=== PATIENT | female | born 1950 | race Caucasian/White ===

== ENCOUNTER 2024-09-18 10:22 | Observation (INO) | payer MEDICARE, BC, SELFPAY ==
[2024-09-07 08:38] LABS: Absolute Lymphocyte Count 0.54 X10^3/uL (0.83-4.51); Absolute Neutrophil Count 4.3 X10^3/uL (2.0-7.7); Basophil# 0.02 X10^3/uL; Basophil% 0.4 % (0-1); Eosinophil# 0.08 X10^3/uL; Eosinophils% 1.6 % (0-5); Hematocrit 36.3 % (37-47); Hemoglobin 11.8 g/dL (12.0-15.0); Lymphocyte # 0.54 X10^3/ul (0.83-4.51); Lymphocyte % 10.5 % (19-41); Mean Corp Hgb Conc 32.5 g/dL (32-36); Mean Corpuscular Hgb 30.4 pg (27.0-32.0); Mean Corpuscular Volume 93.6 fL (81-99); Mean Platelet Vol. 10.2 fl (6.2-12.0); Monocyte% 3.9 % (0-10); NRBC Flagged by Analyzer 0 % (0-5); Neutrophil # 4.26 X10^3/uL (2.7-7.7); POSITIVE DIFFERENTIAL YES; Platelet Count 267 K/mm3 (150-450); RBC Distribution Width CV 18.5 % (11.6-14.6); RBC Distribution Width SD 62.7 fl (35.1-43.9); Red Blood Count 3.88 M/mm3 (4.2-5.4); White Blood Count 5.1 K/mm3 (4.4-11.0)
[2024-09-07 09:21] LABS: Hepatitis B Surface Antibody Nonreactive
[2024-09-07 09:34] LABS: Anion Gap 12 (5-15); BUN 30 mg/dL (4-19); BUN/Creat Ratio 32.6 RATIO (10-20); Carbon Dioxide 25.5 mmol/L (21.0-32.0); Chloride 102 mmol/L (98-108); Creatinine, Serum 0.91 mg/dL (0.70-1.20); EST Glomerular Filtration Rate 67 (>60); Glucose 71 mg/dL (70-99); HIV Nonreactive (Nonreactive); Hepatitis C Antibody Nonreactive (Nonreactive); Potassium 4.3 mmol/L (3.3-5.1); Sodium Level 139 mmol/L (133-145)
[2024-09-07 10:32] LABS: Magnesium 2.1 mg/dL (1.5-2.2)
[2024-09-07 13:10] LABS: Hemoglobin A1c 6.1 % (<=5.6)
[2024-09-08 05:07] LABS: Hepatitis A AB, Total Negative (Negative)
--- NOTE | 2024-09-10 09:53 | PAT.ANESEVAL ---
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 When Was Last Pacemaker Check QUESTION #4 FULL TEXT: You/Your Family Experience fever (hyperthermia) with Anesthesia Last Oral Intake Last Oral intake: Last Oral Intake NPO since Meds taken in AM with sips of water? 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 - space and missile defense operations: PONV - space and missile defense operations Female Yes 09/04/24 14:18 HX of Motion Sickness No 09/04/24 14:18 HX of N/V After Surgery No 09/04/24 14:18 Non-Smoker Yes 09/04/24 14:18 Duration of Surgery greater Yes 09/04/24 14:18 than 60 minutes Number of Risk Factors 3 09/04/24 14:18 PONV Score Moderate Risk 09/04/24 14:18 Height & Weight Height & Weight: Anesthesia: Height & Weight Height 5 ft 1 in 08/10/24 09:34 Respiratory Assessment Respiratory Assessment - space and missile defense operations: Respiratory Tract Infection Hx - space and missile defense operations Hx Respiratory Tract Infection No 09/04/24 14:18 STOP Sleep Apnea STOP Sleep Apnea - space and missile defense operations: STOP Sleep Apnea - space and missile defense operations Hx Hypertension Yes: CONTROLLED WITH MED 09/04/24 14:18 Hx Sleep Apnea No 09/04/24 14:18 CPAP BIPAP Do you snore loudly (louder No 09/04/24 14:18 than talking or can be heard Do you often feel tired/ No 09/04/24 14:18 fatigued/ sleepy during daytime? Has anyone observed you stop No 09/04/24 14:18 breathing during sleep? STOP Results Negative 09/04/24 14:18 QUESTION #5 FULL TEXT : Do you snore loudly (louder than talking or can be heard through closed doors)? 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 confused, unrespo /Reproduction History /Reproductive History - space and missile defense operations: /Reproductive Hx- space and missile defense operations Hx Now No 09/04/24 14:18 Gestational Age (in weeks): EDC: Hx Hx Para Hx Section SAB No 09/04/24 14:18 PFSH Medical History Wears glasses Post-menopausal Anxiety Alcohol use Dry skin dermatitis Cancer Numbness and tingling in right hand History of steroid therapy Ambulates with cane Rheumatoid arthritis Low iron Restless legs Back pain Migraine headache Blackout Constipation Difficulty swallowing History of ulceration History of IBS Gastric reflux Non-smoker Shortness of breath on exertion Hoarseness Leg cramps Hx of fracture of pelvis History of edema History of stress test Hypertension Home Medications ?Medication ?Instructions ?Recorded ?Last Taken ?Type alprazolam 0.25 mg tablet (Xanax) 0.25 mg PO QHS PRN anxiety 08/10/24 Unknown History atorvastatin 20 mg tablet (Lipitor) 20 mg PO QHS 08/10/24 Unknown History ferrous fumarate 325 mg (106 mg 325 mg PO QDAY 08/10/24 Unknown History iron) tablet furosemide 20 mg tablet 20 mg PO QAM 08/10/24 Unknown History gabapentin 300 mg capsule 300 mg PO TID 08/10/24 Unknown History lisinopril 5 mg tablet 5 mg PO QDAY 08/10/24 Unknown History meloxicam 15 mg tablet 15 mg PO QDAY 08/10/24 Unknown History nortriptyline 25 mg capsule 25 mg PO .QHS' 08/10/24 Unknown History omeprazole 40 mg capsule,delayed 40 mg PO QDAY 08/10/24 Unknown History release tramadol 50 mg tablet 50 mg PO QDAY PRN pain 08/10/24 Unknown History zoledronic acid 5 mg/100 mL in 1 ea IV .QYEAR 08/10/24 Unknown History mannitol 5 %-water intravenous piggybck (Reclast) methotrexate sodium 2.5 mg tablet 20 mg PO MO 09/04/24 Unknown History Allergy/AdvReac Type Severity Reaction Status Date / Time codeine Allergy Mild Constipatio Verified 09/07/24 09:34 n Surgical History History of lumbar spinal fusion Hx of right cataract extraction Hx of left cataract extraction History of repair of hiatal hernia History of esophagogastroduodenoscopy (EGD) Hx of colonoscopy Hx of bilateral salpingo-oophorectomy History of repair of rectocele Hx of hysterectomy Hx of arthroscopy of shoulder Hx of arthroscopy of shoulder Hx of fusion of cervical spine Hx of foot surgery Hx of total knee arthroplasty Hx of total hip arthroplasty Social History Smoking Status: Never smoker Audit: Pertinent Findings Pertinent Findings EKG Perinent findings: September 07, 2024. Normal sinus rhythm. Minimal voltage criteria for LVH. Recommendation Anesthesia Recommendation Anesthesia recommendation: OPTIMIZED for anesthesia
--- NOTE | 2024-09-10 09:53 | PAT.ANESEVAL ---
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 When Was Last Pacemaker Check QUESTION #4 FULL TEXT: You/Your Family Experience fever (hyperthermia) with Anesthesia Last Oral Intake Last Oral intake: Last Oral Intake NPO since Meds taken in AM with sips of water? 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 Has anyone observed you stop No 09/04/24 14:18 breathing during sleep? STOP Results Negative 09/04/24 14:18 QUESTION #5 FULL TEXT : Do you snore loudly (louder than talking or can be heard through closed doors)? 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: /Reproductive Hx- commission auditor Hx Now No 09/04/24 14:18 Gestational Age (in weeks): EDC: Hx Hx Para Hx Section SAB No 09/04/24 14:18 PFSH Medical History Wears glasses Post-menopausal Anxiety Alcohol use Dry skin dermatitis Cancer Numbness and tingling in right hand History of steroid therapy Ambulates with cane Rheumatoid arthritis Low iron Restless legs Back pain Migraine headache Blackout Constipation Difficulty swallowing History of ulceration History of IBS Gastric reflux Non-smoker Shortness of breath on exertion Hoarseness Leg cramps Hx of fracture of pelvis History of edema History of stress test Hypertension Home Medications ?Medication ?Instructions ?Recorded ?Last Taken ?Type alprazolam 0.25 mg tablet (Xanax) 0.25 mg PO QHS PRN anxiety 08/10/24 Unknown History atorvastatin 20 mg tablet (Lipitor) 20 mg PO QHS 08/10/24 Unknown History ferrous fumarate 325 mg (106 mg 325 mg PO QDAY 08/10/24 Unknown History iron) tablet furosemide 20 mg tablet 20 mg PO QAM 08/10/24 Unknown History gabapentin 300 mg capsule 300 mg PO TID 08/10/24 Unknown History lisinopril 5 mg tablet 5 mg PO QDAY 08/10/24 Unknown History meloxicam 15 mg tablet 15 mg PO QDAY 08/10/24 Unknown History nortriptyline 25 mg capsule 25 mg PO .QHS' 08/10/24 Unknown History omeprazole 40 mg capsule,delayed 40 mg PO QDAY 08/10/24 Unknown History release tramadol 50 mg tablet 50 mg PO QDAY PRN pain 08/10/24 Unknown History zoledronic acid 5 mg/100 mL in 1 ea IV .QYEAR 08/10/24 Unknown History mannitol 5 %-water intravenous piggybck (Reclast) methotrexate sodium 2.5 mg tablet 20 mg PO MO 09/04/24 Unknown History Allergy/AdvReac Type Severity Reaction Status Date / Time codeine Allergy Mild Constipatio Verified 09/07/24 09:34 n Surgical History History of lumbar spinal fusion Hx of right cataract extraction Hx of left cataract extraction History of repair of hiatal hernia History of esophagogastroduodenoscopy (EGD) Hx of colonoscopy Hx of bilateral salpingo-oophorectomy History of repair of rectocele Hx of hysterectomy Hx of arthroscopy of shoulder Hx of arthroscopy of shoulder Hx of fusion of cervical spine Hx of foot surgery Hx of total knee arthroplasty Hx of total hip arthroplasty Social History Smoking Status: Never smoker Audit: Pertinent Findings Pertinent Findings EKG Perinent findings: September 07, 2024. Normal sinus rhythm. Minimal voltage criteria for LVH. Recommendation Anesthesia Recommendation Anesthesia recommendation: OPTIMIZED for anesthesia
[2024-09-18] VITALS (21 sets, daily range): BP systolic 96–172; BP diastolic 62–115; PULSE 55–89; RESP 14–20; TEMP 35.8–36.9; O2SAT 2–99; BMI 37.9
--- OUTSIDE RECORDS SUMMARY | 2024-09-18 05:48 | XMS RPT_ITS | CCD ---
Author Organization [facility] Informat ion Partnership [facility] Care Team Providers Care Front End Java Developer Name Role Phone Jasmine Mathias Unavailable Jasmine Mathias Unavailable Antwan Manchester R Unavailable Unavailable Antwan, Delvis R Unavailable Unavailable Antwan, Delvis R Unavailable Unavailable Antwan, Delvis R Unavailable Unavailable Antwan, Manchester R Unavailable Unavailable Antwan Manchester R Unavailable Unavailable Jasmine Mathias Primary Care Provider [phone] Jasmine Mathias Unavailable Unavailable Jasmine Mathias Unavailable Unavailab le Jasmine Mathias Primary Care Provider Jasmine Mathias Unavailable Jasmine Lao Unavailable Savannah Conwaydoroteo Tucker Unavailable [phone] Anais Lugo Unavailable Unavailable Lora Chisholm Unavailable Unavailable Jasmine Mathias Primary Care Provider [phone] Jasmine Mathias Primary Care Provider Jasmine Mathias Unavailable Jasmine Lao Unavailable Jasmine Mathias Unavailable Unavailable Unavailable Jasmine Mathias Unavailable Anders Pierce I Unavailable Unavailable Edison Bartlett Unavailable Jasmine Mathias MD Primary Care Provid er Vic TATUM, Jasmine Ray Unavailable Shilo TATUM, Jasmine Mcclain Unavailable Man TATUM, Caryn Ceballos Unavailable Shilo TATUM, Jasmine Mcclain Unavailable Man TATUM, Caryn Ceballos Unavailable FloragualbertoNena Unavailable Unavailable Vic TATUM, Jasmine Ray Primary Care Provid er Vic TATUM, Jasmine Ray Unavailable Shilo TATUM, Jasmine Mcclain Unavailable Man TATUM, Caryn Ceballos Unavailable Jasmine Mathias MD Primary Care Provider Vic TATUM, Jasmine Ray Primary Care Provid er Vic TATUM, Jasmine Ray Unavailable Shilo ATTUM, Jasmine Mcclain Unavailable Man TATUM, Caryn Ceballos Unavailable Jasmine Mathias MD Primary Care Provider Jasmine Mathias MD Unavailable Dr. Corby Jacobs Attending Unavail able Reynaldo, Dr. Corby Moncada Referring Unavail able Vic, Dr. Jasmine Ray Primary Care Un available Vic, Dr. Jasmine Ray Primary Care Un available Reynaldo, Dr. Corby Moncada Attending Unavail able Reynaldo, Dr. Corby Moncada Referring Unavail able Reynaldo, Dr. Corby Moncada Attending Unavail able Vic, Dr. Jasmine Ray Primary Care Un available Vic, Dr. Jasmine Ray Referring Un available Vic, Dr. Jasmine Ray Attending Un available Vic, Dr. Jasmine Ray Referring Un available Vic, Dr. Jasmine Ray Primary Care Un available Vic, Dr. Jasmine Ray Attending Un available Vic, Dr. Jasmine Ray Referring Un available Long[place], Dr. Jasmine Ray Primary Care Un available [place], Dr. Jasmine Ray Primary Care Un available Jacobs, Dr. Corby Moncada Attending Unavail able Jacobs, Dr. Corby Moncada Referring Unavail able [place], Dr. Jasmine Ray Primary Care Un available [place], Dr. Jasmine Ray Primary Care Un available [place], Dr. Jasmine Ray Attending Un available Kamenik, Ms. Nena Sutherland Attending [facility]. Jasmine Ray Primary Care Un available Kamenik, MsMike Sutherland Attending [facility], Ms. Nena Sutherland Ref[facility] Primary Care Un available [facility] J[facility] Primary Care Un available Mancilla, MsMike Herrera Attending [facility] Mancilla, Ms. Mauricio Herrera Referring U navailable [facility], Dr. Jasmine Ray Primary Care Un available Mancilla, MsMike Herrera Attending U navailable [facility], Dr. Jasmine Ray Attending Un available [place], Dr. Jasmine Ray Primary Care Un available Kamenik, Ms. Nena Sutherland Attending [facility], Dr. Jasmine Ray Primary Care Un available Kamenik, Ms. Nena Sutherland [facility]ending [facility] J[facility] Ray Primary Care Un available [facility] Primary Care Un available Mancilla, MsMike Herrera Attending U navailable Darmfadi, Dr. Mary Carmen Tavarez Admitting [facility], Dr. Mary Carmen Tavarez Attending [facility] Mathias, Dr. Jasmine Ray Primary Care Un available [place], Dr. Jasmine Rya Attending Un available [facility] J[facility] Ray Primary Care Un available RODERICK JETER Referring Unavaila ble VIC, JASMINE RAY Primary Care SKYE Strickland Attending Unavailabl e RODERICK JETER Admitting Unavaila ble THRUSH, BECKIE REYES Attending Unavailable LONGSDTHERESE, JASMINE RAY Primary Care Jie MONCADA, DELVIS RAY Admitting Unavailable LONGROSALVA, JASMINE RAY Primary Care Jie MONCADA, DELVIS RAY Attending Unavailable ANTWAN DELVIS RAY Referring Unavailable RODERICK JETER Attending Unavaila ble LONGSDTHERESE, JASMINE RAY Primary Care RODERICK Juarez Admitting Unavaila ble LONGROSALVA, JASMINE RAY Primary Care Jie MONCADA, DELVIS RAY Admitting Unavailable ANTWAN DELVIS PERNELL Attending Unavailable RODERICK JETER Referring Unavaila RODERICK Shaikh Attending Unavaila ble VIC, JASMINE RAY Primary Care Jasmine Da Silva MD Primary Care Provider Jasmine Mathias MD Unavailable Sukh TATUM, Bryan Unavailable Jasmine Mathias MD Primary Care Provider Sukh TATUM, Bryan Unavailable BRYAN LUZ Referring Unavailable LONGSDORF, JASMINE A Primary Care Unavailab le LONGSDTHERESE, JASMINE Referring Unavailable LONGSDORF, JASMINE Primary Care Unavailable MARY CARMEN TOVAR Attending Unavailable Avelino HORNE, Della Unavailable Unavailable Jasmine Mathias MD Unavailable Bryan Luz MD Unavailable Jasmine Mathias MD Primary Care Provider Avelino HORNE, Della Unavailable Unavailable Sukh TATUM, Bryan Unavailable Jasmine Mathias MD Unavailable LONGSDORF, JASMINE A Primary Care Unavailab le LONGSDORF, JASMINE A Primary Care Unavailab le LONGSDORF, JASMINE A Primary Care Unavailab le LONGSDORF, JASMINE A Primary Care Unavailab le BRYAN LUZ Referring Unavailable LONGSDORF, JASMINE A Primary Care Unavailab le LONGSDORF, JASMINE A Primary Care Unavailab SORAYA Persaud Referring Unavailable LONGSDORF, JASMINE A Primary Care Unavailab kirti TOVARMARY CARMEN Referring Unavailable JOYMARY CARMEN ZIMMERMAN Attending Unavailable VIC, JASMINE Primary Care Unavailable Vic TATUM, Dr. Andre Primary Care Provide r Vic TATUM, Dr. Andre Referring Provider Carolyn Peck Attending Provider Kristyn TATUM, Dr. Escalera Attending Provider [phone] Bakari TATUM, Dr. Rodrigez Attending Provider [phone] VIC, JASMINE A Attending Unavailab le LONGSDORF, JASMINE A Referring Unavailab le LONGSDORF, JASMINE A Primary Care Unavailab BRYAN Zamudio Attending Unavailable MAURICIO MANCILLA Referring Unavailable LONGSDORF, JASMINE A Primary Care Unavailab le LONGSDORF, JASMINE A Attending Unavailab le LONGSDORF, JASMINE A Primary Care Unavailab le SDORF, JASMINE A Attending Unavailab le LONGSDORF, JASMINE A Primary Care Unavailab le LONGSDORF, JASMINE A Attending Unavailab le LONGSDORF, JASMINE A Primary Care Unavailab le SDORF, JASMINE A Attending Unavailab le LONGSDORF, JASMINE A Referring Unavailab le LONGSDORF, JASMINE A Primary Care Unavailab le LONGSDORF, JASMINE A Attending Unavailab le LONGSDORF, JASMINE A Primary Care Unavailab le LONGHIORF, JASMINE A Attending Unavailab le LONGSDORF, JASMINE A Primary Care Unavailab SORAYA Persaud Attending Unavailable LONGSDORF, JASMINE A Referring Unavailab le LONGSDORF, JASMINE A Primary Care Unavailab le LONGSDORF, JASMINE A Attending Unavailab le LONGSDORF, JASMINE A Primary Care Unavailab le JORDAN ESPINOZA Admitting Unavailable JORDAN ESPINOZA Referring Unavailable LONGSDORF, JASMINE RAY Primary Care BAR Marquez JR. Attending Unavailable VIC, JASMINE RAY Primary Care Jie MATHIAS, JASMINE RAY Primary Care MANUELA Hough Attending Unavail able KONG JR., BAR Admitting Unavailable KONG JR., BAR Referring Unavailable LONGSDORF, JASMINE FLOR Primary Care Unaosvaldo TRIANA JR., BAR Attending Unavailable LONGSDORF, JASMINE FLOR Primary Care UnaJORDAN North Attending Unavailable LONGSDORF, JASMINE FLOR Primary Care Unavai lable Longsdorf, Jasmine Primary Care Unavailable Longsdorf, Jasmine Referring Unavailable Elia Villegas Attending Unavailable Longsdorf, Jasmine Primary Care Unavailable Longsdorf, Jasmine Referring Unavailable Carolyn Tabares Attending Unavailable Longsdorf, Jasmine Primary Care Unavailable Elia Villegas Referring Unavailable Kenneth Alexandre Attending Unavailable Longsdorf, Jasmine Primary Care Unavailable Elia Villegas Attending Unavailable Elia Villegas Referring Unavailable Lencho Mancia Unavailable Longsdorf, Jasmine Primary Care Unavailable Jw Simons Attending Unavailable LONGSDORF, JASMINE A Referring Unavailab le LONGSDORF, JASMINE A Primary Care Unavailab SMITH Casarez Attending Unavailable MAURICIO MANCILLA Referring Unavailable LONGSDORF, JASMINE A Primary Care Unavailab CELESTE Eagle Attending Unavailable LONGSDORF, JASMINE A Primary Care Unavailab le LONGSDORF, JASMINE A Referring Unavailab le LONGSDORF, JASMINE A Primary Care Unavailab le LONGSDORF, JASMINE A Referring Unavailab le LONGSDORF, JASMINE A Primary Care Unavailab CELESTE Eagle Attending Unavailable CELESTE MORAN Referring Unavailable LONGSDORF, JASMINE A Primary Care Unavailab CELESTE Eagle Referring Unavailable LONGSDORF, JASMINE A Primary Care Unavailab MARY CARMEN Mack Referring Unavailabl e LONGSDORF, JASMINE A Primary Care Unavailab le LONGSDORF, JASMINE A Primary Care Unavailab MARY CARMEN Mack Referring Unavailabl e LONGSDORF, JASMINE A Primary Care Unavailab SANJUANA Porter Attending Unavailable MAURICIO MANCILLA Attending Unavailable LONGSDORF, JASMINE A Primary Care Unavailab le MAURICIO MANCILLA Attending Unavailable LONGSDORF, JASMINE A Primary Care Unavailab le DONATINI, EMEKA M Attending Unavailable LUZ, XIAOFEI Referring Unavailable LUZ, XIAOFEI Referring Unavailable LONGSDORF, JASMINE A Primary Care Unavailab le LONGSDORF, JASMINE A Referring Unavailab le LONGSDORF, JASMINE A Primary Care Unavailab le LONGSDORF, JASMINE A Referring Unavailab le LONGSDORF, JASMINE A Primary Care Unavailab le LONGSDORF, JASMINE A Primary Care Unavailab SHWETA Youssef Attending Unavailable LUZ, XIAOFEI Referring Unavailable LONGSDORF, JASMINE A Primary Care Unavailab le LUZ, XIAOFEI Referring Unavailable LONGSDORF, JASMINE A Primary Care Unavailab le LUZ, XIAOFEI Referring Unavailable LONGSDORF, JASMINE A Primary Care Unavailab le LUZ, XIAOFEI Referring Unavailable LONGSDORF, JASMINE A Primary Care Unavailab le LUZ, XIAOFEI Referring Unavailable LONGSDORF, JASMINE A Primary Care Unavailab le LUZ, XIAOFEI Referring Unavailable LONGSDORF, JASMINE A Primary Care Unavailab MAURICIO Holguin Attending Unavailable LONGSDORF, JASMINE A Primary Care Unavailab le LUZ, XIAOFEI Referring Unavailable LONGSDORF, JASMINE A Primary Care Unavailab le LONGSDORF, JASMINE A Referring Unavailab le LONGSDORF, JASMINE A Primary Care Unavailab le LONGSDORF, JASMINE A Referring Unavailab le LONGSDORF, JASMINE A Primary Care Unavailab MAURICIO Holguin Attending Unavailable LONGSDORF, JASMINE A Primary Care Unavailab le LONGSDORF, JASMINE A Primary Care Unavailab NENA Abad Attending Unavailable Allergies Allergy Classification Reported Allergen(s) Allergy Type Date of Onset Reaction(s) Facility Amoxicillin / Clavulanate (9 sources) Amoxicillin / Clavulanate; Translations: [Augmentin] Drug Allergy 07-20-19 23 Unknown [facility] and Work Phone: Opioid Agonists (20 sources) Codeine; Translations: [codeine] Drug Allergy 05-26-19 16 Other, Unknown [facility] and Work Phone: (20 sources) codeine; Translations: [codeine] Propensity to adverse reactions to drug 05-05-20 04 Other, Other (See Comments), Drug-induced constipation with proper administration [facility] (20 sources) morphine; Translations: [morphine] Propensity to adverse reactions to drug 05-26-19 16 Unknown [facility] (20 sources) Amoxicillin / Clavulanate; Translations: [Augmentin] Drug Allergy Unknown [facility] Work Phone: (20 sources) Amoxicillin / Clavulanate; Translations: [AMOXICILLIN-PO T CLAVULANATE] Drug Allergy 05-26-19 16 Unknown [facility] Work Phone: (1 source) Codeine Drug Allergy 09-08-19 25 [facility] Repository Medications Current Medications Medication Drug Class(es) Dates Sig (Normalized) Sig (Original) 1.56 ml abaloparatide 2 mg/ml pen injector (1 source) Parathyroid Hormone-Related Peptide Analog Start: 02-03-2023 inject 80 ug by subcutaneous injection once daily Abaloparatide (Tymlos) 3120 MCG/1.56ML Solution Pen-injector Inject 80 mcg under the skin daily. 1.56 mL 02/03/2023 Active 8 hr acetaminophen 650 mg extended release oral tablet (20 sources) take 2 tablets by mouth every eight hours as needed acetaminophen (Tylenol 8 HOUR) 650 mg ER tablet Take 2 tablets (1,300 mg) by mouth every 8 hours if needed for mild pain (1 - 3). Do not crush, chew, or split. Active take 1 tablet by emily th every eight hours as needed acetaminophen (Tylenol 8 HOUR) 650 mg ER tablet Take 1 tablet (650 mg) by mouth every 8 hours if needed for mild pain (1 - 3). Do not crush, chew, or split. Active acetaminophen 325 mg / oxyCODONE hydrochloride 5 mg oral tablet (12 sources) Opioid Agonist Start: 01-13-2023 End: 05-13-2023 take 1 tablet by mouth every four hours as needed oxyCODONE-acetaminophen (Percocet) 5-325 mg tablet Take 1 tablet by mouth every 4 hours if needed. 0 01/13/2023 05/13/2023 Discontinued (Therapy completed) Start: 01-05-2023 End: 01-20-2023 take 1 tablet by mouth every six hours as needed for pain oxyCODONE-acetaminophen (PERCOCET) 5-325 mg per tablet Indications: Post-op pain Take 1 (one) tablet by mouth every 6 (six) hours as needed for pain . 28 tablet 0 01/13/2023 01/20/2023 Active [id number] 200 actuat albuterol 0.09 mg/actuat metered dose inhaler (20 sources) beta2-Adrenergic Agonist Start: 05-18-2024 take 1-2 puff(s) by inhalation every four hours for wheezing albuterol 90 mcg/actuation inhaler Indications: Viral URI with cough Inhale 1-2 puffs every 4 hours if needed for wheezing or shortness of breath. 8.5 g 05/18/2024 Active Start: 05-07-2024 End: 05-07-2025 take 2 puff(s) by inhalation every six hours for wheezing albuterol 90 mcg/actuation inhaler Indications: Acute bronchitis, unspecified organism Inhale 2 puffs every 6 hours if needed for wheezing. 18 g 05/07/2024 05/21/2024 Discontinued (Med List Cleanup) Start: 12-30-2023 take 1-2 puff(s) by inhalation every four hours for wheezing albuterol 90 mcg/actuation inhaler Indications: Viral URI with cough Inhale 1-2 puffs every 4 hours if needed for wheezing or shortness of breath. 8.5 g 12/30/2023 Active Start: 03-26-2021 take 2 puff(s) by in halation twice daily as needed for cough albuterol 90 mcg/inh inhalation aerosol ; 2 puff(s) inhaled 2 times a day as needed for cough Quantity: 8.5 Refills: 0 Ordered: 26-Mar-2021 Nena Aguilar Start: 26-Mar-2021 Generic Substitution Allowed Comments: For inhalation only.It is very important that you take or use this exactly as directed. Do not skip doses or discontinue unless directed by your doctor.Obtain medical advice before taking any non-prescription drugs as some may affect the action of this medication.Shake well before use. Start: 03-26-2021 End: 11-10-2022 albuterol 90 mcg/actuation i nhaler Inhale twice a day. 0 03/26/2021 11/10/2022 Discontinued (Therapy completed) End: 12-30-2023 take 2 puff(s) by inhalation twice daily as needed albuterol 90 mcg/actuation inhaler Inhale 2 puffs 2 times a day as needed. 12/30/2023 Discontinued (Med List Cleanup) Albuterol 90 MCG /ACT AERS Quantity: 0 Refills: 0 Ordered: 16-Dec-2022 DO Active Comment on above: For inhalation only. It is very important that you take or use this exactly as directed. Do not skip doses or discontinue unless directed by your doctor.Obtain medical advice before taking any non-prescription drugs as some may affect the action of this medication.Shake well before use. ALPRAZolam 0.25 mg oral tablet (20 sources) Benzodiazepine Start: 10-07-19 End: 11-10-19 take 1 tablet by mouth at bedtime as needed for anxiety Alprazolam (Xanax) 0.25 mg tablet Active 0.25 mg PO AT BEDTIME as needed for anxiety August 10, 2024 12:00am take 1 tablet by emily th three times daily ALPRAZolam 0.25 mg oral tablet ; 1 tab(s ) orally 3 times a day Quantity: 0 Refills: 0 Ordered: 27-Apr-2019 Emmie Rosario Generic Substitution Allowed apixaban 2.5 mg oral tablet (17 sources) Factor Xa Inhibitor Start: 01-05-2023 End: 03-05-2023 take 1 tablet by mouth twice daily apixaban (Eliquis) 2.5 mg Tab Take 1 (one) tablet (2.5 mg total) by mouth 2 (two) times a day . 60 tablet 02/03/2023 Active atorvastatin 20 mg oral tablet (20 sources) HMG-CoA Reductase Inhibitor Start: 04-08-2015 take 1 tablet by mouth once daily in the morning atorvastatin (LIPITOR) 20 MG tablet Take 1 (one) tablet (20 mg total) by mouth daily AM . 04/08/2015 Active azithromycin 250 mg oral tablet (20 sources) Macrolide Antimicrobial Start: 05-18-2024 End: 05-23-2024 azithromycin (Zithromax) 250 mg tablet Indications: Acute bronchitis, unspecified organism Take 2 tablets (500 mg) by mouth once daily for 1 day, THEN 1 tablet (250 mg) once daily for 4 days. Take 2 tabs (500 mg) by mouth today, than 1 daily for 4 days.. 6 tablet 05/18/2024 05/23/2024 Active Start: 05-07-2024 End: 05-12-2024 azithromycin (Zithromax Z-Pa k) 250 mg tablet Indications: Acute bronchitis, unspecified organism Take 2 tablets (500 mg) on Day 1, followed by 1 tablet (250 mg) once daily on Days 2 through 5. 6 tablet 05/07/2024 05/12/2024 Active Start: 12-30-2023 End: 01-30-2024 azithromycin (Zithromax Z-Pa k) 250 mg tablet Indications: Viral URI with cough Take 2 tablets by mouth at once on day 1, then 1 tablet once a day on days 2-5. Take with a meal. 6 tablet 12/30/2023 01/30/2024 Discontinued (Therapy completed) Start: 08-15-2023 End: 08-20-2023 azithromycin (Zithromax) 250 mg tablet Indications: Acute sinusitis, recurrence not specified, unspecified location Take 2 tablets (500 mg) by mouth once daily for 1 day, THEN 1 tablet (250 mg) once daily for 4 days. Take 2 tabs (500 mg) by mouth today, than 1 daily for 4 days.. 6 tablet 08/15/2023 08/20/2023 Active Start: 12-21-2022 azithromycin ( ZITHROMAX) 250 MG tablet Start: 12-21-2022 End: 12-26-2022 azithromycin (Zithromax) 250 mg tablet Indications: Acute sinusitis, recurrence not specified, unspecified location Take 2 tablets (500 mg) by mouth once daily for 1 day, THEN 1 tablet (250 mg) once daily for 4 days. Take 2 tabs (500 mg) by mouth today, than 1 daily for 4 days.. 6 tablet 0 12/21/2022 12/26/2022 Active Start: 12-08-2022 End: 12-13-2022 take 1 tablet by mouth once daily azithromycin (Zithromax) 500 mg tablet Indications: Seasonal allergies Take 1 tablet (500 mg) by mouth once daily for 5 days. 5 tablet 0 12/08/2022 12/13/2022 Active Start: 05-10-2022 take 2 tablets by mo [facility] once, then take 1 tablet by mouth once daily azithromycin 250 mg oral tablet ; Take 2 tabs (500mg) x 1 days, then 1 tab (250mg) once daily x 4 days Quantity: 6 Refills: 0 Ordered: 10-May-2022 Nena Aguilar Start: 10-May-2022 Generic Substitution Allowed Comments: Do not take dairy products, antacids, or iron preparations within one hour of this medication.Finish all this medication unless otherwise directed by prescriber. Start: 02-17-2022 Azithromycin 2 50 MG Oral Tablet TAKE DIRECTED PER PACKAGE INSTRUCTIONS. Quantity: 1 Refills: 0 Ordered: 17-Feb-2022 Jasmine Mathias MD Start : 17-Feb-2022 Active Start: 05-25-2021 take 1 tablet by mouth once Az ithromycin 250 MG Oral Tablet TAKE DIRECTED PER PACKAGE INSTRUCTIONS. Quantity: 1 Refills: 0 Ordered: 26-Jun-2021 Jasmine Mathias MD Start : 25-May-2021 Active Start: 05-25-2021 Azithromycin 2 50 MG Oral Tablet TAKE DIRECTED PER PACKAGE INSTRUCTIONS. Quantity: 1 Refills: 0 Ordered: 25-May-2021 Jasmine Mathias MD Start : 25-May-2021 Active Start: 02-16-2021 Azithromycin 2 50 MG Oral Tablet TAKE DIRECTED PER PACKAGE INSTRUCTIONS. Quantity: 1 Refills: 0 Ordered: 16-Feb-2021 Jasmine Mathias MD Start : 16-Feb-2021 Active Comment on above: Do not take dairy pr oducts, antacids, or iron preparations within one hour of this medication.Finish all this medication unless otherwise directed by prescriber. benzonatate 200 mg oral capsule (20 sources) Non-narcotic Antitussive Start: 05-07-19 End: 05-21-19 take 1 capsule by mouth three times daily as needed for cough benzonatate (Tessalon) 200 mg capsule Indications: Acute bronchitis, unspecified organism Take 1 capsule (200 mg) by mouth 3 times a day as needed for cough for up to 7 days. Do not crush or chew. 20 capsule 05/07/2024 05/21/2024 Discontinued (Med List Cleanup) Start: 12-30-2023 End: 01-30-2024 take 1-2 capsules by mouth every eight hours for cough benzonatate (Tessalon) 100 mg capsule Indications: Viral URI with cough Take 1-2 capsules (100-200 mg) by mouth every 8 hours if needed for cough. Do not crush or chew. 60 capsule 01/30/2024 Active betamethasone 0.5 mg/ml / clotrimazole 10 mg/ml topical cream (2 sources) Azole Antifungal, Corticosteroid Start: 11-25-2020 End: 11-25-2021 clotrimazole-betamethasone (LOTRISONE) cream Apply topically 2 (two) times a day . 30 g 3 11/25/2020 11/25/2021 Active Start: 04-10-2019 Clotrimazole-B etamethasone 1-0.05 % External Cream APPLY CREAM TO AFFECTED AREA TWICE DAILY FOR 14 DAYS Quantity: 45 Refills: 0 Ordered: 21-Nov-2019 DO Start : 10-Apr-2019 Complete bifidobacterium infantis 4 mg oral capsule (1 source) Start: 09-10-2024 End: 10-10-2024 take 1 capsule by mouth once daily Bifidobacterium infantis (ALIGN) 4 mg capsule Indications: Gastroenteritis Take 1 capsule (4 mg) by mouth once daily. 30 capsule 09/10/2024 10/10/2024 Active calcitonin,salmon,synthet ic (CALCITONIN, SALMON, NASL) (13 sources) End: 11-26-2021 calcitonin,salmon,synthe tic (CALCITONIN, SALMON, NASL) Instill into each nostril. 0 11/26/2021 Discontinued (Therapy completed) calcitonin,salmo n,synthetic (CALCITONIN, SALMON, NASL) Instill into each nostril. 0 Active calcitonin,salmo n,synthetic (CALCITONIN, SALMON, NASL) Instill into each nostril. Active calcium carbonate 1000 mg oral tablet (10 sources) take 1000 mg by mout h once daily calcium carbonate (CALCIUM 500 ORAL) Take 1,000 mg by mouth once daily. Active take 1000 mg by mouth twice chance y calcium carbonate (CALCIUM 500 ORAL) Take 1,000 mg by mouth 2 times a day. Active clopidogrel 75 mg oral tablet (2 sources) P2Y12 Platelet Inhibitor take 1 tablet by mouth once daily clopidogrel 75 mg oral tablet ; 1 tab(s) orally once a day Quantity: 0 Refills: 0 Ordered: 27-Apr-2019 Emmie Rosario Status: Other Generic Substitution Allowed cyclobenzaprine hydrochloride 10 mg oral tablet (20 sources) Muscle Relaxant Start: 10-01-19 End: 07-17-19 take 1 tablet by mouth three times daily as needed for muscle spasms cyclobenzaprine (Flexeril) 10 mg tablet Indications: Right hip pain Take 1 tablet (10 mg) by mouth 3 times a day as needed for muscle spasms. 90 tablet 2 07/16/2024 Active Start: 02-20-2018 cyclobenzaprin e (FLEXERIL) 10 MG tablet Take 0.5 Unspecified by mouth PRN . 02/20/2018 Active diazePAM 5 mg oral tablet (9 sources) Benzodiazepine Start: 04-11-2024 End: 05-21-2024 take 1 tablet by mouth once diazePAM (Valium) 5 mg tablet Indications: Lumbosacral radiculopathy Take 1 tablet (5 mg) by mouth 1 time for 1 dose. One hour before procedure. NEEDS A GRANULATING MACHINE OPERATOR TO AND FROM PROCEDURE 1 tablet 04/11/2024 05/21/2024 Discontinued (Med List Cleanup) Start: 01-25-2023 End: 05-13-2023 take 1 tablet by mouth once diazePAM (Valium) 5 mg tab let Indications: Cervical neuritis , Chronic pain syndrome Take 1 tablet (5 mg) by mouth 1 time for 1 dose. One hour before procedure 1 tablet 0 01/25/2023 05/13/2023 Discontinued (Therapy completed) diclofenac sodium 0.01 mg/mg topical gel (6 sources) Nonsteroidal Anti-inflammatory Drug Start: 07-10-2024 diclofenac sodium (Voltaren) 1 % gel Indications: osteoarthritis Apply topically to effected area for PAIN, STIFFNESS, AND SWELLING. 100 g 1 07/10/2024 Active esomeprazole 40 mg delayed release oral capsule (8 sources) Proton Pump Inhibitor esomeprazo le [address] capsule Take 40 mg by mouth. 0 Active ferrous fumarate 325 mg oral tablet (3 sources) Start: 08-10-2024 take 1 tablet by mouth once daily Ferrous Fumarate 325 mg (106 mg iron) tablet Active 325 mg PO daily August 10, 2024 12:00am ferrous sulfate 325 mg delayed release oral tablet (20 sources) Start: 01-23-2018 take 1 tablet by mouth every other day ferrous sulfate 325 (65 Fe) MG EC tablet Take 1 tablet by mouth every other day. Every other day 01/23/2018 Active Start: 01-23-2018 take 1 tablet by emily th every other day ferrous sulfate 325 (65 Fe) MG EC tablet Take 1 tablet (65 mg) by mouth every other day. Every other day 0 01/23/2018 Active Start: 12-26-2017 End: 03-04-2023 take 1 tablet by mouth every twenty-four hours ferrous sulfate 325 (65 FE) MG EC tablet Take 1 Unspecified by mouth daily AFTERNOON . 01/23/2018 Active folic acid 1 mg oral tablet (20 sources) Start: 01-24-2019 folic acid (FO LVITE) 1 MG tablet Take by mouth AFTERNOON . 01/24/2019 Active Start: 01-24-2019 Folic Acid 1 M G Oral Tablet as directed by Dr Chisholm Quantity: 30 Refills: 0 Ordered: 24-Jan-2019 Jasmine Mathias MD Start : 24-Jan-2019 Active furosemide 20 mg oral tablet (20 sources) Loop Diuretic Start: 12-15-2023 End: 05-14-2024 take 1 tablet by mouth once daily in the morning Furosemide 20 mg tablet Active 20 mg PO EVERY MORNING August 10, 2024 12:00am Start: 06-20-2023 End: 11-10-2023 take 1 tablet by mouth once daily furosemide (Lasix) 20 mg tablet Indications: Edema, unspecified type Take 1 tablet (20 mg) by mouth once daily. 90 tablet 1 11/10/2023 Active Start: 02-01-2022 End: 05-13-2023 take 1 tablet by mouth three times daily as needed furosemide (Lasix) 20 mg tablet Take 1 tablet (20 mg) by mouth 3 times a day as needed (for swelling). 0 02/01/2022 05/13/2023 Discontinued (Reorder) Start: 08-15-2015 End: 11-26-2021 take 1 tablet by mouth once daily furosemide (Lasix) 20 mg tablet Indications: Edema, unspecified type Take 1 tablet (20 mg) by mouth once daily. 90 tablet 1 05/13/2023 Active gabapentin 300 mg oral capsule (20 sources) Anti-epileptic Agent Start: 08-10-2024 take 1 capsule by mouth three times daily Gabapentin 300 mg capsule Active 300 mg PO THREE TIMES A DAY August 10, 2024 12:00am Start: 07-16-2024 take 1 tablet by emily th three times daily gabapentin (Neurontin) 600 mg tablet Indications: Neurogenic claudication due to lumbar spinal stenosis , Lumbosacral radiculopathy Take 1 tablet (600 mg) by mouth 3 times a day. 90 tablet 2 07/16/2024 Active Start: 06-25-2024 End: 07-16-2024 take 1 tablet by mouth three times daily gabapentin (Neurontin) 800 mg tablet Indications: Neurogenic claudication due to lumbar spinal stenosis , Lumbosacral radiculopathy Take 1 tablet (800 mg) by mouth 3 times a day. 90 tablet 2 06/25/2024 07/16/2024 Discontinued (Reorder) Start: 09-22-2023 End: 12-27-2023 gabapentin (Neurontin) 300 m g capsule Indications: Degenerative disc disease, lumbar , Other chronic pain TAKE 2 TABS QAM, 2 TABS IN AFTERNOON, AND 3 AT BEDTIME 540 capsule 09/22/2023 12/27/2023 Discontinued (Therapy completed) Start: 04-05-2023 End: 07-26-2023 take 2 capsules by mouth twice daily gabapentin (Neurontin) 300 mg capsule Indications: Degenerative disc disease, lumbar , Other chronic pain Take 2 capsules (600 mg) by mouth 2 times a day. 360 capsule 1 04/05/2023 07/26/2023 Discontinued (Reorder) Start: 03-26-2015 End: 09-22-2023 take 2 capsules by mouth three times daily gabapentin (NEURONTIN) 300 MG capsule Take 2 (two) capsules (600 mg total) by mouth 3 (three) times a day . 03/26/2015 Active Start: 03-26-2015 End: 02-17-2024 gabapentin 300 MG Cap capsul e Take 1 capsule by mouth. 03/26/2015 02/17/2024 Discontinued gabapentin 300 m g oral capsule ; orally 4 times a day Quantity: 0 Refills: 0 Ordered: 27-Apr-2019 Emmie Rosario Generic Substitution Allowed 2 ml sodium hyaluronate 10 mg/ml prefilled syringe (2 sources) Start: 01-05-2022 End: 11-10-2022 sodium hyaluronate (Euflexxa) 10 mg/mL(mw 2.4 -3.6 million) injection Inject into the joint. 0 01/05/2022 11/10/2022 Discontinued (Therapy completed) leucovorin 15 mg oral tablet (20 sources) Folate Analog Start: 01-24-2019 End: 11-10-2022 leucovorin (Wellcovorin) 15 mg tablet Start: 01-24-2019 Leucovorin Toyin cium 15 MG Oral Tablet USE DIRECTED. Quantity: 30 Refills: 0 Ordered: 24-Jan-2019 Jasmine Mathias MD Start : 24-Jan-2019 Active lisinopril 5 mg oral tablet (20 sources) Angiotensin Converting Enzyme Inhibitor Start: 03-29-2015 take 1 tablet by mouth once daily in the morning lisinopril (PRINIVIL,ZESTRIL) 5 MG tablet Take 1 (one) tablet (5 mg total) by mouth daily AM . 03/29/2015 Active meloxicam 15 mg oral tablet (20 sources) Nonsteroidal Anti-inflammatory Drug Start: 04-03-2018 End: 11-10-2023 take 1 tablet by mouth once daily Meloxicam 15 mg tablet Active 15 mg PO daily August 10, 2024 12:00am methotrexate 2.5 mg oral tablet (20 sources) Folate Analog Metabolic Inhibitor Start: 09-04-2024 Methotrexate Sodium 2.5 mg tablet Active 20 mg PO MO September 04, 2024 12:00am Start: 08-10-2024 End: 09-04-2024 take 2.5 mg by mouth every week Methotrexate 2.5 mg/mL solution Discontinued 2.5 mg PO EVERY WEEK August 10, 2024 12:00am September 04, 2024 2:12pm Start: 01-24-2019 End: 11-10-2022 methotrexate (Trexall) 2.5 m g tablet Take by mouth. 0 01/24/2019 11/10/2022 Discontinued (Therapy completed) Start: 01-24-2019 Methotrexate 2 .5 MG TABS as directed by Dr Chisholm Quantity: 30 Refills: 0 Ordered: 24-Jan-2019 Jasmine Mathias MD Start : 24-Jan-2019 Active take 8 tablets by [facility] every week methotrexate (Trexall) 2.5 mg tablet Take 8 tablets (20 mg total) by mouth 1 (one) time per week. Follow directions carefully, and ask to explain any part you do not understand. Take exactly as directed. Active take 2.5 mg by mouth once daily Methotrexate 2.5 MG/ML oral solution Take 2.5 mg by mouth daily. Active methotrexate 2.5 mg oral tablet Quantity: 0 Refills: 0 Ordered: 27-Apr-2019 Emmie Rosario Generic Substitution Allowed methylPREDNISolone (6 sources) Corticosteroid Start: 07-10-2024 methylPREDNISolone (Medrol Dospak) 4 mg tablets Indications: Right shoulder pain, unspecified chronicity , Acute pain of right shoulder Use as directed by package instructions 21 tablet 07/10/2024 Active multivitamin tablet (10 sources) take 1 tablet by mouth once daily multivitamin tablet Take 1 tablet by mouth once daily. Active naloxone hydrochloride 40 mg/ml nasal spray (11 sources) Opioid Antagonist Start: 01-05-2023 naloxone (NARCAN) 4 mg/actuation [place] Administer 1 spray into one nostril for known or suspected opioid overdose. If patient worsens or does not respond, may repeat in 2-3 minutes. . 2 each 0 01/05/2023 Active naloxone (NARCAN) 4 mg/actuation [place] (4 sources) Start: 01-05-2023 naloxone (NARCAN) 4 mg/actuation [place] Administer 1 spray into one nostril for known or suspected opioid overdose. If patient worsens or does not respond, may repeat in 2-3 minutes. . 2 each 01/05/2023 Active nortriptyline 25 mg oral capsule (20 sources) Tricyclic Antidepressant Start: 08-10-2024 take 1 capsule by mouth once daily at bedtime Nortriptyline 25 mg capsule Active 25 mg PO .[facility] August 10, 2024 12:00am Start: 05-16-2015 End: 05-13-2023 nortriptyline (Pamelor) 25 m g capsule Indications: Chronic pain syndrome TAKE 2 CAPSULES ONE TIME DAILY AT BEDTIME 180 capsule 3 08/22/2024 Active Start: 05-16-2015 nortriptyline 25 MG Cap capsule Take 1 capsule by mouth. 05/16/2015 Active nortriptyline Qu antity: 0 Refills: 0 Ordered: 27-Sep-2022 Sherly Estrada Generic Substitution Allowed omeprazole 40 mg delayed release oral capsule (20 sources) Proton Pump Inhibitor Start: 12-21-2021 End: 05-13-2023 omeprazole (PriLOSEC) [address] capsule Indications: Gastroesophageal reflux disease without esophagitis TAKE 1 CAPSULE EVERY DAY 90 capsule 3 09/05/2024 Active Omeprazole 40 MG Oral Capsule Delayed Release Quantity: 0 Refills: 0 Ordered: 16-Dec-2022 DO Active predniSONE 20 mg oral tablet (20 sources) Start: 05-07-2024 End: 05-12-2024 take 1 tablet by mouth once daily predniSONE (Deltasone) 20 mg tablet Indications: Acute bronchitis, unspecified organism Take 1 tablet (20 mg) by mouth once daily for 5 days. 5 tablet 05/07/2024 05/12/2024 Active Start: 01-30-2024 End: 02-04-2024 take 1 tablet by mouth once daily predniSONE (Deltasone) 20 mg tablet Indications: Pain of right hip , Viral URI with cough Take 1 tablet (20 mg) by mouth once daily for 5 days. 5 tablet 01/30/2024 02/04/2024 Active Start: 10-13-2020 End: 01-25-2023 take 1 tablet by mouth once daily as needed predniSONE (DELTASONE) 10 MG tablet TAKE 1 TABLET BY MOUTH ONCE DAILY NEEDED. TAKE FOR 3 TO 5 DAYS WITH A FLARE. 0 10/13/2020 Active Start: 10-13-2020 predniSONE 10 MG Oral Tablet Quantity: 30 Refills: 0 Ordered: 13-Oct-2020 DO Start : 13-Oct-2020 Active raNITIdine 150 mg oral tablet (3 sources) Histamine-2 Receptor Antagonist Start: 12-26-2017 ranitidine (ZANTAC) 150 MG tablet daily . 01/25/2018 Active 28 actuat teriparatide 0.02 mg/actuat pen injector (1 source) Parathyroid Hormone Analog Start: 02-02-2023 inject 20 ug by subcutaneous injection once daily Teriparatide, Recombinant, (Forteo) 600 MCG/2.4ML Solution Pen-injector Inject 20 mcg under the skin daily. 2.4 mL 11 02/02/2023 Active traMADol hydrochloride 50 mg oral tablet (20 sources) Opioid Agonist Start: 08-10-2024 take 1 tablet by mouth once daily as needed for pain Tramadol 50 mg tablet Active 50 mg PO daily as needed for pain August 10, 2024 12:00am Start: 12-15-2023 take 1 tablet by emily th every eight hours for pain traMADol (Ultram) 50 mg tablet Indications: Chronic pain syndrome Take 1 tablet (50 mg) by mouth every 8 hours if needed for severe pain (7 - 10). 30 tablet 1 12/15/2023 Active Start: 09-28-2023 End: 11-10-2023 take 1 tablet by mouth every eight hours for pain traMADol (Ultram) 50 mg tablet Indications: Chronic pain syndrome Take 1 tablet (50 mg) by mouth every 8 hours if needed for severe pain (7 - 10). 30 tablet 1 11/10/2023 Active Start: 11-10-2015 End: 05-13-2023 take 1 tablet by mouth every eight hours for pain traMADol (Ultram) 50 mg tablet Indications: Chronic pain syndrome Take 1 tablet (50 mg) by mouth every 8 hours if needed for severe pain (7 - 10). 30 tablet 05/13/2023 Active Start: 11-10-2015 take 1 tablet by emily th every six hours as needed for pain traMADol (ULTRAM) 50 mg tablet Take 1 tablet (50 mg total) by mouth every 6 (six) hours as needed for pain. 60 tablet 0 11/10/2015 Active take 1 tablet by emily th every four hours traMADol 50 mg oral tablet ; 1 tab(s) orally every 4 hours Quantity: 0 Refills: 0 Ordered: 27-Apr-2019 Marlene, Emmie Generic Substitution Allowed 100 ml zoledronic acid 0.05 mg/ml injection (20 sources) Bisphosphonate Start: 08-10-2024 Zoledronic Xcvf-Zcyagufu-Mesxo (Reclast) 5 mg/100 mL piggyback Active 1 NMA IV .QYEAR August 10, 2024 12:00am 1 ea intravenously; 100 once yearly Start: 08-10-2024 Zoledronic Aci i-Zrfhemll-Lycjz (Reclast) 5 mg/100 mL piggyback Active NMA .Route August 10, 2024 12:00am 100 once yearly Start: 02-01-2022 End: 02-02-2023 take 100 mL intravenously once zoledronic acid 5 MG/10 0ML Solution Indications: Age-related osteoporosis without current pathological fracture 100 mL by Intravenous route Once for 1 dose. 5 mL 0 02/01/2022 02/02/2023 Discontinued (Therapy completed) Start: 02-20-2019 zoledronic aci d (RECLAST) 5 mg premix IVPB Start: 01-01-2019 End: 01-03-2020 take 100 mL intravenously once zoledronic acid 5 MG/10 0ML Solution Indications: Age-related osteoporosis without current pathological fracture 100 mL by Intravenous route Once for 1 dose. 5 mL 0 01/03/2020 Active Start: 01-16-2018 take 100 mL intraven ous route once zoledronic acid 5 MG/100ML Solution 100 mL by Intravenous route Once for 1 dose. 100 mL 0 01/16/2018 Active End: 05-13-2023 zoledronic acid (Reclast) 5 mg/100 mL piggyback Infuse into a venous catheter. 0 05/13/2023 Discontinued (Med List Cleanup) Completed/Discontinued Medications Medication Drug Class(es) Dates Sig (Normalized) Sig (Original) acetaminophen 325 mg / HYDROcodone bitartrate 5 mg oral tablet (1 source) Opioid Agonist Start: 12-26-2022 End: 12-26-2022 HYDROcodone-aceta minophen ([place]) 5-325 mg per tablet 1 tablet alendronic acid 70 mg oral tablet (1 source) Bisphosphonate Start: 05-06-2015 End: 07-25-2017 alendronate (FOSAMAX) 70 MG tablet Take 70 mg by mouth every 7 days . 05/06/2015 07/25/2017 Discontinued amoxicillin 500 mg oral capsule (1 source) Penicillin-class Antibacterial Start: 01-02-2020 take 1 capsule by mouth four times daily Amoxicillin 500 MG Oral Capsule TAKE 1 CAPSULE BY MOUTH 4 TIMES DAILY UNTIL GONE Quantity: 40 Refills: 0 Ordered: 02-Jan-2020 DO Start : 02-Jan-2020 Complete aspirin 81 mg delayed release oral tablet (20 sources) Nonsteroidal Anti-inflammatory Drug Aspirin 81 MG Oral Tablet Delayed Release Quantity: 0 Refills: 0 Ordered: 13-May-2020 DO Active End: 07-25-2017 Aspirin 81 MG Oral Tablet De layed Release Refills: 0 Active calcium chloride 0.0014 meq/ml / potassium chloride 0.004 meq/ml / sodium chloride 0.103 meq/ml / sodium lactate 0.028 meq/ml injectable solution (1 source) Start: 09-10-2024 End: 09-10-2024 1,000 mL, intravenous, at 999 mL/hr, Administer over 1 Hours, Once, On 09/10/24 at 1705, For 1 dose cephalexin 500 mg oral capsule (4 sources) Cephalosporin Antibacterial Start: 01-07-2023 End: 01-14-2023 take 1 capsule by mouth four times daily cephALEXin (KEFLEX) 500 MG capsule Take 1 (one) capsule (500 mg total) by mouth 4 (four) times a day for 7 days . 28 capsule 0 01/07/2023 01/14/2023 1 ml dexamethasone phosphate 10 mg/ml injection (4 sources) Corticosteroid Start: 06-06-2024 End: 06-06-2024 As needed, Starting on Tue06/06/24 at 1054, Intraprocedure Start: 08-26-2023 End: 08-26-2023 As needed, Starting on Tue at 1306, Intraprocedure Start: 03-04-2023 End: 03-04-2023 dexAMETHasone (PF) (Decadron ) injection 10 mg Disability Placard (15 sources) Start: 11-11-2021 Disability Placard Duration 5 years Quantity: 1 Refills: 0 Ordered: 11-Nov-2021 Jasmine Mathias MD Start : 11-Nov-2021 Active gadoterate meglumine (Dotarem) 0.5 mmol/mL contrast injection 17 mL (1 source) Start: 07-17-2024 End: 07-17-2024 inject 17 mL intravenously once 17 mL, intravenous, Once in imaging, Starting on Tue07/17/24 at 1205, For 1 dose, Administer undiluted as rapid I.V. bolus injection imiquimod 50 mg/ml topical cream (8 sources) Start: 01-04-2018 End: 02-17-2024 imiquimod 5 % Cream 01/04/2018 02/17/2024 Discontinued iohexol (OMNIPaque) 300 mg iodine/mL solution (1 source) Start: 06-06-2024 End: 06-06-2024 As needed, Starting on Tue06/06/24 at 1059, Intraprocedure iohexol (OMNIPaque) 300 mg iodine/mL solution 3 mL (2 sources) Start: 03-04-2023 End: 03-04-2023 iohexol (OMNIPaque) 300 mg iodine/mL solution 3 mL iohexol (OMNIPaque) 300 mg iodine/mL solution 6 mL (1 source) Start: 08-26-2023 End: 08-26-2023 6 mL, miscellaneous, Once in OR, Starting on Tue08/26/23 at 1410, For 1 dose, Intraprocedure 10 ml lidocaine hydrochloride 20 mg/ml injection (6 sources) Antiarrhythmic, Amide Local Anesthetic Start: 06-06-2024 End: 06-06-2024 As needed, Starting on Tue06/06/24 at 1055, Intraprocedure Start: 06-06-2024 End: 06-06-2024 As needed, Starting on Tue at 1055, Intraprocedure Start: 08-26-2023 End: 08-26-2023 120 mg (6 mL), infiltration, Once, On Tue08/26/23 at 1430, For 1 dose, Intraprocedure Start: 08-26-2023 End: 08-26-2023 As needed, Starting on Tue at 1306, Intraprocedure Start: 03-04-2023 End: 03-04-2023 lidocaine PF (Xylocaine) 10 mg/mL (1 %) injection 100 mg loperamide hydrochloride 2 mg oral capsule (2 sources) Opioid Agonist Start: 09-10-2024 End: 09-10-2024 take 4 mg by mouth once 4 mg, oral, Once, On Tue09/10/24 at 1705, For 1 dose Start: 09-10-2024 End: 09-15-2024 take 1 capsule by mouth four times daily as needed for diarrhea loperamide (Imodium) 2 mg capsule Indications: Gastroenteritis Take 1 capsule (2 mg) by mouth 4 times a day as needed for diarrhea for up to 5 days. 21 capsule 09/10/2024 09/15/2024 Active Medrol Dosepak 4 mg oral tablet (1 source) Start: 05-10-2022 Medrol Dosepak 4 mg oral tablet ; Take as directed. Quantity: 1 Refills: 0 Ordered: 10-May-2022 Lauren Nena Start: 10-May-2022 Generic Substitution Allowed Comments: It is very important that you take or use this exactly as directed. Do not skip doses or discontinue unless directed by your doctor.Obtain medical advice before taking any non-prescription drugs as some may affect the action of this medication.Take with food or milk. Comment on above: It is very important that you take or use this exactly as directed. Do not skip doses or discontinue unless directed by your doctor.Obtain medical advice before taking any non-prescription drugs as some may affect the action of this medication.Take with food or milk. 2 ml ondansetron 2 mg/ml injection (16 sources) Serotonin-3 Receptor Antagonist Start: 09-10-2024 End: 09-10-2024 4 mg, intravenous, Once, On Tue09/10/24 at 1705, For 1 dose, When administering via IV Push, administer over 3-5 minutes. Start: 01-05-2023 End: 01-20-2023 take 1 tablet by mouth every six hours as needed for nausea ondansetron (Zofran) 4 MG tablet Take 1 (one) tablet (4 mg total) by mouth every 6 (six) hours as needed for nausea . 28 tablet 1 01/05/2023 Active 24 hr oxybutynin chloride 10 mg extended release oral tablet (1 source) Cholinergic Muscarinic Antagonist End: 07-25-2017 take 1 tablet by mouth once daily oxybutynin (DITROPAN-XL) 10 MG 24 hr tablet Take 10 mg by mouth daily. 07/25/2017 Discontinued oxyCODONE hydrochloride 10 mg oral tablet (1 source) Opioid Agonist End: 07-25-2017 take 10 mg by mouth every twelve hours as needed oxyCODONE (OXYCONTIN) 10 mg 12 hr tablet Take 10 mg by mouth every 12 (twelve) hours as needed for pain. 07/25/2017 Discontinued pregabalin 225 mg oral capsule (20 sources) Start: 06-14-2024 End: 06-25-2024 take 1 capsule by mouth twice daily pregabalin (Lyrica) 225 mg capsule Indications: Lumbosacral radiculopathy Take 1 capsule (225 mg) by mouth 2 times a day. 60 capsule 1 06/14/2024 06/25/2024 Discontinued (Therapy completed) Start: 04-11-2024 take 1 capsule by mo uth twice daily pregabalin (Lyrica) 225 mg capsule Indications: Lumbosacral radiculopathy Take 1 capsule (225 mg) by mouth 2 times a day. 60 capsule 1 04/11/2024 Active Start: 02-02-2024 End: 04-11-2024 take 1 capsule by mouth twice daily pregabalin (Lyrica) 200 mg capsule Indications: Chronic pain syndrome , Degeneration of intervertebral disc of lumbar region, unspecified whether pain present , Lumbosacral radiculopathy Take 1 capsule (200 mg) by mouth 2 times a day. 60 capsule 2 02/02/2024 04/11/2024 Discontinued (Therapy completed) Start: 01-19-2024 End: 02-02-2024 take 1 capsule by mouth twice daily pregabalin (Lyrica) 150 mg capsule Indications: Neurogenic claudication due to lumbar spinal stenosis , Lumbosacral radiculopathy , Degenerative disc disease, lumbar Take 1 capsule (150 mg) by mouth 2 times a day. 60 capsule 1 01/19/2024 02/02/2024 Discontinued (Therapy completed) Start: 11-17-2023 take 1 capsule by mo uth twice daily pregabalin (Lyrica) 150 mg capsule Indications: Neurogenic claudication due to lumbar spinal stenosis , Lumbosacral radiculopathy , Degenerative disc disease, lumbar Take 1 capsule (150 mg) by mouth 2 times a day. 60 capsule 1 11/17/2023 Active 5 ml sodium chloride 9 mg/ml injection (2 sources) Start: 03-04-2023 End: 03-04-2023 sodium chloride (PF) 0.9% solution 5 mL sucralfate 1000 mg oral tablet (17 sources) Aluminum Complex Start: 02-03-2018 take 1 tablet by mouth four times daily Sucralfate 1 GM Oral Tablet TAKE 1 TABLET 4 TIMES DAILY. Quantity: 0 Refills: 0 Ordered: 03-Feb-2018 DO Start : 03-Feb-2018 Active Problems Active Problems Problem Classification Problem Date Documented Date Episodic/Chronic Acquired foot deformities (20 sources) Hammer toe; Translations: [Other hammer toe(s) (acquired), left foot] Onset: 12-27-2022 12-27-2022 Chronic Acquired foot deformities (4 sources) Bunion; Translations: [Bunion of left foot] Onset: 12-27-2022 12-27-2022 Episodic Acquired foot deformities (1 source) Bunion; Translations: [Bunion of right foot] 03-24-2023 Episodic Anxiety disorders (20 sources) Anxiety; Translations: [Anxiety state, unspecified] Onset: 02-02-2022 02-02-2022 Chronic Deficiency and other anemia (2 sources) Anemia, unspecified; Translations: [Anemia, unspecified] Onset: 02-02-2022 Episodic Disorders of lipid metabolism (20 sources) Hypercholesterolemia; Translations: [Pure hypercholesterolemia] Onset: 02-02-2022 02-02-2022 Chronic E Codes: Fall (1 source) Fall; Translations: [Unspecified fall, initial encounter] 12-26-2022 Episodic Esophageal disorders (20 sources) Gastroesophageal reflux disease; Translations: [Esophageal reflux] Onset: 01-22-2022 07-19-2022 Chronic Essential hypertension (20 sources) Essential hypertension; Translations: [Hypertensive disorder] Onset: 06-27-2015 06-27-2015 Chronic Headache; including migraine (1 source) Headache; including migraine; Translations: [Headache, unspecified] Onset: 05-10-2022 Immunizations and screening for infectious disease (20 sources) Patient encounter status; Translations: [Other specified vaccination] 05-13-2023 Episodic Comment on above: Dexa 06/28/17; mammo 06/29/18; colooscopy 01/28/15; Mycoses (1 source) Tinea pedis; Translations: [Tinea pedis] Episodic Noninfectious gastroenteritis (3 sources) Gastroenteritis; Translations: [Noninfective gastroenteritis and colitis, unspecified] Onset: 09-10-2024 09-10-2024 Episodic Nutritional deficiencies (9 sources) Vitamin D deficiency; Translations: [Vitamin D deficiency, unspecified] Onset: 11-04-2023 11-10-2022 Chronic Osteoarthritis (20 sources) Osteoarthritis; Translations: [Osteoarthrosis, generalized, multiple sites] Onset: 07-19-2022 Chronic Osteoporosis (20 sources) Senile osteoporosis; Translations: [Osteoporosis] Onset: 12-13-2017 12-13-2017 Chronic Other acquired deformities (14 sources) Spondylolisthesis; Translations: [Spondylolisthesis, cervical region] Onset: 07-16-2024 07-16-2024 Episodic Other acquired deformities (3 sources) Spondylolisthesis, cervical region; Translations: [Spondylolisthesis, cervical region] Onset: 07-16-2024 Episodic Other aftercare (3 sources) Surgical follow-up; Translations: [Encounter for surgical aftercare following surgery on the digestive system] Episodic Other congenital anomalies (20 sources) Osteopetrosis; 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] Onset: 01-24-2023 01-24-2023 Chronic Other congenital anomalies (4 sources) Osteopetrosis; 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)] Onset: 01-24-2023 Chronic Other connective tissue disease (1 source) Pain in left foot; Translations: [Pain in left foot] Episodic Other connective tissue disease (1 source) Other symptoms and signs involving the musculoskeletal system; Translations: [Oth symptoms and signs involving the musculoskeletal system] Onset: 12-16-2022 Episodic Other connective tissue disease (1 source) History of lumbar fusion; Translations: [Arthrodesis status] 07-26-2023 Episodic Other connective tissue disease (2 sources) History of cervical spine fusion; Translations: [Arthrodesis status] 08-10-2024 Episodic Other connective tissue disease (2 sources) Pain in right foot; Translations: [Pain in right foot] Onset: 08-24-2024 Episodic Other fractures (1 source) Fracture of multiple pubic rami; Translations: [Bilateral pubic rami fractures (HCC)] Episodic Other fractures (1 source) Closed fracture of single right rib; Translations: [Fracture of one rib, right side, initial encounter for closed fracture] 09-30-2022 Episodic Other injuries and conditions due to external causes (2 sources) Injury of toe of right foot; Translations: [Unspecified injury of right foot, initial encounter] 08-24-2024 Episodic Other injuries and conditions due to external causes (2 sources) Unspecified injury of right foot, initial encounter; Translations: [Unspecified injury of right foot, initial encounter] Onset: 08-24-2024 Episodic Other lower respiratory disease (2 sources) Cough 05-10-2022 Episodic Comment on above: COUGH Other nervous system disorders (1 source) Neurogenic claudication; Translations: [Neurogenic claudication due to lumbar spinal stenosis] Chronic Other nervous system disorders (11 sources) Chronic pain syndrome; Translations: [Chronic pain syndrome] Onset: 11-04-2023 11-10-2022 Chronic Other nervous system disorders (3 sources) Chronic pain syndrome; Translations: [Chronic pain syndrome] Onset: 07-19-2022 Chronic Other nervous system disorders (2 sources) Cervical myelopathy; Translations: [Disease of spinal cord, unspecified] 08-10-2024 Chronic Other nervous system disorders (1 source) Disease of spinal cord, unspecified; Translations: [Disease of spinal cord, unspecified] Onset: 08-30-2024 Chronic Other nervous system disorders (2 sources) Other chronic pain; Translations: [Other chronic pain] Onset: 07-19-2022 Chronic Other nervous system disorders (3 sources) Other abnormalities of gait and mobility; Translations: [Other abnormalities of gait and mobility] Onset: 12-16-2022 Episodic Other nervous system disorders (2 sources) Postoperative pain ; Translations: [Other acute postprocedural pain] 01-11-2023 Episodic Other nervous system disorders (2 sources) Neurogenic claudication 06-25-2024 Episodic Other non-traumatic joint disorders (14 sources) Pain in unspecified knee; Translations: [Knee pain] Episodic Other non-traumatic joint disorders (14 sources) Pain in right shoulder; Translations: [Pain in joint, shoulder region] Onset: 06-26-2024 06-26-2024 Episodic Other non-traumatic joint disorders (4 sources) Pain in right hip; Translations: [Pain in right hip] Onset: 12-27-2023 Episodic Other nutritional; endocrine; and metabolic disorders (5 sources) Morbid obesity; Translations: [Obesity, morbid, BMI 40.0-49.9] Onset: 12-13-2017 12-13-2017 Chronic Other nutritional; endocrine; and metabolic disorders (20 sources) Body mass index 30+ - obesity; Translations: [Body Mass Index 34.0-34.9, adult] Onset: 02-02-2022 02-02-2022 Chronic Other nutritional; endocrine; and metabolic disorders (20 sources) Obesity; Translations: [Obesity, unspecified] Onset: 10-09-2022 11-10-2022 Chronic Other nutritional; endocrine; and metabolic disorders (3 sources) Body mass index 40+ - severely obese; Translations: [Morbid (severe) obesity due to excess calories] Onset: 12-13-2017 12-13-2017 Chronic Other nutritional; endocrine; and metabolic disorders (2 sources) Obesity, unspecified; Translations: [Obesity, unspecified] Onset: 02-02-2022 Chronic Other nutritional; endocrine; and metabolic disorders (20 sources) Severe obesity; Translations: [Morbid (severe) obesity due to excess calories] Onset: 10-09-2022 05-13-2023 Chronic Other nutritional; endocrine; and metabolic disorders (2 sources) Morbid (severe) obesity due to excess calories; Translations: [Morbid (severe) obesity due to excess calories (Multi)] Onset: 05-13-2023 Chronic Other nutritional; endocrine; and metabolic disorders (2 sources) Body mass index (BMI) 35.0-35.9, adult; Translations: [Body mass index (BMI) 35.0-35.9, adult] Onset: 05-13-2023 Chronic Other upper respiratory disease (1 source) Seasonal allergy; Translations: [Other seasonal allergic rhinitis] 12-08-2022 Chronic Residual codes; unclassified (20 sources) Chronic pain; Translations: [Other chronic pain] Onset: 07-19-2022 07-19-2022 Chronic Residual codes; unclassified (1 source) Swelling - edema - symptom; Translations: [Edema, unspecified] Onset: 07-19-2022 07-19-2022 Episodic Residual codes; unclassified (8 sources) History of operative procedure on foot; Translations: [Other specified postprocedural states] 01-07-2023 Episodic Rheumatoid arthritis and related disease (20 sources) Rheumatoid arthritis; Translations: [Rheumatoid arthritis] Onset: 07-19-2022 07-19-2022 Chronic Comment on above: Rheumatoid arthritis ; Spondylosis; intervertebral disc disorders; other back problems (20 sources) Degeneration of intervertebral disc; Translations: [Lumbosacral spondylosis] Onset: 07-19-2022 07-19-2022 Chronic Spondylosis; intervertebral disc disorders; other back problems (20 sources) Sciatica; Translations: [Lumbosacral radiculopathy] Onset: 07-19-2022 07-19-2022 Episodic Sprains and strains (1 source) Sprain of foot; Translations: [Sprain of foot, unspecified site] 10-26-2020 Episodic Superficial injury; contusion (3 sources) Contusion of left foot; Translations: [Contusion of left foot, initial encounter] Episodic Thyroid disorders (9 sources) Non-toxic multinodular goiter; Translations: [Nontoxic multinodular goiter] Onset: 12-13-2017 12-13-2017 Chronic Unclassified (20 sources) Patient encounter status; Translations: [Preop cardiovascular exam] Onset: 06-27-2015 06-27-2015 Unclassified (2 sources) LEFT FOOT INJURY 10-26-2020 Comment on above: LEFT FOOT INJURY Unclassified (1 source) POSSIBLE PROLAPSE-SAW DR. BARTLETT [place] 201410-20-2020 Comment on above: POSSIBLE PROLAPSE-SA W DR. BARTLETT [place] 2014 Unclassified (2 sources) 6 MOS CK 05-07-2020 Comment on above: 6 MOS CK Unclassified (1 source) Sprain of left foot 10-26-2020 Unclassified (2 sources) SORE THROAT STUFFY 03-26-2021 Comment on above: SORE THROAT STUFFY Unclassified (1 source) 6 MO FUV 11-11-2021 Comment on above: 6 MO FUV Unclassified (2 sources) RT RIB DISCOMFORT 09-27-2022 Comment on above: RT RIB DISCOMFORT Unclassified (1 source) Cough, unspecified; Translations: [Cough, unspecified] Onset: 05-10-2022 Unclassified (4 sources) Acute pain of right shoulder 06-26-2024 Unclassified (2 sources) Pre-op Exam; Translations: [Pre-op Exam] Onset: 08-31-2024 Unclassified (1 source) Obesity, class 2; Translations: [Obesity, class 2] Onset: 05-13-2023 Unclassified (1 source) Other intervertebral disc degeneration, lumbar region without mention of lumbar back pain or lower extremity pain; Translations: [Other intervertebral disc degeneration, lumbar region without mention of lumbar back pain or lower extremity pain] Onset: 07-19-2022 Past or Other Problems Problem Classification Problem Date Documented Da te Episodic/Chronic Abdominal hernia (2 sources) Diaphragmatic hernia without obstruction or gangrene; Translations: [Diaphragmatic hernia without obstruction or gangrene] Onset: 10-28-202 2 Episodic Acute bronchitis (6 sources) Acute bronchitis; Translations: [Acute bronchitis] Onset: 3 05-10-2022 Episodic Deficiency and other anemia (20 sources) Anemia; Translations: [Anemia, unspecified] Onset: 2 02-02-2022 Episodic E Codes: Natural/environment (1 source) Overexertion from strenuous movement or load, initial encounter; Translations: [Overexertion from strenuous movement or load, init] Onset: 3 Episodic Esophageal disorders (20 sources) Gastroesophageal reflux disease with hiatal hernia; Translations: [Diaphragmatic hernia without obstruction or gangrene] Onset: 2 Episodic Joint disorders and dislocations; trauma-related (20 sources) Dislocation of toe joint; Translations: [Unspecified dislocation of left toe(s), initial encounter] Onset: 3 12-27-2022 Episodic Nonspecific chest pain (1 source) Intercostal pain; Translations: [Intercostal pain] Onset: 3 Episodic Other aftercare (2 sources) Other keno terminal operator (current) drug therapy; Translations: [Other fci (current) drug therapy] Onset: 4 Episodic Other bone disease and musculoskeletal deformities (20 sources) Osteopenia; Translations: [Other specified disorders of bone density and structure, unspecified site] Onset: 3 12-26-2022 Episodic Other circulatory disease (1 source) Other specified symptoms and signs involving the circulatory and respiratory systems; Translations: [Oth symptoms and signs involving the circ and resp systems] Onset: 3 Episodic Other connective tissue disease (20 sources) H/O: arthrodesis; Translations: [Arthrodesis status] Onset: 3 01-24-2023 Episodic Other connective tissue disease (20 sources) Muscle weakness of upper limb; Translations: [Other musculoskeletal symptoms referable to limbs] Onset: 3 01-24-2023 Episodic Other connective tissue disease (6 sources) Arthrodesis status; Translations: [Arthrodesis status] Onset: 3 Episodic Other connective tissue disease (1 source) History of spinal fusion; Translations: [Arthrodesis status] 09-22-2023 Episodic Other connective tissue disease (2 sources) Fibromyalgia; Translations: [Fibromyalgia] Onset: 4 Episodic Other fractures (3 sources) Fracture of one rib, right side, initial encounter for closed fracture; Translations: [Fracture of one rib, right side, init for clos fx] Onset: 3 Episodic Other gastrointestinal disorders (20 sources) Esophageal dysphagia; Translations: [Other dysphagia] Onset: 2 Episodic Other gastrointestinal disorders (20 sources) Heartburn; Translations: [Heartburn] Onset: 2 Episodic Other gastrointestinal disorders (2 sources) Other dysphagia; Translations: [Other dysphagia] Onset: 2 Episodic Other hematologic conditions (20 sources) H/O: anemia; Translations: [Personal history of diseases of blood and blood-forming organs] Resolved: 1 Episodic Other lower respiratory disease (2 sources) Pleurodynia; Translations: [Pleurodynia] Onset: 3 Episodic Other nervous system disorders (20 sources) Impairment of balance; Translations: [Abnormality of gait] Onset: 3 01-24-2023 Episodic Other non-traumatic joint disorders (20 sources) Hip pain; Translations: [Pain in joint, pelvic region and thigh] Onset: 0 Resolved: 1 06-11-2019 Episodic Other screening for suspected conditions (not mental disorders or infectious disease) (10 sources) Encounter for screening mammogram for malignant neoplasm of breast; Translations: [Encntr screen mammogram for malignant neoplasm of breast] Onset: 2 Episodic Other upper respiratory infections (20 sources) Acute sinusitis; Translations: [Acute sinusitis, unspecified] Onset: 4 08-15-2023 Episodic Residual codes; unclassified (20 sources) History of fundoplication; Translations: [Other specified postprocedural states] Onset: 2 Episodic Residual codes; unclassified (20 sources) Edema; Translations: [Edema] Onset: 3 07-19-2022 Episodic Residual codes; unclassified (2 sources) Other specified postprocedural states; Translations: [Other specified postprocedural states] Onset: 2 Episodic Residual codes; unclassified (4 sources) Edema, unspecified; Translations: [Edema, unspecified] Onset: 3 Episodic Residual codes; unclassified (2 sources) Pain, unspecified; Translations: [Pain, unspecified] Onset: 5 Episodic Syncope (3 sources) Syncope; Translations: [Syncope and collapse] Onset: 4 03-12-2024 Episodic Unclassified (20 sources) Onset: 3 Resolved: 5 09-30-2022 Unclassified (1 source) Obesity, class 2; Translations: [Obesity, class 2] Onset: 5 Unclassified (1 source) Other intervertebral disc degeneration, lumbar region without mention of lumbar back pain or lower extremity pain; Translations: [Other intervertebral disc degeneration, lumbar region without mention of lumbar back pain or lower extremity pain] Onset: 4 NEGATED: Highlighted row has not occurred!Residual codes; unclassified (19 sources) Disease Episodic Results Test Name Value Interpretation Reference Range Facility CLOSTRIDIUM DIFFICILE TOXINB ,QL REAL TIME PCRon 09-14-2024 CLOSTRIDIUM DIFFICILE TOXINB,QL REAL TIME PCR Not detected Normal NOT DETECTED [facility] Comment on above: Order Comment: SPLIT 09/10/2024 FROM [id number] Result Comment: This test is for use only with liquid or soft stools; performance characteristics of other clinical specimen types have not been established. This assay was performed by [employer]. The performance characteristics of this assay have been determined by [employer]. Performance characteristics refer to the analytical performance of the test. For additional information, please refer to [email or web address] (This link is being provided for informational/educational purposes only.) Performed By: #### 6 55, 85273, [id number] #### [facility] [address], [address] [place] [id number] Building Specialist: Eric Handley MD GIARDIA AND CRYPTOSPORIDIUM ANTIGEN PANELon 09-14-2024 CRYPTOSPORIDIUM ANTIGEN, EIA SEE NOTE Normal [facility] Comment on above: Result Comment: CRYPTOSPORIDIUM ANTIGEN, EIA Micro Number: [id number] Test Status: Final Specimen Source: Stool Specimen Quality: Adequate Cryptosporidium: Not Detected Reference Range: Not Detected NOTE: Due to intermittent shedding, one negative sample does not necessarily rule out the presence of a parasitic infection. Performed By: #### 6 81, 84938, 47459 #### [facility] [place] [address] Building Specialist: Eric Handley MD GIARDIA AG, EIA, STOOL SEE NOTE Normal [facility] Comment on above: Result Comment: GIARDIA AG, EIA, STOOL Micro Number: [id number] Test Status: Final Specimen Source: Stool Specimen Quality: Adequate Giardia Result 1: Not Detected Reference Range: Not Detected NOTE: Due to intermittent shedding, one negative sample does not necessarily rule out the presence of a parasitic infection. Performed By: #### 6 81, 71631, 07020 #### [facility] [place] [address] Building Specialist: Eric Handley MD OVA AND PARASITES, CONC AND PERM SMEARon 09-14-2024 CONCENTRATE (1) SEE NOTE Normal [facility] Comment on above: Performed By: #### 6 81, 38435, 26202 #### [facility] [place] [address] Building Specialist: Eric Handley MD TRICHROME (1) SEE NOTE Normal [facility] Comment on above: Performed By: #### 6 81, 26429, 46932 #### [facility] [place] [address] Building Specialist: Eric Handley MD GASTROINTESTINAL PATHOGEN PA LESLIE, REAL TIME PCRon 09-11-2024 [employer] Not detected Normal NOT DETECTED [facility] Comment on above: Order Comment: COLLE CTION KIT GIVEN TO PATIENT. PATIENT ADVISED TO RETURN. Performed By: #### 3 3570 #### [facility] [place] [address] Building Specialist: Eric Handley MD NOROVIRUS GI/GII Not detected Normal NOT DETECTED [facility] Comment on above: Order Comment: COLLE CTION KIT GIVEN TO PATIENT. PATIENT ADVISED TO RETURN. Performed By: #### 3 2570 #### [facility] [place] [address] Building Specialist: Eric Handley MD ROTAVIRUS A Not detected Normal NOT DETECTED [facility] Comment on above: Order Comment: COLLE CTION KIT GIVEN TO PATIENT. PATIENT ADVISED TO RETURN. Result Comment: Orga nisms included in the Campylobacter group include C. coli, C. jejuni, and C. sydney. Organisms included in the Shigella species include S. dysenteriae, S. boydii, S. sonnei, and S. flexneri. Organisms included in the Vibrio group include V. cholerae and V. parahaemolyticus. Performed By: #### 3 8470 #### [facility] [place] [address] Building Specialist: Eric Handley MD SALMONELLA SPECIES Not detected Normal NOT DETECTED [facility] Comment on above: Order Comment: COLLE CTION KIT GIVEN TO PATIENT. PATIENT ADVISED TO RETURN. Performed By: #### 3 8470 #### [facility] [place] [address] Building Specialist: Eric Handley MD SHIGA TOXIN 1 Not detected Normal NOT DETECTED [facility] Comment on above: Order Comment: COLLE CTION KIT GIVEN TO PATIENT. PATIENT ADVISED TO RETURN. Performed By: #### 3 8470 #### [facility] [place] [address] Building Specialist: Eric aHndley MD SHIGA TOXIN 2 Not detected Normal NOT DETECTED [facility] Comment on above: Order Comment: COLLE CTION KIT GIVEN TO PATIENT. PATIENT ADVISED TO RETURN. Performed By: #### 3 8470 #### [facility] [place] [address] Building Specialist: Eric Handley MD SHIGELLA SPECIES Not detected Normal NOT DETECTED [facility] Comment on above: Order Comment: COLLE CTION KIT GIVEN TO PATIENT. PATIENT ADVISED TO RETURN. Performed By: #### 3 8470 #### [facility] [place] [address] Building Specialist: Eric Handley MD VIBRIO GROUP Not detected Normal NOT DETECTED [facility] Comment on above: Order Comment: COLLE CTION KIT GIVEN TO PATIENT. PATIENT ADVISED TO RETURN. Performed By: #### 3 8470 #### [facility] [address] [place] [address], [address] [place] [address] Building Specialist: Eric Handley MD YERSINIA ENTEROCOLITICA Not detected Normal NOT DETECTED [facility] Comment on above: Order Comment: COLLE CTION KIT GIVEN TO PATIENT. PATIENT ADVISED TO RETURN. Performed By: #### 3 8470 #### [facility] [address] [place], [place] [address] Rd, [address] [place] [address] Building Specialist: Eric Handley MD CBC W Auto Differential pane l (Bld)on 09-10-2024 Basophils (Bld) [#/Vol] 0.01 10*3/uL [facility] Basophils/100 WBC (Bld) 0.2 % 0.0 - 2.0 % [facility] Eosinophils (Bld) [#/Vol] 0.05 10*3/uL [facility] Eosinophils/100 WBC (Bld) 0.8 % 0.0 - 6.0 % [facility] Erythrocyte distribution width (RBC) [Ratio] 18.4 % High 11.5 - 14.5 % [facility] Hematocrit (Bld) [Volume fraction] 34.2 % Low 36.0 - 46.0 % [facility] Hemoglobin (Bld) [Mass/Vol] 10.9 g/dL Low 12.0 - 16.0 g/dL [facility] Immature granulocytes (Bld) [#/Vol] 0.02 10*3/uL [facility] Immature granulocytes/100 WBC (Bld) 0.3 % 0.0 - 0.9 % [facility] Comment on above: Immature Granulocyte Count (IG) includes promyelocytes, myelocytes and metamyelocytes but does not include bands. Percent differential counts (%) should be interpreted in the context of the absolute cell counts (cells/UL). Interpretation and review of laboratory results Abnormal [facility] Lymphocytes (Bld) [#/Vol] 0.93 10*3/uL [facility] Lymphocytes/100 WBC (Bld) 14.5 % 13.0 - 44.0 % [facility] MCH (RBC) [Entitic mass] 30.5 pg 26.0 - 34.0 pg [facility] MCHC (RBC) [Mass/Vol] 31.9 g/dL Low 32.0 - 36.0 g/dL [facility] MCV (RBC) [Entitic vol] 96 fL 80 - 100 fL [facility] Monocytes (Bld) [#/Vol] 0.62 10*3/uL [facility] Monocytes/100 WBC (Bld) 9.7 % 2.0 - 10.0 % [facility] Neutrophils (Bld) [#/Vol] 4.79 10*3/uL [facility] Comment on above: Percent differential counts (%) should be interpreted in the context of the absolute cell counts (cells/uL). Neutrophils/100 WBC (Bld) 74.5 % 40.0 - 80.0 % [facility] Nucleated RBC/100 WBC (Bld) [Ratio] 0 % [facility] Platelets (Bld) [#/Vol] 242 10*3/uL [facility] RBC (Bld) [#/Vol] 3.57 10*6/uL [facility] WBC (Bld) [#/Vol] 6.4 10*3/uL [facility] Basophils (Bld) [#/Vol] 0.01 x10*3/uL Normal 0.00-0.10 [facility] Comment on above: Performed By: #### 5 7021-8 ####CHARLES COYNE ([id number])[facility] ([facility])[address] [place] [address] 36497 Basophils/100 WBC (Bld) 0.2 % Normal 0.0-2.0 [facility] Comment on above: Performed By: #### 5 7021-8 ####CHARLES COYNE ([id number])[facility] ([facility])[address] [place] [address]223 Eosinophils (Bld) [#/Vol] 0.05 x10*3/uL Normal 0.00-0.40 [facility] Comment on above: Performed By: #### 5 7021-8 ####CHARLES COYNE ([id number])[facility] ([facility])[address] [place] [address] 00467 Eosinophils/100 WBC (Bld) 0.8 % Normal 0.0-6.0 [facility] Comment on above: Performed By: #### 5 7021-8 ####CHARLES COYNE ([id number])[facility] ([facility])[address] [place] [address] 15003 Erythrocyte distribution width (RBC) [Ratio] 18.4 % High 11.5-14.5 [facility] Comment on above: Performed By: #### 5 7021-8 ####CHARLES COYNE ([id number])[facility] ([facility])[address] [place] [address] 14541 Hematocrit (Bld) [Volume fraction] 34.2 % Low 36.0-46.0 [facility] Comment on above: Performed By: #### 5 7021-8 ####CHARLES COYNE ([id number])[facility] ([facility])[address] [place] [address] 66979 Hemoglobin (Bld) [Mass/Vol] 10.9 g/dL Low 12.0-16.0 [facility] Comment on above: Performed By: #### 5 7021-8 ####CHARLES COYNE ([id number])[facility] ([facility])[address] [place] [address] 06264 Immature granulocytes (Bld) [#/Vol] 0.02 x10*3/uL Normal 0.00-0.50 [facility] Comment on above: Performed By: #### 5 7021-8 ####CHARLES COYNE ([id number])[facility] ([facility])[address] [place] [address] 24369 Immature granulocytes/100 WBC (Bld) 0.3 % Normal 0.0-0.9 [facility] Comment on above: Result Comment: Karla ture Granulocyte Count (IG) includes promyelocytes, myelocytes and metamyelocytes but does not include bands. Percent differential counts (%) should be interpreted in the context of the absolute cell counts (cells/UL). Performed By: #### 5 7021-8 ####CHARLES COYNE ([id number])[facility] ([facility])[address] [place] [address]648 Lymphocytes (Bld) [#/Vol] 0.93 x10*3/uL Normal 0.80-3.00 [facility] Comment on above: Performed By: #### 5 7021-8 ####CHARLES COYNE ([id number])[facility] ([facility])[address] [place] [address] 37249 Lymphocytes/100 WBC (Bld) 14.5 % Normal 13.0-44.0 [facility] Comment on above: Performed By: #### 5 7021-8 ####CHARLES COYNE ([id number])[facility] ([facility])[address] [place] [address] 63430 MCH (RBC) [Entitic mass] 30.5 pg Normal 26.0-34.0 [facility] Comment on above: Performed By: #### 5 7021-8 ####CHARLES COYNE ([id number])[facility] ([facility])[address] [place] [address] 57751 MCHC (RBC) [Mass/Vol] 31.9 g/dL Low 32.0-36.0 [facility] Comment on above: Performed By: #### 5 7021-8 ####CHARLES COYNE ([id number])[facility] ([facility])[address] [place] [address] 83210 MCV (RBC) [Entitic vol] 96 fL Normal 80-100 [facility] Comment on above: Performed By: #### 5 7021-8 ####CHARLES COYNE ([id number])[facility] ([facility])[address] [place] [address] 41939 Monocytes (Bld) [#/Vol] 0.62 x10*3/uL Normal 0.05-0.80 [facility] Comment on above: Performed By: #### 5 7021-8 ####CHARLES COYNE ([id number])[facility] ([facility])[address] [place] [address] 84691 Monocytes/100 WBC (Bld) 9.7 % Normal 2.0-10.0 [facility] Comment on above: Performed By: #### 5 7021-8 ####CHARLES COYNE ([id number])[facility] ([facility])[address] [place] [address] 66767 Neutrophils (Bld) [#/Vol] 4.79 x10*3/uL Normal 1.60-5.50 [facility] Comment on above: Result Comment: Perc ent differential counts (%) should be interpreted in the context of the absolute cell counts (cells/uL). Performed By: #### 5 7021-8 ####CHARLES COYNE ([id number])[facility] ([facility])[address] [place] [address] 73099 Neutrophils/100 WBC (Bld) 74.5 % Normal 40.0-80.0 [facility] Comment on above: Performed By: #### 5 7021-8 ####CHARLES COYNE ([id number])[facility] ([facility])[address] [place] [address] 59051 Nucleated RBC/100 WBC (Bld) [Ratio] 0.0 /100 WBCs Normal 0.0-0.0 [facility] Comment on above: Performed By: #### 5 7021-8 ####CHARLES COYNE ([id number])[facility] ([facility])[address] [place] [address] 56040 Platelets (Bld) [#/Vol] 242 x10*3/uL Normal 150-450 [facility] Comment on above: Performed By: #### 5 7021-8 ####CHARLES COYNE ([id number])[facility] ([facility])[address] [place] [address] 64410 RBC (Bld) [#/Vol] 3.57 x10*6/uL Low 4.00-5.20 [facility] Comment on above: Performed By: #### 5 7021-8 ####CHARLES COYNE ([id number])[facility] ([facility])[address] [place] [address] WBC (Bld) [#/Vol] 6.4 x10*3/uL Normal 4.4-11.3 [facility] Comment on above: Performed By: #### 5 7021-8 ####CHARLES COYNE ([id number])[facility] ([facility])[address] [place] [id number] Comprehensive metabolic 2000 panelon 09-10-2024 Albumin BCP dye [Mass/Vol] 3.7 g/dL 3.4 - 5.0 g/dL [facility] ALP [Catalytic activity/Vol] 57 U/L 33 - 136 U/L [facility] ALT With P-5'-P [Catalytic activity/Vol] 29 U/L 7 - 45 U/L [facility] Comment on above: Patients treated wit h Sulfasalazine may generate falsely decreased results for ALT. Anion gap [Moles/Vol] 9 mmol/L Low 10 - 20 mmol/L [facility] AST With P-5'-P [Catalytic activity/Vol] 32 U/L 9 - 39 U/L [facility] Bilirubin [Mass/Vol] 0.3 mg/dL 0.0 - 1.2 mg/dL [facility] Calcium [Mass/Vol] 7.1 mg/dL Low 8.6 - 10. 3 mg/dL [facility] Chloride [Moles/Vol] 107 mmol/L 98 - 107 mmol/L [facility] CO2 [Moles/Vol] 25 mmol/L 21 - 32 mmol/L [facility] Creatinine [Mass/Vol] 0.76 mg/dL 0.50 - 1.05 mg/dL [facility] GFR/1.73 sq M.predicted among non-blacks MDRD (S/P/Bld) [Vol rate/Area] 83 mL/min/{1.73_m2} - PINF [facility] Comment on above: Calculations of taye mated GFR are performed using the 2020 CKD-EPI Study Refit equation without the race variable for the IDMS-Traceable creatinine methods. https://jasn.asnjournals.org/content//ASN.796363843 8 Glucose [Mass/Vol] 112 mg/dL High 74 - 99 mg/dL [facility] Potassium [Moles/Vol] 3.8 mmol/L 3.5 - 5.3 mmol/L [facility] Protein [Mass/Vol] 6 g/dL Low 6.4 - 8.2 g/dL [facility] Sodium [Moles/Vol] 137 mmol/L 136 - 145 mmol/L [facility] Urea nitrogen [Mass/Vol] 21 mg/dL 6 - 23 mg/dL [facility] Albumin BCP dye [Mass/Vol] 3.7 g/dL Normal 3.4-5.0 [facility] Comment on above: Performed By: #### 2 4323-8 ####CHARLES COYNE ([id number])[facility] ([facility])[address] [place] [address] 76450 ALP [Catalytic activity/Vol] 57 U/L Normal 33-136 [facility] Comment on above: Performed By: #### 2 4323-8 ####CHARLES COYNE ([id number])[facility] ([facility])[address] [place] [address] 12295 ALT With P-5'-P [Catalytic activity/Vol] 29 U/L Normal 7-45 [facility] Comment on above: Result Comment: Lori ents treated with Sulfasalazine may generate falsely decreased results for ALT. Performed By: #### 2 4323-8 ####CHARLES COYNE ([id number])[facility] ([facility] [place] [address] Anion gap [Moles/Vol] 9 mmol/L Low 10-20 [facility] Comment on above: Performed By: #### 2 4323-8 ####CHARLES COYNE ([id number])[facility] ([facility])[address] [place] [address] 80122 AST With P-5'-P [Catalytic activity/Vol] 32 U/L Normal 9-39 [facility] Comment on above: Performed By: #### 2 4323-8 ####CHARLES COYNE ([id number])[facility] ([facility])[address] [place] [address] Bilirubin [Mass/Vol] 0.3 mg/dL Normal 0.0-1.2 [facility] Comment on above: Performed By: #### 2 4323-8 ####CHARLES COYNE ([id number])[facility] ([facility])[address] [place] [address] 46775 Calcium [Mass/Vol] 7.1 mg/dL Low 8.6-10.3 [facility] Comment on above: Performed By: #### 2 4323-8 ####CHARLES COYNE ([id number])[facility] ([facility])[address] [place] [address] 11510 Chloride [Moles/Vol] 107 mmol/L Normal 98-107 [facility] Comment on above: Performed By: #### 2 4323-8 ####CHARLES COYNE ([id number])[facility] ([facility])[address] [place] [address] 04741 CO2 [Moles/Vol] 25 mmol/L Normal 21-32 [facility] Comment on above: Performed By: #### 2 4323-8 ####CHARLES COYNE ([id number])[facility] ([facility])[address] [place] [address] 28394 Creatinine [Mass/Vol] 0.76 mg/dL Normal 0.50-1.05 [facility] Comment on above: Performed By: #### 2 4323-8 ####CHARLES COYNE ([id number])[facility] ([facility])[address] [place] [address] 89122 Glomerular filtration rate/1.73 sq M.predicted 83 mL/min/1.73m*2 Normal >60 [facility] Comment on above: Result Comment: Calc ulations of estimated GFR are performed using the 2020 CKD-EPI Study Refit equation without the race variable for the IDMS-Traceable creatinine methods. https://jasn.asnjournals.org/content/early//ASN.509949225 8 Performed By: #### 2 4323-8 ####CHARLES COYNE ([id number])[facility] ([facility])[address] [place] [address] 19966 Glucose [Mass/Vol] 112 mg/dL High 74-99 [facility] Comment on above: Performed By: #### 2 4323-8 ####CHARLES COYNE ([id number])[facility] ([facility])[address] [place] [address] 07936 Potassium [Moles/Vol] 3.8 mmol/L Normal 3.5-5.3 [facility] Comment on above: Performed By: #### 2 4323-8 ####CHARLES COYNE ([id number])[facility] ([facility])[address] [place] [address] 87949 Protein [Mass/Vol] 6.0 g/dL Low 6.4-8.2 [facility] Comment on above: Performed By: #### 2 4323-8 ####CHARLES COYNE ([id number])[facility] ([facility])[address] [place] [address] 49744 Sodium [Moles/Vol] 137 mmol/L Normal 136-145 [facility] Comment on above: Performed By: #### 2 4323-8 ####CHARLES COYNE ([id number])[facility] ([facility])[address] [place] [address] 92688 Urea nitrogen [Mass/Vol] 21 mg/dL Normal 6-23 [facility] Comment on above: Performed By: #### 2 4323-8 ####CHARLES COYNE ([id number])[facility] ([facility])[address] [place] [address] 46542 Lactateon 09-10-2024 Lactate [Moles/Vol] 0.5 mmol/L 0.4 - 2.0 mmol/L [facility] Lactate [Moles/Vol] 0.5 mmol/L Normal 0.4-2.0 [facility] Comment on above: Order Comment: Venip uncture immediately after or during the administration of Metamizole may lead to falsely low results. Testing should be performed immediately prior to Metamizole dosing. Performed By: #### 2 524-7 ####SOTO STANFORD ([id number])[facility] ([facility])[address] [place] [address] Lactate [Moles/Vol]on 2024 Venipuncture immedia tely after or during the administration of Metamizole may lead to falsely low results. Testing should be performed immediately prior to Metamizole dosing. [facility] MR/PAT.ANEon 09-10-2024 MR/PAT.ANE [facility] Medical Records Department [address] [place] [address] PAT - Anesthesia 09/10/24 0953 MR#: [id number] Acct: [id number] Name: NARENDRA ARGUELLES Rep #: [id number] : 1950 73 From: Balta Ren MD PCP: Dr. 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 When Was Last Pacemaker Check QUESTION #4 FULL TEXT: You/Your Family Experience fever (hyperthermia) with Anesthesia Last Oral Intake Last Oral intake: Last Oral Intake NPO since Meds taken in AM with sips of water? 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 - boilers and pressure vessels inspector: PONV - boilers and pressure vessels inspector Female Yes 09/04/24 14:18 HX of Motion Sickness No 09/04/24 14:18 HX of N/V After Surgery No 09/04/24 14:18 Non-Smoker Yes 09/04/24 14:18 Duration of Surgery greater Yes 09/04/24 14:18 than 60 minutes Number of Risk Factors 3 09/04/24 14:18 PONV Score Moderate Risk 09/04/24 14:18 Height Weight Height Weight: Anesthesia: Height Weight Height 5 ft 1 in 08/10/24 09:34 Respiratory Assessment Respiratory Assessment - boilers and pressure vessels inspector: Respiratory Tract Infection Hx - boilers and pressure vessels inspector Hx Respiratory Tract Infection No 09/04/24 14:18 STOP Sleep Apnea STOP Sleep Apnea - boilers and pressure vessels inspector: STOP Sleep Apnea - boilers and pressure vessels inspector Hx Hypertension Yes: CONTROLLED WITH MED 09/04/24 14:18 Hx Sleep Apnea No 09/04/24 14:18 CPAP BIPAP Do you snore loudly (louder No 09/04/24 14:18 than talking or can be heard Do you often feel tired/ No 09/04/24 14:18 fatigued/ sleepy during daytime? Has anyone observed you stop No 09/04/24 14:18 breathing during sleep? STOP Results Negative 09/04/24 14:18 QUESTION #5 FULL TEXT : Do you snore loudly (louder than talking or can be heard through closed doors)? Tobacco Use History Tobacco Use History - boilers and pressure vessels inspector: Tobacco Use History - boilers and pressure vessels inspector Tobacco Use Smoking Status Never smoker 09/04/24 14:18 Hx Tobacco Use No 09/04/24 14:18 Years Smoking Packs Smoked per Day Smoking Cessation Date was within the last 15 years Hx Smoking Cessation Date Hx Smoking Cessation Counseling Hematologic Medial History Hematologic Hx - boilers and pressure vessels inspector: Hematologic Medical Hx - attending anesthesiologist Hx of Blood Transfusion Yes 09/04/24 14:18 Hx of Transfusion in last 3 No 09/04/24 14:18 Months Date of Last Transfusion (if within last 3 months) Ever experience any problems No 09/04/24 14:18 with transfusion(s)? Specify any problems Hx of Preganancy in last 3 No 09/04/24 14:18 Months Nurse Filling Out Transfusion DSCHRIBER 09/04/24 14:18 Questions: Date: 09/04/24 09/04/24 14:18 Time: 14:21 09/04/24 14:18 Patient unable to answer at this time (ie. confused, unrespo /Reproduction History /Reproductive History - boilers and pressure vessels inspector: /Reproductive Hx- boilers and pressure vessels inspector Hx Now No 09/04/24 14:18 Gestational Age (in weeks): EDC: Hx Hx Para Hx Section SAB No 09/04/24 14:18 PFSH Medical History Wears glasses Post-menopausal Anxiety Alcohol use Dry skin dermatitis Cancer Numbness and tingling in right hand History of steroid therapy Ambulates with cane Rheumatoid arthritis Low iron Restless legs Back pain Migraine headache Blackout Constipation Difficulty swallowing History of ulceration History of IBS Gastric reflux Non-smoker Shortness of breath on exertion Hoarseness Leg cramps Hx of fracture of pelvis History of edema History of stress test Hypertension Home Medications ???Medication ???Instructions ???Recorded ???Last Taken ???Type alprazolam 0.25 mg tablet (Xanax) 0.25 mg PO QHS PRN anxiety Unknown History atorvastatin 20 mg tablet (Lipitor) 20 mg PO QHS 08/10/24 Unknown H istory ferrous (more content not included)... Normal [facility] Magnesiumon 09-10-2024 Magnesium [Mass/Vol] 1.86 mg/dL 1.60 - 2.40 mg/dL [facility] Magnesium [Mass/Vol] 1.86 mg/dL Normal 1.60-2.40 [facility] Comment on above: Performed By: #### 1 9123-9 ####CHARLES COYNE ([id number])[facility] ([facility])[address] [place] [address] No Panel Informationon 09-10 Interpretation and review of laboratory results Abnormal [facility] Interpretation and review of laboratory results Normal [facility] Phosphateon 09-10-2024 Phosphate [Mass/Vol] 2.1 mg/dL Low 2.5-4.9 [facility] Comment on above: Performed By: #### 2 777-1 ####CHARLES COYNE ([id number])[facility] ([facility])[address] [place] [address] Phosphoruson 09-10-2024 Phosphate [Mass/Vol] 2.1 mg/dL Low 2.5 - 4.9 mg/dL [facility] Hepatitis A AB, Totalon 08-26 HEPATITIS A,TOT Negative Normal Negative [facility] Comment on above: Result Comment: Comm ent: The HAV total antibody assay detects both IgG and IgM but does not differentiate between them. A negative result suggests susceptibility to infection. A positive result could be due to vaccination, previously resolved infection or active infection. Testing for HAV IgM should be performed if active HAV infection is suspected. [employer] offers profiles that will automatically reflex positive HAV total antibody results to IgM (e.g., panel #[id number] HAV Antibody w/ Rfx). Performed at: [address] [id number] [employer]pper: Reagan Lua PhD, Phone: [phone] Performed By: #### M 100.651, L100.0100, L3100.0300, BTSPAT, L3890.6006, L3890.6202, L3890.6301, L500.2500, L501.9985 ####[facility] [address] [facility] [place], [place], [id number] MRSA/SAID NASAL SCREENon MRSA+SAID SCRN Reason for Exam: El kelly MRSA MRSA Negative S. AUREUS S. aureus Negative Normal [facility] Comment on above: Performed By: #### M 100.651, L100.0100, L3100.0300, BTSPAT, L3890.6006, L3890.6202, L3890.6301, L500.2500, L501.9985 ####[facility] [address] [place], [place], [id number] Basic Metabolic Profile (BMP )on 09-07-2024 BUN/CRE 32.6 RATIO High 10-20 [facility] Comment on above: Performed By: #### M 100.651, L100.0100, L3100.0300, BTSPAT, L3890.6006, L3890.6202, L3890.6301, L500.2500, L501.9985 #### [facility] [address] [place], [address] Calcium [Mass/Vol] 10.0 mg/dL Normal 7.6-11.0 [facility] Comment on above: Performed By: #### M 100.651, L100.0100, L3100.0300, BTSPAT, L3890.6006, L3890.6202, L3890.6301, L500.2500, L501.9985 #### [facility] [address] [place], [address] Chloride [Moles/Vol] 102 mmol/L Normal 98-108 [facility] Comment on above: Performed By: #### M 100.651, L100.0100, L3100.0300, BTSPAT, L3890.6006, L3890.6202, L3890.6301, L500.2500, L501.9985 #### [facility] [address] [place], [address] CO2 [Moles/Vol] 25.5 mmol/L Normal 21.0-32.0 [facility] Comment on above: Performed By: #### M 100.651, L100.0100, L3100.0300, BTSPAT, L3890.6006, L3890.6202, L3890.6301, L500.2500, L501.9985 #### [facility] [address] [place], [address] Creatinine [Mass/Vol] 0.91 mg/dL Normal 0.70-1.20 [facility] Comment on above: Performed By: #### M 100.651, L100.0100, L3100.0300, BTSPAT, L3890.6006, L3890.6202, L3890.6301, L500.2500, L501.9985 #### [facility] [address] [place], [address] GAP 12 Normal 5-15 [facility] Comment on above: Performed By: #### M 100.651, L100.0100, L3100.0300, BTSPAT, L3890.6006, L3890.6202, L3890.6301, L500.2500, L501.9985 #### [facility] [address] [place], [address] GFR/1.73 sq M.predicted among non-blacks MDRD (S/P/Bld) [Vol rate/Area] 67 mL/min/{1.73_m2} Normal >60 [facility] Comment on above: Result Comment: mL/m in/1.73m2 CKD-EPI Creatinine Equation (2020) Performed By: #### M 100.651, L100.0100, L3100.0300, BTSPAT, L3890.6006, L3890.6202, L3890.6301, L500.2500, L501.9985 #### [facility] [address] [place], [address] Glucose [Mass/Vol] 71 mg/dL Normal 70-99 [facility] Comment on above: Performed By: #### M 100.651, L100.0100, L3100.0300, BTSPAT, L3890.6006, L3890.6202, L3890.6301, L500.2500, L501.9985 #### [facility] [address] [place], [address] Potassium [Moles/Vol] 4.3 mmol/L Normal 3.3-5.1 [facility] Comment on above: Performed By: #### M 100.651, L100.0100, L3100.0300, BTSPAT, L3890.6006, L3890.6202, L3890.6301, L500.2500, L501.9985 #### [facility] [address] [place], [address] Sodium [Moles/Vol] 139 mmol/L Normal 133-145 [facility] Comment on above: Performed By: #### M 100.651, L100.0100, L3100.0300, BTSPAT, L3890.6006, L3890.6202, L3890.6301, L500.2500, L501.9985 #### [facility] [address] [place], [address] Urea nitrogen [Mass/Vol] 30 mg/dL High 4-19 [facility] Comment on above: Performed By: #### M 100.651, L100.0100, L3100.0300, BTSPAT, L3890.6006, L3890.6202, L3890.6301, L500.2500, L501.9985 #### [facility] [address] [place], [address] CBC W/Diff, Automatedon 06-03 30-2024 Absolute Lymph 0.54 X10 3/uL Low 0.83-4.51 [facility] Comment on above: Performed By: #### M 100.651, L100.0100, L3100.0300, BTSPAT, L3890.6006, L3890.6202, L3890.6301, L500.2500, L501.9985 #### [facility] [address] [place], [address] Absolute Neut 4.3 X10 3/uL Normal 2.0-7.7 [facility] Comment on above: Performed By: #### M 100.651, L100.0100, L3100.0300, BTSPAT, L3890.6006, L3890.6202, L3890.6301, L500.2500, L501.9985 #### [facility] [address] [place], [address] Basophils/100 WBC (Bld) 0.4 % Normal 0-1 [facility] Comment on above: Performed By: #### M 100.651, L100.0100, L3100.0300, BTSPAT, L3890.6006, L3890.6202, L3890.6301, L500.2500, L501.9985 #### [facility] [address] [place], [address] Eosinophils/100 WBC (Bld) 1.6 % Normal 0-5 [facility] Comment on above: Performed By: #### M 100.651, L100.0100, L3100.0300, BTSPAT, L3890.6006, L3890.6202, L3890.6301, L500.2500, L501.9985 #### [facility] [address] [place], [address] Erythrocyte distribution width (RBC) [Ratio] 18.5 % High 11.6-14.6 [facility] Comment on above: Performed By: #### M 100.651, L100.0100, L3100.0300, BTSPAT, L3890.6006, L3890.6202, L3890.6301, L500.2500, L501.9985 #### [facility] [address] [place], [address] Hematocrit (Bld) [Volume fraction] 36.3 % Low 37-47 [facility] Comment on above: Performed By: #### M 100.651, L100.0100, L3100.0300, BTSPAT, L3890.6006, L3890.6202, L3890.6301, L500.2500, L501.9985 #### [facility] [address] [place], [address] Hemoglobin (Bld) [Mass/Vol] 11.8 g/dL Low 12.0-15.0 [facility] Comment on above: Performed By: #### M 100.651, L100.0100, L3100.0300, BTSPAT, L3890.6006, L3890.6202, L3890.6301, L500.2500, L501.9985 #### [facility] [address] [place], [address] IG% 0.600 Normal 0.0-0.9 [facility] Comment on above: Result Comment: IG% - Immature Granulocytes (promyelocytes, myelocytes and metamyelocytes) > 1% indicates that a LEFT SHIFT is Present. Performed By: #### M 100.651, L100.0100, L3100.0300, BTSPAT, L3890.6006, L3890.6202, L3890.6301, L500.2500, L501.9985 #### [facility] [address] [facility] [place], [address] Lymphocytes/100 WBC (Bld) 10.5 % Low 19-41 [facility] Comment on above: Performed By: #### M 100.651, L100.0100, L3100.0300, BTSPAT, L3890.6006, L3890.6202, L3890.6301, L500.2500, L501.9985 #### [facility] [address] [place], [address] MCH (RBC) [Entitic mass] 30.4 pg Normal 27.0-32.0 [facility] Comment on above: Performed By: #### M 100.651, L100.0100, L3100.0300, BTSPAT, L3890.6006, L3890.6202, L3890.6301, L500.2500, L501.9985 #### [facility] [address] [place], [address] MCHC (RBC) [Mass/Vol] 32.5 g/dL Normal 32-36 [facility] Comment on above: Performed By: #### M 100.651, L100.0100, L3100.0300, BTSPAT, L3890.6006, L3890.6202, L3890.6301, L500.2500, L501.9985 #### [facility] [address] [place], [address] MCV (RBC) [Entitic vol] 93.6 fL Normal 81-99 [facility] Comment on above: Performed By: #### M 100.651, L100.0100, L3100.0300, BTSPAT, L3890.6006, L3890.6202, L3890.6301, L500.2500, L501.9985 #### [facility] [address] [facility] [address] [place], [address] Monocytes/100 WBC (Bld) 3.9 % Normal 0-10 [facility] Comment on above: Performed By: #### M 100.651, L100.0100, L3100.0300, BTSPAT, L3890.6006, L3890.6202, L3890.6301, L500.2500, L501.9985 #### [facility] [address] [facility] [address] [place], [address] Neutrophils/100 WBC (Bld) 83.0 % High 47-70 [facility] Comment on above: Performed By: #### M 100.651, L100.0100, L3100.0300, BTSPAT, L3890.6006, L3890.6202, L3890.6301, L500.2500, L501.9985 #### [facility] [address] [place], [address] Nucleated RBC (Bld) [#/Vol] 0 10*3/uL Normal 0-5 [facility] Comment on above: Performed By: #### M 100.651, L100.0100, L3100.0300, BTSPAT, L3890.6006, L3890.6202, L3890.6301, L500.2500, L501.9985 #### [facility] [address] [place], [address] Platelet mean volume (Bld) [Entitic vol] 10.2 fL Normal 6.2-12.0 [facility] Comment on above: Performed By: #### M 100.651, L100.0100, L3100.0300, BTSPAT, L3890.6006, L3890.6202, L3890.6301, L500.2500, L501.9985 #### [facility] [address] [place], [address] Platelets (Bld) [#/Vol] 267 10*3/uL Normal 150-450 [facility] Comment on above: Performed By: #### M 100.651, L100.0100, L3100.0300, BTSPAT, L3890.6006, L3890.6202, L3890.6301, L500.2500, L501.9985 #### [facility] [address] [place], [address] RBC (Bld) [#/Vol] 3.88 10*6/uL Low 4.2-5.4 [facility] Comment on above: Performed By: #### M 100.651, L100.0100, L3100.0300, BTSPAT, L3890.6006, L3890.6202, L3890.6301, L500.2500, L501.9985 #### [facility] [address] [place], [address] RDW SD 62.7 fl High 35.1-43.9 [facility] Comment on above: Performed By: #### M 100.651, L100.0100, L3100.0300, BTSPAT, L3890.6006, L3890.6202, L3890.6301, L500.2500, L501.9985 #### [facility] [address] [place], [place], [address] WBC (Bld) [#/Vol] 5.1 10*3/uL Normal 4.4-11.0 [facility] Comment on above: Performed By: #### M 100.651, L100.0100, L3100.0300, BTSPAT, L3890.6006, L3890.6202, L3890.6301, L500.2500, L501.9985 #### [facility] [address] [place], [place], [address] HIVon 09-07-2024 HIV Non-Reactive Normal Nonreactive [facility] Comment on above: Result Comment: Non- Reactive Reactive Repeatedly reactive samples must be confirmed according to CDC recommended confirmatory algorithms. The subresults for either HIVAG or AHIV can be used as an aid in the selection of the confirmation algorithm for reactive samples. Send out specimens with Reactive results to [facility] for confirmation. Order the HIV antibody detection and differentiation: lc#[id number] Performed By: #### M 100.651, L100.0100, L3100.0300, BTSPAT, L3890.6006, L3890.6202, L3890.6301, L500.2500, L501.9985 #### [facility] [address] [place], [place], [id number] Hemoglobin A1con 09-07-2024 HbA1c (Bld) [Mass fraction] 6.1 % High <=5.6 [facility] Comment on above: Result Comment: Norm al < 5.7 % Prediabetic 5.7 - 6.4 % Diabetic >or= 6.5 % Please note range changes. Performed By: #### M 100.651, L100.0100, L3100.0300, BTSPAT, L3890.6006, L3890.6202, L3890.6301, L500.2500, L501.9985 ####[facility] [address] [place], [place], [id number] Hepatitis B Surface Antibody on 09-07-2024 HEP B Surf Ab Non-Reactive Normal [facility] Comment on above: Result Comment: <8.5 mIU/mL: Non-Reactive 8.5<= x <11.5 mIU/mL: Indeterminate >=11.5 mIU/mL: Reactive Non Reactive: Inconsistent with immunity less than <10 mIU/mL Reactive: Consistent with immunity greater than or equal to 10 mIU/mL Performed By: #### M 100.651, L100.0100, L3100.0300, BTSPAT, L3890.6006, L3890.6202, L3890.6301, L500.2500, L501.9985 #### [facility] [address] [place], [place], [id number] Hepatitis C Antibodyon 09-07 Hepatitis C Ab Non-Reactive Normal Nonreactive [facility] Comment on above: Result Comment: Reac tive: Presumptive evidence of antibodies to HCV. Follow CDC recommendations for supplemental testing. Non-Reactive: Antibodies to HCV were not detected; does not exclude the possibility of exposure to HCV Reactive Results are presumptive evidence of antibodies to HCV. Follow CDC recommendations for supplemental testing. Order confirmation testing: HCV Quant by PCR testing - HCVPCR #[id number] Non Reactive: < 0.8 Equivocal: >/= 0.8 to < 1.0 Reactive: >/= 1.0 The CDC requires that a reactive/equivocal HCV antibody result be sent out for confirmation. HCV Quant by PCR testing. Performed By: #### M 100.651, L100.0100, L3100.0300, BTSPAT, L3890.6006, L3890.6202, L3890.6301, L500.2500, L501.9985 #### [facility] [address] [place], [place], [id number] Magnesiumon 09-07-2024 Magnesium [Mass/Vol] 2.1 mg/dL Normal 1.5-2.2 [facility] Comment on above: Performed By: #### L 501.5200 ####[facility] [address] [place], [address] Orthopedic Visit Reporton Orthopedic Visit Report [facility] [address] [place] [address] OFFICE VISIT Date of Service: 09/07/24 MR#: [id number] Acct: [id number] Name: NARENDRA ARGUELLES Rep #: [id number] : 1950 Provider: Dr. Elia Villegas MD Age/Sex: 73/F Location[place] [facility] Status: Signed Intake Vital Signs 08/10/24 09:34 09/07/24 09:30 Height 5 ft 1 in 5 ft 1 in Weight: 204 lb 203 lb BMI 38.5 38.3 Intake Visit Reasons: cervical spine Chief Complaint: cervical spine pre op Accompanied by: Is patient in pain?: Yes Pain scale (1-10): 7 Allergies codeine Allergy (Mild, Verified 09/07/24 09:34) Constipation Medications ???Medication ???Instructions ???Recorded ???Confirmed ???Type alprazolam 0.25 mg tablet (Xanax) 0.25 mg PO QHS PRN anxiety 09/07/24 History atorvastatin 20 mg tablet (Lipitor) 20 mg PO QHS 08/10/24 09/07/24 History ferrous fumarate 325 mg (106 mg 325 mg PO QDAY 08/10/24 09/07/24 H istory iron) tablet furosemide 20 mg tablet 20 mg PO QAM 08/10/24 09/07/24 His tory gabapentin 300 mg capsule 300 mg PO TID 08/10/24 09/07/24 Hi story lisinopril 5 mg tablet 5 mg PO QDAY 08/10/24 09/07/24 His tory meloxicam 15 mg tablet 15 mg PO QDAY 08/10/24 09/07/24 Hi story nortriptyline 25 mg capsule 25 mg PO .QHS' 08/10/24 09/07/24 H istory omeprazole 40 mg capsule,delayed 40 mg PO QDAY 08/10/24 09/07/24 Hi story release tramadol 50 mg tablet 50 mg PO QDAY PRN pain 08/10/24 History zoledronic acid 5 mg/100 mL in 1 ea IV .QYEAR 08/10/24 09/07/24 H istory mannitol 5 %-water intravenous piggybck (Reclast) methotrexate sodium 2.5 mg tablet 20 mg PO MO 09/04/24 09/07/24 His tory Have you fallen in the past year?: No PFSH Medical History Wears glasses Post-menopausal Anxiety Alcohol use Dry skin dermatitis Cancer Numbness and tingling in right hand History of steroid therapy Ambulates with cane Rheumatoid arthritis Low iron Restless legs Back pain Migraine headache Blackout Constipation Difficulty swallowing History of ulceration History of IBS Gastric reflux Non-smoker Shortness of breath on exertion Hoarseness Leg cramps Hx of fracture of pelvis History of edema History of stress test Hypertension Surgical History History of lumbar spinal fusion Hx of right cataract extraction Hx of left cataract extraction History of repair of hiatal hernia History of esophagogastroduodenoscopy (EGD) Hx of colonoscopy Hx of bilateral salpingo-oophorectomy History of repair of rectocele Hx of hysterectomy Hx of arthroscopy of shoulder Hx of arthroscopy of shoulder Hx of fusion of cervical spine Hx of foot surgery Hx of total knee arthroplasty Hx of total hip arthroplasty Social History Smoking Status: Never smoker HPI cervical spine Details: This documentation accurately reflects the service provided and the decisions made by me, Dr. Elia Villegas MD 09/07/24 4130. Part of today???s visit was documented by Varun Pop MA, acting as scribe. NARENDRA ARGUELLES is a 73 year old F here today for cervical spine pre op. Patient is here to discuss surgery. She denies any recent injections or physical therapy. She continues to have significant neck pain with right shoulder and arm burning numbness, right hand numbness and weakness, left hand weakness, worsening dexterity and balance. 08/10/24: NARENDRA ARGUELLES is a 73 year old F here today for cervical spine pain. Pt advises she been experiencing neck pain since Mar 2024. She denies known injury,. She describes it as neck pain from the right side of her neck that extends down her right arm to her fingers, as well as numbness down the right side of her chest and back. The patient does recall that she did have a fall back in February 2024 says that this was related to dizziness but denies any neck pain directly after this fall. Patient currently is getting a stabbing pain in the top of her right shoulder with tingling down her right arm all the way to her fingers, the patient says that she does have some left-sided tingling in the hands however this is not as frequent as the right sided symptoms. She states she had cervical spine surgery about 20 years ago where a mass was removed and a pinched nerve released. This was done by Dr. Rodolfo Moe at [facility]. She says that at the time of her surgery 20 years ago she was having dexterity issues in her hand, pain, issues swallowing. She had a recent MRI at in [place]. She has been taking pain meds which is not helpful. The patient has meloxicam (more content not included)... Normal [facility] Type AND Screen - PAT ONLYon 09-07-2024 Ab SCREEN GEL Negative Normal [facility] Comment on above: Order Comment: Surge ry Date: 09/18/24 Reason for Laboratory Test PREOP [id number] No N N S CERVICAL FUSION C3-4 C4-5 Performed By: #### M 100.651, L100.0100, L3100.0300, BTSPAT, L3890.6006, L3890.6202, L3890.6301, L500.2500, L501.9985 #### [facility] [address] [place], [address] XR FOOT RIGHT 3+ VIEWS (MG MOORE)on 08-24-2024 XR FOOT RIGHT 3+ VIEWS (STANDARD) No fractures dislocations or subluxations to the great toe does have an obvious bunion but is asymptomatic Dictated by: BAR TRIANA on TueAug 28, 2024 8:20:12 AM EDT Transcribed by: BAR TRIANA on TueAug 28, 2024 8:20:12 AM EDT Finalized by: BAR TRIANA on TueAug 28, 2024 8:20:12 AM EDT Normal [facility] Comment on above: Order Comment: Injur y/Trauma or Illness?:Injury/Trauma How long have you had these symptoms (acute/chronic)?:Acute Reason for exam?:pain/injury History of cancer?:no Surgeries, chemotherapy, or radiation?:Right bunionectomy Type of Exam?:Initial Mechanism of injury?:blunt trauma Cerv Spine 4 or 5 Viewson Cerv Spine 4 or 5 Views [facility] Imaging Services [address] [place] [address] Cerv Spine 4 or 5 Views MR#: [id number] Acct: [id number] Name: NARENDRA ARGUELLES Rep #: [id number] : 1950 F 73 From: [facility] PCP: Dr. Jasmine Mathias MD Status: DEP AMB Study: Cerv Spine 4 or 5 Views Date of Exam: 08/10/24 Exam# [id number] Ordering Dr: Carolyn Tabares PROCEDURE: CERV SPINE 4 OR 5 VIEWS including flexion and extension views 08/10/2024 REASON FOR EXAM: CHRONIC PAIN TECHNIQUE: 2 views of the cervical spine. COMPARISON: None available at the time of interpretation. FINDINGS: Vertebrae: Anterior interbody fusion has been performed at C5-C6. An anterior fixation plate and 4 screws are intact. There is no evidence of vertebral body fracture or collapse in the unfused cervical vertebral bodies. disc spaces: Disc space narrowing is mild at C3-4 and moderately severe at C4-5 and C6-7. the remainder of the cervical intervertebral disc spaces are normal in height. Alignment: There is severe grade 1 anterolisthesis of C3 on C4 and grade 1 retrolisthesis of C4 on C5. Alignment is otherwise physiologic. soft tissues: The prevertebral soft tissues are normal in thickness. There is no evidence of radiopaque foreign body other than the surgical implants. Other: There is no abnormal motion on flexion and extension views. RAD/Cerv Spine 4 or 5 Views IMPRESSION: Status post anterior interbody fusion at C5-C6. There is no abnormal motion on flexion and extension views. Degenerative changes as detailed above. Reading Location: [facility] CC: ANGELES Zheng; Dr. 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 [address] [place] [address] OFFICE VISIT Date of Service: 08/10/24 MR#: [id number] Acct: [id number] Name: NARENDRA ARGUELLES Rep #: [id number] : 1950 Provider: ANGELES Zheng Age/Sex: 73/F Location: [facility] Status: Signed Intake Vital Signs 08/10/24 09:34 Height 5 ft 1 in Weight: 204 lb BMI 38.5 Intake Visit Reasons: CERVICAL SPINE Chief Complaint: cervical spine Is patient in pain?: Yes (cervical ) Pain scale (1-10): 7 Allergies codeine Allergy (Mild, Verified 08/10/24 09:36) Constipation Medications ???Medication ???Instructions ???Recorded ???Confirmed ???Type alprazolam 0.25 mg tablet (Xanax) 0.25 mg PO QHS PRN 08/10/2408/10 History atorvastatin 20 mg tablet (Lipitor) 20 mg PO QDAY 08/10/24 08/10/24 History ferrous fumarate 325 mg (106 mg 325 mg PO QDAY 08/10/24 08/10/24 H istory iron) tablet furosemide 20 mg tablet 20 mg PO QAM 08/10/24 08/10/24 His tory gabapentin 300 mg capsule 300 mg PO TID 08/10/24 08/10/24 Hi story lisinopril 5 mg tablet 5 mg PO QDAY 08/10/24 08/10/24 His tory meloxicam 15 mg tablet 15 mg PO QDAY 08/10/24 08/10/24 Hi story methotrexate 2.5 mg/mL oral 2.5 mg PO QWEEK 08/10/24 08/10/24 History solution nortriptyline 25 mg capsule 25 mg PO QDAY 08/10/24 08/10/24 Hi story omeprazole 40 mg capsule,delayed 40 mg PO QDAY 08/10/24 08/10/24 Hi story release tramadol 50 mg tablet 50 mg PO QDAY 08/10/24 08/10/24 Hi story zoledronic acid 5 mg/100 mL in ea .Route 08/10/24 08/10/24 Histor y mannitol 5 %-water intravenous piggybck (Reclast) Have you fallen in the past year?: Yes (February 2024) [facility] Social History Smoking Status: Never smoker HPI CERVICAL SPINE Chief Complaint: cervical spine Details: This documentation accurately reflects the service provided and the decisions made by me, ANGELES Zheng 08/10/24 0934. Part of today???s visit was documented by [ ], acting as scribe. NARENDRA ARGUELLES is a 73 year old F here today for cervical spine pain. Pt advises she been experiencing neck pain since Mar 2024. She denies known injury,. She describes it as neck pain from the right side of her neck that extends down her right arm to her fingers, as well as numbness down the right side of her chest and back. The patient does recall that she did have a fall back in February 2024 says that this was related to dizziness but denies any neck pain directly after this fall. Patient currently is getting a stabbing pain in the top of her right shoulder with tingling down her right arm all the way to her fingers, the patient says that she does have some left-sided tingling in the hands however this is not as frequent as the right sided symptoms. She states she had cervical spine surgery about 20 years ago where a mass was removed and a pinched nerve released. This was done by Dr. Rodolfo Moe at [facility]. She says that at the time of her surgery 20 years ago she was having dexterity issues in her hand, pain, issues swallowing. She had a recent MRI at in [place]. She has been taking pain meds which is not helpful. The patient has meloxicam which she takes daily and tramadol which she takes as needed. The patient will take Tylenol as needed [id number] and takes 1000 mg every 6 hours. She states the pain wakes her up at night and is worse in the AM. She sees Dr. Chisholm for RA and takes methotrexate and will occasionally be on steroids for this. The patient also has low back pain and has had low back pain for many years. She gets anterior thigh pain. Patient says that she uses a cane in the morning when her back pain is at its worst. Patient has had injections in her low back but no neck epidural steroid injections. Says that she has noticed that she has dropped some things out of her hand over the last 6 months however she says that this is not a consistent issue. Patient and also report that she has had increased difficulty walking in a straight line over the last couple of years but deny any significantly worsening over the last several months. No diabetes, no heart or lung issues, no blood thinners. The patient does have a history of osteoporosis and has a Reclast infusion once a year for the osteoporosis and has been getting these for the last 5 to 6 years. Ortho Exam General General: Yes no acute distress Neurologic: Yes alert and Yes oriented x3 Spine SPINE TESTING CERVICAL THORACIC LUMBAR Musculoskeletal Strength 0=absent - 5=normal Details: Neurological exam of the upper extremities shows 5x5 power. Normal sensations across all dermatomes. No hyperreflexia. Ashvin's negative. There is midline tenderness and right sided paraspinal tenderness. Romberg's positive (more content not included)... Normal [facility] Calcium.ionizedon 08-06-2024 Calcium.ionized (Bld) [Moles/Vol] 1.22 mmol/L Normal 1.1-1.33 [facility] Comment on above: Result Comment: The performance characteristics of ionized calcium tested in heparinized plasma or serum have been validated by the individual laboratory site where testing is performed. Testing on heparinized plasma or serum is not approved by the FDA; however, such approval is not necessary. Performed By: #### 1 994-3 ####SANJUANA Marcelino ([id number])[facility] ([facility])[address] [place] [address] Comprehensive metabolic 2000 panelon 08-06-2024 Albumin BCP dye [Mass/Vol] 4.3 g/dL Normal 3.4-5.0 [facility] Comment on above: Performed By: #### 2 4323-8 #### CHARLES COYNE ([id number]) [facility] ([facility]) [address] [place] [address] ALP [Catalytic activity/Vol] 83 U/L Normal 33-136 [facility] Comment on above: Performed By: #### 2 4323-8 #### CHARLES COYNE ([id number]) [facility] ([facility]) [address] [place] [address] ALT With P-5'-P [Catalytic activity/Vol] 19 U/L Normal 7-45 [facility] Comment on above: Result Comment: Lori ents treated with Sulfasalazine may generate falsely decreased results for ALT. Performed By: #### 2 4323-8 #### CHARLES COYNE ([id number]) [facility] ([facility]) [address] [place] [address] Anion gap [Moles/Vol] 10 mmol/L Normal 10-20 [facility] Comment on above: Performed By: #### 2 432-8 #### CHARLES COYNE ([id number]) [facility] ([facility]) [address] [place] [address] AST With P-5'-P [Catalytic activity/Vol] 21 U/L Normal 9-39 [facility] Comment on above: Performed By: #### 2 432-8 #### CHARLES COYNE ([id number]) [facility] ([facility]) [address] [place] [address] Bilirubin [Mass/Vol] 0.5 mg/dL Normal 0.0-1.2 [facility] Comment on above: Performed By: #### 2 4323-8 #### CHARLES COYNE ([id number]) [facility] ([facility]) [address] [place] [address] Calcium [Mass/Vol] 9.5 mg/dL Normal 8.6-10.3 [facility] Comment on above: Performed By: #### 2 4323-8 #### CHARLES COYNE ([id number]) [facility] ([facility]) [address] [place] [address] Chloride [Moles/Vol] 102 mmol/L Normal 98-107 [facility] Comment on above: Performed By: #### 2 4323-8 #### CHARLES COYNE ([id number]) [facility] ([facility]) [facility] [place] [address] CO2 [Moles/Vol] 30 mmol/L Normal 21-32 [facility] Comment on above: Performed By: #### 2 4323-8 #### CHARLES COYNE ([id number]) [facility] ([facility]) [address] [place] [address] Creatinine [Mass/Vol] 0.95 mg/dL Normal 0.50-1.05 [facility] Comment on above: Performed By: #### 2 432-8 #### CHARLES COYNE ([id number]) [facility] ([facility]) [address] [place] [address] Glomerular filtration rate/1.73 sq M.predicted 64 mL/min/1.73m*2 Normal >60 [facility] Comment on above: Result Comment: Calc ulations of estimated GFR are performed using the 2020 CKD-EPI Study Refit equation without the race variable for the IDMS-Traceable creatinine methods. https://jasn.asnjournals.org/content//ASN.074484441 8 Performed By: #### 2 4323-8 #### CHARLES COYNE ([id number]) [facility] ([facility]) [address] [place] [address] Glucose [Mass/Vol] 98 mg/dL Normal 74-99 [facility] Comment on above: Performed By: #### 2 4323-8 #### CHARLES COYNE (19703) [facility] ([facility]) [address] [place] [address] Potassium [Moles/Vol] 4.4 mmol/L Normal 3.5-5.3 [facility] Comment on above: Performed By: #### 2 4323-8 #### CHARLES COYNE ([id number]) [facility] ([facility]) [address] [place] [address] Protein [Mass/Vol] 6.6 g/dL Normal 6.4-8.2 [facility] Comment on above: Performed By: #### 2 4323-8 #### CHARLES COYNE ([id number]) [facility] ([facility]) [address] [place] [address] Sodium [Moles/Vol] 138 mmol/L Normal 136-145 [facility] Comment on above: Performed By: #### 2 4323-8 #### CHARLES COYNE (85835) [facility] ([facility]) [address] [place] [address] Urea nitrogen [Mass/Vol] 22 mg/dL Normal 6-23 [facility] Comment on above: Performed By: #### 2 4323-8 #### CHARLES COYNE ([id number]) [facility] ([facility]) [address] [place] [address] CBC (INCLUDES DIFF/PLT)on Basophils (Bld) [#/Vol] 0.039 10*3/uL Normal 0-200 [facility] Comment on above: Performed By: #### 6 399, 01790 #### [facility] [place] [address] Building Specialist: Eric Handley MD Basophils/100 WBC (Bld) 0.6 % Normal [facility] Comment on above: Performed By: #### 6 399, 38511 #### [facility] [place] [address] Building Specialist: Eric Handley MD Eosinophils (Bld) [#/Vol] 0.241 10*3/uL Normal 15-500 [facility] Comment on above: Performed By: #### 6 399, 01941 #### [facility] [place] [address] Building Specialist: Eric Handley MD Eosinophils/100 WBC (Bld) 3.7 % Normal [facility] Comment on above: Performed By: #### 6 399, 27801 #### [facility] [place] [address] Building Specialist: Eric Handley MD Erythrocyte distribution width (RBC) [Ratio] 16.0 % High 11.0-15.0 [facility] Comment on above: Performed By: #### 6 399, 82767 #### [facility] [place] [address] Building Specialist: Eric Handley MD Hematocrit (Bld) [Volume fraction] 35.2 % Normal 35.0-45.0 [facility] Comment on above: Performed By: #### 6 399, 48864 #### [facility] [place] [address] Building Specialist: Eric Handley MD Hemoglobin (Bld) [Mass/Vol] 11.0 g/dL Low 11.7-15.5 [facility] Comment on above: Performed By: #### 6 399, 46915 #### [facility] [place] [address] Building Specialist: Eric Handley MD Lymphocytes (Bld) [#/Vol] 1.411 10*3/uL Normal 850-3900 [facility] Comment on above: Performed By: #### 6 399, 64225 #### [facility] [place] [address] Building Specialist: Eric Handley MD Lymphocytes/100 WBC (Bld) 21.7 % Normal [facility] Comment on above: Performed By: #### 6 399, 17325 #### [facility] [place] [address] Building Specialist: Eric Handley MD MCH (RBC) [Entitic mass] 29.5 pg Normal 27.0-33.0 [facility] Comment on above: Performed By: #### 6 399, 94503 #### [facility] [place] [address] Building Specialist: Eric Handley MD MCHC (RBC) [Mass/Vol] 31.3 g/dL Low 32.0-36.0 [facility] Comment on above: Result Comment: For adults, a slight decrease in the calculated MCHC value (in the range of 30 to 32 g/dL) is most likely not clinically significant; however, it should be interpreted with caution in correlation with other red cell parameters and the patient's clinical condition. Performed By: #### 6 399, 51237 #### [facility] [place] [address] Building Specialist: Eric Handley MD MCV (RBC) [Entitic vol] 94.4 fL Normal 80.0-100.0 [facility] Comment on above: Performed By: #### 6 399, 76882 #### [facility] [place] [address] Building Specialist: Eric Handley MD Monocytes (Bld) [#/Vol] 0.436 10*3/uL Normal 200-950 [facility] Comment on above: Performed By: #### 6 399, 58976 #### [facility] [place] [address] Building Specialist: Eric Handley MD Monocytes/100 WBC (Bld) 6.7 % Normal [facility] Comment on above: Performed By: #### 6 399, 22563 #### [facility] [place] [address] Building Specialist: Eric Handley MD Neutrophils (Bld) [#/Vol] 4.375 10*3/uL Normal 4070-6833 [facility] Comment on above: Performed By: #### 6 399, 32080 #### [facility] [place] [address] Building Specialist: Eric Handley MD Neutrophils/100 WBC (Bld) 67.3 % Normal [facility] Comment on above: Performed By: #### 6 399, 24122 #### [facility] [place] [address] Building Specialist: Eric Handley MD Platelet mean volume (Bld) [Entitic vol] 10.4 fL Normal 7.5-12.5 [facility] Comment on above: Performed By: #### 6 399, 87963 #### [facility] [place] [address] Building Specialist: Eric Handley MD Platelets (Bld) [#/Vol] 314 10*3/uL Normal 140-400 [facility] Comment on above: Performed By: #### 6 399, 43507 #### [facility] [place] [address] Building Specialist: Eric Handley MD RBC (Bld) [#/Vol] 3.73 10*6/uL Low 3.80-5.10 [facility] Comment on above: Performed By: #### 6 399, 78143 #### [facility] [place] [address] Building Specialist: Eric Handley MD WBC (Bld) [#/Vol] 6.5 10*3/uL Normal 3.8-10.8 [facility] Comment on above: Performed By: #### 6 399, 66035 #### [facility] [place] [address] Building Specialist: Eric Handley MD [facility] 07-26-2024 Albumin [Mass/Vol] 4.0 g/dL Normal 3.6-5.1 [facility] Comment on above: Order Comment: FASTI NG:YES FASTING: YES Performed By: #### 6 399, 89105 #### [facility] [place] [address] Building Specialist: Eric Handley MD Albumin/Globulin [Mass ratio] 1.8 {ratio} Normal 1.0-2.5 [facility] Comment on above: Order Comment: FASTI NG:YES FASTING: YES Performed By: #### 6 399, [id number] #### [facility] [place] [address] Building Specialist: Eric Handley MD ALP [Catalytic activity/Vol] 73 U/L Normal 37-153 [facility] Comment on above: Order Comment: FASTI NG:YES FASTING: YES Performed By: #### 6 399, [id number] #### [facility] [address], [address] [place] [address] Building Specialist: Eric Handley MD ALT [Catalytic activity/Vol] 15 U/L Normal 6-29 [facility] Comment on above: Order Comment: FASTI NG:YES FASTING: YES Performed By: #### 6 399, [id number] #### [facility] [address], [address] [place] [address] Building Specialist: Eric Hadnley MD AST [Catalytic activity/Vol] 21 U/L Normal 10-35 [facility] Comment on above: Order Comment: FASTI NG:YES FASTING: YES Performed By: #### 6 399, [id number] #### [facility] [address], [address] [place] [address] Building Specialist: Eric Handley MD Bilirubin [Mass/Vol] 0.4 mg/dL Normal 0.2-1.2 [facility] Comment on above: Order Comment: FASTI NG:YES FASTING: YES Performed By: #### 6 399, [id number] #### [facility] [place] [address] Building Specialist: Eric Handley MD BUN/CREATININE RATIO SEE NOTE: Normal 6-22 [facility] Comment on above: Order Comment: FASTI NG:YES FASTING: YES Result Comment: Not Reported: BUN and Creatinine are within reference range. Performed By: #### 6 399, [id number] #### [facility] [address], [address] [place] [address] Building Specialist: Eric Handley MD Calcium [Mass/Vol] 9.4 mg/dL Normal 8.6-10.4 [facility] Comment on above: Order Comment: FASTI NG:YES FASTING: YES Performed By: #### 6 399, 00778 #### [facility] [address], [address] [place] [address] Building Specialist: Eric Handley MD Chloride [Moles/Vol] 103 mmol/L Normal 98-110 [facility] Comment on above: Order Comment: FASTI NG:YES FASTING: YES Performed By: #### 6 399, [id number] #### [facility] [place] [address] Building Specialist: Eric Handley MD CO2 [Moles/Vol] 29 mmol/L Normal 20-32 [facility] Comment on above: Order Comment: FASTI NG:YES FASTING: YES Performed By: #### 6 399, 57605 #### [facility] [place] [address] Building Specialist: Eric Handley MD Creatinine [Mass/Vol] 0.90 mg/dL Normal 0.60-1.00 [facility] Comment on above: Order Comment: FASTI NG:YES FASTING: YES Performed By: #### 6 399, 73493 #### [facility] [place] [address] Building Specialist: Eric Handley MD GFR/1.73 sq M.predicted among non-blacks MDRD (S/P/Bld) [Vol rate/Area] 68 mL/min/{1.73_m2} Normal > OR = 60 [facility] Comment on above: Order Comment: FASTI NG:YES FASTING: YES Performed By: #### 6 399, 16521 #### [facility] [place] [address] Building Specialist: Eric Handley MD Globulin (S) [Mass/Vol] 2.2 g/dL Normal 1.9-3.7 [facility] Comment on above: Order Comment: FASTI NG:YES FASTING: YES Performed By: #### 6 399, [id number] #### [facility] [place] [address] Building Specialist: Eric Handley MD Glucose [Mass/Vol] 94 mg/dL Normal 65-99 [facility] Comment on above: Order Comment: FASTI NG:YES FASTING: YES Result Comment: Fasting reference interval Performed By: #### 6 399, 38434 #### [facility] [address], [address] [place] [address] Building Specialist: Eric Handley MD Potassium [Moles/Vol] 4.7 mmol/L Normal 3.5-5.3 [facility] Comment on above: Order Comment: FASTI NG:YES FASTING: YES Performed By: #### 6 399, 99689 #### [facility] [address], [address] [place] [address] Building Specialist: Eric Handley MD Protein [Mass/Vol] 6.2 g/dL Normal 6.1-8.1 [facility] Comment on above: Order Comment: FASTI NG:YES FASTING: YES Performed By: #### 6 399, [id number] #### [facility] [place] [address] Building Specialist: Eric Handley MD Sodium [Moles/Vol] 140 mmol/L Normal 135-146 [facility] Comment on above: Order Comment: FASTI NG:YES FASTING: YES Performed By: #### 6 399, 29288 #### [facility] [place] [address] Building Specialist: Eric Handley MD Urea nitrogen [Mass/Vol] 23 mg/dL Normal 7-25 [facility] Comment on above: Order Comment: FASTI NG:YES FASTING: YES Performed By: #### 6 399, 16445 #### [facility] [place] [address] Building Specialist: Eric Handley MD MR CERVICAL SPINE W AND WO I V CONTRASTon 07-17-2024 MR CERVICAL SPINE W AND WO IV CONTRAST Interpreted By: Damari Gibson, STUDY: MR CERVICAL SPINE W AND WO IV CONTRAST INDICATION: Signs/Symptoms:neck pain, right arm radicular pain COMPARISON: Cervical spine MRI 12/21/2022 ACCESSION NUMBER(S): [id number] ORDERING CLINICIAN: CELESTE MORAN TECHNIQUE: Multiplanar multisequence MR imaging of the cervical spine was performed before and after administration of 17 cc Dotarem intravenous contrast, according to standard protocol. FINDINGS: ALIGNMENT: 6 mm anterolisthesis of C3 on C4. VERTEBRAE: Status post ACDF of C5-6. Significant degenerative change of the C4-5 and C6-7 disc endplate complex. Hemangioma within the T1 vertebral body. No abnormal enhancement. DISCS: Severe disc height loss at C4-5 and C6-7. Moderate disc height loss at C3-4. CORD: Flattening of the cord at the C3-4 level secondary to anterolisthesis. No definite associated carcinoma abnormality. Remainder of the visualized cord is unremarkable. PARAVERTEBRAL SOFT TISSUES: Left thyroid parenchyma is not visualized. No definite lesion in the right thyroid parenchyma noted. EVALUATION OF INDIVIDUAL LEVELS: C2-3: No disc herniation spinal canal or neuroforaminal stenosis. C3-4: Anterolisthesis with disc osteophyte complex, facet hypertrophy, and infolding of ligamentum flavum resulting in moderate to severe canal stenosis as well as severe right and moderate left foraminal stenosis. These findings are progressed compared to previous MRI 12/21/2022. C4-5: Disc osteophyte complex asymmetric to the left with facet hypertrophy results in moderate to severe left foraminal stenosis and mild right foraminal stenosis. Spinal canal is mildly narrowed. C5-6: Uncovertebral and facet hypertrophy results in moderate afaz-scrjddt-vxns-right foraminal stenosis. Spinal canal is patent. C6-7: Disc osteophyte complex with facet hypertrophy results in moderate oexa-lgqbqux-njke-right foraminal stenosis and mild narrowing of the spinal canal. C7-T1: No disc herniation spinal canal or neuroforaminal stenosis. IMPRESSION: Status post ACDF of C5-6. Multilevel degenerative change most notable at C3-4 where there is 6 mm anterolisthesis and superimposed degenerative change resulting in moderate to severe canal stenosis as well as severe right and moderate left foraminal stenosis. Flattening the cord at this level without associated edema or myelomalacia. These findings are progressed compared to previous MRI 12/21/2022. Signed by: Damari Gibson 07/17/2024 4:36 PM Dictation workstation: [id number] [facility] MR Cervical spine WO [place] ontrast Ban 07-17-2024 Status post ACDF of C5-6. Multilevel degenerative change most notable at C3-4 where there is 6 mm anterolisthesis and superimposed degenerative change resulting in moderate to severe canal stenosis as well as severe right and moderate left foraminal stenosis. Flattening the cord at this level without associated edema or myelomalacia. These findings are progressed compared to previous MRI 12/21/2022. Signed by: Damari Gibson 07/17/2024 4:36 PM Dictation workstation: [id number] [facility] Interpreted By: Damari England, STUDY: MR CERVICAL SPINE W AND WO IV CONTRAST INDICATION: Signs/Symptoms:neck pain, right arm radicular pain COMPARISON: Cervical spine MRI 12/21/2022 ACCESSION NUMBER(S): [id number] ORDERING CLINICIAN: CELESTE MORAN TECHNIQUE: Multiplanar multisequence MR imaging of the cervical spine was performed before and after administration of 17 cc Dotarem intravenous contrast, according to standard protocol. FINDINGS: ALIGNMENT: 6 mm anterolisthesis of C3 on C4. VERTEBRAE: Status post ACDF of C5-6. Significant degenerative change of the C4-5 and C6-7 disc endplate complex. Hemangioma within the T1 vertebral body. No abnormal enhancement. DISCS: Severe disc height loss at C4-5 and C6-7. Moderate disc height loss at C3-4. CORD: Flattening of the cord at the C3-4 level secondary to anterolisthesis. No definite associated carcinoma abnormality. Remainder of the visualized cord is unremarkable. PARAVERTEBRAL SOFT TISSUES: Left thyroid parenchyma is not visualized. No definite lesion in the right thyroid parenchyma noted. EVALUATION OF INDIVIDUAL LEVELS: C2-3: No disc herniation spinal canal or neuroforaminal stenosis. C3-4: Anterolisthesis with disc osteophyte complex, facet hypertrophy, and infolding of ligamentum flavum resulting in moderate to severe canal stenosis as well as severe right and moderate left foraminal stenosis. These findings are progressed compared to previous MRI 12/21/2022. C4-5: Disc osteophyte complex asymmetric to the left with facet hypertrophy results in moderate to severe left foraminal stenosis and mild right foraminal stenosis. Spinal canal is mildly narrowed. C5-6: Uncovertebral and facet hypertrophy results in moderate qvww-hcujbca-zxfm-right foraminal stenosis. Spinal canal is patent. C6-7: Disc osteophyte complex with facet hypertrophy results in moderate chmo-mzfianb-nauz-right foraminal stenosis and mild narrowing of the spinal canal. C7-T1: No disc herniation spinal canal or neuroforaminal stenosis. [facility] Damari Gibson MD - 07/17/2024 Interpreted By: Damari Gibson, STUDY: MR CERVICAL SPINE W AND WO IV CONTRAST INDICATION: Signs/Symptoms:neck pain, right arm radicular pain COMPARISON: Cervical spine MRI 12/21/2022 ACCESSION NUMBER(S): [id number] ORDERING CLINICIAN: CELESTE MORAN TECHNIQUE: Multiplanar multisequence MR imaging of the cervical spine was performed before and after administration of 17 cc Dotarem intravenous contrast, according to standard protocol. FINDINGS: ALIGNMENT: 6 mm anterolisthesis of C3 on C4. VERTEBRAE: Status post ACDF of C5-6. Significant degenerative change of the C4-5 and C6-7 disc endplate complex. Hemangioma within the T1 vertebral body. No abnormal enhancement. DISCS: Severe disc height loss at C4-5 and C6-7. Moderate disc height loss at C3-4. CORD: Flattening of the cord at the C3-4 level secondary to anterolisthesis. No definite associated carcinoma abnormality. Remainder of the visualized cord is unremarkable. PARAVERTEBRAL SOFT TISSUES: Left thyroid parenchyma is not visualized. No definite lesion in the right thyroid parenchyma noted. EVALUATION OF INDIVIDUAL LEVELS: C2-3: No disc herniation spinal canal or neuroforaminal stenosis. C3-4: Anterolisthesis with disc osteophyte complex, facet hypertrophy, and infolding of ligamentum flavum resulting in moderate to severe canal stenosis as well as severe right and moderate left foraminal stenosis. These findings are progressed compared to previous MRI 12/21/2022. C4-5: Disc osteophyte complex asymmetric to the left with facet hypertrophy results in moderate to severe left foraminal stenosis and mild right foraminal stenosis. Spinal canal is mildly narrowed. C5-6: Uncovertebral and facet hypertrophy results in moderate obwx-vtpeien-uxgq-right foraminal stenosis. Spinal canal is patent. C6-7: Disc osteophyte complex with facet hypertrophy results in moderate jiyu-fodcbqq-mbyy-right foraminal stenosis and mild narrowing of the spinal canal. C7-T1: No disc herniation spinal canal or neuroforaminal stenosis. IMPRESSION: Status post ACDF of C5-6. Multilevel degenerative change most notable at C3-4 where there is 6 mm anterolisthesis and superimposed degenerative change resulting in moderate to severe canal stenosis as well as severe right and moderate left foraminal stenosis. Flattening the cord at this level without associated edema or myelomalacia. These findings are progressed compared to previous MRI 12/21/2022. Signed by: Damari Gibson 07/17/2024 4:36 PM Dictation workstation: [id number] [facility] Work Phone: Radiology Study observation (narrative) [facility] Work Phone: MR Cervical spine WO and W c ontrast IVOrdered By: Damari Gibson on 07-17-2024 [facility] Work Phone: POINT OF CARE ULTRASOUND NO CHARGEon 07-10-2024 POINT OF CARE ULTRASOUND NO CHARGE These images are not reportable by radiology and will not be interpreted by Radiologists. Normal [facility] US Abdomenon 07-10-2024 These images are not reportable by radiology and will not be interpreted by Radiologists. IMAGING XR CERVICAL SPINE COMPLETE 4 -5 VIEWSon 06-26-2024 XR CERVICAL SPINE COMPLETE 4-5 VIEWS Interpreted By: Karthikeyan Blount, STUDY: XR CERVICAL SPINE COMPLETE 4-5 VIEWS; ; 06/26/2024 1:14 pm INDICATION: Signs/Symptoms:pain. ,M25.511 Pain in right shoulder COMPARISON: 11/11/2022 ACCESSION NUMBER(S): [id number] ORDERING CLINICIAN: JASMINE MATHIAS FINDINGS: CERVICAL SPINE-AP, LATERAL AND OBLIQUE VIEWS A discectomy is seen at C5-C6 with anterior cervical fusion. The hardware is intact. A grade 1 spondylolisthesis is seen at C3-4, worsened from 11/11/2022. The degree of displacement at C3-4 is 4.6 mm on the current study, compared to 1.6 mm on 11/11/2022. Marked narrowing of the C3-4, C4-5 and the C6-7 intervertebral discs is seen secondary to severe degenerative disc disease. In particular the C3-4 disc is severely narrowed with further loss of height since 11/11/2022. The C7-T1 vertebrae are in alignment. The odontoid process is intact. Narrowing of the left C3-4 intervertebral neural foramina is seen secondary to the spondylolisthesis. Narrowing of the right C3-4 intervertebral neural foramina is seen secondary to hypertrophic changes at the facet joints. Mild foraminal narrowing at left C6-7 level secondary to hypertrophic changes of the uncovertebral joints. The facets are normal in alignment. Degenerative changes are present at the C3-4 facets. IMPRESSION: Anterior cervical fusion at C5-6 with intact hardware. Worsening spondylolisthesis at C3-4 and further loss in height of the C3-4 disc space compared to 11/11/2022. Degenerative disc disease at C3-4, C4-5 and C6-7. Foraminal narrowing at C3-4 bilaterally. MACRO: None Signed by: Karthikeyan Blount 06/26/2024 3:06 PM Dictation workstation: [id number] [facility] XR Cervical spine 4 or 5 Vie wson 06-26-2024 Anterior cervical fu senthil at C5-6 with intact hardware. Worsening spondylolisthesis at C3-4 and further loss in height of the C3-4 disc space compared to 11/11/2022. Degenerative disc disease at C3-4, C4-5 and C6-7. Foraminal narrowing at C3-4 bilaterally. MACRO: None Signed by: Karthikeyan Blount 06/26/2024 3:06 PM Dictation workstation: [id number] [facility] Interpreted By: Karthikeyan Venegas, STUDY: XR CERVICAL SPINE COMPLETE 4-5 VIEWS; ; 06/26/2024 1:14 pm INDICATION: Signs/Symptoms:pain. ,M25.511 Pain in right shoulder COMPARISON: 11/11/2022 ACCESSION NUMBER(S): [id number] ORDERING CLINICIAN: JASMINE MATHIAS FINDINGS: CERVICAL SPINE-AP, LATERAL AND OBLIQUE VIEWS A discectomy is seen at C5-C6 with anterior cervical fusion. The hardware is intact. A grade 1 spondylolisthesis is seen at C3-4, worsened from 11/11/2022. The degree of displacement at C3-4 is 4.6 mm on the current study, compared to 1.6 mm on 11/11/2022. Marked narrowing of the C3-4, C4-5 and the C6-7 intervertebral discs is seen secondary to severe degenerative disc disease. In particular the C3-4 disc is severely narrowed with further loss of height since 11/11/2022. The C7-T1 vertebrae are in alignment. The odontoid process is intact. Narrowing of the left C3-4 intervertebral neural foramina is seen secondary to the spondylolisthesis. Narrowing of the right C3-4 intervertebral neural foramina is seen secondary to hypertrophic changes at the facet joints. Mild foraminal narrowing at left C6-7 level secondary to hypertrophic changes of the uncovertebral joints. The facets are normal in alignment. Degenerative changes are present at the C3-4 facets. [facility] Karthikeyan Blount MD - 06/26/2024 Interpreted By: Karthikeyan Blount, STUDY: XR CERVICAL SPINE COMPLETE 4-5 VIEWS; ; 06/26/2024 1:14 pm INDICATION: Signs/Symptoms:pain. ,M25.511 Pain in right shoulder COMPARISON: 11/11/2022 ACCESSION NUMBER(S): [id number] ORDERING CLINICIAN: JASMINE MATHIAS FINDINGS: CERVICAL SPINE-AP, LATERAL AND OBLIQUE VIEWS A discectomy is seen at C5-C6 with anterior cervical fusion. The hardware is intact. A grade 1 spondylolisthesis is seen at C3-4, worsened from 11/11/2022. The degree of displacement at C3-4 is 4.6 mm on the current study, compared to 1.6 mm on 11/11/2022. Marked narrowing of the C3-4, C4-5 and the C6-7 intervertebral discs is seen secondary to severe degenerative disc disease. In particular the C3-4 disc is severely narrowed with further loss of height since 11/11/2022. The C7-T1 vertebrae are in alignment. The odontoid process is intact. Narrowing of the left C3-4 intervertebral neural foramina is seen secondary to the spondylolisthesis. Narrowing of the right C3-4 intervertebral neural foramina is seen secondary to hypertrophic changes at the facet joints. Mild foraminal narrowing at left C6-7 level secondary to hypertrophic changes of the uncovertebral joints. The facets are normal in alignment. Degenerative changes are present at the C3-4 facets. IMPRESSION: Anterior cervical fusion at C5-6 with intact hardware. Worsening spondylolisthesis at C3-4 and further loss in height of the C3-4 disc space compared to 11/11/2022. Degenerative disc disease at C3-4, C4-5 and C6-7. Foraminal narrowing at C3-4 bilaterally. MACRO: None Signed by: Karthikeyan Blount 06/26/2024 3:06 PM Dictation workstation: [id number] [facility] Work Phone: Radiology Study observation (narrative) [facility] Work Phone: XR Cervical spine 4 or 5 Vie wsOrdered By: Karthikeyan Blount on 06-26-2024 [facility] Work Phone: XR SHOULDER RIGHT 2+ VIEWSon 06-26-2024 XR SHOULDER RIGHT 2+ VIEWS Interpreted By: Karthikeyan Blount, STUDY: XR SHOULDER RIGHT 2+ VIEWS; ; 06/26/2024 1:15 pm INDICATION: Signs/Symptoms:pain. ,M25.511 Pain in right shoulder COMPARISON: None. ACCESSION NUMBER(S): [id number] ORDERING CLINICIAN: JASMINE MATHIAS FINDINGS: RIGHT SHOULDER AP, Y, OBLIQUE, GRASHEY AND AXILLARY VIEWS The glenohumeral joint is normal in width. There is a small calcification adjacent to the greater tuberosity. Osteophytes are present, at the margins of the AC joint, with some calcification at the superior aspect of the joint. IMPRESSION: Calcific tendinitis. Moderate osteoarthrosis of the AC joint. MACRO: None Signed by: Karthikeyan Blount 06/26/2024 2:49 PM Dictation workstation: [id number] [facility] XR Shoulder - right 2 Viewso n 06-26-2024 Calcific tendinitis. Moderate osteoarthrosis of the AC joint. MACRO: None Signed by: Karthikeyan Blount 06/26/2024 2:49 PM Dictation workstation: [id number] [facility] Interpreted By: Karthikeyan Venegas, STUDY: XR SHOULDER RIGHT 2+ VIEWS; ; 06/26/2024 1:15 pm INDICATION: Signs/Symptoms:pain. ,M25.511 Pain in right shoulder COMPARISON: None. ACCESSION NUMBER(S): [id number] ORDERING CLINICIAN: JASMINE MATHIAS FINDINGS: RIGHT SHOULDER AP, Y, OBLIQUE, GRASHEY AND AXILLARY VIEWS The glenohumeral joint is normal in width. There is a small calcification adjacent to the greater tuberosity. Osteophytes are present, at the margins of the AC joint, with some calcification at the superior aspect of the joint. MMKarthikeyan Haile MD - 06/26/2024 Interpreted By: Karthikeyan Blount, STUDY: XR SHOULDER RIGHT 2+ VIEWS; ; 06/26/2024 1:15 pm INDICATION: Signs/Symptoms:pain. ,M25.511 Pain in right shoulder COMPARISON: None. ACCESSION NUMBER(S): [id number] ORDERING CLINICIAN: JASMINE MATHIAS FINDINGS: RIGHT SHOULDER AP, Y, OBLIQUE, GRASHEY AND AXILLARY VIEWS The glenohumeral joint is normal in width. There is a small calcification adjacent to the greater tuberosity. Osteophytes are present, at the margins of the AC joint, with some calcification at the superior aspect of the joint. IMPRESSION: Calcific tendinitis. Moderate osteoarthrosis of the AC joint. MACRO: None Signed by: Karthikeyan Blount 06/26/2024 2:49 PM Dictation workstation: [id number] [facility] Work Phone: Radiology Study observation (narrative) [facility] Work Phone: XR Shoulder - right 2 ViewsO rdered By: Karthikeyan Blount on 06-26-2024 [facility] Work Phone: [place] PAIN MANAGEMENTon 025 [place] PAIN [place]NAG[place] These images are not reportable by radiology and will not be interpreted by Radiologists. Normal [facility] [place] pain managementon 025 These images are not reportable by radiology and will not be interpreted by Radiologists. IMAGING Transforaminalon 06-06-2024 [facility] Work Phone: Radiology Study observation (narrative) [facility] Work Phone: BI MAMMO BILATERAL SCREENING TOMOSYNTHESISon 06-05-2024 BI MAMMO BILATERAL SCREENING TOMOSYNTHESIS Interpreted By: Ezequiel Erickson, STUDY: BI MAMMO BILATERAL SCREENING TOMOSYNTHESIS; 06/05/2024 8:45 am ACCESSION NUMBER(S): [id number] ORDERING CLINICIAN: JASMINE MATHIAS INDICATION: Screening. COMPARISON: Digital mammograms dated 05/19/2023 FINDINGS: CC and MLO 2D digital mammograms and digital breast tomosynthesis images were obtained of the bilateral breasts. 3-D volume images were reconstructed in 4 views at an independent workstation as 1 mm slices through the breasts in both the CC and MLO projections. Density: The breasts are almost entirely fatty. No discrete mass or focal asymmetry is identified. No suspicious microcalcifications or foci of architectural distortion are seen. There has been no significant change. This study was interpreted with CAD. IMPRESSION: No mammographic evidence of malignancy. BI-RADS CATEGORY: BI-RADS Category: 1 Negative. Recommendation: Annual Screening. Recommended Date: 1 Year. Laterality: Bilateral. MACRO: None Signed by: Ezequiel Erickson 06/05/2024 11:42 AM Dictation workstation: [id number] [facility] DBT Breast - bilateralon No mammographic evid ence of malignancy. BI-RADS CATEGORY: BI-RADS Category: 1 Negative. Recommendation: Annual Screening. Recommended Date: 1 Year. Laterality: Bilateral. MACRO: None Signed by: Ezequiel Erickson 06/05/2024 11:42 AM Dictation workstation: [id number] [facility] Interpreted By: Ezequiel Felix, STUDY: BI MAMMO BILATERAL SCREENING TOMOSYNTHESIS; 06/05/2024 8:45 am ACCESSION NUMBER(S): [id number] ORDERING CLINICIAN: JASMINE MATHIAS INDICATION: Screening. COMPARISON: Digital mammograms dated 05/19/2023 FINDINGS: CC and MLO 2D digital mammograms and digital breast tomosynthesis images were obtained of the bilateral breasts. 3-D volume images were reconstructed in 4 views at an independent workstation as 1 mm slices through the breasts in both the CC and MLO projections. Density: The breasts are almost entirely fatty. No discrete mass or focal asymmetry is identified. No suspicious microcalcifications or foci of architectural distortion are seen. There has been no significant change. This study was interpreted with CAD. [facility] Ezequiel Erickson MD - 06/05/2024 Interpreted By: Ezequiel Erickson, STUDY: BI MAMMO BILATERAL SCREENING TOMOSYNTHESIS; 06/05/2024 8:45 am ACCESSION NUMBER(S): [id number] ORDERING CLINICIAN: JASMINE MATHIAS INDICATION: Screening. COMPARISON: Digital mammograms dated 05/19/2023 FINDINGS: CC and MLO 2D digital mammograms and digital breast tomosynthesis images were obtained of the bilateral breasts. 3-D volume images were reconstructed in 4 views at an independent workstation as 1 mm slices through the breasts in both the CC and MLO projections. Density: The breasts are almost entirely fatty. No discrete mass or focal asymmetry is identified. No suspicious microcalcifications or foci of architectural distortion are seen. There has been no significant change. This study was interpreted with CAD. IMPRESSION: No mammographic evidence of malignancy. BI-RADS CATEGORY: BI-RADS Category: 1 Negative. Recommendation: Annual Screening. Recommended Date: 1 Year. Laterality: Bilateral. MACRO: None Signed by: Ezequiel Erickson 06/05/2024 11:42 AM Dictation workstation: [id number] [facility] Work Phone: Radiology Study observation (narrative) [facility] Work Phone: DBT Breast - bilateralOrdere d By: Ezequiel Erickson on 06-05-2024 [facility] Work Phone: ABN TEST REFUSALon 5 ABN TEST REFUSED 927 Normal [facility] Comment on above: Performed By: #### 6 399, 40550, 74543, 18722, 7600 #### [facility] [address], [address] [place] [id number] Building Specialist: Eric Handley MD JUAN Normal [facility] Comment on above: Result Comment: Be advised that your patient has indicated on the advance beneficiary notice their decision not to receive the following laboratory tests. As a result, the tests will not be performed. Performed By: #### 6 399, 69207, 83281, 84631, 7600 #### [facility] of [address], [address] [place] [address] Building Specialist: Eric Handley MD CBC (INCLUDES DIFF/PLT)on Basophils (Bld) [#/Vol] 0.032 10*3/uL Normal 0-200 [facility] Comment on above: Performed By: #### 6 399, 18815, 06244, 20150, 7600 #### [facility] of [address], [address] [place] [address] Building Specialist: Eric Handley MD Basophils/100 WBC (Bld) 0.9 % Normal [facility] Comment on above: Performed By: #### 6 399, 30762, 16356, 55288, 7600 #### [facility] of [address], [address] [place] [address] Building Specialist: Eric Handley MD Eosinophils (Bld) [#/Vol] 0.102 10*3/uL Normal 15-500 [facility] Comment on above: Performed By: #### 6 399, 98577, 52057, 81647, 7600 #### [facility] of [address], [address] [place] [address] Building Specialist: Eric Handley MD Eosinophils/100 WBC (Bld) 2.9 % Normal [facility] Comment on above: Performed By: #### 6 399, 59948, 22044, 35875, 7600 #### [facility] of [place] [address] Building Specialist: Eric Handley MD Erythrocyte distribution width (RBC) [Ratio] 15.7 % High 11.0-15.0 [facility] Comment on above: Performed By: #### 6 399, 20442, 36191, 62888, 7600 #### [facility] of [address], [address] [place] [address] Building Specialist: Eric Handley MD Hematocrit (Bld) [Volume fraction] 36.5 % Normal 35.0-45.0 [facility] Comment on above: Performed By: #### 6 399, 24384, 03039, 71957, 7600 #### [facility] of [address], [address] [place] [address] Building Specialist: Eric Handley MD Hemoglobin (Bld) [Mass/Vol] 11.4 g/dL Low 11.7-15.5 [facility] Comment on above: Performed By: #### 6 399, 27732, 94311, 04686, 7600 #### [facility] of [place] [address] Building Specialist: Eric Handley MD Lymphocytes (Bld) [#/Vol] 0.889 10*3/uL Normal 850-3900 [facility] Comment on above: Performed By: #### 6 399, 57467, 31509, 34753, 7600 #### [facility] of [address], [address] [place] [address] Building Specialist: Eric Handley MD Lymphocytes/100 WBC (Bld) 25.4 % Normal [facility] Comment on above: Performed By: #### 6 399, 29509, 94338, 07824, 7600 #### [facility] of [place] [address] Building Specialist: Eric Handley MD MCH (RBC) [Entitic mass] 29.8 pg Normal 27.0-33.0 [facility] Comment on above: Performed By: #### 6 399, 35545, 33155, 39453, 7600 #### [facility] of [place] [address] Building Specialist: Eric Handley MD MCHC (RBC) [Mass/Vol] 31.2 g/dL Low 32.0-36.0 [facility] Comment on above: Result Comment: For adults, a slight decrease in the calculated MCHC value (in the range of 30 to 32 g/dL) is most likely not clinically significant; however, it should be interpreted with caution in correlation with other red cell parameters and the patient's clinical condition. Performed By: #### 6 399, 18620, 92323, 35560, 7600 #### [facility] of [address], [address] [place] [address] Building Specialist: Eric Handley MD MCV (RBC) [Entitic vol] 95.5 fL Normal 80.0-100.0 [facility] Comment on above: Performed By: #### 6 399, 60658, 64665, 60555, 7600 #### [facility] of [address], [address] [place] [address] Building Specialist: Eric Handley MD Monocytes (Bld) [#/Vol] 0.564 10*3/uL Normal 200-950 [facility] Comment on above: Performed By: #### 6 399, 08799, 02702, 14376, 7600 #### [facility] of [address], [address] [place] [address] Building Specialist: Eric Handley MD Monocytes/100 WBC (Bld) 16.1 % Normal [facility] Comment on above: Performed By: #### 6 399, 08187, 29558, 77129, 7600 #### [facility] of [place] [address] Building Specialist: Eric Handley MD Neutrophils (Bld) [#/Vol] 1.915 10*3/uL Normal 9956-9130 [facility] Comment on above: Performed By: #### 6 399, 32831, 19692, 31893, 7600 #### [facility] of [address], [address] [place] [address] Building Specialist: Eric Handley MD Neutrophils/100 WBC (Bld) 54.7 % Normal [facility] Comment on above: Performed By: #### 6 399, 13253, 23411, 58922, 7600 #### [facility] of [place] [address] Building Specialist: Eric Handley MD Platelet mean volume (Bld) [Entitic vol] 11.5 fL Normal 7.5-12.5 [facility] Comment on above: Performed By: #### 6 399, 93430, 43469, 75004, 7600 #### [facility] of [address], [address] [place] [address] Building Specialist: Eric Handley MD Platelets (Bld) [#/Vol] 229 10*3/uL Normal 140-400 [facility] Comment on above: Performed By: #### 6 399, 18861, 26394, 50528, 7600 #### [facility] of [place] [address] Building Specialist: Eric Handley MD RBC (Bld) [#/Vol] 3.82 10*6/uL Normal 3.80-5.10 [facility] Comment on above: Performed By: #### 6 399, 65163, 26363, 51071, 7600 #### [facility] of [address], [address] [place] [address] Building Specialist: Eric Handley MD WBC (Bld) [#/Vol] 3.5 10*3/uL Low 3.8-10.8 [facility] Comment on above: Performed By: #### 6 399, 21892, 21128, 62698, 7600 #### [facility] of [place] [address] Building Specialist: Eric Handley MD COMPREHENSIVE METABOLIC PANE L W/ANION GAPon 05-10-2024 ALBUMIN Normal [facility] Comment on above: Performed By: #### 6 399, 15306, 29030, 33143, 7600 #### [facility] of [place] [address] Building Specialist: Eric Handley MD ALKALINE PHOSPHATASE Normal [facility] Comment on above: Performed By: #### 6 399, 29143, 22819, 38446, 7600 #### [facility] of [address] Building Specialist: Eric Handley MD ALT Normal [facility] Comment on above: Performed By: #### 6 399, 47770, 42689, 97692, 7600 #### [facility] of [facility] [address], [address] [place] [address] Building Specialist: Eric Handley MD AST Normal [facility] Comment on above: Performed By: #### 6 399, 26052, 11189, 18495, 7600 #### [facility] of [facility] [address], [address] [place] [address] Building Specialist: Eric Handley MD BILIRUBIN, TOTAL Normal [facility] Comment on above: Performed By: #### 6 399, 79383, 85050, 37729, 7600 #### [facility] of [facility] [address], [address] [place] [address] Building Specialist: Eric Handley MD CALCIUM Normal [facility] Comment on above: Performed By: #### 6 399, 67655, 39265, 52971, 7600 #### [facility] of [facility] [address], [address] [place] [address] Building Specialist: Eric Handley MD CARBON DIOXIDE Normal [facility] Comment on above: Performed By: #### 6 399, 36182, 78359, 85197, 7600 #### [facility] of [facility] [address], [address] [place] [address] Building Specialist: Eric Handley MD CHLORIDE Normal [facility] Comment on above: Performed By: #### 6 399, 94667, 93729, 18587, 7600 #### [facility] of [facility] [address], [address] [place] [address] Building Specialist: Eric Handley MD CREATININE Normal [facility] Comment on above: Performed By: #### 6 399, 35939, 32658, 87430, 7600 #### [facility] of [facility] [address], [address] [place] [address] Building Specialist: Eric Handley MD EGFR Normal [facility] Comment on above: Performed By: #### 6 399, 36180, 78332, 82867, 7600 #### [facility] of [address], [address] [place] [address] Building Specialist: Eric Handley MD ELECTROLYTE BALANCE Normal [facility] Comment on above: Performed By: #### 6 399, 13077, 35954, 74060, 7600 #### [facility] of [address], [address] [place] [address] Building Specialist: Eric Handley MD GLUCOSE Normal [facility] Comment on above: Performed By: #### 6 399, 70937, 09030, 58387, 7600 #### [facility] of [address], [address] [place] [address] Building Specialist: Eric Handley MD POTASSIUM Normal [facility] Comment on above: Performed By: #### 6 399, 06209, 43594, 87892, 7600 #### [facility] of [address], [address] [place] [address] Building Specialist: Eric Handley MD PROTEIN, TOTAL Normal [facility] Comment on above: Performed By: #### 6 399, 15763, 52539, 66618, 7600 #### [facility] of [address], [address] [place] [address] Building Specialist: Eric Handley MD SODIUM Normal [facility] Comment on above: Performed By: #### 6 399, 74793, 36113, 10728, 7600 #### [facility] of [address], [address] [place] [address] Building Specialist: Eric Handley MD UREA NITROGEN (BUN) Normal [facility] Comment on above: Performed By: #### 6 399, 49185, 22332, 56186, 7600 #### [facility] of [address] , [address] [place] [address] Building Specialist: Eric Handley MD LIPID PANEL, [facility] 04-28 CHOL/HDLC RATIO Normal [facility] Comment on above: Order Comment: FASTI NG:YES FASTING: YES Performed By: #### 6 399, 30459, 49130, 37202, 7600 #### [facility] [address], [address] [place] [address] Building Specialist: Eric Handley MD CHOLESTEROL, TOTAL Normal [facility] Comment on above: Order Comment: FASTI NG:YES FASTING: YES Performed By: #### 6 399, 41029, 90624, 90811, 7600 #### [facility] [address], [address] [place] [address] Building Specialist: Eric Handley MD HDL CHOLESTEROL Normal [facility] Comment on above: Order Comment: FASTI NG:YES FASTING: YES Performed By: #### 6 399, 11409, 54954, 26889, 7600 #### [facility] [address], [address] [place] [address] Building Specialist: Eric Handley MD LDL-CHOLESTEROL Normal [facility] Comment on above: Order Comment: FASTI NG:YES FASTING: YES Performed By: #### 6 399, 11179, 32325, 76414, 7600 #### [facility] [address], [address] [place] [address] Building Specialist: Eric Handley MD NON HDL CHOLESTEROL Normal [facility] Comment on above: Order Comment: FASTI NG:YES FASTING: YES Performed By: #### 6 399, 94481, 87101, 43036, 7600 #### [facility] [address], [address] [place] [address] Building Specialist: Eric Handley MD TRIGLYCERIDES Normal [facility] Comment on above: Order Comment: FASTI NG:YES FASTING: YES Performed By: #### 6 399, 56897, 20433, 05615, 7600 #### [facility] [address], [address] [place] [address] Building Specialist: Eric Handley MD TSH W/REFLEX TO FT4on 2024 TSH W/REFLEX TO FT4 Normal [facility] Comment on above: Performed By: #### 6 399, 99095, 92584, 19638, 7600 #### [facility] [address], [address] [place] [address] Building Specialist: Eric Handley MD VITAMIN D,25-OH,TOTAL,IAon 0 05-10-2024 VITAMIN D,25-OH,TOTAL,IA Normal [facility] Comment on above: Performed By: #### 6 399, 32219, 04089, 13022, 7600 #### [facility] of [address], [address] [place] [address] Building Specialist: Eric Handley MD POCT SARS-COV-2/FLU/RSV PCR SYMPTOMATIC manually resultedon 05-07-2024 FLUAV RNA NORA+probe Ql (Resp) Not detected Not Detected [facility] Work Phone: FLUBV RNA NORA+probe Ql (Resp) Not detected Not Detected [facility] Work Phone: RSV RNA NORA+probe Ql (Resp) Not detected Not Detected [facility] Work Phone: SARS-CoV-2 (COVID-19) RNA NORA+probe Ql (Resp) Not detected Not Detected [facility] Work Phone: [facility] Work Phone: CBC (INCLUDES DIFF/PLT)on Basophils (Bld) [#/Vol] 0.029 10*3/uL Normal 0-200 [facility] Comment on above: Performed By: #### 1 0231, 9599 #### [facility] of [address], [address] [place] [address] Building Specialist: Eric Handley MD Basophils/100 WBC (Bld) 0.7 % Normal [facility] Comment on above: Performed By: #### 1 0231, 2099 #### [facility] [address], [address] [place] [address] Building Specialist: Eric Handley MD Eosinophils (Bld) [#/Vol] 0.18 10*3/uL Normal 15-500 [facility] Comment on above: Performed By: #### 1 0231, 6399 #### [facility] of [place] [address] Building Specialist: Eric Handley MD Eosinophils/100 WBC (Bld) 4.4 % Normal [facility] Comment on above: Performed By: #### 1 023, 6399 #### [facility] of [place] [address] Building Specialist: Eric Handley MD Erythrocyte distribution width (RBC) [Ratio] 15.5 % High 11.0-15.0 [facility] Comment on above: Performed By: #### 1 0231, 6399 #### [facility] of [place] [address] Building Specialist: Eric Handley MD Hematocrit (Bld) [Volume fraction] 33.2 % Low 35.0-45.0 [facility] Comment on above: Performed By: #### 1 023, 6399 #### [facility] of [place] [address] Building Specialist: Eric Handley MD Hemoglobin (Bld) [Mass/Vol] 10.7 g/dL Low 11.7-15.5 [facility] Comment on above: Performed By: #### 1 230, 6399 #### [facility] of [place] [address] Building Specialist: Eric Handley MD Lymphocytes (Bld) [#/Vol] 1.021 10*3/uL Normal 850-3900 [facility] Comment on above: Performed By: #### 1 0231, 6399 #### [facility] of [place] [address] Building Specialist: Eric Handley MD Lymphocytes/100 WBC (Bld) 24.9 % Normal [facility] Comment on above: Performed By: #### 1 023, 6399 #### [facility] of [place] [address] Building Specialist: rEic Handley MD MCH (RBC) [Entitic mass] 30.3 pg Normal 27.0-33.0 [facility] Comment on above: Performed By: #### 1 0231, 6399 #### [facility] [place] [address] Building Specialist: Eric Handley MD MCHC (RBC) [Mass/Vol] 32.2 g/dL Normal 32.0-36.0 [facility] Comment on above: Result Comment: For adults, a slight decrease in the calculated MCHC value (in the range of 30 to 32 g/dL) is most likely not clinically significant; however, it should be interpreted with caution in correlation with other red cell parameters and the patient's clinical condition. Performed By: #### 1 0231, 6399 #### [facility] [place] [address] Building Specialist: Eric Handley MD MCV (RBC) [Entitic vol] 94.1 fL Normal 80.0-100.0 [facility] Comment on above: Performed By: #### 1 0231, 6399 #### [facility] [place] [address] Building Specialist: Eric Handley MD Monocytes (Bld) [#/Vol] 0.381 10*3/uL Normal 200-950 [facility] Comment on above: Performed By: #### 1 0231, 6399 #### [facility] of [place] [address] Building Specialist: Eric Handley MD Monocytes/100 WBC (Bld) 9.3 % Normal [facility] Comment on above: Performed By: #### 1 0231, 6399 #### [facility] of [place] [address] Building Specialist: Eric Handley MD Neutrophils (Bld) [#/Vol] 2.489 10*3/uL Normal 7864-8268 [facility] Comment on above: Performed By: #### 1 0231, 6399 #### [facility] of [address], [address] [place] [address] Building Specialist: Eric Handley MD Neutrophils/100 WBC (Bld) 60.7 % Normal [facility] Comment on above: Performed By: #### 1 0231, 6399 #### [facility] of [place] [address] Building Specialist: Eric Handley MD Platelet mean volume (Bld) [Entitic vol] 12.3 fL Normal 7.5-12.5 [facility] Comment on above: Performed By: #### 1 0231, 6399 #### [facility] of [place] [address] Building Specialist: Eric Handley MD Platelets (Bld) [#/Vol] 222 10*3/uL Normal 140-400 [facility] Comment on above: Performed By: #### 1 0231, 6399 #### [facility] of [place] [address] Building Specialist: Eric Handley MD RBC (Bld) [#/Vol] 3.53 10*6/uL Low 3.80-5.10 [facility] Comment on above: Performed By: #### 1 0231, 6399 #### [facility] of [place] [address] Building Specialist: Eric Handley MD WBC (Bld) [#/Vol] 4.1 10*3/uL Normal 3.8-10.8 [facility] Comment on above: Performed By: #### 1 0231, 6399 #### [facility] of [place] [address] Building Specialist: Eric Handley MD [facility] METABOLIC [facility]ANE [facility] 05-04-2024 Albumin [Mass/Vol] 4.0 g/dL Normal 3.6-5.1 [facility] Comment on above: Performed By: #### 1 0231, 6399 #### [facility] of [address], [address] [place] [address] Building Specialist: Eric Handley MD Albumin/Globulin [Mass ratio] 2.0 {ratio} Normal 1.0-2.5 [facility] Comment on above: Performed By: #### 1 0231, 6399 #### [facility] of [address], [address] [place] [address] Building Specialist: Eric Handley MD ALP [Catalytic activity/Vol] 82 U/L Normal 37-153 [facility] Comment on above: Performed By: #### 1 0231, 6399 #### [facility] of [address], [address] [place] [address] Building Specialist: Eric Handley MD ALT [Catalytic activity/Vol] 15 U/L Normal 6-29 [facility] Comment on above: Performed By: #### 1 0231, 6399 #### [facility] of [address], [address] [place] [address] Building Specialist: Eric Handley MD AST [Catalytic activity/Vol] 29 U/L Normal 10-35 [facility] Comment on above: Performed By: #### 1 0231, 6399 #### [facility] of [address], [address] [place] [address] Building Specialist: Eric Handley MD Bilirubin [Mass/Vol] 0.5 mg/dL Normal 0.2-1.2 [facility] Comment on above: Performed By: #### 1 0231, 6399 #### [facility] of [address], [address] [place] [address] Building Specialist: Eric Handley MD BUN/CREATININE RATIO SEE NOTE: Normal 6-22 [facility] Comment on above: Result Comment: Not Reported: BUN and Creatinine are within reference range. Performed By: #### 1 0231, 6399 #### [facility] of [address], [address] [place] [address] Building Specialist: Eric Handley MD Calcium [Mass/Vol] 9.1 mg/dL Normal 8.6-10.4 [facility] Comment on above: Performed By: #### 1 0231, 6399 #### [facility] [place] [address] Building Specialist: Eric Handley MD Chloride [Moles/Vol] 106 mmol/L Normal 98-110 [facility] Comment on above: Performed By: #### 1 230, 6399 #### [facility] [place] [address] Building Specialist: Eric Handley MD CO2 [Moles/Vol] 29 mmol/L Normal 20-32 [facility] Comment on above: Performed By: #### 1 023, 6399 #### [facility] [place] [address] Building Specialist: Eric Handley MD Creatinine [Mass/Vol] 0.77 mg/dL Normal 0.60-1.00 [facility] Comment on above: Performed By: #### 1 023, 6399 #### [facility] [place] [address] Building Specialist: Eric Handley MD GFR/1.73 sq M.predicted among non-blacks MDRD (S/P/Bld) [Vol rate/Area] 82 mL/min/{1.73_m2} Normal > OR = 60 [facility] Comment on above: Performed By: #### 1 230, 6399 #### [facility] of [place] [address] Building Specialist: Eric Handley MD Globulin (S) [Mass/Vol] 2.0 g/dL Normal 1.9-3.7 [facility] Comment on above: Performed By: #### 1 0231, 6399 #### [facility] of [place] [address] Building Specialist: Eric Handley MD Glucose [Mass/Vol] 98 mg/dL Normal 65-99 [facility] Comment on above: Result Comment: Fasting reference interval Performed By: #### 1 0231, 6399 #### [facility] [address], [address] [place] [address] Building Specialist: Eric Handley MD Potassium [Moles/Vol] 4.6 mmol/L Normal 3.5-5.3 [facility] Comment on above: Performed By: #### 1 0231, 6399 #### [facility] [place] [address] Building Specialist: Eric Handley MD Protein [Mass/Vol] 6.0 g/dL Low 6.1-8.1 [facility] Comment on above: Performed By: #### 1 0231, 6399 #### [facility] [place] [address] Building Specialist: Eric Handley MD Sodium [Moles/Vol] 141 mmol/L Normal 135-146 [facility] Comment on above: Performed By: #### 1 0231, 6399 #### [facility] [place] [address] Building Specialist: Eric Handley MD Urea nitrogen [Mass/Vol] 24 mg/dL Normal 7-25 [facility] Comment on above: Performed By: #### 1 0231, 6399 #### [facility] [place] [address] Building Specialist: Eric Handley MD XR HIP RIGHT 2-3 VIEWS (ROUT INE)on 04-04-2024 XR HIP RIGHT 2-3 VIEWS (ROUTINE) EXAMINATION: XR HIP RIGHT 2-3 VIEWS (ROUTINE) 04/04/2024 2:13 PM HISTORY: ORDERING SYSTEM PROVIDED HISTORY: Pain, TECHNOLOGIST PROVIDED HISTORY: Injury/Trauma Reason for exam: Hx of THR, Pt had multiple falls in the last month. Posterior right hip pain. Cancer History: unknown Surgery, RadiationHistory: unknown Encounter Type: Initial Mechanism of injury: Falls ORDERING SYSTEM PROVIDED DIAGNOSIS CODES: R52 Pain COMPARISON: Pelvis x-rays, 06/11/2019. FINDINGS: Two views obtained. There is a right total hip arthroplasty. The arthroplasty hardware is intact. Hardware is in good position. No periprosthetic bone lucency or fractures. No pelvic bone fracture identified. IMPRESSION: Right total hip arthroplasty hardware is intact and in good position. No acute fracture or dislocation identified. No evidence of hardware loosening. [employer] Workstation ID: [id number] Dictated by: DOMINICK CHUNG on TueApr 05, 2024 9:37:16 AM EST Transcribed by: GIL PARKINSON on TueApr 05, 2024 9:59:05 AM EST Finalized by: DOMINICK CHUNG on TueApr 05, 2024 6:54:33 PM EST [facility] Comment on above: Order Comment: Injur y/Trauma or Illness?:Injury/Trauma How long have you had these symptoms (acute/chronic)?:Acute Reason for exam?:Hx of THR, Pt had multiple falls in the last month. Posterior right hip pain. History of cancer?:unknown Surgeries, chemotherapy, or radiation?:unknown Type of Exam?:Initial Mechanism of injury?:Falls XR LUMBAR SPINE STANDARD WIT H FLEX/EXT 4+ VIEWSon 04-04-2024 XR LUMBAR SPINE STANDARD WITH FLEX/EXT 4+ VIEWS EXAMINATION: XR LUMBAR SPINE STANDARD WITH FLEX/EXT 4+ VIEWS 04/04/2024 2:14 pm HISTORY: ORDERING SYSTEM PROVIDED HISTORY: Pain, TECHNOLOGIST PROVIDED HISTORY: Reason for exam: Hx of THR and back surgeries, Pt had multiple falls in the last month. Posterior right hip pain. ORDERING SYSTEM PROVIDED DIAGNOSIS CODES: R52 Pain COMPARISON: Lumbar spine x-ray April 29, 2017. FINDINGS: 5 lumbar type vertebral bodies. Redemonstration of prior laminectomy and posterior instrumented fusion at L4-5 with bilateral pedicle screw and hemant hardware. No evidence of hardware fracture, malalignment, or loosening. No fusion across the L4-5 vertebral bodies. Fusion across the L4-5 facets, unchanged. Mild dextroscoliosis centered around L1-2, worsened. Mild retrolisthesis at T12-L1 through L2-3, most pronounced at L2-3 measuring approximately 5 mm, unchanged. Mild anterolisthesis at L4-5 measuring 3 mm, similar. No change in alignment between flexion and extension views to suggest instability. No evidence of acute osseous fracture. Mild chronic height loss involving the T12 through L2 vertebral bodies, which may in part be degenerative. Advanced spondylosis at the non fused levels, progressed, most pronounced at L1-2 through L3-4. Moderate facet arthropathy, worsened. Previous bilateral sacroplasty. Previous right total hip arthroplasty. Previous cholecystectomy. IMPRESSION: 1. Prior L4-5 laminectomy and posterior instrumented fusion. No evidence of hardware failure. 2. Mild dextroscoliosis, worsened, and mild degenerative spondylolisthesis, unchanged. No evidence of lumbar instability. 3. Advanced spondylosis at the nonfused levels and moderate facet arthropathy, progressed. 4. Previous bilateral sacroplasty. Workstation ID: [id number] Dictated by: RENNY DOVER on TueApr 05, 2024 8:10:29 AM EST Transcribed by: RENNY DOVER on TueApr 05, 2024 8:10:29 AM EST Finalized by: RENNY DOVER on TueApr 05, 2024 8:10:29 AM EST [facility] Comment on above: Order Comment: Injur y/Trauma or Illness?:Injury/Trauma How long have you had these symptoms (acute/chronic)?:Acute Reason for exam?:Hx of THR and back surgeries, Pt had multiple falls in the last month. Posterior right hip pain. History of cancer?:unknown Surgeries, chemotherapy, or radiation?:unknown Type of Exam?:Initial Mechanism of injury?:None CBC W Auto Differential pane l (Bld)on 02-21-2024 Basophils (Bld) [#/Vol] 0.03 x10*3/uL Normal 0.00-0.10 [facility] Comment on above: Performed By: #### 2 4323-8 #### CHARLES COYNE ([id number]) [facility] ([facility]) [address] [place] [address] 65920 Basophils/100 WBC (Bld) 0.6 % Normal 0.0-2.0 [facility] Comment on above: Performed By: #### 2 4323-8 #### CHARLES COYNE ([id number]) [facility] ([facility]) [address] [place] [address] 98406 Eosinophils (Bld) [#/Vol] 0.21 x10*3/uL Normal 0.00-0.40 [facility] Comment on above: Performed By: #### 2 4323-8 #### CHARLES COYNE ([id number]) [facility] ([facility]) [address] [place] [address] 71006 Eosinophils/100 WBC (Bld) 4.0 % Normal 0.0-6.0 [facility] Comment on above: Performed By: #### 2 432-8 #### CHARLES COYNE ([id number]) [facility] ([facility]) [address] [place] [address] 87771 Erythrocyte distribution width (RBC) [Ratio] 15.7 % High 11.5-14.5 [facility] Comment on above: Performed By: #### 2 4322-8 #### CHARLES COYNE ([id number]) [facility] ([facility]) [address] [place] [address] 39153 Hematocrit (Bld) [Volume fraction] 33.5 % Low 36.0-46.0 [facility] Comment on above: Performed By: #### 2 432-8 #### CHARLES COYNE ([id number]) [facility] ([facility]) [address] [place] [address] 96884 Hemoglobin (Bld) [Mass/Vol] 10.6 g/dL Low 12.0-16.0 [facility] Comment on above: Performed By: #### 2 432-8 #### CHARLES COYNE ([id number]) [facility] ([facility]) [address] [place] [address] 53904 Immature granulocytes (Bld) [#/Vol] 0.02 x10*3/uL Normal 0.00-0.50 [facility] Comment on above: Performed By: #### 2 4323-8 #### CHARLES COYNE ([id number]) [facility] ([facility]) [address] [place] [address] 89616 Immature granulocytes/100 WBC (Bld) 0.4 % Normal 0.0-0.9 [facility] Comment on above: Result Comment: Karla ture Granulocyte Count (IG) includes promyelocytes, myelocytes and metamyelocytes but does not include bands. Percent differential counts (%) should be interpreted in the context of the absolute cell counts (cells/UL). Performed By: #### 2 4323-8 #### CHARLES COYNE ([id number]) [facility] ([facility]) [address] [place] [address] 76213 Lymphocytes (Bld) [#/Vol] 1.26 x10*3/uL Normal 0.80-3.00 [facility] Comment on above: Performed By: #### 2 4323-8 #### CHARLES COYNE ([id number]) [facility] ([facility]) [address] [place] [address] 80342 Lymphocytes/100 WBC (Bld) 23.8 % Normal 13.0-44.0 [facility] Comment on above: Performed By: #### 2 432-8 #### CHARLES COYNE ([id number]) [facility] ([facility]) [address] [place] [address] 56730 MCH (RBC) [Entitic mass] 30.5 pg Normal 26.0-34.0 [facility] Comment on above: Performed By: #### 2 432-8 #### CHARLES COYNE ([id number]) [facility] ([facility]) [address] [place] [address] 68398 MCHC (RBC) [Mass/Vol] 31.6 g/dL Low 32.0-36.0 [facility] Comment on above: Performed By: #### 2 432-8 #### CHARLES COYNE ([id number]) [facility] ([facility]) [address] [place] [address] 08940 MCV (RBC) [Entitic vol] 97 fL Normal 80-100 [facility] Comment on above: Performed By: #### 2 4323-8 #### CHARLES COYNE ([id number]) [facility] ([facility]) [address] [place] [address] 86317 Monocytes (Bld) [#/Vol] 0.53 x10*3/uL Normal 0.05-0.80 [facility] Comment on above: Performed By: #### 2 4323-8 #### CHARLES COYNE ([id number]) [facility] ([facility]) [address] [place] [address] 99588 Monocytes/100 WBC (Bld) 10.0 % Normal 2.0-10.0 [facility] Comment on above: Performed By: #### 2 4323-8 #### CHARLES COYNE ([id number]) [facility] ([facility]) [address] [place] [address] 16240 Neutrophils (Bld) [#/Vol] 3.25 x10*3/uL Normal 1.60-5.50 [facility] Comment on above: Result Comment: Perc ent differential counts (%) should be interpreted in the context of the absolute cell counts (cells/uL). Performed By: #### 2 432-8 #### CHARLES COYNE ([id number]) [facility] ([facility]) [address] [place] [address] 43670 Neutrophils/100 WBC (Bld) 61.2 % Normal 40.0-80.0 [facility] Comment on above: Performed By: #### 2 432-8 #### CHARLES COYNE ([id number]) [facility] ([facility]) [address] [place] [address] 77501 Nucleated RBC/100 WBC (Bld) [Ratio] 0.0 /100 WBCs Normal 0.0-0.0 [facility] Comment on above: Performed By: #### 2 4323-8 #### CHARLES COYNE ([id number]) [facility] ([facility]) [address] [place] [address] 73439 Platelets (Bld) [#/Vol] 230 x10*3/uL Normal 150-450 [facility] Comment on above: Performed By: #### 2 4323-8 #### CHARLES COYNE ([id number]) [facility] ([facility]) [address] [place] [address] 28669 RBC (Bld) [#/Vol] 3.47 x10*6/uL Low 4.00-5.20 [facility] Comment on above: Performed By: #### 2 4323-8 #### CHARLES COYNE ([id number]) [facility] ([facility]) [address] [place] [address] 96745 WBC (Bld) [#/Vol] 5.3 x10*3/uL Normal 4.4-11.3 [facility] Comment on above: Performed By: #### 2 4323-8 #### CHARLES COYNE ([id number]) [facility] ([facility]) [facility] [place] [address] Comprehensive metabolic 2000 panelon 02-21-2024 Albumin BCP dye [Mass/Vol] 3.8 g/dL Normal 3.4-5.0 [facility] Comment on above: Performed By: #### 2 4323-8 #### CHARLES COYNE ([id number]) [facility] ([facility]) [address] [place] [address] 27246 ALP [Catalytic activity/Vol] 71 U/L Normal 33-136 [facility] Comment on above: Performed By: #### 2 4323-8 #### CHARLES COYNE ([id number]) [facility] ([facility]) [address] [place] [address] 99839 ALT With P-5'-P [Catalytic activity/Vol] 21 U/L Normal 7-45 [facility] Comment on above: Result Comment: Lori ents treated with Sulfasalazine may generate falsely decreased results for ALT. Performed By: #### 2 4323-8 #### CHARLES COYNE ([id number]) [facility] ([facility]) [address] [place] [address] 16682 Anion gap [Moles/Vol] 9 mmol/L Low 10-20 [facility] Comment on above: Performed By: #### 2 4323-8 #### CHARLES COYNE ([id number]) [facility] ([facility]) [address] [place] [address] 50320 AST With P-5'-P [Catalytic activity/Vol] 30 U/L Normal 9-39 [facility] Comment on above: Performed By: #### 2 4323-8 #### CHARLES COYNE ([id number]) [facility] ([facility]) [address] [place] [address] 50684 Bilirubin [Mass/Vol] 0.5 mg/dL Normal 0.0-1.2 [facility] Comment on above: Performed By: #### 2 4323-8 #### CHARLES COYNE ([id number]) [facility] ([facility]) [address] [place] [address] 23149 Calcium [Mass/Vol] 9.6 mg/dL Normal 8.6-10.3 [facility] Comment on above: Performed By: #### 2 4323-8 #### CHARLES COYNE ([id number]) [facility] ([facility]) [address] [place] [address] 36414 Chloride [Moles/Vol] 105 mmol/L Normal 98-107 [facility] Comment on above: Performed By: #### 2 4323-8 #### CHARLES COYNE ([id number]) [facility] ([facility]) [address] [place] [address] 71885 CO2 [Moles/Vol] 31 mmol/L Normal 21-32 [facility] Comment on above: Performed By: #### 2 432-8 #### CHARLES COYNE ([id number]) [facility] ([facility]) [address] [place] [address] 35569 Creatinine [Mass/Vol] 1.00 mg/dL Normal 0.50-1.05 [facility] Comment on above: Performed By: #### 2 432-8 #### CHARLES COYNE ([id number]) [facility] ([facility]) [address] [place] [address] 65159 Glomerular filtration rate/1.73 sq M.predicted 60 mL/min/1.73m*2 Low >60 [facility] Comment on above: Result Comment: Calc ulations of estimated GFR are performed using the 2020 CKD-EPI Study Refit equation without the race variable for the IDMS-Traceable creatinine methods. https://jasn.asnjournals.org/content/early//ASN.113484247 8 Performed By: #### 2 4323-8 #### CHARLES COYNE ([id number]) [facility] ([facility]) [address] [place] [address] 41731 Glucose [Mass/Vol] 96 mg/dL Normal 74-99 [facility] Comment on above: Performed By: #### 2 4323-8 #### CHARLES COYNE ([id number]) [facility] ([facility]) [address] [place] [address] 97956 Potassium [Moles/Vol] 4.7 mmol/L Normal 3.5-5.3 [facility] Comment on above: Performed By: #### 2 4323-8 #### CHARLES COYNE ([id number]) [facility] ([facility]) [address] [place] [address] 39814 Protein [Mass/Vol] 5.7 g/dL Low 6.4-8.2 [facility] Comment on above: Performed By: #### 2 4323-8 #### CHARLES COYNE ([id number]) [facility] ([facility]) [address] [place] [address] 31527 Sodium [Moles/Vol] 140 mmol/L Normal 136-145 [facility] Comment on above: Performed By: #### 2 4323-8 #### CHARLES COYNE ([id number]) [facility] ([facility]) [address] [place] [address] 90112 Urea nitrogen [Mass/Vol] 21 mg/dL Normal 6-23 [facility] Comment on above: Performed By: #### 2 4323-8 #### CHARLES COYNE ([id number]) [facility] ([facility]) [address] [place] [address] 88567 DEXA BONE DENSITYon 02-13-20 24 DEXA BONE DENSITY Interpreted By: Cal Mandujano, STUDY: DEXA BONE MIUROGL2002/13/2024 9:29 am INDICATION: Signs/Symptoms:r/o senile osteoporosis. The patient is a 73 y/o year old F. COMPARISON: DEXA scan dated 01/27/2022 ACCESSION NUMBER(S): [id number] ORDERING CLINICIAN: BRYAN LUZ TECHNIQUE: DEXA BONE DENSITY FINDINGS: SPINE L1-L4 Bone Mineral Density: 1.446 T-Score 3.9 Z-Score 6.1 Bone Mineral Density change vs baseline: Not reported Bone Mineral Density change vs previous: Not reported LEFT FEMUR -TOTAL Bone Mineral Density: 0.749 T-Score -1.6 Z-Score 0.0 Bone Mineral Density change vs baseline: 6.8 Bone Mineral Density change vs previous: 6.8 LEFT FEMUR -NECK Bone Mineral Density: 0.549 T-Score -2.7 Z-Score -0.8 World Health Organization (WHO) criteria for post-menopausal, Women: Normal: T-score at or above -1 SD Osteopenia: T-score between -1 and -2.5 SD Osteoporosis: T-score at or below -2.5 SD 10-year Fracture Risk: Major Osteoporotic Fracture Not reported Hip Fracture Not reported Note: If no FRAX score is reported, it is because: Some T-score for Spine Total or Hip Total or Femoral Neck at or below -2.5 This exam was performed at [facility] on a [employer] Wi Dexa Unit. IMPRESSION: DEXA: According to World Health Organization criteria, classification is osteoporosis. Followup recommended in two years or sooner as clinically warranted. All images and detailed analysis are available on the Radiology PACS. MACRO: None Signed by: Cal Turner 02/13/2024 10:56 AM Dictation workstation: [id number] [facility] Comment on above: Order Comment: No VF A needed DXA Skeletal system Views fo r bone densityon 02-13-2024 DEXA: According to W orld Health Organization criteria, classification is osteoporosis. Followup recommended in two years or sooner as clinically warranted. All images and detailed analysis are available on the Radiology PACS. MACRO: None Signed by: Cal Turner 02/13/2024 10:56 AM Dictation workstation: [id number] MMODAL Interpreted By: Cal Mandujano, STUDY: DEXA BONE ZSWTVUB2802/13/2024 9:29 am INDICATION: Signs/Symptoms:r/o senile osteoporosis. The patient is a 73 y/o year old F. COMPARISON: DEXA scan dated 01/27/2022 ACCESSION NUMBER(S): [id number] ORDERING CLINICIAN: BRYAN LUZ TECHNIQUE: DEXA BONE DENSITY FINDINGS: SPINE L1-L4 Bone Mineral Density: 1.446 T-Score 3.9 Z-Score 6.1 Bone Mineral Density change vs baseline: Not reported Bone Mineral Density change vs previous: Not reported LEFT FEMUR -TOTAL Bone Mineral Density: 0.749 T-Score -1.6 Z-Score 0.0 Bone Mineral Density change vs baseline: 6.8 Bone Mineral Density change vs previous: 6.8 LEFT FEMUR -NECK Bone Mineral Density: 0.549 T-Score -2.7 Z-Score -0.8 World Health Organization (WHO) criteria for post-menopausal, Women: Normal: T-score at or above -1 SD Osteopenia: T-score between -1 and -2.5 SD Osteoporosis: T-score at or below -2.5 SD 10-year Fracture Risk: Major Osteoporotic Fracture Not reported Hip Fracture Not reported Note: If no FRAX score is reported, it is because: Some T-score for Spine Total or Hip Total or Femoral Neck at or below -2.5 This exam was performed at [facility] on a [employer] [facility] Dexa Unit. [facility] Cal Turner M D - 02/13/2024 Interpreted By: Cal Turner, STUDY: DEXA BONE XERPERA0002/13/2024 9:29 am INDICATION: Signs/Symptoms:r/o senile osteoporosis. The patient is a 73 y/o year old F. COMPARISON: DEXA scan dated 01/27/2022 ACCESSION NUMBER(S): [id number] ORDERING CLINICIAN: BRYAN LUZ TECHNIQUE: DEXA BONE DENSITY FINDINGS: SPINE L1-L4 Bone Mineral Density: 1.446 T-Score 3.9 Z-Score 6.1 Bone Mineral Density change vs baseline: Not reported Bone Mineral Density change vs previous: Not reported LEFT FEMUR -TOTAL Bone Mineral Density: 0.749 T-Score -1.6 Z-Score 0.0 Bone Mineral Density change vs baseline: 6.8 Bone Mineral Density change vs previous: 6.8 LEFT FEMUR -NECK Bone Mineral Density: 0.549 T-Score -2.7 Z-Score -0.8 World Health Organization (WHO) criteria for post-menopausal, Women: Normal: T-score at or above -1 SD Osteopenia: T-score between -1 and -2.5 SD Osteoporosis: T-score at or below -2.5 SD 10-year Fracture Risk: Major Osteoporotic Fracture Not reported Hip Fracture Not reported Note: If no FRAX score is reported, it is because: Some T-score for Spine Total or Hip Total or Femoral Neck at or below -2.5 This exam was performed at [facility] on a [employer] Dexa Unit. IMPRESSION: DEXA: According to World Health Organization criteria, classification is osteoporosis. Followup recommended in two years or sooner as clinically warranted. All images and detailed analysis are available on the Radiology PACS. MACRO: None Signed by: Cal Turner 02/13/2024 10:56 AM Dictation workstation: [id number] [facility] Work Phone: Radiology Study observation (narrative) [facility] Work Phone: DXA Skeletal system Views fo r bone densityOrdered By: Cal Turner on 02-13-2024 [facility] Work Phone: CT HIP RIGHT WO IV CONTRASTo n 02-02-2024 CT HIP RIGHT WO IV CONTRAST Interpreted By: Quincy Flood, STUDY: CT HIP RIGHT WO IV CONTRAST; CT PELVIS WO IV CONTRAST; 02/02/2024 3:49 pm; 02/02/2024 3:50 pm INDICATION: Signs/Symptoms:pain. COMPARISON: Radiographs dated 12/28/2023 ACCESSION NUMBER(S): [id number]; [id number] ORDERING CLINICIAN: JASMINE MATHIAS TECHNIQUE: CT imaging of the pelvis and right hip was obtained without administration of intravenous contrast medium. Coronal and sagittal reformatted images were performed. FINDINGS: OSSEOUS STRUCTURES: No acute fracture. No dislocation. Total right hip arthroplasty. There is no perihardware lucency or fracture to suggest failure. There are postsurgical changes of the sacrum, likely status post treatment of bilateral sacral insufficiency fractures. Partially captured postsurgical changes of the lower lumbar spine. Moderate right sacroiliac degenerative change. Remote fracture deformity of the parasymphyseal pubis on the right. 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 Remote left inferior pubic ramus fracture with nonunion. Mild to moderate left hip osteoarthrosis. Moderate left pubic symphyseal degenerative change. SOFT TISSUES: Colonic diverticulosis without evidence of diverticulitis. IMPRESSION: Postsurgical changes, as above. No evidence of complication. Moderate bilateral sacroiliac degenerative change with insufficiency fractures and post treatment changes. 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 MACRO: None Signed by: Quincy Flood 02/03/2024 10:18 AM Dictation workstation: [id number] [facility] CT PELVIS WO IV CONTRASTon 1 04-03-2023 CT PELVIS WO IV CONTRAST Interpreted By: Quincy Flood, STUDY: CT HIP RIGHT WO IV CONTRAST; CT PELVIS WO IV CONTRAST; 02/02/2024 3:49 pm; 02/02/2024 3:50 pm INDICATION: Signs/Symptoms:pain. COMPARISON: Radiographs dated 12/28/2023 ACCESSION NUMBER(S): [id number]; [id number] ORDERING CLINICIAN: JASMINE MATHIAS TECHNIQUE: CT imaging of the pelvis and right hip was obtained without administration of intravenous contrast medium. Coronal and sagittal reformatted images were performed. FINDINGS: OSSEOUS STRUCTURES: No acute fracture. No dislocation. Total right hip arthroplasty. There is no perihardware lucency or fracture to suggest failure. There are postsurgical changes of the sacrum, likely status post treatment of bilateral sacral insufficiency fractures. Partially captured postsurgical changes of the lower lumbar spine. Moderate right sacroiliac degenerative change. Remote fracture deformity of the parasymphyseal pubis on the right. 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 Remote left inferior pubic ramus fracture with nonunion. Mild to moderate left hip osteoarthrosis. Moderate left pubic symphyseal degenerative change. SOFT TISSUES: Colonic diverticulosis without evidence of diverticulitis. IMPRESSION: Postsurgical changes, as above. No evidence of complication. Moderate bilateral sacroiliac degenerative change with insufficiency fractures and post treatment changes. 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 MACRO: None Signed by: Quincy Flood 02/03/2024 10:18 AM Dictation workstation: [id number] [facility] XR Ankle Viewson 02-01-2024 As above without oss eous injury evident. Please see ordering clinician notes for any quantitative measurement of spinal curvature. Signed by: Cal Turner 02/01/2024 12:11 PM Dictation workstation: [id number] MMODAL Interpreted By: Cal Mandujano, STUDY: XR EOS FULL BODY EAM THROUGH ANKLE 2 VIEWS; 02/01/2024 11:34 am INDICATION: Signs/Symptoms:examine scoliosis (surgical planning). COMPARISON: None. ACCESSION NUMBER(S): [id number] ORDERING CLINICIAN: BRYAN LUZ TECHNIQUE: AP and lateral eos whole-body radiographs FINDINGS: There is mild levoconvexity of the thoracic spine. There is mild dextroconvexity of the lower thoracic and upper lumbar spine. Surgical changes are seen of the cervical spine and lumbar spine. Multilevel discogenic and facet degenerative changes seen of the visualized spine with severe discogenic degenerative changes seen in the lower thoracic into upper lumbar spine. There is a right hip arthroplasty. Mild degenerative changes seen of the left hip. Isdb-bm-gsquxrmh degenerative changes seen of the right knee as visualized. There is a left knee arthroplasty. Lungs are clear. Bowel-gas pattern is nonobstructive. [facility] Cal Turner M D - 02/01/2024 Interpreted By: Cal Turner, STUDY: XR EOS FULL BODY EAM THROUGH ANKLE 2 VIEWS; 02/01/2024 11:34 am INDICATION: Signs/Symptoms:examine scoliosis (surgical planning). COMPARISON: None. ACCESSION NUMBER(S): [id number] ORDERING CLINICIAN: BRYAN LUZ TECHNIQUE: AP and lateral eos whole-body radiographs FINDINGS: There is mild levoconvexity of the thoracic spine. There is mild dextroconvexity of the lower thoracic and upper lumbar spine. Surgical changes are seen of the cervical spine and lumbar spine. Multilevel discogenic and facet degenerative changes seen of the visualized spine with severe discogenic degenerative changes seen in the lower thoracic into upper lumbar spine. There is a right hip arthroplasty. Mild degenerative changes seen of the left hip. Qoeq-ek-jxzslxnc degenerative changes seen of the right knee as visualized. There is a left knee arthroplasty. Lungs are clear. Bowel-gas pattern is nonobstructive. IMPRESSION: As above without osseous injury evident. Please see ordering clinician notes for any quantitative measurement of spinal curvature. Signed by: Cal Turner 02/01/2024 12:11 PM Dictation workstation: [id number] [facility] Work Phone: Radiology Study observation (narrative) [facility] Work Phone: XR Ankle ViewsOrdered By: Peterson Turner on 02-01-2024 [facility] Work Phone: XR EOS FULL BODY EAM THROUGH ANKLE 2 VIEWSon 02-01-2024 XR EOS FULL BODY EAM THROUGH ANKLE 2 VIEWS Interpreted By: Cal Turner, STUDY: XR EOS FULL BODY EAM THROUGH ANKLE 2 VIEWS; 02/01/2024 11:34 am INDICATION: Signs/Symptoms:examine scoliosis (surgical planning). COMPARISON: None. ACCESSION NUMBER(S): [id number] ORDERING CLINICIAN: BRYAN LUZ TECHNIQUE: AP and lateral eos whole-body radiographs FINDINGS: There is mild levoconvexity of the thoracic spine. There is mild dextroconvexity of the lower thoracic and upper lumbar spine. Surgical changes are seen of the cervical spine and lumbar spine. Multilevel discogenic and facet degenerative changes seen of the visualized spine with severe discogenic degenerative changes seen in the lower thoracic into upper lumbar spine. There is a right hip arthroplasty. Mild degenerative changes seen of the left hip. Wsgb-uf-ykowrxrl degenerative changes seen of the right knee as visualized. There is a left knee arthroplasty. Lungs are clear. Bowel-gas pattern is nonobstructive. IMPRESSION: As above without osseous injury evident. Please see ordering clinician notes for any quantitative measurement of spinal curvature. Signed by: Cal Turner 02/01/2024 12:11 PM Dictation workstation: [id number] Normal [facility] Calcidiolon 01-26-2024 25-hydroxyvitamin D3 [Mass/Vol] 45 ng/mL Normal 30-100 [facility] Comment on above: Order Comment: Defic iency: < 20 ng/mlInsufficiency: 20-29 ng/mlSufficiency: 30-100 ng/mlThis assay accurately quantifies the sum of Vitamin D3, 25-Hydroxy and Vitamin D2,25-Hydroxy. Performed By: #### 2 4323-8 #### SOTO STANFORD ([id number]) [facility] ([facility]) [address] [place] [address] Collagen crosslinked C-telop eptideon 01-26-2024 Collagen crosslinked C-telopeptide [Mass/Vol] 259 pg/mL [facility] Comment on above: Result Comment: Xiang enopausal Females: 136-689 pg/mL Postmenopausal Females: 177-1015 pg/mL REFERENCE INTERVAL: C-Telopeptide, Huck-Ehpld-Qgzekr, Serum Access complete set of age- and/or gender-specific reference intervals for this test in the Business e via [place] [facility] ([employer]). Performed By: [facility] [address] [place] [address] Urgent Care Nurse Practitioner: Dejan Rios MD, PhD CLIA Number: [id number] Performed By: #### 2 4323-8 #### CHARLES COYNE ([id number]) [facility] ([facility]) [address] [place] [address] 85977 Collagen crosslinked N-telop eptide/Creatinineon 01-26-2024 Collagen crosslinked N-telopeptide/Crea tinine (U) [Molar ratio] 23 Normal [facility] Comment on above: Result Comment: Norm al adult female: Premenopausal: 17-94 nM BCE/mM creatinine Postmenopausal: 26-124 nM BCE/mM creatinine INTERPRETIVE INFORMATION: N-Telopeptide, Cross Linked, Urine NTx Units = nM BCE/mM creatinine A decrease of 30-40% from the NTx baseline after 3 months of therapy is a typical response to anti-resorptive therapy. NTx = Cross-linked N-telopeptide of Type I Collagen BCE = Bone Collagen Equivalent Access complete set of age- and/or gender-specific reference intervals for this test in the Business e via [place] [facility] ([employer]). Performed By: #### 2 4323-8 #### CHARLES COYNE ([id number]) [facility] ([facility]) [address] [place] [address] 14628 Collagen crosslinked N-telop eptide/Creatinine (U) [Molar ratio]on 01-26-2024 Creatinine (U) [Mass/Vol] 33 mg/dL [facility] Comment on above: Result Comment: Perf ormed By: [facility] [address] [place] [address]600 Urgent Care Nurse Practitioner: Dejan Rios MD, PhD CLIA Number: [id number] Performed By: #### 2 4323-8 #### CHARLES COYNE ([id number]) [facility] ([facility]) [address] [place] [address] Comprehensive metabolic 2000 panelon 01-26-2024 Albumin BCP dye [Mass/Vol] 3.8 g/dL Normal 3.4-5.0 [facility] Comment on above: Performed By: #### 2 4323-8 #### CHARLES COYNE ([id number]) [facility] ([facility]) [address] [place] [address] 34641 ALP [Catalytic activity/Vol] 74 U/L Normal 33-136 [facility] Comment on above: Performed By: #### 2 4322-8 #### CHARLES COYNE ([id number]) [facility] ([facility]) [address] [place] [address] 77166 ALT With P-5'-P [Catalytic activity/Vol] 23 U/L Normal 7-45 [facility] Comment on above: Result Comment: Lori ents treated with Sulfasalazine may generate falsely decreased results for ALT. Performed By: #### 2 4323-8 #### CHARLES COYNE ([id number]) [facility] ([facility]) [address] [place] [address] 09226 Anion gap [Moles/Vol] 9 mmol/L Low 10-20 [facility] Comment on above: Performed By: #### 2 4322-8 #### CHARLES COYNE ([id number]) [facility] ([facility]) [address] [place] [address] 62572 AST With P-5'-P [Catalytic activity/Vol] 30 U/L Normal 9-39 [facility] Comment on above: Performed By: #### 2 4323-8 #### CHARLES COYNE ([id number]) [facility] ([facility]) [address] [place] [address] 65034 Bilirubin [Mass/Vol] 0.6 mg/dL Normal 0.0-1.2 [facility] Comment on above: Performed By: #### 2 4323-8 #### CHARLES COYNE ([id number]) [facility] ([facility]) [address] [place] [address] 81163 Calcium [Mass/Vol] 9.3 mg/dL Normal 8.6-10.3 [facility] Comment on above: Performed By: #### 2 4323-8 #### CHARLES OCYNE ([id number]) [facility] ([facility]) [address] [place] [address] 47152 Chloride [Moles/Vol] 106 mmol/L Normal 98-107 [facility] Comment on above: Performed By: #### 2 4323-8 #### CHARLES COYNE ([id number]) [facility] ([facility]) [address] [place] [address] 18620 CO2 [Moles/Vol] 29 mmol/L Normal 21-32 [facility] Comment on above: Performed By: #### 2 432-8 #### CHARLES COYNE (41951) [facility] ([facility]) [address] [place] [address] 25274 Creatinine [Mass/Vol] 0.96 mg/dL Normal 0.50-1.05 [facility] Comment on above: Performed By: #### 2 4323-8 #### CHARLES COYNE ([id number]) [facility] ([facility]) [address] [place] [address] 55103 Glomerular filtration rate/1.73 sq M.predicted 63 mL/min/1.73m*2 Normal >60 [facility] Comment on above: Result Comment: Calc ulations of estimated GFR are performed using the 2020 CKD-EPI Study Refit equation without the race variable for the IDMS-Traceable creatinine methods. https://jasn.asnjournals.org/content//ASN.146646362 8 Performed By: #### 2 4323-8 #### CHARLES COYNE ([id number]) [facility] ([facility]) [address] [place] [address] 96400 Glucose [Mass/Vol] 64 mg/dL Low 74-99 [facility] Comment on above: Performed By: #### 2 4323-8 #### CHARLES COYNE (28735) [facility] ([facility]) [address] [place] [address] 97585 Potassium [Moles/Vol] 4.4 mmol/L Normal 3.5-5.3 [facility] Comment on above: Performed By: #### 2 4323-8 #### CHARLES COYNE ([id number]) [facility] ([facility]) [address] [place] [address] 87386 Protein [Mass/Vol] 5.9 g/dL Low 6.4-8.2 [facility] Comment on above: Performed By: #### 2 4323-8 #### CHARLES COYNE (66662) [facility] ([facility]) [address] [place] [address] 55347 Sodium [Moles/Vol] 140 mmol/L Normal 136-145 [facility] Comment on above: Performed By: #### 2 4323-8 #### CHARLES COYNE (09101) [facility] ([facility]) [address] [place] [address] 31145 Urea nitrogen [Mass/Vol] 23 mg/dL Normal 6-23 [facility] Comment on above: Performed By: #### 2 4323-8 #### CHARLES COYNE ([id number]) [facility] ([facility]) [address] [place] [address] 28146 POCT SARS-COV-2 PCR manually resultedOrdered By: Sherly Estrada on 12-30-2023 Interpretation and review of laboratory results Abnormal [facility] SARS-CoV-2 (COVID-19) RNA NORA+probe Ql (Resp) Detected Abnormal Not Detected [facility] CT LUMBAR SPINE WO IV CONTRA STon 12-28-2023 CT LUMBAR SPINE WO IV CONTRAST Interpreted By: Good Khan, STUDY: CT LUMBAR SPINE WO IV CONTRAST; ; 12/28/2023 8:15 am INDICATION: Signs/Symptoms:prior lumbar fusion, assess bony anatomy. ,M48.062 Spinal stenosis, lumbar region with neurogenic claudication,M54.17 Radiculopathy, lumbosacral region COMPARISON: MRI lumbar spine from 07/27/2023. CT abdomen and pelvis from 08/08/2013. ACCESSION NUMBER(S): [id number] ORDERING CLINICIAN: BRYAN LUZ TECHNIQUE: Routine unenhanced CT of the lumbar spine was performed. FINDINGS: This report assumes 5 non-rib bearing lumbar vertebral bodies. The lowest intervertebral disc will be labeled L5-S1. There is mild levocurvature. There is stable mild retrolisthesis at T12-L1, L1-L2, and L2-L3 and grade 1 anterolisthesis at L4-L5 and L5-S1. Vertebral body heights are maintained. There is moderate intervertebral disc height narrowing at T11-T12, T12-L1, L1-L2, and L2-L3 and mild intervertebral disc height narrowing at L3-L4. There is vacuum disc phenomenon in the partially visualized T10-T11 intervertebral disc and within the T11-T12, T12-L1, L1-L2, L2-L3, and L3-L4 intervertebral discs. There are chronic degenerative endplate changes at multiple levels including endplate sclerosis and osteophyte formation. There are postoperative changes from laminectomies at L3-L4 through L5-S1 with posterior spinal fusion including placement of bilateral pedicular screws which terminate within the L4 and L5 vertebral bodies and are interconnected by parallel and transverse rods. The superior portions of the bilateral rods project into the posterior elements at L2-L3 adjacent to the facet joint space. There is no evidence of hardware complication. There is at least partial osseous fusion of the bilateral posterior elements at L3-L4 and complete fusion of the posterior elements at L4-L5 at the level of the facet joints. There is moderate left facet osteoarthropathy at T12-L1, [id number] bilateral facet osteoarthropathy at L1-L2, and marked bilateral facet osteoarthropathy at L2-L3. There are multilevel degenerative changes with spinal canal narrowing and neural foraminal narrowing with spinal canal narrowing most pronounced at the level of L2-L3, better seen on the prior MRI lumbar spine study. There is hyperattenuating material located within the bilateral sacral ala and within the sacroiliac joints which may reflect material injected for repair of potential fractures. IMPRESSION: 1. Postoperative changes from laminectomies and spinal fusion involving the lower lumbar spine with no evidence of hardware complication. 2. At least partial osseous fusion of the posterior elements at L3-L4 and complete osseous fusion of the posterior elements at L4-L5, similar in appearance compared to the prior CT abdomen and pelvis from 2014. 3. There is facet osteoarthropathy at multiple levels. 4. Multilevel degenerative changes of the lumbar spine detailed above and on the prior MRI lumbar spine report. This study was interpreted at [facility]. MACRO: None Signed by: Good Khan 12/29/2023 9:11 AM Dictation workstation: [id number] [facility] XR HIP RIGHT WITH PELVIS WHE N PERFORMED 2 OR 3 VIEWSon 12-28-2023 XR HIP RIGHT WITH PELVIS WHEN PERFORMED 2 OR 3 VIEWS Interpreted By: Anshul Flood, STUDY: XR HIP RIGHT WITH PELVIS WHEN PERFORMED 2 OR 3 VIEWS; 12/28/2023 8:20 am INDICATION: Signs/Symptoms:hip pain. COMPARISON: 02/20/2020 ACCESSION NUMBER(S): [id number] ORDERING CLINICIAN: JASMINE MATHIAS FINDINGS: AP view of the pelvis and two views of the right hip are obtained. Total right hip arthroplasty with intact alignment. Remote fracture deformity of the left superior and inferior pubic rami and pubic symphysis. Postsurgical changes of the visualized lower lumbar spine and SI joints. Degenerative changes of the left hip. IMPRESSION: No acute fracture or dislocation. Total right hip arthroplasty with intact alignment. Remote chronic stable posttraumatic and postsurgical changes as described. Signed by: Anshul Flood 12/29/2023 9:50 AM Dictation workstation: [id number] [facility] CBC W Auto Differential pane l (Bld)on 12-06-2023 Basophils (Bld) [#/Vol] 0.02 x10*3/uL Normal 0.00-0.10 [facility] Comment on above: Performed By: #### 5 7021-8 #### CHARLES COYNE ([id number]) [facility] ([facility]) [address] [place] [address] 26416 Basophils/100 WBC (Bld) 0.4 % Normal 0.0-2.0 [facility] Comment on above: Performed By: #### 5 7021-8 #### CHARLES COYNE ([id number]) [facility] ([facility]) [address] [place] [address] 16118 Eosinophils (Bld) [#/Vol] 0.28 x10*3/uL Normal 0.00-0.40 [facility] Comment on above: Performed By: #### 5 7021-8 #### CHARLES COYNE (75757) [facility] ([facility]) [address] [place] [address] 07550 Eosinophils/100 WBC (Bld) 5.9 % Normal 0.0-6.0 [facility] Comment on above: Performed By: #### 7021-8 #### CHARLES COYNE (78433) [facility] ([facility]) [address] [place] [address] 55758 Erythrocyte distribution width (RBC) [Ratio] 15.7 % High 11.5-14.5 [facility] Comment on above: Performed By: #### 5 7021-8 #### CHARLES COYNE ([id number]) [facility] ([facility]) [address] [place] [address] 52336 Hematocrit (Bld) [Volume fraction] 33.5 % Low 36.0-46.0 [facility] Comment on above: Performed By: #### 5 7021-8 #### CHARLES COYNE (87532) [facility] ([facility]) [address] [place] [address] 40018 Hemoglobin (Bld) [Mass/Vol] 10.4 g/dL Low 12.0-16.0 [facility] Comment on above: Performed By: #### 5 7021-8 #### CHARLES COYNE (56909) [facility] ([facility]) [address] [place] [address] 39019 Immature granulocytes (Bld) [#/Vol] 0.02 x10*3/uL Normal 0.00-0.50 [facility] Comment on above: Performed By: #### 5 7021-8 #### CHARLES COYNE (24526) [facility] ([facility]) [address] [place] [address] 40373 Immature granulocytes/100 WBC (Bld) 0.4 % Normal 0.0-0.9 [facility] Comment on above: Result Comment: Karla ture Granulocyte Count (IG) includes promyelocytes, myelocytes and metamyelocytes but does not include bands. Percent differential counts (%) should be interpreted in the context of the absolute cell counts (cells/UL). Performed By: #### 5 7021-8 #### CHARLES COYNE (07361) [facility] ([facility]) [address] [place] [address] 23053 Lymphocytes (Bld) [#/Vol] 1.23 x10*3/uL Normal 0.80-3.00 [facility] Comment on above: Performed By: #### 5 7021-8 #### CHARLES COYNE ([id number]) [facility] ([facility]) [address] [place] [address] 46009 Lymphocytes/100 WBC (Bld) 25.9 % Normal 13.0-44.0 [facility] Comment on above: Performed By: #### 5 7021-8 #### CHARLES COYNE (56849) [facility] ([facility]) [address] [place] [address] 02577 MCH (RBC) [Entitic mass] 31.3 pg Normal 26.0-34.0 [facility] Comment on above: Performed By: #### 5 7021-8 #### CHARLES COYNE (56960) [facility] ([facility]) [address] [place] [address] 64445 MCHC (RBC) [Mass/Vol] 31.0 g/dL Low 32.0-36.0 [facility] Comment on above: Performed By: #### 5 7021-8 #### CHARLES COYNE ([id number]) [facility] ([facility]) [address] [place] [address] 38011 MCV (RBC) [Entitic vol] 101 fL High 80-100 [facility] Comment on above: Performed By: #### 5 7021-8 #### CHARLES COYNE ([id number]) [facility] ([facility]) [address] [place] [address] 69710 Monocytes (Bld) [#/Vol] 0.33 x10*3/uL Normal 0.05-0.80 [facility] Comment on above: Performed By: #### 5 7021-8 #### CHARLES COYNE ([id number]) [facility] ([facility]) [address] [place] [address] 47136 Monocytes/100 WBC (Bld) 7.0 % Normal 2.0-10.0 [facility] Comment on above: Performed By: #### 5 7021-8 #### CHARLES COYNE (17159) [facility] ([facility]) [address] [place] [address] 34899 Neutrophils (Bld) [#/Vol] 2.86 x10*3/uL Normal 1.60-5.50 [facility] Comment on above: Result Comment: Perc ent differential counts (%) should be interpreted in the context of the absolute cell counts (cells/uL). Performed By: #### 5 7021-8 #### CHARLES COYNE ([id number]) [facility] ([facility]) [address] [place] [address] 30980 Neutrophils/100 WBC (Bld) 60.4 % Normal 40.0-80.0 [facility] Comment on above: Performed By: #### 5 7021-8 #### CHARLES COYNE ([id number]) [facility] ([facility]) [address] [place] [address] 57548 Nucleated RBC/100 WBC (Bld) [Ratio] 0.0 /100 WBCs Normal 0.0-0.0 [facility] Comment on above: Performed By: #### 5 7021-8 #### CHARLES COYNE ([id number]) [facility] ([facility]) [address] [place] [address] 15290 Platelets (Bld) [#/Vol] 216 x10*3/uL Normal 150-450 [facility] Comment on above: Performed By: #### 5 7021-8 #### CHARLES COYNE (18157) [facility] ([facility]) [address] [place] [address] 40652 RBC (Bld) [#/Vol] 3.32 x10*6/uL Low 4.00-5.20 [facility] Comment on above: Performed By: #### 5 7021-8 #### CHARLES COYNE (62793) [facility] ([facility]) [address] [place] [address] WBC (Bld) [#/Vol] 4.7 x10*3/uL Normal 4.4-11.3 [facility] Comment on above: Performed By: #### 5 7021-8 #### CHARLES COYNE ([id number]) [facility] ([facility]) [address] [place] [address] Comprehensive metabolic 2000 panelon 12-06-2023 Albumin BCP dye [Mass/Vol] 3.7 g/dL Normal 3.4-5.0 [facility] Comment on above: Performed By: #### 2 4323-8 #### CHARLES COYNE (47808) [facility] ([facility]) [address] [place] [address] 30636 ALP [Catalytic activity/Vol] 64 U/L Normal 33-136 [facility] Comment on above: Performed By: #### 2 4323-8 #### CHARLES COYNE ([id number]) [facility] ([facility]) [address] [place] [address] 72266 ALT With P-5'-P [Catalytic activity/Vol] 19 U/L Normal 7-45 [facility] Comment on above: Result Comment: Lori ents treated with Sulfasalazine may generate falsely decreased results for ALT. Performed By: #### 2 4323-8 #### CHARLES COYNE ([id number]) [facility] ([facility]) [address] [place] [address] 75782 Anion gap [Moles/Vol] 8 mmol/L Low 10-20 [facility] Comment on above: Performed By: #### 2 4323-8 #### CHARLES COYNE (58746) [facility] ([facility]) [address] [place] [address] 84720 AST With P-5'-P [Catalytic activity/Vol] 27 U/L Normal 9-39 [facility] Comment on above: Performed By: #### 2 4323-8 #### CHARLES COYNE (67998) [facility] ([facility]) [address] [place] [address] Bilirubin [Mass/Vol] 0.5 mg/dL Normal 0.0-1.2 [facility] Comment on above: Performed By: #### 2 4323-8 #### CHARLES COYNE ([id number]) [facility] ([facility]) [address] [place] [address] Calcium [Mass/Vol] 9.2 mg/dL Normal 8.6-10.3 [facility] Comment on above: Performed By: #### 2 4323-8 #### CHARLES COYNE (49123) [facility] ([facility]) [address] [place] [address] Chloride [Moles/Vol] 107 mmol/L Normal 98-107 [facility] Comment on above: Performed By: #### 2 4323-8 #### CHARLES COYNE ([id number]) [facility] ([facility]) [address] [place] [address] CO2 [Moles/Vol] 31 mmol/L Normal 21-32 [facility] Comment on above: Performed By: #### 2 4323-8 #### CHARLES COYNE ([id number]) [facility] ([facility]) [facility] [place] [address] Creatinine [Mass/Vol] 0.89 mg/dL Normal 0.50-1.05 [facility] Comment on above: Performed By: #### 2 4323-8 #### CHARLES COYNE ([id number]) [facility] ([facility]) [address] [place] [address] 90747 Glomerular filtration rate/1.73 sq M.predicted 69 mL/min/1.73m*2 Normal >60 [facility] Comment on above: Result Comment: Calc ulations of estimated GFR are performed using the 2020 CKD-EPI Study Refit equation without the race variable for the IDMS-Traceable creatinine methods. https://jasn.asnjournals.org/content/early/ASN.000192141 8 Performed By: #### 2 4323-8 #### CHARLES COYNE (06375) [facility] ([facility]) [address] [place] [address] 93369 Glucose [Mass/Vol] 93 mg/dL Normal 74-99 [facility] Comment on above: Performed By: #### 2 4323-8 #### CHARLES COYNE ([id number]) [facility] ([facility]) [address] [place] [address] 41676 Potassium [Moles/Vol] 4.6 mmol/L Normal 3.5-5.3 [facility] Comment on above: Performed By: #### 2 432-8 #### CHARLES COYNE (69247) [facility] ([facility]) [address] [place] [address] 23698 Protein [Mass/Vol] 5.6 g/dL Low 6.4-8.2 [facility] Comment on above: Performed By: #### 2 4323-8 #### CHARLES COYNE ([id number]) [facility] ([facility]) [address] [place] [address] 01696 Sodium [Moles/Vol] 141 mmol/L Normal 136-145 [facility] Comment on above: Performed By: #### 2 4323-8 #### CHARLES COYNE (17686) [facility] ([facility]) [address] [place] [address] 10936 Urea nitrogen [Mass/Vol] 22 mg/dL Normal 6-23 [facility] Comment on above: Performed By: #### 2 4323-8 #### CHARLES COYNE ([id number]) [facility] ([facility]) [address] [place] [address] 97639 CBC W Auto Differential pane l (Bld)on 11-04-2023 Basophils (Bld) [#/Vol] 0.05 x10*3/uL Normal 0.00-0.10 [facility] Comment on above: Performed By: #### 5 7021-8 #### CHARLES COYNE ([id number]) [facility] ([facility]) [address] [place] [address] 47449 Basophils/100 WBC (Bld) 0.8 % Normal 0.0-2.0 [facility] Comment on above: Performed By: #### 5 7021-8 #### CHARLES COYNE ([id number]) [facility] ([facility]) [address] [place] [address] 28460 Eosinophils (Bld) [#/Vol] 0.36 x10*3/uL Normal 0.00-0.40 [facility] Comment on above: Performed By: #### 5 7021-8 #### CHARLES COYNE ([id number]) [facility] ([facility]) [address] [place] [address] 97156 Eosinophils/100 WBC (Bld) 5.5 % Normal 0.0-6.0 [facility] Comment on above: Performed By: #### 5 7021-8 #### CHARLES COYNE (78303) [facility] ([facility]) [address] [place] [address] 03173 Erythrocyte distribution width (RBC) [Ratio] 15.4 % High 11.5-14.5 [facility] Comment on above: Performed By: #### 5 7021-8 #### CHARLES COYNE (10943) [facility] ([facility]) [address] [place] [address] 41073 Hematocrit (Bld) [Volume fraction] 36.5 % Normal 36.0-46.0 [facility] Comment on above: Performed By: #### 5 7021-8 #### CHARLES COYNE (43493) [facility] ([facility]) [address] [place] [address] 33908 Hemoglobin (Bld) [Mass/Vol] 11.1 g/dL Low 12.0-16.0 [facility] Comment on above: Performed By: #### 5 7021-8 #### CHARLES COYNE (94546) [facility] ([facility]) [address] [place] [address] 76981 Immature granulocytes (Bld) [#/Vol] 0.12 x10*3/uL Normal 0.00-0.50 [facility] Comment on above: Performed By: #### 5 7021-8 #### CHARLES COYNE ([id number]) [facility] ([facility]) [address] [place] [address] 91812 Immature granulocytes/100 WBC (Bld) 1.8 % High 0.0-0.9 [facility] Comment on above: Result Comment: Karla ture Granulocyte Count (IG) includes promyelocytes, myelocytes and metamyelocytes but does not include bands. Percent differential counts (%) should be interpreted in the context of the absolute cell counts (cells/UL). Performed By: #### 5 7021-8 #### CHARLES COYNE ([id number]) [facility] ([facility]) [address] [place] [address] Lymphocytes (Bld) [#/Vol] 1.27 x10*3/uL Normal 0.80-3.00 [facility] Comment on above: Performed By: #### 5 7021-8 #### CHARLES COYNE (05129) [facility] ([facility]) [address] [place] [address] 58534 Lymphocytes/100 WBC (Bld) 19.3 % Normal 13.0-44.0 [facility] Comment on above: Performed By: #### 5 7021-8 #### CHARLES COYNE (13255) [facility] ([facility]) [address] [place] [address] 64110 MCH (RBC) [Entitic mass] 30.4 pg Normal 26.0-34.0 [facility] Comment on above: Performed By: #### 5 7021-8 #### CHARLES COYNE (20939) [facility] ([facility]) [address] [place] [address] 11827 MCHC (RBC) [Mass/Vol] 30.4 g/dL Low 32.0-36.0 [facility] Comment on above: Performed By: #### 5 7021-8 #### CHARLES COYNE (52618) [facility] ([facility]) [address] [place] [address] 02522 MCV (RBC) [Entitic vol] 100 fL Normal 80-100 [facility] Comment on above: Performed By: #### 5 7021-8 #### CHARLES COYNE (79228) [facility] ([facility]) [address] [place] [address] [id number] Monocytes (Bld) [#/Vol] 0.45 x10*3/uL Normal 0.05-0.80 [facility] Comment on above: Performed By: #### 5 7021-8 #### CHARLES COYNE ([id number]) [facility] ([facility]) [address] [place] [address] [id number] Monocytes/100 WBC (Bld) 6.8 % Normal 2.0-10.0 [facility] Comment on above: Performed By: #### 5 7021-8 #### CHARLES COYNE ([id number]) [facility] [facility]) [address] [place] [address] 48971 Neutrophils (Bld) [#/Vol] 4.33 x10*3/uL Normal 1.60-5.50 [facility] Comment on above: Result Comment: Perc ent differential counts (%) should be interpreted in the context of the absolute cell counts (cells/uL). Performed By: #### 5 7021-8 #### CHARLES COYNE ([id number]) [facility] ([facility]) [address] [place] [address] 52235 Neutrophils/100 WBC (Bld) 65.8 % Normal 40.0-80.0 [facility] Comment on above: Performed By: #### 5 7021-8 #### CHARLES COYNE ([id number]) [facility] ([facility]) [address] [place] [address] 75363 Nucleated RBC/100 WBC (Bld) [Ratio] 0.0 /100 WBCs Normal 0.0-0.0 [facility] Comment on above: Performed By: #### 5 7021-8 #### CHARLES COYNE ([id number]) [facility] ([facility]) [address] [place] [address] 52441 Platelets (Bld) [#/Vol] 326 x10*3/uL Normal 150-450 [facility] Comment on above: Performed By: #### 5 7021-8 #### CHARLES COYNE ([id number]) [facility] ([facility]) [address] [place] [address] 88307 RBC (Bld) [#/Vol] 3.65 x10*6/uL Low 4.00-5.20 [facility] Comment on above: Performed By: #### 5 7021-8 #### CHARLES COYNE ([id number]) [facility] ([facility]) [address] [place] [address] 87785 WBC (Bld) [#/Vol] 6.6 x10*3/uL Normal 4.4-11.3 [facility] Comment on above: Performed By: #### 5 7021-8 #### CHARLES COYNE ([id number]) [facility] ([facility]) [address] [place] [address] 65935 Calcidiolon 11-04-2023 25-hydroxyvitamin D3 [Mass/Vol] 43 ng/mL Normal 30-100 [facility] Comment on above: Order Comment: Defic iency: < 20 ng/ml Insufficiency: 20-29 ng/ml Sufficiency: 30-100 ng/ml This assay accurately quantifies the sum of Vitamin D3, 25-Hydroxy and Vitamin D2,25-Hydroxy. Performed By: #### 1 989-3 #### CHARLES COYNE ([id number]) [facility] ([facility]) [address] [place] [address] 44380 Cobalaminson 11-04-2023 Cobalamin (Vitamin B12) [Mass/Vol] 939 pg/mL High 211-911 [facility] Comment on above: Performed By: #### 2 132-9 #### SANJUANA Marcelino ([id number]) [facility] ([facility]) [id number] [place] [address] 30115 Comprehensive metabolic 2000 panelon 11-04-2023 Albumin BCP dye [Mass/Vol] 3.8 g/dL Normal 3.4-5.0 [facility] Comment on above: Performed By: #### 2 4323-8 #### CHARLES COYNE ([id number]) [facility] ([facility]) [address] [place] [address] ALP [Catalytic activity/Vol] 70 U/L Normal 33-136 [facility] Comment on above: Performed By: #### 2 4322-8 #### CHARLES COYNE ([id number]) [facility] ([facility]) [address] [place] [address] ALT With P-5'-P [Catalytic activity/Vol] 19 U/L Normal 7-45 [facility] Comment on above: Result Comment: Lori ents treated with Sulfasalazine may generate falsely decreased results for ALT. Performed By: #### 2 4322-8 #### CHARLES COYNE ([id number]) [facility] ([facility]) [address] [place] [address] Anion gap [Moles/Vol] 10 mmol/L Normal 10-20 [facility] Comment on above: Performed By: #### 2 4322-8 #### CHARLES COYNE ([id number]) [facility] ([facility]) [address] [place] [address] AST With P-5'-P [Catalytic activity/Vol] 23 U/L Normal 9-39 [facility] Comment on above: Performed By: #### 2 4322-8 #### CHARLES COYNE ([id number]) [facility] ([facility]) [address] [place] [address] Bilirubin [Mass/Vol] 0.4 mg/dL Normal 0.0-1.2 [facility] Comment on above: Performed By: #### 2 4322-8 #### CHARLES COYNE ([id number]) [facility] ([facility]) [address] [place] [address] Calcium [Mass/Vol] 9.3 mg/dL Normal 8.6-10.3 [facility] Comment on above: Performed By: #### 2 432-8 #### CHARLES COYNE ([id number]) [facility] ([facility]) [address] [place] [address] Chloride [Moles/Vol] 104 mmol/L Normal 98-107 [facility] Comment on above: Performed By: #### 2 4323-8 #### CHARLES COYNE ([id number]) [facility] ([facility]) [address] [place] [address] 93669 CO2 [Moles/Vol] 31 mmol/L Normal 21-32 [facility] Comment on above: Performed By: #### 2 4323-8 #### CHARLES COYNE ([id number]) [facility] ([facility]) [address] [place] [address] 06670 Creatinine [Mass/Vol] 0.91 mg/dL Normal 0.50-1.05 [facility] Comment on above: Performed By: #### 2 4323-8 #### CHARLES COYNE ([id number]) [facility] ([facility]) [address] [place] [address] 65267 Glomerular filtration rate/1.73 sq M.predicted 67 mL/min/1.73m*2 Normal >60 [facility] Comment on above: Result Comment: Calc ulations of estimated GFR are performed using the 2020 CKD-EPI Study Refit equation without the race variable for the IDMS-Traceable creatinine methods. https://jasn.asnjournals.org/content/early/ASN.416461637 8 Performed By: #### 2 432-8 #### CHARLES COYNE ([id number]) [facility] ([facility]) [address] [place] [address] 93960 Glucose [Mass/Vol] 100 mg/dL High 74-99 [facility] Comment on above: Performed By: #### 2 4323-8 #### CHARLES COYNE ([id number]) [facility] ([facility]) [address] [place] [address] 15987 Potassium [Moles/Vol] 4.6 mmol/L Normal 3.5-5.3 [facility] Comment on above: Performed By: #### 2 4323-8 #### CHARLES COYNE ([id number]) [facility] ([facility]) [address] [place] [address] 34940 Protein [Mass/Vol] 5.9 g/dL Low 6.4-8.2 [facility] Comment on above: Performed By: #### 2 4323-8 #### CHARLES COYNE ([id number]) [facility] ([facility]) [address] [place] [address] Sodium [Moles/Vol] 140 mmol/L Normal 136-145 [facility] Comment on above: Performed By: #### 2 4323-8 #### CHARLES COYNE ([id number]) [facility] ([facility]) [address] [place] [address] Urea nitrogen [Mass/Vol] 19 mg/dL Normal 6-23 [facility] Comment on above: Performed By: #### 2 4323-8 #### CHARLES COYNE ([id number]) [facility] ([facility]) [address] [place] [address] 81736 Lipid 1996 panelon 4 Cholesterol [Mass/Vol] 143 mg/dL Normal 0-199 [facility] Comment on above: Result Comment: Age Desirable Borderline High High 0-19 Y 0 - 169 170 - 199 >/= 200 20-24 Y 0 - 189 190 - 224 >/= 225 >24 Y 0 - 199 200 - 239 >/= 240 All ranges are based on fasting samples. Specific therapeutic targets will vary based on patient-specific cardiac risk. Pediatric guidelines reference:Pediatrics 2011, 128(S5).Adult guidelines reference: NCEP ATPIII Guidelines,ALFIE 2001, 258:2486-97 Venipuncture immediately after or during the administration of Metamizole may lead to falsely low results. Testing should be performed immediately prior to Metamizole dosing. Performed By: #### 2 4331-1 #### CHARLES COYNE ([id number]) [facility] ([facility]) [address] [place] [address] 43728 Cholesterol in HDL [Mass/Vol] 53.0 mg/dL Normal [facility] Comment on above: Result Comment: Age Very Low Low Normal High 0-19 Y < 35 < 40 40-45 ---- 20-24 Y ---- < 40 >45 ---- >24 Y ---- < 40 40-60 >60 Performed By: #### 2 4331-1 #### CHARLES COYNE ([id number]) [facility] ([facility]) [address] [place] [address] 78138 Cholesterol in LDL [Mass/Vol] 63 mg/dL Normal <=99 [facility] Comment on above: Result Comment: Near Borderline AGE Desirable Optimal High High Very High 0-19 Y 0 - 109 --- 110-129 >/= 130 ---- 20-24 Y 0 - 119 --- 120-159 >/= 160 ---- >24 Y 0 - 99 100-129 130-159 160-189 >/=190 Performed By: #### 2 4331-1 #### CHARLES COYNE ([id number]) [facility] ([facility]) [address] [place] [address] 87226 Cholesterol in VLDL [Mass/Vol] 27 mg/dL Normal 0-40 [facility] Comment on above: Performed By: #### 2 4331-1 #### CHARLES COYNE ([id number]) [facility] ([facility]) [address] [place] [address] 42916 CHOLESTEROL/HDL RATIO 2.7 Normal [facility] Comment on above: Result Comment: Ref Values Desirable < 3.4 High Risk > 5.0 Performed By: #### 2 4331-1 #### CHARLES COYNE ([id number]) [facility] ([facility]) [address] [place] [address] 15932 NON HDL CHOLESTEROL 90 mg/dL Normal 0-149 [facility] Comment on above: Result Comment: Age Desirable Borderline High High Very High 0-19 Y 0 - 119 120 - 144 >/= 145 >/= 160 20-24 Y 0 - 149 150 - 189 >/= 190 ---- >24 Y 30 mg/dL above LDL Cholesterol goal Performed By: #### 2 4331-1 #### CHARLES COYNE ([id number]) [facility] ([facility]) [address] [place] [address] 95081 Triglyceride [Mass/Vol] 136 mg/dL Normal 0-149 [facility] Comment on above: Result Comment: Age Desirable Borderline High High Very High 0 D-90 D 19 - 174 ---- ---- ---- 91 D- 9 Y 0 - 74 75 - 99 >/= 100 ---- 10-19 Y 0 - 89 90 - 129 >/= 130 ---- 20-24 Y 0 - 114 115 - 149 >/= 150 ---- >24 Y 0 - 149 150 - 199 200- 499 >/= 500 Venipuncture immediately after or during the administration of Metamizole may lead to falsely low results. Testing should be performed immediately prior to Metamizole dosing. Performed By: #### 2 4331-1 #### CHARLES COYNE ([id number]) [facility] ([facility]) [address] [place] [address] 85917 TSH WITH REFLEX TO FREE T4 I F ABNORMALon 11-04-2023 TSH Qn 1.83 m[IU]/L Normal 0.44-3.98 [facility] Comment on above: Order Comment: TSH t esting is performed using different testing methodology at [facility] than at [facility]. Direct result comparisons should only be made within the same method. Performed By: #### T HYDS #### CHARLES COYNE ([id number]) [facility] ([facility]) [address] [place] [address] CBC W Auto Differential pane l (Bld)on 09-05-2023 Basophils (Bld) [#/Vol] 0.04 x10*3/uL Normal 0.00-0.10 [facility] Comment on above: Performed By: #### 5 7021-8 #### CHARLES COYNE ([id number]) [facility] ([facility]) [address] [place] [address] 04901 Basophils/100 WBC (Bld) 0.7 % Normal 0.0-2.0 [facility] Comment on above: Performed By: #### 5 7021-8 #### CHARLES COYNE ([id number]) [facility] ([facility]) [address] [place] [address] 75604 Eosinophils (Bld) [#/Vol] 0.29 x10*3/uL Normal 0.00-0.40 [facility] Comment on above: Performed By: #### 5 7021-8 #### CHARLES COYNE ([id number]) [facility] ([facility]) [address] [place] [address] 44568 Eosinophils/100 WBC (Bld) 5.3 % Normal 0.0-6.0 [facility] Comment on above: Performed By: #### 5 7021-8 #### CHARLES COYNE ([id number]) [facility] ([facility]) [address] [place] [address] 83178 Erythrocyte distribution width (RBC) [Ratio] 15.9 % High 11.5-14.5 [facility] Comment on above: Performed By: #### 5 7021-8 #### CHARLES COYNE ([id number]) [facility] ([facility]) [address] [place] [address] 02731 Hematocrit (Bld) [Volume fraction] 35.3 % Low 36.0-46.0 [facility] Comment on above: Performed By: #### 5 7021-8 #### CHARLES COYNE ([id number]) [facility] ([facility]) [address] [place] [address] 74383 Hemoglobin (Bld) [Mass/Vol] 10.9 g/dL Low 12.0-16.0 [facility] Comment on above: Performed By: #### 5 7021-8 #### CHARLES COYNE ([id number]) [facility] ([facility]) [address] [place] [address] 40322 Immature granulocytes (Bld) [#/Vol] 0.02 x10*3/uL Normal 0.00-0.50 [facility] Comment on above: Performed By: #### 5 7021-8 #### CHARLES COYNE ([id number]) [facility] ([facility]) [address] [place] [address] 25626 Immature granulocytes/100 WBC (Bld) 0.4 % Normal 0.0-0.9 [facility] Comment on above: Result Comment: Karla ture Granulocyte Count (IG) includes promyelocytes, myelocytes and metamyelocytes but does not include bands. Percent differential counts (%) should be interpreted in the context of the absolute cell counts (cells/UL). Performed By: #### 5 7021-8 #### CHARLES COYNE ([id number]) [facility] ([facility]) [address] [place] [address] 48287 Lymphocytes (Bld) [#/Vol] 1.50 x10*3/uL Normal 0.80-3.00 [facility] Comment on above: Performed By: #### 5 7021-8 #### CHARLES COYNE (55443) [facility] ([facility]) [address] [place] [address] 53967 Lymphocytes/100 WBC (Bld) 27.3 % Normal 13.0-44.0 [facility] Comment on above: Performed By: #### 5 7021-8 #### CHARLES COYNE ([id number]) [facility] ([facility]) [address] [place] [address] 70003 MCH (RBC) [Entitic mass] 30.4 pg Normal 26.0-34.0 [facility] Comment on above: Performed By: #### 5 7021-8 #### CHARLES COYNE ([id number]) [facility] ([facility]) [address] [place] [address] 35609 MCHC (RBC) [Mass/Vol] 30.9 g/dL Low 32.0-36.0 [facility] Comment on above: Performed By: #### 5 7021-8 #### CHARLES COYNE ([id number]) [facility] ([facility]) [address] [place] [address] 70420 MCV (RBC) [Entitic vol] 99 fL Normal 80-100 [facility] Comment on above: Performed By: #### 5 7021-8 #### CHARLES COYNE ([id number]) [facility] ([facility]) [address] [place] [address] 54964 Monocytes (Bld) [#/Vol] 0.50 x10*3/uL Normal 0.05-0.80 [facility] Comment on above: Performed By: #### 5 7021-8 #### CHARLES COYNE ([id number]) [facility] ([facility]) [address] [place] [address] 29905 Monocytes/100 WBC (Bld) 9.1 % Normal 2.0-10.0 [facility] Comment on above: Performed By: #### 5 7021-8 #### CHARLES COYNE ([id number]) [facility] ([facility]) [address] [place] [address] 10950 Neutrophils (Bld) [#/Vol] 3.14 x10*3/uL Normal 1.60-5.50 [facility] Comment on above: Result Comment: Perc ent differential counts (%) should be interpreted in the context of the absolute cell counts (cells/uL). Performed By: #### 5 7021-8 #### CHARLES COYNE (36598) [facility] ([facility]) [address] [place] [address] 80216 Neutrophils/100 WBC (Bld) 57.2 % Normal 40.0-80.0 [facility] Comment on above: Performed By: #### 5 7021-8 #### CHARLES COYNE ([id number]) [facility] ([facility]) [address] [place] [address] 13114 Nucleated RBC/100 WBC (Bld) [Ratio] 0.0 /100 WBCs Normal 0.0-0.0 [facility] Comment on above: Performed By: #### 5 7021-8 #### CHARLES COYNE ([id number]) [facility] ([facility]) [address] [place] [address] 04778 Platelets (Bld) [#/Vol] 269 x10*3/uL Normal 150-450 [facility] Comment on above: Performed By: #### 5 7021-8 #### CHARLES COYNE ([id number]) [facility] ([facility]) [address] [place] [address] 61578 RBC (Bld) [#/Vol] 3.58 x10*6/uL Low 4.00-5.20 [facility] Comment on above: Performed By: #### 5 7021-8 #### CHARLES COYNE ([id number]) [facility] ([facility]) [address] [place] [address] WBC (Bld) [#/Vol] 5.5 x10*3/uL Normal 4.4-11.3 [facility] Comment on above: Performed By: #### 5 7021-8 #### CHARLES COYNE ([id number]) [facility] ([facility]) [address] [place] [address] Comprehensive metabolic 2000 panelon 09-05-2023 Albumin BCP dye [Mass/Vol] 3.9 g/dL Normal 3.4-5.0 [facility] Comment on above: Performed By: #### 2 4323-8 #### CHARLES COYNE ([id number]) [facility] ([facility]) [address] [place] [address] ALP [Catalytic activity/Vol] 57 U/L Normal 33-136 [facility] Comment on above: Performed By: #### 2 4323-8 #### CHARLES COYNE ([id number]) [facility] ([facility]) [address] [place] [address] ALT With P-5'-P [Catalytic activity/Vol] 19 U/L Normal 7-45 [facility] Comment on above: Result Comment: Lori ents treated with Sulfasalazine may generate falsely decreased results for ALT. Performed By: #### 2 4323-8 #### CHARLES COYNE ([id number]) [facility] ([facility]) [address] [place] [address] 95337 Anion gap [Moles/Vol] 10 mmol/L Normal 10-20 [facility] Comment on above: Performed By: #### 2 4323-8 #### CHARLES COYNE ([id number]) [facility] ([facility]) [address] [place] [address] 83219 AST With P-5'-P [Catalytic activity/Vol] 24 U/L Normal 9-39 [facility] Comment on above: Performed By: #### 2 4323-8 #### CHARLES COYNE ([id number]) [facility] ([facility]) [address] [place] [address] 96218 Bilirubin [Mass/Vol] 0.6 mg/dL Normal 0.0-1.2 [facility] Comment on above: Performed By: #### 2 4323-8 #### CHARLES COYNE ([id number]) [facility] ([facility]) [address] [place] [address] 28690 Calcium [Mass/Vol] 9.2 mg/dL Normal 8.6-10.3 [facility] Comment on above: Performed By: #### 2 4323-8 #### CHARLES COYNE ([id number]) [facility] ([facility]) [address] [place] [address] 19273 Chloride [Moles/Vol] 106 mmol/L Normal 98-107 [facility] Comment on above: Performed By: #### 2 4323-8 #### CHARLES COYNE ([id number]) [facility] ([facility]) [address] [place] [address] 50013 CO2 [Moles/Vol] 29 mmol/L Normal 21-32 [facility] Comment on above: Performed By: #### 2 4323-8 #### CHARLES COYNE ([id number]) [facility] ([facility]) [address] [place] [address] 03517 Creatinine [Mass/Vol] 0.88 mg/dL Normal 0.50-1.05 [facility] Comment on above: Performed By: #### 2 4323-8 #### CHARLES COYNE (06249) [facility] ([facility]) [address] [place] [address] 06587 Glomerular filtration rate/1.73 sq M.predicted 70 mL/min/1.73m*2 Normal >60 [facility] Comment on above: Result Comment: Calc ulations of estimated GFR are performed using the 2020 CKD-EPI Study Refit equation without the race variable for the IDMS-Traceable creatinine methods. https://jasn.asnjournals.org/content/early//ASN.669464694 8 Performed By: #### 2 4323-8 #### CHARLES COYNE ([id number]) [facility] ([facility]) [address] [place] [address] 92964 Glucose [Mass/Vol] 93 mg/dL Normal 74-99 [facility] Comment on above: Performed By: #### 2 4323-8 #### CHARLES COYNE ([id number]) [facility] ([facility]) [address] [place] [address] 62552 Potassium [Moles/Vol] 4.9 mmol/L Normal 3.5-5.3 [facility] Comment on above: Performed By: #### 2 4323-8 #### CHARLES COYNE ([id number]) [facility] ([facility]) [address] [place] [address] 80898 Protein [Mass/Vol] 5.4 g/dL Low 6.4-8.2 [facility] Comment on above: Performed By: #### 2 4323-8 #### CHARLES COYNE ([id number]) [facility] ([facility]) [address] [place] [address] 40561 Sodium [Moles/Vol] 140 mmol/L Normal 136-145 [facility] Comment on above: Performed By: #### 2 4323-8 #### CHARLES COYNE (07137) [facility] ([facility]) [address] [place] [address] 96438 Urea nitrogen [Mass/Vol] 29 mg/dL High 6-23 [facility] Comment on above: Performed By: #### 2 4323-8 #### CHARLES COYNE ([id number]) [facility] ([facility]) [address] [place] [address] 74037 XR tomography Unspecified dinh dy regionon 08-26-2023 These images are not reportable by radiology and will not be interpreted by Radiologists. IMAGING MR Lumbar spine WO contrasto n 07-27-2023 Status post laminect harshad and fusion of L4-5 and L5-S1. Multilevel degenerative changes most prominent at L2-3 where there is severe narrowing of the spinal canal and bilateral foramina, right greater than left with crowding of the cauda equina nerve roots. There is also moderate to severe bilateral foraminal stenosis at L3-4. Findings appear grossly unchanged compared to previous MRI 07/14/2018. Signed by: Damari Gibson 07/27/2023 10:41 AM Dictation workstation: [id number] [facility]ODAL Interpreted By: Damari England, STUDY: MR LUMBAR SPINE WO IV CONTRAST INDICATION: Signs/Symptoms:lower back and leg pain and legt fatigue. H/O fusion COMPARISON: Lumbar spine MRI 07/14/2018 ACCESSION NUMBER(S): [id number] ORDERING CLINICIAN: MAURICIO MANCILLA TECHNIQUE: Multiplanar multisequence MRI of the lumbar spine was performed without the administration of intravenous contrast, according to standard protocol. FINDINGS: ALIGNMENT: Stepwise retrolisthesis of T12 on L1 through L2 on L3. 4 mm grade 1 anterolisthesis of L5 on S1 . VERTEBRAE: Status post posterior decompression and fusion of L4-5 and L5-S1. DISCS: Multilevel disc desiccation. Moderate disc height loss from T12-L1 through L2-3. Mild disc height loss at L3-4. CONUS MEDULLARIS AND CAUDA EQUINA: The conus medullaris terminates at L1-2. Crowding of the cauda equina nerve roots at L2-3 secondary to degenerative change detailed further below. Remainder of the cauda equina nerve roots appear normal. PARAVERTEBRAL SOFT TISSUES AND VISUALIZED RETROPERITONEUM: The visualized paravertebral soft tissues appear within normal limits. EVALUATION OF INDIVIDUAL LEVELS: L1-2: Mild retrolisthesis with disc osteophyte complex asymmetric to the left and facet hypertrophy. Severe left foraminal stenosis and moderate right foraminal stenosis. There is mild narrowing of the spinal canal. L2-3: Retrolisthesis with disc osteophyte complex, facet hypertrophy, and infolding of ligamentum flavum. Severe narrowing of the spinal canal and bilateral foramina, oxjzy-joyneen-tuis-left. Crowding of the cauda equina nerve roots again noted. L3-4: Disc bulge with facet hypertrophy and infolding of ligamentum flavum resulting in moderate to severe bilateral foraminal stenosis and mild narrowing of the spinal canal. L4-5: Status post laminectomy. No canal or foraminal stenosis. L5-S1: Status post laminectomy and fusion. 4 mm grade 1 anterolisthesis uncovering of the posterior aspect of the disc and facet hypertrophy likely results in moderate bilateral foraminal stenosis though evaluation is limited given artifact from adjacent hardware. No canal stenosis. LIMITED EVALUATION OF UPPER SACRUM AND SACROILIAC JOINTS: Severe degenerative change of the left greater than right sacroiliac joints with fluid tracking within the left sacroiliac joint noted. Findings appear similar to previous MRI 07/14/2018. MMODAL Damari Gibson MD - 07/27/2023 Interpreted By: Damari Gibson STUDY: MR LUMBAR SPINE WO IV CONTRAST INDICATION: Signs/Symptoms:lower back and leg pain and legt fatigue. H/O fusion COMPARISON: Lumbar spine MRI 07/14/2018 ACCESSION NUMBER(S): [id number] ORDERING CLINICIAN: MAURICIO MANCILLA TECHNIQUE: Multiplanar multisequence MRI of the lumbar spine was performed without the administration of intravenous contrast, according to standard protocol. FINDINGS: ALIGNMENT: Stepwise retrolisthesis of T12 on L1 through L2 on L3. 4 mm grade 1 anterolisthesis of L5 on S1 . VERTEBRAE: Status post posterior decompression and fusion of L4-5 and L5-S1. DISCS: Multilevel disc desiccation. Moderate disc height loss from T12-L1 through L2-3. Mild disc height loss at L3-4. CONUS MEDULLARIS AND CAUDA EQUINA: The conus medullaris terminates at L1-2. Crowding of the cauda equina nerve roots at L2-3 secondary to degenerative change detailed further below. Remainder of the cauda equina nerve roots appear normal. PARAVERTEBRAL SOFT TISSUES AND VISUALIZED RETROPERITONEUM: The visualized paravertebral soft tissues appear within normal limits. EVALUATION OF INDIVIDUAL LEVELS: L1-2: Mild retrolisthesis with disc osteophyte complex asymmetric to the left and facet hypertrophy. Severe left foraminal stenosis and moderate right foraminal stenosis. There is mild narrowing of the spinal canal. L2-3: Retrolisthesis with disc osteophyte complex, facet hypertrophy, and infolding of ligamentum flavum. Severe narrowing of the spinal canal and bilateral foramina, hkgsw-udozlya-bght-left. Crowding of the cauda equina nerve roots again noted. L3-4: Disc bulge with facet hypertrophy and infolding of ligamentum flavum resulting in moderate to severe bilateral foraminal stenosis and mild narrowing of the spinal canal. L4-5: Status post laminectomy. No canal or foraminal stenosis. L5-S1: Status post laminectomy and fusion. 4 mm grade 1 anterolisthesis uncovering of the posterior aspect of the disc and facet hypertrophy likely results in moderate bilateral foraminal stenosis though evaluation is limited given artifact from adjacent hardware. No canal stenosis. LIMITED EVALUATION OF UPPER SACRUM AND SACROILIAC JOINTS: Severe degenerative change of the left greater than right sacroiliac joints with fluid tracking within the left sacroiliac joint noted. Findings appear similar to previous MRI 07/14/2018. IMPRESSION: Status post laminectomy and fusion of L4-5 and L5-S1. Multilevel degenerative changes most prominent at L2-3 where there is severe narrowing of the spinal canal and bilateral foramina, right greater than left with crowding of the cauda equina nerve roots. There is also moderate to severe bilateral foraminal stenosis at L3-4. Findings appear grossly unchanged compared to previous MRI 07/14/2018. Signed by: Damari Gibson 07/27/2023 10:41 AM Dictation workstation: [id number] [facility] Work Phone: Radiology Study observation (narrative) [facility] Work Phone: MR Lumbar spine WO contrastO rdered By: Damari Gibson on 07-27-2023 [facility] Work Phone: DBT Breast - bilateralon No mammographic evid ence of malignancy. BI-RADS CATEGORY: BI-RADS Category: 1 Negative. Recommendation: Routine Screening Mammogram in 1 Year. Recommended Date: 1 Year. Laterality: Bilateral. MACRO: None Signed by: Ezequiel Erickson 05/19/2023 10:19 AM Dictation workstation: [id number] Interpreted By: Ezequiel Felix, STUDY: BI MAMMO BILATERAL SCREENING TOMOSYNTHESIS; 05/19/2023 9:00 am ACCESSION NUMBER(S): [id number] ORDERING CLINICIAN: JASMINE MATHIAS INDICATION: Screening. COMPARISON: Digital mammogram dated 03/08/2022 FINDINGS: CC and MLO 2D digital mammograms and digital breast tomosynthesis images were obtained of the bilateral breasts. 3-D volume images were reconstructed in 4 views at an independent workstation as 1 mm slices through the breasts in both the CC and MLO projections. Density: The breast tissue is almost entirely fatty. No discrete mass or focal asymmetry is identified. No suspicious microcalcifications or foci of architectural distortion are seen. There has been no significant change. This study was interpreted with CAD. Ezequiel Munson MD - 05/19/2023 Interpreted By: Ezequiel Erickson, STUDY: BI MAMMO BILATERAL SCREENING TOMOSYNTHESIS; 05/19/2023 9:00 am ACCESSION NUMBER(S): [id number] ORDERING CLINICIAN: JASMINE MATHIAS INDICATION: Screening. COMPARISON: Digital mammogram dated 03/08/2022 FINDINGS: CC and MLO 2D digital mammograms and digital breast tomosynthesis images were obtained of the bilateral breasts. 3-D volume images were reconstructed in 4 views at an independent workstation as 1 mm slices through the breasts in both the CC and MLO projections. Density: The breast tissue is almost entirely fatty. No discrete mass or focal asymmetry is identified. No suspicious microcalcifications or foci of architectural distortion are seen. There has been no significant change. This study was interpreted with CAD. IMPRESSION: No mammographic evidence of malignancy. BI-RADS CATEGORY: BI-RADS Category: 1 Negative. Recommendation: Routine Screening Mammogram in 1 Year. Recommended Date: 1 Year. Laterality: Bilateral. MACRO: None Signed by: Ezequiel Erickson 05/19/2023 10:19 AM Dictation workstation: [id number] [facility] Work Phone: Radiology Study observation (narrative) [facility] Work Phone: DBT Breast - bilateralOrdere d By: Ezequiel Erickson on 05-19-2023 [facility] Work Phone: RFA Unspecified body region Limited Views for therapy or embolization or infusion W contrast via existing catheteron 03-04-2023 These images are not reportable by radiology and will not be interpreted by Radiologists. IMAGING XR Foot Left 3+ Views (Stand adriana)on 01-07-2023 Xray 3 views left - there is a 1st MPJ is fused with plate and screw fixation. There is 2nd toe arthrodesis with relocation of the toe with pin fixation GE RIS [facility] Radiology Study observation (narrative) [facility] CT FOOT LEFT WITHOUT CONTRAS Ton 12-31-2022 CT FOOT LEFT WITHOUT CONTRAST EXAMINATION: CT FOOT LEFT WITHOUT CONTRAST HISTORY: ORDERING SYSTEM PROVIDED HISTORY: dislocated 2nd hammer toe left, TECHNOLOGIST PROVIDED HISTORY: Injury/Trauma Reason for exam: dislocated 2nd hammer toe left, Dislocated toe, left, initial encounter Encounter Type: Initial Mechanism of injury: Tripped and landed wrong on foot last Tuesday. Had x-rays done at ORDERING SYSTEM PROVIDED DIAGNOSIS CODES: S93.105A Dislocated toe, left, initial encounter M20.42 Hammer toe of second toe of left foot COMPARISON: None FINDINGS: Severe degenerative changes of the midfoot Hallux valgus and metatarsus adductus deformity with severe degenerative change of the 1st metatarsophalangeal joint. The 2nd toe shows dorsal dislocation of the proximal phalanx relative to the metatarsal head. No acute fracture. Hammertoe deformity of all the toes. Workstation ID: [id number] Dictated by: EMEKA GERARDO on TueDec 31, 2022 3:00:09 PM EDT Transcribed by: EMEKA GERARDO on TueDec 31, 2022 3:00:09 PM EDT Finalized by: EMEKA GERARDO on TueDec 31, 2022 3:00:09 PM EDT [facility] Comment on above: Order Comment: Injur y/Trauma or Illness?:Injury/Trauma How long have you had these symptoms (acute/chronic)?:Acute Reason for exam?:dislocated 2nd hammer toe left, Dislocated toe, left, initial encounter Type of Exam?:Initial Mechanism of injury?:Tripped and landed wrong on foot last Tuesday. Had x-rays done at [facility] Foot - left 3 Viewson 1. No acute fracture or malalignment. 2. Severe degenerative changes of the 2nd, 3rd, and 4th tarsometatarsal joints and of the 2nd and 3rd metatarsophalangeal joints. 3. Additional findings as above. Signed by: Yue Quintana 12/26/2022 5:48 PM Dictation workstation: [id number] [facility] Interpreted By: Yue Tomlinson, STUDY: Left foot, three views INDICATION: Signs/Symptoms:injury to left great toe and 2 and 3rd toe COMPARISON: Left foot radiographs dated 10/26/2020. ACCESSION NUMBER(S): [id number] ORDERING CLINICIAN: JASMINE MCCORMICK FINDINGS: No acute fracture or malalignment. Severe degenerative changes are noted of the 2nd, 3rd, and 4th tarsometatarsal joints with joint space loss and subchondral sclerosis. Severe degenerative changes are noted of the 2nd and 3rd metatarsophalangeal joints with joint space loss and osteophytes. Mild hallux valgus. Chondrocalcinosis of the 1st MTP joint. Mild reactive soft tissue swelling of the dorsal midfoot and of the 1st MTP joint. [facility] Yue Quintana MD - 12/26/2022 Interpreted By: Yue Quintana, STUDY: Left foot, three views INDICATION: Signs/Symptoms:injury to left great toe and 2 and 3rd toe COMPARISON: Left foot radiographs dated 10/26/2020. ACCESSION NUMBER(S): [id number] ORDERING CLINICIAN: JASMINE MCCORMICK FINDINGS: No acute fracture or malalignment. Severe degenerative changes are noted of the 2nd, 3rd, and 4th tarsometatarsal joints with joint space loss and subchondral sclerosis. Severe degenerative changes are noted of the 2nd and 3rd metatarsophalangeal joints with joint space loss and osteophytes. Mild hallux valgus. Chondrocalcinosis of the 1st MTP joint. Mild reactive soft tissue swelling of the dorsal midfoot and of the 1st MTP joint. IMPRESSION: 1. No acute fracture or malalignment. 2. Severe degenerative changes of the 2nd, 3rd, and 4th tarsometatarsal joints and of the 2nd and 3rd metatarsophalangeal joints. 3. Additional findings as above. Signed by: Yue Quintana 12/26/2022 5:48 PM Dictation workstation: [id number] [facility] Work Phone: Radiology Study observation (narrative) [facility] Work Phone: XR Foot - left 3 ViewsOrdere d By: Yue Quintana on 12-26-2022 [facility] Work Phone: NR MRI CERVICAL WOon 023 NR MRI CERVICAL WO Patient Name: NARENDRA ARGUELLES STUDY: MRI CERVICAL WO INDICATION: neck pain COMPARISON: Cervical spine radiograph 11/11/2022. ACCESSION NUMBER(S): [id number] ORDERING CLINICIAN: MAURICIO MANCILLA TECHNIQUE: Multiplanar multisequence MR imaging of the cervical spine was performed without the administration of intravenous contrast, according to standard protocol. FINDINGS: ALIGNMENT: Slight reversal of usual cervical lordosis centered at C4-5. anterolisthesis of C3 on C4 and retrolisthesis of C4 on C5. VERTEBRAE: Status post ACDF of C5-6. No acute fracture or aggressive osseous lesion. Partial fusion of the C5 and C6 vertebral bodies noted. DISCS: Moderate to severe disc height loss at C4-5 and C6-7. Remaining discs are maintained. CORD: Slight flattening of the ventral aspect of the cord at C4-5 and to a lesser extent at C6-7 without associated cord signal abnormality. Remainder of the visualized cord is unremarkable. PARAVERTEBRAL SOFT TISSUES: Right thyroid lobe is visualized; left thyroid lobe is not visualized. EVALUATION OF INDIVIDUAL LEVELS: C2-3: No disc herniation spinal canal or neuroforaminal stenosis. C3-4: Slight anterolisthesis with superimposed disc osteophyte complex asymmetric to the right and facet hypertrophy. There is moderate right and mild left foraminal stenosis. There is mild narrowing of the spinal canal. C4-5: Slight retrolisthesis with superimposed disc osteophyte complex asymmetric to the left and facet hypertrophy. There is moderate right and mild left foraminal stenosis. There is mild narrowing of the spinal canal. C5-6: Osseous ridging and facet hypertrophy mildly narrow bilateral foramina. Spinal canal remains patent. C6-7: Disc osteophyte complex asymmetric to the left with facet hypertrophy and infolding of ligamentum flavum. Moderate narrowing of the spinal canal as well as severe left and moderate right foraminal stenosis. C7-T1: No disc herniation spinal canal or neuroforaminal stenosis. IMPRESSION: Status post ACDF of C5-6. 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 This is more notable at C6-7 where there is moderate canal stenosis as well as severe left and moderate right foraminal stenosis. Slight flattening of the ventral aspect of the cord at C4-5 and C6-7 without associated cord signal abnormality. Electronically signed by: DAMARI GIBSON MD [facility] Established Visit (Pain Medi cine)on 12-16-2022 Established Visit (Pain Medicine) Diagnoses/Problems H/O arthrodesis (V45.4) (Z98.1) Cervical neuritis (723.4) (M54.12) Imbalance (781.2) (R26.89) Arm weakness (729.89) (R29.898) Orders Cervical neuritis, Imbalance MRI Cervical without Contrast; Status:Hold For - Scheduling; Requested for:16Dec2022; Radiologist to Determine Optimal Study : Y Does the patient have a Cochlear Implant, Pacemaker, Defibrilator, Pacing Wire, Brain Aneurysm Clip, Implanted Nerve or Bone Graft Simulator, Implanted Breast Tissue Leather Toggler, Glucose Monitor, or Neulasta Device? : No Is the patient or breast feeding? : No What are the patient's signs and symptoms? : neck and arm pain, balance issues, arm weakness Primary generalized (osteo)arthritis Renew: Gabapentin 300 MG Oral Capsule; TAKE 2 CAPSULE 3 times daily Provider Impressions Patient is a 72-year-old female with a past medical history significant for previous cervical fusion, cervical neuritis, balance issues and arm weakness. She has a history of previous cervical fusion. Patient has neck pain, arm pain, arm weakness, balance issues, and intermittent issues with fine motor skills. Based on the above-mentioned symptoms and his history of previous cervical fusion I would like to rule out any adjacent level stenosis. We did review her cervical x-ray. I recommended a cervical MRI scan for further evaluation of possible injection options versus surgical consultation depend on the results. Patient is agreeable. In the meantime, to try and get some pain relief we will increase the gabapentin to 6 oh milligrams 3 times a day. OARRS was reviewed. Potential side effects were discussed. She is going to follow-up after the MRI. Call the clinic sooner if needed. Chief Complaint Patient is here today for new pain in her neck. Patient complains of bilateral neck pain with pain radiating into her bilateral shoulders. Patient denied radiation down her arms. Patient states right shoulder pain is worse than the left. Patient rates her pain a 7/10 today. Patient states her neck creeks and cracks when she tries to turn her head. She also states her neck pain causes frequent headaches. Patient states this pain started 4 months ago. She denied injury prior to pain starting. Patient states she had a recent cervical XR. She states her PCP mentioned PT but she states she wanted to come here first. Patient able to sit as long as she would like to. Patient able to stand 30 minutes. Patient able to walk 1 mile. Patient denied smoking. Depression screen completed, negative. BMI NA due to patient age. ORT score 1. FABIANO score 36. Adult Risk Screening Living Will. Living Will: Living will on file. Healthcare POA: Health care proxy on file. Declaration of Mental Health Treatment: No mental health treatment on file. Domestic Violence Screen: Does not feel threatened or abused physically, emotionally or sexually. Do you feel UNSAFE? The patient feels safe in the home. Depression/Suicide Screening: During the past 2 weeks, the patient has not felt down, depressed or hopeless. During the past 2 weeks, the patient has not felt little interest or pleasure in doing things. She does not have a risk of suicide. She has not had thoughts of harming others. Reference Documentation See scanned note FABIANO, ORT, MMA. History of Present Illness On a scale of 0 to 10, the patient rates the pain at 7. Pain Location: Neck Pain. Pain Quality: Throbbing. Pain Radiation: Radiates into bilateral shoulders. Sensory/ Motor: None. Timing/Duration: Constant and > 12 weeks duration. Exacerbating Factors: Turning head. Alleviating Factors: None. 24 Hour Behavior: Symptoms are the same in the am. Symptoms are the same as the day progresses. Symptoms are the same in the pm. Symptoms are the same when lying down. Psychosocial Factors vs Last Visit: Physical Functioning: Worse. Family Relationships: Same. Social Relationships: Same. Mood: Same. Sleep Patterns: Worse. Overall Functioning: Worse. Patient is a 72-year-old female. She presents today after a few year hiatus. She is here today with different complaints though. She is having neck pain with bilateral arm pain, numbness, weakness, tingling, and balance issues. This all started 4 months ago without any incident or trauma. Patient has a history of cervical fusion back 20 years ago or so. She cannot exactly remember when. 4 months ago she began to notice an increase of the above-mentioned symptoms as well as headaches that she rates a 7/10. Patient states that in fact yesterday, she was going to do something and before she knew it she was on the ground. She had fallen down. She saw her PCP recently for the neck pain and had an x-ray. Since that appointment to now she has noticed the issues with fine motor skills, balance issues, and intermittent arm weakness. She is here today to discuss different options. Review of Systems 13 systems all normal except noted in HP. Active Prob (more content not included)... Normal [employer] CBC AND DIFFERENTIALon 12-03 % AUTOMATED IMMATURE GRAN 0.2 % Normal 0.0 - 0.9 [facility] Comment on above: Result Comment: Karla ture Granulocyte Count (IG) includes promyelocytes, myelocytes and metamyelocytes but does not include bands. Percent differential counts (%) should be interpreted in the context of the absolute cell counts (cells/L). Performed By: #### C BCDF #### [address] [address] Basophils (Bld) [#/Vol] 0.03 10*3/uL Normal 0.00 - 0.10 [facility] Comment on above: Performed By: #### C BCDF #### [address] [address] Basophils/100 WBC (Bld) 0.6 % Normal 0.0 - 2.0 [facility] Comment on above: Performed By: #### C BCDF #### [address] [address] Eosinophils (Bld) [#/Vol] 0.23 10*3/uL Normal 0.00 - 0.40 [facility] Comment on above: Performed By: #### C BCDF #### [address] [address] Eosinophils/100 WBC (Bld) 4.4 % Normal 0.0 - 6.0 [facility] Comment on above: Performed By: #### C BCDF #### [address] [address] Erythrocyte distribution width (RBC) [Ratio] 14.6 % High 11.5 - 14.5 [facility] Comment on above: Performed By: #### C BCDF #### [address] [address] Hematocrit (Bld) [Volume fraction] 37.2 % Normal 36.0 - 46.0 [facility] Comment on above: Performed By: #### C BCDF #### [address] [address] Hemoglobin (Bld) [Mass/Vol] 11.6 g/dL Low 12.0 - 16.0 [facility] Comment on above: Performed By: #### C BCDF #### [address] [address] Lymphocytes (Bld) [#/Vol] 1.29 10*3/uL Normal 0.80 - 3.00 [facility] Comment on above: Performed By: #### C BCDF #### [address] [address] Lymphocytes/100 WBC (Bld) 24.4 % Normal 13.0 - 44.0 [facility] Comment on above: Performed By: #### C BCDF #### [address] [address] MCHC (RBC) [Mass/Vol] 31.2 g/dL Low 32.0 - 36.0 [facility] Comment on above: Performed By: #### C BCDF #### [address] [address] MCV (RBC) [Entitic vol] 99 fL Normal 80 - 100 [facility] Comment on above: Performed By: #### C BCDF #### [address] [address] Monocytes (Bld) [#/Vol] 0.34 10*3/uL Normal 0.05 - 0.80 [facility] Comment on above: Performed By: #### C BCDF #### [address] [address] Monocytes/100 WBC (Bld) 6.4 % Normal 2.0 - 10.0 [facility] Comment on above: Performed By: #### C BCDF #### [address] [address] Neutrophils (Bld) [#/Vol] 3.38 10*3/uL Normal 1.60 - 5.50 [facility] Comment on above: Result Comment: Perc ent differential counts (%) should be interpreted in the context of the absolute cell counts (cells/L). Performed By: #### C BCDF #### [address] [address] Neutrophils/100 WBC (Bld) 64.0 % Normal 40.0 - 80.0 [facility] Comment on above: Performed By: #### C BCDF #### [address] [address] Platelets (Bld) [#/Vol] 259 10*3/uL Normal 150 - 450 [facility] Comment on above: Performed By: #### C BCDF #### [address] [address] RBC 3.77 x10E12/L Low 4.00 - 5.20 [facility] Comment on above: Performed By: #### C BCDF #### [address] [address] WBC (Bld) [#/Vol] 5.3 10*3/uL Normal 4.4 - 11.3 [facility] Comment on above: Performed By: #### C BCDF #### [address] [address] COMPREHENSIVE PANELon 2022 Albumin [Mass/Vol] 4.0 g/dL Normal 3.4 - 5.0 [facility] Comment on above: Performed By: #### T HYDS #### [address] [address] ALP [Catalytic activity/Vol] 70 U/L Normal 33 - 136 [facility] Comment on above: Performed By: #### T HYDS #### [address] [address] ALT [Catalytic activity/Vol] 22 U/L Normal 7 - 45 [facility] Comment on above: Result Comment: Lori ents treated with Sulfasalazine may generate falsely decreased results for ALT. Performed By: #### T HYDS #### [address] [address] Anion gap [Moles/Vol] 9 mmol/L Low 10 - 20 [facility] Comment on above: Performed By: #### T HYDS #### [address] [address] AST [Catalytic activity/Vol] 26 U/L Normal 9 - 39 [facility] Comment on above: Performed By: #### T HYDS #### [address] [address] Bilirubin [Mass/Vol] 0.5 mg/dL Normal 0.0 - 1.2 [facility] Comment on above: Performed By: #### T HYDS #### [address] [address] Calcium [Mass/Vol] 9.5 mg/dL Normal 8.6 - 10.3 [facility] Comment on above: Performed By: #### T HYDS #### [address] [address] Chloride [Moles/Vol] 105 mmol/L Normal 98 - 107 [facility] Comment on above: Performed By: #### T HYDS #### [address] [address] Creatinine [Mass/Vol] 0.85 mg/dL Normal 0.50 - 1.05 [facility] Comment on above: Performed By: #### T HYDS #### [address] [address] GFR/1.73 sq M.predicted among non-blacks MDRD (S/P/Bld) [Vol rate/Area] 73 mL/min/{1.73_m2} Normal >90 [facility] Comment on above: Result Comment: CALC ULATIONS OF ESTIMATED GFR ARE PERFORMED USING THE 2020 CKD-EPI STUDY REFIT EQUATION WITHOUT THE RACE VARIABLE FOR THE IDMS-TRACEABLE CREATININE METHODS. https://jasn.asnjournals.org/content/early//ASN.629850997 8 Performed By: #### T HYDS #### [address] [address] Glucose [Mass/Vol] 95 mg/dL Normal 74 - 99 [facility] Comment on above: Performed By: #### T HYDS #### [address] [address] HCO3 (Bld) [Moles/Vol] 30 mmol/L Normal 21 - 32 [facility] Comment on above: Performed By: #### T HYDS #### [address] [address] Potassium [Moles/Vol] 4.5 mmol/L Normal 3.5 - 5.3 [facility] Comment on above: Performed By: #### T HYDS #### [address] [address] Protein [Mass/Vol] 6.2 g/dL Low 6.4 - 8.2 [facility] Comment on above: Performed By: #### T HYDS #### [address] [address] Sodium [Moles/Vol] 139 mmol/L Normal 136 - 145 [facility] Comment on above: Performed By: #### T HYDS #### [address] [address] Urea nitrogen [Mass/Vol] 22 mg/dL Normal 6 - 23 [facility] Comment on above: Performed By: #### T HYDS #### [address] [address] Complete Blood Count + Diffe rentialon 12-03-2022 Basophils/100 WBC (Bld) 0.6 % 0.0 - 2.0 [facility] Work Phone: [phone] Erythrocyte distribution width (RBC) [Ratio] 14.6 % above high threshold See Below [facility] Work Phone: [phone] Comment on above: Reference Range: 11. 5 - 14.5 Hematocrit (Bld) [Volume fraction] 37.2 % See Below [facility] Work Phone: [phone] Comment on above: Reference Range: 36. 0 - 46.0 Hemoglobin (Bld) [Mass/Vol] 11.6 g/dL below low threshold See Below [facility] Work Phone: [phone] Comment on above: Reference Range: 12. 0 - 16.0 Lymphocytes/100 WBC (Bld) 24.4 % See Below [facility] Work Phone: [phone] Comment on above: Reference Range: 13. 0 - 44.0 MCHC (RBC) [Mass/Vol] 31.2 g/dL below low threshold See Below [facility] Work Phone: [phone] Comment on above: Reference Range: 32. 0 - 36.0 MCV (RBC) [Entitic vol] 99 fL 80 - 100 [facility] Work Phone: [phone] Monocytes/100 WBC (Bld) 6.4 % 2.0 - 10.0 [facility] Work Phone: [phone] Neutrophils/100 WBC (Bld) 64.0 % See Below [facility] Work Phone: [phone] Comment on above: Reference Range: 40. 0 - 80.0 Platelets (Bld) [#/Vol] 259 10*3/uL 150 - 450 [facility] Work Phone: [phone] RBC (Bld) [#/Vol] 3.77 {x10E12/L} below low threshold See Below [facility] Work Phone: [phone] Comment on above: Reference Range: 4.0 0 - 5.20 WBC (Bld) [#/Vol] 5.3 10*3/uL 4.4 - 11.3 [facility] Work Phone: [phone] Complete Blood Count + Differential 0.03 {x10E9/L} See Below [facility] Work Phone: [phone] Comment on above: Reference Range: 0.0 0 - 0.10 Complete Blood Count + Differential 0.23 {x10E9/L} See Below [facility] Work Phone: [phone] Comment on above: Reference Range: 0.0 0 - 0.40 Complete Blood Count + Differential 0.34 {x10E9/L} See Below [facility] [facility] Work Phone: [phone] Comment on above: Reference Range: 0.0 5 - 0.80 Complete Blood Count + Differential 1.29 {x10E9/L} See Below [facility] Work Phone: [phone] Comment on above: Reference Range: 0.8 0 - 3.00 Complete Blood Count + Differential 3.38 {x10E9/L} See Below [facility] Work Phone: [phone] Comment on above: Reference Range: 1.6 0 - 5.50 Percent differential counts (%) should be interpreted in the context of the absolute cell counts (cells/L). Complete Blood Count + Differential 4.4 % 0.0 - 6.0 [facility] Work Phone: [phone] Complete Blood Count + Differential 0.2 % 0.0 - 0.9 [facility] Work Phone: [phone] Comment on above: Immature Granulocyte Count (IG) includes promyelocytes, myelocytes and metamyelocytes but does not include bands. Percent differential counts (%) should be interpreted in the context of the absolute cell counts (cells/L). Laboratory - Chemistry and C hemistry - challengeon 12-03-2022 Albumin BCP dye [Mass/Vol] 4.0 g/dL 3.4 - 5.0 [facility] Work Phone: [phone] ALP [Catalytic activity/Vol] 70 U/L 33 - 136 [facility] Work Phone: [phone] ALT With P-5'-P [Catalytic activity/Vol] 22 U/L 7 - 45 [facility] Work Phone: [phone] Comment on above: Patients treated wit h Sulfasalazine may generate falsely decreased results for ALT. Anion gap [Moles/Vol] 9 mmol/L below low threshold 10 - 20 [facility] Work Phone: [phone] AST With P-5'-P [Catalytic activity/Vol] 26 U/L 9 - 39 [facility] Work Phone: [phone] Bilirubin [Mass/Vol] 0.5 mg/dL 0.0 - 1.2 [facility] Work Phone: [phone] Calcium [Mass/Vol] 9.5 mg/dL 8.6 - 10.3 [facility] Work Phone: [phone] Chloride [Moles/Vol] 105 mmol/L 98 - 107 [facility] Work Phone: [phone] CO2 [Moles/Vol] 30 mmol/L 21 - 32 [facility] Work Phone: [phone] Creatinine [Mass/Vol] 0.85 mg/dL See Below [facility] Work Phone: [phone] Comment on above: Reference Range: 0.5 0 - 1.05 Glucose [Mass/Vol] 95 mg/dL 74 - 99 [facility] Work Phone: [phone] Potassium [Moles/Vol] 4.5 mmol/L 3.5 - 5.3 [facility] Work Phone: [phone] Protein [Mass/Vol] 6.2 g/dL below low threshold 6.4 - 8.2 [facility] Work Phone: [phone] Sodium [Moles/Vol] 139 mmol/L 136 - 145 [facility] Work Phone: [phone] Urea nitrogen [Mass/Vol] 22 mg/dL 6 - 23 [facility] Work Phone: No Panel Informationon 12-03 73 {mL/min/1.73m2} >90 -[facility] Work Phone: [phone] Comment on above: CALCULATIONS OF TAYE MATED GFR ARE PERFORMED USING THE 2020 CKD-EPI STUDY REFIT EQUATION WITHOUT THE RACE VARIABLE FOR THE IDMS-TRACEABLE CREATININE METHODS.https://jasn.asnjournals.org/content//ASN.2 100811125 SPINE, CERVICAL MIN 4 VIEWSo n 11-11-2022 SPINE, CERVICAL MIN 4 VIEWS Patient Name: NARENDRA ARGUELLES STUDY: SPINE, CERVICAL MIN 4 VIEWS; ; 11/11/2022 8:45 am INDICATION: neck pain. COMPARISON: None. ACCESSION NUMBER(S): [id number] ORDERING CLINICIAN: JASMINE MATHIAS FINDINGS: Anterior fusion of C5-C6. No acute hardware complication is seen. Multilevel spondylosis, most significant at C4-C5 and C6-C7. Multilevel disc space narrowing. Multilevel facet arthropathy Multilevel uncovertebral hypertrophy.Multilevel osteophyte formation. IMPRESSION: C5-C6 anterior fusion without acute hardware complication or acute osseous abnormality of the cervical spine. Multilevel spondylosis, most significant at C4-C5 and C6-C7. MACRO: None Electronically signed by: MILE AMBROSE MD Normal [facility] CBC AND DIFFERENTIALon 11-02 % AUTOMATED IMMATURE GRAN 0.4 % Normal 0.0 - 0.9 [facility] Comment on above: Result Comment: Karla ture Granulocyte Count (IG) includes promyelocytes, myelocytes and metamyelocytes but does not include bands. Percent differential counts (%) should be interpreted in the context of the absolute cell counts (cells/L). Performed By: #### C BCDF #### [address] [address] Basophils (Bld) [#/Vol] 0.02 10*3/uL Normal 0.00 - 0.10 [facility] Comment on above: Performed By: #### C BCDF #### [address] [address] Basophils/100 WBC (Bld) 0.4 % Normal 0.0 - 2.0 [facility] Comment on above: Performed By: #### C BCDF #### [address] [address] Eosinophils (Bld) [#/Vol] 0.26 10*3/uL Normal 0.00 - 0.40 [facility] Comment on above: Performed By: #### C BCDF #### [address] [address] Eosinophils/100 WBC (Bld) 5.2 % Normal 0.0 - 6.0 [facility] Comment on above: Performed By: #### C BCDF #### [address] [address] Erythrocyte distribution width (RBC) [Ratio] 14.5 % Normal 11.5 - 14.5 [facility] Comment on above: Performed By: #### C BCDF #### [address] [address] Hematocrit (Bld) [Volume fraction] 37.5 % Normal 36.0 - 46.0 [facility] Comment on above: Performed By: #### C BCDF #### [address] [address] Hemoglobin (Bld) [Mass/Vol] 11.5 g/dL Low 12.0 - 16.0 [facility] Comment on above: Performed By: #### C BCDF #### [address] [address] Lymphocytes (Bld) [#/Vol] 1.00 10*3/uL Normal 0.80 - 3.00 [facility] Comment on above: Performed By: #### C BCDF #### [address] [address] Lymphocytes/100 WBC (Bld) 20.1 % Normal 13.0 - 44.0 [facility] Comment on above: Performed By: #### C BCDF #### [address] [address] MCHC (RBC) [Mass/Vol] 30.7 g/dL Low 32.0 - 36.0 [facility] Comment on above: Performed By: #### C BCDF #### [address] [address] MCV (RBC) [Entitic vol] 100 fL Normal 80 - 100 [facility] Comment on above: Performed By: #### C BCDF #### [address] [address] Monocytes (Bld) [#/Vol] 0.44 10*3/uL Normal 0.05 - 0.80 [facility] Comment on above: Performed By: #### C BCDF #### [address] [address] Monocytes/100 WBC (Bld) 8.8 % Normal 2.0 - 10.0 [facility] Comment on above: Performed By: #### C BCDF #### [address] [address] Neutrophils (Bld) [#/Vol] 3.24 10*3/uL Normal 1.60 - 5.50 [facility] Comment on above: Result Comment: Perc ent differential counts (%) should be interpreted in the context of the absolute cell counts (cells/L). Performed By: #### C BCDF #### [address] [address] Neutrophils/100 WBC (Bld) 65.1 % Normal 40.0 - 80.0 [facility] Comment on above: Performed By: #### C BCDF #### [address] [address] Platelets (Bld) [#/Vol] 252 10*3/uL Normal 150 - 450 [facility] Comment on above: Performed By: #### C BCDF #### [address] [address] RBC 3.76 x10E12/L Low 4.00 - 5.20 [facility] Comment on above: Performed By: #### C BCDF #### [address] [address] WBC (Bld) [#/Vol] 5.0 10*3/uL Normal 4.4 - 11.3 [facility] Comment on above: Performed By: #### C BCDF #### [address] [address] COMPREHENSIVE PANELon 2022 Albumin [Mass/Vol] 3.9 g/dL Normal 3.4 - 5.0 [facility] Comment on above: Performed By: #### C BCDF #### [address] [address] ALP [Catalytic activity/Vol] 66 U/L Normal 33 - 136 [facility] Comment on above: Performed By: #### C BCDF #### [address] [address] ALT [Catalytic activity/Vol] 21 U/L Normal 7 - 45 [facility] Comment on above: Result Comment: Lori ents treated with Sulfasalazine may generate falsely decreased results for ALT. Performed By: #### C BCDF #### [address] [address] Anion gap [Moles/Vol] 7 mmol/L Low 10 - 20 [facility] Comment on above: Performed By: #### C BCDF #### [address] [address] AST [Catalytic activity/Vol] 29 U/L Normal 9 - 39 [facility] Comment on above: Performed By: #### C BCDF #### [address] [address] Bilirubin [Mass/Vol] 0.6 mg/dL Normal 0.0 - 1.2 [facility] Comment on above: Performed By: #### C BCDF #### [address] [address] Calcium [Mass/Vol] 9.5 mg/dL Normal 8.6 - 10.3 [facility] Comment on above: Performed By: #### C BCDF #### [address] [address] Chloride [Moles/Vol] 106 mmol/L Normal 98 - 107 [facility] Comment on above: Performed By: #### C BCDF #### [address] [address] Creatinine [Mass/Vol] 0.79 mg/dL Normal 0.50 - 1.05 [facility] Comment on above: Performed By: #### C BCDF #### [address] [address] GFR/1.73 sq M.predicted among non-blacks MDRD (S/P/Bld) [Vol rate/Area] 80 mL/min/{1.73_m2} Normal >90 [facility] Comment on above: Result Comment: CALC ULATIONS OF ESTIMATED GFR ARE PERFORMED USING THE 2020 CKD-EPI STUDY REFIT EQUATION WITHOUT THE RACE VARIABLE FOR THE IDMS-TRACEABLE CREATININE METHODS. https://jasn.asnjournals.org/content/early//ASN.870499400 8 Performed By: #### C BCDF #### [address] [address] Glucose [Mass/Vol] 92 mg/dL Normal 74 - 99 [facility] Comment on above: Performed By: #### C BCDF #### [address] [address] HCO3 (Bld) [Moles/Vol] 31 mmol/L Normal 21 - 32 [facility] Comment on above: Performed By: #### C BCDF #### [address] [address] Potassium [Moles/Vol] 4.3 mmol/L Normal 3.5 - 5.3 [facility] Comment on above: Performed By: #### C BCDF #### [address] [address] Protein [Mass/Vol] 6.4 g/dL Normal 6.4 - 8.2 [facility] Comment on above: Performed By: #### C BCDF #### [address] [address] Sodium [Moles/Vol] 140 mmol/L Normal 136 - 145 [facility] Comment on above: Performed By: #### C BCDF #### [address] [address] Urea nitrogen [Mass/Vol] 21 mg/dL Normal 6 - 23 [facility] Comment on above: Performed By: #### C BCDF #### [address] [address] LIPID PANEL (CORONARY RISK 2 )on 11-02-2022 Cholesterol [Mass/Vol] 134 mg/dL Normal 0 - 199 [facility] Comment on above: Result Comment: . AGE DESIRABLE BORDERLINE HIGH HIGH 0-19 Y 0 - 169 170 - 199 >/= 200 20-24 Y 0 - 189 190 - 224 >/= 225 >24 Y 0 - 199 200 - 239 >/= 240 All ranges are based on fasting samples. Specific therapeutic targets will vary based on patient-specific cardiac risk. . Pediatric guidelines reference:Pediatrics 2011, 128(S5). Adult guidelines reference: NCEP ATPIII Guidelines, ALFIE 2001, 258:2486-97 . Venipuncture immediately after or during the administration of Metamizole may lead to falsely low results. Testing should be performed immediately prior to Metamizole dosing. Performed By: #### C BCDF #### [address] [address] Cholesterol in HDL [Mass/Vol] 64.0 mg/dL Normal [facility] Comment on above: Result Comment: . AGE VERY LOW LOW NORMAL HIGH 0-19 Y < 35 < 40 40-45 ---- 20-24 Y ---- < 40 >45 ---- >24 Y ---- < 40 40-60 >60 . Performed By: #### C BCDF #### [address] [address] Cholesterol in LDL [Mass/Vol] 52 mg/dL Normal 0 - 99 [facility] Comment on above: Result Comment: . NEAR BORD AGE DESIRABLE OPTIMAL HIGH HIGH VERY HIGH 0-19 Y 0 - 109 --- 110-129 >/= 130 ---- 20-24 Y 0 - 119 --- 120-159 >/= 160 ---- >24 Y 0 - 99 100-129 130-159 160-189 >/=190 . Performed By: #### C BCDF #### [address] [address] Cholesterol in VLDL [Mass/Vol] 18 mg/dL Normal 0 - 40 [facility] Comment on above: Performed By: #### C BCDF #### [address] [address] Cholesterol.total/ Cholesterol in HDL [Mass ratio] 2.1 {ratio} Normal [facility] Comment on above: Result Comment: REF VALUES DESIRABLE < 3.4 HIGH RISK > 5.0 Performed By: #### C BCDF #### [address] [address] Triglyceride [Mass/Vol] 90 mg/dL Normal 0 - 149 [facility] Comment on above: Result Comment: . AGE DESIRABLE BORDERLINE HIGH HIGH VERY HIGH 0 D-90 D 19 - 174 ---- ---- ---- 91 D- 9 Y 0 - 74 75 - 99 >/= 100 ---- 10-19 Y 0 - 89 90 - 129 >/= 130 ---- 20-24 Y 0 - 114 115 - 149 >/= 150 ---- >24 Y 0 - 149 150 - 199 200- 499 >/= 500 . Venipuncture immediately after or during the administration of Metamizole may lead to falsely low results. Testing should be performed immediately prior to Metamizole dosing. Performed By: #### C BCDF #### [address] [address] TSH WITH REFLEX TO FREE T4 I F ABNORMALon 11-02-2022 TSH Qn 2.38 m[IU]/L Normal 0.44 - 3.98 [facility] Comment on above: Result Comment: TSH testing is performed using different testing methodology at [facility] than at other [facility]. Direct result comparisons should only be made within the same method. Performed By: #### T HYDS #### [address] [address] VITAMIN B12on 11-02-2022 Cobalamin (Vitamin B12) [Mass/Vol] 612 pg/mL Normal 211 - 911 [facility] Comment on above: Performed By: #### V TB12 #### [facility] [address] [place] [address] Provider Note - ED v3on 07-0 Provider Note - ED v3 Provider Note: Results/Vital Signs: Pediatric Clinical Scoring (ESTEFANY) is no recent ESTEFANY charted on this account Chart Review: ED NOTES ED NOTES: Patient presents for evaluation of right-sided rib pain after bending over and feeling a crunch when she was pulling weeds from a chair. Patient is a history of osteoporosis. States pain is worse with coughing and breathing. Has taken OTC analgesics without improvement in symptoms. No chest pain or shortness of breath. HISTORY OF PRESENTING ILLNESS NARENDRA is a 71 year old Female and was seen by me at 27-Sep-2022 13:29. Triage Information: Most recent Vital Sign Value Date PAST MEDICAL HISTORY ALLERGIES/INTOLERANCES: Allergy Allergen: codeine Type: Drug Reaction: Other Allergen: Augmentin Type: Drug Reaction: Unknown Allergen: morphine Type: Drug Reaction: Unknown HEALTH HISTORY: Medical History Name:Osteoporosis Code:M81.0 OUTPATIENT MEDICATIONS: Home Medications Review Status for Reconciliation: Complete Med Status: Patient Currently Takes Medications Drug Name: lisinopril 5 mg oral tablet Instructions: 1 tab(s) orally once a day Drug Name: meloxicam 15 mg oral tablet Instructions: 1 tab(s) orally once a day Drug Name: atorvastatin 20 mg oral tablet Instructions: 1 tab(s) orally once a day Drug Name: gabapentin 300 mg oral capsule Instructions: orally 4 times a day Drug Name: traMADol 50 mg oral tablet Instructions: 1 tab(s) orally every 4 hours Drug Name: ALPRAZolam 0.25 mg oral tablet Instructions: 1 tab(s) orally 3 times a day Drug Name: methotrexate 2.5 mg oral tablet Instructions: null Drug Name: furosemide 20 mg oral tablet Instructions: 1 tab(s) orally Drug Name: nortriptyline Instructions: null SIGNIFICANT EVENTS: Clinical Events Description:Surgical Procedure Additional Notes:1. L L5 + S1 TFESI; Description:Surgical Procedure Additional Notes:1. CAUDAL HERMELINDA; Immunizations Description:Tdap Past Medical History Description:Hypertension (HTN) REVIEW OF SYSTEMS All other systems reviewed and are negative REVIEW OF SYSTEMS: Comments See HPI PHYSICAL EXAM CONSTITUTIONAL: Well appearing, well nourished, awake, alert, oriented to person, place, time/situation and in no apparent distress. CARDIOVASCULAR: Normal rate, regular rhythm. Heart sounds S1, S2. No murmurs, rubs or gallops. PMI non-displaced. RESPIRATORY: Breath sounds clear and equal bilaterally. MUSCULOSKELETAL: Tenderness to right side ribs near 5-8 ribs without ecchymosis, erythema or edema. NEUROLOGICAL: Alert and oriented, no focal deficits, no motor or sensory deficits. SKIN: Skin normal color for race, warm, dry and intact. No evidence of trauma. PSYCHIATRIC: Alert and oriented to person, place, time/situation. normal mood and affect. No apparent risk to self or others. CRITICAL CARE RESULTS: Radiology Results: Xray Ribs Unilateral with PA Cxr 3 View [Sep 27 2022 3:18PM] FINAL REPORT - Right Interpreted by: CARIDAD FUNES ALLEN, MD 09/27/22 15:17 Facility: [facility] INDICATION: Rib pain, post bending over, and feeling a crunch. History of osteoporosis. TECHNIQUE: Frontal chest and twoviews four images of the right ribs. COMPARISON: None Available. FINDINGS: Chest: The cardiomediastinal silhouette is normal in size. There is no consolidation or atelectasis in either lung. There are no pleural effusions. There is no pneumothorax. Degenerative changes right AC joint Right ribs: Nondisplaced fracture anterior margin right fifth rib IMPRESSION: Nondisplaced fracture anterior margin right fifth rib. Signed by Caridad Funes MD Transcribed By: Interface, Electronically Signed By: CARIDAD FUNES ALLEN 09/27/22 15:17 VITAL SIGNS: Initial Vital Signs: Temperature C: 36.5 degrees C. Temperature F: 97.8 degrees F. Temperature site: temporal. Blood Pressure: 159 mm/Hg / 84 mm/Hg Blood Pressure Position: sitting. Heart Rate: 88 beats per minute Respiratory Rate: 16 breath per minute Pulse Oximetry: 96 %. Patient on: room air. MDM MDM/ED COURSE: Discussed Findings with: patient Data Reviewed: vital signs Treatment Plan: IS every 2 hrs ordered and pt to go to [facility] for instruction on use. Pt has rx of Tramadol from PCP and states she has enough to last her until next PCP appt in a few days. She will notify office if she needs another rx in the meantime. Patient's clinical presentation is otherwise unremarkable at this time. Patient is discharged with instructions to follow-up with primary care or seek emergency medical attention for worsening symptoms or any new concerns. DISPOSITION Diagnosis/Annotation: ED Dx Name:Closed fracture of one rib of right side, initial encounter Code:S22.31XA Disposition: discharged CONSULT CRITICAL CARE TIME Is t (more content not included)... Normal [facility] RIBS, UNILATERAL, W PA CXR 3 VIEWSon 09-27-2022 RIBS, UNILATERAL, W PA CXR 3 VIEWS INDICATION: Rib pain, post bending over, and feeling a crunch. History of osteoporosis. TECHNIQUE: Frontal chest and two views four images of the right ribs. COMPARISON: None Available. FINDINGS: Chest: The cardiomediastinal silhouette is normal in size. There is no consolidation or atelectasis in either lung. There are no pleural effusions. There is no pneumothorax. Degenerative changes right AC joint Right ribs: Nondisplaced fracture anterior margin right fifth rib IMPRESSION: Nondisplaced fracture anterior margin right fifth rib. Signed by Caridad Funes MD Electronically signed by: CARIDAD FUNES MD Normal [facility] CBC AND DIFFERENTIALon 09-07 % AUTOMATED IMMATURE GRAN 0.3 % Normal 0.0 - 0.9 [facility] Comment on above: Result Comment: Karla ture Granulocyte Count (IG) includes promyelocytes, myelocytes and metamyelocytes but does not include bands. Percent differential counts (%) should be interpreted in the context of the absolute cell counts (cells/L). Performed By: #### C BCDF #### [address] [address] Basophils (Bld) [#/Vol] 0.02 10*3/uL Normal 0.00 - 0.10 [facility] Comment on above: Performed By: #### C BCDF #### [address] [address] Basophils/100 WBC (Bld) 0.3 % Normal 0.0 - 2.0 [facility] Comment on above: Performed By: #### C BCDF #### [address] [address] Eosinophils (Bld) [#/Vol] 0.26 10*3/uL Normal 0.00 - 0.70 [facility] Comment on above: Performed By: #### C BCDF #### [address] [address] Eosinophils/100 WBC (Bld) 4.4 % Normal 0.0 - 6.0 [facility] Comment on above: Performed By: #### C BCDF #### [address] [address] Erythrocyte distribution width (RBC) [Ratio] 15.5 % High 11.5 - 14.5 [facility] Comment on above: Performed By: #### C BCDF #### [address] [address] Hematocrit (Bld) [Volume fraction] 38.9 % Normal 36.0 - 46.0 [facility] Comment on above: Performed By: #### C BCDF #### [address] [address] Hemoglobin (Bld) [Mass/Vol] 11.8 g/dL Low 12.0 - 16.0 [facility] Comment on above: Performed By: #### C BCDF #### [address] [address] Lymphocytes (Bld) [#/Vol] 1.52 10*3/uL Normal 1.20 - 4.80 [facility] Comment on above: Performed By: #### C BCDF #### [address] [address] Lymphocytes/100 WBC (Bld) 25.9 % Normal 13.0 - 44.0 [facility] Comment on above: Performed By: #### C BCDF #### [address] [address] MCHC (RBC) [Mass/Vol] 30.3 g/dL Low 32.0 - 36.0 [facility] Comment on above: Performed By: #### C BCDF #### [address] [address] MCV (RBC) [Entitic vol] 100 fL Normal 80 - 100 [facility] Comment on above: Performed By: #### C BCDF #### [address] [address] Monocytes (Bld) [#/Vol] 0.49 10*3/uL Normal 0.10 - 1.00 [facility] Comment on above: Performed By: #### C BCDF #### [address] [address] Monocytes/100 WBC (Bld) 8.4 % Normal 2.0 - 10.0 [facility] Comment on above: Performed By: #### C BCDF #### [address] [address] Neutrophils (Bld) [#/Vol] 3.55 10*3/uL Normal 1.20 - 7.70 [facility] Comment on above: Result Comment: Perc ent differential counts (%) should be interpreted in the context of the absolute cell counts (cells/L). Performed By: #### C BCDF #### [address] [address] Neutrophils/100 WBC (Bld) 60.7 % Normal 40.0 - 80.0 [facility] Comment on above: Performed By: #### C BCDF #### [address] [address] Platelets (Bld) [#/Vol] 255 10*3/uL Normal 150 - 450 [facility] Comment on above: Performed By: #### C BCDF #### [address] [address] RBC 3.91 x10E12/L Low 4.00 - 5.20 [facility] Comment on above: Performed By: #### C BCDF #### [address] [address] WBC (Bld) [#/Vol] 5.9 10*3/uL Normal 4.4 - 11.3 [facility] Comment on above: Performed By: #### C BCDF #### [address] [address] COMPREHENSIVE PANELon 2022 Anion gap [Moles/Vol] 9 mmol/L Low 10 - 20 [facility] Comment on above: Performed By: #### C MP #### [address] [address] Chloride [Moles/Vol] 104 mmol/L Normal 98 - 107 [facility] Comment on above: Result Comment: Conf irmed by repeat analysis Performed By: #### C MP #### [place] [id number] HCO3 (Bld) [Moles/Vol] 32 mmol/L Normal 21 - 32 [facility] Comment on above: Result Comment: Conf irmed by repeat analysis Performed By: #### C MP #### [place] [id number] Potassium [Moles/Vol] 4.6 mmol/L Normal 3.5 - 5.3 [facility] Comment on above: Result Comment: Conf irmed by repeat analysis Performed By: #### C MP #### [place] [id number] Sodium [Moles/Vol] 140 mmol/L Normal 136 - 145 [facility] Comment on above: Result Comment: Conf irmed by repeat analysis Performed By: #### C MP #### [place] [id number] Albumin [Mass/Vol] 4.1 g/dL Normal 3.4 - 5.0 [facility] Comment on above: Performed By: #### C MP #### [address] [address] ALP [Catalytic activity/Vol] 73 U/L Normal 33 - 136 [facility] Comment on above: Performed By: #### C MP #### [address] [address] ALT [Catalytic activity/Vol] 19 U/L Normal 7 - 45 [facility] Comment on above: Result Comment: Lori ents treated with Sulfasalazine may generate falsely decreased results for ALT. Performed By: #### C MP #### [address] [address] AST [Catalytic activity/Vol] 25 U/L Normal 9 - 39 [facility] Comment on above: Performed By: #### C MP #### [address] [address] Bilirubin [Mass/Vol] 0.5 mg/dL Normal 0.0 - 1.2 [facility] Comment on above: Performed By: #### C MP #### [address] [address] Calcium [Mass/Vol] 9.4 mg/dL Normal 8.6 - 10.3 [facility] Comment on above: Performed By: #### C MP #### [address] [address] Creatinine [Mass/Vol] 0.74 mg/dL Normal 0.50 - 1.05 [facility] Comment on above: Performed By: #### C MP #### [address] [address] GFR/1.73 sq M.predicted among non-blacks MDRD (S/P/Bld) [Vol rate/Area] 87 mL/min/{1.73_m2} Normal >90 [facility] Comment on above: Result Comment: CALC ULATIONS OF ESTIMATED GFR ARE PERFORMED USING THE 2020 CKD-EPI STUDY REFIT EQUATION WITHOUT THE RACE VARIABLE FOR THE IDMS-TRACEABLE CREATININE METHODS. https://jasn.asnjournals.org/content//ASN.188405904 8 Performed By: #### C MP #### [address] [address] [address] Glucose [Mass/Vol] 101 mg/dL High 74 - 99 [facility] Comment on above: Performed By: #### C MP #### [address] [address] Protein [Mass/Vol] 6.4 g/dL Normal 6.4 - 8.2 [facility] Comment on above: Performed By: #### C MP #### [address] [address] Urea nitrogen [Mass/Vol] 28 mg/dL High 6 - 23 [facility] Comment on above: Performed By: #### C MP #### [address] [address] CBC AND DIFFERENTIALon 07-07 % AUTOMATED IMMATURE GRAN 0.2 % Normal 0.0 - 0.9 [facility] Comment on above: Result Comment: Karla ture Granulocyte Count (IG) includes promyelocytes, myelocytes and metamyelocytes but does not include bands. Percent differential counts (%) should be interpreted in the context of the absolute cell counts (cells/L). Performed By: #### C BCDF #### [address] [address] Basophils (Bld) [#/Vol] 0.03 10*3/uL Normal 0.00 - 0.10 [facility] Comment on above: Performed By: #### C BCDF #### [address] [address] Basophils/100 WBC (Bld) 0.6 % Normal 0.0 - 2.0 [facility] Comment on above: Performed By: #### C BCDF #### [address] [address] Eosinophils (Bld) [#/Vol] 0.18 10*3/uL Normal 0.00 - 0.70 [facility] Comment on above: Performed By: #### C BCDF #### [address] [address] Eosinophils/100 WBC (Bld) 3.8 % Normal 0.0 - 6.0 [facility] Comment on above: Performed By: #### C BCDF #### [address] [address] Erythrocyte distribution width (RBC) [Ratio] 15.7 % High 11.5 - 14.5 [facility] Comment on above: Performed By: #### C BCDF #### [address] [address] Hematocrit (Bld) [Volume fraction] 36.4 % Normal 36.0 - 46.0 [facility] Comment on above: Performed By: #### C BCDF #### [address] [address] Hemoglobin (Bld) [Mass/Vol] 11.6 g/dL Low 12.0 - 16.0 [facility] Comment on above: Performed By: #### C BCDF #### [address] [address] Lymphocytes (Bld) [#/Vol] 1.12 10*3/uL Low 1.20 - 4.80 [facility] Comment on above: Performed By: #### C BCDF #### [address] [address] Lymphocytes/100 WBC (Bld) 23.8 % Normal 13.0 - 44.0 [facility] Comment on above: Performed By: #### C BCDF #### [address] [address] MCHC (RBC) [Mass/Vol] 31.9 g/dL Low 32.0 - 36.0 [facility] Comment on above: Performed By: #### C BCDF #### [address] [address] MCV (RBC) [Entitic vol] 95 fL Normal 80 - 100 [facility] Comment on above: Performed By: #### C BCDF #### [address] [address] Monocytes (Bld) [#/Vol] 0.38 10*3/uL Normal 0.10 - 1.00 [facility] Comment on above: Performed By: #### C BCDF #### [address] [address] Monocytes/100 WBC (Bld) 8.1 % Normal 2.0 - 10.0 [facility] Comment on above: Performed By: #### C BCDF #### [address] [address] Neutrophils (Bld) [#/Vol] 2.98 10*3/uL Normal 1.20 - 7.70 [facility] Comment on above: Result Comment: Perc ent differential counts (%) should be interpreted in the context of the absolute cell counts (cells/L). Performed By: #### C BCDF #### [address] [address] Neutrophils/100 WBC (Bld) 63.5 % Normal 40.0 - 80.0 [facility] Comment on above: Performed By: #### C BCDF #### [address] [address] Platelets (Bld) [#/Vol] 267 10*3/uL Normal 150 - 450 [facility] Comment on above: Performed By: #### C BCDF #### [address] [address] RBC 3.83 x10E12/L Low 4.00 - 5.20 [facility] Comment on above: Performed By: #### C BCDF #### [address] [address] WBC (Bld) [#/Vol] 4.7 10*3/uL Normal 4.4 - 11.3 [facility] Comment on above: Performed By: #### C BCDF #### [address] [address] COMPREHENSIVE PANELon 2022 Albumin [Mass/Vol] 4.0 g/dL Normal 3.4 - 5.0 [facility] Comment on above: Performed By: #### C MP #### [address] [address] ALP [Catalytic activity/Vol] 64 U/L Normal 33 - 136 [facility] Comment on above: Performed By: #### C MP #### [address] [address] ALT [Catalytic activity/Vol] 19 U/L Normal 7 - 45 [facility] Comment on above: Result Comment: Lori ents treated with Sulfasalazine may generate falsely decreased results for ALT. Performed By: #### C MP #### [address] [address] Anion gap [Moles/Vol] 9 mmol/L Low 10 - 20 [facility] Comment on above: Performed By: #### C MP #### [address] [address] AST [Catalytic activity/Vol] 26 U/L Normal 9 - 39 [facility] Comment on above: Performed By: #### C MP #### [address] [address] Bilirubin [Mass/Vol] 0.5 mg/dL Normal 0.0 - 1.2 [facility] Comment on above: Performed By: #### C MP #### [address] [address] Calcium [Mass/Vol] 9.5 mg/dL Normal 8.6 - 10.3 [facility] Comment on above: Performed By: #### C MP #### [address] [address] Chloride [Moles/Vol] 104 mmol/L Normal 98 - 107 [facility] Comment on above: Performed By: #### C MP #### [address] [address] Creatinine [Mass/Vol] 0.71 mg/dL Normal 0.50 - 1.05 [facility] Comment on above: Performed By: #### C MP #### [address] [address] eGFR FEMALE >90 Normal >90 [facility] Comment on above: Result Comment: CALC ULATIONS OF ESTIMATED GFR ARE PERFORMED USING THE 2020 CKD-EPI STUDY REFIT EQUATION WITHOUT THE RACE VARIABLE FOR THE IDMS-TRACEABLE CREATININE METHODS. https://jasn.asnjournals.org/content//ASN.541747398 8 Performed By: #### C MP #### [address] [address] Glucose [Mass/Vol] 97 mg/dL Normal 74 - 99 [facility] Comment on above: Performed By: #### C MP #### [address] [address] HCO3 (Bld) [Moles/Vol] 29 mmol/L Normal 21 - 32 [facility] Comment on above: Performed By: #### C MP #### [address] [address] Potassium [Moles/Vol] 4.4 mmol/L Normal 3.5 - 5.3 [facility] Comment on above: Performed By: #### C MP #### [address] [address] Protein [Mass/Vol] 6.1 g/dL Low 6.4 - 8.2 [facility] Comment on above: Performed By: #### C MP #### [address] [address] Sodium [Moles/Vol] 138 mmol/L Normal 136 - 145 [facility] Comment on above: Performed By: #### C MP #### [address] [address] Urea nitrogen [Mass/Vol] 22 mg/dL Normal 6 - 23 [facility] Comment on above: Performed By: #### C MP #### [address] [address] Medicare Annual Wellness Vis iton 05-12-2022 Medicare Annual Wellness Visit *Chief Complaint MCW, 6 mo f/u, lab review History of Present Illness The patient is being seen for the subsequent annual wellness visit. Past Medical, Surgical and Family History: reviewed and updated in chart. Medications and Supplements: Review of all medications by a prescribing practitioner or clinical pharmacist (such as prescriptions, OTCs, herbal therapies and supplements) documented in the medical record. No, the patient is not using opioids. Patient Self Assessment of Health Status: good. Tobacco use: Non-User Alcohol use: Non-User Illicit drug use: Non-User Current diet: well balanced diet. Exercise Frequency: regularly. Depression/Suicide Screening: . During the past 2 weeks, the patient has not felt down, depressed or hopeless. During the past 2 weeks, the patient has not felt little interest or pleasure in doing things. Hearing Impairment: none. Cognitive Impairment: No cognitive impairment observed. Bathing: performs independently. Dressing: performs independently. Walking: performs independently. Managing Finances: performs independently. Shopping: performs independently. Managing Medications: performs independently. Housework / Basic Home Maintenance: performs independently. Falls Risk Screening:. NARENDRA has not fallen in the last 6 months. Home safety risk factors: none. Advance directives:. Advanced Care Planning discussed and documented advance care plan or surrogate decision maker documented in the medical record. Patient has living will. Patient has healthcare POA. Here for f/u HTN, high chol, GERD (Dr Moncada), osteoporosis, anxiety, chronic pain (Dr Alcantar), rheumatoid arthritis (Dr Chisholm), precancerous lesions on legs ([facility]) - all stable. She states that overall she is doing pretty well. She uses xanax prn for her anxiety and tramadol rarely for pain, has been on both for a long time, they work well, risks/benefits/alternatives have been discussed and considered. OARRS reviewed and is appropriate. Review of Systems Constitutional: Negative except as documented in history of present illness. Respiratory: Negative except as documented in history of present illness. Cardiovascular: Negative except as documented in history of present illness. *Active Problems Anxiety (300.00) (F41.9) Chronic pain (338.29) (G89.29) Class 1 obesity with body mass index (BMI) of 33.0 to 33.9 in adult (278.00,V85.33) (E66.9,Z68.33) Degenerative disk disease (722.6) Edema (782.3) (R60.9) Encounter for immunization (V03.89) (Z23) Encounter for Medicare annual wellness exam (V70.0) (Z00.00) GERD (gastroesophageal reflux disease) (530.81) (K21.9) History of anemia (V12.3) (Z86.2) HTN (hypertension) (401.9) (I10) Hypercholesteremia (272.0) (E78.00) Knee pain (719.46) (M25.569) Left hip pain (719.45) (M25.552) Lumbosacral radiculopathy (724.4) (M54.17) Lumbosacral spondylosis (721.3) (M47.817) Neurogenic claudication due to lumbar spinal stenosis (724.03) (M48.062) 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) Osteoporosis (733.00) (M81.0) Primary generalized (osteo)arthritis (715.09) (M15.0) Rheumatoid arthritis (714.0) (M06.9) Rheumatoid arthritis Sciatica (724.3) (M54.30) Visit for screening mammogram (V76.12) (Z12.31) Past Medical History History of Hip pain, acute (719.45) (M25.559) Resolved Date: 05 Nov 2020 History of anemia (V12.3) (Z86.2) Resolved Date: 07 May 2020 History of Osteoporosis screening (V82.81) (Z13.820) Dexa 06/28/17 History of Screen for colon cancer (V76.51) (Z12.11) colooscopy 01/28/15 History of Screening for breast cancer (V76.10) (Z12.39) mammo 06/29/18 Surgical History History of Appendectomy History of Back surgery History of Epidural steroid injection Managed By: Nirav Alcantar (Pain Medicine) Lt L5+S1 TFESI History of Epidural steroid injection Managed By: Nirav Alcantar (Pain Medicine) Caudal HERMELINDA History of Esophagogastroduodenoscopy History of Foot surgery History of Hernia repair History of Hip replacement RIGHT HIP 2010 History of Knee surgery History of Rosalva fundoplication laparoscopic History of Pelvic surgery CEMENT History of Rectocele repair History of Salpingo-oophorectomy bilateral History of Tonsillectomy History of Total hysterectomy abdominal History of Tubal ligation Family History Family history of diabetes mellitus (V18.0) (Z83.3) Family history of heart failure (V17.49) (Z82.49) Family history of hypertension (V17.49) (Z82.49) Family history of heart failure (V17.49) (Z82.49) Family history of heart failure (V17.49) (Z82.49) Family history of heart failure (V17.49) (Z82.49) Family history of hypertension (V17.49) (Z82.49) Family history of diabetes mellitus (V18.0) (Z83.3) Family history of throat cancer (V16.0) (Z80.0) Social History Coffee Does not use illicit drugs (V49.89) (Z78.9) Never smoker Occasional alcohol use Patient has living will (V (more content not included)... Normal [facility] PHQ-2 VITALSon 05-12-2022 Adult depression screening assessment No [facility] Phone: Tobacco Screening.on 023 Fall risk assessment a) No falls within the last year [facility] Phone: Tobacco use status [facility] b) No [employer] Phone: Provider Note - ED v3on 04-28 Provider Note - ED v3 Provider Note: Chart Review: ED NOTES ED NOTES: Presents for evaluation of URI. Symptoms including cough, hoarse voice, congestion, body aches, malaise, and headache have been present for 5 days and refractory to OTC meds (Vicks Cold & Sinus). No fever, chills, loss of taste/smell, nausea, vomiting, abdominal pain, CP, or SOB. No exacerbating factors. No known COVID 19/flu exposure and tested yesterday at home antigen COVID test which was negative. No hx COPD/asthma or smoking. HISTORY OF PRESENTING ILLNESS NARENDRA is a 71 year old Female and was seen by me at 10-May-2022 09:10. Triage Information: Most recent Vital Sign Value Date PAST MEDICAL HISTORY ALLERGIES/INTOLERANCES: Allergy Allergen: codeine Type: Drug Reaction: Other Allergen: Augmentin Type: Drug Reaction: Unknown Allergen: morphine Type: Drug Reaction: Unknown HEALTH HISTORY: Medical History Name:Osteoporosis Code:M81.0 OUTPATIENT MEDICATIONS: Home Medications Review Status for Reconciliation: Complete Med Status: Patient Currently Takes Medications Drug Name: lisinopril 5 mg oral tablet Instructions: 1 tab(s) orally once a day Drug Name: meloxicam 15 mg oral tablet Instructions: 1 tab(s) orally once a day Drug Name: atorvastatin 20 mg oral tablet Instructions: 1 tab(s) orally once a day Drug Name: gabapentin 300 mg oral capsule Instructions: orally 4 times a day Drug Name: traMADol 50 mg oral tablet Instructions: 1 tab(s) orally every 4 hours Drug Name: ALPRAZolam 0.25 mg oral tablet Instructions: 1 tab(s) orally 3 times a day Drug Name: methotrexate 2.5 mg oral tablet Instructions: null Drug Name: albuterol 90 mcg/inh inhalation aerosol Instructions: 2 puff(s) inhaled 2 times a day as needed for cough Drug Name: furosemide 20 mg oral tablet Instructions: 1 tab(s) orally Drug Name: azithromycin 250 mg oral tablet Instructions: Take 2 tabs (500mg) x 1 days, then 1 tab (250mg) once daily x 4 days Drug Name: Medrol Dosepak 4 mg oral tablet Instructions: Take as directed. SIGNIFICANT EVENTS: Clinical Events Description:Surgical Procedure Additional Notes:1. L L5 + S1 TFESI; Description:Surgical Procedure Additional Notes:1. CAUDAL HERMELINDA; Immunizations Description:Tdap Past Medical History Description:Hypertension (HTN) REVIEW OF SYSTEMS All other systems reviewed and are negative REVIEW OF SYSTEMS: Comments See HPI PHYSICAL EXAM CONSTITUTIONAL: Hoarse voice, mildly ill appearing but well nourished, awake, alert, oriented to person, place, time/situation and in no apparent distress. HENMT: Airway patent, ears with clear tympanic membranes bilaterally. Nasal mucosa clear. Mouth with normal mucosa. Throat has no vesicles, no oropharyngeal exudates and uvula is midline. Face with no lymph node enlargement. EYES: Clear bilaterally, pupils equal, round and reactive to light. CARDIOVASCULAR: Normal rate, regular rhythm. Heart sounds S1, S2. No murmurs, rubs or gallops. PMI non-displaced. RESPIRATORY: Breath sounds clear and equal bilaterally. NEUROLOGICAL: Alert and oriented, no focal deficits, no motor or sensory deficits. SKIN: Skin normal color for race, warm, dry and intact. No evidence of trauma. PSYCHIATRIC: Alert and oriented to person, place, time/situation. normal mood and affect. No apparent risk to self or others. CRITICAL CARE VITAL SIGNS: T PRBP SpO2O2(LPM) %FiO2 Method 10-May-2022 09:04:[id number]/91 95 MDM MDM/ED COURSE: Differential Diagnosis: asthma, bronchitis, bronchospasm, COPD, pneumonia, sinusitis, upper respiratory infection and viral syndrome Discussed Findings with: patient Data Reviewed: vital signs Treatment Plan: Rx Zpak and medrol dose jessica. Encouraged patient to continue otc cold remedies, push by mouth fluids and rest. Patient's clinical presentation is otherwise unremarkable at this time. Patient is discharged with instructions to follow-up with primary care or seek emergency medical attention for worsening symptoms or any new concerns. DISPOSITION Diagnosis/Annotation: ED Dx Name:Acute bronchitis Code:J20.9 Disposition: discharged Type: home CONSULT CRITICAL CARE TIME Is this a critically ill patient: no Electronic Signatures: Nena Aguilar (MANAGER ORGANIZATIONAL-P[employer]ER [employer]ELER) (Signed 10-May-2022 09:31) Authored: ED Notes, HPI, PMH, ROS, PE, Results/Vital Signs, MDM/ED Course, Clinical Impression, Attestation, Chart Review, Scores Last Updated: 10-May-2022 09:31 by Nena Aguilar (MANAGER ORGANIZATIONAL-P[employer]ER REELER) Normal [facility] CBC AND DIFFERENTIALon 05-05 % AUTOMATED IMMATURE GRAN 0.2 % Normal 0.0 - 0.9 [facility] Comment on above: Result Comment: Karla ture Granulocyte Count (IG) includes promyelocytes, myelocytes and metamyelocytes but does not include bands. Percent differential counts (%) should be interpreted in the context of the absolute cell counts (cells/L). Performed By: #### C BCDF #### [address] [address] Basophils (Bld) [#/Vol] 0.04 10*3/uL Normal 0.00 - 0.10 [facility] Comment on above: Performed By: #### C BCDF #### [address] [address] Basophils/100 WBC (Bld) 0.8 % Normal 0.0 - 2.0 [facility] Comment on above: Performed By: #### C BCDF #### [address] [address] Eosinophils (Bld) [#/Vol] 0.23 10*3/uL Normal 0.00 - 0.70 [facility] Comment on above: Performed By: #### C BCDF #### [address] [address] Eosinophils/100 WBC (Bld) 4.6 % Normal 0.0 - 6.0 [facility] Comment on above: Performed By: #### C BCDF #### [address] [address] Erythrocyte distribution width (RBC) [Ratio] 15.5 % High 11.5 - 14.5 [facility] Comment on above: Performed By: #### C BCDF #### [address] [address] Hematocrit (Bld) [Volume fraction] 35.7 % Low 36.0 - 46.0 [facility] Comment on above: Performed By: #### C BCDF #### [address] [address] Hemoglobin (Bld) [Mass/Vol] 11.1 g/dL Low 12.0 - 16.0 [facility] Comment on above: Performed By: #### C BCDF #### [address] [address] Lymphocytes (Bld) [#/Vol] 1.45 10*3/uL Normal 1.20 - 4.80 [facility] Comment on above: Performed By: #### C BCDF #### [address] [address] Lymphocytes/100 WBC (Bld) 29.2 % Normal 13.0 - 44.0 [facility] Comment on above: Performed By: #### C BCDF #### [address] [address] MCHC (RBC) [Mass/Vol] 31.1 g/dL Low 32.0 - 36.0 [facility] Comment on above: Performed By: #### C BCDF #### [address] [address] MCV (RBC) [Entitic vol] 97 fL Normal 80 - 100 [facility] Comment on above: Performed By: #### C BCDF #### [address] [address] Monocytes (Bld) [#/Vol] 0.43 10*3/uL Normal 0.10 - 1.00 [facility] Comment on above: Performed By: #### C BCDF #### [address] [address] Monocytes/100 WBC (Bld) 8.7 % Normal 2.0 - 10.0 [facility] Comment on above: Performed By: #### C BCDF #### [address] [address] Neutrophils (Bld) [#/Vol] 2.81 10*3/uL Normal 1.20 - 7.70 [facility] Comment on above: Result Comment: Perc ent differential counts (%) should be interpreted in the context of the absolute cell counts (cells/L). Performed By: #### C BCDF #### [address] [address] Neutrophils/100 WBC (Bld) 56.5 % Normal 40.0 - 80.0 [facility] Comment on above: Performed By: #### C BCDF #### [address] [address] Platelets (Bld) [#/Vol] 264 10*3/uL Normal 150 - 450 [facility] Comment on above: Performed By: #### C BCDF #### [address] [address] RBC 3.69 x10E12/L Low 4.00 - 5.20 [facility] Comment on above: Performed By: #### C BCDF #### [address] [address] WBC (Bld) [#/Vol] 5.0 10*3/uL Normal 4.4 - 11.3 [facility] Comment on above: Performed By: #### C BCDF #### [address] [address] COMPREHENSIVE PANELon 2022 Anion gap [Moles/Vol] 10 mmol/L Normal 10 - 20 [facility] Comment on above: Performed By: #### T HYDS #### [address] [address] Chloride [Moles/Vol] 104 mmol/L Normal 98 - 107 [facility] Comment on above: Performed By: #### T HYDS #### [address] [address] HCO3 (Bld) [Moles/Vol] 30 mmol/L Normal 21 - 32 [facility] Comment on above: Performed By: #### T HYDS #### [address] [address] Potassium [Moles/Vol] 4.2 mmol/L Normal 3.5 - 5.3 [facility] Comment on above: Performed By: #### T HYDS #### [address] [address] Sodium [Moles/Vol] 140 mmol/L Normal 136 - 145 [facility] Comment on above: Performed By: #### T HYDS #### [address] [address] Albumin [Mass/Vol] 4.0 g/dL Normal 3.4 - 5.0 [facility] Comment on above: Performed By: #### T HYDS #### [address] [address] ALP [Catalytic activity/Vol] 65 U/L Normal 33 - 136 [facility] Comment on above: Performed By: #### T HYDS #### [address] [address] ALT [Catalytic activity/Vol] 22 U/L Normal 7 - 45 [facility] Comment on above: Result Comment: Lori ents treated with Sulfasalazine may generate falsely decreased results for ALT. Performed By: #### T HYDS #### [address] [address] AST [Catalytic activity/Vol] 31 U/L Normal 9 - 39 [facility] Comment on above: Performed By: #### T HYDS #### [address] [address] Bilirubin [Mass/Vol] 0.5 mg/dL Normal 0.0 - 1.2 [facility] Comment on above: Performed By: #### T HYDS #### [address] [address] Calcium [Mass/Vol] 9.2 mg/dL Normal 8.6 - 10.3 [facility] Comment on above: Performed By: #### T HYDS #### [address] [address] Creatinine [Mass/Vol] 0.72 mg/dL Normal 0.50 - 1.05 [facility] Comment on above: Performed By: #### T HYDS #### [address] [address] GFR/1.73 sq M.predicted among non-blacks MDRD (S/P/Bld) [Vol rate/Area] 90 mL/min/{1.73_m2} Normal >90 [facility] Comment on above: Result Comment: CALC ULATIONS OF ESTIMATED GFR ARE PERFORMED USING THE 2020 CKD-EPI STUDY REFIT EQUATION WITHOUT THE RACE VARIABLE FOR THE IDMS-TRACEABLE CREATININE METHODS. https://jasn.asnjournals.org/content//ASN.[email or web address] 8 Performed By: #### T HYDS #### [address] [address] Glucose [Mass/Vol] 93 mg/dL Normal 74 - 99 [facility] Comment on above: Performed By: #### T HYDS #### [address] [address] Protein [Mass/Vol] 6.2 g/dL Low 6.4 - 8.2 [facility] Comment on above: Performed By: #### T HYDS #### [address] [address] Urea nitrogen [Mass/Vol] 27 mg/dL High 6 - 23 [facility] Comment on above: Performed By: #### T HYDS #### [address] [address] Complete Blood Count + Diffe rentialon 05-05-2022 Basophils/100 WBC (Bld) 0.8 % 0.0 - 2.0 [facility]: Erythrocyte distribution width (RBC) [Ratio] 15.5 % above high threshold See Below [facility] Phone: Comment on above: Reference Range: 11. 5 - 14.5 Hematocrit (Bld) [Volume fraction] 35.7 % below low threshold See Below [facility] Phone: Comment on above: Reference Range: 36. 0 - 46.0 Hemoglobin (Bld) [Mass/Vol] 11.1 g/dL below low threshold See Below [facility] Phone: Comment on above: Reference Range: 12. 0 - 16.0 Lymphocytes/100 WBC (Bld) 29.2 % See Below [facility] Phone: Comment on above: Reference Range: 13. 0 - 44.0 MCHC (RBC) [Mass/Vol] 31.1 g/dL below low threshold See Below [facility] Phone: Comment on above: Reference Range: 32. 0 - 36.0 MCV (RBC) [Entitic vol] 97 fL 80 - 100 [facility] Phone: Monocytes/100 WBC (Bld) 8.7 % 2.0 - 10.0 [facility] Phone: Neutrophils/100 WBC (Bld) 56.5 % See Below [facility] Phone: Comment on above: Reference Range: 40. 0 - 80.0 Platelets (Bld) [#/Vol] 264 10*3/uL 150 - 450 [facility] Phone: RBC (Bld) [#/Vol] 3.69 {x10E12/L} below low threshold See Below [facility] Phone: Comment on above: Reference Range: 4.0 0 - 5.20 WBC (Bld) [#/Vol] 5.0 10*3/uL 4.4 - 11.3 [facility]: Complete Blood Count + Differential 0.04 {x10E9/L} See Below [facility] [employer] Phone: Comment on above: Reference Range: 0.0 0 - 0.10 Complete Blood Count + Differential 0.23 {x10E9/L} See Below [facility] [employer] Phone: Comment on above: Reference Range: 0.0 0 - 0.70 Complete Blood Count + Differential 0.43 {x10E9/L} See Below [facility] [employer] Phone: Comment on above: Reference Range: 0.1 0 - 1.00 Complete Blood Count + Differential 1.45 {x10E9/L} See Below [facility] [employer] Phone: Comment on above: Reference Range: 1.2 0 - 4.80 Complete Blood Count + Differential 2.81 {x10E9/L} See Below [facility] [employer] Phone: Comment on above: Reference Range: 1.2 0 - 7.70 Percent differential counts (%) should be interpreted in the context of the absolute cell counts (cells/L). Complete Blood Count + Differential 4.6 % 0.0 - 6.0 [facility] [employer] Phone: Complete Blood Count + Differential 0.2 % 0.0 - 0.9 [facility] [employer] Phone: Comment on above: Immature Granulocyte Count (IG) includes promyelocytes, myelocytes and metamyelocytes but does not include bands. Percent differential counts (%) should be interpreted in the context of the absolute cell counts (cells/L). LIPID PANEL (CORONARY RISK 2 )on 05-05-2022 Cholesterol [Mass/Vol] 129 mg/dL Normal 0 - 199 [facility] Comment on above: Result Comment: . AGE DESIRABLE BORDERLINE HIGH HIGH 0-19 Y 0 - 169 170 - 199 >/= 200 20-24 Y 0 - 189 190 - 224 >/= 225 >24 Y 0 - 199 200 - 239 >/= 240 All ranges are based on fasting samples. Specific therapeutic targets will vary based on patient-specific cardiac risk. . Pediatric guidelines reference:Pediatrics 2011, 128(S5). Adult guidelines reference: NCEP ATPIII Guidelines, ALFIE 2001, 258:2486-97 . Venipuncture immediately after or during the administration of Metamizole may lead to falsely low results. Testing should be performed immediately prior to Metamizole dosing. Performed By: #### C BCDF #### [address] [address] Cholesterol in HDL [Mass/Vol] 66.0 mg/dL Normal [facility] Comment on above: Result Comment: . AGE VERY LOW LOW NORMAL HIGH 0-19 Y < 35 < 40 40-45 ---- 20-24 Y ---- < 40 >45 ---- >24 Y ---- < 40 40-60 >60 . Performed By: #### C BCDF #### [address] [address] Cholesterol in LDL [Mass/Vol] 48 mg/dL Normal 0 - 99 [facility] Comment on above: Result Comment: . NEAR BORD AGE DESIRABLE OPTIMAL HIGH HIGH VERY HIGH 0-19 Y 0 - 109 --- 110-129 >/= 130 ---- 20-24 Y 0 - 119 --- 120-159 >/= 160 ---- >24 Y 0 - 99 100-129 130-159 160-189 >/=190 . Performed By: #### C BCDF #### [address] [address] Cholesterol in VLDL [Mass/Vol] 15 mg/dL Normal 0 - 40 [facility] Comment on above: Performed By: #### C BCDF #### [address] [address] Cholesterol.total/ Cholesterol in HDL [Mass ratio] 2.0 {ratio} Normal [facility] Comment on above: Result Comment: REF VALUES DESIRABLE < 3.4 HIGH RISK > 5.0 Performed By: #### C BCDF #### [address] [address] Triglyceride [Mass/Vol] 74 mg/dL Normal 0 - 149 [facility] Comment on above: Result Comment: . AGE DESIRABLE BORDERLINE HIGH HIGH VERY HIGH 0 D-90 D 19 - 174 ---- ---- ---- 91 D- 9 Y 0 - 74 75 - 99 >/= 100 ---- 10-19 Y 0 - 89 90 - 129 >/= 130 ---- 20-24 Y 0 - 114 115 - 149 >/= 150 ---- >24 Y 0 - 149 150 - 199 200- 499 >/= 500 . Venipuncture immediately after or during the administration of Metamizole may lead to falsely low results. Testing should be performed immediately prior to Metamizole dosing. Performed By: #### C BCDF #### [address] [address] Laboratory - Chemistry and C hemistry - challengeon 05-05-2022 Albumin BCP dye [Mass/Vol] 4.0 g/dL 3.4 - 5.0 [facility] Phone: ALP [Catalytic activity/Vol] 65 U/L 33 - 136 [facility] Phone: ALT With P-5'-P [Catalytic activity/Vol] 22 U/L 7 - 45 [facility] [employer] Work Phone: Comment on above: Patients treated wit h Sulfasalazine may generate falsely decreased results for ALT. Anion gap [Moles/Vol] 10 mmol/L 10 - 20 [facility] Phone: AST With P-5'-P [Catalytic activity/Vol] 31 U/L 9 - 39 [facility] Work Phone: Bilirubin [Mass/Vol] 0.5 mg/dL 0.0 - 1.2 [facility] Phone: Calcium [Mass/Vol] 9.2 mg/dL 8.6 - 10.3 [facility] [employer] Work Phone: Chloride [Moles/Vol] 104 mmol/L 98 - 107 [facility] [employer] Work Phone: CO2 [Moles/Vol] 30 mmol/L 21 - 32 [facility] [employer] Work Phone: Creatinine [Mass/Vol] 0.72 mg/dL See Below [facility] [employer] Phone: Comment on above: Reference Range: 0.5 0 - 1.05 Glucose [Mass/Vol] 93 mg/dL 74 - 99 [facility] [employer] Work Phone: Potassium [Moles/Vol] 4.2 mmol/L 3.5 - 5.3 [facility] [employer] Work Phone: Protein [Mass/Vol] 6.2 g/dL below low threshold 6.4 - 8.2 [facility] [employer] Work Phone: Sodium [Moles/Vol] 140 mmol/L 136 - 145 [facility] [employer] Work Phone: TSH Qn 2.45 m[IU]/L See Below [facility] [employer] Phone: Comment on above: Reference Range: 0.4 4 - 3.98 TSH testing is performed using different testing methodology at [facility] than at other [facility]. Direct result comparisons should only be made within the same method. Urea nitrogen [Mass/Vol] 27 mg/dL above high threshold 6 - 23 [facility] [employer] Work Phone: Lipid Panelon 05-05-2022 Cholesterol [Mass/Vol] 129 mg/dL 0 - 199 [facility] [employer] Work Phone: Comment on above: . AGE DESIRABLE BORD RENAY HIGH HIGH 0-19 Y 0 - 169 170 - 199 >/= 200 20-24 Y 0 - 189 190 - 224 >/= 225 >24 Y 0 - 199 200 - 239 >/= 240 All ranges are based on fasting samples. Specific therapeutic targets will vary based on patient-specific cardiac risk.. Pediatric guidelines reference:Pediatrics 2011, 128(S5). Adult guidelines reference: NCEP ATPIII Guidelines, ALFIE 2001, 258:2486-97. Venipuncture immediately after or during the administration of Metamizole may lead to falsely low results. Testing should be performed immediately prior to Metamizole dosing. Cholesterol in HDL [Mass/Vol] 66.0 mg/dL [employer] Phone: Comment on above: . AGE VERY LOW LOW N ORMAL HIGH 0-19 Y < 35 < 40 40-45 ---- 20- 24 Y ---- < 40 >45 ---- >24 Y ---- < 40 40-60 >60. Cholesterol in LDL [Mass/Vol] 48 mg/dL 0 - 99 [employer] Phone: Comment on above: . NEAR BORD AGE JEFFREY RABLE OPTIMAL HIGH HIGH VERY HIGH 0-19 Y 0 - 109 --- 110-129 >/= 130 ---- 20-24 Y 0 - 119 --- 120-159 >/= 160 ---- >24 Y 0 - 99 100-129 130-159 160-189 >/=190. Cholesterol.total/ Cholesterol in HDL [Mass ratio] 2.0 {ratio} [employer] Phone: Comment on above: REF VALUESDESIRABLE < 3.4HIGH RISK > 5.0 Triglyceride [Mass/Vol] 74 mg/dL 0 - 149 [employer] Phone: Comment on above: . AGE DESIRABLE BORD RENAY HIGH HIGH VERY HIGH 0 D-90 D 19 - 174 ---- ---- ----91 D- 9 Y 0 - 74 75 - 99 >/= 100 ---- 10-19 Y 0 - 89 90 - 129 >/= 130 ---- 20-24 Y 0 - 114 115 - 149 >/= 150 ---- >24 Y 0 - 149 150 - 199 200- 499 >/= 500. Venipuncture immediately after or during the administration of Metamizole may lead to falsely low results. Testing should be performed immediately prior to Metamizole dosing. Lipid Panel 15 mg/dL 0 - 40 [employer] Work Phone: No Panel Informationon 05-05 90 {mL/min/1.73m2} >90 [facility] [employer] Work Phone: Comment on above: CALCULATIONS OF TAYE MATED GFR ARE PERFORMED USING THE 2020 CKD-EPI STUDY REFIT EQUATION WITHOUT THE RACE VARIABLE FOR THE IDMS-TRACEABLE CREATININE METHODS.https://jasn.asnjournals.org/content/early//ASN.2 535165266 TSH WITH REFLEX TO FREE T4 I F ABNORMALon 05-05-2022 TSH Qn 2.45 m[IU]/L Normal 0.44 - 3.98 [facility] Comment on above: Result Comment: TSH testing is performed using different testing methodology at [facility] than at other [facility]. Direct result comparisons should only be made within the same method. Performed By: #### T HYDS #### [address] [address] VITAMIN B12on 05-05-2022 Cobalamin (Vitamin B12) [Mass/Vol] 896 pg/mL Normal 211 - 911 [facility] Comment on above: Performed By: #### V TB12 #### [address] [address] VITAMIN D, 25-HYDROXYon VITAMIN D, 25-HYDROXY 43 ng/mL Normal [facility] Comment on above: Result Comment: . DEFICIENCY: < 20 NG/ML INSUFFICIENCY: 20-29 NG/ML SUFFICIENCY: 30-100 NG/ML THIS ASSAY ACCURATELY QUANTIFIES THE SUM OF VITAMIN D3, 25-HYDROXY AND VIT D2,25-HYDROXY. Performed By: #### C BCDF #### [address] [place] [address] Vitamin B12, Serumon 023 Cobalamin (Vitamin B12) [Mass/Vol] 896 pg/mL 211 - 911 [facility] [employer] Work Phone: Vitamin D 25-Hydroxyon 05-05 25-hydroxyvitamin D3 [Mass/Vol] 43 ng/mL [facility] Work Phone: Comment on above: .DEFICIENCY: < 20 NG /MLINSUFFICIENCY: 20-29 NG/MLSUFFICIENCY: 30-100 NG/MLTHIS ASSAY ACCURATELY QUANTIFIES THE SUM OFVITAMIN D3, 25-HYDROXY AND VIT D2,25-HYDROXY. CBC AND DIFFERENTIALon 04-15 % AUTOMATED IMMATURE GRAN 0.2 % Normal 0.0 - 0.9 [facility] Comment on above: Result Comment: Karal ture Granulocyte Count (IG) includes promyelocytes, myelocytes and metamyelocytes but does not include bands. Percent differential counts (%) should be interpreted in the context of the absolute cell counts (cells/L). Performed By: #### C BCDF #### [address] [address] Basophils (Bld) [#/Vol] 0.04 10*3/uL Normal 0.00 - 0.10 [facility] Comment on above: Performed By: #### C BCDF #### [address] [address] Basophils/100 WBC (Bld) 0.7 % Normal 0.0 - 2.0 [facility] Comment on above: Performed By: #### C BCDF #### [address] [address] Eosinophils (Bld) [#/Vol] 0.19 10*3/uL Normal 0.00 - 0.70 [facility] Comment on above: Performed By: #### C BCDF #### [address] [address] Eosinophils/100 WBC (Bld) 3.3 % Normal 0.0 - 6.0 [facility] Comment on above: Performed By: #### C BCDF #### [address] [address] Erythrocyte distribution width (RBC) [Ratio] 15.6 % High 11.5 - 14.5 [facility] Comment on above: Performed By: #### C BCDF #### [address] [address] Hematocrit (Bld) [Volume fraction] 35.9 % Low 36.0 - 46.0 [facility] Comment on above: Performed By: #### C BCDF #### [address] [address] Hemoglobin (Bld) [Mass/Vol] 11.0 g/dL Low 12.0 - 16.0 [facility] Comment on above: Performed By: #### C BCDF #### [address] [address] Lymphocytes (Bld) [#/Vol] 1.30 10*3/uL Normal 1.20 - 4.80 [facility] Comment on above: Performed By: #### C BCDF #### [address] [address] Lymphocytes/100 WBC (Bld) 22.8 % Normal 13.0 - 44.0 [facility] Comment on above: Performed By: #### C BCDF #### [address] [address] MCHC (RBC) [Mass/Vol] 30.6 g/dL Low 32.0 - 36.0 [facility] Comment on above: Performed By: #### C BCDF #### [address] [address] MCV (RBC) [Entitic vol] 96 fL Normal 80 - 100 [facility] Comment on above: Performed By: #### C BCDF #### [address] [address] Monocytes (Bld) [#/Vol] 0.46 10*3/uL Normal 0.10 - 1.00 [facility] Comment on above: Performed By: #### C BCDF #### [address] [address] Monocytes/100 WBC (Bld) 8.1 % Normal 2.0 - 10.0 [facility] Comment on above: Performed By: #### C BCDF #### [address] [address] Neutrophils (Bld) [#/Vol] 3.71 10*3/uL Normal 1.20 - 7.70 [facility] Comment on above: Result Comment: Perc ent differential counts (%) should be interpreted in the context of the absolute cell counts (cells/L). Performed By: #### C BCDF #### [address] [address] Neutrophils/100 WBC (Bld) 64.9 % Normal 40.0 - 80.0 [facility] Comment on above: Performed By: #### C BCDF #### [address] [address] Platelets (Bld) [#/Vol] 312 10*3/uL Normal 150 - 450 [facility] Comment on above: Performed By: #### C BCDF #### [address] [address] RBC 3.73 x10E12/L Low 4.00 - 5.20 [facility] Comment on above: Performed By: #### C BCDF #### [address] [address] WBC (Bld) [#/Vol] 5.7 10*3/uL Normal 4.4 - 11.3 [facility] Comment on above: Performed By: #### C BCDF #### [address] [address] COMPREHENSIVE PANELon 2022 Albumin [Mass/Vol] 4.0 g/dL Normal 3.4 - 5.0 [facility] Comment on above: Performed By: #### C BCDF #### [address] [address] ALP [Catalytic activity/Vol] 72 U/L Normal 33 - 136 [facility] Comment on above: Performed By: #### C BCDF #### [address] [address] ALT [Catalytic activity/Vol] 22 U/L Normal 7 - 45 [facility] Comment on above: Result Comment: Lori ents treated with Sulfasalazine may generate falsely decreased results for ALT. Performed By: #### C BCDF #### [address] [address] Anion gap [Moles/Vol] 7 mmol/L Low 10 - 20 [facility] Comment on above: Performed By: #### C BCDF #### [address] [address] AST [Catalytic activity/Vol] 28 U/L Normal 9 - 39 [facility] Comment on above: Performed By: #### C BCDF #### [address] [address] Bilirubin [Mass/Vol] 0.7 mg/dL Normal 0.0 - 1.2 [facility] Comment on above: Performed By: #### C BCDF #### [address] [address] Calcium [Mass/Vol] 9.5 mg/dL Normal 8.6 - 10.3 [facility] Comment on above: Performed By: #### C BCDF #### [address] [address] Chloride [Moles/Vol] 105 mmol/L Normal 98 - 107 [facility] Comment on above: Performed By: #### C BCDF #### [address] [address] Creatinine [Mass/Vol] 0.77 mg/dL Normal 0.50 - 1.05 [facility] Comment on above: Performed By: #### C BCDF #### [address] [address] GFR/1.73 sq M.predicted among non-blacks MDRD (S/P/Bld) [Vol rate/Area] 83 mL/min/{1.73_m2} Normal >90 [facility] Comment on above: Result Comment: CALC ULATIONS OF ESTIMATED GFR ARE PERFORMED USING THE 2020 CKD-EPI STUDY REFIT EQUATION WITHOUT THE RACE VARIABLE FOR THE IDMS-TRACEABLE CREATININE METHODS. https://jasn.asnjournals.org/content//ASN.763430726 8 Performed By: #### C BCDF #### [address] [address] Glucose [Mass/Vol] 93 mg/dL Normal 74 - 99 [facility] Comment on above: Performed By: #### C BCDF #### [address] [address] HCO3 (Bld) [Moles/Vol] 32 mmol/L Normal 21 - 32 [facility] Comment on above: Performed By: #### C BCDF #### [address] [address] Potassium [Moles/Vol] 4.3 mmol/L Normal 3.5 - 5.3 [facility] Comment on above: Performed By: #### C BCDF #### [address] [address] Protein [Mass/Vol] 6.2 g/dL Low 6.4 - 8.2 [facility] Comment on above: Performed By: #### C BCDF #### [address] [address] Sodium [Moles/Vol] 140 mmol/L Normal 136 - 145 [facility] Comment on above: Performed By: #### C BCDF #### [address] [address] Urea nitrogen [Mass/Vol] 19 mg/dL Normal 6 - 23 [facility] Comment on above: Performed By: #### C BCDF #### [address] [address] Complete Blood Count + Diffe rentialon 04-15-2022 Basophils/100 WBC (Bld) 0.7 % 0.0 - 2.0 [facility] [employer] Work Phone: Erythrocyte distribution width (RBC) [Ratio] 15.6 % above high threshold See Below [facility] [employer] [facility] Phone: Comment on above: Reference Range: 11. 5 - 14.5 Hematocrit (Bld) [Volume fraction] 35.9 % below low threshold See Below [facility] Phone: Comment on above: Reference Range: 36. 0 - 46.0 Hemoglobin (Bld) [Mass/Vol] 11.0 g/dL below low threshold See Below [facility] Phone: Comment on above: Reference Range: 12. 0 - 16.0 Lymphocytes/100 WBC (Bld) 22.8 % See Below [facility] Phone: Comment on above: Reference Range: 13. 0 - 44.0 MCHC (RBC) [Mass/Vol] 30.6 g/dL below low threshold See Below [facility] Phone: Comment on above: Reference Range: 32. 0 - 36.0 MCV (RBC) [Entitic vol] 96 fL 80 - 100 [facility] Phone: Monocytes/100 WBC (Bld) 8.1 % 2.0 - 10.0 [facility] [employer] [facility] Phone: Neutrophils/100 WBC (Bld) 64.9 % See Below [facility] Phone: Comment on above: Reference Range: 40. 0 - 80.0 Platelets (Bld) [#/Vol] 312 10*3/uL 150 - 450 [facility] Phone: RBC (Bld) [#/Vol] 3.73 {x10E12/L} below low threshold See Below [facility] [facility] Phone: Comment on above: Reference Range: 4.0 0 - 5.20 WBC (Bld) [#/Vol] 5.7 10*3/uL 4.4 - 11.3 [facility] [employer] Phone: Complete Blood Count + Differential 0.04 {x10E9/L} See Below [facility] [employer] Phone: Comment on above: Reference Range: 0.0 0 - 0.10 Complete Blood Count + Differential 0.19 {x10E9/L} See Below [facility] [employer] Phone: Comment on above: Reference Range: 0.0 0 - 0.70 Complete Blood Count + Differential 0.46 {x10E9/L} See Below [facility] [employer] Phone: Comment on above: Reference Range: 0.1 0 - 1.00 Complete Blood Count + Differential 1.30 {x10E9/L} See Below [facility] [employer] Phone: Comment on above: Reference Range: 1.2 0 - 4.80 Complete Blood Count + Differential 3.71 {x10E9/L} See Below [facility] [employer] Phone: Comment on above: Reference Range: 1.2 0 - 7.70 Percent differential counts (%) should be interpreted in the context of the absolute cell counts (cells/L). Complete Blood Count + Differential 3.3 % 0.0 - 6.0 [facility] [employer] Phone: Complete Blood Count + Differential 0.2 % 0.0 - 0.9 [facility] [employer] Phone: Comment on above: Immature Granulocyte Count (IG) includes promyelocytes, myelocytes and metamyelocytes but does not include bands. Percent differential counts (%) should be interpreted in the context of the absolute cell counts (cells/L). Laboratory - Chemistry and C hemistry - challengeon 04-15-2022 Albumin BCP dye [Mass/Vol] 4.0 g/dL 3.4 - 5.0 [facility] [employer] Work Phone: ALP [Catalytic activity/Vol] 72 U/L 33 - 136 [facility] [employer] Work Phone: ALT With P-5'-P [Catalytic activity/Vol] 22 U/L 7 - 45 [facility] [employer] Work Phone: Comment on above: Patients treated wit h Sulfasalazine may generate falsely decreased results for ALT. Anion gap [Moles/Vol] 7 mmol/L below low threshold 10 - 20 [facility] [employer] Work Phone: AST With P-5'-P [Catalytic activity/Vol] 28 U/L 9 - 39 [facility] [employer] Work Phone: Bilirubin [Mass/Vol] 0.7 mg/dL 0.0 - 1.2 [facility] [employer] Work Phone: Calcium [Mass/Vol] 9.5 mg/dL 8.6 - 10.3 [facility] [employer] Work Phone: Chloride [Moles/Vol] 105 mmol/L 98 - 107 [facility] [employer] Work Phone: CO2 [Moles/Vol] 32 mmol/L 21 - 32 [facility] [employer] Work Phone: Creatinine [Mass/Vol] 0.77 mg/dL See Below [facility] [employer] Phone: Comment on above: Reference Range: 0.5 0 - 1.05 Glucose [Mass/Vol] 93 mg/dL 74 - 99 [facility] [employer] Work Phone: Potassium [Moles/Vol] 4.3 mmol/L 3.5 - 5.3 [facility] [employer] Work Phone: Protein [Mass/Vol] 6.2 g/dL below low threshold 6.4 - 8.2 [facility] [employer] Work Phone: Sodium [Moles/Vol] 140 mmol/L 136 - 145 [facility] [employer] Work Phone: Urea nitrogen [Mass/Vol] 19 mg/dL 6 - 23 [facility] Phone: No Panel Informationon 04-15 83 {mL/min/1.73m2} >90 [facility] Phone: Comment on above: CALCULATIONS OF TAYE MATED GFR ARE PERFORMED USING THE 2020 CKD-EPI STUDY REFIT EQUATION WITHOUT THE RACE VARIABLE FOR THE IDMS-TRACEABLE CREATININE METHODS.https://jasn.asnjournals.org/content/early//ASN.2 223398008 DIGITAL MAMM SCREENING W/ TO Membreno 03-08-2022 DIGITAL MAMM SCREENING W/ MARINA Patient Name: NARENDRA ARGUELLES STUDY: DIGITAL MAMM SCREENING W/ MARINA; 03/08/2022 11:17 am ACCESSION NUMBER(S): [id number] ORDERING CLINICIAN: JASMINE MATHIAS INDICATION: Screening. COMPARISON: 08/03/2019 10/24/2020 FINDINGS: 2D and tomosynthesis images were reviewed at 1 mm slice thickness. The breast tissue is almost entirely fatty. No suspicious masses or calcifications are identified. CAD was utilized. IMPRESSION: No mammographic evidence of malignancy. BI-RADS CATEGORY: Category: 1 - Negative. Recommendation: 1 Year Screening. For any future breast imaging appointments, please call [phone] ([phone]). Electronically signed by: KARTHIKEYAN BLOUNT MD [facility] Mamm - Screening Mammogram w / Tomosynthesison 03-08-2022 MG Breast Screening Normal [facility] Work Phone: Clinic Note - Intakeon 02-24 Clinic Note - Intake Patient Visit Information: Visit TypeFollow Up Visit, reclast Source of Informationpatient Admission Information: Admission Since Last VisitNo Vital Signs: Temp (degrees C)36.4 degrees C Temperatureskin Heart Rate (beats/min)94 beats per minute Respiration (breaths/min)16 breath per minute BP Systolic (mm Hg)Image has been removed. 164 mmHg BP Diastolic (mm Hg)Image has been removed. 98 mmHg BP Mean (mm Hg)Image has been removed. 120 mmHg Height in cm154.2 centimeter(s) Heightstanding Weight in kg76.9 kilogram(s) Weightstanding BMI (kg/m2)32.3 kg/M2 BSA (m2)1.81 M2 SpO2 (%)96 % SpO2 Patient Onroom air Pain Screening: Patient States Painno (0) Allergies: codeine: Drug, Other, Active Augmentin: Drug, Unknown, Active morphine: Drug, Unknown, Active Outpatient Medication Profile: * Patient Currently Takes Medications as of 26-Mar-2021 18:19 documented in Structured Notes albuterol 90 mcg/inh inhalation aerosol: 2 puff(s) inhaled 2 times a day as needed for cough, Start Date: 26-Mar-2021 dexamethasone 6 mg oral tablet: 1 tab(s) orally once a day , Start Date: 26-Mar-2021 lisinopril 5 mg oral tablet: 1 tab(s) orally once a day meloxicam 15 mg oral tablet: 1 tab(s) orally once a day atorvastatin 20 mg oral tablet: 1 tab(s) orally once a day gabapentin 300 mg oral capsule: orally 4 times a day traMADol 50 mg oral tablet: 1 tab(s) orally every 4 hours ALPRAZolam 0.25 mg oral tablet: 1 tab(s) orally 3 times a day methotrexate 2.5 mg oral tablet: Notification: NotificationsAll annual screens currently due. Travel History: COVID-19 Screening Completedno exposure or symptoms Travel or ExposureNO travel to International locations in the past 30 days Falls: Have you fallen in the last 6 monthsno Do you have a fear of fallingno Do you feel you need assistanceno Is the patient using an assistive deviceno Not a falls riskimplement environmental risk factors interventions Electronic Signatures: Lisseth Pa (COLEEN) (Signed 25-Feb-2022 08:36) Co-Signer: Vital Signs, Falls Isabella Austin (SETEBAN II) (Signed 24-Feb-2022 13:07) Authored: Patient Visit Information, Vital Signs, Allergies, Outpatient Medication Profile, Notification, Travel History, Falls Last Updated: 25-Feb-2022 08:36 by Lisseth Pa (COLEEN) Normal [facility] CALCIUM, IONIZEDon CALCIUM, IONIZED 1.21 mmol/L Normal 1.10 - 1.33 [facility] Comment on above: Performed By: #### T HYDS #### [address] [address] COMPREHENSIVE PANELon 2021 Bilirubin [Mass/Vol] 0.4 mg/dL Normal 0.0 - 1.2 [facility] Comment on above: Performed By: #### T HYDS #### [address] [address] Glucose [Mass/Vol] 95 mg/dL Normal 74 - 99 [facility] Comment on above: Performed By: #### T HYDS #### [address] [address] Urea nitrogen [Mass/Vol] 19 mg/dL Normal 6 - 23 [facility] Comment on above: Performed By: #### T HYDS #### [address] [address] Albumin [Mass/Vol] 3.9 g/dL Normal 3.4 - 5.0 [facility] Comment on above: Performed By: #### T HYDS #### [address] [address] ALP [Catalytic activity/Vol] 73 U/L Normal 33 - 136 [facility] Comment on above: Performed By: #### T HYDS #### [address] [address] ALT [Catalytic activity/Vol] 87 U/L High 7 - 45 [facility] Comment on above: Result Comment: Lori ents treated with Sulfasalazine may generate falsely decreased results for ALT. Performed By: #### T HYDS #### [address] [address] Anion gap [Moles/Vol] 9 mmol/L Low 10 - 20 [facility] Comment on above: Performed By: #### T HYDS #### [address] [address] AST [Catalytic activity/Vol] 31 U/L Normal 9 - 39 [facility] Comment on above: Performed By: #### T HYDS #### [address] [address] Calcium [Mass/Vol] 9.3 mg/dL Normal 8.6 - 10.3 [facility] Comment on above: Performed By: #### T HYDS #### [address] [address] Chloride [Moles/Vol] 103 mmol/L Normal 98 - 107 [facility] Comment on above: Performed By: #### T HYDS #### [address] [address] Creatinine [Mass/Vol] 0.80 mg/dL Normal 0.50 - 1.05 [facility] Comment on above: Performed By: #### T HYDS #### [address] [address] GFR/1.73 sq M.predicted among non-blacks MDRD (S/P/Bld) [Vol rate/Area] 79 mL/min/{1.73_m2} Normal >90 [facility] Comment on above: Result Comment: CALC ULATIONS OF ESTIMATED GFR ARE PERFORMED USING THE 2020 CKD-EPI STUDY REFIT EQUATION WITHOUT THE RACE VARIABLE FOR THE IDMS-TRACEABLE CREATININE METHODS. https://jasn.asnjournals.org/content//ASN.603501394 8 Performed By: #### T HYDS #### [address] [address] HCO3 (Bld) [Moles/Vol] 29 mmol/L Normal 21 - 32 [facility] Comment on above: Performed By: #### T HYDS #### [address] [address] Potassium [Moles/Vol] 4.3 mmol/L Normal 3.5 - 5.3 [facility] Comment on above: Performed By: #### T HYDS #### [facility] [address] [place] [address] Protein [Mass/Vol] 6.5 g/dL Normal 6.4 - 8.2 [facility] Comment on above: Performed By: #### T HYDS #### [address] [address] Sodium [Moles/Vol] 137 mmol/L Normal 136 - 145 [facility] Comment on above: Performed By: #### T HYDS #### [address] [address] Calcium, Ionized Levelon Calcium, Ionized Level 1.21 mmol/L See Below [facility] [employer] Work Phone: Comment on above: Reference Range: 1.1 0 - 1.33 Laboratory - Chemistry and C hemistry - challengeon 02-22-2022 Albumin BCP dye [Mass/Vol] 3.9 g/dL 3.4 - 5.0 [facility] [employer] Work Phone: ALP [Catalytic activity/Vol] 73 U/L 33 - 136 [facility] [employer] Work Phone: ALT With P-5'-P [Catalytic activity/Vol] 87 U/L above high threshold 7 - 45 [facility] [employer] Work Phone: Comment on above: Patients treated wit h Sulfasalazine may generate falsely decreased results for ALT. Anion gap [Moles/Vol] 9 mmol/L below low threshold 10 - 20 [facility] [employer] Work Phone: AST With P-5'-P [Catalytic activity/Vol] 31 U/L 9 - 39 [facility] [employer] Work Phone: Bilirubin [Mass/Vol] 0.4 mg/dL 0.0 - 1.2 [facility] [employer] Work Phone: Calcium [Mass/Vol] 9.3 mg/dL 8.6 - 10.3 [facility] [employer] Work Phone: Chloride [Moles/Vol] 103 mmol/L 98 - 107 [facility]: CO2 [Moles/Vol] 29 mmol/L 21 - 32 [facility] Work Phone: Creatinine [Mass/Vol] 0.80 mg/dL See Below [facility] Phone: Comment on above: Reference Range: 0.5 0 - 1.05 Glucose [Mass/Vol] 95 mg/dL 74 - 99 [facility] Work Phone: Potassium [Moles/Vol] 4.3 mmol/L 3.5 - 5.3 [facility] [employer] Phone: Protein [Mass/Vol] 6.5 g/dL 6.4 - 8.2 [facility] [employer] Phone: Sodium [Moles/Vol] 137 mmol/L 136 - 145 [facility] Work Phone: Urea nitrogen [Mass/Vol] 19 mg/dL 6 - 23 [facility] Phone: No Panel Informationon 02-22 79 {mL/min/1.73m2} >90 [facility] Phone: Comment on above: CALCULATIONS OF TAYE MATED GFR ARE PERFORMED USING THE 2020 CKD-EPI STUDY REFIT EQUATION WITHOUT THE RACE VARIABLE FOR THE IDMS-TRACEABLE CREATININE METHODS.https://jasn.asnjournals.org/content///ASN.2 491727326 Office Visiton 02-01-2022 Follow-up visit Diagnoses/Problems Edema (782.3) (R60.9) HTN (hypertension) (401.9) (I10) GERD (gastroesophageal reflux disease) (530.81) (K21.9) Osteoporosis (733.00) (M81.0) Primary generalized (osteo)arthritis (715.09) (M15.0) Rheumatoid arthritis (714.0) (M06.9) Rheumatoid arthritis Hypercholesteremia (272.0) (E78.00) Orders Edema Start: Furosemide 20 MG Oral Tablet; TAKE 1 TABLET BY MOUTH EVERY DAY NEEDED FOR SWELLING Provider Impressions Continue current medications, will add some lasix prn, also discussed wearing support stockings. F/u with specialists as scheduled. F/u in Apr as scheduled, sooner if needed. Chief Complaint 3 mo f/u, results review, wants to restart water pill, BLE History of Present IllnessHere for f/u HTN, high chol, GERD (Dr Moncada), osteoporosis, anxiety, chronic pain (Dr Alcantar), rheumatoid arthritis (Dr Chisholm), precancerous lesions on legs ([facility]) - all stable. She states that overall she is doing pretty well. She states that she had some elevated BP readings at other offices. She is starting to have some leg swelling again as well. She would like to try some lasix again. She uses xanax prn for her anxiety and tramadol rarely for pain, has been on both for a long time, they work well, risks/benefits/alternatives have been discussed and considered. OARRS reviewed and is appropriate. Review of Systems Constitutional: Negative except as documented in history of present illness. Respiratory: Negative except as documented in history of present illness. Cardiovascular: Negative except as documented in history of present illness. Active Problems Anxiety (300.00) (F41.9) Chronic pain (338.29) (G89.29) Class 1 obesity with body mass index (BMI) of 31.0 to 31.9 in adult (278.00,V85.31) (E66.9,Z68.31) Degenerative disk disease (722.6) Encounter for immunization (V03.89) (Z23) Encounter for Medicare annual wellness exam (V70.0) (Z00.00) GERD (gastroesophageal reflux disease) (530.81) (K21.9) History of anemia (V12.3) (Z86.2) HTN (hypertension) (401.9) (I10) Hypercholesteremia (272.0) (E78.00) Knee pain (719.46) (M25.569) Left hip pain (719.45) (M25.552) Lumbosacral radiculopathy (724.4) (M54.17) Lumbosacral spondylosis (721.3) (M47.817) Neurogenic claudication due to lumbar spinal stenosis (724.03) (M48.062) 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) Osteoporosis (733.00) (M81.0) Primary generalized (osteo)arthritis (715.09) (M15.0) Rheumatoid arthritis (714.0) (M06.9) Rheumatoid arthritis Sciatica (724.3) (M54.30) Visit for screening mammogram (V76.12) (Z12.31) Past Medical History History of Hip pain, acute (719.45) (M25.559) Resolved Date: 05 Nov 2020 History of anemia (V12.3) (Z86.2) Resolved Date: 07 May 2020 History of Osteoporosis screening (V82.81) (Z13.820) Dexa 06/28/17 History of Screen for colon cancer (V76.51) (Z12.11) colooscopy 01/28/15 History of Screening for breast cancer (V76.10) (Z12.39) mammo 06/29/18 Surgical History History of Appendectomy History of Back surgery History of Epidural steroid injection Managed By: Nirav Alcantar (Pain Medicine) Lt L5+S1 TFESI History of Epidural steroid injection Managed By: Nirav Alcantar (Pain Medicine) Caudal HERMELINDA History of Esophagogastroduodenoscopy History of Foot surgery History of Hernia repair History of Hip replacement RIGHT HIP 2010 History of Knee surgery History of Rosalva fundoplication laparoscopic History of Pelvic surgery CEMENT History of Rectocele repair History of Salpingo-oophorectomy bilateral History of Tonsillectomy History of Total hysterectomy abdominal History of Tubal ligation Social History Coffee Does not use illicit drugs (V49.89) (Z78.9) Never smoker Occasional alcohol use Patient has living will (V49.89) (Z78.9) Allergies Augmentin Recorded By: Ekta Hall; 01/23/2019 4:20:53 PM codeine Recorded By: Ekta Hall; 01/23/2019 4:20:53 PM morphine Recorded By: Ekta Hall; 01/23/2019 4:20:53 PM Current Meds Medication NameInstruction ALPRAZolam 0.25 MG Oral TabletTAKE 1 TABLET Twice daily PRN Atorvastatin Calcium 20 MG Oral Tablettake 1 tablet by mouth once daily Disability PlacardDuration 5 years Euflexxa 20 MG/2ML Intra-articular Solution Prefilled SyringeINJECT 1 UNIT Intra-articular Euflexxa 20 MG/2ML Intra-articular Solution Prefilled SyringeINJECT 2 ML Other intraarticularly Euflexxa 20 MG/2ML Intra-articular Solution Prefilled SyringeINJECT 2 ML Other intraarticularly Ferrous Sulfate 325 (65 Fe) MG Oral Tablet Delayed ReleaseTAKE 1 TABLET DAILY. Folic Acid 1 MG Oral Tabletas directed by Dr Chisholm Gabapentin 300 MG Oral CapsuleTAKE 2 CAPSULES AT BEDTIME Lisinopril 5 MG Oral TabletTAKE 1 TABLET BY MOUTH DAILY Meloxicam 15 MG Oral TabletTAKE 1 TABLET EVERY DAY Methotrexate 2.5 MG Oral Tabletas directed by Dr Chisholm Nortriptyline HCl - 25 MG Oral CapsuleTAKE 2 CAPSULES ONE TIME DAILY AT BED (more content not included)... Normal [employer] Tobacco Screening.on 022 Fall risk assessment a) No falls within the last year -[place] Phone: Tobacco use status [facility] b) No -[place] [employer] Phone: BONE DENSITY, DEXA 1 OR MORE SITES: AXIAL SKELETONon 01-26-2022 BONE DENSITY, DEXA 1 OR MORE SITES: AXIAL SKELETON Patient Name: NARENDRA ARGUELLES STUDY: BONE DENSITY, DEXA 1 OR MORE SITES: AXIAL TSMWIGX39/1/2022 9:30 am INDICATION: osteoporosis M81.0: OsteoporosisThe patient is a 71 year old female for a screening bone Densitometry (DEXA). COMPARISON: 08/03/2019. ACCESSION NUMBER(S): [id number] ORDERING CLINICIAN: JASMINE MATHIAS TECHNIQUE: Bone Densitometry (DEXA) of the left hip and forearm performed. FINDINGS: Name: NARENDRA ARGUELLES Date:1950 Height:154.9 Gender:F Exam Date:01/26/2022 Weight:78 Indications:osteoporosis M81.0: Osteoporosis Fractures:Prior hip or vertebral fracture Treatments:Prolia LEFT FEMUR -TOTAL Bone Mineral Density: 0.702 g/cm2 T-Score -2.0 Z-Score -0.5 LEFT FEMUR -NECK Bone Mineral Density: 0.540 g/cm2 T-Score -2.8 Z-Score -1.0 LEFT FOREARM Bone Mineral Density: 0.558 g/cm2 T-Score -2.2 Z-Score 0.0 World Health Organization (WHO) criteria for post-menopausal, Women: Normal: T-score at or above -1 SD Osteopenia: T-score between -1 and -2.5 SD Osteoporosis: T-score at or below -2.5 SD 10-Year Fracture Risk: FRAX Not reported because: Some T-score for Spine Total or Hip Total or Femoral Neck at or below -2.5 IMPRESSION: According to World Health Organization criteria, classification is osteoporosis. Followup recommended in one year or sooner as clinically warranted. Electronically signed by: EZEQUIEL ERICKSON MD Normal [facility] Xray Bone Density, Dexa 1 or More Siteson 01-26-2022 DXA Bone [Mass/Area] Bone density Normal -[facility] Phone: Established Visit (Orthopaed ic Surgery)on 01-19-2022 Established Visit (Orthopaedic Surgery) Diagnoses/Problems Assessed Primary generalized (osteo)arthritis (715.09) (M15.0) Orders Primary generalized (osteo)arthritis Administer: Euflexxa 20 MG/2ML Intra-articular Solution Prefilled Syringe; INJECT 2 ML Other intraarticularly; To Be Done: 20Jan2022 Patient Discussion/Summary By signing my name below, I, Marlo Potts, attest that this documentation has been prepared under the direction and in the presence of Dr. Corby Jacobs. All medical record entries made by the Marlo were at my direction and personally dictated by me. I have reviewed the chart and agree that the record accurately reflects my personal performance of the history, physical exam, discussion and plan. Provider Impressions Assessment- right knee pain Plan- We did administer the third in a series of viscosupplementation injections today. Patient tolerated the injection well and without complication. We did discuss risks, signs/symptoms to look out for and any complications. I encouraged the patient to call with any questions or concerns. Otherwise, I would like to see the patient again on an as-needed basis if she would like to request repeat injections. Office will plan to follow up with the patient in 1 month to see how she is doing. This note has been created with voice recognition software. Please be aware that there may be grammatical or contextual errors due to the use of the software. Chief Complaint Euflexxa injection series #3 right knee. History of Present Illness Patient is a pleasant 71-year-old female presenting today for the third in a series of viscosupplementation (Euflexxa) injections for the right knee. She reports she has tolerated the previous injections well and has appreciated some improvement. She does continue to have intermittent instability and difficulty with steps, otherwise she is without complaint. She elects to pursue the third and final injection of the series today. Review of Systems Constitutional: no fever, no chills, not feeling tired, no recent weight gain and no recent weight loss. ENT: no nosebleeds. Cardiovascular: no chest pain. Respiratory: no shortness of breath and no cough. Gastrointestinal: no abdominal pain, no nausea, no vomiting and no diarrhea. Musculoskeletal: no arthralgias and as noted in HPI. Integumentary: no rashes and no skin wound. Neurological: no headache. Psychiatric: no depression and no sleep disturbances. Endocrine: no muscle weakness and no muscle cramps. Hematologic/Lymphatic: swollen glands, but no tendency for easy bruising. Active Problems Problems Acute sinusitis, recurrence not specified, unspecified location (461.9) (J01.90) Anxiety (300.00) (F41.9) Chronic pain (338.29) (G89.29) Class 1 obesity with body mass index (BMI) of 31.0 to 31.9 in adult (278.00,V85.31) (E66.9,Z68.31) Degenerative disk disease (722.6) Encounter for immunization (V03.89) (Z23) Encounter for Medicare annual wellness exam (V70.0) (Z00.00) GERD (gastroesophageal reflux disease) (530.81) (K21.9) History of anemia (V12.3) (Z86.2) HTN (hypertension) (401.9) (I10) Hypercholesteremia (272.0) (E78.00) Knee pain (719.46) (M25.569) Left hip pain (719.45) (M25.552) Lumbosacral radiculopathy (724.4) (M54.17) Lumbosacral spondylosis (721.3) (M47.817) Neurogenic claudication due to lumbar spinal stenosis (724.03) (M48.062) 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) Osteoporosis (733.00) (M81.0) Primary generalized (osteo)arthritis (715.09) (M15.0) Rheumatoid arthritis (714.0) (M06.9) Rheumatoid arthritis Sciatica (724.3) (M54.30) Visit for screening mammogram (V76.12) (Z12.31) Past Medical History Problems History of Hip pain, acute (719.45) (M25.559) Resolved Date: 05 Nov 2020 History of anemia (V12.3) (Z86.2) Resolved Date: 07 May 2020 History of Osteoporosis screening (V82.81) (Z13.820) Dexa 06/28/17 History of Screen for colon cancer (V76.51) (Z12.11) colooscopy 01/28/15 History of Screening for breast cancer (V76.10) (Z12.39) mammo 06/29/18 Surgical History Problems History of Appendectomy History of Back surgery History of Epidural steroid injection Managed By: Nirav Alcantar (Pain Medicine) Lt L5+S1 TFESI History of Epidural steroid injection Managed By: Nirav Alcantar (Pain Medicine) Caudal HERMELINDA History of Esophagogastroduodenoscopy History of Foot surgery History of Hernia repair History of Hip replacement RIGHT HIP 2010 History of Knee surgery History of Rosalva fundoplication laparoscopic History of Pelvic surgery CEMENT History of Rectocele repair History of Salpingo-oophorectomy bilateral History of Tonsillectomy History of Total hysterectomy abdominal History of Tubal ligation Family History Mother Family history of diabetes mellitus (V18.0) (Z83.3) Family history of heart failure (V17.49) (Z82.49) Family history of hypertension (V17.49) (Z82.49) Father Family history of heart failure (V17.4 (more content not included)... Normal [facility] CT ABDOMEN WITH CONTRASTon [address] ABDOMEN WITH CONTRAST EXAMINATION: CT ABDOMEN WITH CONTRAST HISTORY: ORDERING SYSTEM PROVIDED HISTORY: Evaluate for possible recurrent hiatal hernia, TECHNOLOGIST PROVIDED HISTORY: Illness/Other Reason for exam: Evaluate for possible recurrent hiatal hernia, upper abd pain,Status post laparoscopic Rosalva fundoplication Encounter Type: Initial Additional signs and symptoms: . ORDERING SYSTEM PROVIDED DIAGNOSIS CODES: Z98.890 Status post laparoscopic Rosalva fundoplication R13.19 Esophageal dysphagia COMPARISON: Outside hospital 08/08/2017. 12/07/[address]21 [address] TECHNIQUE: CT abdomen after administration of IV and oral contrast. Dose reduction techniques were achieved by using automated exposure control and/or adjustment of mA and/or kV according to patient size and/or use of iterative reconstruction technique. CONTRAST: IOPAMIDOL 76 % ORAL - 18 mL, IOPAMIDOL 370 MG IODINE/ML (76 %) INTRAVENOUS SOLUTION - 75 mL, FINDINGS: Lower chest: Lung bases are clear. Heart is normal in size. Postoperative changes of Rosalva fundoplication with [id number] recurrent hiatal hernia. Liver: Normal. Bile ducts: Mild intra and extrahepatic biliary ductal dilatation. No obstructing calculus. Findings likely relate to prior cholecystectomy. Gallbladder: Prior cholecystectomy. Pancreas: Normal. Spleen: Scattered calcified granulomata. Otherwise, unremarkable. Adrenals: Normal. Kidneys: Symmetric enhancement without hydronephrosis. Left lower pole low-density lesion measuring approximately 1.0 x 1.1 cm in the coronal plane. Similar when compared to outside hospital 08/08/2017 CT. Findings likely represent a cyst. Bowel: No bowel obstruction. Cecum, sigmoid and rectum are not included in the imaging field of view. Moderate diffuse colonic stool burden Peritoneum: No free intraperitoneal air. No ascites or fluid collection. Vessels: 1. Lymph nodes: No enlarged lymph nodes. Abdominal wall: Normal. Osseous structures: Partial visualization of lower lumbar spine fixation hardware. Cqxqccjm-[id number]-kvewtz multilevel spondylosis. IMPRESSION: Prior Rosalva fundoplication with [id number] recurrent hiatal hernia. No associated obstruction. Probable left renal cyst. Recommend ultrasound follow-up. ST/lab Workstation ID: [id number] Dictated by: NONA CORRIGAN on TueJan 15, 2022 7:01:40 AM EDT Transcribed by: AMBIKA YOUNG on TueJan 15, 2022 7:05:07 AM EDT Finalized by: NONA CORRIGAN on TueJan 15, 2022 7:18:07 AM EDT [facility] Comment on above: Order Comment: Injur y/Trauma or Illness?:Illness/Other How long have you had these symptoms (acute/chronic)?:Acute Reason for exam?:Evaluate for possible recurrent hiatal hernia, upper abd pain,Status post laparoscopic Rosalva fundoplication Type of Exam?:Initial Additional signs and symptoms?:. Established Visit (Orthopaed ic Surgery)on 01-12-2022 Established Visit (Orthopaedic Surgery) Diagnoses/Problems Assessed Primary generalized (osteo)arthritis (715.09) (M15.0) Orders Primary generalized (osteo)arthritis Administer: Euflexxa 20 MG/2ML Intra-articular Solution Prefilled Syringe; INJECT 2 ML Other intraarticularly; To Be Done: 13Jan2022 Patient Discussion/Summary By signing my name below, I, Marlo Potts, attest that this documentation has been prepared under the direction and in the presence of Dr. Corby Jacobs. All medical record entries made by the Yassineibe were at my direction and personally dictated by me. I have reviewed the chart and agree that the record accurately reflects my personal performance of the history, physical exam, discussion and plan. Provider Impressions Assessment- right knee pain Plan- We did administer the second in a series of viscosupplementation injections today. Patient tolerated the injection well and without complication. We did discuss risks, signs/symptoms to look out for and any complications. I will plan to see her back next week for the third and last injection in the series. This note has been created with voice recognition software. Please be aware that there may be grammatical or contextual errors due to the use of the software. Chief Complaint Euflexxa injection right knee series #2. History of Present Illness Patient is a pleasant 71-year-old female presenting today for the second injection in a series of viscosupplementation (Euflexxa) injection for the right knee. She reports to have had a small amount of noticeable improvement over the past week, but she does continue to be symptomatic and attributes some of her discomfort to the recent changes of weather. She elects to pursue the second injection today. Review of Systems Constitutional: no fever, no chills, not feeling tired, no recent weight gain and no recent weight loss. ENT: no nosebleeds. Cardiovascular: no chest pain. Respiratory: no shortness of breath and no cough. Gastrointestinal: no abdominal pain, no nausea, no vomiting and no diarrhea. Musculoskeletal: no arthralgias and as noted in HPI. Integumentary: no rashes and no skin wound. Neurological: no headache. Psychiatric: no depression and no sleep disturbances. Endocrine: no muscle weakness and no muscle cramps. Hematologic/Lymphatic: swollen glands, but no tendency for easy bruising. Active Problems Problems Acute sinusitis, recurrence not specified, unspecified location (461.9) (J01.90) Anxiety (300.00) (F41.9) Chronic pain (338.29) (G89.29) Class 1 obesity with body mass index (BMI) of 31.0 to 31.9 in adult (278.00,V85.31) (E66.9,Z68.31) Degenerative disk disease (722.6) Encounter for immunization (V03.89) (Z23) Encounter for Medicare annual wellness exam (V70.0) (Z00.00) GERD (gastroesophageal reflux disease) (530.81) (K21.9) History of anemia (V12.3) (Z86.2) HTN (hypertension) (401.9) (I10) Hypercholesteremia (272.0) (E78.00) Knee pain (719.46) (M25.569) Left hip pain (719.45) (M25.552) Lumbosacral radiculopathy (724.4) (M54.17) Lumbosacral spondylosis (721.3) (M47.817) Neurogenic claudication due to lumbar spinal stenosis (724.03) (M48.062) 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) Osteoporosis (733.00) (M81.0) Primary generalized (osteo)arthritis (715.09) (M15.0) Rheumatoid arthritis (714.0) (M06.9) Rheumatoid arthritis Sciatica (724.3) (M54.30) Visit for screening mammogram (V76.12) (Z12.31) Past Medical History Problems History of Hip pain, acute (719.45) (M25.559) Resolved Date: 05 Nov 2020 History of anemia (V12.3) (Z86.2) Resolved Date: 07 May 2020 History of Osteoporosis screening (V82.81) (Z13.820) Dexa 06/28/17 History of Screen for colon cancer (V76.51) (Z12.11) colooscopy 01/28/15 History of Screening for breast cancer (V76.10) (Z12.39) mammo 06/29/18 Surgical History Problems History of Appendectomy History of Back surgery History of Epidural steroid injection Managed By: Nirav Alcantar (Pain Medicine) Caudal HERMELINDA History of Epidural steroid injection Managed By: Nirav Alcantar (Pain Medicine) Lt L5+S1 TFESI History of Esophagogastroduodenoscopy History of Foot surgery History of Hernia repair History of Hip replacement RIGHT HIP 2010 History of Knee surgery History of Rosalva fundoplication laparoscopic History of Pelvic surgery CEMENT History of Rectocele repair History of Salpingo-oophorectomy bilateral History of Tonsillectomy History of Total hysterectomy abdominal History of Tubal ligation Family History Mother Family history of diabetes mellitus (V18.0) (Z83.3) Family history of heart failure (V17.49) (Z82.49) Family history of hypertension (V17.49) (Z82.49) Father Family history of heart failure (V17.49) (Z82.49) Sister Family history of heart failure (V17.49) (Z82.49) Brother Family history of heart failure (V17.49) (Z82.49) Family history of hypertension (V17.49) (Z82.49) Grandparent Famil (more content not included)... Normal [facility] C TELOPEPTIDE, BETA CROSS ROB Michelle 01-05-2022 C TELOPEPTIDE, BETA CROSS LINKED 412 pg/mL Normal [facility] Comment on above: Result Comment: Xiang enopausal Females: 136-689 pg/mL Postmenopausal Females: 177-1015 pg/mL REFERENCE INTERVAL: C-Telopeptide, Nvpn-Lvxww-Zpuqpi, Serum Access complete set of age- and/or gender-specific reference intervals for this test in the Business e via [place] Laboratory Test Directory ([employer]). Performed By: [facility] [address] [place] [id number] Urgent Care Nurse Practitioner: Dejan Rios MD, PhD Performed By: #### T HYDS #### [address] [address] CBC AND DIFFERENTIALon 01-05 Basophils (Bld) [#/Vol] 0.00 10*3/uL Normal 0.00 - 0.10 [facility] Comment on above: Performed By: #### T HYDS #### [address] [address] Basophils/100 WBC (Bld) 1.0 % Normal 0.0 - 2.0 [facility] Comment on above: Performed By: #### T HYDS #### [address] [address] Eosinophils (Bld) [#/Vol] 0.30 10*3/uL Normal 0.00 - 0.70 [facility] Comment on above: Performed By: #### T HYDS #### [address] [address] Eosinophils/100 WBC (Bld) 6.4 % Normal 0.0 - 6.0 [facility] Comment on above: Performed By: #### T HYDS #### [address] [address] Erythrocyte distribution width (RBC) [Ratio] 16.2 % High 11.5 - 14.5 [facility] Comment on above: Performed By: #### T HYDS #### [address] [address] Hematocrit (Bld) [Volume fraction] 32.2 % Low 36.0 - 46.0 [facility] Comment on above: Performed By: #### T HYDS #### [address] [address] Hemoglobin (Bld) [Mass/Vol] 10.5 g/dL Low 12.0 - 16.0 [facility] Comment on above: Performed By: #### T HYDS #### [address] [address] Lymphocytes (Bld) [#/Vol] 1.20 10*3/uL Normal 1.20 - 4.80 [facility] Comment on above: Performed By: #### T HYDS #### [address] [address] Lymphocytes/100 WBC (Bld) 25.5 % Normal 13.0 - 44.0 [facility] Comment on above: Performed By: #### T HYDS #### [address] [address] MCHC (RBC) [Mass/Vol] 32.4 g/dL Normal 32.0 - 36.0 [facility] Comment on above: Performed By: #### T HYDS #### [address] [address] MCV (RBC) [Entitic vol] 93 fL Normal 80 - 100 [facility] Comment on above: Performed By: #### T HYDS #### [address] [address] Monocytes (Bld) [#/Vol] 0.40 10*3/uL Normal 0.10 - 1.00 [facility] Comment on above: Performed By: #### T HYDS #### [address] [address] Monocytes/100 WBC (Bld) 9.2 % Normal 2.0 - 10.0 [facility] Comment on above: Performed By: #### T HYDS #### [address] [address] Neutrophils (Bld) [#/Vol] 2.70 10*3/uL Normal 1.20 - 7.70 [facility] Comment on above: Result Comment: Perc ent differential counts (%) should be interpreted in the context of the absolute cell counts (cells/L). Performed By: #### T HYDS #### [address] [address] Neutrophils/100 WBC (Bld) 57.9 % Normal 40.0 - 80.0 [facility] Comment on above: Performed By: #### T HYDS #### [address] [address] NUCLEATED RBC 0.1 /100 WBC Normal [facility] Comment on above: Performed By: #### T HYDS #### [address] [address] Platelets (Bld) [#/Vol] 275 10*3/uL Normal 150 - 450 [facility] Comment on above: Performed By: #### T HYDS #### [address] [address] RBC 3.46 x10E12/L Low 4.00 - 5.20 [facility] Comment on above: Performed By: #### T HYDS #### [address] [address] WBC (Bld) [#/Vol] 4.7 10*3/uL Normal 4.4 - 11.3 [facility] Comment on above: Performed By: #### T HYDS #### [address] [address] COMPREHENSIVE PANELon 2021 Albumin [Mass/Vol] 3.8 g/dL Normal 3.4 - 5.0 [facility] Comment on above: Performed By: #### C BCDF #### [address] [address] ALP [Catalytic activity/Vol] 65 U/L Normal 33 - 136 [facility] Comment on above: Performed By: #### C BCDF #### [address] [address] ALT [Catalytic activity/Vol] 21 U/L Normal 7 - 45 [facility] Comment on above: Result Comment: Lori ents treated with Sulfasalazine may generate falsely decreased results for ALT. Performed By: #### C BCDF #### [address] [address] Anion gap [Moles/Vol] 9 mmol/L Low 10 - 20 [facility] Comment on above: Performed By: #### C BCDF #### [address] [address] AST [Catalytic activity/Vol] 24 U/L Normal 9 - 39 [facility] Comment on above: Performed By: #### C BCDF #### [address] [address] Bilirubin [Mass/Vol] 0.6 mg/dL Normal 0.0 - 1.2 [facility] Comment on above: Performed By: #### C BCDF #### [address] [address] Calcium [Mass/Vol] 9.1 mg/dL Normal 8.6 - 10.3 [facility] Comment on above: Performed By: #### C BCDF #### [address] [address] Chloride [Moles/Vol] 105 mmol/L Normal 98 - 107 [facility] Comment on above: Performed By: #### C BCDF #### [address] [address] Creatinine [Mass/Vol] 0.84 mg/dL Normal 0.50 - 1.05 [facility] Comment on above: Performed By: #### C BCDF #### [address] [address] GFR/1.73 sq M.predicted among non-blacks MDRD (S/P/Bld) [Vol rate/Area] 75 mL/min/{1.73_m2} Normal >90 [facility] Comment on above: Result Comment: CALC ULATIONS OF ESTIMATED GFR ARE PERFORMED USING THE 2020 CKD-EPI STUDY REFIT EQUATION WITHOUT THE RACE VARIABLE FOR THE IDMS-TRACEABLE CREATININE METHODS. https://jasn.asnjournals.org/content/early/ASN.492980957 8 Performed By: #### C BCDF #### [address] [address] Glucose [Mass/Vol] 88 mg/dL Normal 74 - 99 [facility] Comment on above: Performed By: #### C BCDF #### [address] [address] HCO3 (Bld) [Moles/Vol] 30 mmol/L Normal 21 - 32 [facility] Comment on above: Performed By: #### C BCDF #### [address] [address] Potassium [Moles/Vol] 4.4 mmol/L Normal 3.5 - 5.3 [facility] Comment on above: Performed By: #### C BCDF #### [address] [address] Protein [Mass/Vol] 5.4 g/dL Low 6.4 - 8.2 [facility] Comment on above: Performed By: #### C BCDF #### [address] [address] Sodium [Moles/Vol] 140 mmol/L Normal 136 - 145 [facility] Comment on above: Performed By: #### C BCDF #### [address] [address] Urea nitrogen [Mass/Vol] 22 mg/dL Normal 6 - 23 [facility] Comment on above: Performed By: #### C BCDF #### [address] [address] Complete Blood Count + Diffe erich 01-05-2022 Basophils/100 WBC (Bld) 1.0 % 0.0 - 2.0 [facility] 300 Work Phone: [phone] Erythrocyte distribution width (RBC) [Ratio] 16.2 % above high threshold See Below [facility] 300 Work Phone: [phone] Comment on above: Reference Range: 11. 5 - 14.5 Hematocrit (Bld) [Volume fraction] 32.2 % below low threshold See Below [facility] 300 Work Phone: [phone] Comment on above: Reference Range: 36. 0 - 46.0 Hemoglobin (Bld) [Mass/Vol] 10.5 g/dL below low threshold See Below [facility] 300 Work Phone: [phone] Comment on above: Reference Range: 12. 0 - 16.0 Lymphocytes/100 WBC (Bld) 25.5 % See Below [facility] 300 Work Phone: [phone] Comment on above: Reference Range: 13. 0 - 44.0 MCHC (RBC) [Mass/Vol] 32.4 g/dL See Below [facility] 300 Work Phone: [phone] Comment on above: Reference Range: 32. 0 - 36.0 MCV (RBC) [Entitic vol] 93 fL 80 - [address] [facility] 300 Work Phone: [phone] Monocytes/100 WBC (Bld) 9.2 % 2.0 - 10.0 [facility] 300 Work Phone: [phone] Neutrophils/100 WBC (Bld) 57.9 % See Below [facility] 300 Work Phone: [phone] Comment on above: Reference Range: 40. 0 - 80.0 Platelets (Bld) [#/Vol] 275 10*3/uL 150 - [address] [facility] 300 Work Phone: [phone] RBC (Bld) [#/Vol] 3.46 {x10E12/L} below low threshold See Below [facility] 300 Work Phone: [phone] Comment on above: Reference Range: 4.0 0 - 5.20 WBC (Bld) [#/Vol] 4.7 10*3/uL 4.4 - 11.3 [facility] 300 Work Phone: [phone] Complete Blood Count + Differential 0.00 {x10E9/L} See Below [facility] 300 Work Phone: [phone] Comment on above: Reference Range: 0.0 0 - 0.10 Complete Blood Count + Differential 0.30 {x10E9/L} See Below [facility] 300 Work Phone: [phone] Comment on above: Reference Range: 0.0 0 - 0.70 Complete Blood Count + Differential 0.40 {x10E9/L} See Below [facility] 300 Work Phone: [phone] Comment on above: Reference Range: 0.1 0 - 1.00 Complete Blood Count + Differential 1.20 {x10E9/L} See Below [facility] 300 Work Phone: [phone] Comment on above: Reference Range: 1.2 0 - 4.80 Complete Blood Count + Differential 2.70 {x10E9/L} See Below [facility] 300 Work Phone: [phone] Comment on above: Reference Range: 1.2 0 - 7.70 Percent differential counts (%) should be interpreted in the context of the absolute cell counts (cells/L). Complete Blood Count + Differential 6.4 % 0.0 - 6.0 [facility] 300 Work Phone: [phone] Complete Blood Count + Differential 0.1 {/100_WBC} [facility] 300 Work Phone: [phone] Established Visit (Orthopaed ic Surgery)on 01-05-2022 Established Visit (Orthopaedic Surgery) Diagnoses/Problems Assessed Primary generalized (osteo)arthritis (715.09) (M15.0) Orders Primary generalized (osteo)arthritis Administer: Euflexxa 20 MG/2ML Intra-articular Solution Prefilled Syringe; INJECT 1 UNIT Intra-articular; To Be Done: 05Jan2022 Patient Discussion/Summary By signing my name below, I, Marlo Potts, attest that this documentation has been prepared under the direction and in the presence of Dr. Corby Jacobs. All medical record entries made by the Yassineibtorrie were at my direction and personally dictated by me. I have reviewed the chart and agree that the record accurately reflects my personal performance of the history, physical exam, discussion and plan. Provider Impressions Assessment- right knee pain Plan- We did administer the first in a series of viscosupplementation injections today. Patient tolerated the injection well and without complication. We did discuss risks, signs/symptoms to look out for and any complications. I will plan to see her back next week for the second in the series. This note has been created with voice recognition software. Please be aware that there may be grammatical or contextual errors due to the use of the software. Chief Complaint Euflexxa injection series #1 for the right knee. History of Present Illness Patient is a pleasant 71-year-old female presenting today for the first in the series of viscosupplementation (Euflexxa) injections for the right knee. Patient continues to be quite symptomatic with pain of the right knee and is agreeable to proceed with the injection today. Review of Systems Constitutional: no fever, no chills, not feeling tired, no recent weight gain and no recent weight loss. ENT: no nosebleeds. Cardiovascular: no chest pain. Respiratory: no shortness of breath and no cough. Gastrointestinal: no abdominal pain, no nausea, no vomiting and no diarrhea. Musculoskeletal: no arthralgias and as noted in HPI. Integumentary: no rashes and no skin wound. Neurological: no headache. Psychiatric: no depression and no sleep disturbances. Endocrine: no muscle weakness and no muscle cramps. Hematologic/Lymphatic: swollen glands, but no tendency for easy bruising. Active Problems Problems Acute sinusitis, recurrence not specified, unspecified location (461.9) (J01.90) Anxiety (300.00) (F41.9) Chronic pain (338.29) (G89.29) Class 1 obesity with body mass index (BMI) of 31.0 to 31.9 in adult (278.00,V85.31) (E66.9,Z68.31) Degenerative disk disease (722.6) Encounter for immunization (V03.89) (Z23) Encounter for Medicare annual wellness exam (V70.0) (Z00.00) GERD (gastroesophageal reflux disease) (530.81) (K21.9) History of anemia (V12.3) (Z86.2) HTN (hypertension) (401.9) (I10) Hypercholesteremia (272.0) (E78.00) Knee pain (719.46) (M25.569) Left hip pain (719.45) (M25.552) Lumbosacral radiculopathy (724.4) (M54.17) Lumbosacral spondylosis (721.3) (M47.817) Neurogenic claudication due to lumbar spinal stenosis (724.03) (M48.062) 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) Osteoporosis (733.00) (M81.0) Primary generalized (osteo)arthritis (715.09) (M15.0) Rheumatoid arthritis (714.0) (M06.9) Rheumatoid arthritis Sciatica (724.3) (M54.30) Visit for screening mammogram (V76.12) (Z12.31) Past Medical History Problems History of Hip pain, acute (719.45) (M25.559) Resolved Date: 05 Nov 2020 History of anemia (V12.3) (Z86.2) Resolved Date: 07 May 2020 History of Osteoporosis screening (V82.81) (Z13.820) Dexa 06/28/17 History of Screen for colon cancer (V76.51) (Z12.11) colooscopy 01/28/15 History of Screening for breast cancer (V76.10) (Z12.39) mammo 06/29/18 Surgical History Problems History of Appendectomy History of Back surgery History of Epidural steroid injection Managed By: Nirav Alcantar (Pain Medicine) Lt L5+S1 TFESI History of Epidural steroid injection Managed By: Nirav Alcantar (Pain Medicine) Caudal HERMELINDA History of Esophagogastroduodenoscopy History of Foot surgery History of Hernia repair History of Hip replacement RIGHT HIP 2010 History of Knee surgery History of Rosalva fundoplication laparoscopic History of Pelvic surgery CEMENT History of Rectocele repair History of Salpingo-oophorectomy bilateral History of Tonsillectomy History of Total hysterectomy abdominal History of Tubal ligation Family History Mother Family history of diabetes mellitus (V18.0) (Z83.3) Family history of heart failure (V17.49) (Z82.49) Family history of hypertension (V17.49) (Z82.49) Father Family history of heart failure (V17.49) (Z82.49) Sister Family history of heart failure (V17.49) (Z82.49) Brother Family history of heart failure (V17.49) (Z82.49) Family history of hypertension (V17.49) (Z82.49) Grandparent Family history of diabetes mellitus (V18.0) (Z83.3) Uncle Family history of throat cancer (V16.0) (Z80.0) Social History Problems Coffee [employer] (more content not included)... Normal [facility] - Chemistry and C hemistry - challengeon 01-05-2022 Albumin BCP dye [Mass/Vol] 3.8 g/dL 3.4 - 5.0 [facility] 300 Work Phone: [phone] ALP [Catalytic activity/Vol] 65 U/L 33 - 136 [facility] 300 Work Phone: [phone] ALT With P-5'-P [Catalytic activity/Vol] 21 U/L 7 - 45 [facility] 300 Work Phone: [phone] Comment on above: Patients treated wit h Sulfasalazine may generate falsely decreased results for ALT. Anion gap [Moles/Vol] 9 mmol/L below low threshold 10 - 20 [facility] 300 Work Phone: [phone] AST With P-5'-P [Catalytic activity/Vol] 24 U/L 9 - [address] [facility] 300 Work Phone: [phone] Bilirubin [Mass/Vol] 0.6 mg/dL 0.0 - 1.[address] [facility] 300 Work Phone: [phone] Calcium [Mass/Vol] 9.1 mg/dL 8.6 - 10.3 [facility] 300 Work Phone: [phone] Chloride [Moles/Vol] 105 mmol/L 98 - [address] [facility] 300 Work Phone: [phone] CO2 [Moles/Vol] 30 mmol/L 21 - 32 [facility] 300 Work Phone: [phone] Creatinine [Mass/Vol] 0.84 mg/dL See Below [facility] 300 Work Phone: [phone] Comment on above: Reference Range: 0.5 0 - 1.05 Glucose [Mass/Vol] 88 mg/dL 74 - 99 [facility] 300 Work Phone: [phone] Potassium [Moles/Vol] 4.4 mmol/L 3.5 - 5.3 [facility] 300 Work Phone: [phone] Protein [Mass/Vol] 5.4 g/dL below low threshold 6.4 - 8.2 [facility] 300 Work Phone: [phone] Sodium [Moles/Vol] 140 mmol/L 136 - 145 [facility] 300 Work Phone: [phone] Urea nitrogen [Mass/Vol] 22 mg/dL 6 - 23 [facility] 300 Work Phone: [phone] N-TELOPEPTIDEon 01-05-2022 Creatinine [Mass/Vol] 46 mg/dL Normal [facility] Comment on above: Result Comment: Perf ormed By: [facility] [address] [place] [address] Urgent Care Nurse Practitioner: Dejan Rios MD, PhD Performed By: #### T HYDS #### [facility] [address] [place] [address] N-TELOPEPTIDE 25 Normal [facility] Comment on above: Result Comment: Norm al adult female: Premenopausal: 17-94 nM BCE/mM creatinine Postmenopausal: 26-124 nM BCE/mM creatinine INTERPRETIVE INFORMATION: N-Telopeptide, Cross Linked, Urine NTx Units = nM BCE/mM creatinine A decrease of 30-40% from the NTx baseline after 3 months of therapy is a typical response to anti-resorptive therapy. NTx = Cross-linked N-telopeptide of Type I Collagen BCE = Bone Collagen Equivalent Access complete set of age- and/or gender-specific reference intervals for this test in the Business e via [place] Laboratory Test Directory ([employer]). Performed By: #### T HYDS #### [address] [address] No Panel Informationon 01-05 75 {mL/min/1.73m2} >90 [facility] Work Phone: Comment on above: CALCULATIONS OF TAYE MATED GFR ARE PERFORMED USING THE 2020 CKD-EPI STUDY REFIT EQUATION WITHOUT THE RACE VARIABLE FOR THE IDMS-TRACEABLE CREATININE METHODS.https://jasn.asnjournals.org/content//ASN.2 002886904 Tobacco Screening.on 022 Fall risk assessment a) No falls within the last year [facility] 300 Work Phone: [phone] Tobacco use status CPHS b) No [facility] 300 Work Phone: C Telopeptide, Beta Cross Li nkedon 12-30-2021 C Telopeptide, Beta Cross Linked 412 pg/mL [facility] 300 Work Phone: Comment on above: Premenopausal Female s: 136-689 pg/mLPostmenopausal Females: 177-1015 pg/mLREFERENCE INTERVAL: C-Telopeptide, Fjpg-Fbcti-Qacact, SerumAccess complete set of age- and/or gender-specific reference intervals for this test in the Business e via [place] Laboratory Test Directory ([employer]).Performed By: [facility] [place] [id number] Director: Dejan Rios MD, PhD COMPREHENSIVE PANELon 2021 Albumin [Mass/Vol] 3.8 g/dL Normal 3.4 - 5.0 [facility] Comment on above: Performed By: #### C BCDF #### [address] [address] ALP [Catalytic activity/Vol] 70 U/L Normal 33 - 136 [facility] Comment on above: Performed By: #### C BCDF #### [address] [address] ALT [Catalytic activity/Vol] 32 U/L Normal 7 - 45 [facility] Comment on above: Result Comment: Lori ents treated with Sulfasalazine may generate falsely decreased results for ALT. Performed By: #### C BCDF #### [address] [address] Anion gap [Moles/Vol] 10 mmol/L Normal 10 - 20 [facility] Comment on above: Performed By: #### C BCDF #### [address] [address] AST [Catalytic activity/Vol] 42 U/L High 9 - 39 [facility] Comment on above: Performed By: #### C BCDF #### [address] [address] Bilirubin [Mass/Vol] 0.6 mg/dL Normal 0.0 - 1.2 [facility] Comment on above: Performed By: #### C BCDF #### [address] [address] Calcium [Mass/Vol] 9.2 mg/dL Normal 8.6 - 10.3 [facility] Comment on above: Performed By: #### C BCDF #### [address] [address] Chloride [Moles/Vol] 104 mmol/L Normal 98 - 107 [facility] Comment on above: Performed By: #### C BCDF #### [address] [address] Creatinine [Mass/Vol] 0.78 mg/dL Normal 0.50 - 1.05 [facility] Comment on above: Performed By: #### C BCDF #### [address] [address] GFR/1.73 sq M.predicted among non-blacks MDRD (S/P/Bld) [Vol rate/Area] 82 mL/min/{1.73_m2} Normal >90 [facility] Comment on above: Result Comment: CALC ULATIONS OF ESTIMATED GFR ARE PERFORMED USING THE 2021 CKD-EPI STUDY REFIT EQUATION WITHOUT THE RACE VARIABLE FOR THE IDMS-TRACEABLE CREATININE METHODS. https://jasn.asnjournals.org/content//ASN.434050748 8 Performed By: #### C BCDF #### [address] [address] Glucose [Mass/Vol] 88 mg/dL Normal 74 - 99 [facility] Comment on above: Performed By: #### C BCDF #### [address] [address] HCO3 (Bld) [Moles/Vol] 31 mmol/L Normal 21 - 32 [facility] Comment on above: Performed By: #### C BCDF #### [address] [address] Potassium [Moles/Vol] 4.7 mmol/L Normal 3.5 - 5.3 [facility] Comment on above: Performed By: #### C BCDF #### [address] [address] Protein [Mass/Vol] 5.7 g/dL Low 6.4 - 8.2 [facility] Comment on above: Performed By: #### C BCDF #### [address] [address] Sodium [Moles/Vol] 140 mmol/L Normal 136 - 145 [facility] Comment on above: Performed By: #### C BCDF #### [address] [address] Urea nitrogen [Mass/Vol] 19 mg/dL Normal 6 - 23 [facility] Comment on above: Performed By: #### C BCDF #### [address] [address] Laboratory - Chemistry and C hemistry - challengeon 12-30-2021 Collagen crosslinked N-telopeptide/Crea tinine (U) [Molar ratio] [address] [facility] 300 Work Phone: Comment on above: Normal adult female: Premenopausal: 17-94 nM BCE/mM creatinine Postmenopausal: 26-124 nM BCE/mM creatinineINTERPRETIVE INFORMATION: N-Telopeptide, Cross Linked, UrineNTx Units = nM BCE/mM creatinineA decrease of 30-40% from the NTx baseline after 3 months of therapy is a typical response to anti-resorptive therapy.NTx = Cross-linked N-telopeptide of Type I CollagenBCE = Bone Collagen EquivalentAccess complete set of age- and/or gender-specific reference intervals for this test in the Business e via [place] Laboratory Test Directory ([employer]). Creatinine (U) [Mass/Vol] 46 mg/dL [facility] 300 Work Phone: [phone] Comment on above: Performed By: KEYA [address] [id number] Director: Dejan Rios MD, PhD Albumin BCP dye [Mass/Vol] 3.8 g/dL 3.4 - 5.0 [facility] 300 Work Phone: [phone] ALP [Catalytic activity/Vol] 70 U/L 33 - 136 [facility] 300 Work Phone: [phone] ALT With P-5'-P [Catalytic activity/Vol] 32 U/L 7 - 45 [facility] 300 Work Phone: [phone] Comment on above: Patients treated wit h Sulfasalazine may generate falsely decreased results for ALT. Anion gap [Moles/Vol] 10 mmol/L 10 - 20 [facility] 300 Work Phone: [phone] AST With P-5'-P [Catalytic activity/Vol] 42 U/L above high threshold 9 - 39 [facility] 300 Work Phone: [phone] Bilirubin [Mass/Vol] 0.6 mg/dL 0.0 - 1.2 [facility] 300 Work Phone: [phone] Calcium [Mass/Vol] 9.2 mg/dL 8.6 - 10.3 [facility] Orthopedics and Sports [facility] 300 Work Phone: Chloride [Moles/Vol] 104 mmol/L 98 - 107 [facility] 300 Work Phone: [phone] CO2 [Moles/Vol] 31 mmol/L 21 - 32 [facility] 300 Work Phone: [phone] Creatinine [Mass/Vol] 0.78 mg/dL See Below [facility] 300 Work Phone: [phone] Comment on above: Reference Range: 0.5 0 - 1.05 Glucose [Mass/Vol] 88 mg/dL 74 - 99 [facility] 300 Work Phone: [phone] Potassium [Moles/Vol] 4.7 mmol/L 3.5 - 5.3 [facility] 300 Work Phone: [phone] Protein [Mass/Vol] 5.7 g/dL below low threshold 6.4 - 8.2 [facility] 300 Work Phone: [phone] Sodium [Moles/Vol] 140 mmol/L 136 - 145 [facility] 300 Work Phone: [phone] Urea nitrogen [Mass/Vol] 19 mg/dL 6 - 23 [facility] 300 Work Phone: [phone] Panel Informationon 12-30 82 {mL/min/1.73m2} >90 [facility] 300 Work Phone: [phone] Comment on above: CALCULATIONS OF TAYE MATED GFR ARE PERFORMED USING THE 2020 CKD-EPI STUDY REFIT EQUATION WITHOUT THE RACE VARIABLE FOR THE IDMS-TRACEABLE CREATININE METHODS.https://jasn.asnjournals.org/content//ASN.2 685044467 THYROXINEon 12-30-2021 T4 [Mass/Vol] 6.7 ug/dL Normal 4.5 - 11.1 [facility] Comment on above: Performed By: #### C BCDF #### [facility] [address] [place] [address] TSHon 12-30-2021 TSH Qn 2.64 m[IU]/L Normal 0.44 - 3.98 [facility] Comment on above: Result Comment: TSH testing is performed using different testing methodology at [facility] than at other [facility]. Direct result comparisons should only be made within the same method. Performed By: #### C BCDF #### [address] [address] TSH - Thyroid Stimulating Ho rmone, Serumon 12-30-2021 TSH Qn 2.64 m[IU]/L See Below [facility] Orthopedics and Sports [facility] 300 Work Phone: Comment on above: Reference Range: 0.4 4 - 3.98 TSH testing is performed using different testing methodology at [facility] than at other [facility]. Direct result comparisons should only be made within the same method. Thyroxine, Serum (T4)on T4 [Mass/Vol] 6.7 ug/dL 4.5 - 11.1 [facility] Orthopedics and Sports [facility] 300 Work Phone: VITAMIN D, 25-HYDROXYon VITAMIN D, 25-HYDROXY 56 ng/mL Normal [facility] Comment on above: Result Comment: . DEFICIENCY: < 20 NG/ML INSUFFICIENCY: 20-29 NG/ML SUFFICIENCY: 30-100 NG/ML THIS ASSAY ACCURATELY QUANTIFIES THE SUM OF VITAMIN D3, 25-HYDROXY AND VIT D2,25-HYDROXY. Performed By: #### T HYDS #### [address] [address] Vitamin D 25-Hydroxyon 12-30 25-hydroxyvitamin D3 [Mass/Vol] 56 ng/mL [facility] 300 Work Phone: Comment on above: .DEFICIENCY: < 20 NG /MLINSUFFICIENCY: 20-29 NG/MLSUFFICIENCY: 30-100 NG/MLTHIS ASSAY ACCURATELY QUANTIFIES THE SUM OFVITAMIN D3, 25-HYDROXY AND VIT D2,25-HYDROXY. Radiologyon 12-10-2021 XR Knee 4 Views Please click on the link to view the study images Normal [facility] 300 Work Phone: [phone] XR Knee 4 Views Normal [facility] 300 Work Phone: [phone] Tobacco Screening.on Fall risk assessment b) One or more falls in the last year [facility] Orthopedics [facility] 300 Work Phone: Tobacco use status [facility] b) No [facility] Orthopedics [facility] 300 Work Phone: [phone] Tobacco Screening.on Fall risk assessment a) No falls within the last year [facility] 205 DO Work Phone: Tobacco use status [facility] b) No [facility] 205 DO Work Phone: Complete Blood Count + Diffe rentialon 11-04-2021 Basophils/100 WBC (Bld) 0.8 % 0.0 - 2.0 [facility] 205 DO Work Phone: Erythrocyte distribution width (RBC) [Ratio] 16.1 % above high threshold See Below [facility] 205 DO Work Phone: Comment on above: Reference Range: 11. 5 - 14.5 Hematocrit (Bld) [Volume fraction] 31.7 % below low threshold See Below [facility] 205 DO Work Phone: Comment on above: Reference Range: 36. 0 - 46.0 Hemoglobin (Bld) [Mass/Vol] 10.9 g/dL below low threshold See Below [facility] 205 DO Work Phone: Comment on above: Reference Range: 12. 0 - 16.0 Lymphocytes/100 WBC (Bld) 25.4 % See Below [facility] 205 DO Work Phone: Comment on above: Reference Range: 13. 0 - 44.0 MCHC (RBC) [Mass/Vol] 34.3 g/dL See Below [facility] 205 DO Work Phone: Comment on above: Reference Range: 32. 0 - 36.0 MCV (RBC) [Entitic vol] 93 fL 80 - 100 [facility] 205 DO Work Phone: Monocytes/100 WBC (Bld) 8.3 % 2.0 - 10.0 [facility] 205 DO Work Phone: Neutrophils/100 WBC (Bld) 60.4 % See Below [facility] 205 DO Work Phone: Comment on above: Reference Range: 40. 0 - 80.0 Platelets (Bld) [#/Vol] 249 10*3/uL 150 - 450 [facility] 205 DO Work Phone: RBC (Bld) [#/Vol] 3.42 {x10E12/L} below low threshold See Below [facility] 205 DO Work Phone: Comment on above: Reference Range: 4.0 0 - 5.20 WBC (Bld) [#/Vol] 4.7 10*3/uL 4.4 - 11.3 [facility] 205 DO Work Phone: Complete Blood Count + Differential 0.00 {x10E9/L} See Below [facility] 205 DO Work Phone: Comment on above: Reference Range: 0.0 0 - 0.10 Complete Blood Count + Differential 0.20 {x10E9/L} See Below [facility] 205 DO Work Phone: Comment on above: Reference Range: 0.0 0 - 0.70 Complete Blood Count + Differential 0.40 {x10E9/L} See Below [facility] 205 DO Work Phone: Comment on above: Reference Range: 0.1 0 - 1.00 Complete Blood Count + Differential 1.20 {x10E9/L} See Below [facility] 205 DO Work Phone: Comment on above: Reference Range: 1.2 0 - 4.80 Complete Blood Count + Differential 2.80 {x10E9/L} See Below [place] [address] DO Work Phone: Comment on above: Reference Range: 1.2 0 - 7.70 Percent differential counts (%) should be interpreted in the context of the absolute cell counts (cells/L). Complete Blood Count + Differential 5.1 % 0.0 - 6.0 [place] [address] DO Work Phone: Complete Blood Count + Differential 0.1 {/100_WBC} [place] [address] DO Work Phone: Laboratory - Chemistry and C hemistry - challengeon 11-04-2021 Albumin BCP dye [Mass/Vol] 3.8 g/dL 3.4 - 5.0 [place] [address] DO Work Phone: ALP [Catalytic activity/Vol] 59 U/L 33 - 136 [place] [address] DO Work Phone: ALT With P-5'-P [Catalytic activity/Vol] 19 U/L 7 - 45 [place] [address] DO Work Phone: Comment on above: Patients treated wit h Sulfasalazine may generate falsely decreased results for ALT. Anion gap [Moles/Vol] 9 mmol/L below low threshold 10 - 20 [place] [address] DO Work Phone: AST With P-5'-P [Catalytic activity/Vol] 27 U/L 9 - 39 [facility] 205 DO Work Phone: Bilirubin [Mass/Vol] 0.6 mg/dL 0.0 - 1.2 [facility] 205 DO Work Phone: Calcium [Mass/Vol] 9.0 mg/dL 8.6 - 10.3 [facility] 205 DO Work Phone: Chloride [Moles/Vol] 106 mmol/L 98 - 107 [facility] 205 DO Work Phone: CO2 [Moles/Vol] 30 mmol/L 21 - 32 [facility] 205 DO Work Phone: Creatinine [Mass/Vol] 0.80 mg/dL See Below [facility] 205 DO Work Phone: Comment on above: Reference Range: 0.5 0 - 1.05 Glucose [Mass/Vol] 86 mg/dL 74 - 99 [facility] 205 DO Work Phone: Potassium [Moles/Vol] 4.3 mmol/L 3.5 - 5.3 [facility] 205 DO Work Phone: [phone] Protein [Mass/Vol] 6.0 g/dL below low threshold 6.4 - 8.2 [facility] 205 DO Work Phone: Sodium [Moles/Vol] 141 mmol/L 136 - 145 [facility] 205 DO Work Phone: TSH Qn 2.18 m[IU]/L See Below [facility] 205 DO Work Phone: [phone] Comment on above: Reference Range: 0.4 4 - 3.98 TSH testing is performed using different testing methodology at [facility] than at other [facility]. Direct result comparisons should only be made within the same method. Urea nitrogen [Mass/Vol] 19 mg/dL 6 - 23 [facility] DO Work Phone: Lipid Panelon 11-04-2021 Cholesterol [Mass/Vol] 150 mg/dL 0 - 199 [facility] DO Work Phone: Comment on above: . AGE DESIRABLE BORD RENAY HIGH HIGH 0-19 Y 0 - 169 170 - 199 >/= 200 20-24 Y 0 - 189 190 - 224 >/= 225 >24 Y 0 - 199 200 - 239 >/= 240 All ranges are based on fasting samples. Specific therapeutic targets will vary based on patient-specific cardiac risk.. Pediatric guidelines reference:Pediatrics 2011, 128(S5). Adult guidelines reference: NCEP ATPIII Guidelines, ALFIE 2001, 258:2486-97. Venipuncture immediately after or during the administration of Metamizole may lead to falsely low results. Testing should be performed immediately prior to Metamizole dosing. Cholesterol in HDL [Mass/Vol] 62.0 mg/dL [facility] DO Work Phone: Comment on above: . AGE VERY LOW LOW N ORMAL HIGH 0-19 Y < 35 < 40 40-45 ---- 20- 24 Y ---- < 40 >45 ---- >24 Y ---- < 40 40-60 >60. Cholesterol in LDL [Mass/Vol] 66 mg/dL 0 - 99 [facility] DO Work Phone: Comment on above: . NEAR BORD AGE JEFFREY RABLE OPTIMAL HIGH HIGH VERY HIGH 0-19 Y 0 - 109 --- 110-129 >/= 130 ---- 20-24 Y 0 - 119 --- 120-159 >/= 160 ---- >24 Y 0 - 99 100-129 130-159 160-189 >/=190. Cholesterol.total/ Cholesterol in HDL [Mass ratio] 2.4 {ratio} [facility] DO Work Phone: Comment on above: REF VALUESDESIRABLE < 3.4HIGH RISK > 5.0 Triglyceride [Mass/Vol] 108 mg/dL 0 - 149 [facility] DO Work Phone: Comment on above: . AGE DESIRABLE BORD RENAY HIGH HIGH VERY HIGH 0 D-90 D 19 - 174 ---- ---- ----91 D- 9 Y 0 - 74 75 - 99 >/= 100 ---- 10-19 Y 0 - 89 90 - 129 >/= 130 ---- 20-24 Y 0 - 114 115 - 149 >/= 150 ---- >24 Y 0 - 149 150 - 199 200- 499 >/= 500. Venipuncture immediately after or during the administration of Metamizole may lead to falsely low results. Testing should be performed immediately prior to Metamizole dosing. Lipid Panel 22 mg/dL 0 - 40 [place] [address] DO Work Phone: No Panel Informationon 11-04 79 {mL/min/1.73m2} >90 [place] [address] DO Work Phone: Comment on above: CALCULATIONS OF TAYE MATED GFR ARE PERFORMED USING THE 2020 CKD-EPI STUDY REFIT EQUATION WITHOUT THE RACE VARIABLE FOR THE IDMS-TRACEABLE CREATININE METHODS.https://jasn.asnjournals.org/content///ASN.2 910627057 Vitamin B12, Serumon 022 Cobalamin (Vitamin B12) [Mass/Vol] 695 pg/mL 211 - 911 [place] [address] DO Work Phone: Complete Blood Count + Diffe rentialon 07-13-2021 Basophils/100 WBC (Bld) 0.6 % 0.0 - 2.0 [facility] land Work Phone: Erythrocyte distribution width (RBC) [Ratio] 15.9 % above high threshold See Below [facility] Phone: Comment on above: Reference Range: 11. 5 - 14.5 Hematocrit (Bld) [Volume fraction] 34.7 % below low threshold See Below [facility] Phone: Comment on above: Reference Range: 36. 0 - 46.0 Hemoglobin (Bld) [Mass/Vol] 11.2 g/dL below low threshold See Below [facility] Phone: Comment on above: Reference Range: 12. 0 - 16.0 Lymphocytes/100 WBC (Bld) 20.0 % See Below [facility] Phone: Comment on above: Reference Range: 13. 0 - 44.0 MCHC (RBC) [Mass/Vol] 32.4 g/dL See Below [facility] Phone: Comment on above: Reference Range: 32. 0 - 36.0 MCV (RBC) [Entitic vol] 94 fL 80 - 100 [facility] Phone: Monocytes/100 WBC (Bld) 7.0 % 2.0 - 10.0 [facility] Phone: Neutrophils/100 WBC (Bld) 66.8 % See Below [facility] Phone: Comment on above: Reference Range: 40. 0 - 80.0 Platelets (Bld) [#/Vol] 312 10*3/uL 150 - 450 [facility] Phone: RBC (Bld) [#/Vol] 3.68 {x10E12/L} below low threshold See Below [facility] Phone: Comment on above: Reference Range: 4.0 0 - 5.20 WBC (Bld) [#/Vol] 5.0 10*3/uL 4.4 - 11.3 [facility] [employer] Phone: Complete Blood Count + Differential 0.00 {x10E9/L} See Below [facility] [employer] Phone: Comment on above: Reference Range: 0.0 0 - 0.10 Complete Blood Count + Differential 0.30 {x10E9/L} See Below [facility] [employer] Phone: Comment on above: Reference Range: 0.0 0 - 0.70 Reference Range: 0.1 0 - 1.00 Complete Blood Count + Differential 1.00 {x10E9/L} below low threshold See Below [facility] [employer] Phone: Comment on above: Reference Range: 1.2 0 - 4.80 Complete Blood Count + Differential 3.40 {x10E9/L} See Below [facility] [employer] Phone: Comment on above: Reference Range: 1.2 0 - 7.70 Percent differential counts (%) should be interpreted in the context of the absolute cell counts (cells/L). Complete Blood Count + Differential 5.6 % 0.0 - 6.0 [facility] [employer] Phone: Complete Blood Count + Differential 0.1 {/100_WBC} [facility] [employer] Phone: Laboratory - Chemistry and C hemistry - challengeon 07-13-2021 Albumin BCP dye [Mass/Vol] 3.8 g/dL 3.4 - 5.0 [facility] [employer] Phone: ALP [Catalytic activity/Vol] 60 U/L 33 - 136 [facility] [employer] Phone: ALT With P-5'-P [Catalytic activity/Vol] 16 U/L 7 - 45 [facility] [employer] Phone: Comment on above: Patients treated wit h Sulfasalazine may generate falsely decreased results for ALT. Anion gap [Moles/Vol] 8 mmol/L below low threshold 10 - 20 [facility] [employer] Work Phone: AST With P-5'-P [Catalytic activity/Vol] 25 U/L 9 - 39 [facility] [employer] Work Phone: Bilirubin [Mass/Vol] 0.5 mg/dL 0.0 - 1.2 [facility] [employer] Work Phone: Calcium [Mass/Vol] 9.3 mg/dL 8.6 - 10.3 [facility] [employer] Work Phone: Chloride [Moles/Vol] 104 mmol/L 98 - 107 [facility] [employer] Work Phone: CO2 [Moles/Vol] 32 mmol/L 21 - 32 [facility] [employer] Work Phone: Creatinine [Mass/Vol] 0.79 mg/dL See Below [facility] [employer] Work Phone: Comment on above: Reference Range: 0.5 0 - 1.05 Glucose [Mass/Vol] 82 mg/dL 74 - 99 [facility] [employer] Work Phone: Potassium [Moles/Vol] 4.1 mmol/L 3.5 - 5.3 [facility] [employer] Work Phone: Protein [Mass/Vol] 6.0 g/dL below low threshold 6.4 - 8.2 [facility] [employer] Work Phone: Sodium [Moles/Vol] 140 mmol/L 136 - 145 [facility] [employer] Work Phone: Urea nitrogen [Mass/Vol] 27 mg/dL above high threshold 6 - 23 [facility] [employer] Work Phone: No Panel Informationon 04-18 -2022 81 {mL/min/1.73m2} >90 [facility] [employer] Phone: Comment on above: CALCULATIONS OF TAYE MATED GFR ARE PERFORMED USING THE 2020 CKD-EPI STUDY REFIT EQUATION WITHOUT THE RACE VARIABLE FOR THE IDMS-TRACEABLE CREATININE METHODS.https://jasn.asnjournals.org/content//ASN.2 758538858 Tobacco Screening.on 022 Fall risk assessment a) No falls within the last year [employer] Phone: Tobacco use status [facility] b) No [employer] Phone: Complete Blood Count + Diffe rentialon 05-12-2021 Basophils/100 WBC (Bld) 0.3 % 0.0 - 2.0 [employer] Phone: Erythrocyte distribution width (RBC) [Ratio] 15.3 % above high threshold See Below [employer] Phone: Comment on above: Reference Range: 11. 5 - 14.5 Hematocrit (Bld) [Volume fraction] 37.0 % See Below [employer] Phone: Comment on above: Reference Range: 36. 0 - 46.0 Hemoglobin (Bld) [Mass/Vol] 11.9 g/dL below low threshold See Below [employer] Phone: Comment on above: Reference Range: 12. 0 - 16.0 Lymphocytes/100 WBC (Bld) 14.3 % See Below [employer] Phone: Comment on above: Reference Range: 13. 0 - 44.0 MCHC (RBC) [Mass/Vol] 32.1 g/dL See Below [employer] Phone: Comment on above: Reference Range: 32. 0 - 36.0 MCV (RBC) [Entitic vol] 95 fL 80 - 100 [facility] Phone: Monocytes/100 WBC (Bld) 5.9 % 2.0 - 10.0 [facility] [employer] Phone: Neutrophils/100 WBC (Bld) 77.3 % See Below [facility] Phone: Comment on above: Reference Range: 40. 0 - 80.0 Platelets (Bld) [#/Vol] 321 10*3/uL 150 - 450 [facility] Phone: RBC (Bld) [#/Vol] 3.89 {x10E12/L} below low threshold See Below [facility] [employer] Phone: Comment on above: Reference Range: 4.0 0 - 5.20 WBC (Bld) [#/Vol] 7.3 10*3/uL 4.4 - 11.3 [facility] Phone: Complete Blood Count + Differential 0.00 {x10E9/L} See Below [facility] [employer] Phone: Comment on above: Reference Range: 0.0 0 - 0.10 Complete Blood Count + Differential 0.20 {x10E9/L} See Below [facility] [employer] Phone: Comment on above: Reference Range: 0.0 0 - 0.70 Complete Blood Count + Differential 0.40 {x10E9/L} See Below [facility] Phone: Comment on above: Reference Range: 0.1 0 - 1.00 Complete Blood Count + Differential 1.00 {x10E9/L} below low threshold See Below [facility] Phone: Comment on above: Reference Range: 1.2 0 - 4.80 Complete Blood Count + Differential 5.60 {x10E9/L} See Below [facility] [employer] Work Phone: Comment on above: Reference Range: 1.2 0 - 7.70 Percent differential counts (%) should be interpreted in the context of the absolute cell counts (cells/L). Complete Blood Count + Differential 2.2 % 0.0 - 6.0 [facility] [employer] Work Phone: Laboratory - Chemistry and C hemistry - challengeon 05-12-2021 Albumin BCP dye [Mass/Vol] 3.8 g/dL 3.4 - 5.0 [facility] [employer] Work Phone: ALP [Catalytic activity/Vol] 55 U/L 33 - 136 [facility] Work Phone: ALT With P-5'-P [Catalytic activity/Vol] 18 U/L 7 - 45 [facility] [employer] Phone: Comment on above: Patients treated wit h Sulfasalazine may generate falsely decreased results for ALT. Anion gap [Moles/Vol] 9 mmol/L below low threshold 10 - 20 [facility] [employer] Phone: AST With P-5'-P [Catalytic activity/Vol] 23 U/L 9 - 39 [facility] [employer] Work Phone: Bilirubin [Mass/Vol] 0.6 mg/dL 0.0 - 1.2 [facility] [employer] Work Phone: Calcium [Mass/Vol] 9.2 mg/dL 8.6 - 10.3 [facility] [employer] Work Phone: Chloride [Moles/Vol] 104 mmol/L 98 - 107 [facility] [employer] Work Phone: CO2 [Moles/Vol] 31 mmol/L 21 - 32 [facility] [employer] Work Phone: Creatinine [Mass/Vol] 0.83 mg/dL See Below [facility] Work Phone: Comment on above: Reference Range: 0.5 0 - 1.05 Glucose [Mass/Vol] 91 mg/dL 74 - 99 [facility] [employer] Work Phone: Potassium [Moles/Vol] 4.0 mmol/L 3.5 - 5.3 [facility] [employer] Phone: Protein [Mass/Vol] 6.4 g/dL 6.4 - 8.2 [facility] [employer] Work Phone: Sodium [Moles/Vol] 140 mmol/L 136 - 145 [facility] [employer] Phone: TSH Qn 2.34 m[IU]/L See Below [facility] [employer] Phone: Comment on above: Reference Range: 0.4 4 - 3.98 TSH testing is performed using different testing methodology at [facility] than at other [facility]. Direct result comparisons should only be made within the same method. Urea nitrogen [Mass/Vol] 20 mg/dL 6 - 23 [facility] [employer] Phone: Laboratory - Drug toxicology on 05-12-2021 Amphetamines Screen Ql (U) Negative NEGATIVE [facility] [employer] Phone: Comment on above: CUTOFF LEVEL: 500 NG /ML Cross-reactivity has been reported with high concentrations of the following drugs: buproprion, chloroquine, chlorpromazine, ephedrine, mephentermine, fenfluramine, phentermine, phenylpropanolamine, pseudoephedrine, and propranolol. Barbiturates Screen Ql (U) Negative NEGATIVE [facility] [employer] Phone: Comment on above: CUTOFF LEVEL: 200 NG /ML Benzodiazepines Ql (U) Negative NEGATIVE [facility] [employer] Phone: Comment on above: CUTOFF LEVEL: 200 NG /ML Benzoylecgonine Screen Ql (U) Negative NEGATIVE [facility] Phone: Comment on above: CUTOFF LEVEL: 150 NG /ML Cannabinoids Screen Ql (U) Negative NEGATIVE [facility] Phone: Comment on above: CUTOFF LEVEL: 50 NG/ ML Methadone Screen Ql (U) Negative NEGATIVE [facility] Phone: Comment on above: CUTOFF LEVEL: 150 NG /ML The metabolite Q-stipp-yagvqqhdiedlhl (LAAM) is not detected by this method in concentrations that would be found in the urine of patients on LAAM therapy. Opiates Screen Ql (U) Negative NEGATIVE [employer] [facility] Phone: Comment on above: CUTOFF LEVEL: 300 NG /ML The opiate screen does not detect fentanyl, meperidine, or tramadol. Oxycodone is not consistently detected (refer to Oxycodone Screen, Urine result). oxyCODONE+oxyMORph one Screen Ql (U) Negative NEGATIVE [facility] Phone: Comment on above: CUTOFF LEVEL: 100 NG /ML This test will accurately detect both oxycodone and oxymorphone. Phencyclidine Ql (U) Negative NEGATIVE [facility] Phone: Comment on above: CUTOFF LEVEL: 25 NG/ ML Cross-reactivity has been reported with dextromethorphan. Lipid Panelon 05-12-2021 Cholesterol [Mass/Vol] 134 mg/dL 0 - 199 [facility] Phone: Comment on above: . AGE DESIRABLE BORD RENAY HIGH HIGH 0-19 Y 0 - 169 170 - 199 >/= 200 20-24 Y 0 - 189 190 - 224 >/= 225 >24 Y 0 - 199 200 - 239 >/= 240 All ranges are based on fasting samples. Specific therapeutic targets will vary based on patient-specific cardiac risk.. Pediatric guidelines reference:Pediatrics 2011, 128(S5). Adult guidelines reference: NCEP ATPIII Guidelines, ALFIE 2001, 258:2486-97. Venipuncture immediately after or during the administration of Metamizole may lead to falsely low results. Testing should be performed immediately prior to Metamizole dosing. Cholesterol in HDL [Mass/Vol] 64.0 mg/dL [employer] Phone: Comment on above: . AGE VERY LOW LOW N ORMAL HIGH 0-19 Y < 35 < 40 40-45 ---- 20- 24 Y ---- < 40 >45 ---- >24 Y ---- < 40 40-60 >60. Cholesterol in LDL [Mass/Vol] 49 mg/dL 0 - 99 [employer] Phone: Comment on above: . NEAR BORD AGE JEFFREY RABLE OPTIMAL HIGH HIGH VERY HIGH 0-19 Y 0 - 109 --- 110-129 >/= 130 ---- 20-24 Y 0 - 119 --- 120-159 >/= 160 ---- >24 Y 0 - 99 100-129 130-159 160-189 >/=190. Cholesterol.total/ Cholesterol in HDL [Mass ratio] 2.1 {ratio} [employer] Phone: Comment on above: REF VALUESDESIRABLE < 3.4HIGH RISK > 5.0 Triglyceride [Mass/Vol] 103 mg/dL 0 - 149 [employer] Phone: Comment on above: . AGE DESIRABLE BORD RENAY HIGH HIGH VERY HIGH 0 D-90 D 19 - 174 ---- ---- ----91 D- 9 Y 0 - 74 75 - 99 >/= 100 ---- 10-19 Y 0 - 89 90 - 129 >/= 130 ---- 20-24 Y 0 - 114 115 - 149 >/= 150 ---- >24 Y 0 - 149 150 - 199 200- 499 >/= 500. Venipuncture immediately after or during the administration of Metamizole may lead to falsely low results. Testing should be performed immediately prior to Metamizole dosing. Lipid Panel 21 mg/dL 0 - 40 [employer] Phone: No Panel Informationon 05-12 76 {mL/min/1.73m2} >90 [facility] [employer] Phone: Comment on above: CALCULATIONS OF TAYE MATED GFR ARE PERFORMED USING THE 2020 CKD-EPI STUDY REFIT EQUATION WITHOUT THE RACE VARIABLE FOR THE IDMS-TRACEABLE CREATININE METHODS.https://jasn.asnjournals.org/content//ASN.2 115144805 Negative NEGATIVE [facility] [facility] Phone: Comment on above: CUTOFF LEVEL: 1 NG/M L The performance characteristics of this test have been determined by the individual laboratory site where testing is performed. This test has not been cleared or approved by the FDA; however, the FDA has determined that such clearance is not necessary. SEE BELOW [facility] Phone: Comment on above: Drug screen results are presumptive and should not be used to assess compliance with prescribed medication. Definitive confirmatory drug testing has been added to this sample for any positive screen result and will be reported separately. .Toxicology screening results are reported qualitatively. The concentration must be greater than or equal to the cutoff to be reported as positive. The concentration at which the screening test can detect an individual drug or metabolite varies. The absence of expected drug(s) and/or drug metabolite(s) may indicate non-compliance, inappropriate timing of specimen collection relative to drug administration, poor drug absorption, diluted/adulterated urine, or limitations of testing. For medical purposes only; not valid for forensic use. .Interpretive questions should be directed to the laboratory medical directors. Vitamin B12, Serumon 022 Cobalamin (Vitamin B12) [Mass/Vol] 969 pg/mL above high threshold 211 - 911 [facility] Phone: Complete Blood Count + Diffe rentialon 04-14-2021 Basophils/100 WBC (Bld) 0.5 % 0.0 - 2.0 [facility] Phone: Erythrocyte distribution width (RBC) [Ratio] 15.6 % above high threshold See Below [facility] Work Phone: Comment on above: Reference Range: 11. 5 - 14.5 Hematocrit (Bld) [Volume fraction] 37.1 % See Below [facility] Phone: Comment on above: Reference Range: 36. 0 - 46.0 Hemoglobin (Bld) [Mass/Vol] 12.0 g/dL See Below [facility] Work Phone: Comment on above: Reference Range: 12. 0 - 16.0 Lymphocytes/100 WBC (Bld) 18.5 % See Below [facility] Phone: Comment on above: Reference Range: 13. 0 - 44.0 MCHC (RBC) [Mass/Vol] 32.2 g/dL See Below [facility] Phone: Comment on above: Reference Range: 32. 0 - 36.0 MCV (RBC) [Entitic vol] 96 fL 80 - 100 [facility] Work Phone: Monocytes/100 WBC (Bld) 6.6 % 2.0 - 10.0 [facility] Phone: Neutrophils/100 WBC (Bld) 72.2 % See Below [facility] Phone: Comment on above: Reference Range: 40. 0 - 80.0 Platelets (Bld) [#/Vol] 320 10*3/uL 150 - 450 [facility] Work Phone: RBC (Bld) [#/Vol] 3.86 {x10E12/L} below low threshold See Below [facility] Phone: Comment on above: Reference Range: 4.0 0 - 5.20 WBC (Bld) [#/Vol] 5.2 10*3/uL 4.4 - 11.3 [facility] Work Phone: Complete Blood Count + Differential 3.80 {x10E9/L} See Below [facility] [employer] Phone: Comment on above: Reference Range: 1.2 0 - 7.70 Percent differential counts (%) should be interpreted in the context of the absolute cell counts (cells/L). Complete Blood Count + Differential 2.2 % 0.0 - 6.0 [facility] [employer] Phone: Complete Blood Count + Differential 0.00 {x10E9/L} See Below [facility] [employer] Phone: Comment on above: Reference Range: 0.0 0 - 0.10 Complete Blood Count + Differential 0.10 {x10E9/L} See Below [facility] [employer] Phone: Comment on above: Reference Range: 0.0 0 - 0.70 Complete Blood Count + Differential 0.30 {x10E9/L} See Below [facility] [employer] Phone: Comment on above: Reference Range: 0.1 0 - 1.00 Complete Blood Count + Differential 1.00 {x10E9/L} below low threshold See Below [facility] [employer] Phone: Comment on above: Reference Range: 1.2 0 - 4.80 Laboratory - Chemistry and C hemistry - challengeon 04-14-2021 Albumin BCP dye [Mass/Vol] 3.9 g/dL 3.4 - 5.0 [facility] [employer] Phone: ALP [Catalytic activity/Vol] 53 U/L 33 - 136 [facility] [employer] Phone: ALT With P-5'-P [Catalytic activity/Vol] 30 U/L 7 - 45 [facility] [employer] Phone: Comment on above: Patients treated wit h Sulfasalazine may generate falsely decreased results for ALT. Anion gap [Moles/Vol] 10 mmol/L 10 - 20 [facility] [employer] Work Phone: AST With P-5'-P [Catalytic activity/Vol] 38 U/L 9 - 39 [facility] [employer] Work Phone: Bilirubin [Mass/Vol] 0.7 mg/dL 0.0 - 1.2 [facility] [employer] Work Phone: Calcium [Mass/Vol] 9.1 mg/dL 8.6 - 10.3 [facility] [employer] Work Phone: Chloride [Moles/Vol] 104 mmol/L 98 - 107 [facility] [employer] Work Phone: CO2 [Moles/Vol] 30 mmol/L 21 - 32 [facility] [employer] Work Phone: Creatinine [Mass/Vol] 0.79 mg/dL See Below [facility] [employer] Work Phone: Comment on above: Reference Range: 0.5 0 - 1.05 Glucose [Mass/Vol] 81 mg/dL 74 - 99 [facility] [employer] Work Phone: Potassium [Moles/Vol] 3.9 mmol/L 3.5 - 5.3 [facility] [employer] Work Phone: Protein [Mass/Vol] 6.3 g/dL below low threshold 6.4 - 8.2 [facility] [employer] Work Phone: Sodium [Moles/Vol] 140 mmol/L 136 - 145 [facility] [employer] Work Phone: Urea nitrogen [Mass/Vol] 21 mg/dL 6 - 23 [facility] [employer] Work Phone: No Panel Informationon 04-14 81 {mL/min/1.73m2} >90 [facility] [employer] Work Phone: Comment on above: CALCULATIONS OF TAYE MATED GFR ARE PERFORMED USING THE 2020 CKD-EPI STUDY REFIT EQUATION WITHOUT THE RACE VARIABLE FOR THE IDMS-TRACEABLE CREATININE METHODS.https://jasn.asnjournals.org/content//ASN.2 465713701 Complete Blood Count + Diffe rentialon 01-07-2021 Basophils/100 WBC (Bld) 0.6 % 0.0 - 2.0 [facility] [employer] [facility] Phone: Erythrocyte distribution width (RBC) [Ratio] 14.7 % above high threshold See Below [employer] [facility] Phone: Comment on above: Reference Range: 11. 5 - 14.5 Hematocrit (Bld) [Volume fraction] 36.0 % See Below [facility] [employer] [facility] Phone: Comment on above: Reference Range: 36. 0 - 46.0 Hemoglobin (Bld) [Mass/Vol] 11.5 g/dL below low threshold See Below [employer] [facility] Phone: Comment on above: Reference Range: 12. 0 - 16.0 Lymphocytes/100 WBC (Bld) 30.1 % See Below [facility] [facility] Phone: Comment on above: Reference Range: 13. 0 - 44.0 MCHC (RBC) [Mass/Vol] 32.0 g/dL See Below [facility] Phone: Comment on above: Reference Range: 32. 0 - 36.0 MCV (RBC) [Entitic vol] 98 fL 80 - 100 [employer] [facility]Leoma[facility] Phone: Monocytes/100 WBC (Bld) 6.2 % 2.0 - 10.0 [facility]Leoma[facility] Phone: Neutrophils/100 WBC (Bld) 58.5 % See Below [facility] [employer] [facility] Phone: Comment on above: Reference Range: 40. 0 - 80.0 Platelets (Bld) [#/Vol] 265 10*3/uL 150 - 450 [facility] [employer] Phone: RBC (Bld) [#/Vol] 3.69 {x10E12/L} below low threshold See Below [facility] [employer] Phone: Comment on above: Reference Range: 4.0 0 - 5.20 WBC (Bld) [#/Vol] 4.4 10*3/uL 4.4 - 11.3 [facility] [employer] Phone: Complete Blood Count + Differential 0.00 {x10E9/L} See Below [facility] [employer] Phone: Comment on above: Reference Range: 0.0 0 - 0.10 Complete Blood Count + Differential 0.20 {x10E9/L} See Below [facility] [employer] Phone: Comment on above: Reference Range: 0.0 0 - 0.70 Complete Blood Count + Differential 0.30 {x10E9/L} See Below [facility] [employer] Phone: Comment on above: Reference Range: 0.1 0 - 1.00 Complete Blood Count + Differential 1.30 {x10E9/L} See Below [facility] [employer] Phone: Comment on above: Reference Range: 1.2 0 - 4.80 Complete Blood Count + Differential 2.60 {x10E9/L} See Below [facility] [employer] Phone: Comment on above: Reference Range: 1.2 0 - 7.70 Percent differential counts (%) should be interpreted in the context of the absolute cell counts (cells/L). Complete Blood Count + Differential 4.6 % 0.0 - 6.0 [facility] [employer] Phone: C Telopeptide, Beta Cross Li nkedon 12-31-2020 C Telopeptide, Beta Cross Linked 342 pg/mL [facility] [employer] Work Phone: Comment on above: Postmenopausal Femal es: 104-1008 pg/mLREFERENCE INTERVAL: C-Telopeptide, Elep-Lfrqy-Mutoqp, SerumAccess complete set of age- and/or gender-specific reference intervals for this test in the Business e via [place] Laboratory Test Directory ([employer]).Performed By: [employer] [place] [id number] Director: Munira Hurt MD C Telopeptide, Beta Cross Linked Canceled 10 - [facility] [employer] Work Phone: Comment on above: CALCULATIONS OF TAYE MATED GFR ARE PERFORMED USING THE MDRD STUDY EQUATION FOR THE IDMS-TRACEABLE CREATININE METHODS. CLIN CHEM 2007;53:766-72This is a corrected result. Previous value was >60, verified at 12/31/2020 09:09 This is a corrected result. Previous value was >60, verified at 12/31/2020 09:09 This is a corrected result. Previous value was 7, verified at 12/31/2020 09:09 Laboratory - Chemistry and C hemistry - challengeon 12-31-2020 Albumin BCP dye [Mass/Vol] 3.8 g/dL 3.4 - 5.0 [facility] [employer] Work Phone: Albumin BCP dye [Mass/Vol] Canceled 3.4 - 5.0 [facility] [employer] Work Phone: Comment on above: This is a corrected result. Previous value was 3.8, verified at 12/31/2020 09:09 ALP [Catalytic activity/Vol] 66 U/L 33 - 136 [facility] [employer] Work Phone: ALP [Catalytic activity/Vol] Canceled 33 - 136 [facility] [employer] Work Phone: Comment on above: This is a corrected result. Previous value was 66, verified at 12/31/2020 09:09 ALT With P-5'-P [Catalytic activity/Vol] 35 U/L 7 - 45 [facility] Work Phone: Comment on above: Patients treated wit h Sulfasalazine may generate falsely decreased results for ALT. ALT With P-5'-P [Catalytic activity/Vol] Canceled 7 - 45 [facility] [employer] Work Phone: Comment on above: Patients treated wit h Sulfasalazine may generate falsely decreased results for ALT.This is a corrected result. Previous value was 35, verified at 12/31/2020 09:09 Anion gap [Moles/Vol] 7 mmol/L below low threshold 10 - 20 [facility] Work Phone: AST With P-5'-P [Catalytic activity/Vol] 39 U/L 9 - 39 [facility] [employer] Work Phone: AST With P-5'-P [Catalytic activity/Vol] Canceled 9 - 39 [facility] Work Phone: Comment on above: This is a corrected result. Previous value was 39, verified at 12/31/2020 09:09 Bilirubin [Mass/Vol] 0.6 mg/dL 0.0 - 1.2 [facility] [employer] Work Phone: Bilirubin [Mass/Vol] Canceled 0.0 - 1.2 [facility] [employer] Phone: Comment on above: This is a corrected result. Previous value was 0.6, verified at 12/31/2020 09:09 Calcium [Mass/Vol] 9.3 mg/dL 8.6 - 10.3 [facility] [employer] Work Phone: Calcium [Mass/Vol] Canceled 8.6 - 10.3 [facility] Work Phone: Comment on above: This is a corrected result. Previous value was 9.3, verified at 12/31/2020 09:09 Chloride [Moles/Vol] 105 mmol/L 98 - 107 [facility] Work Phone: Chloride [Moles/Vol] Canceled 98 - 107 [facility] Work Phone: Comment on above: This is a corrected result. Previous value was 105, verified at 12/31/2020 09:09 CO2 [Moles/Vol] 31 mmol/L 21 - 32 [facility] Work Phone: CO2 [Moles/Vol] Canceled 21 - 32 [facility] Work Phone: Comment on above: This is a corrected result. Previous value was 31, verified at 12/31/2020 09:09 Collagen crosslinked N-telopeptide/Crea tinine (U) [Molar ratio] 26 1 [facility] Work Phone: Comment on above: INTERPRETIVE INFORMA TION: N-Telopeptide, Cross Linked, UrineNTx Units = nM BCE/mM creatinineA decrease of 30-40% from the NTx baseline after 3 months of therapy is a typical response to anti-resorptive therapy.NTx = Cross-linked N-telopeptide of Type I CollagenBCE = Bone Collagen EquivalentAccess complete set of age- and/or gender-specific reference intervals for this test in the Business e via [place] Laboratory Test Directory ([employer]). Creatinine (U) [Mass/Vol] 69 mg/dL [facility] Work Phone: Comment on above: Performed By: KEYA Marcelino [id number] [place], [place] [id number] Director: Munira Hurt MD Creatinine [Mass/Vol] 0.77 mg/dL See Below [facility] Work Phone: Comment on above: Reference Range: 0.5 0 - 1.05 Creatinine [Mass/Vol] Canceled See Below [facility] Work Phone: Comment on above: Reference Range: 0.5 0 - 1.05This is a corrected result. Previous value was 0.77, verified at 12/31/2020 09:09 Glucose [Mass/Vol] 92 mg/dL 74 - 99 [facility] [employer] Work Phone: Glucose [Mass/Vol] Canceled 74 - 99 [facility] [employer] Work Phone: Comment on above: This is a corrected result. Previous value was 92, verified at 12/31/2020 09:09 Potassium [Moles/Vol] 4.1 mmol/L 3.5 - 5.3 [facility] [employer] Work Phone: Potassium [Moles/Vol] Canceled 3.5 - 5.3 [facility] [employer] Work Phone: Comment on above: This is a corrected result. Previous value was 4.1, verified at 12/31/2020 09:09 Protein [Mass/Vol] 6.1 g/dL below low threshold 6.4 - 8.2 [facility] [employer] Work Phone: Protein [Mass/Vol] Canceled 6.4 - 8.2 [facility] [employer] Phone: Comment on above: This is a corrected result. Previous value was 6.1, verified at 12/31/2020 09:09 Sodium [Moles/Vol] 139 mmol/L 136 - 145 [facility] [employer] Work Phone: Sodium [Moles/Vol] Canceled 136 - 145 [facility] [employer] Work Phone: Comment on above: This is a corrected result. Previous value was 139, verified at 12/31/2020 09:09 Urea nitrogen [Mass/Vol] 23 mg/dL 6 - 23 [facility] [employer] Work Phone: Urea nitrogen [Mass/Vol] Canceled 6 - 23 [facility] [employer] Work Phone: Comment on above: This is a corrected result. Previous value was 23, verified at 12/31/2020 09:09 No Panel Informationon 12-31 >60 >60 [facility] [employer] Work Phone: Comment on above: CALCULATIONS OF TAYE MATED GFR ARE PERFORMED USING THE MDRD STUDY EQUATION FOR THE IDMS-TRACEABLE CREATININE METHODS. CLIN CHEM 2007;53:766-72 TSH - Thyroid Stimulating Ho keagan, Serumon 12-31-2020 TSH Qn 1.74 m[IU]/L See Below [facility] [employer] Work Phone: Comment on above: Reference Range: 0.4 4 - 3.98 TSH testing is performed using different testing methodology at [facility] than at other [facility]. Direct result comparisons should only be made within the same method. TSH Qn Canceled See Below [facility] [employer] Work Phone: Comment on above: Reference Range: 0.4 4 - 3.98 TSH testing is performed using different testing methodology at [facility] than at other [facility]. Direct result comparisons should only be made within the same method.This is a corrected result. Previous value was 1.74, verified at 12/31/2020 09:07 Vitamin D 25-Hydroxyon 12-31 25-hydroxyvitamin D3 [Mass/Vol] 49 ng/mL [facility] [employer] Work Phone: Comment on above: .DEFICIENCY: < 20 NG /MLINSUFFICIENCY: 20-29 NG/MLSUFFICIENCY: 30-100 NG/MLTHIS ASSAY ACCURATELY QUANTIFIES THE SUM OFVITAMIN D3, 25-HYDROXY AND VIT D2,25-HYDROXY. 25-hydroxyvitamin D3 [Mass/Vol] Canceled [facility] [employer] Work Phone: Comment on above: .DEFICIENCY: < 20 NG /MLINSUFFICIENCY: 20-29 NG/MLSUFFICIENCY: 30-100 NG/MLTHIS ASSAY ACCURATELY QUANTIFIES THE SUM OFVITAMIN D3, 25-HYDROXY AND VIT D2,25-HYDROXY.This is a corrected result. Previous value was 49, verified at 12/31/2020 09:18 Tobacco Screening.on 021 Fall risk assessment b) One or more falls in the last year [employer] Phone: Tobacco use status CPHS b) No [employer] Phone: Complete Blood Count + Diffe rentialon 10-31-2020 Basophils/100 WBC (Bld) 0.6 % 0.0 - 2.0 [employer] Phone: Erythrocyte distribution width (RBC) [Ratio] 15.0 % above high threshold See Below [employer] Phone: Comment on above: Reference Range: 11. 5 - 14.5 Hematocrit (Bld) [Volume fraction] 38.3 % See Below [employer] Phone: Comment on above: Reference Range: 36. 0 - 46.0 Hemoglobin (Bld) [Mass/Vol] 12.6 g/dL See Below [employer] Phone: Comment on above: Reference Range: 12. 0 - 16.0 Lymphocytes/100 WBC (Bld) 20.8 % See Below [employer] Phone: Comment on above: Reference Range: 13. 0 - 44.0 MCHC (RBC) [Mass/Vol] 32.9 g/dL See Below [employer] Phone: Comment on above: Reference Range: 32. 0 - 36.0 MCV (RBC) [Entitic vol] 97 fL 80 - 100 [employer] Phone: Monocytes/100 WBC (Bld) 7.3 % 2.0 - 10.0 [employer] Phone: Neutrophils/100 WBC (Bld) 67.4 % See Below [facility] Phone: Comment on above: Reference Range: 40. 0 - 80.0 Platelets (Bld) [#/Vol] 264 10*3/uL 150 - 450 [facility] [employer] Phone: RBC (Bld) [#/Vol] 3.97 {x10E12/L} below low threshold See Below [facility] Phone: Comment on above: Reference Range: 4.0 0 - 5.20 WBC (Bld) [#/Vol] 5.5 10*3/uL 4.4 - 11.3 [facility] Phone: Complete Blood Count + Differential 0.00 {x10E9/L} See Below [facility] [employer] Phone: Comment on above: Reference Range: 0.0 0 - 0.10 Complete Blood Count + Differential 0.20 {x10E9/L} See Below [facility] [employer] Phone: Comment on above: Reference Range: 0.0 0 - 0.70 Complete Blood Count + Differential 0.40 {x10E9/L} See Below [facility] [employer] Phone: Comment on above: Reference Range: 0.1 0 - 1.00 Complete Blood Count + Differential 1.20 {x10E9/L} See Below [facility] [employer] Phone: Comment on above: Reference Range: 1.2 0 - 4.80 Complete Blood Count + Differential 3.70 {x10E9/L} See Below [facility] Phone: Comment on above: Reference Range: 1.2 0 - 7.70 Percent differential counts (%) should be interpreted in the context of the absolute cell counts (cells/L). Complete Blood Count + Differential 3.9 % 0.0 - 6.0 [facility] Work Phone: Laboratory - Chemistry and C hemistry - challengeon 10-31-2020 Albumin BCP dye [Mass/Vol] 4.0 g/dL 3.4 - 5.0 [facility] [employer] Work Phone: ALP [Catalytic activity/Vol] 70 U/L 33 - 136 [facility] Work Phone: ALT With P-5'-P [Catalytic activity/Vol] 21 U/L 7 - 45 [facility] Work Phone: Comment on above: Patients treated wit h Sulfasalazine may generate falsely decreased results for ALT. Anion gap [Moles/Vol] 9 mmol/L below low threshold 10 - 20 [facility] [employer] Work Phone: AST With P-5'-P [Catalytic activity/Vol] 26 U/L 9 - 39 [facility] [employer] Work Phone: Bilirubin [Mass/Vol] 0.6 mg/dL 0.0 - 1.2 [facility] Work Phone: Calcium [Mass/Vol] 9.4 mg/dL 8.6 - 10.3 [facility] [employer] Work Phone: Chloride [Moles/Vol] 105 mmol/L 98 - 107 [facility] Work Phone: CO2 [Moles/Vol] 30 mmol/L 21 - 32 [facility] [employer] Work Phone: Creatinine [Mass/Vol] 0.68 mg/dL See Below [facility] Work Phone: Comment on above: Reference Range: 0.5 0 - 1.05 Glucose [Mass/Vol] 95 mg/dL 74 - 99 [facility] [employer] Work Phone: Potassium [Moles/Vol] 4.0 mmol/L 3.5 - 5.3 [facility] Phone: Protein [Mass/Vol] 6.4 g/dL 6.4 - 8.2 [facility] Phone: Sodium [Moles/Vol] 140 mmol/L 136 - 145 [facility] [employer] Phone: TSH Qn 1.71 m[IU]/L See Below [facility] [employer] Phone: Comment on above: Reference Range: 0.4 4 - 3.98 TSH testing is performed using different testing methodology at [facility] than at other [facility]. Direct result comparisons should only be made within the same method. Urea nitrogen [Mass/Vol] 26 mg/dL above high threshold 6 - 23 [facility] Phone: Lipid Panelon 10-31-2020 Cholesterol [Mass/Vol] 143 mg/dL 0 - 199 [facility] [employer] Phone: Comment on above: . AGE DESIRABLE BORD RENAY HIGH HIGH 0-19 Y 0 - 169 170 - 199 >/= 200 20-24 Y 0 - 189 190 - 224 >/= 225 >24 Y 0 - 199 200 - 239 >/= 240 All ranges are based on fasting samples. Specific therapeutic targets will vary based on patient-specific cardiac risk.. Pediatric guidelines reference:Pediatrics 2011, 128(S5). Adult guidelines reference: NCEP ATPIII Guidelines, ALFIE 2001, 258:2486-97. Venipuncture immediately after or during the administration of Metamizole may lead to falsely low results. Testing should be performed immediately prior to Metamizole dosing. Cholesterol in HDL [Mass/Vol] 60.0 mg/dL [facility] [employer] Phone: Comment on above: . AGE VERY LOW LOW N ORMAL HIGH 0-19 Y < 35 < 40 40-45 ---- 20- 24 Y ---- < 40 >45 ---- >24 Y ---- < 40 40-60 >60. Cholesterol in LDL [Mass/Vol] 59 mg/dL 0 - 99 [employer] Phone: Comment on above: . NEAR BORD AGE JEFFREY RABLE OPTIMAL HIGH HIGH VERY HIGH 0-19 Y 0 - 109 --- 110-129 >/= 130 ---- 20-24 Y 0 - 119 --- 120-159 >/= 160 ---- >24 Y 0 - 99 100-129 130-159 160-189 >/=190. Cholesterol.total/ Cholesterol in HDL [Mass ratio] 2.4 {ratio} [employer] Phone: Comment on above: REF VALUESDESIRABLE < 3.4HIGH RISK > 5.0 Triglyceride [Mass/Vol] 119 mg/dL 0 - 149 [employer] Phone: Comment on above: . AGE DESIRABLE BORD RENAY HIGH HIGH VERY HIGH 0 D-90 D 19 - 174 ---- ---- ----91 D- 9 Y 0 - 74 75 - 99 >/= 100 ---- 10-19 Y 0 - 89 90 - 129 >/= 130 ---- 20-24 Y 0 - 114 115 - 149 >/= 150 ---- >24 Y 0 - 149 150 - 199 200- 499 >/= 500. Venipuncture immediately after or during the administration of Metamizole may lead to falsely low results. Testing should be performed immediately prior to Metamizole dosing. Lipid Panel 24 mg/dL 0 - 40 [employer] Phone: No Panel Informationon 10-31 >60 >60 [employer] Phone: Comment on above: CALCULATIONS OF TAYE MATED GFR ARE PERFORMED USING THE MDRD STUDY EQUATION FOR THE IDMS-TRACEABLE CREATININE METHODS. CLIN CHEM 2007;53:766-72 Vitamin B12, Serumon 021 Cobalamin (Vitamin B12) [Mass/Vol] 760 pg/mL 211 - 911 [employer] Phone: Radiologyon 10-26-2020 XR Foot 3 Views Normal [facility] [employer] Phone: Mamm - Screening Mammogram w / Tomosynthesison 10-24-2020 MG Breast Screening Normal [facility] [employer] Phone: Complete Blood Count + Diffe rentialon 10-06-2020 Basophils/100 WBC (Bld) 0.5 % 0.0 - 2.0 [facility] [employer] Phone: Erythrocyte distribution width (RBC) [Ratio] 15.6 % above high threshold See Below [facility] [employer] Phone: Comment on above: Reference Range: 11. 5 - 14.5 Hematocrit (Bld) [Volume fraction] 36.6 % See Below [facility] [employer] Phone: Comment on above: Reference Range: 36. 0 - 46.0 Hemoglobin (Bld) [Mass/Vol] 11.7 g/dL below low threshold See Below [facility] [employer] Phone: Comment on above: Reference Range: 12. 0 - 16.0 Lymphocytes/100 WBC (Bld) 25.5 % See Below [facility] [employer] Phone: Comment on above: Reference Range: 13. 0 - 44.0 MCHC (RBC) [Mass/Vol] 32.0 g/dL See Below [facility] [employer] Phone: Comment on above: Reference Range: 32. 0 - 36.0 MCV (RBC) [Entitic vol] 98 fL 80 - 100 [facility] [employer] Phone: Monocytes/100 WBC (Bld) 8.1 % 2.0 - 10.0 [facility] [employer] Phone: Neutrophils/100 WBC (Bld) 61.2 % See Below [facility] Phone: Comment on above: Reference Range: 40. 0 - 80.0 Platelets (Bld) [#/Vol] 256 10*3/uL 150 - 450 [facility] Phone: RBC (Bld) [#/Vol] 3.76 {x10E12/L} below low threshold See Below [facility] [employer] Phone: Comment on above: Reference Range: 4.0 0 - 5.20 WBC (Bld) [#/Vol] 4.9 10*3/uL 4.4 - 11.3 [facility] [employer] Phone: Complete Blood Count + Differential 0.00 {x10E9/L} See Below [facility] [employer] Phone: Comment on above: Reference Range: 0.0 0 - 0.10 Complete Blood Count + Differential 0.20 {x10E9/L} See Below [facility] [employer] Phone: Comment on above: Reference Range: 0.0 0 - 0.70 Complete Blood Count + Differential 0.40 {x10E9/L} See Below [facility] [employer] Phone: Comment on above: Reference Range: 0.1 0 - 1.00 Complete Blood Count + Differential 1.20 {x10E9/L} See Below [facility] [employer] Phone: Comment on above: Reference Range: 1.2 0 - 4.80 Complete Blood Count + Differential 3.00 {x10E9/L} See Below [facility] [employer] Phone: Comment on above: Reference Range: 1.2 0 - 7.70 Percent differential counts (%) should be interpreted in the context of the absolute cell counts (cells/L). Complete Blood Count + Differential 4.7 % 0.0 - 6.0 [facility] [employer] Phone: Complete Blood Count + Differential 0.1 {/100_WBC} [facility] [employer] Phone: Laboratory - Chemistry and C hemistry - challengeon 10-06-2020 Albumin BCP dye [Mass/Vol] 3.8 g/dL 3.4 - 5.0 [facility] [employer] Work Phone: ALP [Catalytic activity/Vol] 60 U/L 33 - 136 [facility] [employer] Work Phone: ALT With P-5'-P [Catalytic activity/Vol] 19 U/L 7 - 45 [facility] [employer] Work Phone: Comment on above: Patients treated wit h Sulfasalazine may generate falsely decreased results for ALT. Anion gap [Moles/Vol] 8 mmol/L below low threshold 10 - 20 [facility] [employer] Work Phone: AST With P-5'-P [Catalytic activity/Vol] 26 U/L 9 - 39 [facility] [employer] Work Phone: Bilirubin [Mass/Vol] 0.6 mg/dL 0.0 - 1.2 [facility] [employer] Work Phone: Calcium [Mass/Vol] 9.4 mg/dL 8.6 - 10.3 [facility] [employer] Work Phone: Chloride [Moles/Vol] 106 mmol/L 98 - 107 [facility] [employer] Work Phone: CO2 [Moles/Vol] 30 mmol/L 21 - 32 [facility] [employer] Work Phone: Creatinine [Mass/Vol] 0.80 mg/dL See Below [facility] Work Phone: Comment on above: Reference Range: 0.5 0 - 1.05 Glucose [Mass/Vol] 95 mg/dL 74 - 99 [facility] [employer] Work Phone: Potassium [Moles/Vol] 4.1 mmol/L 3.5 - 5.3 [facility] [employer] Work Phone: Protein [Mass/Vol] 6.0 g/dL below low threshold 6.4 - 8.2 [facility] [employer] Phone: Sodium [Moles/Vol] 140 mmol/L 136 - 145 [facility] [employer] Work Phone: Urea nitrogen [Mass/Vol] 27 mg/dL above high threshold 6 - 23 [facility] [employer] Phone: No Panel Informationon 10-06 >60 >60 [facility] [employer] Phone: Comment on above: CALCULATIONS OF TAYE MATED GFR ARE PERFORMED USING THE MDRD STUDY EQUATION FOR THE IDMS-TRACEABLE CREATININE METHODS. CLIN CHEM 2007;53:766-72 No Panel Informationon 08-15 Please click on the link to view the study images Normal [facility] [employer] Phone: Otheron 05-02-2020 Please click on the link to view the study images Normal [facility] [employer] Phone: Otheron 04-29-2020 Interpreted by: NZCOFO51/04/21 17:47MRN: [id number] Name: NARENDRA ARGUELLES STUDY:SPINE, LUMBOSACRAL CMPLT(BENDING); 04/29/2020 2:57 pm INDICATION:pain. COMPARISON:11/01/2018 ORDERING CLINICIAN:NIRAV ALCANTAR FINDINGS:Multiple views of the lumbar spine are obtained. There is osteopeniawith suboptimal visualization of the osseous details. Laminectomychanges and posterior hardware fusion of L4 and L5 vertebral bodies.Grade 1 anterolisthesis of L4 on L5, unchanged. Grade 1retrolisthesis L2 on L3 and L1 on L2, apparently slightly progressedsince the prior exam. Disc space loss throughout with endplatesclerosis and osteophytes. Post vertebroplasty changes of the sacrum. IMPRESSION:Prior fusion of the lower lumbar spine with multilevel listhesis andadvanced discogenic degenerative changes as described. Electronically signed by: CRIS 05/01/20 17:47 [facility] Phone: Complete Blood Count + Diffe rentialon 04-21-2020 Basophils (Bld) [#/Vol] 0.00 {x10E9/L} See Below [facility] Phone: Comment on above: Reference Range: 0.0 0 - 0.10 Basophils/100 WBC (Bld) 0.6 % 0.0 - 2.0 [facility] Phone: Eosinophils (Bld) [#/Vol] 0.20 {x10E9/L} See Below [facility] [employer] Phone: Comment on above: Reference Range: 0.0 0 - 0.70 Eosinophils/100 WBC (Bld) 4.1 % 0.0 - 6.0 [facility] Phone: Erythrocyte distribution width (RBC) [Ratio] 14.7 % above high threshold See Below [facility] [employer] Phone: Comment on above: Reference Range: 11. 5 - 14.5 Hematocrit (Bld) [Volume fraction] 37.6 % See Below [facility] Phone: Comment on above: Reference Range: 36. 0 - 46.0 Hemoglobin (Bld) [Mass/Vol] 12.0 g/dL See Below [facility] [employer] Phone: Comment on above: Reference Range: 12. 0 - 16.0 Lymphocytes (Bld) [#/Vol] 1.30 {x10E9/L} See Below [facility] Phone: Comment on above: Reference Range: 1.2 0 - 4.80 Lymphocytes/100 WBC (Bld) 24.7 % See Below [facility] [employer] Phone: Comment on above: Reference Range: 13. 0 - 44.0 MCHC (RBC) [Mass/Vol] 31.8 g/dL below low threshold See Below [facility] [employer] Phone: Comment on above: Reference Range: 32. 0 - 36.0 MCV (RBC) [Entitic vol] 99 fL 80 - 100 [facility] [employer] Phone: Monocytes (Bld) [#/Vol] 0.30 {x10E9/L} See Below [facility] [employer] Phone: Comment on above: Reference Range: 0.1 0 - 1.00 Monocytes/100 WBC (Bld) 6.5 % 2.0 - 10.0 [facility] [employer] Phone: Neutrophils (Bld) [#/Vol] 3.40 {x10E9/L} See Below [facility] [employer] Phone: Comment on above: Reference Range: 1.2 0 - 7.70 Percent differential counts (%) should be interpreted in the context of the absolute cell counts (cells/L). Neutrophils/100 WBC (Bld) 64.1 % See Below [facility] [employer] Phone: Comment on above: Reference Range: 40. 0 - 80.0 Platelets (Bld) [#/Vol] 255 {x10E9/L} 150 - 450 [facility] [employer] Phone: RBC (Bld) [#/Vol] 3.82 {x10E12/L} below low threshold See Below [facility] [employer] Phone: Comment on above: Reference Range: 4.0 0 - 5.20 WBC (Bld) [#/Vol] 5.4 {x10E9/L} 4.4 - 11.3 [facility] Work Phone: WBC (Bld) [#/Vol] 0.2 {/100_WBC} [facility] [employer] Phone: Metabolic Panelon 04-21-2020 ALP [Catalytic activity/Vol] 53 U/L 33 - 136 [facility] [employer] Work Phone: Anion gap [Moles/Vol] 8 mmol/L below low threshold 10 - 20 [facility] [employer] Work Phone: Bilirubin [Mass/Vol] 0.5 mg/dL 0.0 - 1.2 [facility] [employer] Work Phone: Calcium [Mass/Vol] 9.0 mg/dL 8.6 - 10.3 [facility] [employer] Work Phone: Chloride [Moles/Vol] 106 mmol/L 98 - 107 [facility] [employer] Work Phone: CO2 [Moles/Vol] 29 mmol/L 21 - 32 [facility] [employer] Work Phone: Creatinine [Mass/Vol] 0.74 mg/dL See Below [facility] [employer] Phone: Comment on above: Reference Range: 0.5 0 - 1.05 Glucose [Mass/Vol] 86 mg/dL 74 - 99 [facility] [employer] Work Phone: Potassium [Moles/Vol] 3.9 mmol/L 3.5 - 5.3 [facility] [employer] Work Phone: Protein [Mass/Vol] 5.7 g/dL below low threshold 6.4 - 8.2 [facility] [employer] Work Phone: Sodium [Moles/Vol] 139 mmol/L 136 - 145 [facility] [employer] Work Phone: Urea nitrogen [Mass/Vol] 31 mg/dL above high threshold 6 - 23 [facility] Phone: Otheron 04-21-2020 Albumin BCP dye [Mass/Vol] 3.8 g/dL 3.4 - 5.0 [facility] Work Phone: ALT With P-5'-P [Catalytic activity/Vol] 18 U/L 7 - 45 [facility] Work Phone: Comment on above: Patients treated wit h Sulfasalazine may generate falsely decreased results for ALT. AST With P-5'-P [Catalytic activity/Vol] 22 U/L 9 - 39 [facility] Work Phone: >60 >60 [facility] Phone: Comment on above: CALCULATIONS OF TAYE MATED GFR ARE PERFORMED USING THE MDRD STUDY EQUATION FOR THE IDMS-TRACEABLE CREATININE METHODS. CLIN CHEM 2007;53:766-72 TSH - Thyroid Stimulating Ho keagan, Serumon 04-21-2020 TSH Qn 1.21 {mIU/L} See Below [facility] [employer] Phone: Comment on above: Reference Range: 0.4 4 - 3.98 TSH testing is performed using different testing methodology at [facility] than at other [facility]. Direct result comparisons should only be made within the same method. Mamm - Screening Mammogram w / Tomosynthesison 08-03-2019 MG Breast screening Interpreted by: EZEQUIEL ERICKSON08/03/19 08:42MRN: [id number] Name: NARENDRA ARGUELLES STUDY:Digital mammography screening with marina; 08/03/2019 7:55 am ORDERING CLINICIAN:JASMINE MATHIAS INDICATION:Screening. COMPARISON:Comparison is made to prior digital mammograms dated06/29/2018 and12/31/2015 FINDINGS:CC and MLO 2D digital mammograms and digital breast tomosynthesisimages were obtained of the bilateral breasts. 3-D volume images werereconstructed in 4 views at an independent workstation as 1 mm slicesthrough the breasts in both the CC and MLO projections. The breast tissue is almost entirely fatty. No discrete mass or focalasymmetry is identified. No suspicious microcalcifications or foci ofarchitectural distortion are seen. There has been no significantchange. This study was interpreted with CAD. IMPRESSION:No mammographic evidence of malignancy. BI-RADS CATEGORY:Category: 1 - Negative.Recommendation: 1 Year Screening.Electronically signed by: EZEQUIEL ERICKSON 08/03/19 08:42 Normal [facility] [employer] Work Phone: Comment on above: ORDER REVISED TO A D IGITAL MAMM SCREENING W/ MARINA BY RADIOLOGIST; Original Order Number: [id number] Complete Blood Count + Diffe erich 07-12-2019 Basophils (Bld) [#/Vol] 0.00 {x10E9/L} See Below [facility] [employer] Work Phone: Comment on above: Reference Range: 0.0 0 - 0.10 Ordering Provider: Renee MCFARLANDA TASHIA [id number] Basophils/100 WBC (Bld) 0.5 % 0.0 - 2.0 [facility] [employer] [facility] Work Phone: Comment on above: Ordering Provider: Renee ADMA VELMARICARMENKI 14833 Eosinophils (Bld) [#/Vol] 0.20 {x10E9/L} See Below [facility] [employer] Work Phone: Comment on above: Reference Range: 0.0 0 - 0.70 Ordering Provider: Renee MCFARLANDA DCKI 72713 Eosinophils/100 WBC (Bld) 3.8 % 0.0 - 6.0 [facility] [employer] Work Phone: Comment on above: Ordering Provider: Renee ADMA SHEKHARLANKI 73631 Erythrocyte distribution width (RBC) [Ratio] 15.3 % above high threshold See Below [facility] [employer] Work Phone: Comment on above: Reference Range: 11. 5 - 14.5 Ordering Provider: Renee MCFARLANDA SHEKHARLANKI 66966 Hematocrit (Bld) [Volume fraction] 40.3 % See Below [facility] [employer] Work Phone: Comment on above: Reference Range: 36. 0 - 46.0 Ordering Provider: Renee CHISHOLM 67353 Hemoglobin (Bld) [Mass/Vol] 13.0 g/dL See Below [facility] Work Phone: Comment on above: Reference Range: 12. 0 - 16.0 Ordering Provider: Renee IRWINKI 35372 Lymphocytes (Bld) [#/Vol] 1.40 {x10E9/L} See Below [facility] Work Phone: Comment on above: Reference Range: 1.2 0 - 4.80 Ordering Provider: P ADMA TASHIA 42583 Lymphocytes/100 WBC (Bld) 25.0 % See Below [facility] [employer] Phone: Comment on above: Reference Range: 13. 0 - 44.0 Ordering Provider: Renee MCFARLANDA TASHIA 54682 MCHC (RBC) [Mass/Vol] 32.3 g/dL See Below [facility] [employer] Phone: Comment on above: Reference Range: 32. 0 - 36.0 Ordering Provider: Renee IRWINKI 60434 MCV (RBC) [Entitic vol] 99 fL 80 - 100 [facility] Work Phone: Comment on above: Ordering Provider: P ADMA DCKI 19311 Monocytes (Bld) [#/Vol] 0.40 {x10E9/L} See Below [facility] [employer] Phone: Comment on above: Reference Range: 0.1 0 - 1.00 Ordering Provider: P ADMA SHEKHARLANKI 39626 Monocytes/100 WBC (Bld) 6.5 % 2.0 - 10.0 [facility] Work Phone: Comment on above: Ordering Provider: P ADMA SHEKHARLANKI 71009 Neutrophils (Bld) [#/Vol] 3.50 {x10E9/L} See Below [facility] [employer] Phone: Comment on above: Reference Range: 1.2 0 - 7.70 Percent differential counts (%) should be interpreted in the context of the absolute cell counts (cells/L). Ordering Provider: P ADMA VELLANKI 26210 Neutrophils/100 WBC (Bld) 64.2 % See Below [facility] [employer] Phone: Comment on above: Reference Range: 40. 0 - 80.0 Ordering Provider: P ADMA VELLANKI 49807 Platelets (Bld) [#/Vol] 268 {x10E9/L} 150 - 450 [facility] Work Phone: Comment on above: Ordering Provider: P ADMA VELLANKI 65302 RBC (Bld) [#/Vol] 4.07 {x10E12/L} See Below [facility] Work Phone: Comment on above: Reference Range: 4.0 0 - 5.20 Ordering Provider: P ADMA VELLANKI 71284 WBC (Bld) [#/Vol] 5.5 {x10E9/L} 4.4 - 11.3 [facility] Work Phone: Comment on above: Ordering Provider: P ADMA VELLANKI 33285 WBC (Bld) [#/Vol] 0.2 {/100_WBC} [facility] Work Phone: Comment on above: Ordering Provider: P ADMA VELLANKI 27689 Metabolic Panelon 07-12-2019 ALP [Catalytic activity/Vol] 53 U/L 33 - 136 [facility] Work Phone: Comment on above: Ordering Provider: P ADMA VELLANKI 14772 Anion gap [Moles/Vol] 8 mmol/L below low threshold 10 - 20 [facility] Work Phone: Comment on above: Ordering Provider: P ADMA VELLANKI 63554 Bilirubin [Mass/Vol] 0.6 mg/dL 0.0 - 1.2 [facility] Work Phone: Comment on above: Ordering Provider: P ADMA VELLANKI 93181 Calcium [Mass/Vol] 9.8 mg/dL 8.6 - 10.3 [facility] Work Phone: Comment on above: Ordering Provider: P ADMA VELLANKI 88993 Chloride [Moles/Vol] 104 mmol/L 98 - 107 [facility] Work Phone: Comment on above: Ordering Provider: P ADMA VELLANKI 74070 CO2 [Moles/Vol] 31 mmol/L 21 - 32 [facility] Work Phone: Comment on above: Ordering Provider: P ADMA VELLANKI 92481 Creatinine [Mass/Vol] 0.83 mg/dL See Below [facility] Work Phone: Comment on above: Reference Range: 0.5 0 - 1.05 Ordering Provider: P ADMA VELLANKI 91299 Glucose [Mass/Vol] 99 mg/dL 74 - 99 [facility] Work Phone: Comment on above: Ordering Provider: P ADMA VELLANKI 94018 Potassium [Moles/Vol] 4.0 mmol/L 3.5 - 5.3 [facility] Work Phone: Comment on above: Ordering Provider: P ADMA VELLANKI 96067 Protein [Mass/Vol] 6.7 g/dL 6.4 - 8.2 [facility] Work Phone: Comment on above: Ordering Provider: P ADMA VELLANKI 00496 Sodium [Moles/Vol] 139 mmol/L 136 - 145 [facility] Work Phone: Comment on above: Ordering Provider: P ADMA VELLANKI 55583 Urea nitrogen [Mass/Vol] 24 mg/dL above high threshold 6 - 23 [facility] Work Phone: Comment on above: Ordering Provider: P ADMA VELLANKI 98775 Otheron 07-12-2019 Albumin BCP dye [Mass/Vol] 4.2 g/dL 3.4 - 5.0 [facility] Work Phone: Comment on above: Ordering Provider: P ADMA SHEKHARLANKI 30934 ALT With P-5'-P [Catalytic activity/Vol] 27 U/L 7 - 45 [facility] Work Phone: Comment on above: Patients treated wit h Sulfasalazine may generate falsely decreased results for ALT. Ordering Provider: P CINDY CHISHOLM 31938 AST With P-5'-P [Catalytic activity/Vol] 29 U/L 9 - 39 [facility] Work Phone: Comment on above: Ordering Provider: P A TASHIA 46061 >60 >60 [facility] Work Phone: Comment on above: CALCULATIONS OF TAYE MATED GFR ARE PERFORMED USING THE MDRD STUDY EQUATION FOR THE IDMS-TRACEABLE CREATININE METHODS. CLIN CHEM 2007;53:766-72 Ordering Provider: Renee CINDY CHISHOLM 29517 XR Pelvis Inlet/Outlet 3+ Vi ewson 06-11-2019 I reviewed the AP, i nlet, and outlet views that were obtained in the office today. 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 She is status post right hip arthroplasty with the implant in good position. There is also evidence of prior lumbar fusion with instrumentation that appears to be in good position. There is radiopaque material within the bilateral sacral/SI joint regions. [facility] Auto Diffon 12-29-2018 Basophils (Bld) [#/Vol] 0.0 E3/mcL Normal 0.0-0.2 [facility] Comment on above: Order Comment: Order Added by Discern Expert. Performed By: #### [id number] #### ALIRIO RemHemo [facility] [place] [address] Basophils/100 WBC (Bld) 0.7 % Normal 0.0-2.0 [facility] Comment on above: Order Comment: Order Added by Discern Expert. Performed By: #### 9 [id number] #### ALIRIO RemHemo [address] [place] [address] Eos Absolute 0.3 E3/mcL Normal 0.0-0.7 [facility] Comment on above: Order Comment: Order Added by Discern Expert. Performed By: #### 9 [id number] #### ALIRIO RemHemo [address] [place] [address] Eosinophils/100 WBC (Bld) 4.9 % Normal 0.0-11.0 [facility] Comment on above: Order Comment: Order Added by Discern Expert. Performed By: #### 9 [id number] #### ALIRIO RootHemo [address] [place] [address] Lymphocytes (Bld) [#/Vol] 1.6 E3/mcL Normal 1.2-3.4 [facility] Comment on above: Order Comment: Order Added by Discern Expert. Performed By: #### 9 [id number] #### ALIRIO RootHemo [address] [place] [address] Lymphocytes/100 WBC (Bld) 27.4 % Normal 20.0-55.0 [facility] Comment on above: Order Comment: Order Added by Discern Expert. Performed By: #### 9 [id number] #### ALIRIO RemHemo [address] [place] [address] [place] Absolute 0.3 E3/mcL Normal 0.0-0.7 [facility] Comment on above: Order Comment: Order Added by Discern Expert. Performed By: #### 9 [id number] #### ALIRIO RootHemo [address] [place] [address] Monocytes/100 WBC (Bld) 5.7 % Normal 0.0-10.0 [facility] Comment on above: Order Comment: Order Added by Discern Expert. Performed By: #### 9 [id number] #### ALIRIO RemHemo [address] [place] [address] Neutro Absolute 3.6 E3/mcL Normal 1.4-6.5 [facility] Comment on above: Order Comment: Order Added by Discern Expert. Performed By: #### 9 [id number] #### ALIRIO RemHemo [address] [place] [id number] Neutro Auto 61.3 % Normal 37.0-75.0 [facility] Comment on above: Order Comment: Order Added by Discern Expert. Performed By: #### 9 [id number] #### ALIRIO RemHemo [address] [place] [address] CBC w/ Auto Diffon Erythrocyte distribution width (RBC) [Ratio] 14.0 % Normal 11.5-14.5 [facility] Comment on above: Performed By: #### 9 [id number] #### ALIRIO RemHemo [address] [place] [address] Hematocrit (Bld) [Volume fraction] 38.2 % Normal 36.0-48.0 [facility] Comment on above: Performed By: #### 9 [id number] #### ALIRIO RemHemo [address] [place] [address] Hemoglobin (Bld) [Mass/Vol] 12.6 g/dL Normal 12.0-16.0 [facility] Comment on above: Performed By: #### 9 [id number] #### ALIRIO RemHemo [address] [place] [address] MCH (RBC) [Entitic mass] 31.9 pg High 27.0-31.0 [facility] Comment on above: Performed By: #### 9 [id number] #### ALIRIO RemHemo [address] [place] [address] MCHC (RBC) [Mass/Vol] 33.1 g/dL Normal 33.0-37.0 [facility] Comment on above: Performed By: #### 9 [id number] #### ALIRIO RemHemo [address] [place] [address] MCV (RBC) [Entitic vol] 96.3 fL Normal 78.0-100.0 [facility] Comment on above: Performed By: #### 9 [id number] #### ALIRIO RemHemo [facility] [place] [address] Platelet mean volume (Bld) [Entitic vol] 9.0 fL Normal 7.4-11.0 [facility] Comment on above: Performed By: #### 9 [id number] #### ALIRIO RemHemo [address] [place] [address] Platelets (Bld) [#/Vol] 221 E3/mcL Normal 130-400 [facility] Comment on above: Performed By: #### 9 [id number] #### ALIRIO RootHemo [address] [place] [address] RBC (Bld) [#/Vol] 3.96 E6/mcL Normal 3.90-5.40 [facility] Comment on above: Performed By: #### 9 [id number] #### ALIRIO RootHemo [address] [place] [address] WBC (Bld) [#/Vol] 5.9 E3/mcL Normal 3.6-11.0 [facility] Comment on above: Performed By: #### 9 [id number] #### ALIRIO RootHemo [address] [place] [address] CMPon 12-29-2018 Albumin [Mass/Vol] 4.1 g/dL Normal 3.4-5.0 [facility] Comment on above: Performed By: #### 9 [id number] #### ALIRIO RootHemo [facility] [place] [address] Albumin/Globulin [Mass ratio] 2.0 {ratio} High 1.1-1.9 [facility] Comment on above: Performed By: #### 9 [id number] #### ALIRIO RemHemo [address] [place] [address] Alk Phos 57 Int._Unit/L Normal 33-136 [facility] Comment on above: Performed By: #### 9 [id number] #### ALIRIO RootHemo [address] [place] [address] ALT [Catalytic activity/Vol] 19 Int._Unit/L Normal 7-45 [facility] Comment on above: Performed By: #### 9 [id number] #### ALIRIO RemHemo [address] [place] [address] Anion gap [Moles/Vol] 8 mmol/L Low 10-20 [facility] Comment on above: Performed By: #### 9 [id number] #### ALIRIO RemHemo [address] [place] [address] AST [Catalytic activity/Vol] 22 Int._Unit/L Normal 9-39 [facility] Comment on above: Performed By: #### 9 [id number] #### ALIRIO RemHemo [address] [place] [address] Bili Total 0.56 mg/dL Normal 0.00-1.20 [facility] Comment on above: Performed By: #### 9 [id number] #### ALIRIO RootHemo [address] [place] [address] Calcium [Mass/Vol] 8.9 mg/dL Normal 8.6-10.3 [facility] Comment on above: Performed By: #### 9 [id number] #### ALIRIO RootHemo [address] [place] [address] Chloride [Moles/Vol] 108 mmol/L High 98-107 [facility] Comment on above: Performed By: #### 9 [id number] #### ALIRIO RootHemo [address] [place] [address] CO2 [Moles/Vol] 29.0 mmol/L Normal 21.0-32.[address] [facility] Comment on above: Performed By: #### 9 [id number] #### ALIRIO RootHemo [address] [place] [address] Creatinine [Mass/Vol] 0.8 mg/dL Normal 0.5-1.1 [facility] Comment on above: Performed By: #### 9 [id number] #### ALIRIO RootHemo [address] [place] [address] Globulin (S) [Mass/Vol] 2.0 g/dL Normal 2.0-4.0 [facility] Comment on above: Performed By: #### 9 [id number] #### ALIRIO RootHemo [address] [place] [address] Glucose [Mass/Vol] 91 mg/dL Normal 70-99 [facility] Comment on above: Performed By: #### 9 [id number] #### ALIRIO RootHemo [address] [place] [address] Potassium [Moles/Vol] 4.1 mmol/L Normal 3.5-5.3 [facility] Comment on above: Performed By: #### 9 [id number] #### ALIRIO RootHemo [address] [place] [address] Protein [Mass/Vol] 6.1 g/dL Low 6.4-8.2 [facility] Comment on above: Performed By: #### 9 [id number] #### ALIRIO RootHemo [address] [place] [address] Sodium [Moles/Vol] 141 mmol/L Normal 136-145 [facility] Comment on above: Performed By: #### 9 [id number] #### ALIRIODoreen Antono [address] [place] [address] Urea nitrogen [Mass/Vol] 37 mg/dL High 6-23 [facility] Comment on above: Performed By: #### 9 [id number] #### ALIRIODoreen RootHemo [address] [place] [address] Urea nitrogen/Creatinin e [Mass ratio] 46.2 ratio High 5.4-30.0 [facility] Comment on above: Performed By: #### 9 [id number] #### ALIRIODoreen Root[facility]emo [facility] [place] [address] Ionized Calcium Lvlon 2018 Ionized Ca. 4.9 mg/dL Normal 4.5-5.6 [facility] Comment on above: Performed By: #### 9 [id number] #### ALIRIO IvettHemo [address] [place] [address] Ionized Calcium POC Orderon 12-29-2018 Ionized Calcium POC Order Collected Normal [facility] Comment on above: Performed By: #### 9 [id number] #### ALIRIO IvettHemo [address] [place] [address] Lipid Profileon 12-29-2018 Cholesterol [Mass/Vol] 130 mg/dL Normal 0-199 [facility] Comment on above: Result Comment: TOTA L CHOLEESTEROL: <200 NORMAL 200 - 239 BORDERLINE HIGH >240 HIGH Performed By: #### 9 [id number] #### ALIRIODoreen RootHemo [address] [place] [address] Cholesterol in HDL [Mass/Vol] 52 mg/dL Normal 40-60 [facility] Comment on above: Performed By: #### 9 [id number] #### ALIRIODoreen RootHemo [address] [place] [address] Cholesterol in LDL [Mass/Vol] 52 mg/dL Normal 0-130 [facility] Comment on above: Result Comment: <100 OPTIMAL 100-129 NEAR / ABOVE OPTIMAL 130-159 BORDERLINE HIGH 160-189 HIGH >190 VERY HIGH CALC LDL NOT VALID WHEN TRIGLYCERIDE IS >400 MG/DL Performed By: #### 9 [id number] #### ALIRIO Antono [facility] [place] [address] Cholesterol in VLDL [Mass/Vol] 26 mg/dL Normal 0-40 [facility] Comment on above: Performed By: #### 9 [id number] #### ALIRIO Root[facility]emo [facility] [place] [address] Triglyceride [Mass/Vol] 130 mg/dL Normal 0-149 [facility] Comment on above: Result Comment: AGE DESIRABLE BORDERLINE HIGH 91 D - 9 Y 0 - 74 75 - 99 > 100 10 - 19 Y 0 - 89 90 - 129 > 130 20 -24 Y 0 - 114 115 - 149 > 150 > 25 0 - 149 150 - 199 200 - 499 Performed By: #### 9 [id number] #### ALIRIO RootHemo [address] [place] [address] TSHon 12-29-2018 TSH Qn 1.74 mcIU/mL Normal 0.30-5.60 [facility] Comment on above: Performed By: #### 9 [id number] #### ALIRIO Antono [facility] [place] [address] Vitamin D 25 Hydroxyon 12-29 Vitamin D 25 Hydroxy 68.0 ng/mL Normal 30.0-100.0 [facility] Comment on above: Performed By: #### 9 [id number] #### ALIRIO RootHemo [facility] [place] [address] eGFRon 12-29-2018 GFR/1.73 sq M predicted among non-blacks MDRD (S/P/Bld) [Vol rate/Area] mL/min/{1.73_m2} Normal [facility] Comment on above: Order Comment: Order added by Discern Expert. Performed By: #### 9 [id number] #### ALIRIO Root[facility]emo [facility] [place] [address] Lab Miscellaneouson 11-16-19 19 Status See Ref Lab Report Normal [facility] Comment on above: Performed By: #### 1 [id number] #### ALIRIO RemHemo [address] [place] [address] Auto Diffon 11-13-2018 Basophils (Bld) [#/Vol] 0.0 E3/mcL Normal 0.0-0.2 [facility] Comment on above: Order Comment: Order Added by Discern Expert. Performed By: #### 1 [id number] #### ALIRIO RootHemo [address] [place] [address] Basophils/100 WBC (Bld) 0.7 % Normal 0.0-2.0 [facility] Comment on above: Order Comment: Order Added by Discern Expert. Performed By: #### 1 [id number] #### ALIRIO RemHemo [address] [place] [address] Eos Absolute 0.3 E3/mcL Normal 0.0-0.7 [facility] Comment on above: Order Comment: Order Added by Discern Expert. Performed By: #### 1 [id number] #### ALIRIO RemHemo [address] [place] [address] Eosinophils/100 WBC (Bld) 5.4 % Normal 0.0-11.0 [facility] Comment on above: Order Comment: Order Added by Discern Expert. Performed By: #### 1 [id number] #### ALIRIO RootHemo [address] [place] [address] Lymphocytes (Bld) [#/Vol] 1.9 E3/mcL Normal 1.2-3.4 [facility] Comment on above: Order Comment: Order Added by Discern Expert. Performed By: #### 1 [id number] #### ALIRIO RemHemo [address] [place] [address] Lymphocytes/100 WBC (Bld) 35.1 % Normal 20.0-55.0 [facility] Comment on above: Order Comment: Order Added by Discern Expert. Performed By: #### 1 [id number] #### ALIRIO RemHemo [address] [place] [address] Ashe Absolute 0.4 E3/mcL Normal 0.0-0.7 [facility] Comment on above: Order Comment: Order Added by Discern Expert. Performed By: #### 1 [id number] #### ALIRIO Root[facility]emo [facility] [place] [address] Monocytes/100 WBC (Bld) 7.2 % Normal 0.0-10.0 [facility] Comment on above: Order Comment: Order Added by Discern Expert. Performed By: #### 1 [id number] #### ALIRIO RootHemo [address] [place], [place] [address] Neutro Absolute 2.8 E3/mcL Normal 1.4-6.5 [facility] Comment on above: Order Comment: Order Added by Discern Expert. Performed By: #### 1 [id number] #### ALIRIO RootHemo [address] [place] [address] Neutro Auto 51.6 % Normal 37.0-75.0 [facility] Comment on above: Order Comment: Order Added by Discern Expert. Performed By: #### 1 [id number] #### ALIRIO RootHemo [address] [place], [place] [address] CBC w/ Auto Diffon 9 Erythrocyte distribution width (RBC) [Ratio] 13.9 % Normal 11.5-14.5 [facility] Comment on above: Performed By: #### 1 [id number] #### ALIRIO [place] [id number] Hematocrit (Bld) [Volume fraction] 38.2 % Normal 36.0-48.0 [facility] Comment on above: Performed By: #### 1 [id number] #### ALIRIO Antono [address] [place], [place] [address] Hemoglobin (Bld) [Mass/Vol] 12.6 g/dL Normal 12.0-16.0 [facility] Comment on above: Performed By: #### 1 [id number] #### ALIRIODoreen RootHemo [address] [place], [place] [address] MCH (RBC) [Entitic mass] 31.8 pg High 27.0-31.0 [facility] Comment on above: Performed By: #### 1 [id number] #### ALIRIO RootHemo [address] [place], [place] [address] MCHC (RBC) [Mass/Vol] 32.9 g/dL Low 33.0-37.0 [facility] Comment on above: Performed By: #### 1 [id number] #### ALIRIO Root[facility]emo [facility] [place] [address] MCV (RBC) [Entitic vol] 96.7 fL Normal 78.0-100.0 [facility] Comment on above: Performed By: #### 1 [id number] #### ALIRIO RemHemo [facility] [place] [address] Platelet mean volume (Bld) [Entitic vol] 8.9 fL Normal 7.4-11.0 [facility] Comment on above: Performed By: #### 1 [id number] #### ALIRIO RootHemo [address] [place] [address] Platelets (Bld) [#/Vol] 205 E3/mcL Normal 130-400 [facility] Comment on above: Performed By: #### 1 [id number] #### ALIRIO RootHemo [address] [place] [address] RBC (Bld) [#/Vol] 3.95 E6/mcL Normal 3.90-5.40 [facility] Comment on above: Performed By: #### 1 [id number] #### ALIRIODoreen RootHemo [address] [place] [address] WBC (Bld) [#/Vol] 5.4 E3/mcL Normal 3.6-11.0 [facility] Comment on above: Performed By: #### 1 [id number] #### ALIRIO RemHemo [address] [place] [address] CMPon 11-13-2018 Albumin [Mass/Vol] 3.9 g/dL Normal 3.4-5.0 [facility] Comment on above: Performed By: #### 1 [id number] #### ALIRIODoreen RootHemo [facility] [place] [address] Albumin/Globulin [Mass ratio] 1.9 {ratio} Normal 1.1-1.9 [facility] Comment on above: Performed By: #### 1 [id number] #### ALIRIO RemHemo [facility] [place] [address] Alk Phos 55 Int._Unit/L Normal 33-136 [facility] Comment on above: Performed By: #### 1 [id number] #### ALIRIO RootHemo [address] [place] [address] ALT [Catalytic activity/Vol] 20 Int._Unit/L Normal 7-45 [facility] Comment on above: Performed By: #### 1 [id number] #### ALIRIO RemHemo [address] [place] [address] Anion gap [Moles/Vol] 7 mmol/L Low 10-20 [facility] Comment on above: Performed By: #### 1 [id number] #### ALIRIO RootHemo [facility] [place] [address] AST [Catalytic activity/Vol] 23 Int._Unit/L Normal 9-39 [facility] Comment on above: Performed By: #### 1 [id number] #### ALIRIO RootHemo [address] [place] [address] Bili Total 0.61 mg/dL Normal 0.00-1.20 [facility] Comment on above: Performed By: #### 1 [id number] #### ALIRIO RemHemo [address] [place] [address] Calcium [Mass/Vol] 9.2 mg/dL Normal 8.6-10.3 [facility] Comment on above: Performed By: #### 1 [id number] #### ALIRIO RemHemo [address] [place] [address] Chloride [Moles/Vol] 107 mmol/L Normal 98-107 [facility] Comment on above: Performed By: #### 1 [id number] #### ALIRIO RemHemo [address] [place] [address] CO2 [Moles/Vol] 32.0 mmol/L Normal 21.0-32.[address] [facility] Comment on above: Performed By: #### 1 [id number] #### ALIRIO RemHemo [address] [place] [address] Creatinine [Mass/Vol] 1.0 mg/dL Normal 0.5-1.1 [facility] Comment on above: Performed By: #### 1 [id number] #### ALIRIO Antono [address] [place] [address] Globulin (S) [Mass/Vol] 2.0 g/dL Normal 2.0-4.0 [facility] Comment on above: Performed By: #### 1 [id number] #### ALIRIO Antono [address] [place] [address] Glucose [Mass/Vol] 95 mg/dL Normal 70-99 [facility] Comment on above: Performed By: #### 1 [id number] #### ALIRIO Antono [address] [place] [address] Potassium [Moles/Vol] 4.6 mmol/L Normal 3.5-5.3 [facility] Comment on above: Performed By: #### 1 [id number] #### ALIRIO Antono [facility] [place] [address] Protein [Mass/Vol] 6.0 g/dL Low 6.4-8.2 [facility] Comment on above: Performed By: #### 1 [id number] #### ALIRIO Antono [address] [place] [address] Sodium [Moles/Vol] 141 mmol/L Normal 136-145 [facility] Comment on above: Performed By: #### 1 [id number] #### ALIRIO Antono [address] [place] [address] Urea nitrogen [Mass/Vol] 35 mg/dL High 6-23 [facility] Comment on above: Performed By: #### 1 [id number] #### ALIRIO Antono [address] [place] [address] Urea nitrogen/Creatinin e [Mass ratio] 35.0 ratio High 5.4-30.0 [facility] Comment on above: Performed By: #### 1 [id number] #### ALIRIO Antono [facility] [place] [address] CRPon 11-13-2018 CRP [Mass/Vol] 0.10 mg/dL Normal 0.00-1.00 [facility] Comment on above: Performed By: #### 1 [id number] #### ALIRIO Antono [address] [place] [address] Lab Miscellaneouson 11-14-19 Test Name g6pd quant [facility] Comment on above: Performed By: #### 1 [id number] #### ALIRIO RemHemo [facility] [place] [address] Sed Rate Automatedon 019 Sed Rate Automated 9 mm/hr [facility] Comment on above: Result Comment: AGE- SPECIFIC REFERENCE RANGES FOR SEDIMENTATION RATE AUTOMATED REFERENCE RANGE - MM/HR AGE MEN WOMEN 0-2 0-2 - PUBERTY 3-13 3-13 PUBERTY - 50 YRS 0-15 0-20 > 50 YRS 0-20 0-30 Performed By: #### 1 [id number] #### ALIRIO RemHemo [facility] [place] [address] eGFRon 11-13-2018 GFR/1.73 sq M predicted among non-blacks MDRD (S/P/Bld) [Vol rate/Area] mL/min/{1.73_m2} [facility] Comment on above: Order Comment: Order Added by Discern Expert. Performed By: #### 1 [id number] #### ALIRIO RemHemo [facility] [place] [address] GFR/1.73 sq M predicted among non-blacks MDRD (S/P/Bld) [Vol rate/Area] 59 mL/min/1.73 m2 [facility] Comment on above: Order Comment: Order Added by Discern Expert. Performed By: #### 1 [id number] #### ALIRIO RemHemo [facility] [place] [address] XR Spine Lumbosacral Minimum 4 Viewson 11-02-2018 XR Spine Lumbosacral Minimum 4 Views Exam Date/Time: 11/01/2018 09:28 EDT Reason for Exam: lumbar stenosis Report STUDY: XR Spine Lumbosacral Minimum 4 Views;; 11/01/2018 9:28 am INDICATION: lumbar stenosis. Status post posterior fusion COMPARISON: 04/29/2017 ACCESSION NUMBER(S): [id number] ORDERING CLINICIAN: María Capellan FINDINGS: There is worsening of L2 retrolisthesis, exacerbated on the extension views compared to flexion. Slight L1 retrolisthesis is without significant change. Additional findings are stable including laminectomy and posterior fusion at L4-L5 ,and vertebral plasty changes of the sacrum. No new compression deformity is evident. Incidental findings include a chronic left pelvic deformity and right hip arthroplasty. IMPRESSION: Worsening of L2 retrolisthesis, exacerbated on the extension views compared to flexion. Other findings are without significant change. FINAL REPORT Dictated: 11/02/2018 7:19 am Chet Truong MD Signed (Electronic Signature): 11/02/2018 7:19 am Signed by: Chet Truong MD Technologist: ALEXANDRA [facility] MRI Spine Lumbar w/o Contras ton 07-14-2018 MRI Spine Lumbar w/o Contrast Exam Date/Time: 07/14/2018 08:58 EDT Reason for Exam: LOW BACK PAIN LUMBAR RADICULOPATHY/DDD PT HAS METAL IN RIGHT HIP/LOW BACK/LEFT KNEE;Radiculopathy Report STUDY: MRI Spine Lumbar w/o Contrast; 07/14/2018 8:58 am INDICATION: Radiculopathy. COMPARISON: June 2013. ACCESSION NUMBER(S): [id number] ORDERING CLINICIAN: Jasmine Mathias TECHNIQUE: The lumbar spine was studied in the sagital, axial and coronal planes utiliing T1 and T2 weighted images. FINDINGS: The marrow signal and vertebral body height are normal. The conus and sacrum are normal. Images at each interspace reveal the following: L1/L2 Interval hypertrophy of the left-sided facet joint with associated 5 mm synovial cyst extending into the left lateral recess and neural foramen. Findings best appreciated on axial T2 weighted image . No measurable canal stenosis. Focal narrowing of the lateral recess and neural foramen. L2/L3 Progressive retrolisthesis of L2 upon L3 with associated circumferential bulging intervertebral disc and bilateral facet hypertrophy. Progressive narrowing of the thecal sac due to facet hypertrophy and ligamentum flavum hypertrophy. The thecal sac current Holly measures 7 mm in AP dimension in the midline. Bilateral foraminal narrowing and lateral recess stenosis L3/L4 Bilateral facet hypertrophy and marginal osteophyte formation without canal stenosis. Bilateral foraminal narrowing L4/L5 Status post laminectomy with pedicle screw and plate fixation. No residual canal or foraminal narrowing L5/S1 Status post laminectomy with abnormal signal in the left sacrum unchanged from the previous exam and consistent with previous fracture. And bilateral sacral vertebroplasties. IMPRESSION: *Interval progression of canal stenosis at L1/L2 *Progressive retrolisthesis and canal stenosis at L2/L3 *Postoperative changes in the lumbar spine as described Exam Date/Time: 07/14/2018 08:58 EDT Report *Vertebroplasty changes in the sacrum bilaterally The examination was interpreted [facility] FINAL REPORT Dictated: 07/14/2018 10:28 am Hawk Marquez MD Signed (Electronic Signature): 07/14/2018 10:28 am Signed by: Hawk Marquez MD Technologist: LEANDRO Normal [facility] [place] Mamm Screen w/CAD if perf ormed bilaton 06-30-2018 [place] Mamm Screen w/CAD if performed bilat Exam Date/Time: 06/29/2018 09:52 EDT Reason for Exam: SCREENING;Screening Report STUDY: Digital mammography screening; 06/29/2018 9:52 am ACCESSION NUMBER(S): [id number] ORDERING CLINICIAN: Jasmine Mathias INDICATION: Screening. COMPARISON: Comparison is made to prior digital mammograms dated 12/31/2015 and 11/28/2014 FINDINGS: CC and MLO 2D digital mammographic images of the bilateral breasts were obtained. The breast tissue is almost entirely fatty. No discrete mass or focal asymmetry is identified. No suspicious microcalcifications or foci of architectural distortion are seen. There has been no significant change. This study was interpreted with CAD. IMPRESSION: No mammographic evidence of malignancy. BI-RADS CATEGORY: Category: 1 - Negative. Recommendation: Normal Interval Follow-up, Over Age 40. Recall Interval: 12 Months. Breast Density: Fatty. FINAL REPORT Dictated: 06/30/2018 8:21 am Ezequiel Erickson MD Signed (Electronic Signature): 06/30/2018 8:21 am Signed by: Ezequiel Erickson MD Technologist: ANNAMARIA Assessment: BI-RADS Category 1-Negative Recommendation: Normal interval follow-up Normal [facility] Auto Diffon 06-02-2018 Basophils (Bld) [#/Vol] 0.0 E3/mcL Normal 0.0-0.2 [facility] Comment on above: Order Comment: Order Added by Discern Expert. Performed By: #### 2 [id number] #### ALIRIO RemHemo [address] [place] [address] Basophils/100 WBC (Bld) 0.4 % Normal 0.0-2.0 [facility] Comment on above: Order Comment: Order Added by Discern Expert. Performed By: #### 2 [id number] #### ALIRIO RemHemo [address] [place] [address] Eos Absolute 0.2 E3/mcL Normal 0.0-0.7 [facility] Comment on above: Order Comment: Order Added by Discern Expert. Performed By: #### 2 [id number] #### ALIRIO RemHemo [address] [place] [address] Eosinophils/100 WBC (Bld) 4.2 % Normal 0.0-11.0 [facility] Comment on above: Order Comment: Order Added by Discern Expert. Performed By: #### 2 [id number] #### ALIRIO RemHemo [address] [place] [address] Lymphocytes (Bld) [#/Vol] 1.7 E3/mcL Normal 1.2-3.4 [facility] Comment on above: Order Comment: Order Added by Discern Expert. Performed By: #### 2 [id number] #### ALIRIO RemHemo [address] [place] [address] Lymphocytes/100 WBC (Bld) 30.7 % Normal 20.0-55.0 [facility] Comment on above: Order Comment: Order Added by Discern Expert. Performed By: #### 2 [id number] #### ALIRIO RemHemo [address] [place] [address] Ashe Absolute 0.4 E3/mcL Normal 0.0-0.7 [facility] Comment on above: Order Comment: Order Added by Discern Expert. Performed By: #### 2 [id number] #### ALIRIO RemHemo [address] [place] [address] Monocytes/100 WBC (Bld) 7.6 % Normal 0.0-10.0 [facility] Comment on above: Order Comment: Order Added by Discern Expert. Performed By: #### 2 [id number] #### ALIRIO RemHemo [address] [place] [address] Neutro Absolute 3.1 E3/mcL Normal 1.4-6.5 [facility] Comment on above: Order Comment: Order Added by Discern Expert. Performed By: #### 2 [id number] #### ALIRIO RootHemo [address] [place] [address] Neutro Auto 57.1 % Normal 37.0-75.0 [facility] Comment on above: Order Comment: Order Added by Discern Expert. Performed By: #### 2 [id number] #### ALIRIO RootHemo [address] [place] [address] CBC w/ Auto Diffon Erythrocyte distribution width (RBC) [Ratio] 16.4 % High 11.5-14.5 [facility] Comment on above: Performed By: #### 2 [id number] #### ALIRIO RootHemo [address] [place] [address] Hematocrit (Bld) [Volume fraction] 38.6 % Normal 36.0-48.0 [facility] Comment on above: Performed By: #### 2 [id number] #### ALIRIO RootHemo [address] [place] [address] Hemoglobin (Bld) [Mass/Vol] 12.7 g/dL Normal 12.0-16.0 [facility] Comment on above: Performed By: #### 2 [id number] #### ALIRIO RootHemo [address] [place] [address] MCH (RBC) [Entitic mass] 30.2 pg Normal 27.0-31.0 [facility] Comment on above: Performed By: #### 2 [id number] #### ALIRIO RemHemo [address] [place] [address] MCHC (RBC) [Mass/Vol] 32.8 g/dL Low 33.0-37.0 [facility] Comment on above: Performed By: #### 2 [id number] #### ALIRIO RemHemo [address] [place] [address] MCV (RBC) [Entitic vol] 92.3 fL Normal 78.0-100.0 [facility] Comment on above: Performed By: #### 2 [id number] #### ALIRIO RemHemo [address] [place] [address] Platelet mean volume (Bld) [Entitic vol] 9.4 fL Normal 7.4-11.0 [facility] Comment on above: Performed By: #### 2 [id number] #### ALIRIO RemHemo [address] [place] [address] Platelets (Bld) [#/Vol] 206 E3/mcL Normal 130-400 [facility] Comment on above: Performed By: #### 2 [id number] #### ALIRIO RemHemo [address] [place] [address] RBC (Bld) [#/Vol] 4.19 E6/mcL Normal 3.90-5.40 [facility] Comment on above: Performed By: #### 2 [id number] #### ALIRIO RemHemo [address] [place] [address] WBC (Bld) [#/Vol] 5.4 E3/mcL Normal 3.6-11.0 [facility] Comment on above: Performed By: #### 2 [id number] #### ALIRIO RemHemo [facility] [place] [address] CMPon 06-02-2018 Albumin [Mass/Vol] 4.2 g/dL Normal 3.4-5.0 [facility] Comment on above: Performed By: #### 2 [id number] #### ALIRIO [employer] [address] [place] [address] Albumin/Globulin [Mass ratio] 2.1 {ratio} High 1.1-1.9 [facility] Comment on above: Performed By: #### 2 [id number] #### ALIRIO [employer] [facility] [place] [address] Alk Phos 53 Int._Unit/L Normal 33-136 [facility] Comment on above: Performed By: #### 2 [id number] #### ALIRIO [employer] [facility] [place] [address] ALT [Catalytic activity/Vol] 23 Int._Unit/L Normal 7-45 [facility] Comment on above: Performed By: #### 2 [id number] #### ALIRIO [employer] [address] [place] [address] Anion gap [Moles/Vol] 10 mmol/L Normal 10-20 [facility] Comment on above: Performed By: #### 2 [id number] #### [employer] [address] [place] [address] 25115 AST [Catalytic activity/Vol] 24 Int._Unit/L Normal 9-39 [facility] Comment on above: Performed By: #### 2 [id number] #### [employer] [address] [place] [address] Bili Total 0.73 mg/dL Normal 0.00-1.20 [facility] Comment on above: Performed By: #### 2 [id number] #### [employer] [address] [place] [address] Calcium [Mass/Vol] 9.5 mg/dL Normal 8.6-10.3 [facility] Comment on above: Performed By: #### 2 [id number] #### [employer] [address] [place], [place] [id number] Chloride [Moles/Vol] 107 mmol/L Normal 98-107 [facility] Comment on above: Performed By: #### 2 [id number] #### [facility] [employer] [address] [place], [place] [id number] CO2 [Moles/Vol] 30.0 mmol/L Normal 21.0-32.[address] [facility] Comment on above: Performed By: #### 2 [id number] #### [employer] [address] [place] [address] 98155 Creatinine [Mass/Vol] 0.8 mg/dL Normal 0.5-1.1 [facility] Comment on above: Performed By: #### 2 [id number] #### [employer] [address] [place] [address] 91412 Globulin (S) [Mass/Vol] 2.0 g/dL Normal 2.0-4.0 [facility] Comment on above: Performed By: #### 2 [id number] #### [employer] [address] [place] [address] 24533 Glucose [Mass/Vol] 100 mg/dL High 70-99 [facility] Comment on above: Performed By: #### 2 [id number] #### [employer] [address] [place] [address] Potassium [Moles/Vol] 4.1 mmol/L Normal 3.5-5.3 [facility] Comment on above: Performed By: #### 2 [id number] #### [employer] [address] [place] [address]331 Protein [Mass/Vol] 6.2 g/dL Low 6.4-8.2 [facility] Comment on above: Performed By: #### 2 [id number] #### [employer] [address] [place] [address] 86334 Sodium [Moles/Vol] 143 mmol/L Normal 136-145 [facility] Comment on above: Performed By: #### 2 [id number] #### [employer] [address] [place] [address] 77950 Urea nitrogen [Mass/Vol] 29 mg/dL High 6-23 [facility] Comment on above: Performed By: #### 2 [id number] #### [employer] [address] [place] [address] 00699 Urea nitrogen/Creatinin e [Mass ratio] 36.2 ratio High 5.4-30.0 [facility] Comment on above: Performed By: #### 2 [id number] #### [employer] [address] [place] [address] 14805 Lipid Profileon 06-02-2018 Cholesterol [Mass/Vol] 131 mg/dL Normal 0-199 [facility] Comment on above: Result Comment: TOTA L CHOLEESTEROL: <200 NORMAL 200 - 239 BORDERLINE HIGH >240 HIGH Performed By: #### 3 [id number] #### [employer] [address] [place] [address] 23187 Cholesterol in HDL [Mass/Vol] 57 mg/dL Normal 40-60 [facility] Comment on above: Performed By: #### 3 [id number] #### [employer] [address] [place] [address] 05753 Cholesterol in LDL [Mass/Vol] 51 mg/dL Normal 0-130 [facility] Comment on above: Result Comment: <100 OPTIMAL 100-129 NEAR / ABOVE OPTIMAL 130-159 BORDERLINE HIGH 160-189 HIGH >190 VERY HIGH CALC LDL NOT VALID WHEN TRIGLYCERIDE IS >400 MG/DL Performed By: #### 3 [id number] #### [employer] [address] [place] [address]605 Cholesterol in VLDL [Mass/Vol] 23 mg/dL Normal 0-40 [facility] Comment on above: Performed By: #### 3 [id number] #### [facility] [employer] [facility] [place] [address] Triglyceride [Mass/Vol] 113 mg/dL Normal 0-149 [facility] Comment on above: Result Comment: AGE DESIRABLE BORDERLINE HIGH 91 D - 9 Y 0 - 74 75 - 99 > 100 10 - 19 Y 0 - 89 90 - 129 > 130 20 -24 Y 0 - 114 115 - 149 > 150 > 25 0 - 149 150 - 199 200 - 499 Performed By: #### 3 [id number] #### [employer] [address] [place] [address] 14566 TSHon 06-02-2018 TSH Qn 2.66 mcIU/mL Normal 0.30-5.60 [facility] Comment on above: Performed By: #### 2 [id number] #### ALIRIO RemSmithers Avanza [facility] [place] [address] eGFRon 06-02-2018 GFR/1.73 sq M predicted among non-blacks MDRD (S/P/Bld) [Vol rate/Area] mL/min/{1.73_m2} Normal [facility] Comment on above: Order Comment: Order added by Discern Expert. Performed By: #### 1 [id number] #### ALIRIO RemSmithers Avanza [address] [place] [address] 30785 SURGon 03-13-2018 SURG .1Patient Name: PATEL NARENDRA Georgina for Corrected Report [id number]: Results of immunohistochemistry 03/15/2018 Source Lymph node biopsy, Periaortic Clinical History Hiatal Hernia Hill Grade 4, Gastroesophageal Reflux Disease Diagnosis Reactive lymphoid hyperplasia. COMMENT: Immunohistochemical stains for CD3 and CD20 highlights a normal distribution of T lymphocytes and B lymphocytes, supportive of the diagnosis. JF;lat Diagnosis Comment The final diagnosis is pending results of immunohistochemical analysis. Gross Description The specimen received in formalin labeled periaortic lymph node consists of a yellow and pink 2.6 x 0.5 x 0.4 cm fragment. Serially sectioned and ET 1 block. JF;lat (APL/lt) Electronically Signed By Dejan Yañez MD , Pathologist (Case signed 03/16/2018) Normal [facility] Auto Diffon 02-10-2018 Basophils (Bld) [#/Vol] 0.1 E3/mcL Normal 0.0-0.2 [facility] Comment on above: Order Comment: Order Added by Discern Expert. Performed By: #### 2 [id number] #### ALIRIO RemHemo [address] [place] [address] Basophils/100 WBC (Bld) 1.2 % Normal 0.0-2.0 [facility] Comment on above: Order Comment: Order Added by Discern Expert. Performed By: #### 2 [id number] #### ALIRIO RemHemo [address] [place] [address] Eos Absolute 0.3 E3/mcL Normal 0.0-0.7 [facility] Comment on above: Order Comment: Order Added by Discern Expert. Performed By: #### 2 [id number] #### ALIRIO RemH[employer] [address] [place] [address] Eosinophils/100 WBC (Bld) 2.8 % Normal 0.0-11.0 [facility] Comment on above: Order Comment: Order Added by Discern Expert. Performed By: #### 2 [id number] #### ALIRIO RemHemo [address] [place] [address] Lymphocytes (Bld) [#/Vol] 2.2 E3/mcL Normal 1.2-3.4 [facility] Comment on above: Order Comment: Order Added by Discern Expert. Performed By: #### 2 [id number] #### ALIRIO RemHemo [address] [place] [address] Lymphocytes/100 WBC (Bld) 24.2 % Normal 20.0-55.0 [facility] Comment on above: Order Comment: Order Added by Discern Expert. Performed By: #### 2 [id number] #### ALIRIO RemHemo [address] [place] [address] Ashe Absolute 0.6 E3/mcL Normal 0.0-0.7 [facility] Comment on above: Order Comment: Order Added by Discern Expert. Performed By: #### 2 [id number] #### ALIRIO RootHemo [address] [place] [address] Monocytes/100 WBC (Bld) 6.7 % Normal 0.0-10.0 [facility] Comment on above: Order Comment: Order Added by Discern Expert. Performed By: #### 2 [id number] #### ALIRIO RootHemo [address] [place] [address] 24409 Neutro Absolute 6.0 E3/mcL Normal 1.4-6.5 [facility] Comment on above: Order Comment: Order Added by Discern Expert. Performed By: #### 2 [id number] #### ALIRIO RootH[employer] [address] [place] [address] 50919 Neutro Auto 65.1 % Normal 37.0-75.0 [facility] Comment on above: Order Comment: Order Added by Discern Expert. Performed By: #### 2 [id number] #### ALIR[employer] [address] [place] [address] 76538 CBC w/ Auto Diffon 8 Erythrocyte distribution width (RBC) [Ratio] 23.5 % High 11.5-14.5 [facility] Comment on above: Performed By: #### 2 [id number] #### ALIRIO IvettHemo [address] [place] [address] 66285 Hematocrit (Bld) [Volume fraction] 38.0 % Normal 36.0-48.0 [facility] Comment on above: Performed By: #### 2 [id number] #### ALIRIO RootH[employer] [address] [place] [address] 26057 Hemoglobin (Bld) [Mass/Vol] 12.1 g/dL Normal 12.0-16.0 [facility] Comment on above: Performed By: #### 2 [id number] #### ALIRIO IvettHemo [address] [place] [address] MCH (RBC) [Entitic mass] 26.5 pg Low 27.0-31.0 [facility] Comment on above: Performed By: #### 2 [id number] #### ALIRIO RemHemo [address] [place] [address] MCHC (RBC) [Mass/Vol] 31.8 g/dL Low 33.0-37.0 [facility] Comment on above: Performed By: #### 2 [id number] #### ALIRIO RemHemo [address] [place] [address] MCV (RBC) [Entitic vol] 83.3 fL Normal 78.0-100.0 [facility] Comment on above: Performed By: #### 2 [id number] #### ALIRIO RemHemo [address] [place] [address] Platelet mean volume (Bld) [Entitic vol] 8.7 fL Normal 7.4-11.0 [facility] Comment on above: Performed By: #### 2 [id number] #### ALIRIO RemHemo [address] [place] [address] Platelets (Bld) [#/Vol] 276 E3/mcL Normal 130-400 [facility] Comment on above: Performed By: #### 2 [id number] #### ALIRIO RemH[employer] [address] [place] [address] RBC (Bld) [#/Vol] 4.57 E6/mcL Normal 3.90-5.40 [facility] Comment on above: Performed By: #### 2 [id number] #### ALIRIO Rem[employer] [address] [place] [address] WBC (Bld) [#/Vol] 9.2 E3/mcL Normal 3.6-11.0 [facility] Comment on above: Performed By: #### 2 [id number] #### ALIRIO Rem[employer] [address] [place] [address] Morphon 02-10-2018 Anisocytosis Ql (Bld) 2+ Normal [facility] Comment on above: Order Comment: Order Added by Discern Expert. Performed By: #### 1 [id number] #### ALIRIO RemHemo [address] [place] [address] Elliptocytes 1+ Normal [facility] Comment on above: Order Comment: Order Added by Discern Expert. Performed By: #### 1 [id number] #### ALIRIO RootHemo [facility] [place] [address] Hypochromasia 1+ Normal [facility] Comment on above: Order Comment: Order Added by Discern Expert. Performed By: #### 1 [id number] #### ALIRIO RootHemo [facility] [place] [address] Poikilocytosis 1+ Normal [facility] Comment on above: Order Comment: Order Added by Discern Expert. Performed By: #### 1 [id number] #### ALIRIO RootHemo [facility] [place] [address] RBC morphology finding Nom (Bld) SEE MORPHOLOGY Normal [facility] Comment on above: Order Comment: Order Added by Discern Expert. Performed By: #### 1 [id number] #### ALIRIO RootH[employer] [address] [place] [address] Teardrop Cell 1+ Normal [facility] Comment on above: Order Comment: Order Added by Discern Expert. Performed By: #### 1 [id number] #### ALIRIO RootHemo [address] [place] [address] zzplt morphon 02-10-2018 Platelet morphology finding Nom (Bld) NORMAL Normal [facility] Comment on above: Performed By: #### 9 [id number] #### [facility] [address] [place] [address] Platelets (Bld) [#/Vol] NORMAL Normal [facility] Comment on above: Performed By: #### 9 [id number] #### ALIRIO RootHemo [address] [place] [address] SURGon 11-15-2017 SURG Name: NARENDRA ARGUELLES Lynnejillian A. Stomach/gastric, Antrum, biopsy B. Stomach/gastric, Body, biopsy Clinical History Hiatal hernia hill grade 4 type 3 paraesophageal, GERD Diagnosis A. Antral-type mucosa with mild chronic inactive gastritis. No H. pylori-like organisms identified. Negative for intestinal metaplasia and dysplasia. B. Fundic-type mucosa without diagnostic abnormality. Gross Description A. The specimen received in formalin is a fragment measuring 0.3 x 0.2 x 0.2 cm. Totally submitted in one cassette. B. The specimen received in formalin is a fragment measuring 0.5 x 0.2 x 0.3 cm. Totally submitted in one cassette. CS/arj (ICT/arj) Electronically Signed By David Jack DO , Pathologist (Case signed 11/16/2017) [facility] SURGon 08-16-2017 SURG Name: NARENDRA ARGUELLES Esophagus, biopsy, 34 cm Clinical History Heartburn, Hiatal Hernia Hill Grade 4, Distal Esophagus Mass Diagnosis Ulcer and polypoid granulation tissue COMMENT: A PAS stain is negative for fungal microorganisms. There is no evidence of malignancy in this biopsy. Endoscopic correlation is suggested. Gross Description Received in formalin are multiple fragments measuring in aggregate 0.6 x 0.4 x 0.4 cm. ET 1 block. CS/arj (ICT/arj) Electronically Signed By Thomas Wilder MD , Pathologist (Case signed 08/17/2017) [facility] Vital Signs Date Time Vital Sign Value Performing Clinician Facility 09-14-2024 08:32-0400 Diastolic blood pressure 76 mm[Hg] Bar Triana Jr., DPM Work Phone: [facility] 09-14-2024 08:32-0400 Heart rate 80 /min Bar Triana Jr., DPM Work Phone: [facility] 09-14-2024 08:32-0400 Systolic blood pressure 130 mm[Hg] Bar Triana Jr., DPM Work Phone: [facility] 09-14-2024 08:02-0400 Body temperature 97.7 [degF] Bar Triana Jr., DPM Work Phone: [facility] 09-10-2024 18:42-0400 Diastolic blood pressure 56 mm[Hg] Sanjuana Negar DO Work Phone: [facility] 09-10-2024 18:42-0400 Heart rate 83 /min Sanjuana Negar DO Work Phone: [facility] 09-10-2024 18:42-0400 Respiratory rate 16 /min Sanjuana Negar DO Work Phone: [facility] 09-10-2024 18:42-0400 SaO2% (BldA) [Mass fraction] 100 % Sanjuana Bills DO Work Phone: [facility] 09-10-2024 18:42-0400 Systolic blood pressure 122 mm[Hg] Sanjuana Bills DO Work Phone: [facility] 09-10-2024 16:54-0400 Body temperature 98.2 [degF] Sanjuana Blils DO Work Phone: [facility] 09-10-2024 16:53-0400 Body mass index (BMI) [Ratio] 38.36 kg/m2 Sanjuana Bills DO Work Phone: [facility] 09-10-2024 16:53-0400 Body weight 92.08 kg Sanjuana Bills DO Work Phone: [facility] 09-07-2024 09:30-0400 Body height 154.[address] Jasmine Mathias MD Work Phone: [facility] 09-07-2024 09:30-0400 Body mass index (BMI) [Ratio] 38.3 kg/m2 Dr. Jasmine Mathias MD Work Phone: [facility] 09-07-2024 09:30-0400 Body weight 92.[address] Jasmine Mathias MD Work Phone: [facility] 08-31-2024 16:07-0400 Body mass index (BMI) [Ratio] 38.55 kg/m2 Jasmine Mathias MD Work Phone: [facility] 08-31-2024 16:07-0400 Body weight 92.53 kg Jasmine Mathias MD Work Phone: [facility] 08-31-2024 16:07-0400 Diastolic blood pressure 82 mm[Hg] Jasmine Mathias MD Work Phone: [facility] 08-31-2024 16:07-0400 Heart rate 90 /min Jasmine Mathias MD Work Phone: [facility] 08-31-2024 16:07-0400 Systolic blood pressure 138 mm[Hg] Jasmine Mathias MD Work Phone: [facility] 08-24-2024 14:43-0400 Body temperature 98.01 [degF] Bar Triana Jr., DPM Work Phone: [facility] 08-24-2024 14:43-0400 Diastolic blood pressure 80 mm[Hg] Bar Kong Jr., DPM Work Phone: [facility] 08-24-2024 14:43-0400 Heart rate 92 /min Bar Triana Jr., DPM Work Phone: [facility] 08-24-2024 14:43-0400 Systolic blood pressure 119 mm[Hg] Bar Triana Jr., DPM Work Phone: [facility] 08-10-2024 09:34-0400 Body height 154.[address] Jasmine Mathias MD Work Phone: [facility] 08-10-2024 09:34-0400 Body mass index (BMI) [Ratio] 38.5 kg/m2 Dr. Jasmine Mathias MD Work Phone: [facility] 08-10-2024 09:34-0400 Body weight 92.[address] Jasmine Mathias MD Work Phone: [facility] 07-16-2024 08:49-0400 Body height 154.9 cm Celeste JOHNSON Work Phone: [facility] 07-16-2024 08:49-0400 Body mass index (BMI) [Ratio] 38.92 kg/m2 Celeste JOHNSON Work Phone: [facility] 07-16-2024 08:49-0400 Body weight 93.44 kg Celeste Moran MANAGER [employer] Work Phone: [facility] 07-16-2024 08:49-0400 Diastolic blood pressure 96 mm[Hg] Celeste Moran MANAGER [employer] Work Phone: [facility] 07-16-2024 08:49-0400 Heart rate 84 /min Celeste Moran MANAGER [employer] Work Phone: [facility] 07-16-2024 08:49-0400 Respiratory rate 18 /min Celestekassi Moran MANAGER [employer]GAN[employer]ATIONAL[employer] Work Phone: [facility] 07-16-2024 08:49-0400 Systolic blood pressure 154 mm[Hg] Celestekassi Vargasley MANAGER [employer] Work Phone: [facility] 06-26-2024 11:42-0400 Body mass index (BMI) [Ratio] 40.06 kg/m2 Jasmine Mathias MD Work Phone: [facility] 06-26-2024 11:42-0400 Body weight 96.16 kg Jasmine Mathias MD Work Phone: [facility] 06-26-2024 11:42-0400 Diastolic blood pressure 64 mm[Hg] Jasmine Mathias MD Work Phone: [facility] 06-26-2024 11:42-0400 Heart rate 89 /min Jasmine Mathias MD Work Phone: [facility] 06-26-2024 11:42-0400 SaO2% (BldA) [Mass fraction] 93 % Jasmine Mathias MD Work Phone: [facility] 06-26-2024 11:42-0400 Systolic blood pressure 142 mm[Hg] Jasmine Mathias MD Work Phone: [facility] 06-25-2024 10:08-0400 Body height 154.9 cm Celeste Dean MANAGER [employer] Work Phone: [facility] 06-25-2024 10:08-0400 Body mass index (BMI) [Ratio] 40.43 kg/m2 Celeste Moran MANAGER [employer] Work Phone: [facility] 06-25-2024 10:08-0400 Body weight 97.07 kg Celeste Moran MANAGER [employer] Work Phone: [facility] 06-25-2024 10:08-0400 Diastolic blood pressure 79 mm[Hg] Celeste Moran MANAGER [employer] Work Phone: [facility] 06-25-2024 10:08-0400 Heart rate 73 /min Celeste Moran MANAGER [employer] Work Phone: [facility] 06-25-2024 10:08-0400 Respiratory rate 18 /min Celeste Moran MANAGER [employer] Work Phone: [facility] 06-25-2024 10:08-0400 Systolic blood pressure 141 mm[Hg] Celeste Moran MANAGER [employer] Work Phone: [facility] 06-06-2024 11:32-0400 Diastolic blood pressure 84 mm[Hg] [facility] 02 [facility] 06-06-2024 11:32-0400 Heart rate 65 /min [address] 06-06-2024 11:32-0400 Respiratory rate 20 /min [address] 06-06-2024 11:32-0400 SaO2% (BldA) [Mass fraction] 95 % [facility] 02 [facility] 06-06-2024 11:32-0400 Systolic blood pressure 145 mm[Hg] [facility] 02 [facility] 06-06-2024 11:02-0400 Body temperature 97.59 [degF] [facility] 02 [facility] 06-06-2024 09:46-0400 Body height 154.[address] 06-06-2024 09:46-0400 Body mass index (BMI) [Ratio] 38.55 kg/m2 [facility] 02 [facility] 06-06-2024 09:46-0400 Body weight 92.53 kg [facility] 02 [facility] 05-21-2024 09:55-0500 Body height 154.9 cm Jasmine Mathias MD Work Phone: [facility] 05-21-2024 09:55-0500 Body mass index (BMI) [Ratio] 38.73 kg/m2 Jasmine Mathias MD Work Phone: [facility] 05-21-2024 09:55-0500 Body weight 92.99 kg Jasmine Mathias MD Work Phone: [facility] 05-21-2024 09:55-0500 Diastolic blood pressure 84 mm[Hg] Jasmine Mathias MD Work Phone: [facility] 05-21-2024 09:55-0500 Heart rate 83 /min Jasmine Mathias MD Work Phone: [facility] 05-21-2024 09:55-0500 SaO2% (BldA) [Mass fraction] 96 % Jasmine Mathias MD Work Phone: [facility] 05-21-2024 09:55-0500 Systolic blood pressure 112 mm[Hg] Jasmine Mathias MD Work Phone: [facility] 05-14-2024 09:47-0500 Body height 154.9 cm Jasmine Mathias MD Work Phone: [facility] 05-14-2024 09:47-0500 Body mass index (BMI) [Ratio] 38.94 kg/m2 Jasmine Mathias MD Work Phone: [facility] 05-14-2024 09:47-0500 Body weight 93.49 kg Jasmine Mathias MD Work Phone: [facility] 05-14-2024 09:47-0500 Diastolic blood pressure 74 mm[Hg] Jasmine Mathias MD Work Phone: [facility] 05-14-2024 09:47-0500 Heart rate 88 /min Jasmine Mathias MD Work Phone: [facility] 05-14-2024 09:47-0500 SaO2% (BldA) [Mass fraction] 98 % Jasmine Mathias MD Work Phone: [facility] 05-14-2024 09:47-0500 Systolic blood pressure 122 mm[Hg] Jasmine Mathias MD Work Phone: [facility] 05-07-2024 09:21-0500 Body height 154.9 cm Nena Gardnerenigualberto MANAGER [employer] Work Phone: [facility] 05-07-2024 09:21-0500 Body mass index (BMI) [Ratio] 39.3 kg/m2 Nena Gardnerenigualberto MANAGER [employer] Work Phone: [facility] 05-07-2024 09:21-0500 Body temperature 97.5 [degF] Nena Gardnerenigualberto MANAGER [employer] Work Phone: [facility] 05-07-2024 09:21-0500 Body weight 94.35 kg Nena Gardnerenigualberto MANAGER [employer] Work Phone: [facility] 05-07-2024 09:21-0500 Diastolic blood pressure 80 mm[Hg] Nena Gardnerenigualberto MANAGER [employer] Work Phone: [facility] 05-07-2024 09:21-0500 Heart rate 88 /min Nena Aguilar MANAGER [employer] Work Phone: [facility] 05-07-2024 09:21-0500 Respiratory rate 20 /min Nena Aguilar MANAGER [employer] Work Phone: [facility] 05-07-2024 09:21-0500 SaO2% (BldA) [Mass fraction] 99 % Nena Gardnerenigualberto MANAGER [employer] Work Phone: [facility] 05-07-2024 09:21-0500 Systolic blood pressure 134 mm[Hg] Nena Aguilar [employer]ER [employer]ELER Work Phone: [facility] 04-11-2024 07:59-0500 Body mass index (BMI) [Ratio] 39.3 kg/m2 Mauricio Mancilla PA-C Work Phone: [facility] 04-11-2024 07:59-0500 Body weight 94.35 kg Mauricio Mancilla PA-C Work Phone: [facility] 04-11-2024 07:59-0500 Diastolic blood pressure 81 mm[Hg] Mauricio Mancilla PA-C Work Phone: [facility] 04-11-2024 07:59-0500 Heart rate 91 /min Mauricio Mancilla PA-C Work Phone: [facility] 04-11-2024 07:59-0500 Respiratory rate 16 /min Mauricio Mancilla PA-C Work Phone: [facility] 04-11-2024 07:59-0500 Systolic blood pressure 144 mm[Hg] Mauricio Mancilla PA-C Work Phone: [facility] 04-04-2024 13:58-0500 Body height 154.9 cm Jordan Espinoza P[employer]ER REELER Work Phone: [facility] 04-04-2024 13:58-0500 Body mass index (BMI) [Ratio] 39.11 kg/m2 Jordan Espinoza P[employer]ER [employer]ER Work Phone: [facility] 04-04-2024 13:58-0500 Body weight 93.89 kg Jordan Espinoza CNP Work Phone: [facility] 03-12-2024 10:53-0500 Body height 154.9 cm Jasmine Mathias MD Work Phone: [facility] 03-12-2024 10:53-0500 Body mass index (BMI) [Ratio] 39.11 kg/m2 Jasmine Mathias MD Work Phone: [facility] 03-12-2024 10:53-0500 Body weight 93.89 kg Jasmine Mathias MD Work Phone: [facility] 03-12-2024 10:53-0500 Diastolic blood pressure 78 mm[Hg] Jasmine Mathias MD Work Phone: [facility] 03-12-2024 10:53-0500 Heart rate 96 /min Jasmine Mathias MD Work Phone: [facility] 03-12-2024 10:53-0500 SaO2% (BldA) [Mass fraction] 96 % Jasmine Mathias MD Work Phone: [facility] 03-12-2024 10:53-0500 Systolic blood pressure 126 mm[Hg] Jasmine Mathias MD Work Phone: [facility] 02-17-2024 08:31-0500 Body height 154 cm Mary Carmen Tovar MD Work Phone: [facility] 02-17-2024 08:31-0500 Body mass index (BMI) [Ratio] 39.51 kg/m2 Mary Carmen Tovar MD Work Phone: [facility] 02-17-2024 08:31-0500 Body weight 93.71 kg Mary Carmen Tovar MD Work Phone: [facility] 02-17-2024 08:31-0500 Diastolic blood pressure 82 mm[Hg] Mary Carmen Tovar MD Work Phone: [facility] 02-17-2024 08:31-0500 Heart rate 86 /min Mary Carm[facility]ar [facility] 02-17-2024 08:31-0500 Respiratory rate 16 /min Mary Carmen Tovar MD Work Phone: [facility] 02-17-2024 08:31-0500 Systolic blood pressure 126 mm[Hg] Mary Carmen Tovar MD Work Phone: [employer] [facility] 02-02-2024 08:51-0500 Diastolic blood pressure 87 mm[Hg] Mauricio Mancilla PA-C Work Phone: [facility] 02-02-2024 08:51-0500 Heart rate 72 /min Mauricio Mancilla PA-C Work Phone: [facility] 02-02-2024 08:51-0500 Respiratory rate 20 /min Mauricio Mancilla PA-C Work Phone: [facility] 02-02-2024 08:51-0500 Systolic blood pressure 144 mm[Hg] Mauricio Mancilla PA-C Work Phone: [facility] 01-30-2024 16:10-0500 Body height 154.9 cm Jasmine Mathias MD Work Phone: [facility] 01-30-2024 16:10-0500 Body mass index (BMI) [Ratio] 39.09 kg/m2 Jasmine Mathias MD Work Phone: [facility] 01-30-2024 16:10-0500 Body weight 93.85 kg Jasmine Mathias MD Work Phone: [facility] 01-30-2024 16:10-0500 Diastolic blood pressure 80 mm[Hg] Jasmine Mathias MD Work Phone: [facility] 01-30-2024 16:10-0500 Heart rate 104 /min Jasmine Mathias MD Work Phone: [facility] 01-30-2024 16:10-0500 SaO2% (BldA) [Mass fraction] 100 % Jasmine Mathias MD Work Phone: [facility] 01-30-2024 16:10-0500 Systolic blood pressure 118 mm[Hg] Jasmine Mathias MD Work Phone: [facility] 12-30-2023 09:19-0400 Body height 154.9 cm Shweta Maykel MANAGER [employer]GANIZATIONAL[employer] Work Phone: [facility] 12-30-2023 09:19-0400 Body mass index (BMI) [Ratio] 37.79 kg/m2 Shweta Beyerta MANAGER ORGANIZATIONAL[employer]ER [employer]ER Work Phone: [facility] 12-30-2023 09:19-0400 Body temperature 97.81 [degF] Shweta Beyerta MANAGER ORGANIZATIONAL[employer]ER Work Phone: [facility] 12-30-2023 09:19-0400 Body weight 90.72 kg Shweta Beyerta MANAGER [employer]GANIZATIONAL[employer] Work Phone: [facility] 12-30-2023 09:19-0400 Diastolic blood pressure 82 mm[Hg] Shweta Beyerta MANAGER ORGANIZATIONAL[employer] Work Phone: [facility] 12-30-2023 09:19-0400 Heart rate 79 /min Shweta Beyerta MANAGER ORGANIZATIONAL[employer]ER Work Phone: [facility] 12-30-2023 09:19-0400 Respiratory rate 14 /min Shweta Beyerta MANAGER ORGANIZATIONAL-[employer]ER [employer]ER Work Phone: [facility] 12-30-2023 09:19-0400 SaO2% (BldA) [Mass fraction] 98 % Shweta Beyerta MANAGER ORGANIZATIONAL[employer]ER Work Phone: [facility] 12-30-2023 09:19-0400 Systolic blood pressure 128 mm[Hg] Shweta Beyerta MANAGER [employer]GANIZATIONAL[employer]ER Work Phone: [facility] 12-27-2023 15:13-0400 Body height 154.9 cm Jasmine Mathias MD Work Phone: [facility] 12-27-2023 15:13-0400 Body mass index (BMI) [Ratio] 38.56 kg/m2 Jasmine Mathias MD Work Phone: [facility] 12-27-2023 15:13-0400 Body weight 92.58 kg Jasmine Mathias MD Work Phone: [facility] 12-27-2023 15:13-0400 Diastolic blood pressure 78 mm[Hg] Jasmine Mathias MD Work Phone: [facility] 12-27-2023 15:13-0400 Heart rate 78 /min Jasmine Mathias MD Work Phone: [facility] 12-27-2023 15:13-0400 SaO2% (BldA) [Mass fraction] 95 % Jasmine Mathias MD Work Phone: [facility] 12-27-2023 15:13-0400 Systolic blood pressure 134 mm[Hg] Jasmine Mathias MD Work Phone: [facility] 12-12-2023 13:15-0400 Body height 154.9 cm Bryan Luz MD Work Phone: [facility] 12-12-2023 13:15-0400 Body mass index (BMI) [Ratio] 38.28 kg/m2 Bryan Luz MD Work Phone: [facility] 12-12-2023 13:15-0400 Body weight 91.9 kg Bryan Luz MD Work Phone: [facility] 12-12-2023 13:15-0400 Diastolic blood pressure 76 mm[Hg] Bryan Luz MD Work Phone: [facility] 12-12-2023 13:15-0400 Heart rate 69 /min Bryan Luz MD Work Phone: [facility] 12-12-2023 13:15-0400 Systolic blood pressure 122 mm[Hg] Bryan Luz MD Work Phone: [facility] 11-17-2023 13:54-0400 Body height 154.9 cm Mauricio Mancilla PA-C Work Phone: [facility] 11-17-2023 13:54-0400 Body mass index (BMI) [Ratio] 36.66 kg/m2 Mauricio Mancilla PA-C Work Phone: [facility] 11-17-2023 13:54-0400 Body weight 88 kg Mauricio Mancilla PA-C Work Phone: [facility] 11-17-2023 13:54-0400 Diastolic blood pressure 79 mm[Hg] Mauricio Mancilla PA-C Work Phone: [facility] 11-17-2023 13:54-0400 Heart rate 84 /min Mauricio Mancilla PA-C Work Phone: [facility] 11-17-2023 13:54-0400 Respiratory rate 20 /min Mauricio Mancilla PA-C Work Phone: [facility] 11-17-2023 13:54-0400 Systolic blood pressure 138 mm[Hg] Mauriciodeangelo Mancilla PA-C Work Phone: [facility] 11-10-2023 09:05-0400 Body height 154.9 cm Jasmine Mathias MD Work Phone: [facility] 11-10-2023 09:05-0400 Body mass index (BMI) [Ratio] 36.49 kg/m2 Jasmine Mathias MD Work Phone: [facility] 11-10-2023 09:05-0400 Body weight 87.59 kg Jasimne Mathias MD Work Phone: [facility] 11-10-2023 09:05-0400 Diastolic blood pressure 82 mm[Hg] Jasmine Mathias MD Work Phone: [facility] 11-10-2023 09:05-0400 Heart rate 93 /min Jasmine Mathias MD Work Phone: [facility] 11-10-2023 09:05-0400 SaO2% (BldA) [Mass fraction] 100 % Jasmine Mathias MD Work Phone: [facility] 11-10-2023 09:05-0400 Systolic blood pressure 140 mm[Hg] Jasmine Mathias MD Work Phone: [facility] 09-22-2023 12:48-0400 Body mass index (BMI) [Ratio] 36.66 kg/m2 Mauricio Mancilla PA-C Work Phone: [facility] 09-22-2023 12:48-0400 Body weight 88 kg Mauricio Mancilla PA-C Work Phone: [facility] 09-22-2023 12:48-0400 Diastolic blood pressure 84 mm[Hg] Mauricio Mancilla PA-C Work Phone: [facility] 09-22-2023 12:48-0400 Heart rate 105 /min Mauricio Mancilla PA-C Work Phone: [facility] 09-22-2023 12:48-0400 Systolic blood pressure 132 mm[Hg] Mauricio Mancilla PA-C Work Phone: [facility] 08-26-2023 12:10-0400 Body mass index (BMI) [Ratio] 35.9 kg/m2 [address] 08-26-2023 12:10-0400 Body temperature 97.5 [degF] [address] 08-26-2023 12:10-0400 Body weight 86.[address] 08-26-2023 12:10-0400 Diastolic blood pressure 84 mm[Hg] [address] 08-26-2023 12:10-0400 Heart rate 81 /min [address] 08-26-2023 12:10-0400 Respiratory rate 18 /min [address] 08-26-2023 12:10-0400 SaO2% (BldA) [Mass fraction] 96 % [address] 08-26-2023 12:10-0400 Systolic blood pressure 112 mm[Hg] [address] 08-15-2023 14:34-0400 Body height 154.9 cm Jasmine Mathias MD Work Phone: [facility] 08-15-2023 14:34-0400 Body mass index (BMI) [Ratio] 35.98 kg/m2 Jasmine Mathias MD Work Phone: [facility] 08-15-2023 14:34-0400 Body weight 86.36 kg Jasmine Mathias MD Work Phone: [facility] 08-15-2023 14:34-0400 Diastolic blood pressure 68 mm[Hg] Jasmine Mathias MD Work Phone: [facility] 08-15-2023 14:34-0400 Heart rate 90 /min Jasmine Mathias MD Work Phone: [facility] 08-15-2023 14:34-0400 SaO2% (BldA) [Mass fraction] 97 % Jasmine Mathias MD Work Phone: [facility] 08-15-2023 14:34-0400 Systolic blood pressure 116 mm[Hg] Jasmine Mathias MD Work Phone: [facility] 08-09-2023 07:53-0400 Body mass index (BMI) [Ratio] 36.09 kg/m2 Mauricio Mancilla PA-C Work Phone: [facility] 08-09-2023 07:53-0400 Body weight 86.64 kg Mauricio Mancilla PA-C Work Phone: [facility] 08-09-2023 07:53-0400 Diastolic blood pressure 82 mm[Hg] Mauricio Mancilla PA-C Work Phone: [facility] 08-09-2023 07:53-0400 Heart rate 94 /min Mauricio Mancilla PA-C Work Phone: [facility] 08-09-2023 07:53-0400 Respiratory rate 18 /min Mauricio Mancilla PA-C Work Phone: [facility] 08-09-2023 07:53-0400 Systolic blood pressure 142 mm[Hg] Mauricio Mancilla PA-C Work Phone: [facility] 07-26-2023 08:01-0400 Body mass index (BMI) [Ratio] 35.9 kg/m2 Mauricio Mancilla PA-C Work Phone: [facility] 07-26-2023 08:01-0400 Body weight 86.18 kg Mauricio Mancilla PA-C Work Phone: [facility] 07-26-2023 08:01-0400 Diastolic blood pressure 84 mm[Hg] Mauricio Mancilla PA-C Work Phone: [facility] 07-26-2023 08:01-0400 Heart rate 83 /min Mauricio Mancilla PA-C Work Phone: [facility] 07-26-2023 08:01-0400 Respiratory rate 16 /min Mauricio Mancilla PA-C Work Phone: [facility] 07-26-2023 08:01-0400 Systolic blood pressure 153 mm[Hg] Mauriciodeangelo Mancilla PA-C Work Phone: [facility] 05-13-2023 10:03-0500 Body height 154.9 cm Jasmine Mathias MD Work Phone: [facility] 05-13-2023 10:03-0500 Body mass index (BMI) [Ratio] 35.77 kg/m2 Jasmine Mathias MD Work Phone: [facility] 05-13-2023 10:03-0500 Body weight 85.87 kg Jasmine Mathias MD Work Phone: [facility] 05-13-2023 10:03-0500 Diastolic blood pressure 76 mm[Hg] Jasmine Mathias MD Work Phone: [facility] 05-13-2023 10:03-0500 Heart rate 72 /min Jasmine Mathias MD Work Phone: [facility] 05-13-2023 10:03-0500 Systolic blood pressure 122 mm[Hg] Jasmine Mathias MD Work Phone: [facility] 05-05-2023 14:27-0500 Body temperature 97.39 [degF] Roderick Jeter DPM Work Phone: [facility] 05-05-2023 14:27-0500 Diastolic blood pressure 81 mm[Hg] Roderick Jeter DPM Work Phone: [facility] 05-05-2023 14:27-0500 Heart rate 98 /min Roderick Jeter DPM Work Phone: [facility] 05-05-2023 14:27-0500 Systolic blood pressure 124 mm[Hg] Roderick Jeter DPM Work Phone: [facility] 04-05-2023 10:53-0500 Body height 154.9 cm Mauricio Mancilla PA-C Work Phone: [facility] 04-05-2023 10:53-0500 Body mass index (BMI) [Ratio] 35.33 kg/m2 Mauricio Mancilla PA-C Work Phone: [facility] 04-05-2023 10:53-0500 Body weight 84.82 kg Mauricio Mancilla PA-C Work Phone: [facility] 04-05-2023 10:53-0500 Diastolic blood pressure 75 mm[Hg] Mauricio Mancilla PA-C Work Phone: [facility] 04-05-2023 10:53-0500 Heart rate 89 /min Mauricio Mancilla PA-C Work Phone: [facility] 04-05-2023 10:53-0500 Respiratory rate 20 /min Mauricio Mancilla PA-C Work Phone: [facility] 04-05-2023 10:53-0500 Systolic blood pressure 139 mm[Hg] Mauricio Mancilla PA-C Work Phone: [facility] 03-24-2023 08:38-0500 Body temperature 97.3 [degF] Roderick Jeter DPM Work Phone: [facility] 03-24-2023 08:38-0500 Diastolic blood pressure 80 mm[Hg] Roderick Jeter DPM Work Phone: [facility] 03-24-2023 08:38-0500 Heart rate 82 /min Roderick Jeter DPM Work Phone: [facility] 03-24-2023 08:38-0500 Systolic blood pressure 133 mm[Hg] Roderick Jeter DPM Work Phone: [facility] 03-04-2023 11:21-0500 Diastolic blood pressure 85 mm[Hg] [address] 03-04-2023 11:21-0500 Heart rate 72 /min [address] 03-04-2023 11:21-0500 Respiratory rate 16 /min [address] 03-04-2023 11:21-0500 Systolic blood pressure 148 mm[Hg] [address] 03-04-2023 11:04-0500 Body temperature 98.01 [degF] [address] 03-04-2023 11:04-0500 SaO2% (BldA) [Mass fraction] 96 % [address] 03-04-2023 09:06-0500 Body height 154.[address] 03-04-2023 09:06-0500 Body mass index (BMI) [Ratio] 34.58 kg/m2 [address] 03-04-2023 09:06-0500 Body weight 83.[address] 02-24-2023 09:02-0500 Diastolic blood pressure 87 mm[Hg] Roderick Jeter DPM Work Phone: [facility] 02-24-2023 09:02-0500 Heart rate 85 /min Roderick Jeter DPM Work Phone: [facility] 02-24-2023 09:02-0500 Systolic blood pressure 153 mm[Hg] Roderick Jeter DPM Work Phone: [facility] 02-24-2023 08:57-0500 Body temperature 98.4 [degF] Roderick Evangelist DPM Work Phone: [facility] 02-03-2023 13:49-0500 Body temperature 97.9 [degF] Roderick Evangelist DPM Work Phone: [facility] 02-03-2023 13:49-0500 Diastolic blood pressure 59 mm[Hg] Roderick Evangelist DPM Work Phone: [facility] 02-03-2023 13:49-0500 Heart rate 106 /min Roderick Jeter DPM Work Phone: [facility] 02-03-2023 13:49-0500 Systolic blood pressure 128 mm[Hg] Roderick Evangelist DPM Work Phone: [facility] 02-02-2023 10:41-0500 Body height 154.9 cm Mary Carmen Tovar MD Work Phone: [facility] 02-02-2023 10:41-0500 Body mass index (BMI) [Ratio] 35.52 kg/m2 Mary Carmen Tovar MD Work Phone: [facility] 02-02-2023 10:41-0500 Body weight 85.28 kg Mary Carmen Tovar MD Work Phone: [facility] 02-02-2023 10:41-0500 Diastolic blood pressure 82 mm[Hg] Mary Carmen Tovar MD Work Phone: [facility] 02-02-2023 10:41-0500 Heart rate 86 /min Mary Carmen Tovar MD Work Phone: [facility] 02-02-2023 10:41-0500 Respiratory rate 16 /min Mary Carmen Tovar MD Work Phone: [facility] 02-02-2023 10:41-0500 SaO2% (BldA) [Mass fraction] 96 % Mary Carmen Tovar MD Work Phone: [facility] 02-02-2023 10:41-0500 Systolic blood pressure 120 mm[Hg] Mary Carmen Tovar MD Work Phone: [facility] 01-25-2023 09:11-0400 Body height 154.9 cm Mauricio Mancilla PA-C Work Phone: [facility] 01-25-2023 09:11-0400 Body mass index (BMI) [Ratio] 34.96 kg/m2 Mauricio Mancilla PA-C Work Phone: [facility] 01-25-2023 09:11-0400 Body weight 83.92 kg Mauricio Mancilla PA-C Work Phone: [facility] 01-25-2023 09:11-0400 Diastolic blood pressure 76 mm[Hg] Mauricio Mancilla PA-C Work Phone: [facility] 01-25-2023 09:11-0400 Heart rate 88 /min Mauricio Mancilla PA-C Work Phone: [facility] 01-25-2023 09:11-0400 Respiratory rate 16 /min Mauricio Mancilla PA-C Work Phone: [facility] 01-25-2023 09:11-0400 Systolic blood pressure 117 mm[Hg] Mauricio Mancilla PA-C Work Phone: [facility] 01-20-2023 13:31-0400 Body temperature 98.71 [degF] Roderick Jeter DPM Work Phone: [facility] 01-20-2023 13:31-0400 Diastolic blood pressure 79 mm[Hg] Roderick Jeter DPM Work Phone: [facility] 01-20-2023 13:31-0400 Heart rate 94 /min Roderick Jeter DPM Work Phone: [facility] 01-20-2023 13:31-0400 Systolic blood pressure 131 mm[Hg] Roderick Jeter DPM Work Phone: [facility] 01-07-2023 14:09-0400 Diastolic blood pressure 82 mm[Hg] Roderickdavid MoralesJeter DPM Work Phone: [facility] 01-07-2023 14:09-0400 Heart rate 102 /min Roderick Jeter DPM Work Phone: [facility] 01-07-2023 14:09-0400 Systolic blood pressure 142 mm[Hg] Roderick Jeter DPM Work Phone: [facility] 01-07-2023 14:05-0400 Body temperature 98.71 [degF] Roderick Jeter DPM Work Phone: [facility] 01-03-2023 11:32-0400 Body temperature 98.2 [degF] Roderick Jeter DPM Work Phone: [facility] 01-03-2023 11:32-0400 Diastolic blood pressure 87 mm[Hg] Roderickdavid Bayman DPM Work Phone: [facility] 01-03-2023 11:32-0400 Heart rate 80 /min Roderick Jeter DPM Work Phone: [facility] 01-03-2023 11:32-0400 Systolic blood pressure 132 mm[Hg] Roderick Jeter DPM Work Phone: [facility] 12-27-2022 10:59-0400 Diastolic blood pressure 84 mm[Hg] Roderickdavid MoralesJeter DPM Work Phone: [facility] 12-27-2022 10:59-0400 Systolic blood pressure 132 mm[Hg] Roderick Jeter DPM Work Phone: [facility] 12-27-2022 10:55-0400 Body temperature 98.6 [degF] Roderickdavid MoralesJeter DPM Work Phone: [facility] 12-27-2022 10:55-0400 Heart rate 75 /min Roderick Bayman DPM Work Phone: [facility] 12-26-2022 18:08-0400 Diastolic blood pressure 82 mm[Hg] Zachery Perez MD Work Phone: [facility] 12-26-2022 18:08-0400 Heart rate 70 /min Zachery Perez MD Work Phone: [facility] 12-26-2022 18:08-0400 Respiratory rate 20 /min Zachery Perez MD Work Phone: [facility] 12-26-2022 18:08-0400 SaO2% (BldA) [Mass fraction] 100 % Zachery Perez MD Work Phone: [facility] 12-26-2022 18:08-0400 Systolic blood pressure 152 mm[Hg] Zachery Perez MD Work Phone: [facility] 12-26-2022 15:37-0400 Body height 154.9 cm Zachery Perez MD Work Phone: [facility] 12-26-2022 15:37-0400 Body mass index (BMI) [Ratio] 34.96 kg/m2 Zachery Perez MD Work Phone: [facility] 12-26-2022 15:37-0400 Body temperature 97.59 [degF] Zachery Perez MD Work Phone: [facility] 12-26-2022 15:37-0400 Body weight 83.92 kg Zachery Perez MD Work Phone: [facility] 12-16-2022 11:03-0400 Body height 154.94 cm Jasmine Mathias Work Phone: [facility] Work Phone: 12-16-2022 11:03-0400 Body mass index (BMI) [Ratio] 34.77 kg/m2 Jasmine Mathias Work Phone: [facility] Work Phone: 12-16-2022 11:03-0400 Body surface area Derived from formula 1.82 m2 Jasmine Mathias Work Phone: [facility] Work Phone: 12-16-2022 11:03-0400 Body weight 83.46 kg Jasmine Mathias Work Phone: [facility] Work Phone: 12-16-2022 11:03-0400 Diastolic blood pressure 87 mm[Hg] Jasmine Mathias Work Phone: [facility] Work Phone: 12-16-2022 11:03-0400 Heart rate 87 /min Jasmine Mathias Work Phone: [facility] Work Phone: 12-16-2022 11:03-0400 Respiratory rate 16 /min Jasmine Mathias Work Phone: [facility] Work Phone: 12-16-2022 11:03-0400 Systolic blood pressure 148 mm[Hg] Jasmine Mathias Work Phone: [facility] Work Phone: 12-08-2022 13:38-0400 Diastolic blood pressure 78 mm[Hg] Ana Estrada MD Work Phone: [facility] 12-08-2022 13:38-0400 Systolic blood pressure 128 mm[Hg] Ana Estrada MD Work Phone: [facility] 12-08-2022 13:10-0400 Body height 154.9 cm Ana Estrada MD Work Phone: [facility] 12-08-2022 13:10-0400 Body mass index (BMI) [Ratio] 34.41 kg/m2 Ana Estrada MD Work Phone: [facility] 12-08-2022 13:10-0400 Body weight 82.6 kg Ana Estrada MD Work Phone: [facility] 12-08-2022 13:10-0400 Heart rate 56 /min Ana Estrada MD Work Phone: [facility] 11-10-2022 10:14-0400 Body mass index (BMI) [Ratio] 34.37 kg/m2 Jasmine Mathias MD Work Phone: [facility] 11-10-2022 10:14-0400 Body weight 82.51 kg Jasmine Mathias MD Work Phone: [facility] 11-10-2022 10:14-0400 Diastolic blood pressure 74 mm[Hg] Jasmine Mathias MD Work Phone: [facility] 11-10-2022 10:14-0400 Systolic blood pressure 112 mm[Hg] Jasmine Mathias MD Work Phone: [facility] 09-30-2022 14:47-0400 Body height 154.9 cm Jasmine Mathias MD Work Phone: [facility] 09-30-2022 14:47-0400 Body mass index (BMI) [Ratio] 34.03 kg/m2 Jasmine Mathias MD Work Phone: [facility] 09-30-2022 14:47-0400 Body weight 81.69 kg Jasmine Mathias MD Work Phone: [facility] 09-30-2022 14:47-0400 Diastolic blood pressure 82 mm[Hg] Jasmine Mathias MD Work Phone: [facility] 09-30-2022 14:47-0400 Heart rate 82 /min Jasmine Mathias MD Work Phone: [facility] 09-30-2022 14:47-0400 SaO2% (BldA) [Mass fraction] 96 % Jasmine Mathias MD Work Phone: [facility] 09-30-2022 14:47-0400 Systolic blood pressure 150 mm[Hg] Jasmine Mathias MD Work Phone: [facility] 09-27-2022 15:07-0400 Body height 155 cm Jasmine Mathias Other Phone: [facility] 09-27-2022 15:07-0400 Body temperature 97.7 [degF] Jasmine Mathias Other Phone: [facility] 09-27-2022 15:07-0400 Diastolic blood pressure 84 mm[Hg] Jasmine Mathias Other Phone: [facility] 09-27-2022 15:07-0400 Heart rate 88 /min Jasmine Mathias Other Phone: [facility] 09-27-2022 15:07-0400 Respiratory rate 16 /min Jasmine Mathias Other Phone: [facility] 09-27-2022 15:07-0400 SaO2% (BldA) [Mass fraction] 96 % Jasmine Mathias Other Phone: [facility] 09-27-2022 15:07-0400 Systolic blood pressure 159 mm[Hg] Jasmine Mathias Other Phone: [facility] 05-12-2022 09:08-0500 Body height 154.94 cm Jasmine Mathias Work Phone: [facility] Work Phone: 05-12-2022 09:08-0500 Body mass index (BMI) [Ratio] 33.11 kg/m2 Jasmine Mathias Work Phone: [facility] Work Phone: 05-12-2022 09:08-0500 Body surface area Derived from formula 1.79 m2 Jasmine Mathias Work Phone: [employer] [facility] Work Phone: 05-12-2022 09:08-0500 Body weight 79.49 kg Jasmine Mathias Work Phone: [employer] [facility] Work Phone: 05-12-2022 09:08-0500 Diastolic blood pressure 60 mm[Hg] Jasmine Mathias Work Phone: [employer] [facility] Work Phone: 05-12-2022 09:08-0500 Heart rate 58 /min Jasmine Mathias Work Phone: [employer] [facility] Work Phone: 05-12-2022 09:08-0500 SaO2% (BldA) [Mass fraction] 98 % Jasmine Mathias Work Phone: [employer] [facility] Work Phone: 05-12-2022 09:08-0500 Systolic blood pressure 120 mm[Hg] Jasmine Mathias Work Phone: [employer] [facility] Work Phone: 05-10-2022 11:04-0500 Body height 155 cm Jasmine Mathias Other Phone: [facility] 05-10-2022 11:04-0500 Body temperature 97.52 [degF] Jasmine Mathias Other Phone: [facility] 05-10-2022 11:04-0500 Diastolic blood pressure 91 mm[Hg] Jasmine Mathias Other Phone: [facility] 05-10-2022 11:04-0500 Heart rate 76 /min Jasmine Mtahias Other Phone: [facility] 05-10-2022 11:04-0500 Respiratory rate 14 /min Jasmine Mathias Other Phone: [facility] 05-10-2022 11:04-0500 SaO2% (BldA) [Mass fraction] 95 % Jasmine Mathias Other Phone: [facility] 05-10-2022 11:04-0500 Systolic blood pressure 139 mm[Hg] Jasmine Mathias Other Phone: [facility] 04-07-2022 08:51-0500 Body height 154.9 cm Delvis Moncada MD Work Phone: [facility] 04-07-2022 08:51-0500 Body mass index (BMI) [Ratio] 32.74 kg/m2 Delvis Moncada MD Work Phone: [facility] 04-07-2022 08:51-0500 Body weight 78.61 kg Delvis Moncada MD Work Phone: [facility] 04-07-2022 08:51-0500 Diastolic blood pressure 89 mm[Hg] Delvis Moncada MD Work Phone: [facility] 04-07-2022 08:51-0500 Heart rate 88 /min Delvis Moncada MD Work Phone: [facility] 04-07-2022 08:51-0500 SaO2% (BldA) [Mass fraction] 93 % Delvis Moncada MD Work Phone: [facility] 04-07-2022 08:51-0500 Systolic blood pressure 160 mm[Hg] Delvis Moncada MD Work Phone: [facility] 03-02-2022 08:34-0500 Body mass index (BMI) [Ratio] 32.31 kg/m2 Maira Hamilton [employer]ER [employer] Work Phone: [facility] 03-02-2022 08:34-0500 Body weight 77.56 kg Maira Hamilton [employer] Work Phone: [facility] 03-02-2022 08:34-0500 Diastolic blood pressure 88 mm[Hg] Maira Hamilton CNP Work Phone: [facility] 03-02-2022 08:34-0500 Heart rate 76 /min Maira Hamilton CNP Work Phone: [facility] 03-02-2022 08:34-0500 SaO2% (BldA) [Mass fraction] 100 % Maira Hamilton CNP Work Phone: [facility] 03-02-2022 08:34-0500 Systolic blood pressure 143 mm[Hg] Maira Hamilton CNP Work Phone: [facility] 02-01-2022 08:56-0500 Body height 154.94 cm Jasmine Mathias Work Phone: [facility] Work Phone: 02-01-2022 08:56-0500 Body mass index (BMI) [Ratio] 31.66 kg/m2 Jasmine Mathias Work Phone: [facility] Work Phone: 02-01-2022 08:56-0500 Body surface area Derived from formula 1.75 m2 Jasmine Mathias Work Phone: [facility] Work Phone: 02-01-2022 08:56-0500 Body weight 76.01 kg Jasmine Mathias Work Phone: [facility] Work Phone: 02-01-2022 08:56-0500 Diastolic blood pressure 82 mm[Hg] Jasmine Mathias Work Phone: [facility] Work Phone: 02-01-2022 08:56-0500 Heart rate 70 /min Jasmine Mathias Work Phone: [facility] Work Phone: 02-01-2022 08:56-0500 SaO2% (BldA) [Mass fraction] 100 % Jasmine Logan Vic Work Phone: [facility] Work Phone: 02-01-2022 08:56-0500 Systolic blood pressure 110 mm[Hg] Jasmine Logan Vic Work Phone: [facility] Work Phone: 01-21-2022 11:11-0400 Body height 154.9 cm Delvis Moncada MD Work Phone: [facility] 01-21-2022 11:11-0400 Body mass index (BMI) [Ratio] 32.01 kg/m2 Delvis Moncada MD Work Phone: [facility] 01-21-2022 11:11-0400 Body weight 76.84 kg Delvis Moncada MD Work Phone: [facility] 01-21-2022 11:11-0400 Diastolic blood pressure 99 mm[Hg] Delvis Moncada MD Work Phone: [facility] 01-21-2022 11:11-0400 Heart rate 70 /min Delvis Moncada MD Work Phone: [facility] 01-21-2022 11:11-0400 SaO2% (BldA) [Mass fraction] 98 % Delvis Moncada MD Work Phone: [facility] 01-21-2022 11:11-0400 Systolic blood pressure 167 mm[Hg] Delvis Moncada MD Work Phone: [facility] 01-05-2022 13:03-0400 Body height 154.94 cm Jasmine Logan Vic Work Phone: [facility] 300 Work Phone: 01-05-2022 13:03-0400 Body mass index (BMI) [Ratio] 31.18 kg/m2 Jasmine Logan Vic Work Phone: [facility] 300 Work Phone: 01-05-2022 13:03-0400 Body surface area Derived from formula 1.74 m2 Jasmine Mathias Work Phone: [facility] 300 Work Phone: 01-05-2022 13:03-0400 Body temperature 97.8 [degF] Jasminegregoria Mathias Work Phone: [facility] 300 Work Phone: 01-05-2022 13:03-0400 Body weight 74.84 kg Jasminegregoria Mathias Work Phone: [facility] 300 Work Phone: 01-04-2022 08:41-0400 Body height 156.2 cm Mary Carmen Tovar MD Work Phone: [facility] 01-04-2022 08:41-0400 Body mass index (BMI) [Ratio] 31.45 kg/m2 Mary Carmen Tovar MD Work Phone: [facility] 01-04-2022 08:41-0400 Body weight 76.75 kg Mary Carmen Tovar MD Work Phone: [facility] 01-04-2022 08:41-0400 Diastolic blood pressure 84 mm[Hg] Mary Carmen Tovar MD Work Phone: [facility] 01-04-2022 08:41-0400 Heart rate 78 /min Mary Carmen Tovar MD Work Phone: [facility] 01-04-2022 08:41-0400 Respiratory rate 16 /min Mary Carmen Tovar MD Work Phone: [facility] 01-04-2022 08:41-0400 Systolic blood pressure 138 mm[Hg] Mary Carmen Tovar MD Work Phone: [facility] 12-10-2021 09:49-0400 Body mass index (BMI) [Ratio] 31.18 kg/m2 Jasmine Mathias Work Phone: [facility] 300 Work Phone: 12-10-2021 09:49-0400 Body surface area Derived from formula 1.74 m2 Jasmine Mathias Work Phone: [facility] 300 Work Phone: 12-10-2021 09:49-0400 Body temperature 97.1 [degF] Jasmine Mathias Work Phone: [facility] 300 Work Phone: 12-10-2021 09:49-0400 Body weight 74.84 kg Jasmine Mathias Work Phone: [facility] 300 Work Phone: 11-26-2021 08:31-0400 Body height 154.9 cm Delvis Moncada MD Work Phone: [facility] 11-26-2021 08:31-0400 Body mass index (BMI) [Ratio] 31.57 kg/m2 Delvis Moncada MD Work Phone: [facility] 11-26-2021 08:31-0400 Body weight 75.8 kg Delvis Moncada MD Work Phone: [facility] 11-26-2021 08:31-0400 Diastolic blood pressure 81 mm[Hg] Delvis Moncada MD Work Phone: [facility] 11-26-2021 08:31-0400 Heart rate 67 /min Delvis Moncada MD Work Phone: [facility] 11-26-2021 08:31-0400 SaO2% (BldA) [Mass fraction] 98 % Delvis Moncada MD Work Phone: [facility] 11-26-2021 08:31-0400 Systolic blood pressure 133 mm[Hg] Delvis Moncada MD Work Phone: [facility] 11-11-2021 09:10-0400 Body height 154.94 cm Jasmine Mathias Work Phone: [facility] 205 DO Work Phone: 11-11-2021 09:10-0400 Body mass index (BMI) [Ratio] 31.28 kg/m2 Jasmine Mathias Work Phone: [facility] 205 DO Work Phone: 11-11-2021 09:10-0400 Body surface area Derived from formula 1.74 m2 Jasmine Mathias Work Phone: [facility] 205 DO Work Phone: 11-11-2021 09:10-0400 Body weight 75.1 kg Jasmine Mathias Work Phone: [facility] 205 DO Work Phone: 11-11-2021 09:10-0400 Diastolic blood pressure 80 mm[Hg] Jasmine Mathias Work Phone: [facility] 205 DO Work Phone: 11-11-2021 09:10-0400 Heart rate 80 /min Jasmine Mathias Work Phone: [facility] 205 DO Work Phone: 11-11-2021 09:10-0400 SaO2% (BldA) [Mass fraction] 98 % Jasmine Mathias Work Phone: [facility] 205 DO Work Phone: 11-11-2021 09:10-0400 Systolic blood pressure 110 mm[Hg] Jasmine Mathias Work Phone: [facility] 205 DO Work Phone: 05-13-2021 09:07-0500 Body height 154.94 cm Jasmine Mathias Work Phone: [facility] Work Phone: 05-13-2021 09:07-0500 Body mass index (BMI) [Ratio] 31.8 kg/m2 Jasmine Mathias Work Phone: [facility] Work Phone: 05-13-2021 09:07-0500 Body surface area Derived from formula 1.76 m2 Jasmine Mathias Work Phone: [facility] Work Phone: 05-13-2021 09:07-0500 Body temperature 97.5 [degF] Jasmine Mathias Work Phone: [facility] Work Phone: 05-13-2021 09:07-0500 Body weight 76.35 kg Jasmine Mathias Work Phone: [facility] Work Phone: 05-13-2021 09:07-0500 Diastolic blood pressure 80 mm[Hg] Jasmien Mathias Work Phone: [facility] Work Phone: 05-13-2021 09:07-0500 Heart rate 80 /min Jasmine Mathias Work Phone: [facility] Work Phone: 05-13-2021 09:07-0500 SaO2% (BldA) [Mass fraction] 98 % Jasmine Mathias Work Phone: [facility] Work Phone: 05-13-2021 09:07-0500 Systolic blood pressure 132 mm[Hg] Jasmine Mathias Work Phone: [facility] Work Phone: 03-26-2021 12:16-0500 Body height 154.9 cm Jasmine Mathias Other Phone: [facility] 03-26-2021 12:16-0500 Body temperature 97.52 [degF] Jasmine Mathias Other Phone: [facility] 03-26-2021 12:16-0500 Diastolic blood pressure 85 mm[Hg] Jasmine Mathias Other Phone: [facility] 03-26-2021 12:16-0500 Heart rate 86 /min Jasmine Mathias Other Phone: [facility] 03-26-2021 12:16-0500 SaO2% (BldA) [Mass fraction] 100 % Jasmine Mathias Other Phone: [facility] 03-26-2021 12:16-0500 Systolic blood pressure 141 mm[Hg] Jasmine Mathias Other Phone: [facility] 11-25-2020 07:35-0400 Body temperature 98.1 [degF] Nevaeh Newry DPM Work Phone: [facility] 11-25-2020 07:35-0400 Diastolic blood pressure 74 mm[Hg] Nevaeh Newry DPM Work Phone: [facility] 11-25-2020 07:35-0400 Heart rate 86 /min Nevaeh Minnie DPM Work Phone: [facility] 11-25-2020 07:35-0400 Systolic blood pressure 122 mm[Hg] Nevaeh Newry DPM Work Phone: [facility] 11-05-2020 09:52-0400 Body height 154.94 cm Jasminegregoria Humphriesorf Work Phone: [facility] Work Phone: 11-05-2020 09:52-0400 Body mass index (BMI) [Ratio] 31.61 kg/m2 Jasmine Mathias Work Phone: [facility] Work Phone: 11-05-2020 09:52-0400 Body surface area Derived from formula 1.75 m2 Jasmine Mathias Work Phone: [facility] Work Phone: 11-05-2020 09:52-0400 Body temperature 97.7 [degF] Jasmine Mathias Work Phone: [facility] Work Phone: 11-05-2020 09:52-0400 Body weight 75.89 kg Jasmine Mathias Work Phone: [facility] Work Phone: 11-05-2020 09:52-0400 Diastolic blood pressure 82 mm[Hg] Jasmine Mathias Work Phone: [facility] Work Phone: 11-05-2020 09:52-0400 Heart rate 76 /min Jasmine Mathias Work Phone: [facility] Work Phone: 11-05-2020 09:52-0400 Systolic blood pressure 120 mm[Hg] Jasmine Mathias Work Phone: [facility] Work Phone: 10-28-2020 07:27-0400 Body temperature 97.7 [degF] Nevaeh Newry [facility] Work Phone: [facility] 10-28-2020 07:27-0400 Diastolic blood pressure 86 mm[Hg] Nevaeh Minnie DPM Work Phone: [facility] 10-28-2020 07:27-0400 Heart rate 85 /min Nevaeh Minnie DPM Work Phone: [facility] 10-28-2020 07:27-0400 Systolic blood pressure 145 mm[Hg] Nevaeh Newry DPM Work Phone: [facility] 10-26-2020 22:50-0400 Diastolic blood pressure 87 mm[Hg] Jasmine Humphriestherese Other Phone: [facility] 10-26-2020 22:50-0400 Heart rate 71 /min Jasmine Mathias Other Phone: [facility] 10-26-2020 22:50-0400 Respiratory rate 16 /min Jasmine Mathias Other Phone: [facility] 10-26-2020 22:50-0400 SaO2% (BldA) [Mass fraction] 98 % Jasmine Mathias Other Phone: [facility] 10-26-2020 22:50-0400 Systolic blood pressure 128 mm[Hg] Jasmine Mathias Other Phone: [facility] 10-26-2020 20:46-0400 Body height 154.9 cm Jasmine Mathias Other Phone: [facility] 10-26-2020 20:46-0400 Body temperature 98.24 [degF] Jasmine Mathias Other Phone: [facility] 10-26-2020 20:46-0400 Body weight 76.4 kg Jasmine Mathias Other Phone: [facility] 09-15-2020 11:11-0400 Body height 149.86 cm Jasmine Mathias Work Phone: [facility] Work Phone: 09-15-2020 11:11-0400 Body mass index (BMI) [Ratio] 33.93 kg/m2 Jasmine Humphriesorf Work Phone: [facility] Work Phone: 09-15-2020 11:11-0400 Body surface area Derived from formula 1.71 m2 Jasmine Humphriesorf Work Phone: [facility] Work Phone: 09-15-2020 11:11-0400 Body temperature 98 [degF] Jasmine Humphriesorf Work Phone: [facility] Work Phone: 09-15-2020 11:11-0400 Body weight 76.2 kg Jasmine Mathias Work Phone: [facility] Work Phone: 09-15-2020 11:11-0400 Diastolic blood pressure 76 mm[Hg] Jasmine Humphriesorf Work Phone: [facility] Work Phone: 09-15-2020 11:11-0400 Heart rate 86 /min Jasmine Mathias Work Phone: [facility] Work Phone: 09-15-2020 11:11-0400 Respiratory rate 12 /min Jasmine Humphriesorf Work Phone: [facility] Work Phone: 09-15-2020 11:11-0400 Systolic blood pressure 124 mm[Hg] Jasmine Humphriesorf Work Phone: [facility] Work Phone: 08-05-2020 10:16-0400 Body mass index (BMI) [Ratio] 34.13 kg/m2 Jasmine Humphriesorf Work Phone: [facility] Work Phone: 08-05-2020 10:16-0400 Body surface area Derived from formula 1.72 m2 Jasmine Mathias Work Phone: [facility] Work Phone: 08-05-2020 10:16-0400 Body temperature 97.2 [degF] Jasmine Mathias Work Phone: [facility] Work Phone: 08-05-2020 10:16-0400 Body weight 76.66 kg Jasmine Mathias Work Phone: [facility] Work Phone: 08-05-2020 10:16-0400 Diastolic blood pressure 84 mm[Hg] Jasmine Mathias Work Phone: [facility] Work Phone: 08-05-2020 10:16-0400 Heart rate 73 /min Jasmine Mathias Work Phone: [facility] Work Phone: 08-05-2020 10:16-0400 Respiratory rate 14 /min Jasmine Mathias Work Phone: [facility] Work Phone: 08-05-2020 10:16-0400 Systolic blood pressure 123 mm[Hg] [facility] Work [facility]: [facility] Work Phone: 05-07-2020 12:30-0500 BMI (Body Mass Index) 34.13 kg/m2 Jasmine Mathias [facility] Work Phone: 05-07-2020 12:30-0500 Body Temperature 97.1 [degF] Jasmine Mathias [facility] Work Phone: 05-07-2020 12:30-0500 Body weight 76.66 kg Jasmine Mathias [facility] Work Phone: 05-07-2020 12:30-0500 BP Diastolic 80 mm[Hg] Jasmine Mathias [facility] [facility] Work Phone: 05-07-2020 12:30-0500 BP Systolic 120 mm[Hg] Jasmine Mathias [facility] [facility] Work Phone: 05-07-2020 12:30-0500 BSA (Body Surface Area) 1.72 m2 Jasmine Mathias [facility] [facility] Work Phone: 05-07-2020 12:30-0500 Height 149.86 cm Jasmine Mathias [facility] [facility] Work Phone: 04-29-2020 15:22-0500 BMI (Body Mass Index) 33.93 kg/m2 Jasmine Mathias [facility] Work Phone: 04-29-2020 15:22-0500 Body Temperature 97.9 [degF] Jasmine Mathias [facility] Work Phone: 04-29-2020 15:22-0500 Body weight 76.2 kg Jasmine Mathias [facility] Work Phone: 04-29-2020 15:22-0500 BP Diastolic 84 mm[Hg] Jasmine Mathias [facility] Work Phone: 04-29-2020 15:22-0500 BP Systolic 148 mm[Hg] Jasmine Mathias [facility] [facility] Work Phone: 04-29-2020 15:22-0500 BSA (Body Surface Area) 1.71 m2 [facility] Work Phone: 04-29-2020 15:22-0500 Height 149.86 cm [facility] Work Phone: 04-29-2020 15:22-0500 Pulse (Heart Rate) 83 /min [facility] Work Phone: 04-29-2020 15:22-0500 Respiratory Rate 16 /min [facility] Work Phone: 04-18-2020 11:08-0500 BMI (Body Mass Index) 34.39 kg/m2 [facility] [employer] Work Phone: 04-18-2020 11:08-0500 Body Temperature 97.1 [degF] [facility] [employer] Work Phone: 04-18-2020 11:08-0500 Body weight 77.23 kg [facility] [employer] Work Phone: 04-18-2020 11:08-0500 BP Diastolic 80 mm[Hg] [facility] [employer] Work Phone: 04-18-2020 11:08-0500 BP Systolic 130 mm[Hg] [facility] [employer] Work Phone: 04-18-2020 11:08-0500 BSA (Body Surface Area) 1.72 m2 [facility] [employer] Work Phone: 04-18-2020 11:08-0500 Height 149.86 cm [facility] [employer] Work Phone: 04-18-2020 11:08-0500 Pulse (Heart Rate) 72 /min Jasmine Mathias [facility] [employer] Work Phone: 01-03-2020 09:24-0400 BMI (Body Mass Index) 33.44 kg/m2 [facility] 01-03-2020 09:24-0400 Body Temperature 97.59 [degF] [place] [employer] [facility] [facility] 01-03-2020 09:24-0400 Body weight 80.29 kg [facility] 01-03-2020 09:24-0400 BP Diastolic 83 mm[Hg] [facility] 01-03-2020 09:24-0400 BP Systolic 137 mm[Hg] [facility] 01-03-2020 09:24-0400 Height 154.9 cm [facility] 01-03-2020 09:24-0400 Pulse (Heart Rate) 73 /min [facility] 11-21-2019 12:08-0400 BMI (Body Mass Index) 35.55 kg/m2 [facility] Work Phone: 11-21-2019 12:08-0400 Body Temperature 97.5 [degF] [facility] Work Phone: 11-21-2019 12:08-0400 Body weight 79.83 kg [facility] Work Phone: 11-21-2019 12:08-0400 BP Diastolic 84 mm[Hg] [facility] Work Phone: 11-21-2019 12:08-0400 BP Systolic 140 mm[Hg] [facility] Work Phone: 11-21-2019 12:08-0400 BSA (Body Surface Area) 1.75 m2 [facility] Work Phone: 11-21-2019 12:08-0400 Height 149.86 cm Jasmine Mathias [facility] Work Phone: 11-21-2019 12:08-0400 Pulse (Heart Rate) 75 /min Jasmine Mathias [facility] Work Phone: 06-11-2019 09:08-0400 BMI (Body Mass Index) 36.66 kg/m2 [facility] 06-11-2019 09:08-0400 Body Temperature 98.01 [degF] [facility] 06-11-2019 09:08-0400 Body weight 88 kg [facility] 06-11-2019 09:08-0400 BP Diastolic 81 mm[Hg] [facility] 06-11-2019 09:08-0400 BP Systolic 156 mm[Hg] [facility] 06-11-2019 09:08-0400 Height 154.9 cm [facility] 06-11-2019 09:08-0400 Pulse (Heart Rate) 73 /min [facility] 06-11-2019 09:08-0400 Pulse Oximetry 98 % [facility] 02-20-2019 11:25-0500 Body Temperature 98.49 [degF] [facility] [address] [place] [address] 02-20-2019 11:25-0500 BP Diastolic 58 mm[Hg] [facility] 2 [facility] 02-20-2019 11:25-0500 BP Systolic 104 mm[Hg] [facility] 2 [facility] 02-20-2019 11:25-0500 Pulse (Heart Rate) 88 /min [facility] [address] [place] [address] 02-20-2019 11:25-0500 Pulse Oximetry 99 % [facility] 2 [facility] 02-20-2019 11:25-0500 Respiratory Rate 16 /min [facility] 2 [facility] 02-20-2019 10:05-0500 BMI (Body Mass Index) 36.39 kg/m2 [facility] 2 [facility] 02-20-2019 10:05-0500 Body weight 87.36 kg [facility] 2 [facility] 03-09-2018 11:40-0500 BMI (Body Mass Index) 38.04 kg/m2 [facility] 03-09-2018 11:40-0500 Body Temperature 98.8 [degF] [facility] 03-09-2018 11:40-0500 BP Diastolic 93 mm[Hg] [facility] 03-09-2018 11:40-0500 BP Systolic 136 mm[Hg] [facility] 03-09-2018 11:40-0500 Height 154.9 cm [facility] 03-09-2018 11:40-0500 Pulse (Heart Rate) 106 /min [facility] 03-09-2018 11:40-0500 Pulse Oximetry 98 % [facility] 03-09-2018 11:40-0500 Weight 91.31 kg [facility] 02-03-2018 09:06-0500 BMI (Body Mass Index) 39.28 kg/m2 [facility] 02-03-2018 09:06-0500 Body Temperature 98.49 [degF] [facility] 02-03-2018 09:06-0500 BP Diastolic 83 mm[Hg] [facility] 02-03-2018 09:06-0500 BP Systolic 177 mm[Hg] [facility] 02-03-2018 09:06-0500 Height 154.9 cm [facility] 02-03-2018 09:06-0500 Pulse (Heart Rate) 99 /min [facility] 02-03-2018 09:06-0500 Pulse Oximetry 96 % [facility] 02-03-2018 09:06-0500 Weight 94.3 kg [facility] 12-15-2017 11:54-0400 BMI (Body Mass Index) 40.95 kg/m2 [facility] 12-15-2017 11:54-0400 Body Temperature 97.81 [degF] [facility] 12-15-2017 11:54-0400 BP Diastolic 92 mm[Hg] [facility] 12-15-2017 11:54-0400 BP Systolic 160 mm[Hg] [facility] 12-15-2017 11:54-0400 Height 154.9 cm [facility] 12-15-2017 11:54-0400 Pulse (Heart Rate) 70 /min [facility] 12-15-2017 11:54-0400 Pulse Oximetry 98 % [facility] 12-15-2017 11:54-0400 Weight 98.29 kg [facility] 10-20-2017 12:59-0400 BMI (Body Mass Index) 40.38 kg/m2 [facility] 10-20-2017 12:59-0400 Body Temperature 98.2 [degF] [facility] 10-20-2017 12:59-0400 BP Diastolic 80 mm[Hg] [facility] 10-20-2017 12:59-0400 BP Systolic 132 mm[Hg] [facility] 10-20-2017 12:59-0400 Height 154.9 cm [facility] 10-20-2017 12:59-0400 Pulse (Heart Rate) 90 /min [facility] 10-20-2017 12:59-0400 Pulse Oximetry 94 % [facility] 10-20-2017 12:59-0400 Weight 96.93 kg [facility] 08-24-2017 12:53-0400 BMI (Body Mass Index) 40.6 kg/m2 [facility] 08-24-2017 12:53-0400 Body Temperature 98.1 [degF] [facility] 08-24-2017 12:53-0400 BP Diastolic 75 mm[Hg] [facility] 08-24-2017 12:53-0400 BP Systolic 148 mm[Hg] [facility] 08-24-2017 12:53-0400 Height 156.2 cm [facility] 08-24-2017 12:53-0400 Pulse (Heart Rate) 70 /min [facility] 08-24-2017 12:53-0400 Pulse Oximetry 95 % [facility] 08-24-2017 12:53-0400 Weight 99.07 kg [facility] 07-27-2017 10:08-0400 BMI (Body Mass Index) 42.23 kg/m2 [facility] 07-27-2017 10:08-0400 Body Temperature 97.9 [degF] [facility] 07-27-2017 10:08-0400 BP Diastolic 71 mm[Hg] [facility] 07-27-2017 10:08-0400 BP Systolic 145 mm[Hg] [facility] 07-27-2017 10:08-0400 Height 156.2 cm [facility] 07-27-2017 10:08-0400 Pulse (Heart Rate) 76 /min [facility] 07-27-2017 10:08-0400 Pulse Oximetry 98 % [facility] 07-27-2017 10:08-0400 Weight 103.06 kg [facility] 07-25-2017 15:05-0400 BMI (Body Mass Index) 42.97 kg/m2 Yung Hernández [facility] 07-25-2017 15:05-0400 Height 152.4 cm Yung Hernández [facility] 07-25-2017 15:05-0400 Weight 99.79 kg Yungtashia Hernández [facility] Encounters Encounter Date Encounter Type Care Provider Facility Start: 09-18-2024 ambulatory Jasmine Mathias [facility] ility:[facility] Start: 09-17-2024 Encounter for other preprocedural examination Elia Villegas [facility] Start: 09-14-2024 End: 09-14-2024 Office outpatient visit 15 minutes Bar Triana DPM Work Phone: [facility] Comment on above: Injury of toe on rig ht foot, initial encounter (Primary Dx); History of bunionectomy of left great toe Start: 09-14-2024 End: 09-14-2024 ambulatory BAR TRIANA JR. [facility] Start: 09-10-2024 End: 09-10-2024 Emergency department patient visit Sanjuana Bills DO Work Phone: [facility] Comment on above: Gastroenteritis (Fanny marva Dx) Start: 09-07-2024 End: 09-07-[address] Elia Villegsa MD [facility] Work Phone: Start: 09-07-2024 End: 09-07-[address] Jasmine Mathias MD Work Phone: [facility] Work Phone: Start: 09-07-2024 End: 09-07-2024 ambulatory Jasmine Mathias Facility:[facility] Start: 08-31-2024 End: 08-31-2024 Office outpatient visit 25 minutes Jasmine Mathias MD Work Phone: [facility] Comment on above: Anterolisthesis of c ervical spine (Primary Dx); Cervical radiculitis; Gastroesophageal reflux disease without esophagitis; Primary hypertension; Hypercholesteremia; Osteoporosis, unspecified osteoporosis type, unspecified pathological fracture presence; Rheumatoid arthritis involving multiple sites, unspecified whether rheumatoid factor present (Multi) Start: 08-31-2024 End: 08-31-2024 ambulatory JASMINE Logan [facility] Start: 08-24-2024 End: 08-24-2024 Office outpatient visit 15 minutes Bar Triana DPM Work Phone: [facility] Comment on above: Injury of toe on rig ht foot, initial encounter (Primary Dx) Start: 08-24-2024 End: 08-28-2024 ambulatory BAR TRIANA JR. [facility] Start: 08-14-2024 End: 08-14-2024 ambulatory JASMINE COUGHLINHITHERESE [facility] Start: 08-10-2024 End: 08-10-[address] Jw Simons MD -[facility] Start: 08-10-2024 End: 08-10-[address] Jasmine Mathias MD Work Phone: [facility] Work Phone: Start: 08-06-2024 End: 08-06-2024 ambulatory MARY CARMEN TOVAR [facility] Start: 08-06-2024 ambulatory MARY CARMEN TOVAR [facility] Start: 07-27-2024 [facility] Start: 07-17-2024 End: 07-17-2024 Subsequent hospital visit by physician [facility] Comment on above: Cervical radiculitis ; Anterolisthesis of cervical spine Start: 07-17-2024 End: 07-17-2024 ambulatory CELESTE MORAN [facility] Start: 07-16-2024 End: 07-16-2024 Office outpatient visit 25 minutes Celeste Moran MANAGER ORGANIZATIONAL-PAPER REELER Work Phone: [facility] Comment on above: Cervical radiculitis (Primary Dx); Neurogenic claudication due to lumbar spinal stenosis; Lumbosacral radiculopathy; Postlaminectomy syndrome of lumbar region; Right hip pain; Anterolisthesis of cervical spine Start: 07-16-2024 End: 07-16-2024 Transcribe Orders Celeste Moran PAPER REELER Work Phone: [facility] Comment on above: Cervical radiculitis (Primary Dx); Anterolisthesis of cervical spine Start: 07-10-2024 End: 07-10-2024 Office outpatient visit 25 minutes Soraya Hernandez MD Work Phone: [facility] Comment on above: Right shoulder pain, unspecified chronicity; Acute pain of right shoulder; Cervical neuritis Start: 07-10-2024 End: 07-10-2024 ambulatory [facility] Start: 07-10-2024 End: 07-10-2024 Subsequent hospital visit by physician [facility] Comment on above: Arrived Start: 07-10-2024 End: 07-10-2024 ambulatory [facility] Start: 06-26-2024 End: 06-26-2024 Subsequent hospital visit by physician Suresh X-Ray Fluoro 1 [facility] Comment on above: Acute pain of right shoulder Start: 06-26-2024 End: 06-26-2024 ambulatory JASMINE [facility] Start: 06-26-2024 End: 06-26-2024 Office outpatient visit 15 minutes Jasmine Mathias MD Work Phone: [facility] Comment on above: Acute pain of right shoulder (Primary Dx) Start: 06-26-2024 End: 06-26-2024 ambulatory JASMINE Logan [facility] Start: 06-25-2024 End: 06-25-2024 Office outpatient visit 15 minutes Celeste Wood Dean MANAGER ORGANIZATIONAL-PAPER REELER Work Phone: [facility] Comment on above: Neurogenic claudicat ion due to lumbar spinal stenosis (Primary Dx); Lumbosacral radiculopathy; Spondylosis of lumbosacral region, unspecified spinal osteoarthritis complication status; Postlaminectomy syndrome of lumbar region Start: 06-25-2024 End: 06-25-2024 ambulatory CELESTE Nina MORAN [facility] Start: 06-06-2024 End: 06-06-2024 Subsequent hospital visit by physician Smith Estrada DO Work Phone: [facility] [place] Comment on above: Lumbosacral radiculo taina Start: 06-06-2024 End: 06-06-2024 ambulatory SMITH ESTRADA [facility] Start: 06-05-2024 End: 06-05-2024 Subsequent hospital visit by physician Suresh Ortega [facility] Comment on above: Visit for screening mammogram Start: 06-05-2024 End: 06-05-2024 ambulatory JASMINE COUGHLINHITHERESE [facility] Start: 05-21-2024 End: 05-21-2024 Office outpatient visit 15 minutes Jasmine Mathias MD Work Phone: [facility] Comment on above: Upper respiratory tr act infection, unspecified type (Primary Dx) Start: 05-21-2024 End: 05-21-2024 ambulatory [facility] Start: 05-14-2024 End: 05-14-2024 Assay of hemosiderin, quant Jasmine Mathias MD Work Phone: [facility] Work Phone: Start: 05-14-2024 End: 05-14-2024 Patient encounter procedure Jasmine Mathias MD Work Phone: [facility] Comment on above: Routine general medi toyin examination at health care facility (Primary Dx); Anxiety; Chronic pain syndrome; Primary hypertension; Hypercholesteremia; Osteoporosis, unspecified osteoporosis type, unspecified pathological fracture presence; Primary generalized (osteo)arthritis; Rheumatoid arthritis involving multiple sites, unspecified whether rheumatoid factor present (Multi); Gastroesophageal reflux disease without esophagitis; Vitamin D deficiency; Edema, unspecified type; Class 2 severe obesity with serious comorbidity and body mass index (BMI) of 35.0 to 35.9 in adult, unspecified obesity type; Visit for screening mammogram Start: 05-14-2024 End: 05-14-2024 ambulatory [facility] Start: 05-14-2024 End: 05-14-2024 Encounter for general adult medical examination without abnormal findings [facility] Start: 05-07-2024 End: 05-07-2024 Patient encounter procedure Nena BOWDENPAPER REELER Work Phone: [facility] Comment on above: Acute upper respirat ory infection (Primary Dx); Acute bronchitis, unspecified organism Start: 05-07-2024 End: 05-07-2024 ambulatory [facility] Start: 04-11-2024 End: 04-11-2024 Office outpatient visit 25 minutes Mauricio Mancilla PA-C Work Phone: [facility] Comment on above: Lumbosacral radiculo taina (Primary Dx); H/O arthrodesis; Neurogenic claudication due to lumbar spinal stenosis Start: 04-11-2024 End: 04-11-2024 ambulatory MAURICIO MANCILLA [facility] Start: 04-04-2024 End: 04-04-2024 Office outpatient new 30 minutes Jordan Espinoza CNP Work Phone: [facility] Comment on above: Degeneration of inte rvertebral disc of lumbar region, unspecified whether pain present (Primary Dx); Degeneration of intervertebral disc of lumbar region with discogenic back pain and lower extremity pain Start: 04-04-2024 End: 04-08-2024 ambulatory JORDAN ESPINOZA [facility] Start: 03-12-2024 End: 03-12-2024 Transitional care manage srvc 7 day discharge Jasmine A Longsdorf MD Work Phone: [facility] Comment on above: Syncope, unspecified syncope type (Primary Dx) Start: 03-12-2024 End: 03-12-2024 ambulatory [facility] Start: 02-21-2024 End: 02-21-2024 ambulatory [facility] Start: 02-17-2024 End: 02-17-2024 Office outpatient visit 25 minutes Mary Carmen Tovar MD Work Phone: [facility] Comment on above: Age-related osteopor osis without current pathological fracture (Primary Dx); Vitamin D deficiency Start: 02-17-2024 ambulatory JASMINE MATHIAS [facility] Start: 02-13-2024 End: 02-13-2024 Subsequent hospital visit by physician Gayatri Dxa 1 [facility] Comment on above: Senile osteoporosis Start: 02-13-2024 End: 02-13-2024 ambulatory [facility] Start: 02-02-2024 End: 02-02-2024 Subsequent hospital visit by physician Suresh Ct [facility] Comment on above: 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HHS-H CC); Pain of right hip Start: 02-02-2024 End: 02-02-2024 ambulatory JASMINE [facility] Start: 02-02-2024 End: 02-02-2024 ambulatory [facility] Start: 02-02-2024 End: 02-02-2024 Office outpatient visit 25 minutes Mauricio Mancilla PA-C Work Phone: [facility] Comment on above: Chronic pain syndrom e (Primary Dx); Degeneration of intervertebral disc of lumbar region, unspecified whether pain present; Lumbosacral radiculopathy; Spondylosis of lumbosacral region, unspecified spinal osteoarthritis complication status; H/O arthrodesis; Neurogenic claudication due to lumbar spinal stenosis Start: 02-02-2024 End: 02-02-2024 ambulatory MAURICIO MANCILAL [facility] Start: 02-01-2024 End: 02-01-2024 Subsequent hospital visit by physician Anjelica Orantes X-Ray [facility] Comment on above: Neurogenic claudicat ion due to lumbar spinal stenosis; Lumbosacral radiculopathy Start: 02-01-2024 End: 02-01-2024 ambulatory [facility] Start: 01-31-2024 End: 01-31-2024 ambulatory [facility] Start: 01-30-2024 End: 01-30-2024 Office outpatient visit 25 minutes Jasmine Mathias MD Work Phone: [facility] Comment on above: 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HHS-H CC) (Primary Dx); Pain of right hip; Viral URI with cough Start: 01-30-2024 End: 01-30-2024 ambulatory JASMINE [facility] Start: 01-26-2024 End: 01-26-2024 ambulatory [facility] Start: 01-26-2024 End: 01-26-2024 ambulatory [facility] Start: 01-24-2024 End: 01-24-2024 ambulatory [facility] Start: 01-19-2024 End: 01-19-2024 ambulatory [facility] Start: 01-12-2024 End: 01-12-2024 ambulatory [facility] Start: 01-10-2024 End: 01-10-2024 ambulatory [facility] Start: 12-30-2023 End: 12-30-2023 Patient encounter procedure Shweta Brar MANAGER ORGANIZATIONAL-PAPER REELER Work Phone: [facility] Comment on above: Acute frontal sinusi tis, recurrence not specified (Primary Dx); Viral URI with cough Start: 12-30-2023 End: 12-30-2023 ambulatory JASMINE [facility] Start: 12-28-2023 End: 12-28-2023 Subsequent hospital visit by physician Suresh X-Ray Fluoro 1 [facility] Comment on above: Right hip pain Neurogenic claudicat ion due to lumbar spinal stenosis; Lumbosacral radiculopathy Start: 12-28-2023 End: 12-28-2023 ambulatory JASMINE [facility] Start: 12-27-2023 End: 12-27-2023 Office outpatient visit 15 minutes Jasmine Mathias MD Work Phone: [facility] Comment on above: Right hip pain (Prim candace Dx) Start: 12-27-2023 End: 12-28-2023 ambulatory [facility] Start: 12-27-2023 End: 12-27-2023 ambulatory EMEKA Wood [facility] Start: 12-12-2023 End: 12-12-2023 Office outpatient new 60 minutes Bryan Luz MD Work Phone: [facility] Comment on above: Senile osteoporosis (Primary Dx); Neurogenic claudication due to lumbar spinal stenosis; Lumbosacral radiculopathy; Degenerative disc disease, lumbar; H/O arthrodesis Start: 12-12-2023 End: 12-12-2023 ambulatory [facility] Ambulatory Start: 12-06-2023 End: 12-06-2023 ambulatory JASMINE [facility] Start: 11-17-2023 End: 11-17-2023 Office outpatient visit 15 minutes Mauricio Mancilla PA-C Work Phone: [facility] Comment on above: Neurogenic claudicat ion due to lumbar spinal stenosis (Primary Dx); Lumbosacral radiculopathy; Degenerative disc disease, lumbar; Chronic pain syndrome; H/O arthrodesis; Rheumatoid arthritis involving multiple sites, unspecified whether rheumatoid factor present (Multi) Start: 11-17-2023 End: 11-17-2023 ambulatory MAURICIO MANCILLA [facility] Start: 11-10-2023 End: 11-10-2023 Office outpatient visit 25 minutes Jasmine Mathias MD Work Phone: [facility] Comment on above: Anxiety; Chronic pain syndrome; Primary hypertension; Hypercholesteremia; Osteoporosis, unspecified osteoporosis type, unspecified pathological fracture presence; Primary generalized (osteo)arthritis; Rheumatoid arthritis involving multiple sites, unspecified whether rheumatoid factor present (Multi); Gastroesophageal reflux disease without esophagitis; Vitamin D deficiency; Edema, unspecified type; Class 2 severe obesity with serious comorbidity and body mass index (BMI) of 35.0 to 35.9 in adult, unspecified obesity type (Multi) Start: 11-10-2023 End: 11-10-2023 ambulatory JASMINE [facility] Start: 11-04-2023 End: 11-04-2023 ambulatory [facility] Start: 11-04-2023 End: 11-04-2023 Encounter for general adult medical examination without abnormal findings JASMINE Logan [facility] Start: 09-22-2023 End: 09-22-2023 Office outpatient visit 15 minutes Mauricio Mancilla PA-C Work Phone: [facility] Comment on above: Neurogenic claudicat ion due to lumbar spinal stenosis (Primary Dx); Lumbosacral radiculopathy; Spondylosis of lumbosacral region, unspecified spinal osteoarthritis complication status; S/P spinal fusion; Degenerative disc disease, lumbar; Other chronic pain Start: 09-22-2023 End: 09-22-2023 ambulatory MAURICIO MANCILLA [facility] Start: 09-05-2023 End: 09-05-2023 ambulatory JASMINE Logan [facility] Start: 08-26-2023 End: 08-26-2023 Subsequent hospital visit by physician Suresh Alvarado 2 [facility] Comment on above: Arrived Start: 08-26-2023 End: 08-26-2023 Subsequent hospital visit by physician Smith Estrada DO Work Phone: [facility] [place] Comment on above: Lumbosacral radiculo taina; Neurogenic claudication due to lumbar spinal stenosis; Degenerative disc disease, lumbar; Other chronic pain Start: 08-15-2023 End: 08-15-2023 Office outpatient visit 15 minutes Jasmine Mathias MD Work Phone: [facility] Comment on above: Acute sinusitis, rec urrence not specified, unspecified location (Primary Dx) Start: 08-09-2023 End: 08-09-2023 Office outpatient visit 25 minutes Mauricio Mancilla PA-C Work Phone: [facility] Comment on above: Lumbosacral radiculo taina (Primary Dx); Neurogenic claudication due to lumbar spinal stenosis; H/O arthrodesis; Rheumatoid arthritis involving multiple sites, unspecified whether rheumatoid factor present (Multi) Start: 07-27-2023 End: 07-27-2023 Subsequent hospital visit by physician Suresh X-Ray Fluoro 1 [facility] Comment on above: Neurogenic claudicat ion due to lumbar spinal stenosis; Lumbosacral radiculopathy Start: 07-26-2023 End: 07-26-2023 Office outpatient visit 25 minutes Mauricio Mancilla PA-C Work Phone: [facility] Comment on above: Lumbosacral radiculo taina (Primary Dx); Neurogenic claudication due to lumbar spinal stenosis; Spondylosis of lumbosacral region, unspecified spinal osteoarthritis complication status; Cervical neuritis; Rheumatoid arthritis involving multiple sites, unspecified whether rheumatoid factor present (Multi); S/P lumbar spinal fusion; Degenerative disc disease, lumbar; Other chronic pain Start: 05-19-2023 End: 05-19-2023 Subsequent hospital visit by physician Suresh Bermudez10 Mammo [facility] Comment on above: Encounter for screen ing mammogram for breast cancer Start: 05-13-2023 End: 05-13-2023 Assay of hemosiderin, quant Jasmine Mathias MD Work Phone: [facility] Work Phone: Start: 05-13-2023 End: 05-13-2023 Patient encounter procedure Jasmine Mathias MD Work Phone: [facility] Comment on above: Routine general medi toyin examination at health care facility (Primary Dx); Anxiety; Chronic pain syndrome; Primary hypertension; Hypercholesteremia; Osteoporosis, unspecified osteoporosis type, unspecified pathological fracture presence; Primary generalized (osteo)arthritis; Rheumatoid arthritis involving multiple sites, unspecified whether rheumatoid factor present ([facility]); Gastroesophageal reflux disease without esophagitis; Vitamin D deficiency; Edema, unspecified type; Encounter for screening mammogram for breast cancer; Class 2 severe obesity with serious comorbidity and body mass index (BMI) of 35.0 to 35.9 in adult, unspecified obesity type ([facility]) Start: 05-05-2023 End: 05-05-2023 Office outpatient visit 10 minutes Roderick Jeter DPM Work Phone: [facility] Comment on above: History of bunionect harshad of left great toe (Primary Dx); Primary osteoarthritis of left foot; Arthritis of foot, right Start: 04-05-2023 End: 04-05-2023 Office outpatient visit 25 minutes Mauricio Mancilla PA-C Work Phone: [facility] Comment on above: Cervical neuritis (P rimary Dx); Chronic pain syndrome; Arthrodesis status; Cervical spondylosis; H/O arthrodesis; Degenerative disc disease, lumbar; Other chronic pain Start: 03-24-2023 End: 03-24-2023 Office outpatient visit 10 minutes Roderick Jeter DPM Work Phone: [facility] Comment on above: History of bunionect harshad of left great toe (Primary Dx); Hammer toe of second toe of left foot; Primary osteoarthritis of left foot; Arthritis of foot, right; Bunion of great toe of right foot Start: 03-04-2023 End: 03-04-2023 Subsequent hospital visit by physician Suresh Best C-Arm 1 [facility] Comment on above: Arrived Start: 03-04-2023 End: 03-04-2023 Subsequent hospital visit by physician Matt Lombardo MD Work Phone: [facility] [place] Comment on above: Cervical radiculitis Start: 02-24-2023 End: 02-24-2023 Postop follow up visit related to original px Roderick Jeter DPM Work Phone: [facility] Comment on above: History of bunionect harshad of left great toe (Primary Dx); Hammer toe of second toe of left foot Start: 02-03-2023 End: 02-03-2023 Postop follow up visit related to original px Roderick Jeter DPM Work Phone: [facility] Comment on above: History of bunionect harshad of left great toe (Primary Dx); Hammer toe of second toe of left foot Start: 02-02-2023 End: 02-02-2023 Office outpatient visit 25 minutes Mary Carmen Tovar MD Work Phone: [facility] Comment on above: Age-related osteopor osis without current pathological fracture (Primary Dx) Start: 01-25-2023 End: 01-25-2023 Office outpatient visit 25 minutes Mauricio Mancilla PA-C Work Phone: [facility] Comment on above: Neurogenic claudicat ion due to lumbar spinal stenosis (Primary Dx); Cervical neuritis; Chronic pain syndrome; Cervical stenosis of spinal canal; Cervical radiculitis Start: 01-20-2023 End: 01-20-2023 Postop follow up visit related to original px Roderick Jeter DPM Work Phone: [facility] Comment on above: Hammer toe of second toe of left foot (Primary Dx); Hallux abductovalgus with bunions, left; History of bunionectomy of left great toe Start: 01-19-2023 Orders Only Roderick Jeter DPM Work Phone: [facility] Start: 01-13-2023 Orders Only Roderick Jeter DPM Work Phone: [facility] Comment on above: Post-op pain (Primar y Dx) Start: 01-11-2023 Orders Only Roderick Jeter DPM Work Phone: [facility] Comment on above: Post-op pain (Primar y Dx) Start: 01-07-2023 End: 01-07-2023 Postop follow up visit related to original px Roderick OCASIOM Work Phone: [facility] Comment on above: Postop check (Primar y Dx); History of bunionectomy of left great toe Start: 01-03-2023 End: 01-03-2023 Office outpatient visit 15 minutes Roderick Jeter DPM Work Phone: [facility] Comment on above: Dislocated toe, left , initial encounter (Primary Dx); Acquired hammer toe deformity of lesser toe of left foot; Hallux abductovalgus with bunions, left Start: 12-31-2022 End: 01-01-2023 ambulatory [facility] Start: 12-31-2022 ambulatory [facility] Start: 12-31-2022 Encounter for other preprocedural examination [facility] Start: 12-27-2022 Admission to [facility] Roderick Jeter DPM Work Phone: [facility] Comment on above: Hallux abductovalgus with bunions, left (Primary Dx); Dislocated toe, left, sequela Start: 12-27-2022 ambulatory [facility] Start: 12-27-2022 End: 12-27-2022 Office outpatient visit 15 minutes Roderick Jeter DPM Work Phone: [facility] Comment on above: Dislocated toe, left , initial encounter (Primary Dx); Hammer toe of second toe of left foot; Bunion of great toe of left foot; Acquired hammer toe deformity of lesser toe of left foot Start: 12-26-2022 End: 12-26-2022 Emergency department patient visit Zachery Perez MD Work Phone: [facility] Comment on above: Fall, initial encoun ter (Primary Dx); Contusion of left foot, initial encounter Start: 12-21-[address] Jasmine Mathias Facility:[id number] Start: 12-20-[address] Jasmine Mathias Facility:[id number] Start: 12-16-2022 Patient encounter procedure Jasmine Mathias Work Phone: [facility] Work Phone: Start: 12-16-[address] Jasmine Mathias Facility:[id number] Start: 12-08-2022 End: 12-08-2022 Office outpatient visit 15 minutes Ana Estrada MD Work Phone: [facility] Comment on above: Seasonal allergies ( Primary Dx) Start: 11-11-[address] Jasmine Mathias Facility:[id number] Start: 11-10-2022 End: 11-10-2022 Office outpatient visit 25 minutes Jasmine Mathias MD Work Phone: [facility] Comment on above: Primary hypertension (Primary Dx); Neck pain; Anxiety; Chronic pain syndrome; Hypercholesteremia; Osteoporosis, unspecified osteoporosis type, unspecified pathological fracture presence; Primary generalized (osteo)arthritis; Rheumatoid arthritis involving multiple sites, unspecified whether rheumatoid factor present ([facility]); Class 1 obesity with serious comorbidity and body mass index (BMI) of 34.0 to 34.9 in adult, unspecified obesity type; Gastroesophageal reflux disease without esophagitis; Vitamin D deficiency Start: 09-30-2022 End: 09-30-2022 Office outpatient visit 15 minutes Jasmine Mathias MD Work Phone: [facility] Comment on above: Closed fracture of o ne rib of right side, initial encounter (Primary Dx) Start: 09-27-2022 [id number] Start: 09-27-2022 [facility]ulatory [id number] Start: 09-27-2022 End: 09-27-2022 Emergency department patient visit Nena Aguilar [facility] Start: 05-12-2022 Adv care pln tlkd & alt dcsn maker docd Jasmine Humphriesorf Work Phone: [employer] [facility] Work Phone: Start: 05-12-2022 Patient encounter procedure Jasmine Mathias [facility] [place] Start: 05-12-[address] Jasmine Mathias Facility:[id number] Start: 05-10-2022 End: 05-10-2022 Emergency department patient visit Nena Aguilar [facility] Start: 05-05-2022 Chart Update Jasmine Mathias Work Phone: [employer] [facility] Work Phone: Start: 05-03-2022 Rx Renewal Jasmine Mathias Work Phone: [employer] [facility] Work Phone: Start: 04-07-2022 End: 04-07-2022 Postop follow up visit related to original px Delvis Moncada MD Work Phone: [facility] Comment on above: Postoperative follow -up (Primary Dx) Start: 03-09-2022 Chart Update Jasmine Mathias Work Phone: [employer] [facility] Work Phone: Start: 03-08-[address] Jasmine Mathias Facility:[id number] Start: 03-02-2022 End: 03-02-2022 Postop follow up visit related to original px Maira Hamilton CNP Work Phone: [facility] Comment on above: Encounter for surgic al aftercare following surgery of digestive system (Primary Dx) Start: 02-24-[address] Mary Carmen Tovar Facility:[id number] Start: 02-22-[address] Jasmine Mathias Facility:[facility] Start: 02-22-2022 Rx Renewal Jasmine Mathias Work Phone: [facility] Work Phone: Start: 02-17-2022 AUDIT Jasmine Doreen Humphriestherese Work Phone: [facility] Work Phone: Start: 02-15-2022 End: 02-15-2022 ambulatory JASMINE RAY [facility] Start: 02-11-2022 AUDIT Jasminemarilee Mathias Work Phone: [facility] Work Phone: Start: 02-02-2022 Encounter for other preprocedural examination SKYE OSPINA [facility] Start: 02-02-2022 End: 02-06-2022 ambulatory BECKIE REYES [facility] Start: 02-02-2022 Preprocedural examin ation done Maira Yuniorzia [facility] Work Phone: [facility] Start: 02-01-2022 Office outpatient vi sit 25 minutes Jasmine Mathias Work Phone: [facility] Work Phone: Start: 02-01-[address] Jasmine Mathias Facility:[id number] Start: 01-26-[address] Jasmine Mathias Facility:[id number] Start: 01-21-2022 End: 01-21-2022 Office outpatient visit 25 minutes Delvis Moncada MD Work Phone: [facility] Comment on above: Hiatal hernia with G ERD without esophagitis (Primary Dx) Start: 01-19-2022 Patient encounter procedure Jasmine Mathias Work Phone: [facility] 300 Work Phone: Start: 01-19-[address] Corby Jacobs Facility:[id number] Start: 01-14-2022 End: 01-15-2022 ambulatory JASMINEMARILEE RAY [facility] Start: 01-12-[address] Corby Jacobs Facility:[id number] Start: 01-05-2022 Patient encounter procedure Jasmine Mathias Work Phone: [facility] 300 Work Phone: Start: 01-05-[address] Jasmine Mathias Facility:[id number] Start: 01-04-2022 End: 01-04-2022 Office outpatient visit 25 minutes Mary Carmen Tovar MD Work Phone: [facility] Comment on above: Age-related osteopor osis without current pathological fracture (Primary Dx) Start: 12-10-2021 Office outpatient vi sit 15 minutes Jasmine Mathias Work Phone: [facility] 300 Work Phone: Start: 12-10-2021 Patient encounter procedure Jasmine Mathias Work Phone: [facility] 300 Work Phone: Start: 12-10-[address] Corby Jacobs Facility:[id number] Start: 11-26-2021 End: 11-26-2021 Office outpatient new 45 minutes Delvis Moncada MD Work Phone: [facility] Comment on above: Esophageal dysphagia (Primary Dx); Heartburn; Status post laparoscopic Rosalva fundoplication Start: 11-11-2021 Office outpatient vi sit 25 minutes Jasmine Mathias Work Phone: [facility] 205 DO Work Phone: Start: 10-02-2021 AUDIT Jasmine Mathias Work Phone: [facility] 205 DO Work Phone: Start: 07-20-2021 Rx Renewal Jasmine Mathias Work Phone: [facility] 205 DO Work Phone: Start: 07-16-2021 Rx Renewal Jasmine Mathias Work Phone: [facility] Work Phone: Start: 06-26-2021 AUDIT Jasmine Mathias Work Phone: [facility] 205 DO Work Phone: Start: 06-11-2021 Rx Renewal Jasmine Mathias Work Phone: [facility] Work Phone: Start: 05-25-2021 [facility] Phone: [facility] Work Phone: Start: 05-13-2021 Adv care pln tlkd & alt dcsn maker docd Jasmine Mathias Work Phone: [facility] Work Phone: Start: 03-26-2021 End: 03-26-2021 Emergency department patient visit [facility] Start: 02-16-2021 AUDIT Jasmine Mathias Work Phone: [facility] Work Phone: Start: 01-27-2021 AUDIT Jasmine Mathias Work Phone: [facility] Work Phone: Start: 11-25-2020 End: 11-25-2020 Office outpatient visit 15 minutes Nevaeh Hartman [facility] Work Phone: [facility] Comment on above: Primary osteoarthrit is of left foot (Primary Dx); Contusion of left foot, initial encounter; Recurrent tinea pedis Start: 11-06-2020 AUDIT Jasmine Mathias Work Phone: [facility] 205 DO Work Phone: Start: 11-05-2020 EPV, Provider: Jasmine Mathias, Status: Pen, Time: 9:40 AM Jasmine Mathias Work Phone: [facility] Work Phone: Start: 11-05-2020 Office outpatient vi sit 25 minutes Jasmine Mathias Work Phone: [facility] Work Phone: Start: 11-03-2020 Chart Update Jasmine Mathias Work Phone: [facility] Work Phone: Start: 10-28-2020 End: 10-28-2020 Office outpatient visit 15 minutes Nevaeh Hartman [facility] Work Phone: [facility] Comment on above: Contusion of left fo ot, initial encounter (Primary Dx); Primary osteoarthritis of left foot; Left foot pain Start: 10-27-2020 Chart Update Jasmine Mathias Work Phone: [facility] Work Phone: Start: 10-26-2020 End: 10-26-2020 Emergency department patient visit Anders Pierce [facility] Emergency 11 Start: 10-01-2020 Rx Renewal Jasmine Mathias Work Phone: [facility] Work Phone: Start: 09-15-2020 Patient encounter procedure Jasmine Mathias Work Phone: [facility] Work Phone: Start: 08-21-2020 AUDIT Jasmine Mathias Work Phone: [facility] Work Phone: Start: 05-07-2020 Patient encounter procedure Jasmine Mathias [facility] Work Phone: Start: 05-05-2020 End: 05-05-2020 Orders Only Susan Levy Work Phone: [facility] Start: 04-29-2020 Patient encounter procedure [email or web address] Work Phone: Start: 04-18-2020 Patient encounter procedure [facility] Work Phone: Start: 03-05-2020 Patient encounter procedure [facility] [employer] Work Phone: Start: 01-16-2020 Patient encounter procedure [facility] [employer] Work Phone: Start: 01-03-2020 End: 01-03-2020 Office outpatient visit 15 minutes Mary Carmen Tovar Work Phone: [facility] Comment on above: Age-related osteopor osis without current pathological fracture (Primary Dx) Start: 11-21-2019 Patient encounter procedure [facility] Work Phone: Start: 06-11-2019 End: 06-11-2019 Subsequent hospital visit by physician Diego José Work Phone: [facility] Comment on above: Bilateral pubic rami fractures (HCC) Start: 06-11-2019 End: 06-11-2019 Office outpatient new 30 minutes Diego José Work Phone: [facility] Comment on above: Left hip pain (Prima ry Dx) Start: 05-23-2019 Patient encounter procedure [facility]asmine [facility] Work Phone: Start: 02-20-2019 End: 02-20-2019 Patient encounter procedure Mary Carmen Tovar Work Phone: [facility] Comment on above: Age-related osteopor osis without current pathological fracture (Primary Dx) Start: 02-01-2019 End: 02-01-2019 Orders Only Mary Carmen Tovar Work Phone: [facility] Comment on above: Age-related osteopor osis without current pathological fracture (Primary Dx) Start: 01-24-2019 Patient encounter procedure Jasmine Mathias [facility] Work Phone: Start: 12-29-2018 End: 12-29-2018 Outside Orders Historical Provider [facility] Start: 12-27-2018 End: 12-27-2018 Telephone encounter Simin Guardadosailaja [facility] Comment on above: Other (Infusion) Start: 03-13-2018 End: 03-14-2018 Patient encounter procedure Delvis Moncada Facility:[place] Start: 03-09-2018 End: 03-09-2018 Office outpatient visit 25 minutes Delvis Kelly Antwan Work Phone: [facility] Comment on above: Hiatal hernia with G ERD without esophagitis (Primary Dx) Start: 02-03-2018 End: 02-03-2018 Office outpatient visit 25 minutes Delvis Moncada Work Phone: [facility] Comment on above: Hiatal hernia with G ERD without esophagitis (Primary Dx) Start: 12-15-2017 End: 12-15-2017 Office outpatient visit 15 minutes Manchesterayad Moncada Work Phone: [facility] Comment on above: Hiatal hernia with G ERD without esophagitis (Primary Dx) Start: 11-15-2017 End: 11-15-2017 Patient encounter procedure Delvis Moncada Facility:[place] Start: 10-20-2017 End: 10-20-2017 Office outpatient visit 25 minutes Delvis [facility]ada [facility] Start: 08-24-2017 End: 08-24-2017 Office/outpatient visit, est, level 3 Delvisyaad Kelly Antwan Work Phone: [facility] Start: 08-16-2017 End: 08-16-2017 Patient encounter procedure Delvis Moncada Facility:[place] Start: 07-27-2017 End: 07-27-2017 Office/outpatient visit, new, level 4 Jasmine Mathias Work Phone: [facility] Start: 07-25-2017 End: 07-25-2017 Office/outpatient visit, est, level 3 Yung Hernández Work Phone: [facility] Start: 06-27-2015 Patient encounter status Nevaeh Hartman DPM Work Phone: [facility] Work Phone: Patient encounter procedure Jasmine Mathias Work Phone: [facility] Work Phone: Procedures Date Procedure Procedure Detail Performing Clinician Start: 09-14-2024 Follow-up visit Follow-up BAR TRIANA JR. Start: 09-10-2024 Comprehensive metabolic panel Sanjuana Stroud DO Work Phone: Start: 08-10-2024 X-ray of cervical spine Dr. Jasmine Mathias MD Work Phone: Start: 07-17-2024 Mri spinal canal cervical w/o & w/contr matrl Celeste Moran MANAGER [employer]GANIZATIONAL-[employer]ER [employer]ER Work Phone: Start: 07-10-2024 US Abdomen Soraya Hernandez MD Work Phone: Start: 06-26-2024 End: 06-26-2024 Radex shoulder complete minimum 2 views Jasmine Mathias MD Work Phone: Start: 06-06-2024 FL PAIN MANAGEMENT Mauricio Mancilla PA-C Work Phone: Start: 06-06-2024 Njx anes&/strd w/img tfrml edrl lmbr/sac 1 lvl Mauricio Mancilla PA-C Work Phone: Start: 06-05-2024 End: 06-05-2024 Screening digital breast tomosynthesis bi Jasmine Mathias MD Work Phone: Start: 05-09-2024 Lipid 1996 panel - Serum or Plasma Johanny Mathias MD Work Phone: Start: 05-07-2024 POCT SARS-COV-2/FLU/RSV PCR SYMPTOMATIC Nena Aguilar MANAGER ORGANIZATIONAL-P[employer]ER [employer]ELER Work Phone: Start: 02-13-2024 Dxa bone density study 1/> sites axial skel Bryan Luz MD Work Phone: Start: 02-01-2024 Bone length studies Bryan Luz MD Work Phone: Start: 12-30-2023 Sars-cov-2 detection by dna/rna Shweta Brar MANAGER ORGANIZATIONAL-P[employer]ER [employer]ER Work Phone: Start: 11-04-2023 Lipid 1995 panel - Serum or Plasma Johanny Mathias MD Work Phone: Start: 08-26-2023 XR tomography Unspecified body region Mauricio Talavera [employer] PA-C Work Phone: Start: 07-27-2023 Mri spinal canal lumbar w/o contrast material Mauricio C [employer] PA-C Work Phone: Start: 05-19-2023 End: 05-19-2023 Screening digital breast tomosynthesis bi Jasmine Mathias MD Work Phone: Start: 05-06-2023 Lipid 1996 panel - Serum or Plasma Johanny Mathias MD Work Phone: Start: 03-04-2023 Fluor needle/cath spine/paraspinal dx/ther jason Lombardo MD Work Phone: Start: 01-07-2023 Radex foot complete minimum 3 views Roderick Jeter DPM Work Phone: Start: 12-26-2022 Radex foot complete minimum 3 views Zachery Perez MD Work Phone: Start: 11-02-2022 Lipid 1995 panel - Serum or Plasma Johanny Mathias MD Work Phone: Start: 05-05-2022 Lipid 1995 panel - Serum or Plasma Johanny Mathias MD Work Phone: Start: 03-08-2022 Mammography Jasmine Mathias MD Work Phone: Start: 08-15-2020 Epidural steroid injection Jasmine Mathias Work Phone: Comment on above: Caudal HERMELINDA; Start: 05-07-2020 Blood count complete auto&auto difrntl wbc Jsamine Mathias Start: 05-07-2020 Comprehensive metabolic 2000 panel Johanny greenwood Vic Start: 05-07-2020 Cyanocobalamin vitamin b-12 Jasmine Mathias Start: 05-07-2020 Lipid panel Jasmine Mathias Start: 05-07-2020 TSH WITH REFLEX TO FREE T4 IF ABNORMAL Jasmine Mathias Start: 05-02-2020 Epidural steroid injection Jasmine Mathias Work Phone: Comment on above: Lt L5+S1 TFESI; Start: 06-11-2019 Radiologic exam pelvis compl minimum 3 views Diego Leonardosouleymane José Work Phone: Start: 12-29-2018 ORDERS (OUTSIDE) Historical Provider Start: 01-28-2015 Colonoscopy Susan Levy Start: 11-28-2014 Mammography Susan Levy Appendectomy Jasmine Mathias Bilateral salpingect harshad with oophorectomy Jasmine Mathias End: 05-02-2020 Epidural steroid injection Jasmine Mathias Esophagogastroduodenoscopy Gualberto Mathias Hernia repair Jasmine Mathias Laparoscopic fundoplication Jasmine Mathias Ligation of fallopian tube K britni Mathias Operative procedure on foot Jasmine Mathias Operative procedure on knee Jasmine Mathias Pelvis repair Jasmine Mathias Comment on above: CEMENT; Procedure on back Jasmine Mathias Prosthetic arthroplasty of the hip Jasmine Mathias Comment on above: RIGHT HIP 2010; Repair of rectocele Abbi Mathias Tonsillectomy Jasmine Mathias Total abdominal hysterectomy Jasmine Mathias Total replacement of hip Marysol Mathias Work Phone: Comment on above: RIGHT HIP 2010; Plan of Treatment Date Care Activity Detail Author Start: 05-09-2029 Lipid panel Lipid Panel [facility] Start: 04-27-2029 DTaP/Tdap/Td Vaccines (2 - Td or Tdap) DTaP/Tdap/Td Vaccines (2 - Td or Tdap) [facility] Start: 04-27-2029 Tetanus vaccination [facility] Start: 11-03-2028 Lipid panel Lipid Panel [facility] Start: 05-06-2028 Lipid panel Lipid Panel [facility] Start: 11-03-2027 Lipid panel Lipid Panel [facility] Start: 05-05-2027 Lipid panel Lipid Panel [facility] Start: 02-12-2026 Screening for osteoporosis Bone Density Scan [facility] Start: 06-05-2025 Screening for malignant neoplasm of breast Mammogram [facility] Start: 05-15-2025 Medicare Annual Wellness Visit Medicare Annual Wellness Visit (AWV) [facility] Start: 05-14-2025 Medicare Wellness Visit Medicare Wellness Visit [facility] Start: 04-19-2025 End: 04-19-2025 Patient encounter procedure 04/19/2025 8:30 AM EST Office Visit [address] [phone] Mary Carmen Tovar MD [address] [place] [id number] [facility] Start: 03-06-2025 Diabetes mellitus screening Diabetes Screening [facility] Start: 01-28-2025 Screening for malignant neoplasm of colon [facility] Start: 11-12-2024 End: 11-12-2024 Patient encounter procedure 11/12/2024 9:20 AM EDT Office Visit [address] [phone] Jasmine Mathias MD [address] [place] [phone] [facility] Start: 11-11-2024 End: 05-14-2025 CBC W Auto Differential panel - Blood CBC and Auto Differential Lab Routine Primary hypertension Hypercholesteremia Primary generalized (osteo)arthritis Rheumatoid arthritis involving multiple sites, unspecified whether rheumatoid factor present (Multi) Expected: 11/11/2024 (Approximate), Expires: 05/14/2025 [facility] Work Phone: Comment on above: Expected: 11/11/2024 (Approximate), Expi res: 05/14/2025 Start: 11-11-2024 End: 05-14-2025 Cobalamin (Vitamin B12) [Mass/volume] in Serum or Plasma Vitamin B12 Lab Routine Primary hypertension Hypercholesteremia Primary generalized (osteo)arthritis Rheumatoid arthritis involving multiple sites, unspecified whether rheumatoid factor present (Multi) Expected: 11/11/2024 (Approximate), Expires: 05/14/2025 [facility] Work Phone: Comment on above: Expected: 11/11/2024 (Approximate), Expi res: 05/14/2025 Start: 11-11-2024 End: 05-14-2025 Comprehensive metabolic 2000 panel - Serum or Plasma Comprehensive Metabolic Panel Lab Routine Primary hypertension Hypercholesteremia Primary generalized (osteo)arthritis Rheumatoid arthritis involving multiple sites, unspecified whether rheumatoid factor present (Multi) Expected: 11/11/2024 (Approximate), Expires: 05/14/2025 [facility] Work Phone: Comment on above: Expected: 11/11/2024 (Approximate), Expi res: 05/14/2025 Start: 11-11-2024 End: 05-14-2025 Lipid 1996 panel - Serum or Plasma Lipid Panel Lab Routine Primary hypertension Hypercholesteremia Primary generalized (osteo)arthritis Rheumatoid arthritis involving multiple sites, unspecified whether rheumatoid factor present (Multi) Expected: 11/11/2024 (Approximate), Expires: 05/14/2025 [facility] Work Phone: Comment on above: Expected: 11/11/2024 (Approximate), Expi res: 05/14/2025 Start: 11-11-2024 End: 05-14-2025 TSH with reflex to Free T4 if abnormal TSH with reflex to Free T4 if abnormal Lab Routine Primary hypertension Hypercholesteremia Primary generalized (osteo)arthritis Rheumatoid arthritis involving multiple sites, unspecified whether rheumatoid factor present (Multi) Expected: 11/11/2024 (Approximate), Expires: 05/14/2025 [facility] Work Phone: Comment on above: Expected: 11/11/2024 (Approximate), Expi res: 05/14/2025 Start: 09-14-2024 End: 09-14-2024 Patient encounter procedure 09/14/2024 8:15 AM EDT Office Visit [facility] [address] [place] [phone] Bar Triana Jr., DPM [address] [place] [address] [facility] Start: 08-10-2024 X-ray of cervical spine Cerv Spine 4 or 5 Views [facility] Start: 08-10-2024 XR Cervical spine 4 or 5 Views [facility] Start: 07-18-2024 End: 07-18-2024 Patient encounter procedure 07/18/2024 1:00 PM EDT Office Visit [facility] [address] [place] [phone] Smith Estrada, [address] [place] [phone] [facility] Start: 07-17-2024 End: 07-17-2024 Patient encounter procedure 07/17/2024 9:30 AM EDT Appointment [address] [phone] [facility] Start: 07-16-2024 End: 07-16-2025 MR Cervical spine WO and W contrast IV MR cervical spine w and wo IV contrast Imaging Routine Cervical radiculitis Anterolisthesis of cervical spine Expected: 07/16/2024, Expires: 07/16/2025 [facility] Service Area Work Phone: Comment on above: Expected: 07/16/2024, Expires: Start: 06-26-2024 End: 06-26-2025 XR Cervical spine 4 or 5 Views [facility] Service Area Work Phone: Comment on above: Expected: 06/26/2024, Expires: Start: 06-25-2024 End: 06-25-2024 Patient encounter procedure 06/25/2024 10:15 AM EDT Office Visit [facility] [address] [place] [phone] Celeste Moran, MANAGER ORGANIZATIONAL-PAPER REELER [address] [place] [address] [facility] Start: 06-06-2024 End: 06-06-2024 Patient encounter procedure 06/06/2024 10:30 AM EDT Appointment [facility] [place] [address] [place] [phone] Smith Estrada DO [address] [place] [id number] [facility] [place] Start: 06-05-2024 End: 06-05-2024 Patient encounter procedure 06/05/2024 8:30 AM EDT Appointment [facility] [address] [place] [phone] [facility] Start: 05-23-2024 End: 05-23-2024 Patient encounter procedure 05/23/2024 9:15 AM EST Appointment [facility] [place] [address] [place] [phone] Smith Estrada DO [address] [place] [address] [facility] [place] Start: 05-19-2024 Screening for malignant neoplasm of breast Mammogram [facility] Start: 05-14-2024 End: 07-12-2025 DBT Breast - bilateral BI mammo bilateral screening tomosynthesis Imaging Routine Visit for screening mammogram Expected: 05/14/2024, Expires: 07/12/2025 [facility] Work Phone: Comment on above: Expected: 05/14/2024, Expires: Start: 05-14-2024 Medicare Annual Wellness Visit Medicare Annual Wellness Visit (AWV) [facility] Start: 05-14-2024 End: 05-14-2024 Patient encounter procedure [facility] Start: 05-13-2024 Medicare Wellness Visit Medicare Wellness Visit [facility] Start: 05-12-2024 End: 11-09-2024 25-hydroxyvitamin D3 [Mass/volume] in Serum or Plasma Vitamin D 25-Hydroxy,Total (for eval of Vitamin D levels) Lab Routine Primary hypertension Hypercholesteremia Osteoporosis, unspecified osteoporosis type, unspecified pathological fracture presence Rheumatoid arthritis involving multiple sites, unspecified whether rheumatoid factor present (Multi) Vitamin D deficiency Expected: 05/12/2024 (Approximate), Expires: 11/09/2024 [facility] Work Phone: Comment on above: Expected: 05/12/2024 (Approximate), Expi res: 11/09/2024 Start: 05-12-2024 End: 11-09-2024 CBC W Auto Differential panel - Blood CBC and Auto Differential Lab Routine Primary hypertension Hypercholesteremia Osteoporosis, unspecified osteoporosis type, unspecified pathological fracture presence Rheumatoid arthritis involving multiple sites, unspecified whether rheumatoid factor present (Multi) Expected: 05/12/2024 (Approximate), Expires: 11/09/2024 [facility] Work Phone: Comment on above: Expected: 05/12/2024 (Approximate), Expi res: 11/09/2024 Start: 05-12-2024 End: 11-09-2024 Cobalamin (Vitamin B12) [Mass/volume] in Serum or Plasma Vitamin B12 Lab Routine Primary hypertension Hypercholesteremia Osteoporosis, unspecified osteoporosis type, unspecified pathological fracture presence Rheumatoid arthritis involving multiple sites, unspecified whether rheumatoid factor present (Multi) Expected: 05/12/2024 (Approximate), Expires: 11/09/2024 [facility] Work Phone: Comment on above: Expected: 05/12/2024 (Approximate), Expi res: 11/09/2024 Start: 05-12-2024 End: 11-09-2024 Comprehensive metabolic 2000 panel - Serum or Plasma Comprehensive Metabolic Panel Lab Routine Primary hypertension Hypercholesteremia Osteoporosis, unspecified osteoporosis type, unspecified pathological fracture presence Rheumatoid arthritis involving multiple sites, unspecified whether rheumatoid factor present (Multi) Expected: 05/12/2024 (Approximate), Expires: 11/09/2024 [facility] Work Phone: Comment on above: Expected: 05/12/2024 (Approximate), Expi res: 11/09/2024 Start: 05-12-2024 End: 11-09-2024 Lipid 1996 panel - Serum or Plasma Lipid Panel Lab Routine Primary hypertension Hypercholesteremia Osteoporosis, unspecified osteoporosis type, unspecified pathological fracture presence Rheumatoid arthritis involving multiple sites, unspecified whether rheumatoid factor present (Multi) Expected: 05/12/2024 (Approximate), Expires: 11/09/2024 [facility] Work Phone: Comment on above: Expected: 05/12/2024 (Approximate), Expi res: 11/09/2024 Start: 05-12-2024 End: 11-09-2024 TSH with reflex to Free T4 if abnormal TSH with reflex to Free T4 if abnormal Lab Routine Primary hypertension Hypercholesteremia Osteoporosis, unspecified osteoporosis type, unspecified pathological fracture presence Rheumatoid arthritis involving multiple sites, unspecified whether rheumatoid factor present (Multi) Expected: 05/12/2024 (Approximate), Expires: 11/09/2024 [facility] Work Phone: Comment on above: Expected: 05/12/2024 (Approximate), Expi res: 11/09/2024 Start: 04-11-2024 End: 04-11-2025 FL pain management [place] pain management Imaging Routine Lumbosacral radiculopathy Expected: 04/11/2024, Expires: 04/11/2025 [facility] Work Phone: Comment on above: Expected: 04/11/2024, Expires: Start: 04-11-2024 End: 04-11-2025 Transforaminal Transforaminal Pain Management Routine Lumbosacral radiculopathy Expected: 04/11/2024, Expires: 04/11/2025 [facility] Service Area Work Phone: Comment on above: Expected: 04/11/2024, Expires: Start: 04-11-2024 End: 04-11-2024 Patient encounter procedure 04/11/2024 8:30 AM EST Office Visit [facility] [address] [place] [address] Mauricio Mancilla PA-C [address] [place] [address] [facility] Start: 04-09-2024 End: 04-09-2024 Patient encounter procedure 04/09/2024 1:30 PM EST Office Visit [address] [phone] Bryan Luz MD [address] [facility], [address] [address] [facility] Start: 03-19-2024 End: 03-19-2024 Patient encounter procedure 03/19/2024 10:00 AM EST Office Visit [address] [phone] Bryan Luz MD [address] [facility], [address] [address] [facility] Start: 02-17-2024 End: 02-16-2025 C-TELOPEPTIDE C-TELOPEPTIDE Lab Routine Age-related osteoporosis without current pathological fracture Expected: 02/17/2024, Expires: 02/16/2025 [facility] Comment on above: Expected: 02/17/2024, Expires: Start: 02-17-2024 End: 02-16-2025 Comprehensive metabolic 2000 panel - Serum or Plasma COMPREHENSIVE METABOLIC PANEL Lab Routine Age-related osteoporosis without current pathological fracture Expected: 02/17/2024, Expires: 02/16/2025 [facility] Comment on above: Expected: 02/17/2024, Expires: Start: 02-17-2024 End: 02-16-2025 CROSS-LINKED N-TELOPEP,UR CROSS-LINKED N-TELOPEP,UR Fluids Routine Age-related osteoporosis without current pathological fracture Expected: 02/17/2024, Expires: 02/16/2025 [facility] Comment on above: Expected: 02/17/2024, Expires: Start: 02-13-2024 Subsequent hospital visit by physician 02/13/2024 8:30 AM EST Hospital Encounter [place] [id number] [phone] [facility] Start: 02-02-2024 End: 02-02-2024 Patient encounter procedure 02/02/2024 2:15 PM EST Appointment [address] [phone] [facility] Start: 02-02-2024 End: 02-02-2024 ambulatory 02/02/2024 10:45 AM EST Treatment [address] [place] [address] Sherly Sweet STIPPLER [address] [place] [address] [facility] Start: 02-02-2024 End: 02-02-2024 Patient encounter procedure [facility] Start: 01-31-2024 End: 01-31-2024 ambulatory 01/31/2024 10:45 AM EST Treatment [address] [place] [address] Sherly Sweet STIPPLER [address] [place] [place] [address] [facility] Start: 01-30-2024 End: 01-29-2025 CT Hip - right WO contrast CT hip right wo IV contrast Imaging Routine 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HHS-HCC) Pain of right hip Expected: 01/30/2024, Expires: 01/29/2025 [facility] Work Phone: Comment on above: Expected: 01/30/2024, Expires: Start: 01-30-2024 End: 01-29-2025 CT Pelvis WO contrast CT pelvis wo IV contrast Imaging Routine 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HHS-HCC) Pain of right hip Expected: 01/30/2024, Expires: 01/29/2025 [facility] Service Area Work Phone: Comment on above: Expected: 01/30/2024, Expires: Start: 01-27-2024 Screening for osteoporosis Bone Density Scan [facility] Start: 01-13-2024 End: 01-13-2024 ambulatory 01/13/2024 10:00 AM EDT Treatment [address] [phone] Flor Marc, STIPPLER [address] [place] [address] [place] [address] [facility] Start: 01-12-2024 End: 01-12-2024 ambulatory 01/12/2024 10:00 AM EDT Treatment [address] [address] Sherly Sweet, STIPPLER [address] [facility] [place] [place] [address] [facility] Start: 01-10-2024 End: 01-10-2024 ambulatory 01/10/2024 10:00 AM EDT Treatment [place] [address] [place] [address] Sherly Sweet, STIPPLER [address] [facility] [place] [place] [address] [facility] Start: 01-06-2024 End: 01-06-2024 ambulatory 01/06/2024 10:00 AM EDT Treatment [address] [place] [address] Flor Marc, STIPPLER [address] [facility] Services [place] [phone] [facility] Start: 01-04-2024 End: 01-04-2024 Patient encounter procedure 01/04/2024 10:[address] [facility] [address] [facility] [address] [place] [address] [facility] Start: 01-03-2024 End: 01-03-2024 ambulatory 01/03/2024 10:00 AM EDT Treatment [address] [place] [address] Sherly Sweet, STIPPLER [address] [facility]hab [place] [phone] [facility] Start: 12-28-2023 End: 12-28-2023 Patient encounter procedure 12/28/2023 8:00 AM EDT Appointment [place] [id number] [place] [address] [facility] Start: 12-27-2023 End: 12-26-2024 XR Hip Views XR hip right with pelvis when performed 2 or 3 views Imaging Routine Right hip pain Expected: 12/27/2023, Expires: 12/26/2024 [facility] Service Area Work Phone: Comment on above: Expected: 12/27/2023, Expires: 5 Start: 12-27-2023 End: 12-26-2024 XR Pelvis 3 Views XR pelvis 3+ views Imaging Routine Right hip pain Expected: 12/27/2023, Expires: 12/26/2024 [facility] Work Phone: Comment on above: Expected: 12/27/2023, Expires: 5 Start: 12-12-2023 End: 12-11-2024 CT Lumbar spine WO contrast CT lumbar spine wo IV contrast Imaging Routine Neurogenic claudication due to lumbar spinal stenosis Lumbosacral radiculopathy Expected: 12/12/2023, Expires: 12/11/2024 [facility] Work Phone: Comment on above: Expected: 12/12/2023, Expires: Start: 12-12-2023 End: 12-11-2024 DXA Skeletal system.axial Views for bone density XR DEXA bone density axial skeleton w VFA Imaging Routine Senile osteoporosis Expected: 12/12/2023, Expires: 12/11/2024 [facility] Service Area Work Phone: Comment on above: Expected: 12/12/2023, Expires: 5 Start: 11-27-2023 COVID-19 Vaccine ( season) COVID-19 Vaccine ( season) [facility] Start: 11-27-2023 COVID-19 Vaccine ( season) COVID-19 Vaccine ( season) [facility] Start: 11-27-2023 Influenza vaccination Influenza Vaccine (#1) [facility] Start: 11-17-2023 End: 11-17-2023 Patient encounter procedure 11/17/2023 2:30 PM EDT Office Visit [facility] [address] [place] [address] Mauricio Mancilla PA-C [address] [place] [address] [facility] Start: 11-11-2023 End: 05-13-2024 25-hydroxyvitamin D3 [Mass/volume] in Serum or Plasma Vitamin D 25-Hydroxy,Total (for eval of Vitamin D levels) Lab Routine Anxiety Chronic pain syndrome Primary hypertension Hypercholesteremia Osteoporosis, unspecified osteoporosis type, unspecified pathological fracture presence Primary generalized (osteo)arthritis Rheumatoid arthritis involving multiple sites, unspecified whether rheumatoid factor present (CMS/HCC) Gastroesophageal reflux disease without esophagitis Vitamin D deficiency Edema, unspecified type Encounter for screening mammogram for breast cancer Routine general medical examination at health care facility Expected: 11/11/2023 (Approximate), Expires: 05/13/2024 [facility] Work Phone: Comment on above: Expected: 11/11/2023 (Approximate), Expi res: 05/13/2024 Start: 11-11-2023 End: 05-13-2024 CBC W Auto Differential panel - Blood CBC and Auto Differential Lab Routine Anxiety Chronic pain syndrome Primary hypertension Hypercholesteremia Osteoporosis, unspecified osteoporosis type, unspecified pathological fracture presence Primary generalized (osteo)arthritis Rheumatoid arthritis involving multiple sites, unspecified whether rheumatoid factor present (CMS/HCC) Gastroesophageal reflux disease without esophagitis Vitamin D deficiency Edema, unspecified type Encounter for screening mammogram for breast cancer Routine general medical examination at health care facility Expected: 11/11/2023 (Approximate), Expires: 05/13/2024 [facility] Work Phone: Comment on above: Expected: 11/11/2023 (Approximate), Expi res: 05/13/2024 Start: 11-11-2023 End: 05-13-2024 Cobalamin (Vitamin B12) [Mass/volume] in Serum or Plasma Vitamin B12 Lab Routine Anxiety Chronic pain syndrome Primary hypertension Hypercholesteremia Osteoporosis, unspecified osteoporosis type, unspecified pathological fracture presence Primary generalized (osteo)arthritis Rheumatoid arthritis involving multiple sites, unspecified whether rheumatoid factor present (CMS/HCC) Gastroesophageal reflux disease without esophagitis Vitamin D deficiency Edema, unspecified type Encounter for screening mammogram for breast cancer Routine general medical examination at health care facility Expected: 11/11/2023 (Approximate), Expires: 05/13/2024 [facility] Work Phone: Comment on above: Expected: 11/11/2023 (Approximate), Expi res: 05/13/2024 Start: 11-11-2023 End: 05-13-2024 Comprehensive metabolic 2000 panel - Serum or Plasma Comprehensive Metabolic Panel Lab Routine Anxiety Chronic pain syndrome Primary hypertension Hypercholesteremia Osteoporosis, unspecified osteoporosis type, unspecified pathological fracture presence Primary generalized (osteo)arthritis Rheumatoid arthritis involving multiple sites, unspecified whether rheumatoid factor present (CMS/HCC) Gastroesophageal reflux disease without esophagitis Vitamin D deficiency Edema, unspecified type Encounter for screening mammogram for breast cancer Routine general medical examination at health care facility Expected: 11/11/2023 (Approximate), Expires: 05/13/2024 [facility] Work Phone: Comment on above: Expected: 11/11/2023 (Approximate), Expi res: 05/13/2024 Start: 11-11-2023 End: 05-13-2024 Lipid 1996 panel - Serum or Plasma Lipid Panel Lab Routine Anxiety Chronic pain syndrome Primary hypertension Hypercholesteremia Osteoporosis, unspecified osteoporosis type, unspecified pathological fracture presence Primary generalized (osteo)arthritis Rheumatoid arthritis involving multiple sites, unspecified whether rheumatoid factor present (CMS/HCC) Gastroesophageal reflux disease without esophagitis Vitamin D deficiency Edema, unspecified type Encounter for screening mammogram for breast cancer Routine general medical examination at [facility] care facility Expected: 11/11/2023 (Approximate), Expires: 05/13/2024 [facility] Work Phone: Comment on above: Expected: 11/11/2023 (Approximate), Expi res: 05/13/2024 Start: 11-11-2023 End: 05-13-2024 TSH with reflex to Free T4 if abnormal TSH with reflex to Free T4 if abnormal Lab Routine Anxiety Chronic pain syndrome Primary hypertension Hypercholesteremia Osteoporosis, unspecified osteoporosis type, unspecified pathological fracture presence Primary generalized (osteo)arthritis Rheumatoid arthritis involving multiple sites, unspecified whether rheumatoid factor present (CMS/HCC) Gastroesophageal reflux disease without esophagitis Vitamin D deficiency Edema, unspecified type Encounter for screening mammogram for breast cancer Routine general medical examination at health care facility Expected: 11/11/2023 (Approximate), Expires: 05/13/2024 [facility] Work Phone: Comment on above: Expected: 11/11/2023 (Approximate), Expi res: 05/13/2024 Start: 11-10-2023 End: 11-10-2023 Patient encounter procedure 11/10/2023 9:00 AM EDT Office Visit [facility] [address] [place] [phone] Jasmine Mathias MD [address] [facility] [place] [address] [facility] Start: 08-09-2023 End: 08-08-2024 Transforaminal Transforaminal Procedures Routine Lumbosacral radiculopathy Neurogenic claudication due to lumbar spinal stenosis Expected: 08/09/2023 (Approximate), Expires: 08/08/2024 [facility] Service Area Work Phone: Comment on above: Expected: 08/09/2023 (Approximate), Expi res: 08/08/2024 Start: 08-09-2023 End: 08-09-2023 Patient encounter procedure 08/09/2023 8:00 AM EDT Office Visit [facility] [address] [place] [phone] Mauricio Mancilla PA-C [address] [place] [phone] [facility] Start: 08-04-2023 End: 08-04-2023 Patient encounter procedure 08/04/2023 9:00 AM EDT Office Visit [facility] [address] [place] [phone] Roderick Jeter, RYAN [address] [place] [address] [facility] Start: 07-27-2023 End: 07-27-2023 Patient encounter procedure 07/27/2023 7:30 AM EDT Appointment [facility] [address] [place] [address] [facility] Start: 07-26-2023 End: 07-25-2024 MR Lumbar spine WO contrast MR lumbar spine wo IV contrast Imaging Routine Neurogenic claudication due to lumbar spinal stenosis Lumbosacral radiculopathy Expected: 07/26/2023, Expires: 07/25/2024 [facility] Work Phone: Comment on above: Expected: 07/26/2023, Expires: Start: 07-26-2023 End: 07-25-2024 XR Lumbar spine 2 or 3 Views XR lumbar spine 2-3 views Imaging Routine Neurogenic claudication due to lumbar spinal stenosis Lumbosacral radiculopathy Expected: 07/26/2023 (Approximate), Expires: 07/25/2024 [facility] Service Area Work Phone: Comment on above: Expected: 07/26/2023 (Approximate), Expi res: 07/25/2024 Start: 07-05-2023 End: 07-05-2023 Patient encounter procedure 07/05/2023 9:45 AM EDT Office Visit [facility] [address] [place] [phone] Mauricio Mancilla PA-C [address] [place] [address] [facility] Start: 05-19-2023 End: 05-19-2023 Patient encounter procedure 05/19/2023 9:00 AM EST Appointment [facility] [address] [facility] [address] [place] [phone] [facility] Start: 05-13-2023 End: 11-11-2023 25-hydroxyvitamin D3 [Mass/volume] in Serum or Plasma Vitamin D, Total Lab Routine Vitamin D deficiency Expected: 05/13/2023 (Approximate), Expires: 11/11/2023 [facility] Work Phone: Comment on above: Expected: 05/13/2023 (Approximate), Expi res: 11/11/2023 Start: 05-13-2023 End: 11-11-2023 CBC W Auto Differential panel - Blood CBC and Auto Differential Lab Routine Anxiety Chronic pain syndrome Primary hypertension Hypercholesteremia Osteoporosis, unspecified osteoporosis type, unspecified pathological fracture presence Primary generalized (osteo)arthritis Rheumatoid arthritis involving multiple sites, unspecified whether rheumatoid factor present (CMS/HCC) Class 1 obesity with serious comorbidity and body mass index (BMI) of 34.0 to 34.9 in adult, unspecified obesity type Gastroesophageal reflux disease without esophagitis Vitamin D deficiency Expected: 05/13/2023 (Approximate), Expires: 11/11/2023 [facility] Work Phone: Comment on above: Expected: 05/13/2023 (Approximate), Expi res: 11/11/2023 Start: 05-13-2023 End: 11-11-2023 Cobalamin (Vitamin B12) [Mass/volume] in Serum or Plasma Vitamin B12 Lab Routine Anxiety Chronic pain syndrome Primary hypertension Hypercholesteremia Osteoporosis, unspecified osteoporosis type, unspecified pathological fracture presence Primary generalized (osteo)arthritis Rheumatoid arthritis involving multiple sites, unspecified whether rheumatoid factor present (CMS/HCC) Class 1 obesity with serious comorbidity and body mass index (BMI) of 34.0 to 34.9 in adult, unspecified obesity type Gastroesophageal reflux disease without esophagitis Vitamin D deficiency Expected: 05/13/2023 (Approximate), Expires: 11/11/2023 [facility] Work Phone: Comment on above: Expected: 05/13/2023 (Approximate), Expi res: 11/11/2023 Start: 05-13-2023 End: 11-11-2023 Comprehensive metabolic 2000 panel - Serum or Plasma Comprehensive Metabolic Panel Lab Routine Anxiety Chronic pain syndrome Primary hypertension Hypercholesteremia Osteoporosis, unspecified osteoporosis type, unspecified pathological fracture presence Primary generalized (osteo)arthritis Rheumatoid arthritis involving multiple sites, unspecified whether rheumatoid factor present (CMS/HCC) Class 1 obesity with serious comorbidity and body mass index (BMI) of 34.0 to 34.9 in adult, unspecified obesity type Gastroesophageal reflux disease without esophagitis Vitamin D deficiency Expected: 05/13/2023 (Approximate), Expires: 11/11/2023 [facility] Work Phone: Comment on above: Expected: 05/13/2023 (Approximate), Expi res: 11/11/2023 Start: 05-13-2023 End: 07-11-2024 DBT Breast - bilateral BI mammo bilateral screening tomosynthesis Imaging Routine Encounter for screening mammogram for breast cancer Expected: 05/13/2023, Expires: 07/11/2024 [facility] Service Area Work Phone: Comment on above: Expected: 05/13/2023, Expires: Start: 05-13-2023 End: 11-11-2023 Lipid 1996 panel - Serum or Plasma Lipid Panel Lab Routine Anxiety Chronic pain syndrome Primary hypertension Hypercholesteremia Osteoporosis, unspecified osteoporosis type, unspecified pathological fracture presence Primary generalized (osteo)arthritis Rheumatoid arthritis involving multiple sites, unspecified whether rheumatoid factor present (CMS/HCC) Class 1 obesity with serious comorbidity and body mass index (BMI) of 34.0 to 34.9 in adult, unspecified obesity type Gastroesophageal reflux disease without esophagitis Vitamin D deficiency Expected: 05/13/2023 (Approximate), Expires: 11/11/2023 [facility] Work Phone: Comment on above: Expected: 05/13/2023 (Approximate), Expi res: 11/11/2023 Start: 05-13-2023 Medicare Annual Wellness Visit Medicare Annual Wellness Visit (AWV) [facility] Start: 05-13-2023 End: 11-11-2023 TSH with reflex to Free T4 if abnormal TSH with reflex to Free T4 if abnormal Lab Routine Anxiety Chronic pain syndrome Primary hypertension Hypercholesteremia Osteoporosis, unspecified osteoporosis type, unspecified pathological fracture presence Primary generalized (osteo)arthritis Rheumatoid arthritis involving multiple sites, unspecified whether rheumatoid factor present (CMS/HCC) Class 1 obesity with serious comorbidity and body mass index (BMI) of 34.0 to 34.9 in adult, unspecified obesity type Gastroesophageal reflux disease without esophagitis Vitamin D deficiency Expected: 05/13/2023 (Approximate), Expires: 11/11/2023 [facility] Work Phone: Comment on above: Expected: 05/13/2023 (Approximate), Expi res: 11/11/2023 Start: 05-13-2023 End: 05-13-2023 Patient encounter procedure 05/13/2023 10:00 AM EST Office Visit [facility] [address] [place] [address] Jasmine Mathias MD [address] [facility] [place] [address] [facility] Start: 05-05-2023 End: 05-05-2023 Patient encounter procedure 05/05/2023 2:30 PM EST Office Visit [facility] [address] [place] [address] Roderick Jeter, RYAN [address] [place] [address] [facility] Start: 03-24-2023 End: 03-24-2023 Patient encounter procedure 03/24/2023 8:45 AM EST Office Visit [facility] [address] [place] [address] Roderick Jeter DPM [address] [place] [address] [facility] Start: 03-08-2023 Screening for malignant neoplasm of breast Mammogram [facility] Start: 03-03-2023 End: 03-03-2023 Follow-up encounter 03/03/2023 9:15 AM EST Follow-Up [facility] [address] [place] [address] Roderick Jeter DPM [address] [place] [address] [facility] Start: 02-03-2023 End: 02-03-2023 Follow-up encounter 02/03/2023 2:15 PM EST Follow-Up [facility] [address] [place] [phone] Roderick Jeter, RYAN [address] [place] [address] [facility] Start: 01-26-2023 Screening for osteoporosis Bone Density Scan [facility] Start: 01-25-2023 End: 01-25-2023 Patient encounter procedure 01/25/2023 9:15 AM EDT Office Visit [facility] [address] [place] [address] 2[address] [place] [address] Mauricio Mancilla PA-C [address] [place] [address] [place] [address] [facility] Start: 01-20-2023 End: 01-20-2023 Patient encounter procedure 01/20/2023 2:00 PM EDT Office Visit [facility] [address] [place] [address] Roderick Jeter DPM [address] [place] [address] [facility] Start: 01-10-2023 End: 01-10-2023 Patient encounter procedure 01/10/2023 1:45 PM EDT Office Visit [facility] [address] [place] [address] Roderick Jeter DPM [address] [place] [address] [facility] Start: 01-05-2023 End: 01-05-2023 Admission to same day surgery center 01/05/2023 10:19 AM EDT - 01/05/2023 12:39 PM EDT Surgery [facility] [address] [place] [address] Roderick Jeter DPM [address] [place] [address] OPEN REDUCTION INTERNAL pin fixation of dislocated 2nd hammer toe left [facility] Comment on above: OPEN REDUCTION INTERNAL pin fixation of dislocated 2nd hammer toe left Start: 01-05-2023 End: 01-05-2023 ARTHRODESIS METATARSAL PHALANGE ARTHRODESIS METATARSAL PHALANGE Hallux abductovalgus with bunions, left Dislocated toe, left, sequela 01/05/2023 10:19 AM EDT [facility] Start: 01-05-2023 End: 01-05-2023 OPEN REDUCTION INTERNAL FIXATION FOOT/TOE(S) OPEN REDUCTION INTERNAL FIXATION FOOT/TOE(S) Hallux abductovalgus with bunions, left Dislocated toe, left, sequela 01/05/2023 10:19 AM EDT [facility] Start: 01-05-2023 Subsequent hospital visit by physician [facility] Start: 01-03-2023 End: 01-03-2023 Patient encounter procedure 01/03/2023 11:00 AM EDT Office Visit [facility] [address] [place] [address] Roderick Jeter DPM [address] [place] [address] [facility] Start: 12-31-2022 End: 12-31-2022 Admission to establishment 12/31/2022 10:30 AM EDT Clinical Support [facility] Preadmission Testing [address] [place] [address] [facility] Start: 12-27-2022 End: 12-28-2023 12 lead ECG ECG 12 Lead ECG Routine Hallux abductovalgus with bunions, left Dislocated toe, left, sequela Expected: 12/27/2022, Expires: 12/28/2023 [facility] Comment on above: Expected: 12/27/2022, Expires: 4 Start: 12-27-2022 End: 12-28-2023 Basic metabolic 2000 panel - Serum or Plasma Basic metabolic panel Lab Routine Hallux abductovalgus with bunions, left Dislocated toe, left, sequela Expected: 12/27/2022, Expires: 12/28/2023 [facility] Comment on above: Expected: 12/27/2022, Expires: 4 Start: 12-27-2022 End: 12-28-2023 Complete blood count with white cell differential, manual CBC and differential Lab Routine Hallux abductovalgus with bunions, left Dislocated toe, left, sequela Expected: 12/27/2022, Expires: 12/28/2023 [facility] Work Phone: Comment on above: Expected: 12/27/2022, Expires: 4 Start: 12-27-2022 End: 01-27-2023 CT Foot Left Without Contrast CT Foot Left Without Contrast Imaging STAT Dislocated toe, left, initial encounter Hammer toe of second toe of left foot Expected: 12/27/2022, Expires: 01/27/2023 [facility] Work Phone: Comment on above: Expected: 12/27/2022, Expires: 3 Start: 11-26-2022 COVID-19 Vaccine ( season) COVID-19 Vaccine ( season) [facility] Start: 11-26-2022 Influenza vaccination [facility] Start: 11-10-2022 End: 11-11-2023 XR Cervical spine 4 or 5 Views XR cervical spine complete 4-5 views Imaging Routine Neck pain Expected: 11/10/2022, Expires: 11/11/2023 [facility] Service Area Work Phone: Comment on above: Expected: 11/10/2022, Expires: Start: 11-10-2022 EPV, Provider: Jasmine Mathias, Status: Pen, Time: 10:00 AM EPV, Provider: Jasmine Mathias, Status: Pen, Time: 10:00 AM [facility] Work Phone: Start: 11-10-2022 End: 11-10-2022 Patient encounter procedure 11/10/2022 10:00 AM EDT Office Visit [address] [id number] Jasmine Mathias MD [address] [place] [address] [place] [address] [facility] Start: 05-12-2022 EPV, Provider: Jasmine Mathias, Status: Pen, Time: 9:00 AM EPV, Provider: Jasmine Mathias, Status: Pen, Time: 9:00 AM [facility] Work Phone: Start: 05-12-2022 Patient [address] procedure [facility]patient [facility] Start: 12-May-2022 9:[address] [facility] Start: 04-01-2022 End: 04-01-2022 Patient encounter procedure 04/01/2022 Office Visit Heartburn Delvis Moncada MD [address] [place] [id number] [facility] Start: 03-03-2022 COVID-19 Vaccine (4 - Booster for Moderna series) COVID-19 Vaccine (4 - Booster for Moderna series) [facility] Start: 03-03-2022 COVID-19 Vaccine (4 - Moderna series) COVID-19 Vaccine (4 - Moderna series) [facility] Start: 02-02-2022 End: 02-02-2022 Admission to establishment 02/02/2022 Clinical Support Pre-Admission Testing [facility] Preadmission Testing Start: 01-19-2022 INJECTION, Provider: Corby Jacobs, Status: Pen, Time: 1:00 PM INJECTION, Provider: Corby Jacobs, Status: Pen, Time: 1:00 PM [facility] Work Phone: Start: 01-12-2022 INJECTION, Provider: Corby Jacobs, Status: Pen, Time: 1:00 PM INJECTION, Provider: Corby Jacobs, Status: Pen, Time: 1:00 PM [facility] Work Phone: Start: 12-21-2021 End: 12-21-2021 Admission to same day surgery center 12/21/2021 Surgery Delvis Moncada MD [address] [facility] [address] [place] [id number] ESOPHAGOGASTRODUODENOSCOPY WITH BIOPSY [facility] Comment on above: ESOPHAGOGASTRODUODENOSCOPY WITH BIOPSY Start: 12-21-2021 End: 12-21-2021 Esophagogastroduodenoscopy ESOPHAGOGASTRODUODENOSCOPY Esophageal dysphagia Heartburn Status post laparoscopic Rosalva fundoplication 12/21/2021 1:55 PM EDT [facility] Start: 12-21-2021 Subsequent hospital visit by physician 12/21/2021 Hospital Encounter Delvis Moncada MD [address] [place] [address] [facility] Start: 12-10-2021 NPV, Provider: Corby Jacobs, Status: Pen, Time: 9:30 AM NPV, Provider: Corby Jacobs, Status: Pen, Time: 9:30 AM [facility] 205 DO Work Phone: Start: 12-07-2021 End: 12-07-2021 Patient encounter procedure 12/07/2021 Appointment Radiology Delvis Moncada MD [address] [place] [id number] [facility] Start: 11-26-2021 Influenza vaccination [facility] Start: 11-11-2021 EPV, Provider: Jasmine Mathias, Status: Pen, Time: 9:00 AM EPV, Provider: Jasmine Mathias, Status: Pen, Time: 9:00 AM [facility] Work Phone: Start: 05-13-2021 EPV, Provider: Jasmine Mathias, Status: Pen, Time: 9:00 AM EPV, Provider: Jasmine Mathias, Status: Pen, Time: 9:00 AM [facility] Work Phone: Start: 05-13-2021 Patient encounter procedure [facility] [place] Start: 04-22-2021 COVID-19 Vaccine (4 - Booster for Moderna series) COVID-19 Vaccine (4 - Booster for Moderna series) [facility] Start: 02-12-2021 FLUSHOT, Provider: PRIMARY CLAREMNT MS JESENIAL4 RN 1,[id number], Status: Pen, Time: 4:20 PM FLUSHOT, Provider: PRIMARY CLAREMNT MS JESENIAL4 RN 1,[id number], Status: Pen, Time: 4:20 PM [facility] Work Phone: Start: 01-02-2021 End: 01-02-2021 Office Visit 01/02/2021 Office Visit Endocrinology, Diabetes & Metabolism Mary Carmen Tovar MD [address] [place] [address] [phone] [facility] Start: 11-26-2020 Influenza vaccination Sequential Influenza Vaccine (#1) [facility] Start: 11-25-2020 End: 11-25-2020 Patient encounter procedure 11/25/2020 Office Visit Podiatry Nevaeh Hartman, RYAN [address] [place] [address] [phone] [facility] Start: 11-21-2020 NPV, Provider: Edison Bartlett, Status: Pen, Time: 8:45 AM NPV, Provider: Edison Bartlett, Status: Pen, Time: 8:45 AM [facility] Work Phone: Start: 11-21-2020 [facility] Start: 11-05-2020 EPV, Provider: Jasmine Mathias, Status: Pen, Time: 9:40 AM EPV, Provider: Jasmine Mathias, Status: Pen, Time: 9:40 AM [facility] Work Phone: Start: 11-05-[address] [facility] Start: 11-04-2020 Blood count complete auto&auto difrntl wbc Complete Blood Count + Differential [facility] Work Phone: Start: 11-04-2020 Cobalamin (Vitamin B12) [Mass/Vol] Vitamin B12, Serum [facility] Work Phone: Start: 11-04-2020 Comprehensive metabolic 2000 panel [facility] Work Phone: Start: 11-04-2020 Lipid panel Lipid Panel [facility] Work Phone: Start: 09-15-2020 FUV, Provider: Nirav Alcantar, Status: Pen, Time: 11:15 AM FUV, Provider: Nirav Alcantar, Status: Pen, Time: 11:15 AM [facility] Work Phone: Start: 02-19-2020 End: 02-19-2020 Infusion Visit 02/19/2020 Infusion Visit Chemotherapy [facility] Start: 01-03-2020 End: 01-03-2020 Office Visit 01/03/2020 Office Visit Endocrinology, Diabetes & Metabolism Mary Carmen Tovar MD [address] [place] [address] [phone] [facility] Start: 11-27-2019 Influenza vaccination INFLUENZA VACCINE (#1) [facility] Start: 11-27-2019 Influenza vaccination given Sequential Influenza Vacci ne (#1) [facility] Start: 01-01-2019 End: 01-01-2019 Office Visit 01/01/2019 Office Visit Endocrinology, Diabetes & Metabolism Mary Carmen Tovar MD [address] [place] [address] [phone] [facility] Start: 12-28-2018 End: 12-29-2019 Comprehensive metabolic 2000 panel COMPREHENSIVE METABOLIC PANEL Lab Routine Age-related osteoporosis without current pathological fracture Expected: 12/28/2018, Expires: 12/29/2019 [facility] Comment on above: Expected: 12/28/2018, Expires: 0 Start: 12-28-2018 End: 12-29-2019 TSH W/FT4 REFLEX TSH W/FT4 REFLEX Lab Routine Age-related osteoporosis without current pathological fracture Nontoxic multinodular goiter Expected: 12/28/2018, Expires: 12/29/2019 [facility] Comment on above: Expected: 12/28/2018, Expires: 0 Start: 12-28-2018 End: 12-29-2019 VITAMIN D (25-HYDROXY,TOTAL) VITAMIN D (25-HYDROXY,TOT AL) Lab Routine Age-related osteoporosis without current pathological fracture Expected: 12/28/2018, Expires: 12/29/2019 [facility] Comment on above: Expected: 12/28/2018, Expires: 0 Start: 11-26-2018 Influenza vaccination INFLUENZA VACCINE (#1) [facility] Start: 11-26-2018 Influenza vaccination given Sequential Influenza Vacci ne (#1) [facility] Start: 03-13-2018 End: 03-13-2018 Ambulatory [facility] Start: 03-09-2018 End: 03-09-2018 Ambulatory 03/09/2018 Office Visit General Surgery Delvis Moncada MD [address] [address] [phone] [facility] Start: 02-03-2018 End: 02-03-2018 Ambulatory 02/03/2018 Office Visit General Surgery Delvis Moncada MD [address] [place] [address] [phone] [facility] Start: 12-22-2017 Pneumococcal vaccination Pneumococcal Vaccine Age 65+ (2 of 2 - PPSV23) [facility] Start: 11-26-2017 Influenza vaccination [facility] Start: 11-14-2017 End: 11-14-2017 Ambulatory 11/14/2017 Scanned Document General Surgery Delvis Moncada MD [address] [address] [phone] [facility] Start: 10-20-2017 End: 10-20-2017 Ambulatory [facility] Start: 08-09-2017 End: 08-09-2017 Ambulatory 08/09/2017 Scanned Document Heartburn Delvis Moncada MD [address] [place] [address] [phone] [facility] Start: 08-09-2017 End: 08-09-2017 Ambulatory 08/09/2017 Scanned Document Heartburn Delvis Moncada MD [address] [place] [address] [phone] [facility] Start: 07-27-2017 End: 07-27-2017 Ambulatory 07/27/2017 Office Visit Heartburn Jasmine Mathias MD [address] [place] [phone] Delvis Moncada MD [address] [place] [address] [phone] [facility] Start: 11-26-2016 Influenza vaccination SEQUENTIAL INFLUENZA VACCINE (#1) [facility] Start: 10-28-2016 Fall risk assessment Falls Risk Assessment [facility] Start: 10-28-2016 Pneumococcal vaccination [facility] Start: 10-28-2016 Pneumococcal Vaccine: Age 65+ (1 of 1 - PPSV23) Pneumococcal Vaccine: Age 65+ (1 of 1 - PPSV23) [facility] Start: 01-29-2016 Screening for malignant neoplasm of colon COLORECTAL CANCER SCREENING DISCUSSION [facility] Start: 11-29-2015 Screening for malignant neoplasm of breast Mammogram [facility] Start: 11-29-2015 Screening mammography Mammogram [facility] Start: 2011 Respiratory Syncytial Virus Immunization: Risk, 60-74 Risk, or 75+ (1 - Risk 60-74 years 1-dose series) Respiratory Syncytial Virus Immunization: Risk, 60-74 Risk, or 75+ (1 - Risk 60-74 years 1-dose series) [facility] Start: 2011 RSV patients and/or patients aged 60+ years (1 - 1-dose 60+ series) RSV patients and/or patients aged 60+ years (1 - 1-dose 60+ series) [facility] Start: 2011 Zoster vacc, sc ZOSTER VACCINE [facility] Start: 10-28-2001 Administration of herpes zoster vaccine Zoster Vaccines (1 of 2) [facility] Start: 10-28-2001 Colonoscopy [facility] Start: 10-28-2001 Screening for malignant neoplasm of colon [facility] Start: 10-28-2001 Zoster vaccine hzv live for subcutaneous use ZOSTER (SHINGLES) VACCINE (1 of 2) [facility] Start: 10-28-2001 ZOSTER VACCINES (1 of 2) ZOSTER VACCINES (1 of 2) [facility] Start: 10-28-1996 Screening for malignant neoplasm of colon COLORECTAL CANCER SCREENING DISCUSSION [facility] Start: 1991 Fasting lipid profile LIPID SCREENING [facility] Start: 1991 Lipid panel LIPID SCREENING [facility] Start: 1991 Screening for malignant neoplasm of breast [facility] Start: 1991 Screening mammography MAMMOGRAM SCREENING DISCUSSION [facility] Start: 10-28-1972 Screening for malignant neoplasm of cervix [facility] Start: 10-28-1970 Administration of herpes zoster vaccine Zoster Vaccines (1 of 2) [facility] Start: 10-28-1970 Third diphtheria, tetanus and acellular pertussis (DTaP) vaccination TDAP (ADULT) [facility] Start: 10-28-1969 Diabetes mellitus screening Diabetes Screening [facility] Start: 10-28-1969 Hepatitis C antibody, confirmatory test Hepatitis C Screening [facility] Start: 10-28-1969 Hepatitis C screening Hepatitis C Screening [facility] Start: 10-28-1969 Tetanus vaccination TETANUS [facility] Start: 1967 COVID-19 Vaccine (1 of 2) COVID-19 Vaccine (1 of 2) [facility] Start: 1963 Adolescent depression screening assessment Depression Screening (PHQ9) [facility] Start: 1963 Depression screening using PHQ-9 (Patient Health Questionnaire 9) score [facility] Start: 10-28-1954 History and physical examination, annual for health maintenance Wellness Visit [facility] Start: 04-30-1952 COVID-19 VACCINE (#1) COVID-19 VACCINE (#1) [facility] Start: 1951 Depression screening using PHQ-9 (Patient Health Questionnaire 9) score Depression Screening (PHQ9) [facility] Start: 1951 Fall risk assessment Falls Risk Assessment [facility] Start: 1951 Hepatitis B vaccination HEP B VACCINE (1 of 3 - 3-dose series) [facility] Start: 1951 Hepatitis C antibody, confirmatory test [facility] Start: 1951 Hepatitis C screening HEPATITIS C VIRUS SCREENING [facility] Start: 1951 Medicare Annual Wellness Visit Medicare Annual Wellness Visit (AWV) [facility] Start: 1951 Potassium [Moles/Vol] POTASSIUM [facility] Start: 1951 Screening for malignant neoplasm of colon [facility] Start: 1951 Screening mammography Mammogram [facility] Start: 1951 HEPATITIS C SCREENING HEPATITIS C SCREENING [facility] Start: 1951 Screening colonoscopy COLONOSCOPY [facility] Start: 1951 End: 1951 Screening for osteoporosis [facility] Start: 1951 End: 1951 Tetanus vaccination [facility] ARTHRODESIS METATARS AL PHALANGE ARTHRODESIS METATARSAL PHALANGE Hallux abductovalgus with bunions, left Dislocated toe, left, sequela [facility] C-TELOPEPTIDE C-TELOPEPTIDE La b Routine Age-related osteoporosis without current pathological fracture Ordered: 01/03/2020 [facility] Comment on above: Ordered: 01/03/2020 Comprehensive metabo lic 2000 panel COMPREHENSIVE METABOLIC PANEL Lab Routine Age-related osteoporosis without current pathological fracture Ordered: 01/03/2020 [facility] Comment on above: Ordered: 01/03/2020 CROSS-LINKED N-TELOPEP,UR CROSS- LINKED N-TELOPEP,UR Fluids Routine Age-related osteoporosis without current pathological fracture Ordered: 01/03/2020 [facility] Comment on above: Ordered: 01/03/2020 End: 02-02-2024 CT Hip - right WO contrast [facility] Service Area Work Phone: Comment on above: Once for 1 Occurrences starting 02/02/20 until 02/02/2024 End: 12-28-2023 CT Lumbar spine WO contrast [facility] Work Phone: Comment on above: Once for 1 Occurrences starting 12/28/19 until 12/28/2023 End: 02-02-2024 CT Pelvis WO contrast [facility] Work Phone: Comment on above: Once for 1 Occurrences starting 02/02/20 until 02/02/2024 End: 03-04-2023 Epidural steroid injection Epidural Steroid Injection Procedures Routine Cervical radiculitis Once for 1 Occurrences starting 03/04/2023 until 03/04/2023 [facility] Work Phone: Comment on above: Once for 1 Occurrences starting 03/04/20 until 03/04/2023 End: 11-26-2022 Fluoroscopy of esophagus XR Esophagram Swallow Study Imaging Routine Esophageal dysphagia Status post laparoscopic Rosalva fundoplication 1 Occurrences starting 11/26/2021 until 11/26/2022 [facility] Work Phone: Comment on above: 1 Occurrences starting 11/26/2021 until 11/26/2022 H/O Spinal surgery History of back surger y [facility] H/O: surgery [facility] Comment on above: with cement H/O: tubal ligation History of tubal liga tion [facility] History of appendectomy History of append ectomy [facility] History of bilateral salpingo-oophorectomy History of bilateral salpingo-oophorectomy (BSO) [facility] History of fundoplication Histor y of Rosalva fundoplication [facility] History of hernia repair History of herni a repair [facility] History of operative procedure on foot History of foot surgery [facility] History of operative procedure on hip History of operative procedure on hip Comments: right hip 2010 [facility] Comment on above: right hip 2010 History of tonsillectomy History of tonsi llectomy [facility] History of total hysterectomy History of total abdominal hysterectomy [facility] ROSALVA FUNDOPLICATIO N ROBOTIC XI ROSALVA FUNDOPLICATION ROBOTIC XI Hiatal hernia with GERD without esophagitis [facility] Main OR OPEN REDUCTION INTER NAL FIXATION FOOT/TOE(S) OPEN REDUCTION INTERNAL FIXATION FOOT/TOE(S) Hallux abductovalgus with bunions, left Dislocated toe, left, sequela [facility] Past history of procedure Histor y of esophagogastroduodenoscopy (EGD) [facility] POCT glucose meter d ocked device POCT glucose meter docked device Point of Care Testing - Docked Device Routine As needed (Lab) for 1 Occurrences starting 08/26/2023 [facility] Work Phone: Comment on above: As needed (Lab) for 1 Occurrences starti ng 08/26/2023 End: 08-26-2023 Transforaminal Transforaminal Procedures Routine Lumbosacral radiculopathy Neurogenic claudication due to lumbar spinal stenosis Once for 1 Occurrences starting 08/26/2023 until 08/26/2023 [facility] Service Area Work Phone: Comment on above: Once for 1 Occurrences starting 08/26/19 24 until 08/26/2023 TSH Qn TSH Lab Routine Age-related osteoporosis without current pathological fracture Ordered: 01/03/2020 [employer] [facility] Comment on above: Ordered: 01/03/2020 VITAMIN D (25-HYDROXY,TOTAL) VIT SALAS D (25-HYDROXY,TOTAL) Lab Routine Age-related osteoporosis without current pathological fracture Ordered: 01/03/2020 [employer] [facility] Comment on above: Ordered: 01/03/2020 VITAMIN D (25-HYDROXY,TOTAL) VIT SALAS D (25-HYDROXY,TOTAL) Lab Routine Age-related osteoporosis without current pathological fracture Vitamin D deficiency Ordered: 02/17/2024 [employer] [facility] Comment on above: Ordered: 02/17/2024 End: 12-28-2023 XR Hip Views [facility] Service Area Work Phone: Comment on above: Once for 1 Occurrences starting 12/28/19 until 12/28/2023 End: 07-27-2023 XR Lumbar spine 2 or 3 [facility] Work Phone: Comment on above: Once for 1 Occurrences starting 07/27/19 until 07/27/2023 End: 12-11-2024 XR Spine Views XR EOS full spine 2 view scolosis Imaging Routine Neurogenic claudication due to lumbar spinal stenosis Lumbosacral radiculopathy 1 Occurrences starting 12/12/2023 until 12/11/2024 [facility] Work Phone: Comment on above: 1 Occurrences starting 12/12/2023 until 12/11/2024 NEGATED: Highlighted row has been ruled out! Planned Goals not documented [facility] Work Phone: Immunizations Immunization Date Immunization Notes Care Provider Fa [facility] 01-24-2024 RESPIRATORY SYNCYTIA L VIRUS (RSV), ELIGIBLE PTS, 0.5 ML (ABRYSVO) Jasmine Mathias MD Work Phone: [facility] Work Phone: 01-24-2024 Seasonal trivalent influenza vaccine, adjuvanted, preservative free Jasmine Mathias MD Work Phone: [facility] Work Phone: 03-10-2023 Flu vaccine, quadrivalent, high-dose, preservative free, age 65y+ (FLUZONE) Mauricio Mancilla PA-C Work Phone: [facility] 03-10-2023 influenza virus vaccine, unspecified formulation Jasmine Mathias MD Work Phone: [facility] Work Phone: 07-15-2022 zoster vaccine recombinant Jasmine Mathias MD Work Phone: [facility] Work Phone: 05-06-2022 zoster vaccine recombinant Jasmine Mathias Work Phone: [facility] Work Phone: 01-06-2022 Fluad Quadrivalent 0 .5 ML Intramuscular Prefilled Syringe Jasmine Doreen Mathias Work Phone: [facility] Work Phone: 01-06-2022 Pfizer COVID-19 Vac Bivalent 30 MCG/0.3ML Intramuscular Suspension Jasminegregoria Mathias Work Phone: [facility] Work Phone: 01-06-2022 influenza virus vaccine, unspecified formulation Jasmine Mathias MD Work Phone: [facility] Work Phone: 02-12-2021 Fluzone High-Dose Quadrivalent 0.7 ML Intramuscular Suspension Prefilled Syringe; Translations: [Fluzone High-Dose Quadrivalent 0.7 ML Intramuscular Suspension Prefilled Syringe] Jasmine Doreen Mathias Work Phone: [facility] Work Phone: Comment on above: Series: 02-12-2021 influenza, high dose seasonal, preservative-free Jasmine Mathias MD Work Phone: [facility] Work Phone: 02-12-2021 influenza, seasonal, injectable Jasminemarilee Mathias Work Phone: [facility] Work Phone: Comment on above: Series: 02-12-2021 influenza virus vaccine, unspecified formulation Mary Carmen Tovar MD Work Phone: [facility] 01-28-2021 Moderna COVID-19 Vaccine 100 MCG/0.5ML Intramuscular Suspension Jasminemarilee Mathias Work Phone: [facility] Work Phone: 06-27-2020 Moderna COVID-19 Vaccine 100 MCG/0.5ML Intramuscular Suspension Jasmine Doreen Vic Work Phone: [facility] Work Phone: 05-29-2020 Moderna COVID-19 Vaccine 100 MCG/0.5ML Intramuscular Suspension Jasminemarilee Mathias Work Phone: [facility] Work Phone: 01-16-2020 Fluzone High-Dose Quadrivalent 0.7 ML Intramuscular Suspension Prefilled Syringe; Translations: [Fluzone High-Dose Quadrivalent 0.7 ML Intramuscular Suspension Prefilled Syringe] Jasmine [facility] Work Phone: Comment on above: Series: 01-16-2020 influenza, high dose seasonal, preservative-free Jasmine Mathias MD Work Phone: [facility] Work Phone: 04-27-2019 tetanus toxoid, redu claribel diphtheria toxoid, and acellular pertussis vaccine, adsorbed Jasmine [facility] Comment on above: Series: 12-15-2017 pneumococcal polysaccharide vaccine, 23 valent Jasmine [facility] Comment on above: Series: 12-08-2017 influenza, high dose seasonal, preservative-free Jasmine Mathias Work Phone: [facility] Work Phone: 12-08-2017 influenza virus vaccine, unspecified formulation [facility] 12-22-2016 influenza, injectabl e, quadrivalent, preservative free Jasmine Mathias Work Phone: [facility] Work Phone: 12-22-2016 pneumococcal conjuga te vaccine, 13 valent Jasmine Mathias MD Work Phone: [facility] Work Phone: 12-22-2016 pneumococcal conjuga te vaccine, 7 valent Jasmine Mathias [facility] Work Phone: Comment on above: Series: 02-11-2009 novel [id number], preservative-free, injectable Jasmine Logan Vic Work Phone: [facility] Work Phone: Payers Date Payer Category Payer Self-pay 2016 [facility] TRADITIONAL [id number] 2016 Medicare supplementa l policy (as second payer) [employer] MEDICARE SELECT SUPPLEMENT [id number] 2016 Unknown [id number] 2013 Medicare xxxxxxxxxxx [id number] 2013 Medicare [id number] 2013 Medicare [id number] 2013 Unknown xxxxxxxxxxxx [id number] 2013 Unknown 2013 Medicare [id number] 2013 Medicare [id number] 2013 [facility] [id number] 2013 Unknown [id number] 1951 Unknown [id number] 1951 Unknown [id number] 1951 Unknown [id number] 1951 Unknown [id number] 1951 Unknown [id number] 1951 Unknown [id number] .356 1951 Unknown [id number] 1951 Unknown [id number] 2.16840.1.295632.3.579.2 .1069 1950 Unknown [id number] 2.16.840.1.834492.3.579.2 .1069 1950 Unknown [id number] 2.16840.1.301910.3.579.2 .9 1950 Unknown [id number] 2.16.840.1.071884.3.579.2 .1068 1950 Unknown [id number] 2.16.840.1.330985.3.579.2 .1068 1950 Unknown [id number] 2.16.840.1.601875.3.579.2 .1068 1950 Unknown [id number] 2.16.840.1.475489.3.579.2 .1068 1950 Unknown [id number] 2.16.840.1.740180.3.579.2 .1068 1950 Unknown [id number] 2.16.840.1.571639.3.579.2 .1068 1950 Unknown [id number] 2.16.840.1.804856.3.579.2 .1068 1950 Unknown [id number] 2.16.840.1.814737.3.579.2 .1950 Unknown [id number] 2.16.840.1.107959.3.579.2 .1950 Unknown [id number] 2.16.840.1.845203.3.579.2 .1950 Unknown [id number] 2.16.840.1.107202.3.579.2 .1950 Unknown [id number] 2.16.840.1.252196.3.579.2 .90 1950 Unknown [id number] 2.16.840.1.074993.3.579.2 .2 1950 Unknown [id number] 2.16.840.1.689276.3.579.2 .1242 1950 Unknown [id number] 2.16.840.1.058697.3.579.2 .983 1950 Unknown [id number] 2.16.840.1.992170.3.579.2 .1244 1950 Unknown [id number] 2.16.840.1.187019.3.579.2 .1244 1950 Unknown [id number] 2.16.840.1.858160.3.579.2 .1244 1951 Unknown [id number] 2.16.840.1.476968.3.579.2 .1244 1950 Unknown [id number] 2.16.840.1.122366.3.579.2 .1244 1950 Unknown [id number] 2.16.840.1.352492.3.579.2 .1244 1951 Unknown [id number] 2.840.1.328455.3.579.2 .1244 1950 Unknown [id number] 2.16840.1.609112.3.579.2 .983 1950 Unknown [id number] 2.840.1.061808.3.579.2 .1243 1951 Unknown [id number] 2.16840.1.476992.3.579.2 .1243 1951 Unknown [id number] 2.840.1.320218.3.579.2 .1243 1951 Unknown [id number] 2.16840.1.432857.3.579.2 .1243 1951 Unknown [id number] 2.16.840.1.040625.3.579.2 .1243 1951 Unknown [id number] 2.16.840.1.372666.3.579.2 .1243 1951 Unknown [id number] 2.16840.1.417050.3.579.2 .1243 1951 Unknown [id number] 2.16.840.1.679774.3.579.2 .1243 1951 Unknown [id number] 2.16.840.1.612858.3.579.2 .1243 1951 Unknown [id number] 2.16.840.1.394629.3.579.2 .1243 1951 Unknown [id number] 2.840.1.270012.3.579.2 .1950 Unknown [id number] 2.840.1.612918.3.579.2 .1950 Unknown [id number] 2.840.1.473813.3.579.2 .1950 Unknown [id number] 2.840.1.162370.3.579.2 .1950 Unknown [id number] 2.840.1.002106.3.579.2 .1951 Unknown [id number] 2.840.1.894400.3.579.2 .1951 Unknown [id number] 2.840.1.576213.3.579.2 .1950 Unknown [id number] 2.840.1.130539.3.579.2 .1242 1951 Unknown [id number] 2.840.1.979624.3.579.2 .1242 1951 Unknown [id number] 2.840.1.942269.3.579.2 .1242 1951 Unknown [id number] 2.16.840.1.036168.3.579.2 .1242 1951 Unknown [id number] 2.16840.1.468327.3.579.2 .1242 1951 Unknown [id number] 2.16.840.1.660765.3.579.2 .1242 1951 Unknown [id number] 2.16.840.1.418309.3.579.2 .1242 1951 Unknown [id number] 2.16.840.1.510845.3.579.2 .1242 1951 Unknown [id number] 2.16.840.1.563605.3.579.2 .1242 1951 Unknown [id number] 2.16.840.1.897788.3.579.2 .1242 1951 Unknown [id number] 2.16.840.1.114181.3.579.2 .1242 1951 Unknown [id number] 2.16.840.1.653783.3.579.2 .1242 1951 Unknown [id number] 2.840.1.121210.3.579.2 .1242 1951 Unknown [id number] 2.16.840.1.627926.3.579.2 .1242 1951 Unknown [id number] 2.16840.1.867114.3.579.2 .1242 1951 Unknown [id number] 2.16.840.1.277057.3.579.2 .1242 1951 Unknown [id number] 2.16.840.1.511151.3.579.2 .1242 1951 Unknown [id number] 2.16.840.1.027713.3.579.2 .1242 1951 Unknown [id number] 2.16.840.1.041613.3.579.2 .1242 1951 Unknown [id number] 2.16.840.1.357226.3.579.2 .1242 1951 Unknown [id number] 2.16.840.1.550871.3.579.2 .1243 1951 Unknown [id number] 2.16.840.1.335236.3.579.2 .1242 1951 Unknown [id number] 2.16.840.1.346071.3.579.2 .1243 1951 Unknown [id number] 2.16.840.1.941236.3.579.2 .1242 1950 Unknown [id number] 2.16.840.1.875019.3.579.2 .1242 1951 Unknown [id number] 2.16.840.1.775002.3.579.2 .1242 1951 Unknown [id number] 2.16.840.1.641292.3.579.2 .1242 1950 Unknown [id number] 2.16840.1.016330.3.579.2 .1242 1950 Unknown [id number] 2.16.840.1.341303.3.579.2 .1243 Medicare [id number] Unknown [id number] 2.16.840.1.798029.3.579.2 .462 Unknown [id number] 2.16840.1.491533.3.579.2 .462 Unknown [id number] 2.16840.1.903339.3.579.2 .462 Unknown [id number] 2.16840.1.376650.3.579.2 .462 Unknown [id number] 2.16840.1.538146.3.579.2 .462 Social History Date Type Detail Facility Start: 08-24-2017 End: 02-15-2022 Tobacco smoking status NHIS Former smoker [facility] Start: 1950 Sex Assigned At Not on file [facility] Start: 07-25-2017 End: 12-31-2022 Tobacco smoking status AKIS Never smoker [facility] Start: 01-01-2019 End: 02-17-2024 Alcohol intake Ex-drinker (finding) [facility] Start: 06-11-2019 End: 09-14-2024 Alcohol intake Current non-drinker of alcohol (finding) [facility] Start: 01-03-2020 End: 12-31-2022 Tobacco use and exposure Never used [facility] Start: 10-28-2020 End: 09-14-2024 Never smoker Never smoker [facility] Work Phone: Tobacco smoking consumption unknown [facility] Start: 11-16-2021 End: 08-31-2024 Exposure to SARS-CoV-2 (event) Not sure [facility] History of tobacco use Current smoker [facility] History of tobacco use Cigarette Smoker [facility] Start: 09-30-2022 End: 09-10-2024 Alcohol intake Lifetime non-drinker (finding) [facility] Work Phone: Start: 11-10-2022 End: 09-14-2024 Gender identity Not on file [facility] Work Phone: Start: 08-02-2017 Gender identity Identifies as female gender (finding) [facility] Start: 12-15-2017 Sexual orientation Heterosexual (fin ding) [facility] History of tobacco use Passive smoker [facility] Work Phone: Start: 1950 Sex assigned at Female [facility] NEGATED: Highlighted row - - [facility] Work Phone: Medical Equipment Procedure Code Equipment Code Equipment Origin al Text Equipment Identifier Dates Mesh 7 X 10cm Resorbable Ph[address]ix St - Sna [id number])[id number], [id number] FDA Start: 02-15-2022 Wire K 0.062in Smooth Dbl End - [id number] Start: 01-05-2023 Comment on above: Description: 2nd toe 3.5 Mm Cannulate d Screw Size 28mm Long Thread [id number] Start: 01-05-2023 Comment on above: Description: Great t oe Load # 24 01-04-23 Plate 2.4/2.7mm Va-Lcp First Mtp Fusion Sm 5deg Lt - [id number] Start: 01-05-2023 Comment on above: Description: Great t oe Load #27 12/29/22 Screw 2.7 X 12mm Va Lock T8 Strdrv Rec - [id number] Start: 01-05-2023 Comment on above: Description: Great T oe Load #27 12-29-22 Screw 2.7 X 14mm Va Lock T8 Strdrv Rec - [id number] Start: 01-05-2023 Comment on above: Description: Great T oe Load #27 12-29-22 Functional Status Date Assessment Result Facility 09-10-2024 Ocean - suicide severity rating scale screener - recent [C-SSRS] [facility] Work Phone: 07-16-2024 Patient Health Questionnaire 2 item (PHQ-2) [Reported] [facility] Work Phone: 07-16-2024 Ocean - suicide severity rating scale screener - recent [C-SSRS] [facility] Work Phone: NEGATED: Highlighted row Functional performance Functional status health issues are not documented Disease [facility] Work Phone: Mental Status Date Assessment Result Facility NEGATED: Highlighted row Cognitive function [Interpretation] Cognitive status health issues are not documented Disease [facility] Work Phone: Clinical Notes 09-15-2020 to 09-14-2024 Bar Triana Jr., RYAN - 09/14/2024 8:42 AM Jose Ramon Bills, DO - 09/10/2024 5:05 PM Jose Ramon Bills, DO - 09/10/2024 5:05 PM Juanita Bond MA - 08/31/2024 4:20 PM EDT Note Date & Type Note Facility 09-14-2024 Note Right great toe pain Patient is a pleasant 73-year-old female following up today for right great toe pain. States that overall her toe is technically doing better still a bit sore worse but has improved. Does state that she is on Tuesday undergoing right neck surgical intervention due to numbness in her right arm which is her current priority. Physical Vascular: DP PT pulses are palpable. CFT is fair mild baseline edema. Derm: No erythema no open wounds no ulcers no rashes noted nodules. Neuro: Light touch is normal Babinski's is normal. Musculoskeletal: Muscle strength is 5/5 with fair tone. 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 Patient is a pleasant 73-year-old female with hallux adductovarus deformity present pain right great toe. Today no surgical reduction required. Should focus on her neck surgery and follow-up postoperatively for her great toe to consider first MPJ fusion if she has continued pain AUTHENTICATED BY BAR TRIANA JR., ON 09/14/2024 08:45:14 [facility] 09-14-2024 History of Present illness Narrative Right great toe pain Patient is a pleasant 73-year-old female following up today for right great toe pain. States that overall her toe is technically doing better still a bit sore worse but has improved. Does state that she is on Tuesday undergoing right neck surgical intervention due to numbness in her right arm which is her current priority. Physical Vascular: DP PT pulses are palpable. CFT is fair mild baseline edema. Derm: No erythema no open wounds no ulcers no rashes noted nodules. Neuro: Light touch is normal Babinski's is normal. Musculoskeletal: Muscle strength is 5/5 with fair tone. 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 Patient is a pleasant 73-year-old female with hallux adductovarus deformity present pain right great toe. Today no surgical reduction required. Should focus on her neck surgery and follow-up postoperatively for her great toe to consider first MPJ fusion if she has continued pain documented in this encounter [facility] 09-10-2024 Physician Emergency department Note Images from the original note were not included. Emergency Department Provider Note MEDICAL DECISION MAKING: Medical Decision Making 09/10/24 Chief Complaint Patient presents with Diarrhea Diarrhea, nausea and vomiting since Saturday. Submit stool sample through PCP today, pending result History/Exam limitations: none. Additional history was obtained from patient and past medical records. HPI: Narendra Arguelles is a 73 y.o. presents with diarrhea. Ongoing since Tuesday. States she had vomiting Tuesday morning but that has gone away. No abdominal pain. No syncope. Complains of fatigue but denies any fever, chills, recent hospitalizations, C. difficile infections in the past, recent antibiotics. Denies any recent travel or exposures. Symptoms are worse with eating and drinking. Better with being fasting. Past medical records, Past medical history and surgical history reviewed and as documented. History reviewed and as noted. past medical records reviewed. Active Ambulatory Problems Diagnosis Date Noted Degenerative disc disease, lumbar 07/19/2022 Anxiety 07/19/2022 Chronic pain 07/19/2022 Edema 07/19/2022 GERD (gastroesophageal reflux disease) 07/19/2022 HTN (hypertension) 07/19/2022 Hypercholesteremia 07/19/2022 Neurogenic claudication due to lumbar spinal stenosis 07/19/2022 Osteoporosis 07/19/2022 Primary generalized (osteo)arthritis 07/19/2022 Rheumatoid arthritis 07/19/2022 Class 2 severe obesity with serious comorbidity and body mass index (BMI) of 35.0 to 35.9 in adult 10/09/2022 Osteopenia 12/26/2022 Arm weakness 01/24/2023 Cervical radiculitis 01/24/2023 H/O arthrodesis 01/24/2023 Imbalance 01/24/2023 Lumbosacral radiculopathy 01/24/2023 Lumbosacral spondylosis 01/24/2023 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/24/2023 Sciatica 01/24/2023 Postlaminectomy syndrome of lumbar region 06/25/2024 Right shoulder pain 07/10/2024 Anterolisthesis of cervical spine 07/16/2024 Resolved Ambulatory Problems Diagnosis Date Noted No Resolved Ambulatory Problems Past Medical History: Diagnosis Date Encounter for other screening for malignant neoplasm of breast Encounter for screening for malignant neoplasm of colon Encounter for screening for osteoporosis Fibrocystic breast [id number] Pain in unspecified hip 02/19/2020 Personal history of diseases of the blood and blood-forming organs and certain disorders involving the immune mechanism 11/21/2019 Surgical History[1] Family History[2] Social History[3] RX Allergies[4] Unless otherwise stated in this report the patient's positive and negative responses for review of systems for constitutional, eyes, ENT, cardiovascular, respiratory, gastrointestinal, neurological, genitourinary, musculoskeletal, and integument systems and related systems to the presenting problem are either as stated in the HPI or were not pertinent or were negative for the symptoms and/or complaints related to the presenting medical problem. PHYSICAL EXAM Triage/nursing notes and vital signs reviewed as available and as noted Vitals: 09/10/24 1653 09/10/24 1654 BP: 128/66 Pulse: 84 Resp: 20 Temp: 36.8 C (98.2 F) TempSrc: Oral SpO2: 99% Weight: 92.1 kg (203 lb) Constitutional: Appearance: Patient not ill-appearing or toxic-appearing. HENT: Head: Atraumatic. Mouth/Throat: Mouth: Mucous membranes are moist. Pharynx: Oropharynx is clear. No pharyngeal swelling. Neck: No Obvious JVD. Trachea midline. No neck swelling. Eyes: Normal Ocular tracking Cardiovascular: Rate and Rhythm: Normal rate and regular rhythm. Pulses: Normal pulses. Heart sounds: No murmur heard. Pulmonary: Effort: Pulmonary effort is normal. Breath sounds: Normal breath sounds. Abdominal: General: Bowel sounds are normal. Palpations: Abdomen is soft. Tenderness: There is no abdominal tenderness. There is no guarding or rebound. Musculoskeletal: Cervical back: Neck supple. Right lower leg: No tenderness. No edema. Left lower leg: No tenderness. No edema. Skin: General: Skin is warm and dry. Capillary Refill: Capillary refill takes less than 2 seconds. Neurological: General: No focal deficit present. Mental Status: Patient is alert. Appropriate conversant Sensory: Gross Sensation is intact. Motor: Gross Motor function is intact symmetrically Psychiatric: Mood and Affect: Mood normal. Cooperative, no apparent risk to self or others ED COURSE Work-up performed to evaluate for differential diagnosis as clinically indicated Orders Placed This Encounter Procedures CBC and Auto Differential Phosphorus Magnesium Comprehensive metabolic panel Lactate Vital Signs Insert and maintain peripheral IV Labs and imaging reviewed by me and note Labs Reviewed CBC WITH AUTO DIFFERENTIAL - Abnormal Result Value WBC 6.4 nRBC 0.0 RBC 3.57 (*) Hemoglobin 10.9 (*) Hematocrit 34.2 (*) MCV 96 MCH 30.5 MCHC 31.9 (*) RDW 18.4 (*) Platelets 242 Neutrophils % 74.5 Immature Granulocytes %, Automated 0.3 Lymphocytes % 14.5 Monocytes % 9.7 Eosinophils % 0.8 Basophils % 0.2 Neutrophils Absolute 4.79 Immature Granulocytes Absolute, Automated 0.02 Lymphocytes Absolute 0.93 Monocytes Absolute 0.62 Eosinophils Absolute 0.05 Basophils Absolute 0.01 PHOSPHORUS - Abnormal Phosphorus 2.1 (*) COMPREHENSIVE METABOLIC PANEL - Abnormal Glucose 112 (*) Sodium 137 Potassium 3.8 Chloride 107 Bicarbonate 25 Anion Gap 9 (*) Urea Nitrogen 21 Creatinine 0.76 eGFR 83 Calcium 7.1 (*) Albumin 3.7 Alkaline Phosphatase 57 Total Protein 6.0 (*) AST 32 Bilirubin, Total 0.3 ALT 29 MAGNESIUM - Normal Magnesium 1.86 LACTATE - Normal Lactate 0.5 Narrative: Venipuncture immediately after or during the administration of Metamizole may lead to falsely low results. Testing should be performed immediately prior to Metamizole dosing. No orders to display Pt course which Intervention and treatment included : Procedure Procedures Medications lactated Ringer's bolus 1,000 mL (has no administration in time range) loperamide (Imodium) capsule 4 mg (has no administration in time range) ondansetron (Zofran) injection 4 mg (has no administration in time range) ED Course as of 09/10/241818Sep 10, 20241817 Patient evaluated for diarrhea. Abdominal exam is benign. Lactate is normal. No leukocytosis. No need for CT imaging. Electrolytes all within normal range. IV fluid bolus given. Patient is feeling better. Loperamide given. No risk factors for C. difficile. Patient is discharged with instructions for follow-up, home care and return precautions. [ML] ED Course User Index [ML] Sanjuana Bills DO Diagnoses as of 09/10/241818 Gastroenteritis DISPOSITION: Patient is stable for discharge. Based upon my history, physical exam, evaluation and judgement regarding the aforementioned differentials, at the time of this assessment, I do not see evidence to support the presence of any life, neurologic, or limb threatening pathology in my considered differentials. Alternate non life threatening pathology has been considered, and has been ruled out based upon the findings of my evaluation. While there may be remaining pathology considered within the differential, this is not life threatening, not limb threatening, and does not warrant further emergent evaluation or treatment at this time. Shared decision making made with the patient as applicable. It is my judgement that further treatment and evaluation can safely proceed in the outpatient setting. Shared decision making was utilized to arrive at all clinical decisions. At this time I do not see evidence of an emergency medical condition based upon my medical screening examination. All imaging and laboratory results were discussed with the patient in detail including acute as well as incidental findings. I discussed the differential, results and discharge plan with the patient and/or family/friend/caregiver if present. Education and reassurance provided regards to presumed diagnosis. I emphasized the importance of follow-up with the physician I referred them to in the timeframe recommended. I explained reasons for the patient to return to the Emergency Department. Additional verbal discharge instructions were also given and discussed with the patient to supplement those generated by the EMR. We also discussed medications that were prescribed (if any) including common side effects and interactions as well as proper dosing and administration. The patient was advised to abstain from driving, operating heavy machinery or making significant decisions while taking medications such as opiates and muscle relaxers that may impair this. All questions were addressed. They understand return precautions and discharge instructions. The patient and/or family/friend/caregiver expressed understanding 1. Gastroenteritis Bifidobacterium infantis (ALIGN) 4 mg capsule loperamide (Imodium) 2 mg capsule ----- 09/10/24 at 5:05 PM - Sanjuana Bills, Internal & Emergency Medicine [1] Past Surgical History: Procedure Laterality Date BACK SURGERY BREAST BIOPSY [id number] CATARACT EXTRACTION Bilateral 2022 CERVICAL FUSION 2008 anterior cervical discectomy with fusion c5-6 INJECTION Right 06/06/2024 RT L2/3-L3/4 TFESI IR INJECTION EPIDURAL STEROID 03/04/2023 C6-7 IR INJECTION EPIDURAL STEROID Bilateral 08/26/2023 L2-3 TFESI OTHER SURGICAL HISTORY 01/23/2019 Rosalva fundoplication laparoscopic OTHER SURGICAL HISTORY 01/23/2019 Hernia repair OTHER SURGICAL HISTORY 01/23/2019 Foot surgery OTHER SURGICAL HISTORY 01/23/2019 Back surgery OTHER SURGICAL HISTORY 01/23/2019 Rectocele repair OTHER SURGICAL HISTORY 01/23/2019 Total hysterectomy abdominal OTHER SURGICAL HISTORY 01/23/2019 Tonsillectomy OTHER SURGICAL HISTORY 01/23/2019 Appendectomy OTHER SURGICAL HISTORY 01/23/2019 Esophagogastroduodenoscopy OTHER SURGICAL HISTORY 01/23/2019 Salpingo-oophorectomy bilateral OTHER SURGICAL HISTORY 01/23/2019 Tubal ligation OTHER SURGICAL HISTORY 01/23/2019 Knee surgery OTHER SURGICAL HISTORY 08/15/2020 Epidural steroid injection OTHER SURGICAL HISTORY 05/02/2020 Epidural steroid injection OTHER SURGICAL HISTORY 04/29/2020 Hip replacement OTHER SURGICAL HISTORY 04/29/2020 Pelvic surgery [2] Family History Problem Relation Name Age of Onset Hypertension Mother Diabetes Mother Heart failure Mother Heart failure Father Heart failure Sister Hypertension Brother Heart failure Brother Diabetes Other grandparent Throat cancer Other uncle [3] Social History Tobacco Use Smoking status: Never Passive exposure: Current Smokeless tobacco: Never Vaping Use Vaping status: Never Used Substance Use Topics Alcohol use: Never Drug use: Never [4] Allergies Allergen Reactions Amoxicillin-Pot Clavulanate Unknown Codeine Other Morphine Unknown Sanjuana Bills DO Resident 09/10/24 1822 [facility] Work Phone: 09-10-2024 Emergency department Note Images from the original note were not included. Emergency Department Provider Note MEDICAL DECISION MAKING: Medical Decision Making 09/10/24 Chief Complaint Patient presents with Diarrhea Diarrhea, nausea and vomiting since Tuesday. Submit stool sample through PCP today, pending result History/Exam limitations: none. Additional history was obtained from patient and past medical records. HPI: Narendra Arguelles is a 73 y.o. presents with diarrhea. Ongoing since Tuesday. States she had vomiting Tuesday morning but that has gone away. No abdominal pain. No syncope. Complains of fatigue but denies any fever, chills, recent hospitalizations, C. difficile infections in the past, recent antibiotics. Denies any recent travel or exposures. Symptoms are worse with eating and drinking. Better with being fasting. Past medical records, Past medical history and surgical history reviewed and as documented. History reviewed and as noted. past medical records reviewed. Active Ambulatory Problems Diagnosis Date Noted Degenerative disc disease, lumbar 07/19/2022 Anxiety 07/19/2022 Chronic pain 07/19/2022 Edema 07/19/2022 GERD (gastroesophageal reflux disease) 07/19/2022 HTN (hypertension) 07/19/2022 Hypercholesteremia 07/19/2022 Neurogenic claudication due to lumbar spinal stenosis 07/19/2022 Osteoporosis 07/19/2022 Primary generalized (osteo)arthritis 07/19/2022 Rheumatoid arthritis 07/19/2022 Class 2 severe obesity with serious comorbidity and body mass index (BMI) of 35.0 to 35.9 in adult 10/09/2022 Osteopenia 12/26/2022 Arm weakness 01/24/2023 Cervical radiculitis 01/24/2023 H/O arthrodesis 01/24/2023 Imbalance 01/24/2023 Lumbosacral radiculopathy 01/24/2023 Lumbosacral spondylosis 01/24/2023 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[facility]) 01/24/2023 Sciatica 01/24/2023 Postlaminectomy syndrome of lumbar region 06/25/2024 Right shoulder pain 07/10/2024 Anterolisthesis of cervical spine 07/16/2024 Resolved Ambulatory Problems Diagnosis Date Noted No Resolved Ambulatory Problems Past Medical History: Diagnosis Date Encounter for other screening for malignant neoplasm of breast Encounter for screening for malignant neoplasm of colon Encounter for screening for osteoporosis Fibrocystic breast [id number] Pain in unspecified hip 02/19/2020 Personal history of diseases of the blood and blood-forming organs and certain disorders involving the immune mechanism 11/21/2019 Surgical History[1] Family History[2] Social History[3] RX Allergies[4] Unless otherwise stated in this report the patient's positive and negative responses for review of systems for constitutional, eyes, ENT, cardiovascular, respiratory, gastrointestinal, neurological, genitourinary, musculoskeletal, and integument systems and related systems to the presenting problem are either as stated in the HPI or were not pertinent or were negative for the symptoms and/or complaints related to the presenting medical problem. PHYSICAL EXAM Triage/nursing notes and vital signs reviewed as available and as noted Vitals: 09/10/24 1653 09/10/24 1654 BP: 128/66 Pulse: 84 Resp: 20 Temp: 36.8 C (98.2 F) TempSrc: Oral SpO2: 99% Weight: 92.1 kg (203 lb) Constitutional: Appearance: Patient not ill-appearing or toxic-appearing. HENT: Head: Atraumatic. Mouth/Throat: Mouth: Mucous membranes are moist. Pharynx: Oropharynx is clear. No pharyngeal swelling. Neck: No Obvious JVD. Trachea midline. No neck swelling. Eyes: Normal Ocular tracking Cardiovascular: Rate and Rhythm: Normal rate and regular rhythm. Pulses: Normal pulses. Heart sounds: No murmur heard. Pulmonary: Effort: Pulmonary effort is normal. Breath sounds: Normal breath sounds. Abdominal: General: Bowel sounds are normal. Palpations: Abdomen is soft. Tenderness: There is no abdominal tenderness. There is no guarding or rebound. Musculoskeletal: Cervical back: Neck supple. Right lower leg: No tenderness. No edema. Left lower leg: No tenderness. No edema. Skin: General: Skin is warm and dry. Capillary Refill: Capillary refill takes less than 2 seconds. Neurological: General: No focal deficit present. Mental Status: Patient is alert. Appropriate conversant Sensory: Gross Sensation is intact. Motor: Gross Motor function is intact symmetrically Psychiatric: Mood and Affect: Mood normal. Cooperative, no apparent risk to self or others ED COURSE Work-up performed to evaluate for differential diagnosis as clinically indicated Orders Placed This Encounter Procedures CBC and Auto Differential Phosphorus Magnesium Comprehensive metabolic panel Lactate Vital Signs Insert and maintain peripheral IV Labs and imaging reviewed by me and note Labs Reviewed CBC WITH AUTO DIFFERENTIAL - Abnormal Result Value WBC 6.4 nRBC 0.0 RBC 3.57 (*) Hemoglobin 10.9 (*) Hematocrit 34.2 (*) MCV 96 MCH 30.5 MCHC 31.9 (*) RDW 18.4 (*) Platelets 242 Neutrophils % 74.5 Immature Granulocytes %, Automated 0.3 Lymphocytes % 14.5 Monocytes % 9.7 Eosinophils % 0.8 Basophils % 0.2 Neutrophils Absolute 4.79 Immature Granulocytes Absolute, Automated 0.02 Lymphocytes Absolute 0.93 Monocytes Absolute 0.62 Eosinophils Absolute 0.05 Basophils Absolute 0.01 PHOSPHORUS - Abnormal Phosphorus 2.1 (*) COMPREHENSIVE METABOLIC PANEL - Abnormal Glucose 112 (*) Sodium 137 Potassium 3.8 Chloride 107 Bicarbonate 25 Anion Gap 9 (*) Urea Nitrogen 21 Creatinine 0.76 eGFR 83 Calcium 7.1 (*) Albumin 3.7 Alkaline Phosphatase 57 Total Protein 6.0 (*) AST 32 Bilirubin, Total 0.3 ALT 29 MAGNESIUM - Normal Magnesium 1.86 LACTATE - Normal Lactate 0.5 Narrative: Venipuncture immediately after or during the administration of Metamizole may lead to falsely low results. Testing should be performed immediately prior to Metamizole dosing. No orders to display Pt course which Intervention and treatment included : Procedure Procedures Medications lactated Ringer's bolus 1,000 mL (has no administration in time range) loperamide (Imodium) capsule 4 mg (has no administration in time range) ondansetron (Zofran) injection 4 mg (has no administration in time range) ED Course as of 09/10/241818Sep 10, [id number] Patient evaluated for diarrhea. Abdominal exam is benign. Lactate is normal. No leukocytosis. No need for CT imaging. Electrolytes all within normal range. IV fluid bolus given. Patient is feeling better. Loperamide given. No risk factors for C. difficile. Patient is discharged with instructions for follow-up, home care and return precautions. [ML] ED Course User Index [ML] Sanjuana Bills DO Diagnoses as of 09/10/241818 Gastroenteritis DISPOSITION: Patient is stable for discharge. Based upon my history, physical exam, evaluation and judgement regarding the aforementioned differentials, at the time of this assessment, I do not see evidence to support the presence of any life, neurologic, or limb threatening pathology in my considered differentials. Alternate non life threatening pathology has been considered, and has been ruled out based upon the findings of my evaluation. While there may be remaining pathology considered within the differential, this is not life threatening, not limb threatening, and does not warrant further emergent evaluation or treatment at this time. Shared decision making made with the patient as applicable. It is my judgement that further treatment and evaluation can safely proceed in the outpatient setting. Shared decision making was utilized to arrive at all clinical decisions. At this time I do not see evidence of an emergency medical condition based upon my medical screening examination. All imaging and laboratory results were discussed with the patient in detail including acute as well as incidental findings. I discussed the differential, results and discharge plan with the patient and/or family/friend/caregiver if present. Education and reassurance provided regards to presumed diagnosis. I emphasized the importance of follow-up with the physician I referred them to in the timeframe recommended. I explained reasons for the patient to return to the Emergency Department. Additional verbal discharge instructions were also given and discussed with the patient to supplement those generated by the EMR. We also discussed medications that were prescribed (if any) including common side effects and interactions as well as proper dosing and administration. The patient was advised to abstain from driving, operating heavy machinery or making significant decisions while taking medications such as opiates and muscle relaxers that may impair this. All questions were addressed. They understand return precautions and discharge instructions. The patient and/or family/friend/caregiver expressed understanding 1. Gastroenteritis Bifidobacterium infantis (ALIGN) 4 mg capsule loperamide (Imodium) 2 mg capsule ----- 09/10/24 at 5:05 PM - Sanjuana Bills, Internal & Emergency Medicine [1] Past Surgical History: Procedure Laterality Date BACK SURGERY BREAST BIOPSY [id number] CATARACT EXTRACTION Bilateral 2022 CERVICAL FUSION 2007 anterior cervical discectomy with fusion c5-6 INJECTION Right 06/06/2024 RT L2/3-L3/4 TFESI IR INJECTION EPIDURAL STEROID 03/04/2023 C6-7 IR INJECTION EPIDURAL STEROID Bilateral 08/26/2023 L2-3 TFESI OTHER SURGICAL HISTORY 01/23/2019 Rosalva fundoplication laparoscopic OTHER SURGICAL HISTORY 01/23/2019 Hernia repair OTHER SURGICAL HISTORY 01/23/2019 Foot surgery OTHER SURGICAL HISTORY 01/23/2019 Back surgery OTHER SURGICAL HISTORY 01/23/2019 Rectocele repair OTHER SURGICAL HISTORY 01/23/2019 Total hysterectomy abdominal OTHER SURGICAL HISTORY 01/23/2019 Tonsillectomy OTHER SURGICAL HISTORY 01/23/2019 Appendectomy OTHER SURGICAL HISTORY 01/23/2019 Esophagogastroduodenoscopy OTHER SURGICAL HISTORY 01/23/2019 Salpingo-oophorectomy bilateral OTHER SURGICAL HISTORY 01/23/2019 Tubal ligation OTHER SURGICAL HISTORY 01/23/2019 Knee surgery OTHER SURGICAL HISTORY 08/15/2020 Epidural steroid injection OTHER SURGICAL HISTORY 05/02/2020 Epidural steroid injection OTHER SURGICAL HISTORY 04/29/2020 Hip replacement OTHER SURGICAL HISTORY 04/29/2020 Pelvic surgery [2] Family History Problem Relation Name Age of Onset Hypertension Mother Diabetes Mother Heart failure Mother Heart failure Father Heart failure Sister Hypertension Brother Heart failure Brother Diabetes Other grandparent Throat cancer Other uncle [3] Social History Tobacco Use Smoking status: Never Passive exposure: Current Smokeless tobacco: Never Vaping Use Vaping status: Never Used Substance Use Topics Alcohol use: Never Drug use: Never [4] Allergies Allergen Reactions Amoxicillin-Pot Clavulanate Unknown Codeine Other Morphine Unknown Sanjuana Bills DO Resident 09/10/24 182 documented in this encounter [facility] Work Phone: 08-31-2024 History of Present illness Narrative Subjective Patient ID: Narendra Arguelles is a 73 y.o. female who presents for Pre-op Exam. [facility] Review of Systems Objective Physical Exam Assessment/Plan Kathya Bond MA 08/31/24 4:06 PM Subjective Narendra Arguelles is a 73 y.o. female who presents for Pre-op Exam. Here for pre-op evaluation for neck surgery/removal of hardware. She has h/o HTN, high chol, GERD (Dr Moncada), osteoporosis, anxiety, chronic pain, rheumatoid arthritis (Dr Chisholm), precancerous lesions on legs ([facility]) - all stable. She will also be getting clearance from ENT. She has had surgeries in the past, no issues with anesthesia. No chest pain, no shortness of breath. Other than her pain/numbness/tingling she is doing well. Objective Visit Vitals BP 138/82 Pulse 90 Physical Exam Vitals reviewed. Constitutional: General: She is not in acute distress. Cardiovascular: Rate and Rhythm: Normal rate and regular rhythm. Heart sounds: No murmur heard. Pulmonary: Effort: Pulmonary effort is normal. No respiratory distress. Breath sounds: Normal breath sounds. Skin: General: Skin is warm and dry. Neurological: General: No focal deficit present. Mental Status: She is alert. Mental status is at baseline. Assessment/Plan Problem List Items Addressed This Visit GERD (gastroesophageal reflux disease) HTN (hypertension) Hypercholesteremia Osteoporosis Rheumatoid arthritis Cervical radiculitis Anterolisthesis of cervical spine - Primary Jasmine Mathias MD documented in this encounter [facility] Work Phone: 08-31-2024 Instructions Jasmine Mathias MD - 08/31/2024 4:20 PM EDT She is medically stable for surgery. Follow up here as scheduled. documented in this encounter [facility] Work Phone: 08-24-2024 Note Right great toe trau esteban Patient is a pleasant 73-year-old female who comes in today with a 1-1/2-day history of right great toe trauma. She states that on Tuesday in the middle of the night she was getting a soda, a 7-Up out of the fridge and somehow they were too stuck together where she dropped 1 on her toe. States it hurt quite badly comes in today to make sure this is not broken. Physical Vascular: DP PT pulses are faintly palpable. CFT is fair mild edema. Derm: Does have ecchymosis present but no laceration. No deep nodules. Neuro: Light touch is normal. Musculoskeletal: Does have much pain to the dorsal aspect of the IPJ of the MPJ has a bunion is pain-free. X-rays reviewed: No fractures dislocations or subluxations to the great toe does have an obvious bunion but is asymptomatic Patient is a pleasant 73-year-old female with great toe trauma but no fracture. Can put ice on her toe once to twice per day and take it easy decrease exercise for the next month. Follow-up in 1 month to reevaluate. Additionally did discuss her bunion surgery she was asked about a first MPJ fusion. Would only do this if she is symptomatic and painful. AUTHENTICATED BY BAR TRIANA JR., ON 08/24/2024 15:11:45 [facility] 08-24-2024 History of Present illness Narrative Right great toe trauma Patient is a pleasant 73-year-old female who comes in today with a 1-1/2-day history of right great toe trauma. She states that on Tuesday in the middle of the night she was getting a soda, a 7-Up out of the fridge and somehow they were too stuck together where she dropped 1 on her toe. States it hurt quite badly comes in today to make sure this is not broken. Physical Vascular: DP PT pulses are faintly palpable. CFT is fair mild edema. Derm: Does have ecchymosis present but no laceration. No deep nodules. Neuro: Light touch is normal. Musculoskeletal: Does have much pain to the dorsal aspect of the IPJ of the MPJ has a bunion is pain-free. X-rays reviewed: No fractures dislocations or subluxations to the great toe does have an obvious bunion but is asymptomatic Patient is a pleasant 73-year-old female with great toe trauma but no fracture. Can put ice on her toe once to twice per day and take it easy decrease exercise for the next month. Follow-up in 1 month to reevaluate. Additionally did discuss her bunion surgery she was asked about a first MPJ fusion. Would only do this if she is symptomatic and painful. documented in this encounter [facility] 08-10-2024 Evaluation note Diagnosis Onset Date Resolution Cervical myelopathy with cervical radiculopathy acute August 10, 2024 9:25am Degenerative disc disease, cervical acute August 10, 2024 9:25am History of fusion of cervical spine acute August 10, 2024 9:25am Spondylolisthesis of cervical region acute August 10, 2024 9:25am [facility] Work Phone: 1(987) 993-993504-21-2025 History of Present illness Narrative* Celeste Moran APRN-BRIAN - 07/16/2024 9:00 AM EDT Subjective Patient ID: Narendra Arguelles is a 73 y.o. female who presents for Follow-up ([facility]-Patient in Pain clinic today for chief complaint of right neck that radiates up the side of her face and down past herright elbow. Rates pain 10/10 and describes it as stabbing and a tingling pain /).Pain is increasedwith activities such as bending over,trying to do to much. Patient reports that Dr Hernandez states he thinks she has a pinched nerve in her neck. Patient had X- rays of her shoulder and spine done on 06/26/24. Activities unable to perform related to pain ADL'S, she tries to push herself but she has her for help. Patient is taking tylenol, tramadol, flexeril, mobic, nortriptyline, pain patch and GPN. The patient states that she was having side effects from the 800 mg of GPN. She states that shecould not walk right and made her dizzy. She was also given Medrol Dospak which she did say it helped. She has tried massage and home stretches. Denies ice, heat and Chiro. She also has right thigh pain. Pain score for her thigh is 9-10/10. Some days are worse than others. The longer she stays in bed the worse the pain is. FABIANO=60% NEDRA KOHLI, LEONIE 07/16/24 8:57 AM The patient is a 73-year-old female who presents today for a follow-up appointment with increasing neck pain. She currently rates her pain a 10/10 primarily in the right side of her neck radiating upinto the side of her face and down into her right arm all the way to her mid forearm. The pain increases with any sort of activity such as bending, lifting, and trying to perform basic ADLs. At her last appointment with us at the end of May, the neck pain had just started, and advised the patientto give it a couple of days to see if it resolves on its own. However, it had only worsened and shehad seen her PCP who ordered x-rays of the cervical spine and right shoulder, and referred her to to see Dr. Hernandez. He says it is not coming from her shoulder, and that it is likely pinched nerve in her neck. She is wondering what options she has to help with the pain. She is currently on tramadol 50mg every 8 hours as needed, nortriptyline 25 mg nightly, meloxicam 15 mg daily, Flexeril 10 mg 3 times a day as needed, and Voltaren gel from her PCP. At her last appointment we had increased her gabapentin to 800 mg 3 times a day, however she had side effects with the increased dose and has been only taking 600 mg twice a day using her previous prescription. Review of Systems Constitutional: Negative. HENT: Negative. Eyes: Negative. Respiratory: Negative for cough, shortness of breath and wheezing. Cardiovascular: Negative for chest pain, palpitations and leg swelling. Endocrine: Negative. Genitourinary: Negative. Musculoskeletal: Positive for back pain, myalgias and neck pain. Negative for arthralgias. Skin: Negative. Allergic/Immunologic: Negative. Neurological: Negative for facial asymmetry, weakness and light-headedness. Hematological: Negative for adenopathy. Does not bruise/bleed easily. Psychiatric/Behavioral: Negative for dysphoric mood and suicidal ideas. Objective Physical Exam Constitutional: General: She is not in acute distress. Appearance: Normal appearance. HENT: Head: Normocephalic. Mouth/Throat: Mouth: Mucous membranes are moist. Eyes: Extraocular Movements: Extraocular movements intact. Cardiovascular: Rate and Rhythm: Normal rate and regular rhythm. Pulses: Normal pulses. Heart sounds: Normal heart sounds. No murmur heard. No friction rub. No gallop. Pulmonary: Effort: Pulmonary effort is normal. Breath sounds: Normal breath sounds. No wheezing, rhonchi or rales. Abdominal: General: Abdomen is flat. Palpations: Abdomen is soft. Musculoskeletal: Cervical back: Normal range of motion. Right lower leg: No edema. Left lower leg: No edema. Comments: Ambulates without assistance Strength 4/5 RUE RUE, 5/5 LUE Cervical ROM severely limited due to pain Cervical facet loading positive Lymphadenopathy: Cervical: No cervical adenopathy. Skin: General: Skin is warm and dry. Neurological: General: No focal deficit present. Mental Status: She is alert and oriented to person, place, and time. Mental status is at baseline. Psychiatric: Mood and Affect: Mood normal. Behavior: Behavior normal. Assessment/Plan Diagnoses and all orders for this visit: Cervical radiculitis - MR cervical spine w and wo IV contrast; Future - Referral to Neurosurgery; Future Neurogenic claudication due to lumbar spinal stenosis - Referral to Pain Medicine - gabapentin (Neurontin) 600 mg tablet; Take 1 tablet (600 mg) by mouth 3 times a day. Lumbosacral radiculopathy - Referral to Pain Medicine - gabapentin (Neurontin) 600 mg tablet; Take 1 tablet (600 mg) by mouth 3 times a day. Postlaminectomy syndrome of lumbar region - Referral to Pain Medicine Right hip pain - cyclobenzaprine (Flexeril) 10 mg tablet; Take 1 tablet (10 mg) by mouth 3 times a day as needed for muscle spasms. Anterolisthesis of cervical spine - MR cervical spine w and wo IV contrast; Future - Referral to Neurosurgery; Future Patient is a 73-year-old female with a past medical history significant for the above-mentioned problems. At her last appointment we had discussed spinal cord stimulator for her low back pain. However, her neck is the most bothersome pain right now and she would like to put the lower back on hold. We reviewed the x- rays that she had done, which shows a grade 1 anterolisthesis of 4.6 mm at C3-4, which has progressed since 11/11/2022 when it was only 1.6 mm. We previously discussed injections, butfor safety concerns given the progression of the anterolisthesis, I would like her to be evaluated by a spine surgeon before we pursue any injections. In the meantime we will continue her on gabapentin 600 mg 3 times a day and can refill her Flexeril 10 mg 3 times a day as needed. PDMP reviewed, Rxsent. She will follow-up with us after she sees Dr. Austin, call the clinic sooner if needed. We will order an MRI of her cervical spine to better evaluate the anterolisthesis and possible other sources of the radiculopathy., And expedite the process of her seeing neurosurgery. documented in this [facility] Work Phone: [phone]) 878-441104-15-2025 Evaluation + Plan note* Assessment & Plan Note - Soraya Hernandez MD - 07/10/2024 10:31 AM EDTAssociated Problem(s): Right shoulder pain Assessment: Cervical spondylosis with right upper extremity radiculopathy. She has a history of cervical fusion. This was done by a surgeon out of [place] who is now retired. Plan: Medrol Dosepak take as directed. Voltaren gel use as directed. Follow-up with pain management. If her neck pain continues she would benefit from reevaluation withthe spine surgery group that took over for her doctor. Follow-up in our office on a as needed basis. [facility] Work Phone: [phone]) 165-900104-15-2025 Miscellaneous Notes* Assessment & Plan Note - Soraya Hernandez MD - 07/10/2024 10:31 AM EDTAssociated Problem(s): Right shoulder pain Assessment: Cervical spondylosis with right upper extremity radiculopathy. She has a history of cervical fusion. This was done by a surgeon out of [place] who is now retired. Plan: Medrol Dosepak take as directed. Voltaren gel use as directed. Follow-up with pain management. If her neck pain continues she would benefit from reevaluation withthe spine surgery group that took over for her doctor. Follow-up in our office on a as needed basis. [facility]: [phone]) [phone] History of Present illness Narrative* Soraya Hernandez MD - 07/10/2024 9:00 AM EDT Assessment/Plan Encounter Diagnoses: Right shoulder pain, unspecified chronicity Acute pain of right shoulder Cervical neuritis No problem-specific Assessment & Plan notes found for this encounter. Right shoulder pain Assessment: Cervical spondylosis with right upper extremity radiculopathy. She has a history of cervical fusion. This was done by a surgeon out of [place] who is now retired. Plan: Medrol Dosepak take as directed. Voltaren gel use as directed. Follow-up with pain management. If her neck pain continues she would benefit from reevaluation withthe spine surgery group that took over for her doctor. Follow-up in our office on a as needed basis. Subjective Patient ID: Narendra Arguelles is a 73 y.o. female. Chief Complaint: Pain of the Right Shoulder Last Surgery: No surgery found Last Surgery Date: No surgery found HPI 73-year-old who is status post cervical fusion. She comes in today complaining of neck pain and pain that originates from the meghan- spinals and down into the trapezial area this then goes into the medial periscapular muscles and then down the arm past the shoulder towards the elbow. She describes numbness and tingling in these areas. She also has some pain that is more shoulder related but this is minimal. OBJECTIVE: ORTHO EXAM Right shoulder: Inspection: Skin healthy to gross inspection No ecchymosis, no edema, no gross atrophy Palpation: Acromioclavicular joint minimal tenderness Biceps tendon/ groove mild tenderness Anterior Acromial Bursal Area mild tenderness Cervical spine moderate tenderness ROM: Forward Flexion 160 degrees active External Rotation 40 degrees at 90 degrees abduction Internal Rotation 50 degrees at 90 degrees abduction Strength: 4/5 Supraspinatus isolation- resisted elevation 4+/5 Infraspinatus isolation- ER 5/5 Subscapularis- IR Negative lift off test Negative Spurling s test Positive Neer and Hawking s test Negative Speed's test Negative Inferior Sulcus Negative Anterior Apprehension Spurling's causes her neck pain but did not reproduce her radiculopathy today. Range of motion of her neck reveals 70 degrees of lateral rotation to the left and 60 to the right. She gets extension to about 45 degrees. Chin to chest lacks about 2 cm of distance. Spurling's to the left caused her some central neck pain. Spurling's to the right caused her pain in the periscapular and perispinal muscles and in the trapezial area but not past the level of her shoulder. In the recent past those maneuvers would have caused pain down her arm. Full unrestricted motion at Elbow/Wrist/Hand Neurovascular exam normal distally IMAGE RESULTS: Point of Care Ultrasound These images are not reportable by radiology and will not be interpreted by Radiologists. ULTRASOUND DIAGNOSTIC ULTRASOUND FINAL REPORT: Right SHOULDER Provider: Soraya Hernandez MD Date of Exam: Today Procedure: Ultrasound, extremity, nonvascular, real-time, COMPLETE, anatomic specific. Site: SHOULDER Indication: SHOULDER PAIN Technique: B-Mode Ultrasound Examination performed using 8-13 MHz linear transducer with [employer] STUDY TYPE: 1. ULTRASOUND EXTREMITY INCLUDING BUT NOT LIMITED TO SHOULDER MUSCLE, TENDONS, LIGAMENTS, FATTY TISSUES, SUBCUTANEOUS TISSUES AND OTHER SOFT TISSUE STRUCTURES SUCH ABSCESSES OR FREE FLUID ACCUMULATION WITHIN THE PRIMARY JOINT WELL ADJACENT JOINTS. 2. REAL TIME WITH IMAGE DOCUMENTATION 3. NON-VASCULAR 4. COMPLETE STUDY WHICH INCLUDES A THOROUGH EVALUATION OF THE SHOULDER MUSCLE, TENDONS, LIGAMENTS, FATTY TISSUES, SUBCUTANEOUS TISSUES AND OTHER SOFT TISSUE STRUCTURES SUCH ABSCESSES OR FREE FLUIDACCUMULATION WITHIN THE PRIMARY JOINT WELL ADJACENT JOINTS. Live ultrasound was performed of the patient s SHOULDER and PERMANENTLY documented. This is a thorough and complete evaluation of a specific anatomic region specifically the SHOULDER. PERMANENT Imagedocumentation was performed. This is the complete and final ultrasound report of the patient's SHOULDER. The patient was positioned in order to optimize the ultrasound evaluation of the SHOULDER. Ultrasound gel was used as a conductive medium in order to both transmit and receive ultrasonic signalsthat characterize the soft tissues. . I personally performed the ultrasound and reviewed the findings. These show: Findings: SHOULDER Meghan-articular evaluation: Live ultrasound was performed of the patient's SHOULDER that shows tendinosis and impingement findings with partial tears of the supraspinatus and infraspinatus tendons with the deltoid muscle fibers showing normal striations. There was moderate sub acromial effusion. Evaluation of the subscapularis with the arm in external rotation showed an intact and normal appearingsubscapularis tendon. Joint Evaluation: The biceps tendon was visualized within the bicipital groove. Procedures Orders Placed This Encounter Point of Care Ultrasound Referral to Pain Medicine methylPREDNISolone (Medrol Dospak) 4 mg tablets diclofenac sodium (Voltaren) 1 % gel [facility] Work Phone: [phone] History of Present illness Narrative* Kathya Bond MA - 06/26/2024 11:40 AM EDT Subjective Patient ID: Narendra Arguelles is a 73 y.o. female who presents for Shoulder Pain (Right side since last week ). HPI Review of Systems Objective Physical Exam Assessment/Plan Kathya Bond MA 06/26/24 11:41 AM * Jasmine Mathias MD - 06/26/2024 11:40 AM EDT Subjective Narendra Arguelles is a 73 y.o. female who presents for Shoulder Pain (Right side since last week ). Here c/o right shoulder pain for the past week. Does not recall a specific injury. Started with a stabbing feeling in her shoulder, radiates down her arm and into her neck and face. She is taking some tylenol and tramadol. No rash that she has noticed. Objective Visit Vitals BP 142/64 Pulse 89 Physical Exam Vitals reviewed. Constitutional: General: She is not in acute distress. Cardiovascular: Rate and Rhythm: Normal rate and regular rhythm. Heart sounds: No murmur heard. Pulmonary: Effort: Pulmonary effort is normal. No respiratory distress. Breath sounds: Normal breath sounds. Musculoskeletal: Comments: Decreased ROM of the right upper arm/shoulder due to pain. She has some tenderness to palpation over the upper arm/shoulder/neck. Skin: General: Skin is warm and dry. Neurological: General: No focal deficit present. Mental Status: She is alert. Mental status is at baseline. Assessment/Plan Problem List Items Addressed This Visit None Visit Diagnoses Acute pain of right shoulder - Primary Relevant Orders XR shoulder right 2+ views XR cervical spine complete 4-5 views Jasmine Mathias MD documented in this [facility] Work Phone: [phone] Instructions* Patient Instructions* Jasmine Mathias MD - 06/26/2024 11:40 AM EDT She has some prednisone at home and will take that for a few days, she also has some flexeril at home and hasn't tried that so she will try that. Will get some Xrays as well. Follow up based on results and symptoms. documented in this [facility] Work Phone: [phone] 838-259303-31-2025 History of Present illness Narrative* Celeste Wood Dean, MANAGER ORGANIZATIONAL-PAPER REELER - 06/25/2024 10:15 AM EDT Subjective Patient ID: Narendra Arguelles is a 73 y.o. female who presents for Follow-up (FUV- Right L2/3-L3/4 TFESI done on 06/06/24. Patient stated that she did not get any relief. Patient states that she is still in pain when she gets up in the morning. Patient is taking alternating tylenol and tramadol. Patient states that she is still using a cane in the morning to walk from bedroom to the bathroom. She stated that after sitting for a little bit of time she feels better. Patient states that the pain subsides in her thighs. Patient describes the pain as burning. ). Numbness on the side of her thighs. Pain score 4/10. When the patients gets up in the morning she is a 10/10. ETOH-neg FABIANO-44% NEDRA KOHLI, LEONIE 06/25/24 10:06 AM The patient is a 73-year-old female who presents today for follow-up after undergoing a right side L2-3 and L3-4 transforaminal epidural steroid injection on 06/06/2024. The patient reports no relief from this procedure. She did not notice any difference in her pain even for short period of time. She currently rates her pain a 4/10, but says when she first gets up in the morning the pain is a 10/10. She has tried a couple injections in the past with either no relief or very short term relief. She has seen a surgeon, and they do not recommend surgery because of her bone density. At her last appointment she was also given information regarding spinal cord stimulator, and says she was very hesitant to pursue this option, she has talked to several people in the past who have them and they do not feel as if it is effective. We discussed this much more in depth, explained the overall process. She is willing to give this a try, and agreed to a referral to [facility] and to proceed with psych eval. at her last appointment she was continued on pregabalin 225 mg twice a day. She denies side effects to this medication, but is unsure of how much it was helping her. She feels as if the gabapentin sheused to be on was more effective than pregabalin. She is wondering if she can switch back to the gabapentin. Review of Systems Constitutional: Negative. HENT: Negative. Eyes: Negative. Respiratory: Negative for cough, shortness of breath and wheezing. Cardiovascular: Negative for chest pain, palpitations and leg swelling. Endocrine: Negative. Genitourinary: Negative. Musculoskeletal: Positive for back pain and myalgias. Negative for arthralgias. Skin: Negative. Allergic/Immunologic: Negative. Neurological: Negative for facial asymmetry, weakness and light-headedness. Hematological: Negative for adenopathy. Does not bruise/bleed easily. Psychiatric/Behavioral: Negative for dysphoric mood and suicidal ideas. Objective Physical Exam Constitutional: General: She is not in acute distress. Appearance: Normal appearance. HENT: Head: Normocephalic. Mouth/Throat: Mouth: Mucous membranes are moist. Eyes: Extraocular Movements: Extraocular movements intact. Cardiovascular: Rate and Rhythm: Normal rate and regular rhythm. Pulses: Normal pulses. Heart sounds: Normal heart sounds. No murmur heard. No friction rub. No gallop. Pulmonary: Effort: Pulmonary effort is normal. Breath sounds: Normal breath sounds. No wheezing, rhonchi or rales. Abdominal: General: Abdomen is flat. Palpations: Abdomen is soft. Musculoskeletal: Cervical back: Normal range of motion. Right lower leg: No edema. Left lower leg: No edema. Comments: Ambulates with a cane Strength 5/5 BLE Lymphadenopathy: Cervical: No cervical adenopathy. Skin: General: Skin is warm and dry. Neurological: General: No focal deficit present. Mental Status: She is alert and oriented to person, place, and time. Mental status is at baseline. Psychiatric: Mood and Affect: Mood normal. Behavior: Behavior normal. Assessment/Plan Diagnoses and all orders for this visit: Neurogenic claudication due to lumbar spinal stenosis - gabapentin (Neurontin) 800 mg tablet; Take 1 tablet (800 mg) by mouth 3 times a day. - Referral to Pain Medicine; Future - Referral to Psychiatry; Future Lumbosacral radiculopathy - gabapentin (Neurontin) 800 mg tablet; Take 1 tablet (800 mg) by mouth 3 times a day. - Referral to Pain Medicine; Future - Referral to Psychiatry; Future Spondylosis of lumbosacral region, unspecified spinal osteoarthritis complication status Postlaminectomy syndrome of lumbar region - Referral to Pain Medicine; Future - Referral to Psychiatry; Future The patient is a 74-year-old female with a past medical history significant for the above-mentionedproblems. She is following up after TFESI with no relief. She has previously had a different TFESI with very short-lived relief. She has seen 3 different surgeons who do not recommend surgery due to her bone density. She is wondering what other options she is left with. We again discussed in depth t spinal cord stimulator trial process, and she is hesitantly agreeable to being referred to [facility] to discuss the trial process more in depth with Dr. Estrada there. Will also refer to psych for the standard psych eval as part of the SCS trial workup. In the meantime, we will try the pregabalin back to gabapentin added equivalent dose of 800 mg 3 times a day. Follow-up per protocol. [facility] Work Phone: [phone] Miscellaneous Notes* Perioperative Nursing Note - Chula Silverman RN - 06/06/2024 11:38 AM EDT Discharge instructions reviewed by Marva Knight RN no questions and verbalized understanding. discharged to exit via wheel chair to be driven home by alexia Finn documented in [facility]Day[facility] Work Phone: [phone] Nurse Surgical operation note* Perioperative Nursing Note - Chula Silverman RN - 06/06/2024 11:38 AM EDT Discharge instructions reviewed by Marva Knight RN no questions and verbalized understanding. discharged to exit via wheel chair to be driven home by alexia Finn well [facility] Work Phone: [phone] 611-760703-12-2025 NoteTable formatting from the original result was not included. Procedure Transforaminal Indication Lumbosacral radiculopathy Medications dexAMETHasone (PF) (Decadron) injection 10 mg lidocaine PF (Xylocaine) 5 mg/mL (0.5 %) injection 2 mL lidocaine PF (Xylocaine) 20 mg/mL (2 %) injection 2 mL iohexol (OMNIPaque) 300 mg iodine/mL solution 2 mL (Totals for administrations occurring from 1046 to 1059 on 06/06/24) Preprocedure A history and physical has been performed, and patient medication allergies have been reviewed. The patient's tolerance of previous anesthesia has been reviewed. The risks and benefits of the procedure and the sedation options and risks were discussed with the patient. All questions were answered and informed consent obtained. Details of the Procedure Procedure: Right L2/3 and L3/4 transforaminal epidural steroid injections under fluoroscopic guidance Anesthesia: Local Complications: None After informed consent was obtained, the patient was brought to the procedure suite and placed in the prone position. Pulse oximetry and blood pressure were monitored throughout. The low back area was prepped and draped in the usual sterile fashion. Using fluoroscopic guidance, the skin and subcutaneous tissue overlying the needle trajectory of the neuroforamina were anesthetized with 2.0% lidocaine. The 22-gauge Sprotte needles were then advanced under fluoroscopic guidance into the foramina. Needle tip positions were confirmed in at least two views. Injection of Omnipaque contrast revealed appropriate spread of the dye without vascular uptake. Next, at each site, 1.5 mL of 0.5% lidocaine and 5 mg dexamethasone were injected in divided doses through each needle tip. The needles were removed and the patient was then transferred to the recovery room in stable condition. The patient tolerated the procedure well. There were no apparent complications. FOLLOW UP: The patient will update us on their response to this procedure, and agrees to continue currently prescribed/recommended therapies. Procedure Provider Smith Estrada DO Procedure Location [facility] [place] [address] [id number] Referring Provider Mauricio Mancilla PA-C [address] [id number] History and physical note* Smith Estrada DO - 06/06/2024 10:30 AM EDT History Of Present Illness Narendra Arguelles is a 73 y.o. female presenting with pain. Past Medical History Past Medical History: Diagnosis Date Encounter for other screening for malignant neoplasm of breast Screening for breast cancer Encounter for screening for malignant neoplasm of colon Screen for colon cancer Encounter for screening for osteoporosis Osteoporosis screening Fibrocystic breast [id number] Osteopenia Osteoporosis Pain in unspecified hip 02/19/2020 Hip pain, acute Personal history of diseases of the blood and blood-forming organs and certain disorders involving the immune mechanism 11/21/2019 History of anemia Surgical History Past Surgical History: Procedure Laterality Date BACK SURGERY BREAST BIOPSY [id number] CATARACT EXTRACTION Bilateral 2022 CERVICAL FUSION 2007 anterior cervical discectomy with fusion c5-6 IR INJECTION EPIDURAL STEROID 03/04/2023 C6-7 IR INJECTION EPIDURAL STEROID Bilateral 08/26/2023 L2-3 TFESI OTHER SURGICAL HISTORY 01/23/2019 Rosalva fundoplication laparoscopic OTHER SURGICAL HISTORY 01/23/2019 Hernia repair OTHER SURGICAL HISTORY 01/23/2019 Foot surgery OTHER SURGICAL HISTORY 01/23/2019 Back surgery OTHER SURGICAL HISTORY 01/23/2019 Rectocele repair OTHER SURGICAL HISTORY 01/23/2019 Total hysterectomy abdominal OTHER SURGICAL HISTORY 01/23/2019 Tonsillectomy OTHER SURGICAL HISTORY 01/23/2019 Appendectomy OTHER SURGICAL HISTORY 01/23/2019 Esophagogastroduodenoscopy OTHER SURGICAL HISTORY 01/23/2019 Salpingo-oophorectomy bilateral OTHER SURGICAL HISTORY 01/23/2019 Tubal ligation OTHER SURGICAL HISTORY 01/23/2019 Knee surgery OTHER SURGICAL HISTORY 08/15/2020 Epidural steroid injection OTHER SURGICAL HISTORY 05/02/2020 Epidural steroid injection OTHER SURGICAL HISTORY 04/29/2020 Hip replacement OTHER SURGICAL HISTORY 04/29/2020 Pelvic surgery Social History She reports that she has never smoked. She has been exposed to tobacco smoke. She has never used smokeless tobacco. She reports that she does not drink alcohol and does not use drugs. Family History Family History Problem Relation Name Age of Onset Hypertension Mother Diabetes Mother Heart failure Mother Heart failure Father Heart failure Sister Hypertension Brother Heart failure Brother Diabetes Other grandparent Throat cancer Other uncle Allergies Amoxicillin-pot clavulanate, Codeine, and Morphine Review of Systems All other systems reviewed and are negative. Physical Exam Last Recorded Vitals Blood pressure 149/82, pulse 88, temperature 36.1 C (97 F), temperature source Temporal, resp. rate20, height 1.549 m (5' 1), weight 92.5 kg (204 lb), SpO2 97%. Relevant Results Constitutional: No acute distress, well appearing and well nourished. Patient appears stated age. Eyes: nonicteric sclerae ENT: Hearing is grossly intact. Neck: trachea midline Head and Face: grossly normal. Respiratory: nonlabored breathing Cardiovascular: rate per vitals. Neuro: alert, moving extremities. Assessment/Plan Assessment & Plan Lumbosacral radiculopathy ltr I spent minutes in the professional and overall care of this patient. Smith Estrada DO [facility] Work Phone: [phone] History and physical note* Smith Estrada DO - 06/06/2024 10:30 AM EDT History Of Present Illness Narendra Arguelles is a 73 y.o. female presenting with pain. Past Medical History Past Medical History: Diagnosis Date Encounter for other screening for malignant neoplasm of breast Screening for breast cancer Encounter for screening for malignant neoplasm of colon Screen for colon cancer Encounter for screening for osteoporosis Osteoporosis screening Fibrocystic breast [id number] Osteopenia Osteoporosis Pain in unspecified hip 02/19/2020 Hip pain, acute Personal history of diseases of the blood and blood-forming organs and certain disorders involving the immune mechanism 11/21/2019 History of anemia Surgical History Past Surgical History: Procedure Laterality Date BACK SURGERY BREAST BIOPSY [id number] CATARACT EXTRACTION Bilateral 2022 CERVICAL FUSION 2008 anterior cervical discectomy with fusion c5-6 IR INJECTION EPIDURAL STEROID 03/04/2023 C6-7 IR INJECTION EPIDURAL STEROID Bilateral 08/26/2023 L2-3 TFESI OTHER SURGICAL HISTORY 01/23/2019 Rosalva fundoplication laparoscopic OTHER SURGICAL HISTORY 01/23/2019 Hernia repair OTHER SURGICAL HISTORY 01/23/2019 Foot surgery OTHER SURGICAL HISTORY 01/23/2019 Back surgery OTHER SURGICAL HISTORY 01/23/2019 Rectocele repair OTHER SURGICAL HISTORY 01/23/2019 Total hysterectomy abdominal OTHER SURGICAL HISTORY 01/23/2019 Tonsillectomy OTHER SURGICAL HISTORY 01/23/2019 Appendectomy OTHER SURGICAL HISTORY 01/23/2019 Esophagogastroduodenoscopy OTHER SURGICAL HISTORY 01/23/2019 Salpingo-oophorectomy bilateral OTHER SURGICAL HISTORY 01/23/2019 Tubal ligation OTHER SURGICAL HISTORY 01/23/2019 Knee surgery OTHER SURGICAL HISTORY 08/15/2020 Epidural steroid injection OTHER SURGICAL HISTORY 05/02/2020 Epidural steroid injection OTHER SURGICAL HISTORY 04/29/2020 Hip replacement OTHER SURGICAL HISTORY 04/29/2020 Pelvic surgery Social History She reports that she has never smoked. She has been exposed to tobacco smoke. She has never used smokeless tobacco. She reports that she does not drink alcohol and does not use drugs. Family History Family History Problem Relation Name Age of Onset Hypertension Mother Diabetes Mother Heart failure Mother Heart failure Father Heart failure Sister Hypertension Brother Heart failure Brother Diabetes Other grandparent Throat cancer Other uncle Allergies Amoxicillin-pot clavulanate, Codeine, and Morphine Review of Systems All other systems reviewed and are negative. Physical Exam Last Recorded Vitals Blood pressure 149/82, pulse 88, temperature 36.1 C (97 F), temperature source Temporal, resp. rate20, height 1.549 m (5' 1), weight 92.5 kg (204 lb), SpO2 97%. Relevant Results Constitutional: No acute distress, well appearing and well nourished. Patient appears stated age. Eyes: nonicteric sclerae ENT: Hearing is grossly intact. Neck: trachea midline Head and Face: grossly normal. Respiratory: nonlabored breathing Cardiovascular: rate per vitals. Neuro: alert, moving extremities. Assessment/Plan Assessment & Plan Lumbosacral radiculopathy ltr I spent minutes in the professional and overall care of this patient. Smith Estrada DO [facility] Work Phone: [phone] History of Present illness Narrative* Jasmine Mathias MD - 05/21/2024 10:00 AM EST Subjective Narendra Arguelles is a 73 y.o. female who presents for Illness (Wheezing, went to urgent care 05/07). Here c/o worsening cough, congestion, wheezing. She went to urgent care on 05/07 - when she was hereon 05/14 she thought she was getting better. Since then she has gotten worse again - she did anotherZpak. She states that she thinks she is slightly better today than she was yesterday. She states that she is not coughing as much as she was, chest is not as heavy as it was. Objective Visit Vitals BP 112/84 Pulse 83 Physical Exam Vitals reviewed. Constitutional: General: She is not in acute distress. Cardiovascular: Rate and Rhythm: Normal rate and regular rhythm. Heart sounds: No murmur heard. Pulmonary: Effort: Pulmonary effort is normal. No respiratory distress. Breath sounds: Normal breath sounds. Skin: General: Skin is warm and dry. Neurological: General: No focal deficit present. Mental Status: She is alert. Mental status is at baseline. Assessment/Plan Problem List Items Addressed This Visit None Visit Diagnoses Upper respiratory tract infection, unspecified type - Primary Jasmine Mathias MD [facility] Work Phone: [phone] Instructions* Patient Instructions* Jasmine Mathias MD - 05/21/2024 10:00 AM EST Finish current medications. Follow up if no improvement or if she worsens. [facility] Work Phone: 1([phone]) 569-537502-17-2025 Evaluation + Plan note* Assessment & Plan Note - Jasmine Mathias MD - 05/14/2024 10:00 AM ESTAssociated Problem(s): Anxiety Orders: Follow Up In Primary Care - Medicare Annual [facility] Work Phone: [phone]) 311-375902-17-2025 Evaluation + Plan note* Assessment & Plan Note - Jasmine Mathias MD - 05/14/2024 10:00 AM ESTAssociated Problem(s): Chronic pain Orders: Follow Up In Primary Care - Medicare Annual [facility] Work Phone: [phone] 222-312602-17-2025 Evaluation + Plan note* Assessment & Plan Note - Jasmine Mathias MD - 05/14/2024 10:00 AM ESTAssociated Problem(s): HTN (hypertension) Orders: Follow Up In Primary Care - Medicare Annual CBC and Auto Differential; Future Comprehensive Metabolic Panel; Future Lipid Panel; Future TSH with reflex to Free T4 if abnormal; Future Vitamin B12; Future [facility] Work Phone: [phone] Evaluation + Plan note* Assessment & Plan Note - Jasmine Mathias MD - 05/14/2024 10:00 AM ESTAssociated Problem(s): Hypercholesteremia Orders: Follow Up In Primary Care - Medicare Annual CBC and Auto Differential; Future Comprehensive Metabolic Panel; Future Lipid Panel; Future TSH with reflex to Free T4 if abnormal; Future Vitamin B12; Future [facility] Work Phone: [phone] Evaluation + Plan note* Assessment & Plan Note - Jasmine Mathias MD - 05/14/2024 10:00 AM ESTAssociated Problem(s): Osteoporosis Orders: Follow Up In Primary Care - Medicare Annual [facility] Work Phone: [phone]) [phone] Evaluation + Plan note* Assessment & Plan Note - Jasmine Mathias MD - 05/14/2024 10:00 AM ESTAssociated Problem(s): Primary generalized (osteo)arthritis Orders: Follow Up In Primary Care - Medicare Annual CBC and Auto Differential; Future Comprehensive Metabolic Panel; Future Lipid Panel; Future TSH with reflex to Free T4 if abnormal; Future Vitamin B12; Future [facility] Work Phone: [phone]) 525-600102-17-2025 Evaluation + Plan note* Assessment & Plan Note - Jasmine Mathias MD - 05/14/2024 10:00 AM ESTAssociated Problem(s): Rheumatoid arthritis Orders: Follow Up In Primary Care - Medicare Annual CBC and Auto Differential; Future Comprehensive Metabolic Panel; Future Lipid Panel; Future TSH with reflex to Free T4 if abnormal; Future Vitamin B12; Future [facility] Work Phone: [phone]) [phone] Evaluation + Plan note* Assessment & Plan Note - Jasmine Mathias MD - 05/14/2024 10:00 AM ESTAssociated Problem(s): GERD (gastroesophageal reflux disease) Orders: Follow Up In Primary Care - Medicare Annual [facility] Work Phone: [phone]) 339-612002-17-2025 Evaluation + Plan note* Assessment & Plan Note - Jasmine Mathias MD - 05/14/2024 10:00 AM ESTAssociated Problem(s): Edema Orders: Follow Up In Primary Care - Medicare Annual furosemide (Lasix) 20 mg tablet; Take 1 tablet (20 mg) by mouth once daily. [facility] Work Phone: [phone] Evaluation + Plan note* Assessment & Plan Note - Jasmine Mathias MD - 05/14/2024 10:00 AM ESTAssociated Problem(s): Class 2 severe obesity with serious comorbidity and body mass index (BMI) of35.0 to 35.9 in adult Orders: Follow Up In Primary Care - Medicare Annual [facility] Work Phone: [phone] 290-217202-17-2025 History of Present illness Narrative* Jasmine Mathias MD - 05/14/2024 10:00 AM EST Subjective Reason for Visit: Narendra Arguelles is an 73 y.o. female here for a Medicare Wellness visit. Past Medical, Surgical, and Family History reviewed and updated in chart. Reviewed all medications by prescribing practitioner or clinical pharmacist (such as prescriptions,OTCs, herbal therapies and supplements) and documented in the medical record. Here for f/u HTN, high chol, GERD (Dr Moncada), osteoporosis, anxiety, chronic pain, rheumatoid arthritis (Dr Chisholm), precancerous lesions on legs ([facility]) - all stable. She states that overall she is doing pretty well. She was seen in [facility] last week and was treated for bronchitis - she feels somewhat better - she was treated with a Zpak and tessalon and prednisone. Advance directives:. Advanced Care Planning discussed and documented advance care plan or surrogatedecision maker documented in the medical record. Patient has living will. Patient has healthcare POA. Patient Care Team: Jasmine Mathias MD as PCP - General (Family Medicine) Jasmine Mathias [facility] Attributed Provider Bryan Luz MD as Surgeon (Neurosurgery) Della You RN as Venue Manager (Case Management) Objective Vitals: BP 122/74 Pulse 88 Ht 1.549 m (5' 1) Wt 93.5 kg (206 lb 1.6 oz) SpO2 98% BMI 38.94 kg/m Physical Exam Vitals reviewed. Constitutional: General: She is not in acute distress. Cardiovascular: Rate and Rhythm: Normal rate and regular rhythm. Heart sounds: No murmur heard. Pulmonary: Effort: Pulmonary effort is normal. No respiratory distress. Breath sounds: Normal breath sounds. Comments: Scattered wheezes. Skin: General: Skin is warm and dry. Neurological: General: No focal deficit present. Mental Status: She is alert. Mental status is at baseline. Latest Reference Range & Units 05/09/24 06:10 GLUCOSE 65 - 99 mg/dL 102 (H) SODIUM 135 - 146 mmol/L 142 POTASSIUM 3.5 - 5.3 mmol/L 4.3 CHLORIDE 98 - 110 mmol/L 104 CARBON DIOXIDE 20 - 32 mmol/L 29 ELECTROLYTE BALANCE 7 - 17 mmol/L (calc) 9 UREA NITROGEN (BUN) 7 - 25 mg/dL 15 CREATININE 0.60 - 1.00 mg/dL 0.79 EGFR > OR = 60 mL/min/1.73m2 79 CALCIUM 8.6 - 10.4 mg/dL 9.2 ALBUMIN 3.6 - 5.1 g/dL 4.0 PROTEIN, TOTAL 6.1 - 8.1 g/dL 6.3 ALKALINE PHOSPHATASE 37 - 153 U/L 86 ALT 6 - 29 U/L 19 AST 10 - 35 U/L 25 BILIRUBIN, TOTAL 0.2 - 1.2 mg/dL 0.3 CHOLESTEROL, TOTAL <200 mg/dL 139 HDL CHOLESTEROL > OR = 50 mg/dL 63 CHOL/HDLC RATIO <5.0 (calc) 2.2 LDL-CHOLESTEROL mg/dL (calc) 57 TRIGLYCERIDES <150 mg/dL 102 NON HDL CHOLESTEROL <130 mg/dL (calc) 76 TSH 0.40 - 4.50 mIU/L 2.09 VITAMIN D,25-OH,TOTAL,IA 30 - 100 ng/mL 52 WHITE BLOOD CELL COUNT 3.8 - 10.8 Thousand/uL 3.5 (L) RED BLOOD CELL COUNT 3.80 - 5.10 Million/uL 3.82 HEMOGLOBIN 11.7 - 15.5 g/dL 11.4 (L) HEMATOCRIT 35.0 - 45.0 % 36.5 MCV 80.0 - 100.0 fL 95.5 MCH 27.0 - 33.0 pg 29.8 MCHC 32.0 - 36.0 g/dL 31.2 (L) RDW 11.0 - 15.0 % 15.7 (H) PLATELET COUNT 140 - 400 Thousand/uL 229 MPV 7.5 - 12.5 fL 11.5 ABSOLUTE NEUTROPHILS 1,500 - 7,800 cells/uL 1,915 ABSOLUTE LYMPHOCYTES 850 - 3,900 cells/uL 889 ABSOLUTE MONOCYTES 200 - 950 cells/uL 564 ABSOLUTE EOSINOPHILS 15 - 500 cells/uL 102 ABSOLUTE BASOPHILS 0 - 200 cells/uL 32 NEUTROPHILS % 54.7 LYMPHOCYTES % 25.4 MONOCYTES % 16.1 EOSINOPHILS % 2.9 BASOPHILS % 0.9 (H): Data is abnormally high (L): Data is abnormally low Assessment & Plan Anxiety Orders: Follow Up In Primary Care - Medicare Annual Chronic pain syndrome Orders: Follow Up In Primary Care - Medicare Annual Primary hypertension Orders: Follow Up In Primary Care - Medicare Annual CBC and Auto Differential; Future Comprehensive Metabolic Panel; Future Lipid Panel; Future TSH with reflex to Free T4 if abnormal; Future Vitamin B12; Future Hypercholesteremia Orders: Follow Up In Primary Care - Medicare Annual CBC and Auto Differential; Future Comprehensive Metabolic Panel; Future Lipid Panel; Future TSH with reflex to Free T4 if abnormal; Future Vitamin B12; Future Osteoporosis, unspecified osteoporosis type, unspecified pathological fracture presence Orders: Follow Up In Primary Care - Medicare Annual Primary generalized (osteo)arthritis Orders: Follow Up In Primary Care - Medicare Annual CBC and Auto Differential; Future Comprehensive Metabolic Panel; Future Lipid Panel; Future TSH with reflex to Free T4 if abnormal; Future Vitamin B12; Future Rheumatoid arthritis involving multiple sites, unspecified whether rheumatoid factor present (Multi) Orders: Follow Up In Primary Care - Medicare Annual CBC and Auto Differential; Future Comprehensive Metabolic Panel; Future Lipid Panel; Future TSH with reflex to Free T4 if abnormal; Future Vitamin B12; Future Gastroesophageal reflux disease without esophagitis Orders: Follow Up In Primary Care - Medicare Annual Vitamin D deficiency Orders: Follow Up In Primary Care - Medicare Annual Edema, unspecified type Orders: Follow Up In Primary Care - Medicare Annual furosemide (Lasix) 20 mg tablet; Take 1 tablet (20 mg) by mouth once daily. Class 2 severe obesity with serious comorbidity and body mass index (BMI) of 35.0 to 35.9 in adult,unspecified obesity type Orders: Follow Up In Primary Care - Medicare Annual Routine general medical examination at health care facility Visit for screening mammogram Orders: BI mammo bilateral screening tomosynthesis; [facility]: [phone]) 452-861402-17-2025 Instructions* Patient Instructions* Jasmine Mathias MD - 05/14/2024 10:00 AM EST Continue current medications. Follow up with specialists as scheduled. Follow up in 6 months, sooner if needed. [facility] Work Phone: [phone] 436-883302-17-2025 Miscellaneous Notes* Assessment & Plan Note - Jasmine Mathias MD - 05/14/2024 10:00 AM ESTAssociated Problem(s): Anxiety Orders: Follow Up In Primary Care - Medicare Annual * Assessment & Plan Note - Jasmine Mathias MD - 05/14/2024 10:00 AM EST Associated Problem(s): Chronic pain Orders: Follow Up In Primary Care - Medicare Annual * Assessment & Plan Note - Jasmine Mathias MD - 05/14/2024 10:00 AM EST Associated Problem(s): HTN (hypertension) Orders: Follow Up In Primary Care - Medicare Annual CBC and Auto Differential; Future Comprehensive Metabolic Panel; Future Lipid Panel; Future TSH with reflex to Free T4 if abnormal; Future Vitamin B12; Future * Assessment & Plan Note - Jasmine Mathias MD - 05/14/2024 10:00 AM EST Associated Problem(s): Hypercholesteremia Orders: Follow Up In Primary Care - Medicare Annual CBC and Auto Differential; Future Comprehensive Metabolic Panel; Future Lipid Panel; Future TSH with reflex to Free T4 if abnormal; Future Vitamin B12; Future * Assessment & Plan Note - Jasmine Mathias MD - 05/14/2024 10:00 AM EST Associated Problem(s): Osteoporosis Orders: Follow Up In Primary Care - Medicare Annual * Assessment & Plan Note - Jasmine Mathias MD - 05/14/2024 10:00 AM EST Associated Problem(s): Primary generalized (osteo)arthritis Orders: Follow Up In Primary Care - Medicare Annual CBC and Auto Differential; Future Comprehensive Metabolic Panel; Future Lipid Panel; Future TSH with reflex to Free T4 if abnormal; Future Vitamin B12; Future * Assessment & Plan Note - Jasmine Mathias MD - 05/14/2024 10:00 AM EST Associated Problem(s): Rheumatoid arthritis Orders: Follow Up In Primary Care - Medicare Annual CBC and Auto Differential; Future Comprehensive Metabolic Panel; Future Lipid Panel; Future TSH with reflex to Free T4 if abnormal; Future Vitamin B12; Future * Assessment & Plan Note - Jasmine Mathias MD - 05/14/2024 10:00 AM EST Associated Problem(s): GERD (gastroesophageal reflux disease) Orders: Follow Up In Primary Care - Medicare Annual * Assessment & Plan Note - Jasmine Mathias MD - 05/14/2024 10:00 AM EST Associated Problem(s): Edema Orders: Follow Up In Primary Care - Medicare Annual furosemide (Lasix) 20 mg tablet; Take 1 tablet (20 mg) by mouth once daily. * Assessment & Plan Note - Jasmine Mathias MD - 05/14/2024 10:00 AM EST Associated Problem(s): Class 2 severe obesity with serious comorbidity and body mass index (BMI) of35.0 to 35.9 in adult Orders: Follow Up In Primary Care - Medicare Annual documented in this [facility] Work Phone: [phone] 870-261802-10-2025 History of Present illness Narrative* Nena Aguilar APRN-PAPER REELER - 05/07/2024 9:20 AM EST 73 y.o. female presents for evaluation of URI. Symptoms including cough, congestion, body aches, malaise, and headache have been present for several days and refractory to OTC meds. No fever, chills,nausea, vomiting, abdominal pain, CP, or SOB. No exacerbating factors. No known COVID 19/flu exposure. Vitals: 05/07/24 0921 BP: 134/80 Pulse: 88 Resp: 20 Temp: 36.4 C (97.5 F) SpO2: 99% Allergies Allergen Reactions Amoxicillin-Pot Clavulanate Unknown Codeine Other Morphine Unknown Medication Documentation Review Audit Reviewed by Kathryn Up MA (Car [employer]roomer) on 05/07/24 at 0921 Medication Order Taking? Sig Documenting Provider Last Dose Status acetaminophen (Tylenol 8 HOUR) 650 mg ER tablet [id number] Yes Take 1 tablet (650 mg) by mouth every8 hours if needed for mild pain (1 - 3). Do not crush, chew, or split. Historical Provider, Taking Active albuterol 90 mcg/actuation inhaler [id number] Inhale 1-2 puffs every 4 hours if needed for wheezing or shortness of breath. Patient not taking: Reported on 05/07/2024 Shweta Brar APRN-PAPER REELER Active ALPRAZolam (Xanax) 0.25 mg tablet [id number] Yes Take 1 tablet (0.25 mg) by mouth 2 times a day as needed for anxiety. Jasmine Mathias MD Taking Active atorvastatin (Lipitor) 20 mg tablet [id number] Yes TAKE 1 TABLET EVERY DAY Jasmine Mathias MDActive benzonatate (Tessalon) 100 mg capsule [id number] Take 1-2 capsules (100-200 mg) by mouth every 8 hours if needed for cough. Do not crush or chew. Patient not taking: Reported on 05/07/2024 Jasmine Mathias MD Active cyclobenzaprine (Flexeril) 10 mg tablet [id number] Yes Take 1 tablet (10 mg) by mouth 3 times a day as needed for muscle spasms. Jasmine Mathias MD Taking Active diazePAM (Valium) 5 mg tablet [id number] Take 1 tablet (5 mg) by mouth 1 time for 1 dose. One hour before procedure. NEEDS A GRANULATING MACHINE OPERATOR TO AND FROM PROCEDURE Mauricio Mancilla PA-C 04/11/24 2359 ferrous sulfate 325 (65 Fe) MG EC tablet [id number] Yes Take 1 tablet by mouth every other day. Everyother day Historical Provider, Taking Active folic acid (Folvite) 1 mg tablet [id number] Yes As directed by Dr Chisholm Historical Provider, Taking Active furosemide (Lasix) 20 mg tablet [id number] Yes Take 1 tablet (20 mg) by mouth once daily. Jasmine Mathias MD Taking Active lisinopril 5 mg tablet [id number] Yes TAKE 1 TABLET EVERY DAY Jasmine Mathias MD Active meloxicam (Mobic) 15 mg tablet [id number] Yes Take 1 tablet (15 mg) by mouth once daily. Jasmine Hernandez MD Taking Active methotrexate (Trexall) 2.5 mg tablet [id number] Yes Take 8 tablets (20 mg total) by mouth 1 (one) time per week. Follow directions carefully, and ask to explain any part you do not understand. Take exactly as directed. Kilo Dietz, Taking Active nortriptyline (Pamelor) 25 mg capsule [id number] Yes TAKE 2 CAPSULES ONE TIME DAILY AT BEDTIME Jasmine Mathias MD Taking Active omeprazole (PriLOSEC) [address] capsule [id number] Yes TAKE 1 CAPSULE ONE TIME DAILY Jasmine Mathias MD Taking Active pregabalin (Lyrica) 225 mg capsule [id number] Yes Take 1 capsule (225 mg) by mouth 2 times a day. Mauricio Mancilla PA-C Active traMADol (Ultram) 50 mg tablet [id number] Yes Take 1 tablet (50 mg) by mouth every 8 hours if neededfor severe pain (7 - 10). Jasmine Mathias MD Taking Active Past Medical History: Diagnosis Date Encounter for other screening for malignant neoplasm of breast Screening for breast cancer Encounter for screening for malignant neoplasm of colon Screen for colon cancer Encounter for screening for osteoporosis Osteoporosis screening Osteopenia Osteoporosis Pain in unspecified hip 02/19/2020 Hip pain, acute Personal history of diseases of the blood and blood-forming organs and certain disorders involving the immune mechanism 11/21/2019 History of anemia Past Surgical History: Procedure Laterality Date BACK SURGERY CATARACT EXTRACTION Bilateral 2022 CERVICAL FUSION 2007 anterior cervical discectomy with fusion c5-6 IR INJECTION EPIDURAL STEROID 03/04/2023 C6-7 IR INJECTION EPIDURAL STEROID Bilateral 08/26/2023 L2-3 TFESI OTHER SURGICAL HISTORY 01/23/2019 Rosalva fundoplication laparoscopic OTHER SURGICAL HISTORY 01/23/2019 Hernia repair OTHER SURGICAL HISTORY 01/23/2019 Foot surgery OTHER SURGICAL HISTORY 01/23/2019 Back surgery OTHER SURGICAL HISTORY 01/23/2019 Rectocele repair OTHER SURGICAL HISTORY 01/23/2019 Total hysterectomy abdominal OTHER SURGICAL HISTORY 01/23/2019 Tonsillectomy OTHER SURGICAL HISTORY 01/23/2019 Appendectomy OTHER SURGICAL HISTORY 01/23/2019 Esophagogastroduodenoscopy OTHER SURGICAL HISTORY 01/23/2019 Salpingo-oophorectomy bilateral OTHER SURGICAL HISTORY 01/23/2019 Tubal ligation OTHER SURGICAL HISTORY 01/23/2019 Knee surgery OTHER SURGICAL HISTORY 08/15/2020 Epidural steroid injection OTHER SURGICAL HISTORY 05/02/2020 Epidural steroid injection OTHER SURGICAL HISTORY 04/29/2020 Hip replacement OTHER SURGICAL HISTORY 04/29/2020 Pelvic surgery ROS See HPI Physical Exam Vitals and nursing note reviewed. Constitutional: General: She is not in acute distress. Appearance: She is ill-appearing (mildly). She is not toxic-appearing. HENT: Head: Normocephalic and atraumatic. Right Ear: Tympanic membrane and ear canal normal. Left Ear: Tympanic membrane and ear canal normal. Nose: Congestion present. Mouth/Throat: Mouth: Mucous membranes are moist. Pharynx: Oropharynx is clear. Eyes: Extraocular Movements: Extraocular movements intact. Conjunctiva/sclera: Conjunctivae normal. Pupils: Pupils are equal, round, and reactive to light. Cardiovascular: Rate and Rhythm: Normal rate and regular rhythm. Pulmonary: Effort: Pulmonary effort is normal. Breath sounds: Normal breath sounds. Comments: Moist cough Lymphadenopathy: Cervical: Cervical adenopathy present. Skin: General: Skin is warm and dry. Neurological: General: No focal deficit present. Mental Status: She is alert and oriented to person, place, and time. Psychiatric: Mood and Affect: Mood normal. Behavior: Behavior normal. Recent Results (from the past hour) POCT SARS-COV-2/FLU/RSV PCR SYMPTOMATIC manually resulted Collection Time: 05/07/24 10:15 AM Result Value Ref Range POC Coronavirus 2018, PCR Not Detected Not Detected POC Flu A Result Not Detected Not Detected POC Flu B Result Not Detected Not Detected POC RSV PCR Not Detected Not Detected Assessment/Plan/MDM Narendra was seen today for uri. Diagnoses and all orders for this visit: Acute upper respiratory infection (Primary) - POCT SARS-COV-2/FLU/RSV PCR SYMPTOMATIC manually resulted Acute bronchitis, unspecified organism - azithromycin (Zithromax Z-Jessica) 250 mg tablet; Take 2 tablets (500 mg) on Day 1, followed by 1 tablet (250 mg) once daily on Days 2 through 5. - predniSONE (Deltasone) 20 mg tablet; Take 1 tablet (20 mg) by mouth once daily for 5 days. - albuterol 90 mcg/actuation inhaler; Inhale 2 puffs every 6 hours if needed for wheezing. - benzonatate (Tessalon) 200 mg capsule; Take 1 capsule (200 mg) by mouth 3 times a day as needed for cough for up to 7 days. Do not crush or chew. Encouraged pt to use otc cold remedies PRN, push PO fluids and rest. Patient's clinical presentation is otherwise unremarkable at this time. Patient is discharged with instructions to follow-up with primary care or seek emergency medical attention for worsening symptoms or any new concerns. I did personally review Narendra's past medical history, surgical history, social history, as well as family history (when relevant). In this case, I also oversaw the her drug management by reviewing her medication list, allergy list, as well as the medications that I prescribed during the UC course and/or recommended as an out-patient (including possible OTC medications such as acetaminophen, NSAIDs , etc). After reviewing the items above, I did look at previous medical documentation, such as recent hospitalizations, office visits, and/or recent consultations with PCP/specialist. SDOH: Another factor that I considered in Narendra's care was her Social Determinants of Health (SDOH). During this UC encounter, she did not have social determinants of health. Those SDOH influencing Narendra's care are: none Nena Aguilar CNP [facility] [phone] [facility] Work Phone: [phone] History of Present illness Narrative* Mauricio Mancilla PA-C - 04/11/2024 8:30 AM EST Subjective Patient ID: Narendra Arguelles is a 73 y.o. female who presents for Med Management (FOLLOW UP ON LYRICA, SHE TAKES FOR ONGOING FOR CHRONIC PAIN, SHE HAS PAIN THAT GOES DOWN FROM HER LOWER BACK DOWN TO HER FEET AT TIMES IN BOTH LEGS, THE FEELING IS A SHOOTING PAIN, THE TOPS OF HER THIGHS BURN IN THE MORNINGS WHEN SHE TRANSITIONS TO STANDING, SHE WILL AMBULATE WITH A CANE, ). IF SHE SITS TOO LONG OR STANDS TOO LONG SHE HAS PAIN AND NEEDS TO SIT, SHE USES HEATING PAD FOR RELIEF, SHE NOTES SHE WAS HAVING BOWEL ISSUES ON VACATION AND HAD PASSED OUT TWICE AND HAD FALLS , SHE WAS HOSPITALIZED, SHE STATES SHE WAS UTILIZING A WALKER OR SCOOTER TO GET AROUND, SHE HAD RIGHT LEG PAIN GOING UP TO THE RIGHT HIP AND RIGHT LOWER BACK, PAIN SCORE 4/10 TODAY, AT WORST 10/10, FABIANO=, COMM= DEP NO, FALLS YES, SMOKING NO La ChristiansonYUDI 04/11/24 8:03 AM Patient is a 73-year-old female. She has a past medical history significant for previous cervical fusion, neck pain, and cervical spondylosis. She also has a history of previous lumbar fusion, adjacent level lumbar stenosis and lumbar neuritis. Patient previously underwent bilateral L2-3 transforaminal epidural steroid injection that gave her significant but only short-lived relief. She has seen a surgeon. She had bone density testing that showed osteoporosis. She sees the surgeon did not recommend surgery because of this and they did not have anything else to offer to her. She was somewhat discouraged as she states they told her they did not even want to see her anymore. At this time, she is having lower back pain with right buttock pain and right radiating leg pain. She rates it a 4-10/10. The more she is up and active the worst the pain gets. This affects her ambulatory status and her quality of life. She is here today to discuss options for this as this is her rate limiting factor. She feels that her leg hurt and is painful and weak. For her cervical neuritis, most recently for her neck and radicular symptoms she underwent a C6/7 epidural steroid injection. This done on 03/04/2023 and gave her 85% relief. Her radicular symptoms are still improved. She is using Lyrica. 200 mg twice daily. She has not noticed much by the way of relief but does nothave any side effects. Previous gabapentin did not help. Anti-inflammatory medications have given some improvement but not enough. Review of Systems Constitutional: Negative. HENT: Negative. Eyes: Negative. Respiratory: Negative. Cardiovascular: Negative. Gastrointestinal: Negative. Endocrine: Negative. Genitourinary: Negative. Musculoskeletal: Positive for arthralgias, back pain, gait problem and myalgias. Skin: Negative. Allergic/Immunologic: Negative. Neurological: Positive for weakness and numbness. Hematological: Negative. Psychiatric/Behavioral: Negative. Objective Physical Exam Vitals and nursing note reviewed. Constitutional: General: She is not in acute distress. Appearance: Normal appearance. She is not ill-appearing. HENT: Head: Normocephalic and atraumatic. Right Ear: External ear normal. Left Ear: External ear normal. Nose: Nose normal. Mouth/Throat: Pharynx: Oropharynx is clear. Eyes: Conjunctiva/sclera: Conjunctivae normal. Cardiovascular: Rate and Rhythm: Normal rate and regular rhythm. Pulses: Normal pulses. Pulmonary: Effort: Pulmonary effort is normal. Breath sounds: Normal breath sounds. Musculoskeletal: General: Normal range of motion. Cervical back: Normal range of motion. Comments: 5/5 lower extremity strength other than right hip flexion 4/5 Skin: General: Skin is warm and dry. Neurological: General: No focal deficit present. Mental Status: She is alert and oriented to person, place, and time. Mental status is at baseline. Psychiatric: Mood and Affect: Mood normal. Behavior: Behavior normal. Thought Content: Thought content normal. Judgment: Judgment normal. MR lumbar spine wo IV contrast Status: Final result PACS Images Show images for MR lumbar spine wo IV contrast Signed by Signed Time Phone Pager Damari Gibson MD 07/27/2023 10:41 Exam Information Status Exam Begun Exam Ended Final 07/27/2023 07:15 07/27/2023 07:50 Study Result Narrative & Impression Interpreted By: Damari Gibson, STUDY: MR LUMBAR SPINE WO IV CONTRAST INDICATION: Signs/Symptoms:lower back and leg pain and legt fatigue. H/O fusion COMPARISON: Lumbar spine MRI 07/14/2018 ACCESSION NUMBER(S): [id number] ORDERING CLINICIAN: MAURICIO MANCILLA TECHNIQUE: Multiplanar multisequence MRI of the lumbar spine was performed without the administration of intravenous contrast, according to standard protocol. FINDINGS: ALIGNMENT: Stepwise retrolisthesis of T12 on L1 through L2 on L3. 4 mm grade 1 anterolisthesis of L5 on S1 . VERTEBRAE: Status post posterior decompression and fusion of L4-5 and L5-S1. DISCS: Multilevel disc desiccation. Moderate disc height loss from T12-L1 through L2-3. Mild disc height loss at L3-4. CONUS MEDULLARIS AND CAUDA EQUINA: The conus medullaris terminates at L1-2. Crowding of the cauda equina nerve roots at L2-3 secondary to degenerative change detailed further below. Remainder of the cauda equina nerve roots appear normal. PARAVERTEBRAL SOFT TISSUES AND VISUALIZED RETROPERITONEUM: The visualized paravertebral soft tissues appear within normal limits. EVALUATION OF INDIVIDUAL LEVELS: L1-2: Mild retrolisthesis with disc osteophyte complex asymmetric to the left and facet hypertrophy. Severe left foraminal stenosis and moderate right foraminal stenosis. There is mild narrowing of the spinal canal. L2-3: Retrolisthesis with disc osteophyte complex, facet hypertrophy, and infolding of ligamentum flavum. Severe narrowing of the spinal canal and bilateral foramina, [id number]. Crowding of the cauda equina nerve roots again noted. L3-4: Disc bulge with facet hypertrophy and infolding of ligamentum flavum resulting in moderate to severe bilateral foraminal stenosis and mild narrowing of the spinal canal. L4-5: Status post laminectomy. No canal or foraminal stenosis. L5-S1: Status post laminectomy and fusion. 4 mm grade 1 anterolisthesis uncovering of the posterior aspect of the disc and facet hypertrophy likely results in moderate bilateral foraminal stenosis though evaluation is limited given artifact from adjacent hardware. No canal stenosis. LIMITED EVALUATION OF UPPER SACRUM AND SACROILIAC JOINTS: Severe degenerative change of the left greater than right sacroiliac joints with fluid tracking within the left sacroiliac joint noted. Findings appear similar to previous MRI 07/14/2018. IMPRESSION: Status post laminectomy and fusion of L4-5 and L5-S1. Multilevel degenerative changes most prominent at L2-3 where there is severe narrowing of the spinal canal and bilateral foramina, right greater than left with crowding of the cauda equina nerve roots. There is also moderate to severe bilateral foraminal stenosis at L3-4. Findings appear grossly unchanged compared to previous MRI 07/14/2018. Signed by: Damari Gibson 07/27/2023 10:41 AM Dictation workstation: [id number] Assessment/Plan Diagnoses and all orders for this visit: Lumbosacral radiculopathy - diazePAM (Valium) 5 mg tablet; Take 1 tablet (5 mg) by mouth 1 time for 1 dose. One hour before procedure. NEEDS A GRANULATING MACHINE OPERATOR TO AND FROM PROCEDURE - pregabalin (Lyrica) 225 mg capsule; Take 1 capsule (225 mg) by mouth 2 times a day. - Transforaminal; Future - FL pain management; Future H/O arthrodesis Neurogenic claudication due to lumbar spinal stenosis Other orders - NPO Diet Except: Sips with meds; Effective now; Standing - Height and weight; Standing - Insert and maintain peripheral IV; Standing - Saline lock IV; Standing - Type And Screen; Standing - Inpatient consult to Respiratory Care; Standing - Adult diet Regular; Standing - Vital Signs; Standing - Notify physician - Standard Parameters; Standing - Continue IV fluids ordered pre-procedure; Standing - Prior to Discharge O2 Weaning; Standing - Pulse oximetry, continuous; Standing - Discharge patient; Standing - iohexol (OMNIPaque) 300 mg iodine/mL solution 6 mL - lidocaine PF (Xylocaine) 20 mg/mL (2 %) injection 120 mg - lidocaine PF (Xylocaine) 20 mg/mL (2 %) injection 20 mg - sodium chloride (PF) 0.9% solution 1 mL - dexAMETHasone (PF) (Decadron) injection 10 mg Patient is a 73-year-old female with the above-mentioned medical diagnoses following up today to once again discuss her right radiating leg pain. This affects her ambulatory status. This affects her quality life. This affects her activities and affects her ability to do things she wants to do. At this time, based on her imaging findings, her pain pattern and her failure to improve with conservative treatments I recommended a right sided L2-3 and L3-4 transforaminal epidural steroid injection martir done under fluoroscopy for both diagnostic and therapeutic purposes. She has a history of injection at the L2-3 level only but it only gave short-lived relief. We reviewed the MRI and based on themoderate to severe foraminal stenosis that she has at both levels I feel that doing both may give longer-term relief. She will pursue this injection and follow-up 2 weeks after. In the meantime, we will also give her information about spinal cord stimulator. She is going to look into this and write down any questions that she has. In the meantime we will also have her increase her Lyrica. She is going to go to 225 mg twice daily. OARRS reviewed. Prescription sent. But no side effects were discussed. Follow-up as above mentioned. documented in this [facility] Work Phone: [phone]) 637-381201-08-2025 Angle Arguelles 1950 CC: 73 y.o. is a she with right hip pain. Chief Complaint Patient presents with Right Hip - Pain . HPI: Hip Pain Patient presents to the office today with right hip pain. She has had that right hip replaced. She denies any injury to the hip. Her pain is located in the lower back and radiates into the right posterior buttock. She isn't having any pain in the groin or down the front of the thigh. Her pain is worse when she is standing for long periods of time or walking for any length of time. She is cleaning her latter-day and has to take frequent breaks while doing so. She has tramadol that she does take when needed. She has been seen by multiple physicians in regards to her back but she feels as though she hasn't received any answers or help. She is becoming very limited as to what she can do on a day to day basis. She wants to continue to be active but ends up in pain throughout the day. She also has a history of RA. The patient's past medical history, surgical history, social history, family history, medications and allergies were reviewed with the patient today and are available in the chart for further review. PMH: Allergies Allergen Reactions Amoxicillin-Pot Clavulanate Unknown Codeine Other (See Comments) Other reaction(s): Upset stomach and cramps Morphine Unknown Chest pain felt like having a heart attack Current Outpatient Medications: ALPRAZolam (XANAX) 0.25 MG tablet, Take 1 (one) tablet (0.25 mg total) by mouth 2 (two) times a day as needed for sleep ., Disp: , Rfl: apixaban (Eliquis) 2.5 mg Tab, Take 1 (one) tablet (2.5 mg total) by mouth 2 (two) times a day ., Disp: 60 tablet, Rfl: 0 atorvastatin (LIPITOR) 20 MG tablet, Take 1 (one) tablet (20 mg total) by mouth daily AM ., Disp: , Rfl: cyclobenzaprine (FLEXERIL) 10 MG tablet, Take 0.5 Unspecified by mouth PRN ., Disp: , Rfl: ferrous sulfate 325 (65 FE) MG EC tablet, Take 1 Unspecified by mouth daily AFTERNOON ., Disp: , Rfl: folic acid (FOLVITE) 1 MG tablet, Take by mouth AFTERNOON ., Disp: , Rfl: gabapentin (NEURONTIN) 300 MG capsule, Take 2 (two) capsules (600 mg total) by mouth 3 (three) times a day ., Disp: , Rfl: leucovorin (WELLCOVORIN) 15 MG tablet, Take 1 (one) tablet (15 mg total) by mouth Once a week as needed ., Disp: , Rfl: lisinopril (PRINIVIL,ZESTRIL) 5 MG tablet, Take 1 (one) tablet (5 mg total) by mouth daily AM ., Disp: , Rfl: methotrexate (TREXALL) 2.5 MG tablet, Take 1 (one) tablet (2.5 mg total) by mouth once a week Takes on Tuesday AM ., Disp: , Rfl: naloxone (NARCAN) 4 mg/actuation [place], Administer 1 spray into one nostril for known or suspected opioid overdose. If patient worsens or does not respond, may repeat in 2-3 minutes. ., Disp: 2 each, Rfl: 0 nortriptyline (PAMELOR) 25 MG capsule, Take 2 (two) capsules (50 mg total) by mouth nightly Reasons: take 2 tabs at bedtime., Disp: , Rfl: omeprazole (PRILOSEC) 40 MG capsule, Take by mouth daily ., Disp: , Rfl: ondansetron (Zofran) 4 MG tablet, Take 1 (one) tablet (4 mg total) by mouth every 6 (six) hours as needed for nausea . (Patient not taking: Reported on 01/20/2023 .), Disp: 28 tablet, Rfl: 1 No current facility-administered medications for this visit. Past Medical History: Diagnosis Date Anemia Anxiety Arthritis GERD (gastroesophageal reflux disease) Hiatal hernia 08/16/2017 Hill grade IV, moderate sized type III paraesophageal History of blood transfusion Hyperlipidemia Hypertension Obesity Osteoporosis Rheumatoid arthritis (HCC) Past Surgical History: Procedure Laterality Date APPENDECTOMY ARTHRODESIS METATARSAL PHALANGE Left 01/05/2023 Procedure: ARTHRODESIS 1ST METATARSAL PHALANGEal joint left; Surgeon: Roderick Jeter DPM; [place] [facility] Service: Podiatry ARTHROSCOPY KNEE Left BACK SURGERY CHOLECYSTECTOMY COLONOSCOPY 01/28/2015 EGD N/A 12/21/2021 Procedure: ESOPHAGOGASTRODUODENOSCOPY WITH BIOPSY AND BALLOON DILATION.; Surgeon: Delvis Moncada MD; Location: [facility]; Service: General Surgery ESOPHAGEAL MANOMETRY 08/16/2017 ESOPHAGOGASTRODUODENOSCOPY 01/28/2017 Dr. Cabrera ESOPHAGOGASTRODUODENOSCOPY 08/16/2017 with biopsies...Dr. Moncada ESOPHAGOGASTRODUODENOSCOPY 11/15/2017 [facility] 3D brush biopsy, Type 3 hernia....Dr Moncada foot spurs Bilateral HERNIA REPAIR HIATAL LAPAROSCOPIC 03/13/2018 [facility] HIP FRACTURE SURGERY Right Dr Hernández HYSTERECTOMY with BSO LUMBAR FUSION MANDIBLE SURGERY ROSALVA FUNDOPLICATION 03/13/2018 [facility] ROSALVA FUNDOPLICATION ROBOT ASSISTED N/A 02/15/2022 Procedure: REDO HIATAL HERNIA REPAIR WITH MESH AND REVISION OF ROSALVA FUNDOPLICATION to Sp[facility] ROBOTIC XI; Surgeon: Delvis Moncada MD; Location: [facility] OR; Service: Gen-Robotics OPEN REDUCTION INTERNAL FIXATION FOOT Left 01/05/2023 Procedure: OPEN REDUCTION INTERNAL pin fixation of dislocated 2nd hammer toe left; Surgeon: Dionne Jeter (more content not included)...[facility]01-08-2025 History of Present illness Narrative* Jordan Espinoza, PAPER REELER - 04/04/2024 4:00 PM EST Narendra Arguelles 1950 CC: 73 y.o. is a she with right hip pain. Chief Complaint Patient presents with Right Hip - Pain . HPI: Hip Pain Patient presents to the office today with right hip pain. She has had that right hip replaced. She denies any injury to the hip. Her pain is located in the lower back and radiates into the right posterior buttock. She isn't having any pain in the groin or down the front of the thigh. Her pain is worse when she is standing for long periods of time or walking for any length of time. She is cleaning her latter-day and has to take frequent breaks while doing so. She has tramadol that she does take when needed. She has been seen by multiple physicians in regards to her back but she feelsas though she hasn't received any answers or help. She is becoming very limited as to what she can do on a day to day basis. She wants to continue to be active but ends up in pain throughout the day.She also has a history of RA. The patient's past medical history, surgical history, social history, family history, medications and allergies were reviewed with the patient today and are available in the chart for further review. PMH: Allergies Allergen Reactions Amoxicillin-Pot Clavulanate Unknown Codeine Other (See Comments) Other reaction(s): Upset stomach and cramps Morphine Unknown Chest pain felt like having a heart attack Current Outpatient Medications: ALPRAZolam (XANAX) 0.25 MG tablet, Take 1 (one) tablet (0.25 mg total) by mouth 2 (two) times a dayas needed for sleep ., Disp: , Rfl: apixaban (Eliquis) 2.5 mg Tab, Take 1 (one) tablet (2.5 mg total) by mouth 2 (two) times a day ., Disp: 60 tablet, Rfl: 0 atorvastatin (LIPITOR) 20 MG tablet, Take 1 (one) tablet (20 mg total) by mouth daily AM ., Disp: ,Rfl: cyclobenzaprine (FLEXERIL) 10 MG tablet, Take 0.5 Unspecified by mouth PRN ., Disp: , Rfl: ferrous sulfate 325 (65 FE) MG EC tablet, Take 1 Unspecified by mouth daily AFTERNOON ., Disp: , Rfl: folic acid (FOLVITE) 1 MG tablet, Take by mouth AFTERNOON ., Disp: , Rfl: gabapentin (NEURONTIN) 300 MG capsule, Take 2 (two) capsules (600 mg total) by mouth 3 (three) times a day ., Disp: , Rfl: leucovorin (WELLCOVORIN) 15 MG tablet, Take 1 (one) tablet (15 mg total) by mouth Once a week as needed ., Disp: , Rfl: lisinopril (PRINIVIL,ZESTRIL) 5 MG tablet, Take 1 (one) tablet (5 mg total) by mouth daily AM ., Disp: , Rfl: methotrexate (TREXALL) 2.5 MG tablet, Take 1 (one) tablet (2.5 mg total) by mouth once a week Takeson Tuesday AM ., Disp: , Rfl: naloxone (NARCAN) 4 mg/actuation [place], Administer 1 spray into one nostril for known or suspected opioid overdose. If patient worsens or does not respond, may repeat in 2-3 minutes. ., Disp: 2 each, Rfl: 0 nortriptyline (PAMELOR) 25 MG capsule, Take 2 (two) capsules (50 mg total) by mouth nightly Reasons: take 2 tabs at bedtime., Disp: , Rfl: omeprazole (PRILOSEC) 40 MG capsule, Take by mouth daily ., Disp: , Rfl: ondansetron (Zofran) 4 MG tablet, Take 1 (one) tablet (4 mg total) by mouth every 6 (six) hours as needed for nausea . (Patient not taking: Reported on 01/20/2023 .), Disp: 28 tablet, Rfl: 1 No current facility-administered medications for this visit. Past Medical History: Diagnosis Date Anemia Anxiety Arthritis GERD (gastroesophageal reflux disease) Hiatal hernia 08/16/2017 Hill grade IV, moderate sized type III paraesophageal History of blood transfusion Hyperlipidemia Hypertension Obesity Osteoporosis Rheumatoid arthritis (HCC) Past Surgical History: Procedure Laterality Date APPENDECTOMY ARTHRODESIS METATARSAL PHALANGE Left 01/05/2023 Procedure: ARTHRODESIS 1ST METATARSAL PHALANGEal joint left; Surgeon: Roderick Jeter DPM;[place] [facility] Service: Podiatry ARTHROSCOPY KNEE Left BACK SURGERY CHOLECYSTECTOMY COLONOSCOPY 01/28/2015 EGD N/A 12/21/2021 Procedure: ESOPHAGOGASTRODUODENOSCOPY WITH BIOPSY AND BALLOON DILATION.; Surgeon: Delvis Moncada MD; Location: [facility]; Service: General Surgery ESOPHAGEAL MANOMETRY 08/16/2017 ESOPHAGOGASTRODUODENOSCOPY 01/28/2017 Dr. Cabrera ESOPHAGOGASTRODUODENOSCOPY 08/16/2017 with biopsies...Dr. Moncada ESOPHAGOGASTRODUODENOSCOPY 11/15/2017 [facility] 3D brush biopsy, Type 3 hernia....Dr Moncada foot spurs Bilateral HERNIA REPAIR HIATAL LAPAROSCOPIC 03/13/2018 [facility] HIP FRACTURE SURGERY Right Dr Hernández HYSTERECTOMY with BSO LUMBAR FUSION MANDIBLE SURGERY ROSALVA FUNDOPLICATION 03/13/2018 [facility] ROSALVA FUNDOPLICATION ROBOT ASSISTED N/A 02/15/2022 Procedure: REDO HIATAL HERNIA REPAIR WITH MESH AND REVISION OF ROSALVA FUNDOPLICATION to Spence ROBOTIC XI; Surgeon: Delvis Moncada MD; Location: [facility] OR; Service: Gen-Robotics OPEN REDUCTION INTERNAL FIXATION FOOT Left 01/05/2023 Procedure: OPEN REDUCTION INTERNAL pin fixation of dislocated 2nd hammer toe left; Surgeon: Roderick Jeter DPM; [place] [facility]; Service: Podiatry POSTERIOR REPAIR OF RECTOCELE 2002 SHOULDER ARTHROSCOPY Bilateral TONSILLECTOMY TUBAL LIGATION US BIOPSY LYMPH NODE LEFT Social History Socioeconomic History Marital status: Tobacco Use Smoking status: Never Smokeless tobacco: Never Vaping Use Vaping status: Never Used Substance and Sexual Activity Alcohol use: No Alcohol/week: 0.0 standard drinks of alcohol Drug use: No Social Drivers of Health Food Insecurity: Low Risk (03/05/2024) Received from [facility] Food Security Within the past 12 months, the food you bought just didn't last and you didn't have money to get more.: 3 Within the past 12 months, you worried that your food would run out before you got money to buy more.: 3 Transportation Needs: Not At Risk (03/06/2024) Received from [facility] Transportation Needs In the past 12 months, has lack of reliable transportation kept you from medical appointments, meetings, work or from getting things needed for daily living?: No Housing Stability: Not At Risk (03/05/2024) Received from [facility] Housing What is your living situation today?: I have a steady place to live Think about the place you live. Do you have problems with any of the following?: None of the above ROS: Review of Systems Constitutional: Negative for activity change and fatigue. HENT: Negative for congestion, hearing loss and trouble swallowing. Eyes: Negative for visual disturbance. Respiratory: Negative for chest tightness and shortness of breath. Cardiovascular: Negative for chest pain and palpitations. Gastrointestinal: Negative for abdominal pain, diarrhea, nausea and vomiting. Endocrine: Negative for polydipsia, polyphagia and polyuria. Genitourinary: Negative for decreased urine volume, difficulty urinating and hematuria. Musculoskeletal: Positive for arthralgias, back pain, gait problem and myalgias. Negative for jointswelling. Skin: Negative for color change, rash and wound. Allergic/Immunologic: Negative for immunocompromised state. Neurological: Negative for dizziness, weakness, light-headedness and numbness. Hematological: Does not bruise/bleed easily. Psychiatric/Behavioral: Negative for confusion and sleep disturbance. The patient is not nervous/anxious. PE: Physical Exam Constitutional: Appearance: She is well-developed. HENT: Head: Normocephalic. Eyes: Pupils: Pupils are equal, round, and reactive to light. Cardiovascular: Rate and Rhythm: Normal rate and regular rhythm. Pulmonary: Effort: Pulmonary effort is normal. Breath sounds: Normal breath sounds. Abdominal: General: Bowel sounds are normal. Palpations: Abdomen is soft. Musculoskeletal: General: Tenderness present. No swelling, deformity or signs of injury. Cervical back: Normal range of motion and neck supple. Lumbar back: Tenderness present. No edema. Decreased range of motion. Positive right straight leg raise test. Skin: General: Skin is warm and dry. Neurological: Mental Status: She is alert and oriented to person, place, and time. ORTHO: Right Hip Exam Tenderness The patient is experiencing tenderness in the posterior and lateral. Range of Motion External rotation: 50 Internal rotation: 25 Muscle Strength Abduction: 4/5 Adduction: 4/5 Flexion: 3/5 Other Erythema: absent Scars: present Sensation: normal Pulse: present Comments: +straight leg raise Back Exam Tests Straight leg raise right: positive Imaging: R Hip: No acute fracture or dislocation. Total right hip arthroplasty in good position without evidence of hardware complications or loosening. MRI Lumbar spine from 07/27/23: Status post laminectomy and fusion of L4-5 and L5- S1. Multilevel degenerative changes most prominent at L2-3 where there is severe narrowing of the spinal canal and bilateral foramina, right greater than left with crowding of the cauda equina nerve roots. There is alsomoderate to severe bilateral foraminal stenosis at L3-4. Assessment/Plan: After examination and reviewing of the patient x-ray images, we discussed continued treatment options. The right hip looks great in regards to the prosthesis. For the lumbar spine, Ciro going to send her over to seen pain management to discuss further treatment options they can offer her. I encouraged her to use the pain medications when needed. I am more than happy to see this ricky lady back in the office as needed. Diagnosis: Problem List Items Addressed This Visit None Visit Diagnoses Degeneration of intervertebral disc of lumbar region, unspecified whether pain present - Primary Degeneration of intervertebral disc of lumbar region with discogenic back pain and lower extremity pain Relevant Orders Ambulatory referral to Pain Medicine Follow Up: documented in this [id number] History of Present illness Narrative* Jasmine Mathias MD - 03/12/2024 11:00 AM EST Patient: Narendra Arguelles : 1950 PCP: Jasmine Mathias MD Program: Transitional Care Management Status: Enrolled Effective Dates: 03/07/2024 - present Responsible Staff: Della You RN Social Drivers to be Addressed: Alcohol Use, Financial Resource Strain, Physical Activity, Social Connections, Stress, Tobacco Use, Transportation Needs Narendra Arguelles is a 73 y.o. female presenting today for follow-up after being discharged from [facility] days ago. The main problem requiring admission was syncopal episode. The discharge summary and/or Transitional Care Management documentation was reviewed. Medication reconciliation was performed as indicated via the [facility] as Reviewed timestamp. Narendra Arguelles was contacted by Transitional Care Management services two days after her discharge. This encounter and supporting documentation was reviewed. Here for follow up recent hospitalization in [place] for syncopal episode with some right sided weakness. She states that she had been having issues with her bowels because she was taking the iron for heranemia. She had woke up and was having abdominal discomfort and thought she had to use the bathroom, she got up and sat down at the table and woke up on the floor, she did come to and went to the bathroom and had diarrhea and passed out again. She got up and went to dinner and a show - had some right hip/leg pain and was feeling woozy and so she went to the hospital then. She has had no further passing out episodes. She has stopped the iron. Her testing was all basically ok, she had CT, MRI, carotid dopplers, xrays. No issues with chest discomfort, shortness of breath, palpitations. BP 126/78 Pulse 96 Ht 1.549 m (5' 1) Wt 93.9 kg (207 lb) SpO2 96% BMI 39.11 kg/m Physical Exam Vitals reviewed. Constitutional: General: She is not in acute distress. Cardiovascular: Rate and Rhythm: Normal rate and regular rhythm. Heart sounds: No murmur heard. Pulmonary: Effort: Pulmonary effort is normal. No respiratory distress. Breath sounds: Normal breath sounds. Skin: General: Skin is warm and dry. Neurological: General: No focal deficit present. Mental Status: She is alert. Mental status is at baseline. The complexity of medical decision making for this patient's transitional care is high. Assessment/Plan Problem List Items Addressed This Visit None Visit Diagnoses Codes Syncope, unspecified syncope type - Primary R55 [facility] 1(128) 216-351212-16-2024 Instructions* Patient Instructions* Jasmine Mathias MD - 03/12/2024 11:00 AM EST Will continue current medications and monitor, as she is feeling better no further testing at this time. [facility] Work Phone: 1([phone]) 777-556011-22-2024 History of Present illness Narrative* Emiliano Rocha - 02/17/2024 8:30 AM EST Nurse Note: Review of Systems Cardiovascular: Negative for chest pain and palpitations. Gastrointestinal: Negative for nausea and vomiting. Musculoskeletal: Positive for back pain and neck pain. Neurological: Positive for numbness (a little in fingers- not bad. Muscle Back Pain. Spine is squeezed off). Nursing Assessment: Physical Exam * Mary Carmen Tovar MD - 02/17/2024 8:30 AM EST History of Present Illness osteoporosis: This is a follow up visit to the office. She has a history of a spontaneous hip fracture approximately 2011. Approximately 2013, developed bilateral spontaneous pelvic fractures. No parental history of hip fracture. No history of nephrolithiasis. Patient was started on Forteo, she took the agent for 8 months, she was then switched to Medicare and the agent was unaffordable. Afterwards, for awhile was prescribed nasal calcitonin, Fosamax for short period of time with gastric upset and major gastric issues. Current Vitamin D level of 44 ng/mL. Normal renal function and calcium levels. she received her first dose of Reclast in January 2018 and again in 2018, 2019, 2020, and 2021. Left femur T-score =-2.0, left femoral neck T-score =-2.8, forearm T-score = -2.2. Patient suffered a foot fracture 2022, director of field sales said her bones appeared to be very brittle in thefoot. Additionally, she has neck hardware which is deteriorating and coming apart from bone. She received Reclast in April of 2023. Multinodular goiter: It appears there is a history of a partial thyroidectomy for a large nodule. Thyroid levels are perfect. Neck ultrasound performed in fall of 2018 demonstrated a normal right thyroid lobe, left lobe and isthmus surgically absent. Objective Review of Systems Nurse Note: Review of Systems Cardiovascular: Negative for chest pain and palpitations. Gastrointestinal: Negative for nausea and vomiting. Musculoskeletal: Positive for back pain and neck pain. Neurological: Positive for numbness (a little in fingers- not bad. Muscle Back Pain. Spine is squeezed off). Nursing Assessment: Physical Exam Vitals: Blood pressure 126/82, pulse 86, resp. rate 16, height 1.54 m (5' 0.63), weight 93.7 kg (206 lb 9.6 oz). Physical Exam Constitutional: General: She is not in acute distress. Appearance: She is not diaphoretic. Comments: Currently in wheelchair with left foot in boot HENT: Head: Normocephalic. Neck: Comments: Necklace scar Cardiovascular: Rate and Rhythm: Normal rate. Pulmonary: Effort: Pulmonary effort is normal. No respiratory distress. Skin: General: Skin is warm and dry. Neurological: Mental Status: She is alert and oriented to person, place, and time. Psychiatric: Judgment: Judgment normal. Neurological Exam Mental Status Alert. Oriented to person, place, and time. Assessment and Plan Osteoporosis: Anabolic agents were not covered/not affordable, she will be due for her another doseof Reclast in April of 2025. She will get dental clearance, then we will order. Multinodular goiter: No need for further ultrasonography unless a palpable abnormality is noted. documented in this [facility]11-04-2024 History of Present illness Narrative* Florencia Hwang MA - 01/30/2024 4:00 PM EST Subjective Patient ID: Narendra Arguelles is a 73 y.o. female who presents for pain in right leg. Patient is unable to get up from the toilet. Patient states they can't sit on anything hard or they can't get up. Patient states they are doing water therapy for their back. Patient also still has a cough. It hasn't gotten any better. Patient would like a refill on Tesslon HPI Review of Systems Objective There were no vitals taken for this visit. Physical Exam Assessment/Plan * Jasmine Mathias MD - 01/30/2024 4:00 PM EST Subjective Narendra Arguelles is a 73 y.o. female who presents for No chief complaint on file.. Here with persistent cough, congestion. She is also having issues with pain in her right leg/buttock. Having a hard time rising from a sitting position. She is going to water therapy. The pain does not radiate down the leg. Objective Visit Vitals BP 118/80 (BP Location: Left arm, Patient Position: Sitting, BP Cuff Size: Adult) Pulse 104 Physical Exam Vitals reviewed. Constitutional: General: She is not in acute distress. Cardiovascular: Rate and Rhythm: Normal rate and regular rhythm. Heart sounds: No murmur heard. Pulmonary: Effort: Pulmonary effort is normal. No respiratory distress. Breath sounds: Normal breath sounds. Musculoskeletal: Comments: Decreased ROM of right hip due to pain. Skin: General: Skin is warm and dry. Neurological: General: No focal deficit present. Mental Status: She is alert. Mental status is at baseline. Assessment/Plan Problem List Items Addressed This Visit 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HHS-HCC) - Primary Relevant Orders CT pelvis wo IV contrast CT hip right wo IV contrast Other Visit Diagnoses Pain of right hip Relevant Medications predniSONE (Deltasone) 20 mg tablet Other Relevant Orders CT pelvis wo IV contrast CT hip right wo IV contrast Viral URI with cough Relevant Medications benzonatate (Tessalon) 100 mg capsule predniSONE (Deltasone) 20 mg tablet Jasmine Mathias MD documented [facility] Work Phone: 1([phone]) 348-871111-04-2024 Instructions* Patient Instructions* Jasmine Mathias MD - 01/30/2024 4:00 PM EST Given the severity of her symptoms and her history of pelvic bone fractures in the past we will getCT to evaluate for fracture not seen on her Xray. Will treat with a short course of prednisone for both the pain and the cough. Follow up based on results and symptoms. documented [facility]Day[facility] Work Phone: 1(702) 839-222610-04-2024 History of Present illness Narrative* ELIZABETH Izaguirre - 12/30/2023 10:00 AM EDT [facility] ELIZABETH Izaguirre Visit Note - 12/30/2023 10:09 AM This note was generated with voice recognition software and may contain errors including spelling, grammar, syntax, and misrecognization of what was dictated. Patient: Narendra Arugelles, , 73 y.o., female PCP: Jasmine Mathias MD ALLERGIES: Allergies Allergen Reactions Amoxicillin-Pot Clavulanate Unknown Codeine Other Morphine Unknown CURRENT MEDICATIONS: Current Outpatient Medications Medication Instructions acetaminophen (TYLENOL 8 HOUR) 650 mg, oral, Every 8 hours PRN, Do not crush, chew, or split. albuterol 90 mcg/actuation inhaler 1-2 puffs, inhalation, Every 4 hours PRN ALPRAZolam (XANAX) 0.25 mg, oral, 2 times daily PRN atorvastatin (LIPITOR) 20 mg, oral, Daily azithromycin (Zithromax Z-Jessica) 250 mg tablet Take 2 tablets by mouth at once on day 1, then 1 tablet once a day on days 2-5. Take with a meal. benzonatate (TESSALON) 100-200 mg, oral, Every 8 hours PRN, Do not crush or chew. cyclobenzaprine (FLEXERIL) 10 mg, oral, 3 times daily PRN ferrous sulfate 325 (65 Fe) MG EC tablet 1 tablet, oral, Every other day, Every other day folic acid (Folvite) 1 mg tablet As directed by Dr Chisholm furosemide (LASIX) 20 mg, oral, Daily lisinopril 5 mg, oral, Daily meloxicam (MOBIC) 15 mg, oral, Daily methotrexate (TREXALL) 20 mg, oral, Once Weekly, Follow directions carefully, and ask to explain any part you do not understand. Take exactly as directed. nortriptyline (Pamelor) 25 mg capsule TAKE 2 CAPSULES ONE TIME DAILY AT BEDTIME omeprazole (PRILOSEC) 40 mg, oral, Daily pregabalin (LYRICA) 150 mg, oral, 2 times daily traMADol (ULTRAM) 50 mg, oral, Every 8 hours PRN PAST MEDICAL HX: Patient Active Problem List Diagnosis Degenerative disc disease, lumbar Anxiety Chronic pain Edema GERD (gastroesophageal reflux disease) HTN (hypertension) Hypercholesteremia Neurogenic claudication due to lumbar spinal stenosis Osteoporosis Primary generalized (osteo)arthritis Rheumatoid arthritis Class 2 severe obesity with serious comorbidity and body mass index (BMI) of 35.0 to 35.9 in adult Osteopenia Arm weakness Cervical neuritis H/O arthrodesis Imbalance Lumbosacral radiculopathy Lumbosacral spondylosis 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[facility]) Sciatica SURGICAL HX: Past Surgical History: Procedure Laterality Date BACK SURGERY CATARACT EXTRACTION Bilateral 2022 CERVICAL FUSION 2007 anterior cervical discectomy with fusion c5-6 IR INJECTION EPIDURAL STEROID 03/04/2023 C6-7 IR INJECTION EPIDURAL STEROID Bilateral 08/26/2023 L2-3 TFESI OTHER SURGICAL HISTORY 01/23/2019 Rosalva fundoplication laparoscopic OTHER SURGICAL HISTORY 01/23/2019 Hernia repair OTHER SURGICAL HISTORY 01/23/2019 Foot surgery OTHER SURGICAL HISTORY 01/23/2019 Back surgery OTHER SURGICAL HISTORY 01/23/2019 Rectocele repair OTHER SURGICAL HISTORY 01/23/2019 Total hysterectomy abdominal OTHER SURGICAL HISTORY 01/23/2019 Tonsillectomy OTHER SURGICAL HISTORY 01/23/2019 Appendectomy OTHER SURGICAL HISTORY 01/23/2019 Esophagogastroduodenoscopy OTHER SURGICAL HISTORY 01/23/2019 Salpingo-oophorectomy bilateral OTHER SURGICAL HISTORY 01/23/2019 Tubal ligation OTHER SURGICAL HISTORY 01/23/2019 Knee surgery OTHER SURGICAL HISTORY 08/15/2020 Epidural steroid injection OTHER SURGICAL HISTORY 05/02/2020 Epidural steroid injection OTHER SURGICAL HISTORY 04/29/2020 Hip replacement OTHER SURGICAL HISTORY 04/29/2020 Pelvic surgery FAMILY HX: No pertinent history. SOCIAL HX: reports that she has never smoked. She has been exposed to tobacco smoke. She has never used smokeless tobacco. CHIEF COMPLAINT: Chief Complaint Patient presents with URI Sinus pressure, runny nose, cough, congestion x 2 days HISTORY OF PRESENT ILLNESS: The history was obtained from patient. Narendra is a 73 y.o. female, who presents with a chief complaint of headaches, sinus pressure/congestion (yellow mucus), a productive cough (yellow phlegm), and fatigue - sxs started on Tuesday. Reports she also had diarrhea at onset but this has resolved. Denies any fever/chills, body aches, sore throat, ear pain, abdominal pain,chest pain, wheezing/shortness of breath, rashes, urinary symptoms, and nausea/vomiting. Denies anylightheadedness or dizziness; no changes in mental status. No swelling in legs. Appetite is decreased ; is able to eat and drink fluids without difficulty; denies loss of sense of taste or smell. Reports symptoms have gotten worse since onset. Has been taking Mucinex DM and an OTC cough syrup without much relief; no other [id number] medications or home remedies for symptom management. Her is currently ill with similar sxs; no other known ill contacts. Has received the COVID vaccine x 3; Has not received this season's influenza vaccine. Last known COVID infection was in 2021. Is not a smoker. No known history of asthma/COPD/respiratory issues. REVIEW OF SYSTEMS: 10 systems reviewed negative with exception of history of present illness as listed above. TODAY'S VITALS: BP 128/82 Pulse 79 Temp 36.6 C (97.8 F) Resp 14 Ht 1.549 m (5' 1) Wt 90.7 kg (200 lb) SpO2 98% BMI 37.79 kg/m PHYSICAL EXAMINATION: General: Mildly ill-appearing, well nourished older female; alert and oriented; in no acute distress. Sitting comfortably on exam table. Non-dyspneic. Eyes: Pupils equal, round and reactive to light. No conjunctival erythema; no scleral icterus. HENT: + mild frontal sinus tenderness; + audible nasal congestion. Airway patent, TMs and ear canals clear/unremarkable bilaterally. Nasal mucosa mildly injected and edematous. Oral mucosa moist. Posterior pharynx mildly injected but without vesicles or oropharyngeal exudate. Uvula is midline. Managing oral secretions without difficulty. Neck: Supple. Mildly tender, mobile anterior cervical lymphadenopathy bilat. Trachea is midline. Respiratory: Respirations easy and unlabored, Breath sounds equal. Lungs are clear to auscultation;no wheezes, rhonchi, or rales; has good air movement throughout. + semi-productive cough noted. Non-dyspneic with ambulation; able to maintain SpO2. Cardiovascular: Normal rate, Regular rhythm. Normal S1S2. No m/r/g. No peripheral edema. Gastrointestinal: Soft, non-tender, non-distended; no palpable masses or organomegaly. Bowel soundsnormoactive. Musculoskeletal: Grossly normal; appropriate for age. Integumentary: August, warm, dry, and intact. No rashes or skin discoloration appreciated. Good skin turgor. Neurologic: Alert and oriented, no gross deficits. Cognition and Speech: Oriented, Speech clear and coherent. Psychiatric: Cooperative, Appropriate mood & affect. Medical Decision Making LABORATORY or RADIOLOGICAL IMAGING ORDERS/RESULTS: COVID PCR: results pending. IMPRESSION/PLAN: Course: Worsening; stable 1. Acute frontal sinusitis, recurrence not specified 2. Viral URI with cough - POCT SARS-COV-2 PCR manually resulted - albuterol 90 mcg/actuation inhaler; Inhale 1-2 puffs every 4 hours if needed for wheezing or shortness of breath. Dispense: 8.5 g; Refill: 0 - benzonatate (Tessalon) 100 mg capsule; Take 1-2 capsules (100-200 mg) by mouth every 8 hours if needed for cough. Do not crush or chew. Dispense: 60 capsule; Refill: 0 - azithromycin (Zithromax Z-Jessica) 250 mg tablet; Take 2 tablets by mouth at once on day 1, then 1 tablet once a day on days 2-5. Take with a meal. Dispense: 6 tablet; Refill: 0 No red flags on exam today. Symptoms consistent with viral URI/sinusitis, but reviewed other potential etiologies, and nasal swab obtained (using proper PPE) for COVID-19 testing to err on the side of caution. No antibiotics indicated at this point, but rx for watch and wait antibiotic (Zithromax) provided, per pt's request, with instructions to begin only if COVID test is negative AND if symptoms not improving over the next few days. In the meantime, encouraged conservative measures- instructed to push fluids, rest, and to use appropriate over the counter medications as needed for management of symptoms. Will start benzonatate and will refill albuterol inhaler for PRN use. Advised can review test results on the portal and office will contact pt within the next 24-48 hours. Reviewed instructions for self-isolation and continued monitoring. Reviewed red flags to monitor for, counseled on potential adverse reactions of treatments, expectations for improvement in sxs, and advised to follow-up with primary care provider in 3-5 days if symptoms persist, or to seek care sooner if worsening or if any additional concerns/red flags develop. Patient agreed with plan of care; questions were encouraged and answered. Shweta Brar APRN-BRIAN Advanced Practice Provider [facility] documented in this [facility] Work Phone: 1(491) 157-636010-01-2024 History of Present illness Narrative* Florencia Hwang MA - 12/27/2023 3:20 PM EDT Subjective Patient ID: Narendra Arguelles is a 73 y.o. female who presents for right hip/buttock pain for a week. Patient states she had the door hit their right thigh. She can't figure out what is causing the pain. She is unable to do much anything due to the pain. HPI Review of Systems Objective There were no vitals taken for this visit. Physical Exam Assessment/Plan * Jasmine Mathias MD - 12/27/2023 3:20 PM EDT Subjective Narendra Arguelles is a 73 y.o. female who presents for No chief complaint on file.. Here c/o right hip/buttock pain for the past week. She did hit it with a car door last week - she did not see a bruise. She can't step up on a step with the right leg. She did go to therapy today laura evaluation. She would like to get a muscle relaxer and we also discussed prednisone - she states that she has some prednisone at home and I would recommend 20 mg daily for 5 days. Objective Visit Vitals BP 134/78 (BP Location: Left arm, Patient Position: Sitting, BP Cuff Size: Adult) Pulse 78 Physical Exam Vitals reviewed. Constitutional: General: She is not in acute distress. Cardiovascular: Rate and Rhythm: Normal rate. Pulmonary: Effort: Pulmonary effort is normal. No respiratory distress. Musculoskeletal: Comments: Decreased ROM due to pain, pain is in the back of the leg/buttock. Skin: General: Skin is warm and dry. Neurological: General: No focal deficit present. Mental Status: She is alert. Mental status is at baseline. Assessment/Plan Problem List Items Addressed This Visit None Visit Diagnoses Right hip pain - Primary Relevant Medications cyclobenzaprine (Flexeril) 10 mg tablet Other Relevant Orders XR hip right with pelvis when performed 2 or 3 views XR pelvis 3+ views Jasmine Mathias MD [facility] Phone: 1(228) 770-827910-01-2024 Instructions* Patient Instructions* Jasmine Mathias MD - 12/27/2023 3:20 PM EDT Will get Xrays, start muscle relaxer - cautioned about potential drowsiness with that, start prednisone 20 mg daily for 5 days - she states that she has some at home. Follow up based on results and symptoms. [facility] Work Phone: [phone]) 867-516409-16-2024 History of Present illness Narrative* Bryan Luz MD - 12/12/2023 2:00 PM EDT Narendra Arguelles is a 73 y.o. year old female p/w neurogenic claudicated due to lumbar spinal stenosis and lumbosacral radiculopathy. systems reviewed and negative other than what is listed in the history of present illness. Past Medical History: Diagnosis Date Encounter for other screening for malignant neoplasm of breast Screening for breast cancer Encounter for screening for malignant neoplasm of colon Screen for colon cancer Encounter for screening for osteoporosis Osteoporosis screening Osteopenia Osteoporosis Pain in unspecified hip 02/19/2020 Hip pain, acute Personal history of diseases of the blood and blood-forming organs and certain disorders involving the immune mechanism 11/21/2019 History of anemia Past Surgical History: Procedure Laterality Date BACK SURGERY CATARACT EXTRACTION Bilateral 2022 CERVICAL FUSION 2008 anterior cervical discectomy with fusion c5-6 IR INJECTION EPIDURAL STEROID 03/04/2023 C6-7 IR INJECTION EPIDURAL STEROID Bilateral 08/26/2023 L2-3 TFESI OTHER SURGICAL HISTORY 01/23/2019 Rosalva fundoplication laparoscopic OTHER SURGICAL HISTORY 01/23/2019 Hernia repair OTHER SURGICAL HISTORY 01/23/2019 Foot surgery OTHER SURGICAL HISTORY 01/23/2019 Back surgery OTHER SURGICAL HISTORY 01/23/2019 Rectocele repair OTHER SURGICAL HISTORY 01/23/2019 Total hysterectomy abdominal OTHER SURGICAL HISTORY 01/23/2019 Tonsillectomy OTHER SURGICAL HISTORY 01/23/2019 Appendectomy OTHER SURGICAL HISTORY 01/23/2019 Esophagogastroduodenoscopy OTHER SURGICAL HISTORY 01/23/2019 Salpingo-oophorectomy bilateral OTHER SURGICAL HISTORY 01/23/2019 Tubal ligation OTHER SURGICAL HISTORY 01/23/2019 Knee surgery OTHER SURGICAL HISTORY 08/15/2020 Epidural steroid injection OTHER SURGICAL HISTORY 05/02/2020 Epidural steroid injection OTHER SURGICAL HISTORY 04/29/2020 Hip replacement OTHER SURGICAL HISTORY 04/29/2020 Pelvic surgery Current Outpatient Medications: acetaminophen (Tylenol 8 HOUR) 650 mg ER tablet, Take 1 tablet (650 mg) by mouth every 8 hours if needed for mild pain (1 - 3). Do not crush, chew, or split., Disp: , Rfl: albuterol 90 mcg/actuation inhaler, Inhale 2 puffs 2 times a day as needed., Disp: , Rfl: ALPRAZolam (Xanax) 0.25 mg tablet, Take 1 tablet (0.25 mg) by mouth 2 times a day as needed for anxiety., Disp: 30 tablet, Rfl: 1 atorvastatin (Lipitor) 20 mg tablet, TAKE 1 TABLET ONE TIME DAILY, Disp: 90 tablet, Rfl: 3 cyclobenzaprine (Flexeril) 10 mg tablet, Take 1 tablet (10 mg) by mouth 3 times a day as needed formuscle spasms., Disp: , Rfl: ferrous sulfate 325 (65 Fe) MG EC tablet, Take 1 tablet by mouth every other day. Every other day, Disp: , Rfl: folic acid (Folvite) 1 mg tablet, As directed by Dr Chisholm, Disp: , Rfl: furosemide (Lasix) 20 mg tablet, Take 1 tablet (20 mg) by mouth once daily., Disp: 90 tablet, Rfl: 1 lisinopril 5 mg tablet, TAKE 1 TABLET ONE TIME DAILY, Disp: 90 tablet, Rfl: 3 meloxicam (Mobic) 15 mg tablet, Take 1 tablet (15 mg) by mouth once daily., Disp: 90 tablet, Rfl: 3 methotrexate (Trexall) 2.5 mg tablet, Take 8 tablets (20 mg total) by mouth 1 (one) time per week. Follow directions carefully, and ask to explain any part you do not understand. Take exactly as directed., Disp: , Rfl: nortriptyline (Pamelor) 25 mg capsule, TAKE 2 CAPSULES ONE TIME DAILY AT BEDTIME, Disp: 180 capsule, Rfl: 3 omeprazole (PriLOSEC) [address] capsule, TAKE 1 CAPSULE ONE TIME DAILY, Disp: 90 capsule, Rfl: 3 pregabalin (Lyrica) 150 mg capsule, Take 1 capsule (150 mg) by mouth 2 times a day., Disp: 60 capsule, Rfl: 1 traMADol (Ultram) 50 mg tablet, Take 1 tablet (50 mg) by mouth every 8 hours if needed for severe pain (7 - 10)., Disp: 30 tablet, Rfl: 1 gabapentin (Neurontin) 300 mg capsule, TAKE 2 TABS QAM, 2 TABS IN AFTERNOON, AND 3 AT BEDTIME (Patient not taking: Reported on 12/12/2023), Disp: 540 capsule, Rfl: 0 Vitals: 12/12/23 1315 BP: 122/76 Pulse: 69 Objective General: Well developed, awake/alert/oriented x3, no distress, alert and cooperative Skin: Warm and dry, no lesions, no rashes ENMT: Mucous membranes moist, no apparent injury, no lesions seen Head/Neck: Neck Supple, no apparent injury Respiratory/Thorax: Normal breath sounds with good chest expansion, thorax symmetric Cardiovascular: No pitting edema, no JVD Motor Strength: 5/5 Throughout all extremities Muscle Bulk: Normal and symmetric in all extremities Posture: -- Cervical: Normal -- Thoracic: Normal -- Lumbar : Normal Paraspinal muscle spasm/tenderness absent. Sensation: intact to light touch Relevant Results DEXA (2021): -2.8 T score (on prolia) xray C-spine: C5-6 fusion xray L-spine: L1-2, L2-3 spondy [address] EOS needs CT L-spine MRI C-spine: prior C5-6 ACDF with C6-7 adjacent segment diseaseMRI L-spine: prior L4-5 fusion, now with L2-3 stenosis (obliteration of canal with multi-level spondylolistehsis Problem List Items Addressed This Visit Degenerative disc disease, lumbar Neurogenic claudication due to lumbar spinal stenosis Relevant Orders Referral to Physical Therapy Referral to Physical Therapy Referral to [facility] XR EOS full spine [address] lumbar spine wo IV contrast H/O arthrodesis Lumbosacral radiculopathy Relevant Orders Referral to Physical Therapy Referral to Physical Therapy Referral to [facility] XR EOS full spine [address] lumbar spine wo IV contrast Other Visit Diagnoses Senile osteoporosis - Primary Relevant Orders XR DEXA bone density axial skeleton w VFA Assessment/Plan Narendra Arguelles is a 73 y.o. female patient who was referred to me by Mauricio Mancilla PA-C for neurogenic claudicated due to lumbar spinal stenosis and lumbosacral radiculopathy. She reports that shehas experienced a pain in the anterior aspect of the legs for the past 10-12 years which is worse in the morning and the right side is greater than the left side. She is s/p laminectomy and fusion ofL4-5. She reports that she experienced extreme difficulty since the procedure. She has a history of a previous ACDF of C5-6. She continues to experience neck pain. She reports weakness/numbness in the upper extremities/ dropping of objects/ difficulty opening jars. MRI C-spine shows C6-7 adjacent segment disease. Her last DEXA scan was in 2021 and showed osteoporosis. She is on yearly prolia. She is due for a repeat DEXA scan this year (I have ordered it for her). She previously had spontaneous bilateral pelvic fractures without trauma requiring cement. Her BMI is currently 38.28. She has no history of lung disease, heart disease, or diabetes. She has never smoked. She has hyperlipidemia, osteoporosis, and rheumatoid arthritis. We reviewed the MRI lumbar spine from 07/27/23 which demonstrated multilevel degenerative changes most prominent at L2-3 where there is severe narrowing of the spinal canal and bilateral foramina, right greater than left with crowding of the cauda equina nerve roots. There is also moderate to severe bilateral foraminal stenosis at L3-4. I discussed with her that at this point, with this significantof stenosis, she will need a laminectomy with extension and fusion. However, I am very concerned about her osteoporosis and that she may not be able to tolerate surgery. I will order her a CT lumbar, x-ray EOS, and DEXA scan. 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 She will follow-up with me in 3 months. Bryan Luz MD Object Oriented Programmer of Neurosurgery [facility] Spine [place] [facility] Neuroscience ICU Office: [phone] Scribe Attestation By signing my name below, I, Vidhya Ortiz, Marlo attest that this documentation has been prepared under the direction and in the presence of MD Ruby. documented in this [facility] Work Phone: 1([phone]) 606-970408-22-2024 History of Present illness Narrative* Mauricio Mancilla PA-C - 11/17/2023 2:30 PM EDT Subjective Patient ID: Narendra Arguelles is a 73 y.o. female who presents for Back Pain (Patient is here to follow up after seeing a spine surgeon. Patient states the surgeon is unsure he should do surgery. She states the surgeon said she needs a new bone density scan. Patient states her pain is in her lower back. It is across her back. She states it radiates down her right leg to her knee. She states she does have numbness/tingling in her leg. She states the injections are too painful. She feels she didn't tolerate the last injection very well. ). FABIANO score 44. Anny Batres RN 11/17/23 2:03 PM Patient is a 72-year-old female. She has a past medical history significant for previous cervical fusion, neck pain, and cervical spondylosis. She also has a history of previous lumbar fusion, adjacent level lumbar stenosis and lumbar neuritis. Patient underwent most recently bilateral L2-3 transforaminal epidural steroid injection that gave her significant but only short-lived relief. She saw a surgeon at the [facility]. She states that because of her bone density surgery was not recommended yet. They wanted another bone density but she is not scheduled for this until January. She also wonders about getting a second opinion. 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 This done on 03/04/2023 and gave her 85% relief. Her radicular symptoms are still improved. She is using gabapentin 600 mg in the morning, 600 mg in the afternoon and 900 mg at night. This gives her some improvement not enough. She wonders if there are other options. Review of Systems Constitutional: Negative. HENT: Negative. Eyes: Negative. Respiratory: Negative. Cardiovascular: Negative. Gastrointestinal: Negative. Endocrine: Negative. Genitourinary: Negative. Musculoskeletal: Positive for arthralgias, back pain, gait problem and myalgias. Skin: Negative. Allergic/Immunologic: Negative. Neurological: Positive for weakness and numbness. Hematological: Negative. Psychiatric/Behavioral: Negative. Objective Physical Exam Vitals and nursing note reviewed. Constitutional: General: She is not in acute distress. Appearance: Normal appearance. She is not ill-appearing. HENT: Head: Normocephalic and atraumatic. Right Ear: External ear normal. Left Ear: External ear normal. Nose: Nose normal. Mouth/Throat: Pharynx: Oropharynx is clear. Eyes: Conjunctiva/sclera: Conjunctivae normal. Cardiovascular: Rate and Rhythm: Normal rate and regular rhythm. Pulses: Normal pulses. Pulmonary: Effort: Pulmonary effort is normal. Breath sounds: Normal breath sounds. Musculoskeletal: General: Normal range of motion. Cervical back: Normal range of motion. Comments: 5/5 lower extremity strength other than bilateral hip flexion 4/5 Skin: General: Skin is warm and dry. Neurological: General: No focal deficit present. Mental Status: She is alert and oriented to person, place, and time. Mental status is at baseline. Psychiatric: Mood and Affect: Mood normal. Behavior: Behavior normal. Thought Content: Thought content normal. Judgment: Judgment normal. MR lumbar spine wo IV contrast Status: Final result PACS Images Show images for MR lumbar spine wo IV contrast Signed by Signed Time Phone Pager Damari Gibson MD 07/27/2023 10:41 Exam Information Status Exam Begun Exam Ended Final 07/27/2023 07:15 07/27/2023 07:50 Study Result Narrative & Impression Interpreted By: Damari Gibson, STUDY: MR LUMBAR SPINE WO IV CONTRAST INDICATION: Signs/Symptoms:lower back and leg pain and legt fatigue. H/O fusion COMPARISON: Lumbar spine MRI 07/14/2018 ACCESSION NUMBER(S): [id number] ORDERING CLINICIAN: MAURICIO MANCILLA TECHNIQUE: Multiplanar multisequence MRI of the lumbar spine was performed without the administration of intravenous contrast, according to standard protocol. FINDINGS: ALIGNMENT: Stepwise retrolisthesis of T12 on L1 through L2 on L3. 4 mm grade 1 anterolisthesis of L5 on S1 . VERTEBRAE: Status post posterior decompression and fusion of L4-5 and L5-S1. DISCS: Multilevel disc desiccation. Moderate disc height loss from T12-L1 through L2-3. Mild disc height loss at L3-4. CONUS MEDULLARIS AND CAUDA EQUINA: The conus medullaris terminates at L1-2. Crowding of the cauda equina nerve roots at L2-3 secondary to degenerative change detailed further below. Remainder of the cauda equina nerve roots appear normal. PARAVERTEBRAL SOFT TISSUES AND VISUALIZED RETROPERITONEUM: The visualized paravertebral soft tissues appear within normal limits. EVALUATION OF INDIVIDUAL LEVELS: L1-2: Mild retrolisthesis with disc osteophyte complex asymmetric to the left and facet hypertrophy. Severe left foraminal stenosis and moderate right foraminal stenosis. There is mild narrowing of the spinal canal. L2-3: Retrolisthesis with disc osteophyte complex, facet hypertrophy, and infolding of ligamentum flavum. Severe narrowing of the spinal canal and bilateral foramina, [id number]-left. Crowding of the cauda equina nerve roots again noted. L3-4: Disc bulge with facet hypertrophy and infolding of ligamentum flavum resulting in moderate to severe bilateral foraminal stenosis and mild narrowing of the spinal canal. L4-5: Status post laminectomy. No canal or foraminal stenosis. L5-S1: Status post laminectomy and fusion. 4 mm grade 1 anterolisthesis uncovering of the posterior aspect of the disc and facet hypertrophy likely results in moderate bilateral foraminal stenosis though evaluation is limited given artifact from adjacent hardware. No canal stenosis. LIMITED EVALUATION OF UPPER SACRUM AND SACROILIAC JOINTS: Severe degenerative change of the left greater than right sacroiliac joints with fluid tracking within the left sacroiliac joint noted. Findings appear similar to previous MRI 07/14/2018. IMPRESSION: Status post laminectomy and fusion of L4-5 and L5-S1. Multilevel degenerative changes most prominent at L2-3 where there is severe narrowing of the spinal canal and bilateral foramina, right greater than left with crowding of the cauda equina nerve roots. There is also moderate to severe bilateral foraminal stenosis at L3-4. Findings appear grossly unchanged compared to previous MRI 07/14/2018. Signed by: Damari Gibson 07/27/2023 10:41 AM Dictation workstation: [id number] Assessment/Plan Diagnoses and all orders for this visit: Neurogenic claudication due to lumbar spinal stenosis - Referral to Spine Surgery; Future - pregabalin (Lyrica) 150 mg capsule; Take 1 capsule (150 mg) by mouth 2 times a day. Lumbosacral radiculopathy - Referral to Spine Surgery; Future - pregabalin (Lyrica) 150 mg capsule; Take 1 capsule (150 mg) by mouth 2 times a day. Degenerative disc disease, lumbar - Referral to Spine Surgery; Future - pregabalin (Lyrica) 150 mg capsule; Take 1 capsule (150 mg) by mouth 2 times a day. Chronic pain syndrome H/O arthrodesis - Referral to Spine Surgery; Future Rheumatoid arthritis involving multiple sites, unspecified whether rheumatoid factor present (Multi) Patient is a 73-year-old female with the above-mentioned medical diagnoses following up after getting a spine surgical opinion. She states that they were not sure if they wanted to do surgery and they wanted her to get another bone density test. This is not scheduled until January. She had a lot of questions that were all answered and discussed at length. At this time, we are going to have her discontinue the gabapentin and trial Lyrica. How to switch was discussed. Potential side effects werediscussed. She is going to start this as soon as she is able to pick it up. She will start the nextday. We discussed the surgical opinion that she got and options. At this time, she would like to get a second opinion. We will facilitate this. She will follow-up after the consultation. Call us in the interim should she require anything from our services. OARRS reviewed. documented in this [facility] Work Phone: [phone] History of Present illness Narrative* Florencia Hwang MA - 11/10/2023 9:00 AM EDT Subjective Patient ID: Narendra Arguelles is a 73 y.o. female who presents for 6 month check up. Labs completed.Need refills on Xanax, Furosemide, Tramadol, Meloxicam (Tramadol, Xanax goes to [facility] and the rest to [facility]) HPI Review of Systems Objective There were no vitals taken for this visit. Physical Exam Assessment/Plan * Jasmine Mathias MD - 11/10/2023 9:00 AM EDT Subjective Narendra Arugelles is a 73 y.o. female who presents for No chief complaint on file.. Here for f/u HTN, high chol, GERD (Dr Moncada), osteoporosis, anxiety, chronic pain, rheumatoid arthritis (Dr Chisholm), precancerous lesions on legs ([facility]). She is under a lot of stress right now - sister has cancer and is not doing well. She is having more issues with pain in her back and is seeing specialists for that. Objective Visit Vitals BP 140/82 (BP Location: Left arm, Patient Position: Sitting, BP Cuff Size: Adult) Pulse 93 Physical Exam Vitals reviewed. Constitutional: General: She is not in acute distress. Cardiovascular: Rate and Rhythm: Normal rate and regular rhythm. Heart sounds: No murmur heard. Pulmonary: Effort: Pulmonary effort is normal. No respiratory distress. Breath sounds: Normal breath sounds. Skin: General: Skin is warm and dry. Neurological: General: No focal deficit present. Mental Status: She is alert. Mental status is at baseline. Latest Reference Range & Units 11/04/23 06:16 GLUCOSE 74 - 99 mg/dL 100 (H) SODIUM 136 - 145 mmol/L 140 POTASSIUM 3.5 - 5.3 mmol/L 4.6 CHLORIDE 98 - 107 mmol/L 104 Bicarbonate 21 - 32 mmol/L 31 Anion Gap 10 - 20 mmol/L 10 Blood Urea Nitrogen 6 - 23 mg/dL 19 Creatinine 0.50 - 1.05 mg/dL 0.91 EGFR >60 mL/min/1.73m*2 67 Calcium 8.6 - 10.3 mg/dL 9.3 Albumin 3.4 - 5.0 g/dL 3.8 Alkaline Phosphatase 33 - 136 U/L 70 ALT 7 - 45 U/L 19 AST 9 - 39 U/L 23 Bilirubin Total 0.0 - 1.2 mg/dL 0.4 HDL CHOLESTEROL mg/dL 53.0 Cholesterol/HDL Ratio 2.7 LDL Calculated <=99 mg/dL 63 VLDL 0 - 40 mg/dL 27 TRIGLYCERIDES 0 - 149 mg/dL 136 Non HDL Cholesterol 0 - 149 mg/dL 90 Total Protein 6.4 - 8.2 g/dL 5.9 (L) CHOLESTEROL 0 - 199 mg/dL 143 Vitamin B12 211 - 911 pg/mL 939 (H) Thyroid Stimulating Hormone 0.44 - 3.98 mIU/L 1.83 Vitamin D, 25-Hydroxy, Total 30 - 100 ng/mL 43 LEUKOCYTES (10*3/UL) IN BLOOD BY AUTOMATED COUNT, CONGOLESE 4.4 - 11.3 x10*3/uL 6.6 nRBC 0.0 - 0.0 /100 WBCs 0.0 ERYTHROCYTES (10*6/UL) IN BLOOD BY AUTOMATED COUNT, CONGOLESE 4.00 - 5.20 x10*6/uL 3.65 (L) HEMOGLOBIN 12.0 - 16.0 g/dL 11.1 (L) HEMATOCRIT 36.0 - 46.0 % 36.5 MCV 80 - 100 fL 100 MCH 26.0 - 34.0 pg 30.4 MCHC 32.0 - 36.0 g/dL 30.4 (L) RED CELL DISTRIBUTION WIDTH 11.5 - 14.5 % 15.4 (H) PLATELETS (10*3/UL) IN BLOOD AUTOMATED COUNT, CONGOLESE 150 - 450 x10*3/uL 326 NEUTROPHILS/100 LEUKOCYTES IN BLOOD BY AUTOMATED COUNT, CONGOLESE 40.0 - 80.0 % 65.8 Immature Granulocytes %, Automated 0.0 - 0.9 % 1.8 (H) Lymphocytes % 13.0 - 44.0 % 19.3 Monocytes % 2.0 - 10.0 % 6.8 Eosinophils % 0.0 - 6.0 % 5.5 Basophils % 0.0 - 2.0 % 0.8 NEUTROPHILS (10*3/UL) IN BLOOD BY AUTOMATED COUNT, CONGOLESE 1.60 - 5.50 x10*3/uL 4.33 Immature Granulocytes Absolute, Automated 0.00 - 0.50 x10*3/uL 0.12 Lymphocytes Absolute 0.80 - 3.00 x10*3/uL 1.27 Monocytes Absolute 0.05 - 0.80 x10*3/uL 0.45 Eosinophils Absolute 0.00 - 0.40 x10*3/uL 0.36 Basophils Absolute 0.00 - 0.10 x10*3/uL 0.05 (H): Data is abnormally high (L): Data is abnormally low Assessment/Plan Problem List Items Addressed This Visit Anxiety Chronic pain Edema GERD (gastroesophageal reflux disease) HTN (hypertension) Hypercholesteremia Osteoporosis Primary generalized (osteo)arthritis Rheumatoid arthritis (Multi) Class 2 severe obesity with serious comorbidity and body mass index (BMI) of 35.0 to 35.9 in adult (Multi) Other Visit Diagnoses Vitamin D deficiency Jasmine Mathias MD [facility]: [phone] Instructions* Patient Instructions* Jasmine Mathias MD - 11/10/2023 9:00 AM EDT Continue current medications. Follow up with specialists as scheduled. Follow up in 6 months, sooner if needed. [facility] Work Phone: [phone] History of Present illness Narrative* Mauricio Mancilla PA-C - 09/22/2023 1:00 PM EDT Subjective Patient ID: Narendra Arguelles is a 72 y.o. female who presents for Follow-up (FOLLOW UP BILATERAL L2-3 TFESI, SHE FEELS SHE GOT RELIEF OF BACK PAIN FOR 3 DAYS AFTER THE INJECTION, SHE STATES AFTER THEINJECTION HER FACE GETS REALLY RED AND HOT THE NEXT DAY, WHEN SHE WAKES IN THE MORNING SHE HAS MUSCLE PAINS IN HER LEGS VERY PAINFUL TO WALK,).PAIN WITH TRANSITIONING, WALKING, STANDING, DESCRIBES HER PAIN TO BE AN ACHE, THROBBING, SHARP PAINS, LEGS TINGLING SOMETIMES TO FEET, SHE TAKES TRAMADOL FOR PAIN, TYLENOL THROUGHOUT THE DAY,PAIN SCORE 7/10, FABIANO=58%,SOAPP= La Christianson, BUNCH MAKER 09/22/23 12:50 PM Patient is a 72-year-old female. She has a past medical history significant for previous cervical fusion, neck pain, and cervical spondylosis. She also has a history of previous lumbar fusion, adjacent level lumbar stenosis and lumbar neuritis. Patient underwent recent bilateral L2-3 transforaminalepidural steroid injection that gave her significant but only short-lived relief. She also had a lot of flushing from the steroid. She states that at this time she is now ready to see a surgeon. Most recently for her neck and radicular symptoms she underwent a C6/7 epidural steroid injection. This done on 03/04/2023 and gave her 85% relief. Her radicular symptoms are still improved. At this time, she rates her lower back and leg pain a 7/10. She has lower back pain with leg pain and leg fatigue. She has difficulty walking. Difficulty upright and doing very quickly. This is very bothersome to her. This significantly affects her quality of life. She is using gabapentin 600 mg inthe morning, 600 mg in the afternoon and 900 mg at night. This gives her some improvement not enough. Review of Systems Constitutional: Negative. HENT: Negative. Eyes: Negative. Respiratory: Negative. Cardiovascular: Negative. Gastrointestinal: Negative. Endocrine: Negative. Genitourinary: Negative. Musculoskeletal: Positive for arthralgias, back pain, gait problem and myalgias. Skin: Negative. Allergic/Immunologic: Negative. Neurological: Positive for weakness and numbness. Hematological: Negative. Psychiatric/Behavioral: Negative. Objective Physical Exam Vitals and nursing note reviewed. Constitutional: Appearance: Normal appearance. HENT: Head: Normocephalic and atraumatic. Right Ear: External ear normal. Left Ear: External ear normal. Nose: Nose normal. Mouth/Throat: Pharynx: Oropharynx is clear. Eyes: Conjunctiva/sclera: Conjunctivae normal. Cardiovascular: Rate and Rhythm: Normal rate and regular rhythm. Pulses: Normal pulses. Pulmonary: Effort: Pulmonary effort is normal. Musculoskeletal: General: Normal range of motion. Cervical back: Normal range of motion. Comments: 5/5 lower extremity strength other than bilateral hip flexion 4/5 Skin: General: Skin is warm and dry. Neurological: General: No focal deficit present. Mental Status: She is alert and oriented to person, place, and time. Mental status is at baseline. Psychiatric: Mood and Affect: Mood normal. Behavior: Behavior normal. Thought Content: Thought content normal. Judgment: Judgment normal. MR lumbar spine wo IV contrast Status: Final result PACS Images Show images for MR lumbar spine wo IV contrast Signed by Signed Time Phone Pager Damari Gibson MD 07/27/2023 10:41 Exam Information Status Exam Begun Exam Ended Final 07/27/2023 07:15 07/27/2023 07:50 Study Result Narrative & Impression Interpreted By: Damari Gibson, STUDY: MR LUMBAR SPINE WO IV CONTRAST INDICATION: Signs/Symptoms:lower back and leg pain and legt fatigue. H/O fusion COMPARISON: Lumbar spine MRI 07/14/2018 ACCESSION NUMBER(S): [id number] ORDERING CLINICIAN: MAURICIO MANCILLA TECHNIQUE: Multiplanar multisequence MRI of the lumbar spine was performed without the administration of intravenous contrast, according to standard protocol. FINDINGS: ALIGNMENT: Stepwise retrolisthesis of T12 on L1 through L2 on L3. 4 mm grade 1 anterolisthesis of L5 on S1 . VERTEBRAE: Status post posterior decompression and fusion of L4-5 and L5-S1. DISCS: Multilevel disc desiccation. Moderate disc height loss from T12-L1 through L2-3. Mild disc height loss at L3-4. CONUS MEDULLARIS AND CAUDA EQUINA: The conus medullaris terminates at L1-2. Crowding of the cauda equina nerve roots at L2-3 secondary to degenerative change detailed further below. Remainder of the cauda equina nerve roots appear normal. PARAVERTEBRAL SOFT TISSUES AND VISUALIZED RETROPERITONEUM: The visualized paravertebral soft tissues appear within normal limits. EVALUATION OF INDIVIDUAL LEVELS: L1-2: Mild retrolisthesis with disc osteophyte complex asymmetric to the left and facet hypertrophy. Severe left foraminal stenosis and moderate right foraminal stenosis. There is mild narrowing of the spinal canal. L2-3: Retrolisthesis with disc osteophyte complex, facet hypertrophy, and infolding of ligamentum flavum. Severe narrowing of the spinal canal and bilateral foramina, [id number]-left. Crowding of the cauda equina nerve roots again noted. L3-4: Disc bulge with facet hypertrophy and infolding of ligamentum flavum resulting in moderate to severe bilateral foraminal stenosis and mild narrowing of the spinal canal. L4-5: Status post laminectomy. No canal or foraminal stenosis. L5-S1: Status post laminectomy and fusion. 4 mm grade 1 anterolisthesis uncovering of the posterior aspect of the disc and facet hypertrophy likely results in moderate bilateral foraminal stenosis though evaluation is limited given artifact from adjacent hardware. No canal stenosis. LIMITED EVALUATION OF UPPER SACRUM AND SACROILIAC JOINTS: Severe degenerative change of the left greater than right sacroiliac joints with fluid tracking within the left sacroiliac joint noted. Findings appear similar to previous MRI 07/14/2018. IMPRESSION: Status post laminectomy and fusion of L4-5 and L5-S1. Multilevel degenerative changes most prominent at L2-3 where there is severe narrowing of the spinal canal and bilateral foramina, right greater than left with crowding of the cauda equina nerve roots. There is also moderate to severe bilateral foraminal stenosis at L3-4. Findings appear grossly unchanged compared to previous MRI 07/14/2018. Signed by: Damari Gibson 07/27/2023 10:41 AM Dictation workstation: [id number] Assessment/Plan Diagnoses and all orders for this visit: Neurogenic claudication due to lumbar spinal stenosis - Referral to Spine Surgery; Future Lumbosacral radiculopathy - Referral to Spine Surgery; Future Spondylosis of lumbosacral region, unspecified spinal osteoarthritis complication status - Referral to Spine Surgery; Future S/P spinal fusion - Referral to Spine Surgery; Future Degenerative disc disease, lumbar - gabapentin (Neurontin) 300 mg capsule; TAKE 2 TABS QAM, 2 TABS IN AFTERNOON, AND 3 AT BEDTIME Other chronic pain - gabapentin (Neurontin) 300 mg capsule; TAKE 2 TABS QAM, 2 TABS IN AFTERNOON, AND 3 AT BEDTIME Patient is a 72-year-old female. She has a past medical history significant for previous lumbar fusion, lumbar stenosis, lumbar neuritis, lumbar spondylosis, previous cervical fusion, cervical spondylosis, adjacent level cervical stenosis and cervical neuritis. Previous cervical epidural helped. Recent bilateral lumbar transforaminal epidural steroid injection gave him significant but only short-lived relief. She is once again noticing lower back pain with bilateral leg pain and leg fatigue. This is affecting her ambulatory status. This affecting her quality of life. This is affecting her activities and affecting her ability to do the things she wants to do. At this time, we reviewed her MRI. We discussed different options. We are going to refer her to a spine surgeon. She is going to look into who she wants to see. An order was placed. She is going to continue on the gabapentin. OARRS was reviewed. Refill sent. Follow-up in 3 months. Call clinic sooner if necessary. documented in this [facility] Work Phone: [phone]) [phone] Miscellaneous Notes* Perioperative Nursing Note - Yasemin Grove RN - 08/26/2023 1:50 PM EDT Wheeled to discharge elevator via w/c; Driven home by jarrettGregg mckee. * Op Note - Smith Estrada DO - 08/26/2023 12:55 PM EDT * No procedures listed * Operative Note Date: 08/26/2023 OR Location: [place] [address] OR Name: Narendra Arguelles, : 1950, Age: 72 y.o., , Sex: female Diagnosis * No Diagnosis Codes entered * * No Diagnosis Codes entered * Procedures * No procedures documented on diagnosis form * Surgeons * No surgeons found in log * Resident/Fellow/Other Cardiology Associate: * No surgeons found in log * Procedure Summary Anesthesia: * No anesthesia type entered * ASA: ASA status not filed in the log. Anesthesia Staff: No anesthesia staff entered. Estimated Blood Loss: 0mL Intra-op Medications: * Intraprocedure medication information is unavailable because the case startand end events have not been set * Intraprocedure I/O Totals None Specimen: No specimens collected Staff: Machine Adjuster Leader: Isabella Machine Adjuster Leader: Torsten Gonzales Person: Kathryn Machine Adjuster Leader: Camilo Drains and/or Catheters: * None in log * Tourniquet Times: Implants: Findings: Indications: Narendra Arguelles is an 72 y.o. female who is having surgery for * No pre-op diagnosis entered *. The patient was seen in the preoperative area. The risks, benefits, complications, treatment options, non-operative alternatives, expected recovery and outcomes were discussed with the patient. The possibilities of reaction to medication, pulmonary aspiration, injury to surrounding structures, bleeding, recurrent infection, the need for additional procedures, failure to diagnose a condition, and creating a complication requiring transfusion or operation were discussed with the patient. The patient concurred with the proposed plan, giving informed consent. The site of surgery was properly noted/marked if necessary per policy. The patient has been actively warmed in preoperative area. Preopera tive antibiotics are not indicated. Venous thrombosis prophylaxis are not indicated. Procedure Details: Diagnosis: M54.17, lumbosacral radiculopathy Procedure: Bilateral L2/3 transforaminal epidural steroid injections under fluoroscopic guidance Anesthesia: Local Complications: None After informed consent was obtained, the patient was brought to the procedure suite and placed in the prone position. Pulse oximetry and blood pressure were monitored throughout. The low back area was prepped and draped in the usual sterile fashion. Using fluoroscopic guidance, the skin and subcutaneous tissue overlying the needle trajectory of the neuroforamina were anesthetized with 2.0% lidocaine. The 22-gauge Colette needles were then advanced under fluoroscopic guidance into the foramina.Needle tip positions were confirmed in at least two views. Injection of Omnipaque contrast revealedappropriate spread of the dye without vascular uptake. Next, at each site, 1.5 mL of 0.5% lidocaineand 5 mg dexamethasone were injected in divided doses through each needle tip. The needles were removed and the patient was then transferred to the recovery room in stable condition. The patient tolerated the procedure well. There were no apparent complications. FOLLOW UP: The patient will update us on their response to this procedure, and agrees to continue currently prescribed/recommended therapies. Complications: None; patient tolerated the procedure well. Disposition: home Condition: stable Additional Details: Attending Attestation: *No primary surgeon found* documented in this [facility] Work Phone: [phone]) [phone] Note* Perioperative Nursing Note - Yasemin Grove RN - 08/26/2023 1:50 PM EDT Wheeled to discharge elevator via w/c; Driven home by [email or web address]. [facility]05-31-2024 Attending History and physical note * Smith Estrada DO - 08/26/2023 12:55 PM EDT H&P reviewed. The patient was examined and there are no changes to the H&P. Source Note - Mauricio Mancilla PA-C - 08/09/2023 8:00 AM EDT Subjective Patient ID: Narendra Arguelles is a 72 y.o. female who presents for Back Pain (FUV MRI results. Todayshe is having pain in her bilat lower back that goes into her bilat legs in the side and front downto her feet rates her pain score 9-10/10, and describes as a muscle cramp/ache at rest and pain gets sharp and very hard to flower buncher or picker her legs due to the pain. She has been using a cane when the pain is bad the pain use to come and go but it is more frequent now. ) FABIANO score 74%. She is using tramadol and rest on her bad days along with Meloxicam and Gabapentin these use to give her relief but now not much helps onher bad days, she is hoping a shot will help her pain. Chula Silverman RN 08/09/23 7:51 AM Patient is a 72-year-old female. She has a past medical history significant for previous lumbar fusion, lumbar stenosis, lumbar neuritis, previous cervical fusion, neck pain, and cervical spondylosis. She is here today after undergoing an updated lumbar MRI. Most recently for her neck and radicular symptoms she underwent a C6/7 epidural steroid injection. This done on 03/04/2023 and gave her 85% relief. Her radicular symptoms are still improved At this time, she rates her lower back and leg pain an 8/10. She is hopeful to get an injection or something set up to try to get some relief of her lower back pain like this is currently limiting factor at this time. This is what is affecting her quality of life and her activities throughout the day. It is hard to flower buncher or picker her legs. They feel weak and heavy. She has done therapy in the past that did not help. She has had surgery. She states that another surgery was discussed with her but she just does not think she can do this. She states that the medications-gabapentin does give her some improvement but not enough. She uses meloxicam as well and tramadol given to her by her PCP. Review of Systems Constitutional: Negative. HENT: Negative. Eyes: Negative. Respiratory: Negative. Cardiovascular: Negative. Gastrointestinal: Negative. Endocrine: Negative. Genitourinary: Negative. Musculoskeletal: Positive for arthralgias, back pain, gait problem and myalgias. Skin: Negative. Allergic/Immunologic: Negative. Neurological: Positive for weakness and numbness. Hematological: Negative. Psychiatric/Behavioral: Negative. Objective Physical Exam Vitals and nursing note reviewed. Constitutional: Appearance: Normal appearance. HENT: Head: Normocephalic and atraumatic. Right Ear: External ear normal. Left Ear: External ear normal. Nose: Nose normal. Mouth/Throat: Pharynx: Oropharynx is clear. Eyes: Conjunctiva/sclera: Conjunctivae normal. Cardiovascular: Rate and Rhythm: Normal rate and regular rhythm. Pulses: Normal pulses. Pulmonary: Effort: Pulmonary effort is normal. Musculoskeletal: General: Normal range of motion. Cervical back: Normal range of motion. Comments: 5/5 lower extremity strength other than bilateral hip flexion 4/5 Skin: General: Skin is warm and dry. Neurological: General: No focal deficit present. Mental Status: She is alert and oriented to person, place, and time. Mental status is at baseline. Psychiatric: Mood and Affect: Mood normal. Behavior: Behavior normal. Thought Content: Thought content normal. Judgment: Judgment normal. MR lumbar spine wo IV contrast Status: Final result PACS Images Show images for MR lumbar spine wo IV contrast Signed by Signed Time Phone Pager Damari Gibson MD 07/27/2023 10:41 Exam Information Status Exam Begun Exam Ended Final 07/27/2023 07:15 07/27/2023 07:50 Study Result Narrative & Impression Interpreted By: Damari Gibson, STUDY: MR LUMBAR SPINE WO IV CONTRAST INDICATION: Signs/Symptoms:lower back and leg pain and legt fatigue. H/O fusion COMPARISON: Lumbar spine MRI 07/14/2018 ACCESSION NUMBER(S): [id number] ORDERING CLINICIAN: MAURICIO MANCILLA TECHNIQUE: Multiplanar multisequence MRI of the lumbar spine was performed without the administration of intravenous contrast, according to standard protocol. FINDINGS: ALIGNMENT: Stepwise retrolisthesis of T12 on L1 through L2 on L3. 4 mm grade 1 anterolisthesis of L5 on S1 . VERTEBRAE: Status post posterior decompression and fusion of L4-5 and L5-S1. DISCS: Multilevel disc desiccation. Moderate disc height loss from T12-L1 through L2-3. Mild disc height loss at L3-4. CONUS MEDULLARIS AND CAUDA EQUINA: The conus medullaris terminates at L1-2. Crowding of the cauda equina nerve roots at L2-3 secondary to degenerative change detailed further below. Remainder of the cauda equina nerve roots appear normal. PARAVERTEBRAL SOFT TISSUES AND VISUALIZED RETROPERITONEUM: The visualized paravertebral soft tissues appear within normal limits. EVALUATION OF INDIVIDUAL LEVELS: L1-2: Mild retrolisthesis with disc osteophyte complex asymmetric to the left and facet hypertrophy. Severe left foraminal stenosis and moderate right foraminal stenosis. There is mild narrowing of the spinal canal. L2-3: Retrolisthesis with disc osteophyte complex, facet hypertrophy, and infolding of ligamentum flavum. Severe narrowing of the spinal canal and bilateral foramina, [id number]-left. Crowding of the cauda equina nerve roots again noted. L3-4: Disc bulge with facet hypertrophy and infolding of ligamentum flavum resulting in moderate to severe bilateral foraminal stenosis and mild narrowing of the spinal canal. L4-5: Status post laminectomy. No canal or foraminal stenosis. L5-S1: Status post laminectomy and fusion. 4 mm grade 1 anterolisthesis uncovering of the posterior aspect of the disc and facet hypertrophy likely results in moderate bilateral foraminal stenosis though evaluation is limited given artifact from adjacent hardware. No canal stenosis. LIMITED EVALUATION OF UPPER SACRUM AND SACROILIAC JOINTS: Severe degenerative change of the left greater than right sacroiliac joints with fluid tracking within the left sacroiliac joint noted. Findings appear similar to previous MRI 07/14/2018. IMPRESSION: Status post laminectomy and fusion of L4-5 and L5-S1. Multilevel degenerative changes most prominent at L2-3 where there is severe narrowing of the spinal canal and bilateral foramina, right greater than left with crowding of the cauda equina nerve roots. There is also moderate to severe bilateral foraminal stenosis at L3-4. Findings appear grossly unchanged compared to previous MRI 07/14/2018. Signed by: Damari Gibson 07/27/2023 10:41 AM Dictation workstation: [id number] Assessment/Plan Diagnoses and all orders for this visit: Lumbosacral radiculopathy - Transforaminal; Future Neurogenic claudication due to lumbar spinal stenosis - Transforaminal; Future H/O arthrodesis Rheumatoid arthritis involving multiple sites, unspecified whether rheumatoid factor present (Multi) Other orders - Vital Signs; Standing - Vital Signs; Standing - Height and weight; Standing - POCT glucose meter docked device; Standing - FL less than 1 hour; Standing - iohexol (OMNIPaque) 300 mg iodine/mL solution 6 mL - lidocaine PF (Xylocaine) 20 mg/mL (2 %) injection 120 mg - lidocaine PF (Xylocaine) 20 mg/mL (2 %) injection 20 mg - sodium chloride (PF) 0.9% solution 1 mL - dexAMETHasone (PF) (Decadron) injection 10 mg Patient is a 72-year-old female with the above-mentioned medical diagnoses. At this time, her lowerback and leg symptoms are what are most bothersome to her. This is affecting her quality of life. This is affecting her activities. Is affecting her ability to do things she wants to do. We reviewed the MRI. We discussed different options. She really does not feel that surgery is something that shecould undergo at this time. She states that she had just such a hard time with the first when she does not think she could do this again. Based on her MRI findings, her pain pattern and her failure to improve with all reasonable conservative treatments which has included physical therapy we discussed bilateral L2-3 transforaminal epidural steroid injection under fluoroscopy for both diagnostic and therapeutic purposes. Patient denies any loss of bowel or bladder control. She denies any genital or anal numbness. She denies any red flag symptoms. We will pursue bilateral L2-3 transforaminal epid ural steroid injection and follow-up 2 weeks after. Diagnosis-M54.17-lumbosacral neuritis. Medication hold including meloxicam for 4 days was discussed. Follow- up as above-mentioned. In the meantime she will continue on gabapentin. OARRS reviewed. She is going to take 2 in the morning, 2 in the afternoon and 3 at bedtime. She will call in the interim should she require anything from us. [facility] Work Phone: [phone] History and physical note* Smith Estrada DO - 08/26/2023 12:55 PM EDT H&P reviewed. The patient was examined and there are no changes to the H&P. Source Note - Mauricio Mancilla PA-C - 08/09/2023 8:00 AM EDT Subjective Patient ID: Narendra Arguelles is a 72 y.o. female who presents for Back Pain (FUV MRI results. Todayshe is having pain in her bilat lower back that goes into her bilat legs in the side and front downto her feet rates her pain score 9-10/10, and describes as a muscle cramp/ache at rest and pain gets sharp and very hard to flower buncher or picker her legs due to the pain. She has been using a cane when the pain is bad the pain use to come and go but it is more frequent now. ) FABIANO score 74%. She is using tramadol and rest on her bad days along with Meloxicam and Gabapentin these use to give her relief but now not much helps onher bad days, she is hoping a shot will help her pain. Chula Silverman RN 08/09/23 7:51 AM Patient is a 72-year-old female. She has a past medical history significant for previous lumbar fusion, lumbar stenosis, lumbar neuritis, previous cervical fusion, neck pain, and cervical spondylosis. She is here today after undergoing an updated lumbar MRI. Most recently for her neck and radicular symptoms she underwent a C6/7 epidural steroid injection. This done on 03/04/2023 and gave her 85% relief. Her radicular symptoms are still improved At this time, she rates her lower back and leg pain an 8/10. She is hopeful to get an injection or something set up to try to get some relief of her lower back pain like this is currently limiting factor at this time. This is what is affecting her quality of life and her activities throughout the day. It is hard to flower buncher or picker her legs. They feel weak and heavy. She has done therapy in the past that did not help. She has had surgery. She states that another surgery was discussed with her but she just does not think she can do this. She states that the medications-gabapentin does give her some improvement but not enough. She uses meloxicam as well and tramadol given to her by her PCP. Review of Systems Constitutional: Negative. HENT: Negative. Eyes: Negative. Respiratory: Negative. Cardiovascular: Negative. Gastrointestinal: Negative. Endocrine: Negative. Genitourinary: Negative. Musculoskeletal: Positive for arthralgias, back pain, gait problem and myalgias. Skin: Negative. Allergic/Immunologic: Negative. Neurological: Positive for weakness and numbness. Hematological: Negative. Psychiatric/Behavioral: Negative. Objective Physical Exam Vitals and nursing note reviewed. Constitutional: Appearance: Normal appearance. HENT: Head: Normocephalic and atraumatic. Right Ear: External ear normal. Left Ear: External ear normal. Nose: Nose normal. Mouth/Throat: Pharynx: Oropharynx is clear. Eyes: Conjunctiva/sclera: Conjunctivae normal. Cardiovascular: Rate and Rhythm: Normal rate and regular rhythm. Pulses: Normal pulses. Pulmonary: Effort: Pulmonary effort is normal. Musculoskeletal: General: Normal range of motion. Cervical back: Normal range of motion. Comments: 5/5 lower extremity strength other than bilateral hip flexion 4/5 Skin: General: Skin is warm and dry. Neurological: General: No focal deficit present. Mental Status: She is alert and oriented to person, place, and time. Mental status is at baseline. Psychiatric: Mood and Affect: Mood normal. Behavior: Behavior normal. Thought Content: Thought content normal. Judgment: Judgment normal. MR lumbar spine wo IV contrast Status: Final result PACS Images Show images for MR lumbar spine wo IV contrast Signed by Signed Time Phone Pager Damari Gibson MD 07/27/2023 10:41 Exam Information Status Exam Begun Exam Ended Final 07/27/2023 07:15 07/27/2023 07:50 Study Result Narrative & Impression Interpreted By: Damari Gibson, STUDY: MR LUMBAR SPINE WO IV CONTRAST INDICATION: Signs/Symptoms:lower back and leg pain and legt fatigue. H/O fusion COMPARISON: Lumbar spine MRI 07/14/2018 ACCESSION NUMBER(S): [id number] ORDERING CLINICIAN: MAURICIO MANCILLA TECHNIQUE: Multiplanar multisequence MRI of the lumbar spine was performed without the administration of intravenous contrast, according to standard protocol. FINDINGS: ALIGNMENT: Stepwise retrolisthesis of T12 on L1 through L2 on L3. 4 mm grade 1 anterolisthesis of L5 on S1 . VERTEBRAE: Status post posterior decompression and fusion of L4-5 and L5-S1. DISCS: Multilevel disc desiccation. Moderate disc height loss from T12-L1 through L2-3. Mild disc height loss at L3-4. CONUS MEDULLARIS AND CAUDA EQUINA: The conus medullaris terminates at L1-2. Crowding of the cauda equina nerve roots at L2-3 secondary to degenerative change detailed further below. Remainder of the cauda equina nerve roots appear normal. PARAVERTEBRAL SOFT TISSUES AND VISUALIZED RETROPERITONEUM: The visualized paravertebral soft tissues appear within normal limits. EVALUATION OF INDIVIDUAL LEVELS: L1-2: Mild retrolisthesis with disc osteophyte complex asymmetric to the left and facet hypertrophy. Severe left foraminal stenosis and moderate right foraminal stenosis. There is mild narrowing of the spinal canal. L2-3: Retrolisthesis with disc osteophyte complex, facet hypertrophy, and infolding of ligamentum flavum. Severe narrowing of the spinal canal and bilateral foramina, [id number]-left. Crowding of the cauda equina nerve roots again noted. L3-4: Disc bulge with facet hypertrophy and infolding of ligamentum flavum resulting in moderate to severe bilateral foraminal stenosis and mild narrowing of the spinal canal. L4-5: Status post laminectomy. No canal or foraminal stenosis. L5-S1: Status post laminectomy and fusion. 4 mm grade 1 anterolisthesis uncovering of the posterior aspect of the disc and facet hypertrophy likely results in moderate bilateral foraminal stenosis though evaluation is limited given artifact from adjacent hardware. No canal stenosis. LIMITED EVALUATION OF UPPER SACRUM AND SACROILIAC JOINTS: Severe degenerative change of the left greater than right sacroiliac joints with fluid tracking within the left sacroiliac joint noted. Findings appear similar to previous MRI 07/14/2018. IMPRESSION: Status post laminectomy and fusion of L4-5 and L5-S1. Multilevel degenerative changes most prominent at L2-3 where there is severe narrowing of the spinal canal and bilateral foramina, right greater than left with crowding of the cauda equina nerve roots. There is also moderate to severe bilateral foraminal stenosis at L3-4. Findings appear grossly unchanged compared to previous MRI 07/14/2018. Signed by: Damari Gibson 07/27/2023 10:41 AM Dictation workstation: [id number] Assessment/Plan Diagnoses and all orders for this visit: Lumbosacral radiculopathy - Transforaminal; Future Neurogenic claudication due to lumbar spinal stenosis - Transforaminal; Future H/O arthrodesis Rheumatoid arthritis involving multiple sites, unspecified whether rheumatoid factor present (Multi) Other orders - Vital Signs; Standing - Vital Signs; Standing - Height and weight; Standing - POCT glucose meter docked device; Standing - FL less than 1 hour; Standing - iohexol (OMNIPaque) 300 mg iodine/mL solution 6 mL - lidocaine PF (Xylocaine) 20 mg/mL (2 %) injection 120 mg - lidocaine PF (Xylocaine) 20 mg/mL (2 %) injection 20 mg - sodium chloride (PF) 0.9% solution 1 mL - dexAMETHasone (PF) (Decadron) injection 10 mg Patient is a 72-year-old female with the above-mentioned medical diagnoses. At this time, her lowerback and leg symptoms are what are most bothersome to her. This is affecting her quality of life. This is affecting her activities. Is affecting her ability to do things she wants to do. We reviewed the MRI. We discussed different options. She really does not feel that surgery is something that shecould undergo at this time. She states that she had just such a hard time with the first when she does not think she could do this again. Based on her MRI findings, her pain pattern and her failure to improve with all reasonable conservative treatments which has included physical therapy we discussed bilateral L2-3 transforaminal epidural steroid injection under fluoroscopy for both diagnostic and therapeutic purposes. Patient denies any loss of bowel or bladder control. She denies any genital or anal numbness. She denies any red flag symptoms. We will pursue bilateral L2-3 transforaminal epid ural steroid injection and follow-up 2 weeks after. Diagnosis-M54.17-lumbosacral neuritis. Medication hold including meloxicam for 4 days was discussed. Follow- up as above-mentioned. In the meantime she will continue on gabapentin. OARRS reviewed. She is going to take 2 in the morning, 2 in the afternoon and 3 at bedtime. She will call in the interim should she require anything from us. documented in this [facility] Work Phone: [phone] Note* Op Note - Smith Estrada DO - 08/26/2023 12:55 PM EDT * No procedures listed * Operative Note Date: 08/26/2023 OR Location: [place] [address] OR Name: Narendra Arguelles, : 1950, Age: 72 y.o., , Sex: female Diagnosis * No Diagnosis Codes entered * * No Diagnosis Codes entered * Procedures * No procedures documented on diagnosis form * Surgeons * No surgeons found in log * Resident/Fellow/Other Cardiology Associate: * No surgeons found in log * Procedure Summary Anesthesia: * No anesthesia type entered * ASA: ASA status not filed in the log. Anesthesia Staff: No anesthesia staff entered. Estimated Blood Loss: 0mL Intra-op Medications: * Intraprocedure medication information is unavailable because the case startand end events have not been set * Intraprocedure I/O Totals None Specimen: No specimens collected Staff: Machine Adjuster Leader: Isabella Machine Adjuster Leader: Torsten Gonzales Person: Kathryn Machine Adjuster Leader: Camilo Drains and/or Catheters: * None in log * Tourniquet Times: Implants: Findings: Indications: Narendra Arguelles is an 72 y.o. female who is having surgery for * No pre-op diagnosis entered *. The patient was seen in the preoperative area. The risks, benefits, complications, treatment options, non-operative alternatives, expected recovery and outcomes were discussed with the patient. The possibilities of reaction to medication, pulmonary aspiration, injury to surrounding structures, bleeding, recurrent infection, the need for additional procedures, failure to diagnose a condition, and creating a complication requiring transfusion or operation were discussed with the patient. The patient concurred with the proposed plan, giving informed consent. The site of surgery was properly noted/marked if necessary per policy. The patient has been actively warmed in preoperative area. Preopera tive antibiotics are not indicated. Venous thrombosis prophylaxis are not indicated. Procedure Details: Diagnosis: M54.17, lumbosacral radiculopathy Procedure: Bilateral L2/3 transforaminal epidural steroid injections under fluoroscopic guidance Anesthesia: Local Complications: None After informed consent was obtained, the patient was brought to the procedure suite and placed in the prone position. Pulse oximetry and blood pressure were monitored throughout. The low back area was prepped and draped in the usual sterile fashion. Using fluoroscopic guidance, the skin and subcutaneous tissue overlying the needle trajectory of the neuroforamina were anesthetized with 2.0% lidocaine. The 22-gauge Colette needles were then advanced under fluoroscopic guidance into the foramina.Needle tip positions were confirmed in at least two views. Injection of Omnipaque contrast revealedappropriate spread of the dye without vascular uptake. Next, at each site, 1.5 mL of 0.5% lidocaineand 5 mg dexamethasone were injected in divided doses through each needle tip. The needles were removed and the patient was then transferred to the recovery room in stable condition. The patient tolerated the procedure well. There were no apparent complications. FOLLOW UP: The patient will update us on their response to this procedure, and agrees to continue currently prescribed/recommended therapies. Complications: None; patient tolerated the procedure well. Disposition: home Condition: stable Additional Details: Attending Attestation: *No primary surgeon found* [facility] Work Phone: [phone]) [phone] History of Present illness Narrative* Florencia Hwang MA - 08/15/2023 2:20 PM EDT Subjective Patient ID: Narendra Arguelles is a 72 y.o. female who presents for coughing and spitting up yellow phlegm. Feels like it is in her left lung. This has been going on for about a week. Patient has takenOTC medication. Also SOB. Patient states her BP has been up. HPI Review of Systems Objective There were no vitals taken for this visit. Physical Exam Assessment/Plan * Jasmine Mathias MD - 08/15/2023 2:20 PM EDT Subjective Narendra Arguelles is a 72 y.o. female who presents for No chief complaint on file.. Here c/o cough, congestion, drainage for the past week. Getting worse, cough is productive of yellow sputum. No known fevers. Has had some headaches. Objective Visit Vitals BP 116/68 (BP Location: Left arm, Patient Position: Sitting, BP Cuff Size: Adult) Pulse 90 Physical Exam Vitals reviewed. Constitutional: General: She is not in acute distress. Cardiovascular: Rate and Rhythm: Normal rate and regular rhythm. Heart sounds: No murmur heard. Pulmonary: Effort: Pulmonary effort is normal. No respiratory distress. Breath sounds: Normal breath sounds. Skin: General: Skin is warm and dry. Neurological: General: No focal deficit present. Mental Status: She is alert. Mental status is at baseline. Assessment/Plan Problem List Items Addressed This Visit None Visit Diagnoses Acute sinusitis, recurrence not specified, unspecified location - Primary Relevant Medications azithromycin (Zithromax) 250 mg tablet Jasmine Mathias MD [facility] Phone: 1([phone]) 276-942905-20-2024 Instructions* Patient Instructions* Jasmine Mathias MD - 08/15/2023 2:20 PM EDT Will treat with Zpak. Follow up if no improvement or if she worsens. [facility] Work Phone: [phone] History of Present illness Narrative* Mauricio Mancilla PA-C - 08/09/2023 8:00 AM EDT Subjective Patient ID: Narendra Arguelles is a 72 y.o. female who presents for Back Pain (FUV MRI results. Todayshe is having pain in her bilat lower back that goes into her bilat legs in the side and front downto her feet rates her pain score 9-10/10, and describes as a muscle cramp/ache at rest and pain gets sharp and very hard to flower buncher or picker her legs due to the pain. She has been using a cane when the pain is bad the pain use to come and go but it is more frequent now. ) FABIANO score 74%. She is using tramadol and rest on her bad days along with Meloxicam and Gabapentin these use to give her relief but now not much helps onher bad days, she is hoping a shot will help her pain. Chula Silverman RN 08/09/23 7:51 AM Patient is a 72-year-old female. She has a past medical history significant for previous lumbar fusion, lumbar stenosis, lumbar neuritis, previous cervical fusion, neck pain, and cervical spondylosis. She is here today after undergoing an updated lumbar MRI. Most recently for her neck and radicular symptoms she underwent a C6/7 epidural steroid injection. This done on 03/04/2023 and gave her 85% relief. Her radicular symptoms are still improved At this time, she rates her lower back and leg pain an 8/10. She is hopeful to get an injection or something set up to try to get some relief of her lower back pain like this is currently limiting factor at this time. This is what is affecting her quality of life and her activities throughout the day. It is hard to flower buncher or picker her legs. They feel weak and heavy. She has done therapy in the past that did not help. She has had surgery. She states that another surgery was discussed with her but she just does not think she can do this. She states that the medications-gabapentin does give her some improvement but not enough. She uses meloxicam as well and tramadol given to her by her PCP. Review of Systems Constitutional: Negative. HENT: Negative. Eyes: Negative. Respiratory: Negative. Cardiovascular: Negative. Gastrointestinal: Negative. Endocrine: Negative. Genitourinary: Negative. Musculoskeletal: Positive for arthralgias, back pain, gait problem and myalgias. Skin: Negative. Allergic/Immunologic: Negative. Neurological: Positive for weakness and numbness. Hematological: Negative. Psychiatric/Behavioral: Negative. Objective Physical Exam Vitals and nursing note reviewed. Constitutional: Appearance: Normal appearance. HENT: Head: Normocephalic and atraumatic. Right Ear: External ear normal. Left Ear: External ear normal. Nose: Nose normal. Mouth/Throat: Pharynx: Oropharynx is clear. Eyes: Conjunctiva/sclera: Conjunctivae normal. Cardiovascular: Rate and Rhythm: Normal rate and regular rhythm. Pulses: Normal pulses. Pulmonary: Effort: Pulmonary effort is normal. Musculoskeletal: General: Normal range of motion. Cervical back: Normal range of motion. Comments: 5/5 lower extremity strength other than bilateral hip flexion 4/5 Skin: General: Skin is warm and dry. Neurological: General: No focal deficit present. Mental Status: She is alert and oriented to person, place, and time. Mental status is at baseline. Psychiatric: Mood and Affect: Mood normal. Behavior: Behavior normal. Thought Content: Thought content normal. Judgment: Judgment normal. MR lumbar spine wo IV contrast Status: Final result PACS Images Show images for MR lumbar spine wo IV contrast Signed by Signed Time Phone Pager Damari Gibson MD 07/27/2023 10:41 Exam Information Status Exam Begun Exam Ended Final 07/27/2023 07:15 07/27/2023 07:50 Study Result Narrative & Impression Interpreted By: Damari Gibson, STUDY: MR LUMBAR SPINE WO IV CONTRAST INDICATION: Signs/Symptoms:lower back and leg pain and legt fatigue. H/O fusion COMPARISON: Lumbar spine MRI 07/14/2018 ACCESSION NUMBER(S): [id number] ORDERING CLINICIAN: MAURICIO MANCILLA TECHNIQUE: Multiplanar multisequence MRI of the lumbar spine was performed without the administration of intravenous contrast, according to standard protocol. FINDINGS: ALIGNMENT: Stepwise retrolisthesis of T12 on L1 through L2 on L3. 4 mm grade 1 anterolisthesis of L5 on S1 . VERTEBRAE: Status post posterior decompression and fusion of L4-5 and L5-S1. DISCS: Multilevel disc desiccation. Moderate disc height loss from T12-L1 through L2-3. Mild disc height loss at L3-4. CONUS MEDULLARIS AND CAUDA EQUINA: The conus medullaris terminates at L1-2. Crowding of the cauda equina nerve roots at L2-3 secondary to degenerative change detailed further below. Remainder of the cauda equina nerve roots appear normal. PARAVERTEBRAL SOFT TISSUES AND VISUALIZED RETROPERITONEUM: The visualized paravertebral soft tissues appear within normal limits. EVALUATION OF INDIVIDUAL LEVELS: L1-2: Mild retrolisthesis with disc osteophyte complex asymmetric to the left and facet hypertrophy. Severe left foraminal stenosis and moderate right foraminal stenosis. There is mild narrowing of the spinal canal. L2-3: Retrolisthesis with disc osteophyte complex, facet hypertrophy, and infolding of ligamentum flavum. Severe narrowing of the spinal canal and bilateral foramina, [id number]-left. Crowding of the cauda equina nerve roots again noted. L3-4: Disc bulge with facet hypertrophy and infolding of ligamentum flavum resulting in moderate to severe bilateral foraminal stenosis and mild narrowing of the spinal canal. L4-5: Status post laminectomy. No canal or foraminal stenosis. L5-S1: Status post laminectomy and fusion. 4 mm grade 1 anterolisthesis uncovering of the posterior aspect of the disc and facet hypertrophy likely results in moderate bilateral foraminal stenosis though evaluation is limited given artifact from adjacent hardware. No canal stenosis. LIMITED EVALUATION OF UPPER SACRUM AND SACROILIAC JOINTS: Severe degenerative change of the left greater than right sacroiliac joints with fluid tracking within the left sacroiliac joint noted. Findings appear similar to previous MRI 07/14/2018. IMPRESSION: Status post laminectomy and fusion of L4-5 and L5-S1. Multilevel degenerative changes most prominent at L2-3 where there is severe narrowing of the spinal canal and bilateral foramina, right greater than left with crowding of the cauda equina nerve roots. There is also moderate to severe bilateral foraminal stenosis at L3-4. Findings appear grossly unchanged compared to previous MRI 07/14/2018. Signed by: Damari Gibson 07/27/2023 10:41 AM Dictation workstation: [id number] Assessment/Plan Diagnoses and all orders for this visit: Lumbosacral radiculopathy - Transforaminal; Future Neurogenic claudication due to lumbar spinal stenosis - Transforaminal; Future H/O arthrodesis Rheumatoid arthritis involving multiple sites, unspecified whether rheumatoid factor present (Multi) Other orders - Vital Signs; Standing - Vital Signs; Standing - Height and weight; Standing - POCT glucose meter docked device; Standing - FL less than 1 hour; Standing - iohexol (OMNIPaque) 300 mg iodine/mL solution 6 mL - lidocaine PF (Xylocaine) 20 mg/mL (2 %) injection 120 mg - lidocaine PF (Xylocaine) 20 mg/mL (2 %) injection 20 mg - sodium chloride (PF) 0.9% solution 1 mL - dexAMETHasone (PF) (Decadron) injection 10 mg Patient is a 72-year-old female with the above-mentioned medical diagnoses. At this time, her lowerback and leg symptoms are what are most bothersome to her. This is affecting her quality of life. This is affecting her activities. Is affecting her ability to do things she wants to do. We reviewed the MRI. We discussed different options. She really does not feel that surgery is something that shecould undergo at this time. She states that she had just such a hard time with the first when she does not think she could do this again. Based on her MRI findings, her pain pattern and her failure to improve with all reasonable conservative treatments which has included physical therapy we discussed bilateral L2-3 transforaminal epidural steroid injection under fluoroscopy for both diagnostic and therapeutic purposes. Patient denies any loss of bowel or bladder control. She denies any genital or anal numbness. She denies any red flag symptoms. We will pursue bilateral L2-3 transforaminal epid ural steroid injection and follow-up 2 weeks after. Diagnosis-M54.17-lumbosacral neuritis. Medication hold including meloxicam for 4 days was discussed. Follow- up as above-mentioned. In the meantime she will continue on gabapentin. OARRS reviewed. She is going to take 2 in the morning, 2 in the afternoon and 3 at bedtime. She will call in the interim should she require anything from us. [facility] Work Phone: [phone] 923-946905-14-2024 Instructions* Patient Instructions* Marva Delong RN - 08/09/2023 8:00 AM EDT Injection education completed written and verbally. [facility] Work Phone: [phone]) 962-477504-30-2024 History of Present illness Narrative* Mauricio Mancilla PA-C - 07/26/2023 8:00 AM EDT Subjective Patient ID: Narendra Arguelles is a 72 y.o. female who presents for Back Pain (FUV today reports having pain in her bilat lower back that goes in to her hips, pelvis and down bilat legs to her knees rates pain 7-8/10 now, describes as constant ache and is having trouble lifting her legs to walk as they feel heavy she has to sit and rest and eases the pain but does not go away. She takes tylenol andtramadol for pain these help so she can function, but by the end of the day her pain is so bad she cannot do anything else. ) and Neck Pain (Neck pain rates a 4-5/10 describes as crunching when she moves it around. It is not as bad as her lower back. ) Fabiano score 56% Falls x1 but catches her self and does not land on the ground eduction provided she feels it is do to her legs feeling heavy, Alcohol rare use negative. She will need a RF on GPN send to [facility]. Chula Silverman RN 07/26/23 8:08 AM Patient is a 72-year-old female. She has a past medical history significant for previous cervical fusion, neck pain, and cervical spondylosis. She is here today to once again discuss her lower back and leg pain. She also has a history of previous cervical fusion, adjacent level cervical stenosis and cervical neuritis. Patient has undergone previous transforaminal epidural as well as caudal epidurals in the lumbar spine with improvement. Most recently for her neck and radicular symptoms she underwent a C6/7 epidural steroid injection. This done on 03/04/2023 and gave her 85% relief. Her radicular symptoms are still improved but she has neck pain. We had discussed facet treatments but at this time she does not want to. She has trialed a multitude of [id number]-[id number] medications without improvement. At this time, she rates her lower back and leg pain an 8/10. Her neck pain is a 5/10. She is here today to discuss her lower back and leg pain as well as leg fatigue. She states that it is hard to flower buncher or picker her legs. They feel weak and heavy. She has done therapy in the past that did not help. She has had surgery. She states that another surgery was discussed with her but she just does not think she can do this. She states that the medications-gabapentin does give her some improvement but not enough. She wonders about possible injections as it has been a few years since her last 1. Review of Systems Constitutional: Negative. HENT: Negative. Eyes: Negative. Respiratory: Negative. Cardiovascular: Negative. Gastrointestinal: Negative. Endocrine: Negative. Genitourinary: Negative. Musculoskeletal: Positive for arthralgias, back pain, gait problem, myalgias and neck pain. Allergic/Immunologic: Negative. Neurological: Positive for weakness and numbness. Hematological: Negative. Psychiatric/Behavioral: Negative. Objective Physical Exam Vitals and nursing note reviewed. Constitutional: Appearance: Normal appearance. She is obese. HENT: Head: Normocephalic and atraumatic. Right Ear: External ear normal. Left Ear: External ear normal. Nose: Nose normal. Mouth/Throat: Pharynx: Oropharynx is clear. Eyes: Conjunctiva/sclera: Conjunctivae normal. Cardiovascular: Rate and Rhythm: Normal rate and regular rhythm. Pulses: Normal pulses. Pulmonary: Effort: Pulmonary effort is normal. Musculoskeletal: General: Normal range of motion. Cervical back: Normal range of motion. Comments: Pain with compression of the cervical facet joints Increased neck pain with facet loading 5/5 upper extremity strength 5/5 lower extremity strength other than bilateral hip flexion, ADF and EHL 4/5 Skin: General: Skin is warm and dry. Neurological: General: No focal deficit present. Mental Status: She is alert and oriented to person, place, and time. Mental status is at baseline. Psychiatric: Mood and Affect: Mood normal. Behavior: Behavior normal. Thought Content: Thought content normal. Judgment: Judgment normal. SPINE Status: Final result Signed by Signed Time Phone Pager Anshul Flood MD 05/01/2020 17:47 [id number] Exam Information Status Exam Begun Exam Ended Final 04/29/2020 14:45 04/29/2020 14:57 Study Result Narrative & Impression Patient Name: NARENDRA ARGUELLES STUDY: SPINE, LUMBOSACRAL CMPLT(BENDING); 04/29/2020 2:57 pm INDICATION: pain. COMPARISON: 11/01/2018 ACCESSION NUMBER(S): [id number] ORDERING CLINICIAN: NIRAV ALCANTAR FINDINGS: Multiple views of the lumbar spine are obtained. There is osteopenia with suboptimal visualization of the osseous details. Laminectomy changes and posterior hardware fusion of L4 and L5 vertebral bodies. Grade 1 anterolisthesis of L4 on L5, unchanged. Grade 1 retrolisthesis L2 on L3 and L1 on L2, apparently slightly progressed since the prior exam. Disc space loss throughout with endplate sclerosis and osteophytes. Post vertebroplasty changes of the sacrum. IMPRESSION: Prior fusion of the lower lumbar spine with multilevel listhesis and advanced discogenic degenerative changes as described. MR cervical spine wo IV contrast Status: Final result PACS Images Show images for MR cervical spine wo IV contrast Signed by Signed Time Phone Pager Damari Gibson MD 12/22/2022 09:43 Exam Information Status Exam Begun Exam Ended Final 12/21/2022 19:07 12/21/2022 19:42 Study Result Narrative Interpreted By: DAMARI GIBSON MD Patient Name: NARENDRA ARGUELLES STUDY: MRI CERVICAL WO INDICATION: neck pain COMPARISON: Cervical spine radiograph 11/11/2022. ACCESSION NUMBER(S): [id number] ORDERING CLINICIAN: MAURICIO MANCILLA TECHNIQUE: Multiplanar multisequence MR imaging of the cervical spine was performed without the administration of intravenous contrast, according to standard protocol. FINDINGS: ALIGNMENT: Slight reversal of usual cervical lordosis centered at C4-5. anterolisthesis of C3 on C4 and retrolisthesis of C4 on C5. VERTEBRAE: Status post ACDF of C5-6. No acute fracture or aggressive osseous lesion. Partial fusion of the C5 and C6 vertebral bodies noted. DISCS: Moderate to severe disc height loss at C4-5 and C6-7. Remaining discs are maintained. CORD: Slight flattening of the ventral aspect of the cord at C4-5 and to a lesser extent at C6-7 without associated cord signal abnormality. Remainder of the visualized cord is unremarkable. PARAVERTEBRAL SOFT TISSUES: Right thyroid lobe is visualized; left thyroid lobe is not visualized. EVALUATION OF INDIVIDUAL LEVELS: C2-3: No disc herniation spinal canal or neuroforaminal stenosis. C3-4: Slight anterolisthesis with superimposed disc osteophyte complex asymmetric to the right and facet hypertrophy. There is moderate right and mild left foraminal stenosis. There is mild narrowing of the spinal canal. C4-5: Slight retrolisthesis with superimposed disc osteophyte complex asymmetric to the left and facet hypertrophy. There is moderate right and mild left foraminal stenosis. There is mild narrowing of the spinal canal. C5-6: Osseous ridging and facet hypertrophy mildly narrow bilateral foramina. Spinal canal remains patent. C6-7: Disc osteophyte complex asymmetric to the left with facet hypertrophy and infolding of ligamentum flavum. Moderate narrowing of the spinal canal as well as severe left and moderate right foraminal stenosis. C7-T1: No disc herniation spinal canal or neuroforaminal stenosis. Impression Status post ACDF of C5-6. 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 This is more notable at C6-7 where there is moderate canal stenosis as well as severe left and moderate right foraminal stenosis. Slight flattening of the ventral aspect of the cord at C4-5 and C6-7 without associated cord signal abnormality. Assessment/Plan Diagnoses and all orders for this visit: Lumbosacral radiculopathy - XR lumbar spine 2-3 views; Future - MR lumbar spine wo IV contrast; Future Neurogenic claudication due to lumbar spinal stenosis - XR lumbar spine 2-3 views; Future - MR lumbar spine wo IV contrast; Future Spondylosis of lumbosacral region, unspecified spinal osteoarthritis complication status Cervical neuritis Rheumatoid arthritis involving multiple sites, unspecified whether rheumatoid factor present (Multi) S/P lumbar spinal fusion Degenerative disc disease, lumbar - gabapentin (Neurontin) 300 mg capsule; Take 2 capsules (600 mg) by mouth 3 times a day. Other chronic pain - gabapentin (Neurontin) 300 mg capsule; Take 2 capsules (600 mg) by mouth 3 times a day. Patient is a 72-year-old female. She has a past medical history significant for previous lumbar fusion, lumbar stenosis, lumbar neuritis, lumbar spondylosis, previous cervical fusion, cervical spondylosis, adjacent level cervical stenosis and cervical neuritis. Previous cervical epidural helped. Wediscussed facet injections at that time. She declined. She is here today as her lower back and leg pain is bothering her more. It has been a few years since she had any lumbar epidurals. They worked well for her in the past. She is having a lot of leg fatigue. I would like to assess the level of stenosis/neural compression that she has based on her leg fatigue. She has had a fall because she cannot flower buncher or picker her legs. At this time I would recommend a lumbar x-ray as well as MRI scan for possible other injection options versus surgical consultation depend on the results. Patient states that she would be very hesitant to have any more surgeries but would be agreeable to getting some sort of treatment done to get her legs feeling better. She will continue on gabapentin. OARRS reviewed. Refill sent. Follow-up after the imaging. Call the clinic sooner if necessary. documented in this [facility] Work Phone: [phone]) [phone] History of Present illness Narrative* Florencia Hwang MA - 05/13/2023 10:00 AM EST Subjective Patient ID: Narendra Arguelles is a 72 y.o. female who presents for 6 month check up and labs completed. Alprazolam, furosemide, tramadol, omeprazole,. Nortriptyline all needs refilled HPI Review of Systems Objective There were no vitals taken for this visit. Physical Exam Assessment/Plan * Jasmine Mathias MD - 05/13/2023 10:00 AM EST Subjective Reason for Visit: Narendra Arguelles is an 72 y.o. female here for a Medicare Wellness visit. Past Medical, Surgical, and Family History reviewed and updated in chart. Reviewed all medications by prescribing practitioner or clinical pharmacist (such as prescriptions,OTCs, herbal therapies and supplements) and documented in the medical record. Here for f/u HTN, high chol, GERD (Dr Moncada), osteoporosis, anxiety, chronic pain (Dr Alcantar), rheumatoid arthritis (Dr Chisholm), precancerous lesions on legs ([facility]) - all stable. She states that overall she is doing pretty well. She has been more tired lately, reviewed her recent labs and she is more anemic - she states that she will work on getting more iron. Advance directives:. Advanced Care Planning discussed and documented advance care plan or surrogatedecision maker documented in the medical record. Patient has living will. Patient has healthcare POA. She uses xanax prn for her anxiety and tramadol rarely for pain, has been on both for a long time, they work well, risks/benefits/alternatives have been discussed and considered. OARRS reviewed and is appropriate. Patient Care Team: Jasmine Mathias MD as PCP - General Jasmine Mathias MD as PCP - [facility] Att[place] Provider Objective Vitals: BP 122/76 (BP Location: Left arm, Patient Position: Sitting, BP Cuff Size: Adult) Pulse 72 Ht 1.549 m (5' 1) Wt 85.9 kg (189 lb 4.8 oz) BMI 35.77 kg/m Physical Exam Vitals reviewed. Constitutional: General: She is not in acute distress. Cardiovascular: Rate and Rhythm: Normal rate and regular rhythm. Heart sounds: No murmur heard. Pulmonary: Effort: Pulmonary effort is normal. No respiratory distress. Breath sounds: Normal breath sounds. Skin: General: Skin is warm and dry. Neurological: General: No focal deficit present. Mental Status: She is alert. Mental status is at baseline. Latest Reference Range & Units 05/06/23 06:33 GLUCOSE 74 - 99 mg/dL 94 SODIUM 136 - 145 mmol/L 141 POTASSIUM 3.5 - 5.3 mmol/L 4.5 CHLORIDE 98 - 107 mmol/L 104 Bicarbonate 21 - 32 mmol/L 32 Anion Gap 10 - 20 mmol/L 10 Blood Urea Nitrogen 6 - 23 mg/dL 26 (H) Creatinine 0.50 - 1.05 mg/dL 0.76 EGFR >60 mL/min/1.73m*2 84 Calcium 8.6 - 10.3 mg/dL 9.5 Albumin 3.4 - 5.0 g/dL 3.9 Alkaline Phosphatase 33 - 136 U/L 70 ALT 7 - 45 U/L 23 AST 9 - 39 U/L 26 Bilirubin Total 0.0 - 1.2 mg/dL 0.5 HDL CHOLESTEROL mg/dL 70.0 Cholesterol/HDL Ratio 2.1 LDL Calculated <=99 mg/dL 63 VLDL 0 - 40 mg/dL 16 TRIGLYCERIDES 0 - 149 mg/dL 81 Non HDL Cholesterol 0 - 149 mg/dL 79 Total Protein 6.4 - 8.2 g/dL 5.8 (L) CHOLESTEROL 0 - 199 mg/dL 149 Vitamin B12 211 - 911 pg/mL 575 Thyroid Stimulating Hormone 0.44 - 3.98 mIU/L 2.02 Vitamin D, 25-Hydroxy, Total 30 - 100 ng/mL 40 WBC 4.4 - 11.3 x10*3/uL 4.5 nRBC 0.0 - 0.0 /100 WBCs 0.0 RBC 4.00 - 5.20 x10*6/uL 3.63 (L) HEMOGLOBIN 12.0 - 16.0 g/dL 10.9 (L) HEMATOCRIT 36.0 - 46.0 % 34.8 (L) MCV 80 - 100 fL 96 MCH 26.0 - 34.0 pg 30.0 MCHC 32.0 - 36.0 g/dL 31.3 (L) RED CELL DISTRIBUTION WIDTH 11.5 - 14.5 % 15.1 (H) Platelets 150 - 450 x10*3/uL 274 Neutrophils % 40.0 - 80.0 % 53.2 Immature Granulocytes %, Automated 0.0 - 0.9 % 0.2 Lymphocytes % 13.0 - 44.0 % 31.0 Monocytes % 2.0 - 10.0 % 8.8 Eosinophils % 0.0 - 6.0 % 6.1 Basophils % 0.0 - 2.0 % 0.7 Neutrophils Absolute 1.60 - 5.50 x10*3/uL 2.37 Immature Granulocytes Absolute, Automated 0.00 - 0.50 x10*3/uL 0.01 Lymphocytes Absolute 0.80 - 3.00 x10*3/uL 1.38 Monocytes Absolute 0.05 - 0.80 x10*3/uL 0.39 Eosinophils Absolute 0.00 - 0.40 x10*3/uL 0.27 Basophils Absolute 0.00 - 0.10 x10*3/uL 0.03 (H): Data is abnormally high (L): Data is abnormally low Assessment/Plan Problem List Items Addressed This Visit Anxiety Relevant Medications ALPRAZolam (Xanax) 0.25 mg tablet Other Relevant Orders CBC and Auto Differential Comprehensive Metabolic Panel Lipid Panel TSH with reflex to Free T4 if abnormal Vitamin B12 Vitamin D 25-Hydroxy,Total (for eval of Vitamin D levels) Follow Up In Primary Care - Established Chronic pain Relevant Medications nortriptyline (Pamelor) 25 mg capsule traMADol (Ultram) 50 mg tablet Other Relevant Orders CBC and Auto Differential Comprehensive Metabolic Panel Lipid Panel TSH with reflex to Free T4 if abnormal Vitamin B12 Vitamin D 25-Hydroxy,Total (for eval of Vitamin D levels) Follow Up In Primary Care - Established Edema Relevant Medications furosemide (Lasix) 20 mg tablet Other Relevant Orders CBC and Auto Differential Comprehensive Metabolic Panel Lipid Panel TSH with reflex to Free T4 if abnormal Vitamin B12 Vitamin D 25-Hydroxy,Total (for eval of Vitamin D levels) Follow Up In Primary Care - Established GERD (gastroesophageal reflux disease) Relevant Medications omeprazole (PriLOSEC) [address] capsule Other Relevant Orders CBC and Auto Differential Comprehensive Metabolic Panel Lipid Panel TSH with reflex to Free T4 if abnormal Vitamin B12 Vitamin D 25-Hydroxy,Total (for eval of Vitamin D levels) Follow Up In Primary Care - Established HTN (hypertension) Relevant Orders CBC and Auto Differential Comprehensive Metabolic Panel Lipid Panel TSH with reflex to Free T4 if abnormal Vitamin B12 Vitamin D 25-Hydroxy,Total (for eval of Vitamin D levels) Follow Up In Primary Care - Established Hypercholesteremia Relevant Orders CBC and Auto Differential Comprehensive Metabolic Panel Lipid Panel TSH with reflex to Free T4 if abnormal Vitamin B12 Vitamin D 25-Hydroxy,Total (for eval of Vitamin D levels) Follow Up In Primary Care - Established Osteoporosis Relevant Orders CBC and Auto Differential Comprehensive Metabolic Panel Lipid Panel TSH with reflex to Free T4 if abnormal Vitamin B12 Vitamin D 25-Hydroxy,Total (for eval of Vitamin D levels) Follow Up In Primary Care - Established Primary generalized (osteo)arthritis Relevant Orders CBC and Auto Differential Comprehensive Metabolic Panel Lipid Panel TSH with reflex to Free T4 if abnormal Vitamin B12 Vitamin D 25-Hydroxy,Total (for eval of Vitamin D levels) Follow Up In Primary Care - Established Rheumatoid arthritis ([facility]) Relevant Orders CBC and Auto Differential Comprehensive Metabolic Panel Lipid Panel TSH with reflex to Free T4 if abnormal Vitamin B12 Vitamin D 25-Hydroxy,Total (for eval of Vitamin D levels) Follow Up In Primary Care - Established Class 2 severe obesity with serious comorbidity and body mass index (BMI) of 35.0 to 35.9 in adult ([facility]) Relevant Orders Follow Up In Primary Care - Established Other Visit Diagnoses Routine general medical examination at health care facility - Primary Relevant Orders CBC and Auto Differential Comprehensive Metabolic Panel Lipid Panel TSH with reflex to Free T4 if abnormal Vitamin B12 Vitamin D 25-Hydroxy,Total (for eval of Vitamin D levels) Vitamin D deficiency Relevant Orders CBC and Auto Differential Comprehensive Metabolic Panel Lipid Panel TSH with reflex to Free T4 if abnormal Vitamin B12 Vitamin D 25-Hydroxy,Total (for eval of Vitamin D levels) Follow Up In Primary Care - Established Encounter for screening mammogram for breast cancer Relevant Orders BI mammo bilateral screening tomosynthesis CBC and Auto Differential Comprehensive Metabolic Panel Lipid Panel TSH with reflex to Free T4 if abnormal Vitamin B12 Vitamin D 25-Hydroxy,Total (for eval of Vitamin D levels) [facility] Work Phone: [phone] History of Present illness Narrative* Roderick Jeter DPM - 05/05/2023 2:46 PM EST Patient: Narendra Arguelles Date of : 1950 (72 y.o.) PCP: Jasmine Mathias MD Procedures ASSESSMENT/PLAN: Narendra Arguelles 72 y.o. female with history of status post first MPJ fusion left foot and second toearthrodesis of the proximal to phalangeal joint doing well. 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 Plan: I placed valgus heel wedge in both orthotics to drop the corrective arch which helped patient's discomfort. Patient was given the option of cortisone shots but did not feel it was necessary. I explained to patient that ultimately she probably needs a midfoot fusion to help with the long-term arthritic symptoms. Patient and I both agreed we will go to get this 3 months with meloxicam and theorthotic corrections. Reappoint in 3 months Assessment & plan notes cannot be loaded without a specified hospital service. SUBJECTIVE: History Since Last Visit: Patient 72-year-old female status post first MPJ fusion of the left foot with second toe arthrodesis. Patient relates the surgical sites are both doing well. Patient relatesthe new power step inserts are uncomfortable because of the arch height. Patient has midfoot arthritis in both feet. Patient is taking Celebrex now meloxicam for the arthritic pain. Review of Systems: OBJECTIVE: Physical Examination: Integument-the scar is remodeling nicely on the dorsal aspects of the first MPJ and second toe arthrodesis of the left foot. Neuro-intact bilateral feet Musculoskeletal-decreased medial longitudinal arch both feet. Patient has bone spurring and tarsometatarsal joint along with midfoot arthritic changes of both feet. The joints are very stiff with crepitus. Vascular-DP and PT pulses are palpable bilateral feet. BP 124/81 (BP Location: Left arm, Patient Position: Sitting, BP Cuff Size: X- large Adult) Pulse 98 Temp 97.4 F (36.3 C) (Infrared) Laboratory and Additional Data Reviewed: Reviewed:[id number]} XR Foot Left 3+ Views (Standard) X-rays 3 views left foot: There is a completely fused first metatarsal phalangeal joint and a second proximal interphalangeal joint pseudo arthrodesis. There is significant degenerative arthritis of the tarsometatarsal joints which appears to be stable without change since x-rays earlier in the fall. documented in this [id number] History of Present illness Narrative* Roderick Jeter DPM - 03/24/2023 9:58 AM EST Patient: Narendra Arguelles Date of : 1950 (72 y.o.) PCP: Jasmine Mathias MD Procedures ASSESSMENT/PLAN: Narendra Arguelles 72 y.o. female with history of status post first MPJ fusion and second toe arthrodesis of the left foot doing well. Severe hallux valgus with contracted second hammertoe of the right foot. 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 Plan: I prescribed 1 pair of full-length functional orthotics to assist in her flatfoot and arthritic tarsometatarsal joint deformities. Patient was counseled she could walk for exercise or swim in the pool. We did discuss corrective bunion and second hammertoe surgery for the right foot and the sprain. Patient is going to get orthotics and wear wider shoes until then. Reappoint in 3 months Assessment & plan notes cannot be loaded without a specified hospital service. SUBJECTIVE: History Since Last Visit: Patient 72-year-old female comes in is very pleased with her first MPJ fusion and second toe arthrodesis of the left foot. Patient states both are doing well. Patient does have a bunion and second hammertoe on the right foot that she relates probably needs to be fixed but wants to hold off till the spring. Patient does have flatfoot deformity with arthritis of the tarsometatarsal joints. Review of Systems: OBJECTIVE: Physical Examination: Integument-the scars are remodeling nicely on the dorsum of the first and second toes of the left foot. Neuro-intact bilateral feet Musculoskeletal-fused first MPJ and second proximal interphalangeal joints of the left foot. Patient has a lateral deviated right hallux with a medial bony prominence of the first metatarsal head. First MPJ range of motion is somewhat tracked down on the right great toe. Patient has a contracted second proximal interphalange joint. There is a decreased medial longitudinal arch of both feet with limited motion of the tarsometatarsal joint due to arthritis. Vascular-DP and PT pulses are palpable bilateral feet. BP 133/80 (BP Location: Right arm, Patient Position: Sitting, BP Cuff Size: Adult) Pulse 82 Temp 97.3 F (36.3 C) (Infrared) Laboratory and Additional Data Reviewed: Reviewed:[id number]} XR Foot Left 3+ Views (Standard) Xray 3 views left foot- the 1st metatarsal phalangeal joint fusion is 85 healed. The 2nd toe proximal interphalangeal joint fusion is about 50% healed. 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 documented in this [id number] History of Present illness Narrative* Mauricio Mancilla PA-C - 04/05/2023 11:30 AM EST Subjective Patient ID: Narendra Arguelles is a 72 y.o. female who presents for Neck Pain (Patient following up from C7-T1 HERMELINDA that she had on 03/04/23. Patient states she got 85% relief of arm pain but only 35% relief neck pain from the injection. Patient states she hasn't noticed much of a difference with her neck pain. She rates her neck pain a 5/10 now and a 8-10/10 at it's worst. Patient states it still creeks and cracks. Patient states she has a stiffness in her neck. She does state the arm pain and numbness has went away. Patient states she still gets intermittent headaches but hasn't had as many lately.). Smoking score completed, negative. BMI NA due to age. Depression screen completed, negative. FABIANO score 26. Patient is a 72-year-old female. She has a past medical history significant for previous cervical fusion, neck pain, and cervical spondylosis. She is here today after undergoing a C6/7 epidural steroid injection. This done on 03/04/2023 and she states has given her 85% relief of her arm symptoms butonly 35% relief of her neck pain. She has trialed a multitude of ajar-lxq-gdybxbh medications without improvement. She rates her discomfort a 5/10. Depending on the weather and other things throughout the day it can get worse but right now, she is not sure how aggressive she wants to be. She is still dealing with her foot healing and she would still like some recovery time but did wonder what heroptions are for her neck pain. Review of Systems Constitutional: Negative. HENT: Negative. Eyes: Negative. Respiratory: Negative. Cardiovascular: Negative. Gastrointestinal: Negative. Endocrine: Negative. Genitourinary: Negative. Musculoskeletal: Positive for arthralgias, neck pain and neck stiffness. Skin: Negative. Allergic/Immunologic: Negative. Neurological: Negative. Hematological: Negative. Psychiatric/Behavioral: Negative. Objective Physical Exam Vitals and nursing note reviewed. Constitutional: Appearance: Normal appearance. She is obese. HENT: Head: Normocephalic and atraumatic. Right Ear: External ear normal. Left Ear: External ear normal. Nose: Nose normal. Mouth/Throat: Pharynx: Oropharynx is clear. Eyes: Pupils: Pupils are equal, round, and reactive to light. Cardiovascular: Rate and Rhythm: Normal rate and regular rhythm. Pulses: Normal pulses. Pulmonary: Effort: Pulmonary effort is normal. Musculoskeletal: General: Normal range of motion. Cervical back: Normal range of motion. Comments: Pain with compression of the cervical facet joints Increased neck pain with facet loading 5/5 upper extremity strength Skin: General: Skin is warm and dry. Neurological: General: No focal deficit present. Mental Status: She is alert and oriented to person, place, and time. Mental status is at baseline. Psychiatric: Mood and Affect: Mood normal. Behavior: Behavior normal. Thought Content: Thought content normal. Judgment: Judgment normal. MR cervical spine wo IV contrast Status: Final result PACS Images Show images for MR cervical spine wo IV contrast Signed by Signed Time Phone Pager Damari Gibson MD 12/22/2022 09:43 Exam Information Status Exam Begun Exam Ended Final 12/21/2022 19:07 12/21/2022 19:42 Study Result Narrative & Impression Interpreted By: DAMARI GIBSON MD Patient Name: NARENDRA ARGUELLES STUDY: MRI CERVICAL WO INDICATION: neck pain COMPARISON: Cervical spine radiograph 11/11/2022. ACCESSION NUMBER(S): [id number] ORDERING CLINICIAN: MAURICIO MANCILLA TECHNIQUE: Multiplanar multisequence MR imaging of the cervical spine was performed without the administration of intravenous contrast, according to standard protocol. FINDINGS: ALIGNMENT: Slight reversal of usual cervical lordosis centered at C4-5. anterolisthesis of C3 on C4 and retrolisthesis of C4 on C5. VERTEBRAE: Status post ACDF of C5-6. No acute fracture or aggressive osseous lesion. Partial fusion of the C5 and C6 vertebral bodies noted. DISCS: Moderate to severe disc height loss at C4-5 and C6-7. Remaining discs are maintained. CORD: Slight flattening of the ventral aspect of the cord at C4-5 and to a lesser extent at C6-7 without associated cord signal abnormality. Remainder of the visualized cord is unremarkable. PARAVERTEBRAL SOFT TISSUES: Right thyroid lobe is visualized; left thyroid lobe is not visualized. EVALUATION OF INDIVIDUAL LEVELS: C2-3: No disc herniation spinal canal or neuroforaminal stenosis. C3-4: Slight anterolisthesis with superimposed disc osteophyte complex asymmetric to the right and facet hypertrophy. There is moderate right and mild left foraminal stenosis. There is mild narrowing of the spinal canal. C4-5: Slight retrolisthesis with superimposed disc osteophyte complex asymmetric to the left and facet hypertrophy. There is moderate right and mild left foraminal stenosis. There is mild narrowing of the spinal canal. C5-6: Osseous ridging and facet hypertrophy mildly narrow bilateral foramina. Spinal canal remains patent. C6-7: Disc osteophyte complex asymmetric to the left with facet hypertrophy and infolding of ligamentum flavum. Moderate narrowing of the spinal canal as well as severe left and moderate right foraminal stenosis. C7-T1: No disc herniation spinal canal or neuroforaminal stenosis. IMPRESSION: Status post ACDF of C5-6. 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 This is more notable at C6-7 where there is moderate canal stenosis as well as severe left and moderate right foraminal stenosis. Slight flattening of the ventral aspect of the cord at C4-5 and C6-7 without associated cord signal abnormality. Assessment/Plan Diagnoses and all orders for this visit: Cervical neuritis Chronic pain syndrome Arthrodesis status Cervical spondylosis H/O arthrodesis Degenerative disc disease, lumbar - gabapentin (Neurontin) 300 mg capsule; Take 2 capsules (600 mg) by mouth 2 times a day. Other chronic pain - gabapentin (Neurontin) 300 mg capsule; Take 2 capsules (600 mg) by mouth 2 times a day. Patient is a 72-year-old female. She has a past medical history significant for previous cervical fusion, cervical spondylosis, adjacent level cervical stenosis and cervical neuritis. Patient underwent recent C6-7 epidural steroid injection. She obtained 85% relief of her arm pain but only 35% relief of her neck pain. We once again reviewed her MRI. Based on her MRI findings and her pain pattern I recommended facet injections. C3-4 and C4-5 for diagnostic purposes. If she gets significant shortrelief she may be future candidate for RFA. Procedure was discussed. At this time, patient declined. She does not feel that she wants to do this at this time. We discussed other options. At this time, she would like to just continue on her gabapentin. OARRS was reviewed. Refill was sent to the pharmacy. We discussed follow-up in 3 months and she can call our services sooner should she decide she wants to pursue the injection. Questions and concerns were all answered and discussed. Patient is agreeable. She will follow-up as above-mentioned. documented in this [facility] Work Phone: 1(235) 942-505812-08-2023 Miscellaneous Notes* Perioperative Nursing Note - Yasemin Grove RN - 03/04/2023 11:26 AM EST Taken to discharge elevator via w/c; driven home by brotherGregg. * Op Note - Matt Lombardo MD - 03/04/2023 10:10 AM EST * No procedures listed * Operative Note Date: 03/04/2023 OR Location: [place] [address] OR Name: Narendra Arguelles, : 1950, Age: 72 y.o., , Sex: female Diagnosis Cervical radiculopathy Procedures C7-T1 intralaminar cervical epidural steroid injection Surgeons Matt WISEMAN Resident/Fellow/Other Cardiology Associate: * No surgeons found in log * Procedure Summary Anesthesia: Local ASA: ASA status not filed in the log. Anesthesia Staff: Anesthesiologist: Matt Lombardo MD Estimated Blood Loss: 0 mL Intra-op Medications: * Intraprocedure medication information is unavailable because the case startand end events have not been set * Intraprocedure I/O Totals None Specimen: No specimens collected Staff: Machine Adjuster Leader: Manjula Dick RN Scrub Person: Monica Mckeon RN Drains and/or Catheters: * None in log * Tourniquet Times: Implants: Findings: N/A Indications: Narendra Arguelles is an 72 y.o. female who is having cervical epidural steroid injection due to cervical stenosis and cervical radiculitis. The patient was seen in the preoperative area. The risks, benefits, complications, treatment options, non-operative alternatives, expected recovery and outcomes were discussed with the patient. The possibilities of reaction to medication, pulmonary aspiration, injury to surrounding structures, bleeding, recurrent infection, the need for additional procedures, failure to diagnose a condition, and creating a complication requiring transfusion or operation were discussed with the patient. The patient concurred with the proposed plan, giving informed consent. The site of surgery was properly noted/marked if necessary per policy. The patient has been actively warmed in preoperative area. Preopera tive antibiotics are not indicated. Venous thrombosis prophylaxis are not indicated. Procedure Details: Patient was taken into the OR and placed on the OR table in prone position with pillows placed under the upper thoracic region to allow improved thoracic flexion. The T1-2 level was then identified and marked. The area was prepped with a chlorhexidine prep and draped. The skin and underlying tissue was anesthetized with 1% lidocaine. Then a 3.5 inch number 18-gauge Touhey needle was advanced into the C7-T1 epidural space with fluoroscopic A/P and lateral images and loss of resistance technique without complications. A total of 5 cc of Omnipaque-300 was injected with good epidurogram with appropriate spread of dye. After negative aspiration for blood was noted a total of 10 mg dexamethasone and 5 mL of sterile saline was injected without complication.The patient was then taken to the recovery room in stable condition. Complications: None; patient tolerated the procedure well. Disposition: PACU - hemodynamically stable. Condition: stable Additional Details: N/A Attending Attestation: *No primary surgeon found* [facility] Work Phone: 1(180) 335-275612-08-2023 Note* Perioperative Nursing Note - Yasemin Grove RN - 03/04/2023 11:26 AM EST Taken to discharge elevator via w/c; driven home by Gregg neil. [facility]12-08-2023 Note* Perioperative Nursing Note - Yasemin Grove RN - 03/04/2023 11:26 AM EST Taken to discharge elevator via w/c; driven home by Gregg neil. [facility]12-08-2023 History and physical note* Matt Lombardo MD - 03/04/2023 10:10 AM EST History Of Present Illness Narendra Arguelles is a 72 y.o. female presenting with a history of a C5-6 ACDF about 15 years ago. She has developed adjacent level disease above the level of the previous fusion with central stenosisand cervical radiculopathy. The patient is here today for a C7-T1 cervical epidural steroid injection with fluoroscopy. Past Medical History Past Medical History: Diagnosis Date Encounter for other screening for malignant neoplasm of breast Screening for breast cancer Encounter for screening for malignant neoplasm of colon Screen for colon cancer Encounter for screening for osteoporosis Osteoporosis screening Osteopenia Osteoporosis Pain in unspecified hip 02/19/2020 Hip pain, acute Personal history of diseases of the blood and blood-forming organs and certain disorders involving the immune mechanism 11/21/2019 History of anemia Surgical History Past Surgical History: Procedure Laterality Date BACK SURGERY CERVICAL FUSION 2007 anterior cervical discectomy with fusion c5-6 OTHER SURGICAL HISTORY 01/23/2019 Rosalva fundoplication laparoscopic OTHER SURGICAL HISTORY 01/23/2019 Hernia repair OTHER SURGICAL HISTORY 01/23/2019 Foot surgery OTHER SURGICAL HISTORY 01/23/2019 Back surgery OTHER SURGICAL HISTORY 01/23/2019 Rectocele repair OTHER SURGICAL HISTORY 01/23/2019 Total hysterectomy abdominal OTHER SURGICAL HISTORY 01/23/2019 Tonsillectomy OTHER SURGICAL HISTORY 01/23/2019 Appendectomy OTHER SURGICAL HISTORY 01/23/2019 Esophagogastroduodenoscopy OTHER SURGICAL HISTORY 01/23/2019 Salpingo-oophorectomy bilateral OTHER SURGICAL HISTORY 01/23/2019 Tubal ligation OTHER SURGICAL HISTORY 01/23/2019 Knee surgery OTHER SURGICAL HISTORY 08/15/2020 Epidural steroid injection OTHER SURGICAL HISTORY 05/02/2020 Epidural steroid injection OTHER SURGICAL HISTORY 04/29/2020 Hip replacement OTHER SURGICAL HISTORY 04/29/2020 Pelvic surgery Social History She reports that she has never smoked. She has never used smokeless tobacco. She reports that she does not drink alcohol and does not use drugs. Family History Family History Problem Relation Name Age of Onset Hypertension Mother Diabetes Mother Heart failure Mother Heart failure Father Heart failure Sister Hypertension Brother Heart failure Brother Diabetes Other grandparent Throat cancer Other uncle Allergies Amoxicillin-pot clavulanate, Codeine, and Morphine Review of Systems Constitutional: Negative. HENT: Negative. Eyes: Negative. Respiratory: Negative for cough, shortness of breath and wheezing. Cardiovascular: Negative for chest pain, palpitations and leg swelling. Endocrine: Negative. Genitourinary: Negative. Musculoskeletal: Positive for back pain, myalgias and neck pain. Negative for arthralgias. Skin: Negative. Allergic/Immunologic: Negative. Neurological: Negative for facial asymmetry, weakness and light-headedness. Hematological: Negative for adenopathy. Does not bruise/bleed easily. Psychiatric/Behavioral: Positive for sleep disturbance. Negative for dysphoric mood and suicidal ideas. Physical Exam Constitutional: General: She is not in acute distress. Appearance: Normal appearance. HENT: Head: Normocephalic. Mouth/Throat: Mouth: Mucous membranes are moist. Eyes: Extraocular Movements: Extraocular movements intact. Cardiovascular: Rate and Rhythm: Normal rate and regular rhythm. Pulses: Normal pulses. Heart sounds: Normal heart sounds. No murmur heard. No friction rub. No gallop. Pulmonary: Effort: Pulmonary effort is normal. Breath sounds: Normal breath sounds. No wheezing, rhonchi or rales. Abdominal: General: Abdomen is flat. Palpations: Abdomen is soft. Musculoskeletal: Cervical back: Normal range of motion. Right lower leg: No edema. Left lower leg: No edema. Lymphadenopathy: Cervical: No cervical adenopathy. Skin: General: Skin is warm and dry. Neurological: General: No focal deficit present. Mental Status: She is alert and oriented to person, place, and time. Mental status is at baseline. Psychiatric: Mood and Affect: Mood normal. Behavior: Behavior normal. Last Recorded Vitals Blood pressure 96/78, pulse 88, temperature 36.3 C (97.3 F), temperature source Temporal, resp. rate 16, height 1.549 m (5' 1), weight 83 kg (183 lb), SpO2 100 %. Assessment/Plan Active Problems: There are no active Hospital Problems. The risks and benefits of the C7-T1 cervical epidural steroid injection was discussed at length with the patient. The records and imaging were reviewed by me. The patient understood that there was noguarantee that the procedure will alleviate their pain. All questions were answered prior to leaving for the OR. The patient did receive 5 mg p.o. Valium for anxiety after the consent was obtained. This document was dictated and electronically signed using [employer] software. A reasonable attempt at proof reading was made to minimize errors. Please call with any questions. Matt Lombardo MD [facility] Work Phone: [phone]) 532-968212-08-2023 History and physical note* Matt Lombardo MD - 03/04/2023 10:10 AM EST History Of Present Illness Narendra Arguelles is a 72 y.o. female presenting with a history of a C5-6 ACDF about 15 years ago. She has developed adjacent level disease above the level of the previous fusion with central stenosisand cervical radiculopathy. The patient is here today for a C7-T1 cervical epidural steroid injection with fluoroscopy. Past Medical History Past Medical History: Diagnosis Date Encounter for other screening for malignant neoplasm of breast Screening for breast cancer Encounter for screening for malignant neoplasm of colon Screen for colon cancer Encounter for screening for osteoporosis Osteoporosis screening Osteopenia Osteoporosis Pain in unspecified hip 02/19/2020 Hip pain, acute Personal history of diseases of the blood and blood-forming organs and certain disorders involving the immune mechanism 11/21/2019 History of anemia Surgical History Past Surgical History: Procedure Laterality Date BACK SURGERY CERVICAL FUSION 2008 anterior cervical discectomy with fusion c5-6 OTHER SURGICAL HISTORY 01/23/2019 Rosalva fundoplication laparoscopic OTHER SURGICAL HISTORY 01/23/2019 Hernia repair OTHER SURGICAL HISTORY 01/23/2019 Foot surgery OTHER SURGICAL HISTORY 01/23/2019 Back surgery OTHER SURGICAL HISTORY 01/23/2019 Rectocele repair OTHER SURGICAL HISTORY 01/23/2019 Total hysterectomy abdominal OTHER SURGICAL HISTORY 01/23/2019 Tonsillectomy OTHER SURGICAL HISTORY 01/23/2019 Appendectomy OTHER SURGICAL HISTORY 01/23/2019 Esophagogastroduodenoscopy OTHER SURGICAL HISTORY 01/23/2019 Salpingo-oophorectomy bilateral OTHER SURGICAL HISTORY 01/23/2019 Tubal ligation OTHER SURGICAL HISTORY 01/23/2019 Knee surgery OTHER SURGICAL HISTORY 08/15/2020 Epidural steroid injection OTHER SURGICAL HISTORY 05/02/2020 Epidural steroid injection OTHER SURGICAL HISTORY 04/29/2020 Hip replacement OTHER SURGICAL HISTORY 04/29/2020 Pelvic surgery Social History She reports that she has never smoked. She has never used smokeless tobacco. She reports that she does not drink alcohol and does not use drugs. Family History Family History Problem Relation Name Age of Onset Hypertension Mother Diabetes Mother Heart failure Mother Heart failure Father Heart failure Sister Hypertension Brother Heart failure Brother Diabetes Other grandparent Throat cancer Other uncle Allergies Amoxicillin-pot clavulanate, Codeine, and Morphine Review of Systems Constitutional: Negative. HENT: Negative. Eyes: Negative. Respiratory: Negative for cough, shortness of breath and wheezing. Cardiovascular: Negative for chest pain, palpitations and leg swelling. Endocrine: Negative. Genitourinary: Negative. Musculoskeletal: Positive for back pain, myalgias and neck pain. Negative for arthralgias. Skin: Negative. Allergic/Immunologic: Negative. Neurological: Negative for facial asymmetry, weakness and light-headedness. Hematological: Negative for adenopathy. Does not bruise/bleed easily. Psychiatric/Behavioral: Positive for sleep disturbance. Negative for dysphoric mood and suicidal ideas. Physical Exam Constitutional: General: She is not in acute distress. Appearance: Normal appearance. HENT: Head: Normocephalic. Mouth/Throat: Mouth: Mucous membranes are moist. Eyes: Extraocular Movements: Extraocular movements intact. Cardiovascular: Rate and Rhythm: Normal rate and regular rhythm. Pulses: Normal pulses. Heart sounds: Normal heart sounds. No murmur heard. No friction rub. No gallop. Pulmonary: Effort: Pulmonary effort is normal. Breath sounds: Normal breath sounds. No wheezing, rhonchi or rales. Abdominal: General: Abdomen is flat. Palpations: Abdomen is soft. Musculoskeletal: Cervical back: Normal range of motion. Right lower leg: No edema. Left lower leg: No edema. Lymphadenopathy: Cervical: No cervical adenopathy. Skin: General: Skin is warm and dry. Neurological: General: No focal deficit present. Mental Status: She is alert and oriented to person, place, and time. Mental status is at baseline. Psychiatric: Mood and Affect: Mood normal. Behavior: Behavior normal. Last Recorded Vitals Blood pressure 96/78, pulse 88, temperature 36.3 C (97.3 F), temperature source Temporal, resp. rate 16, height 1.549 m (5' 1), weight 83 kg (183 lb), SpO2 100 %. Assessment/Plan Active Problems: There are no active Hospital Problems. The risks and benefits of the C7-T1 cervical epidural steroid injection was discussed at length with the patient. The records and imaging were reviewed by me. The patient understood that there was noguarantee that the procedure will alleviate their pain. All questions were answered prior to leaving for the OR. The patient did receive 5 mg p.o. Valium for anxiety after the consent was obtained. This document was dictated and electronically signed using [employer] software. A reasonable attempt at proof reading was made to minimize errors. Please call with any questions. Matt Lombardo MD documented in this [facility] Work Phone: 1(147) 245-518512-08-2023 Note* Op Note - Matt Lombardo MD - 03/04/2023 10:10 AM EST * No procedures listed * Operative Note Date: 03/04/2023 OR Location: [facility] OR Name: Narendra Arguelles, : 1950, Age: 72 y.o., , Sex: female Diagnosis Cervical radiculopathy Procedures C7-T1 intralaminar cervical epidural steroid injection Surgeons Matt Lombardo IIIMD Resident/Fellow/Other Cardiology Associate: * No surgeons found in log * Procedure Summary Anesthesia: Local ASA: ASA status not filed in the log. Anesthesia Staff: Anesthesiologist: Matt Lombadro MD Estimated Blood Loss: 0 mL Intra-op Medications: * Intraprocedure medication information is unavailable because the case startand end events have not been set * Intraprocedure I/O Totals None Specimen: No specimens collected Staff: Machine Adjuster Leader: Manjula Dick RN Scrub Person: Monica Mckeon RN Drains and/or Catheters: * None in log * Tourniquet Times: Implants: Findings: N/A Indications: Narendra Arguelles is an 72 y.o. female who is having cervical epidural steroid injection due to cervical stenosis and cervical radiculitis. The patient was seen in the preoperative area. The risks, benefits, complications, treatment options, non-operative alternatives, expected recovery and outcomes were discussed with the patient. The possibilities of reaction to medication, pulmonary aspiration, injury to surrounding structures, bleeding, recurrent infection, the need for additional procedures, failure to diagnose a condition, and creating a complication requiring transfusion or operation were discussed with the patient. The patient concurred with the proposed plan, giving informed consent. The site of surgery was properly noted/marked if necessary per policy. The patient has been actively warmed in preoperative area. Preopera tive antibiotics are not indicated. Venous thrombosis prophylaxis are not indicated. Procedure Details: Patient was taken into the OR and placed on the OR table in prone position with pillows placed under the upper thoracic region to allow improved thoracic flexion. The T1-2 level was then identified and marked. The area was prepped with a chlorhexidine prep and draped. The skin and underlying tissue was anesthetized with 1% lidocaine. Then a 3.5 inch number 18-gauge Touhey needle was advanced into the C7-T1 epidural space with fluoroscopic A/P and lateral images and loss of resistance technique without complications. A total of 5 cc of Omnipaque-300 was injected with good epidurogram with appropriate spread of dye. After negative aspiration for blood was noted a total of 10 mg dexamethasone and 5 mL of sterile saline was injected without complication.The patient was then taken to the recovery room in stable condition. Complications: None; patient tolerated the procedure well. Disposition: PACU - hemodynamically stable. Condition: stable Additional Details: N/A Attending Attestation: *No primary surgeon found* [facility] Work Phone: 1(185) 886-652512-08-2023 Note* Op Note - Matt Lombardo MD - 03/04/2023 10:10 AM EST * No procedures listed * Operative Note Date: 03/04/2023 OR Location: [place] [address] OR Name: Narendra Arguelles, : 1950, Age: 72 y.o., , Sex: female Diagnosis Cervical radiculopathy Procedures C7-T1 intralaminar cervical epidural steroid injection Surgeons Matt Lombardo IIIMD Resident/Fellow/Other Cardiology Associate: * No surgeons found in log * Procedure Summary Anesthesia: Local ASA: ASA status not filed in the log. Anesthesia Staff: Anesthesiologist: Matt Lombardo MD Estimated Blood Loss: 0 mL Intra-op Medications: * Intraprocedure medication information is unavailable because the case startand end events have not been set * Intraprocedure I/O Totals None Specimen: No specimens collected Staff: Machine Adjuster Leader: Manjlua Dick RN Scrub Person: Monica Mckeon RN Drains and/or Catheters: * None in log * Tourniquet Times: Implants: Findings: N/A Indications: Narendra Arguelles is an 72 y.o. female who is having cervical epidural steroid injection due to cervical stenosis and cervical radiculitis. The patient was seen in the preoperative area. The risks, benefits, complications, treatment options, non-operative alternatives, expected recovery and outcomes were discussed with the patient. The possibilities of reaction to medication, pulmonary aspiration, injury to surrounding structures, bleeding, recurrent infection, the need for additional procedures, failure to diagnose a condition, and creating a complication requiring transfusion or operation were discussed with the patient. The patient concurred with the proposed plan, giving informed consent. The site of surgery was properly noted/marked if necessary per policy. The patient has been actively warmed in preoperative area. Preopera tive antibiotics are not indicated. Venous thrombosis prophylaxis are not indicated. Procedure Details: Patient was taken into the OR and placed on the OR table in prone position with pillows placed under the upper thoracic region to allow improved thoracic flexion. The T1-2 level was then identified and marked. The area was prepped with a chlorhexidine prep and draped. The skin and underlying tissue was anesthetized with 1% lidocaine. Then a 3.5 inch number 18-gauge Touhey needle was advanced into the C7-T1 epidural space with fluoroscopic A/P and lateral images and loss of resistance technique without complications. A total of 5 cc of Omnipaque-300 was injected with good epidurogram with appropriate spread of dye. After negative aspiration for blood was noted a total of 10 mg dexamethasone and 5 mL of sterile saline was injected without complication.The patient was then taken to the recovery room in stable condition. Complications: None; patient tolerated the procedure well. Disposition: PACU - hemodynamically stable. Condition: stable Additional Details: N/A Attending Attestation: *No primary surgeon found* [facility] Work Phone: [phone]) 127-223811-30-2023 History of Present illness Narrative* Roderick Jeter DPM - 02/24/2023 1:10 PM EST Patient: Narendra Arguelles Date of : 1950 (72 y.o.) PCP: Jasmine Mathias MD Procedures ASSESSMENT/PLAN: Narendra Arguelles 72 y.o. female with history of status post arthrodesis of the first metatarsal phalange joint and second proximal interphalangeal joint of the left foot doing well. Plan: Patient was told she could return to stiff soled Ortega tennis shoes. Patient was given instructions on taping the second toe with Coban. Patient advised to return in 4 weeks for x-rays left foot. Assessment & plan notes cannot be loaded without a specified hospital service. SUBJECTIVE: History Since Last Visit: Patient is a 72-year-old female status post first MPJ fusion and second toe arthrodesis of the left foot x 6 weeks. Patient relates she is doing well without complaint. Patient is eager to get back into her Ortega tennis shoes if possible. Review of Systems: OBJECTIVE: Physical Examination: Integument-the scar is remodeling nicely on the first and second toes of the left foot. Neuro-intact left foot Musculoskeletal-patient does have some swelling of the tarsometatarsal joint of the left foot whereshe has osteoarthritis. The first metatarsal phalangeal joint on the left foot appears to be fused with no pain or motion noted. Patient second proximal interphalange joint appears fused has some swelling but no pain . Vascular-DP PT pulses are palpable bilateral feet. BP (!) 153/87 (BP Location: Left arm, Patient Position: Sitting, BP Cuff Size: Adult) Pulse 85 Temp 98.4 F (36.9 C) (Infrared) Laboratory and Additional Data Reviewed: Reviewed:[id number]} XR Foot Left 3+ Views (Standard) Xray 3 views left foot- the 1st metatarsal phalangeal joint fusion is 85 healed. The 2nd toe proximal interphalangeal joint fusion is about 50% healed. 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 documented in this [id number] Note* Addendum Note - Roderick Jeter DPM - 02/03/2023 2:41 PM ESTAddended by: RODERICK JETER on: 02/03/2023 02:41 PM Modules accepted: Orders [id number] Note* Addendum Note - Roderick Jeter DPM - 02/03/2023 2:41 PM ESTAddended by: RODERICK JETER on: 02/03/2023 02:41 PM Modules accepted: Orders [id number] Miscellaneous Notes* Addendum Note - Roderick Jeter DPM - 02/03/2023 2:41 PM ESTAddended by: RODERICK JETER on: 02/03/2023 02:41 PM Modules accepted: Orders documented in this [id number] History of Present illness Narrative* Roderick Jeter DPM - 02/03/2023 2:18 PM EST Patient: Narendra Arguelles Date of : 1950 (72 y.o.) PCP: Jasmine Mathias MD Procedures ASSESSMENT/PLAN: Narendra Arguelles 72 y.o. female with history of status post first MPJ fusion and second toe arthrodesis of the left foot healing well. Plan: I pulled the pin from the second toe on the left foot. I did pull 3 small stitches that stillremain in the great toe joint incision. Patient was told she can start getting the foot wet this weekend. I have asked her to continue with her cam walker boot and reappoint in 3 weeks for x-rays of the left foot. Refill of the Eliquis was given. Assessment & plan notes cannot be loaded without a specified hospital service. SUBJECTIVE: History Since Last Visit: Patient is a 72-year-old female seen at the office status post first MPJ fusion and second toe arthrodesis of the left foot x4 weeks. Patient is doing well and ready get herbeen out of her second toe left foot. Patient noted that when her eschar fell off the great toe incision there was a few stitches that still remain. Review of Systems: Type II diabetic OBJECTIVE: Physical Examination: Integument-there were 3 stitches in the incision line of the left first metatarsal phalange joint. The incisions were well coapted and healed nicely. Neuro-diminished left foot Musculoskeletal-stiff first metatarsal phalangeal joint and second proximal interphalange joint consistent with healing fusion of the left foot. Patient does have some degenerative arthritis with dorsal spurring of the tarsometatarsal joint of the left foot. Vascular-DP PT pulses palpable left foot. BP (!) 128/59 (BP Location: Left arm, Patient Position: Sitting, BP Cuff Size: Adult) Pulse (!) 106 Temp 97.9 F (36.6 C) (Infrared) Laboratory and Additional Data Reviewed: Reviewed:[id number]} XR Foot Left 3+ Views (Standard) Xray 3 views left foot- there is an arthrodesis 2nd proximal interphalangeal joint and 1st Metatarsal phalangeal joint with internal fixation. There is degenerative arthritis of the tarsal metatarsal joint with dorsal spur documented in this [id number] History of Present illness Narrative* Cintia Miller - 02/02/2023 11:00 AM EST Nurse Note: Review of Systems Cardiovascular: Negative for chest pain and palpitations. Gastrointestinal: Negative for nausea and vomiting. Musculoskeletal: Positive for neck pain. Negative for back pain. Neurological: Negative for numbness. Nursing Assessment: Physical Exam * Mary Carmen Tovar MD - 02/02/2023 11:00 AM EST History of Present Illness osteoporosis: This is a follow up visit to the office. She has a history of a spontaneous hip fracture approximately 2011. Approximately 2013, developed bilateral spontaneous pelvic fractures. No parental history of hip fracture. No history of nephrolithiasis. Patient was started on Forteo, she took the agent for 8 months, she was then switched to Medicare and the agent was unaffordable. Afterwards, for awhile was prescribed nasal calcitonin, Fosamax for short period of time with gastric upset and major gastric issues. Current Vitamin D level of 44 ng/mL. Normal renal function and calcium levels. she received her first dose of Reclast in January 2018 and again in 2018, 2019, 2020, and 2021. Left femur T-score =-2.0, left femoral neck T-score =-2.8, forearm T-score = -2.2. Patient suffered a foot fracture last month, director of field sales said her bones appeared to be very brittle in the foot. Additionally, she has neck hardware which is deteriorating and coming apart from bone. Multinodular goiter: It appears there is a history of a partial thyroidectomy for a large nodule. Thyroid levels are perfect. Neck ultrasound performed in fall of 2019 demonstrated a normal right thyroid lobe, left lobe and isthmus surgically absent. Objective Review of Systems Nurse Note: Review of Systems Cardiovascular: Negative for chest pain and palpitations. Gastrointestinal: Negative for nausea and vomiting. Musculoskeletal: Positive for neck pain. Negative for back pain. Neurological: Negative for numbness. Nursing Assessment: Physical Exam Vitals: Blood pressure 120/82, pulse 86, resp. rate 16, height 1.549 m (5' 1), weight 85.3 kg (188lb), SpO2 96 %. Physical Exam Constitutional: General: She is not in acute distress. Appearance: She is not diaphoretic. Comments: Currently in wheelchair with left foot in boot HENT: Head: Normocephalic. Neck: Comments: Necklace scar Cardiovascular: Rate and Rhythm: Normal rate. Pulmonary: Effort: Pulmonary effort is normal. No respiratory distress. Skin: General: Skin is warm and dry. Neurological: Mental Status: She is alert and oriented to person, place, and time. Psychiatric: Judgment: Judgment normal. Neurological Exam Mental Status Alert. Oriented to person, place, and time. Assessment and Plan Osteoporosis: C telopeptide remains elevated at 471, NTX = 30. Markers of bone turnover are not suppressed. She has suffered another fracture while on potent bisphosphonate therapy, and has neck hardware deteriorating from cervical spine. She did have 8 months of Forteo in the past, was discontinued due to expense. Given the severity of her disease, ongoing fracture with spine deterioration, would recommend continuing with Forteo, she does have another 12 months available to her. Given the severity of disease, would also like to use off- label use of Prolia concurrently. Would you standard dose of Prolia, and Forteo every other day. We discussed that this is off-label use and not FDA approved uses agents together, but multiple articles in the medical which him for demonstrating significant synergy between the 2 agents. Patient has not had radiation exposure. We will order. Multinodular goiter: No need for further ultrasonography unless a palpable abnormality is noted. [facility] History of Present illness Narrative* Mauricio Mancilla PA-C - 01/25/2023 9:15 AM EDT Subjective Patient ID: Narendra Arguelles is a 72 y.o. female who presents for Neck Pain (FUV MRI. Today reportshaving pain in her bilat neck R>L, she is getting migraines /BREWER lately not sure if it is relatedrates 5-6/10, describes as acing, tightness, and sore now and with increasing pain it will be sharp. She is taking ES Tylenol and stretching for the pain this helps a little with the pain but does not relieve it. She reports the pain affects her ADLs including personal care, lifting, sitting, sleeping, traveling, standing for 1 hour and walking 0.5 mile all causes increased pain. ). FABIANO score 44/100, ORT score 0, ETOH negative. She will need a RF on GPN send to [facility] mail order. Patient is a 72-year-old female. She has a past medical history significant for previous cervical fusion. She is here today after undergoing an updated cervical MRI scan. She continues to have neck pain with intermittent arm pain, numbness, tingling and intermittent weakness. She states that the numbness and tingling is not near what it was before her previous surgery so she would really like to try and be as conservative as possible but does wonder what her MRI shows and what her options are. Unfortunate, patient had an injury where she broke her left foot. She is still recovering from this.She is in a boot and is in a wheelchair for the appointment today. She has tried and failed all reasonable conservative treatments. She has undergone a full course of physical therapy without improvement. She has done a continued home exercise program without improvement. She has trialed a multitude of xfih-fpp-huoarap medications without improvement. She currently rates her discomfort a 5-610. Review of Systems Constitutional: Negative. HENT: Negative. Eyes: Negative. Respiratory: Negative. Cardiovascular: Negative. Gastrointestinal: Negative. Endocrine: Negative. Genitourinary: Negative. Musculoskeletal: Positive for arthralgias, back pain, gait problem, neck pain and neck stiffness. Skin: Negative. Allergic/Immunologic: Negative. Neurological: Positive for numbness. Hematological: Negative. Psychiatric/Behavioral: Negative. Objective Physical Exam Vitals and nursing note reviewed. Constitutional: Appearance: Normal appearance. She is obese. HENT: Head: Normocephalic and atraumatic. Right Ear: External ear normal. Left Ear: External ear normal. Nose: Nose normal. Mouth/Throat: Pharynx: Oropharynx is clear. Eyes: Pupils: Pupils are equal, round, and reactive to light. Cardiovascular: Rate and Rhythm: Normal rate and regular rhythm. Pulses: Normal pulses. Heart sounds: Normal heart sounds. Pulmonary: Effort: Pulmonary effort is normal. Breath sounds: Normal breath sounds. Musculoskeletal: General: Normal range of motion. Cervical back: Normal range of motion. Comments: 5/5 upper extremity strength 5/5 lower extremity strength other than a her foot which is in a boot. In a wheelchair Skin: General: Skin is warm and dry. Neurological: General: No focal deficit present. Mental Status: She is alert and oriented to person, place, and time. Mental status is at baseline. Psychiatric: Mood and Affect: Mood normal. Behavior: Behavior normal. Thought Content: Thought content normal. Judgment: Judgment normal. MR cervical spine wo IV contrast Status: Final result PACS Images Show images for MR cervical spine wo IV contrast Signed by Signed Time Phone Pager Damari Gibson MD 12/22/2022 09:43 Exam Information Status Exam Begun Exam Ended Final 12/21/2022 19:07 12/21/2022 19:42 Study Result Narrative & Impression Interpreted By: DAMARI GIBSON MD Patient Name: NARENDRA ARGUELLES STUDY: MRI CERVICAL WO INDICATION: neck pain COMPARISON: Cervical spine radiograph 11/11/2022. ACCESSION NUMBER(S): [id number] ORDERING CLINICIAN: MAURICIO MANCILLA TECHNIQUE: Multiplanar multisequence MR imaging of the cervical spine was performed without the administration of intravenous contrast, according to standard protocol. FINDINGS: ALIGNMENT: Slight reversal of usual cervical lordosis centered at C4-5. anterolisthesis of C3 on C4 and retrolisthesis of C4 on C5. VERTEBRAE: Status post ACDF of C5-6. No acute fracture or aggressive osseous lesion. Partial fusion of the C5 and C6 vertebral bodies noted. DISCS: Moderate to severe disc height loss at C4-5 and C6-7. Remaining discs are maintained. CORD: Slight flattening of the ventral aspect of the cord at C4-5 and to a lesser extent at C6-7 without associated cord signal abnormality. Remainder of the visualized cord is unremarkable. PARAVERTEBRAL SOFT TISSUES: Right thyroid lobe is visualized; left thyroid lobe is not visualized. EVALUATION OF INDIVIDUAL LEVELS: C2-3: No disc herniation spinal canal or neuroforaminal stenosis. C3-4: Slight anterolisthesis with superimposed disc osteophyte complex asymmetric to the right and facet hypertrophy. There is moderate right and mild left foraminal stenosis. There is mild narrowing of the spinal canal. C4-5: Slight retrolisthesis with superimposed disc osteophyte complex asymmetric to the left and facet hypertrophy. There is moderate right and mild left foraminal stenosis. There is mild narrowing of the spinal canal. C5-6: Osseous ridging and facet hypertrophy mildly narrow bilateral foramina. Spinal canal remains patent. C6-7: Disc osteophyte complex asymmetric to the left with facet hypertrophy and infolding of ligamentum flavum. Moderate narrowing of the spinal canal as well as severe left and moderate right foraminal stenosis. C7-T1: No disc herniation spinal canal or neuroforaminal stenosis. IMPRESSION: Status post ACDF of C5-6. 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 This is more notable at C6-7 where there is moderate canal stenosis as well as severe left and moderate right foraminal stenosis. Slight flattening of the ventral aspect of the cord at C4-5 and C6-7 without associated cord signal abnormality. Assessment/Plan Diagnoses and all orders for this visit: Neurogenic claudication due to lumbar spinal stenosis Cervical neuritis - diazePAM (Valium) 5 mg tablet; Take 1 tablet (5 mg) by mouth 1 time for 1 dose. One hour before procedure Chronic pain syndrome - diazePAM (Valium) 5 mg tablet; Take 1 tablet (5 mg) by mouth 1 time for 1 dose. One hour before procedure Cervical stenosis of spinal canal Cervical radiculitis Patient is a 72-year-old female. She has a past medical history significant for previous cervical fusion, adjacent level cervical stenosis and cervical neuritis. Patient has trialed and failed all reasonable conservative treatments. At this time, she continues to have neck pain with bilateral arm pain and intermittent numbness and tingling. Based on her MRI findings, her pain pattern, and her failure to improve with previous conservative treatments I recommended a C6-7 HERMELINDA under fluoroscopy. Procedure was discussed. Risk and benefits were discussed. Med holds were discussed. Patient will needto hold: Hold all supplements and vitamins 1 week before, as well as Hold meloxicam 4 days before patient will follow-up 2 weeks after the injection for reevaluation. Call the clinic sooner if necessary. [facility] Work Phone: 1(554) 491-596810-31-2023 Instructions* Patient Instructions* Marva Delong RN - 01/25/2023 9:15 AM EDT Injection education completed written and verbally. [facility]Day[facility] Work Phone: 1(710) 819-587010-26-2023 History of Present illness Narrative* Roderick Jeter DPM - 01/20/2023 2:36 PM EDT Patient: Narendra Arguelles Date of : 1950 (72 y.o.) PCP: Jasmine Mathias MD Procedures ASSESSMENT/PLAN: Narendra Arguelles 72 y.o. female with history of status post first MPJ fusion and second proximal interphalangeal joint fusions left foot doing well. Plan: I pulled the stitches from the first and second toes of the left foot. Alexx bandages reappliedalong with her new boot. Patient still to be nonweightbearing with a wheelchair. Patient to reappoint in 2 weeks to have x-rays and the pins are pulled from the left foot. Assessment & plan notes cannot be loaded without a specified hospital service. SUBJECTIVE: History Since Last Visit: Patient is a 72-year-old female seen in the office status post first MPJ arthrodesis and second proximal interphalangeal joint fusion of the left foot x2 weeks. Patient relates she is doing well and had a wheelchair since a knee scooter is not working for her. Review of Systems: OBJECTIVE: Physical Examination: Integument-the first and second toe incisions are clean dry and intact. No redness no drainage no odor no signs infection noted. Neuro-intact left foot Musculoskeletal-there is a pin in the second toe left foot. The left first and second toes are fusing in a rectus position with some swelling. Vascular-DP PT pulse are palpable left foot. Capillary fill time is less than 3 seconds with the toes being warm to touch. BP 131/79 (BP Location: Right arm, Patient Position: Sitting, BP Cuff Size: X- large Adult) Pulse 94 Temp 98.7 F (37.1 C) (Infrared) Laboratory and Additional Data Reviewed: Reviewed:[id number]} XR Foot Left 3+ Views (Standard) Xray 3 view left foot - there is a healing 1st MPJ and 2nd PIPJ fusions with hardware . documented in this [id number] History of Present illness Narrative* Roderick Jeter DPM - 01/07/2023 2:49 PM EDT Patient: Narendra Arguelles Date of : 1950 (72 y.o.) PCP: Jasmine Mathias MD Procedures ASSESSMENT/PLAN: Narendra Arguelles 72 y.o. female with history of status post first MPJ fusion and second toe arthrodesis with relocation of the MPJ on the left foot doing fairly well. Plan: Applied bacitracin and a bandage to the left foot. Patient was told to only put pressure on the heel for transfers only. Patient to be nonweightbearing otherwise. Patient was given prescriptionfor Keflex for some erythema concerning for postop infection. I have asked patient to return back in a week and a half to have her stitches removed from the left foot and new x-rays taken. If patientneeds a refill on her Percocet she is to call next Tuesday or Tuesday. Assessment & plan notes cannot be loaded without a specified hospital service. SUBJECTIVE: History Since Last Visit: Patient is a 72-year-old female who had a first MPJ arthrodesis and the second toe proximal interphalangeal joint fusion with relocation using pin fixation on the left foot.Patient relates she had a fair amount of pain yesterday but unfortunately only took 1 Percocet every 6 hours despite recommendations the day of surgery. Patient relates is doing a lot better today. Patient does have Eliquis that she is taking twice a day to prevent DVT. Review of Systems: OBJECTIVE: Physical Examination: Integument-there are some mild erythema of the most distal aspect incision of the left first metatarsophalangeal joint fusion incision. The second toe incision was dry clean and intact. Both toes were pink and warm on exam today. Neuro-intact left foot Musculoskeletal-fused first metatarsal phalange joint left foot, second proximal interphalangeal joint fusion with pin fixation on the left foot Vascular-DP and PT pulses palpable left foot. Capillary fill time is less than 3 seconds on toes 1 through 5 left foot. BP (!) 142/82 Pulse (!) 102 Temp 98.7 F (37.1 C) (Temporal) Laboratory and Additional Data Reviewed: Reviewed:[id number]} XR Foot Left 3+ Views (Standard) Xray 3 views left - there is a 1st MPJ is fused with plate and screw fixation. There is 2nd toe arthrodesis with relocation of the toe with pin fixation documented in this [id number] History of Present illness Narrative* Roderick Jeter DPM - 01/03/2023 12:13 PM EDT Podiatry Outpatient H&P 01/03/2023 Roderick Jeter DPM @HOSPITALNAME@ Patient: Narendra Arguelles Date of : 1950 (72 y.o.) PCP: Jasmine Mathias MD @[email or web address]@ ASSESSMENT/PLAN: Narendra Arguelles 72 y.o. female with history of dislocated second hammertoe and hallux valgus deformity of the left foot. Plan: Patient is scheduled for a first metatarsal phalangeal joint fusion to correct the hallux valgus deformity so there is some room to relocate the dislocated second hammertoe by a arthrodesis with pin fixation of the left foot. Patient will be in a cam walker boot only weight on the heel for transfers during the recovery of 6 to 8 weeks. I prescribed a knee scooter to keep pressure off the foot otherwise. Patient was explained risks and complication involved with surgery infection, bleeding, numbness, delayed healing, swelling, scar, DVT, pain and reoccurrence. After all questions were answered patient like to move forward surgery at this time. The consent form was signed preoperatively. Assessment & plan notes cannot be loaded without a specified hospital service. SUBJECTIVE: Chief Complaint/Reason for Visit: Patient 72-year-old female seen at the office today for a dislocated second hammertoe and a bunion crowding it. Patient injured the toe a little over a week ago and was sent for CT scan. History of Present Illness: Narendra Arguelles is a 72 y.o. female presenting from home with complaint of dislocated second hammertoe and bunion deformity left foot. Patient's been wearing CAM Walker boot Pain pressure on the heel. Patient is CT scan which confirmed my radiographic findings of a bunion with hallux valgus crowding a dislocated second hammertoe on the left foot. Patient wants to move forward with repair in the hammertoe and correcting the bunion. Review of Systems: Past Medical History: Diagnosis Date Anemia Anxiety Arthritis GERD (gastroesophageal reflux disease) Hiatal hernia 08/16/2017 Hill grade IV, moderate sized type III paraesophageal History of blood transfusion Hyperlipidemia Hypertension Obesity Osteoporosis Rheumatoid arthritis (HCC) Past Surgical History: Procedure Laterality Date APPENDECTOMY ARTHROSCOPY KNEE Left BACK SURGERY CHOLECYSTECTOMY COLONOSCOPY 01/28/2015 EGD N/A 12/21/2021 Procedure: ESOPHAGOGASTRODUODENOSCOPY WITH BIOPSY AND BALLOON DILATION.; Surgeon: Delvis Moncada MD; Location: [facility]; Service: General Surgery ESOPHAGEAL MANOMETRY 08/16/2017 ESOPHAGOGASTRODUODENOSCOPY 01/28/2017 Dr. Cabrera ESOPHAGOGASTRODUODENOSCOPY 08/16/2017 with biopsies...Dr. Moncada ESOPHAGOGASTRODUODENOSCOPY 11/15/2017 [facility]ATS 3D brush biopsy, Type 3 hernia....Dr Moncada foot spurs Bilateral HERNIA REPAIR HIATAL LAPAROSCOPIC 03/13/2018 [place] HIP FRACTURE SURGERY Right Dr Hernández HYSTERECTOMY with BSO LUMBAR FUSION MANDIBLE SURGERY ROSALVA FUNDOPLICATION 03/13/2018 [place] ROSALVA FUNDOPLICATION ROBOT ASSISTED N/A 02/15/2022 Procedure: REDO HIATAL HERNIA REPAIR WITH MESH AND REVISION OF ROSALVA FUNDOPLICATION to Spence ROBOTIC XI; Surgeon: Delvis Moncada MD; Location: Main OR; Service: Gen-Robotics POSTERIOR REPAIR OF RECTOCELE 2002 SHOULDER ARTHROSCOPY Bilateral TONSILLECTOMY TUBAL LIGATION US BIOPSY LYMPH NODE LEFT Family History Problem Relation Age of Onset Stroke Mother Diabetes Mother Hypertension Mother Heart failure Father Aneurysm Father Diabetes Sister Breast cancer Sister Cancer Sister Diabetes Brother Heart disease Brother Hypertension Brother Stomach cancer Maternal Grandmother Throat cancer Other Social History Tobacco Use Smoking Status Never Smokeless Tobacco Never Additional History Comments: None Allergies: Codeine and Morphine Current HOME Medications: Outpatient Medications Marked as Taking for the 01/03/23 encounter (Office Visit) with Roderick Jeter DPM: ALPRAZolam (XANAX) 0.25 MG tablet, Take 1 (one) tablet (0.25 mg total) by mouth 2 (two) times a dayas needed for sleep . atorvastatin (LIPITOR) 20 MG tablet, Take 1 (one) tablet (20 mg total) by mouth daily AM . cyclobenzaprine (FLEXERIL) 10 MG tablet, Take 0.5 Unspecified by mouth PRN . ferrous sulfate 325 (65 FE) MG EC tablet, Take 1 Unspecified by mouth daily AFTERNOON . folic acid (FOLVITE) 1 MG tablet, Take by mouth AFTERNOON . gabapentin (NEURONTIN) 300 MG capsule, Take 2 (two) capsules (600 mg total) by mouth 3 (three) times a day . leucovorin (WELLCOVORIN) 15 MG tablet, Take 1 (one) tablet (15 mg total) by mouth Once a week as needed . lisinopril (PRINIVIL,ZESTRIL) 5 MG tablet, Take 1 (one) tablet (5 mg total) by mouth daily AM . meloxicam (MOBIC) 15 MG tablet, Take 1 (one) tablet (15 mg total) by mouth daily AM . methotrexate (TREXALL) 2.5 MG tablet, Take 1 (one) tablet (2.5 mg total) by mouth once a week Takeson Tuesday AM . nortriptyline (PAMELOR) 25 MG capsule, Take 2 (two) capsules (50 mg total) by mouth nightly Reasons: take 2 tabs at bedtime. predniSONE (DELTASONE) 10 MG tablet, TAKE 1 TABLET BY MOUTH ONCE DAILY NEEDED. TAKE FOR 3 TO 5 DAYS WITH A FLARE. traMADol (ULTRAM) 50 mg tablet, Take 1 tablet (50 mg total) by mouth every 6 (six) hours as needed for pain. OBJECTIVE: Physical Examination: Integument-there is ecchymosis of the second toe on the left foot. Patient is some erythema on the medial side of first metatarsal head of the left foot. Neuro-intact left foot Musculoskeletal-lateral deviated left hallux with a medial bony prominence of the first metatarsal on the left foot. Patient has pain with first MPJ range of motion. Patient also has significant painand swelling of the second metatarsal phalange joint where there is a dorsal dislocation of the toe. Patient is got contracted toes 3 through 5 the left foot at the level of proximal to phalangeal joints but these did not appear to be painful. Vascular-DP PT pulses are palpable in the left foot. BP 132/87 (BP Location: Right arm, Patient Position: Sitting, BP Cuff Size: Adult) Pulse 80 Temp 98.2 F (36.8 C) (Infrared) Laboratory and Additional Data Reviewed: Reviewed 01/03/23 12:14 PM: Medications documented in this [id number] History of Present illness Narrative* Roderick Jeter DPM - 12/27/2022 12:12 PM EDT Patient: Narendra Arguelles Date of : 1950 (72 y.o.) PCP: Jasmine Mathias MD Procedures ASSESSMENT/PLAN: Narendra Arguelles 72 y.o. female with history of acutely dislocated second hammertoe, hallux valgus with bunion left foot. 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 Patient is to use her tramadol, rest, ice and elevate the left foot. I have ordered a CT scan to evaluate the bunion, the complete dislocation of the second hammertoe, arthritis with possible fracture of the tarsometatarsal joints on the left foot. I counseled patient that she likely will need a second proximal interphalangeal joint fusion with K wire fixation to relocate the completely dislocated hammertoe. I would also recommend doing a first metatarsal phalange joint arthrodesis so the dislocated second hammertoe can be corrected. Patient be in a cam walker boot for 6 weeks. Reappoint in 1 week for H&P Assessment & plan notes cannot be loaded without a specified hospital service. SUBJECTIVE: History Since Last Visit: Patient 72-year-old female who was walking and felt a pop in her left forefoot which created bruising in her first 3 toes. She went to the [facility] where x-rays were performed and was placed in a boot. Patient relates she could hardly walk due to the pain in the first 3toes left foot. Patient has a longstanding history of arthritis, bunion and contracted hammertoes of digits 2 and 3 on the left foot. Review of Systems: OBJECTIVE: Physical Examination: Integument-there is ecchymosis of the first second and third toes of the left foot. Neuro-intact left foot Musculoskeletal-lateral deviated left hallux with a medial bony prominence of the first metatarsal head. Patient has a completely dislocated second metatarsal phalange joint with proximal interphalangeal joint contracture that is painful to touch.. She also has a contracted third proximal interphalangeal joint with crepitus with metatarsal plantar joint range of motion on the left foot. Patient has a dorsal bony prominence of the tarsometatarsal joint of the left foot. Patient had some minor pain and swelling over this area as well. Vascular-DP and PT pulses palpable left foot BP 132/84 (BP Location: Right arm, Patient Position: Sitting, BP Cuff Size: Adult) Pulse 75 Temp 98.6 F (37 C) (Infrared) Laboratory and Additional Data Reviewed: Reviewed:[id number]} ECG 12 Lead Normal sinus rhythm Normal ECG Confirmed by Gage Martinez MD ([id number]) on 02/16/2022 11:19:20 AM documented in this [id number] Emergency department Note* Jasmine Mccormick PA-C - 12/26/2022 3:15 PM EDT HPI Chief Complaint Patient presents with Fall Left foot injury. Tripped and landed wrong on left foot. Pain in left toes. Did not hit head. NO LOC Patient is a 72-year-old female who presents to the emergency department with a chief complaint of a left foot injury. Patient states that she was walking up the stairs, tripped, and injured her leftfoot. She has pain mainly to her left great toe along with her second and third toe. She denies anyother injuries. She denies hitting her head or loss of consciousness. No chest pain or shortness of breath. No additional symptoms. History provided by: Patient No data recorded Patient History Past Medical History: Diagnosis Date Encounter for other screening for malignant neoplasm of breast Screening for breast cancer Encounter for screening for malignant neoplasm of colon Screen for colon cancer Encounter for screening for osteoporosis Osteoporosis screening Osteopenia Osteoporosis Pain in unspecified hip 02/19/2020 Hip pain, acute Personal history of diseases of the blood and blood-forming organs and certain disorders involving the immune mechanism 11/21/2019 History of anemia Past Surgical History: Procedure Laterality Date OTHER SURGICAL HISTORY 01/23/2019 Rosalva fundoplication laparoscopic OTHER SURGICAL HISTORY 01/23/2019 Hernia repair OTHER SURGICAL HISTORY 01/23/2019 Foot surgery OTHER SURGICAL HISTORY 01/23/2019 Back surgery OTHER SURGICAL HISTORY 01/23/2019 Rectocele repair OTHER SURGICAL HISTORY 01/23/2019 Total hysterectomy abdominal OTHER SURGICAL HISTORY 01/23/2019 Tonsillectomy OTHER SURGICAL HISTORY 01/23/2019 Appendectomy OTHER SURGICAL HISTORY 01/23/2019 Esophagogastroduodenoscopy OTHER SURGICAL HISTORY 01/23/2019 Salpingo-oophorectomy bilateral OTHER SURGICAL HISTORY 01/23/2019 Tubal ligation OTHER SURGICAL HISTORY 01/23/2019 Knee surgery OTHER SURGICAL HISTORY 08/15/2020 Epidural steroid injection OTHER SURGICAL HISTORY 05/02/2020 Epidural steroid injection OTHER SURGICAL HISTORY 04/29/2020 Hip replacement OTHER SURGICAL HISTORY 04/29/2020 Pelvic surgery Family History Problem Relation Name Age of Onset No Known Problems Mother No Known Problems Father Social History Tobacco Use Smoking status: Never Smokeless tobacco: Never Vaping Use Vaping Use: Never used Substance Use Topics Alcohol use: Never Drug use: Never Physical Exam ED Triage Vitals Temp Heart Rate Resp BP 12/26/22 1537 12/26/22 1537 12/26/22 1537 12/26/22 1537 36.4 C (97.6 F) 86 17 (!) 163/139 SpO2 Temp Source Heart Rate Source Patient Position 12/26/22 1537 12/26/22 1537 12/26/22 1604 12/26/22 1604 96 % Oral Monitor Lying BP Location FiO2 (%) -- -- Physical Exam Vitals and nursing note reviewed. Constitutional: General: She is not in acute distress. Appearance: She is well-developed. HENT: Head: Normocephalic and atraumatic. Eyes: Conjunctiva/sclera: Conjunctivae normal. Cardiovascular: Rate and Rhythm: Normal rate and regular rhythm. Heart sounds: No murmur heard. Pulmonary: Effort: Pulmonary effort is normal. No respiratory distress. Breath sounds: Normal breath sounds. Abdominal: Palpations: Abdomen is soft. Tenderness: There is no abdominal tenderness. Musculoskeletal: General: Swelling present. No deformity. Cervical back: Neck supple. Left foot: Decreased range of motion. Normal capillary refill. Swelling and tenderness present. No deformity. Normal pulse. Comments: Left great toe, second toe, and third toe about the MCP joint shows tenderness. Full range of motion although pain with range of motion. Distal pulses are strong and capillary refills less than 2 seconds. Skin: General: Skin is warm and dry. Capillary Refill: Capillary refill takes less than 2 seconds. Neurological: Mental Status: She is alert. Psychiatric: Mood and Affect: Mood normal. ED Course & MDM ED Course as of 12/26/221823 Sun Dec 26, 2022 1652 XR foot left 3+ views [KM] 1652 XR foot left 3+ views [KM] 1652 I independently interpreted the x-ray of the left foot and not appreciate an obvious fracture or dislocation. [KM] 1715 XR foot left 3+ views [KM] ED Course User Index [KM] Jasmine Mccormick PA-C Diagnoses as of 12/26/22 182 Fall, initial encounter Contusion of left foot, initial encounter Medical Decision Making Amount and/or Complexity of Data Reviewed Radiology: ordered and independent interpretation performed. Details: I independently interpreted the x-ray of the left foot and not appreciate an obvious fracture or dislocation. Risk OTC drugs. Procedure Procedures Jasmine Mccormick PA-C 12/26/22 182 Jasmine Mccormick PA-C 12/26/221829 * Molly Rucker RN - 12/26/2022 3:15 PM EDT Pt states that she was walking into her house in her slippers when she tripped and landed on her left foot incorrectly. Pt rates pain 10/10. Denies hitting head or LOC. documented in this [facility] Work Phone: 1(873) 473-788810-01-2023 Emergency department Triage note* Molly Rucker RN - 12/26/2022 3:15 PM EDT Pt states that she was walking into her house in her slippers when she tripped and landed on her left foot incorrectly. Pt rates pain 10/10. Denies hitting head or LOC. [facility] Work Phone: 1(265) 178-129010-01-2023 Physician Emergency department Note* Jasmine Mccormick PA-C - 12/26/2022 3:15 PM EDT HPI Chief Complaint Patient presents with Fall Left foot injury. Tripped and landed wrong on left foot. Pain in left toes. Did not hit head. NO LOC Patient is a 72-year-old female who presents to the emergency department with a chief complaint of a left foot injury. Patient states that she was walking up the stairs, tripped, and injured her leftfoot. She has pain mainly to her left great toe along with her second and third toe. She denies anyother injuries. She denies hitting her head or loss of consciousness. No chest pain or shortness of breath. No additional symptoms. History provided by: Patient No data recorded Patient History Past Medical History: Diagnosis Date Encounter for other screening for malignant neoplasm of breast Screening for breast cancer Encounter for screening for malignant neoplasm of colon Screen for colon cancer Encounter for screening for osteoporosis Osteoporosis screening Osteopenia Osteoporosis Pain in unspecified hip 02/19/2020 Hip pain, acute Personal history of diseases of the blood and blood-forming organs and certain disorders involving the immune mechanism 11/21/2019 History of anemia Past Surgical History: Procedure Laterality Date OTHER SURGICAL HISTORY 01/23/2019 Rosalva fundoplication laparoscopic OTHER SURGICAL HISTORY 01/23/2019 Hernia repair OTHER SURGICAL HISTORY 01/23/2019 Foot surgery OTHER SURGICAL HISTORY 01/23/2019 Back surgery OTHER SURGICAL HISTORY 01/23/2019 Rectocele repair OTHER SURGICAL HISTORY 01/23/2019 Total hysterectomy abdominal OTHER SURGICAL HISTORY 01/23/2019 Tonsillectomy OTHER SURGICAL HISTORY 01/23/2019 Appendectomy OTHER SURGICAL HISTORY 01/23/2019 Esophagogastroduodenoscopy OTHER SURGICAL HISTORY 01/23/2019 Salpingo-oophorectomy bilateral OTHER SURGICAL HISTORY 01/23/2019 Tubal ligation OTHER SURGICAL HISTORY 01/23/2019 Knee surgery OTHER SURGICAL HISTORY 08/15/2020 Epidural steroid injection OTHER SURGICAL HISTORY 05/02/2020 Epidural steroid injection OTHER SURGICAL HISTORY 04/29/2020 Hip replacement OTHER SURGICAL HISTORY 04/29/2020 Pelvic surgery Family History Problem Relation Name Age of Onset No Known Problems Mother No Known Problems Father Social History Tobacco Use Smoking status: Never Smokeless tobacco: Never Vaping Use Vaping Use: Never used Substance Use Topics Alcohol use: Never Drug use: Never Physical Exam ED Triage Vitals Temp Heart Rate Resp BP 12/26/22 1537 12/26/22 1537 12/26/22 1537 12/26/22 1537 36.4 C (97.6 F) 86 17 (!) 163/139 SpO2 Temp Source Heart Rate Source Patient Position 12/26/22 1537 12/26/22 1537 12/26/22 1604 12/26/22 1604 96 % Oral Monitor Lying BP Location FiO2 (%) -- -- Physical Exam Vitals and nursing note reviewed. Constitutional: General: She is not in acute distress. Appearance: She is well-developed. HENT: Head: Normocephalic and atraumatic. Eyes: Conjunctiva/sclera: Conjunctivae normal. Cardiovascular: Rate and Rhythm: Normal rate and regular rhythm. Heart sounds: No murmur heard. Pulmonary: Effort: Pulmonary effort is normal. No respiratory distress. Breath sounds: Normal breath sounds. Abdominal: Palpations: Abdomen is soft. Tenderness: There is no abdominal tenderness. Musculoskeletal: General: Swelling present. No deformity. Cervical back: Neck supple. Left foot: Decreased range of motion. Normal capillary refill. Swelling and tenderness present. No deformity. Normal pulse. Comments: Left great toe, second toe, and third toe about the MCP joint shows tenderness. Full range of motion although pain with range of motion. Distal pulses are strong and capillary refills less than 2 seconds. Skin: General: Skin is warm and dry. Capillary Refill: Capillary refill takes less than 2 seconds. Neurological: Mental Status: She is alert. Psychiatric: Mood and Affect: Mood normal. ED Course & MDM ED Course as of 12/26/22 1824 Sun Dec 26, 2022 1652 XR foot left 3+ views [KM] 1652 XR foot left 3+ views [KM] 1652 I independently interpreted the x-ray of the left foot and not appreciate an obvious fracture or dislocation. [KM] 1715 XR foot left 3+ views [KM] ED Course User Index [KM] Jasmine Mccormick PA-C Diagnoses as of 12/26/221823 Fall, initial encounter Contusion of left foot, initial encounter Medical Decision Making Amount and/or Complexity of Data Reviewed Radiology: ordered and independent interpretation performed. Details: I independently interpreted the x-ray of the left foot and not appreciate an obvious fracture or dislocation. Risk OTC drugs. Procedure Procedures Jasmine Mccormick PA-C 12/26/221823 Jasmine Mccormick PA-C 12/26/22 183 [facility] Work Phone: [phone] 159-465609-21-2023 History of Present illness Narrative* On a scale of 0 to 10, the patient rates the pain at 7. * Pain Location: Neck Pain. * Pain Quality: Throbbing. * Pain Radiation: Radiates into bilateral shoulders. * Sensory/ Motor: None. * Timing/Duration: Constant and > 12 weeks duration. * Exacerbating Factors: Turning head. * Alleviating Factors: None. * 24 Hour Behavior: * Symptoms are the same in the am. * Symptoms are the same as the day progresses. * Symptoms are the same in the pm. * Symptoms are the same when lying down. * Psychosocial Factors vs Last Visit: * Physical Functioning: Worse. * Family Relationships: Same. * Social Relationships: Same. * Mood: Same. * Sleep Patterns: Worse. * Overall Functioning: Worse. * Patient is a 72-year-old female. She presents today after a few year hiatus. She is here today withdifferent complaints though. She is having neck pain with bilateral arm pain, numbness, weakness, tingling, and balance issues. This all started 4 months ago without any incident or trauma. * Patient has a history of cervical fusion back 20 years ago or so. She cannot exactly remember when.4 months ago she began to notice an increase of the above-mentioned symptoms as well as headaches that she rates a 7/10. Patient states that in fact yesterday, she was going to do something and before she knew it she was on the ground. She had fallen down. She saw her PCP recently for the neck painand had an x-ray. Since that appointment to now she has noticed the issues with fine motor skills, balance issues, and intermittent arm weakness. She is here today to discuss different options. -[facility] Work Phone: 1([phone]) 336-524009-13-2023 History of Present illness Narrative* Yanely Jones LPN - 12/08/2022 1:20 PM EDT Sinus congestion, BREWER and cough x 2-3 days * Ana Estrada MD - 12/08/2022 1:20 PM EDT Subjective Narendra Arguelles is a 72 y.o. female who presents for Sinus Problem. Sinus Problem Pt of [place] with 2-3 days of nasal congestion, full facial pressure, and cough. Feels like needs to blow nose, but not a lot of mucous. Voice hoarse, sneezing. No fevers/chills, no shortness of breath. On methotrexate for RA. On daily otc pill for allergies Review of Systems All other systems reviewed and are negative. . Objective Visit Vitals BP 128/78 Pulse 56 Physical Exam Vitals and nursing note reviewed. Constitutional: General: She is not in acute distress. Appearance: Normal appearance. She is not toxic-appearing. HENT: Head: Normocephalic and atraumatic. Right Ear: Tympanic membrane normal. Left Ear: Tympanic membrane normal. Mouth/Throat: Mouth: Mucous membranes are moist. Pharynx: No oropharyngeal exudate or posterior oropharyngeal erythema. Cardiovascular: Rate and Rhythm: Normal rate and regular rhythm. Heart sounds: No murmur heard. Pulmonary: Effort: Pulmonary effort is normal. Breath sounds: Normal breath sounds. Musculoskeletal: Cervical back: Neck supple. No rigidity. Comments: Normal gait Skin: General: Skin is warm and dry. Neurological: General: No focal deficit present. Mental Status: She is alert and oriented to person, place, and time. Psychiatric: Mood and Affect: Mood normal. Behavior: Behavior normal. Assessment/Plan Problem List Items Addressed This Visit None Visit Diagnoses Seasonal allergies - Primary Relevant Medications azithromycin (Zithromax) 500 mg tablet Ana Estrada MD [facility]: [phone]) [phone] Instructions* Patient Instructions* Ana Estrada MD - 12/08/2022 1:20 PM EDT I think this is allergies or viral, I do not think an antibiotic will help you. Add flonase otc to your allergy pill . If persists or worsens as we discussed fill the antibiotic. Call concerns . [facility] Work Phone: [phone]) 112-134108-16-2023 History of Present illness Narrative* Florencia Hwang MA - 11/10/2022 10:00 AM EDT Subjective Patient ID: Narendra Arguelles is a 72 y.o. female who presents for 6 month follow up. Having lower back pain and as well as having neck pain. HPI Review of Systems Objective There were no vitals taken for this visit. Physical Exam Assessment/Plan * Jasmine Mathias MD - 11/10/2022 10:00 AM EDT Subjective Narendra Arguelles is a 72 y.o. female who presents for No chief complaint on file.. Here for f/u HTN, high chol, GERD (Dr Moncada), osteoporosis, anxiety, chronic pain (Dr Alcantar), rheumatoid arthritis (Dr Chisholm), precancerous lesions on legs ([facility]) - all stable. She states that overall she is doing pretty well. She has been having some issues with her neck for quite awhile and would like to get an Xray. She states that she has some bladder pressure in the morning and having some low back pain. She is drinking more water, no pain. She uses xanax prn for her anxiety and tramadol rarely for pain, has been on both for a long time, they work well, risks/benefits/alternatives have been discussed and considered. OARRS reviewed and is appropriate. Objective Visit Vitals BP 112/74 Physical Exam Vitals reviewed. Constitutional: General: She is not in acute distress. Cardiovascular: Rate and Rhythm: Normal rate and regular rhythm. Heart sounds: No murmur heard. Pulmonary: Effort: Pulmonary effort is normal. No respiratory distress. Breath sounds: Normal breath sounds. Skin: General: Skin is warm and dry. Neurological: General: No focal deficit present. Mental Status: She is alert. Mental status is at baseline. Latest Reference Range & Units 11/02/22 06:30 GLUCOSE 74 - 99 mg/dL 92 SODIUM 136 - 145 mmol/L 140 POTASSIUM 3.5 - 5.3 mmol/L 4.3 CHLORIDE 98 - 107 mmol/L 106 Bicarbonate 21 - 32 mmol/L 31 Anion Gap 10 - 20 mmol/L 7 (L) Blood Urea Nitrogen 6 - 23 mg/dL 21 Creatinine 0.50 - 1.05 mg/dL 0.79 Calcium 8.6 - 10.3 mg/dL 9.5 Albumin 3.4 - 5.0 g/dL 3.9 Alkaline Phosphatase 33 - 136 U/L 66 ALT 7 - 45 U/L 21 AST 9 - 39 U/L 29 Bilirubin Total 0.0 - 1.2 mg/dL 0.6 HDL CHOLESTEROL mg/dL 64.0 Cholesterol/HDL Ratio 2.1 VLDL 0 - 40 mg/dL 18 TRIGLYCERIDES 0 - 149 mg/dL 90 Total Protein 6.4 - 8.2 g/dL 6.4 CHOLESTEROL 0 - 199 mg/dL 134 LDL 0 - 99 mg/dL 52 Vitamin B12 211 - 911 pg/mL 612 Thyroid Stimulating Hormone 0.44 - 3.98 mIU/L 2.38 WBC 4.4 - 11.3 x10E9/L 5.0 RBC 4.00 - 5.20 x10E12/L 3.76 (L) HEMOGLOBIN 12.0 - 16.0 g/dL 11.5 (L) HEMATOCRIT 36.0 - 46.0 % 37.5 MCV 80 - 100 fL 100 MCHC 32.0 - 36.0 g/dL 30.7 (L) Platelets 150 - 450 x10E9/L 252 Neutrophils % 40.0 - 80.0 % 65.1 Immature Granulocytes %, Automated 0.0 - 0.9 % 0.4 Lymphocytes % 13.0 - 44.0 % 20.1 Monocytes % 2.0 - 10.0 % 8.8 Eosinophils % 0.0 - 6.0 % 5.2 Basophils % 0.0 - 2.0 % 0.4 Neutrophils Absolute 1.60 - 5.50 x10E9/L 3.24 Lymphocytes Absolute 0.80 - 3.00 x10E9/L 1.00 Monocytes Absolute 0.05 - 0.80 x10E9/L 0.44 Eosinophils Absolute 0.00 - 0.40 x10E9/L 0.26 Basophils Absolute 0.00 - 0.10 x10E9/L 0.02 RED CELL DISTRIBUTION WIDTH 11.5 - 14.5 % 14.5 GFR Female >90 mL/min/1.73m2 80 (L): Data is abnormally low Assessment/Plan Problem List Items Addressed This Visit None Visit Diagnoses Neck pain - Primary Relevant Orders XR cervical spine complete 4-5 views Jasmine Mathias MD documented in this [facility] Work Phone: [phone] 746-944208-16-2023 Instructions* Patient Instructions* Jasmine Mathias MD - 11/10/2022 10:00 AM EDT Continue current medications. Follow up with specialists as scheduled. Follow up in 6 months, sooner if needed. documented in this [facility] Work Phone: [phone]) 449-953707-06-2023 History of Present illness Narrative* Florencia Hwang MA - 09/30/2022 2:40 PM EDT Subjective Patient ID: Narendra Arguelles is a 71 y.o. female who presents for follow up to broken rib. Would like pain medicine and muscle relaxer cyclobenzapr she is using old medication from 2020 HPI Review of Systems Objective There were no vitals taken for this visit. Physical Exam Assessment/Plan * Jasmine Mathias MD - 09/30/2022 2:40 PM EDT Subjective Narendra Arguelles is a 71 y.o. female who presents for No chief complaint on file.. Here for f/u recent ER visit for rib pain. She states that she was sitting on her porch and leaned forward and felt a pull in the right ribs, it gradually got worse and she went to [facility] on Tuesday and they sent her to get Xrays and she does have a rib fracture right 5th rib. She was given an IS to help prevent pneumonia. She declined pain medication at the time as she had some at home, but she would like to get a refill of her tramadol and muscle relaxer. Objective Visit Vitals BP 150/82 (BP Location: Left arm, Patient Position: Sitting, BP Cuff Size: Adult) Pulse 82 Physical Exam Vitals reviewed. Constitutional: General: She is not in acute distress. Cardiovascular: Rate and Rhythm: Normal rate and regular rhythm. Heart sounds: No murmur heard. Pulmonary: Effort: Pulmonary effort is normal. No respiratory distress. Breath sounds: Normal breath sounds. Skin: General: Skin is warm and dry. Neurological: General: No focal deficit present. Mental Status: She is alert. Mental status is at baseline. Assessment/Plan Problem List Items Addressed This Visit None Visit Diagnoses Closed fracture of one rib of right side, initial encounter - Primary Relevant Medications traMADol (Ultram) 50 mg tablet cyclobenzaprine (Flexeril) 10 mg tablet Jasmine Mathias MD [facility]: [phone]) 976-109401-11-2023 History of Present illness Narrative* Delvis Moncada MD - 04/07/2022 8:59 AM EST [facility] PATIENT: Narendra Marcelino Patel DATE / TIME: 04/07/22 8:59 AM POS: Office AGE: 71 y.o. : 1950 RACE: [1] SEX: female PCP: Jasmine Mathias MD REFERRAL: No ref. provider found TOS: SUBJECTIVE: The patient returns for second postoperative visit after undergoing a robotic assisted laparoscopicredo hiatal hernia repair with mesh and revision of Rosalva fundoplication to Spence fundoplication.Overall she is doing well. She is tolerating a regular diet. She denies heartburn, regurgitation, or meaningful dysphagia. OBJECTIVE: BP (!) 160/89 Pulse 88 Ht 5' 1 Wt 78.6 kg (173 lb 4.8 oz) SpO2 93% BMI 32.74 kg/m ASSESSMENT: Postop follow-up PLAN: Diet and activity as tolerated Follow-up as needed documented in this [id number] History of Present illness Narrative* Maira Hamilton CNP - 03/02/2022 8:33 AM EST [facility] PATIENT: Narendra Marcelino Patel DATE / TIME: 03/02/22 8:42 AM POS: Office AGE: 71 y.o. : 1950 RACE: [1] SEX: female PCP: Jasmine Mathias MD REFERRAL: No ref. provider found SUBJECTIVE: Patient presents for first post operative visit after undergoing a robotic assisted laparoscopic redo hiatal hernia repair with mesh and revision of Rosalva fundoplication. Denies heartburn, regurgitation, and dysphagia. Tolerating a full liquid diet. She did try mashed potatoes without issues. Weight is stable. OBJECTIVE: BP (!) 143/88 Pulse 76 Wt 77.6 kg (171 lb) SpO2 100% BMI 32.31 kg/m Abdomen soft, nontender, nondistended. Incisions well approximated with mj. ASSESSMENT: S/P Robotic assisted laparoscopic redo hiatal hernia repair with mesh and revision of Rosalva fundoplication PLAN: Diet per [facility] protocol Continue lifting restrictions [place] removed Follow up with Dr. Moncada in 4 weeks documented in this [id number] History of Present illness Narrative* Delvis Moncada MD - 01/21/2022 11:23 AM EDT [facility] [address] ([address]) [facility] [address] [facility] [id number] Narendra Arguelles is a 71 y.o. female being seen on 01/21/22 for Chief Complaint Patient presents with Follow-up CT scan HPI: The patient returns after undergoing a CAT scan of the abdomen and pelvis. The CAT scan shows a recurrent hiatal hernia with a portion of her prior fundoplication at and above the crural opening of the diaphragm. She continues to report heartburn, regurgitation, and mild esophageal dysphagia. She is taking acid suppression therapy to help control her symptoms. She has a known history of a large type III paraesophageal hiatal hernia which I repaired in July 2017. She has also undergone a recent esophagram which showed evidence of delayed clearance through her fundoplication and the recurrent hiatal hernia. She underwent an EGD which showed what appeared to be an intact fundoplication. Past Medical History: Diagnosis Date Anxiety Arthritis Hiatal hernia 08/16/2017 Hill grade IV, moderate sized type III paraesophageal Hyperlipidemia Hypertension Obesity Osteoporosis Past Surgical History: Procedure Laterality Date APPENDECTOMY ARTHROSCOPY KNEE Left CHOLECYSTECTOMY COLONOSCOPY 01/28/2015 EGD N/A 12/21/2021 Procedure: ESOPHAGOGASTRODUODENOSCOPY WITH BIOPSY AND BALLOON DILATION.; Surgeon: Delvis Moncada MD; Location: [facility]; Service: General Surgery ESOPHAGEAL MANOMETRY 08/16/2017 ESOPHAGOGASTRODUODENOSCOPY 01/28/2017 Dr. Cabrera ESOPHAGOGASTRODUODENOSCOPY 08/16/2017 with biopsies...Dr. Moncada ESOPHAGOGASTRODUODENOSCOPY 11/15/2017 [facility] 3D brush biopsy, Type 3 hernia....Dr Moncada foot spurs HERNIA REPAIR HIATAL LAPAROSCOPIC 03/13/2018 [facility] HIP FRACTURE SURGERY Right Dr Hernández HYSTERECTOMY with BSO LUMBAR FUSION MANDIBLE SURGERY ROSALVA FUNDOPLICATION 03/13/2018 [facility] POSTERIOR REPAIR OF RECTOCELE 2002 SHOULDER ARTHROSCOPY Bilateral TONSILLECTOMY TUBAL LIGATION US BIOPSY LYMPH NODE LEFT Allergies Allergen Reactions Codeine Other reaction(s): Upset stomach and cramps Morphine Chest pain felt like having a heart attack Current Outpatient Medications Medication Sig Dispense Refill ALPRAZolam (XANAX) 0.25 MG tablet Take 0.25 mg by mouth 2 (two) times a day as needed for sleep. atorvastatin (LIPITOR) 20 MG tablet Take 20 mg by mouth daily . cyclobenzaprine (FLEXERIL) 10 MG tablet Take 0.5 Unspecified by mouth . ferrous sulfate 325 (65 FE) MG EC tablet Take 1 Unspecified by mouth daily . folic acid (FOLVITE) 1 MG tablet Take by mouth . gabapentin (NEURONTIN) 300 MG capsule Take 300 mg by mouth 4 (four) times a day . leucovorin (WELLCOVORIN) 15 MG tablet Take 15 mg by mouth once a week . lisinopril (PRINIVIL,ZESTRIL) 5 MG tablet Take 5 mg by mouth daily . meloxicam (MOBIC) 15 MG tablet Take 15 mg by mouth daily. methotrexate (TREXALL) 2.5 MG tablet Take by mouth Tuesday, Tuesday, Tuesday . nortriptyline (PAMELOR) 25 MG capsule Take 25 mg by mouth nightly Reasonstake 2 tabs at bedtime. omeprazole (PRILOSEC) 40 MG capsule Take 1 (one) capsule (40 mg total) by mouth daily . 30 capsule 1 predniSONE (DELTASONE) 10 MG tablet TAKE 1 TABLET BY MOUTH ONCE DAILY NEEDED. TAKE FOR 3 TO 5 DAYS WITH A FLARE. traMADol (ULTRAM) 50 mg tablet Take 1 tablet (50 mg total) by mouth every 6 (six) hours as needed for pain. 60 tablet 0 No current facility-administered medications for this visit. Social History Tobacco Use Smoking status: Former Smokeless tobacco: Never Substance Use Topics Alcohol use: No Alcohol/week: 0.0 standard drinks Drug use: No Family History Problem Relation Age of Onset Stroke Mother Diabetes Mother Hypertension Mother Heart failure Father Aneurysm Father Heart disease Brother Hypertension Brother Stomach cancer Maternal Grandmother Diabetes Sister Throat cancer Other REVIEW OF SYSTEMS Pertinent positives are listed in HPI, PMSH, SH, ALL, otherwise all systems reviewed below are negative. The following systems were reviewed: [x] Const (fevers, chills, wt. loss, fatigue) [x] CV (HTN, CP, BULLOCK, edema, DVT) [x] Resp (SOB, pleurisy, asthma, apnea) [x] GI (N, V, D, C, M, abd pain, appetite) [x] Musc (back pain, joint stiffness, gout) [x] Neuro (seizures, syncope, paralysis) [x] Psych (depression, anxiety) [x] Endo (hot/cold intol, polyuria[DM]) [x] Hem/Lymph (Anemia, LA, bleeding) [x] Allerg/Immun (seasonal, immuniz) [x] Eyes (diplopia, cataracts) [x] ENT/mouth (dysphagia, epistaxis) [x] (dysuria, hematuria) [x] Skin/Breast (moles, rash, lumps, nipple changes) Pertinent Positives: See HPI Pertinent Negatives: See HPI Physical Exam: BP (!) 167/99 Pulse 70 Ht 5' 1 Wt 76.8 kg (169 lb 6.4 oz) SpO2 98% BMI 32.01 kg/m Body mass index is 32.01 kg/m . Constitutional: Well nourished, well developed person in no acute distress. Ambulates without difficulty. Head: Atraumatic and normocephalic. Face: Within normal limits. Eyes: Pupils equal, round, reactive to light. Sclera white. Mouth: Moist mucous membranes, normal dentation. Neck: supple, trachea midline,no masses, no incisions. Lymphatic: No cervical or inguinal lymphadenopathy. Heart: Regular rate and rhythm. Lungs: Clear to auscultation. Abdomen: Soft, non-distended, non-tender, no heptasplenomegaly, no umbilica, incisional, femoral, or inguinal hernias. Pelvis: Stable, non-tender. Skin: Warm, moist, normal skin turgor. Peripheral Vascular: Palapable carotid, radial, and femoral pulses, no peripheral edema. Neuropsych: Alert and oriented, judgement and insight intact. Normal Gait. Assessment: 1. Hiatal hernia with GERD without esophagitis No orders of the defined types were placed in this encounter. Plan: Schedule robotic assisted laparoscopic redo hiatal hernia repair with possible revision of Rosalva fundoplication. Risk, benefits, and alternatives were discussed with the patient detail prior to obtaining consent. Delvis Moncada MD documented in this [id number] History of Present illness Narrative* Emiliano Rocha - 01/04/2022 9:00 AM EDT Nurse Note: Review of Systems Constitutional: Positive for fatigue. Negative for unexpected weight change. Respiratory: Negative for cough and shortness of breath. Cardiovascular: Negative for chest pain and palpitations. Gastrointestinal: Positive for nausea and vomiting. Endocrine: Negative for cold intolerance and heat intolerance. Musculoskeletal: Negative for back pain and neck pain. Neurological: Negative for weakness and numbness. Nursing Assessment: Physical Exam * Mary Carmen Tovar MD - 01/04/2022 9:00 AM EDT History of Present Illness osteoporosis: This is a follow up visit to the office. She has a history of a spontaneous hip fracture approximately 2011. Approximately 2013, developed bilateral spontaneous pelvic fractures. No parental history of hip fracture. No history of nephrolithiasis. Patient was started on Forteo, she took the agent for 8 months, she was then switched to Medicare and the agent was unaffordable. Since that time, she is only been taking nasal calcitonin. Took Fosamax for short period of time with gastric upset and major gastric issues. Current Vitamin D level of 54 ng/mL. Normal renal function and calcium levels. she received her first dose of Reclast in January 2018 and in January 2019 without adverse reaction. Bone mineral density test performed in July 2019 demonstrates improvement of the leftfemoral neck from T score -2.8 up to T score -2.5. Left forearm T score = -3.7. Current 25-hydroxy vitamin D level = 49 ng/mL with normal kidney function. She is due for her 5th Reclast infusion in January of 2022. C telopeptide pending, she has not yet had her bone mineral density test in 2021. Multinodular goiter: It appears there is a history of a partial thyroidectomy for a large nodule. Thyroid levels are perfect. Neck ultrasound performed in fall demonstrated a normal right thyroid lobe, left lobe and isthmus surgically absent. Review of Systems Nurse Note: Review of Systems Constitutional: Positive for fatigue. Negative for unexpected weight change. Respiratory: Negative for cough and shortness of breath. Cardiovascular: Negative for chest pain and palpitations. Gastrointestinal: Positive for nausea and vomiting. Endocrine: Negative for cold intolerance and heat intolerance. Musculoskeletal: Negative for back pain and neck pain. Neurological: Negative for weakness and numbness. Nursing Assessment: Physical Exam Vitals: Blood pressure 138/84, pulse 78, resp. rate 16, height 1.562 m (5' 1.5), weight 76.7 kg (169 lb 3.2 oz). Physical Exam Constitutional: General: She is not in acute distress. Appearance: She is not diaphoretic. HENT: Head: Normocephalic. Neck: Thyroid: No thyromegaly. Trachea: No tracheal deviation. Comments: Necklace scar, no palpable thyroid nodule, no lymphadenopathy Cardiovascular: Rate and Rhythm: Normal rate and regular rhythm. Heart sounds: Normal heart sounds. No murmur heard. Pulmonary: Effort: No respiratory distress. Breath sounds: No wheezing. Lymphadenopathy: Cervical: No cervical adenopathy. Skin: General: Skin is warm and dry. Neurological: Mental Status: She is alert and oriented to person, place, and time. Psychiatric: Judgment: Judgment normal. Neurological Exam Mental Status Alert. Oriented to person, place, and time. Assessment and Plan Osteoporosis: We will await C telopeptide and arrange for her follow-up bone mineral density test. If appropriate, we will arrange for her 5th infusion of Reclast in January 2022. She will telephonelater this month after her bone mineral density test. Multinodular goiter: No need for further ultrasonography unless a palpable abnormality is noted. [facility] History of Present illness Narrative* Delvis Moncada MD - 11/26/2021 8:46 AM EDT [facility] [address] ([address]) [facility] [address] [facility] [address] Narendra Arguelles is a 71 y.o. female being seen on 11/26/21 for Chief Complaint Patient presents with Dysphagia HPI: The patient presents today with a complaint of progressively worsening esophageal dysphagia. She underwent a laparoscopic hiatal hernia repair with Rosalva fundoplication on 03/13/2018 for a type III paraesophageal hiatal hernia. She did well after surgery. She had very infrequent episodes of mild esophageal dysphagia. Over the past year she has been experiencing increased issues with esophageal dysphagia. She is currently having the sensation of food is getting hung up in her esophagus multipletimes per week. Sometimes she will throw the food back up. Other times she will just throw up thickfrothy secretions. She does not have the sensation of regurgitation. She is having occasional heartb urn. She is had no diagnostic testing. She has not tried any [id number] medications. She tells me that bread and dense meat are the most difficult things to swallow. Past Medical History: Diagnosis Date Anxiety Arthritis Hiatal hernia 08/16/2017 Hill grade IV, moderate sized type III paraesophageal Hyperlipidemia Hypertension Obesity Osteoporosis Past Surgical History: Procedure Laterality Date APPENDECTOMY ARTHROSCOPY KNEE Left CHOLECYSTECTOMY COLONOSCOPY 01/28/2015 ESOPHAGEAL MANOMETRY 08/16/2017 ESOPHAGOGASTRODUODENOSCOPY 01/28/2017 Dr. Cabrera ESOPHAGOGASTRODUODENOSCOPY 08/16/2017 with biopsies...Dr. Moncada ESOPHAGOGASTRODUODENOSCOPY 11/15/2017 [facility] 3D brush biopsy, Type 3 hernia....Dr Moncada foot spurs HERNIA REPAIR HIATAL LAPAROSCOPIC 03/13/2018 [facility] HIP FRACTURE SURGERY Right Dr Hernández HYSTERECTOMY with BSO LUMBAR FUSION MANDIBLE SURGERY ROSALVA FUNDOPLICATION 03/13/2018 [facility] POSTERIOR REPAIR OF RECTOCELE 2002 SHOULDER ARTHROSCOPY Bilateral TONSILLECTOMY TUBAL LIGATION US BIOPSY LYMPH NODE LEFT Allergies Allergen Reactions Codeine Other reaction(s): Upset stomach and cramps Morphine Chest pain felt like having a heart attack Current Outpatient Medications Medication Sig Dispense Refill ALPRAZolam (XANAX) 0.25 MG tablet Take 0.25 mg by mouth 2 (two) times a day as needed for sleep. atorvastatin (LIPITOR) 20 MG tablet Take 20 mg by mouth daily . ferrous sulfate 325 (65 FE) MG EC tablet Take 1 Unspecified by mouth daily . folic acid (FOLVITE) 1 MG tablet Take by mouth . gabapentin (NEURONTIN) 300 MG capsule Take 300 mg by mouth 4 (four) times a day . leucovorin (WELLCOVORIN) 15 MG tablet Take 15 mg by mouth once a week . lisinopril (PRINIVIL,ZESTRIL) 5 MG tablet Take 5 mg by mouth daily . meloxicam (MOBIC) 15 MG tablet Take 15 mg by mouth daily. methotrexate (TREXALL) 2.5 MG tablet Take by mouth Tuesday, Tuesday, Tuesday . nortriptyline (PAMELOR) 25 MG capsule Take 25 mg by mouth nightly Reasonstake 2 tabs at bedtime. traMADol (ULTRAM) 50 mg tablet Take 1 tablet (50 mg total) by mouth every 6 (six) hours as needed for pain. 60 tablet 0 cyclobenzaprine (FLEXERIL) 10 MG tablet Take 0.5 Unspecified by mouth . predniSONE (DELTASONE) 10 MG tablet TAKE 1 TABLET BY MOUTH ONCE DAILY NEEDED. TAKE FOR 3 TO 5 DAYS WITH A FLARE. No current facility-administered medications for this visit. Social History Tobacco Use Smoking status: Former Smokeless tobacco: Never Substance Use Topics Alcohol use: No Alcohol/week: 0.0 standard drinks Drug use: No Family History Problem Relation Age of Onset Stroke Mother Diabetes Mother Hypertension Mother Heart failure Father Aneurysm Father Heart disease Brother Hypertension Brother Stomach cancer Maternal Grandmother Diabetes Sister Throat cancer Other REVIEW OF SYSTEMS Pertinent positives are listed in HPI, PMSH, SH, ALL, otherwise all systems reviewed below are negative. The following systems were reviewed: [x] Const (fevers, chills, wt. loss, fatigue) [x] CV (HTN, CP, BULLOCK, edema, DVT) [x] Resp (SOB, pleurisy, asthma, apnea) [x] GI (N, V, D, C, M, abd pain, appetite) [x] Musc (back pain, joint stiffness, gout) [x] Neuro (seizures, syncope, paralysis) [x] Psych (depression, anxiety) [x] Endo (hot/cold intol, polyuria[DM]) [x] Hem/Lymph (Anemia, LA, bleeding) [x] Allerg/Immun (seasonal, immuniz) [x] Eyes (diplopia, cataracts) [x] ENT/mouth (dysphagia, epistaxis) [x] (dysuria, hematuria) [x] Skin/Breast (moles, rash, lumps, nipple changes) Pertinent Positives: See HPI Pertinent Negatives: See HPI Physical Exam: BP 133/81 Pulse 67 Ht 5' 1 Wt 75.8 kg (167 lb 1.6 oz) SpO2 98% BMI 31.57 kg/m Body mass index is 31.57 kg/m . Constitutional: Well nourished, well developed person in no acute distress. Ambulates without difficulty. Head: Atraumatic and normocephalic. Face: Within normal limits. Eyes: Pupils equal, round, reactive to light. Sclera white. Mouth: Moist mucous membranes, normal dentation. Neck: supple, trachea midline,no masses, no incisions. Lymphatic: No cervical or inguinal lymphadenopathy. Heart: Regular rate and rhythm. Lungs: Clear to auscultation. Abdomen: Soft, non-distended, non-tender, no heptasplenomegaly, no umbilica, incisional, femoral, or inguinal hernias. Pelvis: Stable, non-tender. Skin: Warm, moist, normal skin turgor. Peripheral Vascular: Palapable carotid, radial, and femoral pulses, no peripheral edema. Neuropsych: Alert and oriented, judgement and insight intact. Normal Gait. Assessment: 1. Esophageal dysphagia XR Esophagram Swallow Study 2. Heartburn 3. Status post laparoscopic Rosalva fundoplication XR Esophagram Swallow Study Orders Placed This Encounter Procedures XR Esophagram Swallow Study Plan: EGD with Biopsy Delvis Moncada MD documented in this [id number] History of Present illness Narrative* Nevaehdoreen Valdes RYAN Hartman - 11/25/2020 7:38 AM EDT Images from the original note were not included. Established Patient Visit Nevaehdoreen Valdes RYAN Hartman Patient Name: Narendra Arguelles. . Date of : 1950, 70 y.o.. Gender: female. Subjective: Patient is a pleasant 70-year-old female who presents to clinic for follow-up contusion of her leftfoot. Patient states that she has improved significantly utilizing the surgical shoe. She has sincetransition herself into her good supportive tennis shoes. Additionally, she is complaining of recurrence of her tinea pedis infection. No other pedal complaints at this time.Denies fevers, chills, nausea, vomiting, chest pain, shortness of breath, or any other constitutional symptoms. Physical Examination: BP 122/74 Pulse 86 Temp 98.1 F (36.7 C) General Appearance: Alert, cooperative, no distress, appears stated age. Podiatric Exam Vascular: DP and PT pulses are palpable 2/4. Capillary refill time is brisk to distal digits. Skin temperature is warm to warm from proximal tibial tuberosity to distal digit. Neurological: Gross sensation is intact. Protective sensation is intact. Dermatologic: Ecchymosis noted to the dorsal aspect of the second third and fourth digits, left foot, has resolved. No appreciable edema noted to the dorsal lateral foot. No open wounds or ulcerations. Interdigital spaces are clean dry and intact. Mild xerosis noted to medial and plantar aspects ofbilateral feet. Musculoskeletal: No pain on palpation noted across the dorsal midfoot and to the second, third and fourth metatarsal heads, left foot. Patient is able to wiggle digits. Ankle joint range of motion isintact. Muscle strength is 5/5 to dorsiflexors, plantar flexors, inverters and everters. Compartments soft and compressible. No calf pain Assessment: 1. Primary osteoarthritis of left foot 2. Contusion of left foot, initial encounter 3. Recurrent tinea pedis Plan: Patient was seen and evaluated. Discussed all clinical findings. Patient's left foot pain and secondary to contusion has resolved. Patient has severe degenerative arthritis of the left foot which is well managed by anti-inflammatory medications and ambulating in good supportive stiff shoes. Due to the recurrence of her tinea pedis infection, prescription Lotrisone was sent to her pharmacy. All questions were answered to patient satisfaction. Patient understands to call with any questionsor concerns. Follow-up as needed Nevaeh Hartman DPM, MS Podiatric Physician & Surgeon documented in this [id number] History of Present illness Narrative* Nevaeh Hartman DPM - 10/28/2020 8:42 AM EDT Images from the original note were not included. Established Patient Visit Nevaeh Hartman DPM Patient Name: Narendra Arguelles. . Date of : 1950, 70 y.o.. Gender: female. Subjective: Patient is a pleasant 70-year-old female who presents to clinic complaining of left foot pain. Patient states that she tripped and rolled her left foot 2 days ago. She sustained severe pain with thisinjury and went to [facility] emergency room. She reports that the x-rays were negative. However she continues to have pain, swelling, and bruising. She has been ambulating in regular shoes. No other pedal complaints at this time.Denies fevers, chills, nausea, vomiting, chest pain, shortness of breath, or any other constitutional symptoms. Physical Examination: BP 145/86 (BP Location: Right arm, Patient Position: Sitting, BP Cuff Size: Adult) Pulse 85 Temp 97.7 F (36.5 C) (Infrared) General Appearance: Alert, cooperative, no distress, appears stated age. Podiatric Exam Vascular: DP and PT pulses are palpable 2/4. Capillary refill time is brisk to distal digits. Skin temperature is warm to warm from proximal tibial tuberosity to distal digit. Neurological: Gross sensation is intact. Protective sensation is intact. Dermatologic: Ecchymosis noted to the dorsal aspect of the second third and fourth digits, left foot. Mild localized edema noted to the dorsal lateral foot. No open wounds or ulcerations. Interdigital spaces are clean dry and intact. Musculoskeletal: Pain on palpation noted across the dorsal midfoot and to the second, third and fourth metatarsal heads, left foot. Patient is able to wiggle digits. Ankle joint range of motion is intact. Muscle strength is 5/5 to dorsiflexors, plantar flexors, inverters and everters. Compartments soft and compressible. No calf pain Assessment: 1. Contusion of left foot, initial encounter Surgical Shoe 2. Primary osteoarthritis of left foot 3. Left foot pain Imaging: Right foot 3 views weightbearing radiographs were ordered and interpreted as follows: Extensive spurring across the midfoot joints secondary to severe degenerative arthritis. Subluxation of the second toe at the metatarsophalangeal joint. Degenerative changes noted to the second and third metatarsophalangeal joints Bones are somewhat osteopenic. No fractures or dislocations noted. Plan: Patient was seen and evaluated. Discussed all clinical findings Patient has severe degenerative arthritis of the left foot. With patient's recent left foot contusion, I discussed with patient the importance of offloading, compression therapy, and wearing stiff soled shoes. I offered to prescribe her meloxicam but patient is already taking meloxicam and prednisone along with her methotrexate for her rheumatoid arthritis. A surgical shoe was dispensed to the patient which will help decrease pain with ambulation. All questions were answered to patient satisfaction. Patient understands to call with any questionsor concerns. Follow-up in 4 weeks for evaluation. Nevaeh Hartman DPM, MS Podiatric Physician & Surgeon documented in this [id number] History of Present illness Narrative* On a scale of 0 to 10, the patient rates the pain at 1. * Pain Location: Low Back Pain. * Pain Quality: Aching. Improved * Exacerbating Factors: walking. * Alleviating Factors: Repositioning, Other: ___. * 24 Hour Behavior: * Symptoms are the same in the am. ACHE. * Symptoms are better as the day progresses. * Symptoms are better in the pm. * Symptoms are better lying down. -Pain Management-[facility] Phone: evaluation note* Diagnosis Contusion of left foot, initial encounter- Primary Primary osteoarthritis of left foot Left foot pain Pain in soft tissues of [facility] Primary osteoarthritis of left foot- Primary Contusion of left foot, initial encounter Recurrent tinea pedis Dermatophytosis of foot [facility]* Diagnosis Esophageal dysphagia- Primary Dysphagia, pharyngoesophageal phase Heartburn Status post laparoscopic Rosalva fundoplication Esophageal dysphagia Dysphagia, pharyngoesophageal phase Heartburn Status post laparoscopic Rosalva fundoplication Esophageal dysphagia Dysphagia, pharyngoesophageal phase Heartburn Status post laparoscopic Rosalva fundoplication [facility]* Diagnosis Age-related osteoporosis without current pathological fracture- Primary Senile osteoporosis [facility] Hiatal hernia with GERD without esophagitis- Primary [facility]* Diagnosis Encounter for surgical aftercare following surgery of digestive system- Primary [facility]* Diagnosis Postoperative follow-up- Primary Follow-up examination, following unspecified surgery [facility]* Diagnosis Closed fracture of one rib of right side, initial encounter- Primary documented in this encounter [facility] Work Phone: Evaluation note* Diagnosis Primary hypertension- Primary Unspecified essential hypertension Neck pain Cervicalgia Anxiety Anxiety state, unspecified Chronic pain syndrome Hypercholesteremia Pure hypercholesterolemia Osteoporosis, unspecified osteoporosis type, unspecified pathological fracture presence Primary generalized (osteo)arthritis Rheumatoid arthritis involving multiple sites, unspecified whether rheumatoid factor present (CMS/[facility]) Class 1 obesity with serious comorbidity and body mass index (BMI) of 34.0 to 34.9 in adult, unspecified obesity type Gastroesophageal reflux disease without esophagitis Esophageal reflux Vitamin D deficiency documented in this encounter [facility] Work Phone: Evaluation note* Diagnosis Seasonal allergies- Primary Allergic rhinitis, cause unspecified documented in this encounter [facility] Work Phone: Evaluation note* Diagnosis Fall, initial encounter- Primary Contusion of left foot, initial encounter Osteopenia Disorder of bone and cartilage, unspecified documented in this encounter [facility] Work Phone: Evaluation note* Diagnosis Dislocated toe, left, initial encounter- Primary Hammer toe of second toe of left foot Bunion of great toe of left foot Bunion Acquired hammer toe deformity of lesser toe of left foot [facility] Diagnosis Hallux abductovalgus with bunions, left- Primary Dislocated toe, left, sequela [facility] Diagnosis Hallux abductovalgus with bunions, left Dislocated toe, left, sequela Dislocated toe, left, initial encounter- Primary Acquired hammer toe deformity of lesser toe of left foot Hallux abductovalgus with bunions, left Hallux abductovalgus with bunions, left Dislocated toe, left, sequela [facility]* Diagnosis Postop check- Primary Follow-up examination, following unspecified surgery History of bunionectomy of left great toe [facility]* Diagnosis Post-op pain- Primary Other acute postoperative pain [facility]* Diagnosis Hammer toe of second toe of left foot- Primary Hallux abductovalgus with bunions, left History of bunionectomy of left great toe [facility] Diagnosis Neurogenic claudication due to lumbar spinal stenosis- Primary Spinal stenosis of lumbar region Cervical neuritis Brachial neuritis or radiculitis nos Chronic pain syndrome Cervical stenosis of spinal canal Spinal stenosis in cervical region Cervical radiculitis Brachial neuritis or radiculitis nos documented in this encounter [facility] Work Phone: Evaluation note* Diagnosis Age-related osteoporosis without current pathological fracture- Primary Senile osteoporosis [facility] History of bunionectomy of left great toe- Primary Hammer toe of second toe of left foot [facility] Diagnosis History of bunionectomy of left great toe- Primary Hammer toe of second toe of left foot [facility]* Diagnosis Cervical radiculitis Brachial neuritis or radiculitis nos documented in this encounter [facility] Work Phone: Evaluation note* Diagnosis History of bunionectomy of left great toe- Primary Hammer toe of second toe of left foot Primary osteoarthritis of left foot Arthritis of foot, right Bunion of great toe of right foot Bunion [facility]* Diagnosis Cervical neuritis- Primary Brachial neuritis or radiculitis nos Chronic pain syndrome Arthrodesis status Cervical spondylosis Cervical spondylosis without myelopathy H/O arthrodesis Degenerative disc disease, lumbar Other chronic pain documented in this encounter [facility] Work Phone: Evaluation note* Diagnosis History of bunionectomy of left great toe- Primary Primary osteoarthritis of left foot Arthritis of foot, right [facility]* Diagnosis Routine general medical examination at health care facility- Primary Routine general medical examination at a health care facility Anxiety Anxiety state, unspecified Chronic pain syndrome Primary hypertension Unspecified essential hypertension Hypercholesteremia Pure hypercholesterolemia Osteoporosis, unspecified osteoporosis type, unspecified pathological fracture presence Primary generalized (osteo)arthritis Rheumatoid arthritis involving multiple sites, unspecified whether rheumatoid factor present (CMS/HCC) Gastroesophageal reflux disease without esophagitis Esophageal reflux Vitamin D deficiency Edema, unspecified type Encounter for screening mammogram for breast cancer Class 2 severe obesity with serious comorbidity and body mass index (BMI) of 35.0 to 35.9 in adult, unspecified obesity type (CMS/HCC) documented in this encounter [facility] Work Phone: Evaluation note* Diagnosis Encounter for screening mammogram for breast cancer documented in this encounter [facility] Work Phone: Evaluation note* Diagnosis Lumbosacral radiculopathy- Primary Thoracic or lumbosacral neuritis or radiculitis, unspecified Neurogenic claudication due to lumbar spinal stenosis Spinal stenosis of lumbar region Spondylosis of lumbosacral region, unspecified spinal osteoarthritis complication status Cervical neuritis Brachial neuritis or radiculitis nos Rheumatoid arthritis involving multiple sites, unspecified whether rheumatoid factor present (Multi) S/P lumbar spinal fusion Arthrodesis status Degenerative disc disease, lumbar Other chronic pain documented in this encounter [facility] Work Phone: Evaluation note* Diagnosis Neurogenic claudication due to lumbar spinal stenosis Spinal stenosis of lumbar region Lumbosacral radiculopathy Thoracic or lumbosacral neuritis or radiculitis, unspecified documented in this encounter [facility] Work Phone: [phone] note* Diagnosis Lumbosacral radiculopathy- Primary Thoracic or lumbosacral neuritis or radiculitis, unspecified Neurogenic claudication due to lumbar spinal stenosis Spinal stenosis of lumbar region H/O arthrodesis Rheumatoid arthritis involving multiple sites, unspecified whether rheumatoid factor present (Multi) documented in this encounter [facility] Work Phone: [phone] note* Diagnosis Acute sinusitis, recurrence not specified, unspecified location- Primary documented in this encounter [facility] Work Phone: [phone] note* Diagnosis Lumbosacral radiculopathy Thoracic or lumbosacral neuritis or radiculitis, unspecified Neurogenic claudication due to lumbar spinal stenosis Spinal stenosis of lumbar region Degenerative disc disease, lumbar Other chronic pain documented in this encounter [facility] Work Phone: [phone] note* Diagnosis Right hip pain- Primary Pain in joint, pelvic region and thigh documented in this encounter [facility] Work Phone: [phone] note* Diagnosis Right hip pain Pain in joint, pelvic region and thigh documented in this encounter [facility] Work Phone: [phone] note* Diagnosis Neurogenic claudication due to lumbar spinal stenosis Spinal stenosis of lumbar region Lumbosacral radiculopathy Thoracic or lumbosacral neuritis or radiculitis, unspecified documented in this encounter [facility] Work Phone: [phone] note* Diagnosis Acute frontal sinusitis, recurrence not specified- Primary Viral URI with cough documented in this encounter [facility] Work Phone: [phone] note* Diagnosis 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 Pain of right hip Viral URI with cough documented in this encounter [facility] Work Phone: Evaluation note* Diagnosis Neurogenic claudication due to lumbar spinal stenosis Spinal stenosis of lumbar region Lumbosacral radiculopathy Thoracic or lumbosacral neuritis or radiculitis, unspecified documented in this encounter [facility] Work Phone: [phone] note* Diagnosis Chronic pain syndrome- Primary Degeneration of intervertebral disc of lumbar region, unspecified whether pain present Lumbosacral radiculopathy Thoracic or lumbosacral neuritis or radiculitis, unspecified Spondylosis of lumbosacral region, unspecified spinal osteoarthritis complication status H/O arthrodesis Neurogenic claudication due to lumbar spinal stenosis Spinal stenosis of lumbar region documented in this encounter [facility] Work Phone: [phone] note* Diagnosis 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 Pain of right hip documented in this encounter [facility] Work Phone: [phone] note* Diagnosis Senile osteoporosis documented in this encounter [facility] Work Phone: [phone] note* Diagnosis Age-related osteoporosis without current pathological fracture- Primary Senile osteoporosis Vitamin D deficiency Unspecified vitamin D deficiency [facility] Diagnosis Neurogenic claudication due to lumbar spinal stenosis- Primary Spinal stenosis of lumbar region Lumbosacral radiculopathy Thoracic or lumbosacral neuritis or radiculitis, unspecified Spondylosis of lumbosacral region, unspecified spinal osteoarthritis complication status S/P spinal fusion Arthrodesis status Degenerative disc disease, lumbar Other chronic pain documented in this encounter [facility] Work Phone: [phone] note* Diagnosis Syncope, unspecified syncope type- Primary documented in this encounter [facility] Work Phone: [phone] note* Diagnosis Anxiety Anxiety state, unspecified Chronic pain syndrome Primary hypertension Unspecified essential hypertension Hypercholesteremia Pure hypercholesterolemia Osteoporosis, unspecified osteoporosis type, unspecified pathological fracture presence Primary generalized (osteo)arthritis Rheumatoid arthritis involving multiple sites, unspecified whether rheumatoid factor present (Multi) Gastroesophageal reflux disease without esophagitis Esophageal reflux Vitamin D deficiency Edema, unspecified type Class 2 severe obesity with serious comorbidity and body mass index (BMI) of 35.0 to 35.9 in adult, unspecified obesity type (Multi) documented in this encounter [facility] Work Phone: Evaluation note* Diagnosis Neurogenic claudication due to lumbar spinal stenosis- Primary Spinal stenosis of lumbar region Lumbosacral radiculopathy Thoracic or lumbosacral neuritis or radiculitis, unspecified Degenerative disc disease, lumbar Chronic pain syndrome H/O arthrodesis Rheumatoid arthritis involving multiple sites, unspecified whether rheumatoid factor present (Multi) documented in this encounter [facility] Work Phone: Evaluation note* Diagnosis Senile osteoporosis- Primary Neurogenic claudication due to lumbar spinal stenosis Spinal stenosis of lumbar region Lumbosacral radiculopathy Thoracic or lumbosacral neuritis or radiculitis, unspecified Degenerative disc disease, lumbar H/O arthrodesis documented in this encounter [facility] Work Phone: Evaluation note* Diagnosis Preop cardiovascular exam- Primary Pre-operative cardiovascular examination Essential hypertension Unspecified essential hypertension Hyperlipidemia Other and unspecified hyperlipidemia Pre-operative clearance Unspecified pre-operative examination Preop examination- Primary Unspecified pre-operative examination Hiatal hernia with GERD without esophagitis Obesity (BMI 30-39.9) Essential hypertension Unspecified essential hypertension Anemia, unspecified type Anxiety Anxiety state, unspecified Hyperlipidemia, unspecified hyperlipidemia type Hallux abductovalgus with bunions, left Dislocated toe, left, sequela Essential hypertension Unspecified essential hypertension Obesity (BMI 30-39.9) Anemia, unspecified type Anxiety Anxiety state, unspecified Hyperlipidemia, unspecified hyperlipidemia type Preop examination Unspecified pre-operative examination Degeneration of intervertebral disc of lumbar region, unspecified whether pain present- [facility] Lumbosacral radiculopathy- Primary Thoracic or lumbosacral neuritis or radiculitis, unspecified H/O arthrodesis Neurogenic claudication due to lumbar spinal stenosis Spinal stenosis of lumbar region documented in this encounter [facility] Work Phone: Evaluation note* Diagnosis Acute upper respiratory infection- Primary Acute upper respiratory infections of unspecified site Acute bronchitis, unspecified organism documented in this encounter [facility] Work Phone: Evaluation note* Diagnosis Routine general medical examination at health care facility- Primary Routine general medical examination at a health care facility Anxiety Anxiety state, unspecified Chronic pain syndrome Primary hypertension Unspecified essential hypertension Hypercholesteremia Pure hypercholesterolemia Osteoporosis, unspecified osteoporosis type, unspecified pathological fracture presence Primary generalized (osteo)arthritis Rheumatoid arthritis involving multiple sites, unspecified whether rheumatoid factor present (Multi) Gastroesophageal reflux disease without esophagitis Esophageal reflux Vitamin D deficiency Edema, unspecified type Class 2 severe obesity with serious comorbidity and body mass index (BMI) of 35.0 to 35.9 in adult, unspecified obesity type Visit for screening mammogram documented in this encounter [facility] Work Phone: Evaluation note* Diagnosis Routine general medical examination at [facility]- Primary Routine general medical examination at a [facility] Anxiety Anxiety state, unspecified Chronic pain syndrome Primary hypertension Unspecified essential hypertension Hypercholesteremia Pure hypercholesterolemia Osteoporosis, unspecified osteoporosis type, unspecified pathological fracture presence Primary generalized (osteo)arthritis Rheumatoid arthritis involving multiple sites, unspecified whether rheumatoid factor present (Multi) Gastroesophageal reflux disease without esophagitis Esophageal reflux Vitamin D deficiency Edema, unspecified type Class 2 severe obesity with serious comorbidity and body mass index (BMI) of 35.0 to 35.9 in adult, unspecified obesity type Visit for screening mammogram Upper respiratory tract infection, unspecified type- Primary documented in this encounter [facility] Work Phone: Evaluation note* Diagnosis Routine general medical examination at [facility]- Primary Routine general medical examination at a [facility] Anxiety Anxiety state, unspecified Chronic pain syndrome Primary hypertension Unspecified essential hypertension Hypercholesteremia Pure hypercholesterolemia Osteoporosis, unspecified osteoporosis type, unspecified pathological fracture presence Primary generalized (osteo)arthritis Rheumatoid arthritis involving multiple sites, unspecified whether rheumatoid factor present (Multi) Gastroesophageal reflux disease without esophagitis Esophageal reflux Vitamin D deficiency Edema, unspecified type Class 2 severe obesity with serious comorbidity and body mass index (BMI) of 35.0 to 35.9 in adult, unspecified obesity type Visit for screening mammogram Visit for screening mammogram documented in this encounter [facility] Work Phone: Evaluation note* Diagnosis Routine general medical examination at health care facility- Primary Routine general medical examination at a health care facility Anxiety Anxiety state, unspecified Chronic pain syndrome Primary hypertension Unspecified essential hypertension Hypercholesteremia Pure hypercholesterolemia Osteoporosis, unspecified osteoporosis type, unspecified pathological fracture presence Primary generalized (osteo)arthritis Rheumatoid arthritis involving multiple sites, unspecified whether rheumatoid factor present (Multi) Gastroesophageal reflux disease without esophagitis Esophageal reflux Vitamin D deficiency Edema, unspecified type Class 2 severe obesity with serious comorbidity and body mass index (BMI) of 35.0 to 35.9 in adult, unspecified obesity type Visit for screening mammogram Lumbosacral radiculopathy Thoracic or lumbosacral neuritis or radiculitis, unspecified documented in this encounter [facility] Work Phone: Evaluation note* Diagnosis Routine general medical examination at health care facility- Primary Routine general medical examination at a health care facility Anxiety Anxiety state, unspecified Chronic pain syndrome Primary hypertension Unspecified essential hypertension Hypercholesteremia Pure hypercholesterolemia Osteoporosis, unspecified osteoporosis type, unspecified pathological fracture presence Primary generalized (osteo)arthritis Rheumatoid arthritis involving multiple sites, unspecified whether rheumatoid factor present (Multi) Gastroesophageal reflux disease without esophagitis Esophageal reflux Vitamin D deficiency Edema, unspecified type Class 2 severe obesity with serious comorbidity and body mass index (BMI) of 35.0 to 35.9 in adult, unspecified obesity type Visit for screening mammogram Neurogenic claudication due to lumbar spinal stenosis- Primary Spinal stenosis of lumbar region Lumbosacral radiculopathy Thoracic or lumbosacral neuritis or radiculitis, unspecified Spondylosis of lumbosacral region, unspecified spinal osteoarthritis complication status Postlaminectomy syndrome of lumbar region Postlaminectomy syndrome, lumbar region documented in this encounter [facility] Work Phone: Evaluation note* Diagnosis Routine general medical examination at health care facility- Primary Routine general medical examination at a health care facility Anxiety Anxiety state, unspecified Chronic pain syndrome Primary hypertension Unspecified essential hypertension Hypercholesteremia Pure hypercholesterolemia Osteoporosis, unspecified osteoporosis type, unspecified pathological fracture presence Primary generalized (osteo)arthritis Rheumatoid arthritis involving multiple sites, unspecified whether rheumatoid factor present (Multi) Gastroesophageal reflux disease without esophagitis Esophageal reflux Vitamin D deficiency Edema, unspecified type Class 2 severe obesity with serious comorbidity and body mass index (BMI) of 35.0 to 35.9 in adult, unspecified obesity type Visit for screening mammogram Acute pain of right shoulder- Primary Acute pain of right shoulder documented in this encounter [facility] Work Phone: Evaluation note* Diagnosis Routine general medical examination at health care facility- Primary Routine general medical examination at a health care facility Anxiety Anxiety state, unspecified Chronic pain syndrome Primary hypertension Unspecified essential hypertension Hypercholesteremia Pure hypercholesterolemia Osteoporosis, unspecified osteoporosis type, unspecified pathological fracture presence Primary generalized (osteo)arthritis Rheumatoid arthritis involving multiple sites, unspecified whether rheumatoid factor present (Multi) Gastroesophageal reflux disease without esophagitis Esophageal reflux Vitamin D deficiency Edema, unspecified type Class 2 severe obesity with serious comorbidity and body mass index (BMI) of 35.0 to 35.9 in adult, unspecified obesity type Visit for screening mammogram Acute pain of right shoulder documented in this encounter [facility] Work Phone: Evaluation note* Diagnosis Routine general medical examination at [facility] care facility- Primary Routine general medical examination at a [facility] Anxiety Anxiety state, unspecified Chronic pain syndrome Primary hypertension Unspecified essential hypertension Hypercholesteremia Pure hypercholesterolemia Osteoporosis, unspecified osteoporosis type, unspecified pathological fracture presence Primary generalized (osteo)arthritis Rheumatoid arthritis involving multiple sites, unspecified whether rheumatoid factor present (Multi) Gastroesophageal reflux disease without esophagitis Esophageal reflux Vitamin D deficiency Edema, unspecified type Class 2 severe obesity with serious comorbidity and body mass index (BMI) of 35.0 to 35.9 in adult, unspecified obesity type Visit for screening mammogram Acute pain of right shoulder documented in this encounter [facility] Work Phone: Evaluation note* Diagnosis Routine general medical examination at [facility]- Primary Routine general medical examination at a health care [facility] Anxiety Anxiety state, unspecified Chronic pain syndrome Primary hypertension Unspecified essential hypertension Hypercholesteremia Pure hypercholesterolemia Osteoporosis, unspecified osteoporosis type, unspecified pathological fracture presence Primary generalized (osteo)arthritis Rheumatoid arthritis involving multiple sites, unspecified whether rheumatoid factor present (Multi) Gastroesophageal reflux disease without esophagitis Esophageal reflux Vitamin D deficiency Edema, unspecified type Class 2 severe obesity with serious comorbidity and body mass index (BMI) of 35.0 to 35.9 in adult, unspecified obesity type Visit for screening mammogram Right shoulder pain, unspecified chronicity Cervical neuritis Brachial neuritis or radiculitis nos documented in this encounter [facility] Work Phone: Evaluation note* Diagnosis Routine general medical examination at health care facility- Primary Routine general medical examination at a health care facility Anxiety Anxiety state, unspecified Chronic pain syndrome Primary hypertension Unspecified essential hypertension Hypercholesteremia Pure hypercholesterolemia Osteoporosis, unspecified osteoporosis type, unspecified pathological fracture presence Primary generalized (osteo)arthritis Rheumatoid arthritis involving multiple sites, unspecified whether rheumatoid factor present (Multi) Gastroesophageal reflux disease without esophagitis Esophageal reflux Vitamin D deficiency Edema, unspecified type Class 2 severe obesity with serious comorbidity and body mass index (BMI) of 35.0 to 35.9 in adult, unspecified obesity type Visit for screening mammogram Right shoulder pain, unspecified chronicity Cervical neuritis Brachial neuritis or radiculitis nos Cervical radiculitis- Primary Brachial neuritis or radiculitis nos Neurogenic claudication due to lumbar spinal stenosis Spinal stenosis of lumbar region Lumbosacral radiculopathy Thoracic or lumbosacral neuritis or radiculitis, unspecified Postlaminectomy syndrome of lumbar region Postlaminectomy syndrome, lumbar region Right hip pain Pain in joint, pelvic region and thigh Anterolisthesis of cervical spine documented in this encounter [facility] Work Phone: Evaluation note* Diagnosis Preop cardiovascular exam- Primary Pre-operative cardiovascular examination Essential hypertension Unspecified essential hypertension Hyperlipidemia Other and unspecified hyperlipidemia Pre-operative clearance Unspecified pre-operative examination Preop examination- Primary Unspecified pre-operative examination Hiatal hernia with GERD without esophagitis Obesity (BMI 30-39.9) Essential hypertension Unspecified essential hypertension Anemia, unspecified type Anxiety Anxiety state, unspecified Hyperlipidemia, unspecified hyperlipidemia type Hallux abductovalgus with bunions, left Dislocated toe, left, sequela Essential hypertension Unspecified essential hypertension Obesity (BMI 30-39.9) Anemia, unspecified type Anxiety Anxiety state, unspecified Hyperlipidemia, unspecified hyperlipidemia type Preop examination Unspecified pre-operative examination Cervical radiculitis- Primary Brachial neuritis or radiculitis nos Anterolisthesis of cervical spine [facility] Routine general medical examination at health care facility- Primary Routine general medical examination at a health care facility Anxiety Anxiety state, unspecified Chronic pain syndrome Primary hypertension Unspecified essential hypertension Hypercholesteremia Pure hypercholesterolemia Osteoporosis, unspecified osteoporosis type, unspecified pathological fracture presence Primary generalized (osteo)arthritis Rheumatoid arthritis involving multiple sites, unspecified whether rheumatoid factor present (Multi) Gastroesophageal reflux disease without esophagitis Esophageal reflux Vitamin D deficiency Edema, unspecified type Class 2 severe obesity with serious comorbidity and body mass index (BMI) of 35.0 to 35.9 in adult, unspecified obesity type Visit for screening mammogram Right shoulder pain, unspecified chronicity Cervical neuritis Brachial neuritis or radiculitis nos Cervical radiculitis Brachial neuritis or radiculitis nos Anterolisthesis of cervical spine documented in this encounter [facility] Work Phone: Evaluation noteNo assessment information available [facility] Work Phone: Evaluation note* Diagnosis Preop cardiovascular exam- Primary Pre-operative cardiovascular examination Essential hypertension Unspecified essential hypertension Hyperlipidemia Other and unspecified hyperlipidemia Pre-operative clearance Unspecified pre-operative examination Preop examination- Primary Unspecified pre-operative examination Hiatal hernia with GERD without esophagitis Obesity (BMI 30-39.9) Essential hypertension Unspecified essential hypertension Anemia, unspecified type Anxiety Anxiety state, unspecified Hyperlipidemia, unspecified hyperlipidemia type Hallux abductovalgus with bunions, left Dislocated toe, left, sequela Essential hypertension Unspecified essential hypertension Obesity (BMI 30-39.9) Anemia, unspecified type Anxiety Anxiety state, unspecified Hyperlipidemia, unspecified hyperlipidemia type Preop examination Unspecified pre-operative examination Injury of toe on right foot, initial encounter- [facility] Routine general medical examination at health care facility- Primary Routine general medical examination at a health care facility Anxiety Anxiety state, unspecified Chronic pain syndrome Primary hypertension Unspecified essential hypertension Hypercholesteremia Pure hypercholesterolemia Osteoporosis, unspecified osteoporosis type, unspecified pathological fracture presence Primary generalized (osteo)arthritis Rheumatoid arthritis involving multiple sites, unspecified whether rheumatoid factor present (Multi) Gastroesophageal reflux disease without esophagitis Esophageal reflux Vitamin D deficiency Edema, unspecified type Class 2 severe obesity with serious comorbidity and body mass index (BMI) of 35.0 to 35.9 in adult, unspecified obesity type Visit for screening mammogram Right shoulder pain, unspecified chronicity Cervical neuritis Brachial neuritis or radiculitis nos Anterolisthesis of cervical spine- Primary Cervical radiculitis Brachial neuritis or radiculitis nos Gastroesophageal reflux disease without esophagitis Esophageal reflux Primary hypertension Unspecified essential hypertension Hypercholesteremia Pure hypercholesterolemia Osteoporosis, unspecified osteoporosis type, unspecified pathological fracture presence Rheumatoid arthritis involving multiple sites, unspecified whether rheumatoid factor present (Multi) documented in this encounter [facility] Work Phone: Evaluation note* Diagnosis Routine general medical examination at health care facility- Primary Routine general medical examination at a health care facility Anxiety Anxiety state, unspecified Chronic pain syndrome Primary hypertension Unspecified essential hypertension Hypercholesteremia Pure hypercholesterolemia Osteoporosis, unspecified osteoporosis type, unspecified pathological fracture presence Primary generalized (osteo)arthritis Rheumatoid arthritis involving multiple sites, unspecified whether rheumatoid factor present (Multi) Gastroesophageal reflux disease without esophagitis Esophageal reflux Vitamin D deficiency Edema, unspecified type Class 2 severe obesity with serious comorbidity and body mass index (BMI) of 35.0 to 35.9 in adult, unspecified obesity type Visit for screening mammogram Right shoulder pain, unspecified chronicity Cervical neuritis Brachial neuritis or radiculitis nos Gastroenteritis- Primary Other and unspecified noninfectious gastroenteritis and colitis documented in this encounter [facility] Work Phone: Evaluation note* Diagnosis Preop cardiovascular exam- Primary Pre-operative cardiovascular examination Essential hypertension Unspecified essential hypertension Hyperlipidemia Other and unspecified hyperlipidemia Pre-operative clearance Unspecified pre-operative examination Preop examination- Primary Unspecified pre-operative examination Hiatal hernia with GERD without esophagitis Obesity (BMI 30-39.9) Essential hypertension Unspecified essential hypertension Anemia, unspecified type Anxiety Anxiety state, unspecified Hyperlipidemia, unspecified hyperlipidemia type Hallux abductovalgus with bunions, left Dislocated toe, left, sequela Essential hypertension Unspecified essential hypertension Obesity (BMI 30-39.9) Anemia, unspecified type Anxiety Anxiety state, unspecified Hyperlipidemia, unspecified hyperlipidemia type Preop examination Unspecified pre-operative examination Injury of toe on right foot, initial encounter- Primary History of bunionectomy of left great toe [facility] Here for f/u HTN, high chol, GERD, osteoporosis, anxiety, chronic pain (Dr Alcantar), rheumatoid arthritis (Dr Chisholm), precancerous lesions on legs ([facility]) - all stable. She states that overall she is doing pretty well, she has had a couple of falls - tripped over her 's feet once and tripped over a cloths rack at [facility] - she went to the ER and did have Xrays and she then followed up with director of field sales. * She is having issues with constipation - she is using fiber and stool softeners, has tried miralax once in a while and that is only minimally helpful. She admits that she is not drinking enough water. She does take iron sometimes. * She uses xanax prn for her anxiety and tramadol rarely for pain, has been on both for a long time, they work well, risks/benefits/alternatives have been discussed and considered. OARRS reviewed and is appropriate. -[facility] Work Phone: History of Present illness Narrative* The patient is being seen for the subsequent annual wellness visit. * Past Medical, Surgical and Family History: reviewed and updated in chart. * Medications and Supplements: Review of all medications by a prescribing practitioner or clinical pharmacist (such as prescriptions, OTCs, herbal therapies and supplements) documented in the medical record. * No, the patient is not using opioids. * Patient Self Assessment of Health Status: good. * Tobacco use: Non-User * Alcohol use: Non-User * Illicit drug use: Non-User * Current diet: well balanced diet. * Exercise Frequency: regularly. * Depression/Suicide Screening: . * During the past 2 weeks, the patient has not felt down, depressed or hopeless. * During the past 2 weeks, the patient has not felt little interest or pleasure in doing things. * Hearing Impairment: none. * Cognitive Impairment: No cognitive impairment observed. * Bathing: performs independently. * Dressing: performs independently. * Walking: performs independently. * Managing Finances: performs independently. * Shopping: performs independently. * Managing Medications: performs independently. * Housework / Basic Home Maintenance: performs independently. * Falls Risk Screening:. NARENDRA has not fallen in the last 6 months. * Home safety risk factors: none. * Advance directives:. Advanced Care Planning discussed and documented advance care plan or surrogatedecision maker documented in the medical record. Patient has living will. Patient has healthcare POA. * Here for f/u HTN, high chol, GERD, osteoporosis, anxiety, chronic pain (Dr Alcantar), rheumatoid arthritis (Dr Chisholm), precancerous lesions on legs ([facility]) - all stable. She states that overall she is doing pretty well. * She uses xanax prn for her anxiety and tramadol rarely for pain, has been on both for a long time, they work well, risks/benefits/alternatives have been discussed and considered. OARRS reviewed and is appropriate. [facility] Work Phone: History of Present illness Narrative* Here for f/u HTN, high chol, GERD, osteoporosis, anxiety, chronic pain (Dr Alcantar), rheumatoid arthritis (Dr Chisholm), precancerous lesions on legs ([facility]) - all stable. She states that overall she is doing pretty well. She is having more issues with food sticking when swallows. She will contact Dr Moncada regarding that. * She uses xanax prn for her anxiety and tramadol rarely for pain, has been on both for a long time, they work well, risks/benefits/alternatives have been discussed and considered. OARRS reviewed and is appropriate. [facility] 205 DO Work Phone: History of Present illness NarrativePatient is a pleasant 71-year-old female presenting today for right knee pain. XR series of right knee was performed today. Patient reports she has been experiencing pain of the right knee for approximately 1.5 years. She reports her knee has been worsening over time with intermittent pain and stiffness. She reports to have give-way and instability, noting her increasing fear of falling. She has a history of left knee arthroplasty as performed by Dr. Hernández. She is planning on a vacation to [place] on 02/04/2022 and is hoping to delay surgical intervention until after the trip.[facility] 300 Work Phone: History of Present illness NarrativePatient is a pleasant 71-year-old female presenting today for right knee pain. XR series of right knee was performed today. Patient reports she has been experiencing pain of the right knee for approximately 1.5 years. She reports her knee has been worsening over time with intermittent pain and stiffness. She reports to have give-way and instability, noting her increasing fear of falling. She has a history of left knee arthroplasty as performed by Dr. Hernández. She is planning on a vacation to [place] on 02/04/2022 and is hoping to delay surgical intervention until after the trip.[facility] 300 Work Phone: History of Present illness NarrativePatient is a pleasant 71-year-old female presenting today for the first in the series of viscosupplementation (Euflexxa) injections for the right knee. Patient continues to be quite symptomatic with pain of the right knee and is agreeable to proceed with the injection today.[facility] 300 Work Phone: History of Present illness NarrativePatient is a pleasant 71-year-old female presenting today for the third in a series of viscosupplementation (Euflexxa) injections for the right knee. She reports she has tolerated the previous injections well and has appreciated some improvement. She does continue to have intermittent instability and difficulty with steps, otherwise she is without complaint. She elects to pursue the third and final injection of the series today.[facility] 300 Work Phone: History of Present illness Narrative* Here for f/u HTN, high chol, GERD (Dr Moncada), osteoporosis, anxiety, chronic pain (Dr Alcantar), rheumatoid arthritis (Dr Chisholm), precancerous lesions on legs ([facility]) - all stable. She states that overall she is doing pretty well. * She states that she had some elevated BP readings at other offices. She is starting to have some leg swelling again as well. She would like to try some lasix again. * She uses xanax prn for her anxiety and tramadol rarely for pain, has been on both for a long time, they work well, risks/benefits/alternatives have been discussed and considered. OARRS reviewed and is appropriate. -[facility] Work Phone: History of Present illness Narrative* The patient is being seen for the subsequent annual wellness visit. * Past Medical, Surgical and Family History: reviewed and updated in chart. * Medications and Supplements: Review of all medications by a prescribing practitioner or clinical pharmacist (such as prescriptions, OTCs, herbal therapies and supplements) documented in the medical record. * No, the patient is not using opioids. * Patient Self Assessment of Health Status: good. * Tobacco use: Non-User * Alcohol use: Non-User * Illicit drug use: Non-User * Current diet: well balanced diet. * Exercise Frequency: regularly. * Depression/Suicide Screening: . * During the past 2 weeks, the patient has not felt down, depressed or hopeless. * During the past 2 weeks, the patient has not felt little interest or pleasure in doing things. * Hearing Impairment: none. * Cognitive Impairment: No cognitive impairment observed. * Bathing: performs independently. * Dressing: performs independently. * Walking: performs independently. * Managing Finances: performs independently. * Shopping: performs independently. * Managing Medications: performs independently. * Housework / Basic Home Maintenance: performs independently. * Falls Risk Screening:. NARENDRA has not fallen in the last 6 months. * Home safety risk factors: none. * Advance directives:. Advanced Care Planning discussed and documented advance care plan or surrogatedecision maker documented in the medical record. Patient has living will. Patient has healthcare POA. * Here for f/u HTN, high chol, GERD (Dr Moncada), osteoporosis, anxiety, chronic pain (Dr Alcantar), rheumatoid arthritis (Dr Chisholm), precancerous lesions on legs ([facility]) - all stable. She states that overall she is doing pretty well. * She uses xanax prn for her anxiety and tramadol rarely for pain, has been on both for a long time, they work well, risks/benefits/alternatives have been discussed and considered. OARRS reviewed and is appropriate. -[facility] Work Phone: History of Present illness Narrative* Mauricio Mancilla PA-C - 02/02/2024 9:15 AM EST Subjective Patient ID: Narendra Arguelles is a 73 y.o. female who presents for Back Pain (Patient complains of lower back pain and pain down into her legs to her knees. Patient states she is having right leg painin the back of her thigh. She is having a CT scan for this. Patient is scheduled for bone density scan on 02/13/24. Patient states she is currently in water PT ordered by the surgeon. Patient states she is following up with Dr. Luz in March. She will decide a treatment plan based on her XR results and bone density scan. She would also like patient to lose weight. ). Patient states that pregabalin hasn't made a huge difference in relation to her pain. But she states her pain hasn't gotten worse. She states she has no side effects. FABIANO score 30. MMA updated today. Anny Batres RN 02/02/24 8:50 AM Patient is a 73-year-old female. She has a past medical history significant for previous cervical fusion, neck pain, and cervical spondylosis. She also has a history of previous lumbar fusion, adjacent level lumbar stenosis and lumbar neuritis. Patient underwent most recently bilateral L2-3 transforaminal epidural steroid injection that gave her significant but only short-lived relief. She has seen a surgeon. She states that right now, they are awaiting her bone density results and her x-ray results. She is planning to have these in January. She has a follow-up with the surgeon in March. At this time, she is not even sure she wants to have surgery but she is going to follow through with that plan. She has pain that she rates a 3/10. The pain is in her lower back and goes down to her knees. Right greater than left side. For her cervical neuritis, most recently for her neck and radicular symptoms she underwent a C6/7 epidural steroid injection. This done on 03/04/2023 and gave her 85% relief. Her radicular symptoms are still improved. She is using Lyrica. 150 mg twice daily. She has not noticed much by the way of relief but does nothave any side effects. Previous gabapentin did not help. Review of Systems Constitutional: Negative. HENT: Negative. Eyes: Negative. Respiratory: Negative. Cardiovascular: Negative. Gastrointestinal: Negative. Endocrine: Negative. Genitourinary: Negative. Musculoskeletal: Positive for arthralgias, back pain, gait problem and myalgias. Skin: Negative. Allergic/Immunologic: Negative. Neurological: Positive for weakness and numbness. Hematological: Negative. Psychiatric/Behavioral: Negative. Objective Physical Exam Vitals and nursing note reviewed. Constitutional: General: She is not in acute distress. Appearance: Normal appearance. She is not ill-appearing. HENT: Head: Normocephalic and atraumatic. Right Ear: External ear normal. Left Ear: External ear normal. Nose: Nose normal. Mouth/Throat: Pharynx: Oropharynx is clear. Eyes: Conjunctiva/sclera: Conjunctivae normal. Cardiovascular: Rate and Rhythm: Normal rate and regular rhythm. Pulses: Normal pulses. Pulmonary: Effort: Pulmonary effort is normal. Breath sounds: Normal breath sounds. Musculoskeletal: General: Normal range of motion. Cervical back: Normal range of motion. Comments: 5/5 lower extremity strength other than bilateral hip flexion 4/5 Skin: General: Skin is warm and dry. Neurological: General: No focal deficit present. Mental Status: She is alert and oriented to person, place, and time. Mental status is at baseline. Psychiatric: Mood and Affect: Mood normal. Behavior: Behavior normal. Thought Content: Thought content normal. Judgment: Judgment normal. CT lumbar spine wo IV contrast Status: Final result PACS Images Show images for CT lumbar spine wo IV contrast Signed by Signed Time Phone Pager Good Khan MD 12/29/2023 09:11 [id number] Exam Information Status Exam Begun Exam Ended Final 12/28/2023 07:58 12/28/2023 08:15 Study Result Narrative & Impression Interpreted By: Good Khan, STUDY: CT LUMBAR SPINE WO IV CONTRAST; ; 12/28/2023 8:15 am INDICATION: Signs/Symptoms:prior lumbar fusion, assess bony anatomy. ,M48.062 Spinal stenosis, lumbar region with neurogenic claudication,M54.17 Radiculopathy, lumbosacral region COMPARISON: MRI lumbar spine from 07/27/2023. CT abdomen and pelvis from 08/08/2013. ACCESSION NUMBER(S): [id number] ORDERING CLINICIAN: BRYAN LUZ TECHNIQUE: Routine unenhanced CT of the lumbar spine was performed. FINDINGS: This report assumes 5 non-rib bearing lumbar vertebral bodies. The lowest intervertebral disc will be labeled L5-S1. There is mild levocurvature. There is stable mild retrolisthesis at T12-L1, L1-L2, and L2-L3 and grade 1 anterolisthesis at L4-L5 and L5-S1. Vertebral body heights are maintained. There is moderate intervertebral disc height narrowing at T11-T12, T12-L1, L1-L2, and L2-L3 and mild intervertebral disc height narrowing at L3-L4. There is vacuum disc phenomenon in the partially visualized T10-T11 intervertebral disc and within the T11-T12, T12-L1, L1-L2, L2-L3, and L3-L4 intervertebral discs. There are chronic degenerative endplate changes at multiple levels including endplate sclerosis and osteophyte formation. There are postoperative changes from laminectomies at L3-L4 through L5-S1 with posterior spinal fusion including placement of bilateral pedicular screws which terminate within the L4 and L5 vertebral bodies and are interconnected by parallel and transverse rods. The superior portions of the bilateral rods project into the posterior elements at L2-L3 adjacent to the facet joint space. There is no evidence of hardware complication. There is at least partial osseous fusion of the bilateral posterior elements at L3-L4 and complete fusion of the posterior elements at L4-L5 at the level of the facet joints. There is moderate left facet osteoarthropathy at T12-L1, fkzqmpeq-pj-tfhkey bilateral facet osteoarthropathy at L1-L2, and marked bilateral facet osteoarthropathy at L2-L3. There are multilevel degenerative changes with spinal canal narrowing and neural foraminal narrowing with spinal canal narrowing most pronounced at the level of L2-L3, better seen on the prior MRI lumbar spine study. There is hyperattenuating material located within the bilateral sacral ala and within the sacroiliac joints which may reflect material injected for repair of potential fractures. IMPRESSION: 1. Postoperative changes from laminectomies and spinal fusion involving the lower lumbar spine with no evidence of hardware complication. 2. At least partial osseous fusion of the posterior elements at L3-L4 and complete osseous fusion of the posterior elements at L4-L5, similar in appearance compared to the prior CT abdomen and pelvis from 2014. 3. There is facet osteoarthropathy at multiple levels. 4. Multilevel degenerative changes of the lumbar spine detailed above and on the prior MRI lumbar spine report. This study was interpreted at [facility]. MACRO: None Signed by: Good Khan 12/29/2023 9:11 AM Dictation workstation: [id number] XR EOS full body EAM through ankle 2 views Status: Final result PACS Images Show images for XR EOS full body EAM through ankle 2 views Signed by Signed Time Phone Pager Cal Turner MD 02/01/2024 12:11 [id number] Exam Information Status Exam Begun Exam Ended Final 02/01/2024 11:22 02/01/2024 11:34 Study Result Narrative & Impression Interpreted By: Cal Turner, STUDY: XR EOS FULL BODY EAM THROUGH ANKLE 2 VIEWS; 02/01/2024 11:34 am INDICATION: Signs/Symptoms:examine scoliosis (surgical planning). COMPARISON: None. ACCESSION NUMBER(S): [id number] ORDERING CLINICIAN: BRYAN LUZ TECHNIQUE: AP and lateral eos whole-body radiographs FINDINGS: There is mild levoconvexity of the thoracic spine. There is mild dextroconvexity of the lower thoracic and upper lumbar spine. Surgical changes are seen of the cervical spine and lumbar spine. Multilevel discogenic and facet degenerative changes seen of the visualized spine with severe discogenic degenerative changes seen in the lower thoracic into upper lumbar spine. There is a right hip arthroplasty. Mild degenerative changes seen of the left hip. Jqnk-ji-wqcruqjf degenerative changes seen of the right knee as visualized. There is a left knee arthroplasty. Lungs are clear. Bowel-gas pattern is nonobstructive. IMPRESSION: As above without osseous injury evident. Please see ordering clinician notes for any quantitative measurement of spinal curvature. Signed by: Cal Turner 02/01/2024 12:11 PM Dictation workstation: [id number] MR lumbar spine wo IV contrast Status: Final result PACS Images Show images for MR lumbar spine wo IV contrast Signed by Signed Time Phone Pager Damari Gibson MD 07/27/2023 10:41 Exam Information Status Exam Begun Exam Ended Final 07/27/2023 07:15 07/27/2023 07:50 Study Result Narrative & Impression Interpreted By: Damari Gibson, STUDY: MR LUMBAR SPINE WO IV CONTRAST INDICATION: Signs/Symptoms:lower back and leg pain and legt fatigue. H/O fusion COMPARISON: Lumbar spine MRI 07/14/2018 ACCESSION NUMBER(S): [id number] ORDERING CLINICIAN: MAURICIO MANCILLA TECHNIQUE: Multiplanar multisequence MRI of the lumbar spine was performed without the administration of intravenous contrast, according to standard protocol. FINDINGS: ALIGNMENT: Stepwise retrolisthesis of T12 on L1 through L2 on L3. 4 mm grade 1 anterolisthesis of L5 on S1 . VERTEBRAE: Status post posterior decompression and fusion of L4-5 and L5-S1. DISCS: Multilevel disc desiccation. Moderate disc height loss from T12-L1 through L2-3. Mild disc height loss at L3-4. CONUS MEDULLARIS AND CAUDA EQUINA: The conus medullaris terminates at L1-2. Crowding of the cauda equina nerve roots at L2-3 secondary to degenerative change detailed further below. Remainder of the cauda equina nerve roots appear normal. PARAVERTEBRAL SOFT TISSUES AND VISUALIZED RETROPERITONEUM: The visualized paravertebral soft tissues appear within normal limits. EVALUATION OF INDIVIDUAL LEVELS: L1-2: Mild retrolisthesis with disc osteophyte complex asymmetric to the left and facet hypertrophy. Severe left foraminal stenosis and moderate right foraminal stenosis. There is mild narrowing of the spinal canal. L2-3: Retrolisthesis with disc osteophyte complex, facet hypertrophy, and infolding of ligamentum flavum. Severe narrowing of the spinal canal and bilateral foramina, schtm-wqtrner-bmtj-left. Crowding of the cauda equina nerve roots again noted. L3-4: Disc bulge with facet hypertrophy and infolding of ligamentum flavum resulting in moderate to severe bilateral foraminal stenosis and mild narrowing of the spinal canal. L4-5: Status post laminectomy. No canal or foraminal stenosis. L5-S1: Status post laminectomy and fusion. 4 mm grade 1 anterolisthesis uncovering of the posterior aspect of the disc and facet hypertrophy likely results in moderate bilateral foraminal stenosis though evaluation is limited given artifact from adjacent hardware. No canal stenosis. LIMITED EVALUATION OF UPPER SACRUM AND SACROILIAC JOINTS: Severe degenerative change of the left greater than right sacroiliac joints with fluid tracking within the left sacroiliac joint noted. Findings appear similar to previous MRI 07/14/2018. IMPRESSION: Status post laminectomy and fusion of L4-5 and L5-S1. Multilevel degenerative changes most prominent at L2-3 where there is severe narrowing of the spinal canal and bilateral foramina, right greater than left with crowding of the cauda equina nerve roots. There is also moderate to severe bilateral foraminal stenosis at L3-4. Findings appear grossly unchanged compared to previous MRI 07/14/2018. Signed by: Damari Gibson 07/27/2023 10:41 AM Dictation workstation: [id number] Assessment/Plan Diagnoses and all orders for this visit: Chronic pain syndrome - pregabalin (Lyrica) 200 mg capsule; Take 1 capsule (200 mg) by mouth 2 times a day. Degeneration of intervertebral disc of lumbar region, unspecified whether pain present - pregabalin (Lyrica) 200 mg capsule; Take 1 capsule (200 mg) by mouth 2 times a day. Lumbosacral radiculopathy - pregabalin (Lyrica) 200 mg capsule; Take 1 capsule (200 mg) by mouth 2 times a day. Spondylosis of lumbosacral region, unspecified spinal osteoarthritis complication status H/O arthrodesis Neurogenic claudication due to lumbar spinal stenosis Patient is a 73-year-old female with the above-mentioned medical diagnoses following up today afterseeing the surgeon and switching from gabapentin to Lyrica. She states that the surgeon is awaitingsome imaging. She had recent x- rays and she is getting ready to have a bone density in a few weeks.She has an appointment with them in March to discuss her options. She states that a revision surgery was discussed but they wanted this testing. She is not sure if she wants to do this or not but is thinking about it. In regards to her pain we switch from gabapentin to Lyrica. 150 mg twice daily. She did not notice much by the way of improvement of her pain but did not have any side effects. We discussed increasing this. 200 mg twice a day. OARRS reviewed. Prescription sent. At this time, she is going to switch the medication and follow-up in March after seeing the surgeon. She will call us in the interim should she require anything from our services. [facility] Discharge instructions* Attachments The following attachments cannot be sent through Care Everywhere. * Diarrhea, Adult ED ([place]) * Viral gastroenteritis in adults ([place]) [facility] Work Phone: Reason for referral (narrative)* Consultation (Routine) - Authorized Specialty Diagnoses / Procedures Referred By Contac t Referred To Contact Primary Care Diagnoses Anxiety Chronic pain syndrome Primary hypertension Hypercholesteremia Osteoporosis, unspecified osteoporosis type, unspecified pathological fracture presence Primary generalized (osteo)arthritis Rheumatoid arthritis involving multiple sites, unspecified whether rheumatoid factor present (CMS/[facility]) Class 1 obesity with serious comorbidity and body mass index (BMI) of 34.0 to 34.9 in adult, unspecified obesity type Gastroesophageal reflux disease without esophagitis Vitamin D deficiency Procedures Follow Up In Primary Care - Medicare Annual Jasmine Mathias MD [address] [facility] [place] [address] Referral ID Status Reason Start Date Expiration Date V isits Requested Visits Authorized [id number] Authorized 11/10/2022 05/09/2023 1 1 * Imaging (Routine) - Authorized Specialty Diagnoses / Procedures Referred By Contac t Referred To Contact Radiology Diagnoses Neck pain Procedures XR cervical spine complete 4-5 views Jasmine Mathias MD [address] [place] [address] Referral ID Status Reason Start Date Expiration Date Visits Requested Visits Authorized [id number] Authorized Perform Procedure 11/10/2022 05/09/2023 1 1 [facility] Work Phone: Reason for referral (narrative)* Consultation (Routine) - Pending Review Specialty Diagnoses / Procedures Referred By Contac t Referred To Contact Podiatry Procedures [place] OFFICE/OUTPATIENT [facility] 60-74 MINUTES Jasmine Mccormick PA-C [address] [place] [address] Referral ID Status Reason Start Date Expiration Date Visits Requested Visits Authorized [id number] Pending Review Specialty Services Required 12/26/2022 06/24/2023 1 1 [facility] Work Phone: Reason for referral (narrative)* Procedure (Routine) - Authorized Specialty Diagnoses / Procedures Referred By Maxwell melendez Referred To Contact Pain Medicine / Procedural Diagnoses Cervical radiculitis Procedures Epidural Steroid Injection Mauricio Mancilla PA-C [address] [place] [address] [place] [address] [address] Referral ID Status Reason Start Date Expiration Date Visits Requested Visits Authorized [id number] Authorized Perform Procedure 03/01/2023 02/29/2024 1 1 [facility] Work Phone: Reason for referral (narrative)* Consultation (Routine) - Authorized Specialty Diagnoses / Procedures Referred By Maxwell melendez Referred To Contact Primary Care Diagnoses Anxiety Chronic pain syndrome Primary hypertension Hypercholesteremia Osteoporosis, unspecified osteoporosis type, unspecified pathological fracture presence Primary generalized (osteo)arthritis Rheumatoid arthritis involving multiple sites, unspecified whether rheumatoid factor present (CMS/HCC) Gastroesophageal reflux disease without esophagitis Vitamin D deficiency Edema, unspecified type Class 2 severe obesity with serious comorbidity and body mass index (BMI) of 35.0 to 35.9 in adult, unspecified obesity type (CMS/HCC) Procedures Follow Up In Primary Care - Established Jasmine Mathias MD [address] [facility] [place] [address] Referral ID Status Reason Start Date Expiration Date V isits Requested Visits Authorized [id number] Authorized 05/13/2023 05/12/2024 1 1 * Imaging (Routine) - Authorized Specialty Diagnoses / Procedures Referred By Maxwell melendez Referred To Contact Radiology Diagnoses Encounter for screening mammogram for breast cancer Procedures BI mammo bilateral screening tomosynthesis Jasmine Mathias MD [address] [facility] Medical [place] [id number] Referral ID Status Reason Start Date Expiration Date Visits Requested Visits Authorized [id number] Authorized Perform Procedure 05/13/2023 05/12/2024 1 1 [facility] Work Phone: Rewlag for referral (narrative)* Procedure (Routine) - Pending Review Specialty Diagnoses / Procedures Referred By Contac t Referred To Contact Diagnoses Lumbosacral radiculopathy Neurogenic claudication due to lumbar spinal stenosis Procedures Transforaminal Mauricio Mancilla PA-C [address] [place] [address] Referral ID Status Reason Start Date Expiration Date Visits Requested Visits Authorized [id number] Pending Review Perform Procedure 08/09/2023 08/08/2024 1 1 [facility] Work Phone: Retotp for referral (narrative)* Consultation (Routine) - Authorized Specialty Diagnoses / Procedures Referred By Contac t Referred To Contact Primary Care Diagnoses Anxiety Chronic pain syndrome Primary hypertension Hypercholesteremia Osteoporosis, unspecified osteoporosis type, unspecified pathological fracture presence Primary generalized (osteo)arthritis Rheumatoid arthritis involving multiple sites, unspecified whether rheumatoid factor present (Multi) Gastroesophageal reflux disease without esophagitis Vitamin D deficiency Edema, unspecified type Class 2 severe obesity with serious comorbidity and body mass index (BMI) of 35.0 to 35.9 in adult, unspecified obesity type (Multi) Procedures Follow Up In Primary Care - Medicare Annual Jasmine Mathias MD [address] [facility] [place] [address] Referral ID Status Reason Start Date Expiration Date V isits Requested Visits Authorized [id number] Authorized 11/10/2023 11/09/2024 1 1 [facility] Work Phone: Reason for referral (narrative)* Consultation (Routine) - Authorized Specialty Diagnoses / Procedures Referred By Contac t Referred To Contact Neurosurgery Diagnoses Neurogenic claudication due to lumbar spinal stenosis Lumbosacral radiculopathy Degenerative disc disease, lumbar H/O arthrodesis Mauricio Mancilla PA-C [address] [place] [address] Bryan Luz MD [address] [facility], [address] [place] [address] Referral ID Status Reason Start Date Expiration Date Visits Requested Visits Authorized [id number] Authorized Specialty Services Required 11/17/2023 11/16/2024 1 1 [facility] Work Phone: Renvkg for referral (narrative)No reason for referral information [facility]Wh[facility] Work Phone: Reason for visit Narrative* Procedure (Routine) - Authorized Specialty Diagnoses / Procedures Referred By Contac t Referred To Contact Pain Medicine / Procedural Diagnoses Cervical radiculitis Procedures Epidural Steroid Injection Mauricio Mancilla PA-C [address] [place] [address] [place] [address] [address] Referral ID Status Reason Start Date Expiration Date Visits Requested Visits Authorized [id number] Authorized Perform Procedure 03/01/2023 02/29/2024 1 1 [facility] Work Phone: Reason for visit Narrative* Consultation (Routine) - Closed Specialty Diagnoses / Procedures Referred By Contac t Referred To Contact Primary Care Diagnoses Anxiety Chronic pain syndrome Primary hypertension Hypercholesteremia Osteoporosis, unspecified osteoporosis type, unspecified pathological fracture presence Primary generalized (osteo)arthritis Rheumatoid arthritis involving multiple sites, unspecified whether rheumatoid factor present (CMS/[facility]) Class 1 obesity with serious comorbidity and body mass index (BMI) of 34.0 to 34.9 in adult, unspecified obesity type Gastroesophageal reflux disease without esophagitis Vitamin D deficiency Procedures Follow Up In Primary Care - Medicare Annual Jasmine Mathias MD [address] [facility] Medical Office [place] [phone] Referral ID Status Reason Start Date Expiration Date Visits Re quested Visits Authorized [id number] Closed 11/10/2022 05/09/2023 1 1 [facility] Work Phone: reason for visit Narrative* Procedure (Routine) - Authorized Specialty Diagnoses / Procedures Referred By Maxwell t Referred To Contact Pain Medicine / Procedural Diagnoses Lumbosacral radiculopathy Neurogenic claudication due to lumbar spinal stenosis Procedures Transforaminal Mauricio Mancilla, BERRY [address] [place] [address] [address] Referral ID Status Reason Start Date Expiration Date Visits Requested Visits Authorized [id number] Authorized Perform Procedure 08/09/2023 08/08/2024 1 1 [facility] Work Phone: reason for visit Narrative* Imaging (Routine) - Pending Review Specialty Diagnoses / Procedures Referred By Maxwell melendez Referred To Contact Radiology Diagnoses Neurogenic claudication due to lumbar spinal stenosis Lumbosacral radiculopathy Procedures XR EOS full body EAM through ankle 2 views XR EOS full spine 2 view scolosis Bryan Luz MD [address] [facility], [facility] [address] [place] [address] Phone: tel: fax: Referral ID Status Reason Start Date Expiration Date Visits Requested Visits Authorized [id number] Pending Review Perform Procedure 12/12/2023 12/11/2024 1 1 [facility] Work Phone: reason for visit Narrative* Imaging (Routine) - Authorized Specialty Diagnoses / Procedures Referred By Maxwell t Referred To Contact Radiology Diagnoses 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HHS-HCC) Pain of right hip Procedures CT pelvis wo IV contrast Jasmine Mathias MD [address] [address] Phone: tel: fax: Referral ID Status Reason Start Date Expiration Date Visits Requested Visits Authorized [id number] Authorized Perform Procedure 01/30/2024 01/29/2025 1 1 [facility] Work Phone: Rekwjf for visit Narrative* Imaging (Routine) - Authorized Specialty Diagnoses / Procedures Referred By Contac t Referred To Contact Radiology Diagnoses 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HHS-HCC) Pain of right hip Procedures CT hip right wo IV contrast Jasmine Mathias MD [address] [place] [id number] Phone: tel: fax: Referral ID Status Reason Start Date Expiration Date Visits Requested Visits Authorized [id number] Authorized Perform Procedure 01/30/2024 01/29/2025 1 1 [facility] Work Phone: Rejoaw for visit Narrative* Imaging (Routine) - Pending Review Specialty Diagnoses / Procedures Referred By Contac t Referred To Contact Radiology Diagnoses Senile osteoporosis Procedures XR DEXA bone density XR DEXA bone density axial skeleton w VFA Bryan Luz MD [address] [facility], [facility] [address] [place] [address] Phone: tel: fax: Referral ID Status Reason Start Date Expiration Date Visits Requested Visits Authorized [id number] Pending Review Perform Procedure 12/12/2023 12/11/2024 1 1 [facility] Work Phone: reason for visit Narrative* Consultation (Routine) - Authorized Specialty Diagnoses / Procedures Referred By Contac t Referred To Contact Primary Care Diagnoses Anxiety Chronic pain syndrome Primary hypertension Hypercholesteremia Osteoporosis, unspecified osteoporosis type, unspecified pathological fracture presence Primary generalized (osteo)arthritis Rheumatoid arthritis involving multiple sites, unspecified whether rheumatoid factor present (Multi) Gastroesophageal reflux disease without esophagitis Vitamin D deficiency Edema, unspecified type Class 2 severe obesity with serious comorbidity and body mass index (BMI) of 35.0 to 35.9 in adult, unspecified obesity type (Multi) Procedures Follow Up In Primary Care - Established Jasmine Mathias MD [address] [facility] [place] [address] Referral ID Status Reason Start Date Expiration Date V isits Requested Visits Authorized [id number] Authorized 05/13/2023 05/12/2024 1 1 [facility] Work Phone: reason for visit Narrative* Imaging (Routine) - Authorized Specialty Diagnoses / Procedures Referred By Maxwell t Referred To Contact Radiology Diagnoses Visit for screening mammogram Procedures BI mammo bilateral screening tomosynthesis Jasmine Mathias MD [address] [place] [address] Phone: tel: fax: Referral ID Status Reason Start Date Expiration Date Visits Requested Visits Authorized [id number] Authorized Perform Procedure 05/14/2024 05/14/2025 1 1 [facility] Work Phone: reason for visit Narrative* Imaging (Routine) - Authorized Specialty Diagnoses / Procedures Referred By Samsonac t Referred To Contact Pain Medicine / Radiology Diagnoses Lumbosacral radiculopathy Procedures [place] pain management Mauricio Mancilla PA-C [address] [place] [address] Phone: tel: fax: [facility] [address] [place] [phone] Phone: tel: fax: Referral ID Status Reason Start Date Expiration Date Visits Requested Visits Authorized [id number] Authorized Perform Procedure 04/11/2024 04/11/2025 1 1 [facility] Work Phone: reason for visit Narrative* Imaging (Routine) - Authorized Specialty Diagnoses / Procedures Referred By Contac t Referred To Contact Radiology Diagnoses Acute pain of right shoulder Procedures XR shoulder right 2+ views Jasmine Mathias MD [address] [place] [id number] Phone: tel: fax: Referral ID Status Reason Start Date Expiration Date Visits Requested Visits Authorized [id number] Authorized Perform Procedure 06/26/2024 06/26/2025 1 1 [facility] Work Phone: Reason for visit Narrative* Imaging (Routine) - Authorized Specialty Diagnoses / Procedures Referred By Contac t Referred To Contact Radiology Diagnoses Acute pain of right shoulder Procedures XR cervical spine complete 4-5 views aJsmine Mathias MD [address] [place] [address] Phone: tel: fax: Referral ID Status Reason Start Date Expiration Date Visits Requested Visits Authorized [id number] Authorized Perform Procedure 06/26/2024 06/26/2025 1 1 [facility] Work Phone: Reason for visit Narrative* Imaging (Routine) - Authorized Specialty Diagnoses / Procedures Referred By Contac t Referred To Contact Radiology Diagnoses Cervical radiculitis Anterolisthesis of cervical spine Procedures MR cervical spine w and wo IV contrast Celeste Moran, [employer] [address] [place] [address] Phone: tel: fax: Referral ID Status Reason Start Date Expiration Date Visits Requested Visits Authorized [id number] Authorized Perform Procedure 07/16/2024 07/16/2025 1 1 [facility] Work Phone: Assessments Diagnosis Hiatal hernia with GERD with out esophagitis - Primary Ineffective esophageal motil ity Esophageal mass Diagnosis Heartburn - Primary Hiatal hernia Diaphragmatic hernia without mention of obstruction or gangrene Gaseous regurgitation Flatulence, eructation, and gas pain Nausea and vomiting, intract ability of vomiting not specified, unspecified vomiting type Diagnosis 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, subsequent encounter - Primary Diagnosis Hiatal hernia with GERD with out esophagitis - Primary Diagnosis Hiatal hernia with GERD with out esophagitis - Primary Diagnosis Hiatal hernia with GERD with out esophagitis - Primary Diagnosis Age-related osteoporosis without current pathological fracture- Primary Senile osteoporosis Nontoxic multinodular goiter Diagnosis Age-related osteoporosis without current pathological fracture- Primary Senile osteoporosis Diagnosis Left hip pain Pain in joint, pelvic region and thigh Diagnosis Bilateral pubic rami fractures (HCC) Diagnosis Age-related osteoporosis without current pathological fracture- Primary Senile osteoporosis Diagnosis Age-related osteoporosis without current pathological fracture- Primary Senile osteoporosis History of Present Illness * Delvis Moncada MD - 02/03/2018 9:25 AM EST Formatting of this note may be different from the original. [facility] [address] (11) [facility] [address] [facility] [id number] Narendra Arguelles is a 67 y.o. female being seen on 02/03/18 for Chief Complaint Patient presents with Follow-up HPI: The patient presents today to discuss surgical treatment of her hiatal hernia. She has previously undergone an EGD which revealed a Hill grade 4 type III paraesophageal hiatal hernia. Biopsies of theesophagus were negative for Chaparro's esophagus. She had previously undergone an EGD which showed anodular appearing mass at the 2 to 3 o'clock position in the distal esophagus. Biopsies at that time revealed polypoid granulation tissue but no evidence of malignancy. She has been on Nexium 40 mg twice daily and Zantac 150 mg twice daily. She is also been working on weight loss. She has previously undergone a high resolution esophageal manometry which revealed a short LES, complete loss of LES function, a 2.5 cm manometrically measured hiatal hernia, and ineffective esophageal motility. Incomplete bolus clearance was seen on 90% of the supine what swallows on impedance evaluation. Her BMI is now below 40. Past Medical History: Diagnosis Date Anxiety Arthritis Hiatal hernia 08/16/2017 Hill grade IV, moderate sized type III paraesophageal Hyperlipidemia Hypertension Obesity Osteoporosis Past Surgical History: Procedure Laterality Date APPENDECTOMY ARTHROSCOPY KNEE Left CHOLECYSTECTOMY COLONOSCOPY 01/28/2015 ESOPHAGEAL MANOMETRY 08/16/2017 ESOPHAGOGASTRODUODENOSCOPY 01/28/2017 Dr. Cabrera ESOPHAGOGASTRODUODENOSCOPY 08/16/2017 with biopsies...Dr. Moncada ESOPHAGOGASTRODUODENOSCOPY 11/15/2017 WATS 3D brush biopsy, Type 3 hernia....Dr Moncada foot spurs HIP FRACTURE SURGERY Right Dr Hernández HYSTERECTOMY with BSO LUMBAR FUSION MANDIBLE SURGERY POSTERIOR REPAIR OF RECTOCELE 2002 SHOULDER ARTHROSCOPY Bilateral TONSILLECTOMY TUBAL LIGATION US BIOPSY LYMPH NODE LEFT Allergies Allergen Reactions Codeine Other reaction(s): Upset stomach and cramps Morphine Chest pain felt like having a heart attack Current Outpatient Prescriptions Medication Sig Dispense Refill ALPRAZolam (XANAX) 0.25 MG tablet Take 0.25 mg by mouth 2 (two) times a day as needed for sleep. atorvastatin (LIPITOR) 20 MG tablet Take 20 mg by mouth daily . calcitonin,salmon,synthetic (CALCITONIN, SALMON, NASL) Instill into each nostril. esomeprazole (NEXIUM) 40 MG capsule Take 40 mg by mouth 2 (two) times a day. furosemide (LASIX) 20 MG tablet gabapentin (NEURONTIN) 300 MG capsule Take 300 mg by mouth 4 (four) times a day . lisinopril (PRINIVIL,ZESTRIL) 5 MG tablet Take 5 mg by mouth daily . meloxicam (MOBIC) 15 MG tablet Take 15 mg by mouth daily. nortriptyline (PAMELOR) 25 MG capsule Take 25 mg by mouth nightly Reasonstake 2 tabs at bedtime. ranitidine (ZANTAC) 150 MG tablet daily . sucralfate (CARAFATE) 1 gram tablet Take 1 g by mouth 4 (four) times a day before meals. traMADol (ULTRAM) 50 mg tablet Take 1 tablet (50 mg total) by mouth every 6 (six) hours as needed for pain. 60 tablet 0 No current facility-administered medications for this visit. Social History Substance Use Topics Smoking status: Former Smoker Smokeless tobacco: Never Used Alcohol use No Family History Problem Relation Age of Onset Stroke Mother Diabetes Mother Hypertension Mother Heart failure Father Aneurysm Father Heart disease Brother Hypertension Brother Stomach cancer Maternal Grandmother Diabetes Sister Throat cancer Other REVIEW OF SYSTEMS Pertinent positives are listed in HPI, PMSH, SH, ALL, otherwise all systems reviewed below are negative. The following systems were reviewed: [x] Const (fevers, chills, wt. loss, fatigue) [x] CV (HTN, CP, BULLOCK, edema, DVT) [x] Resp (SOB, pleurisy, asthma, apnea) [x] GI (N, V, D, C, M, abd pain, appetite) [x] Musc (back pain, joint stiffness, gout) [x] Neuro (seizures, syncope, paralysis) [x] Psych (depression, anxiety) [x] Endo (hot/cold intol, polyuria[DM]) [x] Hem/Lymph (Anemia, LA, bleeding) [x] Allerg/Immun (seasonal, immuniz) [x] Eyes (diplopia, cataracts) [x] ENT/mouth (dysphagia, epistaxis) [x] (dysuria, hematuria) [x] Skin/Breast (moles, rash, lumps, nipple changes) Pertinent Positives: See HPI Pertinent Negatives: See HPI Physical Exam: BP (!) 177/83 Pulse 99 Temp 98.5 ?F (36.9 ?C) (Oral) Ht 5' 1 Wt 94.3 kg (207 lb 14.4 oz) SpO2 96% BMI 39.28 kg/m Body mass index is 39.28 kg/m . Constitutional: Well nourished, well developed person in no acute distress. Ambulates without difficulty. Head: Atraumatic and normocephalic. Face: Within normal limits. Eyes: Pupils equal, round, reactive to light. Sclera white. Mouth: Moist mucous membranes, normal dentation. Neck: supple, trachea midline,no masses, no incisions. Lymphatic: No cervical or inguinal lymphadenopathy. Heart: Regular rate and rhythm. Lungs: Clear to auscultation. Abdomen: Soft, non-distended, non-tender, no heptasplenomegaly, no umbilica, incisional, femoral, or inguinal hernias. Pelvis: Stable, non-tender. Skin: Warm, moist, normal skin turgor. Peripheral Vascular: Palapable carotid, radial, and femoral pulses, no peripheral edema. Neuropsych: Alert and oriented, judgement and insight intact. Normal Gait. Assessment: SNOMED CT(R) 1. Hiatal hernia with GERD without esophagitis GASTROESOPHAGEAL REFLUX DISEASE WITH HIATAL HERNIA No orders of the defined types were placed in this encounter. Plan: Schedule laparoscopic hiatal hernia repair with mesh and Rosalva fundoplication. Risks, benefits, and alternatives were discussed with the patient prior to obtaining consent. Delvis Moncada MD in this encounter* Delvis Moncada MD - 03/09/2018 11:50 AM EST Formatting of this note may be different from the original. [facility] [address] ([address]) [facility] [address] [facility] [id number] Narendra Arguelles is a 67 y.o. female being seen on 03/09/18 for Chief Complaint Patient presents with Follow-up Hiatal hernia with GERD HPI: Patient presents today to update her history and physical prior to undergoing surgery for a large type III paraesophageal hiatal hernia. She has previously undergone an EGD which revealed a Hill grade 4 type III paraesophageal hiatal hernia. Biopsies of the esophagus were negative for Chaparro's esophagus. She had previously undergone an EGD which showed a nodular appearing mass at the 2 to 3 o'clock position in the distal esophagus. Biopsies at that time revealed polypoid granulation tissue butno evidence of malignancy. She has been on Nexium 40 mg twice daily and Zantac 150 mg twice daily. She is also been working on weight loss. She has previously undergone a high resolution esophageal manometry which revealed a short LES, complete loss of LES function, a 2.5 cm manometrically measuredhiatal hernia, and ineffective esophageal motility. Incomplete bolus clearance was seen on 90% of the supine what swallows on impedance evaluation. Her BMI is now below 38. Past Medical History: Diagnosis Date Anxiety Arthritis Hiatal hernia 08/16/2017 Hill grade IV, moderate sized type III paraesophageal Hyperlipidemia Hypertension Obesity Osteoporosis Past Surgical History: Procedure Laterality Date APPENDECTOMY ARTHROSCOPY KNEE Left CHOLECYSTECTOMY COLONOSCOPY 01/28/2015 ESOPHAGEAL MANOMETRY 08/16/2017 ESOPHAGOGASTRODUODENOSCOPY 01/28/2017 Dr. Cabrera ESOPHAGOGASTRODUODENOSCOPY 08/16/2017 with biopsies...Dr. Moncada ESOPHAGOGASTRODUODENOSCOPY 11/15/2017 WATS 3D brush biopsy, Type 3 hernia....Dr Moncada foot spurs HIP FRACTURE SURGERY Right Dr Hernández HYSTERECTOMY with BSO LUMBAR FUSION MANDIBLE SURGERY POSTERIOR REPAIR OF RECTOCELE 2002 SHOULDER ARTHROSCOPY Bilateral TONSILLECTOMY TUBAL LIGATION US BIOPSY LYMPH NODE LEFT Allergies Allergen Reactions Codeine Other reaction(s): Upset stomach and cramps Morphine Chest pain felt like having a heart attack Current Outpatient Prescriptions Medication Sig Dispense Refill ALPRAZolam (XANAX) 0.25 MG tablet Take 0.25 mg by mouth 2 (two) times a day as needed for sleep. atorvastatin (LIPITOR) 20 MG tablet Take 20 mg by mouth daily . calcitonin,salmon,synthetic (CALCITONIN, SALMON, NASL) Instill into each nostril. esomeprazole (NEXIUM) 40 MG capsule Take 40 mg by mouth 2 (two) times a day. furosemide (LASIX) 20 MG tablet gabapentin (NEURONTIN) 300 MG capsule Take 300 mg by mouth 4 (four) times a day . lisinopril (PRINIVIL,ZESTRIL) 5 MG tablet Take 5 mg by mouth daily . meloxicam (MOBIC) 15 MG tablet Take 15 mg by mouth daily. nortriptyline (PAMELOR) 25 MG capsule Take 25 mg by mouth nightly Reasonstake 2 tabs at bedtime. ranitidine (ZANTAC) 150 MG tablet daily . sucralfate (CARAFATE) 1 gram tablet Take 1 g by mouth 4 (four) times a day before meals. traMADol (ULTRAM) 50 mg tablet Take 1 tablet (50 mg total) by mouth every 6 (six) hours as needed for pain. 60 tablet 0 No current facility-administered medications for this visit. Social History Substance Use Topics Smoking status: Former Smoker Smokeless tobacco: Never Used Alcohol use No Family History Problem Relation Age of Onset Stroke Mother Diabetes Mother Hypertension Mother Heart failure Father Aneurysm Father Heart disease Brother Hypertension Brother Stomach cancer Maternal Grandmother Diabetes Sister Throat cancer Other REVIEW OF SYSTEMS Pertinent positives are listed in HPI, PMSH, SH, ALL, otherwise all systems reviewed below are negative. The following systems were reviewed: [x] Const (fevers, chills, wt. loss, fatigue) [x] CV (HTN, CP, BULLOCK, edema, DVT) [x] Resp (SOB, pleurisy, asthma, apnea) [x] GI (N, V, D, C, M, abd pain, appetite) [x] Musc (back pain, joint stiffness, gout) [x] Neuro (seizures, syncope, paralysis) [x] Psych (depression, anxiety) [x] Endo (hot/cold intol, polyuria[DM]) [x] Hem/Lymph (Anemia, LA, bleeding) [x] Allerg/Immun (seasonal, immuniz) [x] Eyes (diplopia, cataracts) [x] ENT/mouth (dysphagia, epistaxis) [x] (dysuria, hematuria) [x] Skin/Breast (moles, rash, lumps, nipple changes) Pertinent Positives: See HPI Pertinent Negatives: See HPI Physical Exam: BP (!) 136/93 Pulse (!) 106 Temp 98.8 F (37.1 C) (Oral) Ht 5' 1 Wt 91.3 kg (201 lb 4.8 oz) SpO2 98% BMI 38.04 kg/m Body mass index is 38.04 kg/m . Constitutional: Well nourished, well developed person in no acute distress. Ambulates without difficulty. Head: Atraumatic and normocephalic. Face: Within normal limits. Eyes: Pupils equal, round, reactive to light. Sclera white. Mouth: Moist mucous membranes, normal dentation. Neck: supple, trachea midline,no masses, no incisions. Lymphatic: No cervical or inguinal lymphadenopathy. Heart: Regular rate and rhythm. Lungs: Clear to auscultation. Abdomen: Soft, non-distended, non-tender, no heptasplenomegaly, no umbilica, incisional, femoral, or inguinal hernias. Pelvis: Stable, non-tender. Skin: Warm, moist, normal skin turgor. Peripheral Vascular: Palapable carotid, radial, and femoral pulses, no peripheral edema. Neuropsych: Alert and oriented, judgement and insight intact. Normal Gait. Assessment: SNOMED CT(R) 1. Hiatal hernia with GERD without esophagitis GASTROESOPHAGEAL REFLUX DISEASE WITH HIATAL HERNIA No orders of the defined types were placed in this encounter. Plan: Proceed with laparoscopic hiatal hernia repair with mesh and Rosalva fundoplication. Risks, benefits, and alternatives were discussed with the patient in detail prior to obtaining consent. Delvis Moncada MD in this encounter* Sherwin Reynolds RN - 02/20/2019 9:30 AM EST Barcode for Reclast will not scan, says incorrect med. Verified label ready correct patient and Reclast 5mg/100ml with Kiesha Almazan RN. Discharged ambulatory in stable condition. Verbalizes understanding of instructions. documented in this encounter* Diego José MD - 06/11/2019 10:08 AM EDT Chief Complaint Patient presents with Pelvis - Pain HPI: Narendra Arguelles is here for evaluation of her left hip pain. She was referred to the office by [facility]. She has a 1-1/2-week history of acute onset left hip pain without traumatic event.Her past history is interesting in the fact that she has had spontaneous bilateral sacral and pubicrami fractures. Her sacral fractures were treated with cement fixation. She reports that this was y ears ago the sacral fractures occurred prior to the pubic rami fractures apparently. The rami fractures were also years ago. She had been doing well until approximately a week and a half ago when she simply was walking to the bathroom when getting up from bed and had severe pain in the left hip region. The pain was severe enough to the point where she had difficulty bearing weight and standing. This has improved over the past week but is still present. She is experiencing the pain in the groinand outer aspect of the left hip. She reports that the pain does shoot down her thigh but does not go past her knee. She is using tramadol for her discomfort. She is not using assistive devices for am bulation. PE: Vitals: 06/11/19 0908 BP: (!) 156/81 Pulse: 73 Temp: 98 F (36.7 C) TempSrc: Temporal SpO2: 98% Weight: 88 kg (194 lb) Height: 5' 1 Body mass index is 36.66 kg/m . She is well-appearing, and in no acute distress. Her mood and affect are appropriate. Breathing is not labored. Evaluation of the left lower extremity reveals good range of motion of her hip in abduction and flexion when compared to the right side. She does have some decreased strength in hip flexion secondaryto pain. She has full motion to her knee. Her calf is soft and nontender. Her foot is well-perfused. She does not have any significantly increased pain with maximal passive external rotation of the femur. Internal rotation does re-create some of her discomfort in the groin and down the thigh. Images: Xr Pelvis Inlet/outlet 3+ Views Result Date: 06/11/2019 I reviewed the AP, inlet, and outlet views that were obtained in the office today. 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 She is status post right hip arthroplasty with the implant in good position. There is also evidence of prior lumbar fusion with instrumentation that appears to be in good position. There is radiopaque material within the bilateral sacral/SI joint regions. A/P: Narendra Arguelles has acute onset of left hip pain with no obvious fractures noted on today's x-rays. With her history this is a concern but there is no obvious findings. We could obtain an MRI to evaluate the osseous structures as well as the soft tissue structures. However, her exam is very benigntoday and she is improving over a week. Is only been a week and a half of symptoms. I do not feel an MRI is warranted at this time. As long she continues to improve then there would be no need for any intervention or additional studies. However, if her pain becomes worse or does not improve then anMRI would be the next study to obtain. She is happy with this plan. She is happy that no intervention needs to occur. She will follow-up as needed. Orders Placed This Encounter methotrexate (TREXALL) 2.5 MG tablet leucovorin (WELLCOVORIN) 15 MG tablet This note was generated using voice recognition software and may contain errors including spelling,grammatical, and wrong word errors. documented in this encounter* Mary Carmen Tovar MD - 01/03/2020 10:00 AM EDT History of Present Illness osteoporosis: This is a follow up visit to the office. She has a history of a spontaneous hip fracture approximately 2011. Approximately 2013, developed bilateral spontaneous pelvic fractures. No parental history of hip fracture. No history of nephrolithiasis. Patient was started on Forteo, she took the agent for 8 months, she was then switched to Medicare and the agent was unaffordable. Since that time, she is only been taking nasal calcitonin. Took Fosamax for short period of time with gastric upset and major gastric issues. Current Vitamin D level of 54 ng/mL. Normal renal function and calcium levels. she received her first dose of Reclast in January 2018 and in January 2019 without adverse reaction. Bone mineral density test performed in July 2019 demonstrates improvement of the leftfemoral neck from T score -2.8 up to T score -2.5. Left forearm T score = -3.7. Multinodular goiter: It appears there is a history of a partial thyroidectomy for a large nodule. Thyroid levels are perfect. Neck ultrasound performed in fall demonstrated a normal right thyroid lobe, left lobe and isthmus surgically absent. Review of Systems Nurse Note: Review of Systems Constitutional: Positive for fatigue (at times). Negative for chills, diaphoresis, fever and unexpected weight change. Eyes: Negative for pain. Respiratory: Negative for cough, shortness of breath and wheezing. Cardiovascular: Negative for chest pain, palpitations and leg swelling. Gastrointestinal: Negative for constipation, diarrhea, nausea and vomiting. Endocrine: Negative for cold intolerance and heat intolerance. Neurological: Negative for tremors, weakness and numbness. Psychiatric/Behavioral: Positive for sleep disturbance. The patient is not nervous/anxious. Nursing Assessment: Physical Exam Vitals: Blood pressure 137/83, pulse 73, temperature 97.6 F (36.4 C), temperature source Temporal, height 1.549 m (5' 1), weight 80.3 kg (177 lb). Physical Exam Constitutional: General: She is not in acute distress. Appearance: She is not diaphoretic. HENT: Head: Normocephalic. Neck: Thyroid: No thyromegaly. Trachea: No tracheal deviation. Comments: Necklace scar, no palpable thyroid nodule, no lymphadenopathy Cardiovascular: Rate and Rhythm: Normal rate and regular rhythm. Heart sounds: Normal heart sounds. No murmur. Pulmonary: Effort: No respiratory distress. Breath sounds: No wheezing. Lymphadenopathy: Cervical: No cervical adenopathy. Skin: General: Skin is warm and dry. Neurological: Mental Status: She is alert and oriented to person, place, and time. Psychiatric: Judgment: Judgment normal. Neurologic Exam Mental Status Oriented to person, place, and time. Assessment and Plan Osteoporosis: We will arrange for her third infusion of Reclast in January 2020. We discussed the results of her bone mineral density test, due for repeat bone mineral density test in spring. Follow-up visit in December 2020 with repeat blood work. Multinodular goiter: No need for further ultrasonography unless a palpable abnormality is noted. * Simin Tena - 01/03/2020 10:00 AM EDT Nurse Note: Review of Systems Constitutional: Positive for fatigue (at times). Negative for chills, diaphoresis, fever and unexpected weight change. Eyes: Negative for pain. Respiratory: Negative for cough, shortness of breath and wheezing. Cardiovascular: Negative for chest pain, palpitations and leg swelling. Gastrointestinal: Negative for constipation, diarrhea, nausea and vomiting. Endocrine: Negative for cold intolerance and heat intolerance. Neurological: Negative for tremors, weakness and numbness. Psychiatric/Behavioral: Positive for sleep disturbance. The patient is not nervous/anxious. Nursing Assessment: Physical Exam documented in this encounter* Joslyn Jameson - 02/01/2019 2:20 PM EST Patient called in asking about her getting her Reclast. She is due for it this month. documented in this encounter Summary Purpose Family History No Family History Records Found Grandparent Name Dates Details Family history of diabetes m ellitus(V18.0, Z83.3) Status:Active uncle Name Dates Details Family history of throat can cer(V16.0, Z80.0) Status:Active Mother Name Dates Details Family history of diabetes m ellitus(V18.0, Z83.3) Status:Active Family history of hypertensi on(V17.49, Z82.49) Status:Active Family history of heart fail ure(V17.49, Z82.49) Status:Active Father Name Dates Details Family history of heart fail ure(V17.49, Z82.49) Status:Active Sister Name Dates Details Family history of heart fail ure(V17.49, Z82.49) Status:Active Brother Name Dates Details Family history of hypertensi on(V17.49, Z82.49) Status:Active Family history of heart fail ure(V17.49, Z82.49) Status:Active Grandparent Name Dates Details Family history of diabetes m ellitus(V18.0, Z83.3) Status:Active uncle Name Dates Details Family history of throat can cer(V16.0, Z80.0) Status:Active Mother Name Dates Details Family history of diabetes m ellitus(V18.0, Z83.3) Status:Active Family history of hypertensi on(V17.49, Z82.49) Status:Active Family history of heart fail ure(V17.49, Z82.49) Status:Active Father Name Dates Details Family history of heart fail ure(V17.49, Z82.49) Status:Active Sister Name Dates Details Family history of heart fail ure(V17.49, Z82.49) Status:Active Brother Name Dates Details Family history of hypertensi on(V17.49, Z82.49) Status:Active Family history of heart fail ure(V17.49, Z82.49) Status:Active Grandparent Name Dates Details Family history of diabetes m ellitus(V18.0, Z83.3) Status:Active uncle Name Dates Details Family history of throat can cer(V16.0, Z80.0) Status:Active Mother Name Dates Details Family history of diabetes m ellitus(V18.0, Z83.3) Status:Active Family history of hypertensi on(V17.49, Z82.49) Status:Active Family history of heart fail ure(V17.49, Z82.49) Status:Active Father Name Dates Details Family history of heart fail ure(V17.49, Z82.49) Status:Active Sister Name Dates Details Family history of heart fail ure(V17.49, Z82.49) Status:Active Brother Name Dates Details Family history of hypertensi on(V17.49, Z82.49) Status:Active Family history of heart fail ure(V17.49, Z82.49) Status:Active Grandparent Name Dates Details Family history of diabetes m ellitus(V18.0, Z83.3) Status:Active uncle Name Dates Details Family history of throat can cer(V16.0, Z80.0) Status:Active Mother Name Dates Details Family history of diabetes m ellitus(V18.0, Z83.3) Status:Active Family history of hypertensi on(V17.49, Z82.49) Status:Active Family history of heart fail ure(V17.49, Z82.49) Status:Active Father Name Dates Details Family history of heart fail ure(V17.49, Z82.49) Status:Active Sister Name Dates Details Family history of heart fail ure(V17.49, Z82.49) Status:Active Brother Name Dates Details Family history of hypertensi on(V17.49, Z82.49) Status:Active Family history of heart fail ure(V17.49, Z82.49) Status:Active Unknown Family Member Name Dates Details Family history of diabetes m ellitus: Grandparent, Mother(V18.0, Z83.3) Status:Active Family history of hypertensi on: Mother, Brother(V17.49, Z82.49) Status:Active Family history of heart fail ure: Mother, Father, Sister, Brother(V17.49, Z82.49) Status:Active Family history of throat can cer: Uncle(V16.0, Z80.0) Status:Active Unknown Family Member Name Dates Details Family history of diabetes m ellitus: Grandparent, Mother(V18.0, Z83.3) Status:Active Family history of hypertensi on: Mother, Brother(V17.49, Z82.49) Status:Active Family history of heart fail ure: Mother, Father, Sister, Brother(V17.49, Z82.49) Status:Active Family history of throat can cer: Uncle(V16.0, Z80.0) Status:Active Unknown Family Member Name Dates Details Family history of diabetes m ellitus: Grandparent, Mother(V18.0, Z83.3) Status:Active Family history of hypertensi on: Mother, Brother(V17.49, Z82.49) Status:Active Family history of heart fail ure: Mother, Father, Sister, Brother(V17.49, Z82.49) Status:Active Family history of throat can cer: Uncle(V16.0, Z80.0) Status:Active Unknown Family Member Name Dates Details Family history of diabetes m ellitus: Grandparent, Mother(V18.0, Z83.3) Status:Active Family history of hypertensi on: Mother, Brother(V17.49, Z82.49) Status:Active Family history of heart fail ure: Mother, Father, Sister, Brother(V17.49, Z82.49) Status:Active Family history of throat can cer: Uncle(V16.0, Z80.0) Status:Active Unknown Family Member Name Dates Details Family history of diabetes m ellitus: Grandparent, Mother(V18.0, Z83.3) Status:Active Family history of hypertensi on: Mother, Brother(V17.49, Z82.49) Status:Active Family history of heart fail ure: Mother, Father, Sister, Brother(V17.49, Z82.49) Status:Active Family history of throat can cer: Uncle(V16.0, Z80.0) Status:Active Unknown Family Member Name Dates Details Family history of diabetes m ellitus: Grandparent, Mother(V18.0, Z83.3) Status:Active Family history of hypertensi on: Mother, Brother(V17.49, Z82.49) Status:Active Family history of heart fail ure: Mother, Father, Sister, Brother(V17.49, Z82.49) Status:Active Family history of throat can cer: Uncle(V16.0, Z80.0) Status:Active Unknown Family Member Name Dates Details Family history of diabetes m ellitus: Grandparent, Mother(V18.0, Z83.3) Status:Active Family history of hypertensi on: Mother, Brother(V17.49, Z82.49) Status:Active Family history of heart fail ure: Mother, Father, Sister, Brother(V17.49, Z82.49) Status:Active Family history of throat can cer: Uncle(V16.0, Z80.0) Status:Active Unknown Family Member Name Dates Details Family history of diabetes m ellitus: Grandparent, Mother(V18.0, Z83.3) Status:Active Family history of hypertensi on: Mother, Brother(V17.49, Z82.49) Status:Active Family history of heart fail ure: Mother, Father, Sister, Brother(V17.49, Z82.49) Status:Active Family history of throat can cer: Uncle(V16.0, Z80.0) Status:Active Unknown Family Member Name Dates Details Family history of diabetes m ellitus: Grandparent, Mother(V18.0, Z83.3) Status:Active Family history of hypertensi on: Mother, Brother(V17.49, Z82.49) Status:Active Family history of heart fail ure: Mother, Father, Sister, Brother(V17.49, Z82.49) Status:Active Family history of throat can cer: Uncle(V16.0, Z80.0) Status:Active Unknown Family Member Name Dates Details Family history of diabetes m ellitus: Grandparent, Mother(V18.0, Z83.3) Status:Active Family history of hypertensi on: Mother, Brother(V17.49, Z82.49) Status:Active Family history of heart fail ure: Mother, Father, Sister, Brother(V17.49, Z82.49) Status:Active Family history of throat can cer: Uncle(V16.0, Z80.0) Status:Active Unknown Family Member Name Dates Details Family history of throat can cer: Uncle(V16.0, Z80.0) Status:Active Family history of heart fail ure: Mother, Father, Sister, Brother(V17.49, Z82.49) Status:Active Family history of hypertensi on: Mother, Brother(V17.49, Z82.49) Status:Active Family history of diabetes m ellitus: Grandparent, Mother(V18.0, Z83.3) Status:Active Unknown Family Member Name Dates Details Family history of diabetes m ellitus: Grandparent, Mother(V18.0, Z83.3) Status:Active Family history of hypertensi on: Mother, Brother(V17.49, Z82.49) Status:Active Family history of heart fail ure: Mother, Father, Sister, Brother(V17.49, Z82.49) Status:Active Family history of throat can cer: Uncle(V16.0, Z80.0) Status:Active Unknown Family Member Name Dates Details Family history of diabetes m ellitus: Grandparent, Mother(V18.0, Z83.3) Status:Active Family history of hypertensi on: Mother, Brother(V17.49, Z82.49) Status:Active Family history of heart fail ure: Mother, Father, Sister, Brother(V17.49, Z82.49) Status:Active Family history of throat can cer: Uncle(V16.0, Z80.0) Status:Active Unknown Family Member Name Dates Details Family history of diabetes m ellitus: Grandparent, Mother(V18.0, Z83.3) Status:Active Family history of hypertensi on: Mother, Brother(V17.49, Z82.49) Status:Active Family history of heart fail ure: Mother, Father, Sister, Brother(V17.49, Z82.49) Status:Active Family history of throat can cer: Uncle(V16.0, Z80.0) Status:Active Unknown Family Member Name Dates Details Family history of diabetes m ellitus: Grandparent, Mother(V18.0, Z83.3) Status:Active Family history of hypertensi on: Mother, Brother(V17.49, Z82.49) Status:Active Family history of heart fail ure: Mother, Father, Sister, Brother(V17.49, Z82.49) Status:Active Family history of throat can cer: Uncle(V16.0, Z80.0) Status:Active Unknown Family Member Name Dates Details Family history of diabetes m ellitus: Grandparent, Mother(V18.0, Z83.3) Status:Active Family history of hypertensi on: Mother, Brother(V17.49, Z82.49) Status:Active Family history of heart fail ure: Mother, Father, Sister, Brother(V17.49, Z82.49) Status:Active Family history of throat can cer: Uncle(V16.0, Z80.0) Status:Active Unknown Family Member Name Dates Details Family history of diabetes m ellitus: Grandparent, Mother(V18.0, Z83.3) Status:Active Family history of hypertensi on: Mother, Brother(V17.49, Z82.49) Status:Active Family history of heart fail ure: Mother, Father, Sister, Brother(V17.49, Z82.49) Status:Active Family history of throat can cer: Uncle(V16.0, Z80.0) Status:Active Unknown Family Member Name Dates Details Family history of diabetes m ellitus: Grandparent, Mother(V18.0, Z83.3) Status:Active Family history of hypertensi on: Mother, Brother(V17.49, Z82.49) Status:Active Family history of heart fail ure: Mother, Father, Sister, Brother(V17.49, Z82.49) Status:Active Family history of throat can cer: Uncle(V16.0, Z80.0) Status:Active Unknown Family Member Name Dates Details Family history of diabetes m ellitus: Grandparent, Mother(V18.0, Z83.3) Status:Active Family history of hypertensi on: Mother, Brother(V17.49, Z82.49) Status:Active Family history of heart fail ure: Mother, Father, Sister, Brother(V17.49, Z82.49) Status:Active Family history of throat can cer: Uncle(V16.0, Z80.0) Status:Active Unknown Family Member Name Dates Details Family history of diabetes m ellitus: Grandparent, Mother(V18.0, Z83.3) Status:Active Family history of hypertensi on: Mother, Brother(V17.49, Z82.49) Status:Active Family history of heart fail ure: Mother, Father, Sister, Brother(V17.49, Z82.49) Status:Active Family history of throat can cer: Uncle(V16.0, Z80.0) Status:Active Unknown Family Member Name Dates Details Family history of diabetes m ellitus: Grandparent, Mother(V18.0, Z83.3) Status:Active Family history of hypertensi on: Mother, Brother(V17.49, Z82.49) Status:Active Family history of heart fail ure: Mother, Father, Sister, Brother(V17.49, Z82.49) Status:Active Family history of throat can cer: Uncle(V16.0, Z80.0) Status:Active Unknown Family Member Name Dates Details Family history of diabetes m ellitus: Grandparent, Mother(V18.0, Z83.3) Status:Active Family history of hypertensi on: Mother, Brother(V17.49, Z82.49) Status:Active Family history of heart fail ure: Mother, Father, Sister, Brother(V17.49, Z82.49) Status:Active Family history of throat can cer: Uncle(V16.0, Z80.0) Status:Active Unknown Family Member Name Dates Details Family history of diabetes m ellitus: Grandparent, Mother(V18.0, Z83.3) Status:Active Family history of hypertensi on: Mother, Brother(V17.49, Z82.49) Status:Active Family history of heart fail ure: Mother, Father, Sister, Brother(V17.49, Z82.49) Status:Active Family history of throat can cer: Uncle(V16.0, Z80.0) Status:Active Unknown Family Member Name Dates Details Family history of throat can cer: Uncle(V16.0, Z80.0) Status:Active Family history of heart fail ure: Mother, Father, Sister, Brother(V17.49, Z82.49) Status:Active Family history of hypertensi on: Mother, Brother(V17.49, Z82.49) Status:Active Family history of diabetes m ellitus: Grandparent, Mother(V18.0, Z83.3) Status:Active Unknown Family Member Name Dates Details Family history of diabetes m ellitus: Grandparent, Mother(V18.0, Z83.3) Status:Active Family history of hypertensi on: Mother, Brother(V17.49, Z82.49) Status:Active Family history of heart fail ure: Mother, Father, Sister, Brother(V17.49, Z82.49) Status:Active Family history of throat can cer: Uncle(V16.0, Z80.0) Status:Active Unknown Family Member Name Dates Details Family history of diabetes m ellitus: Grandparent, Mother(V18.0, Z83.3) Status:Active Family history of hypertensi on: Mother, Brother(V17.49, Z82.49) Status:Active Family history of heart fail ure: Mother, Father, Sister, Brother(V17.49, Z82.49) Status:Active Family history of throat can cer: Uncle(V16.0, Z80.0) Status:Active Unknown Family Member Name Dates Details Family history of diabetes m ellitus: Grandparent, Mother(V18.0, Z83.3) Status:Active Family history of hypertensi on: Mother, Brother(V17.49, Z82.49) Status:Active Family history of heart fail ure: Mother, Father, Sister, Brother(V17.49, Z82.49) Status:Active Family history of throat can cer: Uncle(V16.0, Z80.0) Status:Active Unknown Family Member Name Dates Details Family history of diabetes m ellitus: Grandparent, Mother(V18.0, Z83.3) Status:Active Family history of hypertensi on: Mother, Brother(V17.49, Z82.49) Status:Active Family history of heart fail ure: Mother, Father, Sister, Brother(V17.49, Z82.49) Status:Active Family history of throat can cer: Uncle(V16.0, Z80.0) Status:Active Unknown Family Member Name Dates Details Family history of diabetes m ellitus: Grandparent, Mother(V18.0, Z83.3) Status:Active Family history of hypertensi on: Mother, Brother(V17.49, Z82.49) Status:Active Family history of heart fail ure: Mother, Father, Sister, Brother(V17.49, Z82.49) Status:Active Family history of throat can cer: Uncle(V16.0, Z80.0) Status:Active Advance Directives No Advanced Directives Records FoundDocuments on File Type Date Recorded Patient Swatch Folder Expl anation Advance Directives and Living Will Documents on File Type Date Recorded Patient Swatch Folder Expl anation Healthcare Power of Atty 08/19/2021 Documents on File Type Date Recorded Patient Swatch Folder Expl anation Healthcare Power of Atty 08/19/2021 Latest Code Status on File Code Status Date Activated Date Inactivated Comments Full Code 01/05/2023 12:54 PM 01/05/2023 3:56 PM Documents on File Type Date Recorded Patient Swatch Folder Expl anation Healthcare Power of Atty 08/19/2021 Power of Industrial Engineering Professor 08/14/2021 Date Activated Date Inactivated Comments 01/05/2023 12:54 PM 01/05/2023 3:56 PM Date Activated Date Inactivated Comments 01/05/2023 12:54 PM 01/05/2023 3:56 PM Procedure Findings Note [facility] [address] [place], [place] [address]AYTLNARENDRA MARTIN [facility] [id number] 1951ATEOPERATIVE REPORT / PROCEDURE NOTESKAYLEE MONCADA MD, FACSAVITA [facility] PROCEDUREDATE OF JKCQLSPUNLLAHW39/23/2018PROCEDUREHigh-resolution esophageal manometry with impedance.INDICATIONEvaluate for reflux disease.PROCEDURE NOTEHigh-resolution esophageal manometry was performed using the ManoScan unitutilizing the standard protocol. The contour plots, pressure profile, andline tracings were all reviewed. Ten 5 mL wet swallows are available foranalysis. The UES relaxes on wet swallows. The upper and lower LES bordersare identified at 34.5 and 35.5 cm from the nares respectively. The LESlength is 0.9 cm. The mean resting LES pressure is -2.9 mmHg. The pressureinversion point is measured at 38.0 cm from the nares. The intraabdominal LESlength is 0.0 cm. EGJ type 3 morphology is identified. The mean residualpressure as measured by IRP is -6 (more content not included)... Note [facility] [address], [place] [address]GXWYNARENDRA MARTIN [facility] [id number] 2DATE 03/13/2018OPERATIVE REPORT / PROCEDURE NOTESKAYLEE MONCADA MD, FACSASSISTANT ARMANI THAYERREOPERATIVE DIAGNOSES1. Hill grade IV, type 3 paraesophageal hiatal hernia.2. Gastroesophageal reflux disease.POSTOPERATIVE DIAGNOSES1. Hill grade IV, type 3 paraesophageal hiatal hernia.2. Gastroesophageal reflux disease.PROCEDURELaparoscopic hiatal hernia repair with mesh and Rosalva fundoplication.ANESTHESIAGeneral.SPECIMENPeriaortic lymph node.ESTIMATED BLOOD LOSS5 mL.FLUIDSCrystalloid.COMPLICATIONSNone.DRAINSNone.DISPOSITIONPACU.INDICATIONThis is a 67-year-old female, who underwent a full heartburn treatment clinicevaluation. She was found to have a large type 3 paraesophageal hiatal herniaand reflux disease. She has lost a significant amount of weight and nowpresents for surgical treatment of her disease. The risks, benefits, andalternatives were (more content not included)... Reason for Referral Status Reason Specialty Diagnoses / Procedures Referred By Contact Referred To Contact New Request Chemotherapy Diagnoses Age-related osteoporosis without current pathological fracture Mary Carmen Tovar MD [address] [place] [address] [facility] [address] [place] [address] Specialty Diagnoses / Procedures Referred By Contac t Referred To Contact Radiology Diagnoses Esophageal dysphagia Status post laparoscopic Rosalva fundoplication Procedures XR Esophagram Swallow Study Delvis Moncada MD [address] [address] Referral ID Status Reason Start Date Expiration Date V isits Requested Visits Authorized [id number] Authorized 11/26/2021 11/26/2022 1 1 Specialty Diagnoses / Procedures Referred By Contac t Referred To Contact Radiology Diagnoses Dislocated toe, left, initial encounter Hammer toe of second toe of left foot Procedures CT Foot Left Without Contrast CT Foot Left Without Contrast Roderick Jeter, AMARJITM [address] [place] [address] Referral ID Status Reason Start Date Expiration Date V isits Requested Visits Authorized [id number] New Request 12/27/2022 12/27/2023 1 1 Specialty Diagnoses / Procedures Referred By Contac t Referred To Contact Radiology Diagnoses Dislocated toe, left, initial encounter Hammer toe of second toe of left foot Procedures CT Foot Left Without Contrast CT Foot Left Without Contrast Roderick Jeter, RYAN [address] [place] [address] [address] [place] [address] Specialty Diagnoses / Procedures Referred By Contac t Referred To Contact Radiology Diagnoses Encounter for screening mammogram for breast cancer Procedures BI mammo bilateral screening tomosynthesis Jasmine Mathias MD [address] [facility] [place] [address] Referral ID Status Reason Start Date Expiration Date Visits Requested Visits Authorized [id number] Authorized Perform Procedure 05/13/2023 05/12/2024 1 1 Specialty Diagnoses / Procedures Referred By Contac t Referred To Contact Radiology Diagnoses Neurogenic claudication due to lumbar spinal stenosis Lumbosacral radiculopathy Procedures MR lumbar spine wo IV contrast Mauricio Mancilla PA-C [address] [place] [address] Referral ID Status Reason Start Date Expiration Date Visits Requested Visits Authorized [id number] Pending Review Perform Procedure 07/26/2023 07/25/2024 1 1 Specialty Diagnoses / Procedures Referred By Contac t Referred To Contact Radiology Diagnoses Neurogenic claudication due to lumbar spinal stenosis Lumbosacral radiculopathy Procedures XR lumbar spine 2-3 views Mauricio Mancilla PA-C [address] [place] [address] Referral ID Status Reason Start Date Expiration Date Visits Requested Visits Authorized [id number] Authorized Perform Procedure 07/26/2023 07/25/2024 1 1 Specialty Diagnoses / Procedures Referred By Contac t Referred To Contact [facility] [address] [place] [phone] Referral ID Status Reason Start Date Expiration Date V isits Requested Visits Authorized [id number] Pending Review 08/26/2023 08/25/2024 1 1 Specialty Diagnoses / Procedures Referred By Contac t Referred To Contact Pain Medicine / Procedural Diagnoses Lumbosacral radiculopathy Neurogenic claudication due to lumbar spinal stenosis Procedures Transforaminal Mauricio Mancilla PA-C [address] [place] [address] [phone] Referral ID Status Reason Start Date Expiration Date Visits Requested Visits Authorized [id number] Authorized Perform Procedure 08/09/2023 08/08/2024 1 1 Specialty Diagnoses / Procedures Referred By Contac t Referred To Contact Radiology Diagnoses Right hip pain Procedures XR pelvis 3+ views Jasmine Mathias MD [address] [place] [address] Referral ID Status Reason Start Date Expiration Date Visits Requested Visits Authorized [id number] Authorized Perform Procedure 12/27/2023 12/26/2024 1 1 Specialty Diagnoses / Procedures Referred By Contac t Referred To Contact Radiology Diagnoses Right hip pain Procedures XR hip right with pelvis when performed 2 or 3 views Jasmine Mathias MD [address] [address] Referral ID Status Reason Start Date Expiration Date Visits Requested Visits Authorized [id number] Authorized Perform Procedure 12/27/2023 12/26/2024 1 1 Specialty Diagnoses / Procedures Referred By Contac t Referred To Contact Radiology Diagnoses Neurogenic claudication due to lumbar spinal stenosis Lumbosacral radiculopathy Procedures CT lumbar spine wo IV contrast Bryan Luz MD [address] [facility], [place] [address] Referral ID Status Reason Start Date Expiration Date Visits Requested Visits Authorized [id number] Authorized Perform Procedure 12/12/2023 12/11/2024 1 1 Specialty Diagnoses / Procedures Referred By Contac t Referred To Contact Diagnoses Degenerative disc disease, lumbar Other chronic pain Mauricio Mancilla PA-C [address] [place] [phone] Referral ID Status Reason Start Date Expiration Date V isits Requested Visits Authorized [id number] Pending Review 1 1 Specialty Diagnoses / Procedures Referred By Contac t Referred To Contact Neurosurgery Diagnoses Neurogenic claudication due to lumbar spinal stenosis Lumbosacral radiculopathy Spondylosis of lumbosacral region, unspecified spinal osteoarthritis complication status S/P spinal fusion Mauricio Mancilla PA-C [address] [place] [address] Referral ID Status Reason Start Date Expiration Date Visits Requested Visits Authorized [id number] Authorized Specialty Services Required 09/22/2023 09/21/2024 1 1 Specialty Diagnoses / Procedures Referred By Contac t Referred To Contact Radiology Diagnoses Neurogenic claudication due to lumbar spinal stenosis Lumbosacral radiculopathy Procedures XR EOS full spine 2 view scolosis Bryan Luz MD [address] [facility], [address] [address] Referral ID Status Reason Start Date Expiration Date Visits Requested Visits Authorized [id number] Authorized Perform Procedure 12/12/2023 12/11/2024 1 1 Specialty Diagnoses / Procedures Referred By Contac t Referred To Contact Radiology Diagnoses Senile osteoporosis Procedures XR DEXA bone density axial skeleton w VFA Bryan Luz MD [address] [facility], [address] [address] Referral ID Status Reason Start Date Expiration Date Visits Requested Visits Authorized [id number] Authorized Perform Procedure 12/12/2023 12/11/2024 1 1 Specialty Diagnoses / Procedures Referred By Contac t Referred To Contact Internal Medicine Diagnoses Neurogenic claudication due to lumbar spinal stenosis Lumbosacral radiculopathy Bryan Luz MD [address] [facility], [address] [address] Referral ID Status Reason Start Date Expiration Date Visits Requested Visits Authorized [id number] Authorized Specialty Services Required 12/12/2023 12/11/2024 1 1 Specialty Diagnoses / Procedures Referred By Contac t Referred To Contact Physical Therapy Diagnoses Neurogenic claudication due to lumbar spinal stenosis Lumbosacral radiculopathy Bryan Luz MD [address] [facility], [address] [address] Referral ID Status Reason Start Date Expiration Date Visits Requested Visits Authorized [id number] Pending Review Specialty Services Required 12/12/2023 12/11/2024 1 1 Referral ID Status Reason Start Date Expiration Date Visits Requested Visits Authorized [id number] Pending Review Specialty Services Required 12/12/2023 12/11/2024 1 1 Chief Complaint * F/U CAUDAL HERMELINDA 80% RELIEF, SHE HAS HAD NO SCIATIC PAIN SINCE INJECTION, SHE GETS A LITTLE ACHEY IN THE MORNING,SHE IS ABLE TO WALK HER MILES DAILY AND IS NOT HAVING DISCOMFORT, SCORE 1/10 * This is a 69-year-old female here for a follow-up appointment for chief complaint of low back and leg pain. At her last visit she underwent a caudal epidural steroid injection. She reports over 80% relief. She is back to functioning at a normal level. She denies new neurologic symptoms or issues with bladder or bowel control. * The patient's past medical, social, and family history along with medications and allergies are available and were reviewed. 6 month check with labs. Has had a couple stumbles, hurt foot recently6 month check up6 mo f/u, lab review, increased vomiting, food gets stuck after eating, renew handicap placard* R KNEE * STIFF * GIVES OUT * STARTED 1 1/2 YR AGO * PAIN OCCASIONAL * R KNEE * STIFF * GIVES OUT * STARTED 1 1/2 YR AGO * PAIN OCCASIONAL Euflexxa injection series #1 for the right knee.Euflexxa injection series #3 right knee.Euflexxa injection series #3 right knee.3 mo f/u, results review, wants to restart water pill, BLEMCW, 6 mo f/u, lab review* Patient is here today for new pain in her neck. Patient complains of bilateral neck pain with pain radiating into her bilateral shoulders. Patient denied radiation down her arms. Patient states rightshoulder pain is worse than the left. Patient rates her pain a 7/10 today. Patient states her neck creeks and cracks when she tries to turn her head. She also states her neck pain causes frequent he adaches. Patient states this pain started 4 months ago. She denied injury prior to pain starting. Patient states she had a recent cervical XR. She states her PCP mentioned PT but she states she wanted to come here first. Patient able to sit as long as she would like to. Patient able to stand 30 minutes. Patient able to walk 1 mile. * Patient denied smoking. Depression screen completed, negative. BMI NA due to patient age. ORT score1. FABIANO score 36. Chief Complaint and Reason for Visit Chief Complaint Admit Date CERVICAL SPINE August 10, 2024 9:25a m Xray room 8 August 10, 2024 9:52a m Chief Complaint Admit Date CERVICAL SPINE August 10, 2024 9:25a m Xray room 8 August 10, 2024 9:52a m cervical spine September 07, 2024 9:10 am Reason for Visit Admit Date Cervical myelopathy with cervical radicu lopathy August 10, 2024 9:25am Degenerative disc disease, cervical August 10, 2024 9:25am History of fusion of cervical spine August 10, 2024 9:25am Spondylolisthesis of cervical region August 10, 2024 9:25am Additional Source Comments Reason for Visit (unrecogniz ed section and content) Reason Comments Pain Specialty Diagnoses / Procedures Referred By Contac t Referred To Contact Orthopaedic Surgery / Orthopedic Surgery Diagnoses Acute pain of right shoulder Jasmine Mathias MD [address] [facility] [address] [place] [address] Phone: tel: fax: Soraya Hernandez MD [address] [facility] [address] [place] [address] Phone: tel: fax: Referral ID Status Reason Start Date Expiration Date Visits Requested Visits Authorized [id number] Authorized Specialty Services Required 06/28/2024 06/28/2025 1 1 Reason Comments Follow-up Reason Comments Follow-up Hiatal hernia with G ERD Reason Comments Other Infusion Reason Comments Infusion Visit Status Reason Specialty Diagnoses / Procedures Referred By Contact Referred To Contact Pending Review Chemotherapy Diagnoses Age-related osteoporosis without current pathological fracture Mary Carmen Tovar MD [address] [phone] [facility] [address] [place] [address] Reason Comments Pain Reason Comments Follow-up Osteoporosis Labs Reason Comments Foot Injury Lateral left foot pa in and swelling after stumbling. Reason Comments Follow-up Left foot contusion. Reason Comments Dysphagia Reason Comments Follow-up Osteoporosis Reason Comments Follow-up CT scan Reason Comments Follow-up Redo conversion to w atson Reason Comments Post-op REDO HIATAL HERNIA R EPAIR WITH MESH AND REVISION OF ROSALVA FUNDOPLICATION to Spence ROBOTIC Reason Comments Sinus Problem Reason Comments Fall Left foot injury. Tr ipped and landed wrong on left foot. Pain in left toes. Did not hit head. NO LOC Reason Comments Foot Injury Left foot injury yes terday, pt went to hospital but they could not tell if she had any fx. New xrasy today. Pt states pain is mostly at the ball of great toenail and has bruising around the 3rd toe. Reason Comments Pre-op Exam H & P Reason Comments Post-op PO arthrodesis left 1st MPJ and ORIF 2nd toe Reason Comments Post-op L foot 1st MPJ fusio n - repeat xrays and suture removal today Reason Comments Neck Pain FUV MRI. Today repor ts having pain in her bilat neck R>L, she is getting migraines /BREWER lately not sure if it is related rates 5-6/10, describes as acing, tightness, and sore now and with increasing pain it will be sharp. She is taking ES Tylenol and stretching for the pain this helps a little with the pain but does not relieve it. She reports the pain affects her ADLs including personal care, lifting, sitting, sleeping, traveling, standing for 1 hour and walking 0.5 mile all causes increased pain. Reason Comments Post-op L 1st MPJ fusion- pi n removal today - xrays today - pt is doing well Reason Comments Post-op Post op left foot bu nionectomy. X-rays taken today. Reason Comments Post-op L foot bunionectomy -repeat xrays - pt doing well Reason Comments Neck Pain Patient following up from C7-T1 HERMELINDA that she had on 03/04/23. Patient states she got 35% relief from the injection. Patient states she hasn't noticed much of a difference with her neck pain. She rates her neck pain a 5/10 now and a 8-10/10 at it's worst. Patient states it still creeks and cracks. Patient states she has a stiffness in her neck. She does state the arm pain and numbness has went away. Patient states she still gets intermittent headaches but hasn't had as many lately. Reason Comments Follow-up Patient presents for follow up orthotics, follow up great, second toe left foot. Patient dissatisfied with orthotics, stating that they hurt her arches. Insurance is not willing to pay for first set of orthotics, patient opted for cheaper option. Specialty Diagnoses / Procedures Referred By Maxwell t Referred To Contact Radiology Diagnoses Encounter for screening mammogram for breast cancer Procedures BI mammo bilateral screening tomosynthesis Jasmine Mathias MD [address] [facility] [place] [address] Referral ID Status Reason Start Date Expiration Date Visits Requested Visits Authorized [id number] Authorized Perform Procedure 05/13/2023 05/12/2024 1 1 Reason Comments Back Pain FUV today reports brewer ving pain in her bilat lower back that goes in to her hips, pelvis and down bilat legs to her knees rates pain 7-8/10 now, describes as constant ache and is having trouble lifting her legs to walk as they feel heavy she has to sit and rest and eases the pain but does not go away. She takes tylenol and tramadol for pain these help so she can function, but by the end of the day her pain is so bad she cannot do anything else. Neck Pain Neck pain rates a 4- 5/10 describes as crunching when she moves it around. It is not as bad as her lower back. Specialty Diagnoses / Procedures Referred By Maxwell melendez Referred To Contact Radiology Diagnoses Neurogenic claudication due to lumbar spinal stenosis Lumbosacral radiculopathy Procedures XR lumbar spine 2-3 views Mauricio Mancilla PA-C [address] [place] [address] Referral ID Status Reason Start Date Expiration Date Visits Requested Visits Authorized [id number] Authorized Perform Procedure 07/26/2023 07/25/2024 1 1 Specialty Diagnoses / Procedures Referred By Maxwell melendez Referred To Contact Radiology Diagnoses Neurogenic claudication due to lumbar spinal stenosis Lumbosacral radiculopathy Procedures MR lumbar spine wo IV contrast Mauricio Mancilla PA-C [address] [place] [address] Referral ID Status Reason Start Date Expiration Date Visits Requested Visits Authorized [id number] Pending Review Perform Procedure 07/26/2023 07/25/2024 1 1 Reason Comments Back Pain FUV MRI results. Tod ay she is having pain in her bilat lower back that goes into her bilat legs in the side and front down to her feet rates her pain score 9-10/10, and describes as a muscle cramp/ache at rest and pain gets sharp and very hard to flower buncher or picker her legs due to the pain. She has been using a cane when the pain is bad the pain use to come and go but it is more frequent now. Specialty Diagnoses / Procedures Referred By Maxwell melendez Referred To Contact Radiology Diagnoses Right hip pain Procedures XR hip right with pelvis when performed 2 or 3 views Jasmine Mathias MD [address] [place] [address] Referral ID Status Reason Start Date Expiration Date Visits Requested Visits Authorized [id number] Authorized Perform Procedure 12/27/2023 12/26/2024 1 1 Specialty Diagnoses / Procedures Referred By Maxwell melendez Referred To Contact Radiology Diagnoses Neurogenic claudication due to lumbar spinal stenosis Lumbosacral radiculopathy Procedures CT lumbar spine wo IV contrast Bryan Luz MD [address] [facility], [address] [place] [address] Referral ID Status Reason Start Date Expiration Date Visits Requested Visits Authorized [id number] Authorized Perform Procedure 12/12/2023 12/11/2024 1 1 Reason Comments URI Sinus pressure, runn y nose, cough, congestion x 2 days Reason Comments Back Pain Patient complains of lower back pain and pain down into her legs to her knees. Patient states she is having right leg pain in the back of her thigh. She is having a CT scan for this. Patient is scheduled for bone density scan on 02/13/24. Patient states she is currently in water PT ordered by the surgeon. Patient states she is following up with Dr. Luz in March. She will decide a treatment plan based on her XR results and bone density scan. She would also like patient to lose weight. Reason Comments Follow-up FOLLOW UP BILATERAL L2-3 TFESI, SHE FEELS SHE GOT RELIEF OF BACK PAIN FOR 3 DAYS AFTER THE INJECTION, SHE STATES AFTER THE INJECTION HER FACE GETS REALLY RED AND HOT THE NEXT DAY, WHEN SHE WAKES IN THE MORNING SHE HAS MUSCLE PAINS IN HER LEGS VERY PAINFUL TO WALK, Reason Comments Follow-up Hospital follow up 1 05/05/2023 Reason Comments Back Pain Patient is here to f shaunlow up after seeing a spine surgeon. Patient states the surgeon is unsure he should do surgery. She states the surgeon said she needs a new bone density scan. Patient states her pain is in her lower back. It is across her back. She states it radiates down her right leg to her knee. She states she does have numbness/tingling in her leg. She states the injections are too painful. She feels she didn't tolerate the last injection very well. Reason Comments Back Pain Radiate pain to both legs. Specialty Diagnoses / Procedures Referred By Maxwell melendez Referred To Contact Neurosurgery Diagnoses Neurogenic claudication due to lumbar spinal stenosis Lumbosacral radiculopathy Degenerative disc disease, lumbar H/O arthrodesis Mauricio Mancilla, BERRY [address] [place] [address] Bryan Luz MD [address] [facility], [facility] [address] [place] [address] Referral ID Status Reason Start Date Expiration Date Visits Requested Visits Authorized [id number] Authorized Specialty Services Required 11/17/2023 11/16/2024 1 1 Reason Comments Med Management FOLLOW UP ON NAOMI, SHE TAKES FOR ONGOING FOR CHRONIC PAIN, SHE HAS PAIN THAT GOES DOWN FROM HER LOWER BACK DOWN TO HER FEET AT TIMES IN BOTH LEGS, THE FEELING IS A SHOOTING PAIN, THE TOPS OF HER THIGHS BURN IN THE MORNINGS WHEN SHE TRANSITIONS TO STANDING, SHE WILL AMBULATE WITH A CANE, Reason Comments URI Cough and chest sonya estion, sob, wheezing X 4 days Reason Comments Medicare Annual Wellness Visit Aamir melendez MCW/6 mo ck Specialty Diagnoses / Procedures Referred By Maxwell melendez Referred To Contact Primary Care Diagnoses Anxiety Chronic pain syndrome Primary hypertension Hypercholesteremia Osteoporosis, unspecified osteoporosis type, unspecified pathological fracture presence Primary generalized (osteo)arthritis Rheumatoid arthritis involving multiple sites, unspecified whether rheumatoid factor present (Multi) Gastroesophageal reflux disease without esophagitis Vitamin D deficiency Edema, unspecified type Class 2 severe obesity with serious comorbidity and body mass index (BMI) of 35.0 to 35.9 in adult, unspecified obesity type Procedures Follow Up In Primary Care - Medicare Annual Jasmine Mathias MD Phone: tel: fax: Referral ID Status Reason Start Date Expiration Date V isits Requested Visits Authorized [id number] Authorized 11/10/2023 11/09/2024 1 1 Reason Comments Illness Wheezing, went to [facility] 05/07 Reason Comments Follow-up FUV- Right L2/3-L3/4 TFESI done on 06/06/24. Patient stated that she did not get any relief. Patient states that she is still in pain when she gets up in the morning. Patient is taking alternating tylenol and tramadol. Patient states that she is still using a cane in the morning to walk from bedroom to the bathroom. She stated that after sitting for a little bit of time she feels better. Patient states that the pain subsides in her thighs. Patient describes the pain as burning. Reason Comments Shoulder Pain Right side since t week Reason Comments Follow-up FUV-Patient in Pain clinic today for chief complaint of right neck that radiates up the side of her face and down past her right elbow. Rates pain 10/10 and describes it as stabbing and a tingling pain Specialty Diagnoses / Procedures Referred By Maxwell melendez Referred To Contact Pain Medicine Diagnoses Neurogenic claudication due to lumbar spinal stenosis Lumbosacral radiculopathy Postlaminectomy syndrome of lumbar region Celeste Moran, MANAGER ORGANIZATIONAL-PAPER REELER [address] [place] [address] Phone: tel: fax: Smith Estrada, DO [address] [place] [address] Phone: tel: fax: Referral ID Status Reason Start Date Expiration Date Visits Requested Visits Authorized [id number] Authorized Specialty Services Required 06/25/2024 06/25/2025 1 1 Reason Comments Foot Injury R ft injury 08/22, opped soda can on Great toe, bruising, swelling, pain; Reason Comments Pre-op Exam Reason Comments Diarrhea Diarrhea, nausea and vomiting since Tuesday. Submit stool sample through PCP today, pending result Reason Comments Follow-up 4 wk f/u R Gr toe in jury. States it is doing a little better. Swelling has come down some. Still can not bend foot.Patient is having surgery on her neck Tuesday. INFORMATION SOURCE (unrecogn ized section and content) DATE CREATED AUTHOR 03/20/2018 [facility] DATE CREATED AUTHOR AUTHOR'S ORGANIZ ATION 12/30/2018 [facility] DATE CREATED AUTHOR AUTHOR'S ORGANIZ ATION 12/04/2022 [facility] DATE CREATED AUTHOR AUTHOR'S ORGANIZ ATION 12/18/2022 [facility] DATE CREATED AUTHOR AUTHOR'S ORGANIZ ATION 12/28/2022 [facility] DATE CREATED AUTHOR AUTHOR'S ORGANIZ ATION [facility]20[facility] DATE CREATED AUTHOR AUTHOR'S ORGANIZ ATION 01/03/2023 [facility] DATE CREATED AUTHOR AUTHOR'S ORGANIZ ATION 02/18/2024 [facility] DATE CREATED AUTHOR AUTHOR'S ORGANIZ ATION 02/20/2024 [facility] DATE CREATED AUTHOR AUTHOR'S ORGANIZ ATION 05/12/2024 [facility] DATE CREATED AUTHOR AUTHOR'S ORGANIZ ATION 07/11/2024 [facility] DATE CREATED AUTHOR AUTHOR'S ORGANIZ ATION 07/30/2024 [facility] DATE CREATED AUTHOR AUTHOR'S ORGANIZ ATION 09/12/2024 [facility] DATE CREATED AUTHOR AUTHOR'S ORGANIZ ATION 09/17/2024 [facility] DATE CREATED AUTHOR AUTHOR'S ORGANIZ ATION 09/17/2024 [facility] DATE CREATED AUTHOR AUTHOR'S ORGANIZ ATION 09/17/2024 [facility] DATE CREATED AUTHOR AUTHOR'S ORGANIZ ATION 09/17/2024 [facility] <item><item><item><item> Privacy Markings (unrecogniz ed section and content) Section Author: Chikis Mark PROHIBITION ON REDISCLOSURE OF CONFIDENTIAL INFORMATION This notice accompanies a disclosure of information concerning a client made to you with the consent of such client. Section Author: Chikis Mark PROHIBITION ON REDISCLOSURE OF CONFIDENTIAL INFORMATION This notice accompanies a disclosure of information concerning a client made to you with the consent of such client. Section Author: Chikis Mark PROHIBITION ON REDISCLOSURE OF CONFIDENTIAL INFORMATION This notice accompanies a disclosure of information concerning a client made to you with the consent of such client. Section Author: Chikis Mark PROHIBITION ON REDISCLOSURE OF CONFIDENTIAL INFORMATION This notice accompanies a disclosure of information concerning a client made to you with the consent of such client. Care Teams (unrecognized sec tion and content) Front End Java Developer Relationship Specialty Start Date End Date Jasmine Mathias MD [address] [place] [address] PCP - General Family Medicine 06/27/15 Jasmine Mathias MD [address] [place] [phone] Referring Physician Family Medicine 07/08/17 Jasmine Loa MD [address] [place] [address] REBECCA Attributed Provider - Internal Medicine Internal Medicine 04/18/14 Caryn Conway MD [address] [address] [place] [address] REBECCA Attributed Provider - Family Medicine Family Medicine 05/26/15 Front End Java Developer Relationship Specialty Start Date End Date PablokyJasmine saleh MD [address] [place] [phone] PCP - General Family Medicine 06/27/15 Jasmine Mathias MD [address] [place] [phone] Referring Physician Family Medicine 07/08/17 Jasmine Lao MD [address] [place] [id number] REBECCA Attributed Provider - Internal Medicine Internal Medicine 04/18/14 Caryn Conway MD [address] [place] [address] REBECCA Attributed Provider - Family Medicine Family Medicine 05/26/15 Front End Java Developer Relationship Specialty Start Date End Date Jasmine Mathias MD [address] [place] [phone] PCP - General Family Medicine 12/13/17 Front End Java Developer Relationship Specialty Start Date End Date Jasmine Mathias MD [address] [place] [address] PCP - General Family Medicine 06/27/15 [facility] [address] [place] [phone] Referring Physician Family Medicine 07/08/17 Jasmine Lao MD [address] [place] [address] REBECCA Attributed Provider - Internal Medicine Internal Medicine 04/18/14 Caryn Conway MD [address] [facility] [place] [address] REBECCA Attributed Provider - Family Medicine Family Medicine 05/26/15 Front End Java Developer Relationship Specialty Start Date End Date PablokyJasmine saleh MD [address] [place] [phone] PCP - General Family Medicine 06/27/15 [facility] [address] [place] [phone] Referring Physician Family Medicine 07/08/17 Jasmine Lao MD [address] [place] [address] REBECCA Attributed Provider - Internal Medicine Internal Medicine 04/18/14 Caryn Conway MD [address] [facility] [place] [address] REBECCA Attributed Provider - Family Medicine Family Medicine 05/26/15 Front End Java Developer Relationship Specialty Start Date End Date PablokyJasmine saleh MD [address] [place] [address] PCP - General Family Medicine 06/27/15 PablokyJasmine saleh MD [address] [place] [address] Referring Physician Family Medicine 07/08/17 Jasmine Lao MD [address] [place] [address] REBECCA Attributed Provider - Internal Medicine Internal Medicine 04/18/14 Caryn Conway MD [address] [facility] [place] [address] REBECCA Attributed Provider - Family Medicine Family Medicine 05/26/15 Front End Java Developer Relationship Specialty Start Date End Date Jasmine Mathias MD [address] [facility] [place] [address] PCP - General 11/28/18 Jasmine Mathias MD [address] [facility] [place] [address] PCP - MSS[facility] ACO Attributed Provider 03/28/21 Front End Java Developer Relationship Specialty Start Date End Date Jasmine Mathias MD [address] [facility] [place] [address] PCP - General 11/28/18 Jasmine Mathias MD [address] [facility] [place] [address] PCP - MSSP ACO Attributed Provider 03/28/21 Front End Java Developer Relationship Specialty Start Date End Date Jasmine Mathias MD [address] [facility] [place] [address] PCP - General 11/28/18 Jasmine Mathias MD [address] [facility] Medical Office [place], [place] [phone] [facility] - [facility] Attributed Provider 03/28/21 Front End Java Developer Relationship Specialty Start Date End Date Jasmine Mathias MD [address] [place] [place] [phone] PCP - General 11/28/18 Jasmine Mathias MD [address] [place], [place] [phone] PCP - [facility] Attributed Provider 03/28/21 Front End Java Developer Relationship Specialty Start Date End Date Jasmine Mathias MD [address] [place] [phone] PCP - General Family Medicine 06/27/15 Jasmine Mathias MD [address] [place] [address] Referring Physician Family Medicine 07/08/17 Front End Java Developer Relationship Specialty Start Date End Date Jasmine Mathias MD [address] [place] [phone] PCP - General Family Medicine 06/27/15 Jasmine Mathias MD [address] [place] [address] Referring Physician Family Medicine 07/08/17 Front End Java Developer Relationship Specialty Start Date End Date Jasmine Mathias MD [address] [place] [address] PCP - General Family Medicine 06/27/15 Jasmine Mathias MD [address] [place] [phone] Referring Physician Family Medicine 07/08/17 Front End Java Developer Relationship Specialty Start Date End Date Jasmine Mathias MD [address] [place] [phone] PCP - General Family Medicine 06/27/15 Jasmine Mathias MD [address] [place] [address] Referring Physician Family Medicine 07/08/17 Front End Java Developer Relationship Specialty Start Date End Date Jasmine Mathias MD [address] [place] [phone] PCP - General Family Medicine 06/27/15 Jasmine Mathias MD [address] [place] [address] Referring Physician Family Medicine 07/08/17 Front End Java Developer Relationship Specialty Start Date End Date Jasmine Mathias MD [address] [place] [phone] PCP - General Family Medicine 06/27/15 Jasmine Mathias MD [address] [place] [address] Referring Physician Family Medicine 07/08/17 Front End Java Developer Relationship Specialty Start Date End Date Jasmine Mathias MD [address] [place], [place] [phone] PCP - General 11/28/18 Jasmine Mathias MD [address] [place] [id number] PCP - [facility] Attributed Provider 03/28/21 Front End Java Developer Relationship Specialty Start Date End Date Jasmine Mathias MD [facility] [place] [phone] PCP - General Family Medicine 12/13/17 Front End Java Developer Relationship Specialty Start Date End Date Jasmine Mathias MD [address] [place], [place] [phone] PCP - General Family Medicine 06/27/15 Jasmine Mathias MD [facility] [place] [address] Referring Physician Family Medicine 07/08/17 Front End Java Developer Relationship Specialty Start Date End Date Jasmine Mathias MD [address] [place] [phone] PCP - General Family Medicine 06/27/15 Jasmine Mathias MD [address] [place] [address] Referring Physician Family Medicine 07/08/17 Front End Java Developer Relationship Specialty Start Date End Date Jasmine Mathias MD [address] [facility] [place] [phone] PCP - General 11/28/18 Jasmine Mathias MD [address] [facility] [place] [phone] PCP - MSSP ACO Attributed Provider 03/28/21 Front End Java Developer Relationship Specialty Start Date End Date Jasmine Mathias MD [address] [facility] Office [place] [phone] PCP - General 11/28/18 Jasmine Mathias MD [address] [facility] [place] [address] PCP - MSSP ACO Attributed Provider 03/28/21 Front End Java Developer Relationship Specialty Start Date End Date Jasmine Mathias MD [address] [facility] [place] [address] PCP - General 11/28/18 Jasmine Mathias MD [address] [facility] [place] [address] PCP - MSSP ACO Attributed Provider 03/28/21 Front End Java Developer Relationship Specialty Start Date End Date Jasmine Mathias MD [address] [facility] [place] [phone] PCP - General 11/28/18 Jasmine Mathias MD [address] [facility] [place] [phone] PCP - MSSP ACO Attributed Provider 03/28/21 Front End Java Developer Relationship Specialty Start Date End Date Jasmine Mathias MD [facility] [address] [facility] [place] [phone] PCP - General 11/28/18 Jasmine Mathias MD [address] [facility] [place] [phone] PCP - MSSP ACO Attributed Provider 03/28/21 Front End Java Developer Relationship Specialty Start Date End Date Jasmine Mathias MD [facility] [address] [facility] [place] [address] PCP - General 11/28/18 Jasmine Mathias MD [facility] [address] [facility] [place] [phone] PCP - MSSP ACO Attributed Provider 03/28/21 Front End Java Developer Relationship Specialty Start Date End Date Jasmine Mathias MD [facility] [address] [facility] [place] [phone] PCP - General 11/28/18 Jasmine Mathias MD [facility] [address] [facility] [place] [phone] PCP - MSSP ACO Attributed Provider 03/28/21 Front End Java Developer Relationship Specialty Start Date End Date Jasmine Mathias MD [address] [facility] [place] [address] PCP - General 11/28/18 Jasmine Mathias MD [address] [facility] [place] [phone] PCP - MSSP ACO Attributed Provider 03/28/21 Front End Java Developer Relationship Specialty Start Date End Date Jasmine Mathias MD [address] [facility] Office [place] [phone] PCP - General 11/28/18 Jasmine Mathias MD [address] [facility] [place] [phone] PCP - MSSP ACO Attributed Provider 03/28/21 Front End Java Developer Relationship Specialty Start Date End Date Jasmine Mathias MD [address] [place] [phone] PCP - General 11/28/18 Jasmine Mathias MD [address] [facility] [place] [phone] PCP - MSSP ACO Attributed Provider 03/28/21 Front End Java Developer Relationship Specialty Start Date End Date Jasmine Mathias MD [address] [facility] [place] [address] PCP - General 11/28/18 Jasmine Mathias MD [address] [facility] [place] [address] PCP - MSSP ACO Attributed Provider 03/28/21 Front End Java Developer Relationship Specialty Start Date End Date Jasmine Mathias MD [address] [address] PCP - MSSP ACO Attributed Provider 03/28/21 Jasmine Mathias MD [address] [address] PCP - General Family Medicine 12/27/23 Bryan Luz MD [address] [id number] Surgeon Neurosurgery 12/12/23 Front End Java Developer Relationship Specialty Start Date End Date Jasmine Mathias MD [address] [address] PCP - MSSP ACO Attributed Provider 03/28/21 Jasmine Mathias MD [address] [address] PCP - General Family Medicine 12/27/23 Bryan Luz MD [address] [place] [address] Surgeon Neurosurgery 12/12/23 Front End Java Developer Relationship Specialty Start Date End Date Jasmine Mathias MD [address] [address] PCP - MSSP ACO Attributed Provider 03/28/21 Jasmine Mathias MD [address] [address] PCP - General Family Medicine 12/27/23 Bryan Luz MD [address] [place] [address] Surgeon Neurosurgery 12/12/23 Front End Java Developer Relationship Specialty Start Date End Date Jasmine Mathias MD [address] [address] PCP - MSSP ACO Attributed Provider 03/28/21 Jasmine Mathias MD [address] [id number] PCP - General Family Medicine 12/27/23 Bryan Luz MD [address] [place] [address] Surgeon Neurosurgery 12/12/23 Front End Java Developer Relationship Specialty Start Date End Date Jasmine Mathias MD [address] [address] PCP - MSSP ACO Attributed Provider 03/28/21 Jasmine Mathias MD [address] [address] PCP - General Family Medicine 12/27/23 Bryan Luz MD [address] [address] Surgeon Neurosurgery 12/12/23 Front End Java Developer Relationship Specialty Start Date End Date Jasmine Mathias MD [address] [place] [address] PCP - MSSP ACO Attributed Provider 03/28/21 Jasmine Mathias MD [address] [place] [address] PCP - General Family Medicine 12/27/23 Bryan Luz MD [address] [place] [address] Surgeon Neurosurgery 12/12/23 Front End Java Developer Relationship Specialty Start Date End Date Jasmine Mathias MD [address] [place] [address] PCP - MSSP ACO Attributed Provider 03/28/21 Jasmine Mathias MD [address] [place] [address] PCP - General Family Medicine 12/27/23 Bryan Luz MD [address] [place] [address] Surgeon Neurosurgery 12/12/23 Front End Java Developer Relationship Specialty Start Date End Date Jasmine Mathias MD [address] [place] [address] PCP - MSSP ACO Attributed Provider 03/28/21 Jasmine Mathias MD [address] [place] [address] PCP - General Family Medicine 12/27/23 Bryan Luz MD [address] [address] Surgeon Neurosurgery 12/12/23 Front End Java Developer Relationship Specialty Start Date End Date Jasmine Mathias MD [address] [place] [address] PCP - General Family Medicine 12/13/17 Front End Java Developer Relationship Specialty Start Date End Date Jasmine Mathias MD [address] [address] PCP - MSSP ACO Attributed Provider 03/28/21 Jasmine Mathias MD [address] [address] PCP - General Family Medicine 12/27/23 rByan Luz MD [address] [address] Surgeon Neurosurgery 12/12/23 Della You, medical transcriberSwimming Coach 03/07/24 Front End Java Developer Relationship Specialty Start Date End Date Jasmine Mathias MD [address] [id number] PCP - General 11/28/18 Jasmine Mathias MD [address] [place] [address] PCP - MSSP ACO Attributed Provider 03/28/21 Front End Java Developer Relationship Specialty Start Date End Date Jasmine Mathias MD [address] [address] PCP - MSSP ACO Attributed Provider 03/28/21 Bryan Luz MD [address] [id number] Surgeon Neurosurgery 12/12/23 Front End Java Developer Relationship Specialty Start Date End Date Jasmine Mathias MD [address] [id number] PCP - General Family Medicine 06/27/15 Jasmine Mathias MD [address] [id number] Referring Physician Family Medicine 07/08/17 Front End Java Developer Relationship Specialty Start Date End Date Jasmine Mathias MD [address] [place] [address] PCP - MSSP ACO Attributed Provider 03/28/21 Jasmine Mathias MD [address] [phone] PCP - General Family Medicine 12/27/23 Bryan Luz MD [address] [place] [phone] Surgeon Neurosurgery 12/12/23 Della You, medical transcriberSwimming Coach 03/07/24 Front End Java Developer Relationship Specialty Start Date End Date Jasmine Mathias MD [address] [address] PCP - MSSP ACO Attributed Provider 03/28/21 Jasmine Mathias MD [address] [place] [address] PCP - General Family Medicine 12/27/23 Bryan Luz MD [address] [place] [address] Surgeon Neurosurgery 12/12/23 Della You, medical transcriberSwimming Coach 03/07/24 Front End Java Developer Relationship Specialty Start Date End Date Jasmine Mathias MD [address] [place] [address] PCP - MSSP ACO Attributed Provider 03/28/21 Jasmine Mathias MD [address] [place] [address] PCP - General Family Medicine 12/27/23 Bryan Luz MD [address] [place] [address] Surgeon Neurosurgery 12/12/23 Della You, medical transcriberSwimming Coach 03/07/24 Front End Java Developer Relationship Specialty Start Date End Date Jasmine Mathias MD [address] [place] [address] PCP - MSSP ACO Attributed Provider 03/28/21 Jasmine Mathias MD [address] [place] [address] PCP - General Family Medicine 12/27/23 Bryan Luz MD [address] [place] [address] Surgeon Neurosurgery 12/12/23 Della You, medical transcriberSwimming Coach 03/07/24 Front End Java Developer Relationship Specialty Start Date End Date Jasmine Mathias MD [address] [address] PCP - MSSP ACO Attributed Provider 03/28/21 Jasmine Mathias MD [address] [address] PCP - General Family Medicine 12/27/23 Bryan Luz MD [address] [place] [phone] Surgeon Neurosurgery 12/12/23 Front End Java Developer Relationship Specialty Start Date End Date Jasmine Mathias MD [address] [place] [phone] PCP - MSSP ACO Attributed Provider 03/28/21 Jasmine Mathias MD [address] [place] [phone] PCP - General Family Medicine 12/27/23 Bryan Luz MD [address] [address] Surgeon Neurosurgery 12/12/23 Front End Java Developer Relationship Specialty Start Date End Date Jasmine Mathias MD [address] [address] PCP - MSSP ACO Attributed Provider 03/28/21 Jasmine Mathias MD [address] [address] PCP - General Family Medicine 12/27/23 Bryan Luz MD [address] [place] [address] Surgeon Neurosurgery 12/12/23 Front End Java Developer Relationship Specialty Start Date End Date Jasmine Mathias MD [address] [place] [address] PCP - MSSP ACO Attributed Provider 03/28/21 Jasmine Mathias MD [address] [place], [place] [phone] PCP - General Family Medicine 12/27/23 Bryan Luz MD [address] [address] Surgeon Neurosurgery 12/12/23 Front End Java Developer Relationship Specialty Start Date End Date Jasmine Mathias MD [address] [place] [phone] PCP - MSSP ACO Attributed Provider 03/28/21 Jasmine Mathias MD [address] [place], [place] [phone] PCP - General Family Medicine 12/27/23 Bryan Luz MD [address] [place] [address] Surgeon Neurosurgery 12/12/23 Front End Java Developer Relationship Specialty Start Date End Date Jasmine Mathias MD [address] [place] [address] PCP - MSSP ACO Attributed Provider 03/28/21 Jasmine Mathias MD [address] [place] [address] PCP - General Family Medicine 12/27/23 Bryan Luz MD [address] [place] [address] Surgeon Neurosurgery 12/12/23 Front End Java Developer Relationship Specialty Start Date End Date Jasmine Mathias MD [address] [place] [address] PCP - MSSP ACO Attributed Provider 03/28/21 Jasmine aMthias MD [address] [place] [address] PCP - General Family Medicine 12/27/23 Bryan Luz MD [address] [place] [address] Surgeon Neurosurgery 12/12/23 Front End Java Developer Relationship Specialty Start Date End Date Jasmine Mathias MD [address] [place] [address] PCP - MSSP ACO Attributed Provider 03/28/21 Jasmine Mathias MD [address] [place] [address] PCP - General Family Medicine 12/27/23 Bryan Luz MD [address] [place] [address] Surgeon Neurosurgery 12/12/23 Front End Java Developer Relationship Specialty Start Date End Date Jasmine Mathias MD [address] [address] PCP - MSSP ACO Attributed Provider 03/28/21 Jsamine Mathias MD [address] [address] PCP - General Family Medicine 12/27/23 Bryan Luz MD [address] [address] Surgeon Neurosurgery 12/12/23 Front End Java Developer Relationship Specialty Start Date End Date Jasmine Mathias MD [address] [id number] PCP - General Family Medicine 06/27/15 Jasmine Mathias MD [address] [place] [phone] Referring Physician Family Medicine 07/08/17 Front End Java Developer Relationship Specialty Start Date End Date Jasmine Mathias MD [address] [address] PCP - MSSP ACO Attributed Provider 03/28/21 Jasmine Mathias MD [address] [address] PCP - General Family Medicine 12/27/23 Byran Luz MD [address] [address] Surgeon Neurosurgery 12/12/23 Team Status: Active Member Role Status Dates Dr. Jasmine Mathias MD Family Provider Active Dr. Jasmine Mathais MD Primary Care Provider Act alejandrina Team Status: Active Member Role Status Dates Dr. Jasmine Mathias MD Primary Care Provider Act alejandrina Start: August 10, 2024 Dr. Jasmine Mathias MD Referring Provider Active Start: August 10, 2024 ANGELES Zheng Attending Provider Active Star t: August 10, 2024 Team Status: Inactive Member Role Status Dates Dr. Jasmine Mathias MD Primary Care Provider Act alejandrina Start: August 10, 2024 End: August 10, 2024 Dr. Jw Simons MD Attending Provider Active S tart: August 10, 2024 End: August 10, 2024 Team Status: Inactive Member Role Status Dates Dr. Jasmine Mathias MD Primary Care Provider Act alejandrina Start: August 10, 2024 End: August 10, 2024 Dr. Jasmine Mathias MD Referring Provider Active Start: August 10, 2024 End: August 10, 2024 ANGELES Zheng Attending Provider Active Star t: August 10, 2024 End: August 10, 2024 Front End Java Developer Relationship Specialty Start Date End Date Jasmine Mathias MD [address] [place] [id number] PCP - General Family Medicine 06/27/15 Jasmine Mathias MD [address] [place] [address] Referring Physician Family Medicine 07/08/17 Front End Java Developer Relationship Specialty Start Date End Date Jasmine Mathias MD [address] [phone] PCP - MSSP ACO Attributed Provider 03/28/21 Jasmine Matihas MD [address] [address] PCP - General Family Medicine 12/27/23 Bryan Luz MD [address] [address] Surgeon Neurosurgery 12/12/23 Team Status: Active Member Role Status Dates Dr. Jasmine Mathias MD Primary Care Provider Act alejandrina Team Status: Inactive Member Role Status Dates Dr. Jasmine Mathias MD Primary Care Provider Act alejandrina Start: September 07, 2024 End: September 07, 2024 Dr. Jasmine Mathias MD Referring Provider Active Start: September 07, 2024 End: September 07, 2024 Dr. Elia Villegas MD Attending Provider Active Start: September 07, 2024 End: September 07, 2024 Front End Java Developer Relationship Specialty Start Date End Date Jasmine Mathias MD [address] [address] [place] [facility] Attributed Provider 03/28/21 Jasmine Mathias MD [address] [address] PCP - General Family Medicine 12/27/23 Bryan Luz MD [address] [address] Surgeon Neurosurgery 12/12/23 Scheduled Active and Recently Administ ered Medications (unrecognized section and content) Medication Order 12/24/2022 12/25/2022 12/26/2022 HYDROcodone-acetaminophen ([place]) 5-325 mg per tablet 1 tablet (COMPLETED) 1 tablet, oral, Once, On 12/26/22 at 1815, For 1 dose, If ordered PRN for pain, nurse is permitted to administer this medication for higher pain scores based on patient preference? Yes 182 (Given - Provid er: Lisseth Koo RN) Scheduled Medication Order 09/08/2024 09/09/2024 09/10/2024 lactated Ringer's bolus 1,000 mL (COMPLETED) 1,000 mL, intravenous, at 999 mL/hr, Administer over 1 Hours, Once, On Tue09/10/24 at 1705, For 1 dose 172 (New Bag - Prov ider: Antonia Bacon RN)184 (Stopped - Provider: Antonia Bacon RN) loperamide (Imodium) capsule 4 mg (COMPLETED) 4 mg, oral, Once, On Tue09/10/24 at 1705, For 1 dose 172 (Given - Provid er: Antonia Bacon RN) ondansetron (Zofran) injection 4 mg (COMPLETED) 4 mg, intravenous, Once, On Tue09/10/24 at 1705, For 1 dose, When administering via IV Push, administer over 3-5 minutes. 172 (Given - Provid er: Antonia Bacon RN) Goals (unrecognized section and content) Goals may be documented in a n alternate sectionGoals may be documented in an alternate sectionGoals may be documented in an alternate section FOR RECORDS PERTAINING TO PATIENTS WHO ARE OR HAVE BEEN ENROLLED IN A CHEMICAL DEPENDENCY/SUBSTANCEABUSE PROGRAM, SOME INFORMATION MAY BE OMITTED. This clinical summary was aggregated from multiple sources. Caution should be exercised in using it in the provision of clinical care. This summary normalizes information from multiple sources, and as a consequence, information in this document may materially change the coding, format and clinical context of patient data. In addition, data may be omitted in some cases. CLINICAL DECISIONS SHOULD BE BASED ON THE PRIMARY CLINICAL RECORDS. [employer] provides no warranty or guarantee of the accuracy or completeness of information in this document.
--- OUTSIDE RECORDS SUMMARY | 2024-09-18 05:48 | XMS RPT_ITS | CCD ---
Author Organization [facility] Informat ion Partnership [facility] Care Team Providers Care Line Ordering Clinician Name Role Phone Jasmine Mathias Unavailable Jasmine Mathias Unavailable Antwan Phoenix R Unavailable Unavailable Antwan, Delvis R Unavailable Unavailable Antwan, Delvis R Unavailable Unavailable Antwan, Delvis R Unavailable Unavailable Antwan, Phoenix R Unavailable Unavailable Antwan Phoenix R Unavailable Unavailable Jasmine Mathias Primary Care Provider Jasmine Mathias Unavailable Unavailable Jasmine Mathias Unavailable Unavailab le Jasmine Mathias Primary Care Provider Jasmine Mathias Unavailable Jasmine Lao Unavailable [phone] Savannah Conwaydoroteo Tucker Unavailable [phone] Anais Lugo Unavailable Unavailable Lora Chisholm Unavailable Unavailable Jasmine Mathias Primary Care Provider [phone] Jasmine Mathias Primary Care Provider Jasmine Mathias Unavailable Jasmine Lao Unavailable Jasmine Mathias Unavailable [phone] Unavailable Unavailable Jasmine Mathias Unavailable Anders Pierce [...] Shilo TATUM, Jasmine Mcclain Unavailable Man TATUM, aCryn Ceballos Unavailable Jasmine Mathias MD Primary Care Provider [phone] Vic TATUM, Jasmine Ray Primary Care Provid er Vic TATUM, Jasmine Ray Unavailable Shilo TATUM, Jasmine Mcclain Unavailable Man TATUM, Caryn Ceballos Unavailable Jasmine Mathias MD Primary Care Provider Jasmine Mathias MD Unavailable Dr. Corby Jacobs Attending Unavail able Reynaldo, Dr. Corby Moncada Referring Unavail able Vic, Dr. Jasmine Ray Primary Care Un available Vic, Dr. Jasmnie Ray Primary Care Un available Reynaldo, Dr. [...] Un available Kamenik, Ms. Nena Sutherland Attending [facility], Dr. Jasmine Ray Primary Care Un available Kamenik, MsMike Sutherland Attending [facility], Ms. Nena [facility]utherland [facility] Primary [facility] Un [facility]. Jasmine Ray Primary Care Un available Mancilla, MsMike Herrera Attending [facility], Ms. Mauricio Herrera Referring U navailable [facility], Dr. Jasmine Ray Primary Care Un available Mancilla, MsMike Herrera Attending U navailable [facility], Dr. Jasmine Ray Attending Un available [facility], Dr. Jasmine Ray Primary Care Un available Kamenik, Ms. Nena Sutherland Attending [facility], Dr. Jasmine Ray Primary Care Un available Kamenik, Ms. Nena Sutherland [facility]ending [facility] J[facility] Ray Primary Care Un available [facility]. J[facility] Ray Primary Care Un available Mancilla, MsMike Herrera Attending U navailable Darmfadi, Dr. Mary Carmen Tavarez [facility]mitting [facility], Dr. Mary Carmen Tavarez Attending [facility] Mathias, Dr. Jasmine Ray Primary Care Un available [facility], Dr. Jasmine Ray Attending Un available [facility]. J[facility] Ray Primary Care Un available [...] JASMINE A Primary Care Unavailab le [place], JAMSINE A Primary Care Unavailab SORAYA Persaud Referring Unavailable LONGSD[place]F, JASMINE A Primary Care Unavailab kirti TOVARMARY CARMEN Referring Unavailable JOYMARY CARMEN ZIMMERMAN Attending Unavailable VIC, JASMINE Primary Care Unavailable Vic TATUM, Dr. Andre Primary Care Provide r Vic TATUM, Dr. Andre Referring Provider Carolyn Peck Attending Provider Kristyn TATUM, Dr. Escalera Attending Provider Bakari TATUM, Dr. Rodrigez Attending Provider VIC, JASMINE A Attending Unavailab le LONG[place]F, [...] LONGSDORF, JASMINE A Primary Care Unavailab le LONGNDORF, JASMINE A Attending Unavailab le LONGSD[place]F, JASMINE [...] LONGSDORF, JASMINE A Primary Care Unavailab CELESTE Ealge Attending Unavailable CELESTE MORAN Referring Unavailable [place], [...] Translations: [Augmentin] Drug Allergy 07-20-19 23 Unknown [facility] Work Phone: Opioid Agonists (20 sources) Codeine; Translations: [codeine] Drug Allergy 05-26-19 16 Other, Unknown [facility] Work Phone: (20 sources) codeine; Translations: [codeine] Propensity to adverse reactions to drug 05-05-20 04 Other, Other (See Comments), Drug-induced constipation with proper administration [facility] (20 sources) morphine; Translations: [morphine] Propensity to adverse reactions to drug 05-26-19 16 Unknown [facility] (20 sources) Amoxicillin / Clavulanate; Translations: [Augmentin] Drug Allergy Unknown [facility] Work Phone: (20 sources) Amoxicillin / Clavulanate; Translations: [AMOXICILLIN-PO T CLAVULANATE] Drug Allergy 05-26-[address] [facility] Work Phone: (1 source) Codeine Drug Allergy 09-08-19 25 [facility] Medications Current Medications Medication Drug Class(es) [...] . 28 tablet 0 01/13/2023 01/20/2023 Active [id number] 200 actuat albuterol 0.09 mg/actuat metered dose [...] Start: 05-10-2022 take 2 tablets by mo [facility] once, then take 1 tablet by mouth [...] dose. One hour before procedure. NEEDS A FIELD GEOLOGIST TO AND FROM PROCEDURE 1 tablet 04/11/2024 [...] : 24-Jan-2019 Active take 8 tablets by [facility] every week methotrexate (Trexall) 2.5 mg tablet [...] Antagonist Start: 01-05-2023 naloxone (NARCAN) 4 mg/actuation [place] Administer 1 spray into one nostril for known or suspected opioid overdose. If patient worsens or does not respond, may repeat in 2-3 minutes. . 2 each 0 01/05/2023 Active naloxone (NARCAN) 4 mg/actuation [place] (4 sources) Start: 01-05-2023 naloxone (NARCAN) 4 mg/actuation [place] Administer 1 spray into one nostril for known or suspected opioid overdose. If patient worsens or does not respond, may repeat in 2-3 minutes. . 2 each 01/05/2023 Active nortriptyline 25 mg oral capsule (20 sources) Tricyclic Antidepressant Start: 08-10-2024 take 1 capsule by mouth once daily at bedtime Nortriptyline 25 mg capsule Active 25 mg PO .[facility]' August 10, 2024 12:00am Start: 05-16-2015 End: [...] injection (20 sources) Bisphosphonate Start: 08-10-2024 Zoledronic Jxiz-Jibeblhd-Itekb (Reclast) 5 mg/100 mL piggyback Active 1 NMA IV .QYEAR August 10, 2024 12:00am 1 ea intravenously; 100 once yearly Start: 08-10-2024 Zoledronic Aci u-Xtuqdwwr-Etsuw (Reclast) 5 mg/100 mL piggyback Active NMA [...] Agonist Start: 12-26-2022 End: 12-26-2022 HYDROcodone-aceta minophen ([place]) 5-325 mg per tablet 1 tablet alendronic [...] 3 Episodic Other aftercare (2 sources) Other manager terminal (current) drug therapy; Translations: [Other longterm (current) drug therapy] Onset: 4 Episodic Other [...] TIME PCR Not detected Normal NOT DETECTED [facility] Comment on above: Order Comment: SPLIT 09/10/2024 FROM [id number] Result Comment: This test is for use only with liquid or soft stools; performance characteristics of other clinical specimen types have not been established. This assay was performed by [employer](R) PCR. The performance characteristics of this assay have been determined by [employer]. Performance characteristics refer to the analytical performance of the test. For additional information, please refer to http://education.Interactive Fitness.Biomedical Innovation/faq/OZB684 (This link is being provided for informational/educational purposes only.) Performed By: #### 6 14, 91616, 13879 #### [facility] [address], [address] [place] [id number] Geophysical Observer: Eric Handley MD GIARDIA AND CRYPTOSPORIDIUM ANTIGEN PANELon 09-14-2024 CRYPTOSPORIDIUM ANTIGEN, EIA SEE NOTE Normal [facility] Comment on above: Result Comment: CRYPTOSPORIDIUM ANTIGEN, EIA Micro Number: [id number] Test Status: Final Specimen Source: Stool Specimen Quality: Adequate Cryptosporidium: Not Detected Reference Range: Not Detected NOTE: Due to intermittent shedding, one negative sample does not necessarily rule out the presence of a parasitic infection. Performed By: #### 6 81, 87804, 09052 #### [facility] [place] [address] Geophysical Observer: Eric Handley MD GIARDIA AG, EIA, STOOL SEE NOTE Normal [facility] Comment on above: Result Comment: GIARDIA AG, EIA, STOOL Micro Number: [id number] Test Status: Final Specimen Source: Stool Specimen Quality: Adequate Giardia Result 1: Not Detected Reference Range: Not Detected NOTE: Due to intermittent shedding, one negative sample does not necessarily rule out the presence of a parasitic infection. Performed By: #### 6 81, 39889, 86909 #### [facility] [place] [address] Geophysical Observer: Eric Handley MD OVA AND PARASITES, CONC AND PERM SMEARon 09-14-2024 CONCENTRATE (1) SEE NOTE Normal [facility] Comment on above: Performed By: #### 6 81, 53535, 66906 #### [facility] [place] [address] Geophysical Observer: Eric Handley MD TRICHROME (1) SEE NOTE Normal [facility] Comment on above: Performed By: #### 6 81, 78003, 78417 #### [facility] [place] [address] Geophysical Observer: Eric Handley MD GASTROINTESTINAL PATHOGEN PA LESLIE, REAL TIME PCRon 09-11-2024 [employer] Not detected Normal NOT DETECTED [facility] Comment on above: Order Comment: COLLE CTION KIT GIVEN TO PATIENT. PATIENT ADVISED TO RETURN. Performed By: #### 3 6170 #### [facility] [place] [address] Geophysical Observer: Eric Handley MD NOROVIRUS GI/GII Not detected Normal NOT DETECTED [facility] Comment on above: Order Comment: COLLE CTION KIT GIVEN TO PATIENT. PATIENT ADVISED TO RETURN. Performed By: #### 3 0070 #### [facility] [place] [address] Geophysical Observer: Eric Handley MD ROTAVIRUS A Not detected [...] By: #### 3 8470 #### [facility] [place] [address] Geophysical Observer: Eric Handley MD SALMONELLA SPECIES Not detected Normal NOT DETECTED [facility] Comment on above: Order Comment: COLLE CTION KIT GIVEN TO PATIENT. PATIENT ADVISED TO RETURN. Performed By: #### 3 8470 #### [facility] [place] [address] Geophysical Observer: Eric Handley MD SHIGA TOXIN 1 Not detected Normal NOT DETECTED [facility] Comment on above: Order Comment: COLLE CTION KIT GIVEN TO PATIENT. PATIENT ADVISED TO RETURN. Performed By: #### 3 8470 #### [facility] [place] [address] Geophysical Observer: Eric Handley MD SHIGA TOXIN 2 Not detected Normal NOT DETECTED [facility] Comment on above: Order Comment: COLLE CTION KIT GIVEN TO PATIENT. PATIENT ADVISED TO RETURN. Performed By: #### 3 8470 #### [facility] [place] [address] Geophysical Observer: Eric Handley MD SHIGELLA SPECIES Not detected Normal NOT DETECTED [facility] Comment on above: Order Comment: COLLE CTION KIT GIVEN TO PATIENT. PATIENT ADVISED TO RETURN. Performed By: #### 3 8470 #### [facility] [place] [address] Geophysical Observer: Eric Handley MD VIBRIO GROUP Not detected Normal NOT DETECTED [facility] Comment on above: Order Comment: COLLE CTION KIT GIVEN TO PATIENT. PATIENT ADVISED TO RETURN. Performed By: #### 3 8470 #### [facility] [address] [place] [address], [address] [place] [address] Geophysical Observer: Eric Handley MD YERSINIA ENTEROCOLITICA Not detected Normal NOT DETECTED [facility] Comment on above: Order Comment: COLLE CTION KIT GIVEN TO PATIENT. PATIENT ADVISED TO RETURN. Performed By: #### 3 8470 #### [facility] [address] [place], [place] [address]e Rd, [address] [place] [address] Geophysical Observer: Eric Handley MD CBC W Auto Differential pane l (Bld)on 09-10-2024 Basophils (Bld) [#/Vol] 0.01 10*3/uL [facility] Basophils/100 WBC (Bld) 0.2 % 0.0 - 2.0 % [facility] Eosinophils (Bld) [#/Vol] 0.05 10*3/uL [facility] Eosinophils/100 WBC (Bld) 0.8 % 0.0 - 6.0 % [facility] Erythrocyte distribution width (RBC) [Ratio] 18.4 % High 11.5 - 14.5 % [facility] Hematocrit (Bld) [Volume fraction] 34.2 % Low 36.0 - 46.0 % [facility] Hemoglobin (Bld) [Mass/Vol] 10.9 g/dL Low 12.0 - 16.0 g/dL [facility] Immature granulocytes (Bld) [#/Vol] 0.02 10*3/uL [facility] Immature granulocytes/100 WBC (Bld) 0.3 % 0.0 - 0.9 % [facility] Comment on above: Immature Granulocyte Count (IG) includes promyelocytes, myelocytes and metamyelocytes but does not include bands. Percent differential counts (%) should be interpreted in the context of the absolute cell counts (cells/UL). Interpretation and review of laboratory results Abnormal [facility] Lymphocytes (Bld) [#/Vol] 0.93 10*3/uL [facility] Lymphocytes/100 WBC (Bld) 14.5 % 13.0 - 44.0 % [facility] MCH (RBC) [Entitic mass] 30.5 pg 26.0 - 34.[address] [facility] MCHC (RBC) [Mass/Vol] 31.9 g/dL Low 32.0 - 36.0 g/dL [facility] MCV (RBC) [Entitic vol] 96 fL 80 - [address] [facility] Monocytes (Bld) [#/Vol] 0.62 10*3/uL [facility] Monocytes/100 WBC (Bld) 9.7 % 2.0 - 10.0 % [facility] Neutrophils (Bld) [#/Vol] 4.79 10*3/uL [facility] Comment on above: Percent differential counts (%) should be interpreted in the context of the absolute cell counts (cells/uL). Neutrophils/100 WBC (Bld) 74.5 % 40.0 - 80.0 % [facility] Nucleated RBC/100 WBC (Bld) [Ratio] 0 % [facility] Platelets (Bld) [#/Vol] 242 10*3/uL [facility] RBC (Bld) [#/Vol] 3.57 10*6/uL Low [facility] WBC (Bld) [#/Vol] 6.4 10*3/uL [facility] Basophils (Bld) [#/Vol] 0.01 x10*3/uL Normal 0.00-0.10 [facility] Comment on above: Performed By: #### 5 7021-8 ####CHARLES COYNE ([id number])[facility] [place] [address] Basophils/100 WBC (Bld) 0.2 % Normal 0.0-2.0 [facility] Comment on above: Performed By: #### 5 7021-8 ####CHARLES COYNE ([id number])[facility])[address] [place] [address]122 Eosinophils (Bld) [#/Vol] 0.05 x10*3/uL Normal 0.00-0.40 [facility] Comment on above: Performed By: #### 5 7021-8 ####CHARLES COYNE ([id number])[facility])[address] [place] [address] 02289 Eosinophils/100 WBC (Bld) 0.8 % Normal 0.0-6.0 [facility] Comment on above: Performed By: #### 5 7021-8 ####CHARLES COYNE ([id number])[facility])[address] [place] [address] 18449 Erythrocyte distribution width (RBC) [Ratio] 18.4 % High 11.5-14.5 [facility] Comment on above: Performed By: #### 5 7021-8 ####CHARLES COYNE ([id number])[facility])[address] [place] [address] 43951 Hematocrit (Bld) [Volume fraction] 34.2 % Low 36.0-46.0 [facility] Comment on above: Performed By: #### 5 7021-8 ####CHARLES COYNE ([id number])[facility])[address] [place] [address] 38580 Hemoglobin (Bld) [Mass/Vol] 10.9 g/dL Low 12.0-16.0 [facility] Comment on above: Performed By: #### 5 7021-8 ####CHARLES COYNE ([id number])[facility])[address] [place] [address] 99151 Immature granulocytes (Bld) [#/Vol] 0.02 x10*3/uL Normal 0.00-0.50 [facility] Comment on above: Performed By: #### 5 7021-8 ####CHARLES COYNE ([id number])[facility])[address] [place] [address] 26183 Immature granulocytes/100 WBC (Bld) 0.3 % Normal 0.0-0.9 [facility] Comment on above: Result Comment: Karla ture Granulocyte Count (IG) includes promyelocytes, myelocytes and metamyelocytes but does not include bands. Percent differential counts (%) should be interpreted in the context of the absolute cell counts (cells/UL). Performed By: #### 5 7021-8 ####CHARLES COYNE ([id number])[facility])[address] [place] [address] 63196 Lymphocytes (Bld) [#/Vol] 0.93 x10*3/uL Normal 0.80-3.00 [facility] Comment on above: Performed By: #### 5 7021-8 ####CHARLES COYNE ([id number])[facility])[address] [place] [address] 33102 Lymphocytes/100 WBC (Bld) 14.5 % Normal 13.0-44.0 [facility] Comment on above: Performed By: #### 5 7021-8 ####CHARLES COYNE ([id number])[facility])[address] [place] [address] 13827 MCH (RBC) [Entitic mass] 30.5 pg Normal 26.0-34.0 [facility] Comment on above: Performed By: #### 5 7021-8 ####CHARLES COYNE ([id number])[facility])[address] [place] [address] 19246 MCHC (RBC) [Mass/Vol] 31.9 g/dL Low 32.0-36.0 [facility] Comment on above: Performed By: #### 5 7021-8 ####CHARLES COYNE ([id number])[facility] [place] [address] 05500 MCV (RBC) [Entitic vol] 96 fL Normal 80-100 [facility] Comment on above: Performed By: #### 5 7021-8 ####CHARLES COYNE ([id number])[facility])[address] [place] [address] 01056 Monocytes (Bld) [#/Vol] 0.62 x10*3/uL Normal 0.05-0.80 [facility] Comment on above: Performed By: #### 5 7021-8 ####CHARLES COYNE ([id number])[facility] [place] [address] 31511 Monocytes/100 WBC (Bld) 9.7 % Normal 2.0-10.0 [facility] Comment on above: Performed By: #### 5 7021-8 ####CHARLES COYNE ([id number])[facility])[address] [place] [address] 54686 Neutrophils (Bld) [#/Vol] 4.79 x10*3/uL Normal 1.60-5.50 [facility] Comment on above: Result Comment: Perc ent differential counts (%) should be interpreted in the context of the absolute cell counts (cells/uL). Performed By: #### 5 7021-8 ####CHARLES COYNE ([id number])[facility])[address] [place] [address] 94364 Neutrophils/100 WBC (Bld) 74.5 % Normal 40.0-80.0 [facility] Comment on above: Performed By: #### 5 7021-8 ####CHARLES COYNE ([id number])[facility])[address] [place] [address] 74471 Nucleated RBC/100 WBC (Bld) [Ratio] 0.0 /100 WBCs Normal 0.0-0.0 [facility] Comment on above: Performed By: #### 5 7021-8 ####CHARLES COYNE ([id number])[facility])[address] [place] [address] 76464 Platelets (Bld) [#/Vol] 242 x10*3/uL Normal 150-450 [facility] Comment on above: Performed By: #### 5 7021-8 ####CHARLES COYNE ([id number])[facility])[address] [place] [address] 89520 RBC (Bld) [#/Vol] 3.57 x10*6/uL Low 4.00-5.20 [facility] Comment on above: Performed By: #### 5 7021-8 ####CHARLES COYNE ([id number])[facility])[address] [place] [address] WBC (Bld) [#/Vol] 6.4 x10*3/uL Normal 4.4-11.3 [facility] Comment on above: Performed By: #### 5 7021-8 ####CHARLES COYNE ([id number])[facility])[address] [place] [id number] Comprehensive metabolic 2000 panelon 09-10-2024 Albumin BCP dye [Mass/Vol] 3.7 g/dL 3.4 - 5.0 g/dL [facility] ALP [Catalytic activity/Vol] 57 U/L 33 - 136 U/L [facility] ALT With P-5'-P [Catalytic activity/Vol] 29 U/L 7 - 45 U/L [facility] Comment on above: Patients treated wit h Sulfasalazine may generate falsely decreased results for ALT. Anion gap [Moles/Vol] 9 mmol/L Low 10 - 20 mmol/L [facility] AST With P-5'-P [Catalytic activity/Vol] 32 U/L 9 - 39 U/L [facility] Bilirubin [Mass/Vol] 0.3 mg/dL 0.0 - 1.2 mg/dL [facility] Calcium [Mass/Vol] 7.1 mg/dL Low 8.6 - 10. 3 mg/dL [facility] Chloride [Moles/Vol] 107 mmol/L 98 - 107 mmol/L [facility] CO2 [Moles/Vol] 25 mmol/L 21 - 32 mmol/L [facility] Creatinine [Mass/Vol] 0.76 mg/dL 0.50 - 1.05 mg/dL [facility] GFR/1.73 sq M.predicted among non-blacks MDRD (S/P/Bld) [Vol rate/Area] 83 mL/min/{1.73_m2} - PINF [facility] Comment on above: Calculations of taye mated GFR are performed using the 2020 CKD-EPI Study Refit equation without the race variable for the IDMS-Traceable creatinine methods. https://jasn.asnjournals.org/content//ASN.061635001 8 Glucose [Mass/Vol] 112 mg/dL High 74 - 99 mg/dL [facility] Potassium [Moles/Vol] 3.8 mmol/L 3.5 - 5.3 mmol/L [facility] Protein [Mass/Vol] 6 g/dL Low 6.4 - 8.2 g/dL [facility] Sodium [Moles/Vol] 137 mmol/L 136 - 145 mmol/L [facility] Urea nitrogen [Mass/Vol] 21 mg/dL 6 - 23 mg/dL [facility] Albumin BCP dye [Mass/Vol] 3.7 g/dL Normal 3.4-5.0 [facility] Comment on above: Performed By: #### 2 4323-8 ####CHARLES COYNE ([id number])[facility])[address] [place] [address] 57245 ALP [Catalytic activity/Vol] 57 U/L Normal 33-136 [facility] Comment on above: Performed By: #### 2 4323-8 ####CHARLES COYNE ([id number])[facility])[address] [place] [address] 51866 ALT With P-5'-P [Catalytic activity/Vol] 29 U/L Normal 7-45 [facility] Comment on above: Result Comment: Lori ents treated with Sulfasalazine may generate falsely decreased results for ALT. Performed By: #### 2 4323-8 ####CHARLES COYNE ([id number])[facility] [place] [address] Anion gap [Moles/Vol] 9 mmol/L Low 10-20 [facility] Comment on above: Performed By: #### 2 4323-8 ####CHARLES COYNE ([id number])[facility])[address] [place] [address] 99084 AST With P-5'-P [Catalytic activity/Vol] 32 U/L Normal 9-39 [facility] Comment on above: Performed By: #### 2 4323-8 ####CHARLES COYNE ([id number])[facility])[address] [place] [address] Bilirubin [Mass/Vol] 0.3 mg/dL Normal 0.0-1.2 [facility] Comment on above: Performed By: #### 2 4323-8 ####CHARLES COYNE ([id number])[facility])[address] [place] [address] 33085 Calcium [Mass/Vol] 7.1 mg/dL Low 8.6-10.3 [facility] Comment on above: Performed By: #### 2 4323-8 ####CHARLES COYNE ([id number])[facility])[address] [place] [address] 12185 Chloride [Moles/Vol] 107 mmol/L Normal 98-107 [facility] Comment on above: Performed By: #### 2 4323-8 ####CHARLES COYNE ([id number])[facility])[address] [place] [address] 21043 CO2 [Moles/Vol] 25 mmol/L Normal 21-32 [facility] Comment on above: Performed By: #### 2 4323-8 ####CHARLES COYNE ([id number])[facility])[address] [place] [address] 09928 Creatinine [Mass/Vol] 0.76 mg/dL Normal 0.50-1.05 [facility] Comment on above: Performed By: #### 2 4323-8 ####CHARLES COYNE ([id number])[facility])[address] [place] [address] 07619 Glomerular filtration rate/1.73 sq M.predicted 83 mL/min/1.73m*2 Normal >60 [facility] Comment on above: Result Comment: Calc ulations of estimated GFR are performed using the 2020 CKD-EPI Study Refit equation without the race variable for the IDMS-Traceable creatinine methods. https://jasn.asnjournals.org/content/early//ASN.327550011 8 Performed By: #### 2 4323-8 ####CHARLES COYNE ([id number])[facility])[address] [place] [address] 32153 Glucose [Mass/Vol] 112 mg/dL High 74-99 [facility] Comment on above: Performed By: #### 2 4323-8 ####CHARLES COYNE ([id number])[facility])[address] [place] [address] 62537 Potassium [Moles/Vol] 3.8 mmol/L Normal 3.5-5.3 [facility] Comment on above: Performed By: #### 2 4323-8 ####CHARLES COYNE ([id number])[facility] [facility] ([facility])[address] [place] [address] Protein [Mass/Vol] 6.0 g/dL Low 6.4-8.2 [facility] Comment on above: Performed By: #### 2 4323-8 ####CHARLES COYNE ([id number])[facility] ([facility])[address] [place] [address]1550 Sodium [Moles/Vol] 137 mmol/L Normal 136-145 [facility] Comment on above: Performed By: #### 2 4323-8 ####CHARLES COYNE ([id number])[facility] ([facility])[address] [place] [address] 95973 Urea nitrogen [Mass/Vol] 21 mg/dL Normal 6-23 [facility] Comment on above: Performed By: #### 2 4323-8 ####CHARLES COYNE ([id number])[facility] ([facility])[address] [place] [address]98[address] Lactateon 09-10-2024 Lactate [Moles/Vol] 0.5 mmol/L 0.4 - 2.0 mmol/L [facility] Lactate [Moles/Vol] 0.5 mmol/L Normal 0.4-2.0 [facility] Comment on above: Order Comment: Venip uncture immediately after or during the administration of Metamizole may lead to falsely low results. Testing should be performed immediately prior to Metamizole dosing. Performed By: #### 2 524-7 ####SOTO STANFORD ([id number])[facility] ([facility])[address] [place] [address] Lactate [Moles/Vol]on 2024 Venipuncture immedia tely after or during the administration of Metamizole may lead to falsely low results. Testing should be performed immediately prior to Metamizole dosing. [facility] MR/PAT.ANEon 09-10-2024 MR/PAT.ANE [facility] Medical Records Department [address] [place] [address] PAT - Anesthesia 09/10/24 0953 MR#: [id number] Acct: [id number] Name: NARENDRA ARGUELLES Rep #: [id number] : 1950 73 From: Balta Ren MD PCP: Dr. Jasmine Mathias MD Status:PRE [facility] [place] Race: C [place] [facility] Pre-Assessment Diagnosis/Proposed Procedure Planned Operative Procedure(s): ANTERIOR CERVICAL FUSION C3-4 C4-5 REMOVAL HARDWARE Anesthesia History Anesthesia History - telemarketer: Anesthesia History - telemarketer Hx Hospitalization No 09/04/24 14:18 Any Problems [...] take am of surgery PONV PONV - telemarketer: PONV - telemarketer Female Yes 09/04/24 14:18 HX of Motion [...] 08/10/24 09:34 Respiratory Assessment Respiratory Assessment - telemarketer: Respiratory Tract Infection Hx - telemarketer Hx Respiratory Tract Infection No 09/04/24 14:18 STOP Sleep Apnea STOP Sleep Apnea - telemarketer: STOP Sleep Apnea - telemarketer Hx Hypertension Yes: CONTROLLED WITH MED 09/04/24 [...] Tobacco Use History Tobacco Use History - telemarketer: Tobacco Use History - telemarketer Tobacco Use Smoking Status Never smoker 09/04/24 14:18 Hx Tobacco Use No 09/04/24 14:18 Years Smoking Packs Smoked per Day Smoking Cessation Date was within the last 15 years Hx Smoking Cessation Date Hx Smoking Cessation Counseling Hematologic Medial History Hematologic Hx - telemarketer: 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 Normal [facility] Magnesiumon 09-10-2024 Magnesium [Mass/Vol] 1.86 mg/dL 1.60 - 2.40 mg/dL [facility] Magnesium [Mass/Vol] 1.86 mg/dL Normal 1.60-2.40 [facility] Comment on above: Performed By: #### 1 9123-9 ####CHARLES COYNE ([id number])[facility] ([facility])[address] [place] [address] No Panel Informationon 09-10 Interpretation and review of laboratory results Abnormal [facility] Interpretation and review of laboratory results Normal [facility] Phosphateon 09-10-2024 Phosphate [Mass/Vol] 2.1 mg/dL Low 2.5-4.9 [facility] Comment on above: Performed By: #### 2 777-1 ####CHARLES COYNE ([id number])[facility])[address] [place] [address] Phosphoruson 09-10-2024 Phosphate [Mass/Vol] 2.1 mg/dL Low 2.5 - 4.9 mg/dL [facility] Hepatitis A AB, Totalon 08-26 HEPATITIS A,TOT Negative Normal Negative [facility] Comment on above: Result Comment: Comm ent: The HAV total antibody assay detects both IgG and IgM but does not differentiate between them. A negative result suggests susceptibility to infection. A positive result could be due to vaccination, previously resolved infection or active infection. Testing for HAV IgM should be performed if active HAV infection is suspected. [employer] offers profiles that will automatically reflex positive HAV total antibody results to IgM (e.g., panel #[id number] HAV Antibody w/ Rfx). Performed at: [address] [id number] Drier Operator Head: Reagan Lua PhD, Phone: [phone] Performed By: #### M 100.651, L100.0100, L3100.0300, BTSPAT, L3890.6006, L3890.6202, L3890.6301, L500.2500, L501.9985 ####[facility] [address] [place], [place], [id number] MRSA/SAID NASAL SCREENon MRSA+SAID SCRN Reason for Exam: El kelly MRSA MRSA Negative S. AUREUS S. aureus Negative Normal [facility] Comment on above: Performed By: #### M 100.651, L100.0100, L3100.0300, BTSPAT, L3890.6006, L3890.6202, L3890.6301, L500.2500, L501.9985 ####[facility] [address] [place], [place], [id number] Basic Metabolic Profile (BMP )on 09-07-2024 BUN/CRE 32.6 RATIO High 10-20 [facility] Comment on above: Performed By: #### M 100.651, L100.0100, L3100.0300, BTSPAT, L3890.6006, L3890.6202, L3890.6301, L500.2500, L501.9985 #### [facility] [address] [place], [address] Calcium [Mass/Vol] 10.0 mg/dL Normal 7.6-11.0 [facility] Comment on above: Performed By: #### M 100.651, L100.0100, L3100.0300, BTSPAT, L3890.6006, L3890.6202, L3890.6301, L500.2500, L501.9985 #### [facility] [address] [place], [address] Chloride [Moles/Vol] 102 mmol/L Normal 98-108 [facility] Comment on above: Performed By: #### M 100.651, L100.0100, L3100.0300, BTSPAT, L3890.6006, L3890.6202, L3890.6301, L500.2500, L501.9985 #### [facility] [address] [place], [address] CO2 [Moles/Vol] 25.5 mmol/L Normal 21.0-32.0 [facility] Comment on above: Performed By: #### M 100.651, L100.0100, L3100.0300, BTSPAT, L3890.6006, L3890.6202, L3890.6301, L500.2500, L501.9985 #### [facility] [address] [place], [address] Creatinine [Mass/Vol] 0.91 mg/dL Normal 0.70-1.20 [facility] Comment on above: Performed By: #### M 100.651, L100.0100, L3100.0300, BTSPAT, L3890.6006, L3890.6202, L3890.6301, L500.2500, L501.9985 #### [facility] [address] [place], [address] GAP 12 Normal 5-15 [facility] Comment on above: Performed By: #### M 100.651, L100.0100, L3100.0300, BTSPAT, L3890.6006, L3890.6202, L3890.6301, L500.2500, L501.9985 #### [facility] [address] [place], [address] GFR/1.73 sq M.predicted among non-blacks MDRD (S/P/Bld) [Vol rate/Area] 67 mL/min/{1.73_m2} Normal >60 [facility] Comment on above: Result Comment: mL/m in/1.73m2 CKD-EPI Creatinine Equation (2020) Performed By: #### M 100.651, L100.0100, L3100.0300, BTSPAT, L3890.6006, L3890.6202, L3890.6301, L500.2500, L501.9985 #### [facility] [address] [place], [address] Glucose [Mass/Vol] 71 mg/dL Normal 70-99 [facility] Comment on above: Performed By: #### M 100.651, L100.0100, L3100.0300, BTSPAT, L3890.6006, L3890.6202, L3890.6301, L500.2500, L501.9985 #### [facility] [address] [place], [address] Potassium [Moles/Vol] 4.3 mmol/L Normal 3.3-5.1 [facility] Comment on above: Performed By: #### M 100.651, L100.0100, L3100.0300, BTSPAT, L3890.6006, L3890.6202, L3890.6301, L500.2500, L501.9985 #### [facility] [address] [place], [address] Sodium [Moles/Vol] 139 mmol/L Normal 133-145 [facility] Comment on above: Performed By: #### M 100.651, L100.0100, L3100.0300, BTSPAT, L3890.6006, L3890.6202, L3890.6301, L500.2500, L501.9985 #### [facility] [address] [place], [address] Urea nitrogen [Mass/Vol] 30 mg/dL High 4-19 [facility] Comment on above: Performed By: #### M 100.651, L100.0100, L3100.0300, BTSPAT, L3890.6006, L3890.6202, L3890.6301, L500.2500, L501.9985 #### [facility] [address] [place], [address] CBC W/Diff, Automatedon 06-03 30-2024 Absolute Lymph 0.54 X10 3/uL Low 0.83-4.51 [facility] Comment on above: Performed By: #### M 100.651, L100.0100, L3100.0300, BTSPAT, L3890.6006, L3890.6202, L3890.6301, L500.2500, L501.9985 #### [facility] [address] [place], [address] Absolute Neut 4.3 X10 3/uL Normal 2.0-7.7 [facility] Comment on above: Performed By: #### M 100.651, L100.0100, L3100.0300, BTSPAT, L3890.6006, L3890.6202, L3890.6301, L500.2500, L501.9985 #### [facility] [address] [place], [address] Basophils/100 WBC (Bld) 0.4 % Normal 0-1 [facility] Comment on above: Performed By: #### M 100.651, L100.0100, L3100.0300, BTSPAT, L3890.6006, L3890.6202, L3890.6301, L500.2500, L501.9985 #### [facility] [address] [place], [address] Eosinophils/100 WBC (Bld) 1.6 % Normal 0-5 [facility] Comment on above: Performed By: #### M 100.651, L100.0100, L3100.0300, BTSPAT, L3890.6006, L3890.6202, L3890.6301, L500.2500, L501.9985 #### [facility] [address] [place], [address] Erythrocyte distribution width (RBC) [Ratio] 18.5 % High 11.6-14.6 [facility] Comment on above: Performed By: #### M 100.651, L100.0100, L3100.0300, BTSPAT, L3890.6006, L3890.6202, L3890.6301, L500.2500, L501.9985 #### [facility] [address] [place], [address] Hematocrit (Bld) [Volume fraction] 36.3 % Low 37-47 [facility] Comment on above: Performed By: #### M 100.651, L100.0100, L3100.0300, BTSPAT, L3890.6006, L3890.6202, L3890.6301, L500.2500, L501.9985 #### [facility] [address] [place], [address] Hemoglobin (Bld) [Mass/Vol] 11.8 g/dL Low 12.0-15.0 [facility] Comment on above: Performed By: #### M 100.651, L100.0100, L3100.0300, BTSPAT, L3890.6006, L3890.6202, L3890.6301, L500.2500, L501.9985 #### [facility] [address] [place], [address] IG% 0.600 Normal 0.0-0.9 [facility] Comment on above: Result Comment: IG% - Immature Granulocytes (promyelocytes, myelocytes and metamyelocytes) > 1% indicates that a LEFT SHIFT is Present. Performed By: #### M 100.651, L100.0100, L3100.0300, BTSPAT, L3890.6006, L3890.6202, L3890.6301, L500.2500, L501.9985 #### [facility] [address] [facility] [place], [address] Lymphocytes/100 WBC (Bld) 10.5 % Low 19-41 [facility] Comment on above: Performed By: #### M 100.651, L100.0100, L3100.0300, BTSPAT, L3890.6006, L3890.6202, L3890.6301, L500.2500, L501.9985 #### [facility] [address] [place], [address] MCH (RBC) [Entitic mass] 30.4 pg Normal 27.0-32.0 [facility] Comment on above: Performed By: #### M 100.651, L100.0100, L3100.0300, BTSPAT, L3890.6006, L3890.6202, L3890.6301, L500.2500, L501.9985 #### [facility] [address] [place], [address] MCHC (RBC) [Mass/Vol] 32.5 g/dL Normal 32-36 [facility] Comment on above: Performed By: #### M 100.651, L100.0100, L3100.0300, BTSPAT, L3890.6006, L3890.6202, L3890.6301, L500.2500, L501.9985 #### [facility] [address] [place], [address] MCV (RBC) [Entitic vol] 93.6 fL Normal 81-99 [facility] Comment on above: Performed By: #### M 100.651, L100.0100, L3100.0300, BTSPAT, L3890.6006, L3890.6202, L3890.6301, L500.2500, L501.9985 #### [facility] [address] [place], [address] Monocytes/100 WBC (Bld) 3.9 % Normal 0-10 [facility] Comment on above: Performed By: #### M 100.651, L100.0100, L3100.0300, BTSPAT, L3890.6006, L3890.6202, L3890.6301, L500.2500, L501.9985 #### [facility] [address] [place], [address] Neutrophils/100 WBC (Bld) 83.0 % High 47-70 [facility] Comment on above: Performed By: #### M 100.651, L100.0100, L3100.0300, BTSPAT, L3890.6006, L3890.6202, L3890.6301, L500.2500, L501.9985 #### [facility] [address] [place], [address] Nucleated RBC (Bld) [#/Vol] 0 10*3/uL Normal 0-5 [facility] Comment on above: Performed By: #### M 100.651, L100.0100, L3100.0300, BTSPAT, L3890.6006, L3890.6202, L3890.6301, L500.2500, L501.9985 #### [facility] [address] [place], [address] Platelet mean volume (Bld) [Entitic vol] 10.2 fL Normal 6.2-12.0 [facility] Comment on above: Performed By: #### M 100.651, L100.0100, L3100.0300, BTSPAT, L3890.6006, L3890.6202, L3890.6301, L500.2500, L501.9985 #### [facility] [address] [place], [address] Platelets (Bld) [#/Vol] 267 10*3/uL Normal 150-450 [facility] Comment on above: Performed By: #### M 100.651, L100.0100, L3100.0300, BTSPAT, L3890.6006, L3890.6202, L3890.6301, L500.2500, L501.9985 #### [facility] [address] [place], [address] RBC (Bld) [#/Vol] 3.88 10*6/uL Low 4.2-5.4 [facility] Comment on above: Performed By: #### M 100.651, L100.0100, L3100.0300, BTSPAT, L3890.6006, L3890.6202, L3890.6301, L500.2500, L501.9985 #### [facility] [address] [place], [address] RDW SD 62.7 fl High 35.1-43.9 [facility] Comment on above: Performed By: #### M 100.651, L100.0100, L3100.0300, BTSPAT, L3890.6006, L3890.6202, L3890.6301, L500.2500, L501.9985 #### [facility] [address] [place], [place], [address] WBC (Bld) [#/Vol] 5.1 10*3/uL Normal 4.4-11.0 [facility] Comment on above: Performed By: #### M 100.651, L100.0100, L3100.0300, BTSPAT, L3890.6006, L3890.6202, L3890.6301, L500.2500, L501.9985 #### [facility] [address] [place], [place], [address] HIVon 09-07-2024 HIV Non-Reactive Normal Nonreactive [facility] Comment on above: Result Comment: Non- Reactive Reactive Repeatedly reactive samples must be confirmed according to CDC recommended confirmatory algorithms. The subresults for either HIVAG or AHIV can be used as an aid in the selection of the confirmation algorithm for reactive samples. Send out specimens with Reactive results to [facility] for confirmation. Order the HIV antibody detection and differentiation: [id number] Performed By: #### M 100.651, L100.0100, L3100.0300, BTSPAT, L3890.6006, L3890.6202, L3890.6301, L500.2500, L501.9985 #### [facility] [address] [place], [place], [address] Hemoglobin A1con 09-07-2024 HbA1c (Bld) [Mass fraction] 6.1 % High <=5.6 [facility] Comment on above: Result Comment: Norm al < 5.7 % Prediabetic 5.7 - 6.4 % Diabetic >or= 6.5 % Please note range changes. Performed By: #### M 100.651, L100.0100, L3100.0300, BTSPAT, L3890.6006, L3890.6202, L3890.6301, L500.2500, L501.9985 ####[facility] [address] [place], [place], [address] Hepatitis B Surface Antibody on 09-07-2024 HEP B Surf Ab Non-Reactive Normal [facility] Comment on above: Result Comment: <8.5 mIU/mL: Non-Reactive 8.5<= x <11.5 mIU/mL: Indeterminate >=11.5 mIU/mL: Reactive Non Reactive: Inconsistent with immunity less than <10 mIU/mL Reactive: Consistent with immunity greater than or equal to 10 mIU/mL Performed By: #### M 100.651, L100.0100, L3100.0300, BTSPAT, L3890.6006, L3890.6202, L3890.6301, L500.2500, L501.9985 #### [facility] [address] [place], [place], [address] Hepatitis C Antibodyon 09-07 Hepatitis C Ab Non-Reactive Normal Nonreactive [facility] Comment on above: Result Comment: Reac tive: Presumptive evidence of antibodies to HCV. Follow CDC recommendations for supplemental testing. Non-Reactive: Antibodies to HCV were not detected; does not exclude the possibility of exposure to HCV Reactive Results are presumptive evidence of antibodies to HCV. Follow CDC recommendations for supplemental testing. Order confirmation testing: HCV Quant by PCR testing - HCVPCR #[id number] Non Reactive: < 0.8 Equivocal: >/= 0.8 to < 1.0 Reactive: >/= 1.0 The CDC requires that a reactive/equivocal HCV antibody result be sent out for confirmation. HCV Quant by PCR testing. Performed By: #### M 100.651, L100.0100, L3100.0300, BTSPAT, L3890.6006, L3890.6202, L3890.6301, L500.2500, L501.9985 #### [facility] [address] [place], [place], [address] Magnesiumon 09-07-2024 Magnesium [Mass/Vol] 2.1 mg/dL Normal 1.5-2.2 [facility] Comment on above: Performed By: #### L 501.5200 ####[facility] [address] [place], [address] Orthopedic Visit Reporton Orthopedic Visit Report [facility] [address] [place] [address] OFFICE VISIT Date of Service: 09/07/24 MR#: [id number] Acct: [id number] Name: NARENDRA ARGUELLES Rep #: [id number] : 1950 Provider: Dr. Elia Villegas MD Age/Sex: 73/F Location[place] [facility] [place] Status: Signed Intake Vital Signs 08/10/24 09:34 [...] by me, Dr. Elia Villegas MD 09/07/24 1730. Part of today???s visit was documented by [...] was done by Dr. Rodolfo Moe at [facility]. She says that at the time of her surgery 20 years ago she was having dexterity issues in her hand, pain, issues swallowing. She had a recent MRI at in [place]. She has been taking pain meds which is not helpful. The patient has meloxicam (more content not included)... Normal [facility] Type AND Screen - PAT ONLYon 09-07-2024 Ab SCREEN GEL Negative Normal [facility] Comment on above: Order Comment: Surge ry Date: 09/18/24 Reason for Laboratory Test PREOP [id number] No N N S CERVICAL FUSION C3-4 C4-5 Performed By: #### M 100.651, L100.0100, L3100.0300, BTSPAT, L3890.6006, L3890.6202, L3890.6301, L500.2500, L501.9985 #### [facility] [address] [place], [address] XR FOOT RIGHT 3+ VIEWS (MG MOORE)on [...] TueAug 28, 2024 8:20:12 AM EDT Normal [facility] Comment on above: Order Comment: Injur y/Trauma or Illness?:Injury/Trauma How long have you had these symptoms (acute/chronic)?:Acute Reason for exam?:pain/injury History of cancer?:no Surgeries, chemotherapy, or radiation?:Right bunionectomy Type of Exam?:Initial Mechanism of injury?:blunt trauma Cerv Spine 4 or 5 Viewson Cerv Spine 4 or 5 Views [facility] Imaging Services [address] [place] [address] Cerv Spine 4 or 5 Views MR#: [id number] Acct: [id number] Name: NARENDRA ARGUELLES Rep #: [id number] : 1950 F 73 From: Gage Jackson PCP: Dr. Jasmine Mathias MD Status: DEP AMB Study: Cerv Spine 4 or 5 Views Date of Exam: 08/10/24 Exam# [id number] Ordering Dr: Carolyn Tabares PROCEDURE: CERV SPINE [...] Location: DMITRY CC: ANGELES Zheng; Dr. Jasmine Mathais MD [employer] Operator: Signed Normal [facility] Orthopedic Visit Reporton Orthopedic Visit Report [facility] [address] [place] [address] OFFICE VISIT Date of Service: 08/10/24 MR#: [id number] Acct: [id number] Name: NARENDRA ARGUELLES Rep #: [id number] : 1950 Provider: ANGELES Zheng Age/Sex: 73/F Location[place] [facility] [place] Status: Signed Intake Vital Signs 08/10/24 09:34 [...] in the past year?: Yes (February 2024) [facility] Social History Smoking Status: Never smoker HPI [...] was done by Dr. Rodolfo Moe at [facility]. She says that at the time of her surgery 20 years ago she was having dexterity issues in her hand, pain, issues swallowing. She had a recent MRI at in [place]. She has been taking pain meds which is not helpful. The patient has meloxicam which she takes daily and tramadol which she takes as needed. The patient will take Tylenol as needed oupu-ktx-vcnaeue and takes 1000 mg every 6 hours. [...] Romberg's positive (more content not included)... Normal [facility] Calcium.ionizedon 08-06-2024 Calcium.ionized (Bld) [Moles/Vol] 1.22 mmol/L Normal 1.1-1.33 [facility] Comment on above: Result Comment: The performance characteristics of ionized calcium tested in heparinized plasma or serum have been validated by the individual laboratory site where testing is performed. Testing on heparinized plasma or serum is not approved by the FDA; however, such approval is not necessary. Performed By: #### 1 994-3 ####SANJUANA Marcelino ([id number])[facility] ([facility])[address] [place] [address] Comprehensive metabolic 2000 panelon 08-06-2024 Albumin BCP dye [Mass/Vol] 4.3 g/dL Normal 3.4-5.0 [facility] Comment on above: Performed By: #### 2 4323-8 #### CHARLES COYNE ([id number]) [facility]) [address] [place] [address] ALP [Catalytic activity/Vol] 83 U/L Normal 33-136 [facility] Comment on above: Performed By: #### 2 4323-8 #### CHARLES COYNE ([id number]) [facility]) [address] [place] [address] ALT With P-5'-P [Catalytic activity/Vol] 19 U/L Normal 7-45 [facility] Comment on above: Result Comment: Lori ents treated with Sulfasalazine may generate falsely decreased results for ALT. Performed By: #### 2 4323-8 #### CHARLES COYNE (04402) [facility] ([facility]) [address] [place] [address] Anion gap [Moles/Vol] 10 mmol/L Normal 10-20 [facility] Comment on above: Performed By: #### 2 432-8 #### CHARLES COYNE ([id number]) [facility]) [address] [place] [address] AST With P-5'-P [Catalytic activity/Vol] 21 U/L Normal 9-39 [facility] Comment on above: Performed By: #### 2 432-8 #### CHARLES COYNE ([id number]) [facility]) [address] [place] [address] Bilirubin [Mass/Vol] 0.5 mg/dL Normal 0.0-1.2 [facility] Comment on above: Performed By: #### 2 4323-8 #### CHARLES COYNE ([id number]) [facility]) [address] [place] [address] Calcium [Mass/Vol] 9.5 mg/dL Normal 8.6-10.3 [facility] Comment on above: Performed By: #### 2 4323-8 #### CHARLES COYNE ([id number]) [facility]) [address] [place] [address] Chloride [Moles/Vol] 102 mmol/L Normal 98-107 [facility] Comment on above: Performed By: #### 2 4323-8 #### CHARLES COYNE (94021) [facility]) [facility] [place] [address] CO2 [Moles/Vol] 30 mmol/L Normal 21-32 [facility] Comment on above: Performed By: #### 2 4323-8 #### CHARLES COYNE ([id number]) [facility]) [address] [place] [address] Creatinine [Mass/Vol] 0.95 mg/dL Normal 0.50-1.05 [facility] Comment on above: Performed By: #### 2 432-8 #### CHARLES COYNE ([id number]) [facility]) [address] [place] [address] Glomerular filtration rate/1.73 sq M.predicted 64 mL/min/1.73m*2 Normal >60 [facility] Comment on above: Result Comment: Calc ulations of estimated GFR are performed using the 2020 CKD-EPI Study Refit equation without the race variable for the IDMS-Traceable creatinine methods. https://jasn.asnjournals.org/content//ASN.528782483 8 Performed By: #### 2 4323-8 #### CHARLES COYNE ([id number]) [facility]) [address] [place] [address] Glucose [Mass/Vol] 98 mg/dL Normal 74-99 [facility] Comment on above: Performed By: #### 2 4323-8 #### CHARLES COYNE ([id number]) [facility] ([facility]) [address] [place] [address]1047 Potassium [Moles/Vol] 4.4 mmol/L Normal 3.5-5.3 [facility] Comment on above: Performed By: #### 2 4323-8 #### CHARLES COYNE ([id number]) [facility] ([facility]) [address] [place] [address] 68927 Protein [Mass/Vol] 6.6 g/dL Normal 6.4-8.2 [facility] Comment on above: Performed By: #### 2 4323-8 #### CHARLES COYNE ([id number]) [facility] ([facility]) [address] [place] [address] Sodium [Moles/Vol] 138 mmol/L Normal 136-145 [facility] Comment on above: Performed By: #### 2 4323-8 #### CHARLES COYNE ([id number]) [facility] [address] [place] [address]1936 Urea nitrogen [Mass/Vol] 22 mg/dL Normal 6-23 [facility] Comment on above: Performed By: #### 2 4323-8 #### CHARLES COYNE ([id number]) [facility] ([facility]) [address] [place] [address] CBC (INCLUDES DIFF/PLT)on Basophils (Bld) [#/Vol] 0.039 10*3/uL Normal 0-200 [facility] Comment on above: Performed By: #### 6 399, 77436 #### [facility] [place] [address] Geophysical Observer: Eric Handley MD Basophils/100 WBC (Bld) 0.6 % Normal [facility] Comment on above: Performed By: #### 6 399, 41413 #### [facility] of [place] [address] Geophysical Observer: Eric Handley MD Eosinophils (Bld) [#/Vol] 0.241 10*3/uL Normal 15-500 [facility] Comment on above: Performed By: #### 6 399, 21698 #### [facility] [place] [address] Geophysical Observer: Eric Handley MD Eosinophils/100 WBC (Bld) 3.7 % Normal [facility] Comment on above: Performed By: #### 6 399, 02630 #### [facility] [place] [address] Geophysical Observer: Eric Handley MD Erythrocyte distribution width (RBC) [Ratio] 16.0 % High 11.0-15.0 [facility] Comment on above: Performed By: #### 6 399, 98623 #### [facility] of [place] [address] Geophysical Observer: Eric Handley MD Hematocrit (Bld) [Volume fraction] 35.2 % Normal 35.0-45.0 [facility] Comment on above: Performed By: #### 6 399, 66896 #### [facility] [place] [address] Geophysical Observer: Eric Handley MD Hemoglobin (Bld) [Mass/Vol] 11.0 g/dL Low 11.7-15.5 [facility] Comment on above: Performed By: #### 6 399, 07746 #### [facility] [place] [address] Geophysical Observer: Eric Handley MD Lymphocytes (Bld) [#/Vol] 1.411 10*3/uL Normal 850-3900 [facility] Comment on above: Performed By: #### 6 399, 91650 #### [facility] [place] [address] Geophysical Observer: Eric Handley MD Lymphocytes/100 WBC (Bld) 21.7 % Normal [facility] Comment on above: Performed By: #### 6 399, 28258 #### [facility] [place] [address] Geophysical Observer: Eric Handley MD MCH (RBC) [Entitic mass] 29.5 pg Normal 27.0-33.0 [facility] Comment on above: Performed By: #### 6 399, 01449 #### [facility] [place] [address] Geophysical Observer: Eric Handley MD MCHC (RBC) [Mass/Vol] 31.3 [...] clinical condition. Performed By: #### 6 399, 13778 #### [facility] [place] [address] Geophysical Observer: Eric Handley MD MCV (RBC) [Entitic vol] 94.4 fL Normal 80.0-100.0 [facility] Comment on above: Performed By: #### 6 399, 12060 #### [facility] [place] [address] Geophysical Observer: Eric Handley MD Monocytes (Bld) [#/Vol] 0.436 10*3/uL Normal 200-950 [facility] Comment on above: Performed By: #### 6 399, 44045 #### [facility] [place] [address] Geophysical Observer: Eric Handley MD Monocytes/100 WBC (Bld) 6.7 % Normal [facility] Comment on above: Performed By: #### 6 399, 34588 #### [facility] [place] [address] Geophysical Observer: Eric Handley MD Neutrophils (Bld) [#/Vol] 4.375 10*3/uL Normal 5736-4841 [facility] Comment on above: Performed By: #### 6 399, 49057 #### [facility] [place] [address] Geophysical Observer: Eric Handley MD Neutrophils/100 WBC (Bld) 67.3 % Normal [facility] Comment on above: Performed By: #### 6 399, 70933 #### [facility] [place] [address] Geophysical Observer: Eric Handley MD Platelet mean volume (Bld) [Entitic vol] 10.4 fL Normal 7.5-12.5 [facility] Comment on above: Performed By: #### 6 399, 02628 #### [facility] [place] [address] Geophysical Observer: Eric Handley MD Platelets (Bld) [#/Vol] 314 10*3/uL Normal 140-400 [facility] Comment on above: Performed By: #### 6 399, 70184 #### [facility] [place] [address] Geophysical Observer: Eric Handley MD RBC (Bld) [#/Vol] 3.73 10*6/uL Low 3.80-5.10 [facility] Comment on above: Performed By: #### 6 399, 77521 #### [facility] [place] [address] Geophysical Observer: Eric Handley MD WBC (Bld) [#/Vol] 6.5 10*3/uL Normal 3.8-10.8 [facility] Comment on above: Performed By: #### 6 399, 41737 #### [facility] [place] [address] Geophysical Observer: Eric Handley MD [facility] 07-26-2024 Albumin [Mass/Vol] 4.0 g/dL Normal 3.6-5.1 [facility] Comment on above: Order Comment: FASTI NG:YES FASTING: YES Performed By: #### 6 399, 88449 #### [facility] [place] [address] Geophysical Observer: Eric Handley MD Albumin/Globulin [Mass ratio] 1.8 {ratio} Normal 1.0-2.5 [facility] Comment on above: Order Comment: FASTI NG:YES FASTING: YES Performed By: #### 6 399, 27548 #### [facility] [place] [address] Geophysical Observer: Eric Handley MD ALP [Catalytic activity/Vol] 73 U/L Normal 37-153 [facility] Comment on above: Order Comment: FASTI NG:YES FASTING: YES Performed By: #### 6 399, 34718 #### [facility] [address], [address] [place] [address] Geophysical Observer: Eric Handley MD ALT [Catalytic activity/Vol] 15 U/L Normal 6-29 [facility] Comment on above: Order Comment: FASTI NG:YES FASTING: YES Performed By: #### 6 399, 79485 #### [facility] [address], [address] [place] [address] Geophysical Observer: Eric Handley MD AST [Catalytic activity/Vol] 21 U/L Normal 10-35 [facility] Comment on above: Order Comment: FASTI NG:YES FASTING: YES Performed By: #### 6 399, 35243 #### [facility] [address], [address] [place] [address] Geophysical Observer: Eric Handley MD Bilirubin [Mass/Vol] 0.4 mg/dL Normal 0.2-1.2 [facility] Comment on above: Order Comment: FASTI NG:YES FASTING: YES Performed By: #### 6 399, 97698 #### [facility] [place] [address] Geophysical Observer: Eric Handley MD BUN/CREATININE RATIO SEE NOTE: Normal 6-22 [facility] Comment on above: Order Comment: FASTI NG:YES FASTING: YES Result Comment: Not Reported: BUN and Creatinine are within reference range. Performed By: #### 6 399, 03030 #### [facility] [address], [address] [place] [address] Geophysical Observer: Eric Handley MD Calcium [Mass/Vol] 9.4 mg/dL Normal 8.6-10.4 [facility] Comment on above: Order Comment: FASTI NG:YES FASTING: YES Performed By: #### 6 399, 31803 #### [facility] [address], [address] [place] [address] Geophysical Observer: Eric Handley MD Chloride [Moles/Vol] 103 mmol/L Normal 98-110 [facility] Comment on above: Order Comment: FASTI NG:YES FASTING: YES Performed By: #### 6 399, 81899 #### [facility] [place] [address] Geophysical Observer: Eric Handley MD CO2 [Moles/Vol] 29 mmol/L Normal 20-32 [facility] Comment on above: Order Comment: FASTI NG:YES FASTING: YES Performed By: #### 6 399, 06379 #### [facility] [place] [address] Geophysical Observer: Eric Handley MD Creatinine [Mass/Vol] 0.90 mg/dL Normal 0.60-1.00 [facility] Comment on above: Order Comment: FASTI NG:YES FASTING: YES Performed By: #### 6 399, 90274 #### [facility] [place] [address] Geophysical Observer: Eric Handley MD GFR/1.73 sq M.predicted among non-blacks MDRD (S/P/Bld) [Vol rate/Area] 68 mL/min/{1.73_m2} Normal > OR = 60 [facility] Comment on above: Order Comment: FASTI NG:YES FASTING: YES Performed By: #### 6 399, 84631 #### [facility] [place] [address] Geophysical Observer: Eric Handley MD Globulin (S) [Mass/Vol] 2.2 g/dL Normal 1.9-3.7 [facility] Comment on above: Order Comment: FASTI NG:YES FASTING: YES Performed By: #### 6 399, 90345 #### [facility] [place] [address] Geophysical Observer: Eric Handley MD Glucose [Mass/Vol] 94 mg/dL Normal 65-99 [facility] Comment on above: Order Comment: FASTI NG:YES FASTING: YES Result Comment: Fasting reference interval Performed By: #### 6 399, 08514 #### [facility] [address], [address] [place] [address] Geophysical Observer: Eric Handley MD Potassium [Moles/Vol] 4.7 mmol/L Normal 3.5-5.3 [facility] Comment on above: Order Comment: FASTI NG:YES FASTING: YES Performed By: #### 6 399, 44266 #### [facility] [address], [address] [place] [address] Geophysical Observer: Eric Handley MD Protein [Mass/Vol] 6.2 g/dL Normal 6.1-8.1 [facility] Comment on above: Order Comment: FASTI NG:YES FASTING: YES Performed By: #### 6 399, 65441 #### [facility] [place] [address] Geophysical Observer: Eric Handley MD Sodium [Moles/Vol] 140 mmol/L Normal 135-146 [facility] Comment on above: Order Comment: FASTI NG:YES FASTING: YES Performed By: #### 6 399, 95752 #### [facility] [place] [address] Geophysical Observer: Eric Handley MD Urea nitrogen [Mass/Vol] 23 mg/dL Normal 7-25 [facility] Comment on above: Order Comment: FASTI NG:YES FASTING: YES Performed By: #### 6 399, 23246 #### [facility] [place] [address] Geophysical Observer: Eric Handley MD MR CERVICAL SPINE W AND WO I V CONTRASTon 07-17-2024 MR CERVICAL SPINE W AND WO IV CONTRAST Interpreted By: Damari Gibson, STUDY: MR CERVICAL SPINE W AND WO IV CONTRAST INDICATION: Signs/Symptoms:neck pain, right arm radicular pain COMPARISON: Cervical spine MRI 12/21/2022 ACCESSION NUMBER(S): [id number] ORDERING CLINICIAN: CELESTE MORAN TECHNIQUE: Multiplanar multisequence [...] Uncovertebral and facet hypertrophy results in moderate omoa-zpwqefs-nyhk-right foraminal stenosis. Spinal canal is patent. C6-7: Disc osteophyte complex with facet hypertrophy results in moderate gqno-njvwwwz-mqqr-right foraminal stenosis and mild narrowing of the [...] Damari Gibson 07/17/2024 4:36 PM Dictation workstation: [id number] [facility] MR Cervical spine WO [place] [...] Damari Gibson 07/17/2024 4:36 PM Dictation workstation: [id number] [facility] Interpreted By: Damari England, STUDY: MR CERVICAL SPINE W AND WO IV CONTRAST INDICATION: Signs/Symptoms:neck pain, right arm radicular pain COMPARISON: Cervical spine MRI 12/21/2022 ACCESSION NUMBER(S): [id number] ORDERING CLINICIAN: CELESTE MORAN TECHNIQUE: Multiplanar multisequence [...] Uncovertebral and facet hypertrophy results in moderate ecls-qcdkbss-nrwn-right foraminal stenosis. Spinal canal is patent. C6-7: Disc osteophyte complex with facet hypertrophy results in moderate huax-yadauyd-wcmr-right foraminal stenosis and mild narrowing of the spinal canal. C7-T1: No disc herniation spinal canal or neuroforaminal stenosis. [facility] Damari Gibson MD - 07/17/2024 Interpreted By: Damari Gibson, STUDY: MR CERVICAL SPINE W AND WO IV CONTRAST INDICATION: Signs/Symptoms:neck pain, right arm radicular pain COMPARISON: Cervical spine MRI 12/21/2022 ACCESSION NUMBER(S): [id number] ORDERING CLINICIAN: CELESTE MORAN TECHNIQUE: Multiplanar multisequence [...] Uncovertebral and facet hypertrophy results in moderate semy-xjzsigf-dkyo-right foraminal stenosis. Spinal canal is patent. C6-7: Disc osteophyte complex with facet hypertrophy results in moderate tamn-ysizcmx-dssj-right foraminal stenosis and mild narrowing of the [...] Damari Gibson 07/17/2024 4:36 PM Dictation workstation: [id number] [facility] Work Phone: Radiology Study observation (narrative) [facility] Work Phone: MR Cervical spine WO and W c ontrast IVOrdered By: Damari Gibson on 07-17-2024 [facility] Work Phone: POINT OF CARE ULTRASOUND NO CHARGEon 07-10-2024 POINT OF CARE ULTRASOUND NO CHARGE These images are not reportable by radiology and will not be interpreted by Radiologists. Normal [facility] US Abdomenon 07-10-2024 These images are not reportable by radiology and will not be interpreted by Radiologists. IMAGING XR CERVICAL SPINE COMPLETE 4 -5 VIEWSon 06-26-2024 XR CERVICAL SPINE COMPLETE 4-5 VIEWS Interpreted By: Karthikeyan Blount, STUDY: XR CERVICAL SPINE COMPLETE 4-5 VIEWS; ; 06/26/2024 1:14 pm INDICATION: Signs/Symptoms:pain. ,M25.511 Pain in right shoulder COMPARISON: 11/11/2022 ACCESSION NUMBER(S): [id number] ORDERING CLINICIAN: JASMINE MATHIAS FINDINGS: CERVICAL SPINE-AP, [...] Karthikeyan Blount 06/26/2024 3:06 PM Dictation workstation: [id number] [facility] XR Cervical spine 4 or 5 Vie wson 06-26-2024 Anterior cervical fu senthil at C5-6 with intact hardware. Worsening spondylolisthesis at C3-4 and further loss in height of the C3-4 disc space compared to 11/11/2022. Degenerative disc disease at C3-4, C4-5 and C6-7. Foraminal narrowing at C3-4 bilaterally. MACRO: None Signed by: Karthikeyan Blount 06/26/2024 3:06 PM Dictation workstation: [id number] [facility] Interpreted By: Karthikeyan Venegas, STUDY: XR CERVICAL SPINE COMPLETE 4-5 VIEWS; ; 06/26/2024 1:14 pm INDICATION: Signs/Symptoms:pain. ,M25.511 Pain in right shoulder COMPARISON: 11/11/2022 ACCESSION NUMBER(S): [id number] ORDERING CLINICIAN: JASMINE MATHIAS FINDINGS: CERVICAL SPINE-AP, [...] in right shoulder COMPARISON: 11/11/2022 ACCESSION NUMBER(S): [id number] ORDERING CLINICIAN: JASMINE MATHIAS FINDINGS: CERVICAL SPINE-AP, [...] Karthikeyan Blount 06/26/2024 3:06 PM Dictation workstation: [id number] [facility] Work Phone: Radiology Study observation (narrative) [facility] Work Phone: XR Cervical spine 4 or 5 Vie wsOrdered By: Karthikeyan Blount on 06-26-2024 [facility] Work Phone: XR SHOULDER RIGHT 2+ VIEWSon 06-26-2024 XR SHOULDER RIGHT 2+ VIEWS Interpreted By: Karthikeyan Blount, STUDY: XR SHOULDER RIGHT 2+ VIEWS; ; 06/26/2024 1:15 pm INDICATION: Signs/Symptoms:pain. ,M25.511 Pain in right shoulder COMPARISON: None. ACCESSION NUMBER(S): [id number] ORDERING CLINICIAN: JASMINE MATHIAS FINDINGS: RIGHT SHOULDER [...] Karthikeyan Blount 06/26/2024 2:49 PM Dictation workstation: [id number] [facility] XR Shoulder - right 2 Viewso n 06-26-2024 Calcific tendinitis. Moderate osteoarthrosis of the AC joint. MACRO: None Signed by: Karthikeyan Blount 06/26/2024 2:49 PM Dictation workstation: [id number] [facility] Interpreted By: Karthikeyan Venegas, STUDY: XR SHOULDER RIGHT 2+ VIEWS; ; 06/26/2024 1:15 pm INDICATION: Signs/Symptoms:pain. ,M25.511 Pain in right shoulder COMPARISON: None. ACCESSION NUMBER(S): [id number] ORDERING CLINICIAN: JASMINE MATHIAS FINDINGS: RIGHT SHOULDER [...] in right shoulder COMPARISON: None. ACCESSION NUMBER(S): [id number] ORDERING CLINICIAN: JASMINE MATHIAS FINDINGS: RIGHT SHOULDER [...] the AC joint. MACRO: None Signed by: Karthikeayn Blount 06/26/2024 2:49 PM Dictation workstation: [id number] [facility] Work Phone: Radiology Study observation (narrative) [facility] Work Phone: XR Shoulder - right 2 ViewsO rdered By: Karthikeyan Blount on 06-26-2024 [facility] Work Phone: [place] PAIN MANAGEMENTon 025 [place] PAIN MANAGEMENT These images are not reportable by radiology and will not be interpreted by Radiologists. Normal [facility] FL pain managementon 025 These images are not reportable by radiology and will not be interpreted by Radiologists. IMAGING Transforaminalon 06-06-2024 [facility] Work Phone: Radiology Study observation (narrative) [facility] Work Phone: BI MAMMO BILATERAL SCREENING TOMOSYNTHESISon 06-05-2024 BI MAMMO BILATERAL SCREENING TOMOSYNTHESIS Interpreted By: Ezequiel Erickson, STUDY: BI MAMMO BILATERAL SCREENING TOMOSYNTHESIS; 06/05/2024 8:45 am ACCESSION NUMBER(S): [id number] ORDERING CLINICIAN: JASMINE MATHIAS INDICATION: Screening. COMPARISON: [...] Ezequiel Erickson 06/05/2024 11:42 AM Dictation workstation: [id number] [facility] DBT Breast - bilateralon No mammographic evid ence of malignancy. BI-RADS CATEGORY: BI-RADS Category: 1 Negative. Recommendation: Annual Screening. Recommended Date: 1 Year. Laterality: Bilateral. MACRO: None Signed by: Ezequiel Erickson 06/05/2024 11:42 AM Dictation workstation: [id number] [facility]AL Interpreted By: Ezequiel Felix, STUDY: BI MAMMO BILATERAL SCREENING TOMOSYNTHESIS; 06/05/2024 8:45 am ACCESSION NUMBER(S): [id number] ORDERING CLINICIAN: JASMINE MATHIAS INDICATION: Screening. COMPARISON: [...] SCREENING TOMOSYNTHESIS; 06/05/2024 8:45 am ACCESSION NUMBER(S): [id number] ORDERING CLINICIAN: JASMINE MATHIAS INDICATION: Screening. COMPARISON: [...] Ezequiel Erickson 06/05/2024 11:42 AM Dictation workstation: [id number] [facility] Work Phone: Radiology Study observation (narrative) [facility] Work Phone: DBT Breast - bilateralOrdere d By: Ezequiel Erickson on 06-05-2024 [facility] Work Phone: ABN TEST REFUSALon 5 ABN TEST REFUSED 927 Normal [facility] Comment on above: Performed By: #### 6 399, 88102, 04054, 76214, 7600 #### [facility] [address], [address] [place] [id number] Geophysical Observer: Eric Handley MD JUAN Normal [facility] Comment on above: Result Comment: Be advised that your patient has indicated on the advance beneficiary notice their decision not to receive the following laboratory tests. As a result, the tests will not be performed. Performed By: #### 6 399, 34804, 23966, 42062, 7600 #### [facility] of [address], [address] [place] [address] Geophysical Observer: Eric Handley MD CBC (INCLUDES DIFF/PLT)on Basophils (Bld) [#/Vol] 0.032 10*3/uL Normal 0-200 [facility] Comment on above: Performed By: #### 6 399, 12960, 31011, 58018, 7600 #### [facility] of [address], [address] [place] [address] Geophysical Observer: rEic Handley MD Basophils/100 WBC (Bld) 0.9 % Normal [facility] Comment on above: Performed By: #### 6 399, 36858, 70028, 08299, 7600 #### [facility] of [address], [address] [place] [address] Geophysical Observer: Eric Handley MD Eosinophils (Bld) [#/Vol] 0.102 10*3/uL Normal 15-500 [facility] Comment on above: Performed By: #### 6 399, 91291, 78524, 41077, 7600 #### [facility] of [address], [address] [place] [address] Geophysical Observer: Eric Handley MD Eosinophils/100 WBC (Bld) 2.9 % Normal [facility] Comment on above: Performed By: #### 6 399, 29808, 39608, 18529, 7600 #### [facility] of [place] [address] Geophysical Observer: Eric Handley MD Erythrocyte distribution width (RBC) [Ratio] 15.7 % High 11.0-15.0 [facility] Comment on above: Performed By: #### 6 399, 87014, 51371, 09379, 7600 #### [facility] of [address], [address] [place] [address] Geophysical Observer: Eric Handley MD Hematocrit (Bld) [Volume fraction] 36.5 % Normal 35.0-45.0 [facility] Comment on above: Performed By: #### 6 399, 28571, 89354, 89581, 7600 #### [facility] of [address], [address] [place] [address] Geophysical Observer: Eric Handley MD Hemoglobin (Bld) [Mass/Vol] 11.4 g/dL Low 11.7-15.5 [facility] Comment on above: Performed By: #### 6 399, 76192, 50143, 21088, 7600 #### [facility] [place] [address] Geophysical Observer: Eric Handley MD Lymphocytes (Bld) [#/Vol] 0.889 10*3/uL Normal 850-3900 [facility] Comment on above: Performed By: #### 6 399, 10933, 58007, 92084, 7600 #### [facility] of [address], [address] [place] [address] Geophysical Observer: Eric Handley MD Lymphocytes/100 WBC (Bld) 25.4 % Normal [facility] Comment on above: Performed By: #### 6 399, 03024, 13237, 77564, 7600 #### [facility] [place] [address] Geophysical Observer: Eric Handley MD MCH (RBC) [Entitic mass] 29.8 pg Normal 27.0-33.0 [facility] Comment on above: Performed By: #### 6 399, 89989, 80387, 93070, 7600 #### [facility] [place] [address] Geophysical Observer: Eric Handley MD MCHC (RBC) [Mass/Vol] 31.2 [...] clinical condition. Performed By: #### 6 399, 49081, 13343, 09867, 7600 #### [facility] of [address], [address] [place] [address] Geophysical Observer: Eric Handley MD MCV (RBC) [Entitic vol] 95.5 fL Normal 80.0-100.0 [facility] Comment on above: Performed By: #### 6 399, 26418, 12990, 59064, 7600 #### [facility] of [address], [address] [place] [address] Geophysical Observer: Eric Handley MD Monocytes (Bld) [#/Vol] 0.564 10*3/uL Normal 200-950 [facility] Comment on above: Performed By: #### 6 399, 90572, 05580, 00612, 7600 #### [facility] of [address], [address] [place] [address] Geophysical Observer: Eric Handley MD Monocytes/100 WBC (Bld) 16.1 % Normal [facility] Comment on above: Performed By: #### 6 399, 51597, 94102, 21873, 7600 #### [facility] [place] [address] Geophysical Observer: Eric Handley MD Neutrophils (Bld) [#/Vol] 1.915 10*3/uL Normal 5749-1519 [facility] Comment on above: Performed By: #### 6 399, 43916, 40482, 33177, 7600 #### [facility] of [address], [address] [place] [address] Geophysical Observer: Eric Handley MD Neutrophils/100 WBC (Bld) 54.7 % Normal [facility] Comment on above: Performed By: #### 6 399, 80109, 16159, 77067, 7600 #### [facility] [place] [address] Geophysical Observer: Eric Handley MD Platelet mean volume (Bld) [Entitic vol] 11.5 fL Normal 7.5-12.5 [facility] Comment on above: Performed By: #### 6 399, 33801, 60344, 65920, 7600 #### [facility] of [address], [address] [place] [address] Geophysical Observer: Eric Handley MD Platelets (Bld) [#/Vol] 229 10*3/uL Normal 140-400 [facility] Comment on above: Performed By: #### 6 399, 71366, 14596, 87510, 7600 #### [facility] [place] [address] Geophysical Observer: Eric Handley MD RBC (Bld) [#/Vol] 3.82 10*6/uL Normal 3.80-5.10 [facility] Comment on above: Performed By: #### 6 399, 73303, 77998, 10192, 7600 #### [facility] of [address], [address] [place] [address] Geophysical Observer: Eric Handley MD WBC (Bld) [#/Vol] 3.5 10*3/uL Low 3.8-10.8 [facility] Comment on above: Performed By: #### 6 399, 70773, 39914, 63310, 7600 #### [facility] [place] [address] Geophysical Observer: Eric Handley MD COMPREHENSIVE METABOLIC PANE L W/ANION GAPon 05-10-2024 ALBUMIN Normal [facility] Comment on above: Performed By: #### 6 399, 06248, 77629, 96744, 7600 #### [facility] [place] [address] Geophysical Observer: Eric Handley MD ALKALINE PHOSPHATASE Normal [facility] Comment on above: Performed By: #### 6 399, 96464, 00878, 55464, 7600 #### [facility] of [address] Geophysical Observer: Eric Handley MD ALT Normal [facility] Comment on above: Performed By: #### 6 399, 71304, 17146, 58460, 7600 #### [facility] of [facility] [address], [address] [place] [address] Geophysical Observer: Eric Handley MD AST Normal [facility] Comment on above: Performed By: #### 6 399, 20353, 81363, 55008, 7600 #### [facility] [address], [address] [place] [address] Geophysical Observer: Eric Handley MD BILIRUBIN, TOTAL Normal [facility] Comment on above: Performed By: #### 6 399, 84842, 31261, 56854, 7600 #### [facility] [address], [address] [place] [address] Geophysical Observer: Eric Handley MD CALCIUM Normal [facility] Comment on above: Performed By: #### 6 399, 27168, 66992, 11567, 7600 #### [facility] [address], [address] [place] [address] Geophysical Observer: Eric Handley MD CARBON DIOXIDE Normal [facility] Comment on above: Performed By: #### 6 399, 63070, 10282, 96969, 7600 #### [facility] [address], [address] [place] [address] Geophysical Observer: Eric Handley MD CHLORIDE Normal [facility] Comment on above: Performed By: #### 6 399, 33462, 35129, 28454, 7600 #### [facility] [address], [address] [place] [address] Geophysical Observer: Eric Handley MD CREATININE Normal [facility] Comment on above: Performed By: #### 6 399, 73692, 53579, 54844, 7600 #### [facility] [address], [address] [place] [address] Geophysical Observer: Eric Handley MD EGFR Normal [facility] Comment on above: Performed By: #### 6 399, 99390, 93607, 01678, 7600 #### [facility] of [address], [address] [place] [address] Geophysical Observer: Eric Handley MD ELECTROLYTE BALANCE Normal [facility] Comment on above: Performed By: #### 6 399, 52366, 49176, 60200, 7600 #### [facility] of [address], [address] [place] [address] Geophysical Observer: Eric Handley MD GLUCOSE Normal [facility] Comment on above: Performed By: #### 6 399, 99541, 15105, 70102, 7600 #### [facility] of [address], [address] [place] [address] Geophysical Observer: Eric Handley MD POTASSIUM Normal [facility] Comment on above: Performed By: #### 6 399, 31894, 62172, 16933, 7600 #### [facility] of [address], [address] [place] [address] Geophysical Observer: Eric Handley MD PROTEIN, TOTAL Normal [facility] Comment on above: Performed By: #### 6 399, 35793, 66122, 38868, 7600 #### [facility] of [address], [address] [place] [address] Geophysical Observer: Eric Handley MD SODIUM Normal [facility] Comment on above: Performed By: #### 6 399, 58645, 33146, 01069, 7600 #### [facility] of [address], [address] [place] [address] Geophysical Observer: Eric Handley MD UREA NITROGEN (BUN) Normal [facility] Comment on above: Performed By: #### 6 399, 52593, 95862, 05799, 7600 #### [facility] of [address] , [address] [place] [address] Geophysical Observer: Eric Handley MD LIPID PANEL, [facility] 04-28 CHOL/HDLC RATIO Normal [facility] Comment on above: Order Comment: FASTI NG:YES FASTING: YES Performed By: #### 6 399, 45187, 44440, 56545, 7600 #### [facility] [address], [address] [place] [address] Geophysical Observer: Eric Handley MD CHOLESTEROL, TOTAL Normal [facility] Comment on above: Order Comment: FASTI NG:YES FASTING: YES Performed By: #### 6 399, 83824, 56005, 94128, 7600 #### [facility] [address], [address] [place] [address] Geophysical Observer: Eric Handley MD HDL CHOLESTEROL Normal [facility] Comment on above: Order Comment: FASTI NG:YES FASTING: YES Performed By: #### 6 399, 06442, 89135, 34096, 7600 #### [facility] [address], [address] [place] [address] Geophysical Observer: Eric Handley MD LDL-CHOLESTEROL Normal [facility] Comment on above: Order Comment: FASTI NG:YES FASTING: YES Performed By: #### 6 399, 95646, 42064, 77094, 7600 #### [facility] [address], [address] [place] [address] Geophysical Observer: Eric Handley MD NON HDL CHOLESTEROL Normal [facility] Comment on above: Order Comment: FASTI NG:YES FASTING: YES Performed By: #### 6 399, 58394, 58846, 26253, 7600 #### [facility] [address], [address] [place] [address] Geophysical Observer: Eric Handley MD TRIGLYCERIDES Normal [facility] Comment on above: Order Comment: FASTI NG:YES FASTING: YES Performed By: #### 6 399, 02981, 05695, 82063, 7600 #### [facility] [address], [address] [place] [address] Geophysical Observer: Eric Handley MD TSH W/REFLEX TO FT4on 2024 TSH W/REFLEX TO FT4 Normal [facility] Comment on above: Performed By: #### 6 399, 58666, 38603, 56223, 7600 #### [facility] [address], [address] [place] [address] Geophysical Observer: Eric Handley MD VITAMIN D,25-OH,TOTAL,IAon 0 05-10-2024 VITAMIN D,25-OH,TOTAL,IA Normal [facility] Comment on above: Performed By: #### 6 399, 37211, 50681, 89534, 7600 #### [facility] of [address], [address] [place] [address] Geophysical Observer: Eric Handley MD POCT SARS-COV-2/FLU/RSV PCR SYMPTOMATIC manually resultedon 05-07-2024 FLUAV RNA NORA+probe Ql (Resp) Not detected Not Detected [facility] Work Phone: FLUBV RNA NORA+probe Ql (Resp) Not detected Not Detected [facility] Work Phone: RSV RNA NORA+probe Ql (Resp) Not detected Not Detected [facility] Work Phone: SARS-CoV-2 (COVID-19) RNA NORA+probe Ql (Resp) Not detected Not Detected [facility] Work Phone: [facility] Work Phone: CBC (INCLUDES DIFF/PLT)on Basophils (Bld) [#/Vol] 0.029 10*3/uL Normal 0-200 [facility] Comment on above: Performed By: #### 1 0231, 2099 #### [facility] of [address], [address] [place] [address] Geophysical Observer: Eric Handley MD Basophils/100 WBC (Bld) 0.7 % Normal [facility] Comment on above: Performed By: #### 1 0231, 5399 #### [facility] [address], [address] [place] [address] Geophysical Observer: Eric Handley MD Eosinophils (Bld) [#/Vol] 0.18 10*3/uL Normal 15-500 [facility] Comment on above: Performed By: #### 1 0231, 6399 #### [facility] of [place] [address] Geophysical Observer: Eric Handley MD Eosinophils/100 WBC (Bld) 4.4 % Normal [facility] Comment on above: Performed By: #### 1 023, 6399 #### [facility] of [place] [address] Geophysical Observer: Eric Handley MD Erythrocyte distribution width (RBC) [Ratio] 15.5 % High 11.0-15.0 [facility] Comment on above: Performed By: #### 1 0231, 6399 #### [facility] of [place] [address] Geophysical Observer: Eric Handley MD Hematocrit (Bld) [Volume fraction] 33.2 % Low 35.0-45.0 [facility] Comment on above: Performed By: #### 1 023, 6399 #### [facility] [place] [address] Geophysical Observer: Eric Handley MD Hemoglobin (Bld) [Mass/Vol] 10.7 g/dL Low 11.7-15.5 [facility] Comment on above: Performed By: #### 1 230, 6399 #### [facility] of [place] [address] Geophysical Observer: Eirc Handley MD Lymphocytes (Bld) [#/Vol] 1.021 10*3/uL Normal 850-3900 [facility] Comment on above: Performed By: #### 1 0231, 6399 #### [facility] [place] [address] Geophysical Observer: Eric Handley MD Lymphocytes/100 WBC (Bld) 24.9 % Normal [facility] Comment on above: Performed By: #### 1 023, 6399 #### [facility] [place] [address] Geophysical Observer: Eric Handley MD MCH (RBC) [Entitic mass] 30.3 pg Normal 27.0-33.0 [facility] Comment on above: Performed By: #### 1 0231, 6399 #### [facility] [place] [address] Geophysical Observer: Eric Handley MD MCHC (RBC) [Mass/Vol] 32.2 [...] #### 1 0231, 6399 #### [facility] [place] [address] Geophysical Observer: Eric Handley MD MCV (RBC) [Entitic vol] 94.1 fL Normal 80.0-100.0 [facility] Comment on above: Performed By: #### 1 0231, 6399 #### [facility] [place] [address] Geophysical Observer: Eric Handley MD Monocytes (Bld) [#/Vol] 0.381 10*3/uL Normal 200-950 [facility] Comment on above: Performed By: #### 1 0231, 6399 #### [facility] [place] [address] Geophysical Observer: Eric Handley MD Monocytes/100 WBC (Bld) 9.3 % Normal [facility] Comment on above: Performed By: #### 1 0231, 6399 #### [facility] [place] [address] Geophysical Observer: Eric Handley MD Neutrophils (Bld) [#/Vol] 2.489 10*3/uL Normal 4169-9289 [facility] Comment on above: Performed By: #### 1 0231, 6399 #### [facility] of [address], [address] [place] [address] Geophysical Observer: Eric Handley MD Neutrophils/100 WBC (Bld) 60.7 % Normal [facility] Comment on above: Performed By: #### 1 0231, 6399 #### [facility] [place] [address] Geophysical Observer: Eric Handley MD Platelet mean volume (Bld) [Entitic vol] 12.3 fL Normal 7.5-12.5 [facility] Comment on above: Performed By: #### 1 0231, 6399 #### [facility] [place] [address] Geophysical Observer: Eric Handley MD Platelets (Bld) [#/Vol] 222 10*3/uL Normal 140-400 [facility] Comment on above: Performed By: #### 1 0231, 6399 #### [facility] [place] [address] Geophysical Observer: Eric Handley MD RBC (Bld) [#/Vol] 3.53 10*6/uL Low 3.80-5.10 [facility] Comment on above: Performed By: #### 1 0231, 6399 #### [facility] [place] [address] Geophysical Observer: Eric Handley MD WBC (Bld) [#/Vol] 4.1 10*3/uL Normal 3.8-10.8 [facility] Comment on above: Performed By: #### 1 0231, 6399 #### [facility] [place] [address] Geophysical Observer: Eric Handley MD [facility] 05-04-2024 Albumin [Mass/Vol] 4.0 g/dL Normal 3.6-5.1 [facility] Comment on above: Performed By: #### 1 0231, 6399 #### [facility] of [address], [address] [place] [address] Geophysical Observer: Eric Handlye MD Albumin/Globulin [Mass ratio] 2.0 {ratio} Normal 1.0-2.5 [facility] Comment on above: Performed By: #### 1 0231, 6399 #### [facility] of [address], [address] [place] [address] Geophysical Observer: Eric Handley MD ALP [Catalytic activity/Vol] 82 U/L Normal 37-153 [facility] Comment on above: Performed By: #### 1 0231, 6399 #### [facility] of [address], [address] [place] [address] Geophysical Observer: Eric Handley MD ALT [Catalytic activity/Vol] 15 U/L Normal 6-29 [facility] Comment on above: Performed By: #### 1 0231, 6399 #### [facility] of [address], [address] [place] [address] Geophysical Observer: Eric Handley MD AST [Catalytic activity/Vol] 29 U/L Normal 10-35 [facility] Comment on above: Performed By: #### 1 0231, 6399 #### [facility] of [address], [address] [place] [address] Geophysical Observer: Eric Handley MD Bilirubin [Mass/Vol] 0.5 mg/dL Normal 0.2-1.2 [facility] Comment on above: Performed By: #### 1 0231, 6399 #### [facility] of [address], [address] [place] [address] Geophysical Observer: Eric Handley MD BUN/CREATININE RATIO SEE NOTE: Normal 6-22 [facility] Comment on above: Result Comment: Not Reported: BUN and Creatinine are within reference range. Performed By: #### 1 0231, 6399 #### [facility] of [address], [address] [place] [address] Geophysical Observer: Eric Handley MD Calcium [Mass/Vol] 9.1 mg/dL Normal 8.6-10.4 [facility] Comment on above: Performed By: #### 1 0231, 6399 #### [facility] [place] [address] Geophysical Observer: Eric Handley MD Chloride [Moles/Vol] 106 mmol/L Normal 98-110 [facility] Comment on above: Performed By: #### 1 230, 6399 #### [facility] [place] [address] Geophysical Observer: Eric Handley MD CO2 [Moles/Vol] 29 mmol/L Normal 20-32 [facility] Comment on above: Performed By: #### 1 023, 6399 #### [facility] [place] [address] Geophysical Observer: Eric Handley MD Creatinine [Mass/Vol] 0.77 mg/dL Normal 0.60-1.00 [facility] Comment on above: Performed By: #### 1 023, 6399 #### [facility] [place] [address] Geophysical Observer: Eric Handley MD GFR/1.73 sq M.predicted among non-blacks MDRD (S/P/Bld) [Vol rate/Area] 82 mL/min/{1.73_m2} Normal > OR = 60 [facility] Comment on above: Performed By: #### 1 230, 6399 #### [facility] of [place] [address] Geophysical Observer: Eric Handley MD Globulin (S) [Mass/Vol] 2.0 g/dL Normal 1.9-3.7 [facility] Comment on above: Performed By: #### 1 0231, 6399 #### [facility] of [place] [address] Geophysical Observer: Eric Handley MD Glucose [Mass/Vol] 98 mg/dL Normal 65-99 [facility] Comment on above: Result Comment: Fasting reference interval Performed By: #### 1 0231, 6399 #### [facility] [address], [address] [place] [address] Geophysical Observer: Eric Handley MD Potassium [Moles/Vol] 4.6 mmol/L Normal 3.5-5.3 [facility] Comment on above: Performed By: #### 1 0231, 6399 #### [facility] [place] [address] Geophysical Observer: Eric Handley MD Protein [Mass/Vol] 6.0 g/dL Low 6.1-8.1 [facility] Comment on above: Performed By: #### 1 0231, 6399 #### [facility] [place] [address] Geophysical Observer: Eric Handley MD Sodium [Moles/Vol] 141 mmol/L Normal 135-146 [facility] Comment on above: Performed By: #### 1 0231, 6399 #### [facility] [place] [address] Geophysical Observer: Eric Handley MD Urea nitrogen [Mass/Vol] 24 mg/dL Normal 7-25 [facility] Comment on above: Performed By: #### 1 0231, 6399 #### [facility] [place] [address] Geophysical Observer: Eric Handley MD XR HIP RIGHT 2-3 [...] dislocation identified. No evidence of hardware loosening. [employer] Workstation ID: [id number] Dictated by: DOMINICK CHUNG on TueApr 05, 2024 9:37:16 AM EST Transcribed by: GIL PARKINSON on TueApr 05, 2024 9:59:05 AM EST Finalized by: DOMINICK CHUNG on TueApr 05, 2024 6:54:33 PM EST Normal [facility] Comment on above: Order Comment: Injur [...] TueApr 05, 2024 8:10:29 AM EST Normal [facility] Comment on above: Order Comment: Injur [...] Basophils (Bld) [#/Vol] 0.03 x10*3/uL Normal 0.00-0.10 [facility] Comment on above: Performed By: #### 2 4323-8 #### CHARLES COYNE ([id number]) [facility]) [address] [place] [address] 16819 Basophils/100 WBC (Bld) 0.6 % Normal 0.0-2.0 [facility] Comment on above: Performed By: #### 2 4323-8 #### CHARLES COYNE ([id number]) [facility] [address] [place] [address] 21361 Eosinophils (Bld) [#/Vol] 0.21 x10*3/uL Normal 0.00-0.40 [facility] Comment on above: Performed By: #### 2 4323-8 #### CHARLES COYNE ([id number]) [facility]) [address] [place] [address] 43191 Eosinophils/100 WBC (Bld) 4.0 % Normal 0.0-6.0 [facility] Comment on above: Performed By: #### 2 432-8 #### CHARLES COYNE ([id number]) [facility] [address] [place] [address] 60548 Erythrocyte distribution width (RBC) [Ratio] 15.7 % High 11.5-14.5 [facility] Comment on above: Performed By: #### 2 4322-8 #### CHARLES COYNE ([id number]) [facility] [address] [place] [address] 13540 Hematocrit (Bld) [Volume fraction] 33.5 % Low 36.0-46.0 [facility] Comment on above: Performed By: #### 2 432-8 #### CHARLES COYNE ([id number]) [facility] [address] [place] [address] 88877 Hemoglobin (Bld) [Mass/Vol] 10.6 g/dL Low 12.0-16.0 [facility] Comment on above: Performed By: #### 2 432-8 #### CHARLES COYNE ([id number]) [facility]) [address] [place] [address] 57870 Immature granulocytes (Bld) [#/Vol] 0.02 x10*3/uL Normal 0.00-0.50 [facility] Comment on above: Performed By: #### 2 4323-8 #### CHARLES COYNE ([id number]) [facility] [address] [place] [address] 23300 Immature granulocytes/100 WBC (Bld) 0.4 % Normal 0.0-0.9 [facility] Comment on above: Result Comment: Karla ture Granulocyte Count (IG) includes promyelocytes, myelocytes and metamyelocytes but does not include bands. Percent differential counts (%) should be interpreted in the context of the absolute cell counts (cells/UL). Performed By: #### 2 4323-8 #### CHARLES COYNE ([id number]) [facility] [address] [place] [address] 64956 Lymphocytes (Bld) [#/Vol] 1.26 x10*3/uL Normal 0.80-3.00 [facility] Comment on above: Performed By: #### 2 4323-8 #### CHARLES COYNE ([id number]) [facility] [address] [place] [address] 08970 Lymphocytes/100 WBC (Bld) 23.8 % Normal 13.0-44.0 [facility] Comment on above: Performed By: #### 2 432-8 #### CHARLES COYNE ([id number]) [facility] [address] [place] [address] 72864 MCH (RBC) [Entitic mass] 30.5 pg Normal 26.0-34.0 [facility] Comment on above: Performed By: #### 2 432-8 #### CHARLES COYNE ([id number]) [facility] [address] [place] [address] 65991 MCHC (RBC) [Mass/Vol] 31.6 g/dL Low 32.0-36.0 [facility] Comment on above: Performed By: #### 2 432-8 #### CHARLES COYNE ([id number]) [facility] [address] [place] [address] 12907 MCV (RBC) [Entitic vol] 97 fL Normal 80-100 [facility] Comment on above: Performed By: #### 2 4323-8 #### CHARLES COYNE ([id number]) [facility] [address] [place] [address] 02437 Monocytes (Bld) [#/Vol] 0.53 x10*3/uL Normal 0.05-0.80 [facility] Comment on above: Performed By: #### 2 4323-8 #### CHARLES COYNE ([id number]) [facility] [address] [place] [address] 49443 Monocytes/100 WBC (Bld) 10.0 % Normal 2.0-10.0 [facility] Comment on above: Performed By: #### 2 4323-8 #### CHARLES COYNE ([id number]) [facility] [address] [place] [address] 02463 Neutrophils (Bld) [#/Vol] 3.25 x10*3/uL Normal 1.60-5.50 [facility] Comment on above: Result Comment: Perc ent differential counts (%) should be interpreted in the context of the absolute cell counts (cells/uL). Performed By: #### 2 432-8 #### CHARLES COYNE ([id number]) [facility] [address] [place] [address] 17441 Neutrophils/100 WBC (Bld) 61.2 % Normal 40.0-80.0 [facility] Comment on above: Performed By: #### 2 432-8 #### CHARLES COYNE ([id number]) [facility]) [address] [place] [address] 96860 Nucleated RBC/100 WBC (Bld) [Ratio] 0.0 /100 WBCs Normal 0.0-0.0 [facility] Comment on above: Performed By: #### 2 4323-8 #### CHARLES COYNE ([id number]) [facility]) [address] [place] [address] 15504 Platelets (Bld) [#/Vol] 230 x10*3/uL Normal 150-450 [facility] Comment on above: Performed By: #### 2 4323-8 #### CHARLES COYNE ([id number]) [facility] [address] [place] [address] 76387 RBC (Bld) [#/Vol] 3.47 x10*6/uL Low 4.00-5.20 [facility] Comment on above: Performed By: #### 2 4323-8 #### CHARLES COYNE ([id number]) [facility] [address] [place] [address] 50185 WBC (Bld) [#/Vol] 5.3 x10*3/uL Normal 4.4-11.3 [place] Comment on above: Performed By: #### 2 4323-8 #### CHARLES COYNE ([id number]) [facility]) [facility] [place] [address] Comprehensive metabolic 2000 panelon 02-21-2024 Albumin BCP dye [Mass/Vol] 3.8 g/dL Normal 3.4-5.0 [facility] Comment on above: Performed By: #### 2 4323-8 #### CHARLES COYNE ([id number]) [facility] [address] [place] [address] 46264 ALP [Catalytic activity/Vol] 71 U/L Normal 33-136 [facility] Comment on above: Performed By: #### 2 4323-8 #### CHARLES COYNE ([id number]) [facility] [address] [place] [address] 07725 ALT With P-5'-P [Catalytic activity/Vol] 21 U/L Normal 7-45 [facility] Comment on above: Result Comment: Lori ents treated with Sulfasalazine may generate falsely decreased results for ALT. Performed By: #### 2 4323-8 #### CHARLES COYNE ([id number]) [facility]) [address] [place] [address] 73647 Anion gap [Moles/Vol] 9 mmol/L Low 10-20 [facility] Comment on above: Performed By: #### 2 4323-8 #### CHARLES COYNE ([id number]) [facility]) [address] [place] [address] 32126 AST With P-5'-P [Catalytic activity/Vol] 30 U/L Normal 9-39 [facility] Comment on above: Performed By: #### 2 4323-8 #### CHARLES COYNE ([id number]) [facility]) [address] [place] [address] 24623 Bilirubin [Mass/Vol] 0.5 mg/dL Normal 0.0-1.2 [facility] Comment on above: Performed By: #### 2 4323-8 #### CHARLES COYNE ([id number]) [facility] [address] [place] [address] 44177 Calcium [Mass/Vol] 9.6 mg/dL Normal 8.6-10.3 [facility] Comment on above: Performed By: #### 2 4323-8 #### CHARLES COYNE ([id number]) [facility]) [address] [place] [address] 04137 Chloride [Moles/Vol] 105 mmol/L Normal 98-107 [facility] Comment on above: Performed By: #### 2 4323-8 #### CHARLES COYNE ([id number]) [facility] [address] [place] [address] 64111 CO2 [Moles/Vol] 31 mmol/L Normal 21-32 [facility] Comment on above: Performed By: #### 2 432-8 #### CHARLES COYNE ([id number]) [facility] [address] [place] [address] 20490 Creatinine [Mass/Vol] 1.00 mg/dL Normal 0.50-1.05 [facility] Comment on above: Performed By: #### 2 432-8 #### CHARLES COYNE ([id number]) [facility]) [address] [place] [address] 21740 Glomerular filtration rate/1.73 sq M.predicted 60 mL/min/1.73m*2 Low >60 [facility] Comment on above: Result Comment: Calc ulations of estimated GFR are performed using the 2020 CKD-EPI Study Refit equation without the race variable for the IDMS-Traceable creatinine methods. https://jasn.asnjournals.org/content/early//ASN.344944273 8 Performed By: #### 2 4323-8 #### CHARLES COYNE ([id number]) [facility]) [address] [place] [address] 37905 Glucose [Mass/Vol] 96 mg/dL Normal 74-99 [facility] Comment on above: Performed By: #### 2 4323-8 #### CHARLES COYNE ([id number]) [facility] [address] [place] [address] 66808 Potassium [Moles/Vol] 4.7 mmol/L Normal 3.5-5.3 [facility] Comment on above: Performed By: #### 2 4323-8 #### CHARLES COYNE ([id number]) [facility] [address] [place] [address] 56102 Protein [Mass/Vol] 5.7 g/dL Low 6.4-8.2 [facility] Comment on above: Performed By: #### 2 4323-8 #### CHARLES COYNE ([id number]) [facility] [address] [place] [address] 12734 Sodium [Moles/Vol] 140 mmol/L Normal 136-145 [facility] Comment on above: Performed By: #### 2 4323-8 #### CHARLES COYNE ([id number]) [facility]) [address] [place] [address] 84994 Urea nitrogen [Mass/Vol] 21 mg/dL Normal 6-23 [facility] Comment on above: Performed By: #### 2 4323-8 #### CHARLES COYNE ([id number]) [facility] [address] [place] [address] 15130 DEXA BONE DENSITYon 02-13-20 24 DEXA BONE DENSITY Interpreted By: Cal Mandujano, STUDY: DEXA BONE [id number]/13/2024 9:29 am INDICATION: Signs/Symptoms:r/o senile osteoporosis. The patient is a 73 y/o year old F. COMPARISON: DEXA scan dated 01/27/2022 ACCESSION NUMBER(S): [id number] ORDERING CLINICIAN: BRYAN LUZ TECHNIQUE: DEXA BONE [...] below -2.5 This exam was performed at [facility] on a [place] Dexa Unit. IMPRESSION: DEXA: According to World Health Organization criteria, classification is osteoporosis. Followup recommended in two years or sooner as clinically warranted. All images and detailed analysis are available on the Radiology PACS. MACRO: None Signed by: Cal Turner 02/13/2024 10:56 AM Dictation workstation: [id number] [facility] Comment on above: Order Comment: No VF A needed DXA Skeletal system Views fo r bone densityon 02-13-2024 DEXA: According to W or[place] Health Organization criteria, classification is osteoporosis. Followup recommended in two years or sooner as clinically warranted. All images and detailed analysis are available on the Radiology PACS. MACRO: None Signed by: Cal Turner 02/13/2024 10:56 AM Dictation workstation: [id number] MMODAL Interpreted By: Cal Mandujano, STUDY: DEXA BONE AUNGSDR2502/13/2024 9:29 am INDICATION: Signs/Symptoms:r/o senile osteoporosis. The patient is a 73 y/o year old F. COMPARISON: DEXA scan dated 01/27/2022 ACCESSION NUMBER(S): [id number] ORDERING CLINICIAN: BRYAN LUZ TECHNIQUE: DEXA BONE [...] below -2.5 This exam was performed at [facility] on a [place] Dexa Unit. [facility] Cal Turner M D - 02/13/2024 Interpreted By: Cal Turner, STUDY: DEXA BONE [id number]/13/2024 9:29 am INDICATION: Signs/Symptoms:r/o senile osteoporosis. The patient is a 73 y/o year old F. COMPARISON: DEXA scan dated 01/27/2022 ACCESSION NUMBER(S): [id number] ORDERING CLINICIAN: BRYAN LUZ TECHNIQUE: DEXA BONE [...] below -2.5 This exam was performed at [facility] on a [place] Dexa Unit. IMPRESSION: DEXA: According to World Health Organization criteria, classification is osteoporosis. Followup recommended in two years or sooner as clinically warranted. All images and detailed analysis are available on the Radiology PACS. MACRO: None Signed by: Cal Turner 02/13/2024 10:56 AM Dictation workstation: [id number] [facility] Work Phone: Radiology Study observation (narrative) [facility] Work Phone: DXA Skeletal system Views fo r bone densityOrdered By: Cal Turner on 02-13-2024 [facility] Work Phone: CT HIP RIGHT WO IV CONTRASTo n 02-02-2024 CT HIP RIGHT WO IV CONTRAST Interpreted By: Quincy Flood, STUDY: CT HIP RIGHT WO IV CONTRAST; CT PELVIS WO IV CONTRAST; 02/02/2024 3:49 pm; 02/02/2024 3:50 pm INDICATION: Signs/Symptoms:pain. COMPARISON: Radiographs dated 12/28/2023 ACCESSION NUMBER(S): [id number]; [id number] ORDERING CLINICIAN: JASMINE MATHIAS TECHNIQUE: CT imaging [...] Quincy Flood 02/03/2024 10:18 AM Dictation workstation: [id number] [facility] CT PELVIS WO IV CONTRASTon 1 04-03-2023 CT PELVIS WO IV CONTRAST Interpreted By: Quincy Flood, STUDY: CT HIP RIGHT WO IV CONTRAST; CT PELVIS WO IV CONTRAST; 02/02/2024 3:49 pm; 02/02/2024 3:50 pm INDICATION: Signs/Symptoms:pain. COMPARISON: Radiographs dated 12/28/2023 ACCESSION NUMBER(S): [id number]; [id number] ORDERING CLINICIAN: JASMINE MATHIAS TECHNIQUE: CT imaging [...] Quincy Flood 02/03/2024 10:18 AM Dictation workstation: [id number] [facility] XR Ankle Viewson 02-01-2024 As above without oss eous injury evident. Please see ordering clinician notes for any quantitative measurement of spinal curvature. Signed by: Cal Turner 02/01/2024 12:11 PM Dictation workstation: [id number] MMODAL Interpreted By: Cal Mandujano, STUDY: XR EOS FULL BODY EAM THROUGH ANKLE 2 VIEWS; 02/01/2024 11:34 am INDICATION: Signs/Symptoms:examine scoliosis (surgical planning). COMPARISON: None. ACCESSION NUMBER(S): [id number] ORDERING CLINICIAN: BRYAN LUZ TECHNIQUE: AP and [...] degenerative changes seen of the left hip. Qawc-gb-rltjqloy degenerative changes seen of the right knee as visualized. There is a left knee arthroplasty. Lungs are clear. Bowel-gas pattern is nonobstructive. [facility] MMODAL Cal Turner M D - 02/01/2024 Interpreted By: Cal Turner, STUDY: XR EOS FULL BODY EAM THROUGH ANKLE 2 VIEWS; 02/01/2024 11:34 am INDICATION: Signs/Symptoms:examine scoliosis (surgical planning). COMPARISON: None. ACCESSION NUMBER(S): [id number] ORDERING CLINICIAN: BRYAN LUZ TECHNIQUE: AP and [...] degenerative changes seen of the left hip. Oqpc-gx-zpmzmnvx degenerative changes seen of the right knee as visualized. There is a left knee arthroplasty. Lungs are clear. Bowel-gas pattern is nonobstructive. IMPRESSION: As above without osseous injury evident. Please see ordering clinician notes for any quantitative measurement of spinal curvature. Signed by: Cal Turner 02/01/2024 12:11 PM Dictation workstation: [id number] [facility] Work Phone: Radiology Study observation (narrative) [facility] Work Phone: XR Ankle ViewsOrdered By: Peterson Turner on 02-01-2024 [facility] Work Phone: XR EOS FULL BODY EAM THROUGH ANKLE 2 VIEWSon 02-01-2024 XR EOS FULL BODY EAM THROUGH ANKLE 2 VIEWS Interpreted By: Cal Turner, STUDY: XR EOS FULL BODY EAM THROUGH ANKLE 2 VIEWS; 02/01/2024 11:34 am INDICATION: Signs/Symptoms:examine scoliosis (surgical planning). COMPARISON: None. ACCESSION NUMBER(S): [id number] ORDERING CLINICIAN: BRYAN LUZ TECHNIQUE: AP and [...] degenerative changes seen of the left hip. Rxjr-hh-lucqxtss degenerative changes seen of the right knee as visualized. There is a left knee arthroplasty. Lungs are clear. Bowel-gas pattern is nonobstructive. IMPRESSION: As above without osseous injury evident. Please see ordering clinician notes for any quantitative measurement of spinal curvature. Signed by: Cal Turner 02/01/2024 12:11 PM Dictation workstation: [id number] Normal [facility] Calcidiolon 01-26-2024 25-hydroxyvitamin D3 [Mass/Vol] 45 ng/mL Normal 30-100 [facility] Comment on above: Order Comment: Defic iency: < 20 ng/mlInsufficiency: 20-29 ng/mlSufficiency: 30-100 ng/mlThis assay accurately quantifies the sum of Vitamin D3, 25-Hydroxy and Vitamin D2,25-Hydroxy. Performed By: #### 2 4323-8 #### SOTO STANFORD ([id number]) [facility] [address] [place] [address] Collagen crosslinked C-telop eptideon 01-26-2024 Collagen crosslinked C-telopeptide [Mass/Vol] 259 pg/mL [facility] Comment on above: Result Comment: Xiang enopausal Females: 136-689 pg/mL Postmenopausal Females: 177-1015 pg/mL REFERENCE INTERVAL: C-Telopeptide, Yqey-Wzryl-Advhvn, Serum Access complete set of age- and/or gender-specific reference intervals for this test in the [facility] Test Directory ([employer]). Performed By: [facility] [address] [place] [address] It Risk Advisor: Dejan Rios MD, PhD CLIA Number: [id number] Performed By: #### 2 4323-8 #### CHARLES COYNE ([id number]) [facility] [address] [place] [address] 87713 Collagen crosslinked N-telop eptide/Creatinineon 01-26-2024 Collagen crosslinked N-telopeptide/Crea tinine (U) [Molar ratio] 23 Normal [facility] Comment on above: Result Comment: Norm [...] reference intervals for this test in the [facility] ([employer]). Performed By: #### 2 4323-8 #### CHARLES COYNE ([id number]) [facility] [address] [place] [address] 47132 Collagen crosslinked N-telop eptide/Creatinine (U) [Molar ratio]on 01-26-2024 Creatinine (U) [Mass/Vol] 33 mg/dL [facility] Comment on above: Result Comment: Perf ormed By: [facility] [address] [place] [address] It Risk Advisor: Dejan Rios MD, PhD CLIA Number: [id number] Performed By: #### 2 4323-8 #### CHARLES COYNE ([id number]) [facility]) [address] [place] [address] Comprehensive metabolic 2000 panelon 01-26-2024 Albumin BCP dye [Mass/Vol] 3.8 g/dL Normal 3.4-5.0 [facility] Comment on above: Performed By: #### 2 4323-8 #### CHARLES COYNE (52929) [facility] [address] [place] [address] 27119 ALP [Catalytic activity/Vol] 74 U/L Normal 33-136 [facility] Comment on above: Performed By: #### 2 4322-8 #### CHARLES COYNE (86365) [facility] [address] [place] [address] 68306 ALT With P-5'-P [Catalytic activity/Vol] 23 U/L Normal 7-45 [facility] Comment on above: Result Comment: Lori ents treated with Sulfasalazine may generate falsely decreased results for ALT. Performed By: #### 2 4323-8 #### CHARLES COYNE (60638) [facility] [address] [place] [address] 43076 Anion gap [Moles/Vol] 9 mmol/L Low 10-20 [facility] Comment on above: Performed By: #### 2 4322-8 #### CHARLES COYNE (70755) [facility] [address] [place] [address] 95454 AST With P-5'-P [Catalytic activity/Vol] 30 U/L Normal 9-39 [facility] Comment on above: Performed By: #### 2 4323-8 #### CHARLES COYNE ([id number]) [facility] [address] [place] [address] 55056 Bilirubin [Mass/Vol] 0.6 mg/dL Normal 0.0-1.2 [facility] Comment on above: Performed By: #### 2 4323-8 #### CHARLES COYNE (40373) [facility] [address] [place] [address] 58277 Calcium [Mass/Vol] 9.3 mg/dL Normal 8.6-10.3 [facility] Comment on above: Performed By: #### 2 4323-8 #### CHARLES COYNE (75075) [facility] [address] [place] [address] 28699 Chloride [Moles/Vol] 106 mmol/L Normal 98-107 [facility] Comment on above: Performed By: #### 2 4323-8 #### CHARLES COYNE (32454) [facility] [address] [place] [address] 61604 CO2 [Moles/Vol] 29 mmol/L Normal 21-32 [facility] Comment on above: Performed By: #### 2 432-8 #### CHARLES COYNE ([id number]) [facility] [address] [place] [address] 27012 Creatinine [Mass/Vol] 0.96 mg/dL Normal 0.50-1.05 [facility] Comment on above: Performed By: #### 2 4323-8 #### CHARLES COYNE (73046) [facility] [address] [place] [address] 91543 Glomerular filtration rate/1.73 sq M.predicted 63 mL/min/1.73m*2 Normal >60 [facility] Comment on above: Result Comment: Calc ulations of estimated GFR are performed using the 2020 CKD-EPI Study Refit equation without the race variable for the IDMS-Traceable creatinine methods. https://jasn.asnjournals.org/content//ASN.329944274 8 Performed By: #### 2 4323-8 #### CHARLES COYNE (04808) [facility] [address] [place] [address] 06692 Glucose [Mass/Vol] 64 mg/dL Low 74-99 [facility] Comment on above: Performed By: #### 2 4323-8 #### CHARLES COYNE (32035) [facility] [address] [place] [address] 98307 Potassium [Moles/Vol] 4.4 mmol/L Normal 3.5-5.3 [facility] Comment on above: Performed By: #### 2 4323-8 #### CHARLES COYNE (55665) [facility] [address] [place] [address] 26286 Protein [Mass/Vol] 5.9 g/dL Low 6.4-8.2 [facility] Comment on above: Performed By: #### 2 4323-8 #### CHARLES COYNE (88489) [facility] [address] [place] [address] 01651 Sodium [Moles/Vol] 140 mmol/L Normal 136-145 [facility] Comment on above: Performed By: #### 2 4323-8 #### CHARLES COYNE (20919) [facility] [address] [place] [address] 05409 Urea nitrogen [Mass/Vol] 23 mg/dL Normal 6-23 [facility] Comment on above: Performed By: #### 2 4323-8 #### CHARLES COYNE (49343) [facility] [address] [place] [address] 94986 POCT SARS-COV-2 PCR manually resultedOrdered By: Sherly Estrada on 12-30-2023 Interpretation and review of laboratory results Abnormal [facility] SARS-CoV-2 (COVID-19) RNA NORA+probe Ql (Resp) Detected Abnormal Not Detected [facility] CT LUMBAR SPINE WO IV CONTRA STon 12-28-2023 CT LUMBAR SPINE WO IV CONTRAST Interpreted By: Good Khan, STUDY: CT LUMBAR SPINE WO IV CONTRAST; ; 12/28/2023 8:15 am INDICATION: Signs/Symptoms:prior lumbar fusion, assess bony anatomy. ,M48.062 Spinal stenosis, lumbar region with neurogenic claudication,M54.17 Radiculopathy, lumbosacral region COMPARISON: MRI lumbar spine from 07/27/2023. CT abdomen and pelvis from 08/08/2013. ACCESSION NUMBER(S): [id number] ORDERING CLINICIAN: BRYAN LUZ TECHNIQUE: Routine unenhanced [...] is moderate left facet osteoarthropathy at T12-L1, hehphavu-ha-zlqvzh bilateral facet osteoarthropathy at L1-L2, and marked [...] spine report. This study was interpreted at [facility]. MACRO: None Signed by: Good Khan 12/29/2023 9:11 AM Dictation workstation: [id number] [facility] XR HIP RIGHT WITH PELVIS WHE N PERFORMED 2 OR 3 VIEWSon 12-28-2023 XR HIP RIGHT WITH PELVIS WHEN PERFORMED 2 OR 3 VIEWS Interpreted By: Anshul Flood, STUDY: XR HIP RIGHT WITH PELVIS WHEN PERFORMED 2 OR 3 VIEWS; 12/28/2023 8:20 am INDICATION: Signs/Symptoms:hip pain. COMPARISON: 02/20/2020 ACCESSION NUMBER(S): [id number] ORDERING CLINICIAN: JASMINE MATHIAS FINDINGS: AP view [...] Anshul Flood 12/29/2023 9:50 AM Dictation workstation: [id number] [facility] CBC W Auto Differential pane l (Bld)on 12-06-2023 Basophils (Bld) [#/Vol] 0.02 x10*3/uL Normal 0.00-0.10 [facility] Comment on above: Performed By: #### 5 7021-8 #### CHARLES COYNE (38798) [facility]) [address] [place] [address] 30677 Basophils/100 WBC (Bld) 0.4 % Normal 0.0-2.0 [facility] Comment on above: Performed By: #### 5 7021-8 #### CHARLES COYNE (29192) [facility] [address] [place] [address] 21542 Eosinophils (Bld) [#/Vol] 0.28 x10*3/uL Normal 0.00-0.40 [facility] Comment on above: Performed By: #### 5 7021-8 #### CHARLES COYNE (65517) [facility] [address] [place] [address] 86548 Eosinophils/100 WBC (Bld) 5.9 % Normal 0.0-6.0 [facility] Comment on above: Performed By: #### 7021-8 #### CHARLES COYNE (55849) [facility] [address] [place] [address] 68524 Erythrocyte distribution width (RBC) [Ratio] 15.7 % High 11.5-14.5 [facility] Comment on above: Performed By: #### 5 7021-8 #### CHARLES COYNE (15611) [facility] [address] [place] [address] 44851 Hematocrit (Bld) [Volume fraction] 33.5 % Low 36.0-46.0 [facility] Comment on above: Performed By: #### 5 7021-8 #### CHARLES COYNE (07997) [facility] [address] [place] [address] 23897 Hemoglobin (Bld) [Mass/Vol] 10.4 g/dL Low 12.0-16.0 [facility] Comment on above: Performed By: #### 5 7021-8 #### CHARLES COYNE (14495) [facility] [address] [place] [address] 64557 Immature granulocytes (Bld) [#/Vol] 0.02 x10*3/uL Normal 0.00-0.50 [facility] Comment on above: Performed By: #### 5 7021-8 #### CHARLES COYNE (86537) [facility] [address] [place] [address] 79870 Immature granulocytes/100 WBC (Bld) 0.4 % Normal 0.0-0.9 [facility] Comment on above: Result Comment: Karla ture Granulocyte Count (IG) includes promyelocytes, myelocytes and metamyelocytes but does not include bands. Percent differential counts (%) should be interpreted in the context of the absolute cell counts (cells/UL). Performed By: #### 5 7021-8 #### CHARLES COYNE (05413) [facility] [address] [place] [address] 49731 Lymphocytes (Bld) [#/Vol] 1.23 x10*3/uL Normal 0.80-3.00 [facility] Comment on above: Performed By: #### 5 7021-8 #### CHARLES COYNE (63209) [facility] [address] [place] [address] 92249 Lymphocytes/100 WBC (Bld) 25.9 % Normal 13.0-44.0 [facility] Comment on above: Performed By: #### 5 7021-8 #### CHARLES COYNE (73302) [facility] [address] [place] [address] 28696 MCH (RBC) [Entitic mass] 31.3 pg Normal 26.0-34.0 [facility] Comment on above: Performed By: #### 5 7021-8 #### CHARLES COYNE (80602) [facility] [address] [place] [address] 49917 MCHC (RBC) [Mass/Vol] 31.0 g/dL Low 32.0-36.0 [facility] Comment on above: Performed By: #### 5 7021-8 #### CHARLES COYNE (99646) [facility] [address] [place] [address] 76687 MCV (RBC) [Entitic vol] 101 fL High 80-100 [facility] Comment on above: Performed By: #### 5 7021-8 #### CHARLES COYNE (31203) [facility] [address] [place] [address] 25352 Monocytes (Bld) [#/Vol] 0.33 x10*3/uL Normal 0.05-0.80 [facility] Comment on above: Performed By: #### 5 7021-8 #### CHARLES COYNE (60127) [facility] [address] [place] [address] 00346 Monocytes/100 WBC (Bld) 7.0 % Normal 2.0-10.0 [facility] Comment on above: Performed By: #### 5 7021-8 #### CHARLES COYNE (89511) [facility] [address] [place] [address] 13141 Neutrophils (Bld) [#/Vol] 2.86 x10*3/uL Normal 1.60-5.50 [facility] Comment on above: Result Comment: Perc ent differential counts (%) should be interpreted in the context of the absolute cell counts (cells/uL). Performed By: #### 5 7021-8 #### CHARLES COYNE (10514) [facility] [address] [place] [address] 94069 Neutrophils/100 WBC (Bld) 60.4 % Normal 40.0-80.0 [facility] Comment on above: Performed By: #### 5 7021-8 #### CHARLES COYNE (33648) [facility]) [address] [place] [address] 03896 Nucleated RBC/100 WBC (Bld) [Ratio] 0.0 /100 WBCs Normal 0.0-0.0 [facility] Comment on above: Performed By: #### 5 7021-8 #### CHARLES COYNE (27043) [facility] [address] [place] [address] 89071 Platelets (Bld) [#/Vol] 216 x10*3/uL Normal 150-450 [facility] Comment on above: Performed By: #### 5 7021-8 #### CHARLES COYNE (20573) [facility] [address] [place] [address] 47734 RBC (Bld) [#/Vol] 3.32 x10*6/uL Low 4.00-5.20 [facility] Comment on above: Performed By: #### 5 7021-8 #### CHARLES COYNE (79159) [facility] [address] [place] [address] WBC (Bld) [#/Vol] 4.7 x10*3/uL Normal 4.4-11.3 [place] Comment on above: Performed By: #### 5 7021-8 #### CHARLES COYNE (58405) [facility] [address] [place] [address] Comprehensive metabolic 2000 panelon 12-06-2023 Albumin BCP dye [Mass/Vol] 3.7 g/dL Normal 3.4-5.0 [facility] Comment on above: Performed By: #### 2 4323-8 #### CHARLES COYNE (68119) [facility] [address] [place] [address] 40157 ALP [Catalytic activity/Vol] 64 U/L Normal 33-136 [facility] Comment on above: Performed By: #### 2 4323-8 #### CHARLES COYNE (68727) [facility] [address] [place] [address] 64917 ALT With P-5'-P [Catalytic activity/Vol] 19 U/L Normal 7-45 [facility] Comment on above: Result Comment: Lori ents treated with Sulfasalazine may generate falsely decreased results for ALT. Performed By: #### 2 4323-8 #### CHARLES COYNE (04718) [facility] [address] [place] [address] 73664 Anion gap [Moles/Vol] 8 mmol/L Low 10-20 [facility] Comment on above: Performed By: #### 2 4323-8 #### CHARLES COYNE (81789) [facility] [address] [place] [address] 19921 AST With P-5'-P [Catalytic activity/Vol] 27 U/L Normal 9-39 [facility] Comment on above: Performed By: #### 2 4323-8 #### CHARLES COYNE (76821) [facility] [address] [place] [address] Bilirubin [Mass/Vol] 0.5 mg/dL Normal 0.0-1.2 [facility] Comment on above: Performed By: #### 2 4323-8 #### CHARLES COYNE (29333) [facility] [address] [place] [address] Calcium [Mass/Vol] 9.2 mg/dL Normal 8.6-10.3 [facility] Comment on above: Performed By: #### 2 4323-8 #### CHARLES COYNE (39055) [facility] [address] [place] [address] Chloride [Moles/Vol] 107 mmol/L Normal 98-107 [facility] Comment on above: Performed By: #### 2 4323-8 #### CHARLES COYNE (55161) [facility] [address] [place] [address] CO2 [Moles/Vol] 31 mmol/L Normal 21-32 [facility] Comment on above: Performed By: #### 2 4323-8 #### CHARLES COYNE (97394) [facility]) [facility] [place] [address] Creatinine [Mass/Vol] 0.89 mg/dL Normal 0.50-1.05 [facility] Comment on above: Performed By: #### 2 4323-8 #### CHARLES COYNE (99571) [facility] [address] [place] [address] 10562 Glomerular filtration rate/1.73 sq M.predicted 69 mL/min/1.73m*2 Normal >60 [facility] Comment on above: Result Comment: Calc ulations of estimated GFR are performed using the 2020 CKD-EPI Study Refit equation without the race variable for the IDMS-Traceable creatinine methods. https://jasn.asnjournals.org/content/early/ASN.724894158 8 Performed By: #### 2 4323-8 #### CHARLES COYNE (68318) [facility] [address] [place] [address] 80426 Glucose [Mass/Vol] 93 mg/dL Normal 74-99 [facility] Comment on above: Performed By: #### 2 4323-8 #### CHARLES COYNE (49252) [facility] [address] [place] [address] 44686 Potassium [Moles/Vol] 4.6 mmol/L Normal 3.5-5.3 [facility] Comment on above: Performed By: #### 2 432-8 #### CHARLES COYNE (55634) [facility] [address] [place] [address] 20283 Protein [Mass/Vol] 5.6 g/dL Low 6.4-8.2 [facility] Comment on above: Performed By: #### 2 4323-8 #### CHARLES COYNE (43375) [facility] [address] [place] [address] 58533 Sodium [Moles/Vol] 141 mmol/L Normal 136-145 [facility] Comment on above: Performed By: #### 2 4323-8 #### CHARLES COYNE (95046) [facility] [address] [place] [address] 13887 Urea nitrogen [Mass/Vol] 22 mg/dL Normal 6-23 [facility] Comment on above: Performed By: #### 2 4323-8 #### CHARLES COYNE (22879) [facility] [address] [place] [address] 47796 CBC W Auto Differential pane l (Bld)on 11-04-2023 Basophils (Bld) [#/Vol] 0.05 x10*3/uL Normal 0.00-0.10 [facility] Comment on above: Performed By: #### 5 7021-8 #### CHARLES COYNE (01239) [facility] [address] [place] [address] 29627 Basophils/100 WBC (Bld) 0.8 % Normal 0.0-2.0 [facility] Comment on above: Performed By: #### 5 7021-8 #### CHARLES COYNE (31693) [facility] [address] [place] [address] 12639 Eosinophils (Bld) [#/Vol] 0.36 x10*3/uL Normal 0.00-0.40 [facility] Comment on above: Performed By: #### 5 7021-8 #### CHARLES COYNE (51975) [facility] [address] [place] [address] 61859 Eosinophils/100 WBC (Bld) 5.5 % Normal 0.0-6.0 [facility] Comment on above: Performed By: #### 5 7021-8 #### CHARLES COYNE (61352) [facility] [address] [place] [address] 51274 Erythrocyte distribution width (RBC) [Ratio] 15.4 % High 11.5-14.5 [facility] Comment on above: Performed By: #### 5 7021-8 #### CHARLES COYNE (07895) [facility] [address] [place] [address] 38629 Hematocrit (Bld) [Volume fraction] 36.5 % Normal 36.0-46.0 [facility] Comment on above: Performed By: #### 5 7021-8 #### CHARLES COYNE (54759) [facility] [address] [place] [address] 13645 Hemoglobin (Bld) [Mass/Vol] 11.1 g/dL Low 12.0-16.0 [facility] Comment on above: Performed By: #### 5 7021-8 #### CHARLES COYNE ([id number]) [facility]) [address] [place] [address] 50511 Immature granulocytes (Bld) [#/Vol] 0.12 x10*3/uL Normal 0.00-0.50 [facility] Comment on above: Performed By: #### 5 7021-8 #### CHARLES COYNE ([id number]) [facility]) [address] [place] [address] 94175 Immature granulocytes/100 WBC (Bld) 1.8 % High 0.0-0.9 [facility] Comment on above: Result Comment: Karla ture Granulocyte Count (IG) includes promyelocytes, myelocytes and metamyelocytes but does not include bands. Percent differential counts (%) should be interpreted in the context of the absolute cell counts (cells/UL). Performed By: #### 5 7021-8 #### CHARLES COYNE (77482) [facility]) [address] [place] [address] Lymphocytes (Bld) [#/Vol] 1.27 x10*3/uL Normal 0.80-3.00 [facility] Comment on above: Performed By: #### 5 7021-8 #### CHARLES COYNE ([id number]) [facility] [address] [place] [address] 63346 Lymphocytes/100 WBC (Bld) 19.3 % Normal 13.0-44.0 [facility] Comment on above: Performed By: #### 5 7021-8 #### CHARLES COYNE ([id number]) [facility]) [address] [place] [address] 59355 MCH (RBC) [Entitic mass] 30.4 pg Normal 26.0-34.0 [facility] Comment on above: Performed By: #### 5 7021-8 #### CHARLES COYNE (99793) [facility] [address] [place] [address] 33648 MCHC (RBC) [Mass/Vol] 30.4 g/dL Low 32.0-36.0 [facility] Comment on above: Performed By: #### 5 7021-8 #### CHARLES COYNE ([id number]) [facility]) [address] [place] [address] 38436 MCV (RBC) [Entitic vol] 100 fL Normal 80-100 [facility] Comment on above: Performed By: #### 5 7021-8 #### CHARLES COYNE ([id number]) [facility]) [address] [place] [address] 99247 Monocytes (Bld) [#/Vol] 0.45 x10*3/uL Normal 0.05-0.80 [facility] Comment on above: Performed By: #### 5 7021-8 #### CHARLES COYNE ([id number]) [facility] [address] [place] [address] 57451 Monocytes/100 WBC (Bld) 6.8 % Normal 2.0-10.0 [facility] Comment on above: Performed By: #### 5 7021-8 #### CHARLES COYNE ([id number]) [facility] [address] [place] [address] 36668 Neutrophils (Bld) [#/Vol] 4.33 x10*3/uL Normal 1.60-5.50 [facility] Comment on above: Result Comment: Perc ent differential counts (%) should be interpreted in the context of the absolute cell counts (cells/uL). Performed By: #### 5 7021-8 #### CHARLES COYNE ([id number]) [facility] [address] [place] [address] 57599 Neutrophils/100 WBC (Bld) 65.8 % Normal 40.0-80.0 [facility] Comment on above: Performed By: #### 5 7021-8 #### CHARLES COYNE ([id number]) [facility]) [address] [place] [address] 16526 Nucleated RBC/100 WBC (Bld) [Ratio] 0.0 /100 WBCs Normal 0.0-0.0 [facility] Comment on above: Performed By: #### 5 7021-8 #### CHARLES COYNE (01110) [facility] [address] [place] [address] 53808 Platelets (Bld) [#/Vol] 326 x10*3/uL Normal 150-450 [facility] Comment on above: Performed By: #### 5 7021-8 #### CHARLES COYNE ([id number]) [facility] [address] [place] [address] 59735 RBC (Bld) [#/Vol] 3.65 x10*6/uL Low 4.00-5.20 [facility] Comment on above: Performed By: #### 5 7021-8 #### CHARLES COYNE ([id number]) [facility] [address] [place] [address] 61164 WBC (Bld) [#/Vol] 6.6 x10*3/uL Normal 4.4-11.3 [place] Comment on above: Performed By: #### 5 7021-8 #### CHARLES COYNE ([id number]) [facility]) [address] [place] [address] 43077 Calcidiolon 11-04-2023 25-hydroxyvitamin D3 [Mass/Vol] 43 ng/mL Normal 30-100 [facility] Comment on above: Order Comment: Defic iency: < 20 ng/ml Insufficiency: 20-29 ng/ml Sufficiency: 30-100 ng/ml This assay accurately quantifies the sum of Vitamin D3, 25-Hydroxy and Vitamin D2,25-Hydroxy. Performed By: #### 1 989-3 #### CHARLES COYNE ([id number]) [facility]) [address] [place] [address] 77326 Cobalaminson 11-04-2023 Cobalamin (Vitamin B12) [Mass/Vol] 939 pg/mL High 211-911 [facility] Comment on above: Performed By: #### 2 132-9 #### SANJUANA Marcelino ([id number]) [facility] ([facility]) [id number] [place] [address] 72702 Comprehensive metabolic 2000 panelon 11-04-2023 Albumin BCP dye [Mass/Vol] 3.8 g/dL Normal 3.4-5.0 [facility] Comment on above: Performed By: #### 2 4323-8 #### CHARLES COYNE ([id number]) [facility]) [address] [place] [address] ALP [Catalytic activity/Vol] 70 U/L Normal 33-136 [facility] Comment on above: Performed By: #### 2 4322-8 #### CHARLES COYNE ([id number]) [facility]) [address] [place] [address] ALT With P-5'-P [Catalytic activity/Vol] 19 U/L Normal 7-45 [facility] Comment on above: Result Comment: Lori ents treated with Sulfasalazine may generate falsely decreased results for ALT. Performed By: #### 2 4322-8 #### CHARLES COYNE ([id number]) [facility]) [address] [place] [address] Anion gap [Moles/Vol] 10 mmol/L Normal 10-20 [facility] Comment on above: Performed By: #### 2 4322-8 #### CHARLES COYNE ([id number]) [facility]) [address] [place] [address] AST With P-5'-P [Catalytic activity/Vol] 23 U/L Normal 9-39 [facility] Comment on above: Performed By: #### 2 4322-8 #### CHARLES COYNE ([id number]) [facility]) [address] [place] [address] Bilirubin [Mass/Vol] 0.4 mg/dL Normal 0.0-1.2 [facility] Comment on above: Performed By: #### 2 4322-8 #### CHARLES COYNE ([id number]) [facility]) [address] [place] [address] Calcium [Mass/Vol] 9.3 mg/dL Normal 8.6-10.3 [facility] Comment on above: Performed By: #### 2 432-8 #### CHARLES COYNE (54439) [facility] [address] [place] [address] Chloride [Moles/Vol] 104 mmol/L Normal 98-107 [facility] Comment on above: Performed By: #### 2 4323-8 #### CHARLES CYONE ([id number]) [facility]) [address] [place] [address] 07867 CO2 [Moles/Vol] 31 mmol/L Normal 21-32 [facility] Comment on above: Performed By: #### 2 4323-8 #### CHARLES COYNE ([id number]) [facility] [address] [place] [address] 16170 Creatinine [Mass/Vol] 0.91 mg/dL Normal 0.50-1.05 [facility] Comment on above: Performed By: #### 2 4323-8 #### CHARLES COYNE (61335) [facility]) [address] [place] [address] 54006 Glomerular filtration rate/1.73 sq M.predicted 67 mL/min/1.73m*2 Normal >60 [facility] Comment on above: Result Comment: Calc ulations of estimated GFR are performed using the 2020 CKD-EPI Study Refit equation without the race variable for the IDMS-Traceable creatinine methods. https://jasn.asnjournals.org/content/early/ASN.771249668 8 Performed By: #### 2 432-8 #### CHARLES COYNE ([id number]) [facility]) [address] [place] [address] 09059 Glucose [Mass/Vol] 100 mg/dL High 74-99 [facility] Comment on above: Performed By: #### 2 4323-8 #### CHARLES COYNE ([id number]) [facility] [address] [place] [address] 03521 Potassium [Moles/Vol] 4.6 mmol/L Normal 3.5-5.3 [facility] Comment on above: Performed By: #### 2 4323-8 #### CHARLES COYNE (37751) [facility]) [address] [place] [address] 32538 Protein [Mass/Vol] 5.9 g/dL Low 6.4-8.2 [facility] Comment on above: Performed By: #### 2 4323-8 #### CHARLES COYNE ([id number]) [facility]) [address] [place] [address] Sodium [Moles/Vol] 140 mmol/L Normal 136-145 [facility] Comment on above: Performed By: #### 2 4323-8 #### CHARLES COYNE ([id number]) [facility]) [address] [place] [address] Urea nitrogen [Mass/Vol] 19 mg/dL Normal 6-23 [facility] Comment on above: Performed By: #### 2 4323-8 #### CHARLES COYNE ([id number]) [facility]) [address] [place] [address] 81665 Lipid 1996 panelon 4 Cholesterol [Mass/Vol] 143 mg/dL Normal 0-199 [facility] Comment on above: Result Comment: Age [...] By: #### 2 4331-1 #### CHARLES COYNE ([id number]) [facility]) [address] [place] [address] 66201 Cholesterol in HDL [Mass/Vol] 53.0 mg/dL Normal [facility] Comment on above: Result Comment: Age Very Low Low Normal High 0-19 Y < 35 < 40 40-45 ---- 20-24 Y ---- < 40 >45 ---- >24 Y ---- < 40 40-60 >60 Performed By: #### 2 4331-1 #### CHARLES COYNE (85933) [facility]) [address] [place] [address] 25346 Cholesterol in LDL [Mass/Vol] 63 mg/dL Normal <=99 [facility] Comment on above: Result Comment: Near Borderline AGE Desirable Optimal High High Very High 0-19 Y 0 - 109 --- 110-129 >/= 130 ---- 20-24 Y 0 - 119 --- 120-159 >/= 160 ---- >24 Y 0 - 99 100-129 130-159 160-189 >/=190 Performed By: #### 2 4331-1 #### CHARLES COYNE (38715) [facility] [address] [place] [address] 40509 Cholesterol in VLDL [Mass/Vol] 27 mg/dL Normal 0-40 [facility] Comment on above: Performed By: #### 2 4331-1 #### CHARLES COYNE (46717) [facility]) [address] [place] [address] 40878 CHOLESTEROL/HDL RATIO 2.7 Normal [facility] Comment on above: Result Comment: Ref Values Desirable < 3.4 High Risk > 5.0 Performed By: #### 2 4331-1 #### CHARLES COYNE (28003) [facility]) [address] [place] [address] 30177 NON HDL CHOLESTEROL 90 mg/dL Normal 0-149 [facility] Comment on above: Result Comment: Age Desirable Borderline High High Very High 0-19 Y 0 - 119 120 - 144 >/= 145 >/= 160 20-24 Y 0 - 149 150 - 189 >/= 190 ---- >24 Y 30 mg/dL above LDL Cholesterol goal Performed By: #### 2 4331-1 #### CHARLES COYNE (99477) [facility]) [address] [place] [address] 02762 Triglyceride [Mass/Vol] 136 mg/dL Normal 0-149 [facility] Comment on above: Result Comment: Age [...] By: #### 2 4331-1 #### CHARLES COYNE (95430) [facility]) [address] [place] [address] 26477 TSH WITH REFLEX TO FREE T4 I F ABNORMALon 11-04-2023 TSH Qn 1.83 m[IU]/L Normal 0.44-3.98 [facility] Comment on above: Order Comment: TSH t esting is performed using different testing methodology at [facility] Direct result comparisons should only be made within the same method. Performed By: #### T HYDS #### CHARLES COYNE (23449) [facility] [address] [place] [address] CBC W Auto Differential pane l (Bld)on 09-05-2023 Basophils (Bld) [#/Vol] 0.04 x10*3/uL Normal 0.00-0.10 [facility] Comment on above: Performed By: #### 5 7021-8 #### CHARLES COYNE ([id number]) [facility]) [address] [place] [address] 95815 Basophils/100 WBC (Bld) 0.7 % Normal 0.0-2.0 [facility] Comment on above: Performed By: #### 5 7021-8 #### CHARLES COYNE ([id number]) [facility]) [address] [place] [address] 69296 Eosinophils (Bld) [#/Vol] 0.29 x10*3/uL Normal 0.00-0.40 [facility] Comment on above: Performed By: #### 5 7021-8 #### CHARLES COYNE (34777) [facility]) [address] [place] [address] 57141 Eosinophils/100 WBC (Bld) 5.3 % Normal 0.0-6.0 [facility] Comment on above: Performed By: #### 5 7021-8 #### CHARLES COYNE ([id number]) [facility]) [address] [place] [address] 81894 Erythrocyte distribution width (RBC) [Ratio] 15.9 % High 11.5-14.5 [facility] Comment on above: Performed By: #### 5 7021-8 #### CHARLES COYNE (61391) [facility]) [address] [place] [address] 93251 Hematocrit (Bld) [Volume fraction] 35.3 % Low 36.0-46.0 [facility] Comment on above: Performed By: #### 5 7021-8 #### CHARLES COYNE (34341) [facility]) [address] [place] [address] 80298 Hemoglobin (Bld) [Mass/Vol] 10.9 g/dL Low 12.0-16.0 [facility] Comment on above: Performed By: #### 5 7021-8 #### CHARLES COYNE (37883) [facility]) [address] [place] [address] 66882 Immature granulocytes (Bld) [#/Vol] 0.02 x10*3/uL Normal 0.00-0.50 [facility] Comment on above: Performed By: #### 5 7021-8 #### CHARLES COYNE (56106) [facility] [address] [place] [address] 61228 Immature granulocytes/100 WBC (Bld) 0.4 % Normal 0.0-0.9 [facility] Comment on above: Result Comment: Karla ture Granulocyte Count (IG) includes promyelocytes, myelocytes and metamyelocytes but does not include bands. Percent differential counts (%) should be interpreted in the context of the absolute cell counts (cells/UL). Performed By: #### 5 7021-8 #### CHARLES COYNE (72298) [facility]) [address] [place] [address] 38270 Lymphocytes (Bld) [#/Vol] 1.50 x10*3/uL Normal 0.80-3.00 [facility] Comment on above: Performed By: #### 5 7021-8 #### CHARLES COYNE (49651) [facility] [address] [place] [address] 02757 Lymphocytes/100 WBC (Bld) 27.3 % Normal 13.0-44.0 [facility] Comment on above: Performed By: #### 5 7021-8 #### CHARLES COYNE (77127) [facility] [address] [place] [address] 07283 MCH (RBC) [Entitic mass] 30.4 pg Normal 26.0-34.0 [facility] Comment on above: Performed By: #### 5 7021-8 #### CHARLES COYNE ([id number]) [facility] [address] [place] [address] 02145 MCHC (RBC) [Mass/Vol] 30.9 g/dL Low 32.0-36.0 [facility] Comment on above: Performed By: #### 5 7021-8 #### CHARLES COYNE ([id number]) [facility]) [address] [place] [address] 41834 MCV (RBC) [Entitic vol] 99 fL Normal 80-100 [facility] Comment on above: Performed By: #### 5 7021-8 #### CHARLES COYNE ([id number]) [facility] [address] [place] [address] 63255 Monocytes (Bld) [#/Vol] 0.50 x10*3/uL Normal 0.05-0.80 [facility] Comment on above: Performed By: #### 5 7021-8 #### CHARLES COYNE (67293) [facility]) [address] [place] [address] 57401 Monocytes/100 WBC (Bld) 9.1 % Normal 2.0-10.0 [facility] Comment on above: Performed By: #### 5 7021-8 #### CHARLES COYNE (99890) [facility]) [address] [place] [address] 70177 Neutrophils (Bld) [#/Vol] 3.14 x10*3/uL Normal 1.60-5.50 [facility] Comment on above: Result Comment: Perc ent differential counts (%) should be interpreted in the context of the absolute cell counts (cells/uL). Performed By: #### 5 7021-8 #### CHARLES COYNE (09782) [facility]) [address] [place] [address] 26112 Neutrophils/100 WBC (Bld) 57.2 % Normal 40.0-80.0 [facility] Comment on above: Performed By: #### 5 7021-8 #### CHARLES COYNE (00273) [facility]) [address] [place] [address] 32000 Nucleated RBC/100 WBC (Bld) [Ratio] 0.0 /100 WBCs Normal 0.0-0.0 [facility] Comment on above: Performed By: #### 5 7021-8 #### CHARLES COYNE (86075) [facility]) [address] [place] [address] 08843 Platelets (Bld) [#/Vol] 269 x10*3/uL Normal 150-450 [facility] Comment on above: Performed By: #### 5 7021-8 #### CHARLES COYNE (88984) [facility]) [address] [place] [address] 60792 RBC (Bld) [#/Vol] 3.58 x10*6/uL Low 4.00-5.20 [facility] Comment on above: Performed By: #### 5 7021-8 #### CHARLES COYNE ([id number]) [facility] [address] [place] [address] WBC (Bld) [#/Vol] 5.5 x10*3/uL Normal 4.4-11.3 [place] Comment on above: Performed By: #### 5 7021-8 #### CHARLES COYNE (38223) [facility]) [address] [place] [address] Comprehensive metabolic 2000 panelon 09-05-2023 Albumin BCP dye [Mass/Vol] 3.9 g/dL Normal 3.4-5.0 [facility] Comment on above: Performed By: #### 2 4323-8 #### CHARLES COYNE ([id number]) [facility]) [address] [place] [address] ALP [Catalytic activity/Vol] 57 U/L Normal 33-136 [facility] Comment on above: Performed By: #### 2 4323-8 #### CHARLES COYNE (76883) [facility]) [address] [place] [address] ALT With P-5'-P [Catalytic activity/Vol] 19 U/L Normal 7-45 [facility] Comment on above: Result Comment: Lori ents treated with Sulfasalazine may generate falsely decreased results for ALT. Performed By: #### 2 4323-8 #### CHARLES COYNE (70420) [facility]) [address] [place] [address] 09290 Anion gap [Moles/Vol] 10 mmol/L Normal 10-20 [facility] Comment on above: Performed By: #### 2 4323-8 #### CHARLES COYNE (34553) [facility]) [address] [place] [address] 20423 AST With P-5'-P [Catalytic activity/Vol] 24 U/L Normal 9-39 [facility] Comment on above: Performed By: #### 2 4323-8 #### CHARLES COYNE (08397) [facility]) [address] [place] [address] 96310 Bilirubin [Mass/Vol] 0.6 mg/dL Normal 0.0-1.2 [facility] Comment on above: Performed By: #### 2 4323-8 #### CHARLES COYNE (57121) [facility] [address] [place] [address] 34506 Calcium [Mass/Vol] 9.2 mg/dL Normal 8.6-10.3 [facility] Comment on above: Performed By: #### 2 4323-8 #### CHARLES COYNE (69145) [facility] [address] [place] [address] 17409 Chloride [Moles/Vol] 106 mmol/L Normal 98-107 [facility] Comment on above: Performed By: #### 2 4323-8 #### CHARLES COYNE (32072) [facility] [address] [place] [address] 32337 CO2 [Moles/Vol] 29 mmol/L Normal 21-32 [facility] Comment on above: Performed By: #### 2 4323-8 #### CHARLES COYNE (89416) [facility] [address] [place] [address] 27949 Creatinine [Mass/Vol] 0.88 mg/dL Normal 0.50-1.05 [facility] Comment on above: Performed By: #### 2 4323-8 #### CHARLES COYNE (02374) [facility] [address] [place] [address] 98437 Glomerular filtration rate/1.73 sq M.predicted 70 mL/min/1.73m*2 Normal >60 [facility] Comment on above: Result Comment: Calc ulations of estimated GFR are performed using the 2020 CKD-EPI Study Refit equation without the race variable for the IDMS-Traceable creatinine methods. https://jasn.asnjournals.org/content/early//ASN.915199310 8 Performed By: #### 2 4323-8 #### CHARLES COYNE ([id number]) [facility] [address] [place] [address] 05128 Glucose [Mass/Vol] 93 mg/dL Normal 74-99 [facility] Comment on above: Performed By: #### 2 4323-8 #### CHARLES COYNE (35692) [facility] [address] [place] [address] 51006 Potassium [Moles/Vol] 4.9 mmol/L Normal 3.5-5.3 [facility] Comment on above: Performed By: #### 2 4323-8 #### CHARLES COYNE (71086) [facility] [address] [place] [address] 62232 Protein [Mass/Vol] 5.4 g/dL Low 6.4-8.2 [facility] Comment on above: Performed By: #### 2 4323-8 #### CHARLES COYNE ([id number]) [facility] [address] [place] [address] 22905 Sodium [Moles/Vol] 140 mmol/L Normal 136-145 [facility] Comment on above: Performed By: #### 2 4323-8 #### CHARLES COYNE (32155) [facility] [address] [place] [address] 00131 Urea nitrogen [Mass/Vol] 29 mg/dL High 6-23 [facility] Comment on above: Performed By: #### 2 4323-8 #### CHARLES COYNE (35192) [facility] [address] [place] [address] 12443 XR tomography Unspecified dinh dy regionon 08-26-2023 [...] Damari Gibson 07/27/2023 10:41 AM Dictation workstation: [id number] [facility] Interpreted By: Damari England, STUDY: MR LUMBAR SPINE WO IV CONTRAST INDICATION: Signs/Symptoms:lower back and leg pain and legt fatigue. H/O fusion COMPARISON: Lumbar spine MRI 07/14/2018 ACCESSION NUMBER(S): [id number] ORDERING CLINICIAN: MAURICIO MANCILLA TECHNIQUE: Multiplanar multisequence [...] of the spinal canal and bilateral foramina, skple-ryawpeq-hghv-left. Crowding of the cauda equina nerve roots [...] COMPARISON: Lumbar spine MRI 07/14/2018 ACCESSION NUMBER(S): [id number] ORDERING CLINICIAN: MAURICIO MANCILLA TECHNIQUE: Multiplanar multisequence [...] of the spinal canal and bilateral foramina, mdofa-milygcd-gpsa-left. Crowding of the cauda equina nerve roots [...] Damari Gibson 07/27/2023 10:41 AM Dictation workstation: [id number] [facility] Work Phone: Radiology Study observation (narrative) [facility] Work Phone: MR Lumbar spine WO contrastO rdered By: Damari Gibson on 07-27-2023 [facility] Work Phone: DBT Breast - bilateralon No mammographic evid ence of malignancy. BI-RADS CATEGORY: BI-RADS Category: 1 Negative. Recommendation: Routine Screening Mammogram in 1 Year. Recommended Date: 1 Year. Laterality: Bilateral. MACRO: None Signed by: Ezequiel Erickson 05/19/2023 10:19 AM Dictation workstation: [id number] [facility] Interpreted By: Ezequiel Felix, STUDY: BI MAMMO BILATERAL SCREENING TOMOSYNTHESIS; 05/19/2023 9:00 am ACCESSION NUMBER(S): [id number] ORDERING CLINICIAN: JASMINE MATHIAS INDICATION: Screening. COMPARISON: [...] SCREENING TOMOSYNTHESIS; 05/19/2023 9:00 am ACCESSION NUMBER(S): [id number] ORDERING CLINICIAN: JASMINE MATHIAS INDICATION: Screening. COMPARISON: [...] Ezequiel Erickson 05/19/2023 10:19 AM Dictation workstation: [id number] [facility] Work Phone: Radiology Study observation (narrative) [facility] Work Phone: DBT Breast - bilateralOrdere d By: Ezequiel Erickson on 05-19-2023 [facility] Work Phone: RFA Unspecified body region [...] the toe with pin fixation GE RIS [facility] Radiology Study observation (narrative) [facility] CT FOOT LEFT WITHOUT CONTRAS Ton [...] on TueDec 31, 2022 3:00:09 PM EDT [facility] Comment on above: Order Comment: Injur [...] Yue Quintana 12/26/2022 5:48 PM Dictation workstation: [id number] MMODAL Interpreted By: Yue Tomlinson, STUDY: Left foot, three views INDICATION: Signs/Symptoms:injury to left great toe and 2 and 3rd toe COMPARISON: Left foot radiographs dated 10/26/2020. ACCESSION NUMBER(S): [id number] ORDERING CLINICIAN: JASMINE MCCORMICK FINDINGS: No acute [...] Left foot radiographs dated 10/26/2020. ACCESSION NUMBER(S): [id number] ORDERING CLINICIAN: JASMINE MCCORMICK FINDINGS: No acute [...] Yue Quintana 12/26/2022 5:48 PM Dictation workstation: [id number] [facility] Work Phone: Radiology Study observation (narrative) [facility] Work Phone: XR Foot - left 3 ViewsOrdere d By: Yue Quintana on 12-26-2022 [facility] Work Phone: NR MRI CERVICAL WOon 023 NR MRI CERVICAL WO Patient Name: NARENDRA ARGUELLES STUDY: MRI CERVICAL WO INDICATION: neck pain COMPARISON: Cervical spine radiograph 11/11/2022. ACCESSION NUMBER(S): [id number] ORDERING CLINICIAN: MAURICIO MANCILLA TECHNIQUE: Multiplanar multisequence [...] abnormality. Electronically signed by: DAMARI GIBSON MD [facility] Established Visit (Pain Medi cine)on 12-16-2022 Established [...] or Bone Graft Simulator, Implanted Breast Tissue Smelter Operator, Glucose Monitor, or Neulasta Device? : No [...] Active Prob (more content not included)... Normal TouchInteractive TKO CBC AND DIFFERENTIALon 12-03 % AUTOMATED IMMATURE GRAN 0.2 % Normal 0.0 - 0.9 [facility] Comment on above: Result Comment: Karla ture Granulocyte Count (IG) includes promyelocytes, myelocytes and metamyelocytes but does not include bands. Percent differential counts (%) should be interpreted in the context of the absolute cell counts (cells/L). Performed By: #### C BCDF #### [address] [address] Basophils (Bld) [#/Vol] 0.03 10*3/uL Normal 0.00 - 0.10 [facility] Comment on above: Performed By: #### C BCDF #### [address] [address] Basophils/100 WBC (Bld) 0.6 % Normal 0.0 - 2.0 [facility] Comment on above: Performed By: #### C BCDF #### [address] [address] Eosinophils (Bld) [#/Vol] 0.23 10*3/uL Normal 0.00 - 0.40 [facility] Comment on above: Performed By: #### C BCDF #### [address] [address] Eosinophils/100 WBC (Bld) 4.4 % Normal 0.0 - 6.0 [facility] Comment on above: Performed By: #### C BCDF #### [address] [address] Erythrocyte distribution width (RBC) [Ratio] 14.6 % High 11.5 - 14.5 [facility] Comment on above: Performed By: #### C BCDF #### [address] [address] Hematocrit (Bld) [Volume fraction] 37.2 % Normal 36.0 - 46.0 [facility] Comment on above: Performed By: #### C BCDF #### [address] [address] Hemoglobin (Bld) [Mass/Vol] 11.6 g/dL Low 12.0 - 16.0 [facility] Comment on above: Performed By: #### C BCDF #### [address] [address] Lymphocytes (Bld) [#/Vol] 1.29 10*3/uL Normal 0.80 - 3.00 [facility] Comment on above: Performed By: #### C BCDF #### [address] [address] Lymphocytes/100 WBC (Bld) 24.4 % Normal 13.0 - 44.0 [facility] Comment on above: Performed By: #### C BCDF #### [address] [address] MCHC (RBC) [Mass/Vol] 31.2 g/dL Low 32.0 - 36.0 [facility] Comment on above: Performed By: #### C BCDF #### [address] [address] MCV (RBC) [Entitic vol] 99 fL Normal 80 - 100 [facility] Comment on above: Performed By: #### C BCDF #### [address] [address] Monocytes (Bld) [#/Vol] 0.34 10*3/uL Normal 0.05 - 0.80 [facility] Comment on above: Performed By: #### C BCDF #### [address] [address] Monocytes/100 WBC (Bld) 6.4 % Normal 2.0 - 10.0 [facility] Comment on above: Performed By: #### C BCDF #### [address] [address] Neutrophils (Bld) [#/Vol] 3.38 10*3/uL Normal 1.60 - 5.50 [facility] Comment on above: Result Comment: Perc ent differential counts (%) should be interpreted in the context of the absolute cell counts (cells/L). Performed By: #### C BCDF #### [address] [address] Neutrophils/100 WBC (Bld) 64.0 % Normal 40.0 - 80.0 [facility] Comment on above: Performed By: #### C BCDF #### [address] [address] Platelets (Bld) [#/Vol] 259 10*3/uL Normal 150 - 450 [facility] Comment on above: Performed By: #### C BCDF #### [address] [address] RBC 3.77 x10E12/L Low 4.00 - 5.20 [facility] Comment on above: Performed By: #### C BCDF #### [address] [address] WBC (Bld) [#/Vol] 5.3 10*3/uL Normal 4.4 - 11.3 [facility] Comment on above: Performed By: #### C BCDF #### [address] [address] COMPREHENSIVE PANELon 2022 Albumin [Mass/Vol] 4.0 g/dL Normal 3.4 - 5.0 [facility] Comment on above: Performed By: #### T HYDS #### [address] [address] ALP [Catalytic activity/Vol] 70 U/L Normal 33 - 136 [facility] Comment on above: Performed By: #### T HYDS #### [address] [address] ALT [Catalytic activity/Vol] 22 U/L Normal 7 - 45 [facility] Comment on above: Result Comment: Lori ents treated with Sulfasalazine may generate falsely decreased results for ALT. Performed By: #### T HYDS #### [address] [address] Anion gap [Moles/Vol] 9 mmol/L Low 10 - 20 [facility] Comment on above: Performed By: #### T HYDS #### [address] [address] AST [Catalytic activity/Vol] 26 U/L Normal 9 - 39 [facility] Comment on above: Performed By: #### T HYDS #### [address] [address] Bilirubin [Mass/Vol] 0.5 mg/dL Normal 0.0 - 1.2 [facility] Comment on above: Performed By: #### T HYDS #### [address] [address] Calcium [Mass/Vol] 9.5 mg/dL Normal 8.6 - 10.3 [facility] Comment on above: Performed By: #### T HYDS #### [address] [address] Chloride [Moles/Vol] 105 mmol/L Normal 98 - 107 [facility] Comment on above: Performed By: #### T HYDS #### [address] [address] Creatinine [Mass/Vol] 0.85 mg/dL Normal 0.50 - 1.05 [facility] Comment on above: Performed By: #### T HYDS #### [address] [address] GFR/1.73 sq M.predicted among non-blacks MDRD (S/P/Bld) [Vol rate/Area] 73 mL/min/{1.73_m2} Normal >90 [facility] Comment on above: Result Comment: CALC ULATIONS OF ESTIMATED GFR ARE PERFORMED USING THE 2020 CKD-EPI STUDY REFIT EQUATION WITHOUT THE RACE VARIABLE FOR THE IDMS-TRACEABLE CREATININE METHODS. https://jasn.asnjournals.org/content/early//ASN.245608957 8 Performed By: #### T HYDS #### [address] [address] Glucose [Mass/Vol] 95 mg/dL Normal 74 - 99 [facility] Comment on above: Performed By: #### T HYDS #### [address] [address] HCO3 (Bld) [Moles/Vol] 30 mmol/L Normal 21 - 32 [facility] Comment on above: Performed By: #### T HYDS #### [address] [address] Potassium [Moles/Vol] 4.5 mmol/L Normal 3.5 - 5.3 [facility] Comment on above: Performed By: #### T HYDS #### [address] [address] Protein [Mass/Vol] 6.2 g/dL Low 6.4 - 8.2 [facility] Comment on above: Performed By: #### T HYDS #### [address] [address] Sodium [Moles/Vol] 139 mmol/L Normal 136 - 145 [facility] Comment on above: Performed By: #### T HYDS #### [address] [address] Urea nitrogen [Mass/Vol] 22 mg/dL Normal 6 - 23 [facility] Comment on above: Performed By: #### T HYDS #### [address] [address] Complete Blood Count + Diffe rentialon 12-03-2022 Basophils/100 WBC (Bld) 0.6 % 0.0 - 2.0 [facility] Work Phone: [phone] Erythrocyte distribution width (RBC) [Ratio] 14.6 % above high threshold See Below [facility] Work Phone: [phone] Comment on above: Reference Range: 11. 5 - 14.5 Hematocrit (Bld) [Volume fraction] 37.2 % See Below [facility] Work Phone: [phone] Comment on above: Reference Range: 36. 0 - 46.0 Hemoglobin (Bld) [Mass/Vol] 11.6 g/dL below low threshold See Below [facility] Work Phone: [phone] Comment on above: Reference Range: 12. 0 - 16.0 Lymphocytes/100 WBC (Bld) 24.4 % See Below [facility] Work Phone: [phone] Comment on above: Reference Range: 13. 0 - 44.0 MCHC (RBC) [Mass/Vol] 31.2 g/dL below low threshold See Below [facility] Work Phone: [phone] Comment on above: Reference Range: 32. 0 - 36.0 MCV (RBC) [Entitic vol] 99 fL 80 - 100 [facility] Work Phone: [phone] Monocytes/100 WBC (Bld) 6.4 % 2.0 - 10.0 [facility] Work Phone: [phone] Neutrophils/100 WBC (Bld) 64.0 % See Below [facility] Work Phone: [phone] Comment on above: Reference Range: 40. 0 - 80.0 Platelets (Bld) [#/Vol] 259 10*3/uL 150 - 450 [facility] Work Phone: [phone] RBC (Bld) [#/Vol] 3.77 {x10E12/L} below low threshold See Below [facility] Work Phone: [phone] Comment on above: Reference Range: 4.0 0 - 5.20 WBC (Bld) [#/Vol] 5.3 10*3/uL 4.4 - 11.3 [facility] Work Phone: [phone] Complete Blood Count + Differential 0.03 {x10E9/L} See Below [facility] Work Phone: [phone] Comment on above: Reference Range: 0.0 0 - 0.10 Complete Blood Count + Differential 0.23 {x10E9/L} See Below [facility] Work Phone: [phone] Comment on above: Reference Range: 0.0 0 - 0.40 Complete Blood Count + Differential 0.34 {x10E9/L} See Below [facility] Work Phone: [phone] Comment on above: Reference Range: 0.0 5 - 0.80 Complete Blood Count + Differential 1.29 {x10E9/L} See Below [facility] Work Phone: [phone] Comment on above: Reference Range: 0.8 0 - 3.00 Complete Blood Count + Differential 3.38 {x10E9/L} See Below [facility] Work Phone: [phone] Comment on above: Reference Range: 1.6 0 - 5.50 Percent differential counts (%) should be interpreted in the context of the absolute cell counts (cells/L). Complete Blood Count + Differential 4.4 % 0.0 - 6.0 [facility] Work Phone: [phone] Complete Blood Count + Differential 0.2 % 0.0 - 0.9 [facility] Work Phone: [phone] Comment on above: Immature Granulocyte Count (IG) includes promyelocytes, myelocytes and metamyelocytes but does not include bands. Percent differential counts (%) should be interpreted in the context of the absolute cell counts (cells/L). Laboratory - Chemistry and C hemistry - challengeon 12-03-2022 Albumin BCP dye [Mass/Vol] 4.0 g/dL 3.4 - 5.0 [facility] Work Phone: [phone] ALP [Catalytic activity/Vol] 70 U/L 33 - 136 [facility] Work Phone: [phone] ALT With P-5'-P [Catalytic activity/Vol] 22 U/L 7 - 45 [facility] Work Phone: [phone] Comment on above: Patients treated wit h Sulfasalazine may generate falsely decreased results for ALT. Anion gap [Moles/Vol] 9 mmol/L below low threshold 10 - 20 [facility] Work Phone: [phone] AST With P-5'-P [Catalytic activity/Vol] 26 U/L 9 - 39 [facility] Work Phone: [phone] Bilirubin [Mass/Vol] 0.5 mg/dL 0.0 - 1.2 [facility] Work Phone: [phone] Calcium [Mass/Vol] 9.5 mg/dL 8.6 - 10.3 [facility] Work Phone: [phone] Chloride [Moles/Vol] 105 mmol/L 98 - 107 [facility] Work Phone: [phone] CO2 [Moles/Vol] 30 mmol/L 21 - 32 [facility] Work Phone: [phone] Creatinine [Mass/Vol] 0.85 mg/dL See Below [facility] Work Phone: [phone] Comment on above: Reference Range: 0.5 0 - 1.05 Glucose [Mass/Vol] 95 mg/dL 74 - 99 [facility] Work Phone: [phone] Potassium [Moles/Vol] 4.5 mmol/L 3.5 - 5.3 [facility] Work Phone: [phone] Protein [Mass/Vol] 6.2 g/dL below low threshold 6.4 - 8.2 [facility] Work Phone: [phone] Sodium [Moles/Vol] 139 mmol/L 136 - 145 [facility] Work Phone: [phone] Urea nitrogen [Mass/Vol] 22 mg/dL 6 - 23 [facility] Work Phone: No Panel Informationon 12-03 73 {mL/min/1.73m2} >90 [facility] Work Phone: [phone] Comment on above: CALCULATIONS OF TAYE MATED GFR ARE PERFORMED USING THE 2020 CKD-EPI STUDY REFIT EQUATION WITHOUT THE RACE VARIABLE FOR THE IDMS-TRACEABLE CREATININE METHODS.https://jasn.asnjournals.org/content//ASN.2 339462645 SPINE, CERVICAL MIN 4 VIEWSo n 11-11-2022 SPINE, CERVICAL MIN 4 VIEWS Patient Name: NARENDRA ARGUELLES STUDY: SPINE, CERVICAL MIN 4 VIEWS; ; 11/11/2022 8:45 am INDICATION: neck pain. COMPARISON: None. ACCESSION NUMBER(S): [id number] ORDERING CLINICIAN: JASMINE MATHIAS FINDINGS: Anterior fusion [...] Electronically signed by: MILE AMBROSE MD Normal [facility] CBC AND DIFFERENTIALon 11-02 % AUTOMATED IMMATURE GRAN 0.4 % Normal 0.0 - 0.9 [facility] Comment on above: Result Comment: Karla ture Granulocyte Count (IG) includes promyelocytes, myelocytes and metamyelocytes but does not include bands. Percent differential counts (%) should be interpreted in the context of the absolute cell counts (cells/L). Performed By: #### C BCDF #### [address] [address] Basophils (Bld) [#/Vol] 0.02 10*3/uL Normal 0.00 - 0.10 [facility] Comment on above: Performed By: #### C BCDF #### [address] [address] Basophils/100 WBC (Bld) 0.4 % Normal 0.0 - 2.0 [facility] Comment on above: Performed By: #### C BCDF #### [address] [address] Eosinophils (Bld) [#/Vol] 0.26 10*3/uL Normal 0.00 - 0.40 [facility] Comment on above: Performed By: #### C BCDF #### [address] [address] Eosinophils/100 WBC (Bld) 5.2 % Normal 0.0 - 6.0 [facility] Comment on above: Performed By: #### C BCDF #### [address] [address] Erythrocyte distribution width (RBC) [Ratio] 14.5 % Normal 11.5 - 14.5 [facility] Comment on above: Performed By: #### C BCDF #### [address] [address] Hematocrit (Bld) [Volume fraction] 37.5 % Normal 36.0 - 46.0 [facility] Comment on above: Performed By: #### C BCDF #### [address] [address] Hemoglobin (Bld) [Mass/Vol] 11.5 g/dL Low 12.0 - 16.0 [facility] Comment on above: Performed By: #### C BCDF #### [address] [address] Lymphocytes (Bld) [#/Vol] 1.00 10*3/uL Normal 0.80 - 3.00 [facility] Comment on above: Performed By: #### C BCDF #### [address] [address] Lymphocytes/100 WBC (Bld) 20.1 % Normal 13.0 - 44.0 [facility] Comment on above: Performed By: #### C BCDF #### [address] [address] MCHC (RBC) [Mass/Vol] 30.7 g/dL Low 32.0 - 36.0 [facility] Comment on above: Performed By: #### C BCDF #### [address] [address] MCV (RBC) [Entitic vol] 100 fL Normal 80 - 100 [facility] Comment on above: Performed By: #### C BCDF #### [address] [address] Monocytes (Bld) [#/Vol] 0.44 10*3/uL Normal 0.05 - 0.80 [facility] Comment on above: Performed By: #### C BCDF #### [address] [address] Monocytes/100 WBC (Bld) 8.8 % Normal 2.0 - 10.0 [facility] Comment on above: Performed By: #### C BCDF #### [address] [address] Neutrophils (Bld) [#/Vol] 3.24 10*3/uL Normal 1.60 - 5.50 [facility] Comment on above: Result Comment: Perc ent differential counts (%) should be interpreted in the context of the absolute cell counts (cells/L). Performed By: #### C BCDF #### [address] [address] Neutrophils/100 WBC (Bld) 65.1 % Normal 40.0 - 80.0 [facility] Comment on above: Performed By: #### C BCDF #### [address] [address] Platelets (Bld) [#/Vol] 252 10*3/uL Normal 150 - 450 [facility] Comment on above: Performed By: #### C BCDF #### [address] [address] RBC 3.76 x10E12/L Low 4.00 - 5.20 [facility] Comment on above: Performed By: #### C BCDF #### [address] [address] WBC (Bld) [#/Vol] 5.0 10*3/uL Normal 4.4 - 11.3 [facility] Comment on above: Performed By: #### C BCDF #### [address] [address] COMPREHENSIVE PANELon 2022 Albumin [Mass/Vol] 3.9 g/dL Normal 3.4 - 5.0 [facility] Comment on above: Performed By: #### C BCDF #### [address] [address] ALP [Catalytic activity/Vol] 66 U/L Normal 33 - 136 [facility] Comment on above: Performed By: #### C BCDF #### [address] [address] ALT [Catalytic activity/Vol] 21 U/L Normal 7 - 45 [facility] Comment on above: Result Comment: Lori ents treated with Sulfasalazine may generate falsely decreased results for ALT. Performed By: #### C BCDF #### [address] [address] Anion gap [Moles/Vol] 7 mmol/L Low 10 - 20 [facility] Comment on above: Performed By: #### C BCDF #### [address] [address] AST [Catalytic activity/Vol] 29 U/L Normal 9 - 39 [facility] Comment on above: Performed By: #### C BCDF #### [address] [address] Bilirubin [Mass/Vol] 0.6 mg/dL Normal 0.0 - 1.2 [facility] Comment on above: Performed By: #### C BCDF #### [address] [address] Calcium [Mass/Vol] 9.5 mg/dL Normal 8.6 - 10.3 [facility] Comment on above: Performed By: #### C BCDF #### [address] [address] Chloride [Moles/Vol] 106 mmol/L Normal 98 - 107 [facility] Comment on above: Performed By: #### C BCDF #### [address] [address] Creatinine [Mass/Vol] 0.79 mg/dL Normal 0.50 - 1.05 [facility] Comment on above: Performed By: #### C BCDF #### [address] [address] GFR/1.73 sq M.predicted among non-blacks MDRD (S/P/Bld) [Vol rate/Area] 80 mL/min/{1.73_m2} Normal >90 [facility] Comment on above: Result Comment: CALC ULATIONS OF ESTIMATED GFR ARE PERFORMED USING THE 2020 CKD-EPI STUDY REFIT EQUATION WITHOUT THE RACE VARIABLE FOR THE IDMS-TRACEABLE CREATININE METHODS. https://jasn.asnjournals.org/content/early//ASN.915698330 8 Performed By: #### C BCDF #### [address] [address] Glucose [Mass/Vol] 92 mg/dL Normal 74 - 99 [facility] Comment on above: Performed By: #### C BCDF #### [address] [address] HCO3 (Bld) [Moles/Vol] 31 mmol/L Normal 21 - 32 [facility] Comment on above: Performed By: #### C BCDF #### [address] [address] Potassium [Moles/Vol] 4.3 mmol/L Normal 3.5 - 5.3 [facility] Comment on above: Performed By: #### C BCDF #### [address] [address] Protein [Mass/Vol] 6.4 g/dL Normal 6.4 - 8.2 [facility] Comment on above: Performed By: #### C BCDF #### [address] [address] Sodium [Moles/Vol] 140 mmol/L Normal 136 - 145 [facility] Comment on above: Performed By: #### C BCDF #### [address] [address] Urea nitrogen [Mass/Vol] 21 mg/dL Normal 6 - 23 [facility] Comment on above: Performed By: #### C BCDF #### [address] [address] LIPID PANEL (CORONARY RISK 2 )on 11-02-2022 Cholesterol [Mass/Vol] 134 mg/dL Normal 0 - 199 [facility] Comment on above: Result Comment: . AGE [...] dosing. Performed By: #### C BCDF #### [address] [address] Cholesterol in HDL [Mass/Vol] 64.0 mg/dL Normal [facility] Comment on above: Result Comment: . AGE VERY LOW LOW NORMAL HIGH 0-19 Y < 35 < 40 40-45 ---- 20-24 Y ---- < 40 >45 ---- >24 Y ---- < 40 40-60 >60 . Performed By: #### C BCDF #### [address] [address] Cholesterol in LDL [Mass/Vol] 52 mg/dL Normal 0 - 99 [facility] Comment on above: Result Comment: . NEAR BORD AGE DESIRABLE OPTIMAL HIGH HIGH VERY HIGH 0-19 Y 0 - 109 --- 110-129 >/= 130 ---- 20-24 Y 0 - 119 --- 120-159 >/= 160 ---- >24 Y 0 - 99 100-129 130-159 160-189 >/=190 . Performed By: #### C BCDF #### [address] [address] Cholesterol in VLDL [Mass/Vol] 18 mg/dL Normal 0 - 40 [facility] Comment on above: Performed By: #### C BCDF #### [address] [address] Cholesterol.total/ Cholesterol in HDL [Mass ratio] 2.1 {ratio} Normal [facility] Comment on above: Result Comment: REF VALUES DESIRABLE < 3.4 HIGH RISK > 5.0 Performed By: #### C BCDF #### [address] [address] Triglyceride [Mass/Vol] 90 mg/dL Normal 0 - 149 [facility] Comment on above: Result Comment: . AGE [...] dosing. Performed By: #### C BCDF #### [address] [address] TSH WITH REFLEX TO FREE T4 I F ABNORMALon 11-02-2022 TSH Qn 2.38 m[IU]/L Normal 0.44 - 3.98 [facility] Comment on above: Result Comment: TSH testing is performed using different testing methodology at [facility] than at other [facility]. Direct result comparisons should only be made within the same method. Performed By: #### T HYDS #### [address] [address] VITAMIN B12on 11-02-2022 Cobalamin (Vitamin B12) [Mass/Vol] 612 pg/mL Normal 211 - 911 [facility] Comment on above: Performed By: #### V TB12 #### [facility] [address] [place] [address] Provider Note - ED v3on 07-0 Provider [...] CARIDAD FUNES ALLEN, MD 09/27/22 15:17 Facility: [facility] INDICATION: Rib pain, post bending over, and [...] Is t (more content not included)... Normal [facility] RIBS, UNILATERAL, W PA CXR 3 VIEWSon [...] Electronically signed by: CARIDAD FUNES MD Normal [facility] CBC AND DIFFERENTIALon 09-07 % AUTOMATED IMMATURE GRAN 0.3 % Normal 0.0 - 0.9 [facility] Comment on above: Result Comment: Karla ture Granulocyte Count (IG) includes promyelocytes, myelocytes and metamyelocytes but does not include bands. Percent differential counts (%) should be interpreted in the context of the absolute cell counts (cells/L). Performed By: #### C BCDF #### [address] [address] Basophils (Bld) [#/Vol] 0.02 10*3/uL Normal 0.00 - 0.10 [facility] Comment on above: Performed By: #### C BCDF #### [address] [address] Basophils/100 WBC (Bld) 0.3 % Normal 0.0 - 2.0 [facility] Comment on above: Performed By: #### C BCDF #### [address] [address] Eosinophils (Bld) [#/Vol] 0.26 10*3/uL Normal 0.00 - 0.70 [facility] Comment on above: Performed By: #### C BCDF #### [address] [address] Eosinophils/100 WBC (Bld) 4.4 % Normal 0.0 - 6.0 [facility] Comment on above: Performed By: #### C BCDF #### [address] [address] Erythrocyte distribution width (RBC) [Ratio] 15.5 % High 11.5 - 14.5 [facility] Comment on above: Performed By: #### C BCDF #### [address] [address] Hematocrit (Bld) [Volume fraction] 38.9 % Normal 36.0 - 46.0 [facility] Comment on above: Performed By: #### C BCDF #### [address] [address] Hemoglobin (Bld) [Mass/Vol] 11.8 g/dL Low 12.0 - 16.0 [facility] Comment on above: Performed By: #### C BCDF #### [address] [address] Lymphocytes (Bld) [#/Vol] 1.52 10*3/uL Normal 1.20 - 4.80 [facility] Comment on above: Performed By: #### C BCDF #### [address] [address] Lymphocytes/100 WBC (Bld) 25.9 % Normal 13.0 - 44.0 [facility] Comment on above: Performed By: #### C BCDF #### [address] [address] MCHC (RBC) [Mass/Vol] 30.3 g/dL Low 32.0 - 36.0 [facility] Comment on above: Performed By: #### C BCDF #### [address] [address] MCV (RBC) [Entitic vol] 100 fL Normal 80 - 100 [facility] Comment on above: Performed By: #### C BCDF #### [address] [address] Monocytes (Bld) [#/Vol] 0.49 10*3/uL Normal 0.10 - 1.00 [facility] Comment on above: Performed By: #### C BCDF #### [address] [address] Monocytes/100 WBC (Bld) 8.4 % Normal 2.0 - 10.0 [facility] Comment on above: Performed By: #### C BCDF #### [address] [address] Neutrophils (Bld) [#/Vol] 3.55 10*3/uL Normal 1.20 - 7.70 [facility] Comment on above: Result Comment: Perc ent differential counts (%) should be interpreted in the context of the absolute cell counts (cells/L). Performed By: #### C BCDF #### [address] [address] Neutrophils/100 WBC (Bld) 60.7 % Normal 40.0 - 80.0 [facility] Comment on above: Performed By: #### C BCDF #### [address] [address] Platelets (Bld) [#/Vol] 255 10*3/uL Normal 150 - 450 [facility] Comment on above: Performed By: #### C BCDF #### [address] [address] RBC 3.91 x10E12/L Low 4.00 - 5.20 [facility] Comment on above: Performed By: #### C BCDF #### [address] [address] WBC (Bld) [#/Vol] 5.9 10*3/uL Normal 4.4 - 11.3 [facility] Comment on above: Performed By: #### C BCDF #### [address] [address] COMPREHENSIVE PANELon 2022 Anion gap [Moles/Vol] 9 mmol/L Low 10 - 20 [facility] Comment on above: Performed By: #### C MP #### [address] [address] Chloride [Moles/Vol] 104 mmol/L Normal 98 - 107 [facility] Comment on above: Result Comment: Conf irmed by repeat analysis Performed By: #### C MP #### [place] [id number] HCO3 (Bld) [Moles/Vol] 32 mmol/L Normal 21 - 32 [facility] Comment on above: Result Comment: Conf irmed by repeat analysis Performed By: #### C MP #### [place] [id number] Potassium [Moles/Vol] 4.6 mmol/L Normal 3.5 - 5.3 [facility] Comment on above: Result Comment: Conf irmed by repeat analysis Performed By: #### C MP #### [place] [id number] Sodium [Moles/Vol] 140 mmol/L Normal 136 - 145 [facility] Comment on above: Result Comment: Conf irmed by repeat analysis Performed By: #### C MP #### [place] [id number] Albumin [Mass/Vol] 4.1 g/dL Normal 3.4 - 5.0 [facility] Comment on above: Performed By: #### C MP #### [address] [address] ALP [Catalytic activity/Vol] 73 U/L Normal 33 - 136 [facility] Comment on above: Performed By: #### C MP #### [address] [address] ALT [Catalytic activity/Vol] 19 U/L Normal 7 - 45 [facility] Comment on above: Result Comment: Lori ents treated with Sulfasalazine may generate falsely decreased results for ALT. Performed By: #### C MP #### [address] [address] AST [Catalytic activity/Vol] 25 U/L Normal 9 - 39 [facility] Comment on above: Performed By: #### C MP #### [address] [address] Bilirubin [Mass/Vol] 0.5 mg/dL Normal 0.0 - 1.2 [facility] Comment on above: Performed By: #### C MP #### [address] [address] Calcium [Mass/Vol] 9.4 mg/dL Normal 8.6 - 10.3 [facility] Comment on above: Performed By: #### C MP #### [address] [address] Creatinine [Mass/Vol] 0.74 mg/dL Normal 0.50 - 1.05 [facility] Comment on above: Performed By: #### C MP #### [address] [address] GFR/1.73 sq M.predicted among non-blacks MDRD (S/P/Bld) [Vol rate/Area] 87 mL/min/{1.73_m2} Normal >90 [facility] Comment on above: Result Comment: CALC ULATIONS OF ESTIMATED GFR ARE PERFORMED USING THE 2020 CKD-EPI STUDY REFIT EQUATION WITHOUT THE RACE VARIABLE FOR THE IDMS-TRACEABLE CREATININE METHODS. https://jasn.asnjournals.org/content//ASN.248167480 8 Performed By: #### C MP #### [address] [address] Glucose [Mass/Vol] 101 mg/dL High 74 - 99 [facility] Comment on above: Performed By: #### C MP #### [address] [address] Protein [Mass/Vol] 6.4 g/dL Normal 6.4 - 8.2 [facility] Comment on above: Performed By: #### C MP #### [address] [address] Urea nitrogen [Mass/Vol] 28 mg/dL High 6 - 23 [facility] Comment on above: Performed By: #### C MP #### [address] [address] CBC AND DIFFERENTIALon 07-07 % AUTOMATED IMMATURE GRAN 0.2 % Normal 0.0 - 0.9 [facility] Comment on above: Result Comment: Karla ture Granulocyte Count (IG) includes promyelocytes, myelocytes and metamyelocytes but does not include bands. Percent differential counts (%) should be interpreted in the context of the absolute cell counts (cells/L). Performed By: #### C BCDF #### [address] [address] Basophils (Bld) [#/Vol] 0.03 10*3/uL Normal 0.00 - 0.10 [facility] Comment on above: Performed By: #### C BCDF #### [address] [address] Basophils/100 WBC (Bld) 0.6 % Normal 0.0 - 2.0 [facility] Comment on above: Performed By: #### C BCDF #### [address] [address] Eosinophils (Bld) [#/Vol] 0.18 10*3/uL Normal 0.00 - 0.70 [facility] Comment on above: Performed By: #### C BCDF #### [address] [address] Eosinophils/100 WBC (Bld) 3.8 % Normal 0.0 - 6.0 [facility] Comment on above: Performed By: #### C BCDF #### [address] [address] Erythrocyte distribution width (RBC) [Ratio] 15.7 % High 11.5 - 14.5 [facility] Comment on above: Performed By: #### C BCDF #### [address] [address] Hematocrit (Bld) [Volume fraction] 36.4 % Normal 36.0 - 46.0 [facility] Comment on above: Performed By: #### C BCDF #### [address] [address] Hemoglobin (Bld) [Mass/Vol] 11.6 g/dL Low 12.0 - 16.0 [facility] Comment on above: Performed By: #### C BCDF #### [address] [address] Lymphocytes (Bld) [#/Vol] 1.12 10*3/uL Low 1.20 - 4.80 [facility] Comment on above: Performed By: #### C BCDF #### [address] [address] Lymphocytes/100 WBC (Bld) 23.8 % Normal 13.0 - 44.0 [facility] Comment on above: Performed By: #### C BCDF #### [address] [address] MCHC (RBC) [Mass/Vol] 31.9 g/dL Low 32.0 - 36.0 [facility] Comment on above: Performed By: #### C BCDF #### [address] [address] MCV (RBC) [Entitic vol] 95 fL Normal 80 - 100 [facility] Comment on above: Performed By: #### C BCDF #### [address] [address] Monocytes (Bld) [#/Vol] 0.38 10*3/uL Normal 0.10 - 1.00 [facility] Comment on above: Performed By: #### C BCDF #### [address] [address] Monocytes/100 WBC (Bld) 8.1 % Normal 2.0 - 10.0 [facility] Comment on above: Performed By: #### C BCDF #### [address] [address] Neutrophils (Bld) [#/Vol] 2.98 10*3/uL Normal 1.20 - 7.70 [facility] Comment on above: Result Comment: Perc ent differential counts (%) should be interpreted in the context of the absolute cell counts (cells/L). Performed By: #### C BCDF #### [address] [address] Neutrophils/100 WBC (Bld) 63.5 % Normal 40.0 - 80.0 [facility] Comment on above: Performed By: #### C BCDF #### [address] [address] Platelets (Bld) [#/Vol] 267 10*3/uL Normal 150 - 450 [facility] Comment on above: Performed By: #### C BCDF #### [address] [address] RBC 3.83 x10E12/L Low 4.00 - 5.20 [facility] Comment on above: Performed By: #### C BCDF #### [address] [address] WBC (Bld) [#/Vol] 4.7 10*3/uL Normal 4.4 - 11.3 [facility] Comment on above: Performed By: #### C BCDF #### [address] [address] COMPREHENSIVE PANELon 2022 Albumin [Mass/Vol] 4.0 g/dL Normal 3.4 - 5.0 [facility] Comment on above: Performed By: #### C MP #### [address] [address] ALP [Catalytic activity/Vol] 64 U/L Normal 33 - 136 [facility] Comment on above: Performed By: #### C MP #### [address] [address] ALT [Catalytic activity/Vol] 19 U/L Normal 7 - 45 [facility] Comment on above: Result Comment: Lori ents treated with Sulfasalazine may generate falsely decreased results for ALT. Performed By: #### C MP #### [address] [address] Anion gap [Moles/Vol] 9 mmol/L Low 10 - 20 [facility] Comment on above: Performed By: #### C MP #### [address] [address] AST [Catalytic activity/Vol] 26 U/L Normal 9 - 39 [facility] Comment on above: Performed By: #### C MP #### [address] [address] Bilirubin [Mass/Vol] 0.5 mg/dL Normal 0.0 - 1.2 [facility] Comment on above: Performed By: #### C MP #### [address] [address] Calcium [Mass/Vol] 9.5 mg/dL Normal 8.6 - 10.3 [facility] Comment on above: Performed By: #### C MP #### [address] [address] Chloride [Moles/Vol] 104 mmol/L Normal 98 - 107 [facility] Comment on above: Performed By: #### C MP #### [address] [address] Creatinine [Mass/Vol] 0.71 mg/dL Normal 0.50 - 1.05 [facility] Comment on above: Performed By: #### C MP #### [address] [address] eGFR FEMALE >90 Normal >90 [facility] Comment on above: Result Comment: CALC ULATIONS OF ESTIMATED GFR ARE PERFORMED USING THE 2020 CKD-EPI STUDY REFIT EQUATION WITHOUT THE RACE VARIABLE FOR THE IDMS-TRACEABLE CREATININE METHODS. https://jasn.asnjournals.org/content//ASN.524231512 8 Performed By: #### C MP #### [address] [address] Glucose [Mass/Vol] 97 mg/dL Normal 74 - 99 [facility] Comment on above: Performed By: #### C MP #### [address] [address] HCO3 (Bld) [Moles/Vol] 29 mmol/L Normal 21 - 32 [facility] Comment on above: Performed By: #### C MP #### [address] [address] Potassium [Moles/Vol] 4.4 mmol/L Normal 3.5 - 5.3 [facility] Comment on above: Performed By: #### C MP #### [address] [address] Protein [Mass/Vol] 6.1 g/dL Low 6.4 - 8.2 [facility] Comment on above: Performed By: #### C MP #### [address] [address] Sodium [Moles/Vol] 138 mmol/L Normal 136 - 145 [facility] Comment on above: Performed By: #### C MP #### [address] [address] Urea nitrogen [Mass/Vol] 22 mg/dL Normal 6 - 23 [facility] Comment on above: Performed By: #### C MP #### [address] [address] Medicare Annual Wellness Vis iton 05-12-2022 Medicare [...] (Dr Chisholm), precancerous lesions on legs ([employer] [place]) - all stable. She states that overall [...] VITALSon 05-12-2022 Adult depression screening assessment No [facility] [employer] Phone: Tobacco Screening.on 023 Fall risk assessment a) No falls within the last year [facility] [employer] [facility] Phone: Tobacco use status [facility] b) No [facility] Phone: Provider Note - ED v3on 04-28 [...] SIGNS: T PRBP SpO2O2(LPM) %FiO2 Method 10-May-2022 09:04:[id number] MDM MDM/ED COURSE: Differential Diagnosis: asthma, [...] ill patient: no Electronic Signatures: Nena Aguilar (EXCELLENCE 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) (Signed 10-May-2022 09:31) Authored: ED Notes, HPI, PMH, ROS, PE, Results/Vital Signs, MDM/ED Course, Clinical Impression, Attestation, Chart Review, Scores Last Updated: 10-May-2022 09:31 by Nena Aguilar (EXCELLENCE 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ACHINE) Normal [facility] CBC AND DIFFERENTIALon 05-05 % AUTOMATED IMMATURE GRAN 0.2 % Normal 0.0 - 0.9 [facility] Comment on above: Result Comment: Karla ture Granulocyte Count (IG) includes promyelocytes, myelocytes and metamyelocytes but does not include bands. Percent differential counts (%) should be interpreted in the context of the absolute cell counts (cells/L). Performed By: #### C BCDF #### [address] [address] Basophils (Bld) [#/Vol] 0.04 10*3/uL Normal 0.00 - 0.10 [facility] Comment on above: Performed By: #### C BCDF #### [address] [address] Basophils/100 WBC (Bld) 0.8 % Normal 0.0 - 2.0 [facility] Comment on above: Performed By: #### C BCDF #### [address] [address] Eosinophils (Bld) [#/Vol] 0.23 10*3/uL Normal 0.00 - 0.70 [facility] Comment on above: Performed By: #### C BCDF #### [address] [address] Eosinophils/100 WBC (Bld) 4.6 % Normal 0.0 - 6.0 [facility] Comment on above: Performed By: #### C BCDF #### [address] [address] Erythrocyte distribution width (RBC) [Ratio] 15.5 % High 11.5 - 14.5 [facility] Comment on above: Performed By: #### C BCDF #### [address] [address] Hematocrit (Bld) [Volume fraction] 35.7 % Low 36.0 - 46.0 [facility] Comment on above: Performed By: #### C BCDF #### [address] [address] Hemoglobin (Bld) [Mass/Vol] 11.1 g/dL Low 12.0 - 16.0 [facility] Comment on above: Performed By: #### C BCDF #### [address] [address] Lymphocytes (Bld) [#/Vol] 1.45 10*3/uL Normal 1.20 - 4.80 [facility] Comment on above: Performed By: #### C BCDF #### [address] [address] Lymphocytes/100 WBC (Bld) 29.2 % Normal 13.0 - 44.0 [facility] Comment on above: Performed By: #### C BCDF #### [address] [address] MCHC (RBC) [Mass/Vol] 31.1 g/dL Low 32.0 - 36.0 [facility] Comment on above: Performed By: #### C BCDF #### [address] [address] MCV (RBC) [Entitic vol] 97 fL Normal 80 - 100 [facility] Comment on above: Performed By: #### C BCDF #### [address] [address] Monocytes (Bld) [#/Vol] 0.43 10*3/uL Normal 0.10 - 1.00 [facility] Comment on above: Performed By: #### C BCDF #### [address] [address] Monocytes/100 WBC (Bld) 8.7 % Normal 2.0 - 10.0 [facility] Comment on above: Performed By: #### C BCDF #### [address] [address] Neutrophils (Bld) [#/Vol] 2.81 10*3/uL Normal 1.20 - 7.70 [facility] Comment on above: Result Comment: Perc ent differential counts (%) should be interpreted in the context of the absolute cell counts (cells/L). Performed By: #### C BCDF #### [address] [address] Neutrophils/100 WBC (Bld) 56.5 % Normal 40.0 - 80.0 [facility] Comment on above: Performed By: #### C BCDF #### [address] [address] Platelets (Bld) [#/Vol] 264 10*3/uL Normal 150 - 450 [facility] Comment on above: Performed By: #### C BCDF #### [address] [address] RBC 3.69 x10E12/L Low 4.00 - 5.20 [facility] Comment on above: Performed By: #### C BCDF #### [address] [address] WBC (Bld) [#/Vol] 5.0 10*3/uL Normal 4.4 - 11.3 [facility] Comment on above: Performed By: #### C BCDF #### [address] [address] COMPREHENSIVE PANELon 2022 Anion gap [Moles/Vol] 10 mmol/L Normal 10 - 20 [facility] Comment on above: Performed By: #### T HYDS #### [address] [address] Chloride [Moles/Vol] 104 mmol/L Normal 98 - 107 [facility] Comment on above: Performed By: #### T HYDS #### [address] [address] HCO3 (Bld) [Moles/Vol] 30 mmol/L Normal 21 - 32 [facility] Comment on above: Performed By: #### T HYDS #### [address] [address] Potassium [Moles/Vol] 4.2 mmol/L Normal 3.5 - 5.3 [facility] Comment on above: Performed By: #### T HYDS #### [address] [address] Sodium [Moles/Vol] 140 mmol/L Normal 136 - 145 [facility] Comment on above: Performed By: #### T HYDS #### [address] [address] Albumin [Mass/Vol] 4.0 g/dL Normal 3.4 - 5.0 [facility] Comment on above: Performed By: #### T HYDS #### [address] [address] ALP [Catalytic activity/Vol] 65 U/L Normal 33 - 136 [facility] Comment on above: Performed By: #### T HYDS #### [address] [address] ALT [Catalytic activity/Vol] 22 U/L Normal 7 - 45 [facility] Comment on above: Result Comment: Lori ents treated with Sulfasalazine may generate falsely decreased results for ALT. Performed By: #### T HYDS #### [address] [address] AST [Catalytic activity/Vol] 31 U/L Normal 9 - 39 [facility] Comment on above: Performed By: #### T HYDS #### [address] [address] Bilirubin [Mass/Vol] 0.5 mg/dL Normal 0.0 - 1.2 [facility] Comment on above: Performed By: #### T HYDS #### [address] [address] Calcium [Mass/Vol] 9.2 mg/dL Normal 8.6 - 10.3 [facility] Comment on above: Performed By: #### T HYDS #### [address] [address] Creatinine [Mass/Vol] 0.72 mg/dL Normal 0.50 - 1.05 [facility] Comment on above: Performed By: #### T HYDS #### [address] [address] GFR/1.73 sq M.predicted among non-blacks MDRD (S/P/Bld) [Vol rate/Area] 90 mL/min/{1.73_m2} Normal >90 [facility] Comment on above: Result Comment: CALC ULATIONS OF ESTIMATED GFR ARE PERFORMED USING THE 2020 CKD-EPI STUDY REFIT EQUATION WITHOUT THE RACE VARIABLE FOR THE IDMS-TRACEABLE CREATININE METHODS. https://jasn.asnjournals.org/content//ASN.694966968 8 Performed By: #### T HYDS #### [address] [address] Glucose [Mass/Vol] 93 mg/dL Normal 74 - 99 [facility] Comment on above: Performed By: #### T HYDS #### [address] [address] Protein [Mass/Vol] 6.2 g/dL Low 6.4 - 8.2 [facility] Comment on above: Performed By: #### T HYDS #### [address] [address] Urea nitrogen [Mass/Vol] 27 mg/dL High 6 - 23 [facility] Comment on above: Performed By: #### T HYDS #### [address] [address] Complete Blood Count + Diffe rentialon 05-05-2022 Basophils/100 WBC (Bld) 0.8 % 0.0 - 2.0 [facility] Phone: Erythrocyte distribution width (RBC) [Ratio] 15.5 % above high threshold See Below [facility] Phone: Comment on above: Reference Range: 11. 5 - 14.5 Hematocrit (Bld) [Volume fraction] 35.7 % below low threshold See Below [facility] [place] [facility] Phone: Comment on above: Reference Range: 36. 0 - 46.0 Hemoglobin (Bld) [Mass/Vol] 11.1 g/dL below low threshold See Below [facility] [place] [facility] [facility] Phone: Comment on above: Reference Range: 12. 0 - 16.0 Lymphocytes/100 WBC (Bld) 29.2 % See Below [facility] [place] [facility] Phone: Comment on above: Reference Range: 13. 0 - 44.0 MCHC (RBC) [Mass/Vol] 31.1 g/dL below low threshold See Below [facility] [place] [facility] Phone: Comment on above: Reference Range: 32. 0 - 36.0 MCV (RBC) [Entitic vol] 97 fL 80 - 100 [facility] [place] [facility] Phone: Monocytes/100 WBC (Bld) 8.7 % 2.0 - 10.0 [facility] [place] [facility] Phone: Neutrophils/100 WBC (Bld) 56.5 % See Below [facility] [place] [facility] Phone: Comment on above: Reference Range: 40. 0 - 80.0 Platelets (Bld) [#/Vol] 264 10*3/uL 150 - 450 [facility] [place] [facility] Phone: RBC (Bld) [#/Vol] 3.69 {x10E12/L} below low threshold See Below [facility] [place] [facility] Phone: Comment on above: Reference Range: 4.0 0 - 5.20 WBC (Bld) [#/Vol] 5.0 10*3/uL 4.4 - 11.3 [facility] Phone: Complete Blood Count + Differential 0.04 {x10E9/L} See Below [facility] [employer] Phone: Comment on above: Reference Range: 0.0 0 - 0.10 Complete Blood Count + Differential 0.23 {x10E9/L} See Below [facility] [employer] Phone: Comment on above: Reference Range: 0.0 0 - 0.70 Complete Blood Count + Differential 0.43 {x10E9/L} See Below [facility] [employer] Phone: Comment on above: Reference Range: 0.1 0 - 1.00 Complete Blood Count + Differential 1.45 {x10E9/L} See Below [facility] [employer] Phone: Comment on above: Reference Range: 1.2 0 - 4.80 Complete Blood Count + Differential 2.81 {x10E9/L} See Below [facility] [employer] Phone: Comment on above: Reference Range: 1.2 0 - 7.70 Percent differential counts (%) should be interpreted in the context of the absolute cell counts (cells/L). Complete Blood Count + Differential 4.6 % 0.0 - 6.0 [facility] [employer] Phone: Complete Blood Count + Differential 0.2 % 0.0 - 0.9 [facility] [employer] Phone: Comment on above: Immature Granulocyte Count [...] dosing. Performed By: #### C BCDF #### [address] [address] Cholesterol in HDL [Mass/Vol] 66.0 mg/dL Normal [facility] Comment on above: Result Comment: . AGE VERY LOW LOW NORMAL HIGH 0-19 Y < 35 < 40 40-45 ---- 20-24 Y ---- < 40 >45 ---- >24 Y ---- < 40 40-60 >60 . Performed By: #### C BCDF #### [address] [address] Cholesterol in LDL [Mass/Vol] 48 mg/dL Normal 0 - 99 [facility] Comment on above: Result Comment: . NEAR BORD AGE DESIRABLE OPTIMAL HIGH HIGH VERY HIGH 0-19 Y 0 - 109 --- 110-129 >/= 130 ---- 20-24 Y 0 - 119 --- 120-159 >/= 160 ---- >24 Y 0 - 99 100-129 130-159 160-189 >/=190 . Performed By: #### C BCDF #### [address] [address] Cholesterol in VLDL [Mass/Vol] 15 mg/dL Normal 0 - 40 [facility] Comment on above: Performed By: #### C BCDF #### [address] [address] Cholesterol.total/ Cholesterol in HDL [Mass ratio] 2.0 {ratio} Normal [facility] Comment on above: Result Comment: REF VALUES DESIRABLE < 3.4 HIGH RISK > 5.0 Performed By: #### C BCDF #### [address] [address] Triglyceride [Mass/Vol] 74 mg/dL Normal 0 - 149 [facility] Comment on above: Result Comment: . AGE [...] dosing. Performed By: #### C BCDF #### [address] [address] Laboratory - Chemistry and C hemistry - challengeon 05-05-2022 Albumin BCP dye [Mass/Vol] 4.0 g/dL 3.4 - 5.0 [facility] Work Phone: ALP [Catalytic activity/Vol] 65 U/L 33 - 136 [facility] Work Phone: ALT With P-5'-P [Catalytic activity/Vol] 22 U/L 7 - 45 [facility] [employer] Phone: Comment on above: Patients treated wit h Sulfasalazine may generate falsely decreased results for ALT. Anion gap [Moles/Vol] 10 mmol/L 10 - 20 [facility] Work Phone: AST With P-5'-P [Catalytic activity/Vol] 31 U/L 9 - 39 [facility] Work Phone: Bilirubin [Mass/Vol] 0.5 mg/dL 0.0 - 1.2 [facility] Work Phone: Calcium [Mass/Vol] 9.2 mg/dL 8.6 - 10.3 [facility] [employer] Work Phone: Chloride [Moles/Vol] 104 mmol/L 98 - 107 [facility] [employer] Work Phone: CO2 [Moles/Vol] 30 mmol/L 21 - 32 [facility] [employer] Work Phone: Creatinine [Mass/Vol] 0.72 mg/dL See Below [facility] [employer] Phone: Comment on above: Reference Range: 0.5 0 - 1.05 Glucose [Mass/Vol] 93 mg/dL 74 - 99 [facility] [employer] Phone: Potassium [Moles/Vol] 4.2 mmol/L 3.5 - 5.3 [facility] [employer] Work Phone: Protein [Mass/Vol] 6.2 g/dL below low threshold 6.4 - 8.2 [facility] [employer] Work Phone: Sodium [Moles/Vol] 140 mmol/L 136 - 145 [facility] [employer] Work Phone: TSH Qn 2.45 m[IU]/L See Below [facility] [employer] Phone: Comment on above: Reference Range: 0.4 4 - 3.98 TSH testing is performed using different testing methodology at [facility] than at other [facility]. Direct result comparisons should only be made within the same method. Urea nitrogen [Mass/Vol] 27 mg/dL above high threshold 6 - 23 [facility] [employer] Work Phone: Lipid Panelon 05-05-2022 Cholesterol [Mass/Vol] 129 mg/dL 0 - 199 [facility] [employer] Phone: Comment on above: . AGE [...] dosing. Cholesterol in HDL [Mass/Vol] 66.0 mg/dL [employer] Phone: Comment on above: . AGE VERY LOW LOW N ORMAL HIGH 0-19 Y < 35 < 40 40-45 ---- 20- 24 Y ---- < 40 >45 ---- >24 Y ---- < 40 40-60 >60. Cholesterol in LDL [Mass/Vol] 48 mg/dL 0 - 99 [employer] Phone: Comment on above: . NEAR BORD AGE JEFFREY RABLE OPTIMAL HIGH HIGH VERY HIGH 0-19 Y 0 - 109 --- 110-129 >/= 130 ---- 20-24 Y 0 - 119 --- 120-159 >/= 160 ---- >24 Y 0 - 99 100-129 130-159 160-189 >/=190. Cholesterol.total/ Cholesterol in HDL [Mass ratio] 2.0 {ratio} [employer] Phone: Comment on above: REF VALUESDESIRABLE < 3.4HIGH RISK > 5.0 Triglyceride [Mass/Vol] 74 mg/dL 0 - 149 [employer] Phone: Comment on above: . AGE DESIRABLE [...] Lipid Panel 15 mg/dL 0 - 40 [facility] Work Phone: No Panel Informationon 05-05 90 {mL/min/1.73m2} >90 [facility] [employer] [employer] Work Phone: Comment on above: CALCULATIONS OF TAYE MATED GFR ARE PERFORMED USING THE 2020 CKD-EPI STUDY REFIT EQUATION WITHOUT THE RACE VARIABLE FOR THE IDMS-TRACEABLE CREATININE METHODS.https://jasn.asnjournals.org/content/early//ASN.2 816889117 TSH WITH REFLEX TO FREE T4 I F ABNORMALon 05-05-2022 TSH Qn 2.45 m[IU]/L Normal 0.44 - 3.98 [facility] Comment on above: Result Comment: TSH testing is performed using different testing methodology at [facility] than at other [facility]. Direct result comparisons should only be made within the same method. Performed By: #### T HYDS #### [address] [address] VITAMIN B12on 05-05-2022 Cobalamin (Vitamin B12) [Mass/Vol] 896 pg/mL Normal 211 - 911 [facility] Comment on above: Performed By: #### V TB12 #### [address] [address] VITAMIN D, 25-HYDROXYon VITAMIN D, 25-HYDROXY 43 ng/mL Normal [facility] Comment on above: Result Comment: . DEFICIENCY: < 20 NG/ML INSUFFICIENCY: 20-29 NG/ML SUFFICIENCY: 30-100 NG/ML THIS ASSAY ACCURATELY QUANTIFIES THE SUM OF VITAMIN D3, 25-HYDROXY AND VIT D2,25-HYDROXY. Performed By: #### C BCDF #### [address] [place] [address] Vitamin B12, Serumon 023 Cobalamin (Vitamin B12) [Mass/Vol] 896 pg/mL 211 - 911 [facility] Work Phone: Vitamin D 25-Hydroxyon 05-05 25-hydroxyvitamin D3 [Mass/Vol] 43 ng/mL [facility] Work Phone: Comment on above: .DEFICIENCY: < 20 NG /MLINSUFFICIENCY: 20-29 NG/MLSUFFICIENCY: 30-100 NG/MLTHIS ASSAY ACCURATELY QUANTIFIES THE SUM OFVITAMIN D3, 25-HYDROXY AND VIT D2,25-HYDROXY. CBC AND DIFFERENTIALon 04-15 % AUTOMATED IMMATURE GRAN 0.2 % Normal 0.0 - 0.9 [facility] Comment on above: Result Comment: Karla ture Granulocyte Count (IG) includes promyelocytes, myelocytes and metamyelocytes but does not include bands. Percent differential counts (%) should be interpreted in the context of the absolute cell counts (cells/L). Performed By: #### C BCDF #### [address] [address] Basophils (Bld) [#/Vol] 0.04 10*3/uL Normal 0.00 - 0.10 [facility] Comment on above: Performed By: #### C BCDF #### [address] [address] Basophils/100 WBC (Bld) 0.7 % Normal 0.0 - 2.0 [facility] Comment on above: Performed By: #### C BCDF #### [address] [address] Eosinophils (Bld) [#/Vol] 0.19 10*3/uL Normal 0.00 - 0.70 [facility] Comment on above: Performed By: #### C BCDF #### [address] [address] Eosinophils/100 WBC (Bld) 3.3 % Normal 0.0 - 6.0 [facility] Comment on above: Performed By: #### C BCDF #### [address] [address] Erythrocyte distribution width (RBC) [Ratio] 15.6 % High 11.5 - 14.5 [facility] Comment on above: Performed By: #### C BCDF #### [address] [address] Hematocrit (Bld) [Volume fraction] 35.9 % Low 36.0 - 46.0 [facility] Comment on above: Performed By: #### C BCDF #### [address] [address] Hemoglobin (Bld) [Mass/Vol] 11.0 g/dL Low 12.0 - 16.0 [facility] Comment on above: Performed By: #### C BCDF #### [address] [address] Lymphocytes (Bld) [#/Vol] 1.30 10*3/uL Normal 1.20 - 4.80 [facility] Comment on above: Performed By: #### C BCDF #### [address] [address] Lymphocytes/100 WBC (Bld) 22.8 % Normal 13.0 - 44.0 [facility] Comment on above: Performed By: #### C BCDF #### [address] [address] MCHC (RBC) [Mass/Vol] 30.6 g/dL Low 32.0 - 36.0 [facility] Comment on above: Performed By: #### C BCDF #### [address] [address] MCV (RBC) [Entitic vol] 96 fL Normal 80 - 100 [facility] Comment on above: Performed By: #### C BCDF #### [address] [address] Monocytes (Bld) [#/Vol] 0.46 10*3/uL Normal 0.10 - 1.00 [facility] Comment on above: Performed By: #### C BCDF #### [address] [address] Monocytes/100 WBC (Bld) 8.1 % Normal 2.0 - 10.0 [facility] Comment on above: Performed By: #### C BCDF #### [address] [address] Neutrophils (Bld) [#/Vol] 3.71 10*3/uL Normal 1.20 - 7.70 [facility] Comment on above: Result Comment: Perc ent differential counts (%) should be interpreted in the context of the absolute cell counts (cells/L). Performed By: #### C BCDF #### [address] [address] Neutrophils/100 WBC (Bld) 64.9 % Normal 40.0 - 80.0 [facility] Comment on above: Performed By: #### C BCDF #### [address] [address] Platelets (Bld) [#/Vol] 312 10*3/uL Normal 150 - 450 [facility] Comment on above: Performed By: #### C BCDF #### [address] [address] RBC 3.73 x10E12/L Low 4.00 - 5.20 [facility] Comment on above: Performed By: #### C BCDF #### [address] [address] WBC (Bld) [#/Vol] 5.7 10*3/uL Normal 4.4 - 11.3 [facility] Comment on above: Performed By: #### C BCDF #### [address] [address] COMPREHENSIVE PANELon 2022 Albumin [Mass/Vol] 4.0 g/dL Normal 3.4 - 5.0 [facility] Comment on above: Performed By: #### C BCDF #### [address] [address] ALP [Catalytic activity/Vol] 72 U/L Normal 33 - 136 [facility] Comment on above: Performed By: #### C BCDF #### [address] [address] ALT [Catalytic activity/Vol] 22 U/L Normal 7 - 45 [facility] Comment on above: Result Comment: Lori ents treated with Sulfasalazine may generate falsely decreased results for ALT. Performed By: #### C BCDF #### [address] [address] Anion gap [Moles/Vol] 7 mmol/L Low 10 - 20 [facility] Comment on above: Performed By: #### C BCDF #### [address] [address] AST [Catalytic activity/Vol] 28 U/L Normal 9 - 39 [facility] Comment on above: Performed By: #### C BCDF #### [address] [address] Bilirubin [Mass/Vol] 0.7 mg/dL Normal 0.0 - 1.2 [facility] Comment on above: Performed By: #### C BCDF #### [address] [address] Calcium [Mass/Vol] 9.5 mg/dL Normal 8.6 - 10.3 [facility] Comment on above: Performed By: #### C BCDF #### [address] [address] Chloride [Moles/Vol] 105 mmol/L Normal 98 - 107 [facility] Comment on above: Performed By: #### C BCDF #### [address] [address] Creatinine [Mass/Vol] 0.77 mg/dL Normal 0.50 - 1.05 [facility] Comment on above: Performed By: #### C BCDF #### [address] [address] GFR/1.73 sq M.predicted among non-blacks MDRD (S/P/Bld) [Vol rate/Area] 83 mL/min/{1.73_m2} Normal >90 [facility] Comment on above: Result Comment: CALC ULATIONS OF ESTIMATED GFR ARE PERFORMED USING THE 2020 CKD-EPI STUDY REFIT EQUATION WITHOUT THE RACE VARIABLE FOR THE IDMS-TRACEABLE CREATININE METHODS. https://jasn.asnjournals.org/content//ASN.148415532 8 Performed By: #### C BCDF #### [address] [address] Glucose [Mass/Vol] 93 mg/dL Normal 74 - 99 [facility] Comment on above: Performed By: #### C BCDF #### [address] [address] HCO3 (Bld) [Moles/Vol] 32 mmol/L Normal 21 - 32 [facility] Comment on above: Performed By: #### C BCDF #### [address] [address] Potassium [Moles/Vol] 4.3 mmol/L Normal 3.5 - 5.3 [facility] Comment on above: Performed By: #### C BCDF #### [address] [address] Protein [Mass/Vol] 6.2 g/dL Low 6.4 - 8.2 [facility] Comment on above: Performed By: #### C BCDF #### [address] [address] Sodium [Moles/Vol] 140 mmol/L Normal 136 - 145 [facility] Comment on above: Performed By: #### C BCDF #### [address] [address] Urea nitrogen [Mass/Vol] 19 mg/dL Normal 6 - 23 [facility] Comment on above: Performed By: #### C BCDF #### [address] [address] Complete Blood Count + Diffe rentialon 04-15-2022 Basophils/100 WBC (Bld) 0.7 % 0.0 - 2.0 -[facility] Work Phone: Erythrocyte distribution width (RBC) [Ratio] 15.6 % above high threshold See Below [facility] [employer] [facility] Phone: Comment on above: Reference Range: 11. 5 - 14.5 Hematocrit (Bld) [Volume fraction] 35.9 % below low threshold See Below [facility]: Comment on above: Reference Range: 36. 0 - 46.0 Hemoglobin (Bld) [Mass/Vol] 11.0 g/dL below low threshold See Below [facility] Phone: Comment on above: Reference Range: 12. 0 - 16.0 Lymphocytes/100 WBC (Bld) 22.8 % See Below [facility] Phone: Comment on above: Reference Range: 13. 0 - 44.0 MCHC (RBC) [Mass/Vol] 30.6 g/dL below low threshold See Below [facility] Phone: Comment on above: Reference Range: 32. 0 - 36.0 MCV (RBC) [Entitic vol] 96 fL 80 - 100 [facility] Phone: Monocytes/100 WBC (Bld) 8.1 % 2.0 - 10.0 [facility] [employer] [facility] Phone: Neutrophils/100 WBC (Bld) 64.9 % See Below [facility] Phone: Comment on above: Reference Range: 40. 0 - 80.0 Platelets (Bld) [#/Vol] 312 10*3/uL 150 - 450 [facility] Phone: RBC (Bld) [#/Vol] 3.73 {x10E12/L} below low threshold See Below [place] [employer] [facility] Phone: Comment on above: Reference Range: 4.0 0 - 5.20 WBC (Bld) [#/Vol] 5.7 10*3/uL 4.4 - 11.3 [facility] [employer] Phone: Complete Blood Count + Differential 0.04 {x10E9/L} See Below [facility] [employer] Phone: Comment on above: Reference Range: 0.0 0 - 0.10 Complete Blood Count + Differential 0.19 {x10E9/L} See Below [facility] [employer] Phone: Comment on above: Reference Range: 0.0 0 - 0.70 Complete Blood Count + Differential 0.46 {x10E9/L} See Below [facility] [employer] Phone: Comment on above: Reference Range: 0.1 0 - 1.00 Complete Blood Count + Differential 1.30 {x10E9/L} See Below [facility] [employer] Phone: Comment on above: Reference Range: 1.2 0 - 4.80 Complete Blood Count + Differential 3.71 {x10E9/L} See Below [facility] [employer] Phone: Comment on above: Reference Range: 1.2 0 - 7.70 Percent differential counts (%) should be interpreted in the context of the absolute cell counts (cells/L). Complete Blood Count + Differential 3.3 % 0.0 - 6.0 [facility] [employer] Phone: Complete Blood Count + Differential 0.2 % 0.0 - 0.9 [facility] [employer] Phone: Comment on above: Immature Granulocyte Count (IG) includes promyelocytes, myelocytes and metamyelocytes but does not include bands. Percent differential counts (%) should be interpreted in the context of the absolute cell counts (cells/L). Laboratory - Chemistry and C hemistry - challengeon 04-15-2022 Albumin BCP dye [Mass/Vol] 4.0 g/dL 3.4 - 5.0 [facility] Work Phone: ALP [Catalytic activity/Vol] 72 U/L 33 - 136 [facility] [employer] Work Phone: ALT With P-5'-P [Catalytic activity/Vol] 22 U/L 7 - 45 [facility] [employer] Work Phone: Comment on above: Patients treated wit h Sulfasalazine may generate falsely decreased results for ALT. Anion gap [Moles/Vol] 7 mmol/L below low threshold 10 - 20 [facility] [employer] Work Phone: AST With P-5'-P [Catalytic activity/Vol] 28 U/L 9 - 39 [facility] [employer] Work Phone: Bilirubin [Mass/Vol] 0.7 mg/dL 0.0 - 1.2 [facility] [employer] Work Phone: Calcium [Mass/Vol] 9.5 mg/dL 8.6 - 10.3 [facility] [employer] Work Phone: Chloride [Moles/Vol] 105 mmol/L 98 - 107 [facility] [employer] Work Phone: CO2 [Moles/Vol] 32 mmol/L 21 - 32 [facility] [employer] Work Phone: Creatinine [Mass/Vol] 0.77 mg/dL See Below [facility] [employer] Work Phone: Comment on above: Reference Range: 0.5 0 - 1.05 Glucose [Mass/Vol] 93 mg/dL 74 - 99 [facility] [employer] Work Phone: Potassium [Moles/Vol] 4.3 mmol/L 3.5 - 5.3 [facility] [employer] Work Phone: Protein [Mass/Vol] 6.2 g/dL below low threshold 6.4 - 8.2 [facility] [employer] Work Phone: Sodium [Moles/Vol] 140 mmol/L 136 - 145 [facility] [employer] [facility] Work Phone: Urea nitrogen [Mass/Vol] 19 mg/dL 6 - 23 [facility] Work Phone: No Panel Informationon 04-15 83 {mL/min/1.73m2} >90 [facility] Work Phone: Comment on above: CALCULATIONS OF TAYE MATED GFR ARE PERFORMED USING THE 2020 CKD-EPI STUDY REFIT EQUATION WITHOUT THE RACE VARIABLE FOR THE IDMS-TRACEABLE CREATININE METHODS.https://jasn.asnjournals.org/content/early//ASN.2 179354777 DIGITAL MAMM SCREENING W/ TO Membreno 03-08-2022 DIGITAL MAMM SCREENING W/ MARINA Patient Name: NARENDRA ARGUELLES STUDY: DIGITAL MAMM SCREENING W/ MARINA; 03/08/2022 11:17 am ACCESSION NUMBER(S): [id number] ORDERING CLINICIAN: JASMINE MATHIAS INDICATION: Screening. COMPARISON: 08/03/2019 10/24/2020 FINDINGS: 2D and tomosynthesis images were reviewed at 1 mm slice thickness. The breast tissue is almost entirely fatty. No suspicious masses or calcifications are identified. CAD was utilized. IMPRESSION: No mammographic evidence of malignancy. BI-RADS CATEGORY: Category: 1 - Negative. Recommendation: 1 Year Screening. For any future breast imaging appointments, please call [phone]). Electronically signed by: KARTHIKEYAN BLOUNT MD [facility] Mamm - Screening Mammogram w / Tomosynthesison 03-08-2022 MG Breast Screening Normal [facility] Work Phone: Clinic Note - Intakeon 02-24 [...] 08:36) Co-Signer: Vital Signs, Falls Isabella Austin (ESTEBAN II) (Signed 24-Feb-2022 13:07) Authored: Patient Visit Information, Vital Signs, Allergies, Outpatient Medication Profile, Notification, Travel History, Falls Last Updated: 25-Feb-2022 08:36 by Lisseth Pa (COLEEN) Normal [facility] CALCIUM, IONIZEDon CALCIUM, IONIZED 1.21 mmol/L Normal 1.10 - 1.33 [facility] Comment on above: Performed By: #### T HYDS #### [address] [address] COMPREHENSIVE PANELon 2021 Bilirubin [Mass/Vol] 0.4 mg/dL Normal 0.0 - 1.2 [facility] Comment on above: Performed By: #### T HYDS #### [address] [address] Glucose [Mass/Vol] 95 mg/dL Normal 74 - 99 [facility] Comment on above: Performed By: #### T HYDS #### [address] [address] Urea nitrogen [Mass/Vol] 19 mg/dL Normal 6 - 23 [facility] Comment on above: Performed By: #### T HYDS #### [address] [address] Albumin [Mass/Vol] 3.9 g/dL Normal 3.4 - 5.0 [facility] Comment on above: Performed By: #### T HYDS #### [address] [address] ALP [Catalytic activity/Vol] 73 U/L Normal 33 - 136 [facility] Comment on above: Performed By: #### T HYDS #### [address] [address] ALT [Catalytic activity/Vol] 87 U/L High 7 - 45 [facility] Comment on above: Result Comment: Lori ents treated with Sulfasalazine may generate falsely decreased results for ALT. Performed By: #### T HYDS #### [address] [address] Anion gap [Moles/Vol] 9 mmol/L Low 10 - 20 [facility] Comment on above: Performed By: #### T HYDS #### [address] [address] AST [Catalytic activity/Vol] 31 U/L Normal 9 - 39 [facility] Comment on above: Performed By: #### T HYDS #### [address] [address] Calcium [Mass/Vol] 9.3 mg/dL Normal 8.6 - 10.3 [facility] Comment on above: Performed By: #### T HYDS #### [address] [address] Chloride [Moles/Vol] 103 mmol/L Normal 98 - 107 [facility] Comment on above: Performed By: #### T HYDS #### [address] [address] Creatinine [Mass/Vol] 0.80 mg/dL Normal 0.50 - 1.05 [facility] Comment on above: Performed By: #### T HYDS #### [address] [address] GFR/1.73 sq M.predicted among non-blacks MDRD (S/P/Bld) [Vol rate/Area] 79 mL/min/{1.73_m2} Normal >90 [facility] Comment on above: Result Comment: CALC ULATIONS OF ESTIMATED GFR ARE PERFORMED USING THE 2020 CKD-EPI STUDY REFIT EQUATION WITHOUT THE RACE VARIABLE FOR THE IDMS-TRACEABLE CREATININE METHODS. https://jasn.asnjournals.org/content//ASN.327023124 8 Performed By: #### T HYDS #### [address] [address] HCO3 (Bld) [Moles/Vol] 29 mmol/L Normal 21 - 32 [facility] Comment on above: Performed By: #### T HYDS #### [address] [address] Potassium [Moles/Vol] 4.3 mmol/L Normal 3.5 - 5.3 [facility] Comment on above: Performed By: #### T HYDS #### [facility] [address] [place] [address] Protein [Mass/Vol] 6.5 g/dL Normal 6.4 - 8.2 [facility] Comment on above: Performed By: #### T HYDS #### [address] [address] Sodium [Moles/Vol] 137 mmol/L Normal 136 - 145 [facility] Comment on above: Performed By: #### T HYDS #### [address] [address] Calcium, Ionized Levelon Calcium, Ionized Level 1.21 mmol/L See Below [facility] [employer] Work Phone: Comment on above: Reference Range: 1.1 0 - 1.33 Laboratory - Chemistry and C hemistry - challengeon 02-22-2022 Albumin BCP dye [Mass/Vol] 3.9 g/dL 3.4 - 5.0 [facility] [employer] Work Phone: ALP [Catalytic activity/Vol] 73 U/L 33 - 136 [facility] [employer] Work Phone: ALT With P-5'-P [Catalytic activity/Vol] 87 U/L above high threshold 7 - 45 [facility] [employer] Work Phone: Comment on above: Patients treated wit h Sulfasalazine may generate falsely decreased results for ALT. Anion gap [Moles/Vol] 9 mmol/L below low threshold 10 - 20 [facility] [employer] Work Phone: AST With P-5'-P [Catalytic activity/Vol] 31 U/L 9 - 39 [facility] [employer] Work Phone: Bilirubin [Mass/Vol] 0.4 mg/dL 0.0 - 1.2 [facility] [employer] Work Phone: Calcium [Mass/Vol] 9.3 mg/dL 8.6 - 10.3 [facility] [employer] Work Phone: Chloride [Moles/Vol] 103 mmol/L 98 - 107 [facility] Work Phone: CO2 [Moles/Vol] 29 mmol/L 21 - 32 [facility] Work Phone: Creatinine [Mass/Vol] 0.80 mg/dL See Below [facility] Phone: Comment on above: Reference Range: 0.5 0 - 1.05 Glucose [Mass/Vol] 95 mg/dL 74 - 99 [facility] Work Phone: Potassium [Moles/Vol] 4.3 mmol/L 3.5 - 5.3 [facility] [employer] Phone: Protein [Mass/Vol] 6.5 g/dL 6.4 - 8.2 [facility] [employer] Phone: Sodium [Moles/Vol] 137 mmol/L 136 - 145 [facility] Work Phone: Urea nitrogen [Mass/Vol] 19 mg/dL 6 - 23 [facility] Phone: No Panel Informationon 02-22 79 {mL/min/1.73m2} >90 [facility] Phone: Comment on above: CALCULATIONS OF TAYE MATED GFR ARE PERFORMED USING THE 2020 CKD-EPI STUDY REFIT EQUATION WITHOUT THE RACE VARIABLE FOR THE IDMS-TRACEABLE CREATININE METHODS.https://jasn.asnjournals.org/content///ASN.2 570674652 Office Visiton 02-01-2022 Follow-up visit Diagnoses/Problems Edema [...] (Dr Chisholm), precancerous lesions on legs ([employer] [place]) - all stable. She states that overall [...] AT BED (more content not included)... Normal [employer] Tobacco Screening.on 022 Fall risk assessment a) No falls within the last year -[place] [employer] Phone: Tobacco use status [facility] b) No -[place] [employer] Phone: BONE DENSITY, DEXA 1 OR MORE SITES: AXIAL SKELETONon 01-26-2022 BONE DENSITY, DEXA 1 OR MORE SITES: AXIAL SKELETON Patient Name: NARENDRA ARGUELLES STUDY: BONE DENSITY, DEXA 1 OR MORE SITES: AXIAL GQHMPKI89/1/2022 9:30 am INDICATION: osteoporosis M81.0: OsteoporosisThe patient is a 71 year old female for a screening bone Densitometry (DEXA). COMPARISON: 08/03/2019. ACCESSION NUMBER(S): [id number] ORDERING CLINICIAN: JASMINE MATHIAS TECHNIQUE: Bone Densitometry [...] Electronically signed by: EZEQUIEL ERICKSON MD Normal [facility] Xray Bone Density, Dexa 1 or More Siteson 01-26-2022 DXA Bone [Mass/Area] Bone density Normal -[facility] Phone: Established Visit (Orthopaed ic Surgery)on 01-19-2022 [...] failure (V17.4 (more content not included)... Normal [facility] CT ABDOMEN WITH CONTRASTon 1 CT ABDOMEN [...] size. Postoperative changes of Rosalva fundoplication with [id number] recurrent hiatal hernia. Liver: Normal. Bile ducts: [...] visualization of lower lumbar spine fixation hardware. [id number] multilevel spondylosis. IMPRESSION: Prior Rosalva fundoplication with [id number] recurrent hiatal hernia. No associated obstruction. Probable left renal cyst. Recommend ultrasound follow-up. ST/lab Workstation ID: [id number] Dictated by: NONA CORRIGAN on TueJan 15, 2022 7:01:40 AM EDT Transcribed by: AMBIKA YOUNG on TueJan 15, 2022 7:05:07 AM EDT Finalized by: NONA CORRIGAN on TueJan 15, 2022 7:18:07 AM EDT [facility] Comment on above: Order Comment: Injur [...] Grandparent Famil (more content not included)... Normal [employer] C TELOPEPTIDE, BETA CROSS ROB Michelle 01-05-2022 C TELOPEPTIDE, BETA CROSS LINKED 412 pg/mL Normal [facility] Comment on above: Result Comment: Xiang enopausal Females: 136-689 pg/mL Postmenopausal Females: 177-1015 pg/mL REFERENCE INTERVAL: C-Telopeptide, Vdzc-Wtfsi-Onzzqg, Serum Access complete set of age- and/or gender-specific reference intervals for this test in the [facility] Test Directory ([employer]). Performed By: [facility] [address] [place] [id number] It Risk Advisor: Dejan Rios MD, PhD Performed By: #### T HYDS #### [address] [address] CBC AND DIFFERENTIALon 01-05 Basophils (Bld) [#/Vol] 0.00 10*3/uL Normal 0.00 - 0.10 [facility] Comment on above: Performed By: #### T HYDS #### [address] [address] Basophils/100 WBC (Bld) 1.0 % Normal 0.0 - 2.0 [facility] Comment on above: Performed By: #### T HYDS #### [address] [address] Eosinophils (Bld) [#/Vol] 0.30 10*3/uL Normal 0.00 - 0.70 [facility] Comment on above: Performed By: #### T HYDS #### [address] [address] Eosinophils/100 WBC (Bld) 6.4 % Normal 0.0 - 6.0 [facility] Comment on above: Performed By: #### T HYDS #### [address] [address] Erythrocyte distribution width (RBC) [Ratio] 16.2 % High 11.5 - 14.5 [facility] Comment on above: Performed By: #### T HYDS #### [address] [address] Hematocrit (Bld) [Volume fraction] 32.2 % Low 36.0 - 46.0 [facility] Comment on above: Performed By: #### T HYDS #### [address] [address] Hemoglobin (Bld) [Mass/Vol] 10.5 g/dL Low 12.0 - 16.0 [facility] Comment on above: Performed By: #### T HYDS #### [address] [address] Lymphocytes (Bld) [#/Vol] 1.20 10*3/uL Normal 1.20 - 4.80 [facility] Comment on above: Performed By: #### T HYDS #### [address] [address] Lymphocytes/100 WBC (Bld) 25.5 % Normal 13.0 - 44.0 [facility] Comment on above: Performed By: #### T HYDS #### [address] [address] MCHC (RBC) [Mass/Vol] 32.4 g/dL Normal 32.0 - 36.0 [facility] Comment on above: Performed By: #### T HYDS #### [address] [address] MCV (RBC) [Entitic vol] 93 fL Normal 80 - 100 [facility] Comment on above: Performed By: #### T HYDS #### [address] [address] Monocytes (Bld) [#/Vol] 0.40 10*3/uL Normal 0.10 - 1.00 [facility] Comment on above: Performed By: #### T HYDS #### [address] [address] Monocytes/100 WBC (Bld) 9.2 % Normal 2.0 - 10.0 [facility] Comment on above: Performed By: #### T HYDS #### [address] [address] Neutrophils (Bld) [#/Vol] 2.70 10*3/uL Normal 1.20 - 7.70 [facility] Comment on above: Result Comment: Perc ent differential counts (%) should be interpreted in the context of the absolute cell counts (cells/L). Performed By: #### T HYDS #### [address] [address] Neutrophils/100 WBC (Bld) 57.9 % Normal 40.0 - 80.0 [facility] Comment on above: Performed By: #### T HYDS #### [address] [address] NUCLEATED RBC 0.1 /100 WBC Normal [facility] Comment on above: Performed By: #### T HYDS #### [address] [address] Platelets (Bld) [#/Vol] 275 10*3/uL Normal 150 - 450 [facility] Comment on above: Performed By: #### T HYDS #### [address] [address] RBC 3.46 x10E12/L Low 4.00 - 5.20 [facility] Comment on above: Performed By: #### T HYDS #### [address] [address] WBC (Bld) [#/Vol] 4.7 10*3/uL Normal 4.4 - 11.3 [facility] Comment on above: Performed By: #### T HYDS #### [address] [address] COMPREHENSIVE PANELon 2021 Albumin [Mass/Vol] 3.8 g/dL Normal 3.4 - 5.0 [facility] Comment on above: Performed By: #### C BCDF #### [address] [address] ALP [Catalytic activity/Vol] 65 U/L Normal 33 - 136 [facility] Comment on above: Performed By: #### C BCDF #### [address] [address] ALT [Catalytic activity/Vol] 21 U/L Normal 7 - 45 [facility] Comment on above: Result Comment: Lori ents treated with Sulfasalazine may generate falsely decreased results for ALT. Performed By: #### C BCDF #### [address] [address] Anion gap [Moles/Vol] 9 mmol/L Low 10 - 20 [facility] Comment on above: Performed By: #### C BCDF #### [address] [address] AST [Catalytic activity/Vol] 24 U/L Normal 9 - 39 [facility] Comment on above: Performed By: #### C BCDF #### [address] [address] Bilirubin [Mass/Vol] 0.6 mg/dL Normal 0.0 - 1.2 [facility] Comment on above: Performed By: #### C BCDF #### [address] [address] Calcium [Mass/Vol] 9.1 mg/dL Normal 8.6 - 10.3 [facility] Comment on above: Performed By: #### C BCDF #### [address] [address] Chloride [Moles/Vol] 105 mmol/L Normal 98 - 107 [facility] Comment on above: Performed By: #### C BCDF #### [address] [address] Creatinine [Mass/Vol] 0.84 mg/dL Normal 0.50 - 1.05 [facility] Comment on above: Performed By: #### C BCDF #### [address] [address] GFR/1.73 sq M.predicted among non-blacks MDRD (S/P/Bld) [Vol rate/Area] 75 mL/min/{1.73_m2} Normal >90 [facility] Comment on above: Result Comment: CALC ULATIONS OF ESTIMATED GFR ARE PERFORMED USING THE 2020 CKD-EPI STUDY REFIT EQUATION WITHOUT THE RACE VARIABLE FOR THE IDMS-TRACEABLE CREATININE METHODS. https://jasn.asnjournals.org/content/early/ASN.983858384 8 Performed By: #### C BCDF #### [address] [address] Glucose [Mass/Vol] 88 mg/dL Normal 74 - 99 [facility] Comment on above: Performed By: #### C BCDF #### [address] [address] HCO3 (Bld) [Moles/Vol] 30 mmol/L Normal 21 - 32 [facility] Comment on above: Performed By: #### C BCDF #### [address] [address] Potassium [Moles/Vol] 4.4 mmol/L Normal 3.5 - 5.3 [facility] Comment on above: Performed By: #### C BCDF #### [address] [address] Protein [Mass/Vol] 5.4 g/dL Low 6.4 - 8.2 [facility] Comment on above: Performed By: #### C BCDF #### [address] [address] Sodium [Moles/Vol] 140 mmol/L Normal 136 - 145 [facility] Comment on above: Performed By: #### C BCDF #### [address] [address] Urea nitrogen [Mass/Vol] 22 mg/dL Normal 6 - 23 [facility] Comment on above: Performed By: #### C BCDF #### [address] [address] Complete Blood Count + Diffe erich 01-05-2022 Basophils/100 WBC (Bld) 1.0 % 0.0 - 2.0 [facility] 300 Work Phone: [phone] Erythrocyte distribution width (RBC) [Ratio] 16.2 % above high threshold See Below [facility] 300 Work Phone: [phone] Comment on above: Reference Range: 11. 5 - 14.5 Hematocrit (Bld) [Volume fraction] 32.2 % below low threshold See Below [facility] 300 Work Phone: [phone] Comment on above: Reference Range: 36. 0 - 46.0 Hemoglobin (Bld) [Mass/Vol] 10.5 g/dL below low threshold See Below [facility] 300 Work Phone: [phone] Comment on above: Reference Range: 12. 0 - 16.0 Lymphocytes/100 WBC (Bld) 25.5 % See Below [facility] 300 Work Phone: [phone] Comment on above: Reference Range: 13. 0 - 44.0 MCHC (RBC) [Mass/Vol] 32.4 g/dL See Below [facility] 300 Work Phone: [phone] Comment on above: Reference Range: 32. 0 - 36.0 MCV (RBC) [Entitic vol] 93 fL 80 - 100 [facility] 300 Work Phone: [phone] Monocytes/100 WBC (Bld) 9.2 % 2.0 - 10.0 [facility] 300 Work Phone: [phone] Neutrophils/100 WBC (Bld) 57.9 % See Below [facility] 300 Work Phone: [phone] Comment on above: Reference Range: 40. 0 - 80.0 Platelets (Bld) [#/Vol] 275 10*3/uL 150 - 450 [facility] 300 Work Phone: [phone] RBC (Bld) [#/Vol] 3.46 {x10E12/L} below low threshold See Below [facility] 300 Work Phone: [phone] Comment on above: Reference Range: 4.0 0 - 5.20 WBC (Bld) [#/Vol] 4.7 10*3/uL 4.4 - 11.3 [facility] 300 Work Phone: [phone] Complete Blood Count + Differential 0.00 {x10E9/L} See Below [facility] 300 Work Phone: [phone] Comment on above: Reference Range: 0.0 0 - 0.10 Complete Blood Count + Differential 0.30 {x10E9/L} See Below [facility] 300 Work Phone: [phone] Comment on above: Reference Range: 0.0 0 - 0.70 Complete Blood Count + Differential 0.40 {x10E9/L} See Below [facility] 300 Work Phone: [phone] Comment on above: Reference Range: 0.1 0 - 1.00 Complete Blood Count + Differential 1.20 {x10E9/L} See Below [facility] 300 Work Phone: [phone] Comment on above: Reference Range: 1.2 0 - 4.80 Complete Blood Count + Differential 2.70 {x10E9/L} See Below [facility] 300 Work Phone: [phone] Comment on above: Reference Range: 1.2 0 - 7.70 Percent differential counts (%) should be interpreted in the context of the absolute cell counts (cells/L). Complete Blood Count + Differential 6.4 % 0.0 - 6.0 [facility] 300 Work Phone: [phone] Complete Blood Count + Differential 0.1 {/100_WBC} [facility] 300 Work Phone: [phone] Established Visit (Orthopaed ic Surgery)on 01-05-2022 [...] Coffee Do (more content not included)... Normal [facility] - Chemistry and C hemistry - challengeon 01-05-2022 Albumin BCP dye [Mass/Vol] 3.8 g/dL 3.4 - 5.0 [facility] 300 Work Phone: [phone] ALP [Catalytic activity/Vol] 65 U/L 33 - 136 [facility] 300 Work Phone: [phone] ALT With P-5'-P [Catalytic activity/Vol] 21 U/L 7 - 45 [facility] 300 Work Phone: [phone] Comment on above: Patients treated wit h Sulfasalazine may generate falsely decreased results for ALT. Anion gap [Moles/Vol] 9 mmol/L below low threshold 10 - 20 [facility] 300 Work Phone: [phone] AST With P-5'-P [Catalytic activity/Vol] 24 U/L 9 - 39 [facility] 300 Work Phone: [phone] Bilirubin [Mass/Vol] 0.6 mg/dL 0.0 - 1.2 [facility] 300 Work Phone: [phone] Calcium [Mass/Vol] 9.1 mg/dL 8.6 - 10.3 [facility] 300 Work Phone: [phone] Chloride [Moles/Vol] 105 mmol/L 98 - 107 [facility] 300 Work Phone: [phone] CO2 [Moles/Vol] 30 mmol/L 21 - 32 [facility] 300 Work Phone: [phone] Creatinine [Mass/Vol] 0.84 mg/dL See Below [facility] 300 Work Phone: [phone] Comment on above: Reference Range: 0.5 0 - 1.05 Glucose [Mass/Vol] 88 mg/dL 74 - 99 [facility] 300 Work Phone: [phone] Potassium [Moles/Vol] 4.4 mmol/L 3.5 - 5.3 [facility] 300 Work Phone: [phone] Protein [Mass/Vol] 5.4 g/dL below low threshold 6.4 - 8.2 [facility] 300 Work Phone: [phone] Sodium [Moles/Vol] 140 mmol/L 136 - 145 [facility] 300 Work Phone: [phone] Urea nitrogen [Mass/Vol] 22 mg/dL 6 - 23 [facility] 300 Work Phone: [phone] N-TELOPEPTIDEon 01-05-2022 Creatinine [Mass/Vol] 46 mg/dL Normal [facility] Comment on above: Result Comment: Perf ormed By: [facility] [address] [place] [id number] It Risk Advisor: Dejan Rios MD, PhD Performed By: #### T HYDS #### [facility] [address] [place] [address] N-TELOPEPTIDE 25 Normal [facility] Comment on above: Result Comment: Norm al [...] reference intervals for this test in the [facility] Test Directory ([employer]). Performed By: #### T HYDS #### [address] [address] No Panel Informationon 01-05 75 {mL/min/1.73m2} >90 [facility] 300 Work Phone: Comment on above: CALCULATIONS OF TAYE MATED GFR ARE PERFORMED USING THE 2020 CKD-EPI STUDY REFIT EQUATION WITHOUT THE RACE VARIABLE FOR THE IDMS-TRACEABLE CREATININE METHODS.https://jasn.asnjournals.org/content//ASN.2 765835211 Tobacco Screening.on 022 Fall risk assessment a) No falls within the last year [facility] 300 Work Phone: [phone] Tobacco use status [facility] b) No [facility] 300 Work Phone: C Telopeptide, Beta Cross Li nkedon 12-30-2021 C Telopeptide, Beta Cross Linked 412 pg/mL [facility] 300 Work Phone: Comment on above: Premenopausal Female s: 136-689 pg/mLPostmenopausal Females: 177-1015 pg/mLREFERENCE INTERVAL: C-Telopeptide, Vukq-Njoph-Kuvhuz, SerumAccess complete set of age- and/or gender-specific reference intervals for this test in the [facility] Test Directory ([employer]).Performed By: [facility] [place] [id number] Director: Dejan Rios MD, PhD COMPREHENSIVE PANELon 2021 Albumin [Mass/Vol] 3.8 g/dL Normal 3.4 - 5.0 [facility] Comment on above: Performed By: #### C BCDF #### [address] [address] ALP [Catalytic activity/Vol] 70 U/L Normal 33 - 136 [facility] Comment on above: Performed By: #### C BCDF #### [address] [address] ALT [Catalytic activity/Vol] 32 U/L Normal 7 - 45 [facility] Comment on above: Result Comment: Lori ents treated with Sulfasalazine may generate falsely decreased results for ALT. Performed By: #### C BCDF #### [address] [address] Anion gap [Moles/Vol] 10 mmol/L Normal 10 - 20 [facility] Comment on above: Performed By: #### C BCDF #### [address] [address] AST [Catalytic activity/Vol] 42 U/L High 9 - 39 [facility] Comment on above: Performed By: #### C BCDF #### [address] [address] Bilirubin [Mass/Vol] 0.6 mg/dL Normal 0.0 - 1.2 [facility] Comment on above: Performed By: #### C BCDF #### [address] [address] Calcium [Mass/Vol] 9.2 mg/dL Normal 8.6 - 10.3 [facility] Comment on above: Performed By: #### C BCDF #### [address] [address] Chloride [Moles/Vol] 104 mmol/L Normal 98 - 107 [facility] Comment on above: Performed By: #### C BCDF #### [address] [address] Creatinine [Mass/Vol] 0.78 mg/dL Normal 0.50 - 1.05 [facility] Comment on above: Performed By: #### C BCDF #### [address] [address] GFR/1.73 sq M.predicted among non-blacks MDRD (S/P/Bld) [Vol rate/Area] 82 mL/min/{1.73_m2} Normal >90 [facility] Comment on above: Result Comment: CALC ULATIONS OF ESTIMATED GFR ARE PERFORMED USING THE 2021 CKD-EPI STUDY REFIT EQUATION WITHOUT THE RACE VARIABLE FOR THE IDMS-TRACEABLE CREATININE METHODS. https://jasn.asnjournals.org/content//ASN.254371330 8 Performed By: #### C BCDF #### [address] [address] Glucose [Mass/Vol] 88 mg/dL Normal 74 - 99 [facility] Comment on above: Performed By: #### C BCDF #### [address] [address] HCO3 (Bld) [Moles/Vol] 31 mmol/L Normal 21 - 32 [facility] Comment on above: Performed By: #### C BCDF #### [address] [address] Potassium [Moles/Vol] 4.7 mmol/L Normal 3.5 - 5.3 [facility] Comment on above: Performed By: #### C BCDF #### [address] [address] Protein [Mass/Vol] 5.7 g/dL Low 6.4 - 8.2 [facility] Comment on above: Performed By: #### C BCDF #### [address] [address] Sodium [Moles/Vol] 140 mmol/L Normal 136 - 145 [facility] Comment on above: Performed By: #### C BCDF #### [address] [address] Urea nitrogen [Mass/Vol] 19 mg/dL Normal 6 - 23 [facility] Comment on above: Performed By: #### C BCDF #### [address] [address] Laboratory - Chemistry and C hemistry - challengeon 12-30-2021 Collagen crosslinked N-telopeptide/Crea tinine (U) [Molar ratio] 25 1 [facility] 300 [...] reference intervals for this test in the [facility] [facility] Test Directory ([employer]). Creatinine (U) [Mass/Vol] 46 mg/dL [facility] 300 Work Phone: [phone] Comment on above: Performed By: KEYA [email or web address] [address]Hsktobqgou Director: Dejan Rios MD, PhD Albumin BCP dye [Mass/Vol] 3.8 g/dL 3.4 - 5.0 [facility] 300 Work Phone: [phone] ALP [Catalytic activity/Vol] 70 U/L 33 - 136 [facility] 300 Work Phone: [phone] ALT With P-5'-P [Catalytic activity/Vol] 32 U/L 7 - 45 [facility] 300 Work Phone: [phone] Comment on above: Patients treated wit h Sulfasalazine may generate falsely decreased results for ALT. Anion gap [Moles/Vol] 10 mmol/L 10 - 20 [facility] 300 Work Phone: [phone] AST With P-5'-P [Catalytic activity/Vol] 42 U/L above high threshold 9 - 39 [facility] 300 Work Phone: [phone] Bilirubin [Mass/Vol] 0.6 mg/dL 0.0 - 1.2 [facility] 300 Work Phone: [phone] Calcium [Mass/Vol] 9.2 mg/dL 8.6 - 10.3 [facility] 300 Work Phone: Chloride [Moles/Vol] 104 mmol/L 98 - 107 [facility] 300 Work Phone: [phone] CO2 [Moles/Vol] 31 mmol/L 21 - 32 [facility] 300 Work Phone: [phone] Creatinine [Mass/Vol] 0.78 mg/dL See Below [facility] 300 Work Phone: [phone] Comment on above: Reference Range: 0.5 0 - 1.05 Glucose [Mass/Vol] 88 mg/dL 74 - 99 [facility] 300 Work Phone: [phone] Potassium [Moles/Vol] 4.7 mmol/L 3.5 - 5.3 [facility] 300 Work Phone: [phone] Protein [Mass/Vol] 5.7 g/dL below low threshold 6.4 - 8.2 [facility] 300 Work Phone: [phone] Sodium [Moles/Vol] 140 mmol/L 136 - 145 [facility] 300 Work Phone: [phone] Urea nitrogen [Mass/Vol] 19 mg/dL 6 - 23 [facility] 300 Work Phone: [phone] No Panel Informationon 12-30 82 {mL/min/1.73m2} >90 [facility] 300 Work Phone: [phone] Comment on above: CALCULATIONS OF TAYE MATED GFR ARE PERFORMED USING THE 2020 CKD-EPI STUDY REFIT EQUATION WITHOUT THE RACE VARIABLE FOR THE IDMS-TRACEABLE CREATININE METHODS.https://jasn.asnjournals.org/content//ASN.2 042301616 THYROXINEon 12-30-2021 T4 [Mass/Vol] 6.7 ug/dL Normal 4.5 - 11.1 [facility] Comment on above: Performed By: #### C BCDF #### [facility] [address] [place] [address] TSHon 12-30-2021 TSH Qn 2.64 m[IU]/L Normal 0.44 - 3.98 [facility] Comment on above: Result Comment: TSH testing is performed using different testing methodology at [facility] than at other [facility]. Direct result comparisons should only be made within the same method. Performed By: #### C BCDF #### [address] [address] TSH - Thyroid Stimulating Ho rmone, Serumon 12-30-2021 TSH Qn 2.64 m[IU]/L See Below [facility] 300 Work Phone: Comment on above: Reference Range: 0.4 4 - 3.98 TSH testing is performed using different testing methodology at [facility] than at other [facility]. Direct result comparisons should only be made within the same method. Thyroxine, Serum (T4)on T4 [Mass/Vol] 6.7 ug/dL 4.5 - 11.1 [facility] 300 Work Phone: VITAMIN D, 25-HYDROXYon VITAMIN D, 25-HYDROXY 56 ng/mL Normal [facility] Comment on above: Result Comment: . DEFICIENCY: < 20 NG/ML INSUFFICIENCY: 20-29 NG/ML SUFFICIENCY: 30-100 NG/ML THIS ASSAY ACCURATELY QUANTIFIES THE SUM OF VITAMIN D3, 25-HYDROXY AND VIT D2,25-HYDROXY. Performed By: #### T HYDS #### [address] [address] Vitamin D 25-Hydroxyon 12-30 25-hydroxyvitamin D3 [Mass/Vol] 56 ng/mL [facility] 300 Work Phone: Comment on above: .DEFICIENCY: < 20 NG /MLINSUFFICIENCY: 20-29 NG/MLSUFFICIENCY: 30-100 NG/MLTHIS ASSAY ACCURATELY QUANTIFIES THE SUM OFVITAMIN D3, 25-HYDROXY AND VIT D2,25-HYDROXY. Radiologyon 12-10-2021 XR Knee 4 Views Please click on the link to view the study images Normal [facility] 300 Work Phone: [phone] XR Knee 4 Views Normal [facility] 300 Work Phone: [phone] Tobacco Screening.on Fall risk assessment b) One or more falls in the last year [facility] 300 Work Phone: Tobacco use status [facility] b) No [facility] 300 Work Phone: [phone] Tobacco Screening.on Fall risk assessment a) No falls within the last year [facility] 205 DO Work Phone: Tobacco use status [facility] b) No [facility] 205 DO Work Phone: Complete Blood Count + Diffe rentialon 11-04-2021 Basophils/100 WBC (Bld) 0.8 % 0.0 - 2.0 [facility] 205 DO Work Phone: Erythrocyte distribution width (RBC) [Ratio] 16.1 % above high threshold See Below [facility] 205 DO Work Phone: Comment on above: Reference Range: 11. 5 - 14.5 Hematocrit (Bld) [Volume fraction] 31.7 % below low threshold See Below [facility] 205 DO Work Phone: Comment on above: Reference Range: 36. 0 - 46.0 Hemoglobin (Bld) [Mass/Vol] 10.9 g/dL below low threshold See Below [facility] 205 DO Work Phone: Comment on above: Reference Range: 12. 0 - 16.0 Lymphocytes/100 WBC (Bld) 25.4 % See Below [facility] 205 DO Work Phone: Comment on above: Reference Range: 13. 0 - 44.0 MCHC (RBC) [Mass/Vol] 34.3 g/dL See Below [facility] 205 DO Work Phone: Comment on above: Reference Range: 32. 0 - 36.0 MCV (RBC) [Entitic vol] 93 fL 80 - 100 [facility] 205 DO Work Phone: Monocytes/100 WBC (Bld) 8.3 % 2.0 - 10.0 [facility] 205 DO Work Phone: Neutrophils/100 WBC (Bld) 60.4 % See Below [facility] 205 DO Work Phone: Comment on above: Reference Range: 40. 0 - 80.0 Platelets (Bld) [#/Vol] 249 10*3/uL 150 - 450 [facility] 205 DO Work Phone: RBC (Bld) [#/Vol] 3.42 {x10E12/L} below low threshold See Below [facility] 205 DO Work Phone: Comment on above: Reference Range: 4.0 0 - 5.20 WBC (Bld) [#/Vol] 4.7 10*3/uL 4.4 - 11.3 [facility] 205 DO Work Phone: Complete Blood Count + Differential 0.00 {x10E9/L} See Below [facility] 205 DO Work Phone: Comment on above: Reference Range: 0.0 0 - 0.10 Complete Blood Count + Differential 0.20 {x10E9/L} See Below [facility] 205 DO Work Phone: Comment on above: Reference Range: 0.0 0 - 0.70 Complete Blood Count + Differential 0.40 {x10E9/L} See Below [facility] 205 DO Work Phone: Comment on above: Reference Range: 0.1 0 - 1.00 Complete Blood Count + Differential 1.20 {x10E9/L} See Below [facility] 205 DO Work Phone: Comment on above: Reference Range: 1.2 0 - 4.80 Complete Blood Count + Differential 2.80 {x10E9/L} See Below [place] [address] DO Work Phone: Comment on above: Reference Range: 1.2 0 - 7.70 Percent differential counts (%) should be interpreted in the context of the absolute cell counts (cells/L). Complete Blood Count + Differential 5.1 % 0.0 - 6.0 [place] [address] DO Work Phone: Complete Blood Count + Differential 0.1 {/100_WBC} [place] [address] DO Work Phone: Laboratory - Chemistry and C hemistry - challengeon 11-04-2021 Albumin BCP dye [Mass/Vol] 3.8 g/dL 3.4 - 5.0 [place] [address] DO Work Phone: ALP [Catalytic activity/Vol] 59 U/L 33 - 136 [place] [address] DO Work Phone: ALT With P-5'-P [Catalytic activity/Vol] 19 U/L 7 - 45 [place] [address] DO Work Phone: Comment on above: Patients treated wit h Sulfasalazine may generate falsely decreased results for ALT. Anion gap [Moles/Vol] 9 mmol/L below low threshold 10 - 20 [place] [address] DO Work Phone: AST With P-5'-P [Catalytic activity/Vol] 27 U/L 9 - 39 [facility] 205 DO Work Phone: Bilirubin [Mass/Vol] 0.6 mg/dL 0.0 - 1.2 [facility] 205 DO Work Phone: Calcium [Mass/Vol] 9.0 mg/dL 8.6 - 10.3 [facility] 205 DO Work Phone: Chloride [Moles/Vol] 106 mmol/L 98 - 107 [facility] 205 DO Work Phone: CO2 [Moles/Vol] 30 mmol/L 21 - 32 [facility] 205 DO Work Phone: Creatinine [Mass/Vol] 0.80 mg/dL See Below [facility] 205 DO Work Phone: Comment on above: Reference Range: 0.5 0 - 1.05 Glucose [Mass/Vol] 86 mg/dL 74 - 99 [facility] [facility] [place] 205 DO Work Phone: Potassium [Moles/Vol] 4.3 mmol/L 3.5 - 5.3 [facility] 205 DO Work Phone: [phone] Protein [Mass/Vol] 6.0 g/dL below low threshold 6.4 - 8.2 [facility] 205 DO Work Phone: Sodium [Moles/Vol] 141 mmol/L 136 - 145 [facility] [place] 205 DO Work Phone: TSH Qn 2.18 m[IU]/L See Below [facility] 205 DO Work Phone: [phone] Comment on above: Reference Range: 0.4 4 - 3.98 TSH testing is performed using different testing methodology at [facility] than at other [facility]. Direct result comparisons should only be made within the same method. Urea nitrogen [Mass/Vol] 19 mg/dL 6 - 23 [facility] DO Work Phone: Lipid Panelon 11-04-2021 Cholesterol [Mass/Vol] 150 mg/dL 0 - 199 [facility] DO Work Phone: Comment on above: . [...] dosing. Cholesterol in HDL [Mass/Vol] 62.0 mg/dL [facility] DO Work Phone: Comment on above: . AGE VERY LOW LOW N ORMAL HIGH 0-19 Y < 35 < 40 40-45 ---- 20- 24 Y ---- < 40 >45 ---- >24 Y ---- < 40 40-60 >60. Cholesterol in LDL [Mass/Vol] 66 mg/dL 0 - 99 [facility] DO Work Phone: Comment on above: . NEAR BORD AGE JEFFREY RABLE OPTIMAL HIGH HIGH VERY HIGH 0-19 Y 0 - 109 --- 110-129 >/= 130 ---- 20-24 Y 0 - 119 --- 120-159 >/= 160 ---- >24 Y 0 - 99 100-129 130-159 160-189 >/=190. Cholesterol.total/ Cholesterol in HDL [Mass ratio] 2.4 {ratio} [facility] DO Work Phone: Comment on above: REF VALUESDESIRABLE < 3.4HIGH RISK > 5.0 Triglyceride [Mass/Vol] 108 mg/dL 0 - 149 [facility] DO Work Phone: Comment on above: . [...] Lipid Panel 22 mg/dL 0 - 40 [place] [address] DO Work Phone: No Panel Informationon 11-04 79 {mL/min/1.73m2} >90 [place] [address] DO Work Phone: Comment on above: CALCULATIONS OF TAYE MATED GFR ARE PERFORMED USING THE 2020 CKD-EPI STUDY REFIT EQUATION WITHOUT THE RACE VARIABLE FOR THE IDMS-TRACEABLE CREATININE METHODS.https://jasn.asnjournals.org/content///ASN.2 638855670 Vitamin B12, Serumon 022 Cobalamin (Vitamin B12) [Mass/Vol] 695 pg/mL 211 - 911 [place] [address] DO Work Phone: Complete Blood Count + Diffe rentialon 07-13-2021 Basophils/100 WBC (Bld) 0.6 % 0.0 - 2.0 [facility] land Work Phone: Erythrocyte distribution width (RBC) [Ratio] 15.9 % above high threshold See Below [facility]: Comment on above: Reference Range: 11. 5 - 14.5 Hematocrit (Bld) [Volume fraction] 34.7 % below low threshold See Below [facility] Phone: Comment on above: Reference Range: 36. 0 - 46.0 Hemoglobin (Bld) [Mass/Vol] 11.2 g/dL below low threshold See Below [facility] Phone: Comment on above: Reference Range: 12. 0 - 16.0 Lymphocytes/100 WBC (Bld) 20.0 % See Below [facility] Phone: Comment on above: Reference Range: 13. 0 - 44.0 MCHC (RBC) [Mass/Vol] 32.4 g/dL See Below [facility] Phone: Comment on above: Reference Range: 32. 0 - 36.0 MCV (RBC) [Entitic vol] 94 fL 80 - 100 [facility] Phone: Monocytes/100 WBC (Bld) 7.0 % 2.0 - 10.0 [facility] Phone: Neutrophils/100 WBC (Bld) 66.8 % See Below [facility] Phone: Comment on above: Reference Range: 40. 0 - 80.0 Platelets (Bld) [#/Vol] 312 10*3/uL 150 - 450 [facility] Phone: RBC (Bld) [#/Vol] 3.68 {x10E12/L} below low threshold See Below [facility] Phone: Comment on above: Reference Range: 4.0 0 - 5.20 WBC (Bld) [#/Vol] 5.0 10*3/uL 4.4 - 11.3 [facility] CenterCasp[facility] LearningJesenia [employer] Phone: Complete Blood Count + Differential 0.00 {x10E9/L} See Below [facility] [employer] Phone: Comment on above: Reference Range: 0.0 0 - 0.10 Complete Blood Count + Differential 0.30 {x10E9/L} See Below [facility] [employer] Phone: Comment on above: Reference Range: 0.0 0 - 0.70 Reference Range: 0.1 0 - 1.00 Complete Blood Count + Differential 1.00 {x10E9/L} below low threshold See Below [facility] [employer] Phone: Comment on above: Reference Range: 1.2 0 - 4.80 Complete Blood Count + Differential 3.40 {x10E9/L} See Below [facility] [employer] Phone: Comment on above: Reference Range: 1.2 0 - 7.70 Percent differential counts (%) should be interpreted in the context of the absolute cell counts (cells/L). Complete Blood Count + Differential 5.6 % 0.0 - 6.0 [facility] [employer] Phone: Complete Blood Count + Differential 0.1 {/100_WBC} [facility] [employer] Phone: Laboratory - Chemistry and C hemistry - challengeon 07-13-2021 Albumin BCP dye [Mass/Vol] 3.8 g/dL 3.4 - 5.0 [facility] [employer] Phone: ALP [Catalytic activity/Vol] 60 U/L 33 - 136 [facility] [employer] Phone: ALT With P-5'-P [Catalytic activity/Vol] 16 U/L 7 - 45 [facility] [employer] Phone: Comment on above: Patients treated wit h Sulfasalazine may generate falsely decreased results for ALT. Anion gap [Moles/Vol] 8 mmol/L below low threshold 10 - 20 [facility] [employer] Work Phone: AST With P-5'-P [Catalytic activity/Vol] 25 U/L 9 - 39 [facility] [employer] Work Phone: Bilirubin [Mass/Vol] 0.5 mg/dL 0.0 - 1.2 [facility] [employer] Work Phone: Calcium [Mass/Vol] 9.3 mg/dL 8.6 - 10.3 [facility] [employer] Work Phone: Chloride [Moles/Vol] 104 mmol/L 98 - 107 [facility] [employer] Work Phone: CO2 [Moles/Vol] 32 mmol/L 21 - 32 [facility] [employer] Work Phone: Creatinine [Mass/Vol] 0.79 mg/dL See Below [facility] [employer] Work Phone: Comment on above: Reference Range: 0.5 0 - 1.05 Glucose [Mass/Vol] 82 mg/dL 74 - 99 [facility] [employer] Work Phone: Potassium [Moles/Vol] 4.1 mmol/L 3.5 - 5.3 [facility] [employer] Work Phone: Protein [Mass/Vol] 6.0 g/dL below low threshold 6.4 - 8.2 [facility] [employer] Work Phone: Sodium [Moles/Vol] 140 mmol/L 136 - 145 [facility] [employer] Work Phone: Urea nitrogen [Mass/Vol] 27 mg/dL above high threshold 6 - 23 [facility] [employer] Work Phone: No Panel Informationon 04-18 -2022 81 {mL/min/1.73m2} >[address] [facility] Phone: Comment on above: CALCULATIONS OF TAYE MATED GFR ARE PERFORMED USING THE 2020 CKD-EPI STUDY REFIT EQUATION WITHOUT THE RACE VARIABLE FOR THE IDMS-TRACEABLE CREATININE METHODS.https://jasn.asnjournals.org/content//ASN.2 429577620 Tobacco Screening.on 022 Fall risk assessment a) No falls within the last year [employer] [place] Phone: Tobacco use status CPHS b) No [employer] [place] Phone: Complete Blood Count + Diffe rentialon 05-12-2021 Basophils/100 WBC (Bld) 0.3 % 0.0 - 2.0 [employer] Phone: Erythrocyte distribution width (RBC) [Ratio] 15.3 % above high threshold See Below [employer] [place] Phone: Comment on above: Reference Range: 11. 5 - 14.5 Hematocrit (Bld) [Volume fraction] 37.0 % See Below [employer] [place] Phone: Comment on above: Reference Range: 36. 0 - 46.0 Hemoglobin (Bld) [Mass/Vol] 11.9 g/dL below low threshold See Below [employer] Phone: Comment on above: Reference Range: 12. 0 - 16.0 Lymphocytes/100 WBC (Bld) 14.3 % See Below [employer] [facility]San AntonioKins[facility] Phone: Comment on above: Reference Range: 13. 0 - 44.0 MCHC (RBC) [Mass/Vol] 32.1 g/dL See Below [employer] [place] Phone: Comment on above: Reference Range: 32. 0 - 36.0 MCV (RBC) [Entitic vol] 95 fL 80 - 100 [facility] Phone: Monocytes/100 WBC (Bld) 5.9 % 2.0 - 10.0 [facility] [employer] Phone: Neutrophils/100 WBC (Bld) 77.3 % See Below [facility] Phone: Comment on above: Reference Range: 40. 0 - 80.0 Platelets (Bld) [#/Vol] 321 10*3/uL 150 - 450 [facility] Phone: RBC (Bld) [#/Vol] 3.89 {x10E12/L} below low threshold See Below [facility] [employer] Phone: Comment on above: Reference Range: 4.0 0 - 5.20 WBC (Bld) [#/Vol] 7.3 10*3/uL 4.4 - 11.3 [facility] Phone: Complete Blood Count + Differential 0.00 {x10E9/L} See Below [facility] [employer] Phone: Comment on above: Reference Range: 0.0 0 - 0.10 Complete Blood Count + Differential 0.20 {x10E9/L} See Below [facility] [employer] Phone: Comment on above: Reference Range: 0.0 0 - 0.70 Complete Blood Count + Differential 0.40 {x10E9/L} See Below [facility] Phone: Comment on above: Reference Range: 0.1 0 - 1.00 Complete Blood Count + Differential 1.00 {x10E9/L} below low threshold See Below [facility] Phone: Comment on above: Reference Range: 1.2 0 - 4.80 Complete Blood Count + Differential 5.60 {x10E9/L} See Below [facility] [employer] Work Phone: Comment on above: Reference Range: 1.2 0 - 7.70 Percent differential counts (%) should be interpreted in the context of the absolute cell counts (cells/L). Complete Blood Count + Differential 2.2 % 0.0 - 6.0 [facility] [employer] Work Phone: Laboratory - Chemistry and C hemistry - challengeon 05-12-2021 Albumin BCP dye [Mass/Vol] 3.8 g/dL 3.4 - 5.0 [facility] [employer] Work Phone: ALP [Catalytic activity/Vol] 55 U/L 33 - 136 [facility] Work Phone: ALT With P-5'-P [Catalytic activity/Vol] 18 U/L 7 - 45 [facility] [employer] Phone: Comment on above: Patients treated wit h Sulfasalazine may generate falsely decreased results for ALT. Anion gap [Moles/Vol] 9 mmol/L below low threshold 10 - 20 [facility] [employer] Phone: AST With P-5'-P [Catalytic activity/Vol] 23 U/L 9 - 39 [facility] [employer] Work Phone: Bilirubin [Mass/Vol] 0.6 mg/dL 0.0 - 1.2 [facility] [employer] Work Phone: Calcium [Mass/Vol] 9.2 mg/dL 8.6 - 10.3 [facility] [employer] Work Phone: Chloride [Moles/Vol] 104 mmol/L 98 - 107 [facility] [employer] Work Phone: CO2 [Moles/Vol] 31 mmol/L 21 - 32 [facility] [employer] Work Phone: Creatinine [Mass/Vol] 0.83 mg/dL See Below [facility] Work Phone: Comment on above: Reference Range: 0.5 0 - 1.05 Glucose [Mass/Vol] 91 mg/dL 74 - 99 [facility] [employer] Work Phone: Potassium [Moles/Vol] 4.0 mmol/L 3.5 - 5.3 [facility] [employer] Phone: Protein [Mass/Vol] 6.4 g/dL 6.4 - 8.2 [facility] [employer] Work Phone: Sodium [Moles/Vol] 140 mmol/L 136 - 145 [facility] [employer] Phone: TSH Qn 2.34 m[IU]/L See Below [facility] [employer] Phone: Comment on above: Reference Range: 0.4 4 - 3.98 TSH testing is performed using different testing methodology at [facility] than at other [facility]. Direct result comparisons should only be made within the same method. Urea nitrogen [Mass/Vol] 20 mg/dL 6 - 23 [facility] [employer] Phone: Laboratory - Drug toxicology on 05-12-2021 Amphetamines Screen Ql (U) Negative NEGATIVE [facility] [employer] Phone: Comment on above: CUTOFF LEVEL: 500 NG /ML Cross-reactivity has been reported with high concentrations of the following drugs: buproprion, chloroquine, chlorpromazine, ephedrine, mephentermine, fenfluramine, phentermine, phenylpropanolamine, pseudoephedrine, and propranolol. Barbiturates Screen Ql (U) Negative NEGATIVE [facility] [employer] Phone: Comment on above: CUTOFF LEVEL: 200 NG /ML Benzodiazepines Ql (U) Negative NEGATIVE [facility] [employer] Phone: Comment on above: CUTOFF LEVEL: 200 NG /ML Benzoylecgonine Screen Ql (U) Negative NEGATIVE [facility] Phone: Comment on above: CUTOFF LEVEL: 150 NG /ML Cannabinoids Screen Ql (U) Negative NEGATIVE [facility] LearningLa [facility] Phone: Comment on above: CUTOFF LEVEL: 50 NG/ ML Methadone Screen Ql (U) Negative NEGATIVE [facility]La [facility] Phone: Comment on above: CUTOFF LEVEL: 150 NG /ML The metabolite Y-mgodr-fjicwfdwfgcobd (LAAM) is not detected by this method in concentrations that would be found in the urine of patients on LAAM therapy. Opiates Screen Ql (U) Negative NEGATIVE [employer]San [place] BeLocal [facility] Phone: Comment on above: CUTOFF LEVEL: 300 NG /ML The opiate screen does not detect fentanyl, meperidine, or tramadol. Oxycodone is not consistently detected (refer to Oxycodone Screen, Urine result). oxyCODONE+oxyMORph one Screen Ql (U) Negative NEGATIVE [facility] Phone: Comment on above: CUTOFF LEVEL: 100 NG /ML This test will accurately detect both oxycodone and oxymorphone. Phencyclidine Ql (U) Negative NEGATIVE [facility] Phone: Comment on above: CUTOFF LEVEL: 25 NG/ ML Cross-reactivity has been reported with dextromethorphan. Lipid Panelon 05-12-2021 Cholesterol [Mass/Vol] 134 mg/dL 0 - 199 [facility] Phone: Comment on above: . AGE DESIRABLE [...] dosing. Cholesterol in HDL [Mass/Vol] 64.0 mg/dL [employer] Phone: Comment on above: . AGE VERY LOW LOW N ORMAL HIGH 0-19 Y < 35 < 40 40-45 ---- 20- 24 Y ---- < 40 >45 ---- >24 Y ---- < 40 40-60 >60. Cholesterol in LDL [Mass/Vol] 49 mg/dL 0 - 99 [employer] Phone: Comment on above: . NEAR BORD AGE JEFFREY RABLE OPTIMAL HIGH HIGH VERY HIGH 0-19 Y 0 - 109 --- 110-129 >/= 130 ---- 20-24 Y 0 - 119 --- 120-159 >/= 160 ---- >24 Y 0 - 99 100-129 130-159 160-189 >/=190. Cholesterol.total/ Cholesterol in HDL [Mass ratio] 2.1 {ratio} [employer] Phone: Comment on above: REF VALUESDESIRABLE < 3.4HIGH RISK > 5.0 Triglyceride [Mass/Vol] 103 mg/dL 0 - 149 [employer] Phone: Comment on above: . AGE DESIRABLE [...] Lipid Panel 21 mg/dL 0 - 40 [employer] Phone: No Panel Informationon 05-12 76 {mL/min/1.73m2} >[address] [facility] CampEasy Phone: Comment on above: CALCULATIONS OF TAYE MATED GFR ARE PERFORMED USING THE 2020 CKD-EPI STUDY REFIT EQUATION WITHOUT THE RACE VARIABLE FOR THE IDMS-TRACEABLE CREATININE METHODS.https://jasn.asnjournals.org/content//ASN.2 196941122 Negative NEGATIVE [employer]San [place] BeLocal [facility] Phone: Comment on above: CUTOFF LEVEL: 1 NG/M L The performance characteristics of this test have been determined by the individual laboratory site where testing is performed. This test has not been cleared or approved by the FDA; however, the FDA has determined that such clearance is not necessary. SEE BELOW [facility]La [facility] Phone: Comment on above: Drug screen results [...] pg/mL above high threshold 211 - 911 [facility] LearningSan [place] BeLocal [facility] Phone: Complete Blood Count + Diffe rentialon 04-14-2021 Basophils/100 WBC (Bld) 0.5 % 0.0 - 2.0 [employer]San [place] BeLocal [facility] Phone: Erythrocyte distribution width (RBC) [Ratio] 15.6 % above high threshold See Below [facility] Work Phone: Comment on above: Reference Range: 11. 5 - 14.5 Hematocrit (Bld) [Volume fraction] 37.1 % See Below [facility] Phone: Comment on above: Reference Range: 36. 0 - 46.0 Hemoglobin (Bld) [Mass/Vol] 12.0 g/dL See Below [facility] Work Phone: Comment on above: Reference Range: 12. 0 - 16.0 Lymphocytes/100 WBC (Bld) 18.5 % See Below [facility] Phone: Comment on above: Reference Range: 13. 0 - 44.0 MCHC (RBC) [Mass/Vol] 32.2 g/dL See Below [facility] Phone: Comment on above: Reference Range: 32. 0 - 36.0 MCV (RBC) [Entitic vol] 96 fL 80 - 100 [facility] Work Phone: Monocytes/100 WBC (Bld) 6.6 % 2.0 - 10.0 [facility] Phone: Neutrophils/100 WBC (Bld) 72.2 % See Below [facility] Phone: Comment on above: Reference Range: 40. 0 - 80.0 Platelets (Bld) [#/Vol] 320 10*3/uL 150 - 450 [facility] Work Phone: RBC (Bld) [#/Vol] 3.86 {x10E12/L} below low threshold See Below [facility] Phone: Comment on above: Reference Range: 4.0 0 - 5.20 WBC (Bld) [#/Vol] 5.2 10*3/uL 4.4 - 11.3 [facility] Work Phone: Complete Blood Count + Differential 3.80 {x10E9/L} See Below [facility] [employer] Phone: Comment on above: Reference Range: 1.2 0 - 7.70 Percent differential counts (%) should be interpreted in the context of the absolute cell counts (cells/L). Complete Blood Count + Differential 2.2 % 0.0 - 6.0 [facility] [employer] Phone: Complete Blood Count + Differential 0.00 {x10E9/L} See Below [facility] [employer] Phone: Comment on above: Reference Range: 0.0 0 - 0.10 Complete Blood Count + Differential 0.10 {x10E9/L} See Below [facility] [employer] Phone: Comment on above: Reference Range: 0.0 0 - 0.70 Complete Blood Count + Differential 0.30 {x10E9/L} See Below [facility] [employer] Phone: Comment on above: Reference Range: 0.1 0 - 1.00 Complete Blood Count + Differential 1.00 {x10E9/L} below low threshold See Below [facility] [employer] Phone: Comment on above: Reference Range: 1.2 0 - 4.80 Laboratory - Chemistry and C hemistry - challengeon 04-14-2021 Albumin BCP dye [Mass/Vol] 3.9 g/dL 3.4 - 5.0 [facility] [employer] Phone: ALP [Catalytic activity/Vol] 53 U/L 33 - 136 [facility] [employer] Phone: ALT With P-5'-P [Catalytic activity/Vol] 30 U/L 7 - 45 [facility] [employer] Phone: Comment on above: Patients treated wit h Sulfasalazine may generate falsely decreased results for ALT. Anion gap [Moles/Vol] 10 mmol/L 10 - 20 [facility] [employer] Work Phone: AST With P-5'-P [Catalytic activity/Vol] 38 U/L 9 - 39 [facility] [employer] Work Phone: Bilirubin [Mass/Vol] 0.7 mg/dL 0.0 - 1.2 [facility] [employer] Work Phone: Calcium [Mass/Vol] 9.1 mg/dL 8.6 - 10.3 [facility] [employer] Work Phone: Chloride [Moles/Vol] 104 mmol/L 98 - 107 [facility] [employer] Work Phone: CO2 [Moles/Vol] 30 mmol/L 21 - 32 [facility] [employer] Work Phone: Creatinine [Mass/Vol] 0.79 mg/dL See Below [facility] [employer] Work Phone: Comment on above: Reference Range: 0.5 0 - 1.05 Glucose [Mass/Vol] 81 mg/dL 74 - 99 [facility] [employer] Work Phone: Potassium [Moles/Vol] 3.9 mmol/L 3.5 - 5.3 [facility] [employer] Work Phone: Protein [Mass/Vol] 6.3 g/dL below low threshold 6.4 - 8.2 [facility] [employer] Work Phone: Sodium [Moles/Vol] 140 mmol/L 136 - 145 [facility] [employer] Work Phone: Urea nitrogen [Mass/Vol] 21 mg/dL 6 - 23 [facility] [employer] Work Phone: No Panel Informationon 04-14 81 {mL/min/1.73m2} >90 [facility] [employer] Work Phone: Comment on above: CALCULATIONS OF TAYE MATED GFR ARE PERFORMED USING THE 2020 CKD-EPI STUDY REFIT EQUATION WITHOUT THE RACE VARIABLE FOR THE IDMS-TRACEABLE CREATININE METHODS.https://jasn.asnjournals.org/content//ASN.2 309064877 Complete Blood Count + Diffe rentialon 01-07-2021 Basophils/100 WBC (Bld) 0.6 % 0.0 - 2.0 [employer]San [place] [facility] [facility] Phone: Erythrocyte distribution width (RBC) [Ratio] 14.7 % above high threshold See Below [employer]San [place] BeLocal [facility] Phone: Comment on above: Reference Range: 11. 5 - 14.5 Hematocrit (Bld) [Volume fraction] 36.0 % See Below [employer]San [place] BeLocal [facility] Phone: Comment on above: Reference Range: 36. 0 - 46.0 Hemoglobin (Bld) [Mass/Vol] 11.5 g/dL below low threshold See Below [employer]San [place] Be[employer] [facility] Phone: Comment on above: Reference Range: 12. 0 - 16.0 Lymphocytes/100 WBC (Bld) 30.1 % See Below [employer]San [place] BeLocal [facility] Phone: Comment on above: Reference Range: 13. 0 - 44.0 MCHC (RBC) [Mass/Vol] 32.0 g/dL See Below [facility] LearningLa [facility] Phone: Comment on above: Reference Range: 32. 0 - 36.0 MCV (RBC) [Entitic vol] 98 fL 80 - 100 [employer]San AntonioKins[employer] [facility] Phone: Monocytes/100 WBC (Bld) 6.2 % 2.0 - 10.0 [employer]San AntonioK[employer] [facility] Phone: Neutrophils/100 WBC (Bld) 58.5 % See Below [employer]San [place] [facility] [facility] Phone: Comment on above: Reference Range: 40. 0 - 80.0 Platelets (Bld) [#/Vol] 265 10*3/uL 150 - 450 [facility] [employer] Phone: RBC (Bld) [#/Vol] 3.69 {x10E12/L} below low threshold See Below [facility] [employer] Phone: Comment on above: Reference Range: 4.0 0 - 5.20 WBC (Bld) [#/Vol] 4.4 10*3/uL 4.4 - 11.3 [facility] [employer] Phone: Complete Blood Count + Differential 0.00 {x10E9/L} See Below [facility] [employer] Phone: Comment on above: Reference Range: 0.0 0 - 0.10 Complete Blood Count + Differential 0.20 {x10E9/L} See Below [facility] [employer] Phone: Comment on above: Reference Range: 0.0 0 - 0.70 Complete Blood Count + Differential 0.30 {x10E9/L} See Below [facility] [employer] Phone: Comment on above: Reference Range: 0.1 0 - 1.00 Complete Blood Count + Differential 1.30 {x10E9/L} See Below [facility] [employer] Phone: Comment on above: Reference Range: 1.2 0 - 4.80 Complete Blood Count + Differential 2.60 {x10E9/L} See Below [facility] [employer] Phone: Comment on above: Reference Range: 1.2 0 - 7.70 Percent differential counts (%) should be interpreted in the context of the absolute cell counts (cells/L). Complete Blood Count + Differential 4.6 % 0.0 - 6.0 [facility] [employer] Phone: C Telopeptide, Beta Cross Li nkedon 12-31-2020 C Telopeptide, Beta Cross Linked 342 pg/mL [facility] [employer] Work Phone: Comment on above: Postmenopausal Femal es: 104-1008 pg/mLREFERENCE INTERVAL: C-Telopeptide, Svfv-Shanm-Sutkem, SerumAccess complete set of age- and/or gender-specific reference intervals for this test in the [facility] Test Directory ([employer]).Performed By: [facility] [place] [id number] Director: Munira Hurt MD C Telopeptide, Beta Cross Linked Canceled 10 - [facility] [employer] Work Phone: Comment on above: CALCULATIONS OF [...] dye [Mass/Vol] 3.8 g/dL 3.4 - 5.0 [facility] [employer] Work Phone: Albumin BCP dye [Mass/Vol] Canceled 3.4 - 5.0 [facility] [employer] Work Phone: Comment on above: This is a corrected result. Previous value was 3.8, verified at 12/31/2020 09:09 ALP [Catalytic activity/Vol] 66 U/L 33 - 136 [facility] [employer] Work Phone: ALP [Catalytic activity/Vol] Canceled 33 - 136 [facility] [employer] Work Phone: Comment on above: This is a corrected result. Previous value was 66, verified at 12/31/2020 09:09 ALT With P-5'-P [Catalytic activity/Vol] 35 U/L 7 - 45 [facility] Work Phone: Comment on above: Patients treated wit h Sulfasalazine may generate falsely decreased results for ALT. ALT With P-5'-P [Catalytic activity/Vol] Canceled 7 - 45 [facility] [employer] Work Phone: Comment on above: Patients treated wit h Sulfasalazine may generate falsely decreased results for ALT.This is a corrected result. Previous value was 35, verified at 12/31/2020 09:09 Anion gap [Moles/Vol] 7 mmol/L below low threshold 10 - 20 [facility] Work Phone: AST With P-5'-P [Catalytic activity/Vol] 39 U/L 9 - 39 [facility] [employer] Work Phone: AST With P-5'-P [Catalytic activity/Vol] Canceled 9 - 39 [facility] Work Phone: Comment on above: This is a corrected result. Previous value was 39, verified at 12/31/2020 09:09 Bilirubin [Mass/Vol] 0.6 mg/dL 0.0 - 1.2 [facility] [employer] Work Phone: Bilirubin [Mass/Vol] Canceled 0.0 - 1.2 [facility] [employer] Phone: Comment on above: This is a corrected result. Previous value was 0.6, verified at 12/31/2020 09:09 Calcium [Mass/Vol] 9.3 mg/dL 8.6 - 10.3 [facility] [employer] Work Phone: Calcium [Mass/Vol] Canceled 8.6 - 10.3 [facility] Work Phone: Comment on above: This is a corrected result. Previous value was 9.3, verified at 12/31/2020 09:09 Chloride [Moles/Vol] 105 mmol/L 98 - 107 [facility] Work Phone: Chloride [Moles/Vol] Canceled 98 - 107 [facility] Work Phone: Comment on above: This is a corrected result. Previous value was 105, verified at 12/31/2020 09:09 CO2 [Moles/Vol] 31 mmol/L 21 - 32 [facility] Work Phone: CO2 [Moles/Vol] Canceled 21 - 32 [facility] Work Phone: Comment on above: This is a corrected result. Previous value was 31, verified at 12/31/2020 09:09 Collagen crosslinked N-telopeptide/Crea tinine (U) [Molar ratio] 26 1 [facility] Work Phone: Comment on above: INTERPRETIVE INFORMA TION: N-Telopeptide, Cross Linked, UrineNTx Units = nM BCE/mM creatinineA decrease of 30-40% from the NTx baseline after 3 months of therapy is a typical response to anti-resorptive therapy.NTx = Cross-linked N-telopeptide of Type I CollagenBCE = Bone Collagen EquivalentAccess complete set of age- and/or gender-specific reference intervals for this test in the [facility] Directory ([employer]). Creatinine (U) [Mass/Vol] 69 mg/dL [facility] Work Phone: Comment on above: Performed By: KEYA Marcelino [email or web address] [place], [place] [address] Director: Munira Hurt MD Creatinine [Mass/Vol] 0.77 mg/dL See Below [facility] Work Phone: Comment on above: Reference Range: 0.5 0 - 1.05 Creatinine [Mass/Vol] Canceled See Below [facility] Work Phone: Comment on above: Reference Range: 0.5 0 - 1.05This is a corrected result. Previous value was 0.77, verified at 12/31/2020 09:09 Glucose [Mass/Vol] 92 mg/dL 74 - 99 [facility] [employer] Work Phone: Glucose [Mass/Vol] Canceled 74 - 99 [facility] [employer] Work Phone: Comment on above: This is a corrected result. Previous value was 92, verified at 12/31/2020 09:09 Potassium [Moles/Vol] 4.1 mmol/L 3.5 - 5.3 [facility] [employer] Work Phone: Potassium [Moles/Vol] Canceled 3.5 - 5.3 [facility] [employer] Work Phone: Comment on above: This is a corrected result. Previous value was 4.1, verified at 12/31/2020 09:09 Protein [Mass/Vol] 6.1 g/dL below low threshold 6.4 - 8.2 [facility] [employer] Work Phone: Protein [Mass/Vol] Canceled 6.4 - 8.2 [facility] [employer] Phone: Comment on above: This is a corrected result. Previous value was 6.1, verified at 12/31/2020 09:09 Sodium [Moles/Vol] 139 mmol/L 136 - 145 [facility] [employer] Work Phone: Sodium [Moles/Vol] Canceled 136 - 145 [facility] [employer] Work Phone: Comment on above: This is a corrected result. Previous value was 139, verified at 12/31/2020 09:09 Urea nitrogen [Mass/Vol] 23 mg/dL 6 - 23 [facility] [employer] Work Phone: Urea nitrogen [Mass/Vol] Canceled 6 - 23 [facility] Work Phone: Comment on above: This is a corrected result. Previous value was 23, verified at 12/31/2020 09:09 No Panel Informationon 12-31 >60 >60 [facility] [employer] Work Phone: Comment on above: CALCULATIONS OF TAYE MATED GFR ARE PERFORMED USING THE MDRD STUDY EQUATION FOR THE IDMS-TRACEABLE CREATININE METHODS. CLIN CHEM 2007;53:766-72 TSH - Thyroid Stimulating Ho keagan, Serumon 12-31-2020 TSH Qn 1.74 m[IU]/L See Below [facility] [employer] Work Phone: Comment on above: Reference Range: 0.4 4 - 3.98 TSH testing is performed using different testing methodology at [facility] than at other [facility]. Direct result comparisons should only be made within the same method. TSH Qn Canceled See Below [facility] [employer] Work Phone: Comment on above: Reference Range: 0.4 4 - 3.98 TSH testing is performed using different testing methodology at [facility] than at other [facility]. Direct result comparisons should only be made within the same method.This is a corrected result. Previous value was 1.74, verified at 12/31/2020 09:07 Vitamin D 25-Hydroxyon 12-31 25-hydroxyvitamin D3 [Mass/Vol] 49 ng/mL [facility] [employer] Work Phone: Comment on above: .DEFICIENCY: < 20 NG /MLINSUFFICIENCY: 20-29 NG/MLSUFFICIENCY: 30-100 NG/MLTHIS ASSAY ACCURATELY QUANTIFIES THE SUM OFVITAMIN D3, 25-HYDROXY AND VIT D2,25-HYDROXY. 25-hydroxyvitamin D3 [Mass/Vol] Canceled [facility] [employer] Work Phone: Comment on above: .DEFICIENCY: < 20 NG /MLINSUFFICIENCY: 20-29 NG/MLSUFFICIENCY: 30-100 NG/MLTHIS ASSAY ACCURATELY QUANTIFIES THE SUM OFVITAMIN D3, 25-HYDROXY AND VIT D2,25-HYDROXY.This is a corrected result. Previous value was 49, verified at 12/31/2020 09:18 Tobacco Screening.on 021 Fall risk assessment b) One or more falls in the last year [employer] Phone: Tobacco use status CPHS b) No [employer] Phone: Complete Blood Count + Diffe rentialon 10-31-2020 Basophils/100 WBC (Bld) 0.6 % 0.0 - 2.0 [employer] Phone: Erythrocyte distribution width (RBC) [Ratio] 15.0 % above high threshold See Below [employer] Phone: Comment on above: Reference Range: 11. 5 - 14.5 Hematocrit (Bld) [Volume fraction] 38.3 % See Below [employer] Phone: Comment on above: Reference Range: 36. 0 - 46.0 Hemoglobin (Bld) [Mass/Vol] 12.6 g/dL See Below [employer] Phone: Comment on above: Reference Range: 12. 0 - 16.0 Lymphocytes/100 WBC (Bld) 20.8 % See Below [employer] Phone: Comment on above: Reference Range: 13. 0 - 44.0 MCHC (RBC) [Mass/Vol] 32.9 g/dL See Below [employer] Phone: Comment on above: Reference Range: 32. 0 - 36.0 MCV (RBC) [Entitic vol] 97 fL 80 - 100 [employer] Phone: Monocytes/100 WBC (Bld) 7.3 % 2.0 - 10.0 [employer] Phone: Neutrophils/100 WBC (Bld) 67.4 % See Below [facility] Phone: Comment on above: Reference Range: 40. 0 - 80.0 Platelets (Bld) [#/Vol] 264 10*3/uL 150 - 450 [facility] [employer] Phone: RBC (Bld) [#/Vol] 3.97 {x10E12/L} below low threshold See Below [facility] Phone: Comment on above: Reference Range: 4.0 0 - 5.20 WBC (Bld) [#/Vol] 5.5 10*3/uL 4.4 - 11.3 [facility] Phone: Complete Blood Count + Differential 0.00 {x10E9/L} See Below [facility] [employer] Phone: Comment on above: Reference Range: 0.0 0 - 0.10 Complete Blood Count + Differential 0.20 {x10E9/L} See Below [facility] [employer] Phone: Comment on above: Reference Range: 0.0 0 - 0.70 Complete Blood Count + Differential 0.40 {x10E9/L} See Below [facility] [employer] Phone: Comment on above: Reference Range: 0.1 0 - 1.00 Complete Blood Count + Differential 1.20 {x10E9/L} See Below [facility] [employer] Phone: Comment on above: Reference Range: 1.2 0 - 4.80 Complete Blood Count + Differential 3.70 {x10E9/L} See Below [facility] Phone: Comment on above: Reference Range: 1.2 0 - 7.70 Percent differential counts (%) should be interpreted in the context of the absolute cell counts (cells/L). Complete Blood Count + Differential 3.9 % 0.0 - 6.0 [facility] Work Phone: Laboratory - Chemistry and C hemistry - challengeon 10-31-2020 Albumin BCP dye [Mass/Vol] 4.0 g/dL 3.4 - 5.0 [facility] [employer] Work Phone: ALP [Catalytic activity/Vol] 70 U/L 33 - 136 [facility] Work Phone: ALT With P-5'-P [Catalytic activity/Vol] 21 U/L 7 - 45 [facility] Work Phone: Comment on above: Patients treated wit h Sulfasalazine may generate falsely decreased results for ALT. Anion gap [Moles/Vol] 9 mmol/L below low threshold 10 - 20 [facility] [employer] Work Phone: AST With P-5'-P [Catalytic activity/Vol] 26 U/L 9 - 39 [facility] [employer] Work Phone: Bilirubin [Mass/Vol] 0.6 mg/dL 0.0 - 1.2 [facility] Work Phone: Calcium [Mass/Vol] 9.4 mg/dL 8.6 - 10.3 [facility] [employer] Work Phone: Chloride [Moles/Vol] 105 mmol/L 98 - 107 [facility] Work Phone: CO2 [Moles/Vol] 30 mmol/L 21 - 32 [facility] [employer] Work Phone: Creatinine [Mass/Vol] 0.68 mg/dL See Below [facility] Work Phone: Comment on above: Reference Range: 0.5 0 - 1.05 Glucose [Mass/Vol] 95 mg/dL 74 - 99 [facility] [employer] Work Phone: Potassium [Moles/Vol] 4.0 mmol/L 3.5 - 5.3 [facility] Phone: Protein [Mass/Vol] 6.4 g/dL 6.4 - 8.2 [facility] Phone: Sodium [Moles/Vol] 140 mmol/L 136 - 145 [facility] LearningJes[facility] [employer] Phone: TSH Qn 1.71 m[IU]/L See Below [facility] [employer] Phone: Comment on above: Reference Range: 0.4 4 - 3.98 TSH testing is performed using different testing methodology at [facility] than at other [facility]. Direct result comparisons should only be made within the same method. Urea nitrogen [Mass/Vol] 26 mg/dL above high threshold 6 - 23 [facility] Phone: Lipid Panelon 10-31-2020 Cholesterol [Mass/Vol] 143 mg/dL 0 - 199 [facility] [employer] Phone: Comment on above: . AGE DESIRABLE [...] dosing. Cholesterol in HDL [Mass/Vol] 60.0 mg/dL [facility] [employer] Phone: Comment on above: . AGE VERY LOW LOW N ORMAL HIGH 0-19 Y < 35 < 40 40-45 ---- 20- 24 Y ---- < 40 >45 ---- >24 Y ---- < 40 40-60 >60. Cholesterol in LDL [Mass/Vol] 59 mg/dL 0 - 99 [employer] Phone: Comment on above: . NEAR BORD AGE JEFFREY RABLE OPTIMAL HIGH HIGH VERY HIGH 0-19 Y 0 - 109 --- 110-129 >/= 130 ---- 20-24 Y 0 - 119 --- 120-159 >/= 160 ---- >24 Y 0 - 99 100-129 130-159 160-189 >/=190. Cholesterol.total/ Cholesterol in HDL [Mass ratio] 2.4 {ratio} [employer] Phone: Comment on above: REF VALUESDESIRABLE < 3.4HIGH RISK > 5.0 Triglyceride [Mass/Vol] 119 mg/dL 0 - 149 [employer] Phone: Comment on above: . AGE DESIRABLE [...] Lipid Panel 24 mg/dL 0 - 40 [employer] Phone: No Panel Informationon 10-31 >60 >60 [employer] Phone: Comment on above: CALCULATIONS OF TAYE MATED GFR ARE PERFORMED USING THE MDRD STUDY EQUATION FOR THE IDMS-TRACEABLE CREATININE METHODS. CLIN CHEM 2007;53:766-72 Vitamin B12, Serumon 021 Cobalamin (Vitamin B12) [Mass/Vol] 760 pg/mL 211 - 911 [employer] Phone: Radiologyon 10-26-2020 XR Foot 3 Views Normal [facility] [employer] Phone: Mamm - Screening Mammogram w / Tomosynthesison 10-24-2020 MG Breast Screening Normal [facility] [employer] Phone: Complete Blood Count + Diffe rentialon 10-06-2020 Basophils/100 WBC (Bld) 0.5 % 0.0 - 2.0 [facility] [employer] Phone: Erythrocyte distribution width (RBC) [Ratio] 15.6 % above high threshold See Below [facility] [employer] Phone: Comment on above: Reference Range: 11. 5 - 14.5 Hematocrit (Bld) [Volume fraction] 36.6 % See Below [facility] [employer] Phone: Comment on above: Reference Range: 36. 0 - 46.0 Hemoglobin (Bld) [Mass/Vol] 11.7 g/dL below low threshold See Below [facility] [employer] Phone: Comment on above: Reference Range: 12. 0 - 16.0 Lymphocytes/100 WBC (Bld) 25.5 % See Below [facility] [employer] Phone: Comment on above: Reference Range: 13. 0 - 44.0 MCHC (RBC) [Mass/Vol] 32.0 g/dL See Below [facility] [employer] Phone: Comment on above: Reference Range: 32. 0 - 36.0 MCV (RBC) [Entitic vol] 98 fL 80 - 100 [facility] [employer] Phone: Monocytes/100 WBC (Bld) 8.1 % 2.0 - 10.0 [facility] [employer] Phone: Neutrophils/100 WBC (Bld) 61.2 % See Below [facility] Phone: Comment on above: Reference Range: 40. 0 - 80.0 Platelets (Bld) [#/Vol] 256 10*3/uL 150 - 450 [facility] Phone: RBC (Bld) [#/Vol] 3.76 {x10E12/L} below low threshold See Below [facility] [employer] Phone: Comment on above: Reference Range: 4.0 0 - 5.20 WBC (Bld) [#/Vol] 4.9 10*3/uL 4.4 - 11.3 [facility] [employer] Phone: Complete Blood Count + Differential 0.00 {x10E9/L} See Below [facility] [employer] Phone: Comment on above: Reference Range: 0.0 0 - 0.10 Complete Blood Count + Differential 0.20 {x10E9/L} See Below [facility] [employer] Phone: Comment on above: Reference Range: 0.0 0 - 0.70 Complete Blood Count + Differential 0.40 {x10E9/L} See Below [facility] [employer] Phone: Comment on above: Reference Range: 0.1 0 - 1.00 Complete Blood Count + Differential 1.20 {x10E9/L} See Below [facility] [employer] Phone: Comment on above: Reference Range: 1.2 0 - 4.80 Complete Blood Count + Differential 3.00 {x10E9/L} See Below [facility] [employer] Phone: Comment on above: Reference Range: 1.2 0 - 7.70 Percent differential counts (%) should be interpreted in the context of the absolute cell counts (cells/L). Complete Blood Count + Differential 4.7 % 0.0 - 6.0 [facility] [employer] Phone: Complete Blood Count + Differential 0.1 {/100_WBC} [facility] [employer] Work Phone: Laboratory - Chemistry and C hemistry - challengeon 10-06-2020 Albumin BCP dye [Mass/Vol] 3.8 g/dL 3.4 - 5.0 [facility] [employer] Work Phone: ALP [Catalytic activity/Vol] 60 U/L 33 - 136 [facility] [employer] Work Phone: ALT With P-5'-P [Catalytic activity/Vol] 19 U/L 7 - 45 [facility] [employer] Work Phone: Comment on above: Patients treated wit h Sulfasalazine may generate falsely decreased results for ALT. Anion gap [Moles/Vol] 8 mmol/L below low threshold 10 - 20 [facility] [employer] Work Phone: AST With P-5'-P [Catalytic activity/Vol] 26 U/L 9 - 39 [facility] [employer] Work Phone: Bilirubin [Mass/Vol] 0.6 mg/dL 0.0 - 1.2 [facility] [employer] Work Phone: Calcium [Mass/Vol] 9.4 mg/dL 8.6 - 10.3 [facility] [employer] Work Phone: Chloride [Moles/Vol] 106 mmol/L 98 - 107 [facility] [employer] Work Phone: CO2 [Moles/Vol] 30 mmol/L 21 - 32 [facility] [employer] Work Phone: Creatinine [Mass/Vol] 0.80 mg/dL See Below [facility] Work Phone: Comment on above: Reference Range: 0.5 0 - 1.05 Glucose [Mass/Vol] 95 mg/dL 74 - 99 [facility] [employer] Work Phone: Potassium [Moles/Vol] 4.1 mmol/L 3.5 - 5.3 [facility] [employer] Work Phone: Protein [Mass/Vol] 6.0 g/dL below low threshold 6.4 - 8.2 [facility] [employer] Phone: Sodium [Moles/Vol] 140 mmol/L 136 - 145 [facility] [employer] Work Phone: Urea nitrogen [Mass/Vol] 27 mg/dL above high threshold 6 - 23 [facility] [employer] Phone: No Panel Informationon 10-06 >60 >60 [facility] [employer] Phone: Comment on above: CALCULATIONS OF TAYE MATED GFR ARE PERFORMED USING THE MDRD STUDY EQUATION FOR THE IDMS-TRACEABLE CREATININE METHODS. CLIN CHEM 2007;53:766-72 No Panel Informationon 08-15 Please click on the link to view the study images Normal [facility] [employer] Phone: Otheron 05-02-2020 Please click on the link to view the study images Normal [facility] [employer] Phone: Otheron 04-29-2020 Interpreted by: JLMTME46/04/21 17:47MRN: [id number] Name: NARENDRA ARGUELLES STUDY:SPINE, LUMBOSACRAL CMPLT(BENDING); 04/29/2020 [...] Electronically signed by: CRIS 05/01/20 17:47 Normal [facility] Phone: Complete Blood Count + Diffe rentialon 04-21-2020 Basophils (Bld) [#/Vol] 0.00 {x10E9/L} See Below [facility] Phone: Comment on above: Reference Range: 0.0 0 - 0.10 Basophils/100 WBC (Bld) 0.6 % 0.0 - 2.0 [facility] Phone: Eosinophils (Bld) [#/Vol] 0.20 {x10E9/L} See Below [facility] [employer] Phone: Comment on above: Reference Range: 0.0 0 - 0.70 Eosinophils/100 WBC (Bld) 4.1 % 0.0 - 6.0 [facility] Phone: Erythrocyte distribution width (RBC) [Ratio] 14.7 % above high threshold See Below [facility] [employer] Phone: Comment on above: Reference Range: 11. 5 - 14.5 Hematocrit (Bld) [Volume fraction] 37.6 % See Below [facility] Phone: Comment on above: Reference Range: 36. 0 - 46.0 Hemoglobin (Bld) [Mass/Vol] 12.0 g/dL See Below [facility] [employer] Phone: Comment on above: Reference Range: 12. 0 - 16.0 Lymphocytes (Bld) [#/Vol] 1.30 {x10E9/L} See Below [facility] Phone: Comment on above: Reference Range: 1.2 0 - 4.80 Lymphocytes/100 WBC (Bld) 24.7 % See Below [facility] [employer] Phone: Comment on above: Reference Range: 13. 0 - 44.0 MCHC (RBC) [Mass/Vol] 31.8 g/dL below low threshold See Below [facility] [employer] Phone: Comment on above: Reference Range: 32. 0 - 36.0 MCV (RBC) [Entitic vol] 99 fL 80 - 100 [facility] [employer] Phone: Monocytes (Bld) [#/Vol] 0.30 {x10E9/L} See Below [facility] [employer] Phone: Comment on above: Reference Range: 0.1 0 - 1.00 Monocytes/100 WBC (Bld) 6.5 % 2.0 - 10.0 [facility] [employer] Phone: Neutrophils (Bld) [#/Vol] 3.40 {x10E9/L} See Below [facility] [employer] Phone: Comment on above: Reference Range: 1.2 0 - 7.70 Percent differential counts (%) should be interpreted in the context of the absolute cell counts (cells/L). Neutrophils/100 WBC (Bld) 64.1 % See Below [facility] [employer] Phone: Comment on above: Reference Range: 40. 0 - 80.0 Platelets (Bld) [#/Vol] 255 {x10E9/L} 150 - 450 [facility] [employer] Phone: RBC (Bld) [#/Vol] 3.82 {x10E12/L} below low threshold See Below [facility] [employer] Phone: Comment on above: Reference Range: 4.0 0 - 5.20 WBC (Bld) [#/Vol] 5.4 {x10E9/L} 4.4 - 11.3 [facility] Work Phone: WBC (Bld) [#/Vol] 0.2 {/100_WBC} [facility] [employer] Work Phone: Metabolic Panelon 04-21-2020 ALP [Catalytic activity/Vol] 53 U/L 33 - 136 [facility] [employer] Work Phone: Anion gap [Moles/Vol] 8 mmol/L below low threshold 10 - 20 [facility] [employer] Work Phone: Bilirubin [Mass/Vol] 0.5 mg/dL 0.0 - 1.2 [facility] [employer] Work Phone: Calcium [Mass/Vol] 9.0 mg/dL 8.6 - 10.3 [facility] [employer] Work Phone: Chloride [Moles/Vol] 106 mmol/L 98 - 107 [facility] [employer] Work Phone: CO2 [Moles/Vol] 29 mmol/L 21 - 32 [facility] [employer] Work Phone: Creatinine [Mass/Vol] 0.74 mg/dL See Below [facility] [employer] Work Phone: Comment on above: Reference Range: 0.5 0 - 1.05 Glucose [Mass/Vol] 86 mg/dL 74 - 99 [facility] [employer] Work Phone: Potassium [Moles/Vol] 3.9 mmol/L 3.5 - 5.3 [facility] [employer] Work Phone: Protein [Mass/Vol] 5.7 g/dL below low threshold 6.4 - 8.2 [facility] [employer] Work Phone: Sodium [Moles/Vol] 139 mmol/L 136 - 145 [facility] [employer] Work Phone: Urea nitrogen [Mass/Vol] 31 mg/dL above high threshold 6 - 23 [facility] Work Phone: Otheron 04-21-2020 Albumin BCP dye [Mass/Vol] 3.8 g/dL 3.4 - 5.0 [facility] Work Phone: ALT With P-5'-P [Catalytic activity/Vol] 18 U/L 7 - 45 [facility] Work Phone: Comment on above: Patients treated wit h Sulfasalazine may generate falsely decreased results for ALT. AST With P-5'-P [Catalytic activity/Vol] 22 U/L 9 - 39 [facility] Work Phone: >60 >60 [facility] Phone: Comment on above: CALCULATIONS OF TAYE MATED GFR ARE PERFORMED USING THE MDRD STUDY EQUATION FOR THE IDMS-TRACEABLE CREATININE METHODS. CLIN CHEM 2007;53:766-72 TSH - Thyroid Stimulating Ho keagan, Serumon 04-21-2020 TSH Qn 1.21 {mIU/L} See Below [facility] [employer] Phone: Comment on above: Reference Range: 0.4 4 - 3.98 TSH testing is performed using different testing methodology at [facility] than at other [facility]. Direct result comparisons should only be made within the same method. Mamm - Screening Mammogram w / Tomosynthesison 08-03-2019 MG Breast screening Interpreted by: EZEQUIEL ERICKSON08/03/19 08:42MRN: [id number] Name: NARENDRA ARGUELLES STUDY:Digital mammography screening with [...] signed by: EZEQUIEL ERICKSON 08/03/19 08:42 Normal [facility] [employer] Work Phone: Comment on above: ORDER REVISED TO A D IGITAL MAMM SCREENING W/ MARINA BY RADIOLOGIST; Original Order Number: [id number] Complete Blood Count + Diffe erich 07-12-2019 Basophils (Bld) [#/Vol] 0.00 {x10E9/L} See Below [facility] [employer] Work Phone: Comment on above: Reference Range: 0.0 0 - 0.10 Ordering Provider: Renee MCFARLANDA TASHIA [id number] Basophils/100 WBC (Bld) 0.5 % 0.0 - 2.0 [facility] [employer] [facility] Work Phone: Comment on above: Ordering Provider: Renee ADMA VELMARICARMENKI [id number] Eosinophils (Bld) [#/Vol] 0.20 {x10E9/L} See Below [facility] [facility] Work Phone: Comment on above: Reference Range: 0.0 0 - 0.70 Ordering Provider: Renee MCFARLANDA DCKI 39664 Eosinophils/100 WBC (Bld) 3.8 % 0.0 - 6.0 [facility] Work Phone: Comment on above: Ordering Provider: Renee ADMA SHEKHARLANKI 66112 Erythrocyte distribution width (RBC) [Ratio] 15.3 % above high threshold See Below [facility] Work Phone: Comment on above: Reference Range: 11. 5 - 14.5 Ordering Provider: Renee MCFARLANDA SHEKHARLANKI 42968 Hematocrit (Bld) [Volume fraction] 40.3 % See Below [facility] ([employer]) Work Phone: Comment on above: Reference Range: 36. 0 - 46.0 Ordering Provider: Renee CHISHOLM 57279 Hemoglobin (Bld) [Mass/Vol] 13.0 g/dL See Below [facility] Work Phone: Comment on above: Reference Range: 12. 0 - 16.0 Ordering Provider: Renee IRWINKI 29276 Lymphocytes (Bld) [#/Vol] 1.40 {x10E9/L} See Below [facility] Work Phone: Comment on above: Reference Range: 1.2 0 - 4.80 Ordering Provider: P ADMA TASHIA 17249 Lymphocytes/100 WBC (Bld) 25.0 % See Below [facility] Work Phone: Comment on above: Reference Range: 13. 0 - 44.0 Ordering Provider: Renee MCFARLANDA TASHIA 91889 MCHC (RBC) [Mass/Vol] 32.3 g/dL See Below [facility] Work Phone: Comment on above: Reference Range: 32. 0 - 36.0 Ordering Provider: Renee IRWINKI 82294 MCV (RBC) [Entitic vol] 99 fL 80 - 100 [facility] Work Phone: Comment on above: Ordering Provider: P ADMA DCKI 36076 Monocytes (Bld) [#/Vol] 0.40 {x10E9/L} See Below [facility] Work Phone: Comment on above: Reference Range: 0.1 0 - 1.00 Ordering Provider: P ADMA SHEKHARLANKI 29595 Monocytes/100 WBC (Bld) 6.5 % 2.0 - 10.0 [facility] Work Phone: Comment on above: Ordering Provider: P ADMA SHEKHARLANKI 94726 Neutrophils (Bld) [#/Vol] 3.50 {x10E9/L} See Below [facility] Work Phone: Comment on above: Reference Range: 1.2 0 - 7.70 Percent differential counts (%) should be interpreted in the context of the absolute cell counts (cells/L). Ordering Provider: P ADMA VELLANKI 20119 Neutrophils/100 WBC (Bld) 64.2 % See Below [facility] Work Phone: Comment on above: Reference Range: 40. 0 - 80.0 Ordering Provider: P ADMA VELLANKI 74124 Platelets (Bld) [#/Vol] 268 {x10E9/L} 150 - 450 [facility] Work Phone: Comment on above: Ordering Provider: P ADMA VELLANKI 28349 RBC (Bld) [#/Vol] 4.07 {x10E12/L} See Below [facility] Work Phone: Comment on above: Reference Range: 4.0 0 - 5.20 Ordering Provider: P ADMA VELLANKI 31123 WBC (Bld) [#/Vol] 5.5 {x10E9/L} 4.4 - 11.3 [facility] Work Phone: Comment on above: Ordering Provider: P ADMA VELLANKI 46631 WBC (Bld) [#/Vol] 0.2 {/100_WBC} [facility] Work Phone: Comment on above: Ordering Provider: P ADMA VELLANKI 28206 Metabolic Panelon 07-12-2019 ALP [Catalytic activity/Vol] 53 U/L 33 - 136 [facility] Work Phone: Comment on above: Ordering Provider: P ADMA VELLANKI 82396 Anion gap [Moles/Vol] 8 mmol/L below low threshold 10 - 20 [facility] Work Phone: Comment on above: Ordering Provider: P ADMA VELLANKI 91098 Bilirubin [Mass/Vol] 0.6 mg/dL 0.0 - 1.2 [facility] Work Phone: Comment on above: Ordering Provider: P ADMA VELLANKI 94194 Calcium [Mass/Vol] 9.8 mg/dL 8.6 - 10.3 [facility] Work Phone: Comment on above: Ordering Provider: P ADMA VELLANKI 32619 Chloride [Moles/Vol] 104 mmol/L 98 - 107 [facility] Work Phone: Comment on above: Ordering Provider: P ADMA VELLANKI 95888 CO2 [Moles/Vol] 31 mmol/L 21 - 32 [facility] Work Phone: Comment on above: Ordering Provider: P ADMA VELLANKI 31534 Creatinine [Mass/Vol] 0.83 mg/dL See Below [facility] Work Phone: Comment on above: Reference Range: 0.5 0 - 1.05 Ordering Provider: P ADMA VELLANKI 02871 Glucose [Mass/Vol] 99 mg/dL 74 - 99 [facility] Work Phone: Comment on above: Ordering Provider: P ADMA VELLANKI 91606 Potassium [Moles/Vol] 4.0 mmol/L 3.5 - 5.3 [facility] Work Phone: Comment on above: Ordering Provider: P ADMA VELLANKI 27102 Protein [Mass/Vol] 6.7 g/dL 6.4 - 8.2 [facility] Work Phone: Comment on above: Ordering Provider: P ADMA VELLANKI 47075 Sodium [Moles/Vol] 139 mmol/L 136 - 145 [facility] Work Phone: Comment on above: Ordering Provider: P ADMA VELLANKI 14353 Urea nitrogen [Mass/Vol] 24 mg/dL above high threshold 6 - 23 [facility] Work Phone: Comment on above: Ordering Provider: P ADMA VELLANKI 32748 Otheron 07-12-2019 Albumin BCP dye [Mass/Vol] 4.2 g/dL 3.4 - 5.0 [facility] Work Phone: Comment on above: Ordering Provider: P ADMA SHEKHARLANKI 54326 ALT With P-5'-P [Catalytic activity/Vol] 27 U/L 7 - 45 [facility] Work Phone: Comment on above: Patients treated wit h Sulfasalazine may generate falsely decreased results for ALT. Ordering Provider: P CINDY CHISHOLM 46336 AST With P-5'-P [Catalytic activity/Vol] 29 U/L 9 - 39 [facility] Work Phone: Comment on above: Ordering Provider: P A TASHIA 76748 >60 >60 [facility] Work Phone: Comment on above: CALCULATIONS OF TAYE MATED GFR ARE PERFORMED USING THE MDRD STUDY EQUATION FOR THE IDMS-TRACEABLE CREATININE METHODS. CLIN CHEM 2007;53:766-72 Ordering Provider: Renee CINDY CHISHOLM 50750 XR Pelvis Inlet/Outlet 3+ Vi ewson 06-11-2019 [...] material within the bilateral sacral/SI joint regions. [facility] Auto Diffon 12-29-2018 Basophils (Bld) [#/Vol] 0.0 E3/mcL Normal 0.0-0.2 [facility] Comment on above: Order Comment: Order Added by Discern Expert. Performed By: #### 9 [id number] #### ALIRIO RemHemo [facility] [place] [address] Basophils/100 WBC (Bld) 0.7 % Normal 0.0-2.0 [facility] Comment on above: Order Comment: Order Added by Discern Expert. Performed By: #### 9 [id number] #### ALIRIO RemHemo [address] [place] [address] Eos Absolute 0.3 E3/mcL Normal 0.0-0.7 [facility] Comment on above: Order Comment: Order Added by Discern Expert. Performed By: #### 9 [id number] #### ALIRIO RemHemo [address] [place] [address] Eosinophils/100 WBC (Bld) 4.9 % Normal 0.0-11.0 [facility] Comment on above: Order Comment: Order Added by Discern Expert. Performed By: #### 9 [id number] #### ALIRIO RootHemo [address] [place] [address] Lymphocytes (Bld) [#/Vol] 1.6 E3/mcL Normal 1.2-3.4 [facility] Comment on above: Order Comment: Order Added by Discern Expert. Performed By: #### 9 [id number] #### ALIRIO RootHemo [address] [place] [address] Lymphocytes/100 WBC (Bld) 27.4 % Normal 20.0-55.0 [facility] Comment on above: Order Comment: Order Added by Discern Expert. Performed By: #### 9 [id number] #### ALIRIO RemHemo [address] [place] [address] [place] Absolute 0.3 E3/mcL Normal 0.0-0.7 [facility] Comment on above: Order Comment: Order Added by Discern Expert. Performed By: #### 9 [id number] #### ALIRIO RootHemo [address] [place] [address] Monocytes/100 WBC (Bld) 5.7 % Normal 0.0-10.0 [facility] Comment on above: Order Comment: Order Added by Discern Expert. Performed By: #### 9 [id number] #### ALIRIO RemHemo [address] [place] [address] Neutro Absolute 3.6 E3/mcL Normal 1.4-6.5 [facility] Comment on above: Order Comment: Order Added by Discern Expert. Performed By: #### 9 [id number] #### ALIRIO RemHemo [address] [place] [id number] Neutro Auto 61.3 % Normal 37.0-75.0 [facility] Comment on above: Order Comment: Order Added by Discern Expert. Performed By: #### 9 [id number] #### ALIRIO RemHemo [address] [place] [address] CBC w/ Auto Diffon Erythrocyte distribution width (RBC) [Ratio] 14.0 % Normal 11.5-14.5 [facility] Comment on above: Performed By: #### 9 [id number] #### ALIRIO RemHemo [address] [place] [address] Hematocrit (Bld) [Volume fraction] 38.2 % Normal 36.0-48.0 [facility] Comment on above: Performed By: #### 9 [id number] #### ALIRIO RemHemo [address] [place] [address] Hemoglobin (Bld) [Mass/Vol] 12.6 g/dL Normal 12.0-16.0 [facility] Comment on above: Performed By: #### 9 [id number] #### ALIRIO RemHemo [address] [place] [address] 89402 MCH (RBC) [Entitic mass] 31.9 pg High 27.0-31.0 [facility] Comment on above: Performed By: #### 9 [id number] #### ALIRIO RemHemo [address] [place] [address] 56511 MCHC (RBC) [Mass/Vol] 33.1 g/dL Normal 33.0-37.0 [facility] Comment on above: Performed By: #### 9 [id number] #### ALIRIO RemHemo [address] [place] [address] 77356 MCV (RBC) [Entitic vol] 96.3 fL Normal 78.0-100.0 [facility] Comment on above: Performed By: #### 9 [id number] #### ALIRIO RemHemo [facility] [place] [address] Platelet mean volume (Bld) [Entitic vol] 9.0 fL Normal 7.4-11.0 [facility] Comment on above: Performed By: #### 9 [id number] #### ALIRIO RemHemo [address] [place] [address] Platelets (Bld) [#/Vol] 221 E3/mcL Normal 130-400 [facility] Comment on above: Performed By: #### 9 [id number] #### ALIRIO RootHemo [address] [place] [address] RBC (Bld) [#/Vol] 3.96 E6/mcL Normal 3.90-5.40 [facility] Comment on above: Performed By: #### 9 [id number] #### ALIRIO RootHemo [address] [place] [address] WBC (Bld) [#/Vol] 5.9 E3/mcL Normal 3.6-11.0 [facility] Comment on above: Performed By: #### 9 [id number] #### ALIRIO RootHemo [address] [place] [address] CMPon 12-29-2018 Albumin [Mass/Vol] 4.1 g/dL Normal 3.4-5.0 [facility] Comment on above: Performed By: #### 9 [id number] #### ALIRIO RootHemo [facility] [place] [address] Albumin/Globulin [Mass ratio] 2.0 {ratio} High 1.1-1.9 [facility] Comment on above: Performed By: #### 9 [id number] #### ALIRIO RemHemo [address] [place] [address] Alk Phos 57 Int._Unit/L Normal 33-136 [facility] Comment on above: Performed By: #### 9 [id number] #### ALIRIO RootHemo [address] [place] [address] ALT [Catalytic activity/Vol] 19 Int._Unit/L Normal 7-45 [facility] Comment on above: Performed By: #### 9 [id number] #### ALIRIO RemHemo [address] [place] [address] Anion gap [Moles/Vol] 8 mmol/L Low 10-20 [facility] Comment on above: Performed By: #### 9 [id number] #### ALIRIO RemHemo [address] [place] [address] AST [Catalytic activity/Vol] 22 Int._Unit/L Normal 9-39 [facility] Comment on above: Performed By: #### 9 [id number] #### ALIRIO RemHemo [address] [place] [address] Bili Total 0.56 mg/dL Normal 0.00-1.20 [facility] Comment on above: Performed By: #### 9 [id number] #### ALIRIO RootHemo [address] [place] [address] Calcium [Mass/Vol] 8.9 mg/dL Normal 8.6-10.3 [facility] Comment on above: Performed By: #### 9 [id number] #### ALIRIO RootHemo [address] [place] [address] Chloride [Moles/Vol] 108 mmol/L High 98-107 [facility] Comment on above: Performed By: #### 9 [id number] #### ALIRIO RootHemo [address] [place] [address] CO2 [Moles/Vol] 29.0 mmol/L Normal 21.0-32.0 [facility] Comment on above: Performed By: #### 9 [id number] #### ALIRIO RootHemo [address] [place] [address] Creatinine [Mass/Vol] 0.8 mg/dL Normal 0.5-1.1 [facility] Comment on above: Performed By: #### 9 [id number] #### ALIRIO RootHemo [address] [place] [address] Globulin (S) [Mass/Vol] 2.0 g/dL Normal 2.0-4.0 [facility] Comment on above: Performed By: #### 9 [id number] #### ALIRIO RootHemo [address] [place] [address] Glucose [Mass/Vol] 91 mg/dL Normal 70-99 [facility] Comment on above: Performed By: #### 9 [id number] #### ALIRIO RootHemo [address] [place] [address] Potassium [Moles/Vol] 4.1 mmol/L Normal 3.5-5.3 [facility] Comment on above: Performed By: #### 9 [id number] #### ALIRIO RootHemo [address] [place] [address] Protein [Mass/Vol] 6.1 g/dL Low 6.4-8.2 [facility] Comment on above: Performed By: #### 9 [id number] #### ALIRIO RootHemo [address] [place] [address] Sodium [Moles/Vol] 141 mmol/L Normal 136-145 [facility] Comment on above: Performed By: #### 9 [id number] #### ALIRIODoreen Antono [address] [place] [address] Urea nitrogen [Mass/Vol] 37 mg/dL High 6-23 [facility] Comment on above: Performed By: #### 9 [id number] #### ALIRIODoreen RootHemo [address] [place] [address] Urea nitrogen/Creatinin e [Mass ratio] 46.2 ratio High 5.4-30.0 [facility] Comment on above: Performed By: #### 9 [id number] #### ALIRIODoreen RootHemo [facility] [place] [address] Ionized Calcium Lvlon 2018 Ionized Ca. 4.9 mg/dL Normal 4.5-5.6 [facility] Comment on above: Performed By: #### 9 [id number] #### ALIRIO IvettHemo [address] [place] [address] Ionized Calcium POC Orderon 12-29-2018 Ionized Calcium POC Order Collected Normal [facility] Comment on above: Performed By: #### 9 [id number] #### ALIRIO IvettHemo [address] [place] [address] Lipid Profileon 12-29-2018 Cholesterol [Mass/Vol] 130 mg/dL Normal 0-199 [facility] Comment on above: Result Comment: TOTA L CHOLEESTEROL: <200 NORMAL 200 - 239 BORDERLINE HIGH >240 HIGH Performed By: #### 9 [id number] #### ALIRIODoreen RootHemo [address] [place] [address] Cholesterol in HDL [Mass/Vol] 52 mg/dL Normal 40-60 [facility] Comment on above: Performed By: #### 9 [id number] #### ALIRIODoreen RootHemo [address] [place] [address] Cholesterol in LDL [Mass/Vol] 52 mg/dL Normal 0-130 [facility] Comment on above: Result Comment: <100 OPTIMAL 100-129 NEAR / ABOVE OPTIMAL 130-159 BORDERLINE HIGH 160-189 HIGH >190 VERY HIGH CALC LDL NOT VALID WHEN TRIGLYCERIDE IS >400 MG/DL Performed By: #### 9 [id number] #### ALIRIO Antono [facility] [place] [address] Cholesterol in VLDL [Mass/Vol] 26 mg/dL Normal 0-40 [facility] Comment on above: Performed By: #### 9 [id number] #### ALIRIO RootHemo [facility] [place] [address] Triglyceride [Mass/Vol] 130 mg/dL Normal 0-149 [facility] Comment on above: Result Comment: AGE DESIRABLE BORDERLINE HIGH 91 D - 9 Y 0 - 74 75 - 99 > 100 10 - 19 Y 0 - 89 90 - 129 > 130 20 -24 Y 0 - 114 115 - 149 > 150 > 25 0 - 149 150 - 199 200 - 499 Performed By: #### 9 [id number] #### ALIRIO RootHemo [address] [place] [address] TSHon 12-29-2018 TSH Qn 1.74 mcIU/mL Normal 0.30-5.60 [facility] Comment on above: Performed By: #### 9 [id number] #### ALIRIO Antono [facility] [place] [address] Vitamin D 25 Hydroxyon 12-29 Vitamin D 25 Hydroxy 68.0 ng/mL Normal 30.0-100.0 [facility] Comment on above: Performed By: #### 9 [id number] #### ALIRIO RootHemo [facility] [place] [address] eGFRon 12-29-2018 GFR/1.73 sq M predicted among non-blacks MDRD (S/P/Bld) [Vol rate/Area] mL/min/{1.73_m2} Normal [facility] Comment on above: Order Comment: Order added by Discern Expert. Performed By: #### 9 [id number] #### ALIRIO RootHemo [facility] [place] [address] Lab Miscellaneouson 11-16-19 19 Status See Ref Lab Report Normal [facility] Comment on above: Performed By: #### 1 [id number] #### ALIRIO RemHemo [address] [place] [address] Auto Diffon 11-13-2018 Basophils (Bld) [#/Vol] 0.0 E3/mcL Normal 0.0-0.2 [facility] Comment on above: Order Comment: Order Added by Discern Expert. Performed By: #### 1 [id number] #### ALIRIO RootHemo [address] [place] [address] Basophils/100 WBC (Bld) 0.7 % Normal 0.0-2.0 [facility] Comment on above: Order Comment: Order Added by Discern Expert. Performed By: #### 1 [id number] #### ALIRIO RemHemo [address] [place] [address] Eos Absolute 0.3 E3/mcL Normal 0.0-0.7 [facility] Comment on above: Order Comment: Order Added by Discern Expert. Performed By: #### 1 [id number] #### ALIRIO RemHemo [address] [place] [address] Eosinophils/100 WBC (Bld) 5.4 % Normal 0.0-11.0 [facility] Comment on above: Order Comment: Order Added by Discern Expert. Performed By: #### 1 [id number] #### ALIRIO RootHemo [address] [place] [address] Lymphocytes (Bld) [#/Vol] 1.9 E3/mcL Normal 1.2-3.4 [facility] Comment on above: Order Comment: Order Added by Discern Expert. Performed By: #### 1 [id number] #### ALIRIO RemHemo [address] [place] [address] Lymphocytes/100 WBC (Bld) 35.1 % Normal 20.0-55.0 [facility] Comment on above: Order Comment: Order Added by Discern Expert. Performed By: #### 1 [id number] #### ALIRIO RemHemo [address] [place] [address] [place] Absolute 0.4 E3/mcL Normal 0.0-0.7 [facility] Comment on above: Order Comment: Order Added by Discern Expert. Performed By: #### 1 [id number] #### ALIRIO RootHemo [facility] [place] [address] Monocytes/100 WBC (Bld) 7.2 % Normal 0.0-10.0 [facility] Comment on above: Order Comment: Order Added by Discern Expert. Performed By: #### 1 [id number] #### ALIRIO RootHemo [address] [place], [place] [address] Neutro Absolute 2.8 E3/mcL Normal 1.4-6.5 [facility] Comment on above: Order Comment: Order Added by Discern Expert. Performed By: #### 1 [id number] #### ALIRIO RootHemo [address] [place] [address] Neutro Auto 51.6 % Normal 37.0-75.0 [facility] Comment on above: Order Comment: Order Added by Discern Expert. Performed By: #### 1 [id number] #### ALIRIO RootHemo [address] [place], [place] [address] CBC w/ Auto Diffon 9 Erythrocyte distribution width (RBC) [Ratio] 13.9 % Normal 11.5-14.5 [facility] Comment on above: Performed By: #### 1 [id number] #### AL[place]IO [place] [address] Hematocrit (Bld) [Volume fraction] 38.2 % Normal 36.0-48.0 [facility] Comment on above: Performed By: #### 1 [id number] #### ALIRIO Antono [address] [place], [place] [address] Hemoglobin (Bld) [Mass/Vol] 12.6 g/dL Normal 12.0-16.0 [facility] Comment on above: Performed By: #### 1 [id number] #### ALIRIODoreen RootHemo [address] [place], [place] [address] MCH (RBC) [Entitic mass] 31.8 pg High 27.0-31.0 [facility] Comment on above: Performed By: #### 1 [id number] #### ALIRIO RootHemo [address] [place], [place] [address] MCHC (RBC) [Mass/Vol] 32.9 g/dL Low 33.0-37.0 [facility] Comment on above: Performed By: #### 1 [id number] #### ALIRIO RootHemo [facility] [place] [address] MCV (RBC) [Entitic vol] 96.7 fL Normal 78.0-100.0 [facility] Comment on above: Performed By: #### 1 [id number] #### ALIRIO RemHemo [facility] [place] [address] Platelet mean volume (Bld) [Entitic vol] 8.9 fL Normal 7.4-11.0 [facility] Comment on above: Performed By: #### 1 [id number] #### ALIRIO RootHemo [address] [place] [address] Platelets (Bld) [#/Vol] 205 E3/mcL Normal 130-400 [facility] Comment on above: Performed By: #### 1 [id number] #### ALIRIO RootHemo [address] [place] [address] RBC (Bld) [#/Vol] 3.95 E6/mcL Normal 3.90-5.40 [facility] Comment on above: Performed By: #### 1 [id number] #### ALIRIODoreen RootHemo [address] [place] [address]42 WBC (Bld) [#/Vol] 5.4 E3/mcL Normal 3.6-11.0 [facility] Comment on above: Performed By: #### 1 [id number] #### ALIRIO RemHemo [address] [place] [address] CMPon 11-13-2018 Albumin [Mass/Vol] 3.9 g/dL Normal 3.4-5.0 [facility] Comment on above: Performed By: #### 1 [id number] #### ALIRIODoreen RootHemo [facility] [place] [address] Albumin/Globulin [Mass ratio] 1.9 {ratio} Normal 1.1-1.9 [facility] Comment on above: Performed By: #### 1 [id number] #### ALIRIO RemHemo [facility] [place] [address] Alk Phos 55 Int._Unit/L Normal 33-136 [facility] Comment on above: Performed By: #### 1 [id number] #### ALIRIO RootHemo [address] [place] [address] ALT [Catalytic activity/Vol] 20 Int._Unit/L Normal 7-45 [facility] Comment on above: Performed By: #### 1 [id number] #### ALIRIO RemHemo [address] [place] [address] Anion gap [Moles/Vol] 7 mmol/L Low 10-20 [facility] Comment on above: Performed By: #### 1 [id number] #### ALIRIO RootHemo [facility] [place] [address] AST [Catalytic activity/Vol] 23 Int._Unit/L Normal 9-39 [facility] Comment on above: Performed By: #### 1 [id number] #### ALIRIO RootHemo [address] [place] [address] Bili Total 0.61 mg/dL Normal 0.00-1.20 [facility] Comment on above: Performed By: #### 1 [id number] #### ALIRIO RemHemo [address] [place] [address] Calcium [Mass/Vol] 9.2 mg/dL Normal 8.6-10.3 [facility] Comment on above: Performed By: #### 1 [id number] #### ALIRIO RemHemo [address] [place] [address] Chloride [Moles/Vol] 107 mmol/L Normal 98-107 [facility] Comment on above: Performed By: #### 1 [id number] #### ALIRIO RemHemo [address] [place] [address] CO2 [Moles/Vol] 32.0 mmol/L Normal 21.0-32.0 [facility] Comment on above: Performed By: #### 1 [id number] #### ALIRIO RemHemo [address] [place] [address] Creatinine [Mass/Vol] 1.0 mg/dL Normal 0.5-1.1 [facility] Comment on above: Performed By: #### 1 [id number] #### ALIRIO Antono [address] [place] [address] Globulin (S) [Mass/Vol] 2.0 g/dL Normal 2.0-4.0 [facility] Comment on above: Performed By: #### 1 [id number] #### ALIRIO Antono [address] [place] [address] Glucose [Mass/Vol] 95 mg/dL Normal 70-99 [facility] Comment on above: Performed By: #### 1 [id number] #### ALIRIO Antono [address] [place] [address] Potassium [Moles/Vol] 4.6 mmol/L Normal 3.5-5.3 [facility] Comment on above: Performed By: #### 1 [id number] #### ALIRIO Antono [facility] [place] [address] Protein [Mass/Vol] 6.0 g/dL Low 6.4-8.2 [facility] Comment on above: Performed By: #### 1 [id number] #### ALIRIO Antono [address] [place] [address] Sodium [Moles/Vol] 141 mmol/L Normal 136-145 [facility] Comment on above: Performed By: #### 1 [id number] #### ALIRIO Antono [address] [place] [address] 11836 Urea nitrogen [Mass/Vol] 35 mg/dL High 6-23 [facility] Comment on above: Performed By: #### 1 [id number] #### ALIRIO Antono [address] [place] [address] Urea nitrogen/Creatinin e [Mass ratio] 35.0 ratio High 5.4-30.0 [facility] Comment on above: Performed By: #### 1 [id number] #### ALIRIO Antono [facility] [place] [address] CRPon 11-13-2018 CRP [Mass/Vol] 0.10 mg/dL Normal 0.00-1.00 [facility] Comment on above: Performed By: #### 1 [id number] #### ALIRIO Antono [address] [place] [address] Lab Miscellaneouson 11-14-19 Test Name g6pd quant [facility] Comment on above: Performed By: #### 1 [id number] #### ALIRIO RemHemo [facility] [place] [address] Sed Rate Automatedon 019 Sed Rate Automated 9 mm/hr [facility] Comment on above: Result Comment: AGE- SPECIFIC REFERENCE RANGES FOR SEDIMENTATION RATE AUTOMATED REFERENCE RANGE - MM/HR AGE MEN WOMEN 0-2 0-2 - PUBERTY 3-13 3-13 PUBERTY - 50 YRS 0-15 0-20 > 50 YRS 0-20 0-30 Performed By: #### 1 [id number] #### ALIRIO RemHemo [facility] [place] [address] eGFRon 11-13-2018 GFR/1.73 sq M predicted among non-blacks MDRD (S/P/Bld) [Vol rate/Area] mL/min/{1.73_m2} [facility] Comment on above: Order Comment: Order Added by Discern Expert. Performed By: #### 1 [id number] #### ALIRIO RemHemo [facility] [place] [address] GFR/1.73 sq M predicted among non-blacks MDRD (S/P/Bld) [Vol rate/Area] 59 mL/min/1.73 m2 [facility] Comment on above: Order Comment: Order Added by Discern Expert. Performed By: #### 1 [id number] #### ALIRIO RemHemo [facility] [place] [address] XR Spine Lumbosacral Minimum 4 Viewson 11-02-2018 XR Spine Lumbosacral Minimum 4 Views Exam Date/Time: 11/01/2018 09:28 EDT Reason for Exam: lumbar stenosis Report STUDY: XR Spine Lumbosacral Minimum 4 Views;; 11/01/2018 9:28 am INDICATION: lumbar stenosis. Status post posterior fusion COMPARISON: 04/29/2017 ACCESSION NUMBER(S): [id number] ORDERING CLINICIAN: María Capellan FINDINGS: There is [...] Signed by: Chet Truong MD Technologist: ALEXANDRA [facility] MRI Spine Lumbar w/o Contras ton 07-14-2018 MRI Spine Lumbar w/o Contrast Exam Date/Time: 07/14/2018 08:58 EDT Reason for Exam: LOW BACK PAIN LUMBAR RADICULOPATHY/DDD PT HAS METAL IN RIGHT HIP/LOW BACK/LEFT KNEE;Radiculopathy Report STUDY: MRI Spine Lumbar w/o Contrast; 07/14/2018 8:58 am INDICATION: Radiculopathy. COMPARISON: June 2013. ACCESSION NUMBER(S): [id number] ORDERING CLINICIAN: Jasmine Mathias TECHNIQUE: The lumbar [...] the sacrum bilaterally The examination was interpreted [facility] FINAL REPORT Dictated: 07/14/2018 10:28 am Hawk Marquez MD Signed (Electronic Signature): 07/14/2018 10:28 am Signed by: Hawk Marquez MD Technologist: LEANDRO [facility] [place] Mamm Screen w/CAD if perf ormed bilaton 06-30-2018 [place] Mamm Screen w/CAD if performed bilat Exam Date/Time: 06/29/2018 09:52 EDT Reason for Exam: SCREENING;Screening Report STUDY: Digital mammography screening; 06/29/2018 9:52 am ACCESSION NUMBER(S): [id number] ORDERING CLINICIAN: Jasmine Mathias INDICATION: Screening. COMPARISON: [...] Category 1-Negative Recommendation: Normal interval follow-up Normal [facility] Auto Diffon 06-02-2018 Basophils (Bld) [#/Vol] 0.0 E3/mcL Normal 0.0-0.2 [facility] Comment on above: Order Comment: Order Added by Discern Expert. Performed By: #### 2 [id number] #### ALIRIO RemHemo [address] [place] [address] Basophils/100 WBC (Bld) 0.4 % Normal 0.0-2.0 [facility] Comment on above: Order Comment: Order Added by Discern Expert. Performed By: #### 2 [id number] #### ALIRIO RemHemo [address] [place] [address] Eos Absolute 0.2 E3/mcL Normal 0.0-0.7 [facility] Comment on above: Order Comment: Order Added by Discern Expert. Performed By: #### 2 [id number] #### ALIRIO RemHemo [address] [place] [address] Eosinophils/100 WBC (Bld) 4.2 % Normal 0.0-11.0 [facility] Comment on above: Order Comment: Order Added by Discern Expert. Performed By: #### 2 [id number] #### ALIRIO RemHemo [address] [place] [address] Lymphocytes (Bld) [#/Vol] 1.7 E3/mcL Normal 1.2-3.4 [facility] Comment on above: Order Comment: Order Added by Discern Expert. Performed By: #### 2 [id number] #### ALIRIO RemHemo [address] [place] [address] Lymphocytes/100 WBC (Bld) 30.7 % Normal 20.0-55.0 [facility] Comment on above: Order Comment: Order Added by Discern Expert. Performed By: #### 2 [id number] #### ALIRIO RemHemo [address] [place] [address] [place] Absolute 0.4 E3/mcL Normal 0.0-0.7 [facility] Comment on above: Order Comment: Order Added by Discern Expert. Performed By: #### 2 [id number] #### ALIRIO RemHemo [address] [place] [address] Monocytes/100 WBC (Bld) 7.6 % Normal 0.0-10.0 [facility] Comment on above: Order Comment: Order Added by Discern Expert. Performed By: #### 2 [id number] #### ALIRIO RemHemo [address] [place] [address] Neutro Absolute 3.1 E3/mcL Normal 1.4-6.5 [facility] Comment on above: Order Comment: Order Added by Discern Expert. Performed By: #### 2 [id number] #### ALIRIO RootHemo [address] [place] [address] Neutro Auto 57.1 % Normal 37.0-75.0 [facility] Comment on above: Order Comment: Order Added by Discern Expert. Performed By: #### 2 [id number] #### ALIRIO RootHemo [address] [place] [address] CBC w/ Auto Diffon Erythrocyte distribution width (RBC) [Ratio] 16.4 % High 11.5-14.5 [facility] Comment on above: Performed By: #### 2 [id number] #### ALIRIO RootHemo [address] [place] [address] Hematocrit (Bld) [Volume fraction] 38.6 % Normal 36.0-48.0 [facility] Comment on above: Performed By: #### 2 [id number] #### ALIRIO RootHemo [address] [place] [address] Hemoglobin (Bld) [Mass/Vol] 12.7 g/dL Normal 12.0-16.0 [facility] Comment on above: Performed By: #### 2 [id number] #### ALIRIO RootHemo [address] [place] [address] MCH (RBC) [Entitic mass] 30.2 pg Normal 27.0-31.0 [facility] Comment on above: Performed By: #### 2 [id number] #### ALIRIO RemHemo [address] [place] [address] MCHC (RBC) [Mass/Vol] 32.8 g/dL Low 33.0-37.0 [facility] Comment on above: Performed By: #### 2 [id number] #### ALIRIO RemHemo [address] [place] [address] MCV (RBC) [Entitic vol] 92.3 fL Normal 78.0-100.0 [facility] Comment on above: Performed By: #### 2 [id number] #### ALIRIO RemHemo [address] [place] [address] Platelet mean volume (Bld) [Entitic vol] 9.4 fL Normal 7.4-11.0 [facility] Comment on above: Performed By: #### 2 [id number] #### ALIRIO RemHemo [address] [place] [address] Platelets (Bld) [#/Vol] 206 E3/mcL Normal 130-400 [facility] Comment on above: Performed By: #### 2 [id number] #### ALIRIO RemHemo [address] [place] [address] RBC (Bld) [#/Vol] 4.19 E6/mcL Normal 3.90-5.40 [facility] Comment on above: Performed By: #### 2 [id number] #### ALRIIO RemHemo [address] [place] [address] WBC (Bld) [#/Vol] 5.4 E3/mcL Normal 3.6-11.0 [facility] Comment on above: Performed By: #### 2 324778 #### ALIRIO RemHemo [facility] [place] [address] CMPon 06-02-2018 Albumin [Mass/Vol] 4.2 g/dL Normal 3.4-5.0 [facility] Comment on above: Performed By: #### 2 [id number] #### ALIRIO [employer] [address] [place] [address] Albumin/Globulin [Mass ratio] 2.1 {ratio} High 1.1-1.9 [facility] Comment on above: Performed By: #### 2 896625 #### ALIRIO [employer] [facility] [place] [address] Alk Phos 53 Int._Unit/L Normal 33-136 [facility] Comment on above: Performed By: #### 2 [id number] #### ALIRIO [employer] [facility] [place] [address] ALT [Catalytic activity/Vol] 23 Int._Unit/L Normal 7-45 [facility] Comment on above: Performed By: #### 2 [id number] #### ALIRIO [employer] [address] [place] [address] Anion gap [Moles/Vol] 10 mmol/L Normal 10-20 [facility] Comment on above: Performed By: #### 2 [id number] #### ALIRIO [employer] [address] [place] [address] AST [Catalytic activity/Vol] 24 Int._Unit/L Normal 9-39 [facility] Comment on above: Performed By: #### 2 [id number] #### ALIRIO [employer] [address] [place] [address] Bili Total 0.73 mg/dL Normal 0.00-1.20 [facility] Comment on above: Performed By: #### 2 [id number] #### ALIRIO [employer] [address] [place] [address] Calcium [Mass/Vol] 9.5 mg/dL Normal 8.6-10.3 [facility] Comment on above: Performed By: #### 2 [id number] #### ALIRIO [employer] [address] [place], [place] [address] Chloride [Moles/Vol] 107 mmol/L Normal 98-107 [facility] Comment on above: Performed By: #### 2 [id number] #### [facility] [employer] [address] [place], [place] [address] CO2 [Moles/Vol] 30.0 mmol/L Normal 21.0-32.0 [facility] Comment on above: Performed By: #### 2 [id number] #### ALIRIO [employer] [address] [place] [address] Creatinine [Mass/Vol] 0.8 mg/dL Normal 0.5-1.1 [facility] Comment on above: Performed By: #### 2 854834 #### ALIRIO [employer] [address] [place] [address] Globulin (S) [Mass/Vol] 2.0 g/dL Normal 2.0-4.0 [facility] Comment on above: Performed By: #### 2 723374 #### ALIRIO [employer] [address] [place] [address] Glucose [Mass/Vol] 100 mg/dL High 70-99 [facility] Comment on above: Performed By: #### 2 416234 #### ALIRIO [employer] [address] [place] [address] Potassium [Moles/Vol] 4.1 mmol/L Normal 3.5-5.3 [facility] Comment on above: Performed By: #### 2 993778 #### ALIRIO [employer] [address] [place] [address] Protein [Mass/Vol] 6.2 g/dL Low 6.4-8.2 [facility] Comment on above: Performed By: #### 2 683965 #### ALIRIO [employer] [address] [place] [address] Sodium [Moles/Vol] 143 mmol/L Normal 136-145 [facility] Comment on above: Performed By: #### 2 [id number] #### ALIRIO [employer] [address] [place] [address] Urea nitrogen [Mass/Vol] 29 mg/dL High 6-23 [facility] Comment on above: Performed By: #### 2 827826 #### ALIRIO [employer] [address] [place] [address] Urea nitrogen/Creatinin e [Mass ratio] 36.2 ratio High 5.4-30.0 [facility] Comment on above: Performed By: #### 2 674351 #### ALIRIO [employer] [address] [place] [address] Lipid Profileon 06-02-2018 Cholesterol [Mass/Vol] 131 mg/dL Normal 0-199 [facility] Comment on above: Result Comment: TOTA L CHOLEESTEROL: <200 NORMAL 200 - 239 BORDERLINE HIGH >240 HIGH Performed By: #### 3 [id number] #### ALIRIO [employer] [address] [place] [address] Cholesterol in HDL [Mass/Vol] 57 mg/dL Normal 40-60 [facility] Comment on above: Performed By: #### 3 [id number] #### ALIRIO [employer] [address] [place] [address] Cholesterol in LDL [Mass/Vol] 51 mg/dL Normal 0-130 [facility] Comment on above: Result Comment: <100 OPTIMAL 100-129 NEAR / ABOVE OPTIMAL 130-159 BORDERLINE HIGH 160-189 HIGH >190 VERY HIGH CALC LDL NOT VALID WHEN TRIGLYCERIDE IS >400 MG/DL Performed By: #### 3 [id number] #### ALIRIO [employer] [address] [place] [address] Cholesterol in VLDL [Mass/Vol] 23 mg/dL Normal 0-40 [facility] Comment on above: Performed By: #### 3 [id number] #### ALIRIO [employer] [facility] [place] [address] Triglyceride [Mass/Vol] 113 mg/dL Normal 0-149 [facility] Comment on above: Result Comment: AGE DESIRABLE BORDERLINE HIGH 91 D - 9 Y 0 - 74 75 - 99 > 100 10 - 19 Y 0 - 89 90 - 129 > 130 20 -24 Y 0 - 114 115 - 149 > 150 > 25 0 - 149 150 - 199 200 - 499 Performed By: #### 3 [id number] #### ALIRIO [employer] [address] [place] [address] TSHon 06-02-2018 TSH Qn 2.66 mcIU/mL Normal 0.30-5.60 [facility] Comment on above: Performed By: #### 2 [id number] #### ALIRIO RemStitcher [facility] [place] [address] eGFRon 06-02-2018 GFR/1.73 sq M predicted among non-blacks MDRD (S/P/Bld) [Vol rate/Area] mL/min/{1.73_m2} Normal [facility] Comment on above: Order Comment: Order added by Discern Expert. Performed By: #### 1 [id number] #### ALIRIO RemStitcher [address] [place] [address] SURGon 03-13-2018 SURG .1Patient Name: PATEL NARENDRA Georgina for Corrected Report [id number]: Results of immunohistochemistry 03/15/2018 Source Lymph node [...] MD , Pathologist (Case signed 03/16/2018) Normal [facility] Auto Diffon 02-10-2018 Basophils (Bld) [#/Vol] 0.1 E3/mcL Normal 0.0-0.2 [facility] Comment on above: Order Comment: Order Added by Discern Expert. Performed By: #### 2 [id number] #### ALIRIO RemHemo [address] [place] [address] Basophils/100 WBC (Bld) 1.2 % Normal 0.0-2.0 [facility] Comment on above: Order Comment: Order Added by Discern Expert. Performed By: #### 2 720991 #### ALIRIO RemHemo [address] [place] [address] Eos Absolute 0.3 E3/mcL Normal 0.0-0.7 [facility] Comment on above: Order Comment: Order Added by Discern Expert. Performed By: #### 2 675033 #### ALIRIO RemHemo [address] [place] [address] Eosinophils/100 WBC (Bld) 2.8 % Normal 0.0-11.0 [facility] Comment on above: Order Comment: Order Added by Discern Expert. Performed By: #### 2 845343 #### ALIRIO RemHemo [address] [place] [address] Lymphocytes (Bld) [#/Vol] 2.2 E3/mcL Normal 1.2-3.4 [facility] Comment on above: Order Comment: Order Added by Discern Expert. Performed By: #### 2 133858 #### ALIRIO RemHemo [address] [place] [address] Lymphocytes/100 WBC (Bld) 24.2 % Normal 20.0-55.0 [facility] Comment on above: Order Comment: Order Added by Discern Expert. Performed By: #### 2 603410 #### ALIRIO RemHemo [address] [place] [address] [place] Absolute 0.6 E3/mcL Normal 0.0-0.7 [facility] Comment on above: Order Comment: Order Added by Discern Expert. Performed By: #### 2 877279 #### ALIRIO RootHemo [address] [place] [address] Monocytes/100 WBC (Bld) 6.7 % Normal 0.0-10.0 [facility] Comment on above: Order Comment: Order Added by Discern Expert. Performed By: #### 2 [id number] #### ALIRIO RootHemo [address] [place] [address] Neutro Absolute 6.0 E3/mcL Normal 1.4-6.5 [facility] Comment on above: Order Comment: Order Added by Discern Expert. Performed By: #### 2 [id number] #### ALIRIO RootHemo [address] [place] [address] Neutro Auto 65.1 % Normal 37.0-75.0 [facility] Comment on above: Order Comment: Order Added by Discern Expert. Performed By: #### 2 806929 #### ALIRIO RootHemo [address] [place] [address] CBC w/ Auto Diffon 8 Erythrocyte distribution width (RBC) [Ratio] 23.5 % High 11.5-14.5 [facility] Comment on above: Performed By: #### 2 177405 #### ALIRIO IvettHemo [address] [place] [address] Hematocrit (Bld) [Volume fraction] 38.0 % Normal 36.0-48.0 [facility] Comment on above: Performed By: #### 2 255172 #### ALIRIO RootHemo [address] [place] [address] Hemoglobin (Bld) [Mass/Vol] 12.1 g/dL Normal 12.0-16.0 [facility] Comment on above: Performed By: #### 2 [id number] #### ALIRIO IvettHemo [address] [place] [address] MCH (RBC) [Entitic mass] 26.5 pg Low 27.0-31.0 [facility] Comment on above: Performed By: #### 2 061492 #### ALIRIO RemHemo [address] [place] [address] MCHC (RBC) [Mass/Vol] 31.8 g/dL Low 33.0-37.0 [facility] Comment on above: Performed By: #### 2 372145 #### ALIRIO RemHemo [address] [place] [address] MCV (RBC) [Entitic vol] 83.3 fL Normal 78.0-100.0 [facility] Comment on above: Performed By: #### 2 890340 #### ALIRIO RemHemo [address] [place] [address] Platelet mean volume (Bld) [Entitic vol] 8.7 fL Normal 7.4-11.0 [facility] Comment on above: Performed By: #### 2 090535 #### ALIRIO RemHemo [address] [place] [address] Platelets (Bld) [#/Vol] 276 E3/mcL Normal 130-400 [facility] Comment on above: Performed By: #### 2 [id number] #### ALIRIO RemHemo [address] [place] [address] RBC (Bld) [#/Vol] 4.57 E6/mcL Normal 3.90-5.40 [facility] Comment on above: Performed By: #### 2 485167 #### ALIRIO RemHemo [address] [place] [address] WBC (Bld) [#/Vol] 9.2 E3/mcL Normal 3.6-11.0 [facility] Comment on above: Performed By: #### 2 773835 #### ALIRIO RemHemo [address] [place] [address] Morphon 02-10-2018 Anisocytosis Ql (Bld) 2+ Normal [facility] Comment on above: Order Comment: Order Added by Discern Expert. Performed By: #### 1 [id number] #### ALIRIO RemHemo [address] [place] [address] Elliptocytes 1+ Normal [facility] Comment on above: Order Comment: Order Added by Discern Expert. Performed By: #### 1 [id number] #### ALIRIO RootHemo [facility] [place] [address] Hypochromasia 1+ Normal [facility] Comment on above: Order Comment: Order Added by Discern Expert. Performed By: #### 1 [id number] #### ALIRIO RootHemo [facility] [place] [address] Poikilocytosis 1+ Normal [facility] Comment on above: Order Comment: Order Added by Discern Expert. Performed By: #### 1 [id number] #### ALIRIO RootHemo [facility] [place] [address] RBC morphology finding Nom (Bld) SEE MORPHOLOGY Normal [facility] Comment on above: Order Comment: Order Added by Discern Expert. Performed By: #### 1 [id number] #### ALIRIO RootHemo [address] [place] [address] Teardrop Cell 1+ Normal [facility] Comment on above: Order Comment: Order Added by Discern Expert. Performed By: #### 1 [id number] #### ALIRIO RootHemo [address] [place] [address] zzplt morphon 02-10-2018 Platelet morphology finding Nom (Bld) NORMAL Normal [facility] Comment on above: Performed By: #### 9 [id number] #### [facility] [address] [place] [address] Platelets (Bld) [#/Vol] NORMAL Normal [facility] Comment on above: Performed By: #### 9 [id number] #### ALIRIO RootHemo [address] [place] [address] SURGon 11-15-2017 SURG Name: NARENDRA ARGUELLES Lynnejillian [...] Jack DO , Pathologist (Case signed 11/16/2017) [facility] SURGon 08-16-2017 SURG Name: NARENDRA ARGUELLES Esophagus, [...] Wilder MD , Pathologist (Case signed 08/17/2017) [facility] Vital Signs Date Time Vital Sign Value Performing Clinician Facility 09-14-2024 08:32-0400 Diastolic blood pressure 76 mm[Hg] Bar Triana Jr., DPM Work Phone: [facility] 09-14-2024 08:32-0400 Heart rate 80 /min Bar Triana Jr., DPM Work Phone: [facility] 09-14-2024 08:32-0400 Systolic blood pressure 130 mm[Hg] Bar Triana Jr., DPM Work Phone: [facility] 09-14-2024 08:02-0400 Body temperature 97.7 [degF] Bar Triana Jr., DPM Work Phone: [facility] 09-10-2024 18:42-0400 Diastolic blood pressure 56 mm[Hg] Sanjuana Negar DO Work Phone: [facility] 09-10-2024 18:42-0400 Heart rate 83 /min Sanjuana Negar DO Work Phone: [facility] 09-10-2024 18:42-0400 Respiratory rate 16 /min Sanjuana Negar DO Work Phone: [facility] 09-10-2024 18:42-0400 SaO2% (BldA) [Mass fraction] 100 % Sanjuana Bills DO Work Phone: [facility] 09-10-2024 18:42-0400 Systolic blood pressure 122 mm[Hg] Sanjuana Bills DO Work Phone: [facility] 09-10-2024 16:54-0400 Body temperature 98.2 [degF] Sanjuana Bills DO Work Phone: [facility] 09-10-2024 16:53-0400 Body mass index (BMI) [Ratio] 38.36 kg/m2 Sanjuana Bills DO Work Phone: [facility] 09-10-2024 16:53-0400 Body weight 92.08 kg Sanjuana Bills DO Work Phone: [facility] 09-07-2024 09:30-0400 Body height 154.[address] Jasmine Mathias MD Work Phone: [facility] 09-07-2024 09:30-0400 Body mass index (BMI) [Ratio] 38.3 kg/m2 Dr. Jasmine Mathias MD Work Phone: [facility] 09-07-2024 09:30-0400 Body weight 92.[address] Jasmine Mathias MD Work Phone: [facility] 08-31-2024 16:07-0400 Body mass index (BMI) [Ratio] 38.55 kg/m2 Jasmine Mathias MD Work Phone: [facility] 08-31-2024 16:07-0400 Body weight 92.53 kg Jasmine Mathias MD Work Phone: [facility] 08-31-2024 16:07-0400 Diastolic blood pressure 82 mm[Hg] Jasmine Mathias MD Work Phone: [facility] 08-31-2024 16:07-0400 Heart rate 90 /min Jasmine Mathias MD Work Phone: [facility] 08-31-2024 16:07-0400 Systolic blood pressure 138 mm[Hg] Jasmine Mathias MD Work Phone: [facility] 08-24-2024 14:43-0400 Body temperature 98.01 [degF] Bar Triana Jr., DPM Work Phone: [facility] 08-24-2024 14:43-0400 Diastolic blood pressure 80 mm[Hg] Bar Kong Jr., DPM Work Phone: [facility] 08-24-2024 14:43-0400 Heart rate 92 /min Bar Triana Jr., DPM Work Phone: [facility] 08-24-2024 14:43-0400 Systolic blood pressure 119 mm[Hg] Bar Triana Jr., DPM Work Phone: [facility] 08-10-2024 09:34-0400 Body height 154.[address] Jasmine Mathias MD Work Phone: [facility] 08-10-2024 09:34-0400 Body mass index (BMI) [Ratio] 38.5 kg/m2 Dr. Jasmine Mathias MD Work Phone: [facility] 08-10-2024 09:34-0400 Body weight 92.[address] Jasmine Mathias MD Work Phone: [facility] 07-16-2024 08:49-0400 Body height 154.9 cm Celeste JOHNSON Work Phone: [facility] 07-16-2024 08:49-0400 Body mass index (BMI) [Ratio] 38.92 kg/m2 Celeste JOHNSON Work Phone: [facility] 07-16-2024 08:49-0400 Body weight 93.44 kg Celeste Moran 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 Work Phone: [facility] 07-16-2024 08:49-0400 Diastolic blood pressure 96 mm[Hg] Celeste Moran [employer]CE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 Work Phone: [facility] 07-16-2024 08:49-0400 Heart rate 84 /min Celeste Moran [employer]CE[employer] 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 Work Phone: [facility] 07-16-2024 08:49-0400 Respiratory rate 18 /min Celestekassi Moran [employer]CELLENCE 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 Work Phone: [facility] 07-16-2024 08:49-0400 Systolic blood pressure 154 mm[Hg] Celestekassi Vargasley [employer]CE[employer] 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 Work Phone: [facility] 06-26-2024 11:42-0400 Body mass index (BMI) [Ratio] 40.06 kg/m2 Jasmine Mathias MD Work Phone: [facility] 06-26-2024 11:42-0400 Body weight 96.16 kg Jasmine Mathias MD Work Phone: [facility] 06-26-2024 11:42-0400 Diastolic blood pressure 64 mm[Hg] Jasmine Mathias MD Work Phone: [facility] 06-26-2024 11:42-0400 Heart rate 89 /min Jasmine Mathias MD Work Phone: [facility] 06-26-2024 11:42-0400 SaO2% (BldA) [Mass fraction] 93 % Jasmine Mathias MD Work Phone: [facility] 06-26-2024 11:42-0400 Systolic blood pressure 142 mm[Hg] Jasmine Mathias MD Work Phone: [facility] 06-25-2024 10:08-0400 Body height 154.9 cm Celeste Dean [employer]CE[employer] 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 Work Phone: [facility] 06-25-2024 10:08-0400 Body mass index (BMI) [Ratio] 40.43 kg/m2 Celeste Moran [employer]CE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 Work Phone: [facility] 06-25-2024 10:08-0400 Body weight 97.07 kg Celeste Moran [employer]CE[employer] 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 Work Phone: [facility] 06-25-2024 10:08-0400 Diastolic blood pressure 79 mm[Hg] Celeste Moran [employer]CE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 Work Phone: [facility] 06-25-2024 10:08-0400 Heart rate 73 /min Celeste Moran [employer]CE[employer] 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 Work Phone: [facility] 06-25-2024 10:08-0400 Respiratory rate 18 /min Celeste Moran [employer]CE[employer] 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 Work Phone: [facility] 06-25-2024 10:08-0400 Systolic blood pressure 141 mm[Hg] Celeste Moran [employer]CE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 Work Phone: [facility] 06-06-2024 11:32-0400 Diastolic blood pressure 84 mm[Hg] [facility] 02 [facility] 06-06-2024 11:32-0400 Heart rate 65 /min [address] 06-06-2024 11:32-0400 Respiratory rate 20 /min [address] 06-06-2024 11:32-0400 SaO2% (BldA) [Mass fraction] 95 % [facility] 02 [facility] 06-06-2024 11:32-0400 Systolic blood pressure 145 mm[Hg] [facility] 02 [facility] 06-06-2024 11:02-0400 Body temperature 97.59 [degF] [facility] 02 [facility] 06-06-2024 09:46-0400 Body height 154.[address] 06-06-2024 09:46-0400 Body mass index (BMI) [Ratio] 38.55 kg/m2 [facility] 02 [facility] 06-06-2024 09:46-0400 Body weight 92.53 kg [facility] 02 [facility] 05-21-2024 09:55-0500 Body height 154.9 cm Jasmine Mathias MD Work Phone: [facility] 05-21-2024 09:55-0500 Body mass index (BMI) [Ratio] 38.73 kg/m2 Jasmine Mathias MD Work Phone: [facility] 05-21-2024 09:55-0500 Body weight 92.99 kg Jasmine Mathias MD Work Phone: [facility] 05-21-2024 09:55-0500 Diastolic blood pressure 84 mm[Hg] Jasmine Mathias MD Work Phone: [facility] 05-21-2024 09:55-0500 Heart rate 83 /min Jasmine Mathias MD Work Phone: [facility] 05-21-2024 09:55-0500 SaO2% (BldA) [Mass fraction] 96 % Jasmine Mathias MD Work Phone: [facility] 05-21-2024 09:55-0500 Systolic blood pressure 112 mm[Hg] Jasmine Mathias MD Work Phone: [facility] 05-14-2024 09:47-0500 Body height 154.9 cm Jasmine Mathias MD Work Phone: [facility] 05-14-2024 09:47-0500 Body mass index (BMI) [Ratio] 38.94 kg/m2 Jasmine Mathias MD Work Phone: [facility] 05-14-2024 09:47-0500 Body weight 93.49 kg Jasmine Mathias MD Work Phone: [facility] 05-14-2024 09:47-0500 Diastolic blood pressure 74 mm[Hg] Jasmine Mathias MD Work Phone: [facility] 05-14-2024 09:47-0500 Heart rate 88 /min Jasmine Mathias MD Work Phone: [facility] 05-14-2024 09:47-0500 SaO2% (BldA) [Mass fraction] 98 % Jasmine Mathias MD Work Phone: [facility] 05-14-2024 09:47-0500 Systolic blood pressure 122 mm[Hg] Jasmine Mathias MD Work Phone: [facility] 05-07-2024 09:21-0500 Body height 154.9 cm Nena Gardnerenigualberto EXCELLENCE 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 MACHINE Work Phone: [facility] 05-07-2024 09:21-0500 Body mass index (BMI) [Ratio] 39.3 kg/m2 Nena Gardnerenigualberto EXCELLENCE 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 MACHINE Work Phone: [facility] 05-07-2024 09:21-0500 Body temperature 97.5 [degF] Nena Gardnerenigualberto EXCELLENCE 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 MACHINE Work Phone: [facility] 05-07-2024 09:21-0500 Body weight 94.35 kg Nena Gardnerenigualberto EXCELLENCE 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 MACHINE Work Phone: [facility] 05-07-2024 09:21-0500 Diastolic blood pressure 80 mm[Hg] Nena Gardnerenigualberto EXCELLENCE 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 MACHINE Work Phone: [facility] 05-07-2024 09:21-0500 Heart rate 88 /min Nena Aguilar EXCELLENCE 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 MACHINE Work Phone: [facility] 05-07-2024 09:21-0500 Respiratory rate 20 /min Nena Aguilar EXCELLENCE 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 MACHINE Work Phone: [facility] 05-07-2024 09:21-0500 SaO2% (BldA) [Mass fraction] 99 % Nena Gardnerenigualberto EXCELLENCE 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 MACHINE Work Phone: [facility] 05-07-2024 09:21-0500 Systolic blood pressure 134 mm[Hg] Nena Aguilar ROMINA-GRANITE POLISHER MACHINE Work Phone: [facility] 04-11-2024 07:59-0500 Body mass index (BMI) [Ratio] 39.3 kg/m2 Mauricio Mancilla PA-C Work Phone: [facility] 04-11-2024 07:59-0500 Body weight 94.35 kg Mauricio Mancilla PA-C Work Phone: [facility] 04-11-2024 07:59-0500 Diastolic blood pressure 81 mm[Hg] Mauricio Mancilla PA-C Work Phone: [facility] 04-11-2024 07:59-0500 Heart rate 91 /min Mauricio Mancilla PA-C Work Phone: [facility] 04-11-2024 07:59-0500 Respiratory rate 16 /min Mauricio Mancilla PA-C Work Phone: [facility] 04-11-2024 07:59-0500 Systolic blood pressure 144 mm[Hg] Mauricio Mancilla PA-C Work Phone: [facility] 04-04-2024 13:58-0500 Body height 154.9 cm Jordan Espinoza GRANITE POLISHER MACHINE Work Phone: [facility] 04-04-2024 13:58-0500 Body mass index (BMI) [Ratio] 39.11 kg/m2 Jordan Espinoza GRANITE POLISHER MACHINE Work Phone: [facility] 04-04-2024 13:58-0500 Body weight 93.89 kg Jordan Espinoza CNP Work Phone: [facility] 03-12-2024 10:53-0500 Body height 154.9 cm Jasmine Mathias MD Work Phone: [facility] 03-12-2024 10:53-0500 Body mass index (BMI) [Ratio] 39.11 kg/m2 Jasmine Mathias MD Work Phone: [facility] 03-12-2024 10:53-0500 Body weight 93.89 kg Jasmine Mathias MD Work Phone: [facility] 03-12-2024 10:53-0500 Diastolic blood pressure 78 mm[Hg] Jasmine Mathias MD Work Phone: [facility] 03-12-2024 10:53-0500 Heart rate 96 /min Jasmine Mathias MD Work Phone: [facility] 03-12-2024 10:53-0500 SaO2% (BldA) [Mass fraction] 96 % Jasmine Mathias MD Work Phone: [facility] 03-12-2024 10:53-0500 Systolic blood pressure 126 mm[Hg] Jasmine Mathias MD Work Phone: [facility] 02-17-2024 08:31-0500 Body height 154 cm Mary Carmen Tovar MD Work Phone: [facility] 02-17-2024 08:31-0500 Body mass index (BMI) [Ratio] 39.51 kg/m2 Mary Carmen Tovar MD Work Phone: [facility] 02-17-2024 08:31-0500 Body weight 93.71 kg Mary Carmen Tovar MD Work Phone: [facility] 02-17-2024 08:31-0500 Diastolic blood pressure 82 mm[Hg] Mary Carmen Tovar MD Work Phone: [facility] 02-17-2024 08:31-0500 Heart rate 86 /min Mary Carmen Tovar MD Work Phone: [facility] 02-17-2024 08:31-0500 Respiratory rate 16 /min Mary Carmen Tovar MD Work Phone: [facility] 02-17-2024 08:31-0500 Systolic blood pressure 126 mm[Hg] Mary Carmen Tovar MD Work Phone: [facility] 02-02-2024 08:51-0500 Diastolic blood pressure 87 mm[Hg] Mauricio Mancilla PA-C Work Phone: [facility] 02-02-2024 08:51-0500 Heart rate 72 /min Mauricio Mancilla PA-C Work Phone: [facility] 02-02-2024 08:51-0500 Respiratory rate 20 /min Mauricio Mancilla PA-C Work Phone: [facility] 02-02-2024 08:51-0500 Systolic blood pressure 144 mm[Hg] Mauricio Mancilla PA-C Work Phone: [facility] 01-30-2024 16:10-0500 Body height 154.9 cm Jasmine Mathias MD Work Phone: [facility] 01-30-2024 16:10-0500 Body mass index (BMI) [Ratio] 39.09 kg/m2 Jasmine Mathias MD Work Phone: [facility] 01-30-2024 16:10-0500 Body weight 93.85 kg Jasmine Mathias MD Work Phone: [facility] 01-30-2024 16:10-0500 Diastolic blood pressure 80 mm[Hg] Jasmine Mathias MD Work Phone: [facility] 01-30-2024 16:10-0500 Heart rate 104 /min Jasmine Mathias MD Work Phone: [facility] 01-30-2024 16:10-0500 SaO2% (BldA) [Mass fraction] 100 % Jasmine Mathias MD Work Phone: [facility] 01-30-2024 16:10-0500 Systolic blood pressure 118 mm[Hg] Jasmine Mathias MD Work Phone: [facility] 12-30-2023 09:19-0400 Body height 154.9 cm Shweta Maykel EXCELLENCE 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 MACHINE Work Phone: [facility] 12-30-2023 09:19-0400 Body mass index (BMI) [Ratio] 37.79 kg/m2 Shweta Beyerta EXCELLENCE 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 MACHINE Work Phone: [facility] 12-30-2023 09:19-0400 Body temperature 97.81 [degF] Shweta Beyerta EXCELLENCE 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 MACHINE Work Phone: [facility] 12-30-2023 09:19-0400 Body weight 90.72 kg Shweta Beyerta EXCELLENCE 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 MACHINE Work Phone: [facility] 12-30-2023 09:19-0400 Diastolic blood pressure 82 mm[Hg] Shweta Beyerta EXCELLENCE 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 MACHINE Work Phone: [facility] 12-30-2023 09:19-0400 Heart rate 79 /min Shweta Beyerta EXCELLENCE 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 MACHINE Work Phone: [facility] 12-30-2023 09:19-0400 Respiratory rate 14 /min Shweta Beyerta EXCELLENCE 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 MACHINE Work Phone: [facility] 12-30-2023 09:19-0400 SaO2% (BldA) [Mass fraction] 98 % Shweta Beyerta EXCELLENCE 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 MACHINE Work Phone: [facility] 12-30-2023 09:19-0400 Systolic blood pressure 128 mm[Hg] Shweta Beyerta EXCELLENCE 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 MACHINE Work Phone: [facility] 12-27-2023 15:13-0400 Body height 154.9 cm Jasmine Mathias MD Work Phone: [facility] 12-27-2023 15:13-0400 Body mass index (BMI) [Ratio] 38.56 kg/m2 Jasmine Mathias MD Work Phone: [facility] 12-27-2023 15:13-0400 Body weight 92.58 kg Jasmine Mathias MD Work Phone: [facility] 12-27-2023 15:13-0400 Diastolic blood pressure 78 mm[Hg] Jasmine Mathias MD Work Phone: [facility] 12-27-2023 15:13-0400 Heart rate 78 /min Jasmine Mathias MD Work Phone: [facility] 12-27-2023 15:13-0400 SaO2% (BldA) [Mass fraction] 95 % Jasmine Mathias MD Work Phone: [facility] 12-27-2023 15:13-0400 Systolic blood pressure 134 mm[Hg] Jasmine Mathias MD Work Phone: [facility] 12-12-2023 13:15-0400 Body height 154.9 cm Bryan Luz MD Work Phone: [facility] 12-12-2023 13:15-0400 Body mass index (BMI) [Ratio] 38.28 kg/m2 Bryan Luz MD Work Phone: [facility] 12-12-2023 13:15-0400 Body weight 91.9 kg Bryan Luz MD Work Phone: [facility] 12-12-2023 13:15-0400 Diastolic blood pressure 76 mm[Hg] Bryan Luz MD Work Phone: [facility] 12-12-2023 13:15-0400 Heart rate 69 /min Bryan Luz MD Work Phone: [facility] 12-12-2023 13:15-0400 Systolic blood pressure 122 mm[Hg] Bryan Luz MD Work Phone: [facility] 11-17-2023 13:54-0400 Body height 154.9 cm Mauricio Mancilla PA-C Work Phone: [facility] 11-17-2023 13:54-0400 Body mass index (BMI) [Ratio] 36.66 kg/m2 Mauricio Mancilla PA-C Work Phone: [facility] 11-17-2023 13:54-0400 Body weight 88 kg Mauricio Mancilla PA-C Work Phone: [facility] 11-17-2023 13:54-0400 Diastolic blood pressure 79 mm[Hg] Mauricio Mancilla PA-C Work Phone: [facility] 11-17-2023 13:54-0400 Heart rate 84 /min Mauricio Mancilla PA-C Work Phone: [facility] 11-17-2023 13:54-0400 Respiratory rate 20 /min Mauricio Mancilla PA-C Work Phone: [facility] 11-17-2023 13:54-0400 Systolic blood pressure 138 mm[Hg] Mauriciodeangelo Mancilla PA-C Work Phone: [facility] 11-10-2023 09:05-0400 Body height 154.9 cm Jasmine Mathias MD Work Phone: [facility] 11-10-2023 09:05-0400 Body mass index (BMI) [Ratio] 36.49 kg/m2 Jasmine Mathias MD Work Phone: [facility] 11-10-2023 09:05-0400 Body weight 87.59 kg Jasmine Mathias MD Work Phone: [facility] 11-10-2023 09:05-0400 Diastolic blood pressure 82 mm[Hg] Jasmine Mathias MD Work Phone: [facility] 11-10-2023 09:05-0400 Heart rate 93 /min Jasmine Mathias MD Work Phone: [facility] 11-10-2023 09:05-0400 SaO2% (BldA) [Mass fraction] 100 % Jasmine Mathias MD Work Phone: [facility] 11-10-2023 09:05-0400 Systolic blood pressure 140 mm[Hg] Jasmine Mathias MD Work Phone: [facility] 09-22-2023 12:48-0400 Body mass index (BMI) [Ratio] 36.66 kg/m2 Mauricio Mancilla PA-C Work Phone: [facility] 09-22-2023 12:48-0400 Body weight 88 kg Mauricio Mancilla PA-C Work Phone: [facility] 09-22-2023 12:48-0400 Diastolic blood pressure 84 mm[Hg] Mauricio Mancilla PA-C Work Phone: [facility] 09-22-2023 12:48-0400 Heart rate 105 /min Mauricio Mancilla PA-C Work Phone: [facility] 09-22-2023 12:48-0400 Systolic blood pressure 132 mm[Hg] Mauricio Mancilla PA-C Work Phone: [facility] 08-26-2023 12:10-0400 Body mass index (BMI) [Ratio] 35.9 kg/m2 [address] 08-26-2023 12:10-0400 Body temperature 97.5 [degF] [address] 08-26-2023 12:10-0400 Body weight 86.[address] 08-26-2023 12:10-0400 Diastolic blood pressure 84 mm[Hg] [address] 08-26-2023 12:10-0400 Heart rate 81 /min [address] 08-26-2023 12:10-0400 Respiratory rate 18 /min [address] 08-26-2023 12:10-0400 SaO2% (BldA) [Mass fraction] 96 % [address] 08-26-2023 12:10-0400 Systolic blood pressure 112 mm[Hg] [address] 08-15-2023 14:34-0400 Body height 154.9 cm Jasmine Mathias MD Work Phone: [facility] 08-15-2023 14:34-0400 Body mass index (BMI) [Ratio] 35.98 kg/m2 Jasmine Mathias MD Work Phone: [facility] 08-15-2023 14:34-0400 Body weight 86.36 kg Jasmine Mathias MD Work Phone: [facility] 08-15-2023 14:34-0400 Diastolic blood pressure 68 mm[Hg] Jasmine Mathias MD Work Phone: [facility] 08-15-2023 14:34-0400 Heart rate 90 /min Jasmine Mathias MD Work Phone: [facility] 08-15-2023 14:34-0400 SaO2% (BldA) [Mass fraction] 97 % Jasmine Mathias MD Work Phone: [facility] 08-15-2023 14:34-0400 Systolic blood pressure 116 mm[Hg] Jasmine Mathias MD Work Phone: [facility] 08-09-2023 07:53-0400 Body mass index (BMI) [Ratio] 36.09 kg/m2 Mauricio Mancilla PA-C Work Phone: [facility] 08-09-2023 07:53-0400 Body weight 86.64 kg Mauricio Mancilla PA-C Work Phone: [facility] 08-09-2023 07:53-0400 Diastolic blood pressure 82 mm[Hg] Mauricio Mancilla PA-C Work Phone: [facility] 08-09-2023 07:53-0400 Heart rate 94 /min Mauricio Mancilla PA-C Work Phone: [facility] 08-09-2023 07:53-0400 Respiratory rate 18 /min Mauricio Mancilla PA-C Work Phone: [facility] 08-09-2023 07:53-0400 Systolic blood pressure 142 mm[Hg] Mauricio Mancilla PA-C Work Phone: [facility] 07-26-2023 08:01-0400 Body mass index (BMI) [Ratio] 35.9 kg/m2 Mauricio Mancilla PA-C Work Phone: [facility] 07-26-2023 08:01-0400 Body weight 86.18 kg Mauricio Mancilla PA-C Work Phone: [facility] 07-26-2023 08:01-0400 Diastolic blood pressure 84 mm[Hg] Mauricio Mancilla PA-C Work Phone: [facility] 07-26-2023 08:01-0400 Heart rate 83 /min Muaricio Mancilla PA-C Work Phone: [facility] 07-26-2023 08:01-0400 Respiratory rate 16 /min Mauricio Mancilla PA-C Work Phone: [facility] 07-26-2023 08:01-0400 Systolic blood pressure 153 mm[Hg] Mauriciodeangelo Mancilla PA-C Work Phone: [facility] 05-13-2023 10:03-0500 Body height 154.9 cm Jasmine Mathias MD Work Phone: [facility] 05-13-2023 10:03-0500 Body mass index (BMI) [Ratio] 35.77 kg/m2 Jasmine Mathias MD Work Phone: [facility] 05-13-2023 10:03-0500 Body weight 85.87 kg Jasmine Mathias MD Work Phone: [facility] 05-13-2023 10:03-0500 Diastolic blood pressure 76 mm[Hg] Jasmine Mathias MD Work Phone: [facility] 05-13-2023 10:03-0500 Heart rate 72 /min Jasmine Mathias MD Work Phone: [facility] 05-13-2023 10:03-0500 Systolic blood pressure 122 mm[Hg] Jasmine Mathias MD Work Phone: [facility] 05-05-2023 14:27-0500 Body temperature 97.39 [degF] Roderick Jeter DPM Work Phone: [facility] 05-05-2023 14:27-0500 Diastolic blood pressure 81 mm[Hg] Roderick Jeter DPM Work Phone: [facility] 05-05-2023 14:27-0500 Heart rate 98 /min Roderick Jeter DPM Work Phone: [facility] 05-05-2023 14:27-0500 Systolic blood pressure 124 mm[Hg] Roderick Jeter DPM Work Phone: [facility] 04-05-2023 10:53-0500 Body height 154.9 cm Mauricio Mancilla PA-C Work Phone: [facility] 04-05-2023 10:53-0500 Body mass index (BMI) [Ratio] 35.33 kg/m2 Mauricio Mancilla PA-C Work Phone: [facility] 04-05-2023 10:53-0500 Body weight 84.82 kg Mauricio Mancilla PA-C Work Phone: [facility] 04-05-2023 10:53-0500 Diastolic blood pressure 75 mm[Hg] Mauricio Mancilla PA-C Work Phone: [facility] 04-05-2023 10:53-0500 Heart rate 89 /min Mauricio Mancilla PA-C Work Phone: [facility] 04-05-2023 10:53-0500 Respiratory rate 20 /min Mauricio Mancilla PA-C Work Phone: [facility] 04-05-2023 10:53-0500 Systolic blood pressure 139 mm[Hg] Mauricio Mancilla PA-C Work Phone: [facility] 03-24-2023 08:38-0500 Body temperature 97.3 [degF] Roderick Jeter DPM Work Phone: [facility] 03-24-2023 08:38-0500 Diastolic blood pressure 80 mm[Hg] Roderick Jeter DPM Work Phone: [facility] 03-24-2023 08:38-0500 Heart rate 82 /min Roderick Jeter DPM Work Phone: [facility] 03-24-2023 08:38-0500 Systolic blood pressure 133 mm[Hg] Roderick Jeter DPM Work Phone: [facility] 03-04-2023 11:21-0500 Diastolic blood pressure 85 mm[Hg] [address] 03-04-2023 11:21-0500 Heart rate 72 /min [address] 03-04-2023 11:21-0500 Respiratory rate 16 /min [address] 03-04-2023 11:21-0500 Systolic blood pressure 148 mm[Hg] [address] 03-04-2023 11:04-0500 Body temperature 98.01 [degF] [address] 03-04-2023 11:04-0500 SaO2% (BldA) [Mass fraction] 96 % [address] 03-04-2023 09:06-0500 Body height 154.[address] 03-04-2023 09:06-0500 Body mass index (BMI) [Ratio] 34.58 kg/m2 [address] 03-04-2023 09:06-0500 Body weight 83.[address] 02-24-2023 09:02-0500 Diastolic blood pressure 87 mm[Hg] Roderick Jeter DPM Work Phone: [facility] 02-24-2023 09:02-0500 Heart rate 85 /min Roderick Jeter DPM Work Phone: [facility] 02-24-2023 09:02-0500 Systolic blood pressure 153 mm[Hg] Roderick Jeter DPM Work Phone: [facility] 02-24-2023 08:57-0500 Body temperature 98.4 [degF] Roderick Evangelist DPM Work Phone: [facility] 02-03-2023 13:49-0500 Body temperature 97.9 [degF] Roderick Evangelist DPM Work Phone: [facility] 02-03-2023 13:49-0500 Diastolic blood pressure 59 mm[Hg] Roderick Evangelist DPM Work Phone: [facility] 02-03-2023 13:49-0500 Heart rate 106 /min Roderick Jeter DPM Work Phone: [facility] 02-03-2023 13:49-0500 Systolic blood pressure 128 mm[Hg] Roderick Evangelist DPM Work Phone: [facility] 02-02-2023 10:41-0500 Body height 154.9 cm Mary Carmen Tovar MD Work Phone: [facility] 02-02-2023 10:41-0500 Body mass index (BMI) [Ratio] 35.52 kg/m2 Mary Carmen Tovar MD Work Phone: [facility] 02-02-2023 10:41-0500 Body weight 85.28 kg Mary Carmen Tovar MD Work Phone: [facility] 02-02-2023 10:41-0500 Diastolic blood pressure 82 mm[Hg] Mary Carmen Tovar MD Work Phone: [facility] 02-02-2023 10:41-0500 Heart rate 86 /min Mary Carmen Tovar MD Work Phone: [facility] 02-02-2023 10:41-0500 Respiratory rate 16 /min Mary Carmen Tovar MD Work Phone: [facility] 02-02-2023 10:41-0500 SaO2% (BldA) [Mass fraction] 96 % Mary Carmen Tovar MD Work Phone: [facility] 02-02-2023 10:41-0500 Systolic blood pressure 120 mm[Hg] Mary Carmen Tovar MD Work Phone: [facility] 01-25-2023 09:11-0400 Body height 154.9 cm Mauricio Mancilla PA-C Work Phone: [facility] 01-25-2023 09:11-0400 Body mass index (BMI) [Ratio] 34.96 kg/m2 Mauricio Mancilla PA-C Work Phone: [facility] 01-25-2023 09:11-0400 Body weight 83.92 kg Mauricio Mancilla PA-C Work Phone: [facility] 01-25-2023 09:11-0400 Diastolic blood pressure 76 mm[Hg] Mauricio Mancilla PA-C Work Phone: [facility] 01-25-2023 09:11-0400 Heart rate 88 /min Mauricio Mancilla PA-C Work Phone: [facility] 01-25-2023 09:11-0400 Respiratory rate 16 /min Mauricio Mancilla PA-C Work Phone: [facility] 01-25-2023 09:11-0400 Systolic blood pressure 117 mm[Hg] Mauricio Mancilla PA-C Work Phone: [facility] 01-20-2023 13:31-0400 Body temperature 98.71 [degF] Roderick Jeter DPM Work Phone: [facility] 01-20-2023 13:31-0400 Diastolic blood pressure 79 mm[Hg] Roderick Jeter DPM Work Phone: [facility] 01-20-2023 13:31-0400 Heart rate 94 /min Roderick Jeter DPM Work Phone: [facility] 01-20-2023 13:31-0400 Systolic blood pressure 131 mm[Hg] Roderick Jeter DPM Work Phone: [facility] 01-07-2023 14:09-0400 Diastolic blood pressure 82 mm[Hg] Roderickdavid MoralesJeter DPM Work Phone: [facility] 01-07-2023 14:09-0400 Heart rate 102 /min Roderick Jeter DPM Work Phone: [facility] 01-07-2023 14:09-0400 Systolic blood pressure 142 mm[Hg] Roderick Jeter DPM Work Phone: [facility] 01-07-2023 14:05-0400 Body temperature 98.71 [degF] Roderick Jeter DPM Work Phone: [facility] 01-03-2023 11:32-0400 Body temperature 98.2 [degF] Roderick Jeter DPM Work Phone: [facility] 01-03-2023 11:32-0400 Diastolic blood pressure 87 mm[Hg] Roderickdavid Bayman DPM Work Phone: [facility] 01-03-2023 11:32-0400 Heart rate 80 /min Roderick Jeter DPM Work Phone: [facility] 01-03-2023 11:32-0400 Systolic blood pressure 132 mm[Hg] Roderick Jeter DPM Work Phone: [facility] 12-27-2022 10:59-0400 Diastolic blood pressure 84 mm[Hg] Roderickdavid MoralesJeter DPM Work Phone: [facility] 12-27-2022 10:59-0400 Systolic blood pressure 132 mm[Hg] Roderick Jeter DPM Work Phone: [facility] 12-27-2022 10:55-0400 Body temperature 98.6 [degF] Roderickdavid MoralesJeter DPM Work Phone: [facility] 12-27-2022 10:55-0400 Heart rate 75 /min Roderick Bayman DPM Work Phone: [facility] 12-26-2022 18:08-0400 Diastolic blood pressure 82 mm[Hg] Zachery Perez MD Work Phone: [facility] 12-26-2022 18:08-0400 Heart rate 70 /min Zachery Perez MD Work Phone: [facility] 12-26-2022 18:08-0400 Respiratory rate 20 /min Zachery Perez MD Work Phone: [facility] 12-26-2022 18:08-0400 SaO2% (BldA) [Mass fraction] 100 % Zachery Perez MD Work Phone: [facility] 12-26-2022 18:08-0400 Systolic blood pressure 152 mm[Hg] Zachery Perez MD Work Phone: [facility] 12-26-2022 15:37-0400 Body height 154.9 cm Zachery Perez MD Work Phone: [facility] 12-26-2022 15:37-0400 Body mass index (BMI) [Ratio] 34.96 kg/m2 Zachery Perez MD Work Phone: [facility] 12-26-2022 15:37-0400 Body temperature 97.59 [degF] Zachery Perez MD Work Phone: [facility] 12-26-2022 15:37-0400 Body weight 83.92 kg Zachery Perez MD Work Phone: [facility] 12-16-2022 11:03-0400 Body height 154.94 cm Jasmine Mathias Work Phone: [facility] Work Phone: 12-16-2022 11:03-0400 Body mass index (BMI) [Ratio] 34.77 kg/m2 Jasmine Mathias Work Phone: [facility] Work Phone: 12-16-2022 11:03-0400 Body surface area Derived from formula 1.82 m2 Jasmine Mathias Work Phone: [facility] Work Phone: 12-16-2022 11:03-0400 Body weight 83.46 kg Jasmine Mathias Work Phone: [facility] Work Phone: 12-16-2022 11:03-0400 Diastolic blood pressure 87 mm[Hg] Jasmine Mathias Work Phone: [facility] Work Phone: 12-16-2022 11:03-0400 Heart rate 87 /min Jasmine Mathias Work Phone: [facility] Work Phone: 12-16-2022 11:03-0400 Respiratory rate 16 /min Jasmine Mathias Work Phone: [facility] Work Phone: 12-16-2022 11:03-0400 Systolic blood pressure 148 mm[Hg] Jasmine Mathias Work Phone: [facility] Work Phone: 12-08-2022 13:38-0400 Diastolic blood pressure 78 mm[Hg] Ana Estrada MD Work Phone: [facility] 12-08-2022 13:38-0400 Systolic blood pressure 128 mm[Hg] Ana Estrada MD Work Phone: [facility] 12-08-2022 13:10-0400 Body height 154.9 cm Ana Estrada MD Work Phone: [facility] 12-08-2022 13:10-0400 Body mass index (BMI) [Ratio] 34.41 kg/m2 Ana Estrada MD Work Phone: [facility] 12-08-2022 13:10-0400 Body weight 82.6 kg Ana Estrada MD Work Phone: [facility] 12-08-2022 13:10-0400 Heart rate 56 /min Ana Estrada MD Work Phone: [facility] 11-10-2022 10:14-0400 Body mass index (BMI) [Ratio] 34.37 kg/m2 Jasmine Mathias MD Work Phone: [facility] 11-10-2022 10:14-0400 Body weight 82.51 kg Jasmine Mathias MD Work Phone: [facility] 11-10-2022 10:14-0400 Diastolic blood pressure 74 mm[Hg] Jasmine Mathias MD Work Phone: [facility] 11-10-2022 10:14-0400 Systolic blood pressure 112 mm[Hg] Jasmine Mathias MD Work Phone: [facility] 09-30-2022 14:47-0400 Body height 154.9 cm Jasmine Mathias MD Work Phone: [facility] 09-30-2022 14:47-0400 Body mass index (BMI) [Ratio] 34.03 kg/m2 Jasmine Mathias MD Work Phone: [facility] 09-30-2022 14:47-0400 Body weight 81.69 kg Jasmine Mathias MD Work Phone: [facility] 09-30-2022 14:47-0400 Diastolic blood pressure 82 mm[Hg] Jasmine Mathias MD Work Phone: [facility] 09-30-2022 14:47-0400 Heart rate 82 /min Jasmine Mathias MD Work Phone: [facility] 09-30-2022 14:47-0400 SaO2% (BldA) [Mass fraction] 96 % Jasmine Mathias MD Work Phone: [facility] 09-30-2022 14:47-0400 Systolic blood pressure 150 mm[Hg] Jasmine Mathias MD Work Phone: [facility] 09-27-2022 15:07-0400 Body height 155 cm Jasmine Mathias Other Phone: [facility] 09-27-2022 15:07-0400 Body temperature 97.7 [degF] Jasmine Mathias Other Phone: [facility] 09-27-2022 15:07-0400 Diastolic blood pressure 84 mm[Hg] Jasmine Mathias Other Phone: [facility] 09-27-2022 15:07-0400 Heart rate 88 /min Jasmine Mathias Other Phone: [facility] 09-27-2022 15:07-0400 Respiratory rate 16 /min Jasmine Mathias Other Phone: [facility] 09-27-2022 15:07-0400 SaO2% (BldA) [Mass fraction] 96 % Jasmine Mathias Other Phone: [facility] 09-27-2022 15:07-0400 Systolic blood pressure 159 mm[Hg] Jasmine Mathias Other Phone: [facility] 05-12-2022 09:08-0500 Body height 154.94 cm Jasmine Mathias [place] [facility] [place]: 05-12-2022 09:08-0500 Body mass index (BMI) [Ratio] 33.11 kg/m2 Jasmine Mathias Work Phone[place] [facility] [place] Phone: 05-12-2022 09:08-0500 Body surface area Derived from formula 1.79 m2 Jasmine Mathias Work Phone: [employer] [employer] [facility] Work Phone: 05-12-2022 09:08-0500 Body weight 79.49 kg Jasmine Mathias Work Phone: [employer] [place] [employer] [facility] Work Phone: 05-12-2022 09:08-0500 Diastolic blood pressure 60 mm[Hg] Jasmine Mathias Work Phone: [employer] [facility] Work Phone: 05-12-2022 09:08-0500 Heart rate 58 /min Jasmine Mathias Work Phone: [employer] [place] [employer] [facility] Work Phone: 05-12-2022 09:08-0500 SaO2% (BldA) [Mass fraction] 98 % Jasmine Mathias Work Phone: [employer] [facility] Work Phone: 05-12-2022 09:08-0500 Systolic blood pressure 120 mm[Hg] Jasmine Mathias Work Phone: [employer] [place] [employer] [facility] Work Phone: 05-10-2022 11:04-0500 Body height 155 cm Jasmine Mathias Other Phone: [facility] 05-10-2022 11:04-0500 Body temperature 97.52 [degF] Jasmine Mathias Other Phone: [facility] 05-10-2022 11:04-0500 Diastolic blood pressure 91 mm[Hg] Jasmine Mathias Other Phone: [facility] 05-10-2022 11:04-0500 Heart rate 76 /min Jasmine Mathias Other Phone: [facility] 05-10-2022 11:04-0500 Respiratory rate 14 /min Jasmine Mathias Other Phone: [facility] 05-10-2022 11:04-0500 SaO2% (BldA) [Mass fraction] 95 % Jasmine Mathias Other Phone: [facility] 05-10-2022 11:04-0500 Systolic blood pressure 139 mm[Hg] Jasmine Mathias Other Phone: [facility] 04-07-2022 08:51-0500 Body height 154.9 cm Delvis Moncada MD Work Phone: [facility] 04-07-2022 08:51-0500 Body mass index (BMI) [Ratio] 32.74 kg/m2 Delvis Moncada MD Work Phone: [facility] 04-07-2022 08:51-0500 Body weight 78.61 kg Delvis Moncada MD Work Phone: [facility] 04-07-2022 08:51-0500 Diastolic blood pressure 89 mm[Hg] Delvis Moncada MD Work Phone: [facility] 04-07-2022 08:51-0500 Heart rate 88 /min Delvis Moncada MD Work Phone: [facility] 04-07-2022 08:51-0500 SaO2% (BldA) [Mass fraction] 93 % Delvis Moncada MD Work Phone: [facility] 04-07-2022 08:51-0500 Systolic blood pressure 160 mm[Hg] Delvis Moncada MD Work Phone: [facility] 03-02-2022 08:34-0500 Body mass index (BMI) [Ratio] 32.31 kg/m2 Maira Hamilton [employer] Work Phone: [facility] 03-02-2022 08:34-0500 Body weight 77.56 kg Maira Hamilton [employer] Work Phone: [facility] 03-02-2022 08:34-0500 Diastolic blood pressure 88 mm[Hg] Maira Hamilton CNP Work Phone: [facility] 03-02-2022 08:34-0500 Heart rate 76 /min Maira Hamilton CNP Work Phone: [facility] 03-02-2022 08:34-0500 SaO2% (BldA) [Mass fraction] 100 % Maira Hamilton CNP Work Phone: [facility] 03-02-2022 08:34-0500 Systolic blood pressure 143 mm[Hg] Maira Hamilton CNP Work Phone: [facility] 02-01-2022 08:56-0500 Body height 154.94 cm Jasmine Mathias Work Phone: [facility] Work Phone: 02-01-2022 08:56-0500 Body mass index (BMI) [Ratio] 31.66 kg/m2 Jasmine Mathias Work Phone: [facility] Work Phone: 02-01-2022 08:56-0500 Body surface area Derived from formula 1.75 m2 Jasmine Mathias Work Phone: [facility] Work Phone: 02-01-2022 08:56-0500 Body weight 76.01 kg Jasmine Mathias Work Phone: [facility] Work Phone: 02-01-2022 08:56-0500 Diastolic blood pressure 82 mm[Hg] Jasmine Mathias Work Phone: [facility] Work Phone: 02-01-2022 08:56-0500 Heart rate 70 /min Jasmine Mathias Work Phone: [facility] Work Phone: 02-01-2022 08:56-0500 SaO2% (BldA) [Mass fraction] 100 % Jasmine Logan Vic Work Phone: [facility] Work Phone: 02-01-2022 08:56-0500 Systolic blood pressure 110 mm[Hg] Jasmine Logan Vic Work Phone: [facility] Work Phone: 01-21-2022 11:11-0400 Body height 154.9 cm Delvis Moncada MD Work Phone: [facility] 01-21-2022 11:11-0400 Body mass index (BMI) [Ratio] 32.01 kg/m2 Delvis Moncada MD Work Phone: [facility] 01-21-2022 11:11-0400 Body weight 76.84 kg Delvis Moncada MD Work Phone: [facility] 01-21-2022 11:11-0400 Diastolic blood pressure 99 mm[Hg] Delvis Moncada MD Work Phone: [facility] 01-21-2022 11:11-0400 Heart rate 70 /min Delvis Moncada MD Work Phone: [facility] 01-21-2022 11:11-0400 SaO2% (BldA) [Mass fraction] 98 % Delvis Moncada MD Work Phone: [facility] 01-21-2022 11:11-0400 Systolic blood pressure 167 mm[Hg] Delvis Moncada MD Work Phone: [facility] 01-05-2022 13:03-0400 Body height 154.94 cm Jasmine Logan Vic Work Phone: [facility] 300 Work Phone: 01-05-2022 13:03-0400 Body mass index (BMI) [Ratio] 31.18 kg/m2 Jasmine Logan Vic Work Phone: [facility] 300 Work Phone: 01-05-2022 13:03-0400 Body surface area Derived from formula 1.74 m2 Jasmine Mathias Work Phone: [facility] 300 Work Phone: 01-05-2022 13:03-0400 Body temperature 97.8 [degF] Jasminegregoria Mathias Work Phone: [facility] 300 Work Phone: 01-05-2022 13:03-0400 Body weight 74.84 kg Jasminegregoria Mathias Work Phone: [facility] 300 Work Phone: 01-04-2022 08:41-0400 Body height 156.2 cm Mary Carmen Tovar MD Work Phone: [facility] 01-04-2022 08:41-0400 Body mass index (BMI) [Ratio] 31.45 kg/m2 Mary Carmen Tovar MD Work Phone: [facility] 01-04-2022 08:41-0400 Body weight 76.75 kg Mary Carmen Tovar MD Work Phone: [facility] 01-04-2022 08:41-0400 Diastolic blood pressure 84 mm[Hg] Mary Carmen Tovar MD Work Phone: [facility] 01-04-2022 08:41-0400 Heart rate 78 /min Mary Carmen Tovar MD Work Phone: [facility] 01-04-2022 08:41-0400 Respiratory rate 16 /min Mary Carmen Tovar MD Work Phone: [facility] 01-04-2022 08:41-0400 Systolic blood pressure 138 mm[Hg] Mary Carmen Tovar MD Work Phone: [facility] 12-10-2021 09:49-0400 Body mass index (BMI) [Ratio] 31.18 kg/m2 Jasmine Mathias Work Phone: [facility] 300 Work Phone: 12-10-2021 09:49-0400 Body surface area Derived from formula 1.74 m2 Jasmine Mathias Work Phone: [facility] 300 Work Phone: 12-10-2021 09:49-0400 Body temperature 97.1 [degF] Jasmine Mathias Work Phone: [facility] 300 Work Phone: 12-10-2021 09:49-0400 Body weight 74.84 kg Jasmine Mathias Work Phone: [facility] 300 Work Phone: 11-26-2021 08:31-0400 Body height 154.9 cm Delvis Moncada MD Work Phone: [facility] 11-26-2021 08:31-0400 Body mass index (BMI) [Ratio] 31.57 kg/m2 Delvis Moncada MD Work Phone: [facility] 11-26-2021 08:31-0400 Body weight 75.8 kg Delvis Moncada MD Work Phone: [facility] 11-26-2021 08:31-0400 Diastolic blood pressure 81 mm[Hg] Delvis Moncada MD Work Phone: [facility] 11-26-2021 08:31-0400 Heart rate 67 /min Delvis Moncada MD Work Phone: [facility] 11-26-2021 08:31-0400 SaO2% (BldA) [Mass fraction] 98 % Delvis Moncada MD Work Phone: [facility] 11-26-2021 08:31-0400 Systolic blood pressure 133 mm[Hg] Delvis Moncada MD Work Phone: [facility] 11-11-2021 09:10-0400 Body height 154.94 cm Jasmine Mathias Work Phone: [facility] 205 DO Work Phone: 11-11-2021 09:10-0400 Body mass index (BMI) [Ratio] 31.28 kg/m2 Jasmine Mathias Work Phone: [facility] 205 DO Work Phone: 11-11-2021 09:10-0400 Body surface area Derived from formula 1.74 m2 Jasmine Mathias Work Phone: [facility] 205 DO Work Phone: 11-11-2021 09:10-0400 Body weight 75.1 kg Jasmine Mathias Work Phone: [facility] 205 DO Work Phone: 11-11-2021 09:10-0400 Diastolic blood pressure 80 mm[Hg] Jasmine Mathias Work Phone: [facility] 205 DO Work Phone: 11-11-2021 09:10-0400 Heart rate 80 /min Jasmine Mathias Work Phone: [facility] 205 DO Work Phone: 11-11-2021 09:10-0400 SaO2% (BldA) [Mass fraction] 98 % Jasmine Mathias Work Phone: [facility] 205 DO Work Phone: 11-11-2021 09:10-0400 Systolic blood pressure 110 mm[Hg] Jasmine Mathias Work Phone: [facility] 205 DO Work Phone: 05-13-2021 09:07-0500 Body height 154.94 cm Jasmine Mathias Work Phone: [facility] Work Phone: 05-13-2021 09:07-0500 Body mass index (BMI) [Ratio] 31.8 kg/m2 Jasmine Mathias Work Phone: [facility] Work Phone: 05-13-2021 09:07-0500 Body surface area Derived from formula 1.76 m2 Jasmine Mathias Work Phone: [facility] Work Phone: 05-13-2021 09:07-0500 Body temperature 97.5 [degF] Jasmine Mathias Work Phone: [facility] Work Phone: 05-13-2021 09:07-0500 Body weight 76.35 kg Jasmine Mathias Work Phone: [facility] Work Phone: 05-13-2021 09:07-0500 Diastolic blood pressure 80 mm[Hg] Jasmine Mathias Work Phone: [facility] Work Phone: 05-13-2021 09:07-0500 Heart rate 80 /min Jasmine Mathias Work Phone: [facility] Work Phone: 05-13-2021 09:07-0500 SaO2% (BldA) [Mass fraction] 98 % Jasmine Mathias Work Phone: [facility] Work Phone: 05-13-2021 09:07-0500 Systolic blood pressure 132 mm[Hg] Jasmine Mathias Work Phone: [facility] Work Phone: 03-26-2021 12:16-0500 Body height 154.9 cm Jasmine Mathias Other Phone: [facility] 03-26-2021 12:16-0500 Body temperature 97.52 [degF] Jasmine Mathias Other Phone: [facility] 03-26-2021 12:16-0500 Diastolic blood pressure 85 mm[Hg] Jasmine Mathias Other Phone: [facility] 03-26-2021 12:16-0500 Heart rate 86 /min Jasmine Mathias Other Phone: [facility] 03-26-2021 12:16-0500 SaO2% (BldA) [Mass fraction] 100 % Jasmine Mathias Other Phone: [facility] 03-26-2021 12:16-0500 Systolic blood pressure 141 mm[Hg] Jasmine Mathias Other Phone: [facility] 11-25-2020 07:35-0400 Body temperature 98.1 [degF] Nevaeh Humphrey DPM Work Phone: [facility] 11-25-2020 07:35-0400 Diastolic blood pressure 74 mm[Hg] Nevaeh Humphrey DPM Work Phone: [facility] 11-25-2020 07:35-0400 Heart rate 86 /min Nevaeh Minnie DPM Work Phone: [facility] 11-25-2020 07:35-0400 Systolic blood pressure 122 mm[Hg] Nevaeh Humphrey DPM Work Phone: [facility] 11-05-2020 09:52-0400 Body height 154.94 cm Jasminegregoria Humphriesorf Work Phone: [facility] Work Phone: 11-05-2020 09:52-0400 Body mass index (BMI) [Ratio] 31.61 kg/m2 Jasmine Mathias Work Phone: [facility] Work Phone: 11-05-2020 09:52-0400 Body surface area Derived from formula 1.75 m2 Jasmine Mathias Work Phone: [facility] Work Phone: 11-05-2020 09:52-0400 Body temperature 97.7 [degF] Jasmine Mathias Work Phone: [facility] Work Phone: 11-05-2020 09:52-0400 Body weight 75.89 kg Jasmine Mathias Work Phone: [facility] Work Phone: 11-05-2020 09:52-0400 Diastolic blood pressure 82 mm[Hg] Jasmine Mathias Work Phone: [facility] Work Phone: 11-05-2020 09:52-0400 Heart rate 76 /min Jasmine Mathias Work Phone: [facility] Work Phone: 11-05-2020 09:52-0400 Systolic blood pressure 120 mm[Hg] Jasmine Mathias Work Phone: [facility] Work Phone: 10-28-2020 07:27-0400 Body temperature 97.7 [degF] Nevaeh Humphrey [facility] Work Phone: [facility] 10-28-2020 07:27-0400 Diastolic blood pressure 86 mm[Hg] Nevaeh Minnie DPM Work Phone: [facility] 10-28-2020 07:27-0400 Heart rate 85 /min Nevaeh Minnie DPM Work Phone: [facility] 10-28-2020 07:27-0400 Systolic blood pressure 145 mm[Hg] Nevaeh Humphrey DPM Work Phone: [facility] 10-26-2020 22:50-0400 Diastolic blood pressure 87 mm[Hg] Jasmine Humphriestherese Other Phone: [facility] 10-26-2020 22:50-0400 Heart rate 71 /min Jasmine Mathias Other Phone: [facility] 10-26-2020 22:50-0400 Respiratory rate 16 /min Jasmine Mathias Other Phone: [facility] 10-26-2020 22:50-0400 SaO2% (BldA) [Mass fraction] 98 % Jasmine Mathias Other Phone: [facility] 10-26-2020 22:50-0400 Systolic blood pressure 128 mm[Hg] Jasmine Mathias Other Phone: [facility] 10-26-2020 20:46-0400 Body height 154.9 cm Jasmine Mathias Other Phone: [facility] 10-26-2020 20:46-0400 Body temperature 98.24 [degF] Jasmine Mathias Other Phone: [facility] 10-26-2020 20:46-0400 Body weight 76.4 kg Jasmine Mathias Other Phone: [facility] 09-15-2020 11:11-0400 Body height 149.86 cm Jasmine Mathias Work Phone: [facility] Work Phone: 09-15-2020 11:11-0400 Body mass index (BMI) [Ratio] 33.93 kg/m2 Jasmine Humphriesorf Work Phone: [facility] Work Phone: 09-15-2020 11:11-0400 Body surface area Derived from formula 1.71 m2 Jasmine Humphriesorf Work Phone: [facility] Work Phone: 09-15-2020 11:11-0400 Body temperature 98 [degF] Jasmine Humphriesorf Work Phone: [facility] Work Phone: 09-15-2020 11:11-0400 Body weight 76.2 kg Jasmine Mathias Work Phone: [facility] Work Phone: 09-15-2020 11:11-0400 Diastolic blood pressure 76 mm[Hg] Jasmine Humphriesorf Work Phone: [facility] Work Phone: 09-15-2020 11:11-0400 Heart rate 86 /min Jasmine Mathias Work Phone: [facility] Work Phone: 09-15-2020 11:11-0400 Respiratory rate 12 /min Jasmine Humphriesorf Work Phone: [facility] Work Phone: 09-15-2020 11:11-0400 Systolic blood pressure 124 mm[Hg] Jasmine Humphriesorf Work Phone: [facility] Work Phone: 08-05-2020 10:16-0400 Body mass index (BMI) [Ratio] 34.13 kg/m2 Jasmine Humphriesorf Work Phone: [facility] Work Phone: 08-05-2020 10:16-0400 Body surface area Derived from formula 1.72 m2 Jasmine Mathias Work Phone: [facility] Work Phone: 08-05-2020 10:16-0400 Body temperature 97.2 [degF] Jasmine Mathias Work Phone: [facility] Work Phone: 08-05-2020 10:16-0400 Body weight 76.66 kg Jasmine Mathias Work Phone: [facility] Work Phone: 08-05-2020 10:16-0400 Diastolic blood pressure 84 mm[Hg] Jasmine Mathias Work Phone: [facility] Work Phone: 08-05-2020 10:16-0400 Heart rate 73 /min Jasmine Mathias Work Phone: [facility] Work Phone: 08-05-2020 10:16-0400 Respiratory rate 14 /min Jasmine Mathias Work Phone: [facility] Work Phone: 08-05-2020 10:16-0400 Systolic blood pressure 123 mm[Hg] [facility] Work Phone: [facility] Work Phone: 05-07-2020 12:30-0500 BMI (Body Mass Index) 34.13 kg/m2 Jasmine Mathias [facility] Work Phone: 05-07-2020 12:30-0500 Body Temperature 97.1 [degF] Jasmine Mathias [facility] Work Phone: 05-07-2020 12:30-0500 Body weight 76.66 kg Jasmine Mathias [facility] Work Phone: 05-07-2020 12:30-0500 BP Diastolic 80 mm[Hg] Jasmine Mathias [facility] Work Phone: 05-07-2020 12:30-0500 BP Systolic 120 mm[Hg] Jasmine Mathias [facility] Work Phone: 05-07-2020 12:30-0500 BSA (Body Surface Area) 1.72 m2 Jasmine Mathias [facility] Work Phone: 05-07-2020 12:30-0500 Height 149.86 cm Jasmine Mathias [facility] Work Phone: 04-29-2020 15:22-0500 BMI (Body Mass Index) 33.93 kg/m2 Jasmine Mathias [facility] Work Phone: 04-29-2020 15:22-0500 Body Temperature 97.9 [degF] Jasmine Mathias [facility] Work Phone: 04-29-2020 15:22-0500 Body weight 76.2 kg Jasmine Mathias [facility] Work Phone: 04-29-2020 15:22-0500 BP Diastolic 84 mm[Hg] Jasmine Mathias [facility] Work Phone: 04-29-2020 15:22-0500 BP Systolic 148 mm[Hg] Jasmine Mathias [facility] Work Phone: 04-29-2020 15:22-0500 BSA (Body Surface Area) 1.71 m2 [facility] Work Phone: 04-29-2020 15:22-0500 Height 149.86 cm [facility] Work Phone: 04-29-2020 15:22-0500 Pulse (Heart Rate) 83 /min [facility] Work Phone: 04-29-2020 15:22-0500 Respiratory Rate 16 /min [facility] Work Phone: 04-18-2020 11:08-0500 BMI (Body Mass Index) 34.39 kg/m2 [facility] [employer] Work Phone: 04-18-2020 11:08-0500 Body Temperature 97.1 [degF] [facility] [employer] Work Phone: 04-18-2020 11:08-0500 Body weight 77.23 kg [facility] [employer] Work Phone: 04-18-2020 11:08-0500 BP Diastolic 80 mm[Hg] [facility] [facility] [employer] Work Phone: 04-18-2020 11:08-0500 BP Systolic 130 mm[Hg] [facility] [facility] [employer] Work Phone: 04-18-2020 11:08-0500 BSA (Body Surface Area) 1.72 m2 [facility] [employer] Work Phone: 04-18-2020 11:08-0500 Height 149.86 cm [facility] [employer] [employer] Work Phone: 04-18-2020 11:08-0500 Pulse (Heart Rate) 72 /min Jasmine Mathias [facility] [employer] Work Phone: 01-03-2020 09:24-0400 BMI (Body Mass Index) 33.44 kg/m2 [facility] 01-03-2020 09:24-0400 Body Temperature 97.59 [degF] [facility] 01-03-2020 09:24-0400 Body weight 80.29 kg [facility] 01-03-2020 09:24-0400 BP Diastolic 83 mm[Hg] [facility] tem 01-03-2020 09:24-0400 BP Systolic 137 mm[Hg] [facility] tem 01-03-2020 09:24-0400 Height 154.9 cm [facility] tem 01-03-2020 09:24-0400 Pulse (Heart Rate) 73 /min [facility] 11-21-2019 12:08-0400 BMI (Body Mass Index) 35.55 kg/m2 [facility] Work Phone: 11-21-2019 12:08-0400 Body Temperature 97.5 [degF] [facility] Work Phone: 11-21-2019 12:08-0400 Body weight 79.83 kg [facility] Work Phone: 11-21-2019 12:08-0400 BP Diastolic 84 mm[Hg] [facility] Work Phone: 11-21-2019 12:08-0400 BP Systolic 140 mm[Hg] [facility] Work Phone: 11-21-2019 12:08-0400 BSA (Body Surface Area) 1.75 m2 [facility] Work Phone: 11-21-2019 12:08-0400 Height 149.86 cm Jasmine Mathias [facility] Work Phone: 11-21-2019 12:08-0400 Pulse (Heart Rate) 75 /min Jasmine Mathias [facility] Work Phone: 06-11-2019 09:08-0400 BMI (Body Mass Index) 36.66 kg/m2 [facility] 06-11-2019 09:08-0400 Body Temperature 98.01 [degF] [facility] 06-11-2019 09:08-0400 Body weight 88 kg [facility] 06-11-2019 09:08-0400 BP Diastolic 81 mm[Hg] [facility] 06-11-2019 09:08-0400 BP Systolic 156 mm[Hg] [facility] 06-11-2019 09:08-0400 Height 154.9 cm [facility] 06-11-2019 09:08-0400 Pulse (Heart Rate) 73 /min [facility] 06-11-2019 09:08-0400 Pulse Oximetry 98 % [facility] 02-20-2019 11:25-0500 Body Temperature 98.49 [degF] [facility] [address] [place] [address] 02-20-2019 11:25-0500 BP Diastolic 58 mm[Hg] [facility] 02-20-2019 11:25-0500 BP Systolic 104 mm[Hg] [facility] 2 [facility] 02-20-2019 11:25-0500 Pulse (Heart Rate) 88 /min [facility] [address] [place] [address] 02-20-2019 11:25-0500 Pulse Oximetry 99 % [facility] 2 [facility] 02-20-2019 11:25-0500 Respiratory Rate 16 /min [facility] 2 [facility] 02-20-2019 10:05-0500 BMI (Body Mass Index) 36.39 kg/m2 [facility] 02-20-2019 10:05-0500 Body weight 87.36 kg [facility] 2 [facility] 03-09-2018 11:40-0500 BMI (Body Mass Index) 38.04 kg/m2 [facility] 03-09-2018 11:40-0500 Body Temperature 98.8 [degF] [facility] 03-09-2018 11:40-0500 BP Diastolic 93 mm[Hg] [facility] 03-09-2018 11:40-0500 BP Systolic 136 mm[Hg] [facility] 03-09-2018 11:40-0500 Height 154.9 cm [facility] 03-09-2018 11:40-0500 Pulse (Heart Rate) 106 /min [facility] 03-09-2018 11:40-0500 Pulse Oximetry 98 % [facility] 03-09-2018 11:40-0500 Weight 91.31 kg [facility] 02-03-2018 09:06-0500 BMI (Body Mass Index) 39.28 kg/m2 [facility] 02-03-2018 09:06-0500 Body Temperature 98.49 [degF] [facility] 02-03-2018 09:06-0500 BP Diastolic 83 mm[Hg] [facility] 02-03-2018 09:06-0500 BP Systolic 177 mm[Hg] [facility] 02-03-2018 09:06-0500 Height 154.9 cm [facility] 02-03-2018 09:06-0500 Pulse (Heart Rate) 99 /min [facility] 02-03-2018 09:06-0500 Pulse Oximetry 96 % [facility] 02-03-2018 09:06-0500 Weight 94.3 kg [facility] 12-15-2017 11:54-0400 BMI (Body Mass Index) 40.95 kg/m2 [facility] 12-15-2017 11:54-0400 Body Temperature 97.81 [degF] [facility] 12-15-2017 11:54-0400 BP Diastolic 92 mm[Hg] [facility] 12-15-2017 11:54-0400 BP Systolic 160 mm[Hg] [facility] 12-15-2017 11:54-0400 Height 154.9 cm [facility] 12-15-2017 11:54-0400 Pulse (Heart Rate) 70 /min [facility] 12-15-2017 11:54-0400 Pulse Oximetry 98 % [facility] 12-15-2017 11:54-0400 Weight 98.29 kg [facility] 10-20-2017 12:59-0400 BMI (Body Mass Index) 40.38 kg/m2 [facility] 10-20-2017 12:59-0400 Body Temperature 98.2 [degF] [facility] 10-20-2017 12:59-0400 BP Diastolic 80 mm[Hg] [facility] 10-20-2017 12:59-0400 BP Systolic 132 mm[Hg] [facility] 10-20-2017 12:59-0400 Height 154.9 cm [facility] 10-20-2017 12:59-0400 Pulse (Heart Rate) 90 /min [facility] 10-20-2017 12:59-0400 Pulse Oximetry 94 % [facility] [facility] 10[facility]2017 12:59-0400 Weight 96.93 kg [facility] 08-24-2017 12:53-0400 BMI (Body Mass Index) 40.6 kg/m2 [facility] 08-24-2017 12:53-0400 Body Temperature 98.1 [degF] [facility] 08-24-2017 12:53-0400 BP Diastolic 75 mm[Hg] [facility] 08-24-2017 12:53-0400 BP Systolic 148 mm[Hg] [facility] 08-24-2017 12:53-0400 Height 156.2 cm [facility] 08-24-2017 12:53-0400 Pulse (Heart Rate) 70 /min [facility] 08-24-2017 12:53-0400 Pulse Oximetry 95 % [facility] 08-24-2017 12:53-0400 Weight 99.07 kg [facility] 07-27-2017 10:08-0400 BMI (Body Mass Index) 42.23 kg/m2 [facility] 07-27-2017 10:08-0400 Body Temperature 97.9 [degF] [facility] 07-27-2017 10:08-0400 BP Diastolic 71 mm[Hg] [facility] 07-27-2017 10:08-0400 BP Systolic 145 mm[Hg] [facility] 07-27-2017 10:08-0400 Height 156.2 cm [facility] 07-27-2017 10:08-0400 Pulse (Heart Rate) 76 /min [facility] 07-27-2017 10:08-0400 Pulse Oximetry 98 % [facility] 07-27-2017 10:08-0400 Weight 103.06 kg [facility] 07-25-2017 15:05-0400 BMI (Body Mass Index) 42.97 kg/m2 Yung Hernández [facility] 07-25-2017 15:05-0400 Height 152.4 cm Yung Hernández [facility] 07-25-2017 15:05-0400 Weight 99.79 kg Yungtashia Hernández [facility] Encounters Encounter Date Encounter Type Care Provider Facility Start: 09-18-2024 ambulatory Jasmine Mathias [facility] ility:[facility] Start: 09-17-2024 Encounter for other preprocedural examination Elia Villegas [facility] Start: 09-14-2024 End: 09-14-2024 Office outpatient visit 15 minutes Bar Triana DPM Work Phone: [facility] Comment on above: Injury of toe on rig ht foot, initial encounter (Primary Dx); History of bunionectomy of left great toe Start: 09-14-2024 End: 09-14-2024 ambulatory BAR [facility]ANA JR[facility] Start: 09-10-2024 End: 09-10-2024 Emergency department patient visit Sanjuana Bills DO Work Phone: [facility] Comment on above: Gastroenteritis (Fanny marva Dx) Start: 09-07-2024 End: 09-07-[address] Elia Villegas MD -[facility] Work Phone: Start: 09-07-2024 End: 09-07-[address] Jasmine Mathias MD Work Phone: [facility] Work Phone: Start: 09-07-2024 End: 09-07-2024 ambulatory Jasmine Mathias Facility:[facility] Start: 08-31-2024 End: 08-31-2024 Office outpatient visit 25 minutes Jasmine Mathias MD Work Phone: [facility] Comment on above: Anterolisthesis of c ervical spine (Primary Dx); Cervical radiculitis; Gastroesophageal reflux disease without esophagitis; Primary hypertension; Hypercholesteremia; Osteoporosis, unspecified osteoporosis type, unspecified pathological fracture presence; Rheumatoid arthritis involving multiple sites, unspecified whether rheumatoid factor present (Multi) Start: 08-31-2024 End: 08-31-2024 ambulatory JASMINE Logan [facility] Start: 08-24-2024 End: 08-24-2024 Office outpatient visit 15 minutes Bar Triana DPM Work Phone: [facility] Comment on above: Injury of toe on rig ht foot, initial encounter (Primary Dx) Start: 08-24-2024 End: 08-28-2024 ambulatory BAR TRIANA JR. [facility] Start: 08-14-2024 End: 08-14-2024 ambulatory JASMINE COUGHLINNDTHERESE [facility] Start: 08-10-2024 End: 08-10-[address] Jw Simons MD -[facility] Start: 08-10-2024 End: 08-10-[address] Jasmine Mathias MD Work Phone: [facility] Work Phone: Start: 08-06-2024 End: 08-06-2024 ambulatory MARY CARMEN TOVAR [facility] Start: 08-06-2024 ambulatory MARY CARMEN TOVAR [facility] Start: 07-27-2024 [facility] Start: 07-17-2024 End: 07-17-2024 Subsequent hospital visit by physician [facility] Comment on above: Cervical radiculitis ; Anterolisthesis of cervical spine Start: 07-17-2024 End: 07-17-2024 ambulatory CELESTE MORAN [facility] Start: 07-16-2024 End: 07-16-2024 Office outpatient visit 25 minutes Celeste Moran 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 [employer]ACHINE Work Phone: [facility] Comment on above: Cervical radiculitis (Primary Dx); Neurogenic claudication due to lumbar spinal stenosis; Lumbosacral radiculopathy; Postlaminectomy syndrome of lumbar region; Right hip pain; Anterolisthesis of cervical spine Start: 07-16-2024 End: 07-16-2024 Transcribe Orders Celeste Moran [employer]INE Work Phone: [facility] Comment on above: Cervical radiculitis (Primary Dx); Anterolisthesis of cervical spine Start: 07-10-2024 End: 07-10-2024 Office outpatient visit 25 minutes Soraya Hernandez MD Work Phone: [facility] Comment on above: Right shoulder pain, unspecified chronicity; Acute pain of right shoulder; Cervical neuritis Start: 07-10-2024 End: 07-10-2024 ambulatory [facility] Start: 07-10-2024 End: 07-10-2024 Subsequent hospital visit by physician [facility] [employer] Comment on above: Arrived Start: 07-10-2024 End: 07-10-2024 ambulatory [facility] Start: 06-26-2024 End: 06-26-2024 Subsequent hospital visit by physician Suresh X-Ray Fluoro 1 [facility] Comment on above: Acute pain of right shoulder Start: 06-26-2024 End: 06-26-2024 ambulatory JASMINE Logan [facility] Start: 06-26-2024 End: 06-26-2024 Office outpatient visit 15 minutes Jasmine Mathias MD Work Phone: [facility] Comment on above: Acute pain of right shoulder (Primary Dx) Start: 06-26-2024 End: 06-26-2024 ambulatory JASMINE Logan 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 Work Phone: [facility] Comment on above: Neurogenic claudicat ion due to lumbar spinal stenosis (Primary Dx); Lumbosacral radiculopathy; Spondylosis of lumbosacral region, unspecified spinal osteoarthritis complication status; Postlaminectomy syndrome of lumbar region Start: 06-25-2024 End: 06-25-2024 ambulatory CELESTE Nina MORAN [facility] Start: 06-06-2024 End: 06-06-2024 Subsequent hospital visit by physician Smith Estrada DO Work Phone: [facility] [place] Comment on above: Lumbosacral radiculo taina Start: 06-06-2024 End: 06-06-2024 ambulatory SMITH ESTRADA [facility] Start: 06-05-2024 End: 06-05-2024 Subsequent hospital visit by physician Suresh Ortega [facility] Comment on above: Visit for screening mammogram Start: 06-05-2024 End: 06-05-2024 ambulatory JASMINE COUGHLINNDTHERESE [facility] Start: 05-21-2024 End: 05-21-2024 Office outpatient visit 15 minutes Jasmine Mathias MD Work Phone: [facility] Comment on above: Upper respiratory tr act infection, unspecified type (Primary Dx) Start: 05-21-2024 End: 05-21-2024 ambulatory [facility] Doreen [facility] Start: 05-14-2024 End: 05-14-2024 Assay of hemosiderin, quant Jasmine Mathias MD Work Phone: [facility] Work Phone: Start: 05-14-2024 End: 05-14-2024 Patient encounter procedure Jasmine Mathias MD Work Phone: [facility] Comment on above: Routine general medi toyin [...] screening mammogram Start: 05-14-2024 End: 05-14-2024 ambulatory [facility] Start: 05-14-2024 End: 05-14-2024 Encounter for general adult medical examination without abnormal findings [facility] Start: 05-07-2024 End: 05-07-2024 Patient encounter procedure Nena BOWDENGRANITE POLISHER MACHINE Work Phone: [facility] Comment on above: Acute upper respirat ory infection (Primary Dx); Acute bronchitis, unspecified organism Start: 05-07-2024 End: 05-07-2024 ambulatory [facility] Start: 04-11-2024 End: 04-11-2024 Office outpatient visit 25 minutes Mauricio Mancilla PA-C Work Phone: [facility] Comment on above: Lumbosacral radiculo taina (Primary Dx); H/O arthrodesis; Neurogenic claudication due to lumbar spinal stenosis Start: 04-11-2024 End: 04-11-2024 ambulatory MAURICIO MANCILLA [facility] Start: 04-04-2024 End: 04-04-2024 Office outpatient new 30 minutes Jordan Espinoza CNP Work Phone: [facility] Comment on above: Degeneration of inte rvertebral disc of lumbar region, unspecified whether pain present (Primary Dx); Degeneration of intervertebral disc of lumbar region with discogenic back pain and lower extremity pain Start: 04-04-2024 End: 04-08-2024 ambulatory JORDAN ESPINOZA [facility] Start: 03-12-2024 End: 03-12-2024 Transitional care manage srvc 7 day discharge Jasmine A Longsdorf MD Work Phone: [facility] Comment on above: Syncope, unspecified syncope type (Primary Dx) Start: 03-12-2024 End: 03-12-2024 ambulatory [facility] Doreen [facility] Start: 02-21-2024 End: 02-21-2024 ambulatory [facility] Doreen [facility] Start: 02-17-2024 End: 02-17-2024 Office outpatient visit 25 minutes Mary Carmen Tovar MD Work Phone: [facility] Comment on above: Age-related osteopor osis without current pathological fracture (Primary Dx); Vitamin D deficiency Start: 02-17-[address] [facility] Start: 02-13-2024 End: 02-13-2024 Subsequent hospital visit by physician Gayatri Dxa 1 [facility] Comment on above: Senile osteoporosis Start: 02-13-2024 End: 02-13-2024 ambulatory [facility] Start: 02-02-2024 End: 02-02-2024 Subsequent hospital visit by physician Suresh Ct 1 [facility] Comment on above: 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HHS-H CC); Pain of right hip Start: 02-02-2024 End: 02-02-2024 ambulatory JASMINE Doreen [facility] Start: 02-02-2024 End: 02-02-2024 ambulatory [facility] Start: 02-02-2024 End: 02-02-2024 Office outpatient visit 25 minutes Mauricio Mancilla PA-C Work Phone: [facility] Comment on above: Chronic pain syndrom e (Primary Dx); Degeneration of intervertebral disc of lumbar region, unspecified whether pain present; Lumbosacral radiculopathy; Spondylosis of lumbosacral region, unspecified spinal osteoarthritis complication status; H/O arthrodesis; Neurogenic claudication due to lumbar spinal stenosis Start: 02-02-2024 End: 02-02-2024 ambulatory MAURICIO MANCILLA [facility] Start: 02-01-2024 End: 02-01-2024 Subsequent hospital visit by physician Anjelica Orantes [facility] Comment on above: Neurogenic claudicat ion due to lumbar spinal stenosis; Lumbosacral radiculopathy Start: 02-01-2024 End: 02-01-2024 ambulatory [facility] Start: 01-31-2024 End: 01-31-2024 ambulatory [facility] Start: 01-30-2024 End: 01-30-2024 Office outpatient visit 25 minutes Jasmine Mathias MD Work Phone: [facility] Comment on above: 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HHS-H CC) (Primary Dx); Pain of right hip; Viral URI with cough Start: 01-30-2024 End: 01-30-2024 ambulatory JASMINE Doreen [facility] Start: 01-26-2024 End: 01-26-2024 ambulatory [facility] Start: 01-26-2024 End: 01-26-2024 ambulatory [facility] Start: 01-24-2024 End: 01-24-2024 ambulatory [facility] Start: 01-19-2024 End: 01-19-2024 ambulatory [facility] Start: 01-12-2024 End: 01-12-2024 ambulatory [facility] Start: 01-10-2024 End: 01-10-2024 ambulatory [facility] Start: 12-30-2023 End: 12-30-2023 Patient encounter procedure Shweta Brar EXCELLENCE 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 MACHINE Work Phone: [facility] Comment on above: Acute frontal sinusi tis, recurrence not specified (Primary Dx); Viral URI with cough Start: 12-30-2023 End: 12-30-2023 ambulatory JASMINE Logan [facility] Start: 12-28-2023 End: 12-28-2023 Subsequent hospital visit by physician Suresh X-Ray Fluoro 1 [facility] Comment on above: Right hip pain Neurogenic claudicat ion due to lumbar spinal stenosis; Lumbosacral radiculopathy Start: 12-28-2023 End: 12-28-2023 ambulatory JASMINE Logan [facility] Start: 12-27-2023 End: 12-27-2023 Office outpatient visit 15 minutes Jasmine Mathias MD Work Phone: [facility] Comment on above: Right hip pain (Prim candace Dx) Start: 12-27-2023 End: 12-28-2023 ambulatory [facility] Start: 12-27-2023 End: 12-27-2023 ambulatory EMEKA [facility] Start: 12-12-2023 End: 12-12-2023 Office outpatient new 60 minutes Bryan Luz MD Work Phone: [facility] Comment on above: Senile osteoporosis (Primary Dx); Neurogenic claudication due to lumbar spinal stenosis; Lumbosacral radiculopathy; Degenerative disc disease, lumbar; H/O arthrodesis Start: 12-12-2023 End: 12-12-2023 ambulatory [facility] Start: 12-06-2023 End: 12-06-2023 ambulatory JASMINE Doreen [facility] Start: 11-17-2023 End: 11-17-2023 Office outpatient visit 15 minutes Mauricio Mancilla PA-C Work Phone: [facility] Comment on above: Neurogenic claudicat ion due to lumbar spinal stenosis (Primary Dx); Lumbosacral radiculopathy; Degenerative disc disease, lumbar; Chronic pain syndrome; H/O arthrodesis; Rheumatoid arthritis involving multiple sites, unspecified whether rheumatoid factor present (Multi) Start: 11-17-2023 End: 11-17-2023 ambulatory MAURICIO MANCILLA [facility] Start: 11-10-2023 End: 11-10-2023 Office outpatient visit 25 minutes Jasmine Mathias MD Work Phone: [facility] Comment on above: Anxiety; Chronic pain syndrome; [...] Start: 11-10-2023 End: 11-10-2023 ambulatory JASMINE Doreen [facility] Start: 11-04-2023 End: 11-04-2023 ambulatory [facility] Doreen [facility] Start: 11-04-2023 End: 11-04-2023 Encounter for general adult medical examination without abnormal findings JASMINE Logan [facility] Start: 09-22-2023 End: 09-22-2023 Office outpatient visit 15 minutes Mauricio Mancilla PA-C Work Phone: [facility] Comment on above: Neurogenic claudicat ion due to lumbar spinal stenosis (Primary Dx); Lumbosacral radiculopathy; Spondylosis of lumbosacral region, unspecified spinal osteoarthritis complication status; S/P spinal fusion; Degenerative disc disease, lumbar; Other chronic pain Start: 09-22-2023 End: 09-22-2023 ambulatory MAURIICO MANCILLA [facility] Start: 09-05-2023 End: 09-05-2023 ambulatory JASMINE Logan [facility] Start: 08-26-2023 End: 08-26-2023 Subsequent hospital visit by physician Suresh Alvarado 2 [facility] Comment on above: Arrived Start: 08-26-2023 End: 08-26-2023 Subsequent hospital visit by physician Smith Estrada DO Work Phone: [facility] [place] Comment on above: Lumbosacral radiculo taina; Neurogenic claudication due to lumbar spinal stenosis; Degenerative disc disease, lumbar; Other chronic pain Start: 08-15-2023 End: 08-15-2023 Office outpatient visit 15 minutes Jasmine Mathias MD Work Phone: [facility] Comment on above: Acute sinusitis, rec urrence not specified, unspecified location (Primary Dx) Start: 08-09-2023 End: 08-09-2023 Office outpatient visit 25 minutes Mauricio Mancilla PA-C Work Phone: [facility] Comment on above: Lumbosacral radiculo taina (Primary Dx); Neurogenic claudication due to lumbar spinal stenosis; H/O arthrodesis; Rheumatoid arthritis involving multiple sites, unspecified whether rheumatoid factor present (Multi) Start: 07-27-2023 End: 07-27-2023 Subsequent hospital visit by physician Suresh X-Ray Fluoro 1 [facility] Comment on above: Neurogenic claudicat ion due to lumbar spinal stenosis; Lumbosacral radiculopathy Start: 07-26-2023 End: 07-26-2023 Office outpatient visit 25 minutes Mauricio Mancilla PA-C Work Phone: [facility] Comment on above: Lumbosacral radiculo taina (Primary Dx); Neurogenic claudication due to lumbar spinal stenosis; Spondylosis of lumbosacral region, unspecified spinal osteoarthritis complication status; Cervical neuritis; Rheumatoid arthritis involving multiple sites, unspecified whether rheumatoid factor present (Multi); S/P lumbar spinal fusion; Degenerative disc disease, lumbar; Other chronic pain Start: 05-19-2023 End: 05-19-2023 Subsequent hospital visit by physician Suresh Bermudez[address] [facility] [facility] Comment on above: Encounter for screen ing mammogram for breast cancer Start: 05-13-2023 End: 05-13-2023 Assay of hemosiderin, quant Jasmine Mathias MD Work Phone: [facility] Work Phone: Start: 05-13-2023 End: 05-13-2023 Patient encounter procedure Jasmine Mathias MD Work Phone: [facility] Comment on above: Routine general medi toyin examination at health care facility (Primary Dx); Anxiety; Chronic pain syndrome; Primary hypertension; Hypercholesteremia; Osteoporosis, unspecified osteoporosis type, unspecified pathological fracture presence; Primary generalized (osteo)arthritis; Rheumatoid arthritis involving multiple sites, unspecified whether rheumatoid factor present ([facility]); Gastroesophageal reflux disease without esophagitis; Vitamin D deficiency; Edema, unspecified type; Encounter for screening mammogram for breast cancer; Class 2 severe obesity with serious comorbidity and body mass index (BMI) of 35.0 to 35.9 in adult, unspecified obesity type ([facility]) Start: 05-05-2023 End: 05-05-2023 Office outpatient visit 10 minutes Roderick Jeter DPM Work Phone: [facility] Comment on above: History of bunionect harshad of left great toe (Primary Dx); Primary osteoarthritis of left foot; Arthritis of foot, right Start: 04-05-2023 End: 04-05-2023 Office outpatient visit 25 minutes Mauricio Mancilla PA-C Work Phone: [facility] Comment on above: Cervical neuritis (P rimary Dx); Chronic pain syndrome; Arthrodesis status; Cervical spondylosis; H/O arthrodesis; Degenerative disc disease, lumbar; Other chronic pain Start: 03-24-2023 End: 03-24-2023 Office outpatient visit 10 minutes Roderick Jeter DPM Work Phone: [facility] Comment on above: History of bunionect harshad of left great toe (Primary Dx); Hammer toe of second toe of left foot; Primary osteoarthritis of left foot; Arthritis of foot, right; Bunion of great toe of right foot Start: 03-04-2023 End: 03-04-2023 Subsequent hospital visit by physician Suresh Best C-Arm 1 [facility] Comment on above: Arrived Start: 03-04-2023 End: 03-04-2023 Subsequent hospital visit by physician Matt Lombardo MD Work Phone: [facility] [place] Comment on above: Cervical radiculitis Start: 02-24-2023 End: 02-24-2023 Postop follow up visit related to original px Roderick Jeter DPM Work Phone: [facility] Comment on above: History of bunionect harshad of left great toe (Primary Dx); Hammer toe of second toe of left foot Start: 02-03-2023 End: 02-03-2023 Postop follow up visit related to original px Roderick Jeter DPM Work Phone: [facility] Comment on above: History of bunionect harshad of left great toe (Primary Dx); Hammer toe of second toe of left foot Start: 02-02-2023 End: 02-02-2023 Office outpatient visit 25 minutes Mary Carmen Tovar MD Work Phone: [facility] Comment on above: Age-related osteopor osis without current pathological fracture (Primary Dx) Start: 01-25-2023 End: 01-25-2023 Office outpatient visit 25 minutes Mauricio Mancilla PA-C Work Phone: [facility] Comment on above: Neurogenic claudicat ion due to lumbar spinal stenosis (Primary Dx); Cervical neuritis; Chronic pain syndrome; Cervical stenosis of spinal canal; Cervical radiculitis Start: 01-20-2023 End: 01-20-2023 Postop follow up visit related to original px Roderick Jeter DPM Work Phone: [facility] Comment on above: Hammer toe of second toe of left foot (Primary Dx); Hallux abductovalgus with bunions, left; History of bunionectomy of left great toe Start: 01-19-2023 Orders Only Roderick Jeter DPM Work Phone: [facility] Start: 01-13-2023 Orders Only Roderick Jeter DPM Work Phone: [facility] Comment on above: Post-op pain (Primar y Dx) Start: 01-11-2023 Orders Only Roderick Jeter DPM Work Phone: [facility] Comment on above: Post-op pain (Primar y Dx) Start: 01-07-2023 End: 01-07-2023 Postop follow up visit related to original px Roderick OCASIOM Work Phone: [facility] Comment on above: Postop check (Primar y Dx); History of bunionectomy of left great toe Start: 01-03-2023 End: 01-03-2023 Office outpatient visit 15 minutes Roderick Jeter DPM Work Phone: [facility] Comment on above: Dislocated toe, left , initial encounter (Primary Dx); Acquired hammer toe deformity of lesser toe of left foot; Hallux abductovalgus with bunions, left Start: 12-31-2022 End: 01-01-2023 ambulatory [facility] Start: 12-31-2022 ambulatory [facility] Start: 12-31-2022 Encounter for other preprocedural examination [facility] Start: 12-27-2022 Admission to [facility] Roderick Jeter DPM Work Phone: [facility] Comment on above: Hallux abductovalgus with bunions, left (Primary Dx); Dislocated toe, left, sequela Start: 12-27-2022 ambulatory [facility] Start: 12-27-2022 End: 12-27-2022 Office outpatient visit 15 minutes Roderick Jeter DPM Work Phone: [facility] Comment on above: Dislocated toe, left , initial encounter (Primary Dx); Hammer toe of second toe of left foot; Bunion of great toe of left foot; Acquired hammer toe deformity of lesser toe of left foot Start: 12-26-2022 End: 12-26-2022 Emergency department patient visit Zachery Perez MD Work Phone: [facility] Comment on above: Fall, initial encoun ter (Primary Dx); Contusion of left foot, initial encounter Start: 12-21-[address] Jasmine Mathias Facility:[id number] Start: 12-20-[address] Jasmine Mathias Facility:[id number] Start: 12-16-2022 Patient encounter procedure Jasmine Mathias Work Phone: [facility] Work Phone: Start: 12-16-[address] Jasmine Mathias Facility:[id number] Start: 12-08-2022 End: 12-08-2022 Office outpatient visit 15 minutes Ana Estrada MD Work Phone: [facility] Comment on above: Seasonal allergies ( Primary Dx) Start: 11-11-[address] Jasmine Mathias Facility:[id number] Start: 11-10-2022 End: 11-10-2022 Office outpatient visit 25 minutes Jasmine Mathias MD Work Phone: [facility] Comment on above: Primary hypertension (Primary Dx); Neck pain; Anxiety; Chronic pain syndrome; Hypercholesteremia; Osteoporosis, unspecified osteoporosis type, unspecified pathological fracture presence; Primary generalized (osteo)arthritis; Rheumatoid arthritis involving multiple sites, unspecified whether rheumatoid factor present ([facility]); Class 1 obesity with serious comorbidity and body mass index (BMI) of 34.0 to 34.9 in adult, unspecified obesity type; Gastroesophageal reflux disease without esophagitis; Vitamin D deficiency Start: 09-30-2022 End: 09-30-2022 Office outpatient visit 15 minutes Jasmine Mathias MD Work Phone: [facility] Comment on above: Closed fracture of o ne rib of right side, initial encounter (Primary Dx) Start: 09-27-2022 [id number] Start: 09-27-2022 ambulatory [id number] Start: 09-27-2022 End: 09-27-2022 Emergency department patient visit Nena Aguilar [facility] Start: 05-12-2022 Adv care pln tlkd & alt dcsn maker docd Jasmine Humphriesorf Work Phone: [employer] [facility] Work Phone: Start: 05-12-2022 Patient encounter procedure Jasmine Mathias [facility] [place] Start: 05-12-[address] Jasmine Mathias Facility:[id number] Start: 05-10-2022 End: 05-10-2022 Emergency department patient visit Nena Aguilar [facility] Start: 05-05-2022 Chart Update Jasmine Mathias Work Phone: [employer] [facility] Work Phone: Start: 05-03-2022 Rx Renewal Jasmine Mathias Work Phone: [employer] [facility] Work Phone: Start: 04-07-2022 End: 04-07-2022 Postop follow up visit related to original px Delvis Moncada MD Work Phone: [facility] Comment on above: Postoperative follow -up (Primary Dx) Start: 03-09-2022 Chart Update Jasmine Mathias Work Phone: [employer] [facility] Work Phone: Start: 03-08-[address] Jasmine Mathias Facility:[id number] Start: 03-02-2022 End: 03-02-2022 Postop follow up visit related to original px Maira Hamilton CNP Work Phone: [facility] Comment on above: Encounter for surgic al aftercare following surgery of digestive system (Primary Dx) Start: 02-24-[address] Mary Carmen Tovar Facility:[id number] Start: 02-22-[address] Jasmine Mathias Facility:[facility] Start: 02-22-2022 Rx Renewal Jasmine Mathias Work Phone: [employer] [facility] Work Phone: Start: 02-17-2022 AUDIT Jasmine Doreen Humphriestherese Work Phone: [facility] Work Phone: Start: 02-15-2022 End: 02-15-2022 ambulatory JASMINE RAY [facility] Start: 02-11-2022 AUDIT Jasminemarilee Mathias Work Phone: [facility] Work Phone: Start: 02-02-2022 Encounter for other preprocedural examination SKYE OSPINA [facility] Start: 02-02-2022 End: 02-06-2022 ambulatory BECKIE REYES [facility] Start: 02-02-2022 Preprocedural examin ation done Maira Yuniorzia [facility] Work Phone: [facility] Start: 02-01-2022 Office outpatient vi sit 25 minutes Jasmine Mathias Work Phone: [facility] Work Phone: Start: 02-01-[address] Jasmine Mathias Facility:[id number] Start: 01-26-[address] Jasmine Mathias Facility:[id number] Start: 01-21-2022 End: 01-21-2022 Office outpatient visit 25 minutes Delvis Moncada MD Work Phone: [facility] Comment on above: Hiatal hernia with G ERD without esophagitis (Primary Dx) Start: 01-19-2022 Patient encounter procedure Jasmine Mathias Work Phone: [facility] 300 Work Phone: Start: 01-19-[address] Corby Jacobs Facility:[id number] Start: 01-14-2022 End: 01-15-2022 ambulatory JASMINEMARILEE RAY [facility] Start: 01-12-[address] Corby Jacobs Facility:[id number] Start: 01-05-2022 Patient encounter procedure Jasmine Mathias Work Phone: [facility] 300 Work Phone: Start: 01-05-[address] Jasmine Mathias Facility:[id number] Start: 01-04-2022 End: 01-04-2022 Office outpatient visit 25 minutes Mary Carmen Tovar MD Work Phone: [facility] Comment on above: Age-related osteopor osis without current pathological fracture (Primary Dx) Start: 12-10-2021 Office outpatient vi sit 15 minutes Jasmine Mathias Work Phone: [facility] 300 Work Phone: Start: 12-10-2021 Patient encounter procedure Jasmine Mathias Work Phone: [facility] 300 Work Phone: Start: 12-10-[address] Corby Jacobs Facility:[id number] Start: 11-26-2021 End: 11-26-2021 Office outpatient new 45 minutes Delvis Moncada MD Work Phone: [facility] Comment on above: Esophageal dysphagia (Primary Dx); Heartburn; Status post laparoscopic Rosalva fundoplication Start: 11-11-2021 Office outpatient vi sit 25 minutes Jasmine Mathias Work Phone: [facility] 205 DO Work Phone: Start: 10-02-2021 AUDIT Jasmine Mathias Work Phone: [facility] 205 DO Work Phone: Start: 07-20-2021 Rx Renewal Jasmine Mathias Work Phone: [facility] 205 DO Work Phone: Start: 07-16-2021 Rx Renewal Jasmine Mathias Work Phone: [facility] Work Phone: Start: 06-26-2021 AUDIT Jasmine Mathias Work Phone: [facility] 205 DO Work Phone: Start: 06-11-2021 Rx Renewal Jasmine Mathias Work Phone: [facility] Work Phone: Start: 05-25-2021 [facility] Work Phone: [facility] Work Phone: Start: 05-13-2021 Adv care pln tlkd & alt dcsn maker docd Jasmine Mathias Work Phone: [facility] Work Phone: Start: 03-26-2021 End: 03-26-2021 Emergency department patient visit [facility] Start: 02-16-2021 AUDIT Jasmine Mathias Work Phone: [facility] Work Phone: Start: 01-27-2021 AUDIT Jasmine Mathias Work Phone: [facility] Work Phone: Start: 11-25-2020 End: 11-25-2020 Office outpatient visit 15 minutes Nevaeh Hartman [facility] Work Phone: [facility] Comment on above: Primary osteoarthrit is of left foot (Primary Dx); Contusion of left foot, initial encounter; Recurrent tinea pedis Start: 11-06-2020 AUDIT Jasmine Mathias Work Phone: [facility] 205 DO Work Phone: Start: 11-05-2020 EPV, Provider: Jasmine Mathias, Status: Pen, Time: 9:40 AM Jasmine Mathias Work Phone: [facility] Work Phone: Start: 11-05-2020 Office outpatient vi sit 25 minutes Jasmine Mathias Work Phone: [facility] Work Phone: Start: 11-03-2020 Chart Update Jasmine Mathias Work Phone: [facility] Work Phone: Start: 10-28-2020 End: 10-28-2020 Office outpatient visit 15 minutes Nevaeh Hartman [facility] Work Phone: [facility] Comment on above: Contusion of left fo ot, initial encounter (Primary Dx); Primary osteoarthritis of left foot; Left foot pain Start: 10-27-2020 Chart Update Jasmine Mathias Work Phone: [facility] Work Phone: Start: 10-26-2020 End: 10-26-2020 Emergency department patient visit Anders Pierce [facility] Emergency 11 Start: 10-01-2020 Rx Renewal Jasmine Mathias Work Phone: [facility] Work Phone: Start: 09-15-2020 Patient encounter procedure Jasmine Mathias Work Phone: [facility] Work Phone: Start: 08-21-2020 AUDIT Jasmine Mathias Work Phone: [facility] Work Phone: Start: 05-07-2020 Patient encounter procedure Jasmine Mathias [facility] Work Phone: Start: 05-05-2020 End: 05-05-2020 Orders Only Susan Levy Work Phone: [facility] Start: 04-29-2020 Patient encounter procedure [facility] Work Phone: Start: 04-18-2020 Patient encounter procedure [facility] Work Phone: Start: 03-05-2020 Patient encounter procedure [facility] [employer] Work Phone: Start: 01-16-2020 Patient encounter procedure [facility] [employer] Work Phone: Start: 01-03-2020 End: 01-03-2020 Office outpatient visit 15 minutes Mary Carmen Tovar Work Phone: [facility] Comment on above: Age-related osteopor osis without current pathological fracture (Primary Dx) Start: 11-21-2019 Patient encounter procedure [email or web address] Work Phone: Start: 06-11-2019 End: 06-11-2019 Subsequent hospital visit by physician Diego José Work Phone: [facility] Comment on above: Bilateral pubic rami fractures (HCC) Start: 06-11-2019 End: 06-11-2019 Office outpatient new 30 minutes Diego José Work Phone: [facility] Comment on above: Left hip pain (Prima ry Dx) Start: 05-23-2019 Patient encounter procedure [facility] Work Phone: Start: 02-20-2019 End: 02-20-2019 Patient encounter procedure Mary Carmen Tovar Work Phone: [facility] Comment on above: Age-related osteopor osis without current pathological fracture (Primary Dx) Start: 02-01-2019 End: 02-01-2019 Orders Only Mary Carmen Tovar Work Phone: [facility] Comment on above: Age-related osteopor osis without current pathological fracture (Primary Dx) Start: 01-24-2019 Patient encounter procedure Jasmine Mathias [facility] Work Phone: Start: 12-29-2018 End: 12-29-2018 Outside Orders Historical Provider [facility] Start: 12-27-2018 End: 12-27-2018 Telephone encounter Simin Guardadosailaja [facility] Comment on above: Other (Infusion) Start: 03-13-2018 End: 03-14-2018 Patient encounter procedure Delvis Moncada Facility:[place] Start: 03-09-2018 End: 03-09-2018 Office outpatient visit 25 minutes Delvis Kelly Anwtan Work Phone: [facility] Comment on above: Hiatal hernia with G ERD without esophagitis (Primary Dx) Start: 02-03-2018 End: 02-03-2018 Office outpatient visit 25 minutes Delvis Moncada Work Phone: [facility] Comment on above: Hiatal hernia with G ERD without esophagitis (Primary Dx) Start: 12-15-2017 End: 12-15-2017 Office outpatient visit 15 minutes Phoenixayad Moncada Work Phone: [facility] Comment on above: Hiatal hernia with G ERD without esophagitis (Primary Dx) Start: 11-15-2017 End: 11-15-2017 Patient encounter procedure Delvis Moncada Facility:[place] Start: 10-20-2017 End: 10-20-2017 Office outpatient visit 25 minutes Delvis [facility]cada Work Phone: [facility] Start: 08-24-2017 End: 08-24-2017 Office/outpatient visit, est, level 3 Delvisayad Kelly Antwan Work Phone: [facility] Start: 08-16-2017 End: 08-16-2017 Patient encounter procedure Delvis Moncada Facility:[place] Start: 07-27-2017 End: 07-27-2017 Office/outpatient visit, new, level 4 Jasmine Mathias Work Phone: [facility] Start: 07-25-2017 End: 07-25-2017 Office/outpatient visit, est, level 3 Yung Henrández Work Phone: [facility] Start: 06-27-2015 Patient encounter status Nevaeh Hartman DPM Work Phone: [facility] Work Phone: Patient encounter procedure Jasmine Mathias Work Phone: [facility] Work Phone: Procedures Date Procedure Procedure Detail Performing Clinician Start: 09-14-2024 Follow-up visit Follow-up BAR TRIANA JR. Start: 09-10-2024 Comprehensive metabolic panel Sanjuana Stroud DO Work Phone: Start: 08-10-2024 X-ray of cervical spine Dr. Jasmine Mathias MD Work Phone: Start: 07-17-2024 Mri spinal canal cervical w/o & w/contr matrl Celeste Moran [employer]CE[employer]ENCE 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 Work Phone: Start: 07-10-2024 US Abdomen Soraya [...] 05-07-2024 POCT SARS-COV-2/FLU/RSV PCR SYMPTOMATIC Nena Aguilar [employer]CE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 Work Phone: Start: 02-13-2024 Dxa bone density study 1/> sites axial skel Bryan Luz MD Work Phone: Start: 02-01-2024 Bone length studies Bryan Luz MD Work Phone: Start: 12-30-2023 Sars-cov-2 detection by dna/rna Shweta Brar [employer]CELLENCE 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INE Work Phone: Start: 11-04-2023 Lipid 1995 panel - Serum or Plasma Johanny Mathias MD Work Phone: Start: 08-26-2023 XR tomography Unspecified body region Mauricio Talavera [employer] PA-C Work Phone: Start: 07-27-2023 Mri spinal canal lumbar w/o contrast material Mauricio C [employer] PA-C Work Phone: Start: 05-19-2023 End: 05-19-2023 [...] 05-07-2020 Blood count complete auto&auto difrntl wbc Jasmine Mathias Start: 05-07-2020 Comprehensive metabolic 2000 panel [...] Author Start: 05-09-2029 [address] [facility] Start: 04-27-2029 DTaP/Tdap/Td Vaccines (2 - Td or Tdap) DTaP/Tdap/Td Vaccines (2 - Td or Tdap) [facility] Start: 04-27-2029 Tetanus vaccination [facility] Start: 11-03-[address]28 [address]id Panel [facility] Start: 05-06-2028 [address] Lipid Panel [facility] Start: 11-03-[address]27 [address] Lipid [address] [facility] Start: 05-05-2027 [address] Lipid Panel [facility] Start: 02-12-2026 Screening for osteoporosis Bone Density Scan [facility] Start: 06-05-2025 Screening for malignant neoplasm of breast Mammogram [facility] Start: 05-15-2025 Medicare Annual Wellness Visit Medicare Annual Wellness Visit (AWV) [facility] Start: 05-14-2025 Medicare Wellness Visit Medicare Wellness Visit [facility] Start: 04-19-2025 End: 04-19-2025 Patient encounter procedure 04/19/2025 8:30 AM EST Office Visit [address] [phone] Mary Carmen Tovar MD [address] [place] [id number] [facility] Start: 03-06-2025 Diabetes mellitus screening Diabetes Screening [facility] Start: 01-28-2025 Screening for malignant neoplasm of colon [facility] Start: 11-12-2024 End: 11-12-2024 Patient encounter procedure 11/12/2024 9:20 AM EDT Office Visit [address] [phone] Jasmine Mathias MD [address] [place] [id number] [facility] Start: 11-11-2024 End: 05-14-2025 CBC W Auto Differential panel - Blood CBC and Auto Differential Lab Routine Primary hypertension Hypercholesteremia Primary generalized (osteo)arthritis Rheumatoid arthritis involving multiple sites, unspecified whether rheumatoid factor present (Multi) Expected: 11/11/2024 (Approximate), Expires: 05/14/2025 [facility] Work Phone: Comment on above: Expected: 11/11/2024 (Approximate), Expi res: 05/14/2025 Start: 11-11-2024 End: 05-14-2025 Cobalamin (Vitamin B12) [Mass/volume] in Serum or Plasma Vitamin B12 Lab Routine Primary hypertension Hypercholesteremia Primary generalized (osteo)arthritis Rheumatoid arthritis involving multiple sites, unspecified whether rheumatoid factor present (Multi) Expected: 11/11/2024 (Approximate), Expires: 05/14/2025 [facility] Work Phone: Comment on above: Expected: 11/11/2024 (Approximate), Expi res: 05/14/2025 Start: 11-11-2024 End: 05-14-2025 Comprehensive metabolic 2000 panel - Serum or Plasma Comprehensive Metabolic Panel Lab Routine Primary hypertension Hypercholesteremia Primary generalized (osteo)arthritis Rheumatoid arthritis involving multiple sites, unspecified whether rheumatoid factor present (Multi) Expected: 11/11/2024 (Approximate), Expires: 05/14/2025 [facility] Work Phone: Comment on above: Expected: 11/11/2024 (Approximate), Expi res: 05/14/2025 Start: 11-11-2024 End: 05-14-2025 Lipid 1996 panel - Serum or Plasma Lipid Panel Lab Routine Primary hypertension Hypercholesteremia Primary generalized (osteo)arthritis Rheumatoid arthritis involving multiple sites, unspecified whether rheumatoid factor present (Multi) Expected: 11/11/2024 (Approximate), Expires: 05/14/2025 [facility] Work Phone: Comment on above: Expected: 11/11/2024 (Approximate), Expi res: 05/14/2025 Start: 11-11-2024 End: 05-14-2025 TSH with reflex to Free T4 if abnormal TSH with reflex to Free T4 if abnormal Lab Routine Primary hypertension Hypercholesteremia Primary generalized (osteo)arthritis Rheumatoid arthritis involving multiple sites, unspecified whether rheumatoid factor present (Multi) Expected: 11/11/2024 (Approximate), Expires: 05/14/2025 [facility] Work Phone: Comment on above: Expected: 11/11/2024 (Approximate), Expi res: 05/14/2025 Start: 09-14-2024 End: 09-14-2024 Patient encounter procedure 09/14/2024 8:15 AM EDT Office Visit [facility] [address] [place] [phone] Bar Triana Jr., DPM [address] [place] [address] [facility] Start: 08-10-2024 X-ray of cervical spine Cerv Spine 4 or 5 Views [facility] Start: 08-10-2024 XR Cervical spine 4 or 5 Views [facility] Start: 07-18-2024 End: 07-18-2024 Patient encounter procedure 07/18/2024 1:00 PM EDT Office Visit [facility] [address] [place] [phone] Smith Estrada, [address] [place] [id number] [facility] Start: 07-17-2024 End: 07-17-2024 Patient encounter procedure 07/17/2024 9:30 AM EDT Appointment [address] [phone] [facility] Start: 07-16-2024 End: 07-16-2025 MR Cervical spine WO and W contrast IV MR cervical spine w and wo IV contrast Imaging Routine Cervical radiculitis Anterolisthesis of cervical spine Expected: 07/16/2024, Expires: 07/16/2025 [facility] Service Area Work Phone: Comment on above: Expected: 07/16/2024, Expires: Start: 06-26-2024 End: 06-26-2025 XR Cervical spine 4 or 5 Views [facility] Service Area Work Phone: Comment on above: Expected: 06/26/2024, Expires: Start: 06-25-2024 End: 06-25-2024 Patient encounter procedure 06/25/2024 10:15 AM EDT Office Visit [facility] [address] [place] [phone] Celeste Moran, EXCELLENCE 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ACHINE [address] [place] [address] [facility] Start: 06-06-2024 End: 06-06-2024 Patient encounter procedure 06/06/2024 10:30 AM EDT Appointment [facility] [place] [address] [place] [phone] Smith Estrada DO [address] [place] [phone] [facility] [place] Start: 06-05-2024 End: 06-05-2024 Patient encounter procedure 06/05/2024 8:30 AM EDT Appointment [facility] [address] [place] [phone] [facility] Start: 05-23-2024 End: 05-23-2024 Patient encounter procedure 05/23/2024 9:15 AM EST Appointment [facility] [place] [address] [place] [phone] Smith Estrada DO [address] [place] [place] [address] [facility] [place] Start: 05-19-2024 Screening for malignant neoplasm of breast Mammogram [facility] Start: 05-14-2024 End: 07-12-2025 DBT Breast - bilateral BI mammo bilateral screening tomosynthesis Imaging Routine Visit for screening mammogram Expected: 05/14/2024, Expires: 07/12/2025 [facility] Area Work Phone: Comment on above: Expected: 05/14/2024, Expires: Start: 05-14-2024 Medicare Annual Wellness Visit Medicare Annual Wellness Visit (AWV) [facility] Start: 05-14-2024 End: 05-14-2024 Patient encounter procedure [facility] Start: 05-13-2024 Medicare Wellness Visit Medicare Wellness Visit [facility] Start: 05-12-2024 End: 11-09-2024 25-hydroxyvitamin D3 [Mass/volume] in Serum or Plasma Vitamin D 25-Hydroxy,Total (for eval of Vitamin D levels) Lab Routine Primary hypertension Hypercholesteremia Osteoporosis, unspecified osteoporosis type, unspecified pathological fracture presence Rheumatoid arthritis involving multiple sites, unspecified whether rheumatoid factor present (Multi) Vitamin D deficiency Expected: 05/12/2024 (Approximate), Expires: 11/09/2024 [facility] Work Phone: Comment on above: Expected: 05/12/2024 (Approximate), Expi res: 11/09/2024 Start: 05-12-2024 End: 11-09-2024 CBC W Auto Differential panel - Blood CBC and Auto Differential Lab Routine Primary hypertension Hypercholesteremia Osteoporosis, unspecified osteoporosis type, unspecified pathological fracture presence Rheumatoid arthritis involving multiple sites, unspecified whether rheumatoid factor present (Multi) Expected: 05/12/2024 (Approximate), Expires: 11/09/2024 [facility] Work Phone: Comment on above: Expected: 05/12/2024 (Approximate), Expi res: 11/09/2024 Start: 05-12-2024 End: 11-09-2024 Cobalamin (Vitamin B12) [Mass/volume] in Serum or Plasma Vitamin B12 Lab Routine Primary hypertension Hypercholesteremia Osteoporosis, unspecified osteoporosis type, unspecified pathological fracture presence Rheumatoid arthritis involving multiple sites, unspecified whether rheumatoid factor present (Multi) Expected: 05/12/2024 (Approximate), Expires: 11/09/2024 [facility] Work Phone: Comment on above: Expected: 05/12/2024 (Approximate), Expi res: 11/09/2024 Start: 05-12-2024 End: 11-09-2024 Comprehensive metabolic 2000 panel - Serum or Plasma Comprehensive Metabolic Panel Lab Routine Primary hypertension Hypercholesteremia Osteoporosis, unspecified osteoporosis type, unspecified pathological fracture presence Rheumatoid arthritis involving multiple sites, unspecified whether rheumatoid factor present (Multi) Expected: 05/12/2024 (Approximate), Expires: 11/09/2024 [facility] Work Phone: Comment on above: Expected: 05/12/2024 (Approximate), Expi res: 11/09/2024 Start: 05-12-2024 End: 11-09-2024 Lipid 1996 panel - Serum or Plasma Lipid Panel Lab Routine Primary hypertension Hypercholesteremia Osteoporosis, unspecified osteoporosis type, unspecified pathological fracture presence Rheumatoid arthritis involving multiple sites, unspecified whether rheumatoid factor present (Multi) Expected: 05/12/2024 (Approximate), Expires: 11/09/2024 [facility] Work Phone: Comment on above: Expected: 05/12/2024 (Approximate), Expi res: 11/09/2024 Start: 05-12-2024 End: 11-09-2024 TSH with reflex to Free T4 if abnormal TSH with reflex to Free T4 if abnormal Lab Routine Primary hypertension Hypercholesteremia Osteoporosis, unspecified osteoporosis type, unspecified pathological fracture presence Rheumatoid arthritis involving multiple sites, unspecified whether rheumatoid factor present (Multi) Expected: 05/12/2024 (Approximate), Expires: 11/09/2024 [facility] Work Phone: Comment on above: Expected: 05/12/2024 (Approximate), Expi res: 11/09/2024 Start: 04-11-2024 End: 04-11-2025 FL pain management [place] pain management Imaging Routine Lumbosacral radiculopathy Expected: 04/11/2024, Expires: 04/11/2025 [facility] Work Phone: Comment on above: Expected: 04/11/2024, Expires: Start: 04-11-2024 End: 04-11-2025 Transforaminal Transforaminal Pain Management Routine Lumbosacral radiculopathy Expected: 04/11/2024, Expires: 04/11/2025 [facility] Service Area Work Phone: Comment on above: Expected: 04/11/2024, Expires: Start: 04-11-2024 End: 04-11-2024 Patient encounter procedure 04/11/2024 8:30 AM EST Office Visit [facility] Building [address]nd [place] [address] Mauricio Mancilla PA-C [address] [place] [address] [facility] Start: 04-09-2024 End: 04-09-2024 Patient encounter procedure 04/09/2024 1:30 PM EST Office Visit [address] [phone] Bryan Luz MD [address] [facility], [address] [address] [facility] Start: 03-19-2024 End: 03-19-2024 Patient encounter procedure 03/19/2024 10:00 AM EST Office Visit [address] [phone] Bryan Luz MD [address] [facility], [address] [address] [facility] Start: 02-17-2024 End: 02-16-2025 C-TELOPEPTIDE C-TELOPEPTIDE Lab Routine Age-related osteoporosis without current pathological fracture Expected: 02/17/2024, Expires: 02/16/2025 [facility] Comment on above: Expected: 02/17/2024, Expires: Start: 02-17-2024 End: 02-16-2025 Comprehensive metabolic 2000 panel - Serum or Plasma COMPREHENSIVE METABOLIC PANEL Lab Routine Age-related osteoporosis without current pathological fracture Expected: 02/17/2024, Expires: 02/16/2025 [facility] Comment on above: Expected: 02/17/2024, Expires: Start: 02-17-2024 End: 02-16-2025 CROSS-LINKED N-TELOPEP,UR CROSS-LINKED N-TELOPEP,UR Fluids Routine Age-related osteoporosis without current pathological fracture Expected: 02/17/2024, Expires: 02/16/2025 [facility] Comment on above: Expected: 02/17/2024, Expires: Start: 02-13-2024 Subsequent hospital visit by physician 02/13/2024 8:30 AM EST Hospital Encounter [place] [id number] [phone] [facility] Start: 02-02-2024 End: 02-02-2024 Patient encounter procedure 02/02/2024 2:15 PM EST Appointment [address] [address] [facility] Start: 02-02-2024 End: 02-02-2024 ambulatory 02/02/2024 10:45 AM EST Treatment [address] [place] [address] Sherly Sweet DISTRICT ENGINEER [address] [facility] [place] [address] [facility] Start: 02-02-2024 End: 02-02-2024 Patient encounter procedure [facility] Start: 01-31-2024 End: 01-31-2024 ambulatory 01/31/2024 10:45 AM EST Treatment [address] [place] [address] Sherly Sweet DISTRICT ENGINEER [address] [place] [address] [facility] Start: 01-30-2024 End: 01-29-2025 CT Hip - right WO contrast CT hip right wo IV contrast Imaging Routine 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HHS-HCC) Pain of right hip Expected: 01/30/2024, Expires: 01/29/2025 [facility] Work Phone: Comment on above: Expected: 01/30/2024, Expires: Start: 01-30-2024 End: 01-29-2025 CT Pelvis WO contrast CT pelvis wo IV contrast Imaging Routine 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HHS-HCC) Pain of right hip Expected: 01/30/2024, Expires: 01/29/2025 [facility] Service Area Work Phone: Comment on above: Expected: 01/30/2024, Expires: Start: 01-27-2024 Screening for osteoporosis Bone Density Scan [facility] Start: 01-13-2024 End: 01-13-2024 ambulatory 01/13/2024 10:00 AM EDT Treatment [address] [address] Flor Marc, DISTRICT ENGINEER [address] [place] [address] [place] [address] [facility] Start: 01-12-2024 End: 01-12-2024 ambulatory 01/12/2024 10:00 AM EDT Treatment [address] [address] Sherly Sweet, DISTRICT ENGINEER [address] [facility] [place] [address] [facility] Start: 01-10-2024 End: 01-10-2024 ambulatory 01/10/2024 10:00 AM EDT Treatment [place] [address] [place] [address] Sherly Sweet, DISTRICT ENGINEER [address] [facility] [place] [address] [facility] Start: 01-06-2024 End: 01-06-2024 ambulatory 01/06/2024 10:00 AM EDT Treatment [address] [place] [address] Flor Marc, DISTRICT ENGINEER [address] [facility] Services [place] [phone] [facility] Start: 01-04-2024 End: 01-04-2024 Patient encounter procedure 01/04/2024 10:00 AM EDT Appointment [facility] [address] [facility] [address] [place] [address] [facility] Start: 01-03-2024 End: 01-03-2024 ambulatory 01/03/2024 10:00 AM EDT Treatment [address] [place] [address] Sherly Sweet, DISTRICT ENGINEER [address] [facility] Rehab [place] [phone] [facility] Start: 12-28-2023 End: 12-28-2023 Patient encounter procedure 12/28/2023 8:00 AM EDT Appointment [place] [address] [place] [address] [facility] Start: 12-27-2023 End: 12-26-2024 XR Hip Views XR hip right with pelvis when performed 2 or 3 views Imaging Routine Right hip pain Expected: 12/27/2023, Expires: 12/26/2024 [facility] Service Area Work Phone: Comment on above: Expected: 12/27/2023, Expires: 5 Start: 12-27-2023 End: 12-26-2024 XR Pelvis 3 Views XR pelvis 3+ views Imaging Routine Right hip pain Expected: 12/27/2023, Expires: 12/26/2024 [facility] Work Phone: Comment on above: Expected: 12/27/2023, Expires: 5 Start: 12-12-2023 End: 12-11-2024 CT Lumbar spine WO contrast CT lumbar spine wo IV contrast Imaging Routine Neurogenic claudication due to lumbar spinal stenosis Lumbosacral radiculopathy Expected: 12/12/2023, Expires: 12/11/2024 [facility] Work Phone: Comment on above: Expected: 12/12/2023, Expires: Start: 12-12-2023 End: 12-11-2024 DXA Skeletal system.axial Views for bone density XR DEXA bone density axial skeleton w VFA Imaging Routine Senile osteoporosis Expected: 12/12/2023, Expires: 12/11/2024 [facility] Service Area Work Phone: Comment on above: Expected: 12/12/2023, Expires: 5 Start: 11-27-2023 COVID-19 Vaccine ( season) COVID-19 Vaccine ( season) [facility] Start: 11-27-2023 COVID-19 Vaccine ( season) COVID-19 Vaccine ( season) [facility] Start: 11-27-2023 Influenza vaccination Influenza Vaccine (#1) [facility] Start: 11-17-2023 End: 11-17-2023 Patient encounter procedure 11/17/2023 2:30 PM EDT Office Visit [facility] Building [address] [place] [address] Mauricio Mancilla PA-C [address] [place] [address] [facility] Start: 11-11-2023 End: 05-13-2024 [...] care facility Expected: 11/11/2023 (Approximate), Expires: 05/13/2024 [facility] Work Phone: Comment on above: Expected: [...] care facility Expected: 11/11/2023 (Approximate), Expires: 05/13/2024 [facility] Work Phone: Comment on above: Expected: [...] care facility Expected: 11/11/2023 (Approximate), Expires: 05/13/2024 [facility] Work Phone: Comment on above: Expected: [...] care facility Expected: 11/11/2023 (Approximate), Expires: 05/13/2024 [facility] Work Phone: Comment on above: Expected: [...] breast cancer Routine general medical examination at [facility] care facility Expected: 11/11/2023 (Approximate), Expires: 05/13/2024 [facility] Work Phone: Comment on above: Expected: [...] care facility Expected: 11/11/2023 (Approximate), Expires: 05/13/2024 [facility] Work Phone: Comment on above: Expected: 11/11/2023 (Approximate), Expi res: 05/13/2024 Start: 11-10-2023 End: 11-10-2023 Patient encounter procedure 11/10/2023 9:00 AM EDT Office Visit [facility] [address] [place] [phone] Jasmine Mathias MD [address] [facility] [place] [address] [facility] Start: 08-09-2023 End: 08-08-2024 Transforaminal Transforaminal Procedures Routine Lumbosacral radiculopathy Neurogenic claudication due to lumbar spinal stenosis Expected: 08/09/2023 (Approximate), Expires: 08/08/2024 [facility] Service Area Work Phone: Comment on above: Expected: 08/09/2023 (Approximate), Expi res: 08/08/2024 Start: 08-09-2023 End: 08-09-2023 Patient encounter procedure 08/09/2023 8:00 AM EDT Office Visit [facility] Office [facility] [address] [place] [phone] Mauricio Mancilla PA-C [address] [place] [phone] [facility] Office [facility] Start: 08-04-2023 End: 08-04-2023 Patient encounter procedure 08/04/2023 9:00 AM EDT Office Visit [facility] [address] [place] [phone] Roderick Jeter, RYAN [address] [place] [address] [facility] Start: 07-27-2023 End: 07-27-2023 Patient encounter procedure 07/27/2023 7:30 AM EDT Appointment [facility] [address] [place] [address] [facility] Start: 07-26-2023 End: 07-25-2024 MR Lumbar spine WO contrast MR lumbar spine wo IV contrast Imaging Routine Neurogenic claudication due to lumbar spinal stenosis Lumbosacral radiculopathy Expected: 07/26/2023, Expires: 07/25/2024 [facility] Work Phone: Comment on above: Expected: 07/26/2023, Expires: Start: 07-26-2023 End: 07-25-2024 XR Lumbar spine 2 or 3 Views XR lumbar spine 2-3 views Imaging Routine Neurogenic claudication due to lumbar spinal stenosis Lumbosacral radiculopathy Expected: 07/26/2023 (Approximate), Expires: 07/25/2024 [facility] Service Area Work Phone: Comment on above: Expected: 07/26/2023 (Approximate), Expi res: 07/25/2024 Start: 07-05-2023 End: 07-05-2023 Patient encounter procedure 07/05/2023 9:45 AM EDT Office Visit [facility] [address] [place] [phone] Mauricio Mancilla PA-C [address] [place] [address] [facility] Start: 05-19-2023 End: 05-19-2023 Patient encounter procedure 05/19/2023 9:00 AM EST Appointment [facility] [address] [facility] [address] [place] [phone] [facility] Start: 05-13-2023 End: 11-11-2023 25-hydroxyvitamin D3 [Mass/volume] in Serum or Plasma Vitamin D, Total Lab Routine Vitamin D deficiency Expected: 05/13/2023 (Approximate), Expires: 11/11/2023 [facility] Work Phone: Comment on above: Expected: [...] D deficiency Expected: 05/13/2023 (Approximate), Expires: 11/11/2023 [facility] Work Phone: Comment on above: Expected: [...] D deficiency Expected: 05/13/2023 (Approximate), Expires: 11/11/2023 [facility] Work Phone: Comment on above: Expected: [...] D deficiency Expected: 05/13/2023 (Approximate), Expires: 11/11/2023 [facility] Work Phone: Comment on above: Expected: 05/13/2023 (Approximate), Expi res: 11/11/2023 Start: 05-13-2023 End: 07-11-2024 DBT Breast - bilateral BI mammo bilateral screening tomosynthesis Imaging Routine Encounter for screening mammogram for breast cancer Expected: 05/13/2023, Expires: 07/11/2024 [facility] Service Area Work Phone: Comment on above: [...] D deficiency Expected: 05/13/2023 (Approximate), Expires: 11/11/2023 [facility] Work Phone: Comment on above: Expected: 05/13/2023 (Approximate), Expi res: 11/11/2023 Start: 05-13-2023 Medicare Annual Wellness Visit Medicare Annual Wellness Visit (AWV) [facility] Start: 05-13-2023 End: 11-11-2023 TSH with [...] D deficiency Expected: 05/13/2023 (Approximate), Expires: 11/11/2023 [facility] Work Phone: Comment on above: Expected: 05/13/2023 (Approximate), Expi res: 11/11/2023 Start: 05-13-2023 End: 05-13-2023 Patient encounter procedure 05/13/2023 10:00 AM EST Office Visit [facility] [address] [place] [address] Jasmine Mathias MD [address] [facility] [place] [address] [facility] Start: 05-05-2023 End: 05-05-2023 Patient encounter procedure 05/05/2023 2:30 PM EST Office Visit [facility] [address] [place] [address] Roderick Jeter, RYAN [address] [place] [address] [facility] Start: 03-24-2023 End: 03-24-2023 Patient encounter procedure 03/24/2023 8:45 AM EST Office Visit [facility] [address] [place] [address] Roderick Jeter DPM [address] [place] [address] [facility] Start: 03-08-2023 Screening for malignant neoplasm of breast Mammogram [facility] Start: 03-03-2023 End: 03-03-2023 Follow-up encounter 03/03/2023 9:15 AM EST Follow-Up [facility] [address] [place] [address] Roderick Jeter DPM [address] [place] [address] [facility] Start: 02-03-2023 End: 02-03-2023 Follow-up encounter 02/03/2023 2:15 PM EST Follow-Up [facility] [address] [place] [phone] Roderick Jeter, RYAN [address] [place] [address] [facility] Start: 01-26-2023 Screening for osteoporosis Bone Density Scan [facility] Start: 01-25-2023 End: 01-25-2023 Patient encounter procedure 01/25/2023 9:15 AM EDT Office Visit [facility] Building [address] [place] [address] 2nd [place] [address] Mauricio Mancilla PA-C [address] [place] [address] [place] [address] [facility] Start: 01-20-2023 End: 01-20-2023 Patient encounter procedure 01/20/2023 2:00 PM EDT Office Visit [facility] [address] [place] [address] Roderick Jeter DPM [address] [place] [address] [facility] Start: 01-10-2023 End: 01-10-2023 Patient encounter procedure 01/10/2023 1:45 PM EDT Office Visit [facility] [address] [place] [address] Roderick Jeter DPM [address] [place] [address] [facility] Start: 01-05-2023 End: 01-05-2023 Admission to same day surgery center 01/05/2023 10:19 AM EDT - 01/05/2023 12:39 PM EDT Surgery [facility] [address] [place] [address] Roderick Jeter DPM [address] [place] [address] OPEN REDUCTION INTERNAL pin fixation of dislocated 2nd hammer toe left [facility] Comment on above: OPEN REDUCTION INTERNAL pin fixation of dislocated 2nd hammer toe left Start: 01-05-2023 End: 01-05-2023 ARTHRODESIS METATARSAL PHALANGE ARTHRODESIS METATARSAL PHALANGE Hallux abductovalgus with bunions, left Dislocated toe, left, sequela 01/05/2023 10:19 AM EDT [facility] Start: 01-05-2023 End: 01-05-2023 OPEN REDUCTION INTERNAL FIXATION FOOT/TOE(S) OPEN REDUCTION INTERNAL FIXATION FOOT/TOE(S) Hallux abductovalgus with bunions, left Dislocated toe, left, sequela 01/05/2023 10:19 AM EDT [facility] Start: 01-05-2023 Subsequent hospital visit by physician [facility] Start: 01-03-2023 End: 01-03-2023 Patient encounter procedure 01/03/2023 11:00 AM EDT Office Visit [facility] [address] [place] [address] Roderick Jeter DPM [address] [place] [address] [facility] Start: 12-31-2022 End: 12-31-2022 Admission to establishment 12/31/2022 10:30 AM EDT Clinical Support [facility] Preadmission Testing [address] [place] [address] [facility] Preadmission [facility] Start: 12-27-2022 End: 12-28-2023 12 lead ECG ECG 12 Lead ECG Routine Hallux abductovalgus with bunions, left Dislocated toe, left, sequela Expected: 12/27/2022, Expires: 12/28/2023 [facility] Comment on above: Expected: 12/27/2022, Expires: 4 Start: 12-27-2022 End: 12-28-2023 Basic metabolic 2000 panel - Serum or Plasma Basic metabolic panel Lab Routine Hallux abductovalgus with bunions, left Dislocated toe, left, sequela Expected: 12/27/2022, Expires: 12/28/2023 [facility] Comment on above: Expected: 12/27/2022, Expires: 4 Start: 12-27-2022 End: 12-28-2023 Complete blood count with white cell differential, manual CBC and differential Lab Routine Hallux abductovalgus with bunions, left Dislocated toe, left, sequela Expected: 12/27/2022, Expires: 12/28/2023 [facility] Work Phone: Comment on above: Expected: 12/27/2022, Expires: 4 Start: 12-27-2022 End: 01-27-2023 CT Foot Left Without Contrast CT Foot Left Without Contrast Imaging STAT Dislocated toe, left, initial encounter Hammer toe of second toe of left foot Expected: 12/27/2022, Expires: 01/27/2023 [facility] Work Phone: Comment on above: Expected: 12/27/2022, Expires: 3 Start: 11-26-2022 COVID-19 Vaccine ( season) COVID-19 Vaccine ( season) [facility] Start: 11-26-[address] [facility] Start: 11-10-2022 End: 11-11-2023 XR Cervical spine 4 or 5 Views XR cervical spine complete 4-5 views Imaging Routine Neck pain Expected: 11/10/2022, Expires: 11/11/2023 [facility] Service Area Work Phone: Comment on above: Expected: 11/10/2022, Expires: Start: 11-10-2022 EPV, Provider: Jasmine Mathias, Status: Pen, Time: 10:00 AM EPV, Provider: Jasmine Mathias, Status: Pen, Time: 10:00 AM [facility] Work Phone: Start: 11-10-2022 End: 11-10-2022 Patient encounter procedure 11/10/2022 10:00 AM EDT Office Visit [address] [address] Jasmine Mathias MD [address] [place] [address] [place] [address] [facility] Start: 05-12-2022 EPV, Provider: Jasmine Mathias, Status: Pen, Time: 9:00 AM EPV, Provider: Jasmine Mathias, Status: Pen, Time: 9:00 AM [facility] DO Work Phone: Start: 05-12-2022 Patient encounter procedure Outpatient [facility] Start: 12-May-2022 9:00 Jasmine Mathias Intent [facility] Start: 04-01-2022 End: 04-01-2022 Patient encounter procedure 04/01/2022 Office Visit Heartburn Delvis Moncada MD [address] [place] [address] [facility] Start: 03-03-2022 COVID-19 Vaccine (4 - Booster for Moderna series) COVID-19 Vaccine (4 - Booster for Moderna series) [facility] Start: 03-03-2022 COVID-19 Vaccine (4 - Moderna series) COVID-19 Vaccine (4 - Moderna series) [facility] Start: 02-02-2022 End: 02-02-2022 Admission to establishment 02/02/2022 Clinical Support Pre-Admission Testing [facility] Start: 01-19-2022 INJECTION, Provider: Corby Jacobs, Status: Pen, Time: 1:00 PM INJECTION, Provider: Corby Jacobs, Status: Pen, Time: 1:00 PM [facility] 300 Work Phone: Start: 01-12-2022 INJECTION, Provider: Corby Jacobs, Status: Pen, Time: 1:00 PM INJECTION, Provider: Corby Jacobs, Status: Pen, Time: 1:00 PM [facility] 300 Work Phone: Start: 12-21-2021 End: 12-21-2021 Admission to same day surgery center 12/21/2021 Surgery Delvis Moncada MD [address] [facility] [address] [place] [address] ESOPHAGOGASTRODUODENOSCOPY WITH BIOPSY [facility] Comment on above: ESOPHAGOGASTRODUODENOSCOPY WITH BIOPSY Start: 12-21-2021 End: 12-21-2021 Esophagogastroduodenoscopy ESOPHAGOGASTRODUODENOSCOPY Esophageal dysphagia Heartburn Status post laparoscopic Rosalva fundoplication 12/21/2021 1:55 PM EDT [facility] Start: 12-21-2021 Subsequent hospital visit by physician 12/21/2021 Hospital Encounter Delvis Moncada MD [address] [place] [address] [facility] Start: 12-10-2021 NPV, Provider: Corby Jacobs, Status: Pen, Time: 9:30 AM NPV, Provider: Corby Jacobs, Status: Pen, Time: 9:30 AM [facility] 205 DO Work Phone: Start: 12-07-2021 End: 12-07-2021 Patient encounter procedure 12/07/2021 Appointment Radiology Delvis Moncada MD [address] [place] [address] [facility] Start: 11-26-2021 Influenza vaccination [facility] Start: 11-11-2021 EPV, Provider: Jasmine Mathias, Status: Pen, Time: 9:00 AM EPV, Provider: Jasmine Mathias, Status: Pen, Time: 9:00 AM [facility] Work Phone: Start: 05-13-2021 EPV, Provider: Jasmine Mathias, Status: Pen, Time: 9:00 AM EPV, Provider: Jasmine Mathias, Status: Pen, Time: 9:00 AM [facility] Work Phone: Start: 05-13-2021 Patient encounter procedure [facility] Medicine [place] Start: 04-22-2021 COVID-19 Vaccine (4 - Booster for Moderna series) COVID-19 Vaccine (4 - Booster for Moderna series) [facility] Start: 02-12-2021 FLUSHOT, Provider: PRIMARY CLAREMNT MS JESENIAL4 RN 1,[id number], Status: Pen, Time: 4:20 PM FLUSHOT, Provider: PRIMARY CLAREMNT MS JESENIAL4 RN 1,[id number], Status: Pen, Time: 4:20 PM [facility] Work Phone: Start: 01-02-2021 End: 01-02-2021 Office Visit 01/02/2021 Office Visit Endocrinology, Diabetes & Metabolism Mary Carmen Tovar MD [address] [place] [address] [phone] [facility] Endocrinology Start: 11-26-2020 Influenza vaccination Sequential Influenza Vaccine (#1) [facility] Start: 11-25-2020 End: 11-25-2020 Patient encounter procedure 11/25/2020 Office Visit Podiatry Nevaeh Hartman, RYAN [address] [place] [address] [phone] [facility] Start: 11-21-2020 NPV, Provider: Edison Bartlett, Status: Pen, Time: 8:45 AM NPV, Provider: Edison Bartlett, Status: Pen, Time: 8:45 AM [facility] Work Phone: Start: 11-21-2020 [facility] Start: 11-05-2020 EPV, Provider: Jasmine Mathias, Status: Pen, Time: 9:40 AM EPV, Provider: Jasmine Mathias, Status: Pen, Time: 9:40 AM [facility] Work Phone: Start: 11-05-2020 Patient encounter procedure [facility] Start: 11-04-2020 Blood count complete auto&auto difrntl wbc Complete Blood Count + Differential [facility] Work Phone: Start: 11-04-2020 Cobalamin (Vitamin B12) [Mass/Vol] Vitamin B12, Serum [facility] Work Phone: Start: 11-04-2020 Comprehensive metabolic 2000 panel -[facility] Work Phone: Start: 11-04-2020 Lipid panel Lipid Panel -[facility] Work Phone: Start: 09-15-2020 FUV, Provider: Nirav Alcantar, Status: Pen, Time: 11:15 AM FUV, Provider: Nirav Alcantar, Status: Pen, Time: 11:15 AM -[facility] Work Phone: Start: 02-19-2020 End: 02-19-2020 Infusion Visit 02/19/2020 Infusion Visit Chemotherapy [facility] Start: 01-03-2020 End: 01-03-2020 Office Visit 01/03/2020 Office Visit Endocrinology, Diabetes & Metabolism Mary Carmen Tovar MD [address] [place] [address] [phone] [facility] Start: 11-27-2019 Influenza vaccination INFLUENZA VACCINE (#1) [facility] Start: 11-27-2019 Influenza vaccination given Sequential Influenza Vacci ne (#1) [facility] Start: 01-01-2019 End: 01-01-2019 Office Visit 01/01/2019 Office Visit Endocrinology, Diabetes & Metabolism Mary Carmen Tovar MD [address] [place] [address] [phone] [facility] Endocrinology Start: 12-28-2018 End: 12-29-2019 Comprehensive metabolic 2000 panel COMPREHENSIVE METABOLIC PANEL Lab Routine Age-related osteoporosis without current pathological fracture Expected: 12/28/2018, Expires: 12/29/2019 [facility] Comment on above: Expected: 12/28/2018, Expires: 0 Start: 12-28-2018 End: 12-29-2019 TSH W/FT4 REFLEX TSH W/FT4 REFLEX Lab Routine Age-related osteoporosis without current pathological fracture Nontoxic multinodular goiter Expected: 12/28/2018, Expires: 12/29/2019 [facility] Comment on above: Expected: 12/28/2018, Expires: 0 Start: 12-28-2018 End: 12-29-2019 VITAMIN D (25-HYDROXY,TOTAL) VITAMIN D (25-HYDROXY,TOT AL) Lab Routine Age-related osteoporosis without current pathological fracture Expected: 12/28/2018, Expires: 12/29/2019 [facility] Comment on above: Expected: 12/28/2018, Expires: 0 Start: 11-26-2018 Influenza vaccination INFLUENZA VACCINE (#1) [facility] Start: 11-26-2018 Influenza vaccination given Sequential Influenza Vacci ne (#1) [facility] Start: 03-13-2018 End: 03-13-2018 Ambulatory [facility] Start: 03-09-2018 End: 03-09-2018 Ambulatory 03/09/2018 Office Visit General Surgery Delvis Moncada MD [address] [address] [phone] [facility] Start: 02-03-2018 End: 02-03-2018 Ambulatory 02/03/2018 Office Visit General Surgery Delvis Moncada MD [address] [place] [address] [phone] [facility] Start: 12-22-2017 Pneumococcal vaccination Pneumococcal Vaccine Age 65+ (2 of 2 - PPSV23) [facility] Start: 11-26-2017 Influenza vaccination [facility] Start: 11-14-2017 End: 11-14-2017 Ambulatory 11/14/2017 Scanned Document General Surgery Delvis Moncada MD [address] [address] [phone] [facility] Start: 10-20-2017 End: 10-20-2017 Ambulatory [facility] Start: 08-09-2017 End: 08-09-2017 Ambulatory 08/09/2017 Scanned Document Heartburn Delvis Moncada MD [address] [place] [address] [phone] [facility] Start: 08-09-2017 End: 08-09-2017 Ambulatory 08/09/2017 Scanned Document Heartburn Delvis Moncada MD [address] [place] [address] [phone] [facility] Start: 07-27-2017 End: 07-27-2017 Ambulatory 07/27/2017 Office Visit Heartburn Jasmine Mathias MD [address] [place] [phone] Delvis Moncada MD [address] [place] [address] [phone] [facility] Start: 11-26-2016 Influenza vaccination SEQUENTIAL INFLUENZA VACCINE (#1) [facility] Start: 10-28-2016 Fall risk assessment Falls Risk Assessment [facility] Start: 10-28-2016 Pneumococcal vaccination [facility] Start: 10-28-2016 Pneumococcal Vaccine: Age 65+ (1 of 1 - PPSV23) Pneumococcal Vaccine: Age 65+ (1 of 1 - PPSV23) [facility] Start: 01-29-2016 Screening for malignant neoplasm of colon COLORECTAL CANCER SCREENING DISCUSSION [facility] Start: 11-29-2015 Screening for malignant neoplasm of breast Mammogram [facility] Start: 11-29-2015 Screening mammography Mammogram [facility] Start: 2011 Respiratory Syncytial Virus Immunization: Risk, 60-74 Risk, or 75+ (1 - Risk 60-74 years 1-dose series) Respiratory Syncytial Virus Immunization: Risk, 60-74 Risk, or 75+ (1 - Risk 60-74 years 1-dose series) [facility] Start: 2011 RSV patients and/or patients aged 60+ years (1 - 1-dose 60+ series) RSV patients and/or patients aged 60+ years (1 - 1-dose 60+ series) [facility] Start: 2011 Zoster vacc, sc ZOSTER VACCINE [facility] Start: 10-28-2001 Administration of herpes zoster vaccine Zoster Vaccines (1 of 2) [facility] Start: 10-28-2001 Colonoscopy [facility] Start: 10-28-2001 Screening for malignant neoplasm of colon [facility] Start: 10-28-2001 Zoster vaccine hzv live for subcutaneous use ZOSTER (SHINGLES) VACCINE (1 of 2) [facility] Start: 10-28-2001 ZOSTER VACCINES (1 of 2) ZOSTER VACCINES (1 of 2) [facility] Start: 10-28-1996 Screening for malignant neoplasm of colon COLORECTAL CANCER SCREENING DISCUSSION [facility] Start: 1991 Fasting lipid profile LIPID SCREENING [facility] Start: 1991 Lipid panel LIPID SCREENING [facility] Start: 1991 Screening for malignant neoplasm of breast [facility] Start: 1991 Screening mammography MAMMOGRAM SCREENING DISCUSSION [facility] Start: 10-28-1972 Screening for malignant neoplasm of cervix [facility] Start: 10-28-1970 Administration of herpes zoster vaccine Zoster Vaccines (1 of 2) [facility] Start: 10-28-1970 Third diphtheria, tetanus and acellular pertussis (DTaP) vaccination TDAP (ADULT) [facility] Start: 10-28-1969 Diabetes mellitus screening Diabetes Screening [facility] Start: 10-28-1969 Hepatitis C antibody, confirmatory test Hepatitis C Screening [facility] Start: 10-28-1969 Hepatitis C screening Hepatitis C Screening [facility] Start: 10-28-1969 Tetanus vaccination TETANUS [facility] Start: 1967 COVID-19 Vaccine (1 of 2) COVID-19 Vaccine (1 of 2) [facility] Start: 1963 Adolescent depression screening assessment Depression Screening (PHQ9) [facility] Start: 1963 Depression screening using PHQ-9 (Patient Health Questionnaire 9) score [facility] Start: 10-28-1954 History and physical examination, annual for health maintenance Wellness Visit [facility] Start: 04-30-1952 COVID-19 VACCINE (#1) COVID-19 VACCINE (#1) [facility] Start: 1951 Depression screening using PHQ-9 (Patient Health Questionnaire 9) score Depression Screening (PHQ9) [facility] Start: 1951 Fall risk assessment Falls Risk Assessment [facility] Start: 1951 Hepatitis B vaccination HEP B VACCINE (1 of 3 - 3-dose series) [facility] Start: 1951 Hepatitis C antibody, confirmatory test [facility] Start: 1951 Hepatitis C screening HEPATITIS C VIRUS SCREENING [facility] Start: 1951 Medicare Annual Wellness Visit Medicare Annual Wellness Visit (AWV) [facility] Start: 1951 Potassium [Moles/Vol] POTASSIUM [facility] Start: 1951 Screening for malignant neoplasm of colon [facility] Start: 1951 Screening mammography Mammogram [facility] Start: 1951 HEPATITIS C SCREENING HEPATITIS C SCREENING [facility] Start: 1951 Screening colonoscopy COLONOSCOPY [facility] Start: 1951 End: 1951 Screening for osteoporosis [facility] Start: 1951 End: 1951 Tetanus vaccination [facility] ARTHRODESIS METATARS AL PHALANGE ARTHRODESIS METATARSAL PHALANGE Hallux abductovalgus with bunions, left Dislocated toe, left, sequela [facility] C-TELOPEPTIDE C-TELOPEPTIDE La b Routine Age-related osteoporosis without current pathological fracture Ordered: 01/03/2020 [facility] Comment on above: Ordered: 01/03/2020 Comprehensive metabo lic 2000 panel COMPREHENSIVE METABOLIC PANEL Lab Routine Age-related osteoporosis without current pathological fracture Ordered: 01/03/2020 [facility] Comment on above: Ordered: 01/03/2020 CROSS-LINKED N-TELOPEP,UR CROSS- LINKED N-TELOPEP,UR Fluids Routine Age-related osteoporosis without current pathological fracture Ordered: 01/03/2020 [facility] Comment on above: Ordered: 01/03/2020 End: 02-02-2024 CT Hip - right WO contrast [facility] Service Area Work Phone: Comment on above: Once for 1 Occurrences starting 02/02/20 until 02/02/2024 End: 12-28-2023 CT Lumbar spine WO contrast [facility] Area Work Phone: Comment on above: Once for 1 Occurrences starting 12/28/19 until 12/28/2023 End: 02-02-2024 CT Pelvis WO contrast [facility] Area Work Phone: Comment on above: Once for 1 Occurrences starting 02/02/20 until 02/02/2024 End: 03-04-2023 Epidural steroid injection Epidural Steroid Injection Procedures Routine Cervical radiculitis Once for 1 Occurrences starting 03/04/2023 until 03/04/2023 [facility] Area Work Phone: Comment on above: Once for 1 Occurrences starting 03/04/20 until 03/04/2023 End: 11-26-2022 Fluoroscopy of esophagus XR Esophagram Swallow Study Imaging Routine Esophageal dysphagia Status post laparoscopic Rosalva fundoplication 1 Occurrences starting 11/26/2021 until 11/26/2022 [facility] Work Phone: Comment on above: 1 Occurrences starting 11/26/2021 until 11/26/2022 H/O Spinal surgery History of back surger y [facility] H/O: surgery [facility] Comment on above: with cement H/O: tubal ligation History of tubal liga tion [facility] History of appendectomy History of append ectomy [facility] History of bilateral salpingo-oophorectomy History of bilateral salpingo-oophorectomy (BSO) [facility] History of fundoplication Histor y of Rosalva fundoplication [facility] History of hernia repair History of herni a repair [facility] History of operative procedure on foot History of foot surgery [facility] History of operative procedure on hip History of operative procedure on hip Comments: right hip 2010 [facility] Comment on above: right hip 2010 History of tonsillectomy History of tonsi llectomy [facility] History of total hysterectomy History of total abdominal hysterectomy [facility] ROSALVA FUNDOPLICATIO N ROBOTIC XI ROSALVA FUNDOPLICATION ROBOTIC XI Hiatal hernia with GERD without esophagitis [facility] Main OR OPEN REDUCTION INTER NAL FIXATION FOOT/TOE(S) OPEN REDUCTION INTERNAL FIXATION FOOT/TOE(S) Hallux abductovalgus with bunions, left Dislocated toe, left, sequela [facility] Past history of procedure Histor y of esophagogastroduodenoscopy (EGD) [facility] POCT glucose meter d ocked device POCT glucose meter docked device Point of Care Testing - Docked Device Routine As needed (Lab) for 1 Occurrences starting 08/26/2023 [facility] Work Phone: Comment on above: As needed (Lab) for 1 Occurrences starti ng 08/26/2023 End: 08-26-2023 Transforaminal Transforaminal Procedures Routine Lumbosacral radiculopathy Neurogenic claudication due to lumbar spinal stenosis Once for 1 Occurrences starting 08/26/2023 until 08/26/2023 [facility] Service Area Work Phone: Comment on above: Once for 1 Occurrences starting 08/26/19 24 until 08/26/2023 TSH Qn TSH Lab Routine Age-related osteoporosis without current pathological fracture Ordered: 01/03/2020 [facility] Comment on above: Ordered: 01/03/2020 VITAMIN D (25-HYDROXY,TOTAL) VIT SALAS D (25-HYDROXY,TOTAL) Lab Routine Age-related osteoporosis without current pathological fracture Ordered: 01/03/2020 [facility] Comment on above: Ordered: 01/03/2020 VITAMIN D (25-HYDROXY,TOTAL) VIT SALAS D (25-HYDROXY,TOTAL) Lab Routine Age-related osteoporosis without current pathological fracture Vitamin D deficiency Ordered: 02/17/2024 [facility] Comment on above: Ordered: 02/17/2024 End: 12-28-2023 XR Hip Views [facility] Service Area Work Phone: Comment on above: Once for 1 Occurrences starting 12/28/19 until 12/28/2023 End: 07-27-2023 [facility] Work [facility]: Comment on above: Once for 1 Occurrences starting 07/27/19 until 07/27/2023 End: 12-11-2024 XR Spine Views XR EOS full spine 2 view scolosis Imaging Routine Neurogenic claudication due to lumbar spinal stenosis Lumbosacral radiculopathy 1 Occurrences starting 12/12/2023 until 12/11/2024 [facility] Work Phone: Comment on above: 1 Occurrences starting 12/12/2023 until 12/11/2024 NEGATED: Highlighted row has been ruled out! Planned Goals not documented [facility] Work Phone: Immunizations Immunization Date Immunization Notes Care Provider [facility] 01-24-2024 RESPIRATORY SYNCYTIA L VIRUS (RSV), ELIGIBLE PTS, 0.5 ML (ABRYSVO) Jasmine Mathias MD Work Phone: [facility] Work Phone: 01-24-2024 Seasonal trivalent influenza vaccine, adjuvanted, preservative free Jasmine Mathias MD Work Phone: [facility] Work Phone: 03-10-2023 Flu vaccine, quadrivalent, high-dose, preservative free, age 65y+ (FLUZONE) Mauricio Mancilla PA-C Work Phone: [facility] 03-10-2023 influenza virus vaccine, unspecified formulation Jasmine Mathias MD Work Phone: [facility] Work Phone: 07-15-2022 zoster vaccine recombinant Jasmine Mathias MD Work Phone: [facility] Work Phone: 05-06-2022 zoster vaccine recombinant Jasmine Mathias Work Phone: [facility] Work Phone: 01-06-2022 Fluad Quadrivalent 0 .5 ML Intramuscular Prefilled Syringe Jasmine Doreen Mathias Work Phone: [facility] Work Phone: 01-06-2022 Pfizer COVID-19 Vac Bivalent 30 MCG/0.3ML Intramuscular Suspension Jasminegregoria Mathias Work Phone: [facility] Work Phone: 01-06-2022 influenza virus vaccine, unspecified formulation Jasmine Mathias MD Work Phone: [facility] Work Phone: 02-12-2021 Fluzone High-Dose Quadrivalent 0.7 ML Intramuscular Suspension Prefilled Syringe; Translations: [Fluzone High-Dose Quadrivalent 0.7 ML Intramuscular Suspension Prefilled Syringe] Jasmine Doreen Mathias Work Phone: [facility] Work Phone: Comment on above: Series: 02-12-2021 influenza, high dose seasonal, preservative-free Jasmine Mathias MD Work Phone: [facility] Work Phone: 02-12-2021 influenza, seasonal, injectable Jasminemarilee Mathias Work Phone: [facility] Work Phone: Comment on above: Series: 02-12-2021 influenza virus vaccine, unspecified formulation Mary Carmen Tovar MD Work Phone: [facility] 01-28-2021 Moderna COVID-19 Vaccine 100 MCG/0.5ML Intramuscular Suspension Jasminemarilee Mathias Work Phone: [facility] Work Phone: 06-27-2020 Moderna COVID-19 Vaccine 100 MCG/0.5ML Intramuscular Suspension Jasmine Doreen Vic Work Phone: [facility] Work Phone: 05-29-2020 Moderna COVID-19 Vaccine 100 MCG/0.5ML Intramuscular Suspension Jasminemarilee Mathias Work Phone: [facility] Work Phone: 01-16-2020 Fluzone High-Dose Quadrivalent 0.7 ML Intramuscular Suspension Prefilled Syringe; Translations: [Fluzone High-Dose Quadrivalent 0.7 ML Intramuscular Suspension Prefilled Syringe] Jasmine [facility] Work Phone: Comment on above: Series: 01-16-2020 influenza, high dose seasonal, preservative-free Jasmine Mathias MD Work Phone: [facility] Work Phone: 04-27-2019 tetanus toxoid, redu claribel diphtheria toxoid, and acellular pertussis vaccine, adsorbed Jasmine [facility] Comment on above: Series: 12-15-2017 pneumococcal polysaccharide vaccine, 23 valent Jasmine [facility] Comment on above: Series: 12-08-2017 influenza, high dose seasonal, preservative-free Jasmine Mathias Work Phone: [facility] Work Phone: 12-08-2017 influenza virus vaccine, unspecified formulation [facility] 12-22-2016 influenza, injectabl e, quadrivalent, preservative free Jasmine Mathias Work Phone: [facility] Work Phone: 12-22-2016 pneumococcal conjuga te vaccine, 13 valent Jasmine Mathias MD Work Phone: [facility] Work Phone: 12-22-2016 pneumococcal conjuga te vaccine, 7 valent Jasmine Mathias [facility] Work Phone: Comment on above: Series: 02-11-2009 novel [id number], preservative-free, injectable Jasmine Logan Vic Work Phone: [facility] Work Phone: Payers Date Payer Category Payer Self-pay 2016 [facility] TRADITIONAL [id number] 2016 Medicare supplementa l policy (as second payer) ANTHEM MEDICARE SELECT SUPPLEMENT [id number] 2016 Unknown [id number] [id number] .7.3.967175.315 2013 Medicare xxxxxxxxxxx [id number] .[id number] 2013 Medicare [id number] .7.3.614212.315 2013 Medicare [id number]. 1.13.385.2 .7.3.269579.315 2013 Unknown [id number] 1.2.840.086045.1.13.172.2 .7.3.107943.315 2013 Unknown 2013 Medicare [id number] 2013 Medicare [id number] 2013 [facility] [id number] 2013 Unknown [id number] 1951 Unknown [id number] 2.16840.1.170343.3.579.2 .356 1951 Unknown [id number] 2.840.1.475638.3.579.2 .356 1951 Unknown [id number] 2.840.1.535277.3.579.2 .356 1951 Unknown [id number] 2.16840.1.490344.3.579.2 .356 1951 Unknown [id number] 2.16840.1.258647.3.579.2 .356 1951 Unknown [id number] 2.16840.1.894018.3.579.2 .356 1951 Unknown [id number] 2.16840.1.849687.3.579.2 .1069 1951 Unknown [id number] 2.16840.1.626794.3.579.2 .1069 1951 Unknown [id number] 2.16.840.1.511874.3.579.2 .1069 1951 Unknown [id number] 2.16840.1.924462.3.579.2 .9 1951 Unknown [id number] 2.16.840.1.298427.3.579.2 .1068 1951 Unknown [id number] 2.16.840.1.124106.3.579.2 .1068 1951 Unknown [id number] 2.16.840.1.267147.3.579.2 .1068 1951 Unknown [id number] 2.16.840.1.406128.3.579.2 .1068 1951 Unknown [id number] 2.16.840.1.873737.3.579.2 .1068 1951 Unknown [id number] 2.16.840.1.017183.3.579.2 .1068 1951 Unknown [id number] 2.16.840.1.958880.3.579.2 .1068 1951 Unknown [id number] 2.16.840.1.359519.3.579.2 .1951 Unknown [id number] 2.16.840.1.993127.3.579.2 .1951 Unknown [id number] 2.16.840.1.890858.3.579.2 .1951 Unknown [id number] 2.16.840.1.035950.3.579.2 .1951 Unknown [id number] 2.16.840.1.754879.3.579.2 .90 1951 Unknown [id number] 2.16.840.1.568002.3.579.2 .2 1951 Unknown [id number] 2.16.840.1.615539.3.579.2 .1242 1951 Unknown [id number] 2.16.840.1.194409.3.579.2 .983 1951 Unknown [id number] 2.16.840.1.621935.3.579.2 .1244 1951 Unknown [id number] 2.16.840.1.388425.3.579.2 .1244 1951 Unknown [id number] 2.16.840.1.711868.3.579.2 .1244 1951 Unknown [id number] 2.16.840.1.064771.3.579.2 .1244 1951 Unknown [id number] 2.16.840.1.872393.3.579.2 .1244 1951 Unknown [id number] 2.16.840.1.231243.3.579.2 .1244 1951 Unknown [id number] 2.840.1.104320.3.579.2 .1244 1951 Unknown [id number] 2.16840.1.420360.3.579.2 .983 1951 Unknown [id number] 2.840.1.601070.3.579.2 .1243 1951 Unknown [id number] 2.16840.1.006739.3.579.2 .1243 1951 Unknown [id number] 2.840.1.552638.3.579.2 .1243 1951 Unknown [id number] 2.16840.1.314912.3.579.2 .1243 1951 Unknown [id number] 2.16.840.1.861928.3.579.2 .1243 1951 Unknown [id number] 2.16.840.1.747588.3.579.2 .1243 1951 Unknown [id number] 2.16840.1.186062.3.579.2 .1243 1951 Unknown [id number] 2.16.840.1.356176.3.579.2 .1243 1951 Unknown [id number] 2.16.840.1.816332.3.579.2 .1243 1951 Unknown [id number] 2.16.840.1.923130.3.579.2 .1243 1951 Unknown [id number] 2.840.1.876056.3.579.2 .1951 Unknown [id number] 2.840.1.748921.3.579.2 .1951 Unknown [id number] 2.840.1.661722.3.579.2 .1951 Unknown [id number] 2.840.1.364450.3.579.2 .1951 Unknown [id number] 2.840.1.343775.3.579.2 .1951 Unknown [id number] 2.840.1.324429.3.579.2 .1951 Unknown [id number] 2.840.1.182629.3.579.2 .1951 Unknown [id number] 2.840.1.139333.3.579.2 .1242 1951 Unknown [id number] 2.840.1.830256.3.579.2 .1242 1951 Unknown [id number] 2.840.1.800432.3.579.2 .1242 1951 Unknown [id number] 2.16.840.1.415631.3.579.2 .1242 1951 Unknown [id number] 2.16840.1.606210.3.579.2 .1242 1951 Unknown [id number] 2.16.840.1.902783.3.579.2 .1242 1951 Unknown [id number] 2.16.840.1.432053.3.579.2 .1242 1951 Unknown [id number] 2.16.840.1.696620.3.579.2 .1242 1951 Unknown [id number] 2.16.840.1.132709.3.579.2 .1242 1951 Unknown [id number] 2.16.840.1.921484.3.579.2 .1242 1951 Unknown [id number] 2.16.840.1.269026.3.579.2 .1242 1951 Unknown [id number] 2.16.840.1.351557.3.579.2 .1242 1951 Unknown [id number] 2.840.1.379115.3.579.2 .1242 1951 Unknown [id number] 2.16.840.1.127501.3.579.2 .1242 1951 Unknown [id number] 2.16840.1.124593.3.579.2 .1242 1951 Unknown [id number] 2.16.840.1.545489.3.579.2 .1242 1951 Unknown [id number] 2.16.840.1.833345.3.579.2 .1242 1951 Unknown [id number] 2.16.840.1.077972.3.579.2 .1242 1951 Unknown [id number] 2.16.840.1.585579.3.579.2 .1242 1951 Unknown [id number] 2.16.840.1.541061.3.579.2 .1242 1951 Unknown [id number] 2.16.840.1.039774.3.579.2 .1243 1951 Unknown [id number] 2.16.840.1.323737.3.579.2 .1242 1951 Unknown [id number] 2.16.840.1.382488.3.579.2 .1243 1951 Unknown [id number] 2.16.840.1.612542.3.579.2 .1242 1951 Unknown [id number] 2.16.840.1.747977.3.579.2 .1242 1951 Unknown [id number] 2.16.840.1.712224.3.579.2 .1242 1951 Unknown [id number] 2.16.840.1.656352.3.579.2 .1242 1951 Unknown [id number] 2.16840.1.025240.3.579.2 .1242 1951 Unknown [id number] 2.16.840.1.308950.3.579.2 .1243 Medicare [id number] Unknown [id number] 2.16.840.1.781755.3.579.2 .462 Unknown [id number] 2.16840.1.098792.3.579.2 .462 Unknown [id number] 2.16840.1.172106.3.579.2 .462 Unknown [id number] 2.16840.1.302616.3.579.2 .462 Unknown [id number] 2.16840.1.624170.3.579.2 .462 Social History Date Type Detail Facility Start: 08-24-2017 End: 02-15-2022 Tobacco smoking status NHIS Former smoker [facility] Start: 1950 Sex Assigned At Not on file [facility] Start: 07-25-2017 End: 12-31-2022 Tobacco smoking status AZIS Never smoker [facility] Start: 01-01-2019 End: 02-17-2024 Alcohol intake Ex-drinker (finding) [facility] Start: 06-11-2019 End: 09-14-2024 Alcohol intake Current non-drinker of alcohol (finding) [facility] Start: 01-03-2020 End: 12-31-2022 Tobacco use and exposure Never used [facility] Start: 10-28-2020 End: 09-14-2024 Never smoker Never smoker [facility] Work Phone: Tobacco smoking consumption unknown [facility] Start: 11-16-2021 End: 08-31-2024 Exposure to SARS-CoV-2 (event) Not sure [facility] History of tobacco use Current smoker [facility] History of tobacco use Cigarette Smoker [facility] Start: 09-30-2022 End: 09-10-2024 Alcohol intake Lifetime non-drinker (finding) [facility] Work Phone: Start: 11-10-2022 End: 09-14-2024 Gender identity Not on file [facility] Work Phone: Start: 08-02-2017 Gender identity Identifies as female gender (finding) [facility] Start: 12-15-2017 Sexual orientation Heterosexual (fin ding) [facility] History of tobacco use Passive smoker [facility] Work Phone: Start: 1950 Sex assigned at Female [facility] NEGATED: Highlighted row - - [facility] Work Phone: Medical Equipment Procedure Code Equipment Code Equipment Origin al Text Equipment Identifier Dates Mesh 7 X 10cm Resorbable Phasix [facility] - [facility] ()[id number])[id number], [id number] FDA Start: 02-15-2022 Wire K 0.062in Smooth Dbl End - [id number] Start: 01-05-2023 Comment on above: Description: 2nd toe 3.5 Mm Cannulate d Screw Size 28mm Long Thread [id number] Start: 01-05-2023 Comment on above: Description: Great t oe Load # 24 01-04-23 Plate 2.4/2.7mm Va-Lcp First Mtp Fusion Sm 5deg Lt - [id number] Start: 01-05-2023 Comment on above: Description: Great t oe Load #27 12/29/22 Screw 2.7 X 12mm Va Lock T8 Strdrv Rec - [id number] Start: 01-05-2023 Comment on above: Description: Great T oe Load #27 12-29-22 Screw 2.7 X 14mm Va Lock T8 Strdrv Rec - [id number] Start: 01-05-2023 Comment on above: Description: Great T oe Load #27 12-29-22 Functional Status Date Assessment Result Facility 09-10-2024 [place] - suicide severity rating scale screener - recent [C-SSRS] [facility] Work Phone: 07-16-2024 Patient Health Questionnaire 2 item (PHQ-2) [Reported] [facility] Work Phone: 07-16-2024 [place] - suicide severity rating scale screener - recent [C-SSRS] [facility] Work Phone: NEGATED: Highlighted row Functional performance Functional status health issues are not documented Disease [facility] Work Phone: Mental Status Date Assessment Result Facility NEGATED: Highlighted row Cognitive function [Interpretation] Cognitive status health issues are not documented Disease 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/24/2023 Sciatica 01/24/2023 Postlaminectomy syndrome of lumbar region 06/25/2024 Right shoulder pain 07/10/2024 Anterolisthesis of cervical spine 07/16/2024 Resolved Ambulatory Problems Diagnosis Date Noted No Resolved Ambulatory Problems Past Medical History: Diagnosis Date Encounter for other screening for malignant neoplasm of breast Encounter for screening for malignant neoplasm of colon Encounter for screening for osteoporosis Fibrocystic breast [id number] Pain in unspecified hip 02/19/2020 Personal history [...] Procedure Laterality Date BACK SURGERY BREAST BIOPSY [id number] CATARACT EXTRACTION Bilateral 2022 CERVICAL FUSION 2008 [...] Unknown Sanjuana Bills DO Resident 09/10/[address] [facility] Work Phone: 09-10-2024 Emergency department Note [...] Encounter for screening for osteoporosis Fibrocystic breast [id number] Pain in unspecified hip 02/19/2020 Personal history [...] Procedure Laterality Date BACK SURGERY BREAST BIOPSY [id number] CATARACT EXTRACTION Bilateral 2022 CERVICAL FUSION 2007 [...] Resident 09/10/24 182 [address] in this encounter [facility] Work Phone: 08-31-2024 History of Present illness Narrative Subjective Patient ID: Narendra Arguelles is a 73 y.o. female who presents for Pre-op Exam. [facility] Review of Systems Objective Physical Exam Assessment/Plan Kathya Bond MA 08/31/24 4:06 PM Subjective Narendra Arguelles is a 73 y.o. female who presents for Pre-op Exam. Here for pre-op evaluation for neck surgery/removal of hardware. She has h/o HTN, high chol, GERD (Dr Moncada), osteoporosis, anxiety, chronic pain, rheumatoid arthritis (Dr Chisholm), precancerous lesions on legs ([facility] [employer] [place]) - all stable. She will also be [...] Jasmine Mathias MD documented in this encounter [facility] Work Phone: 08-31-2024 Instructions Jasmine Mathias MD - 08/31/2024 4:20 PM EDT She is medically stable for surgery. Follow up here as scheduled. documented in this encounter [facility] Work Phone: 08-24-2024 Note Right great [...] BY BAR TRIANA JR., ON 08/24/2024 15:11:45 [facility] 08-24-2024 History of Present illness Narrative Right [...] symptomatic and painful. documented in this encounter [facility] 08-10-2024 Evaluation note Diagnosis Onset Date Resolution Cervical myelopathy with cervical radiculopathy acute August 10, 2024 9:25am Degenerative disc disease, cervical acute August 10, 2024 9:25am History of fusion of cervical spine acute August 10, 2024 9:25am Spondylolisthesis of cervical region acute August 10, 2024 9:25am Gustine Verteego ([employer]) Work Phone: 1([phone]) [phone] History of Present illness Narrative* Celeste Moran [...] of her seeing neurosurgery. documented in this [facility] Work Phone: 1([phone]) 290-139604-15-2025 Evaluation + Plan note* Assessment & Plan Note - Soraya Hernandez MD - 07/10/2024 10:31 AM EDTAssociated Problem(s): Right shoulder pain Assessment: Cervical spondylosis with right upper extremity radiculopathy. She has a history of cervical fusion. This was done by a surgeon out of [place] who is now retired. Plan: Medrol Dosepak take as directed. Voltaren gel use as directed. Follow-up with pain management. If her neck pain continues she would benefit from reevaluation withthe spine surgery group that took over for her doctor. Follow-up in our office on a as needed basis. [facility] Work Phone: [phone]) 138-293204-15-2025 Miscellaneous Notes* Assessment & Plan Note - Soraya Hernandez MD - 07/10/2024 10:31 AM EDTAssociated Problem(s): Right shoulder pain Assessment: Cervical spondylosis with right upper extremity radiculopathy. She has a history of cervical fusion. This was done by a surgeon out of [place] who is now retired. Plan: Medrol Dosepak take as directed. Voltaren gel use as directed. Follow-up with pain management. If her neck pain continues she would benefit from reevaluation withthe spine surgery group that took over for her doctor. Follow-up in our office on a as needed basis. [facility] Work Phone: [phone] History of Present illness Narrative* Soraya Hernandez [...] was done by a surgeon out of [place] who is now retired. Plan: Medrol Dosepak [...] performed using 8-13 MHz linear transducer with [employer] STUDY TYPE: 1. ULTRASOUND EXTREMITY INCLUDING [...] (Voltaren) 1 % gel documented in [facility] Work Phone: 1([phone]) 294-182904-01-2025 History of Present illness Narrative* Kathya Bond [...] views Jasmine Mathias MD documented in this [facility] Work Phone: [phone] 452-967704-01-2025 Instructions* Patient Instructions* Jasmine Mathias MD - 06/26/2024 11:40 AM EDT She has some prednisone at home and will take that for a few days, she also has some flexeril at home and hasn't tried that so she will try that. Will get some Xrays as well. Follow up based on results and symptoms. documented in this [facility] Work Phone: [phone]) 344-429503-31-2025 History of Present illness Narrative* Celeste Wood Dean, EXCELLENCE 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 MACHINE - 06/25/2024 10:15 AM EDT Subjective Patient [...] try, and agreed to a referral to [facility] and to proceed with psych eval. at [...] is hesitantly agreeable to being referred to [facility] to discuss the trial process more in depth with Dr. Estrada there. Will also refer to psych for the standard psych eval as part of the SCS trial workup. In the meantime, we will try the pregabalin back to gabapentin added equivalent dose of 800 mg 3 times a day. Follow-up per protocol. [facility] Work Phone: [phone] Miscellaneous Notes* Perioperative Nursing Note - Chula Silverman RN - 06/06/2024 11:38 AM EDT Discharge instructions reviewed by Marva Knight RN no questions and verbalized understanding. discharged to exit via wheel chair to be driven home by alexia Finn documented [facility] Work Phone: [phone] Nurse Surgical operation note* Perioperative Nursing Note - Chula Silverman RN - 06/06/2024 11:38 AM EDT Discharge instructions reviewed by Marva Knight RN no questions and verbalized understanding. discharged to exit via wheel chair to be driven home by alexia Finn well [facility] Work Phone: [phone] 467-658403-12-2025 NoteTable formatting from the original result was [...] Procedure Provider Smith Estrada DO Procedure Location [facility] [place] [address] [facility] [id number] Referring Provider Mauricio Mancilla PA-C [address] [place] [id number] History and physical note* Smith Estrada DO [...] screening for osteoporosis Osteoporosis screening Fibrocystic breast [id number] Osteopenia Osteoporosis Pain in unspecified hip 02/19/2020 Hip pain, acute Personal history of diseases of the blood and blood-forming organs and certain disorders involving the immune mechanism 11/21/2019 History of anemia Surgical History Past Surgical History: Procedure Laterality Date BACK SURGERY BREAST BIOPSY [id number] CATARACT EXTRACTION Bilateral 2022 CERVICAL FUSION 2007 [...] care of this patient. Smith Estrada DO [facility] Work Phone: [phone] History and physical note* Smith Estrada DO [...] screening for osteoporosis Osteoporosis screening Fibrocystic breast 55667244 Osteopenia Osteoporosis Pain in unspecified hip 02/19/2020 Hip pain, acute Personal history of diseases of the blood and blood-forming organs and certain disorders involving the immune mechanism 11/21/2019 History of anemia Surgical History Past Surgical History: Procedure Laterality Date BACK SURGERY BREAST BIOPSY [id number] CATARACT EXTRACTION Bilateral 2022 CERVICAL FUSION 2008 [...] [facility]: [phone] 636-205602-24-2025 History of Present illness Narrative* Jasmine Mathias [...] Primary Jasmine Mathias MD documented in this encounterSt[facility] Work Phone: [phone] 203-564802-24-2025 Instructions* Patient Instructions* Jasmine Mathias MD - 05/21/2024 10:00 AM EST Finish current medications. Follow up if no improvement or if she worsens. documented in this encounterSt[facility] Work Phone: [phone] Evaluation + Plan note* Assessment & Plan Note - Jasmine Mathias MD - 05/14/2024 10:00 AM ESTAssociated Problem(s): Anxiety Orders: Follow Up In Primary Care - Medicare Annual [facility] Work Phone: [phone] Evaluation + Plan note* Assessment & Plan Note - Jasmine Mathias MD - 05/14/2024 10:00 AM ESTAssociated Problem(s): Chronic pain Orders: Follow Up In Primary Care - Medicare Annual [facility] Work Phone: [phone] Evaluation + Plan note* Assessment & Plan Note - Jasmine Mathias MD - 05/14/2024 10:00 AM ESTAssociated Problem(s): HTN (hypertension) Orders: Follow Up In Primary Care - Medicare Annual CBC and Auto Differential; Future Comprehensive Metabolic Panel; Future Lipid Panel; Future TSH with reflex to Free T4 if abnormal; Future Vitamin B12; Future [facility] Work Phone: [phone] Evaluation + Plan note* Assessment & Plan Note - Jasmine Mathias MD - 05/14/2024 10:00 AM ESTAssociated Problem(s): Hypercholesteremia Orders: Follow Up In Primary Care - Medicare Annual CBC and Auto Differential; Future Comprehensive Metabolic Panel; Future Lipid Panel; Future TSH with reflex to Free T4 if abnormal; Future Vitamin B12; Future [facility] Work Phone: [phone] 613-786202-17-2025 Evaluation + Plan note* Assessment & Plan Note - Jasmine Mathias MD - 05/14/2024 10:00 AM ESTAssociated Problem(s): Osteoporosis Orders: Follow Up In Primary Care - Medicare Annual [facility] Work Phone: [phone] Evaluation + Plan note* Assessment & Plan Note - Jasmine Mathias MD - 05/14/2024 10:00 AM ESTAssociated Problem(s): Primary generalized (osteo)arthritis Orders: Follow Up In Primary Care - Medicare Annual CBC and Auto Differential; Future Comprehensive Metabolic Panel; Future Lipid Panel; Future TSH with reflex to Free T4 if abnormal; Future Vitamin B12; Future [facility] Work Phone: [phone] Evaluation + Plan note* Assessment & Plan Note - Jasmine Mathias MD - 05/14/2024 10:00 AM ESTAssociated Problem(s): Rheumatoid arthritis Orders: Follow Up In Primary Care - Medicare Annual CBC and Auto Differential; Future Comprehensive Metabolic Panel; Future Lipid Panel; Future TSH with reflex to Free T4 if abnormal; Future Vitamin B12; Future [facility] Work Phone: [phone] Evaluation + Plan note* Assessment & Plan Note - Jasmine Mathias MD - 05/14/2024 10:00 AM ESTAssociated Problem(s): GERD (gastroesophageal reflux disease) Orders: Follow Up In Primary Care - Medicare Annual [facility] Work Phone: [phone] 388-486202-17-2025 Evaluation + Plan note* Assessment & Plan Note - Jasmine Mathias MD - 05/14/2024 10:00 AM ESTAssociated Problem(s): Edema Orders: Follow Up In Primary Care - Medicare Annual furosemide (Lasix) 20 mg tablet; Take 1 tablet (20 mg) by mouth once daily. [facility] Work Phone: [phone] Evaluation + Plan note* Assessment & Plan Note - Jasmine Mathias MD - 05/14/2024 10:00 AM ESTAssociated Problem(s): Class 2 severe obesity with serious comorbidity and body mass index (BMI) of35.0 to 35.9 in adult Orders: Follow Up In Primary Care - Medicare Annual [facility] Work Phone: [phone] 545-626702-17-2025 History of Present illness Narrative* Jasmine Mathias [...] (Dr Chisholm), precancerous lesions on legs ([facility] [employer] [employer] [place]) - all stable. She states that overall she is doing pretty well. She was seen in [facility] last week and was treated for bronchitis [...] Medicine) Jasmine Mathias MD as PCP - [facility] Attributed Provider Bryan Luz MD as Surgeon (Neurosurgery) Della You RN as Diamond Expert (Case Management) Objective Vitals: BP 122/74 Pulse [...] bilateral screening tomosynthesis; Future documented in this encounterSt. [facility] Work Phone: [phone] Instructions* Patient Instructions* Jasmine Mathias MD - 05/14/2024 10:00 AM EST Continue current medications. Follow up with specialists as scheduled. Follow up in 6 months, sooner if needed. documented in this encounterSt[facility] Work Phone: [phone] Miscellaneous Notes* Assessment & Plan Note - [...] Care - Medicare Annual documented in this [facility] Work Phone: [phone] History of Present illness Narrative* Nena Aguilar APRN-[employer]ACHINE - 05/07/2024 9:20 AM EST 73 y.o. [...] Review Audit Reviewed by Kathryn Up MA ([employer]) on 05/07/24 at 0921 Medication Order Taking? Sig Documenting Provider Last Dose Status acetaminophen (Tylenol 8 HOUR) 650 mg ER tablet [id number] Yes Take 1 tablet (650 mg) by mouth every8 hours if needed for mild pain (1 - 3). Do not crush, chew, or split. Historical Provider, Taking Active albuterol 90 mcg/actuation inhaler [id number] Inhale 1-2 puffs every 4 hours if needed for wheezing or shortness of breath. Patient not taking: Reported on 05/07/2024 Shweta Brar APRN-[employer]ACHINE Active ALPRAZolam (Xanax) 0.25 mg tablet [id number] Yes Take 1 tablet (0.25 mg) by mouth 2 times a day as needed for anxiety. Jasmine Mathias MD Taking Active atorvastatin (Lipitor) 20 mg tablet [id number] Yes TAKE 1 TABLET EVERY DAY Jasmine Mathias MDActive benzonatate (Tessalon) 100 mg capsule [id number] Take 1-2 capsules (100-200 mg) by mouth every 8 hours if needed for cough. Do not crush or chew. Patient not taking: Reported on 05/07/2024 Jasmine Mathias MD Active cyclobenzaprine (Flexeril) 10 mg tablet [id number] Yes Take 1 tablet (10 mg) by mouth 3 times a day as needed for muscle spasms. Jasmine Mathias MD Taking Active diazePAM (Valium) 5 mg tablet [id number] Take 1 tablet (5 mg) by mouth 1 time for 1 dose. One hour before procedure. NEEDS A FIELD GEOLOGIST TO AND FROM PROCEDURE Mauricio Mancilla PA-C 04/11/24 2359 ferrous sulfate 325 (65 Fe) MG EC tablet [id number] Yes Take 1 tablet by mouth every other day. Everyother day Historical Provider, Taking Active folic acid (Folvite) 1 mg tablet [id number] Yes As directed by Dr Chisholm Historical Provider, Taking Active furosemide (Lasix) 20 mg tablet [id number] Yes Take 1 tablet (20 mg) by mouth once daily. Jasmine Mathias MD Taking Active lisinopril 5 mg tablet [id number] Yes TAKE 1 TABLET EVERY DAY Jasmine Mathias MD Active meloxicam (Mobic) 15 mg tablet [id number] Yes Take 1 tablet (15 mg) by mouth once daily. Jasmine Hernandez MD Taking Active methotrexate (Trexall) 2.5 mg tablet [id number] Yes Take 8 tablets (20 mg total) by mouth 1 (one) time per week. Follow directions carefully, and ask to explain any part you do not understand. Take exactly as directed. Kilo Dietz, Taking Active nortriptyline (Pamelor) 25 mg capsule [id number] Yes TAKE 2 CAPSULES ONE TIME DAILY AT BEDTIME Jasmine Mathias MD Taking Active omeprazole (PriLOSEC) [address] capsule [id number] Yes TAKE 1 CAPSULE ONE TIME DAILY Jasmine Mathias MD Taking Active pregabalin (Lyrica) 225 mg capsule [id number] Yes Take 1 capsule (225 mg) by mouth 2 times a day. Mauricio Mancilla PA-C Active traMADol (Ultram) 50 mg tablet [id number] Yes Take 1 tablet (50 mg) by [...] Narendra's care are: none Nena Aguilar CNP [facility] [phone] documented in [facility] encounterSt[facility] Work Phone: [phone] History of Present illness Narrative* Mauricio Mancilla [...] COMPARISON: Lumbar spine MRI 07/14/2018 ACCESSION NUMBER(S): [id number] ORDERING CLINICIAN: MAURICIO MANCILLA TECHNIQUE: Multiplanar multisequence [...] of the spinal canal and bilateral foramina, [id number]. Crowding of the cauda equina nerve roots [...] Damari Gibson 07/27/2023 10:41 AM Dictation workstation: [id number] Assessment/Plan Diagnoses and all orders for this visit: Lumbosacral radiculopathy - diazePAM (Valium) 5 mg tablet; Take 1 tablet (5 mg) by mouth 1 time for 1 dose. One hour before procedure. NEEDS A FIELD GEOLOGIST TO AND FROM PROCEDURE - pregabalin (Lyrica) [...] Follow-up as above mentioned. documented in this [facility] Work Phone: [phone]) 352-139501-08-2025 Angle Arguelles 1950 CC: 73 y.o. is [...] length of time. She is cleaning her oriental orthodox and has to take frequent breaks while [...] Disp: , Rfl: naloxone (NARCAN) 4 mg/actuation [place], Administer 1 spray into one nostril for [...] joint left; Surgeon: Roderick Jeter DPM; Location: [facility]; Service: Podiatry ARTHROSCOPY KNEE Left BACK SURGERY CHOLECYSTECTOMY COLONOSCOPY 01/28/2015 EGD N/A 12/21/2021 Procedure: ESOPHAGOGASTRODUODENOSCOPY WITH BIOPSY AND BALLOON DILATION.; Surgeon: Delvis Moncada MD; Location: [facility]; Service: General Surgery ESOPHAGEAL MANOMETRY 08/16/2017 ESOPHAGOGASTRODUODENOSCOPY [...] ROBOTIC XI; Surgeon: Delvis Moncada MD; Location: [facility] OR; Service: Gen-Robotics OPEN REDUCTION INTERNAL FIXATION FOOT Left 01/05/2023 Procedure: OPEN REDUCTION INTERNAL pin fixation of dislocated 2nd hammer toe left; Surgeon: Dionne Jeter (more content not included)...[facility]01-08-2025 History of Present illness Narrative* Jordan Espinoza, GR[employer]ITE POLISHER MACHINE - 04/04/2024 4:00 PM EST Narendra Arguelles [...] length of time. She is cleaning her oriental orthodox and has to take frequent breaks while [...] Disp: , Rfl: naloxone (NARCAN) 4 mg/actuation [place], Administer 1 spray into one nostril for [...] PHALANGEal joint left; Surgeon: Roderick Jeter DPM;Location: [facility]; Service: Podiatry ARTHROSCOPY KNEE Left BACK SURGERY CHOLECYSTECTOMY COLONOSCOPY 01/28/2015 EGD N/A 12/21/2021 Procedure: ESOPHAGOGASTRODUODENOSCOPY WITH BIOPSY AND BALLOON DILATION.; Surgeon: Delvis Moncada MD; Location: [facility]; Service: General Surgery ESOPHAGEAL MANOMETRY 08/16/2017 ESOPHAGOGASTRODUODENOSCOPY [...] ROBOTIC XI; Surgeon: Delvis Moncada MD; Location: [facility] OR; Service: Gen-Robotics OPEN REDUCTION INTERNAL FIXATION FOOT Left 01/05/2023 Procedure: OPEN REDUCTION INTERNAL pin fixation of dislocated 2nd hammer toe left; Surgeon: Roderick Jeter DPM; Location: [facility]; Service: Podiatry POSTERIOR REPAIR OF RECTOCELE [...] Food Insecurity: Low Risk (03/05/2024) Received from [facility] Food Security Within the past 12 months, the food you bought just didn't last and you didn't have money to get more.: 3 Within the past 12 months, you worried that your food would run out before you got money to buy more.: 3 Transportation Needs: Not At Risk (03/06/2024) Received from [facility] Transportation Needs In the past 12 months, has lack of reliable transportation kept you from medical appointments, meetings, work or from getting things needed for daily living?: No Housing Stability: Not At Risk (03/05/2024) Received from [facility] Housing What is your living situation today?: [...] Pain Medicine Follow Up: documented in this [id number] History of Present illness Narrative* Jasmine Mathias [...] [facility]. The main problem requiring admission was syncopal episode. The discharge summary and/or Transitional Care Management documentation was reviewed. Medication reconciliation was performed as indicated via the [place] as Reviewed timestamp. Narendra Arguelles was contacted by Transitional Care Management services two days after her discharge. This encounter and supporting documentation was reviewed. Here for follow up recent hospitalization in [place] for syncopal episode with some right sided [...] type - Primary R55 [facility]: 1(783) 183-828712-16-2024 Instructions* Patient Instructions* Jasmine Mathias MD - 03/12/2024 11:00 AM EST Will continue current medications and monitor, as she is feeling better no further testing at this time. documented in this [facility]St[facility] Work Phone: 1([phone]) 999-897711-22-2024 History of Present illness Narrative* Emiliano Rocha - 02/17/2024 8:30 AM EST Nurse Note: Review of Systems Cardiovascular: Negative for chest pain and palpitations. Gastrointestinal: Negative for nausea and vomiting. Musculoskeletal: Positive for back pain and neck pain. Neurological: Positive for numbness (a little in fingers- not bad. Muscle Back Pain. Spine is squeezed off). Nursing Assessment: Physical Exam * Mary Caremn Tovar MD - 02/17/2024 8:30 AM EST [...] -2.2. Patient suffered a foot fracture 2022, construction manager said her bones appeared to be very [...] palpable abnormality is noted. documented in this [facility]11-04-2024 History of Present illness Narrative* Florencia Hwang [...] tablet Jasmine Mathias MD documented in this encounterSt[facility] Work Phone: [phone]) 540-170511-04-2024 Instructions* Patient Instructions* Jasmine Mathias MD - [...] on results and symptoms. documented in this encounterSt. [facility] Work Phone: 1([phone]) 903-679210-04-2024 History of Present illness Narrative* ELIZABETH Izaguirre - 12/30/2023 10:00 AM EDT [facility] ELIZABETH Izaguirre Visit Note - 12/30/2023 10:09 AM This note was generated with voice recognition software and may contain errors including spelling, grammar, syntax, and misrecognization of what was dictated. Patient: Narendra Arguelles, , 73 y.o., female PCP: Jasmine Mathias [...] cough syrup without much relief; no other qhyn-kou-ukobngk medications or home remedies for symptom management. [...] Musculoskeletal: Grossly normal; appropriate for age. Integumentary: [place], warm, dry, and intact. No rashes or [...] answered. Shweta Brar APRN-BRIAN Advanced Practice Provider [facility] documented in this [facility] Work Phone: 1([phone]) 362-236910-01-2024 History of Present illness Narrative* Florencia Hwang [...] views Jasmine Mathias MD [facility] Phone: 1([phone]) 882-365810-01-2024 Instructions* Patient Instructions* Jasmine Mathias MD - 12/27/2023 3:20 PM EDT Will get Xrays, start muscle relaxer - cautioned about potential drowsiness with that, start prednisone 20 mg daily for 5 days - she states that she has some at home. Follow up based on results and symptoms. documented in this [facility]St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 She will follow-up with me in 3 months. Bryan Luz MD Senior Cisco Network Engineer of Neurosurgery [facility] Spine [place] [facility] Neuroscience ICU Office: [phone] Scribe Attestation By signing my name below, I, Vidhya Ortiz, Marlo attest that this documentation has been prepared under the direction and in the presence of MD Ruby. documented in this [facility] Work Phone: 1(858) 365-712208-22-2024 History of Present illness Narrative* Mauricio Mancilla [...] relief. She saw a surgeon at the [facility]. She states that because of her bone density surgery was not recommended yet. They wanted another bone density but she is not scheduled for this until January. She also wonders about getting a second opinion. She states that she spoke to her license issuer a lot about this and she thinks [...] COMPARISON: Lumbar spine MRI 07/14/2018 ACCESSION NUMBER(S): [id number] ORDERING CLINICIAN: MAURICIO MANCILLA TECHNIQUE: Multiplanar multisequence [...] of the spinal canal and bilateral foramina, nnlmf-kjkitcv-pibh-left. Crowding of the cauda equina nerve roots [...] Damari Gibson 07/27/2023 10:41 AM Dictation workstation: [id number] Assessment/Plan Diagnoses and all orders for this [...] our services. OARRS reviewed. documented in this [facility] Work Phone: [phone]) 514-865908-15-2024 History of Present illness Narrative* Florencia Hwang MA - 11/10/2023 9:00 AM EDT Subjective Patient ID: Narendra Arguelles is a 73 y.o. female who presents for 6 month check up. Labs completed.Need refills on Xanax, Furosemide, Tramadol, Meloxicam (Tramadol, Xanax goes to [facility] and the rest to [facility]) HPI Review of Systems Objective There were no vitals taken for this visit. Physical Exam Assessment/Plan * Jasmine Mathias MD - 11/10/2023 9:00 AM EDT Subjective Narendra Arguelles is a 73 y.o. female who presents for No chief complaint on file.. Here for f/u HTN, high chol, GERD (Dr Moncada), osteoporosis, anxiety, chronic pain, rheumatoid arthritis (Dr Chisholm), precancerous lesions on legs ([facility] [place]). She is under a lot of stress [...] LEUKOCYTES (10*3/UL) IN BLOOD BY AUTOMATED COUNT, EMIRATI 4.4 - 11.3 x10*3/uL 6.6 nRBC 0.0 - 0.0 /100 WBCs 0.0 ERYTHROCYTES (10*6/UL) IN BLOOD BY AUTOMATED COUNT, EMIRATI 4.00 - 5.20 x10*6/uL 3.65 (L) HEMOGLOBIN 12.0 - 16.0 g/dL 11.1 (L) HEMATOCRIT 36.0 - 46.0 % 36.5 MCV 80 - 100 fL 100 MCH 26.0 - 34.0 pg 30.4 MCHC 32.0 - 36.0 g/dL 30.4 (L) RED CELL DISTRIBUTION WIDTH 11.5 - 14.5 % 15.4 (H) PLATELETS (10*3/UL) IN BLOOD AUTOMATED COUNT, EMIRATI 150 - 450 x10*3/uL 326 NEUTROPHILS/100 LEUKOCYTES IN BLOOD BY AUTOMATED COUNT, EMIRATI 40.0 - 80.0 % 65.8 Immature Granulocytes %, Automated 0.0 - 0.9 % 1.8 (H) Lymphocytes % 13.0 - 44.0 % 19.3 Monocytes % 2.0 - 10.0 % 6.8 Eosinophils % 0.0 - 6.0 % 5.5 Basophils % 0.0 - 2.0 % 0.8 NEUTROPHILS (10*3/UL) IN BLOOD BY AUTOMATED COUNT, EMIRATI 1.60 - 5.50 x10*3/uL 4.33 Immature Granulocytes [...] deficiency Jasmine Mathias MD documented in this encounterSt. [facility] Work Phone: [phone] Instructions* Patient Instructions* Jasmine Mathias MD - 11/10/2023 9:00 AM EDT Continue current medications. Follow up with specialists as scheduled. Follow up in 6 months, sooner if needed. documented in this encounterSt. [facility] Work Phone: [phone]) [phone] History of Present illness Narrative* Mauricio Mancilla [...] THE DAY,PAIN SCORE 7/10, FABIANO=58%,SOAPP= La Christianson, MANAGER SCHEDULING 09/22/23 12:50 PM Patient is a 72-year-old [...] COMPARISON: Lumbar spine MRI 07/14/2018 ACCESSION NUMBER(S): [id number] ORDERING CLINICIAN: MAURICIO MANCILLA TECHNIQUE: Multiplanar multisequence [...] of the spinal canal and bilateral foramina, lpxhz-kjmobos-ebjt-left. Crowding of the cauda equina nerve roots [...] Damari Gibson 07/27/2023 10:41 AM Dictation workstation: [id number] Assessment/Plan Diagnoses and all orders for this [...] clinic sooner if necessary. documented in this [facility] Work Phone: [phone]) [phone] Miscellaneous Notes* Perioperative Nursing Note - Yasemin Grove RN - 08/26/2023 1:50 PM EDT Wheeled to discharge elevator via w/c; Driven home by jarrettGregg mckee. * Op Note - Smith Estrada DO - 08/26/2023 12:55 PM EDT * No procedures listed * Operative Note Date: 08/26/2023 OR Location: [place] [address] OR Name: Narendra Arguelles, : 1950, Age: 72 y.o., , Sex: female Diagnosis * No Diagnosis Codes entered * * No Diagnosis Codes entered * Procedures * No procedures documented on diagnosis form * Surgeons * No surgeons found in log * Resident/Fellow/Other Ux Visual Designer: * No surgeons found in log * Procedure Summary Anesthesia: * No anesthesia type entered * ASA: ASA status not filed in the log. Anesthesia Staff: No anesthesia staff entered. Estimated Blood Loss: 0mL Intra-op Medications: * Intraprocedure medication information is unavailable because the case startand end events have not been set * Intraprocedure I/O Totals None Specimen: No specimens collected Staff: Handcrew Foreman: Isabella Handcrew Foreman: Torsten Gonzales Person: Kathryn Handcrew Foreman: Camilo Drains and/or Catheters: * None in [...] *No primary surgeon found* documented in this [facility] Work Phone: [phone] Note* Perioperative Nursing Note - Yasemin Grove RN - 08/26/2023 1:50 PM EDT Wheeled to discharge elevator via w/c; Driven home by jarretterGregg. [facility] Attending History and physical note * [...] pain gets sharp and very hard to picking machine operator helper her legs due to the pain. She [...] throughout the day. It is hard to picking machine operator helper her legs. They feel weak and heavy. [...] COMPARISON: Lumbar spine MRI 07/14/2018 ACCESSION NUMBER(S): [id number] ORDERING CLINICIAN: MAURICIO MANCILLA TECHNIQUE: Multiplanar multisequence [...] of the spinal canal and bilateral foramina, nsioz-ddifvwt-swuf-left. Crowding of the cauda equina nerve roots [...] Damari Gibson 07/27/2023 10:41 AM Dictation workstation: [id number] Assessment/Plan Diagnoses and all orders for this [...] interim should she require anything from us. [facility] Work Phone: 1([phone]) 460-475205-31-2024 History and physical note* Smith Estrada DO - 08/26/2023 12:55 PM EDT H&P reviewed. The patient was examined and there are no changes to the H&P. Source Note - Mauricio Mancilla PA-C - 08/09/2023 8:00 AM EDT Subjective Patient ID: Narenrda Arguelles is a 72 y.o. female who presents for Back Pain (FUV MRI results. Todayshe is having pain in her bilat lower back that goes into her bilat legs in the side and front downto her feet rates her pain score 9-10/10, and describes as a muscle cramp/ache at rest and pain gets sharp and very hard to picking machine operator helper her legs due to the pain. She [...] throughout the day. It is hard to picking machine operator helper her legs. They feel weak and heavy. [...] COMPARISON: Lumbar spine MRI 07/14/2018 ACCESSION NUMBER(S): [id number] ORDERING CLINICIAN: MAURICIO MANCILLA TECHNIQUE: Multiplanar multisequence [...] of the spinal canal and bilateral foramina, ptfpx-vbrkefi-llfv-left. Crowding of the cauda equina nerve roots [...] Damari Gibson 07/27/2023 10:41 AM Dictation workstation: [id number] Assessment/Plan Diagnoses and all orders for this [...] require anything from us. documented in this [facility] Work Phone: [phone] Note* Op Note - Smith Estrada DO - 08/26/2023 12:55 PM EDT * No procedures listed * Operative Note Date: 08/26/2023 OR Location: [place] [address] OR Name: Narendra Arguelles, : 1950, Age: 72 y.o., , Sex: female Diagnosis * No Diagnosis Codes entered * * No Diagnosis Codes entered * Procedures * No procedures documented on diagnosis form * Surgeons * No surgeons found in log * Resident/Fellow/Other Ux Visual Designer: * No surgeons found in log * Procedure Summary Anesthesia: * No anesthesia type entered * ASA: ASA status not filed in the log. Anesthesia Staff: No anesthesia staff entered. Estimated Blood Loss: 0mL Intra-op Medications: * Intraprocedure medication information is unavailable because the case startand end events have not been set * Intraprocedure I/O Totals None Specimen: No specimens collected Staff: Handcrew Foreman: Isabella Handcrew Foreman: Torsten Gonzales Person: Kathryn Handcrew Foreman: Camilo Drains and/or Catheters: * None in [...] Details: Attending Attestation: *No primary surgeon found* [facility] Work Phone: [phone]) 633-425805-20-2024 History of Present illness Narrative* Florencia Hwang [...] tablet Jasmine Mathias MD documented in this encounterSt. [facility] Work Phone: [phone] 509-817505-20-2024 Instructions* Patient Instructions* Jasmine Mathias MD - 08/15/2023 2:20 PM EDT Will treat with Zpak. Follow up if no improvement or if she worsens. documented in this encounterSt. [facility] Work Phone: [phone]) 174-330805-14-2024 History of Present illness Narrative* Mauricio Mancilla [...] pain gets sharp and very hard to picking machine operator helper her legs due to the pain. She [...] throughout the day. It is hard to picking machine operator helper her legs. They feel weak and heavy. [...] Signed by Signed Time Phone Pager Damari Gbison MD 07/27/2023 10:41 Exam Information Status Exam Begun Exam Ended Final 07/27/2023 07:15 07/27/2023 07:50 Study Result Narrative & Impression Interpreted By: Damari Gibson, STUDY: MR LUMBAR SPINE WO IV CONTRAST INDICATION: Signs/Symptoms:lower back and leg pain and legt fatigue. H/O fusion COMPARISON: Lumbar spine MRI 07/14/2018 ACCESSION NUMBER(S): [id number] ORDERING CLINICIAN: MAURICIO MANCILLA TECHNIQUE: Multiplanar multisequence [...] of the spinal canal and bilateral foramina, hrhoh-rqjjhcy-ibgm-left. Crowding of the cauda equina nerve roots [...] Damari Gibson 07/27/2023 10:41 AM Dictation workstation: [id number] Assessment/Plan Diagnoses and all orders for this [...] require anything from us. documented in this encounterSt. [facility] Work Phone: [phone] Instructions* Patient Instructions* Marva Delong RN - 08/09/2023 8:00 AM EDT Injection education completed written and verbally. documented in this encounterSt. [facility] Work Phone: [phone]) 561-577404-30-2024 History of Present illness Narrative* Mauricio Mancilla [...] need a RF on GPN send to [facility]. Chula Silverman RN 07/26/23 8:08 AM [...] to. She has trialed a multitude of lryk-oay-clekqwc medications without improvement. At this time, she rates her lower back and leg pain an 8/10. Her neck pain is a 5/10. She is here today to discuss her lower back and leg pain as well as leg fatigue. She states that it is hard to picking machine operator helper her legs. They feel weak and heavy. [...] Phone Pager Anshul Flood MD 05/01/2020 17:47 [id number] Exam Information Status Exam Begun Exam Ended Final 04/29/2020 14:45 04/29/2020 14:57 Study Result Narrative & Impression Patient Name: NARENDRA ARGUELLES STUDY: SPINE, LUMBOSACRAL CMPLT(BENDING); 04/29/2020 2:57 pm INDICATION: pain. COMPARISON: 11/01/2018 ACCESSION NUMBER(S): [id number] ORDERING CLINICIAN: NIRAV ALCANTAR FINDINGS: Multiple views [...] COMPARISON: Cervical spine radiograph 11/11/2022. ACCESSION NUMBER(S): [id number] ORDERING CLINICIAN: MAURICIO MANCILLA TECHNIQUE: Multiplanar multisequence [...] has had a fall because she cannot picking machine operator helper her legs. At this time I would [...] clinic sooner if necessary. documented in this [facility] Work Phone: 1([phone]) 167-800402-16-2024 History of Present illness Narrative* Florencia Hwang [...] (Dr Chisholm), precancerous lesions on legs ([facility] [employer] [place]) - all stable. She states that overall [...] General Jasmine Mathias MD as PCP - [facility] Attributed Provider Objective Vitals: BP 122/76 [...] In Primary Care - Established Rheumatoid arthritis ([facility]/HCC) Relevant Orders CBC and Auto Differential Comprehensive Metabolic Panel Lipid Panel TSH with reflex to Free T4 if abnormal Vitamin B12 Vitamin D 25-Hydroxy,Total (for eval of Vitamin D levels) Follow Up In Primary Care - Established Class 2 severe obesity with serious comorbidity and body mass index (BMI) of 35.0 to 35.9 in adult ([facility]) Relevant Orders Follow Up In Primary Care [...] of Vitamin D levels) documented in this encounterSt. [facility] Work Phone: [phone]) [phone] History of Present illness Narrative* Roderick Jeter [...] C) (Infrared) Laboratory and Additional Data Reviewed: Reviewed:[id number]} XR Foot Left 3+ Views (Standard) X-rays 3 views left foot: There is a completely fused first metatarsal phalangeal joint and a second proximal interphalangeal joint pseudo arthrodesis. There is significant degenerative arthritis of the tarsometatarsal joints which appears to be stable without change since x-rays earlier in the fall. documented in this [id number] History of Present illness Narrative* Roderick Jeter [...] C) (Infrared) Laboratory and Additional Data Reviewed: Reviewed:[id number]} XR Foot Left 3+ Views (Standard) Xray 3 views left foot- the 1st metatarsal phalangeal joint fusion is 85 healed. The 2nd toe proximal interphalangeal joint fusion is about 50% healed. 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 documented in this [id number] History of Present illness Narrative* Mauricio Mancilla [...] pain. She has trialed a multitude of zgnp-jaz-njpalxm medications without improvement. She rates her discomfort [...] COMPARISON: Cervical spine radiograph 11/11/2022. ACCESSION NUMBER(S): [id number] ORDERING CLINICIAN: MAURICIO MANCILLA TECHNIQUE: Multiplanar multisequence [...] will follow-up as above-mentioned. documented in this [facility] Work Phone: [phone] Miscellaneous Notes* Perioperative Nursing Note - Yasemin Grove RN - 03/04/2023 11:26 AM EST Taken to discharge elevator via w/c; driven home by brotherGregg. * Op Note - Matt Lombardo MD - 03/04/2023 10:10 AM EST * No procedures listed * Operative Note Date: 03/04/2023 OR Location: [place] [address] OR Name: Narendra Arguelles, : 1950, Age: 72 y.o., , Sex: female Diagnosis Cervical radiculopathy Procedures C7-T1 intralaminar cervical epidural steroid injection Surgeons Matt WISEMAN Resident/Fellow/Other Ux Visual Designer: * No surgeons found in log * Procedure Summary Anesthesia: Local ASA: ASA status not filed in the log. Anesthesia Staff: Anesthesiologist: Matt Lombardo MD Estimated Blood Loss: 0 mL Intra-op Medications: * Intraprocedure medication information is unavailable because the case startand end events have not been set * Intraprocedure I/O Totals None Specimen: No specimens collected Staff: Handcrew Foreman: Manjula Dick RN Scrub Person: Monica Mckeon [...] *No primary surgeon found* documented in this encounterSt. [facility] Work Phone: [phone] Note* Perioperative Nursing Note - Yasemin Grove RN - 03/04/2023 11:26 AM EST Taken to discharge elevator via w/c; driven home by Gregg neil. [facility]12-08-2023 Note* Perioperative Nursing Note - Yasemin Grove RN - 03/04/2023 11:26 AM EST Taken to discharge elevator via w/c; driven home by Gregg neil. [facility] History and physical note* Matt Lombardo [...] document was dictated and electronically signed using [employer] software. A reasonable attempt at proof reading was made to minimize errors. Please call with any questions. Matt Lombardo MD [facility] Work Phone: [phone]) 571-687712-08-2023 History and physical note* Matt Lombardo MD [...] document was dictated and electronically signed using [employer] software. A reasonable attempt at proof reading was made to minimize errors. Please call with any questions. Matt Lombardo MD documented in this [facility] Work Phone: [phone] 546-697812-08-2023 Note* Op Note - Matt Lombardo MD - 03/04/2023 10:10 AM EST * No procedures listed * Operative Note Date: 03/04/2023 OR Location: [facility] OR Name: Narendra Arguelles, : 1950, Age: 72 y.o., , Sex: female Diagnosis Cervical radiculopathy Procedures C7-T1 intralaminar cervical epidural steroid injection Surgeons Matt Lombardo IIIMD Resident/Fellow/Other Ux Visual Designer: * No surgeons found in log * Procedure Summary Anesthesia: Local ASA: ASA status not filed in the log. Anesthesia Staff: Anesthesiologist: Matt Lombardo MD Estimated Blood Loss: 0 mL Intra-op Medications: * Intraprocedure medication information is unavailable because the case startand end events have not been set * Intraprocedure I/O Totals None Specimen: No specimens collected Staff: Handcrew Foreman: Manjula Dick RN Scrub Person: Monica Mckeon [...] N/A Attending Attestation: *No primary surgeon found* [facility] Work Phone: [phone] Note* Op Note - Matt Lombardo MD - 03/04/2023 10:10 AM EST * No procedures listed * Operative Note Date: 03/04/2023 OR Location: [place] [address] OR Name: Narendra Arguelles, : 1950, Age: 72 y.o., , Sex: female Diagnosis Cervical radiculopathy Procedures C7-T1 intralaminar cervical epidural steroid injection Surgeons Matt Lombardo IIIMD Resident/Fellow/Other Ux Visual Designer: * No surgeons found in log * Procedure Summary Anesthesia: Local ASA: ASA status not filed in the log. Anesthesia Staff: Anesthesiologist: Matt Lombardo MD Estimated Blood Loss: 0 mL Intra-op Medications: * Intraprocedure medication information is unavailable because the case startand end events have not been set * Intraprocedure I/O Totals None Specimen: No specimens collected Staff: Handcrew Foreman: Manjula Dick RN Scrub Person: Monica Mckeon [...] N/A Attending Attestation: *No primary surgeon found* [facility] Work Phone: 1([phone]) [phone] History of Present illness Narrative* Roderick Jeter [...] C) (Infrared) Laboratory and Additional Data Reviewed: Reviewed:[id number]} XR Foot Left 3+ Views (Standard) Xray 3 views left foot- the 1st metatarsal phalangeal joint fusion is 85 healed. The 2nd toe proximal interphalangeal joint fusion is about 50% healed. 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 documented in this [id number] Note* Addendum Note - Roderick Jeter DPM - 02/03/2023 2:41 PM ESTAddended by: RODERICK JETER on: 02/03/2023 02:41 PM Modules accepted: Orders [id number] Note* Addendum Note - Roderick Jeter DPM - 02/03/2023 2:41 PM ESTAddended by: RODERICK JETER on: 02/03/2023 02:41 PM Modules accepted: Orders [id number] Miscellaneous Notes* Addendum Note - Roderick Jeter DPM - 02/03/2023 2:41 PM ESTAddended by: RODERICK JETER on: 02/03/2023 02:41 PM Modules accepted: Orders documented in this [id number] History of Present illness Narrative* Roderick Jeter [...] C) (Infrared) Laboratory and Additional Data Reviewed: Reviewed:[id number]} XR Foot Left 3+ Views (Standard) Xray 3 views left foot- there is an arthrodesis 2nd proximal interphalangeal joint and 1st Metatarsal phalangeal joint with internal fixation. There is degenerative arthritis of the tarsal metatarsal joint with dorsal spur documented in this [id number] History of Present illness Narrative* Cintia Miller [...] Patient suffered a foot fracture last month, construction manager said her bones appeared to be very [...] palpable abnormality is noted. [facility] History of Present illness Narrative* Mauricio Mancilla [...] improvement. She has trialed a multitude of cqbm-akv-hgyoojj medications without improvement. She currently rates her [...] COMPARISON: Cervical spine radiograph 11/11/2022. ACCESSION NUMBER(S): [id number] ORDERING CLINICIAN: MAURICIO MANCILLA TECHNIQUE: Multiplanar multisequence [...] clinic sooner if necessary. documented in this encounterSt. [facility] Work Phone: [phone] Instructions* Patient Instructions* Marva Delong RN - 01/25/2023 9:15 AM EDT Injection education completed written and verbally. documented in this encounterSt. [facility] Work Phone: 1([phone]) [phone] History of Present illness Narrative* Roderick Jeter [...] C) (Infrared) Laboratory and Additional Data Reviewed: Reviewed:[id number]} XR Foot Left 3+ Views (Standard) Xray 3 view left foot - there is a healing 1st MPJ and 2nd PIPJ fusions with hardware . documented in this [id number] History of Present illness Narrative* Roderick Jeter [...] C) (Temporal) Laboratory and Additional Data Reviewed: Reviewed:[id number]} XR Foot Left 3+ Views (Standard) Xray 3 views left - there is a 1st MPJ is fused with plate and screw fixation. There is 2nd toe arthrodesis with relocation of the toe with pin fixation documented in this [id number] History of Present illness Narrative* Roderick Jeter [...] BALLOON DILATION.; Surgeon: Delvis Moncada MD; Location: [facility]; Service: General Surgery ESOPHAGEAL MANOMETRY 08/16/2017 ESOPHAGOGASTRODUODENOSCOPY [...] 01/03/23 12:14 PM: Medications documented in this [id number] History of Present illness Narrative* Roderick Jeter [...] first 3 toes. She went to the [facility] where x-rays were performed and was [...] C) (Infrared) Laboratory and Additional Data Reviewed: Reviewed:[id number]} ECG 12 Lead Normal sinus rhythm Normal ECG Confirmed by Gage Martinez MD ([id number]) on 02/16/2022 11:19:20 AM documented in this [id number] Emergency department Note* Jasmine Mccormick PA-C - [...] hitting head or LOC. documented in this [facility] Work Phone: 1(558) 282-863310-01-2023 Emergency department Triage note* Molly Rucker RN - 12/26/2022 3:15 PM EDT Pt states that she was walking into her house in her slippers when she tripped and landed on her left foot incorrectly. Pt rates pain 10/10. Denies hitting head or LOC. [facility] Work Phone: 1([phone]) 829-724610-01-2023 Physician Emergency department Note* Jasmine Mccormick PA-C [...] PA-C 12/26/221823 Jasmine Mccormick PA-C 12/26/[address] [facility] Work Phone: [phone] History of Present illness Narrative* On a [...] here today to discuss different options. -[facility] Work Phone: [phone] History of Present illness Narrative* Yanely Jones [...] tablet Ana Estrada MD [facility] Phone: [phone] Instructions* Patient Instructions* Ana Estrada MD - 12/08/2022 1:20 PM EDT I think this is allergies or viral, I do not think an antibiotic will help you. Add flonase otc to your allergy pill . If persists or worsens as we discussed fill the antibiotic. Call concerns . documented in this encounterSt[facility] Work Phone: [phone] History of Present illness Narrative* Florencia Hwang [...] (Dr Chisholm), precancerous lesions on legs ([facility] [place]) - all stable. She states that overall [...] views Jasmine Mathias MD documented in this [facility] Work Phone: [phone] Instructions* Patient Instructions* Jasmine Mathias MD - 11/10/2022 10:00 AM EDT Continue current medications. Follow up with specialists as scheduled. Follow up in 6 months, sooner if needed. documented in this [facility] Work Phone: [phone] 285-759707-06-2023 History of Present illness Narrative* Florencia Hwang [...] gradually got worse and she went to [facility] on Tuesday and they sent her to [...] tablet Jasmine Mathias MD documented in this [facility]St[facility] Work Phone: [phone] History of Present illness Narrative* Delvis Moncada MD - 04/07/2022 8:59 AM EST [facility] PATIENT: Narendra Marcelino Patel DATE / TIME: [...] tolerated Follow-up as needed documented in this [id number] History of Present illness Narrative* Maira Hamilton CNP - 03/02/2022 8:33 AM EST [facility] PATIENT: Narendra Marcelino Patel DATE / TIME: [...] revision of Rosalva fundoplication PLAN: Diet per [facility] protocol Continue lifting restrictions [place] removed Follow up with Dr. Moncada in 4 weeks documented in this [id number] History of Present illness Narrative* Delvis Moncada MD - 01/21/2022 11:23 AM EDT [facility] [address] ([address]) [facility] [address] [facility] [address] Narendra Arguelles is a 71 y.o. [...] BALLOON DILATION.; Surgeon: Delvis Moncada MD; Location: [facility]; Service: General Surgery ESOPHAGEAL MANOMETRY 08/16/2017 ESOPHAGOGASTRODUODENOSCOPY 01/28/2017 Dr. Cabrera ESOPHAGOGASTRODUODENOSCOPY 08/16/2017 with biopsies...Dr. Moncada ESOPHAGOGASTRODUODENOSCOPY 11/15/2017 WATS 3D brush biopsy, Type 3 hernia....Dr Moncada foot spurs HERNIA REPAIR HIATAL LAPAROSCOPIC 03/13/2018 [place] HIP FRACTURE SURGERY Right Dr Hernádnez HYSTERECTOMY with BSO LUMBAR FUSION MANDIBLE SURGERY [...] consent. Delvis Moncada MD documented in this [id number] History of Present illness Narrative* Emiliano Rocha [...] palpable abnormality is noted. [facility] History of Present illness Narrative* Delvis Moncada MD - 11/26/2021 8:46 AM EDT [facility] [address]) [facility] [address] [facility] [address] Narendra Arguelles is a 71 y.o. female [...] diagnostic testing. She has not tried any gzns-gml-lkbgawg medications. She tells me that bread and [...] Biopsy Delvis Moncada MD documented in this [id number] History of Present illness Narrative* Nevaehdoreen Valdes [...] Podiatric Physician & Surgeon documented in this [id number] History of Present illness Narrative* Nevaeh Hartman [...] severe pain with thisinjury and went to [facility] emergency room. She reports that the x-rays [...] Podiatric Physician & Surgeon documented in this [id number] History of Present illness Narrative* On a [...] * Symptoms are better lying down. -Pain Management-[facility] Phone: evaluation note* Diagnosis Contusion of left [...] Primary Senile osteoporosis [facility] Diagnosis Hiatal hernia with GERD without esophagitis- Primary [facility] Diagnosis Encounter for surgical aftercare following surgery of digestive system- Primary [facility] Diagnosis Postoperative follow-up- Primary Follow-up examination, following unspecified surgery [facility] Diagnosis Closed fracture of one rib of right side, initial encounter- Primary documented [facility] Work Phone: Evaluation note* Diagnosis Primary hypertension- Primary Unspecified essential hypertension Neck pain Cervicalgia Anxiety Anxiety state, unspecified Chronic pain syndrome Hypercholesteremia Pure hypercholesterolemia Osteoporosis, unspecified osteoporosis type, unspecified pathological fracture presence Primary generalized (osteo)arthritis Rheumatoid arthritis involving multiple sites, unspecified whether rheumatoid factor present (CMS/[facility]) Class 1 obesity with serious comorbidity and body mass index (BMI) of 34.0 to 34.9 in adult, unspecified obesity type Gastroesophageal reflux disease without esophagitis Esophageal reflux Vitamin D deficiency documented [facility] Work Phone: Evaluation note* Diagnosis Seasonal allergies- Primary Allergic rhinitis, cause unspecified documented in this [facility] Work Phone: Evaluation note* Diagnosis Fall, initial encounter- Primary Contusion of left foot, initial encounter Osteopenia Disorder of bone and cartilage, unspecified documented in this [facility] Work Phone: Evaluation note* Diagnosis Dislocated [...] or radiculitis nos documented in this [facility] Work Phone: Evaluation note* Diagnosis Age-related osteoporosis without current pathological fracture- Primary Senile osteoporosis [facility] Diagnosis History of bunionectomy of left great toe- Primary Hammer toe of second toe of left foot [facility] Diagnosis History of bunionectomy of left great toe- Primary Hammer toe of second toe of left foot [facility] Diagnosis Cervical radiculitis Brachial neuritis or radiculitis nos documented in this [facility] Work Phone: Evaluation note* Diagnosis History [...] Other chronic pain documented in this [facility] Work Phone: Evaluation note* Diagnosis History [...] obesity type (CMS/HCC) documented in this [facility] Work Phone: Evaluation note* Diagnosis Encounter for screening mammogram for breast cancer documented in this [facility] Work Phone: Evaluation note* Diagnosis Lumbosacral [...] Other chronic pain documented in this [facility] Work Phone: Evaluation note* Diagnosis Neurogenic claudication due to lumbar spinal stenosis Spinal stenosis of lumbar region Lumbosacral radiculopathy Thoracic or lumbosacral neuritis or radiculitis, unspecified documented in this [facility] Work Phone: [phone] note* Diagnosis Lumbosacral radiculopathy- Primary Thoracic or lumbosacral neuritis or radiculitis, unspecified Neurogenic claudication due to lumbar spinal stenosis Spinal stenosis of lumbar region H/O arthrodesis Rheumatoid arthritis involving multiple sites, unspecified whether rheumatoid factor present (Multi) documented in this [facility] Work Phone: [phone] note* Diagnosis Acute sinusitis, recurrence not specified, unspecified location- Primary documented in this [facility] Work Phone: [phone] note* Diagnosis Lumbosacral radiculopathy Thoracic or lumbosacral neuritis or radiculitis, unspecified Neurogenic claudication due to lumbar spinal stenosis Spinal stenosis of lumbar region Degenerative disc disease, lumbar Other chronic pain documented in this [facility] Work Phone: [phone] note* Diagnosis Right hip pain- Primary Pain in joint, pelvic region and thigh documented in this [facility] Work Phone: [phone] note* Diagnosis Right hip pain Pain in joint, pelvic region and thigh documented in this [facility] Work Phone: [phone] note* Diagnosis Neurogenic claudication due to lumbar spinal stenosis Spinal stenosis of lumbar region Lumbosacral radiculopathy Thoracic or lumbosacral neuritis or radiculitis, unspecified documented in this encounter [facility] Work Phone: [phone] note* Diagnosis Acute frontal sinusitis, recurrence not specified- Primary Viral URI with cough documented in this 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 Work Phone: Evaluation note* Diagnosis Neurogenic claudication due to lumbar spinal stenosis Spinal stenosis of lumbar region Lumbosacral radiculopathy Thoracic or lumbosacral neuritis or radiculitis, unspecified documented in this [facility] Work Phone: [phone] note* Diagnosis Chronic pain syndrome- Primary Degeneration of intervertebral disc of lumbar region, unspecified whether pain present Lumbosacral radiculopathy Thoracic or lumbosacral neuritis or radiculitis, unspecified Spondylosis of lumbosacral region, unspecified spinal osteoarthritis complication status H/O arthrodesis Neurogenic claudication due to lumbar spinal stenosis Spinal stenosis of lumbar region documented in this 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 Work Phone: [phone] note* Diagnosis Senile osteoporosis documented in this [facility] Work Phone: [phone] note* Diagnosis Age-related osteoporosis without current pathological fracture- Primary Senile osteoporosis Vitamin D deficiency Unspecified vitamin D deficiency [facility] Diagnosis Neurogenic claudication due to lumbar spinal stenosis- Primary Spinal stenosis of lumbar region Lumbosacral radiculopathy Thoracic or lumbosacral neuritis or radiculitis, unspecified Spondylosis of lumbosacral region, unspecified spinal osteoarthritis complication status S/P spinal fusion Arthrodesis status Degenerative disc disease, lumbar Other chronic pain documented in this [facility] Work Phone: [phone] note* Diagnosis Syncope, unspecified syncope type- Primary documented in this [facility] Work Phone: [phone] note* Diagnosis Anxiety Anxiety state, unspecified Chronic [...] obesity type (Multi) documented in this [facility] Work Phone: Evaluation note* Diagnosis Neurogenic claudication due to lumbar spinal stenosis- Primary Spinal stenosis of lumbar region Lumbosacral radiculopathy Thoracic or lumbosacral neuritis or radiculitis, unspecified Degenerative disc disease, lumbar Chronic pain syndrome H/O arthrodesis Rheumatoid arthritis involving multiple sites, unspecified whether rheumatoid factor present (Multi) documented in this [facility] Work Phone: Evaluation note* Diagnosis Senile osteoporosis- Primary Neurogenic claudication due to lumbar spinal stenosis Spinal stenosis of lumbar region Lumbosacral radiculopathy Thoracic or lumbosacral neuritis or radiculitis, unspecified Degenerative disc disease, lumbar H/O arthrodesis documented in this [facility] Work Phone: Evaluation note* Diagnosis Preop [...] pain present- Primary [facility] Diagnosis Lumbosacral radiculopathy- Primary Thoracic or lumbosacral neuritis or radiculitis, unspecified H/O arthrodesis Neurogenic claudication due to lumbar spinal stenosis Spinal stenosis of lumbar region documented [facility] Work Phone: Evaluation note* Diagnosis Acute upper respiratory infection- Primary Acute upper respiratory infections of unspecified site Acute bronchitis, unspecified organism documented in this [facility] Work Phone: Evaluation note* Diagnosis Routine [...] for screening mammogram documented [facility] Work Phone: Evaluation note* Diagnosis Routine general medical examination at [facility] facility- Primary Routine general medical examination at a [facility] Anxiety Anxiety state, unspecified Chronic pain [...] unspecified type- Primary documented in this [facility] Work Phone: Evaluation note* Diagnosis Routine general medical examination at [facility] facility- Primary Routine general medical examination at a [facility] Anxiety Anxiety state, unspecified Chronic pain [...] for screening mammogram documented in this [facility] Work Phone: Evaluation note* Diagnosis Routine [...] or radiculitis, unspecified documented in this [facility] Work Phone: Evaluation note* Diagnosis Routine [...] syndrome, lumbar region documented in this [facility] Work Phone: Evaluation note* Diagnosis Routine [...] of right shoulder documented in this [facility] Work Phone: Evaluation note* Diagnosis Routine [...] of right shoulder documented in this [facility] Work Phone: Evaluation note* Diagnosis Routine general medical examination at [facility] care facility- Primary Routine general medical examination at a [facility] Anxiety Anxiety state, unspecified Chronic pain [...] of right shoulder documented in this [facility] Work Phone: Evaluation note* Diagnosis Routine general medical examination at [facility]- Primary Routine general medical examination at a [facility] Anxiety Anxiety state, unspecified Chronic pain [...] or radiculitis nos documented in this [facility] Work Phone: Evaluation note* Diagnosis Routine [...] of cervical spine documented in this [facility] Work Phone: Evaluation note* Diagnosis Preop [...] of cervical spine [facility] Diagnosis Routine general medical examination [...] of cervical spine documented in this [facility] Work Phone: Evaluation noteNo assessment information available [facility] Work Phone: Evaluation note* Diagnosis [...] initial encounter- Primary [facility] Diagnosis Routine general medical examination at [...] factor present (Multi) documented in this [facility] Work Phone: Evaluation note* Diagnosis Routine [...] gastroenteritis and colitis documented [facility] Work Phone: Evaluation note* Diagnosis Preop [...] left great toe [facility]* Here for f/u HTN, high chol, GERD, osteoporosis, anxiety, chronic pain (Dr Alcantar), rheumatoid arthritis (Dr Chisholm), precancerous lesions on legs ([facility] [employer] [facility] [place]) - all stable. She states that overall she is doing pretty well, she has had a couple of falls - tripped over her 's feet once and tripped over a cloths rack at [facility] - she went to the ER and did have Xrays and she then followed up with construction manager. * She is having issues with constipation [...] and considered. OARRS reviewed and is appropriate. -[facility] Work Phone: History of Present illness Narrative* [...] (Dr Chisholm), precancerous lesions on legs ([facility] [place]) - all stable. She states that overall she is doing pretty well. * She uses xanax prn for her anxiety and tramadol rarely for pain, has been on both for a long time, they work well, risks/benefits/alternatives have been discussed and considered. OARRS reviewed and is appropriate. [facility] Work Phone: History of Present illness Narrative* Here for f/u HTN, high chol, GERD, osteoporosis, anxiety, chronic pain (Dr Alcantar), rheumatoid arthritis (Dr Chisholm), precancerous lesions on legs ([facility] [place]) - all stable. She states that overall [...] and considered. OARRS reviewed and is appropriate. [facility] 205 DO Work Phone: History of Present [...] She is planning on a vacation to [place] on 02/04/2022 and is hoping to delay surgical intervention until after the trip.[facility] 300 [...] She is planning on a vacation to [place] on 02/04/2022 and is hoping to delay surgical intervention until after the trip.[facility] 300 Work Phone: History of Present illness NarrativePatient is a pleasant 71-year-old female presenting today for the first in the series of viscosupplementation (Euflexxa) injections for the right knee. Patient continues to be quite symptomatic with pain of the right knee and is agreeable to proceed with the injection today.[facility] Work Phone: History of Present illness [...] third and final injection of the series today.[facility] Work Phone: History of Present illness Narrative* Here for f/u HTN, high chol, GERD (Dr Moncada), osteoporosis, anxiety, chronic pain (Dr Alcantar), rheumatoid arthritis (Dr Chisholm), precancerous lesions on legs ([facility] [place]) - all stable. She states that overall [...] and considered. OARRS reviewed and is appropriate. -[facility] Work Phone: History of Present illness Narrative* [...] (Dr Chisholm), precancerous lesions on legs ([facility] [place]) - all stable. She states that overall she is doing pretty well. * She uses xanax prn for her anxiety and tramadol rarely for pain, has been on both for a long time, they work well, risks/benefits/alternatives have been discussed and considered. OARRS reviewed and is appropriate. -[facility] Work Phone: History of Present illness Narrative* [...] Phone Pager Good Khan MD 12/29/2023 09:11 [id number] Exam Information Status Exam Begun Exam Ended [...] abdomen and pelvis from 08/08/2013. ACCESSION NUMBER(S): [id number] ORDERING CLINICIAN: BRYAN LUZ TECHNIQUE: Routine unenhanced [...] is moderate left facet osteoarthropathy at T12-L1, sltyofhb-eg-dloeqb bilateral facet osteoarthropathy at L1-L2, and marked [...] spine report. This study was interpreted at [facility]. MACRO: None Signed by: Good Khan 12/29/2023 9:11 AM Dictation workstation: [id number] XR EOS full body EAM through ankle 2 views Status: Final result PACS Images Show images for XR EOS full body EAM through ankle 2 views Signed by Signed Time Phone Pager Cal Turner MD 02/01/2024 12:11 [id number] Exam Information Status Exam Begun Exam Ended Final 02/01/2024 11:22 02/01/2024 11:34 Study Result Narrative & Impression Interpreted By: Cal Turner, STUDY: XR EOS FULL BODY EAM THROUGH ANKLE 2 VIEWS; 02/01/2024 11:34 am INDICATION: Signs/Symptoms:examine scoliosis (surgical planning). COMPARISON: None. ACCESSION NUMBER(S): [id number] ORDERING CLINICIAN: BRYAN LUZ TECHNIQUE: AP and [...] degenerative changes seen of the left hip. Wwlc-ds-gzdxtkxj degenerative changes seen of the right knee as visualized. There is a left knee arthroplasty. Lungs are clear. Bowel-gas pattern is nonobstructive. IMPRESSION: As above without osseous injury evident. Please see ordering clinician notes for any quantitative measurement of spinal curvature. Signed by: Cal Turner 02/01/2024 12:11 PM Dictation workstation: [id number] MR lumbar spine wo IV contrast Status: [...] COMPARISON: Lumbar spine MRI 07/14/2018 ACCESSION NUMBER(S): [id number] ORDERING CLINICIAN: MAURICIO MANCILLA TECHNIQUE: Multiplanar multisequence [...] of the spinal canal and bilateral foramina, wzcyq-vvzggzx-ohqn-left. Crowding of the cauda equina nerve roots [...] Damari Gibson 07/27/2023 10:41 AM Dictation workstation: [id number] Assessment/Plan Diagnoses and all orders for this [...] anything from our services. [facility] Work Phone: Hospital Discharge instructions* Attachments The following attachments cannot be sent through Care Everywhere. * Diarrhea, Adult ED (Malawian) * Viral gastroenteritis in adults ([place]ian) [facility] Work Phone: Reason for referral (narrative)* Consultation (Routine) - Authorized Specialty Diagnoses / Procedures Referred By Contac t Referred To Contact Primary Care Diagnoses Anxiety Chronic pain syndrome Primary hypertension Hypercholesteremia Osteoporosis, unspecified osteoporosis type, unspecified pathological fracture presence Primary generalized (osteo)arthritis Rheumatoid arthritis involving multiple sites, unspecified whether rheumatoid factor present (CMS/[facility]) Class 1 obesity with serious comorbidity and body mass index (BMI) of 34.0 to 34.9 in adult, unspecified obesity type Gastroesophageal reflux disease without esophagitis Vitamin D deficiency Procedures Follow Up In Primary Care - Medicare Annual Jasmine Mathias MD [address] [facility] [place] [address] Referral ID Status Reason Start Date Expiration Date V isits Requested Visits Authorized [id number] Authorized 11/10/2022 05/09/2023 1 1 * Imaging (Routine) - Authorized Specialty Diagnoses / Procedures Referred By Contac t Referred To Contact Radiology Diagnoses Neck pain Procedures XR cervical spine complete 4-5 views Jasmine Mathias MD [address] [place] [address] Referral ID Status Reason Start Date Expiration Date Visits Requested Visits Authorized [id number] Authorized Perform Procedure 11/10/2022 05/09/[address] [facility] Work Phone: Reason for referral (narrative)* Consultation (Routine) - Pending Review Specialty Diagnoses / Procedures Referred By Contac t Referred To Contact Podiatry Procedures [place] [facility] 60-74 MINUTES Jasmine Mccormick PA-C [address] [place] [address] Referral ID Status Reason Start Date Expiration Date Visits Requested Visits Authorized [id number] Pending Review Specialty Services Required 12/26/2022 06/24/[address] [facility] Work Phone: Reason for referral (narrative)* Procedure (Routine) - Authorized Specialty Diagnoses / Procedures Referred By Maxwell melendez Referred To Contact Pain Medicine / Procedural Diagnoses Cervical radiculitis Procedures Epidural Steroid Injection Mauricio Mancilla PA-C [address] [place] [address] [place] [address] [id number] Referral ID Status Reason Start Date Expiration Date Visits Requested Visits Authorized [id number] Authorized Perform Procedure 03/01/2023 02/29/[address] [facility] Work Phone: Reason for referral (narrative)* [...] Care - Established Jasmine Mathias MD [address] [facility] [place] [address] Referral ID Status Reason Start Date Expiration Date V isits Requested Visits Authorized [id number] Authorized 05/13/2023 05/12/2024 1 1 * Imaging (Routine) - Authorized Specialty Diagnoses / Procedures Referred By Maxwell melendez Referred To Contact Radiology Diagnoses Encounter for screening mammogram for breast cancer Procedures BI mammo bilateral screening tomosynthesis Jasmine Mathias MD [address] [facility] Medical [place] [phone] Referral ID Status Reason Start Date Expiration Date Visits Requested Visits Authorized [id number] Authorized Perform Procedure 05/13/2023 05/12/2024 1 1 [facility] Work Phone: Rechrd for referral (narrative)* Procedure (Routine) - Pending Review Specialty Diagnoses / Procedures Referred By Contac t Referred To Contact Diagnoses Lumbosacral radiculopathy Neurogenic claudication due to lumbar spinal stenosis Procedures Transforaminal Mauricio Mancilla PA-C [address] [place] [address] Referral ID Status Reason Start Date Expiration Date Visits Requested Visits Authorized [id number] Pending Review Perform Procedure 08/09/2023 08/08/2024 1 1 [facility] Work Phone: Resega for referral (narrative)* Consultation (Routine) - Authorized [...] - Medicare Annual Jasmine Mathias MD [address] [facility] [place] [address] Referral ID Status Reason Start Date Expiration Date V isits Requested Visits Authorized [id number] Authorized 11/10/2023 11/09/2024 1 1 [facility] Work Phone: Reason for referral (narrative)* Consultation (Routine) - Authorized Specialty Diagnoses / Procedures Referred By Contac t Referred To Contact Neurosurgery Diagnoses Neurogenic claudication due to lumbar spinal stenosis Lumbosacral radiculopathy Degenerative disc disease, lumbar H/O arthrodesis Mauricio Mancilla PA-C [address] [place] [address] Bryan Luz MD [address] [facility], [address] [place] [address] Referral ID Status Reason Start Date Expiration Date Visits Requested Visits Authorized [id number] Authorized Specialty Services Required 11/17/2023 11/16/[address] [facility] Work Phone: Rehsuo for referral (narrative)No reason for referral [facility]: Reason for visit Narrative* Procedure (Routine) - Authorized Specialty Diagnoses / Procedures Referred By Contac t Referred To Contact Pain Medicine / Procedural Diagnoses Cervical radiculitis Procedures Epidural Steroid Injection Mauricio Mancilla PA-C [address] [place] [address] [place] [address] [phone] Referral ID Status Reason Start Date Expiration Date Visits Requested Visits Authorized [id number] Authorized Perform Procedure 03/01/2023 02/29/[address] [facility] Work Phone: Reason for visit Narrative* Consultation (Routine) - Closed Specialty Diagnoses / Procedures Referred By Contac t Referred To Contact Primary Care Diagnoses Anxiety Chronic pain syndrome Primary hypertension Hypercholesteremia Osteoporosis, unspecified osteoporosis type, unspecified pathological fracture presence Primary generalized (osteo)arthritis Rheumatoid arthritis involving multiple sites, unspecified whether rheumatoid factor present (CMS/[facility]) Class 1 obesity with serious comorbidity and body mass index (BMI) of 34.0 to 34.9 in adult, unspecified obesity type Gastroesophageal reflux disease without esophagitis Vitamin D deficiency Procedures Follow Up In Primary Care - Medicare Annual Jasmine Mathias MD [address] [facility] Medical Office [place] [phone] Referral ID Status Reason Start Date Expiration Date Visits Re quested Visits Authorized [id number] Closed 11/10/2022 05/09/[address] [facility] Work Phone: reason for visit Narrative* Procedure (Routine) - Authorized Specialty Diagnoses / Procedures Referred By Maxwell t Referred To Contact Pain Medicine / Procedural Diagnoses Lumbosacral radiculopathy Neurogenic claudication due to lumbar spinal stenosis Procedures Transforaminal Mauricio Mancilla, BERRY [address] [place] [address] [phone] Referral ID Status Reason Start Date Expiration Date Visits Requested Visits Authorized [id number] Authorized Perform Procedure 08/09/2023 08/08/[address] [facility] Work Phone: reason for visit Narrative* Imaging (Routine) - Pending Review Specialty Diagnoses / Procedures Referred By Maxwell melendez Referred To Contact Radiology Diagnoses Neurogenic claudication due to lumbar spinal stenosis Lumbosacral radiculopathy Procedures XR EOS full body EAM through ankle 2 views XR EOS full spine 2 view scolosis Bryan Luz MD [address] [facility], [facility] [address] [place] [address] Phone: tel: fax: Referral ID Status Reason Start Date Expiration Date Visits Requested Visits Authorized [id number] Pending Review Perform Procedure 12/12/2023 12/11/[address] [facility] Work Phone: reason for visit Narrative* Imaging (Routine) - Authorized Specialty Diagnoses / Procedures Referred By Maxwell t Referred To Contact Radiology Diagnoses 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HHS-HCC) Pain of right hip Procedures CT pelvis wo IV contrast Jasmine Mathias MD [address] [address] Phone: tel: fax: Referral ID Status Reason Start Date Expiration Date Visits Requested Visits Authorized [id number] Authorized Perform Procedure 01/30/2024 01/29/[address] [facility] Work Phone: Refazs for visit Narrative* Imaging (Routine) - Authorized Specialty Diagnoses / Procedures Referred By Contac t Referred To Contact Radiology Diagnoses 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HHS-HCC) Pain of right hip Procedures CT hip right wo IV contrast Jasmine Mathias MD [address] [place] [phone] Phone: tel: fax: Referral ID Status Reason Start Date Expiration Date Visits Requested Visits Authorized [id number] Authorized Perform Procedure 01/30/2024 01/29/[address] [facility] Work Phone: Renamt for visit Narrative* Imaging (Routine) - Pending Review Specialty Diagnoses / Procedures Referred By Contac t Referred To Contact Radiology Diagnoses Senile osteoporosis Procedures XR DEXA bone density XR DEXA bone density axial skeleton w VFA Bryan Luz MD [address] [facility], [facility] [address] [place] [address] Phone: tel: fax: Referral ID Status Reason Start Date Expiration Date Visits Requested Visits Authorized [id number] Pending Review Perform Procedure 12/12/2023 12/11/[address] [facility] Work Phone: reason for visit Narrative* [...] Care - Established Jasmine Mathias MD [address] [facility] [place] [address] Referral ID Status Reason Start Date Expiration Date V isits Requested Visits Authorized [id number] Authorized 05/13/2023 05/12/[address] [facility] Work Phone: reason for visit Narrative* Imaging (Routine) - Authorized Specialty Diagnoses / Procedures Referred By Maxwell t Referred To Contact Radiology Diagnoses Visit for screening mammogram Procedures BI mammo bilateral screening tomosynthesis Jasmine Mathias MD [address] [place] [address] Phone: tel: fax: Referral ID Status Reason Start Date Expiration Date Visits Requested Visits Authorized [id number] Authorized Perform Procedure 05/14/2024 05/14/[address] [facility] Work Phone: reason for visit Narrative* Imaging (Routine) - Authorized Specialty Diagnoses / Procedures Referred By Samsonac t Referred To Contact Pain Medicine / Radiology Diagnoses Lumbosacral radiculopathy Procedures [place] pain management Mauricio Mancilla PA-C [address] [place] [address] Phone: tel: fax: [facility] [address] [place] [phone] Phone: tel: fax: Referral ID Status Reason Start Date Expiration Date Visits Requested Visits Authorized [id number] Authorized Perform Procedure 04/11/2024 04/11/[address] [facility] Work Phone: reason for visit Narrative* Imaging (Routine) - Authorized Specialty Diagnoses / Procedures Referred By Contac t Referred To Contact Radiology Diagnoses Acute pain of right shoulder Procedures XR shoulder right 2+ views Jasmine Mathias MD [address] [place] [id number] Phone: tel: fax: Referral ID Status Reason Start Date Expiration Date Visits Requested Visits Authorized [id number] Authorized Perform Procedure 06/26/2024 06/26/[address] [facility] Work Phone: Reason for visit Narrative* Imaging (Routine) - Authorized Specialty Diagnoses / Procedures Referred By Contac t Referred To Contact Radiology Diagnoses Acute pain of right shoulder Procedures XR cervical spine complete 4-5 views Jasmine Mathias MD [address] [place] [address] Phone: tel: fax: Referral ID Status Reason Start Date Expiration Date Visits Requested Visits Authorized [id number] Authorized Perform Procedure 06/26/2024 06/26/[address] [facility] Work Phone: Reason for visit Narrative* Imaging (Routine) - Authorized Specialty Diagnoses / Procedures Referred By Contac t Referred To Contact Radiology Diagnoses Cervical radiculitis Anterolisthesis of cervical spine Procedures MR cervical spine w and wo IV contrast Celeste Moran, EXCELLENCE 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 MACHINE [address] [place] [address] Phone: tel: fax: Referral ID Status Reason Start Date Expiration Date Visits Requested Visits Authorized [id number] Authorized Perform Procedure 07/16/2024 07/16/[address] [facility] Work Phone: Assessments Diagnosis Hiatal hernia [...] the original. [facility] [address] (11) [facility] [address] [facility] [phone] Narendra Arguelles is a 67 y.o. female [...] the original. [facility] [address] (11) [facility] [address] [facility] [phone] Narendra Arguelles is a 67 y.o. [...] FoundDocuments on File Type Date Recorded Patient Hearing Aid Consultant Expl anation Advance Directives and Living Will Documents on File Type Date Recorded Patient Hearing Aid Consultant Expl anation Healthcare Power of Atty 08/19/2021 Documents on File Type Date Recorded Patient Hearing Aid Consultant Expl anation Healthcare Power of Atty 08/19/2021 Latest Code Status on File Code Status Date Activated Date Inactivated Comments Full Code 01/05/2023 12:54 PM 01/05/2023 3:56 PM Documents on File Type Date Recorded Patient Hearing Aid Consultant Expl anation Healthcare Power of Atty 08/19/2021 Power of Furniture Mechanic 08/14/2021 Date Activated Date Inactivated Comments 01/05/2023 12:54 PM 01/05/2023 3:56 PM Date Activated Date Inactivated Comments 01/05/2023 12:54 PM 01/05/2023 3:56 PM Procedure Findings Note [facility] [address] [place], [place] [address]FFWVNARENDRA MARTIN [facility] [id number] 1951ATEOPERATIVE REPORT / PROCEDURE NOTESKAYLEE MONCADA MD, [facility] PROCEDUREDATE OF PQIWANEAHQTHQI90/23/2018PROCEDUREHigh-resolution esophageal manometry with impedance.INDICATIONEvaluate for reflux disease.PROCEDURE [...] is -6 (more content not included)... Note [facility] [address], [place] [address]ZWZANARENDRA MARTIN [facility] [id number] 2DATE 03/13/2018OPERATIVE REPORT / PROCEDURE NOTESKAYLEE MONCADA [...] pathological fracture Mary Carmen Tovar MD [address] [place] [address] [facility] [address] [place] [address] Specialty Diagnoses / Procedures Referred By Contac t Referred To Contact Radiology Diagnoses Esophageal dysphagia Status post laparoscopic Rosalva fundoplication Procedures XR Esophagram Swallow Study Delvis Moncada MD [address] [address] Referral ID Status Reason Start Date Expiration Date V isits Requested Visits Authorized [id number] Authorized 11/26/2021 11/26/2022 1 1 Specialty Diagnoses / Procedures Referred By Contac t Referred To Contact Radiology Diagnoses Dislocated toe, left, initial encounter Hammer toe of second toe of left foot Procedures CT Foot Left Without Contrast CT Foot Left Without Contrast Roderick Jeter, AMARJITM [address] [place] [address] Referral ID Status Reason Start Date Expiration Date V isits Requested Visits Authorized [id number] New Request 12/27/2022 12/27/2023 1 1 Specialty Diagnoses / Procedures Referred By Contac t Referred To Contact Radiology Diagnoses Dislocated toe, left, initial encounter Hammer toe of second toe of left foot Procedures CT Foot Left Without Contrast CT Foot Left Without Contrast Roderick Jeter, RYAN [address] [place] [address] [address] [place] [address] Specialty Diagnoses / Procedures Referred By Contac t Referred To Contact Radiology Diagnoses Encounter for screening mammogram for breast cancer Procedures BI mammo bilateral screening tomosynthesis Jasmine Mathias MD [address] [facility] [place] [address] Referral ID Status Reason Start Date Expiration Date Visits Requested Visits Authorized [id number] Authorized Perform Procedure 05/13/2023 05/12/2024 1 1 Specialty Diagnoses / Procedures Referred By Contac t Referred To Contact Radiology Diagnoses Neurogenic claudication due to lumbar spinal stenosis Lumbosacral radiculopathy Procedures MR lumbar spine wo IV contrast Mauricio Mancilla PA-C [address] [place] [address] Referral ID Status Reason Start Date Expiration Date Visits Requested Visits Authorized [id number] Pending Review Perform Procedure 07/26/2023 07/25/2024 1 1 Specialty Diagnoses / Procedures Referred By Contac t Referred To Contact Radiology Diagnoses Neurogenic claudication due to lumbar spinal stenosis Lumbosacral radiculopathy Procedures XR lumbar spine 2-3 views Mauricio Mancilla PA-C [address] [place] [address] Referral ID Status Reason Start Date Expiration Date Visits Requested Visits Authorized [id number] Authorized Perform Procedure 07/26/2023 07/25/2024 1 1 Specialty Diagnoses / Procedures Referred By Contac t Referred To Contact [facility] [address] [place] [phone] Referral ID Status Reason Start Date Expiration Date V isits Requested Visits Authorized [id number] Pending Review 08/26/2023 08/25/2024 1 1 Specialty Diagnoses / Procedures Referred By Contac t Referred To Contact Pain Medicine / Procedural Diagnoses Lumbosacral radiculopathy Neurogenic claudication due to lumbar spinal stenosis Procedures Transforaminal Mauricio Mancilla PA-C [address] [place] [address] [phone] Referral ID Status Reason Start Date Expiration Date Visits Requested Visits Authorized [id number] Authorized Perform Procedure 08/09/2023 08/08/2024 1 1 Specialty Diagnoses / Procedures Referred By Contac t Referred To Contact Radiology Diagnoses Right hip pain Procedures XR pelvis 3+ views Jasmine Mathias MD [address] [place] [address] Referral ID Status Reason Start Date Expiration Date Visits Requested Visits Authorized [id number] Authorized Perform Procedure 12/27/2023 12/26/2024 1 1 Specialty Diagnoses / Procedures Referred By Contac t Referred To Contact Radiology Diagnoses Right hip pain Procedures XR hip right with pelvis when performed 2 or 3 views Jasmine Mathias MD [address] [address] Referral ID Status Reason Start Date Expiration Date Visits Requested Visits Authorized [id number] Authorized Perform Procedure 12/27/2023 12/26/2024 1 1 Specialty Diagnoses / Procedures Referred By Contac t Referred To Contact Radiology Diagnoses Neurogenic claudication due to lumbar spinal stenosis Lumbosacral radiculopathy Procedures CT lumbar spine wo IV contrast Bryan Luz MD [address] [facility], [place] [address] Referral ID Status Reason Start Date Expiration Date Visits Requested Visits Authorized [id number] Authorized Perform Procedure 12/12/2023 12/11/2024 1 1 Specialty Diagnoses / Procedures Referred By Contac t Referred To Contact Diagnoses Degenerative disc disease, lumbar Other chronic pain Mauricio Mancilla PA-C [address] [place] [phone] Referral ID Status Reason Start Date Expiration Date V isits Requested Visits Authorized [id number] Pending Review 1 1 Specialty Diagnoses / Procedures Referred By Contac t Referred To Contact Neurosurgery Diagnoses Neurogenic claudication due to lumbar spinal stenosis Lumbosacral radiculopathy Spondylosis of lumbosacral region, unspecified spinal osteoarthritis complication status S/P spinal fusion Mauricio Mancilla PA-C [address] [place] [address] Referral ID Status Reason Start Date Expiration Date Visits Requested Visits Authorized [id number] Authorized Specialty Services Required 09/22/2023 09/21/2024 1 1 Specialty Diagnoses / Procedures Referred By Contac t Referred To Contact Radiology Diagnoses Neurogenic claudication due to lumbar spinal stenosis Lumbosacral radiculopathy Procedures XR EOS full spine 2 view scolosis Bryan Luz MD [address] [facility], [address] [address] Referral ID Status Reason Start Date Expiration Date Visits Requested Visits Authorized [id number] Authorized Perform Procedure 12/12/2023 12/11/2024 1 1 Specialty Diagnoses / Procedures Referred By Contac t Referred To Contact Radiology Diagnoses Senile osteoporosis Procedures XR DEXA bone density axial skeleton w VFA Bryan Luz MD [address] [facility], [address] [address] Referral ID Status Reason Start Date Expiration Date Visits Requested Visits Authorized [id number] Authorized Perform Procedure 12/12/2023 12/11/2024 1 1 Specialty Diagnoses / Procedures Referred By Contac t Referred To Contact Internal Medicine Diagnoses Neurogenic claudication due to lumbar spinal stenosis Lumbosacral radiculopathy Bryan Luz MD [address] [facility], [address] [address] Referral ID Status Reason Start Date Expiration Date Visits Requested Visits Authorized [id number] Authorized Specialty Services Required 12/12/2023 12/11/2024 1 1 Specialty Diagnoses / Procedures Referred By Contac t Referred To Contact Physical Therapy Diagnoses Neurogenic claudication due to lumbar spinal stenosis Lumbosacral radiculopathy Bryan Luz MD [address] [facility], [address] [address] Referral ID Status Reason Start Date Expiration Date Visits Requested Visits Authorized [id number] Pending Review Specialty Services Required 12/12/2023 12/11/2024 1 1 Referral ID Status Reason Start Date Expiration Date Visits Requested Visits Authorized [id number] Pending Review Specialty Services Required 12/12/2023 12/11/2024 [...] right shoulder Jasmine Mathias MD [address] [facility] [address] [place] [address] Phone: tel: fax: Soraya Hernandez MD [address] [facility] [address] [place] [address] Phone: tel: fax: Referral ID Status Reason Start Date Expiration Date Visits Requested Visits Authorized [id number] Authorized Specialty Services Required 06/28/2024 06/28/2025 1 1 Reason Comments Follow-up Reason Comments Follow-up Hiatal hernia with G ERD Reason Comments Other Infusion Reason Comments Infusion Visit Status Reason Specialty Diagnoses / Procedures Referred By Contact Referred To Contact Pending Review Chemotherapy Diagnoses Age-related osteoporosis without current pathological fracture Mary Carmen Tovar MD [address] [place] [phone] [facility] [address] [place] [address] Reason Comments Pain Reason Comments Follow-up Osteoporosis [...] bilateral screening tomosynthesis Jasmine Mathias MD [address] [facility] [place] [address] Referral ID Status Reason Start Date Expiration Date Visits Requested Visits Authorized [id number] Authorized Perform Procedure 05/13/2023 05/12/2024 1 1 [...] views Mauricio Mancilla PA-C [address] [place] [address] Referral ID Status Reason Start Date Expiration Date Visits Requested Visits Authorized [id number] Authorized Perform Procedure 07/26/2023 07/25/2024 1 1 Specialty Diagnoses / Procedures Referred By Maxwell melendez Referred To Contact Radiology Diagnoses Neurogenic claudication due to lumbar spinal stenosis Lumbosacral radiculopathy Procedures MR lumbar spine wo IV contrast Mauricio Mancilla PA-C [address] [place] [address] Referral ID Status Reason Start Date Expiration Date Visits Requested Visits Authorized [id number] Pending Review Perform Procedure 07/26/2023 07/25/2024 1 1 Reason Comments Back Pain FUV MRI results. 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 She [...] Mathias MD [address] [place] [address] Referral ID Status Reason Start Date Expiration Date Visits Requested Visits Authorized [id number] Authorized Perform Procedure 12/27/2023 12/26/2024 1 1 Specialty Diagnoses / Procedures Referred By Maxwell melendez Referred To Contact Radiology Diagnoses Neurogenic claudication due to lumbar spinal stenosis Lumbosacral radiculopathy Procedures CT lumbar spine wo IV contrast Bryan Luz MD [address] [facility], [address] [place] [address] Referral ID Status Reason Start Date Expiration Date Visits Requested Visits Authorized [id number] Authorized Perform Procedure 12/12/2023 12/11/2024 1 1 [...] lumbar H/O arthrodesis Mauricio Mancilla, BERRY [address] [place] [address] Bryan Luz MD [address] [facility], [facility] [address] [place] [address] Referral ID Status Reason Start Date Expiration Date Visits Requested Visits Authorized [id number] Authorized Specialty Services Required 11/17/2023 11/16/2024 1 [...] Expiration Date V isits Requested Visits Authorized [id number] Authorized 11/10/2023 11/09/2024 1 1 Reason Comments Illness Wheezing, went to [facility] 05/07 Reason Comments Follow-up FUV- Right L2/3-L3/4 [...] Postlaminectomy syndrome of lumbar region Celeste Moran, EXCELLENCE 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 MACHINE [address] [place] [address] Phone: tel: fax: Smith Estrada, DO [address] [place] [address] Phone: tel: fax: Referral ID Status Reason Start Date Expiration Date Visits Requested Visits Authorized [id number] Authorized Specialty Services Required 06/25/2024 06/25/2025 1 [...] content) DATE CREATED AUTHOR 03/20/2018 [facility] DATE CREATED AUTHOR AUTHOR'S ORGANIZ ATION 12/30/2018 [facility] DATE CREATED AUTHOR AUTHOR'S ORGANIZ ATION 12/04/2022 [facility] DATE CREATED AUTHOR AUTHOR'S ORGANIZ ATION 12/18/2022 [facility] DATE CREATED AUTHOR AUTHOR'S ORGANIZ ATION 12/28/2022 [facility] DATE CREATED AUTHOR [facility]IZ AT[facility] AUTHOR'S ORGANIZ ATION 01/03/2023 [facility] DATE CREATED AUTHOR AUTHOR'S ORGANIZ ATION 02/18/2024 [facility] DATE CREATED AUTHOR AUTHOR'S ORGANIZ ATION 02/20/2024 [facility] DATE CREATED AUTHOR AUTHOR'S ORGANIZ ATION 05/12/2024 [facility] DATE CREATED AUTHOR AUTHOR'S ORGANIZ ATION 07/11/2024 [facility] DATE CREATED AUTHOR AUTHOR'S ORGANIZ ATION 07/30/2024 [facility] DATE CREATED AUTHOR AUTHOR'S ORGANIZ ATION 09/12/2024 [facility] DATE CREATED AUTHOR AUTHOR'S ORGANIZ ATION 09/[facility]/2024 [facility] DATE CREATED AUTHOR AUTHOR'S ORGANIZ ATION 09/17/2024 [facility] DATE CREATED AUTHOR AUTHOR'S ORGANIZ ATION 09/17/2024 [facility] DATE CREATED AUTHOR AUTHOR'S ORGANIZ ATION 09/17/2024 [facility] <item><item><item><item> Privacy Markings (unrecogniz ed section [...] Care Teams (unrecognized sec tion and content) Line Ordering Clinician Relationship Specialty Start Date End Date Jasmine Mathias MD [address] [place] [address] PCP - General Family Medicine 06/27/15 Jasmine Mathias MD [address] [place] [phone] Referring Physician Family Medicine 07/08/17 Jasmine Lao MD [address] [place] [address] REBECCA Attributed Provider - Internal Medicine Internal Medicine 04/18/14 Caryn Conway MD [address] [facility] [place] [address] REBECCA Attributed Provider - Family Medicine Family Medicine 05/26/15 Line Ordering Clinician Relationship Specialty Start Date End Date PabloiaJasmine saleh MD [address] [place] [phone] PCP - General Family Medicine 06/27/15 aJsmine Mathias MD [address] [place] [phone] Referring Physician Family Medicine 07/08/17 Jasmine Lao MD [address] [place] [phone] REBECCA Attributed Provider - Internal Medicine Internal Medicine 04/18/14 Caryn Conway MD [address] [facility] [place] [address] REBECCA Attributed Provider - Family Medicine Family Medicine 05/26/15 Line Ordering Clinician Relationship Specialty Start Date End Date Jasmine Mathias MD [address] [place] [phone] PCP - General Family Medicine 12/13/17 Line Ordering Clinician Relationship Specialty Start Date End Date Jasmine Mathias MD [address] [place] [address] PCP - General Family Medicine 06/27/15 [facility] [address] [place] [phone] Referring Physician Family Medicine 07/08/17 Jasmine Lao MD [address] [place] [address] REBECCA Attributed Provider - Internal Medicine Internal Medicine 04/18/14 Caryn Conway MD [address] [facility] [place] [address] REBECCA Attributed Provider - Family Medicine Family Medicine 05/26/15 Line Ordering Clinician Relationship Specialty Start Date End Date PabloiaJasmine saleh MD [address] [place] [phone] PCP - General Family Medicine 06/27/15 [facility] [address] [place] [phone] Referring Physician Family Medicine 07/08/17 Jasmine Lao MD [address] [place] [address] REBECCA Attributed Provider - Internal Medicine Internal Medicine 04/18/14 Caryn Conway MD [address] [facility] [place] [address] REBECCA Attributed Provider - Family Medicine Family Medicine 05/26/15 Line Ordering Clinician Relationship Specialty Start Date End Date PabloiaJasmine saleh MD [address] [place] [address] PCP - General Family Medicine 06/27/15 PabloiaJasmine saleh MD [address] [place] [address] Referring Physician Family Medicine 07/08/17 Jasmine Lao MD [address] [place] [address] REBECCA Attributed Provider - Internal Medicine Internal Medicine 04/18/14 Caryn Conway MD [address] [facility] [place] [address] REBECCA Attributed Provider - Family Medicine Family Medicine 05/26/15 Line Ordering Clinician Relationship Specialty Start Date End Date Jasmine Mathias MD [address] [facility] [place] [address] PCP - General 11/28/18 Jasmine Mathias MD [address] [facility] [place] [address] PCP - MSSP ACO Attributed Provider 03/28/21 Line Ordering Clinician Relationship Specialty Start Date End Date Jasmine Mathias MD [address] [facility] [place] [address] PCP - General 11/28/18 Jasmine Mathias MD [address] [facility] [place] [address] PCP - MSSP ACO Attributed Provider 03/28/21 Line Ordering Clinician Relationship Specialty Start Date End Date Jasmine Mathias MD [address] [facility] [place] [address] PCP - General 11/28/18 Jasmine Mathias MD [address] [facility] Office [place], [place] [phone] PCP - [facility] Attributed Provider 03/28/21 Line Ordering Clinician Relationship Specialty Start Date End Date Jasmine Mathias MD [address] [place] [phone] PCP - General 11/28/18 Jasmine Mathias MD [address] [place], [place] [phone] PCP - [facility] ACO Attributed Provider 03/28/21 Line Ordering Clinician Relationship Specialty Start Date End Date Jasmine Mathias MD [address] [place] [phone] PCP - General Family Medicine 06/27/15 Jasmine Mathias MD [address] [place] [address] Referring Physician Family Medicine 07/08/17 Line Ordering Clinician Relationship Specialty Start Date End Date Jasmine Mathias MD [address] [place] [phone] PCP - General Family Medicine 06/27/15 Jasmine Mathias MD [address] [place] [address] Referring Physician Family Medicine 07/08/17 Line Ordering Clinician Relationship Specialty Start Date End Date Jasmine Mathias MD [address] [place] [address] PCP - General Family Medicine 06/27/15 Jasmine Mathias MD [address] [place] [phone] Referring Physician Family Medicine 07/08/17 Line Ordering Clinician Relationship Specialty Start Date End Date Jasmine Mathias MD [address] [place] [phone] PCP - General Family Medicine 06/27/15 Jasmine Mathias MD [address] [place] [address] Referring Physician Family Medicine 07/08/17 Line Ordering Clinician Relationship Specialty Start Date End Date Jasmine Mathias MD [address] [place] [phone] PCP - General Family Medicine 06/27/15 Jasmine Mathias MD [address] [place] [address] Referring Physician Family Medicine 07/08/17 Line Ordering Clinician Relationship Specialty Start Date End Date Jasmine Mathias MD [address] [place] [phone] PCP - General Family Medicine 06/27/15 Jasmine Mathias MD [address] [place] [address] Referring Physician Family Medicine 07/08/17 Line Ordering Clinician Relationship Specialty Start Date End Date Jasmine Mathias MD [address] [place], [place] [phone] PCP - General 11/28/18 Jasmine Mathias MD [address] [place] [phone] PCP - [facility] ACO Attributed Provider 03/28/21 Line Ordering Clinician Relationship Specialty Start Date End Date Jasmine Mathias MD [facility] [place] [phone] PCP - General Family Medicine 12/13/17 Line Ordering Clinician Relationship Specialty Start Date End Date Jasmine Mathias MD [address] [place], [place] [phone] PCP - General Family Medicine 06/27/15 Jasmine Mathias MD [facility] [place] [address] Referring Physician Family Medicine 07/08/17 Line Ordering Clinician Relationship Specialty Start Date End Date Jasmine Mathias MD [address] [place] [phone] PCP - General Family Medicine 06/27/15 Jasmine Mathias MD [address] [place] [phone] Referring Physician Family Medicine 07/08/17 Line Ordering Clinician Relationship Specialty Start Date End Date Jasmine Mathias MD [address] [facility] [place] [phone] PCP - General 11/28/18 Jasmine Mathias MD [address] [facility] [place] [phone] PCP - MSSP ACO Attributed Provider 03/28/21 Line Ordering Clinician Relationship Specialty Start Date End Date Jasmine Mathias MD [address] [facility] Office [place] [phone] PCP - General 11/28/18 Jasmine Mathias MD [address] [facility] [place] [address] PCP - MSSP ACO Attributed Provider 03/28/21 Line Ordering Clinician Relationship Specialty Start Date End Date Jasmine Mathias MD [address] [facility] [place] [address] PCP - General 11/28/18 Jasmine Mathias MD [address] [facility] [place] [address] PCP - MSSP ACO Attributed Provider 03/28/21 Line Ordering Clinician Relationship Specialty Start Date End Date Jasmine Mathias MD [address] [facility] [place] [phone] PCP - General 11/28/18 Jasmine Mathias MD [address] [facility] [place] [phone] PCP - MSSP ACO Attributed Provider 03/28/21 Line Ordering Clinician Relationship Specialty Start Date End Date Jasmine Mathias MD [facility] [address] [facility] [place] [phone] PCP - General 11/28/18 Jasmine Mathias MD [address] [facility] [place] [phone] PCP - MSSP ACO Attributed Provider 03/28/21 Line Ordering Clinician Relationship Specialty Start Date End Date Jasmine Mathias MD [facility] [address] [facility] [place] [address] PCP - General 11/28/18 Jasmine Mathias MD [facility] [address] [facility] [place] [phone] PCP - MSSP ACO Attributed Provider 03/28/21 Line Ordering Clinician Relationship Specialty Start Date End Date Jasmine Mathias MD [facility] [address] [facility] [place] [phone] PCP - General 11/28/18 Jasmine Mathias MD [facility] [address] [facility] [place] [phone] PCP - MSSP ACO Attributed Provider 03/28/21 Line Ordering Clinician Relationship Specialty Start Date End Date Jasmine Mathias MD [address] [facility] [place] [address] PCP - General 11/28/18 Jasmine Mathias MD [address] [facility] [place] [phone] PCP - MSSP ACO Attributed Provider 03/28/21 Line Ordering Clinician Relationship Specialty Start Date End Date Jasmine Mathias MD [address] [facility] Office [place] [phone] PCP - General 11/28/18 Jasmine Mathias MD [address] [facility] [place] [phone] PCP - MSSP ACO Attributed Provider 03/28/21 Line Ordering Clinician Relationship Specialty Start Date End Date Jasmine Mathias MD [address] [place] [phone] PCP - General 11/28/18 Jasmine Mathias MD [address] [facility] [place] [phone] PCP - MSSP ACO Attributed Provider 03/28/21 Line Ordering Clinician Relationship Specialty Start Date End Date Jasmine Mathias MD [address] [facility] [place] [address] PCP - General 11/28/18 Jasmine Mathias MD [address] [facility] [place] [address] PCP - MSSP ACO Attributed Provider 03/28/21 Line Ordering Clinician Relationship Specialty Start Date End Date Jasmine Mathias MD [address] [address] PCP - MSSP ACO Attributed Provider 03/28/21 Jasmine Mathias MD [address] [address] PCP - General Family Medicine 12/27/23 Bryan Luz MD [address] [place] [phone] Surgeon Neurosurgery 12/12/23 Line Ordering Clinician Relationship Specialty Start Date End Date Jasmine Mathias MD [address] [address] PCP - MSSP ACO Attributed Provider 03/28/21 Jasmine Mathias MD [address] [address] PCP - General Family Medicine 12/27/23 Bryan Luz MD [address] [place] [address] Surgeon Neurosurgery 12/12/23 Line Ordering Clinician Relationship Specialty Start Date End Date Jasmine Mathias MD [address] [address] PCP - MSSP ACO Attributed Provider 03/28/21 Jasmine Mathias MD [address] [address] PCP - General Family Medicine 12/27/23 Bryan Luz MD [address] [place] [address] Surgeon Neurosurgery 12/12/23 Line Ordering Clinician Relationship Specialty Start Date End Date Jasmine Mathias MD [address] [address] PCP - MSSP ACO Attributed Provider 03/28/21 Jasmine Mathias MD [address] [place] [phone] PCP - General Family Medicine 12/27/23 Bryan Luz MD [address] [place] [address] Surgeon Neurosurgery 12/12/23 Line Ordering Clinician Relationship Specialty Start Date End Date Jasmine Mathias MD [address] [address] PCP - MSSP ACO Attributed Provider 03/28/21 Jasmine Mathias MD [address] [address] PCP - General Family Medicine 12/27/23 Bryan Luz MD [address] [address] Surgeon Neurosurgery 12/12/23 Line Ordering Clinician Relationship Specialty Start Date End Date Jasmine Mathias MD [address] [place] [address] PCP - MSSP ACO Attributed Provider 03/28/21 Jasmine Mathias MD [address] [place] [address] PCP - General Family Medicine 12/27/23 Bryan Luz MD [address] [place] [address] Surgeon Neurosurgery 12/12/23 Line Ordering Clinician Relationship Specialty Start Date End Date Jasmine Mathias MD [address] [place] [address] PCP - MSSP ACO Attributed Provider 03/28/21 Jasmine Mathias MD [address] [place] [address] PCP - General Family Medicine 12/27/23 Bryan Luz MD [address] [place] [address] Surgeon Neurosurgery 12/12/23 Line Ordering Clinician Relationship Specialty Start Date End Date Jasmine Mathias MD [address] [place] [address] PCP - MSSP ACO Attributed Provider 03/28/21 Jasmine Mathias MD [address] [place] [address] PCP - General Family Medicine 12/27/23 Bryan Luz MD [address] [address] Surgeon Neurosurgery 12/12/23 Line Ordering Clinician Relationship Specialty Start Date End Date Jasmine Mathias MD [address] [place] [address] PCP - General Family Medicine 12/13/17 Line Ordering Clinician Relationship Specialty Start Date End Date Jasmine Mathias MD [address] [address] PCP - MSSP ACO Attributed Provider 03/28/21 Jasmine Mathias MD [address] [address] PCP - General Family Medicine 12/27/23 Bryan Luz MD [address] [address] Surgeon Neurosurgery 12/12/23 Della You, financial planning consultantCar Spotter 03/07/24 Line Ordering Clinician Relationship Specialty Start Date End Date Jasmine Mathias MD [address] [place] [phone] PCP - General 11/28/18 Jasmine Mathias MD [address] [place] [address] PCP - MSSP ACO Attributed Provider 03/28/21 Line Ordering Clinician Relationship Specialty Start Date End Date Jasmine Mathias MD [address] [address] PCP - MSSP ACO Attributed Provider 03/28/21 Bryan Luz MD [address] [place] [phone] Surgeon Neurosurgery 12/12/23 Line Ordering Clinician Relationship Specialty Start Date End Date Jasmine Mathias MD [address] [place] [phone] PCP - General Family Medicine 06/27/15 Jasmine Mathias MD [address] [place] [phone] Referring Physician Family Medicine 07/08/17 Line Ordering Clinician Relationship Specialty Start Date End Date Jasmine Mathias MD [address] [place] [address] PCP - MSSP ACO Attributed Provider 03/28/21 Jasmine Mathias MD [address] [place] [phone] PCP - General Family Medicine 12/27/23 Bryan Luz MD [address] [place] [phone] Surgeon Neurosurgery 12/12/23 Della You, financial planning consultantCar Spotter 03/07/24 Line Ordering Clinician Relationship Specialty Start Date End Date Jasmine Mathias MD [address] [address] PCP - MSSP ACO Attributed Provider 03/28/21 Jasmine Mathias MD [address] [place] [address] PCP - General Family Medicine 12/27/23 Bryan Luz MD [address] [place] [address] Surgeon Neurosurgery 12/12/23 Della You, financial planning consultantCar Spotter 03/07/24 Line Ordering Clinician Relationship Specialty Start Date End Date Jasmine Mathias MD [address] [place] [address] PCP - MSSP ACO Attributed Provider 03/28/21 Jasmine Mathias MD [address] [place] [address] PCP - General Family Medicine 12/27/23 Bryan Luz MD [address] [place] [address] Surgeon Neurosurgery 12/12/23 Della You, financial planning consultantCar Spotter 03/07/24 Line Ordering Clinician Relationship Specialty Start Date End Date Jasmine Mathias MD [address] [place] [address] PCP - MSSP ACO Attributed Provider 03/28/21 Jasmine Mathias MD [address] [place] [address] PCP - General Family Medicine 12/27/23 Bryan Luz MD [address] [place] [address] Surgeon Neurosurgery 12/12/23 Della You, financial planning consultantCar Spotter 03/07/24 Line Ordering Clinician Relationship Specialty Start Date End Date Jasmine Mathias MD [address] [address] PCP - MSSP ACO Attributed Provider 03/28/21 Jasmine Mathias MD [address] [address] PCP - General Family Medicine 12/27/23 Bryan Luz MD [address] [place] [phone] Surgeon Neurosurgery 12/12/23 Line Ordering Clinician Relationship Specialty Start Date End Date Jasmine Mathias MD [address] [place] [phone] PCP - MSSP ACO Attributed Provider 03/28/21 Jasmine Mathias MD [address] [place] [phone] PCP - General Family Medicine 12/27/23 Bryan Luz MD [address] [address] Surgeon Neurosurgery 12/12/23 Line Ordering Clinician Relationship Specialty Start Date End Date Jasmine Mathias MD [address] [address] PCP - MSSP ACO Attributed Provider 03/28/21 Jasmine Mathias MD [address] [address] PCP - General Family Medicine 12/27/23 Bryan Luz MD [address] [place] [address] Surgeon Neurosurgery 12/12/23 Line Ordering Clinician Relationship Specialty Start Date End Date Jasmine Mathias MD [address] [place] [address] PCP - MSSP ACO Attributed Provider 03/28/21 Jasmine Mathias MD [address] [place], [place] [phone] PCP - General Family Medicine 12/27/23 Bryan Luz MD [address] [address] Surgeon Neurosurgery 12/12/23 Line Ordering Clinician Relationship Specialty Start Date End Date Jasmine Mathias MD [address] [place] [phone] PCP - MSSP ACO Attributed Provider 03/28/21 Jasmine Mathias MD [address] [place], [place] [phone] PCP - General Family Medicine 12/27/23 Bryan Luz MD [address] [place] [address] Surgeon Neurosurgery 12/12/23 Line Ordering Clinician Relationship Specialty Start Date End Date Jasmine Mathias MD [address] [place] [address] PCP - MSSP ACO Attributed Provider 03/28/21 Jasmine Mathias MD [address] [place] [address] PCP - General Family Medicine 12/27/23 Bryan Luz MD [address] [place] [address] Surgeon Neurosurgery 12/12/23 Line Ordering Clinician Relationship Specialty Start Date End Date Jasmine Mathias MD [address] [place] [address] PCP - MSSP ACO Attributed Provider 03/28/21 Jasmine Mathias MD [address] [place] [address] PCP - General Family Medicine 12/27/23 Bryan Luz MD [address] [place] [address] Surgeon Neurosurgery 12/12/23 Line Ordering Clinician Relationship Specialty Start Date End Date Jasmine Mathias MD [address] [place] [address] PCP - MSSP ACO Attributed Provider 03/28/21 Jasmine Mathias MD [address] [place] [address] PCP - General Family Medicine 12/27/23 Bryan Luz MD [address] [place] [address] Surgeon Neurosurgery 12/12/23 Line Ordering Clinician Relationship Specialty Start Date End Date Jasmine Mathias MD [address] [address] PCP - MSSP ACO Attributed Provider 03/28/21 Jasmine Mathias MD [address] [address] PCP - General Family Medicine 12/27/23 Bryan Luz MD [address] [address] Surgeon Neurosurgery 12/12/23 Line Ordering Clinician Relationship Specialty Start Date End Date Jasmine Mathias MD [address] [place] [phone] PCP - General Family Medicine 06/27/15 Jasmine Mathias MD [address] [place] [phone] Referring Physician Family Medicine 07/08/17 Line Ordering Clinician Relationship Specialty Start Date End Date Jasmine Mathias MD [address] [address] PCP - MSSP ACO Attributed Provider 03/28/21 Jasmine Mathias MD [address] [address] PCP - General Family Medicine 12/27/23 Bryan Luz MD [address] [address] Surgeon Neurosurgery 12/12/23 Team Status: Active Member Role Status Dates Dr. Jasmine Mathias MD Family Provider Active Dr. Jasmine Mathias MD Primary Care Provider [...] August 10, 2024 End: August 10, 2024 Line Ordering Clinician Relationship Specialty Start Date End Date Jasmine Mathias MD [address] [place] [phone] PCP - General Family Medicine 06/27/15 Jasmine Mathias MD [address] [place] [address] Referring Physician Family Medicine 07/08/17 Line Ordering Clinician Relationship Specialty Start Date End Date Jasmine Mathias MD [address] [phone] PCP - MSSP ACO Attributed Provider 03/28/21 Jasmine Mathias MD [address] [address] PCP - General Family Medicine 12/27/23 Bryan Luz MD [address] [address] Surgeon Neurosurgery 12/12/23 Team Status: Active Member [...] September 07, 2024 End: September 07, 2024 Line Ordering Clinician Relationship Specialty Start Date End Date Jasmine Mathias MD [address] [address] PCP - [facility] ACO Attributed Provider 03/28/21 Jasmine Mathias MD [address] [address] PCP - General Family Medicine 12/27/23 Bryan Luz MD [address] [address] Surgeon Neurosurgery 12/12/23 Scheduled Active and Recently Administ ered Medications (unrecognized section and content) Medication Order 12/24/2022 12/25/2022 12/26/2022 HYDROcodone-acetaminophen ([place]) 5-325 mg per tablet 1 tablet (COMPLETED) [...] BE BASED ON THE PRIMARY CLINICAL RECORDS. [employer] provides no warranty or guarantee of the accuracy or completeness of information in this document.
[2024-09-18] MEDS: Lactated Ringers 1,000 ML 15 ML IV (06:36)
[2024-09-18] MEDS: Magnesium 1 GM over 15 mins IV (06:38)
[2024-09-18] MEDS: Acetaminophen 500 MG Tablet 1000 MG PO (06:38)
[2024-09-18 07:11] LABS: Bedside Glucose 111 mg/dL (74-106)
--- NOTE | 2024-09-18 07:12 | PRE.ANES_ITS ---
ASA Classification* ASA Classification ASA Classification: 3 Assessment & Plan Anesthesia* Anesthesia Assessment Anesthesia Assessment: Discussed sedation and/or anesthesia options, risks, benefits, and alternatives with patient/parents/legal guardian/POA. Questions invited. The patient/parents/legal guardian/POA seems to understand and agrees to proceed with anesthesia plan. Reviewed the physical assessment, medical history, allergy history and patient home medications list prior to surgery/procedure/anesthetic and documented any changes. Performed airway and anesthesia risk assessments. Anesthesia Type Anesthesia Type: General History Source History Obtained from:: Patient and Chart Anesthesia Focused Assessment* Temperature: 97.8 F Pulse Rate: 75 Blood Pressure: 133/70 Respiratory Rate: 18 Pulse Ox: 98 Oxygen Delivery Method: Room Air Airway Assessment Mouth opens: >3 cm Mallampati Score: I Teeth Condition: Intact Neck Range of motion (ROM): Limited ROM (Limited extension secondary to pain.) Labs Anesthesia Preop lab: CBC WBC 5.1 K/mm3 (4.4-11.0) 09/07/24 07:03 09/07/24 RBC 3.88 M/mm3 (4.2-5.4) L 09/07/24 07:03 09/07/24 Hgb 11.8 g/dL (12.0-15.0) L 09/07/24 07:03 5 Hct 36.3 % (37-47) L 09/07/24 07:03 09/07/24 Plt Count 267 K/mm3 (150-450) 09/07/24 07:03 09/07/24 CHEMISTRY Potassium 4.3 mmol/L (3.3-5.1) 09/07/24 07:03 09/07/24 Sodium 139 mmol/L (133-145) 09/07/24 07:03 09/07/24 Magnesium 2.1 mg/dL (1.5-2.2) 09/07/24 07:02 09/07/24 BUN 30 mg/dL (4-19) H 09/07/24 07:03 09/07/24 Creatinine 0.91 mg/dL (0.70-1.20) 09/07/24 07:03 09/07/24 Glucose 71 mg/dL (70-99) 09/07/24 07:03 09/07/24 POC Glucose 111 mg/dL (74-106) H 09/18/24 06:45 09/18/24 COAG Pre-Assessment Diagnosis/Proposed Procedure Planned Operative Procedure(s): ANTERIOR CERVICAL FUSION C3-4 C4-5 REMOVAL HARDWARE Anesthesia History 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 When Was Last Pacemaker Check QUESTION #4 FULL TEXT: You/Your Family Experience fever (hyperthermia) with Anesthesia Last Oral Intake Last Oral intake: Last Oral Intake NPO since 03:00 09/18/24 06:16 Meds taken in AM with sips of Yes 09/18/24 06:16 water? Meds patient instructed to see medlist 09/18/24 06:16 take am of surgery Any additional information?: Yes NPO since: 03:00 (Patient finished her preop Ensure at 3 AM) Meds taken in AM with sips of water?: Yes Meds patient instructed to take am of surgery: Lisinopril and omeprazole. PONV PONV - field assessor: PONV - field assessor Female Yes 09/04/24 14:18 HX of Motion Sickness No 09/04/24 14:18 HX of N/V After Surgery No 09/04/24 14:18 Non-Smoker Yes 09/04/24 14:18 Duration of Surgery greater Yes 09/04/24 14:18 than 60 minutes Number of Risk Factors 3 09/04/24 14:18 PONV Score Moderate Risk 09/04/24 14:18 Height & Weight Height & Weight: Anesthesia: Height & Weight Height 5 ft 1 in 09/18/24 06:16 Weight: 91.1 kg 09/18/24 06:16 Body Mass Index (BMI) 37.9 09/18/24 06:16 Respiratory Assessment Respiratory Assessment - field assessor: Respiratory Tract Infection Hx - field assessor Hx Respiratory Tract Infection No 09/04/24 14:18 STOP Sleep Apnea STOP Sleep Apnea - field assessor: STOP Sleep Apnea - field assessor Hx Hypertension Yes: CONTROLLED WITH MED 09/04/24 14:18 Hx Sleep Apnea No 09/04/24 14:18 CPAP BIPAP Do you snore loudly (louder No 09/04/24 14:18 than talking or can be heard Do you often feel tired/ No 09/04/24 14:18 fatigued/ sleepy during daytime? Has anyone observed you stop No 09/04/24 14:18 breathing during sleep? STOP Results Negative 09/04/24 14:18 QUESTION #5 FULL TEXT : Do you snore loudly (louder than talking or can be heard through closed doors)? 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 confused, unrespo /Reproduction History /Reproductive History - field assessor: /Reproductive Hx- field assessor Hx Now No 09/04/24 14:18 Gestational Age (in weeks): EDC: Hx Hx Para Hx Section SAB No 09/04/24 14:18 Active Medications Active Medications: Current Medications Generic Name Dose Route Start Last Admin Trade Name Freq PRN Reason Stop Dose Admin Acetaminophen 1,000 mg 09/18/24 09:30 09/18/24 06:38 Acetaminophen 500 Mg Tablet PO 09/18/24 09:31 1,000 mg PREOP ONE Administration Dexamethasone Sodium Phosphate 8 mg 09/18/24 09:30 Dexamethasone 10 Mg/Ml Vial IV 09/18/24 09:31 INTRAOP ONE Dexamethasone Sodium Phosphate 4 mg 09/18/24 09:30 Dexamethasone 4 Mg/Ml Vial IV 09/18/24 09:31 POSTOP ONE Cefazolin Sodium 2 gm/ Sodium 110 mls @ 150 mls/hr 09/18/24 09:30 Chloride IV 09/18/24 10:13 INTRAOP ONE Tranexamic Acid 1,000 mg/ 110 mls @ 440 mls/hr 09/18/24 09:30 Sodium Chloride IV 09/18/24 09:44 INTRAOP ONE Tranexamic Acid 1,000 mg/ 110 mls @ 440 mls/hr 09/18/24 09:30 Sodium Chloride IV 09/18/24 09:44 INTRAOP ONE Magnesium Sulfate 1 gm/ 102 mls @ 408 mls/hr 09/18/24 07:30 09/18/24 06:38 Dextrose IV 09/18/24 07:44 408 mls/hr INTRAOP ONE Administration Lactated Ringer's 1,000 mls @ 15 mls/hr 09/18/24 06:15 09/18/24 06:36 IV 15 mls/hr .Q48H ENMA Administration Insulin Human Lispro 1 - 6 unit 09/18/24 09:30 Insulin Lispro 100 Unit/Ml Insuln.Pen SC Q4H PRN PRN BG>/= 180, SEE PROTOCOL Protocol PFSH Medical History Wears glasses Post-menopausal Anxiety Alcohol use Dry skin dermatitis Cancer Numbness and tingling in right hand History of steroid therapy Ambulates with cane Rheumatoid arthritis Low iron Restless legs Back pain Migraine headache Blackout Constipation Difficulty swallowing History of ulceration History of IBS Gastric reflux Non-smoker Shortness of breath on exertion Hoarseness Leg cramps Hx of fracture of pelvis History of edema History of stress test Hypertension Home Medications ?Medication ?Instructions ?Recorded ?Last Taken ?Type alprazolam 0.25 mg tablet (Xanax) 0.25 mg PO QHS PRN a nxiety 05/16/25 Unknown History atorvastatin 20 mg tablet (Lipitor) 20 mg PO QHS 08/10 Unknown History ferrous fumarate 325 mg (106 mg 325 mg PO QDAY 5 Unknown History iron) tablet furosemide 20 mg tablet 20 mg PO QAM 08/10/24 Unknow n History gabapentin 300 mg capsule 300 mg PO TID 08/10/24 Unkno wn History lisinopril 5 mg tablet 5 mg PO QDAY 08/10/24 History meloxicam 15 mg tablet 15 mg PO QDAY 08/10/2409/13 History nortriptyline 25 mg capsule 25 mg PO .QHS' 08/10/24 Un known History omeprazole 40 mg capsule,delayed 40 mg PO QDAY 5 09/18/24 History release tramadol 50 mg tablet 50 mg PO QDAY PRN pain 08/10 Unknown History zoledronic acid 5 mg/100 mL in 1 ea IV .QYEAR 08/10/24 Unknown History mannitol 5 %-water intravenous piggybck (Reclast) methotrexate sodium 2.5 mg tablet 20 mg PO MO 09/04/24 Unknown History Allergy/AdvReac Type Severity Reaction Status Date / Time codeine Allergy Mild Constipatio Verified 09/18/24 06:15 n Surgical History History of lumbar spinal fusion Hx of right cataract extraction Hx of left cataract extraction History of repair of hiatal hernia History of esophagogastroduodenoscopy (EGD) Hx of colonoscopy Hx of bilateral salpingo-oophorectomy History of repair of rectocele Hx of hysterectomy Hx of arthroscopy of shoulder Hx of arthroscopy of shoulder Hx of fusion of cervical spine Hx of foot surgery Hx of total knee arthroplasty Hx of total hip arthroplasty Social History Smoking Status: Never smoker Review of Systems (Anesthesia) ROS Narrative System reviewed and no additional complaints, except as documented.
--- NOTE | 2024-09-18 07:12 | PRE.ANES_ITS ---
ASA Classification* ASA Classification ASA Classification: 3 Assessment & Plan Anesthesia* Anesthesia Assessment Anesthesia Assessment: Discussed sedation and/or anesthesia options, risks, benefits, and alternatives with patient/parents/legal guardian/POA. Questions invited. The patient/parents/legal guardian/POA seems to understand and agrees to proceed with anesthesia plan. Reviewed the physical assessment, medical history, allergy history and patient home medications list prior to surgery/procedure/anesthetic and documented any changes. Performed airway and anesthesia risk assessments. Anesthesia Type Anesthesia Type: General History Source History Obtained from:: Patient and Chart Anesthesia Focused Assessment* Temperature: 97.8 F Pulse Rate: 75 Blood Pressure: 133/70 Respiratory Rate: 18 Pulse Ox: 98 Oxygen Delivery Method: Room Air Airway Assessment Mouth opens: >3 cm Mallampati Score: I Teeth Condition: Intact Neck Range of motion (ROM): Limited ROM (Limited extension secondary to pain.) Labs Anesthesia Preop lab: CBC WBC 5.1 K/mm3 (4.4-11.0) 09/07/24 07:03 09/07/24 RBC 3.88 M/mm3 (4.2-5.4) L 09/07/24 07:03 09/07/24 Hgb 11.8 g/dL (12.0-15.0) L 09/07/24 07:03 5 Hct 36.3 % (37-47) L 09/07/24 07:03 09/07/24 Plt Count 267 K/mm3 (150-450) 09/07/24 07:03 09/07/24 CHEMISTRY Potassium 4.3 mmol/L (3.3-5.1) 09/07/24 07:03 09/07/24 Sodium 139 mmol/L (133-145) 09/07/24 07:03 09/07/24 Magnesium 2.1 mg/dL (1.5-2.2) 09/07/24 07:02 09/07/24 BUN 30 mg/dL (4-19) H 09/07/24 07:03 09/07/24 Creatinine 0.91 mg/dL (0.70-1.20) 09/07/24 07:03 09/07/24 Glucose 71 mg/dL (70-99) 09/07/24 07:03 09/07/24 POC Glucose 111 mg/dL (74-106) H 09/18/24 06:45 09/18/24 COAG Pre-Assessment Diagnosis/Proposed Procedure Planned Operative Procedure(s): ANTERIOR CERVICAL FUSION C3-4 C4-5 REMOVAL HARDWARE Anesthesia History 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 When Was Last Pacemaker Check QUESTION #4 FULL TEXT: You/Your Family Experience fever (hyperthermia) with Anesthesia Last Oral Intake Last Oral intake: Last Oral Intake NPO since 03:00 09/18/24 06:16 Meds taken in AM with sips of Yes 09/18/24 06:16 water? Meds patient instructed to see medlist 09/18/24 06:16 take am of surgery Any additional information?: Yes NPO since: 03:00 (Patient finished her preop Ensure at 3 AM) Meds taken in AM with sips of water?: Yes Meds patient instructed to take am of surgery: Lisinopril and omeprazole. PONV PONV - vice president and portfolio manager: PONV - vice president and portfolio manager Female Yes 09/04/24 14:18 HX of Motion Sickness No 09/04/24 14:18 HX of N/V After Surgery No 09/04/24 14:18 Non-Smoker Yes 09/04/24 14:18 Duration of Surgery greater Yes 09/04/24 14:18 than 60 minutes Number of Risk Factors 3 09/04/24 14:18 PONV Score Moderate Risk 09/04/24 14:18 Height & Weight Height & Weight: Anesthesia: Height & Weight Height 5 ft 1 in 09/18/24 06:16 Weight: 91.1 kg 09/18/24 06:16 Body Mass Index (BMI) 37.9 09/18/24 06:16 Respiratory Assessment Respiratory Assessment - vice president and portfolio manager: Respiratory Tract Infection Hx - vice president and portfolio manager Hx Respiratory Tract Infection No 09/04/24 14:18 STOP Sleep Apnea STOP Sleep Apnea - vice president and portfolio manager: STOP Sleep Apnea - vice president and portfolio manager Hx Hypertension Yes: CONTROLLED WITH MED 09/04/24 14:18 Hx Sleep Apnea No 09/04/24 14:18 CPAP BIPAP Do you snore loudly (louder No 09/04/24 14:18 than talking or can be heard Do you often feel tired/ No 09/04/24 14:18 fatigued/ sleepy during daytime? Has anyone observed you stop No 09/04/24 14:18 breathing during sleep? STOP Results Negative 09/04/24 14:18 QUESTION #5 FULL TEXT : Do you snore loudly (louder than talking or can be heard through closed doors)? 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 confused, unrespo /Reproduction History /Reproductive History - vice president and portfolio manager: /Reproductive Hx- vice president and portfolio manager Hx Now No 09/04/24 14:18 Gestational Age (in weeks): EDC: Hx Hx Para Hx Section SAB No 09/04/24 14:18 Active Medications Active Medications: Current Medications Generic Name Dose Route Start Last Admin Trade Name Freq PRN Reason Stop Dose Admin Acetaminophen 1,000 mg 09/18/24 09:30 09/18/24 06:38 Acetaminophen 500 Mg Tablet PO 09/18/24 09:31 1,000 mg PREOP ONE Administration Dexamethasone Sodium Phosphate 8 mg 09/18/24 09:30 Dexamethasone 10 Mg/Ml Vial IV 09/18/24 09:31 INTRAOP ONE Dexamethasone Sodium Phosphate 4 mg 09/18/24 09:30 Dexamethasone 4 Mg/Ml Vial IV 09/18/24 09:31 POSTOP ONE Cefazolin Sodium 2 gm/ Sodium 110 mls @ 150 mls/hr 09/18/24 09:30 Chloride IV 09/18/24 10:13 INTRAOP ONE Tranexamic Acid 1,000 mg/ 110 mls @ 440 mls/hr 09/18/24 09:30 Sodium Chloride IV 09/18/24 09:44 INTRAOP ONE Tranexamic Acid 1,000 mg/ 110 mls @ 440 mls/hr 09/18/24 09:30 Sodium Chloride IV 09/18/24 09:44 INTRAOP ONE Magnesium Sulfate 1 gm/ 102 mls @ 408 mls/hr 09/18/24 07:30 09/18/24 06:38 Dextrose IV 09/18/24 07:44 408 mls/hr INTRAOP ONE Administration Lactated Ringer's 1,000 mls @ 15 mls/hr 09/18/24 06:15 09/18/24 06:36 IV 15 mls/hr .Q48H ENMA Administration Insulin Human Lispro 1 - 6 unit 09/18/24 09:30 Insulin Lispro 100 Unit/Ml Insuln.Pen SC Q4H PRN PRN BG>/= 180, SEE PROTOCOL Protocol PFSH Medical History Wears glasses Post-menopausal Anxiety Alcohol use Dry skin dermatitis Cancer Numbness and tingling in right hand History of steroid therapy Ambulates with cane Rheumatoid arthritis Low iron Restless legs Back pain Migraine headache Blackout Constipation Difficulty swallowing History of ulceration History of IBS Gastric reflux Non-smoker Shortness of breath on exertion Hoarseness Leg cramps Hx of fracture of pelvis History of edema History of stress test Hypertension Home Medications ?Medication ?Instructions ?Recorded ?Last Taken ?Type alprazolam 0.25 mg tablet (Xanax) 0.25 mg PO QHS PRN a nxiety 05/16/25 Unknown History atorvastatin 20 mg tablet (Lipitor) 20 mg PO QHS 08/10 Unknown History ferrous fumarate 325 mg (106 mg 325 mg PO QDAY 5 Unknown History iron) tablet furosemide 20 mg tablet 20 mg PO QAM 08/10/24 Unknow n History gabapentin 300 mg capsule 300 mg PO TID 08/10/24 Unkno wn History lisinopril 5 mg tablet 5 mg PO QDAY 08/10/24 History meloxicam 15 mg tablet 15 mg PO QDAY 08/10/2409/13 History nortriptyline 25 mg capsule 25 mg PO .QHS' 08/10/24 Un known History omeprazole 40 mg capsule,delayed 40 mg PO QDAY 5 09/18/24 History release tramadol 50 mg tablet 50 mg PO QDAY PRN pain 08/10 Unknown History zoledronic acid 5 mg/100 mL in 1 ea IV .QYEAR 08/10/24 Unknown History mannitol 5 %-water intravenous piggybck (Reclast) methotrexate sodium 2.5 mg tablet 20 mg PO MO 09/04/24 Unknown History Allergy/AdvReac Type Severity Reaction Status Date / Time codeine Allergy Mild Constipatio Verified 09/18/24 06:15 n Surgical History History of lumbar spinal fusion Hx of right cataract extraction Hx of left cataract extraction History of repair of hiatal hernia History of esophagogastroduodenoscopy (EGD) Hx of colonoscopy Hx of bilateral salpingo-oophorectomy History of repair of rectocele Hx of hysterectomy Hx of arthroscopy of shoulder Hx of arthroscopy of shoulder Hx of fusion of cervical spine Hx of foot surgery Hx of total knee arthroplasty Hx of total hip arthroplasty Social History Smoking Status: Never smoker Review of Systems (Anesthesia) ROS Narrative System reviewed and no additional complaints, except as documented.
--- NOTE | 2024-09-18 07:26 | PCM.HP.BLA ---
History and Physical Date of Admission: 09/18/24 MR#: [id number] Acct: [id number] Name: NARENDRA SWEENEY Rep #: [id number] : 1950 Provider: Dr. Elia Villegas MD Age/Sex: 73/F [place] [facility] [place] Status: Signed Intake Vital Signs 08/10/2508:34 09/07/2508:30 Height 5 ft 1 in 5 ft 1 in Weight: 204 lb 203 lb BMI 38.5 38.3 Intake Visit Reasons: cervical spine Chief Complaint: cervical spine pre op Accompanied by: Is patient in pain?: Yes Pain scale (1-10): 7 Allergies codeine Allergy (Mild, Verified 09/07/24 09:34) Constipation Medications ?Medication ?Instructions ?Recorded ?Confirmed ?Type alprazolam 0.25 mg tablet (Xanax) 0.25 mg PO QHS PRN anxiety 08/10/24 09/07/24 History atorvastatin 20 mg tablet (Lipitor) 20 mg PO QHS 08/10/24 09/07/24 History ferrous fumarate 325 mg (106 mg 325 mg PO QDAY 08/10/24 09/07/24 History iron) tablet furosemide 20 mg tablet 20 mg PO QAM 08/10/24 09/07/24 History gabapentin 300 mg capsule 300 mg PO TID 08/10/24 09/07/24 History lisinopril 5 mg tablet 5 mg PO QDAY 08/10/24 09/07/24 History meloxicam 15 mg tablet 15 mg PO QDAY 08/10/24 09/07/24 History nortriptyline 25 mg capsule 25 mg PO .QHS' 08/10/24 09/07/24 History omeprazole 40 mg capsule,delayed 40 mg PO QDAY 08/10/24 09/07/24 History release tramadol 50 mg tablet 50 mg PO QDAY PRN pain 08/10/24 09/07/24 History zoledronic acid 5 mg/100 mL in 1 ea IV .QYEAR 08/10/24 09/07/24 History mannitol 5 %-water intravenous piggybck (Reclast) methotrexate sodium 2.5 mg tablet 20 mg PO MO 09/04/24 09/07/24 History Have you fallen in the past year?: No PFSH Medical History Wears glasses Post-menopausal Anxiety Alcohol use Dry skin dermatitis Cancer Numbness and tingling in right hand History of steroid therapy Ambulates with cane Rheumatoid arthritis Low iron Restless legs Back pain Migraine headache Blackout Constipation Difficulty swallowing History of ulceration History of IBS Gastric reflux Non-smoker Shortness of breath on exertion Hoarseness Leg cramps Hx of fracture of pelvis History of edema History of stress test Hypertension Surgical History History of lumbar spinal fusion Hx of right cataract extraction Hx of left cataract extraction History of repair of hiatal hernia History of esophagogastroduodenoscopy (EGD) Hx of colonoscopy Hx of bilateral salpingo-oophorectomy History of repair of rectocele Hx of hysterectomy Hx of arthroscopy of shoulder Hx of arthroscopy of shoulder Hx of fusion of cervical spine Hx of foot surgery Hx of total knee arthroplasty Hx of total hip arthroplasty Social History Smoking Status: Never smoker HPI cervical spine Details: This documentation accurately reflects the service provided and the decisions made by me, Dr. Elia Villegas MD 09/07/24 0930. Part of today?s visit was documented by Varun Pop MA, acting as scribe. NARENDRA SWEENEY is a 73 year old F here today for cervical spine pre op. Patient is here to discuss surgery. She denies any recent injections or physical therapy. She continues to have significant neck pain with right shoulder and arm burning numbness, right hand numbness and weakness, left hand weakness, worsening dexterity and balance. 08/10/24: NARENDRA SWEENEY is a 73 year old F here today for cervical spine pain. Pt advises she been experiencing neck pain since Mar 2024. She denies known injury,. She describes it as neck pain from the right side of her neck that extends down her right arm to her fingers, as well as numbness down the right side of her chest and back. The patient does recall that she did have a fall back in February 2024 says that this was related to dizziness but denies any neck pain directly after this fall. Patient currently is getting a stabbing pain in the top of her right shoulder with tingling down her right arm all the way to her fingers, the patient says that she does have some left-sided tingling in the hands however this is not as frequent as the right sided symptoms. She states she had cervical spine surgery about 20 years ago where a mass was removed and a pinched nerve released. This was done by Dr. Rodolfo Moe at [place]. She says that at the time of her surgery 20 years ago she was having dexterity issues in her hand, pain, issues swallowing. She had a recent MRI at in [place]. She has been taking pain meds which is not helpful. The patient has meloxicam which she takes daily and tramadol which she takes as needed. The patient will take Tylenol as needed [id number] and takes 1000 mg every 6 hours. She states the pain wakes her up at night and is worse in the AM. She sees Dr. Chisholm for RA and takes methotrexate and will occasionally be on steroids for this. The patient also has low back pain and has had low back pain for many years. She gets anterior thigh pain. Patient says that she uses a cane in the morning when her back pain is at its worst. Patient has had injections in her low back but no neck epidural steroid injections. Says that she has noticed that she has dropped some things out of her hand over the last 6 months however she says that this is not a consistent issue. Patient and also report that she has had increased difficulty walking in a straight line over the last couple of years but deny any significantly worsening over the last several months. No diabetes, no heart or lung issues, no blood thinners. The patient does have a history of osteoporosis and has a Reclast infusion once a year for the osteoporosis and has been getting these for the last 5 to 6 years. Ortho Exam General General: Yes no acute distress Neurologic: Yes alert and Yes oriented x3 Spine SPINE TESTING CERVICAL THORACIC LUMBAR Musculoskeletal Strength 0=absent - 5=normal Details: Neurological exam of the upper extremities shows 5x5 power. Normal sensations across all dermatomes. No hyperreflexia. Ashvin's negative. There is midline tenderness and right sided paraspinal tenderness. Romberg's positive. Physical examination of the neck shows a well-healed transverse midline incision. Coding Level of Care Code Off vis,est,level 4 Diagnoses Cervical myelopathy with cervical radiculopathy G95.9; M54.12 Degenerative disc disease, cervical M50.30 Spondylolisthesis of cervical region M43.12 History of fusion of cervical spine Z98.1 Time Spent (min) 35 Assessment and Plan Assessment and Plan (1) Cervical myelopathy with cervical radiculopathy: Status: Acute (2) Degenerative disc disease, cervical: Status: Acute (3) Spondylolisthesis of cervical region: Status: Acute (4) History of fusion of cervical spine: Status: Acute Plan Again reviewed previously done x-rays and MRI of the cervical spine. Xrays show a prior C5-6 anterior fusion, imaging also shows multilevel disc height loss throughout the cervical spine, there is a mild retrolisthesis of C4 on C5 with vacuum phenomena, and anterolisthesis of C3 on C4 with dynamic instability, there is also disc height loss seen at C6-7 with vacuum. Reviewed cervical MRI from July 17, 2024 which showed the C3-4 anterolisthesis with moderate to severe spinal stenosis as well as severe right and moderate left foraminal stenosis. There is also flattening of the cord seen at this level. C4-5 shows moderate to severe left foraminal stenosis and mild right foraminal stenosis with mild spinal stenosis. Again explained the imaging findings in detail. Explained to the patient the progressive nature of cervical myelopathy. Patient has noticed pain over the last 5 months with radicular symptoms down the right arm. Right-sided symptoms are worse than left however she is also having some left-sided hand numbness and tingling periodically. The patient has also noticed a gradual decrease in balance over the last several years she also says that she has had some mild dexterity issues over the last 6 months. There was no hyperreflexia seen on examination today. Strength was equal bilaterally. Discussed options today which includes a C3-5 fusion with possible hardware removal. Discussed this procedure in detail and explained the risks and benefits. The risk include but are not limited to infection, bleeding, injury to nerves and vessels, hematoma formation, dysphagia, dysphonia, recurrent laryngeal nerve injury, Majo syndrome, DVT, pulm embolism, pneumonia, atelectasis, cardiopulmonary event, pseudoarthrosis, hardware failure, adjacent segment degeneration, need for further surgery, nerve root injury, spinal cord injury. Patient understands and agrees to proceed with surgery. Consent was signed.
[2024-09-18] MEDS: Cefazolin 2 GM in 0.9% Normal Saline (100mL Bag) 100 ML IV ×2 (07:50→15:11)
--- NOTE | 2024-09-18 07:54 | RAD_ITS ---
PROCEDURE: CERV SPINE 2 OR 3 VIEWS 09/18/2024 REASON FOR EXAM: ANTERIOR CERVICAL FUSION C3-4, C4-5 TECHNIQUE: CERV SPINE 2 OR 3 VIEWS Intraoperative fluoroscopic images. Radiation time 7.5 seconds. Radiation dose 0.75 mGy. COMPARISON: 08/10/2024. FINDINGS: Anterior intervertebral fusion at C5-C6. Unremarkable metallic hardware at C5-C6. Grade 1 anterolisthesis of C3 on C4. There are diffuse spondylotic changes. Findings are demonstrated to by diffuse disc space narrowing, osteophyte formation and degenerative endplate sclerosis. There is diffuse facet joint arthropathy with secondary bilateral neural foramina narrowing. No fracture or dislocation is seen. No aggressive lytic or blastic bony lesion is noted. RAD/Cerv Spine 2 or 3 Views IMPRESSION: Anterior intervertebral fusion at C5-C6. Unremarkable metallic hardware at C5-C6. Grade 1 anterolisthesis of C3 on C4. [facility]
--- NOTE | 2024-09-18 07:54 | RAD_ITS ---
PROCEDURE: CERV SPINE 2 OR 3 VIEWS 09/18/2024 REASON FOR EXAM: ANTERIOR CERVICAL FUSION C3-4, C4-5 TECHNIQUE: CERV SPINE 2 OR 3 VIEWS Intraoperative fluoroscopic images. Radiation time 7.5 seconds. Radiation dose 0.75 mGy. COMPARISON: 08/10/2024. FINDINGS: Anterior intervertebral fusion at C5-C6. Unremarkable metallic hardware at C5-C6. Grade 1 anterolisthesis of C3 on C4. There are diffuse spondylotic changes. Findings are demonstrated to by diffuse disc space narrowing, osteophyte formation and degenerative endplate sclerosis. There is diffuse facet joint arthropathy with secondary bilateral neural foramina narrowing. No fracture or dislocation is seen. No aggressive lytic or blastic bony lesion is noted. RAD/Cerv Spine 2 or 3 Views IMPRESSION: Anterior intervertebral fusion at C5-C6. Unremarkable metallic hardware at C5-C6. Grade 1 anterolisthesis of C3 on C4. Reading [facility]
[2024-09-18] MEDS: TRANEXAMIC ACID 1,000 MG in 0.9% Normal Saline (100mL Bag) 100 ML 440 MG IV ×2 (07:55→09:44)
[2024-09-18] MEDS: dexAMETHasone 10 MG/ML Vial 8 MG IV (08:00)
--- NOTE | 2024-09-18 10:25 | OP.PCM_ITS ---
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, myelopathy, prior C5-6 ACDF Post-Operative Diagnosis: Same Surgery/Procedure Performed: C3-5 ACDF, removal of previous hardware board of directors: Yes Artist'S Manager: Carolyn Tabares Tasks completed by housing assistant: Closing, Removing tissue, Implanting device, Hemostasis: Electrocautery and Retracting Type of Anesthesia: General RN Documented Start/Stop Times: Operation Date: 09/18/24 07:30 Case Time Into Pre-Op 09/18/24 06:02 Out of Pre-Op 09/18/24 07:34 Anesthesia Start 09/18/24 07:38 Into Room 09/18/24 07:38 Procedure Start 09/18/24 08:15 Procedure End 09/18/24 10:15 Anesthesia End 09/18/24 10:22 Out of Room 09/18/24 10:22 Procedure Start Time: 08:15 Procedure Stop Time: 10:15 Select all DRAINS/GRAFTS/IMPLANTS that apply: Drains Drain details: [place]ar , Graft Graft details: Structural allograft cortical cancellous strut and Implanted device Implanted device details: Medtronic Clifford Elite plate instrumentation Estimated Blood Loss: 40 cc Specimen collected: No Description of surgery: Preoperative diagnosis: C3-4 spondylolisthesis, C3-5 disc degeneration with stenosis, myelopathy, prior C5-6 ACDF Postoperative diagnosis: Same Name of procedure: C3-5 anterior cervical discectomy and fusion with plate instrumentation, removal of previous anterior hardware - Anterior cervical fusion C3-4, CPT code 27444 - Anterior plate instrumentation C3-5, CPT code 42285/59 - Anterior cervical fusion C4-5, CPT code 83641/51 - Removal of anterior spinal hardware, CPT code 35659 -Exploration of previous fusion, CPT code 75669 -C3-4 structural allograft bone with DBX, CPT code 22679 - C4-5 structural allograft bone with DBX, CPT code 99036 Attending surgeon: Elia Villegas M.D. Anesthesia: Gen. endotracheal Estimated blood loss: 40 mL Complications: None Instrumentation used: Medtronic Clifford Elite plate, LASR corticocancellous block Indications: The patient is a pleasant 73-year-old lady who presented with neck pain, upper extremity radiation, worsening difficulty with balance and dexterity. Imaging showed C3-4 unstable spondylolisthesis with severe spinal cord compression, no cord signal changes, C4-5 moderate central stenosis with cord indentation, prior C5-6 ACDF. In order to halt the progression of myelopat hy, the patient requested surgical treatment. All risks and benefits of the procedure were explained to the patient. The risks include but are not limited to infection, bleeding, injury to nerves and vessels, vertebral artery injury, spinal cord injury, paralysis, vocal cord paralysis, injury to esophagus, pseudoarthrosis, need for further procedures, adjacent segment degeneration. Procedure: The patient was identified in the preoperative suite using unique patient identifiers. Skin was marked consent was taken and all questions were answered. The patient was then brought back to the operative room and a timeout was performed. General endotracheal anesthesia was given. Intraoperative neuro monitoring leads were applied. The patient was carefully positioned supine on a regular OR table. A lateral view with a C-arm was done to identify the level and to define the incision. The anterior neck was then prepped and draped in the usual fashion. A final timeout was then performed. A transverse skin incision was taken to the left of midline. Previous incisional scar was on the right lower neck. Preoperative ENT consult confirmed good vocal cord movements bilaterally. Subcutaneous tissue was then divided with Bovie. Platysma was identified and cut along the incision with scissors. The fascial interval between the sternocleidomastoid and the larynx was developed. Omohyoid was iden tified and retracted. The esophagus with the larynx was retracted medially to reach the prevertebral fascia. Significant scarring the prevertebral space was noticed. The plate was identified and used to guide level identification. Marker x-ray also confirm levels. Longus coli muscle was elevated on both sides at and above and below C3-5 discs, as well as the C5-6 plate level. Using appropriate removal instruments the locking screws were torn and bone screws were removed, and the plate was removed. Some osteophytes had grown onto the top of the plate which were removed with a rongeur prior to removal of the plate. Adequate hemostasis was achieved with bone wax. Fusion at C5-6 was explored and was found to be solid and well-healed. Self-retaining retractors were then placed. A long handle knife was then used to perform annulotomy at C4-5. Disc fragments were removed with the pituitary. Dickens pins were placed in C4 and C5 for disc distraction. Curettes and bur was utilized to remove cartilage from the endplates. Discectomy was performed laterally up to the uncovertebral joints. Posterior osteophytes were thinned down with the bur and adequate decompression in the central and foraminal areas were performed and PLL was thinned out. Once the disc space was prepared, trials of various sizes were utilized. Thorough irrigation was given. 6 mm LASR cortical cancellous allograft bone large footprint was then fashioned in such a way that concavities were burred out inferiorly and superiorly and half cc of DBX (demineralized bone matrix) was squeezed into the cancellous portion. The graft was then inserted into the C4-5 disc space. The retractors were then repositioned and the procedure was repeated for C3-4 disc with complete discectomy. Graft size was 7 mm at with large footprint at C3-4. The grafts were found to be in good apposition with good pullout strength. A 42 mm Medtronic Clifford Elite plate was then fixed to C3-5 with 15 mm screws. A lateral x-ray was then taken to check the length of the screws. Both AP and lateral x-rays showed good positioning of plate and screws. The locking mechanism over the screw heads was then turned. Thorough irrigation was again given. Hemostasis was achieved. A [place] drain was then inserted. Closure was done with 3-0 Vicryl for the platysma and subcutaneous tissue layers and 4-0 Monocryl for the skin. Closure was done around the drain. Steri-Strips were applied and dressing was done with 4 x 4 gauze and Tegaderm. A cervical collar was then applied. The patient was then woken up from anesthesia extubated and taken to PACU in stable condition. From here, the patient will be transitioned to the floor. Intraoperative neuro monitoring was performed throughout this procedure. Motor evoked potentials were run periodically. All potentials remained at baseline throughout the procedure. I was present for the entire surgery and performed the surgery myself. Wedding Transportation Driver Carolyn Tabares PA-C. My physician school bus driver/teacher assistant was a vital part of this case. They were important in appropriate retraction during the case, and protection of soft tissues during the procedure. Their intimate knowledge of the case and my steps aided in safe and expedient completion of the procedure as well as appropriate position of the patient during the surgery. They were also vital in assisting with closure under my direct supervision. Surgical Findings: See operative note Complications Complications: No
--- NOTE | 2024-09-18 10:25 | OP.PCM_ITS ---
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, myelopathy, prior C5-6 ACDF Post-Operative Diagnosis: Same Surgery/Procedure Performed: C3-5 ACDF, removal of previous hardware distributor sales consultant: Yes Banking Management Consulting Manager: Carolyn Tabares Tasks completed by wellness assistant: Closing, Removing tissue, Implanting device, Hemostasis: Electrocautery and Retracting Type of Anesthesia: General RN Documented Start/Stop Times: Operation Date: 09/18/24 07:30 Case Time Into Pre-Op 09/18/24 06:02 Out of Pre-Op 09/18/24 07:34 Anesthesia Start 09/18/24 07:38 Into Room 09/18/24 07:38 Procedure Start 09/18/24 08:15 Procedure End 09/18/24 10:15 Anesthesia End 09/18/24 10:22 Out of Room 09/18/24 10:22 Procedure Start Time: 08:15 Procedure Stop Time: 10:15 Select all DRAINS/GRAFTS/IMPLANTS that apply: Drains Drain details: Bandar , Graft Graft details: Structural allograft cortical cancellous strut and Implanted device Implanted device details: [employer] [place] Elite plate instrumentation Estimated Blood Loss: 40 cc Specimen collected: No Description of surgery: Preoperative diagnosis: C3-4 spondylolisthesis, 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 Anesthesia: Gen. endotracheal Estimated blood loss: 40 mL Complications: None Instrumentation used: [employer] [place] Elite plate, LASR corticocancellous block Indications: The patient is a pleasant 73-year-old lady who presented with neck pain, upper extremity radiation, worsening difficulty with balance and dexterity. Imaging showed C3-4 unstable spondylolisthesis with severe spinal cord compression, no cord signal changes, C4-5 moderate central stenosis with cord indentation, prior C5-6 ACDF. In order to halt the progression of myelopat hy, the patient requested surgical treatment. All risks and benefits of the procedure were explained to the patient. The risks include but are not limited to infection, bleeding, injury to nerves and vessels, vertebral artery injury, spinal cord injury, paralysis, vocal cord paralysis, injury to esophagus, pseudoarthrosis, need for further procedures, adjacent segment degeneration. Procedure: The patient was identified in the preoperative suite using unique patient identifiers. Skin was marked consent was taken and all questions were answered. The patient was then brought back to the operative room and a timeout was performed. General endotracheal anesthesia was given. Intraoperative neuro monitoring leads were applied. The patient was carefully positioned supine on a regular OR table. A lateral view with a C-arm was done to identify the level and to define the incision. The anterior neck was then prepped and draped in the usual fashion. A final timeout was then performed. A transverse skin incision was taken to the left of midline. Previous incisional scar was on the right lower neck. Preoperative ENT consult confirmed good vocal cord movements bilaterally. Subcutaneous tissue was then divided with Bovie. Platysma was identified and cut along the incision with scissors. The fascial interval between the sternocleidomastoid and the larynx was developed. Omohyoid was iden tified and retracted. The esophagus with the larynx was retracted medially to reach the prevertebral fascia. Significant scarring the prevertebral space was noticed. The plate was identified and used to guide level identification. Marker x-ray also confirm levels. Longus coli muscle was elevated on both sides at and above and below C3-5 discs, as well as the C5-6 plate level. Using appropriate removal instruments the locking screws were torn and bone screws were removed, and the plate was removed. Some osteophytes had grown onto the top of the plate which were removed with a rongeur prior to removal of the plate. Adequate hemostasis was achieved with bone wax. Fusion at C5-6 was explored and was found to be solid and well-healed. Self-retaining retractors were then placed. A long handle knife was then used to perform annulotomy at C4-5. Disc fragments were removed with the pituitary. [place] pins were placed in C4 and C5 for disc distraction. Curettes and bur was utilized to remove cartilage from the endplates. Discectomy was performed laterally up to the uncovertebral joints. Posterior osteophytes were thinned down with the bur and adequate decompression in the central and foraminal areas were performed and PLL was thinned out. Once the disc space was prepared, trials of various sizes were utilized. Thorough irrigation was given. 6 mm LASR cortical cancellous allograft bone large footprint was then fashioned in such a way that concavities were burred out inferiorly and superiorly and half cc of DBX (demineralized bone matrix) was squeezed into the cancellous portion. The graft was then inserted into the C4-5 disc space. The retractors were then repositioned and the procedure was repeated for C3-4 disc with complete discectomy. Graft size was 7 mm at with large footprint at C3-4. The grafts were found to be in good apposition with good pullout strength. A 42 mm [employer] [place] Elite plate was then fixed to C3-5 with 15 mm screws. A lateral x-ray was then taken to check the length of the screws. Both AP and lateral x-rays showed good positioning of plate and screws. The locking mechanism over the screw heads was then turned. Thorough irrigation was again given. Hemostasis was achieved. A [place] drain was then inserted. Closure was done with 3-0 Vicryl for the platysma and subcutaneous tissue layers and 4-0 Monocryl for the skin. Closure was done around the drain. Steri-Strips were applied and dressing was done with 4 x 4 gauze and Tegaderm. A cervical collar was then applied. The patient was then woken up from anesthesia extubated and taken to PACU in stable condition. From here, the patient will be transitioned to the floor. Intraoperative neuro monitoring was performed throughout this procedure. Motor evoked potentials were run periodically. All potentials remained at baseline throughout the procedure. I was present for the entire surgery and performed the surgery myself. Cinetechnician Carolyn Tabares PA-C. My physician diver assistant was a vital part of this case. They were important in appropriate retraction during the case, and protection of soft tissues during the procedure. Their intimate knowledge of the case and my steps aided in safe and expedient completion of the procedure as well as appropriate position of the patient during the surgery. They were also vital in assisting with closure under my direct supervision. Surgical Findings: See operative note Complications Complications: No
--- NOTE | 2024-09-18 10:31 | PCM.POST.ANE ---
Anesthesia: Postop Eval I Current Vital Signs Temperature: 97 F Pulse Rate: 57 Blood Pressure: 96/62 Respiratory Rate: 16 Pulse Ox: 93 Oxygen Delivery Method: Nasal Cannula Oxygen Flow Rate (L/min): 3 Assessment Airway patent: Yes Spontaneous unlabored respirations: Yes Mental status: Awake nausea: No Vomiting: No Anesthesia Complication: No Fluid Hydration Crystalloid volume administer (ml): 1,500 Total IV fluid infused: 1,500 Progress Note Anesthesia document: Postop Eval 1 completed: Yes
[2024-09-18] MEDS: Gabapentin 300 MG Capsule PO ×2 (13:51→21:27)
[2024-09-18] MEDS: Methocarbamol 500 MG Tablet 1000 MG PO ×3 (13:51→20:59)
[2024-09-18] MEDS: dexAMETHasone 4 MG/ML Vial IV ×2 (13:51→18:10)
[2024-09-18] MEDS: Morphine 4 MG/ML Syringe IV ×2 (14:01→18:21)
[2024-09-18] MEDS: 0.9% Saline Lock 10 ML Syringe IV ×2 (15:17→21:30)
[2024-09-18] MEDS: Ketorolac 15 MG/ML Vial IV ×2 (15:17→21:27)
--- NOTE | 2024-09-18 17:14 | POSTOPAN2_ITS ---
Anesthesia Postop Eval I Sum Postop Eval Completion status Anesthesia document: Postop Eval 1 completed: Yes Anesthesia Postop Eval I Summary Anesthesia Postop Eval I Summary: Anesthesia Postop Eval I: Assessment Summary Airway patent Yes 09/18/24 10:32 ASSISTANT FINANCE MANAGER.[email or web address] Spontaneous unlabored Yes 09/18/24 10:32 ASSISTANT FINANCE MANAGER.SOBR respirations Mental status Awake 09/18/24 10:32 ASSISTANT FINANCE MANAGER.SOBR nausea No 09/18/24 10:32 ASSISTANT FINANCE MANAGER.SOBR Vomiting No 09/18/24 10:32 ASSISTANT FINANCE MANAGER.SOBR Anesthesia Postop Eval I: Fluid Summary Crystalloid volume administer 1,500 09/18/24 10:32 ASSISTANT FINANCE MANAGER.SOBR (ml) Colloids volume administered ( ml) Blood Product volume administered (ml) Total IV fluid infused 1,500 09/18/24 10:32 ASSISTANT FINANCE MANAGER.SOBR Anesthesia Postop Eval I: Summary Notes Anesthesia Complication No 09/18/24 10:32 ASSISTANT FINANCE MANAGER.SOBR Anesthesia Complication Comment: Post-operative progress note Anesthesia: Postop Eval II Evaluation Mental status: Awake and Calm Pain Level: 0 nausea: No Vomiting: No Complications Anesthesia Complication: No
--- NOTE | 2024-09-18 17:14 | POSTOPAN2_ITS ---
Anesthesia Postop Eval I Sum Postop Eval Completion status Anesthesia document: Postop Eval 1 completed: Yes Anesthesia Postop Eval I Summary Anesthesia Postop Eval I Summary: Anesthesia Postop Eval I: Assessment Summary Airway patent Yes 09/18/24 10:32 DATA ENTRY OPERATOR.[email or web address] Spontaneous unlabored Yes 09/18/24 10:32 DATA ENTRY OPERATOR.SOBR respirations Mental status Awake 09/18/24 10:32 DATA ENTRY OPERATOR.SOBR nausea No 09/18/24 10:32 DATA ENTRY OPERATOR.SOBR Vomiting No 09/18/24 10:32 DATA ENTRY OPERATOR.SOBR Anesthesia Postop Eval I: Fluid Summary Crystalloid volume administer 1,500 09/18/24 10:32 DATA ENTRY OPERATOR.SOBR (ml) Colloids volume administered ( ml) Blood Product volume administered (ml) Total IV fluid infused 1,500 09/18/24 10:32 DATA ENTRY OPERATOR.SOBR Anesthesia Postop Eval I: Summary Notes Anesthesia Complication No 09/18/24 10:32 DATA ENTRY OPERATOR.SOBR Anesthesia Complication Comment: Post-operative progress note Anesthesia: Postop Eval II Evaluation Mental status: Awake and Calm Pain Level: 0 nausea: No Vomiting: No Complications Anesthesia Complication: No
--- NOTE | 2024-09-18 17:14 | PCM.POSTANE2 ---
Anesthesia Postop Eval I Sum Postop Eval Completion status Anesthesia document: Postop Eval 1 completed: Yes Anesthesia Postop Eval I Summary Anesthesia Postop Eval I Summary: Anesthesia Postop Eval I: Assessment Summary Airway patent Yes 09/18/24 10:32 PUMPER GAUGER APPRENTICE.[email or web address] Spontaneous unlabored Yes 09/18/24 10:32 PUMPER GAUGER APPRENTICE.SOBR respirations Mental status Awake 09/18/24 10:32 PUMPER GAUGER APPRENTICE.SOBR nausea No 09/18/24 10:32 PUMPER GAUGER APPRENTICE.SOBR Vomiting No 09/18/24 10:32 PUMPER GAUGER APPRENTICE.SOBR Anesthesia Postop Eval I: Fluid Summary Crystalloid volume administer 1,500 09/18/24 10:32 PUMPER GAUGER APPRENTICE.SOBR (ml) Colloids volume administered ( ml) Blood Product volume administered (ml) Total IV fluid infused 1,500 09/18/24 10:32 PUMPER GAUGER APPRENTICE.SOBR Anesthesia Postop Eval I: Summary Notes Anesthesia Complication No 09/18/24 10:32 PUMPER GAUGER APPRENTICE.SOBR Anesthesia Complication Comment: Post-operative progress note Anesthesia: Postop Eval II Evaluation Mental status: Awake and Calm Pain Level: 0 nausea: No Vomiting: No Complications Anesthesia Complication: No
--- NOTE | 2024-09-18 17:14 | PCM.POSTANE2 ---
Anesthesia Postop Eval I Sum Postop Eval Completion status Anesthesia document: Postop Eval 1 completed: Yes Anesthesia Postop Eval I Summary Anesthesia Postop Eval I Summary: Anesthesia Postop Eval I: Assessment Summary Airway patent Yes 09/18/24 10:32 AUTOMOTIVE PAINTER HELPER.[email or web address] Spontaneous unlabored Yes 09/18/24 10:32 AUTOMOTIVE PAINTER HELPER.SOBR respirations Mental status Awake 09/18/24 10:32 AUTOMOTIVE PAINTER HELPER.SOBR nausea No 09/18/24 10:32 AUTOMOTIVE PAINTER HELPER.SOBR Vomiting No 09/18/24 10:32 AUTOMOTIVE PAINTER HELPER.SOBR Anesthesia Postop Eval I: Fluid Summary Crystalloid volume administer 1,500 09/18/24 10:32 AUTOMOTIVE PAINTER HELPER.SOBR (ml) Colloids volume administered ( ml) Blood Product volume administered (ml) Total IV fluid infused 1,500 09/18/24 10:32 AUTOMOTIVE PAINTER HELPER.SOBR Anesthesia Postop Eval I: Summary Notes Anesthesia Complication No 09/18/24 10:32 AUTOMOTIVE PAINTER HELPER.SOBR Anesthesia Complication Comment: Post-operative progress note Anesthesia: Postop Eval II Evaluation Mental status: Awake and Calm Pain Level: 0 nausea: No Vomiting: No Complications Anesthesia Complication: No
--- NOTE | 2024-09-18 20:27 | PCM.CONS.GEN ---
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 Villegas 09/18/24 - Management/pain management per primary - PT/OT #DVT ppx: Timing and agent at the discretion of primary Linda Caldwell MD Time spent in the patient's overall evaluation, decision-making process, review of diagnostic data, adjustment of management, discussion with other providers, nursing and ancillary staff involved in patient's care documentation, 21 Minutes HPI Consult Data Date of Consult: 09/18/24 HPI Narrative Reason for Consultation: Medical management HPI Narrative: NARENDRA SWEENEY, is a 73 F with a history of anxiety, hypertension, RA, GERD presented to [facility] 09/18/2024 for C3-5 ACDF and removal of previous hardware for C3-5 disc degeneration with stenosis and myelopathy. Hospitalist consulted for medical management. Patient evaluated at bedside, she is in her cervical collar and reports pain is better than it was preop. She has no chest pain or shortness of breath, no nausea or vomiting. No other new or acute complaints. Last took her methotrexate yesterday. [facility] Medical History Wears glasses Post-menopausal Anxiety Alcohol use Dry skin dermatitis Cancer Numbness and tingling in right hand History of steroid therapy Ambulates with cane Rheumatoid arthritis Low iron Restless legs Back pain Migraine headache Blackout Constipation Difficulty swallowing History of ulceration History of IBS Gastric reflux Non-smoker Shortness of breath on exertion Hoarseness Leg cramps Hx of fracture of pelvis History of edema History of stress test Hypertension Home Medications ?Medication ?Instructions ?Recorded ?Last Taken ?Type alprazolam 0.25 mg tablet (Xanax) 0.25 mg PO QHS PRN anxiety 08/10/24 Unknown History atorvastatin 20 mg tablet (Lipitor) 20 mg PO QHS 05/16/25 Unknown History ferrous fumarate 325 mg (106 mg 325 mg PO QDAY 08/10/24 Unknown History iron) tablet furosemide 20 mg tablet 20 mg PO QAM 08/10/24 Unknown History gabapentin 300 mg capsule 300 mg PO TID 08/10/24 Unknown History lisinopril 5 mg tablet 5 mg PO QDAY 08/10/24 09/18/24 History meloxicam 15 mg tablet 15 mg PO QDAY 08/10/24 09/13/24 History nortriptyline 25 mg capsule 25 mg PO .QHS' 08/10/24 Unknown History omeprazole 40 mg capsule,delayed 40 mg PO QDAY 08/10/24 09/18/24 History release tramadol 50 mg tablet 50 mg PO QDAY PRN pain 08/10/24 Unknown History zoledronic acid 5 mg/100 mL in 1 ea IV .QYEAR 08/10/24 Unknown History mannitol 5 %-water intravenous piggybck (Reclast) methotrexate sodium 2.5 mg tablet 20 mg PO MO 09/04/24 Unknown History Allergy/AdvReac Type Severity Reaction Status Date / Time codeine Allergy Mild Constipatio Verified 09/18/24 06:15 n Surgical History History of lumbar spinal fusion Hx of right cataract extraction Hx of left cataract extraction History of repair of hiatal hernia History of esophagogastroduodenoscopy (EGD) Hx of colonoscopy Hx of bilateral salpingo-oophorectomy History of repair of rectocele Hx of hysterectomy Hx of arthroscopy of shoulder Hx of arthroscopy of shoulder Hx of fusion of cervical spine Hx of foot surgery Hx of total knee arthroplasty Hx of total hip arthroplasty Social History Smoking Status: Never smoker ROS ROS Narrative Patient denies any shortness of breath, chest pain, trouble swallowing or eating, abdominal pain, nausea, has improving pain in her shoulder and her neck, no other new acute complaints Physical Exam Narrative General: Alert, oriented, no apparent distress HEENT: Atraumatic, normocephalic Eyes: extraocular movements grossly intact Neck: In c-collar Respiratory: normal respiratory effort Cardiovascular: no edema appreciated GI: nondistended Extremities: Moving all extremities Neuro: Reports improving symptoms in her right arm Psych: Cooperative Lab / Micro Data 09/07/24 07:03 09/07/24 07:03 Labs: Laboratory Results - last 24 hr 09/18/24 06:45: POC Glucose 111 H Charges/Coding Visit Charges Office Visits / Consults: 77498 OV L3 Est 20min
[2024-09-18] MEDS: Senna/Docusate Sodium 1 Tablet 2 TABLET PO (20:59)
[2024-09-18] MEDS: Atorvastatin Calcium 20 MG Tablet PO (20:59)
[2024-09-18] MEDS: Nortriptyline 25 MG Capsule PO (20:59)
[2024-09-18] MEDS: HYDROcodone Bitartrate/Apap 5/325 Tablet PO (21:27)
[2024-09-19] MEDS: dexAMETHasone 4 MG/ML Vial IV ×2 (00:21→05:27)
[2024-09-19] MEDS: Cefazolin 2 GM in 0.9% Normal Saline (100mL Bag) 100 ML IV (00:21)
[2024-09-19 00:59] VITALS: BP 170/84; PULSE 87; RESP 16; TEMP 36.4; O2SAT 92; BMI 37.9
[2024-09-19] MEDS: HYDROcodone Bitartrate/Apap 5/325 Tablet PO (02:39)
--- NOTE | 2024-09-19 04:30 | RAD_ITS ---
PROCEDURE: CERV SPINE 2 OR 3 VIEWS 09/19/2024 REASON FOR EXAM: S/P CERVICAL FUSION TECHNIQUE: CERV SPINE 2 OR 3 VIEWS COMPARISON: 09/18/2024. FINDINGS: Removal of the previously described anterior cervical fusion metallic hardware at C5-C6. Anterior cervical fusion at C3, C4 and C5 levels in the interim. Unremarkable intervertebral disc spacer at C3-C4 and C4-C5 in the interim. Mild soft tissue edema and swelling. Surgical drain is noted. There are diffuse spondylotic changes. Findings are demonstrated to by diffuse disc space narrowing, osteophyte formation and degenerative endplate sclerosis. There is diffuse facet joint arthropathy with secondary bilateral neural foramina narrowing. No fracture or dislocation is seen. No aggressive lytic or blastic bony lesion is noted. RAD/Cerv Spine 2 or 3 Views IMPRESSION: Removal of the previously described anterior cervical fusion metallic hardware at C5-C6. Anterior cervical fusion at C3, C4 and C5 levels in the interim. Unremarkable intervertebral disc spacer at C3-C4 and C4-C5 in the interim. Mild soft tissue edema and swelling. Surgical drain is noted. [facility]
--- NOTE | 2024-09-19 04:30 | RAD_ITS ---
PROCEDURE: CERV SPINE 2 OR 3 VIEWS 09/19/2024 REASON FOR EXAM: S/P CERVICAL FUSION TECHNIQUE: CERV SPINE 2 OR 3 VIEWS COMPARISON: 09/18/2024. FINDINGS: Removal of the previously described anterior cervical fusion metallic hardware at C5-C6. Anterior cervical fusion at C3, C4 and C5 levels in the interim. Unremarkable intervertebral disc spacer at C3-C4 and C4-C5 in the interim. Mild soft tissue edema and swelling. Surgical drain is noted. There are diffuse spondylotic changes. Findings are demonstrated to by diffuse disc space narrowing, osteophyte formation and degenerative endplate sclerosis. There is diffuse facet joint arthropathy with secondary bilateral neural foramina narrowing. No fracture or dislocation is seen. No aggressive lytic or blastic bony lesion is noted. RAD/Cerv Spine 2 or 3 Views IMPRESSION: Removal of the previously described anterior cervical fusion metallic hardware at C5-C6. Anterior cervical fusion at C3, C4 and C5 levels in the interim. Unremarkable intervertebral disc spacer at C3-C4 and C4-C5 in the interim. Mild soft tissue edema and swelling. Surgical drain is noted. Reading [facility]
[2024-09-19 04:59] VITALS: BMI 37.9
[2024-09-19 05:00] VITALS: BP 164/70; PULSE 81; RESP 16; TEMP 36.9; O2SAT 94
[2024-09-19] MEDS: Gabapentin 300 MG Capsule PO (05:27)
[2024-09-19] MEDS: Ketorolac 15 MG/ML Vial IV (05:27)
[2024-09-19 05:40] LABS: Absolute Lymphocyte Count 0.82 X10^3/uL (0.83-4.51); Absolute Neutrophil Count 13.5 X10^3/uL (2.0-7.7); Basophil# 0.02 X10^3/uL; Basophil% 0.1 % (0-1); Hematocrit 32.2 % (37-47); Hemoglobin 10.5 g/dL (12.0-15.0); Lymphocyte # 0.82 X10^3/ul (0.83-4.51); Lymphocyte % 5.5 % (19-41); Mean Corp Hgb Conc 32.6 g/dL (32-36); Mean Corpuscular Hgb 30.2 pg (27.0-32.0); Mean Corpuscular Volume 92.5 fL (81-99); Mean Platelet Vol. 9.7 fl (6.2-12.0); Monocyte% 2.7 % (0-10); NRBC Flagged by Analyzer 0 % (0-5); Neutrophil # 13.47 X10^3/uL (2.7-7.7); Platelet Count 331 K/mm3 (150-450); RBC Distribution Width CV 17.7 % (11.6-14.6); RBC Distribution Width SD 60.2 fl (35.1-43.9); Red Blood Count 3.48 M/mm3 (4.2-5.4); White Blood Count 14.8 K/mm3 (4.4-11.0)
[2024-09-19 06:40] LABS: Anion Gap 11 (5-15); BUN 20 mg/dL (4-19); Calcium,Total 8.9 mg/dL (7.6-11.0); Carbon Dioxide 24.3 mmol/L (21.0-32.0); Chloride 100 mmol/L (98-108); Creatinine, Serum 0.84 mg/dL (0.70-1.20); EST Glomerular Filtration Rate 74 (>60); Estimated Creatinine Clearance 62.23 ml/min (50-250); Glucose 157 mg/dL (70-99); Potassium 4.6 mmol/L (3.3-5.1); Sodium Level 135 mmol/L (133-145)
[2024-09-19 08:48] VITALS: BP 154/87; PULSE 80; RESP 18; TEMP 36.6; O2SAT 97; BMI 37.9
[2024-09-19] MEDS: Furosemide 20 MG Tablet PO (09:48)
[2024-09-19] MEDS: Meloxicam 15 MG Tablet PO (09:48)
[2024-09-19] MEDS: Methocarbamol 500 MG Tablet 1000 MG PO (09:48)
[2024-09-19] MEDS: Pantoprazole Sodium 40 MG Tablet PO (09:48)
[2024-09-19] MEDS: Senna/Docusate Sodium 1 Tablet 2 TABLET PO (09:49)
[2024-09-19] MEDS: Lisinopril 5 MG Tablet PO (09:49)
--- NOTE | 2024-09-19 10:02 | PN.ORTHO_ITS ---
Subjective Subjective Patient seen at the bedside today. Patient is postop day 1 C3-5 ACDF with removal of prior hardware. Patient is doing well after the surgery with her pain well-tolerated. Patient denies any significant dysphagia. The patient's voice was hoarse. Patient has been up and walking around her room with a standard walker. She has walked with therapy who is cleared her for home discharge. Seen with Dr. Villegas. Objective Data Objective Data Vital Signs: Vital Signs Temp Pulse Resp BP Pulse Ox O2 Del Method O2 Flow Rate 97.8 F 80 18 154/87 H 97 Room Air 2 09/19/24 08:48 09/19/24 08:48 09/19/24 08:48 09/19/24 08:48 09/19/24 08:48 09/19/24 08:48 09/19/24 05:00 Oxygen Flow Rate (L/min) 2 Oxygen Delivery Method Room Air Weight: 200 lb 13.458 oz Body Mass Index (BMI) 37.9 Intake & Output: Intake and Output for Last 24 Hours 09/17/24 09/18/24 09/19/24 23:59 23:59 23:59 Intake Total 1590 / 1590 Output Total 50 / 50 Balance 1540 / 1540 Lab / Micro Data 09/19/24 05:05 09/19/24 05:05 Labs: Laboratory Results - last 24 hr 09/19/24 05:05: WBC 14.8 H, RBC 3.48 L, Hgb 10.5 L, Hct 32.2 L, MCV 92.5, MCH 30.2, MCHC 32.6, RDW Std Deviation 60.2 H, RDW Coeff of Pedro 17.7 H, Plt Count 331, MPV 9.7, Immature Gran % (Auto) 0.700, Neut % (Auto) 91.0 H, Lymph % (Auto) 5.5 L, [place] % (Auto) 2.7, Eos % (Auto) 0.0, Baso % (Auto) 0.1, Absolute Neuts (auto) 13.5 H, Absolute Lymphs (auto) 0.82 L, Nucleated RBC % 0, Sodium 135, Potassium 4.6, Chloride 100, Carbon Dioxide 24.3, Anion Gap 11, BUN 20 H, Creatinine 0.84, Estim Creat Clear Calc 62.23, Est GFR (MDRD) Non-Af 74, B UN/Creatinine Ratio 24.0 H, Glucose 157 H, Calcium 8.9 Micro: Microbiology 09/07/24 07:03 Swab (Method) Nasal Screen MRSA/MSSA - Final Radiography Diagnostic Testing: Radiology Impression Cervical Spine X-Ray 09/18/24 07:54 IMPRESSION: Anterior intervertebral fusion at C5-C6. Unremarkable metallic hardware at C5-C6. Grade 1 anterolisthesis of C3 on C4. Reading Location: [place] [address] Cervical Spine X-Ray 09/19/24 04:30 IMPRESSION: Removal of the previously described anterior cervical fusion metallic hardware at C5-C6. Anterior cervical fusion at C3, C4 and C5 levels in the interim. Unremarkable intervertebral disc spacer at C3-C4 and C4-C5 in the interim. Mild soft tissue edema and swelling. Surgical drain is noted. Reading Location: [place] [address] Physical Exam Narrative Neurological examination of the upper extremities shows 5X5 power. Normal sensation across all dermatomes. Drain removed. No significant drainage from the drain. Tegaderm and gauze applied over the incision. Patient's collar was removed to remove the drain and then reapplied. Const alert, oriented x3 and no apparent distress Assessment & Plan Assessment/Plan (1) Status post cervical spinal fusion: PLAN: Plan Postop day 1 C3-5 ACDF with removal of prior hardware. Obtained and reviewed x-rays today which show hardware and bone graft in good position. Patient is cleared for home discharge by PT/OT. Home-going meds include hydrocodone?acetaminophen, meloxicam, methocarbamol, senna. Patient reports that she has meloxicam at home and has plenty, encouraged her to take her home meloxicam and then she can call our office and let us know if she needs a refill. OARRS reviewed. Reviewed restrictions of no bending, lifting, twisting. Reviewed and educated on the proper wear of the cervical collar. Reviewed how to adjust the collar to a proper height. Reviewed and educated on the use of the incentive spirometer. She will follow-up in 2 weeks at the clinic. All questions answered. Patient is in agreement.
--- NOTE | 2024-09-19 11:05 | CASEMGMT ---
COLEEN GUTHRIE Assessment: Face to Face with pt for initial transition planning/care coordination assessment. COLEEN GUTHRIE introduced self and role at [facility], pt voices understanding and consents to assessment. Pt is A&O x4 and answers all questions appropriately at this time. Pt sitting up in chair with at bedside. Care providers, pharmacy, and demographics verified/updated. Admitting Dx: anterior cervical fusion Strata Score: 1 PCP:Vic Specialists:Bakari, ortho; Phan, rheum; endo but cannot recall name Preferred Pharmacy: [facility] Retail Insurance: Karen HEIN Prescription Benefit: yes LNOK: Aakash Arguelles, Living Arrangements: Pt lives with in a single story home with 2 steps to enter. Pt reports she is I in ADL/IADLs typically at home. Pt states can assist as needed. Pt denies concerns at home. Transportation: Pt drives self and denies concerns with transportation. Pt will transport pt until she can drive again. DME:[facility]SC, [facility], walker, shower chair HHC/SNF: Pt has had HHC in the past but does not recall the name of the agency. Pt denies SNF stays. Pt states no concerns with going home at time of dc. Pt ready to ambulate the halls. No therapy recommended. Pt states no further concerns/needs. CM to follow. Advised pt to ask CM if any further questions/concerns/needs arise, voices understanding. Pt Goal: Home Plan: Home Louise HORNE CM
--- NOTE | 2024-09-19 11:05 | CASEMGMT ---
COLEEN GUTHRIE Assessment: Face to Face with pt for initial transition planning/care coordination assessment. COLEEN GUTHRIE introduced self and role at [facility], pt voices understanding and consents to assessment. Pt is A&O x4 and answers all questions appropriately at this time. Pt sitting up in chair with at bedside. Care providers, pharmacy, and demographics verified/updated. Admitting Dx: anterior cervical fusion Strata Score: 1 PCP:Vic Specialists:Bakari, ortho; Phan, rheum; endo but cannot recall name Preferred Pharmacy: [facility] Retail Insurance: Karen HEIN Prescription Benefit: yes LNOK: Aakash Arguelles, Living Arrangements: Pt lives with in a single story home with 2 steps to enter. Pt reports she is I in ADL/IADLs typically at home. Pt states can assist as needed. Pt denies concerns at home. Transportation: Pt drives self and denies concerns with transportation. Pt will transport pt until she can drive again. DME:BSC, [facility], walker, shower chair HHC/SNF: Pt has had HHC in the past but does not recall the name of the agency. Pt denies SNF stays. Pt states no concerns with going home at time of dc. Pt ready to ambulate the halls. No therapy recommended. Pt states no further concerns/needs. CM to follow. Advised pt to ask CM if any further questions/concerns/needs arise, voices understanding. Pt Goal: Home Plan: Home Louise HORNE CM
--- NOTE | 2024-09-19 11:48 | CASEMGMT ---
RUVALCABA Met with patient to complete RUVALCABA form. RUVALCABA form and its content were verbally explained and patient's questions were answered to the best of my ability.? Patient voiced understanding and signed RUVALCABA form.? Patient provided a copy of signed RUVALCABA form and original placed in patient's chart.? Patient had no further questions. Linda Mendoza, Discharge Planning Asst
== END 2024-09-19 12:50 | disposition home or self-care (01) ==
LOC: SDC 10:49 → MS3 10:49
PROVIDERS: Anesthesiology; Student in an Organized Health Care Education/Training Program; Admitting Provider Orthopaedic Surgery Orthopaedic Surgery of the Spine; PCP Family Medicine; Referring Provider Orthopaedic Surgery Orthopaedic Surgery of the Spine; Visit Provider Orthopaedic Surgery Orthopaedic Surgery of the Spine
PROC: (CPT 22551; principal; 2024-09-18 07:00)
DX: M48.02 Spinal stenosis, cervical region (principal); M06.9 Rheumatoid arthritis, unspecified; G99.2 Myelopathy in diseases classified elsewhere; K21.9 Gastro-esophageal reflux disease without esophagitis; Z98.1 Arthrodesis status; M81.0 Age-related osteoporosis without current pathological fracture; I10 Essential (primary) hypertension; Z79.83 Long term (current) use of bisphosphonates; M43.12 Spondylolisthesis, cervical region; F41.9 Anxiety disorder, unspecified; M50.01 Cervical disc disorder with myelopathy, high cervical region; M54.12 Radiculopathy, cervical region; Z79.899 Other long term (current) drug therapy; F32.A Depression, unspecified
CPT/HCPCS: 22551; 22552; 22845; 20931; 00670; 20680; 36415; 72040; 76000; 80048; 82962; 83036; 83735; 85025; 86703; 86706; 86708; 86803; 86850; 86900; 86901; 87081; 93005; 94668; 96365; 96375; 96376; 97162; 97166; 97530; 99221; C1713; A4216; G0378; J3475

== ENCOUNTER → 2024-12-28 | Outpatient (CLI) | payer MEDICARE, BC, SELFPAY ==
--- NOTE | 2024-12-28 09:52 | MRI_ITS ---
PROCEDURE: SPINE LUMBAR W/WO CONTRAST 12/28/2024 REASON FOR EXAM: PAIN, STENOSIS, L>R LEG PAIN TECHNIQUE: Procedure Code: [id number] Modality: MR Procedure: SPINE LUMBAR W/WO CONTRAST Multiplanar and multisequence images were obtained without and with intravenous gadolinium-based contrast administration. CONTRAST: Clariscan VOLUME: 18 mL FINDINGS: Vertebrae: The vertebral bodies are preserved in height and signal. Alignment: Retrolisthesis T12 on L1 by 2 mm and L1 on L2 by 2 mm and L2 on L3 by 2 mm. Conus Medullaris: Unremarkable. T11-T12: Disc desiccation. Mild bilateral foramina stenosis and mild canal stenosis. T12-L1: Disc bulge. Facet joint arthropathy. Moderate bilateral foramina stenosis. Moderate canal stenosis. L1-L2: Disc desiccation. Facet joint arthropathy. Severe bilateral foramina stenosis. Moderate canal stenosis. L2-L3 disc desiccation. Facet joint arthropathy. Severe bilateral foramina stenosis. Severe canal stenosis. L3-L4: Disc desiccation. Facet joints arthropathy. Severe bilateral foramina stenosis. Mild canal stenosis. L4-L5: Status post laminectomies. Facet joint arthropathy. No foraminal stenosis. L5-S1: Facet joint arthropathy. Mild bilateral foramina stenosis. No canal stenosis. Sacrum: Severe left more than right arthritic changes of the left more than right sacroiliac joints. Postcontrast images: Unremarkable. MRI/Spine Lumbar W/WO Contrast IMPRESSION: Status post laminectomies and posterior fusion at L4-L5. No abnormal enhanceme nt. Multilevel degenerate changes predominantly at severe bilateral foramina stenos is at L1-L2, L2-L3 and L3-L4. Severe canal stenosis at L2-L3. Moderate canal stenosis at T12-L1, L1-L2. 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 Reading Location: [id number]
== END | disposition home or self-care (01) ==
LOC: MRI 09:47
PROVIDERS: PCP Family Medicine; Referring Provider Student in an Organized Health Care Education/Training Program; Visit Provider Student in an Organized Health Care Education/Training Program
DX: M48.062 Spinal stenosis, lumbar region with neurogenic claudication (principal); M51.362 Other intervertebral disc degeneration, lumbar region with discogenic back pain and lower extremity pain; Z98.1 Arthrodesis status
CPT/HCPCS: 72158; A9575

== ENCOUNTER → 2025-01-23 | Outpatient (CLI) | payer MEDICARE, BC, SELFPAY ==
--- NOTE | 2025-01-23 16:37 | CT_ITS ---
PROCEDURE: CT/Spine Lumbar without Contrast
== END | disposition home or self-care (01) ==
LOC: CT 16:33
PROVIDERS: PCP Family Medicine; Referring Provider Orthopaedic Surgery Orthopaedic Surgery of the Spine; Visit Provider Orthopaedic Surgery Orthopaedic Surgery of the Spine
DX: Z98.1 Arthrodesis status (principal)
CPT/HCPCS: 72131